=== PATIENT | female | born 1960 | race Caucasian/White ===

== ENCOUNTER → 2016-02-21 | Outpatient (CLI) | payer OTHER ==
[~2016-02-21] MED LIST: ASPI81TA28 PO; AUG0.05O4 EXT; CITA10TA4 PO; CTP/1 PO; ESCI10TA17 PO; INSU100I SC; INSU100I23 SC; INSU100I23 SQ; LEVO88TA3 PO; LISI40TA PO; LORA-741 PO; MAGN400T6 PO; METF1000 PO; METO25TA56 PO; SIMV40TA2 PO; SPR/100 PO
--- NOTE | 2016-02-21 13:29 | DIAGNOSTIC IMAGING REPORT ---
LEFT KNEE 1 OR 2 VIEWS ROUTINE, RIGHT KNEE 1 OR 2 VIEWS ROUTINE CLINICAL HISTORY: BILATERAL KNEE PAIN, LOW BACK PAIN COMPARISON STUDY: None. FINDINGS: No fracture or dislocation within the right or left knee. No knee effusion. Soft tissues are unremarkable. Mild vascular calcifications at the right popliteal artery. Minor cartilage space narrowing within the bilateral knees. IMPRESSION: No fracture or dislocation within the right or left knee. Mild arthritic change. Electronically signed by: Omid Pedroza M.D. 02/21/2016 1:28 PM
--- NOTE | 2016-02-21 13:43 | DIAGNOSTIC IMAGING REPORT ---
L-SPINE MIN 4 VIEWS ROUTINE CLINICAL HISTORY: Low back pain COMPARISON STUDY: No previous studies for comparison. FINDINGS: There are surgical clips within the right upper quadrant. There are 5 lumbar type vertebral bodies present. There are minor degenerative changes. No fractures or subluxations are visualized. No destructive lesions are visualized on conventional radiographic imaging. IMPRESSION: Mild degenerative changes. No fractures, subluxations, or destructive lesions are visualized Electronically signed by: Ross Calix M.D. 02/21/2016 1:40 PM
== END | disposition home or self-care (01) ==
LOC: C.RAD1850 12:50
PROVIDERS: ATTEND Internal Medicine
DX: M25.561 Pain in right knee (principal); M25.562 Pain in left knee; M54.5 Low back pain

== ENCOUNTER → 2016-02-21 | Outpatient (CLI) | payer OTHER ==
[2016-02-21 17:42] LABS: LYME DISEASE AB IGG NEG (NEG); LYME DISEASE AB IGM NEG (NEG)
== END | disposition home or self-care (01) ==
LOC: C.LABBFT 11:46
PROVIDERS: ATTEND Internal Medicine
DX: M79.1 Myalgia (principal); M25.561 Pain in right knee

== ENCOUNTER → 2016-03-18 | Outpatient (CLI) | payer OTHER ==
[2016-03-18 13:55] LABS: ESTIMATED AVERAGE GLUCOSE 192 mg/dl; HA1C FLAG Normal (Normal)
[2016-03-18 16:37] LABS: ALB/GLOB RATIO 0.9 (0.9-2); ALKALINE PHOSPHATASE 94 U/L (45-117); ALT/SGPT 23 U/L (12-78); AST/SGOT 10 U/L (15-37); BLOOD UREA NITROGEN 20 mg/dl (7-18); BUN/CREATININE RATIO 19.5 (10-20); CALCIUM 9.6 mg/dl (8.5-10.1); CARBON DIOXIDE 23 mmol/L (21-32); CHLORIDE 105 mmol/L (98-107); CHOLESTEROL 271 mg/dl (0-200); CHOLESTEROL/HDL RATIO 5.4; GLUCOSE 164 mg/dl (70-99); HDL CHOLESTEROL 50 mg/dl; POTASSIUM 4.5 mmol/L (3.5-5.1); SODIUM 140 mmol/L (136-145); TRIGLYCERIDES 415 mg/dl (0-150)
== END | disposition home or self-care (01) ==
LOC: C.LAB 12:27
PROVIDERS: ATTEND Internal Medicine
DX: E11.65 Type 2 diabetes mellitus with hyperglycemia (principal)

== ENCOUNTER → 2016-05-30 | Outpatient (CLI) | payer OTHER ==
[~2016-05-30] MED LIST changes: -AUG0.05O4 EXT; -CITA10TA4 PO; -INSU100I23 SQ
[2016-06-03 22:57] LABS: ANTI-CENTROMERE AB <1.0 NEG AI (<1.0 NEG); ANTI-SS-A <1.0 NEG AI (<1.0 NEG); ANTI-SS-B <1.0 NEG AI (<1.0 NEG); CYCLIC CITRULLINATED PEPT IGG <16 UNITS (<20); DNA ds CRITHIDIA NEGATIVE (NEGATIVE); GAMMA GLOBULIN 1.2 G/DL (0.8-1.7); IGG SERUM 1127 mg/dL (694-1618); Sm Antibody <1.0 NEG AI (<1.0 NEG); TOTAL PROTEIN 7.6 G/DL (6.2-8.3)
== END | disposition home or self-care (01) ==
LOC: C.LAB1850 08:52
PROVIDERS: ATTEND Internal Medicine Rheumatology
DX: M54.5 Low back pain (principal); R70.0 Elevated erythrocyte sedimentation rate; D89.2 Hypergammaglobulinemia, unspecified

== ENCOUNTER → 2016-08-15 | Outpatient (CLI) | payer OTHER ==
[2016-08-15 12:18] LABS: HEMATOCRIT 40.4 % (37-47); MEAN CELL VOLUME 86.9 fL (80-100); MEAN CORPUSCULAR HEMOGLOBIN 27.7 pg (25-34); MEAN CORPUSCULAR HGB CONC 31.9 g/dl (32-36); MEAN PLATELET VOLUME 11.2 fL (7.4-10.4); PLATELET COUNT 280 K/uL (130-400); RED BLOOD COUNT 4.65 M/uL (4.2-5.4)
[2016-08-15 12:45] LABS: ALT/SGPT 25 U/L (12-78); BLOOD UREA NITROGEN 14 mg/dl (7-18); CARBON DIOXIDE 27 mmol/L (21-32); CHLORIDE 106 mmol/L (98-107); CHOLESTEROL 143 mg/dl (0-200); ESTIMATED AVERAGE GLUCOSE 163 mg/dl; GLUCOSE 113 mg/dl (70-99); HA1C FLAG Normal (Normal); POTASSIUM 3.6 mmol/L (3.5-5.1); SODIUM 140 mmol/L (136-145)
[2016-08-15 12:55] LABS: ALB/GLOB RATIO 0.9 (0.9-2); ALKALINE PHOSPHATASE 101 U/L (45-117); AST/SGOT 15 U/L (15-37); CHOLESTEROL/HDL RATIO 3.2; HDL CHOLESTEROL 45 mg/dl; LDL CHOLESTEROL CALCULATED 61 mg/dl; TRIGLYCERIDES 184 mg/dl (0-150); VERY LOW DENSITY LIPOPROT CALC 37 mg/dl
[2016-08-15 13:14] LABS: RATIO 21.6 mcg/mg (0-30.0)
== END | disposition home or self-care (01) ==
LOC: C.LAB 11:37
PROVIDERS: ATTEND Internal Medicine
DX: E11.65 Type 2 diabetes mellitus with hyperglycemia (principal)

== ENCOUNTER 2016-11-21 09:20 | Observation (INO) | payer OTHER ==
[2016-11-21] VITALS (7 sets, daily range): BP systolic 119–219; BP diastolic 80–110; PULSE 53–112; TEMP 36.6–36.8; O2SAT 95–98; BMI 39.7
[~2016-11-21] VITALS: Ht 154.9 cm; Wt 94.8 kg
[2016-11-21] MEDS ORDERED: LEVO88TA3 PO (10:12)
[2016-11-21] MEDS ORDERED: METO25TA56 PO (10:12)
[2016-11-21] MEDS ORDERED: SPR/100 PO (10:12)
[2016-11-21] MEDS ORDERED: INSU100I23 SC (10:12)
[2016-11-21] MEDS ORDERED: CTP/1 PO (10:12)
[2016-11-21] MEDS ORDERED: ESCI10TA17 PO (10:12)
[2016-11-21] MEDS ORDERED: INSU100I SC (10:12)
[2016-11-21] MEDS ORDERED: SIMV40TA2 PO (10:12)
[2016-11-21] MEDS ORDERED: MAGN400T6 PO (10:12)
[2016-11-21] MEDS ORDERED: LORA-741 PO (10:12)
[2016-11-21] MEDS ORDERED: LISI40TA PO (10:12)
[2016-11-21] MEDS ORDERED: ASPI81TA28 PO (10:12)
[2016-11-21] MEDS ORDERED: METF1000 PO (10:12)
[2016-11-21 10:34] LABS: BASO % 0.2 %; BASO ABS # 0.02 K/uL (0-0.2); COMPLETE YES; EOS % 0.8 %; HEMATOCRIT 42.6 % (37-47); IG% 0.3 %; LYMPH % 18.9 %; LYMPH ABS # 2.12 K/uL (1.2-3.4); MEAN CELL VOLUME 84.9 fL (80-100); MEAN CORPUSCULAR HEMOGLOBIN 28.5 pg (25-34); MEAN CORPUSCULAR HGB CONC 33.6 g/dl (32-36); MONO % 5.2 %; NEUT % 74.6 %; PLATELET COUNT 357 K/uL (130-400); RED BLOOD COUNT 5.02 M/uL (4.2-5.4); WHITE BLOOD COUNT 11.24 K/uL (4.8-10.8)
[2016-11-21 10:40] LABS: INR 0.9 (0.9-1.1); PARTIAL THROMBOPLASTIN RATIO 0.9; PROTHROMBIN TIME (PATIENT) 10.1 SECONDS (9.0-12.0)
[2016-11-21 10:43] LABS: ALT/SGPT 24 U/L (12-78); AST/SGOT 8 U/L (15-37); BLOOD UREA NITROGEN 13 mg/dl (7-18); BUN/CREATININE RATIO 10.6 (10-20); CALCIUM 9.7 mg/dl (8.5-10.1); CARBON DIOXIDE 24 mmol/L (21-32); CHLORIDE 103 mmol/L (98-107); GLUCOSE 209 mg/dl (70-99); SODIUM 136 mmol/L (136-145)
[2016-11-21 10:54] LABS: ALKALINE PHOSPHATASE 97 U/L (45-117)
--- NOTE | 2016-11-21 10:54 | DIAGNOSTIC IMAGING REPORT ---
CHEST ONE VIEW PORTABLE CLINICAL HISTORY: 56 years-old Female presenting with CHEST PAIN. TECHNIQUE: Portable upright AP view of the chest was obtained. COMPARISON: 11/15/2010. FINDINGS: Chronic silhouette enlarged. Lungs and pleural spaces clear. Osseous structures normal. Upper abdomen normal. IMPRESSION: 1. Mild cardiomegaly. Otherwise no acute cardiopulmonary disease. Electronically signed by: Eh Barahona M.D. 11/21/2016 10:53 AM Dictated Date/Time: 11/21/2016 10:44 AM
[2016-11-21] MEDS ORDERED: OPTIRAY 320 IV PRN (12:00)
--- NOTE | 2016-11-21 12:13 | DIAGNOSTIC IMAGING REPORT ---
CT ANGIOGRAM OF THE CHEST CLINICAL HISTORY: Atypical chest pain. COMPARISON STUDY: Chest CT dated 11/15/2010. Chest x-ray dated 11/21/2016. TECHNIQUE: Following the IV administration of 83 cc of Optiray 320, CT angiogram of the chest was performed from the upper abdomen to the thoracic inlet utilizing the pulmonary embolus protocol. Images are reviewed in the axial, sagittal, and coronal planes. 3-D MIPS images are created and assessed. IV contrast was administered without complication. The examination is degraded by large body habitus and by streak artifact from the body wall abutting the CT gantry. The examination is also degraded by motion artifact. A dose lowering technique was utilized adhering to the principles of ALARA. CT DOSE: 710.02 mGy.cm FINDINGS: Thyroid: Imaged portions of the thyroid gland are normal in size and attenuation. Thoracic aorta: There is mild atherosclerotic calcification of the thoracic aorta, which is normal in caliber and demonstrates standard 3-vessel arch anatomy. No dissection is seen. Pulmonary vasculature: The pulmonary trunk is dilated, measuring 3.3 cm in transverse diameter. This suggests pulmonary artery hypertension. There are no filling defects identified in main, lobar, or proximal segmental pulmonary branches to suggest pulmonary embolus. Evaluation of the peripheral vessels is degraded by streak and motion artifact. Heart: The heart is mildly enlarged and there is trace pericardial effusion. Lungs and pleural spaces: Evaluation of the lung parenchyma is degraded by motion artifact. The trachea and central airways are clear. No airspace consolidation or pleural effusion is identified. Mediastinum: There is no mediastinal lymphadenopathy. Sarah: Clear. Axillae: There is no axillary lymphadenopathy. Upper abdomen: Partially visualized upper abdominal viscera is within normal limits. Skeletal structures: The skeletal structures are osteopenic. Mild degenerative change is noted throughout the thoracic spine. No lytic or blastic bony lesions are seen. IMPRESSION: 1. Streak and motion artifact degraded examination. 2. There is no evidence of central pulmonary embolus in the main, lobar, or proximal segmental pulmonary arteries. 3. Cardiac enlargement with evidence of pulmonary artery hypertension. 4. There is no airspace consolidation or pleural effusion Electronically signed by: Lalito Cisse M.D. 11/21/2016 12:12 PM Dictated Date/Time: 11/21/2016 12:06 PM
--- NOTE | 2016-11-21 12:31 | EMERGENCY ROOM VISIT NOTE ---
History Report prepared by Ashleighibgustavo: Alexander Swain Under the Supervision of: Dr. Declan Medina M.D. First contact with patient: 10:09 Chief Complaint: CHEST PAIN Stated Complaint: PAIN AND TIGHTNESS IN CHEST Nursing Triage Summary: CP for a few days. Started on right side, now has moved to left side. Was at [facility] for observation and d/c yesterday. CP developed again this AM. History of Present Illness The patient is a 56 year old female who presents to the Emergency Room with complaints of intermittent chest pain beginning last night. She describes her pain as a feeling of "pressure". She states that most of her pain is on the right side and radiates to the center of her chest. The patient states that her pain is generally present for a few minutes at a time. She also complains of back pain and occasional diaphoresis. She denies any nausea, vomiting, lightheadedness, fever, or cough. She denies any recent falls or injury. The patient was recently admitted to the hospital for similar symptoms and was discharged yesterday. She has no cardiac history of history of blood clots. She is not on any blood thinners. Source of History: patient, other Onset: last night Position: chest (right) Quality: pressure Timing: intermittent Associated Symptoms: + diaphoresis (occasional), + back pain, No fevers, No cough, No nausea, No vomiting Note: The patient denies any lightheadedness. Review of Systems See HPI for pertinent positives & negatives. A total of 10 systems reviewed and were otherwise negative. Past Medical & Surgical Medical Problems: (1) Diabetes (2) HTN (hypertension) Old medical records were reviewed. Nurse's notes were reviewed and I agree with. Family History No pertinent family history stated. Social History Smoking Status: Current Every Day Smoker Drug Use: none Housing Status: lives alone Current/Historical Medications Scheduled Aspirin (Aspirin Ec), 81 MG PO DAILY Clonidine Hcl (Catapres), 0.1 MG PO BID Escitalopram (Lexapro), 10 MG PO DAILY Insulin Glargine (Basaglar Kwikpen), 65 UNITS SC HS Insulin Lispro (Human) (Humalog), 15 UNITS SC TID Levothyroxine Sodium (Levothyroxine Sodium), 88 MCG PO QAM Lisinopril (Zestril), 40 MG PO DAILY Magnesium Oxide (Mag-Ox), 400 MG PO BID Metformin Hcl (Glucophage), 1,000 MG PO BID Metoprolol Tartrate (Lopressor) (Lopressor), 25 MG PO BID Simvastatin (Zocor), 40 MG PO QPM Spironolactone (Aldactone), 50 MG PO BID Scheduled PRN Lorazepam (Ativan), 0.5 MG PO TID PRN for Anxiety Allergies Coded Allergies: No Known Allergies (Unverified , 11/21/16) Physical Exam Vital Signs Date Time Temp Pulse Resp B/P (MAP) Pulse Ox O2 Delivery O2 Flow Rate FiO2 11/21/16 13:22 73 11/21/16 13:15 95 Room Air 11/21/16 13:03 75 156/90 95 Room Air 11/21/16 12:22 79 17 177/100 97 Room Air 11/21/16 11:05 95 16 175/87 96 Room Air 11/21/16 09:54 Room Air 11/21/16 09:51 104 11/21/16 09:24 36.6 97 20 192/91 95 Room Air Physical Exam General: Well developed well nourished in no acute distress, breathing comfortably on room air. Normal speech HEENT: Normal cephalic atraumatic. Pupils are equal round and reactive to light. Sclerae anicteric. Extraocular movements are intact. Oropharynx is pink with moist mucous membranes. No swelling of the mouth lips or tongue. Neck: Supple with a midline trachea. No meningeal signs or stiffness, no JVD or bruits. No Stridor. Chest: Clear to auscultation bilaterally. No wheezes or rhonchi. No increased work of breathing. Heart: regular rate and rhythm. Abdomen: Soft nontender, nondistended without rebound guarding or rigidity. Extremities: No cyanosis clubbing or edema. No calf tenderness or assymetry Spine/Back. Non tender to palpation. No CVA tenderness Skin: Good turgor without rashes. Neurologic exam: Cranial nerves two through 12 are intact. Motor and sensation are intact and symmetrical throughout. Medical Decision & Procedures ER Provider Diagnostic Interpretation: Radiology results as stated below per my review and radiologist interpretation: CHEST ONE VIEW PORTABLE FINDINGS: Chronic silhouette enlarged. Lungs and pleural spaces clear. Osseous structures normal. Upper abdomen normal. IMPRESSION: 1. Mild cardiomegaly. Otherwise no acute cardiopulmonary disease. Electronically signed by: Eh Barahona M.D. 11/21/2016 10:[address] ANGIOGRAM OF THE CHEST FINDINGS: Thyroid: Imaged portions of the thyroid gland are normal in size and attenuation. Thoracic aorta: There is mild atherosclerotic calcification of the thoracic aorta, which is normal in caliber and demonstrates standard 3-vessel arch anatomy. No dissection is seen. Pulmonary vasculature: The pulmonary trunk is dilated, measuring 3.3 cm in transverse diameter. This suggests pulmonary artery hypertension. There are no filling defects identified in main, lobar, or proximal segmental pulmonary branches to suggest pulmonary embolus. Evaluation of the peripheral vessels is degraded by streak and motion artifact. Heart: The heart is mildly enlarged and there is trace pericardial effusion. Lungs and pleural spaces: Evaluation of the lung parenchyma is degraded by motion artifact. The trachea and central airways are clear. No airspace consolidation or pleural effusion is identified. Mediastinum: There is no mediastinal lymphadenopathy. Sarah: Clear. Axillae: There is no axillary lymphadenopathy. Upper abdomen: Partially visualized upper abdominal viscera is within normal limits. Skeletal structures: The skeletal structures are osteopenic. Mild degenerative change is noted throughout the thoracic spine. No lytic or blastic bony lesions are seen. IMPRESSION: 1. Streak and motion artifact degraded examination. 2. There is no evidence of central pulmonary embolus in the main, lobar, or proximal segmental pulmonary arteries. 3. Cardiac enlargement with evidence of pulmonary artery hypertension. 4. There is no airspace consolidation or pleural effusion Electronically signed by: Lalito Cisse M.D. 11/21/2016 12:12 PM Laboratory Results 11/21/16 10:00 Red Blood Count 5.02, Mean Corpuscular Volume 84.9, Mean Corpuscular Hemoglobin 28.5, Mean Corpuscular Hemoglobin Concent 33.6, Mean Platelet Volume 12.0, Neutrophils (%) (Auto) 74.6, Lymphocytes (%) (Auto) 18.9, Monocytes (%) (Auto) 5.2, Eosinophils (%) (Auto) 0.8, Basophils (%) (Auto) 0.2, Neutrophils # (Auto) 8.39, Lymphocytes # (Auto) 2.12, Monocytes # (Auto) 0.59, Eosinophils # (Auto) 0.09, Basophils # (Auto) 0.02 11/21/16 10:00 Test 10/5/17 10:00 11/21/16 10:32 White Blood Count 11.24 K/uL (4.8-10.8) Red Blood Count 5.02 M/uL (4.2-5.4) Hemoglobin 14.3 g/dL (12.0-16.0) Hematocrit 42.6 % (37-47) Mean Corpuscular Volume 84.9 fL (80-100) Mean Corpuscular Hemoglobin 28.5 pg (25-34) Mean Corpuscular Hemoglobin Concent 33.6 g/dl (32-36) Platelet Count 357 K/uL (130-400) Mean Platelet Volume 12.0 fL (7.4-10.4) Neutrophils (%) (Auto) 74.6 % Lymphocytes (%) (Auto) 18.9 % Monocytes (%) (Auto) 5.2 % Eosinophils (%) (Auto) 0.8 % Basophils (%) (Auto) 0.2 % Neutrophils # (Auto) 8.39 K/uL (1.4-6.5) Lymphocytes # (Auto) 2.12 K/uL (1.2-3.4) Monocytes # (Auto) 0.59 K/uL (0.11-0.59) Eosinophils # (Auto) 0.09 K/uL (0-0.5) Basophils # (Auto) 0.02 K/uL (0-0.2) RDW Standard Deviation 41.2 fL (36.4-46.3) RDW Coefficient of Variation 13.4 % (11.5-14.5) Immature Granulocyte % (Auto) 0.3 % Immature Granulocyte # (Auto) 0.03 K/uL (0.00-0.02) Prothrombin Time 10.1 SECONDS (9.0-12.0) Prothromb Time International Ratio 0.9 (0.9-1.1) Activated Partial Thromboplast Time 22.2 SECONDS (21.0-31.0) Partial Thromboplastin Ratio 0.9 Anion Gap 9.0 mmol/L (3-11) Est Creatinine Clear Calc Drug Dose 54.5 ml/min Estimated GFR () 58.1 Estimated GFR (Non- 50.1 BUN/Creatinine Ratio 10.6 (10-20) Calcium Level 9.7 mg/dl (8.5-10.1) Total Bilirubin 0.4 mg/dl (0.2-1) Direct Bilirubin < 0.1 mg/dl (0-0.2) Aspartate Amino Transf (AST/SGOT) 8 U/L (15-37) Alanine Aminotransferase (ALT/SGPT) 24 U/L (12-78) Alkaline Phosphatase 97 U/L (45-117) Total Creatine Kinase 38 U/L (26-192) Creatine Kinase MB < 0.5 ng/ml (0.5-3.6) Creatine Kinase MB Ratio (0-3.0) Total Protein 8.2 gm/dl (6.4-8.2) Albumin 3.9 gm/dl (3.4-5.0) Lipase 118 U/L (73-393) Thyroid Stimulating Hormone (TSH) 1.250 uIu/ml (0.300-4.500) Bedside Troponin I < 0.030 ng/ml (0-0.045) Laboratory studies as stated above per my review. ECG Indication: chest pain Rate (beats per minute): 93 Rhythm: normal sinus Findings: no ectopy, other (Non-specific ST abnormality. No ST segment elevations. ) Comparison ECG Date: no prior available ED Course 1010: Past medical records reviewed. The patient was evaluated in room B3B, and a complete history and physical examination were performed. 1132: I reassessed the patient. She is still having pain. She agreed to a CT scan. 1210: Upon reevaluation, the patient is resting comfortably. I discussed the results and treatment plan with the patient. She verbalized agreement of the treatment plan. The patient will be evaluated for further management. Medical Decision Differentials include, but are not limited to; acute coronary syndrome, arrhythmia, hypertensive emergency, GERD, PE, CHF, and electrolyte or metabolic abnormality. This patient comes in as described above. She's had chest pain starting today. Talked to the patient and she's had this off and on for the last week or so. She was actually hospitalized in [place] for the last 2 days and was discharged yesterday apparently they did not do any provocative testing. She does not think do a a CAT scan of her chest either. She appears okay of present and has no pain. IV access established. EKG and chest x-ray obtained. She has nothing to suggest acute coronary syndrome or arrhythmia. Chest x- ray was unremarkable. I did a chest CT. there is no evidence of PE or other pathology. She does have several cardiac risk factors. I do think she needs to be further ruled out for an acute coronary syndrome have likely stress testing. I have consulted the [facility] hospitalist and she was seen in the ER by Dr. Ring.. Medication Reconcilliation Current Medication List: was personally reviewed by me Blood Pressure Screening Patient's blood pressure: Elevated blood pressure Blood pressure disposition: Referred to PCP Consults Time Called: 1154 Consulting Physician: Dr. Ring -[facility] Returned Call: [phone] Discussed the patient's case. The patient will be evaluated for further management. Impression Primary Impression: Left sided chest pain Scribe Attestation The scribe's documentation has been prepared under my direction and personally reviewed by me in its entirety. I confirm that the note above accurately reflects all work, treatment, procedures, and medical decision making performed by me. Departure Information Dispostion Being Evaluated By Hospitalist Referrals Prashant Pina M.D. (PCP) Patient Instructions My [facility]
[2016-11-21] MEDS ORDERED: GLUCOSE 40% GEL 15 GM TUBE PO PRN (13:30)
[2016-11-21] MEDS ORDERED: LORAZEPAM 0.5 MG TAB PO PRN (13:30)
[2016-11-21] MEDS ORDERED: MAGNESIUM HYDROXIDE SUSP 30 ML UDC PO PRN (13:30)
[2016-11-21] MEDS ORDERED: ONDANSETRON INJ 2 MG/ML 2 ML VIAL IV PRN (13:30)
[2016-11-21] MEDS ORDERED: DEXTROSE 50% 50 ML SYR IV PRN (13:30)
[2016-11-21] MEDS ORDERED: NITROGLYCERIN 0.4 MG SL PER TAB CHARGE SL PRN (13:30)
[2016-11-21] MEDS ORDERED: GLUCAGON FOR INJ 1 MG VIAL SQ PRN (13:30)
[2016-11-21] MEDS ORDERED: GLUCOSE 10 TABS/TUBE PO PRN (13:30)
--- NOTE | 2016-11-21 13:50 | History and Physical ---
History & Physical Date & Time of Service: Nov 21, 2016 at 13:30 Chief Complaint: Pain And Tightness In Chest Primary Care Physician: Prashant Pina M.D. History of Present Illness Source: patient 56 y/o F c/o chest pain. Pt states she has been having chest pain on and off since . She was hospitalized 11/04-11/11 for hypoK and elevated BP at [facility]. She was then readmitted for observation there from for chest pain. At that time, it was more to the R of her sternum. At time of d/c yesterday she had not had further chest pain. She states she tried to sleep last night, but was restless. She woke up around 2-3am with chest pain that started to the R of her sternum but then moved more towards the L and her back. Prior to , pt has not had chest pain. She feels her breathing is "tight" but no SOB and states that she has no issues walking up stairs. Pt denies fever, abd pain, n/v/c/d, LE pain or swelling. Pt states that they checked her labs at [place] and she was told it was fine. She does not believe she had any sort of ECHO or stress testing during her admissions or in her hx. She does not have chest pain at time of exam. She states that she could walk on a treadmill for a stress test. Pt states she is very concerned about her BS. She states that many changes have been made to her regimen between the hospitalization and her f/u PCP visit. She states she checks her sugars daily and "they are up and down". She is most concerned because her BS was 39 over the weekend (this was at home). She states it is hard to control when she drinks soda. Pt states that she had been trying to quit smoking recently. She has not had a cigarette since her admission starting 11/04. She states she did not have a nicotine patch during her admission and is fine without this. Past Medical/Surgical History Medical Problems: (1) Diabetes Status: Chronic (2) HTN (hypertension) Status: Chronic Depression/anxiety Hypothyroid Hyperlipidemia Recent admission for hypoK and HTN Recent observation 10/20-10/21 for chest pain Family History Denies hx of AK Social History Smoking Status: Former Smoker (quit mid-October) Alcohol Use: occasionally (maybe 1 drink/month) Drug Use: none Multi-Drug Resistant Organisms History of MDRO: No Allergies Coded Allergies: No Known Allergies (Unverified , 11/21/16) Home Medications Scheduled Aspirin (Aspirin Ec), 81 MG PO DAILY Clonidine Hcl (Catapres), 0.1 MG PO BID Escitalopram (Lexapro), 10 MG PO DAILY Insulin Glargine (Basaglar Kwikpen), 65 UNITS SC HS Insulin Lispro (Human) (Humalog), 15 UNITS SC TID Levothyroxine Sodium (Levothyroxine Sodium), 88 MCG PO QAM Lisinopril (Zestril), 40 MG PO DAILY Magnesium Oxide (Mag-Ox), 400 MG PO BID Metformin Hcl (Glucophage), 1,000 MG PO BID Metoprolol Tartrate (Lopressor) (Lopressor), 25 MG PO BID Simvastatin (Zocor), 40 MG PO QPM Spironolactone (Aldactone), 50 MG PO BID Scheduled PRN Lorazepam (Ativan), 0.5 MG PO TID PRN for Anxiety Review of Systems Pertinent positives and negatives reviewed in HPI--all others negative Physical Exam Vital Signs Date Time Temp Pulse Resp B/P (MAP) Pulse Ox O2 Delivery O2 Flow Rate FiO2 11/21/16 13:22 73 11/21/16 13:03 75 156/90 95 Room Air 11/21/16 12:22 79 17 177/100 97 Room Air 11/21/16 11:05 95 16 175/87 96 Room Air 11/21/16 09:54 Room Air 11/21/16 09:51 104 11/21/16 09:24 36.6 97 20 192/91 95 Room Air General Appearance: no apparent distress, + obese Head: normocephalic, atraumatic Eyes: normal inspection, EOMI ENT: hearing grossly normal Neck: supple Respiratory/Chest: normal breath sounds, no respiratory distress Cardiovascular: regular rate, rhythm, no edema Abdomen/GI: non tender, soft Extremities/Musculoskelatal: no calf tenderness, no pedal edema Neurologic/Psych: alert, normal mood/affect, oriented x 3 Skin: normal color, warm/dry Diagnostics Laboratory Results Results Past 24 Hours Test 11/21/16 10:00 11/21/16 10:32 Range/Units White Blood Count 11.24 4.8-10.8 K/uL Red Blood Count 5.02 4.2-5.4 M/uL Hemoglobin 14.3 12.0-16.0 g/dL Hematocrit 42.6 37-47 % Mean Corpuscular Volume 84.9 80-100 fL Mean Corpuscular Hemoglobin 28.5 25-34 pg Mean Corpuscular Hemoglobin Concent 33.6 32-36 g/dl Platelet Count 357 130-400 K/uL Mean Platelet Volume 12.0 7.4-10.4 fL Neutrophils (%) (Auto) 74.6 % Lymphocytes (%) (Auto) 18.9 % Monocytes (%) (Auto) 5.2 % Eosinophils (%) (Auto) 0.8 % Basophils (%) (Auto) 0.2 % Neutrophils # (Auto) 8.39 1.4-6.5 K/uL Lymphocytes # (Auto) 2.12 1.2-3.4 K/uL Monocytes # (Auto) 0.59 0.11-0.59 K/uL Eosinophils # (Auto) 0.09 0-0.5 K/uL Basophils # (Auto) 0.02 0-0.2 K/uL RDW Standard Deviation 41.2 36.4-46.3 fL RDW Coefficient of Variation 13.4 11.5-14.5 % Immature Granulocyte % (Auto) 0.3 % Immature Granulocyte # (Auto) 0.03 0.00-0.02 K/uL Prothrombin Time 10.1 9.0-12.0 SECONDS Prothromb Time International Ratio 0.9 0.9-1.1 Activated Partial Thromboplast Time 22.2 21.0-31.0 SECONDS Partial Thromboplastin Ratio 0.9 Sodium Level 136 136-145 mmol/L Potassium Level 4.0 3.5-5.1 mmol/L Chloride Level 103 98-107 mmol/L Carbon Dioxide Level 24 21-32 mmol/L Anion Gap 9.0 3-11 mmol/L Blood Urea Nitrogen 13 7-18 mg/dl Creatinine 1.20 0.60-1.20 mg/dl Est Creatinine Clear Calc Drug Dose 54.5 ml/min Estimated GFR () 58.1 Estimated GFR (Non- 50.1 BUN/Creatinine Ratio 10.6 10-20 Random Glucose 209 70-99 mg/dl Calcium Level 9.7 8.5-10.1 mg/dl Total Bilirubin 0.4 0.2-1 mg/dl Direct Bilirubin < 0.1 0-0.2 mg/dl Aspartate Amino Transf (AST/SGOT) 8 15-37 U/L Alanine Aminotransferase (ALT/SGPT) 24 12-78 U/L Alkaline Phosphatase 97 45-117 U/L Total Creatine Kinase 38 26-192 U/L Creatine Kinase MB < 0.5 0.5-3.6 ng/ml Creatine Kinase MB Ratio 0-3.0 Total Protein 8.2 6.4-8.2 gm/dl Albumin 3.9 3.4-5.0 gm/dl Lipase 118 73-393 U/L Thyroid Stimulating Hormone (TSH) 1.250 0.300-4.500 uIu/ml Bedside Troponin I < 0.030 0-0.045 ng/ml Microbiology Results 11/21/16 Blood Culture, Received Pending 11/21/16 Blood Culture, Received Pending Diagnostic Radiology CXR neg for acute Impression Assessment and Plan 56 y/o F who was admitted for observation on 11/21 for chest pain. Chest pain: recent obs for same at [place], d/c 11/20 Pain is different at this time Trop neg, serials pending If neg, would proceed with stress ECHO as this was not done with prior hospitalizations per pt EKG WNL CTA neg for PE, concern for pulm HTN which can be further delineated with ECHO DM: SSI with HS glargine as at home A1c pending DM educator c/s pending given pt's current confusion about home regimen Notes that BS is hardest to control with soda and I did advise her regarding soda use and DM HTN: recent admission for uncontrolled HTN Monitor on home meds HypoK: recent admission for this, WNL now Monitor Hypothyroid: TSH WNL continue home meds Hyperlipidemia: continue home meds Lipids pending Depression/anxiety: continue home meds Other: Full code DM/AHA diet SCDs and ambulation for DVT proph given likely short duration of admission Level of Care Telemetry Resuscitation Status FULL RESUSCITATION VTE Prophylaxis VTE Risk Assessment Done? Y/N: Yes Risk Level: Low
[2016-11-21] MEDS ORDERED: ACETAMINOPHEN 325 MG TAB ONE (14:18)
[2016-11-21] MEDS: METFORMIN HCL 500 MG TAB PO SCH (17:18)
[2016-11-21] MEDS: SPIRONOLACTONE 100 MG TAB PO SCH (17:20)
[2016-11-21] MEDS: INSULIN ASPART 100 UNITS/ML 3 ML PEN SC SCH ×2 (17:55→20:39)
[2016-11-21] MEDS ORDERED: INFLUENZA ADMINISTRATION CHARGE ONE (18:00)
[2016-11-21] MEDS ORDERED: INFLUENZA VIRUS QUAD VACCINE 0.5 ML SYR IM. ONE (18:00)
[2016-11-21] MEDS: METOPROLOL TARTRATE 25 MG TAB PO SCH (19:38)
[2016-11-21] MEDS: CLONIDINE HCL 0.1 MG TAB PO SCH (19:39)
[2016-11-21] MEDS: MAGNESIUM OXIDE 400 MG TAB PO SCH (19:40)
[2016-11-21] MEDS ORDERED: SIMVASTATIN 40 MG TAB PO SCH (21:00)
[2016-11-21] MEDS ORDERED: INSULIN GLARGINE SOLOSTAR 100 UNITS/ML 3 ML PEN SC SCH (21:00)
[2016-11-21] MEDS: ACETAMINOPHEN 325 MG TAB PO PRN (21:01)
[2016-11-22] VITALS (7 sets, daily range): BP systolic 116–193; BP diastolic 77–92; PULSE 67–89; TEMP 36.7–37; O2SAT 96–98; Ht 154.9 cm; Wt 94.8 kg
[2016-11-22] MEDS ORDERED: HydrALAZINE HCL 20 MG/ML VIAL IV. PRN (00:15)
[2016-11-22] MEDS: LORAZEPAM 0.5 MG TAB PO PRN ×2 (00:15→14:38)
[2016-11-22] MEDS ORDERED: METOPROLOL TARTRATE 1 MG/ML VIAL IV. PRN (00:15)
[2016-11-22] MEDS ORDERED: METOPROLOL TARTRATE 1 MG/ML VIAL IV PRN (01:00)
[2016-11-22] MEDS ORDERED: LEVOTHYROXINE 88 MCG TAB PO SCH (06:30)
[2016-11-22 07:22] LABS: BUN/CREATININE RATIO 13.6 (10-20); CALCIUM 9.9 mg/dl (8.5-10.1); CREATININE 1.2 mg/dl (0.60-1.20); POTASSIUM 4.1 mmol/L (3.5-5.1)
[2016-11-22 07:24] LABS: CHOLESTEROL/HDL RATIO 2.5
[2016-11-22] MEDS: SPIRONOLACTONE 100 MG TAB PO SCH ×2 (08:06→17:45)
[2016-11-22] MEDS: MAGNESIUM OXIDE 400 MG TAB PO SCH (08:06)
[2016-11-22] MEDS: METFORMIN HCL 500 MG TAB PO SCH ×2 (08:07→17:46)
[2016-11-22] MEDS: METOPROLOL TARTRATE 25 MG TAB PO SCH (08:07)
[2016-11-22] MEDS: CLONIDINE HCL 0.1 MG TAB PO SCH (08:07)
[2016-11-22] MEDS: ACETAMINOPHEN 325 MG TAB PO PRN (08:08)
[2016-11-22] MEDS: INSULIN ASPART 100 UNITS/ML 3 ML PEN SC SCH ×3 (08:13→17:49)
[2016-11-22] MEDS ORDERED: ESCITALOPRAM OXALATE 10 MG TAB PO SCH (09:00)
[2016-11-22] MEDS ORDERED: ASPIRIN 81 MG ECTAB PO SCH (09:00)
[2016-11-22] MEDS ORDERED: LISINOPRIL 40 MG TAB PO SCH (09:00)
[2016-11-22] MEDS ORDERED: PERFLUTREN LIPID MICROSPHERE (DEFINITY) IV ONE (11:12)
--- NOTE | 2016-11-22 12:01 | EXERCISE STRESS ECHO ---
*NOTICE TO RECEIVING CONSTITUTION PARTY AGENCY This information is strictly Confidential and protected under [place] law. [place] law prohibits you from making any further disclosure of this information unless further disclosure is expressly permitted by the written consent of the person to whom it pertains or is authorized by law. A general authorization for the release of medical or other information is not sufficient for this purpose. Hospital accepts no responsibility if the information is made available to any other person, INCLUDING THE PATIENT. Interpretation Summary * Name: ELIAN SORENSEN Study Date: 11/22/2016 09:41 AM BP: 146/86 mmHg * Patient Location: [facility]\S\N284\S\2 HR: 64 * : 1960 (M/d/yyy) Gender: Female Height: 61 in * Age: 56 yrs Ethnicity: [place] Weight: 209 lb * Ordering Physician: Leslie Ring * Referring Physician: Self, Referred * Performed By: Angela Phillips RDCS * * Reason For Study: CHEST PAIN * BSA: 1.9 m2 * -- Conclusions -- * Stress Echo: * 1. Nondiagnostic stress echo images as target heart rate was not attained. There were no ischemic changes noted at 71% MPHR. Cannot rule out ischemic changes at faster heart rates. * 2. Nondiagnostic exercise ECG as target heart rate was not attained. * 3. Hypertensive blood pressure response to exercise. Diastolic blood pressure increased to 109 mmHg. * 4. No arrhythmia. * 5. Study terminated due to dyspnea. No chest pain reported. * 6. Poor exercise tolerance. * 7. Technically difficult study, enhanced with IV Definity. * Echo: * 1. Normal left ventricular size and systolic function. EF 60-65%. No regional wall motion abnormalities. Mild concentric left ventricular hypertrophy. Type 1 diastolic dysfunction. * 2. No significant valvular abnormalities. Procedure Details * A contrast injection of Definity was performed to improve assessment of LV function. * Contrast was injected into an intravenous site in the right arm. * One vial of Definity ultrasound contrast was diluted in normal saline to a total volume of 10 ml. A total of '4' ml of solution was administered during imaging. * Lot # [id number] of Definity utilized for procedure. * Expiration date DEC 04. * The attending nurse who injected the contrast agent was JAZ HAQ RN. Left Ventricle * The left ventricle is normal in size. * There is mild concentric left ventricular hypertrophy. * Ejection Fraction = 60-65%. * Left ventricular systolic function is normal. * Resting wall motion: Normal. Stress wall motion: Appropriate increase in Left ventricular systolic function and decrease in cavity size. No stress induced segmental wall motion abnormalities. * The left ventricular ejection fraction increases normally with stress. The left ventricular end-systolic cavity size reduces post-stress (normal response). The left ventricular wall motion with stress is normal. Right Ventricle * The right ventricle is normal in size and function. * The right ventricular systolic function is normal as assessed by tricuspid annular plane systolic excursion (TAPSE) (normal >1.5 cm). Atria * The left atrial size is normal. * Right atrial size is normal. * There is no evidence of atrial septal defect, but resolution does not allow assessment for a patent foramen ovale. Mitral Valve * The mitral valve is grossly normal. * There is no mitral valve stenosis. * Significant mitral regurgitation is absent. Tricuspid Valve * The tricuspid valve is not well visualized, but is grossly normal. * There is no tricuspid stenosis. * Significant tricuspid regurgitation is absent. Aortic Valve * The aortic valve is trileaflet. * No hemodynamically significant valvular aortic stenosis. * No aortic regurgitation is present. Pulmonic Valve * The pulmonary valve is inadequately visualized, but the Doppler data is adequate for interpretation. * Trace pulmonic valvular regurgitation. Great Vessels * The aortic root is normal size. * Ascending aorta of normal dimension * Normal IVC size and inspiratory collapse. Pericardium * There is no pericardial effusion. Stress Parameters * NSR at 68 bpm. * Stress ECG: No ST changes. No arrhythmias. * T-wave inversion noted with exercise in leads II, III, aVF, V3 - V6. * The stress portion of this study was personally supervised by the undersigned interpreting physician. * Rest heart rate was '64' BPM. * Rest blood pressure was '146/86 mmHg' * Maximum heart rate achieved was 117 bpm. * Maximum heart rate was 71 % of maximum age-predicted heart rate. * Total exercise time was '3:15' * Maximum blood pressure was '182/109 mmHg' * Maximum exercise MET level achieved was '4.8' METS * Exercise was terminated due to 'dyspnea' Left Ventricular Diastolic Function * Grade I diastolic dysfunction, (abnormal relaxation pattern). MMode 2D Measurements and Calculations IVSd 1.3 cm IVSs 2.1 cm LVIDd 3.7 cm LVIDs 2.3 cm LVPWd 1.3 cm LVPWs 1.8 cm IVS/LVPW 0.98 FS 37.0 % EDV(Teich) 56.4 ml ESV(Teich) 18.1 ml EF(Teich) 67.8 % EDV(cubed) 48.7 ml ESV(cubed) 12.2 ml EF(cubed) 75.0 % % IVS thick 63.7 % % LVPW thick 42.0 % LV mass(C)d 158.2 grams LV mass(C)dI 82.2 grams/m\S\2 LV mass(C)s 187.7 grams LV mass(C)sI 97.5 grams/m\S\2 SV(Teich) 38.2 ml SI(Teich) 19.9 ml/m\S\2 SV(cubed) 36.5 ml SI(cubed) 19.0 ml/m\S\2 Ao root diam 3.0 cm Ao root area 7.3 cm\S\2 LA dimension 2.9 cm asc Aorta Diam 2.3 cm LA/Ao 0.96 LVAd ap4 28.2 cm\S\2 LVLd ap4 7.1 cm EDV(MOD-sp4) 91.0 ml EDV(sp4-el) 95.1 ml LVAs ap4 13.9 cm\S\2 LVLs ap4 5.2 cm ESV(MOD-sp4) 30.4 ml ESV(sp4-el) 31.1 ml EF(MOD-sp4) 66.6 % EF(sp4-el) 67.3 % LVAd ap2 29.1 cm\S\2 LVLd ap2 7.5 cm EDV(MOD-sp2) 93.9 ml EDV(sp2-el) 96.3 ml LVAs ap2 17.4 cm\S\2 LVLs ap2 6.3 cm ESV(MOD-sp2) 40.0 ml ESV(sp2-el) 41.0 ml EF(MOD-sp2) 57.4 % EF(sp2-el) 57.5 % LVLd %diff 2.1 % EDV(MOD-bp) 96.8 ml LVLs %diff 16.5 % ESV(MOD-bp) 38.0 ml EF(MOD-bp) 60.7 % SV(MOD-sp4) 60.6 ml SI(MOD-sp4) 31.5 ml/m\S\2 SV(MOD-sp2) 53.9 ml SI(MOD-sp2) 28.0 ml/m\S\2 SV(MOD-bp) 58.8 ml SI(MOD-bp) 30.6 ml/m\S\2 SV(sp4-el) 64.0 ml SI(sp4-el) 33.2 ml/m\S\2 SV(sp2-el) 55.4 ml SI(sp2-el) 28.8 ml/m\S\2 Doppler Measurements and Calculations MV E max darrell 50.4 cm/sec MV A max darrell 60.1 cm/sec MV E/A 0.84 MV dec time 0.31 sec Ao V2 max 149.9 cm/sec Ao max PG 9.0 mmHg Ao max PG (full) 4.6 mmHg LV V1 max PG 4.4 mmHg LV V1 max 104.5 cm/sec TV E max darrell 43.2 cm/sec
--- NOTE | 2016-11-22 15:25 | Discharge Instructions ---
Discharge Instructions Date of Service Nov 22, 2016. Admission Reason for Admission: Left Sided Chest Pain Discharge Discharge Diagnosis / Problem: chest pain, negative stress test for heart attack or strain Discharge Goals Goal(s): Diagnostic testing, Therapeutic intervention Activity Recommendations Activity Limitations: resume your previous activity . Current Hospital Diet Patient's current hospital diet: AHA Diet (Heart Healthy), Diabetes Type 2 Diet Discharge Diet Recommended Diet: Low Sodium Diet (2gm Na), Diabetes Type 2 Diet Pending Studies Studies pending at discharge: no Laboratory Results Hemoglobin A1c Test 11/22/16 06:27 Range/Units Estimated Average Glucose 171 mg/dl Hemoglobin A1c 7.6 H 4.5-5.6 % Lipid Panel Test 11/22/16 06:27 Range/Units Triglycerides Level 209 H 0-150 mg/dl Cholesterol Level 129 0-200 mg/dl HDL Cholesterol 52 mg/dl Cholesterol/HDL Ratio 2.5 LDL Cholesterol, Calculated 35 mg/dl Medical Emergencies . Who to Call and When: Medical Emergencies: If at any time you feel your situation is an emergency, please call 911 immediately. . Non-Emergent Contact Non-Emergency issues call your: Primary Care Provider Call Non-Emergent contact if: temperature is above 101, your pain is unusual for you . . "Provider Documentation" section prepared by Remy Samson. . Patrol Officer Recommendations Patrol Officer Recommendations: Please follow up with Dr Pina to continue to work on reducing your cardiovascular risk factors, these should first include stopping smoking and having better control of your diabetes, eat a healthy low salt diet and avoid caffiene. These maneuvers may have a good impact on reducing your blood pressure VTE Core Measure Inpt VTE Proph given/why not?: Unfractionated heparin SQ
--- NOTE | 2016-11-22 15:28 | Discharge Instructions ---
Discharge Instructions Date of Service Nov 22, 2016. Admission Reason for Admission: Left Sided Chest Pain Discharge Discharge Diagnosis / Problem: chest pain, negative stress test Discharge Goals Goal(s): Diagnostic testing, Therapeutic intervention Activity Recommendations Activity Limitations: resume your previous activity . Instructions / Follow-Up Instructions / Follow-Up follow up with Dr Pina 11/25/16 Current Hospital Diet Patient's current hospital diet: AHA Diet (Heart Healthy), Diabetes Type 2 Diet Discharge Diet Recommended Diet: AHA Diet (Heart Healthy), Diabetes Type 2 Diet Pending Studies Studies pending at discharge: no Laboratory Results Hemoglobin A1c Test 11/22/16 06:27 Range/Units Estimated Average Glucose 171 mg/dl Hemoglobin A1c 7.6 H 4.5-5.6 % Lipid Panel Test 11/22/16 06:27 Range/Units Triglycerides Level 209 H 0-150 mg/dl Cholesterol Level 129 0-200 mg/dl HDL Cholesterol 52 mg/dl Cholesterol/HDL Ratio 2.5 LDL Cholesterol, Calculated 35 mg/dl Medical Emergencies . Who to Call and When: Medical Emergencies: If at any time you feel your situation is an emergency, please call 911 immediately. . Non-Emergent Contact Non-Emergency issues call your: Primary Care Provider Call Non-Emergent contact if: temperature is above 101, your pain is unusual for you . . "Provider Documentation" section prepared by Remy Samson. . VTE Core Measure Inpt VTE Proph given/why not?: Unfractionated heparin SQ
--- NOTE | 2016-11-22 18:37 | Discharge Summary ---
Discharge Summary Date of Service Nov 22, 2016. Discharge Summary Admission Date: Nov 21, 2016 at 13:28 Discharge Date: Nov 22, 2016 Discharge Disposition: Home with services Principal Diagnosis: non ischemic chest pain Procedures: stress echo, did not reach 85% mphr, but did not have any RWMA and did have good augmentation of contractility, stopped due to deconditioning Medication Reconciliation Continued Medications: Aspirin (Aspirin Ec) 81 Mg Tab 81 MG PO DAILY Clonidine Hcl (Catapres) 0.1 Mg Tab 0.1 MG PO BID, TAB Escitalopram (Lexapro) 10 Mg Tab 10 MG PO DAILY, TAB Insulin Glargine (Basaglar Kwikpen) 100 Unit/Ml Inj 65 UNITS SC HS Insulin Lispro (Human) (Humalog) 100 Unit/Ml Inj 15 UNITS SC TID Levothyroxine Sodium (Levothyroxine Sodium) 88 Mcg Tab 88 MCG PO QAM for 90 Days, #90 TAB 3 Refills Lisinopril (Zestril) 40 Mg Tab 40 MG PO DAILY, TAB Lorazepam (Ativan) 0.5 Mg Tab 0.5 MG PO TID PRN for Anxiety, TAB Magnesium Oxide (Mag-Ox) 400 Mg Tab 400 MG PO BID, TAB Metformin Hcl (Glucophage) 1,000 Mg Tab 1000 MG PO BID, TAB Metoprolol Tartrate (Lopressor) (Lopressor) 25 Mg Tab 25 MG PO BID, TAB Simvastatin (Zocor) 40 Mg Tab 40 MG PO QPM, TAB Spironolactone (Aldactone) 100 Mg Tab 50 MG PO BID, TAB Discharge Exam Review of Systems: Constitutional: No fever, No chills Respiratory: No cough, No sputum, No shortness of breath, No dyspnea on exertion Cardiovascular: No chest pain, No orthopnea, No edema Abdomen: No pain, No nausea, No diarrhea Physical Exam: General Appearance: WD/WN, + mild distress Neck: supple, no JVD Respiratory/Chest: chest non-tender, lungs clear, normal breath sounds Cardiovascular: regular rate, rhythm, no murmur Extremities: no pedal edema, normal range of motion Neurologic/Psychiatric: alert, oriented x 3 Hospital Course 56 y/o F presents with chest pain, has negative troponins, history of moderately controlled DM and smoking Chest pain: negative troponins, stress ECHO no RWMA, good contractility augmentation CTA neg for PE, concern for pulm HTN . I did speak to Dr Pina and have appointment made for next week DM: SSI with HS glargine as at home and metformin, given education for better diet A1c 7.6 DM educator c/s pending given pt's current confusion about home regimen HypoKalemia, replete Hypothyroid: TSH WNL Hyperlipidemia:will need to control for cardiovascular risk reduction tobacco cessation counselling Depression/anxiety: may play a role in chest pain Total Time Spent: Greater than 30 minutes This includes examination of the patient, discharge planning, medication reconciliation, and communication with other providers. Discharge Instructions Please refer to the electronic Patient Visit Report (Discharge Instructions) for additional information.
== END 2016-11-22 18:02 | disposition home or self-care (01) ==
LOC: C.EDB 09:21 → C.MED 13:28 → ENRESERV 13:48
PROVIDERS: ADMIT Family Medicine; ATTEND Internal Medicine
DX: R07.89 Other chest pain (principal); I10 Essential (primary) hypertension; E11.9 Type 2 diabetes mellitus without complications; E03.9 Hypothyroidism, unspecified; E78.5 Hyperlipidemia, unspecified; E87.6 Hypokalemia; F32.9 Major depressive disorder, single episode, unspecified; Z87.891 Personal history of nicotine dependence; Z79.82 Long term (current) use of aspirin; Z79.4 Long term (current) use of insulin

== ENCOUNTER → 2017-01-08 | Outpatient (CLI) | payer OTHER ==
[~2017-01-08] MED LIST changes: +OPTIRAY 320 IV PRN
--- NOTE | 2017-01-08 14:32 | DIAGNOSTIC IMAGING REPORT ---
CT HEAD COMBO CT DOSE: 1459.56 mGycm TECHNIQUE: Noncontrast images were obtained through the brain in the axial plane. The sequence was repeated following administration of 95 Optiray 320. A dose lowering technique was utilized adhering to the principles of ALARA. HISTORY: R41.82 Change in mental status COMPARISON: None. FINDINGS: No intra or extra-axial mass lesions are visualized. There is no CT evidence of acute cortical infarction. There is no evidence of midline shift. There is no acute hemorrhage. No calvarial fractures are visualized. There is no evidence of pathologic ventricular dilatation. There is no evidence of acute sinusitis Postcontrast images reveal no pathologically enhancing masses. IMPRESSION: Normal head CT for age. Electronically signed by: Ross Calix M.D. 01/08/2017 2:31 PM Dictated Date/Time: 01/08/2017 2:29 PM
== END | disposition home or self-care (01) ==
LOC: C.CTS 13:55
PROVIDERS: ATTEND Internal Medicine
DX: R41.82 Altered mental status, unspecified (principal)

== ENCOUNTER 2017-02-20 11:14 | Inpatient (IN) | payer OTHER ==
[~2017-02-20] VITALS: Ht 154.9 cm; Wt 92.0 kg
[~2017-02-20 11:14] MED LIST changes: -OPTIRAY 320 IV PRN
--- NOTE | 2017-02-20 11:37 | EMERGENCY ROOM VISIT NOTE ---
History Report prepared by Nasrin: Franky Irving Under the Supervision of: Dr. John Preciado M.D. First contact with patient: 11:21 Chief Complaint: MENTAL HEALTH EVALUATION Stated Complaint: MENTAL HEALTH,DOC REFERRED,PT IS DIABETIC History of Present Illness The patient is a 56 year old female who presents to the Emergency Room with complaints of depression that began 4 months ago. The patient has recently become preoccupied with her diabetes and states she has increased worry over her managing her blood sugar. The patient denies homicidal ideation and auditory hallucinations. Of note, her current episode is similar to baseline. The patient denies fevers, chills, cough, congestion, nausea, and vomiting. Pt denies LOC, headache, fevers, chills, diaphoresis, visual changes, neck pain , chest pain, breathing difficulties, nausea, vomiting, abdominal pain, back pain, melena, hematochezia, urinary symptoms, numbness, weakness, lymphadenopathy, rash, or other complaints. Source of History: patient Onset: 4 months ago Position: other (global ) Timing: constant Associated Symptoms: No fevers, No chills, No cough, No nausea, No vomiting Note: Pt denies homicidal ideation and suicidal ideation. Review of Systems See HPI for pertinent positives and negatives. A total of ten systems were reviewed and were otherwise negative. Past Medical & Surgical Medical Problems: (1) Diabetes (2) HTN (hypertension) Social History Smoking Status: Never Smoker Drug Use: none Housing Status: lives alone Current/Historical Medications Scheduled Aspirin (Aspirin Ec), 81 MG PO DAILY Betamethasone Dip Aug 0.05% (Diprolene 0.05%), 0 EXT BID Citalopram Hydrobromide (Citalopram Hydrobromide), 1 TAB PO DAILY Insulin Glargine (Basaglar Kwikpen), 25 UNIT SQ HS Insulin Lispro (Human) (Humalog), 10 UNITS SC TIDM Levothyroxine Sodium (Levothyroxine Sodium), 88 MCG PO QAM Lisinopril (Zestril), 40 MG PO DAILY Metformin Hcl (Glucophage), 1,000 MG PO BID Metoprolol Tartrate (Lopressor) (Lopressor), 25 MG PO BID Simvastatin (Zocor), 40 MG PO QPM Spironolactone (Aldactone), 50 MG PO DAILY Scheduled PRN Lorazepam (Ativan), 0.5 MG PO TID PRN for Anxiety Allergies Coded Allergies: No Known Allergies (Unverified , 02/20/17) Physical Exam Vital Signs Date Time Temp Pulse Resp B/P (MAP) Pulse Ox O2 Delivery O2 Flow Rate FiO2 02/20/17 12:37 61 17 146/82 95 Room Air 02/20/17 11:16 36.6 73 20 145/89 96 Room Air Physical Exam GENERAL: Awake, alert, tearful, in no distress HENT: Normocephalic, atraumatic. dry mucous membranes. EYES: Normal conjunctiva. Sclera non-icteric. NECK: Supple. No nuchal rigidity. FROM. No JVD. RESPIRATORY: Clear to auscultation. CARDIAC: Regular rate, normal rhythm. Extremities warm and well perfused. Pulses equal. ABDOMEN: Soft, non-distended. No tenderness to palpation. No rebound or guarding. No masses. RECTAL: Deferred. MUSCULOSKELETAL: Chest examination reveals no tenderness. The back is symmetrical on inspection without obvious abnormality. There is no CVA tenderness to palpation. No joint edema. LOWER EXTREMITIES: Calves are equal size bilaterally and non-tender. No edema. No discoloration. NEURO: Normal sensorium. No sensory or motor deficits noted. SKIN: No rash or jaundice noted. Medical Decision & Procedures Laboratory Results 02/20/17 11:59 Red Blood Count 4.00, Mean Corpuscular Volume 88.3, Mean Corpuscular Hemoglobin 29.5, Mean Corpuscular Hemoglobin Concent 33.4, Mean Platelet Volume 10.9, Neutrophils (%) (Auto) 78.1, Lymphocytes (%) (Auto) 15.2, Monocytes (%) (Auto) 5.5, Eosinophils (%) (Auto) 0.8, Basophils (%) (Auto) 0.1, Neutrophils # (Auto) 9.26, Lymphocytes # (Auto) 1.80, Monocytes # (Auto) 0.65, Eosinophils # (Auto) 0.10, Basophils # (Auto) 0.01 02/20/17 11:59 Test 02/20/17 11:35 02/20/17 11:59 Urine Color YELLOW Urine Appearance CLEAR (CLEAR) Urine pH 5.0 (4.5-7.5) Urine Specific [place] 1.016 (1.000-1.030) Urine Protein NEG (NEG) Urine Glucose (UA) 2+ (NEG) Urine Ketones NEG (NEG) Urine Occult Blood NEG (NEG) Urine Nitrite NEG (NEG) Urine Bilirubin NEG (NEG) Urine Urobilinogen NEG (NEG) Urine Leukocyte Esterase NEG (NEG) Urine Opiates Screen NEG (NEG) Urine Methadone, Qualitative NEG (NEG) Urine Barbiturates NEG (NEG) Urine Phencyclidine (PCP) Level NEG (NEG) Ur Amphetamine/Methamphetamine NEG (NEG) MDMA (Ecstasy) Screen NEG (NEG) Urine Benzodiazepines Screen NEG (NEG) Urine Cocaine Metabolite NEG (NEG) Urine Marijuana (THC) NEG (NEG) White Blood Count 11.85 K/uL (4.8-10.8) Red Blood Count 4.00 M/uL (4.2-5.4) Hemoglobin 11.8 g/dL (12.0-16.0) Hematocrit 35.3 % (37-47) Mean Corpuscular Volume 88.3 fL (80-100) Mean Corpuscular Hemoglobin 29.5 pg (25-34) Mean Corpuscular Hemoglobin Concent 33.4 g/dl (32-36) Platelet Count 288 K/uL (130-400) Mean Platelet Volume 10.9 fL (7.4-10.4) Neutrophils (%) (Auto) 78.1 % Lymphocytes (%) (Auto) 15.2 % Monocytes (%) (Auto) 5.5 % Eosinophils (%) (Auto) 0.8 % Basophils (%) (Auto) 0.1 % Neutrophils # (Auto) 9.26 K/uL (1.4-6.5) Lymphocytes # (Auto) 1.80 K/uL (1.2-3.4) Monocytes # (Auto) 0.65 K/uL (0.11-0.59) Eosinophils # (Auto) 0.10 K/uL (0-0.5) Basophils # (Auto) 0.01 K/uL (0-0.2) RDW Standard Deviation 43.3 fL (36.4-46.3) RDW Coefficient of Variation 13.4 % (11.5-14.5) Immature Granulocyte % (Auto) 0.3 % Immature Granulocyte # (Auto) 0.03 K/uL (0.00-0.02) Anion Gap 7.0 mmol/L (3-11) Est Creatinine Clear Calc Drug Dose 56.3 ml/min Estimated GFR () 61.8 Estimated GFR (Non- 53.3 BUN/Creatinine Ratio 21.3 (10-20) Calcium Level 9.3 mg/dl (8.5-10.1) Total Bilirubin 0.4 mg/dl (0.2-1) Direct Bilirubin < 0.1 mg/dl (0-0.2) Aspartate Amino Transf (AST/SGOT) 6 U/L (15-37) Alanine Aminotransferase (ALT/SGPT) 18 U/L (12-78) Alkaline Phosphatase 85 U/L (45-117) Total Protein 7.7 gm/dl (6.4-8.2) Albumin 3.4 gm/dl (3.4-5.0) Globulin 4.3 gm/dl (2.5-4.0) Albumin/Globulin Ratio 0.8 (0.9-2) Thyroid Stimulating Hormone (TSH) 0.589 uIu/ml (0.300-4.500) Ethyl Alcohol mg/dL < 3.0 mg/dl (0-3) Laboratory results reviewed by me ED Course 1121: The patient was evaluated in room A7. A complete history and physical exam was performed. 1315: Upon reexamination, the patient was doing well. I discussed the test results and treatment plan with the patient and her family. The patient will be evaluated for further management. Medical Decision I reviewed the patient's past medical history, medications, and the nursing notes as described above. Differential Diagnoses: anxiety, panic attacks, and major depression. The patient is a 56 y/o woman with a pmhx IDDM2 who presents to the emergency department with persistent anxiety and depression to the point is tearful nearly constantly through the day for the past month and has been unable to function per HPI. On arrival the patient is anxious and tearful but in NAD. Denies active SI/HI however expressive passive SI to psych CM saying she knows "all she has to do is take an overdose of her insulin". Labs with mildy elevarted wbc, which is nonspecific and are otherwise unremarkable. Patient medically cleared. Patient referred for inpatient psych admission voluntarily. 201 signed. Patient accepted to . Medication Reconcilliation Current Medication List: was personally reviewed by me Blood Pressure Screening Patient's blood pressure: Elevated blood pressure Blood pressure disposition: Elevated BP felt to be situational Impression Primary Impression: Anxiety about health Additional Impressions: Depression Suicidal ideation Scribe Attestation The scribe's documentation has been prepared under my direction and personally reviewed by me in its entirety. I confirm that the note above accurately reflects all work, treatment, procedures, and medical decision making performed by me. Departure Information Dispostion Being Evaluated By Hospitalist Referrals Prashant Pina M.D. (PCP) Patient Instructions [facility] Health Problem Qualifiers
[2017-02-20 12:14] LABS: BASO % 0.1 %; BASO ABS # 0.01 K/uL (0-0.2); EOS % 0.8 %; HEMATOCRIT 35.3 % (37-47); HEMOGLOBIN 11.8 g/dL (12.0-16.0); IG# 0.03 K/uL (0.00-0.02); LYMPH % 15.2 %; MEAN CELL VOLUME 88.3 fL (80-100); MEAN CORPUSCULAR HEMOGLOBIN 29.5 pg (25-34); MEAN CORPUSCULAR HGB CONC 33.4 g/dl (32-36); MEAN PLATELET VOLUME 10.9 fL (7.4-10.4); MONO % 5.5 %; MONO ABS # 0.65 K/uL (0.11-0.59); NEUT % 78.1 %; NEUT ABS # 9.26 K/uL (1.4-6.5); PLATELET COUNT 288 K/uL (130-400); RED CELL DISTRIBUTION WIDTH CV 13.4 % (11.5-14.5); RED CELL DISTRIBUTION WIDTH SD 43.3 fL (36.4-46.3); WHITE BLOOD COUNT 11.85 K/uL (4.8-10.8)
[2017-02-20] MEDS ORDERED: INSU100I23 SQ (12:25)
[2017-02-20] MEDS ORDERED: AUG0.05O4 EXT (12:25)
[2017-02-20] MEDS ORDERED: CITA10TA4 PO (12:25)
[2017-02-20 12:37] VITALS: O2SAT 95
[2017-02-20 12:56] LABS: ALBUMIN 3.4 gm/dl (3.4-5.0); ALKALINE PHOSPHATASE 85 U/L (45-117); ALT/SGPT 18 U/L (12-78); AST/SGOT 6 U/L (15-37); BLOOD UREA NITROGEN 24 mg/dl (7-18); CALCIUM 9.3 mg/dl (8.5-10.1); CARBON DIOXIDE 24 mmol/L (21-32); CREATININE 1.14 mg/dl (0.60-1.20); GLUCOSE 209 mg/dl (70-99); POTASSIUM 4.8 mmol/L (3.5-5.1); SODIUM 133 mmol/L (136-145); TOTAL PROTEIN 7.7 gm/dl (6.4-8.2)
[2017-02-20] MEDS ORDERED: INSULIN ASPART 100 UNITS/ML 3 ML PEN SC STA (13:13)
[2017-02-20] MEDS ORDERED: ALUMINUM/MAGNESIUM SUSP 30 ML UDC PO PRN (15:00)
[2017-02-20] MEDS ORDERED: SODIUM CHLORIDE 0.65% NA SOLN 45 ML (OCEAN) PRN (15:00)
[2017-02-20] MEDS ORDERED: BISMUTH SUBSALICYLATE PER ML OMNICELL CHARGE PO PRN (15:00)
[2017-02-20] MEDS ORDERED: MAGNESIUM HYDROXIDE SUSP 30 ML UDC PO PRN (15:00)
[2017-02-20] MEDS ORDERED: hydrOXYzine HCL 25 MG TAB PO PRN ×2 (15:00)
[2017-02-20] MEDS ORDERED: GLUCOSE 40% GEL 15 GM TUBE PO PRN (16:00)
[2017-02-20] MEDS ORDERED: DEXTROSE 50% 50 ML SYR IV PRN (16:00)
[2017-02-20] MEDS ORDERED: GLUCOSE 10 TABS/TUBE PO PRN (16:00)
[2017-02-20] MEDS ORDERED: GLUCAGON FOR INJ 1 MG VIAL SQ PRN (16:00)
[2017-02-20] MEDS: ACETAMINOPHEN 325 MG TAB PO PRN ×2 (16:52→23:51)
[2017-02-20 17:04] VITALS: BP 146/82; PULSE 61; TEMP 36.6; BMI 38.3
[2017-02-20] MEDS: METFORMIN HCL 500 MG TAB PO SCH (17:32)
[2017-02-20] MEDS ORDERED: INSULIN ASPART 100 UNITS/ML 3 ML PEN SC SCH (17:45)
--- NOTE | 2017-02-20 19:21 | Psychiatric Progress Notes ---
Psychiatric Progress Note Date of Service Feb 20, 2017. Notes called as patient seems perseverative on her blood sugars, perhaps delusions. Nursing considering prn. gluc check 153, encouraged use of prn Ativan and/or Vistaril prior to gluc checks which are triggering to patient. Consulted diabetic pharmacist. Would like to avoid atypical until assessed by clinician since could impact glucose and patient has sodium 133.
[2017-02-20] MEDS: LORAZEPAM 0.5 MG TAB PO PRN (19:56)
[2017-02-20] MEDS ORDERED: INSULIN GLARGINE SOLOSTAR 100 UNITS/ML 3 ML PEN SQ SCH (21:00)
[2017-02-20] MEDS ORDERED: PHARMACY GLYCEMIC MGMT CONSULT PRN (21:13)
[2017-02-20 21:46] VITALS: BP 111/71; PULSE 64
[2017-02-20] MEDS: BETAMETHASONE DIP AUG (DIPROLENE) 0.05% OINT 15 GM TUBE EXT SCH (21:50)
[2017-02-20] MEDS: SIMVASTATIN 40 MG TAB PO SCH (21:50)
[2017-02-20] MEDS: METOPROLOL TARTRATE 25 MG TAB PO SCH (21:51)
[2017-02-20] MEDS: INSULIN ASPART 100 UNITS/ML 3 ML PEN SC SCH (21:57)
[2017-02-20] MEDS: INSULIN GLARGINE SOLOSTAR 100 UNITS/ML 3 ML PEN SQ SCH (21:58)
[2017-02-21 06:36] VITALS: BP_SYST 114; BP_SYST 128; BP_DIAS 72; BP_DIAS 85; PULSE 71; PULSE 76; TEMP 36.6
[2017-02-21] MEDS: LEVOTHYROXINE 88 MCG TAB PO SCH (07:53)
[2017-02-21] MEDS: LORAZEPAM 0.5 MG TAB PO PRN ×2 (08:46→23:01)
[2017-02-21] MEDS: SPIRONOLACTONE 100 MG TAB PO SCH (08:55)
[2017-02-21] MEDS: ASPIRIN 81 MG ECTAB PO SCH (08:56)
[2017-02-21] MEDS: METOPROLOL TARTRATE 25 MG TAB PO SCH ×2 (08:56→21:44)
[2017-02-21] MEDS: METFORMIN HCL 500 MG TAB PO SCH ×2 (08:56→17:41)
[2017-02-21] MEDS: LISINOPRIL 40 MG TAB PO SCH (08:57)
[2017-02-21] MEDS ORDERED: CITALOPRAM 20 MG TAB PO SCH (09:00)
[2017-02-21] MEDS: BETAMETHASONE DIP AUG (DIPROLENE) 0.05% OINT 15 GM TUBE EXT SCH ×2 (09:03→21:45)
[2017-02-21] MEDS: INSULIN ASPART 100 UNITS/ML 3 ML PEN SC SCH ×4 (09:28→22:22)
--- NOTE | 2017-02-21 10:51 | Psychiatric History & Physical ---
History Date of Service Feb 21, 2017. Identifying Data Yolanda Lua is a 56-year-old female admitted on Feb 20, 2017 at 14:31 who has been living with her 80-year-old mother in [place] since 2016. Yolanda Lua was admitted on a 201 voluntary commitment. Patient is admitted from home. The patient was brought to the ED by the self transport. Information provided by the patient is considered to be reliable. Chief Complaint "the diabetes never affected my mind like it has been lately". History of Present Illness Yolanda Lua is a 56-year-old female admitted to [address] [place] [address] due to anxiety and depressive symptoms affecting functioning since October 2016. Pt reports she has had a diagnosis of diabetes for over 10 years, but was always told she could "eat whatever I wanted". She reports that monitoring her blood sugars and giving herself insulin injections has never been an issue before, but she has experienced a great deal of anxiety surrounding this in the last few months. Pt states she gets very "nervous" before taking her blood sugars causing her heart rate to increase and her hands to shake. This often causes the blood on her fingers to smear, so she will poke herself again. Pt states she often has been taking Ativan prior to testing to prevent anxiety. Pt is unsure as to the cause of her recent concerns with blood sugar, but states she has had two episodes of hypoglycemia recently that have been alarming for her. Pt states she is more concerned about "bottoming out" than being elevated as she is "used to being higher". Pt states this has affected her functioning at home as she is "too nervous to shower or do anything in the house unless my blood sugar is over 180". She moved in with her mother in October due to concerns that she would become hypoglycemic when no one was around. She now relies on her mother to watch her take her blood sugar and give herself insulin. Pt's mother encourages her to write down when she gives herself insulin injections as pt finds she often forgets and needs to be reminded by her mother that she had already done it. Pt reports a ~40-50 lb weight loss in the last 6 months due to better diet and cutting out junk food and soda. Pt states she continues to have an appetite and eat regularly, but has been making dietary changes to better control her diabetes. She also reports an incident occurring recently in which she met a stranger online and sent the individual $3000 which they had promised to pay back. Pt states she wakes every morning and thinks about the situation and " how stupid that was". Although she is unable to elaborate on a correlation at this time, she feels this incident may be contributing to her recent obsessions with glucose control. Pt states she has noticed low mood, difficulty concentrating, lack of motivation, and hopelessness, all related to her diabetes diagnosis. She states "no one should have to live like this". Pt denies SI, intent, or plan, but does state she often wonders "why did this have to happen to me, this is no way to life". She reports she also experiences low mood around the holidays as this is the time of the year her father, whom she was close with, had . Pt states she was started on Celexa 10mg about 1-2 months ago by her PCP, but has not noticed a change in her mood or anxiety symptoms. She has also been prescribed Ativan which she takes occasionally prior to testing her blood sugar to decrease nervousness. Pt denies history of panic attacks, but does experience racing thoughts about her diabetes that often keep her awake at night. Other anxiety seems to surround plans that are affected by her blood sugar such as not visiting with friends or being unable to complete tasks in her home. Pt denies HI, A/V hallucinations, paranoia, hailey, OCD, PTSD, eating disorder, and other psychosis. Pt states she feels she was anxious as a child, but more general worries. She denies obsessions or compulsions as a child. Past Psychiatric History Current OP Treatment: no current treatment Prior OP Treatment: therapist (counselor in [place] 1 month ago) Access to a Gun: No Suicide Attempts: No Past Medical/Surgical History History of Concussion/Seizure: No Allergies Allergies: Coded Allergies: No Known Allergies (Unverified , 02/20/17) Home Medications Scheduled Aspirin (Aspirin Ec), 81 MG PO DAILY Betamethasone Dip Aug 0.05% (Diprolene 0.05%), 0 EXT BID Citalopram Hydrobromide (Citalopram Hydrobromide), 1 TAB PO DAILY Insulin Glargine (Basaglar Kwikpen), 25 UNIT SQ HS Insulin Lispro (Human) (Humalog), 10 UNITS SC TIDM Levothyroxine Sodium (Levothyroxine Sodium), 88 MCG PO QAM Lisinopril (Zestril), 40 MG PO DAILY Metformin Hcl (Glucophage), 1,000 MG PO BID Metoprolol Tartrate (Lopressor) (Lopressor), 25 MG PO BID Simvastatin (Zocor), 40 MG PO QPM Spironolactone (Aldactone), 50 MG PO DAILY Scheduled PRN Lorazepam (Ativan), 0.5 MG PO TID PRN for Anxiety Family History History of Suicide: No History of Substance Abuse: No Psychiatric History: Yes (mom - anxiety and depression) Alcohol Use Alcohol Use In Past 12 Months: No AUDIT Total Score: 0 Smoking Use Smoking Status: Former Smoker (quit ~1 year ago; minimal 1 pack per 2 week use prior to quitting) Substance History denies Personal History Lives in: [place] with her elderly mother Childhood: Has younger brother Education: graduated from high school 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 Planning to apply for disability. Relationship History: ( for 5 years in 1990) Children: none Spiritual Affiliation: none Legal History: none Psychological Trauma History: Denies Hx Traumatic Event Review of Systems Psych: denies symptoms other than stated above Constitutional: denied Cardiovascular: rapid heart rate with anxiety GI: denied Integumentary: reports fungal infection in groin and abdominal folds Neurologic: denied Remainder of 10 body systems also reviewed and denied other than noted above. Examination Physical Examination A physical exam was performed in the ER prior to admission to the unit by John Preciado M.D.. I accept that physical as correct/medical clearance for the inpatient physical exam. Vital Signs Vital Signs Past 12 Hours Date Time Temp Pulse Resp B/P (MAP) Pulse Ox O2 Delivery O2 Flow Rate FiO2 02/21/17 06:36 36.6 71 16 114/72 76 128/85 02/20/17 21:46 64 111/71 Laboratory Results Last 24 Hours Test 02/20/17 11:35 02/20/17 11:44 02/20/17 11:59 02/20/17 14:01 Urine Color YELLOW Urine Appearance CLEAR Urine pH 5.0 Urine Specific [place] 1.016 Urine Protein NEG Urine Glucose (UA) 2+ Urine Ketones NEG Urine Occult Blood NEG Urine Nitrite NEG Urine Bilirubin NEG Urine Urobilinogen NEG Urine Leukocyte Esterase NEG Urine Opiates Screen NEG Urine Methadone, Qualitative NEG Urine Barbiturates NEG Urine Phencyclidine (PCP) Level NEG Ur Amphetamine/Methamphetamine NEG MDMA (Ecstasy) Screen NEG Urine Benzodiazepines Screen NEG Urine Cocaine Metabolite NEG Urine Marijuana (THC) NEG Bedside Glucose 233 mg/dl 134 mg/dl White Blood Count 11.85 K/uL Red Blood Count 4.00 M/uL Hemoglobin 11.8 g/dL Hematocrit 35.3 % Mean Corpuscular Volume 88.3 fL Mean Corpuscular Hemoglobin 29.5 pg Mean Corpuscular Hemoglobin Concent 33.4 g/dl Platelet Count 288 K/uL Mean Platelet Volume 10.9 fL Neutrophils (%) (Auto) 78.1 % Lymphocytes (%) (Auto) 15.2 % Monocytes (%) (Auto) 5.5 % Eosinophils (%) (Auto) 0.8 % Basophils (%) (Auto) 0.1 % Neutrophils # (Auto) 9.26 K/uL Lymphocytes # (Auto) 1.80 K/uL Monocytes # (Auto) 0.65 K/uL Eosinophils # (Auto) 0.10 K/uL Basophils # (Auto) 0.01 K/uL RDW Standard Deviation 43.3 fL RDW Coefficient of Variation 13.4 % Immature Granulocyte % (Auto) 0.3 % Immature Granulocyte # (Auto) 0.03 K/uL Sodium Level 133 mmol/L Potassium Level 4.8 mmol/L Chloride Level 102 mmol/L Carbon Dioxide Level 24 mmol/L Anion Gap 7.0 mmol/L Blood Urea Nitrogen 24 mg/dl Creatinine 1.14 mg/dl Est Creatinine Clear Calc Drug Dose 56.3 ml/min Estimated GFR () 61.8 Estimated GFR (Non- 53.3 BUN/Creatinine Ratio 21.3 Random Glucose 209 mg/dl Calcium Level 9.3 mg/dl Total Bilirubin 0.4 mg/dl Direct Bilirubin < 0.1 mg/dl Aspartate Amino Transf (AST/SGOT) 6 U/L Alanine Aminotransferase (ALT/SGPT) 18 U/L Alkaline Phosphatase 85 U/L Total Protein 7.7 gm/dl Albumin 3.4 gm/dl Globulin 4.3 gm/dl Albumin/Globulin Ratio 0.8 Thyroid Stimulating Hormone (TSH) 0.589 uIu/ml Ethyl Alcohol mg/dL < 3.0 mg/dl Test 02/20/17 17:17 02/20/17 21:27 02/20/17 23:54 02/21/17 07:36 Bedside Glucose 156 mg/dl 108 mg/dl 97 mg/dl 155 mg/dl Mental Examination During interview pt is: alert and oriented, cooperative Appearance: appropriately dressed, appropriately groomed Eye contact is: good Motor behavior is: no abnormal motor movements Speech: normal in rate, rhythm & volume Affect: depressed, tearful, anxious Mood is: depressed, anxious Thought process: goal directed, clear, coherent Thought content: preoccupation (with diabetes and glucose control) Suicidal thought are: denied, Plan: denied, Intent: denied Homicidal thoughts are: denied Hallucinations: denies auditory, denies visual Cognition: attention grossly intact, language grossly intact Intelligence estimated to be: average Insight: impaired Judgement: impaired Impression / Recommendations Impression Yolanda Lua is a 56-year-old female admitted for inpatient treatment due to decreased functioning as a result of ruminations about glucose control for her longstanding diagnosis of diabetes. Recent onset of anxiety and depression surround blood sugar testing and administration of insulin doses. Pt recently started on Celexa 10mg by her PCP, but has not yet noticed an improvement in mood. She continues to take Ativan PRN prior to glucose testing in order to decrease anxiety. Pt's activities and schedule have greatly been affected by her anxiety surrounding her disease process and she often will avoid showering or participating in other activities if her blood sugar is less than 180. Pt requires inpatient treatment as it is still uncertain if presentation is a result of recent psychosis or a ruminative depression, which seems more likely. Pt requires better anxiety control in order to participate in regular ADLs and better care for herself within her home. Pt would greatly benefit from counseling and management with a paraeducator while hospitalized on the unit. Inventory Assets Strengths: good support system, no previous psychiatric history, desire for treatment Needs: requires better control of anxiety, improve mood, education about diabetes disease process and management. 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 Although diagnosed over 10 years ago, pt reports low mood and motivation since October which have affected functioning at home. - Will increase Celexa to 20mg daily tomorrow to better target mood and anxiety symptoms. Risks, benefits, side effects, and alternatives discussed. Pt verbalized understanding and is agreeable to the plan. - Consult for diabetic education and counseling to attempt to ease anxiety - Encourage participation in group therapy and activities while on the unit - Enforce scheduled glucose monitoring only as patient tends to check more frequently than needed at home - Schedule family meeting with identified supports if appropriate, likely mother or brother - Coordination of care with outpatient providers (2) Anxiety about health 02/21/17 - Encourage use of buspirone 5mg TID prior to meal-time blood glucose testing to decrease anxiety. Risks, benefits, side effects, and alternatives discussed. Pt verbalized understanding and is agreeable to the plan. - Enforce scheduled blood glucose checks only - Encourage buspirone rather than PRN Ativan as she states she becomes "foggy " with Ativan use. Eventual hope to discontinue Ativan in favor of buspirone for anxiety control. CPT Code Initial Hospital Care: 65449
--- NOTE | 2017-02-21 12:10 | Psychiatric History & Physical ---
Psychiatric History & Physical Date of Service: Feb 21, 2017. History Date of Service Feb 21, 2017. Identifying Data Yolanda Lua is a 56-year-old female admitted on Feb 20, 2017 at 14:31 who has been living with her 80-year-old mother in [place] since 2016. Yolanda Lua was admitted on a 201 voluntary commitment. Patient is admitted from home. The patient was brought to the ED by the self transport. Information provided by the patient is considered to be reliable. Chief Complaint "the diabetes never affected my mind like it has been lately". History of Present Illness Yolanda Lua is a 56-year-old female admitted to [address] [place] [address] due to anxiety and depressive symptoms affecting functioning since October 2016. Oralia Hnanah PA-C participated in assessment and history taking. Summary of conversation: Pt reports she has had a diagnosis of diabetes for over 10 years, but was always told she could "eat whatever I wanted". She reports that monitoring her blood sugars and giving herself insulin injections has never been an issue before, but she has experienced a great deal of anxiety surrounding this in the last few months. Pt states she gets very "nervous" before taking her blood sugars causing her heart rate to increase and her hands to shake. This often causes the blood on her fingers to smear, so she will poke herself again. Pt states she often has been taking Ativan prior to testing to prevent anxiety. Pt is unsure as to the cause of her recent concerns with blood sugar, but states she has had two episodes of hypoglycemia recently that have been alarming for her. Pt states she is more concerned about "bottoming out" than being elevated as she is "used to being higher". Pt states this has affected her functioning at home as she is "too nervous to shower or do anything in the house unless my blood sugar is over 180". She moved in with her mother in October due to concerns that she would become hypoglycemic when no one was around. She now relies on her mother to watch her take her blood sugar and give herself insulin. Pt's mother encourages her to write down when she gives herself insulin injections as pt finds she often forgets and needs to be reminded by her mother that she had already done it. Pt reports a ~40-50 lb weight loss in the last 6 months due to better diet and cutting out junk food and soda. Pt states she continues to have an appetite and eat regularly, but has been making dietary changes to better control her diabetes. She also reports an incident occurring recently in which she met a stranger online and sent the individual $3000 which they had promised to pay back. Pt states she wakes every morning and thinks about the situation and " how stupid that was". Although she is unable to elaborate on a correlation at this time, she feels this incident may be contributing to her recent obsessions with glucose control. Pt states she has noticed low mood, difficulty concentrating, lack of motivation, and hopelessness, all related to her diabetes diagnosis. She states "no one should have to live like this". Pt denies SI, intent, or plan, but does state she often wonders "why did this have to happen to me, this is no way to life". She reports she also experiences low mood around the holidays as this is the time of the year her father, whom she was close with, had . Pt states she was started on Celexa 10mg about 1-2 months ago by her PCP, but has not noticed a change in her mood or anxiety symptoms. She has also been prescribed Ativan which she takes occasionally prior to testing her blood sugar to decrease nervousness. Pt denies history of panic attacks, but does experience racing thoughts about her diabetes that often keep her awake at night. Other anxiety seems to surround plans that are affected by her blood sugar such as not visiting with friends or being unable to complete tasks in her home. Pt denies HI, A/V hallucinations, paranoia, hailey, OCD, PTSD, eating disorder, and other psychosis. Pt states she feels she was anxious as a child, but more general worries. She denies obsessions or compulsions as a child. Past Psychiatric History Current OP Treatment: no current treatment Prior OP Treatment: therapist (counselor in [place] 1 month ago) Access to a Gun: No Suicide Attempts: No Past Medical/Surgical History History of Concussion/Seizure: No Diabetes, hypertension Allergies Allergies: Coded Allergies: No Known Allergies (Unverified , 02/20/17) Home Medications Scheduled Aspirin (Aspirin Ec), 81 MG PO DAILY Betamethasone Dip Aug 0.05% (Diprolene 0.05%), 0 EXT BID Citalopram Hydrobromide (Citalopram Hydrobromide), 1 TAB PO DAILY Insulin Glargine (Basaglar Kwikpen), 25 UNIT SQ HS Insulin Lispro (Human) (Humalog), 10 UNITS SC TIDM Levothyroxine Sodium (Levothyroxine Sodium), 88 MCG PO QAM Lisinopril (Zestril), 40 MG PO DAILY Metformin Hcl (Glucophage), 1,000 MG PO BID Metoprolol Tartrate (Lopressor) (Lopressor), 25 MG PO BID Simvastatin (Zocor), 40 MG PO QPM Spironolactone (Aldactone), 50 MG PO DAILY Scheduled PRN Lorazepam (Ativan), 0.5 MG PO TID PRN for Anxiety Family History History of Suicide: No History of Substance Abuse: No Psychiatric History: Yes (mom - anxiety and depression) Alcohol Use Alcohol Use In Past 12 Months: No AUDIT Total Score: 0 Smoking Use Smoking Status: Former Smoker (quit ~1 year ago; minimal 1 pack per 2 week use prior to quitting) Substance History denies Personal History Lives in: [place] with her elderly mother Childhood: Has younger brother Education: graduated from high school 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 Planning to apply for disability. Relationship History: ( for 5 years in 1990) Children: none Spiritual Affiliation: none Legal History: none Psychological Trauma History: Denies Hx Traumatic Event Psychiatric H&P: ROS v4 Review of Systems Psych: denies symptoms other than stated above Constitutional: denied Cardiovascular: rapid heart rate with anxiety GI: denied Integumentary: reports fungal infection in groin and abdominal folds Neurologic: denied Remainder of 10 body systems also reviewed and denied other than noted above. Psychiatric H&P: Exam v4 Examination Physical Examination A physical exam was performed in the ER prior to admission to the unit by John Preciado M.D.. I accept that physical as correct/medical clearance for the inpatient physical exam. Vital Signs Vital Signs Past 12 Hours Date Time Temp Pulse Resp B/P (MAP) Pulse Ox O2 Delivery O2 Flow Rate FiO2 02/21/17 06:36 36.6 71 16 114/72 76 128/85 02/20/17 21:46 64 111/71 Laboratory Results Last 24 Hours Test 02/20/17 11:35 02/20/17 11:44 02/20/17 11:59 02/20/17 14:01 Urine Color YELLOW Urine Appearance CLEAR Urine pH 5.0 Urine Specific [place] 1.016 Urine Protein NEG Urine Glucose (UA) 2+ Urine Ketones NEG Urine Occult Blood NEG Urine Nitrite NEG Urine Bilirubin NEG Urine Urobilinogen NEG Urine Leukocyte Esterase NEG Urine Opiates Screen NEG Urine Methadone, Qualitative NEG Urine Barbiturates NEG Urine Phencyclidine (PCP) Level NEG Ur Amphetamine/Methamphetamine NEG MDMA (Ecstasy) Screen NEG Urine Benzodiazepines Screen NEG Urine Cocaine Metabolite NEG Urine Marijuana (THC) NEG Bedside Glucose 233 mg/dl 134 mg/dl White Blood Count 11.85 K/uL Red Blood Count 4.00 M/uL Hemoglobin 11.8 g/dL Hematocrit 35.3 % Mean Corpuscular Volume 88.3 fL Mean Corpuscular Hemoglobin 29.5 pg Mean Corpuscular Hemoglobin Concent 33.4 g/dl Platelet Count 288 K/uL Mean Platelet Volume 10.9 fL Neutrophils (%) (Auto) 78.1 % Lymphocytes (%) (Auto) 15.2 % Monocytes (%) (Auto) 5.5 % Eosinophils (%) (Auto) 0.8 % Basophils (%) (Auto) 0.1 % Neutrophils # (Auto) 9.26 K/uL Lymphocytes # (Auto) 1.80 K/uL Monocytes # (Auto) 0.65 K/uL Eosinophils # (Auto) 0.10 K/uL Basophils # (Auto) 0.01 K/uL RDW Standard Deviation 43.3 fL RDW Coefficient of Variation 13.4 % Immature Granulocyte % (Auto) 0.3 % Immature Granulocyte # (Auto) 0.03 K/uL Sodium Level 133 mmol/L Potassium Level 4.8 mmol/L Chloride Level 102 mmol/L Carbon Dioxide Level 24 mmol/L Anion Gap 7.0 mmol/L Blood Urea Nitrogen 24 mg/dl Creatinine 1.14 mg/dl Est Creatinine Clear Calc Drug Dose 56.3 ml/min Estimated GFR () 61.8 Estimated GFR (Non- 53.3 BUN/Creatinine Ratio 21.3 Random Glucose 209 mg/dl Calcium Level 9.3 mg/dl Total Bilirubin 0.4 mg/dl Direct Bilirubin < 0.1 mg/dl Aspartate Amino Transf (AST/SGOT) 6 U/L Alanine Aminotransferase (ALT/SGPT) 18 U/L Alkaline Phosphatase 85 U/L Total Protein 7.7 gm/dl Albumin 3.4 gm/dl Globulin 4.3 gm/dl Albumin/Globulin Ratio 0.8 Thyroid Stimulating Hormone (TSH) 0.589 uIu/ml Ethyl Alcohol mg/dL < 3.0 mg/dl Test 02/20/17 17:17 02/20/17 21:27 02/20/17 23:54 02/21/17 07:36 Bedside Glucose 156 mg/dl 108 mg/dl 97 mg/dl 155 mg/dl Mental Examination During interview pt is: alert and oriented, cooperative Appearance: appropriately dressed, appropriately groomed Eye contact is: good Motor behavior is: no abnormal motor movements Speech: normal in rate, rhythm & volume Affect: depressed, tearful, anxious Mood is: depressed, anxious Thought process: goal directed, clear, coherent Thought content: preoccupation (with diabetes and glucose control) Suicidal thought are: denied, Plan: denied, Intent: denied Homicidal thoughts are: denied Hallucinations: denies auditory, denies visual Cognition: attention grossly intact, language grossly intact Intelligence estimated to be: average Insight: impaired Judgement: impaired Psychiatric H&P: Impression v4 Impression / Recommendations Impression Yolanda Lua is a 56-year-old female admitted for inpatient treatment due to decreased functioning as a result of ruminations about glucose control for her longstanding diagnosis of diabetes. Recent onset of anxiety and depression surround blood sugar testing and administration of insulin doses. Pt recently started on Celexa 10mg by her PCP, but has not yet noticed an improvement in mood. She continues to take Ativan PRN prior to glucose testing in order to decrease anxiety. Pt's activities and schedule have greatly been affected by her anxiety surrounding her disease process and she often will avoid showering or participating in other activities if her blood sugar is less than 180. Pt requires inpatient treatment as it is still uncertain if presentation is a result of recent psychosis or a ruminative depression, which seems more likely. Pt requires better anxiety control in order to participate in regular ADLs and better care for herself within her home. Pt would greatly benefit from counseling and management with a informatics educator while hospitalized on the unit. Differential includes OCD, early onset dementia, pseudodementia due to depression or even delusional disorder. Inventory Assets Strengths: good support system, no previous psychiatric history, desire for treatment Needs: requires better control of anxiety, improve mood, education about diabetes disease process and management. 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 Although diagnosed over 10 years ago, pt reports low mood and motivation since October which have affected functioning at home. - Will increase Celexa to 20mg daily tomorrow to better target mood and anxiety symptoms. Risks, benefits, side effects, and alternatives discussed. Pt verbalized understanding and is agreeable to the plan. - Consult for diabetic education and counseling to attempt to ease anxiety - Encourage participation in group therapy and activities while on the unit - Enforce scheduled glucose monitoring only as patient tends to check more frequently than needed at home - Schedule family meeting with identified supports if appropriate, likely mother or brother - Coordination of care with outpatient providers (2) Anxiety about health 02/21/17 - Encourage use of buspirone 5mg TID as recommended to patient by Oralia Espinoza prior to meal-time blood glucose testing to decrease anxiety. Pt verbalized understanding and is agreeable to the plan. - Enforce scheduled blood glucose checks only - Encourage buspirone rather than PRN Ativan as she states she becomes "foggy " with Ativan use. Eventual hope to discontinue Ativan in favor of buspirone for anxiety control. Will need PDMP database query if continues rx. CPT Code Initial Hospital Care: [id number]
--- NOTE | 2017-02-21 12:19 | Pharmacy Progress Note ---
Glycemic Control Intl Consult Date of Service Feb 21, 2017. Scope Glycemic Pharmacist consulted by Dr Galvin on 02/20/17 for glycemic control and to write orders per [facility] inpatient glycemic control protocol Objective Weight (Kilograms): 92.000 Accuchecks BSG (last 24hrs): Test 02/20/17 11:44 02/20/17 11:59 02/20/17 14:01 02/20/17 17:17 Bedside Glucose 233 mg/dl (70-90) 134 mg/dl (70-90) 156 mg/dl (70-90) Random Glucose 209 mg/dl (70-99) Test 02/20/17 21:27 02/20/17 23:54 02/21/17 07:36 Bedside Glucose 108 mg/dl (70-90) 97 mg/dl (70-90) 155 mg/dl (70-90) Laboratory Data (last 24hrs) Test 02/20/17 11:59 Anion Gap 7.0 mmol/L BUN/Creatinine Ratio 21.3 Blood Urea Nitrogen 24 mg/dl Creatinine 1.14 mg/dl Potassium Level 4.8 mmol/L Sodium Level 133 mmol/L White Blood Count 11.85 K/uL Red Blood Count 4.00 M/uL Hemoglobin 11.8 g/dL Hematocrit 35.3 % Mean Corpuscular Volume 88.3 fL Mean Corpuscular Hemoglobin 29.5 pg Mean Corpuscular Hemoglobin Concent 33.4 g/dl Platelet Count 288 K/uL Mean Platelet Volume 10.9 fL Neutrophils (%) (Auto) 78.1 % Lymphocytes (%) (Auto) 15.2 % Monocytes (%) (Auto) 5.5 % Eosinophils (%) (Auto) 0.8 % Basophils (%) (Auto) 0.1 % Neutrophils # (Auto) 9.26 K/uL Lymphocytes # (Auto) 1.80 K/uL Monocytes # (Auto) 0.65 K/uL Eosinophils # (Auto) 0.10 K/uL Basophils # (Auto) 0.01 K/uL Recent Pertinent Medications Outpatient Anti-diabetic Regimen: * Basaglar 25 units at bedtime, Humalog 10 units with meals, and metformin 1 gm PO BID * A1c = 7.2 % 12/19/16 The patient is currently receiving: * Basal insulin: Lantus 20-25 units every 24 hours at bedtime * Correctional Insulin: Novolog Correction per scale ACHS Goal Range: Low 110 mg/dL - High 140 mg/dL Correction Factor: 25 mg/dL/unit * Prandial insulin: Per carb ratio of 1 unit per 8 grams CHO consumed * Oral Agents: metformin 1000 mg PO BID Risk Factors for Insulin Resistance: * Diet: T2DM Assessment & Plan ASSESSMENT: * Ms Lua is a 56 y/o F admitted to the mental health unit with a PMH of diabetes and HTN. She is very concerned about her blood sugar and not having hypoglycemic episodes. Will titrate insulin in respect to this. She reports taking around 55 units/day of insulin. * Yesterday, a scale was created for 20-25 units of insulin based upon blood sugar ... she received 20 units of Lantus. Her fasting blood sugar was 155 mg/ dL which is above her target dose. Lowered threshold for patient to receive higher dose of insulin slightly to 120 mg/dL. Will titrate slowly. * Post-prandial the patient appeared well controlled with the current Novolog parameters. Will monitor breakfast to lunch blood sugar trend to establish if parameters need tightened or loosened. * Continue metformin as an inpatient as this is an insulin sensitizing agent. PLAN FOR INPATIENT GLYCEMIC CONTROL: * Continue metformin 1 gm PO BID * Basal insulin with LANTUS 20-25 units SQ qHS * Correctional Insulin with NOVOLOG per scale ACHS or Q6hrs while NPO * Goal Range: Low 110 mg/dL - High 140 mg/dL * Correction Factor: 25 mg/dL/unit * Nutritional / Prandial insulin per carb ratio of 1 unit per 8 grams CHO consumed * Please note that the plan above was derived based on current level of insulin resistance and hospital stress. These recommendations are appropriate for inpatient admission only. Plan of care upon discharge will need to be reassessed to avoid potential outpatient hypo/hyperglycemia. Thank you.
[2017-02-21 15:59] VITALS: BMI 38.3
[2017-02-21] MEDS: SIMVASTATIN 40 MG TAB PO SCH (21:44)
[2017-02-21 21:54] VITALS: BP 139/83; PULSE 67
[2017-02-21] MEDS: INSULIN GLARGINE SOLOSTAR 100 UNITS/ML 3 ML PEN SQ SCH (22:20)
[2017-02-22 06:34] VITALS: BP_SYST 115; BP_SYST 116; BP_DIAS 76; BP_DIAS 80; PULSE 68; PULSE 69; TEMP 36.6
[2017-02-22] MEDS: LEVOTHYROXINE 88 MCG TAB PO SCH (07:49)
[2017-02-22] MEDS: CITALOPRAM 20 MG TAB PO SCH (08:16)
[2017-02-22] MEDS: SPIRONOLACTONE 100 MG TAB PO SCH (08:16)
[2017-02-22] MEDS: BETAMETHASONE DIP AUG (DIPROLENE) 0.05% OINT 15 GM TUBE EXT SCH ×2 (08:16→21:44)
[2017-02-22] MEDS: METFORMIN HCL 500 MG TAB PO SCH ×2 (08:17→17:36)
[2017-02-22] MEDS: LISINOPRIL 40 MG TAB PO SCH (08:17)
[2017-02-22] MEDS: ASPIRIN 81 MG ECTAB PO SCH (08:17)
[2017-02-22] MEDS: METOPROLOL TARTRATE 25 MG TAB PO SCH ×2 (08:17→21:44)
[2017-02-22] MEDS: INSULIN ASPART 100 UNITS/ML 3 ML PEN SC SCH ×4 (09:28→21:47)
--- NOTE | 2017-02-22 10:05 | Pharmacy Progress Note ---
Glycemic Control Progress Note Date of Service Feb 22, 2017. Scope Glycemic Pharmacist consulted for glycemic control to write orders per [facility] inpatient glycemic control protocol. Objective Accuchecks BSG (last 24hrs): Test 02/21/17 11:49 02/21/17 17:12 02/21/17 20:52 02/22/17 08:06 Bedside Glucose 158 mg/dl (70-90) 101 mg/dl (70-90) 156 mg/dl (70-90) 153 mg/dl (70-90) Recent Pertinent Medications Outpatient Anti-diabetic Regimen: * Basaglar 25 units at bedtime, Humalog 10 units with meals, and metformin 1 gm PO BID * A1c = 7.2 % 12/19/16 The patient is currently receiving: * Basal insulin: Lantus 20-25 units every 24 hours at bedtime * Correctional Insulin: Novolog Correction per scale ACHS Goal Range: Low 110 mg/dL - High 140 mg/dL Correction Factor: 25 mg/dL/unit * Prandial insulin: Per carb ratio of 1 unit per 8 grams CHO consumed * Oral Agents: metformin 1000 mg PO BID Risk Factors for Insulin Resistance: * Diet: T2DM Outpatient Anti-Diabetic Meds see above Assessment & Plan ASSESSMENT: * Ms Lua is a 56 y/o F admitted to the mental health unit with a PMH of diabetes and HTN. She is very concerned about her blood sugar and not having hypoglycemic episodes. Will titrate insulin in respect to this. She reports taking around 55 units/day of insulin. * Yesterday, the patient received 50 units of insulin (25 units of Lantus) and blood sugars ranged from 101-158 mg/dL (all but one in the 150s). Fasting this morning was 153 mg/dL which is similar to yesterday's fasting. Continue current regimen with threshold for lower Lantus dose lowered significantly. Concern for titrating quickly due to patient's preoccupation with blood sguar. * Post-prandial the patient appeared well controlled with the current Novolog parameters. * Continue metformin as an inpatient as this is an insulin sensitizing agent. PLAN FOR INPATIENT GLYCEMIC CONTROL: * Continue metformin 1 gm PO BID * Basal insulin with LANTUS 20-25 units SQ qHS * Correctional Insulin with NOVOLOG per scale ACHS or Q6hrs while NPO * Goal Range: Low 110 mg/dL - High 140 mg/dL * Correction Factor: 25 mg/dL/unit * Nutritional / Prandial insulin per carb ratio of 1 unit per 8 grams CHO consumed * Please note that the plan above was derived based on current level of insulin resistance and hospital stress. These recommendations are appropriate for inpatient admission only. Plan of care upon discharge will need to be reassessed to avoid potential outpatient hypo/hyperglycemia. Thank you.
--- NOTE | 2017-02-22 12:52 | Psychiatric Progress Notes ---
Progress Note Date of Service Feb 22, 2017. Chief Complaint "Is there hope?" Subjective Patient was seen & assessed interval progress reviewed with Treatment Team. Celexa dose escalated and BuSpar stated. Remains anxious appearing and reporting PDW to staff. She describes mood as "nervous" on interview. Uncertain of benefit from buspar but tolerated well. Remains preoccupied by worries about glucose control. Catastrophic fear of "going too low" keeping her from showering. Able to identify that this worry is illogical but struggles to reassure herself. Has set goal to shower today. Was seen by agricultural extension educator who felt pt had adequate understanding but anxious rumination was barrier. Pt endorses continued episodic passive thoughts of being better off this AM. Review of Systems Constitutional: + fatigue Psychiatric: + depression symptoms, + anxiety Sleep Information Total Hours of Sleep: 7.00 Meal Information Percent of Breakfast Consumed: 95 Percent of Lunch Consumed: 100 Percent of Dinner Consumed: 100 Mental Status Exam During interview pt is: alert and oriented, cooperative Appearance: appropriately dressed, disheveled Eye contact is: good Motor behavior is: no abnormal motor movements Speech: normal in rate, rhythm & volume Affect: mood congruent, depressed, anxious Mood is: depressed, anxious Thought process: goal directed, clear, coherent, perseveration Thought content: preoccupation (with diabetes and glucose control) Suicidal thought are: denied, Plan: denied, Intent: denied Homicidal thoughts are: denied Hallucinations: denies auditory, denies visual Cognition: attention grossly intact, language grossly intact Intelligence estimated to be: average Insight: impaired Judgement: impaired Impression Yolanda Lua is a 56-year-old female admitted for inpatient treatment due to decreased functioning as a result of ruminations about glucose control for her longstanding diagnosis of diabetes. Recent onset of anxiety and depression surround blood sugar testing and administration of insulin doses. Pt was recently started on Celexa 10mg by her PCP and had been taking Ativan PRN prior to glucose testing in order to decrease anxiety. Pt's activities and schedule have greatly been affected by her anxiety surrounding her disease process and she often will avoid showering or participating in other activities if her blood sugar is less than 180. Pt requires inpatient treatment and better anxiety control in order to participate in regular ADLs and better care for herself within her home. 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 Although diagnosed over 10 years ago, pt reports low mood and motivation since October which have affected functioning at home. - Will increase Celexa to 20mg daily tomorrow to better target mood and anxiety symptoms. Risks, benefits, side effects, and alternatives discussed. Pt verbalized understanding and is agreeable to the plan. - Consult for diabetic education and counseling to attempt to ease anxiety - Encourage participation in group therapy and activities while on the unit - Enforce scheduled glucose monitoring only as patient tends to check more frequently than needed at home - Schedule family meeting with identified supports if appropriate, likely mother or brother - Coordination of care with outpatient providers 02/22/17 - tolerating increased celexa. reviewed EKG with QTc of 422 11/21/16. if no evidence of positive trend in next few days, may consider changing to sertraline if more aggressive titration will be needed. (2) Anxiety about health 02/21/17 - Encourage use of buspirone 5mg TID prior to meal-time blood glucose testing to decrease anxiety. Risks, benefits, side effects, and alternatives discussed. Pt verbalized understanding and is agreeable to the plan. - Enforce scheduled blood glucose checks only - Encourage buspirone rather than PRN Ativan as she states she becomes "foggy " with Ativan use. Eventual hope to discontinue Ativan in favor of buspirone for anxiety control. - her illness anxiety appears atypical for her and most likely a symptom of her depression. able to appreciate illogical basis but struggles to self sooth. responded fairly to efforts at insight facilitation and increasing positive self -talk but required a great deal of reassurance still this am. - tolerating buspar. will consider dose escalation tomorrow pending efficacy today Discharge / Aftercare Planning Primary Care Physician: Name: Dr Pina Psychiatrist: Name: MANE - will be assigned upon intake Date of Appointment: Mar 10, 2017 Time of Appointment: 9:00 am Appointment Notes: [address] [facility] [address] Therapist: Name: MANE - Kiana Lozano Date of Appointment: Mar 10, 2017 Time of Appointment: 9:00 am Appointment Notes: [address] [facility] [place] [address] Electrical Repairer: Name: None Visit Code E&M Code: 88064 Inventory Assets Strengths: good support system, no previous psychiatric history, desire for treatment Needs: requires better control of anxiety, improve mood, education about diabetes disease process and management. Risk Factors Assessment : Yes /single/: Yes Higher / Fall in social status: No Health problems: Yes Mental Health Diagnoses: No Substance use disorders: No Previous attempt: No Previous psychiatric stay: No Hopelessness: Yes Smoker: No Protective Factors Assessment Congregation beliefs: No : No Responsible for young children: No Employed: No Stable relationships: Yes Supportive family: Yes Data Vital Signs Last 24 Hrs: Date Time Temp Pulse Resp B/P (MAP) Pulse Ox O2 Delivery O2 Flow Rate FiO2 02/22/17 06:34 36.6 68 18 115/76 69 116/80 02/21/17 21:54 67 18 139/83 Meds Administered Last 24 Hrs: Meds Administered (Past 24Hrs) Medications (Trade) Dose Ordered Sig/Marva Route Start Time Stop Time Status Last Admin Dose Admin Acetaminophen (Tylenol Tab) 650 mg Q4H PRN PO 02/20/17 15:00 03/22/17 14:59 02/20/17 23:51 650 MG Aspirin (Ecotrin Tab) 81 mg DAILY PO 02/21/17 09:00 03/23/17 08:59 02/22/17 08:17 81 MG Betamethasone Dipropion Augmented (Diprolene .05% Oint) 1 appln BID EXT 02/20/17 21:00 03/22/17 20:59 02/22/17 08:16 1 APPLN Insulin Aspart (novoLOG ASPART) 10 units TIDM SC 02/20/17 17:45 02/20/17 21:19 DC 02/20/17 18:01 10 UNITS Levothyroxine Sodium (Synthroid Tab) 88 mcg DAILYBB PO 02/21/17 08:00 03/23/17 07:59 02/22/17 07:49 88 MCG Lisinopril (Zestril Tab) 40 mg DAILY PO 02/21/17 09:00 03/23/17 08:59 02/22/17 08:17 40 MG Lorazepam (Ativan Tab) 0.5 mg TID PRN PO 02/20/17 15:00 03/22/17 14:59 02/21/17 23:01 0.5 MG Metformin HCl (Glucophage Tab) 1,000 mg BIDM PO 02/20/17 17:45 03/22/17 17:44 02/22/17 08:17 1,000 MG Metoprolol Tartrate (Lopressor Tab) 25 mg BID PO 02/20/17 21:00 03/22/17 20:59 02/22/17 08:17 25 MG Simvastatin (Zocor Tab) 40 mg QPM PO 02/20/17 21:00 03/22/17 20:59 02/21/17 21:44 40 MG Spironolactone (Aldactone Tab) 50 mg DAILY PO 02/21/17 09:00 03/23/17 08:59 02/22/17 08:16 50 MG Citalopram Hydrobromide (celeXA TAB) 10 mg DAILY PO 02/21/17 09:00 02/21/17 11:47 DC 02/21/17 08:55 10 MG Insulin Aspart (novoLOG ASPART) SLIDING SCALE ACHS SC 02/20/17 22:00 03/22/17 21:59 02/22/17 09:28 7 UNITS Insulin Glargine (Lantus Solostar Pen) SEE PROTOCOL TEXT HS SQ 02/20/17 22:00 02/22/17 10:00 DC 02/21/17 22:20 25 UNITS Citalopram Hydrobromide (celeXA TAB) 20 mg DAILY PO 02/22/17 09:00 03/23/17 08:59 02/22/17 08:16 20 MG Buspirone HCl (Buspar Tab) 5 mg AC PO 02/21/17 17:15 03/23/17 17:14 02/22/17 07:49 5 MG Lab Results Last 24 Hrs: Last 24 Hours Test 02/21/17 17:12 02/21/17 20:52 02/22/17 08:06 02/22/17 12:13 Bedside Glucose 101 mg/dl 156 mg/dl 153 mg/dl 157 mg/dl
[2017-02-22] MEDS: SIMVASTATIN 40 MG TAB PO SCH (21:44)
[2017-02-22] MEDS: INSULIN GLARGINE SOLOSTAR 100 UNITS/ML 3 ML PEN SQ SCH (21:49)
[2017-02-22] MEDS: LORAZEPAM 0.5 MG TAB PO PRN (21:58)
[2017-02-22] MEDS: NYSTATIN POWDER 15GM BTL EXT PRN (22:08)
[2017-02-22 22:25] VITALS: BP 127/81; PULSE 73
[2017-02-23 07:03] VITALS: BP 125/82; PULSE 70; PULSE 71; TEMP 36.8
[2017-02-23] MEDS: LORAZEPAM 0.5 MG TAB PO PRN ×2 (07:04→20:31)
[2017-02-23] MEDS: LEVOTHYROXINE 88 MCG TAB PO SCH (07:46)
[2017-02-23] MEDS: SPIRONOLACTONE 100 MG TAB PO SCH (08:17)
[2017-02-23] MEDS: CITALOPRAM 20 MG TAB PO SCH (08:18)
[2017-02-23] MEDS: METOPROLOL TARTRATE 25 MG TAB PO SCH ×2 (08:19→22:05)
[2017-02-23] MEDS: METFORMIN HCL 500 MG TAB PO SCH ×2 (08:19→17:23)
[2017-02-23] MEDS: ASPIRIN 81 MG ECTAB PO SCH (08:19)
[2017-02-23] MEDS: LISINOPRIL 40 MG TAB PO SCH (08:20)
[2017-02-23] MEDS: BETAMETHASONE DIP AUG (DIPROLENE) 0.05% OINT 15 GM TUBE EXT SCH ×2 (09:00→22:00)
[2017-02-23] MEDS: INSULIN ASPART 100 UNITS/ML 3 ML PEN SC SCH ×4 (09:21→22:09)
[2017-02-23] MEDS: NYSTATIN POWDER 15GM BTL EXT PRN ×2 (13:15→22:26)
--- NOTE | 2017-02-23 16:24 | Psychiatric Progress Notes ---
Progress Note Date of Service Feb 23, 2017. Chief Complaint "I'm actually feeling a lot better today". Subjective Patient was seen & assessed interval progress reviewed with Treatment Team. Staff reporting little change evident yesterday. Utilize Ativan when necessary 1 this morning. Did shower yesterday with support from staff who waited outside the door for reassurance. On interview she describes feeling much better today. Describes feeling less anxious however repeatedly seeks to remind me that her anxiety is not wholly abated. She does feel more hopeful. Denies tearfulness in last 24 hours. Denies concerns for side effects associated with BuSpar. Review of Systems Constitutional: No fever, No chills, No sweats, No weight loss, No weakness, No fatigue, No problem reported Psychiatric: + anxiety Sleep Information Total Hours of Sleep: 6.50 Meal Information Percent of Breakfast Consumed: 100 Percent of Lunch Consumed: 90 Percent of Dinner Consumed: 100 Mental Status Exam During interview pt is: alert and oriented, cooperative Appearance: appropriately dressed Eye contact is: good Motor behavior is: no abnormal motor movements Speech: normal in rate, rhythm & volume Affect: mood congruent, anxious, other (brighter today) Mood is: anxious (but getting better) Thought process: goal directed, clear, coherent, perseveration (she is less preoccupied with her health concerns today outwardly) Thought content: preoccupation, other Suicidal thought are: denied, Plan: denied, Intent: denied Homicidal thoughts are: denied Hallucinations: denies auditory, denies visual Cognition: attention grossly intact, language grossly intact Intelligence estimated to be: average Insight: impaired Judgement: impaired Impression Yolanda Lua is a 56-year-old female admitted for inpatient treatment due to decreased functioning as a result of ruminations about glucose control for her longstanding diagnosis of diabetes. Recent onset of anxiety and depression surround blood sugar testing and administration of insulin doses. Pt was recently started on Celexa 10mg by her PCP and had been taking Ativan PRN prior to glucose testing in order to decrease anxiety. Pt's activities and schedule have greatly been affected by her anxiety surrounding her disease process and she often will avoid showering or participating in other activities if her blood sugar is less than 180. Pt requires inpatient treatment and better anxiety control in order to participate in regular ADLs and better care for herself within her home. Here, Celexa has been increased and she has been started on BuSpar with initial benefit. 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 Although diagnosed over 10 years ago, pt reports low mood and motivation since October which have affected functioning at home. - Will increase Celexa to 20mg daily tomorrow to better target mood and anxiety symptoms. Risks, benefits, side effects, and alternatives discussed. Pt verbalized understanding and is agreeable to the plan. - Consult for diabetic education and counseling to attempt to ease anxiety - Encourage participation in group therapy and activities while on the unit - Enforce scheduled glucose monitoring only as patient tends to check more frequently than needed at home - Schedule family meeting with identified supports if appropriate, likely mother or brother - Coordination of care with outpatient providers 02/22/17 - tolerating increased celexa. reviewed EKG with QTc of 422 11/21/16. if no evidence of positive trend in next few days, may consider changing to sertraline if more aggressive titration will be needed. 02/23 - Was considering alternative to Celexa but, as she is perceiving improvement today, we'll defer that change for now and continue current dose unchanged (2) Anxiety about health 02/21/17 - Encourage use of buspirone 5mg TID prior to meal-time blood glucose testing to decrease anxiety. Risks, benefits, side effects, and alternatives discussed. Pt verbalized understanding and is agreeable to the plan. - Enforce scheduled blood glucose checks only - Encourage buspirone rather than PRN Ativan as she states she becomes "foggy " with Ativan use. Eventual hope to discontinue Ativan in favor of buspirone for anxiety control. - her illness anxiety appears atypical for her and most likely a symptom of her depression. able to appreciate illogical basis but struggles to self sooth. responded fairly to efforts at insight facilitation and increasing positive self -talk but required a great deal of reassurance still this am. - tolerating buspar. will consider dose escalation tomorrow pending efficacy today 02/23 - BuSpar seems to be demonstrating an acute therapeutic benefit in reducing her severe anxiety. Will increase to 7.5 mg by mouth 3 times a day to maximize effect watching for dizziness. Discharge / Aftercare Planning Primary Care Physician: Name: Dr Pina Psychiatrist: Name: MANE - will be assigned upon intake Date of Appointment: Mar 10, 2017 Time of Appointment: 9:00 am Appointment Notes: [address] [facility] [address] Therapist: Name: JACQUES Janie Lozano Date of Appointment: Mar 10, 2017 Time of Appointment: 9:00 am Appointment Notes: [address] [facility] [address] Manager Business Information: Name: None Visit Code E&M Code: 76695 Inventory Assets Strengths: good support system, no previous psychiatric history, desire for treatment Needs: requires better control of anxiety, improve mood, education about diabetes disease process and management. Risk Factors Assessment : Yes /single/: Yes Higher / Fall in social status: No Health problems: Yes Mental Health Diagnoses: No Substance use disorders: No Previous attempt: No Previous psychiatric stay: No Hopelessness: Yes Smoker: No Protective Factors Assessment Scientology beliefs: No : No Responsible for young children: No Employed: No Stable relationships: Yes Supportive family: Yes Data Vital Signs Last 24 Hrs: Date Time Temp Pulse Resp B/P (MAP) Pulse Ox O2 Delivery O2 Flow Rate FiO2 02/23/17 07:03 36.8 70 16 125/82 71 02/22/17 22:25 73 127/81 Meds Administered Last 24 Hrs: Meds Administered (Past 24Hrs) Medications (Trade) Dose Ordered Sig/Marva Route Start Time Stop Time Status Last Admin Dose Admin Citalopram Hydrobromide (celeXA TAB) 20 mg DAILY PO 02/22/17 09:00 03/23/17 08:59 02/23/17 08:18 20 MG Buspirone HCl (Buspar Tab) 5 mg AC PO 02/21/17 17:15 03/23/17 17:14 02/23/17 12:20 5 MG Insulin Glargine (Lantus Solostar Pen) SEE PROTOCOL TEXT HS SQ 02/22/17 22:00 03/24/17 21:59 02/22/17 21:49 27 UNITS Lab Results Last 24 Hrs: Last 24 Hours Test 02/22/17 17:14 02/22/17 21:01 02/23/17 07:42 02/23/17 12:05 Bedside Glucose 132 mg/dl 135 mg/dl 151 mg/dl 143 mg/dl
[2017-02-23] MEDS: SIMVASTATIN 40 MG TAB PO SCH (22:04)
[2017-02-23] MEDS: INSULIN GLARGINE SOLOSTAR 100 UNITS/ML 3 ML PEN SQ SCH (22:10)
[2017-02-23 22:16] VITALS: BP 124/75; PULSE 71
[2017-02-23] MEDS: ACETAMINOPHEN 325 MG TAB PO PRN (23:05)
[2017-02-24] MEDS: LORAZEPAM 0.5 MG TAB PO PRN ×2 (07:03→17:50)
[2017-02-24 07:10] VITALS: BP_SYST 126; BP_DIAS 81; BP_DIAS 84; PULSE 67; TEMP 36.9
[2017-02-24] MEDS: INSULIN ASPART 100 UNITS/ML 3 ML PEN SC SCH ×4 (08:57→21:46)
[2017-02-24] MEDS: CITALOPRAM 20 MG TAB PO SCH (08:58)
[2017-02-24] MEDS: METOPROLOL TARTRATE 25 MG TAB PO SCH ×2 (08:58→21:39)
[2017-02-24] MEDS: METFORMIN HCL 500 MG TAB PO SCH ×2 (08:58→17:50)
[2017-02-24] MEDS: LEVOTHYROXINE 88 MCG TAB PO SCH (08:58)
[2017-02-24] MEDS: LISINOPRIL 40 MG TAB PO SCH (08:58)
[2017-02-24] MEDS: ASPIRIN 81 MG ECTAB PO SCH (08:58)
[2017-02-24] MEDS: SPIRONOLACTONE 100 MG TAB PO SCH (08:59)
[2017-02-24] MEDS: BETAMETHASONE DIP AUG (DIPROLENE) 0.05% OINT 15 GM TUBE EXT SCH ×2 (09:00→21:39)
--- NOTE | 2017-02-24 10:43 | Pharmacy Progress Note ---
Glycemic: Assessment & Plan Date of Service Feb 24, 2017. Assessment & Plan The patient is currently receiving 50 units of insulin per day. BSGs ranging 125 - 165 mg/dl over the past 24hrs. * Basal insulin: Lantus 25 units every 24 hours given at bedtime * Correctional Insulin: Novolog Correction per scale ACHS Goal Range: Low 110 mg/dL - High 140 mg/dL Correction Factor: 25 mg/dL/unit * Prandial insulin: Per carb ratio of 1 unit per 7 grams CHO consumed BSGs continue to improve, no changes needed to inpatient regimen at this time. Pharmacy will continue to monitor patient daily and write orders per [facility] inpatient glycemic control protocol. Thanks. * Please note that the plan above was derived based on current level of insulin resistance and hospital stress. These recommendations are appropriate for inpatient admission only. Plan of care upon discharge will need to be reassessed to avoid potential outpatient hypo/hyperglycemia.
--- NOTE | 2017-02-24 13:41 | Psychiatric Progress Notes ---
Progress Note Date of Service Feb 24, 2017. Interval History Yolanda Lua is a 56-year-old female admitted for inpatient treatment due to decreased functioning as a result of ruminations about glucose control for her longstanding diagnosis of diabetes. Chief Complaint "I'm still a little anxious.". Subjective Patient was seen & assessed interval progress reviewed with Treatment Team. The patient has just had lunch, and is eating an apple. She says that being on our unit has been immensely helpful to her, feeling supported by both patients and staff. She still gets anxious thinking about her sugars, whether or not the next one will be off. Says that she has friends at home, but has been relying on her family mostly for support lately and knows that her mother, who is elderly and has her own health problems, is not equipped to help her right now. During the interview she is worrying about getting her insulin and again about what her next sugar will be. She laments that with her diabetes, she is not able to eat what other people eat, and at times feels left out. she continues to report times when she thinks about "not being here" meaning , because her challenges are so overwhelming. She reports good sleep and appetite. She is not doing her own sugars or injections here and it makes her nervous to think about it. Review of Systems Constitutional: No fever, No chills, No sweats, No weight loss, No weakness, No fatigue, No problem reported ENT: No hearing loss, No unusual epistaxis, No nasal symptoms, No sore throat, No tinnitus, No dental problems, No trouble swallowing, No problem reported Respiratory: No cough, No sputum, No wheezing, No shortness of breath, No dyspnea on exertion, No dyspnea at rest, No hemoptysis, No problem reported Cardiovascular: No chest pain, No orthopnea, No PND, No edema, No claudication , No palpitations, No problem reported Abdomen: No pain, No nausea, No vomiting, No diarrhea, No constipation, No GI bleeding, No problem reported Musculoskeletal: No joint pain, No muscle pain, No swelling, No calf pain, No problem reported Neurologic: No memory loss, No paralysis, No weakness, No numbness/tingling, No vertigo, No balance problems, No problem reported Psychiatric: + anxiety Integumentary: No rash, No itch, No new/changing skin lesions, No color change , No bleeding, No problem reported Sleep Information Total Hours of Sleep: 6.25 Meal Information Percent of Breakfast Consumed: 100 Percent of Lunch Consumed: 100 Percent of Dinner Consumed: 95 Mental Status Exam During interview pt is: alert and oriented, cooperative Appearance: appropriately dressed Eye contact is: good Motor behavior is: no abnormal motor movements Speech: normal in rate, rhythm & volume Affect: mood congruent, anxious, other (brighter today) Mood is: anxious (but getting better) Thought process: goal directed, clear, coherent, perseveration Thought content: preoccupation, other Suicidal thought are: denied, Plan: denied, Intent: denied Homicidal thoughts are: denied Hallucinations: denies auditory, denies visual Cognition: attention grossly intact, language grossly intact Intelligence estimated to be: average Insight: impaired Judgement: impaired Impression Patient remains anxious with some improvement. Will ask the staff to have her do her own sugars and insulin injections here rather than waiting for discharge. She has agreed to switch to Lexapro from Celexa due to Celexa's dosage limitations, and so will convert to Lexapro 10 mg. daily and will titrate from there. She will also benefit from more structure at home and so will explore Diabetes Support Group and Psych Rehab. Reviewed some Mindfulness exercises with her and will have staff provide her some reading material. 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 Although diagnosed over 10 years ago, pt reports low mood and motivation since October which have affected functioning at home. - Will increase Celexa to 20mg daily tomorrow to better target mood and anxiety symptoms. Risks, benefits, side effects, and alternatives discussed. Pt verbalized understanding and is agreeable to the plan. - Consult for diabetic education and counseling to attempt to ease anxiety - Encourage participation in group therapy and activities while on the unit - Enforce scheduled glucose monitoring only as patient tends to check more frequently than needed at home - Schedule family meeting with identified supports if appropriate, likely mother or brother - Coordination of care with outpatient providers 02/22/17 - tolerating increased celexa. reviewed EKG with QTc of 422 11/21/16. if no evidence of positive trend in next few days, may consider changing to sertraline if more aggressive titration will be needed. 02/23 - Was considering alternative to Celexa but, as she is perceiving improvement today, we'll defer that change for now and continue current dose unchanged 02/24 - Convert Celexa to Lexapro 10 mg. daily (2) Anxiety about health 02/21/17 - Encourage use of buspirone 5mg TID prior to meal-time blood glucose testing to decrease anxiety. Risks, benefits, side effects, and alternatives discussed. Pt verbalized understanding and is agreeable to the plan. - Enforce scheduled blood glucose checks only - Encourage buspirone rather than PRN Ativan as she states she becomes "foggy " with Ativan use. Eventual hope to discontinue Ativan in favor of buspirone for anxiety control. - her illness anxiety appears atypical for her and most likely a symptom of her depression. able to appreciate illogical basis but struggles to self sooth. responded fairly to efforts at insight facilitation and increasing positive self -talk but required a great deal of reassurance still this am. - tolerating buspar. will consider dose escalation tomorrow pending efficacy today 02/23 - BuSpar seems to be demonstrating an acute therapeutic benefit in reducing her severe anxiety. Will increase to 7.5 mg by mouth 3 times a day to maximize effect watching for dizziness. 02/24 - Have the patient perform her own BSG's and insulin injections Discharge / Aftercare Planning Primary Care Physician: Name: Dr Pina Psychiatrist: Name: [facility] - will be assigned upon intake Date of Appointment: Mar 10, 2017 Time of Appointment: 9:00 am Appointment Notes: [address] [facility] [employer] [place] [address] Therapist: Name: [facility] - Kiana Lozano Date of Appointment: Mar 10, 2017 Time of Appointment: 9:00 am Appointment Notes: [address] [facility] [employer] [address] [employer] Supervisor: Name: None Visit Code E&M Code: 89211 Inventory Assets Strengths: good support system, no previous psychiatric history, desire for treatment Needs: requires better control of anxiety, improve mood, education about diabetes disease process and management. Risk Factors Assessment : Yes /single/: Yes Higher / Fall in social status: No Health problems: Yes Mental Health Diagnoses: No Substance use disorders: No Previous attempt: No Previous psychiatric stay: No Hopelessness: Yes Smoker: No Protective Factors Assessment Scientology beliefs: No : No Responsible for young children: No Employed: No Stable relationships: Yes Supportive family: Yes Data Vital Signs Last 24 Hrs: Date Time Temp Pulse Resp B/P (MAP) Pulse Ox O2 Delivery O2 Flow Rate FiO2 02/24/17 07:10 36.9 67 16 126/81 67 126/84 02/23/17 22:16 71 124/75 Meds Administered Last 24 Hrs: Meds Administered (Past 24Hrs) Medications (Trade) Dose Ordered Sig/Marva Route Start Time Stop Time Status Last Admin Dose Admin Insulin Glargine (Lantus Solostar Pen) SEE PROTOCOL TEXT HS SQ 02/22/17 22:00 02/24/17 08:08 DC 02/23/17 22:10 25 UNITS Buspirone HCl (Buspar Tab) 7.5 mg AC PO 02/23/17 17:15 03/23/17 17:14 02/24/17 12:25 7.5 MG Lab Results Last 24 Hrs: Last 24 Hours Test 02/23/17 17:09 02/23/17 21:00 02/24/17 08:17 02/24/17 12:14 Bedside Glucose 153 mg/dl 125 mg/dl 165 mg/dl 149 mg/dl
[2017-02-24 21:08] VITALS: BP 121/81; PULSE 66
[2017-02-24] MEDS: SIMVASTATIN 40 MG TAB PO SCH (21:38)
[2017-02-24] MEDS: INSULIN GLARGINE SOLOSTAR 100 UNITS/ML 3 ML PEN SQ SCH (21:43)
[2017-02-24] MEDS: ACETAMINOPHEN 325 MG TAB PO PRN (23:29)
[2017-02-25] MEDS: LORAZEPAM 0.5 MG TAB PO PRN ×2 (06:50→22:41)
[2017-02-25 07:01] VITALS: BP_SYST 115; BP_SYST 124; BP_DIAS 74; BP_DIAS 79; PULSE 62; PULSE 66; TEMP 36.4
[2017-02-25] MEDS: LEVOTHYROXINE 88 MCG TAB PO SCH (08:20)
[2017-02-25] MEDS: SPIRONOLACTONE 100 MG TAB PO SCH (08:21)
[2017-02-25] MEDS: ASPIRIN 81 MG ECTAB PO SCH (08:21)
[2017-02-25] MEDS: METFORMIN HCL 500 MG TAB PO SCH ×2 (08:21→18:17)
[2017-02-25] MEDS: LISINOPRIL 40 MG TAB PO SCH (08:22)
[2017-02-25] MEDS: METOPROLOL TARTRATE 25 MG TAB PO SCH ×2 (08:22→22:30)
[2017-02-25] MEDS ORDERED: ESCITALOPRAM OXALATE 10 MG TAB PO SCH (09:00)
[2017-02-25] MEDS: BETAMETHASONE DIP AUG (DIPROLENE) 0.05% OINT 15 GM TUBE EXT SCH ×2 (09:00→22:00)
[2017-02-25] MEDS: NYSTATIN POWDER 15GM BTL EXT PRN ×2 (09:20→22:30)
[2017-02-25] MEDS: INSULIN ASPART 100 UNITS/ML 3 ML PEN SC SCH ×4 (09:20→22:00)
--- NOTE | 2017-02-25 11:40 | Psychiatric Progress Notes ---
Progress Note Date of Service Feb 25, 2017. Interval History Yolanda Lua is a 56-year-old female admitted for inpatient treatment due to decreased functioning as a result of ruminations about glucose control for her longstanding diagnosis of diabetes. Chief Complaint "A little bit better, but I don't feel ready to go yet". Subjective Patient was seen & assessed interval progress reviewed with Nursing. Staff report she continues to have episodic anxiety, for which she is getting multiple doses of Ativan daily. She continues to have episodes of tearfulness, although less frequently than earlier in her stay. Her anxiety is often triggered by checking her blood sugar, perseverating on concerns that it will be too low or too high. She becomes fixated on this, and requires significant support from staff. She also becomes very anxious and fearful of taking a shower, stating that she is worried her blood sugar will drop while she is in the shower. Today she was seen with MICKI Cannon. She reports slight improvement, stating that she still gets very "anxious and emotional," especially about her blood sugar, but she has been able to do some of her blood sugar checks and insulin administration on her own. She finds it helpful to talk through her anxiety with staff, and is very concerned about how she will handle this home, stating she does not feel ready to leave the hospital and worries that she will immediately decompensate. She is easily overwhelmed, and continues to worry excessively about her and sugar, stating that at home she runs in the 130 to 150 range, and knows that her blood sugars are too high. She reports she is eating a lot here, and likes the food. She denies suicidal thoughts, but does not feels stable enough to leave the hospital. She reports good sleep, and rates her mood a 5 or 6 out of 10. She tolerated her first dose of escitalopram well today. Sleep Information Total Hours of Sleep: 6.00 Meal Information Percent of Breakfast Consumed: 100 Percent of Lunch Consumed: 100 Percent of Dinner Consumed: 100 Mental Status Exam During interview pt is: alert and oriented, cooperative Appearance: appropriately dressed, other (overweight, adequate hygiene but limited grooming) Eye contact is: good Motor behavior is: steady gait & station, no abnormal motor movements Speech: normal in rate, rhythm & volume Affect: mood congruent, anxious, other (reactive and appropriate) Mood is: anxious (but improved) Thought process: goal directed, perseveration Thought content: preoccupation (own blood sugars), other Suicidal thought are: denied Homicidal thoughts are: denied Hallucinations: denies auditory, denies visual Cognition: memory grossly intact, attention grossly intact, language grossly intact Intelligence estimated to be: average Insight: impaired Judgement: impaired Impression Mood and anxiety have improved, but the patient remains frequently and easily overwhelmed, is utilizing Ativan as needed multiple times a day, and is working on taking ownership of her ADLs, but only with significant staff encouragement and support. She does not feel stable enough to leave the hospital, fearing that her anxiety will worsen and she will be able to care for herself. She has been switched from citalopram to escitalopram, and we will titrate her dose upwards to target mood and anxiety. She will also benefit from more structure at home and so will explore Diabetes Support Group and Psych Rehab, while encouraging Mindfulness exercises and discharge safety planning. 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 Although diagnosed over 10 years ago, pt reports low mood and motivation since October which have affected functioning at home. - Will increase Celexa to 20mg daily tomorrow to better target mood and anxiety symptoms. Risks, benefits, side effects, and alternatives discussed. Pt verbalized understanding and is agreeable to the plan. - Consult for diabetic education and counseling to attempt to ease anxiety - Encourage participation in group therapy and activities while on the unit - Enforce scheduled glucose monitoring only as patient tends to check more frequently than needed at home - Schedule family meeting with identified supports if appropriate, likely mother or brother - Coordination of care with outpatient providers 02/22/17 - tolerating increased celexa. reviewed EKG with QTc of 422 11/21/16. if no evidence of positive trend in next few days, may consider changing to sertraline if more aggressive titration will be needed. 02/23 - Was considering alternative to Celexa but, as she is perceiving improvement today, we'll defer that change for now and continue current dose unchanged 02/24 - Convert Celexa to Lexapro 10 mg. daily 02/25 - Increase escitalopram to 15mg daily for tomorrow. (2) Anxiety about health 02/21/17 - Encourage use of buspirone 5mg TID prior to meal-time blood glucose testing to decrease anxiety. Risks, benefits, side effects, and alternatives discussed. Pt verbalized understanding and is agreeable to the plan. - Enforce scheduled blood glucose checks only - Encourage buspirone rather than PRN Ativan as she states she becomes "foggy " with Ativan use. Eventual hope to discontinue Ativan in favor of buspirone for anxiety control. - her illness anxiety appears atypical for her and most likely a symptom of her depression. able to appreciate illogical basis but struggles to self sooth. responded fairly to efforts at insight facilitation and increasing positive self -talk but required a great deal of reassurance still this am. - tolerating buspar. will consider dose escalation tomorrow pending efficacy today 02/23 - BuSpar seems to be demonstrating an acute therapeutic benefit in reducing her severe anxiety. Will increase to 7.5 mg by mouth 3 times a day to maximize effect watching for dizziness. 02/24 - Have the patient perform her own BSG's and insulin injections 02/25 - Increase escitalopram as above, consider increase in buspirone, and decrease lorazepam to 0.5 mg bid prn for now, but advised patient that this will be a short-term medication. She says she ran out of it at home, but per PDMP she filled a prescription 02/20/17 for #[address] Pina. Discharge / Aftercare Planning Primary Care Physician: Name: Dr Pina Psychiatrist: Name: [facility] - will be assigned upon intake Date of Appointment: Mar 10, 2017 Time of Appointment: 9:00 am Appointment Notes: [address] [facility] [employer] [facility] [address] Therapist: Name: [facility] Janie Lozano Date of Appointment: Mar 10, 2017 Time of Appointment: 9:00 am Appointment Notes: [address] [facility] [employer] [facility] [address] [employer] Operator: Name: None Visit Code E&M Code: 94574 Inventory Assets Strengths: good support system, no previous psychiatric history, desire for treatment Needs: requires better control of anxiety, improve mood, education about diabetes disease process and management. Risk Factors Assessment : Yes /single/: Yes Higher / Fall in social status: No Health problems: Yes Mental Health Diagnoses: No Substance use disorders: No Previous attempt: No Previous psychiatric stay: No Hopelessness: Yes Smoker: No Protective Factors Assessment Episcopal beliefs: No : No Responsible for young children: No Employed: No Stable relationships: Yes Supportive family: Yes Data Vital Signs Last 24 Hrs: Date Time Temp Pulse Resp B/P (MAP) Pulse Ox O2 Delivery O2 Flow Rate FiO2 02/25/17 07:01 36.4 66 16 115/74 62 124/79 02/24/17 21:08 66 121/81 Meds Administered Last 24 Hrs: Meds Administered (Past 24Hrs) Medications (Trade) Dose Ordered Sig/Marva Route Start Time Stop Time Status Last Admin Dose Admin Buspirone HCl (Buspar Tab) 7.5 mg AC PO 02/23/17 17:15 03/23/17 17:14 02/25/17 08:20 7.5 MG Insulin Glargine (Lantus Solostar Pen) 25 units HS SQ 02/24/17 22:00 03/26/17 21:59 02/24/17 21:43 25 UNITS Escitalopram Oxalate (Lexapro Tab) 10 mg QAM PO 02/25/17 09:00 03/27/17 08:59 02/25/17 08:21 10 MG Lab Results Last 24 Hrs: Last 24 Hours Test 02/24/17 12:14 02/24/17 17:13 02/24/17 21:10 02/25/17 08:45 Bedside Glucose 149 mg/dl 107 mg/dl 131 mg/dl 139 mg/dl
[2017-02-25] MEDS: INSULIN GLARGINE SOLOSTAR 100 UNITS/ML 3 ML PEN SQ SCH (22:00)
[2017-02-25] MEDS: SIMVASTATIN 40 MG TAB PO SCH (22:29)
[2017-02-25 22:59] VITALS: BP 133/80; PULSE 69
[2017-02-26 06:57] VITALS: BP_SYST 109; BP_SYST 113; BP_DIAS 71; BP_DIAS 79; PULSE 59; TEMP 36.4
[2017-02-26 06:59] VITALS: Ht 154.9 cm; Wt 92.0 kg
[2017-02-26] MEDS: LEVOTHYROXINE 88 MCG TAB PO SCH (06:59)
[2017-02-26] MEDS: ASPIRIN 81 MG ECTAB PO SCH (08:31)
[2017-02-26] MEDS: SPIRONOLACTONE 100 MG TAB PO SCH (08:31)
[2017-02-26] MEDS: METFORMIN HCL 500 MG TAB PO SCH ×2 (08:32→17:25)
[2017-02-26] MEDS: METOPROLOL TARTRATE 25 MG TAB PO SCH ×2 (08:32→21:08)
[2017-02-26] MEDS: LISINOPRIL 40 MG TAB PO SCH (08:33)
[2017-02-26 08:41] VITALS: BP 108/70; PULSE 60
[2017-02-26] MEDS: BETAMETHASONE DIP AUG (DIPROLENE) 0.05% OINT 15 GM TUBE EXT SCH ×2 (09:00→21:08)
[2017-02-26] MEDS ORDERED: ESCITALOPRAM OXALATE 10 MG TAB PO SCH (09:00)
[2017-02-26] MEDS: INSULIN ASPART 100 UNITS/ML 3 ML PEN SC SCH ×4 (09:01→21:40)
--- NOTE | 2017-02-26 10:57 | Pharmacy Progress Note ---
Glycemic: Assessment & Plan Date of Service Feb 26, 2017. Assessment & Plan The patient is currently receiving 50 units of insulin per day. BSGs ranging 112-162 mg/dl over the past 24hrs. * Basal insulin: Lantus 25 units every 24 hours given at bedtime * Correctional Insulin: Novolog Correction per scale ACHS Goal Range: Low 110 mg/dL - High 140 mg/dL Correction Factor: 25 mg/dL/unit * Prandial insulin: Per carb ratio of 1 unit per 7 grams CHO consumed BSGs continue to improve, no changes needed to inpatient regimen at this time. Pharmacy will continue to monitor patient daily and write orders per [facility] inpatient glycemic control protocol. Thanks. * Please note that the plan above was derived based on current level of insulin resistance and hospital stress. These recommendations are appropriate for inpatient admission only. Plan of care upon discharge will need to be reassessed to avoid potential outpatient hypo/hyperglycemia.
--- NOTE | 2017-02-26 11:51 | Psychiatric Progress Notes ---
Progress Note Date of Service Feb 26, 2017. Interval History Yolanda Lua is a 56-year-old female admitted for inpatient treatment due to decreased functioning as a result of ruminations about glucose control for her longstanding diagnosis of diabetes. Chief Complaint "A little bit better.". Subjective Patient was seen & assessed interval progress reviewed with Treatment Team. See, with patient's permission, with Joelle Wang PA-C. Nursing reports that patient had a very difficult evening yesterday, focusing on her blood sugars and ruminating about food intake, future sugars and possible catastrophies. She was so distressed that she repeatedly could not remember whether she ate all of her dinner. Today she acknowledges her difficult evening saying that she gets "scared" which leads to panic with symptoms of racing heart, shaking and crying. She continues to fear that she will have an extreme, life threatening low. Says again that she has only ever had 2 low readings in the 50 's, but managed them with food. She knows about glucose tabs, but does not carry them, preferring to eat candy bars. She rates her mood today 5-6/10 and admits that she still has some thoughts of suicide when she thinks about why she has diabetes and why she can't seem to get through the anxiety. She does not feel ready to leave the hospital. She also talked about a past event in which she was communicating with someone on line who asked her for money so that he could get off of a ship in a [place], and she gave him thousands of dollars. Instinctually, she knew it was wrong but was taught growing up to help others when asked. He had also wanted her to sell her trailer and give him some of the proceeds, which she didn't do. She did end up selling her trailer because she could not afford the lot payment, and moved in with her mother. She is able to question whether or not this event is contributing to her current anxiety. Review of Systems Constitutional: No fever, No chills, No sweats, No weight loss, No weakness, No fatigue, No problem reported ENT: No hearing loss, No unusual epistaxis, No nasal symptoms, No sore throat, No tinnitus, No dental problems, No trouble swallowing, No problem reported Respiratory: No cough, No sputum, No wheezing, No shortness of breath, No dyspnea on exertion, No dyspnea at rest, No hemoptysis, No problem reported Cardiovascular: No chest pain, No orthopnea, No PND, No edema, No claudication , No palpitations, No problem reported Abdomen: No pain, No nausea, No vomiting, No diarrhea, No constipation, No GI bleeding, No problem reported Musculoskeletal: No joint pain, No muscle pain, No swelling, No calf pain, No problem reported Neurologic: No memory loss, No paralysis, No weakness, No numbness/tingling, No vertigo, No balance problems, No problem reported Psychiatric: + depression symptoms, + anxiety Integumentary: No rash, No itch, No new/changing skin lesions, No color change , No bleeding, No problem reported Sleep Information Total Hours of Sleep: 6.00 Meal Information Percent of Breakfast Consumed: 100 Percent of Lunch Consumed: 100 Percent of Dinner Consumed: 95 Mental Status Exam During interview pt is: alert and oriented, cooperative Appearance: appropriately dressed, other (overweight, adequate hygiene but limited grooming) Eye contact is: good Motor behavior is: steady gait & station, no abnormal motor movements Speech: normal in rate, rhythm & volume Affect: mood congruent, tearful, anxious Mood is: depressed, anxious Thought process: goal directed, perseveration (about her blood sugars) Thought content: preoccupation (own blood sugars), other Suicidal thought are: denied Homicidal thoughts are: denied Hallucinations: denies auditory, denies visual Cognition: memory grossly intact, attention grossly intact, language grossly intact Intelligence estimated to be: average Insight: impaired Judgement: impaired Impression Remains anxious with brief periods of improvement. Although she is able to pay lip service to using coping strategies, it does not appear that she is capable of using them to deal with her anxiety ahead of the curve. She is still requiring a great deal of staff assist to do her own sugars and injections. We will further titrate lexapro to 20 mg. starting tomorrow to address mood and anxiety. Consideration is given to starting to augment with abilify, but would like to see her SSRI maximized first. The patient should be encouraged to focus away from sugars using mindfulness techniques and distraction. Plan (1) Anxiety about health 02/21/17 - Encourage use of buspirone 5mg TID prior to meal-time blood glucose testing to decrease anxiety. Risks, benefits, side effects, and alternatives discussed. Pt verbalized understanding and is agreeable to the plan. - Enforce scheduled blood glucose checks only - Encourage buspirone rather than PRN Ativan as she states she becomes "foggy " with Ativan use. Eventual hope to discontinue Ativan in favor of buspirone for anxiety control. - her illness anxiety appears atypical for her and most likely a symptom of her depression. able to appreciate illogical basis but struggles to self sooth. responded fairly to efforts at insight facilitation and increasing positive self -talk but required a great deal of reassurance still this am. - tolerating buspar. will consider dose escalation tomorrow pending efficacy today 02/23 - BuSpar seems to be demonstrating an acute therapeutic benefit in reducing her severe anxiety. Will increase to 7.5 mg by mouth 3 times a day to maximize effect watching for dizziness. 02/24 - Have the patient perform her own BSG's and insulin injections 02/25 - Increase escitalopram as above, consider increase in buspirone, and decrease lorazepam to 0.5 mg bid prn for now, but advised patient that this will be a short-term medication. She says she ran out of it at home, but per PDMP she filled a prescription 02/20/17 for [address] Pina. 02/26 - Increase Lexapro to 20 mg. daily - Encourage mindfulness and distraction. (2) Diabetes 02/26 - patient educator visits when needed - Reinforce diabetic teaching - Continue current meds and BSG's QID - Diabetic diet - Will need follow up PCP Discharge / Aftercare Planning Primary Care Physician: Name: Dr Pina Psychiatrist: Name: JACQUES - will be assigned upon intake Date of Appointment: Mar 10, 2017 Time of Appointment: 9:00 am Appointment Notes: [address] [facility] [place] [address] Therapist: Name: [facility] Janie Lozano Date of Appointment: Mar 10, 2017 Time of Appointment: 9:00 am Appointment Notes: [address] [facility] [place] [address] Financial Service Rep: Name: None Visit Code E&M Code: 39230 Therapy Code: 12447 therapy Inventory Assets Strengths: good support system, no previous psychiatric history, desire for treatment Needs: requires better control of anxiety, improve mood, education about diabetes disease process and management. Risk Factors Assessment : Yes /single/: Yes Higher / Fall in social status: No Health problems: Yes Mental Health Diagnoses: No Substance use disorders: No Previous attempt: No Previous psychiatric stay: No Hopelessness: Yes Smoker: No Protective Factors Assessment Anabaptist beliefs: No : No Responsible for young children: No Employed: No Stable relationships: Yes Supportive family: Yes Data Vital Signs Last 24 Hrs: Date Time Temp Pulse Resp B/P (MAP) Pulse Ox O2 Delivery O2 Flow Rate FiO2 02/26/17 08:41 60 16 108/70 02/26/17 06:57 36.4 59 16 109/71 59 113/79 02/25/17 22:59 69 133/80 Meds Administered Last 24 Hrs: Meds Administered (Past 24Hrs) Medications (Trade) Dose Ordered Sig/Marva Route Start Time Stop Time Status Last Admin Dose Admin Insulin Glargine (Lantus Solostar Pen) 25 units HS SQ 02/24/17 22:00 03/26/17 21:59 02/25/17 22:00 25 UNITS Escitalopram Oxalate (Lexapro Tab) 10 mg QAM PO 02/25/17 09:00 02/25/17 11:45 DC 02/25/17 08:21 10 MG Lorazepam (Ativan Tab) 0.5 mg BID PRN PO 02/25/17 11:45 03/22/17 14:59 02/25/17 22:41 0.5 MG Escitalopram Oxalate (Lexapro Tab) 15 mg QAM PO 02/26/17 09:00 03/27/17 08:59 02/26/17 08:32 15 MG Lab Results Last 24 Hrs: Last 24 Hours Test 02/25/17 12:27 02/25/17 17:18 02/25/17 21:33 02/26/17 08:00 Bedside Glucose 162 mg/dl 156 mg/dl 112 mg/dl 157 mg/dl Problem Qualifiers (1) Diabetes: Diabetes mellitus type: type 2
[2017-02-26 20:45] VITALS: BP 111/76; PULSE 67
[2017-02-26] MEDS: SIMVASTATIN 40 MG TAB PO SCH (21:07)
[2017-02-26] MEDS: INSULIN GLARGINE SOLOSTAR 100 UNITS/ML 3 ML PEN SQ SCH (21:43)
[2017-02-26] MEDS: LORAZEPAM 0.5 MG TAB PO PRN (22:10)
[2017-02-26] MEDS: NYSTATIN POWDER 15GM BTL EXT PRN (22:45)
[2017-02-27 06:47] VITALS: BP_SYST 109; BP_SYST 112; BP_DIAS 72; BP_DIAS 76; PULSE 60; PULSE 64; TEMP 36.8
[2017-02-27] MEDS: LEVOTHYROXINE 88 MCG TAB PO SCH (08:02)
[2017-02-27] MEDS: BETAMETHASONE DIP AUG (DIPROLENE) 0.05% OINT 15 GM TUBE EXT SCH ×2 (09:00→21:33)
[2017-02-27] MEDS: SPIRONOLACTONE 100 MG TAB PO SCH (09:12)
[2017-02-27] MEDS: METFORMIN HCL 500 MG TAB PO SCH ×2 (09:12→18:12)
[2017-02-27] MEDS: ASPIRIN 81 MG ECTAB PO SCH (09:12)
[2017-02-27] MEDS: METOPROLOL TARTRATE 25 MG TAB PO SCH ×2 (09:13→21:35)
[2017-02-27] MEDS: ESCITALOPRAM OXALATE 20 MG TAB PO SCH (09:13)
[2017-02-27] MEDS: LISINOPRIL 40 MG TAB PO SCH (09:13)
[2017-02-27] MEDS: INSULIN ASPART 100 UNITS/ML 3 ML PEN SC SCH ×4 (09:19→21:37)
--- NOTE | 2017-02-27 10:16 | Psychiatric Progress Notes ---
Progress Note Date of Service Feb 27, 2017. Interval History Yolanda Lua is a 56-year-old female admitted for inpatient treatment due to decreased functioning as a result of ruminations about glucose control for her longstanding diagnosis of diabetes. Chief Complaint "I'm just still getting nervous in the morning before my readings". Subjective Patient was seen & assessed interval progress reviewed with Nursing. Reported pt was able to shower yesterday with some encouragement as she typically gets anxious about becoming hypoglycemic in the shower. She requested prn Ativan last evening due to anxiety about evening blood sugar. Blood sugars last evening were 138 and 136. Pt reports blood sugar this morning was 168 which she felt was too high, therefore making her concerned about eating too much for breakfast. Staff has been encouraging patient during blood sugar testing to interrupt her anxiety and racing thoughts. Meal cart has been removed from the unit after pt is finished eating due to the patient frequently checking to see how much of her meal she has eaten. Pt was seen today to assess progress since admission. She reports she feels like she has improved "a tiny bit", but is still not comfortable with managing her symptoms outside of the unit. She states she frequently has thoughts of "being a hopeless cause". Pt states she has had less anxiety about showering. She continues to report most of her anxiety is in the morning before testing and in the evening before bed as she is unsure "what the number will do while I' m sleeping". She states the mealtime doses of buspirone have been helpful to tame her anxiety, but has not eliminated it completely. Pt received first dose of Lexapro 20mg this morning and is hopeful that it will help with her anxiety as well. Discussed distraction techniques with the patient during our conversation today. She was encouraged to keep a book or crossword on hand throughout the day. It was suggested that she recognize racing thoughts and anxiety, stop the cycle, and complete a distraction activity. Pt verbalized understanding and stated she would try some of these techniques. Pt continues to endorse hopelessness during our conversation today. Review of Systems Psych: denies symptoms other than stated above Constitutional: denied Cardiovascular: denied GI: denied Neurologic: denied Remainder of 10 body systems also reviewed and denied other than noted above. Sleep Information Total Hours of Sleep: 6.50 Meal Information Percent of Breakfast Consumed: 100 Percent of Lunch Consumed: 100 Percent of Dinner Consumed: 100 Mental Status Exam During interview pt is: alert and oriented, cooperative Appearance: appropriately dressed, other (overweight) Eye contact is: good Motor behavior is: steady gait & station, no abnormal motor movements Speech: normal in rate, rhythm & volume Affect: tearful, anxious Mood is: depressed, anxious Thought process: goal directed, clear, coherent, perseveration (diabetes and blood sugar) Thought content: preoccupation (with blood sugar readings), reality based without delusions Suicidal thought are: denied (persisting hopelessness) Homicidal thoughts are: denied Hallucinations: denies auditory, denies visual Cognition: memory grossly intact, attention grossly intact, language grossly intact Intelligence estimated to be: average Insight: impaired Judgement: impaired Impression Ongoing anxiety in regard to blood sugar readings and control of her diabetes. Hopelessness continuing, with minimal improvement. Lexapro was increased to 20mg with first dose given this AM. Will continue to observe for improvement with this adjustment. Pt reports it is beneficial to talk with someone to distract herself from anxious thoughts, but concern that talking about the blood sugar will only encourage the anxiety. Would suggest continuing to enforce distraction techniques when anxious or questioning staff about insulin or meals. Pt was encouraged to keep activities on hand that she could pull out quickly when she notices anxious thoughts. May require augmentation agent if anxiety not controlled once her Lexapro has been maximized - previous progress notes suggesting Abilify as a possibility. Plan (1) Anxiety about health 02/21/17 - Encourage use of buspirone 5mg TID prior to meal-time blood glucose testing to decrease anxiety. Risks, benefits, side effects, and alternatives discussed. Pt verbalized understanding and is agreeable to the plan. - Enforce scheduled blood glucose checks only - Encourage buspirone rather than PRN Ativan as she states she becomes "foggy " with Ativan use. Eventual hope to discontinue Ativan in favor of buspirone for anxiety control. - her illness anxiety appears atypical for her and most likely a symptom of her depression. able to appreciate illogical basis but struggles to self sooth. responded fairly to efforts at insight facilitation and increasing positive self -talk but required a great deal of reassurance still this am. - tolerating buspar. will consider dose escalation tomorrow pending efficacy today 02/23 - BuSpar seems to be demonstrating an acute therapeutic benefit in reducing her severe anxiety. Will increase to 7.5 mg by mouth 3 times a day to maximize effect watching for dizziness. 02/24 - Have the patient perform her own BSG's and insulin injections 02/25 - Increase escitalopram as above, consider increase in buspirone, and decrease lorazepam to 0.5 mg bid prn for now, but advised patient that this will be a short-term medication. She says she ran out of it at home, but per PDMP she filled a prescription 02/20/17 for #[address] Pina. 02/26 - Increase Lexapro to 20 mg. daily - Encourage mindfulness and distraction. 02/27 - Continue medications as above. First dose of Lexapro 20mg given this AM. - Discussed patient finding specific activities she could use as distraction such as reading, crossword puzzles, or taking a lap around the unit. Continue to encourage. (2) Diabetes 02/26 - art educator visits when needed - Reinforce diabetic teaching - Continue current meds and BSG's QID - Diabetic diet - Will need follow up PCP Discharge / Aftercare Planning Primary Care Physician: Name: Dr Pina Psychiatrist: Name: MANE - will be assigned upon intake Date of Appointment: Mar 10, 2017 Time of Appointment: 9:00 am Appointment Notes: [address] [facility] [id number] Therapist: Name: MANE Lozano Date of Appointment: Mar 10, 2017 Time of Appointment: 9:00 am Appointment Notes: [address] [facility] [address] [employer] Manager: Name: None Visit Code E&M Code: 35529 Inventory Assets Strengths: good support system, no previous psychiatric history, desire for treatment Needs: requires better control of anxiety, improve mood, education about diabetes disease process and management. Risk Factors Assessment : Yes /single/: Yes Higher / Fall in social status: No Health problems: Yes Mental Health Diagnoses: No Substance use disorders: No Previous attempt: No Previous psychiatric stay: No Hopelessness: Yes Smoker: No Protective Factors Assessment Catholic beliefs: No : No Responsible for young children: No Employed: No Stable relationships: Yes Supportive family: Yes Data Vital Signs Last 24 Hrs: Date Time Temp Pulse Resp B/P (MAP) Pulse Ox O2 Delivery O2 Flow Rate FiO2 02/27/17 06:47 36.8 64 16 109/72 60 112/76 02/26/17 20:45 67 16 111/76 Meds Administered Last 24 Hrs: Meds Administered (Past 24Hrs) Medications (Trade) Dose Ordered Sig/Marva Route Start Time Stop Time Status Last Admin Dose Admin Lorazepam (Ativan Tab) 0.5 mg BID PRN PO 02/25/17 11:45 03/22/17 14:59 02/26/17 22:10 0.5 MG Escitalopram Oxalate (Lexapro Tab) 15 mg QAM PO 02/26/17 09:00 02/26/17 11:53 DC 02/26/17 08:32 15 MG Escitalopram Oxalate (Lexapro Tab) 20 mg QAM PO 02/27/17 09:00 03/29/17 08:59 02/27/17 09:13 20 MG Lab Results Last 24 Hrs: Last 24 Hours Test 02/26/17 12:17 02/26/17 17:14 02/26/17 21:05 02/27/17 08:20 Bedside Glucose 130 mg/dl 138 mg/dl 136 mg/dl 168 mg/dl Problem Qualifiers (1) Diabetes: Diabetes mellitus type: type 2
[2017-02-27] MEDS: LORAZEPAM 0.5 MG TAB PO PRN ×2 (12:52→21:46)
[2017-02-27 21:27] VITALS: BP 105/70; PULSE 72
[2017-02-27] MEDS: SIMVASTATIN 40 MG TAB PO SCH (21:35)
[2017-02-27] MEDS: INSULIN GLARGINE SOLOSTAR 100 UNITS/ML 3 ML PEN SQ SCH (21:39)
[2017-02-27] MEDS: NYSTATIN POWDER 15GM BTL EXT PRN (22:10)
[2017-02-28 06:57] VITALS: BP_SYST 107; BP_SYST 108; BP_DIAS 73; BP_DIAS 74; PULSE 55; PULSE 58; TEMP 36.7
[2017-02-28] MEDS: ACETAMINOPHEN 325 MG TAB PO PRN (08:29)
[2017-02-28] MEDS: LEVOTHYROXINE 88 MCG TAB PO SCH (08:30)
[2017-02-28] MEDS: METOPROLOL TARTRATE 25 MG TAB PO SCH ×2 (08:30→21:36)
[2017-02-28] MEDS: BETAMETHASONE DIP AUG (DIPROLENE) 0.05% OINT 15 GM TUBE EXT SCH ×2 (08:30→21:32)
[2017-02-28] MEDS: ASPIRIN 81 MG ECTAB PO SCH (08:30)
[2017-02-28] MEDS: LISINOPRIL 40 MG TAB PO SCH (08:30)
[2017-02-28] MEDS: SPIRONOLACTONE 100 MG TAB PO SCH (08:30)
[2017-02-28] MEDS: METFORMIN HCL 500 MG TAB PO SCH ×2 (08:30→17:25)
[2017-02-28] MEDS: ESCITALOPRAM OXALATE 20 MG TAB PO SCH (08:30)
[2017-02-28] MEDS: LORAZEPAM 0.5 MG TAB PO PRN ×3 (08:31→22:28)
[2017-02-28] MEDS: INSULIN ASPART 100 UNITS/ML 3 ML PEN SC SCH ×4 (09:29→21:38)
--- NOTE | 2017-02-28 12:16 | Psychiatric Progress Notes ---
Progress Note Date of Service Feb 28, 2017. Interval History Yolanda Lua is a 56-year-old female admitted for inpatient treatment due to decreased functioning as a result of ruminations about glucose control for her longstanding diagnosis of diabetes. Chief Complaint "I'm feeling a little anxious". Subjective Patient was seen & assessed interval progress reviewed with Treatment Team. Staff reported ongoing obsessions with blood glucose readings and status of her meals. Report patient has blood sugar of 240 before lunch yesterday which upset her to tears. Anxiety about nutritional intake and blood sugar tested are reported to be ongoing. Pt was seen today to assess progress since admission. Pt states she continues to feel anxious. She admits that her blood sugar was "off" yesterday and that she cried when hearing it was 240 over lunch. She continues to voice concern about the kinds of food she is eating and whether or not she receives enough insulin to compensate for her intake. She states she had a conversation with a staff member yesterday evening in which it was suggested that her anxiety about her diabetes could actually be anxiety from being "scammed on the internet" that she has yet to deal with. Pt states she feels "stupid for sending money, but I was taught to help people". She states she plans to share these thoughts with the group today to receive additional feedback from staff and her peers. We discussed increasing her doses of buspirone which she agreed to as she still feels very anxious at mealtimes. She continues to endorse hopelessness, but denies active SI. She denies any side effects to medication thus far in her stay. Review of Systems Psych: denies symptoms other than stated above Constitutional: denied Cardiovascular: denied GI: denied Neurologic: denied Remainder of 10 body systems also reviewed and denied other than noted above. Sleep Information Total Hours of Sleep: 7.75 Meal Information Percent of Breakfast Consumed: 100 Percent of Lunch Consumed: 100 Percent of Dinner Consumed: 100 Mental Status Exam During interview pt is: alert and oriented, cooperative Appearance: appropriately dressed, disheveled (scrub pants and sweatshirt), other (overweight) Eye contact is: good Motor behavior is: steady gait & station, no abnormal motor movements Speech: normal in rate, rhythm & volume Affect: depressed, tearful (less so today), anxious Mood is: depressed, anxious Thought process: goal directed, clear, coherent, perseveration (recently elevated blood sugar) Thought content: preoccupation (with nutritional intake and blood sugar readings), reality based without delusions Suicidal thought are: denied (persistant hopelessness) Homicidal thoughts are: denied Hallucinations: denies auditory, denies visual Cognition: memory grossly intact, attention grossly intact, language grossly intact Intelligence estimated to be: average Insight: impaired Judgement: impaired Impression Consistent anxiety around mealtime and when questioning patient about her diabetes. She was receptive to conversations with staff yesterday to further explore her feelings related to the internet scam a few months ago. She plans to receive feedback on this in group today. Continuing to enforce distraction techniques at mealtimes and with blood sugar checks with limited compliance. Pt agreeable to increasing buspirone to better target anxiety. Aftercare in place, but requires ongoing inpatient hospitalization due to limited functioning and likely decline in health/function if she were to be released at this point in her stay. Plan (1) Anxiety about health 02/21/17 - Encourage use of buspirone 5mg TID prior to meal-time blood glucose testing to decrease anxiety. Risks, benefits, side effects, and alternatives discussed. Pt verbalized understanding and is agreeable to the plan. - Enforce scheduled blood glucose checks only - Encourage buspirone rather than PRN Ativan as she states she becomes "foggy " with Ativan use. Eventual hope to discontinue Ativan in favor of buspirone for anxiety control. - her illness anxiety appears atypical for her and most likely a symptom of her depression. able to appreciate illogical basis but struggles to self sooth. responded fairly to efforts at insight facilitation and increasing positive self -talk but required a great deal of reassurance still this am. - tolerating buspar. will consider dose escalation tomorrow pending efficacy today 02/23 - BuSpar seems to be demonstrating an acute therapeutic benefit in reducing her severe anxiety. Will increase to 7.5 mg by mouth 3 times a day to maximize effect watching for dizziness. 02/24 - Have the patient perform her own BSG's and insulin injections 02/25 - Increase escitalopram as above, consider increase in buspirone, and decrease lorazepam to 0.5 mg bid prn for now, but advised patient that this will be a short-term medication. She says she ran out of it at home, but per PDMP she filled a prescription 02/20/17 for [address] Pina. 02/26 - Increase Lexapro to 20 mg. daily - Encourage mindfulness and distraction. 02/27 - Continue medications as above. First dose of Lexapro 20mg given this AM. - Discussed patient finding specific activities she could use as distraction such as reading, crossword puzzles, or taking a lap around the unit. Continue to encourage. 02/28 - Increase buspirone to 10mg with meals to better target anxiety with blood sugar checks. Risks, benefits, alternatives, and side effects discussed. Pt is in agreement to the increased dose. Continue dose of Lexapro at 20mg qAM. Pt denies side effects. - Continue to encourage distraction techniques with glucose testing and meals. Redirect when approaching staff for reassurance in order to distract anxious thoughts. (2) Diabetes 02/26 - viticulture teacher visits when needed - Reinforce diabetic teaching - Continue current meds and BSG's QID - Diabetic diet - Will need follow up PCP Discharge / Aftercare Planning Primary Care Physician: Name: Dr Pina Psychiatrist: Name: MANE - will be assigned upon intake Date of Appointment: Mar 10, 2017 Time of Appointment: 9:00 am [facility] [address] [facility] [place] [address] Therapist: Name: MANE Lozano Date of Appointment: Mar 10, 2017 Time of Appointment: 9:00 am Appointment Notes: [address] [facility] [address] Medicaid Specialist: Name: None Visit Code E&M Code: 77036 Inventory Assets Strengths: good support system, no previous psychiatric history, desire for treatment Needs: requires better control of anxiety, improve mood, education about diabetes disease process and management. Risk Factors Assessment : Yes /single/: Yes Higher / Fall in social status: No Health problems: Yes Mental Health Diagnoses: No Substance use disorders: No Previous attempt: No Previous psychiatric stay: No Hopelessness: Yes Smoker: No Protective Factors Assessment Bahai beliefs: No : No Responsible for young children: No Employed: No Stable relationships: Yes Supportive family: Yes Data Vital Signs Last 24 Hrs: Date Time Temp Pulse Resp B/P (MAP) Pulse Ox O2 Delivery O2 Flow Rate FiO2 02/28/17 06:57 36.7 58 16 107/73 55 108/74 02/27/17 21:27 72 16 105/70 Meds Administered Last 24 Hrs: Meds Administered (Past 24Hrs) Medications (Trade) Dose Ordered Sig/Marva Route Start Time Stop Time Status Last Admin Dose Admin Escitalopram Oxalate (Lexapro Tab) 20 mg QAM PO 02/27/17 09:00 03/29/17 08:59 02/28/17 08:30 20 MG Lab Results Last 24 Hrs: Last 24 Hours Test 02/27/17 12:20 02/27/17 12:24 02/27/17 14:33 02/27/17 17:14 Bedside Glucose 249 mg/dl 240 mg/dl 163 mg/dl 101 mg/dl Test 02/27/17 20:40 02/28/17 07:59 Bedside Glucose 130 mg/dl 132 mg/dl Problem Qualifiers (1) Diabetes: Diabetes mellitus type: type 2
--- NOTE | 2017-02-28 12:41 | Pharmacy Progress Note ---
Pharmacy Glycemic Short Note 2 Date of Service Feb 28, 2017. OUTPATIENT ANTIDIABETIC REGIMEN: * Basalgar (insulin glargine) 25 units SQ HS * Humalog 10 units sQ TIDM * Metformin 1,000mg PO BIDM ASSESSMENT: * 56yo T2DM female with excellent control per recent A1c of 7.2% in 12/2016. * BSGs have been well controlled throughout admission on current regimen. * [facility] met with patient today and discussed goal BSGs, anxiety around meal trays/ CHO counting, and target BSGs. * Overall, I think that our discussion went very well. I reassured her that she is doing an excellent job with her diabetes management and that she is in good hands here at [facility]. Providers, nursing, and pharmacy are all looking out for her best interest. * Target BSG range is 100-180mg/dl. Patient does not like her BSG to drop below 100mg/dl. This causes anxiety that it may drop further to a low. Will set a max dose of NovoLog to 10 units to prevent overdosage. * No changes needed at this time. PLAN FOR INPATIENT GLYCEMIC CONTROL: * Outpatient oral diabetes medications * Continue Metformin 1,000mg PO BIDM * Basal insulin * Lantus 25 units SQ HS * Bolus insulin * NovoLog per scale ACHS or Q6hrs while NPO OR a MAX dose of 10 units * Goal Range: Low 110 mg/dL - High 140 mg/dL * Correction Factor: 20 mg/dL/unit * Nutritional / Prandial insulin per carb ratio of 1 unit per 6 grams CHO consumed
[2017-02-28 21:33] VITALS: BP 141/84; PULSE 74
[2017-02-28] MEDS: SIMVASTATIN 40 MG TAB PO SCH (21:36)
[2017-02-28] MEDS: INSULIN GLARGINE SOLOSTAR 100 UNITS/ML 3 ML PEN SQ SCH (21:37)
[2017-03-01] MEDS: ACETAMINOPHEN 325 MG TAB PO PRN (06:50)
[2017-03-01 07:07] VITALS: BP_SYST 115; BP_SYST 130; BP_DIAS 75; BP_DIAS 82; PULSE 58; PULSE 67; TEMP 36.6
[2017-03-01] MEDS: LEVOTHYROXINE 88 MCG TAB PO SCH (07:59)
[2017-03-01] MEDS: SPIRONOLACTONE 100 MG TAB PO SCH (08:00)
[2017-03-01] MEDS: ASPIRIN 81 MG ECTAB PO SCH (08:00)
[2017-03-01] MEDS: METFORMIN HCL 500 MG TAB PO SCH ×2 (08:01→18:25)
[2017-03-01] MEDS: METOPROLOL TARTRATE 25 MG TAB PO SCH ×2 (08:06→22:08)
[2017-03-01] MEDS: LISINOPRIL 40 MG TAB PO SCH (08:06)
[2017-03-01] MEDS: ESCITALOPRAM OXALATE 20 MG TAB PO SCH (08:06)
[2017-03-01] MEDS: BETAMETHASONE DIP AUG (DIPROLENE) 0.05% OINT 15 GM TUBE EXT SCH ×2 (08:11→22:04)
[2017-03-01] MEDS: INSULIN ASPART 100 UNITS/ML 3 ML PEN SC SCH ×4 (09:42→22:00)
[2017-03-01] MEDS: LORAZEPAM 0.5 MG TAB PO PRN ×2 (09:45→22:36)
--- NOTE | 2017-03-01 09:53 | Psychiatric Progress Notes ---
Progress Note Date of Service Mar 01, 2017. Interval History Yolanda Lua is a 56-year-old female admitted for inpatient treatment due to decreased functioning as a result of ruminations about glucose control for her longstanding diagnosis of diabetes. Chief Complaint "I'm a little anxious". Subjective Patient was seen & assessed interval progress reviewed with Nursing. Pt reportedly slept for 6.5 hours last evening with a prn dose of Ativan for anxiety. Pt's morning blood sugar was 155. Staff report pt is having ongoing ruminations and frequently requiring reassurance with eating and checking her blood sugar. Pt was seen today to assess progress since admission. Pt states she is a bit anxious as her blood sugar was 155 this morning and she is wondering what she will be able to eat for breakfast. She states she continues to get worked up about her levels and states she feels she is having to ask the nurses to make sure she can eat certain snacks. Pt feels that she has increased fatigue right after her dosing of BuSpar 10mg at mealtime for anxiety. Discussed starting Abilify to break the ruminative thoughts and patient expressed concern about her blood sugar increasing. Despite reassurance that we would be monitoring with lab work and that impact on cholesterol and blood glucose are not immediate , patient is apprehensive to begin an atypical to assist with her unresolved ruminations. She denies SI at this time, but continues to report hopelessness and feeling that we will not be able to help her with her anxiety. Review of Systems Psych: denies symptoms other than stated above Constitutional: denied Cardiovascular: denied GI: denied Neurologic: denied Remainder of 10 body systems also reviewed and denied other than noted above. Sleep Information Total Hours of Sleep: 6.50 Meal Information Percent of Breakfast Consumed: 100 Percent of Lunch Consumed: 100 Percent of Dinner Consumed: 100 Mental Status Exam During interview pt is: alert and oriented, cooperative Appearance: appropriately dressed, disheveled (wearing same outfit for several days), other (poor hygiene ) Eye contact is: good Motor behavior is: steady gait & station, no abnormal motor movements Speech: normal in rate, rhythm & volume Affect: depressed, tearful (when discussing anxiety), anxious Mood is: depressed, anxious Thought process: goal directed, clear, coherent, perseveration (about diabetes) Thought content: preoccupation (with food and blood sugar readings), reality based without delusions Suicidal thought are: denied (but ongoing hopelessness reported) Homicidal thoughts are: denied Hallucinations: denies auditory, denies visual Cognition: memory grossly intact, attention grossly intact, language grossly intact Intelligence estimated to be: average Insight: impaired Judgement: impaired Impression Ongoing anxiety in regard to blood sugar and food choices at mealtime. Pt relying heavily on staff for reassurance and approval of snacks and carbs at meals. Staff reported trying mindfulness and distraction techniques yesterday, but feel as though she is not able to fully participate at this time. Pt continues to question staff about blood sugar levels multiple times. Questions fatigue with buspirone 10mg at mealtime, will continue to monitor to see if this is an ongoing trend. Discussed starting low-dose Abilify to break cycle of ruminations. Risks, benefits, alternatives, and side effects were discussed. Pt was concerned at risk for increased blood glucose and cholesterol. She was reassured that we share her concern, but that we felt it was appropriate to help with her anxiety. Pt unwilling to start at this point in time, but agreed to patient information on Abilify which was provided to her from [facility]. Will plan to continue to encourage Abilify as it may be beneficial to improving anxiety and ruminations. Pt requires ongoing inpatient hospitalization due to limited functioning and likely decline in health/ function if she were to be released at this point in her stay. Plan (1) Anxiety about health 02/21/17 - Encourage use of buspirone 5mg TID prior to meal-time blood glucose testing to decrease anxiety. Risks, benefits, side effects, and alternatives discussed. Pt verbalized understanding and is agreeable to the plan. - Enforce scheduled blood glucose checks only - Encourage buspirone rather than PRN Ativan as she states she becomes "foggy " with Ativan use. Eventual hope to discontinue Ativan in favor of buspirone for anxiety control. - her illness anxiety appears atypical for her and most likely a symptom of her depression. able to appreciate illogical basis but struggles to self sooth. responded fairly to efforts at insight facilitation and increasing positive self -talk but required a great deal of reassurance still this am. - tolerating buspar. will consider dose escalation tomorrow pending efficacy today 02/23 - BuSpar seems to be demonstrating an acute therapeutic benefit in reducing her severe anxiety. Will increase to 7.5 mg by mouth 3 times a day to maximize effect watching for dizziness. 02/24 - Have the patient perform her own BSG's and insulin injections 02/25 - Increase escitalopram as above, consider increase in buspirone, and decrease lorazepam to 0.5 mg bid prn for now, but advised patient that this will be a short-term medication. She says she ran out of it at home, but per PDMP she filled a prescription 02/20/17 for #[address] Pina. 02/26 - Increase Lexapro to 20 mg. daily - Encourage mindfulness and distraction. 02/27 - Continue medications as above. First dose of Lexapro 20mg given this AM. - Discussed patient finding specific activities she could use as distraction such as reading, crossword puzzles, or taking a lap around the unit. Continue to encourage. 02/28 - Increase buspirone to 10mg with meals to better target anxiety with blood sugar checks. Risks, benefits, alternatives, and side effects discussed. Pt is in agreement to the increased dose. Continue dose of Lexapro at 20mg qAM. Pt denies side effects. - Continue to encourage distraction techniques with glucose testing and meals. Redirect when approaching staff for reassurance in order to distract anxious thoughts. \\ 03/01 - Continue medication regimen as above. - Pt not agreeable to starting low-dose Abilify at this time due to risk of elevated cholesterol and blood glucose. Encouragement was given as to anticipated benefits of the medication despite risk of influence on diabetes, but patient is not comfortable with starting today. Patient information from [facility] was provided and patient was encouraged to review it as she has shown minimal improvement with current regimen alone. - Continue to encourage distraction techniques and mindfulness practices. Redirect to these techniques when patient is ruminating about blood sugar levels and snack choices. (2) Diabetes 02/26 - life educator visits when needed - Reinforce diabetic teaching - Continue current meds and BSG's QID - Diabetic diet - Will need follow up PCP Discharge / Aftercare Planning Primary Care Physician: Name: Dr Pina Psychiatrist: Name: [facility] - will be assigned upon intake Date of Appointment: Mar 10, 2017 Time of Appointment: 9:00 am Appointment Notes: [address] [place] [address] Therapist: Name: [facility] Janie Kiana Lozano Date of Appointment: Mar 10, 2017 Time of Appointment: 9:00 am Appointment Notes: [address] [facility] [place] [address] Glass Smoother: Name: Maxim Visit Code E&M Code: 73851 Inventory Assets Strengths: good support system, no previous psychiatric history, desire for treatment Needs: requires better control of anxiety, improve mood, education about diabetes disease process and management. Risk Factors Assessment : Yes /single/: Yes Higher / Fall in social status: No Health problems: Yes Mental Health Diagnoses: No Substance use disorders: No Previous attempt: No Previous psychiatric stay: No Hopelessness: Yes Smoker: No Protective Factors Assessment Roman Catholic beliefs: No : No Responsible for young children: No Employed: No Stable relationships: Yes Supportive family: Yes Data Vital Signs Last 24 Hrs: Date Time Temp Pulse Resp B/P (MAP) Pulse Ox O2 Delivery O2 Flow Rate FiO2 03/01/17 07:07 36.6 58 20 115/75 67 130/82 02/28/17 21:33 74 16 141/84 Meds Administered Last 24 Hrs: Meds Administered (Past 24Hrs) Medications (Trade) Dose Ordered Sig/Marva Route Start Time Stop Time Status Last Admin Dose Admin Buspirone HCl (Buspar Tab) 10 mg AC PO 03/01/17 08:00 03/31/17 07:59 03/01/17 07:59 10 MG Lab Results Last 24 Hrs: Last 24 Hours Test 02/28/17 12:14 02/28/17 17:14 02/28/17 21:09 03/01/17 08:05 Bedside Glucose 146 mg/dl 124 mg/dl 117 mg/dl 155 mg/dl Problem Qualifiers (1) Diabetes: Diabetes mellitus type: type 2
[2017-03-01] MEDS: SIMVASTATIN 40 MG TAB PO SCH (22:04)
[2017-03-01] MEDS: INSULIN GLARGINE SOLOSTAR 100 UNITS/ML 3 ML PEN SQ SCH (22:13)
[2017-03-02] MEDS: ACETAMINOPHEN 325 MG TAB PO PRN (06:49)
[2017-03-02 07:05] VITALS: BP_SYST 116; BP_SYST 123; BP_DIAS 80; BP_DIAS 81; PULSE 62; PULSE 65; TEMP 36.5
[2017-03-02] MEDS: BETAMETHASONE DIP AUG (DIPROLENE) 0.05% OINT 15 GM TUBE EXT SCH ×2 (08:21→21:50)
[2017-03-02] MEDS: SPIRONOLACTONE 100 MG TAB PO SCH (08:22)
[2017-03-02] MEDS: ASPIRIN 81 MG ECTAB PO SCH (08:23)
[2017-03-02] MEDS: ESCITALOPRAM OXALATE 20 MG TAB PO SCH (08:23)
[2017-03-02] MEDS: METOPROLOL TARTRATE 25 MG TAB PO SCH ×2 (08:23→21:51)
[2017-03-02] MEDS: METFORMIN HCL 500 MG TAB PO SCH ×2 (08:23→18:39)
[2017-03-02] MEDS: LISINOPRIL 40 MG TAB PO SCH (08:24)
[2017-03-02] MEDS: LEVOTHYROXINE 88 MCG TAB PO SCH (08:26)
[2017-03-02] MEDS: INSULIN ASPART 100 UNITS/ML 3 ML PEN SC SCH ×4 (09:28→22:00)
--- NOTE | 2017-03-02 11:20 | Pharmacy Progress Note ---
Pharmacy Glycemic Short Note 2 Date of Service Mar 02, 2017. OUTPATIENT ANTIDIABETIC REGIMEN: * Basalgar (insulin glargine) 25 units SQ HS * Humalog 10 units sQ TIDM * Metformin 1,000mg PO BIDM ASSESSMENT: Item Value Date Time Bedside Glucose 155 mg/dl H 03/01/17 0805 Bedside Glucose 237 mg/dl H 03/01/17 1203 Bedside Glucose 246 mg/dl H 03/01/17 1206 Bedside Glucose 244 mg/dl H 03/01/17 1547 Bedside Glucose 80 mg/dl 03/01/17 2110 * 56yo T2DM female with excellent control per recent A1c of 7.2% in 12/2016. * BSGs have been well controlled throughout admission on current regimen. * [facility] met with patient 02/28/17 and discussed goal BSGs, anxiety around meal trays/CHO counting, and target BSGs. * Overall, I think that our discussion went very well. I reassured her that she is doing an excellent job with her diabetes management and that she is in good hands here at [facility]. Providers, nursing, and pharmacy are all looking out for her best interest. * Target BSG range is 100-180mg/dl. Patient does not like her BSG to drop below 100mg/dl. This causes anxiety that it may drop further to a low. * I set a max dose of NovoLog to 10 units to prevent overdosage and large drop in BSG which gives her anxiety. * Yesterday before lunch her BSG was 246 mg/dl. She should have received 12 units of NovoLog but after discussion with nursing I told her to only give 10 units to prevent her BSG from falling rapidly. * Unfortunately, her BSG was then elevated prior to dinner at 244 mg/dl. Full ordered dose of NovoLog 14 units given for dinner which caused her BSG to drop to 80mg/dl. Yolanda does not like her BSG to be below 100 mg/dl. Will change max dose of NovoLog from 10 units to 12 units. PLAN FOR INPATIENT GLYCEMIC CONTROL: * Outpatient oral diabetes medications * Continue Metformin 1,000mg PO BIDM * Basal insulin * Lantus 25 units SQ HS * Bolus insulin * NovoLog per scale ACHS or Q6hrs while NPO OR a MAX dose of 12 units * Goal Range: Low 110 mg/dL - High 140 mg/dL * Correction Factor: 20 mg/dL/unit * Nutritional / Prandial insulin per carb ratio of 1 unit per 6 grams CHO consumed
[2017-03-02] MEDS ORDERED: BENZTROPINE MESYLATE 0.5 MG TAB PO PRN (12:30)
[2017-03-02] MEDS: HALOPERIDOL 1 MG TAB PO SCH ×2 (13:13→21:48)
[2017-03-02] MEDS: LORAZEPAM 0.5 MG TAB PO PRN ×2 (14:21→22:31)
[2017-03-02] MEDS: HALOPERIDOL 1 MG TAB PO PRN (17:33)
--- NOTE | 2017-03-02 18:27 | Psychiatric Progress Notes ---
Progress Note Date of Service Mar 02, 2017. Interval History Yolanda Lua is a 56-year-old female admitted for inpatient treatment due to decreased functioning as a result of ruminations about glucose control for her longstanding diagnosis of diabetes. Chief Complaint "I just don't understand how it could go so high", referring to her blood sugars Subjective Patient was seen & assessed interval progress reviewed with Nursing. very "fretful" and obsessive per staff. Patient is unable to function currently, tearful as sugar went to 200 after a snack. Patient is unable to be redirected and is not reality based re: the acute significance. Gave option of not knowing her sugar and she feels that this would be "torture". Review of Systems Psych: denies symptoms other than stated above Constitutional: denied Cardiovascular: denied GI: denied Neurologic: denied Remainder of 10 body systems also reviewed and denied other than noted above. Sleep Information Total Hours of Sleep: 6.50 Meal Information Percent of Breakfast Consumed: 100 Percent of Lunch Consumed: 100 Percent of Dinner Consumed: 75 Mental Status Exam During interview pt is: alert and oriented, cooperative Appearance: appropriately dressed, disheveled (wearing same outfit for several days) Eye contact is: good Motor behavior is: steady gait & station, no abnormal motor movements Speech: normal in rate, rhythm & volume Affect: depressed, tearful (when discussing anxiety), anxious Mood is: depressed, anxious Thought process: perseveration (about diabetes) Thought content: preoccupation (with food and blood sugar readings), reality based without delusions Suicidal thought are: present, Plan: denied, Intent: denied Homicidal thoughts are: denied Hallucinations: denies auditory, denies visual Cognition: memory grossly intact, attention grossly intact, language grossly intact Intelligence estimated to be: average Insight: impaired Judgement: impaired Impression Ongoing anxiety in regard to blood sugar and food choices at mealtime. Pt relying heavily on staff for reassurance and approval of snacks and carbs at meals. Patient would be unable to function outside of the milieu. She is more depressed today and resistant to eating. She has repeatedly refused adjunctive antipsychotic up to this point for her ruminations but is now agreeable to low dose Haldol. Plan (1) Anxiety about health 02/21/17 - Encourage use of buspirone 5mg TID prior to meal-time blood glucose testing to decrease anxiety. Risks, benefits, side effects, and alternatives discussed. Pt verbalized understanding and is agreeable to the plan. - Enforce scheduled blood glucose checks only - Encourage buspirone rather than PRN Ativan as she states she becomes "foggy " with Ativan use. Eventual hope to discontinue Ativan in favor of buspirone for anxiety control. - her illness anxiety appears atypical for her and most likely a symptom of her depression. able to appreciate illogical basis but struggles to self sooth. responded fairly to efforts at insight facilitation and increasing positive self -talk but required a great deal of reassurance still this am. - tolerating buspar. will consider dose escalation tomorrow pending efficacy today 02/23 - BuSpar seems to be demonstrating an acute therapeutic benefit in reducing her severe anxiety. Will increase to 7.5 mg by mouth 3 times a day to maximize effect watching for dizziness. 02/24 - Have the patient perform her own BSG's and insulin injections 02/25 - Increase escitalopram as above, consider increase in buspirone, and decrease lorazepam to 0.5 mg bid prn for now, but advised patient that this will be a short-term medication. She says she ran out of it at home, but per PDMP she filled a prescription 02/20/17 for [address] Pina. 02/26 - Increase Lexapro to 20 mg. daily - Encourage mindfulness and distraction. 02/27 - Continue medications as above. First dose of Lexapro 20mg given this AM. - Discussed patient finding specific activities she could use as distraction such as reading, crossword puzzles, or taking a lap around the unit. Continue to encourage. 02/28 - Increase buspirone to 10mg with meals to better target anxiety with blood sugar checks. Risks, benefits, alternatives, and side effects discussed. Pt is in agreement to the increased dose. Continue dose of Lexapro at 20mg qAM. Pt denies side effects. - Continue to encourage distraction techniques with glucose testing and meals. Redirect when approaching staff for reassurance in order to distract anxious thoughts. \\ 03/01 - Continue medication regimen as above. - Pt not agreeable to starting low-dose Abilify at this time due to risk of elevated cholesterol and blood glucose. Encouragement was given as to anticipated benefits of the medication despite risk of influence on diabetes, but patient is not comfortable with starting today. Patient information from Up -To-Date was provided and patient was encouraged to review it as she has shown minimal improvement with current regimen alone. - Continue to encourage distraction techniques and mindfulness practices. Redirect to these techniques when patient is ruminating about blood sugar levels and snack choices. 03/02--has had no improvement on current SSRI and Buspar, symptoms are bordering on delusional proportions and patient unwilling to take atypical given potential risks re: hyperglycemia. Reviewed risks of Haldol, need for skilled nursing monitoring for TD, mainly for acute symptomatic relief so can taper SSRI and Buspar in favor of a trial of another agent. (2) Diabetes 02/26 - medical educator visits when needed - Reinforce diabetic teaching - Continue current meds and BSG's QID - Diabetic diet - Will need follow up PCP Discharge / Aftercare Planning Primary Care Physician: Name: Dr Pina Psychiatrist: Name: JACQUES - will be assigned upon intake Date of Appointment: Mar 10, 2017 Time of Appointment: 9:00 am Appointment Notes: [address] [facility] [id number] Therapist: Name: [facility] Janie Lozano Date of Appointment: Mar 10, 2017 Time of Appointment: 9:00 am Appointment Notes: [address] [facility] [id number] Combatant Diver Officer: Name: Maxim Visit Code E&M Code: 10277 Inventory Assets Strengths: good support system, no previous psychiatric history, desire for treatment Needs: requires better control of anxiety, improve mood, education about diabetes disease process and management. Risk Factors Assessment : Yes /single/: Yes Higher / Fall in social status: No Health problems: Yes Mental Health Diagnoses: No Substance use disorders: No Previous attempt: No Previous psychiatric stay: No Hopelessness: Yes Smoker: No Protective Factors Assessment Rastafari beliefs: No : No Responsible for young children: No Employed: No Stable relationships: Yes Supportive family: Yes Data Vital Signs Last 24 Hrs: Date Time Temp Pulse Resp B/P (MAP) Pulse Ox O2 Delivery O2 Flow Rate FiO2 03/02/17 07:05 36.5 65 20 123/81 62 116/80 Meds Administered Last 24 Hrs: Meds Administered (Past 24Hrs) Medications (Trade) Dose Ordered Sig/Marva Route Start Time Stop Time Status Last Admin Dose Admin Buspirone HCl (Buspar Tab) 10 mg AC PO 03/01/17 08:00 03/31/17 07:59 03/02/17 17:32 10 MG Haloperidol (Haldol Tab) 1 mg BID PO 03/02/17 12:30 04/01/17 12:29 03/02/17 13:13 1 MG Haloperidol (Haldol Tab) 1 mg Q4 PRN PO 03/02/17 12:30 04/01/17 12:29 03/02/17 17:33 1 MG Lab Results Last 24 Hrs: Last 24 Hours Test 03/01/17 21:10 03/02/17 08:29 03/02/17 12:13 03/02/17 17:25 Bedside Glucose 80 mg/dl 134 mg/dl 200 mg/dl 193 mg/dl Problem Qualifiers (1) Diabetes: Diabetes mellitus type: type 2
[2017-03-02] MEDS: CALCIUM CARBONATE 500 MG CHEWABLE PO PRN ×2 (19:04→22:34)
[2017-03-02] MEDS: SIMVASTATIN 40 MG TAB PO SCH (21:50)
[2017-03-02 21:52] VITALS: BP 95/67; PULSE 70
[2017-03-02] MEDS: INSULIN GLARGINE SOLOSTAR 100 UNITS/ML 3 ML PEN SQ SCH (22:05)
[2017-03-03] MEDS: ACETAMINOPHEN 325 MG TAB PO PRN (06:39)
[2017-03-03 06:59] VITALS: BP_SYST 121; BP_SYST 122; BP_DIAS 77; BP_DIAS 79; PULSE 75; PULSE 77; TEMP 36.8
[2017-03-03] MEDS: LEVOTHYROXINE 88 MCG TAB PO SCH (07:56)
[2017-03-03] MEDS: BETAMETHASONE DIP AUG (DIPROLENE) 0.05% OINT 15 GM TUBE EXT SCH ×2 (08:54→22:00)
[2017-03-03] MEDS: SPIRONOLACTONE 100 MG TAB PO SCH (08:55)
[2017-03-03] MEDS: METFORMIN HCL 500 MG TAB PO SCH ×2 (08:55→17:18)
[2017-03-03] MEDS: ASPIRIN 81 MG ECTAB PO SCH (08:55)
[2017-03-03] MEDS: LISINOPRIL 40 MG TAB PO SCH (08:56)
[2017-03-03] MEDS: METOPROLOL TARTRATE 25 MG TAB PO SCH ×2 (08:56→21:39)
[2017-03-03] MEDS: HALOPERIDOL 1 MG TAB PO SCH ×2 (08:57→21:37)
[2017-03-03] MEDS ORDERED: ESCITALOPRAM OXALATE 10 MG TAB PO SCH (09:00)
[2017-03-03] MEDS: INSULIN ASPART 100 UNITS/ML 3 ML PEN SC SCH ×4 (09:06→21:44)
--- NOTE | 2017-03-03 09:07 | Pharmacy Progress Note ---
Pharmacy Glycemic Short Note 2 Date of Service Mar 03, 2017. OUTPATIENT ANTIDIABETIC REGIMEN: * Basalgar (insulin glargine) 25 units SQ HS * Humalog 10 units sQ TIDM * Metformin 1,000mg PO BIDM Item Value Date Time Bedside Glucose 134 mg/dl H 03/02/17 0829 Bedside Glucose 200 mg/dl H 03/02/17 1213 Bedside Glucose 193 mg/dl H 03/02/17 1725 Bedside Glucose 137 mg/dl H 03/02/17 2053 Bedside Glucose 140 mg/dl H 03/03/17 0800 ASSESSMENT: * 56yo T2DM female with excellent control per recent A1c of 7.2% in 12/2016. * BSGs have been well controlled throughout admission on current regimen. * [facility] met with patient 02/28/17 and discussed goal BSGs, anxiety around meal trays/CHO counting, and target BSGs. * Overall, I think that our discussion went very well. I reassured her that she is doing an excellent job with her diabetes management and that she is in good hands here at [facility]. Providers, nursing, and pharmacy are all looking out for her best interest. * Target BSG range is 100-180mg/dl. Patient does not like her BSG to drop below 100mg/dl or above 200mg/dl. This causes anxiety that it may drop further to a low. Therefore, set a max dose of Novolog 12 units based on this admission glycemic data trends. * Patient with a few elevated BSGs yesterday secondary to snacking without additional CHO coverage. Overall glycemic control is excellent on current regimen. * BSGs ranging 134-200 mg/dl over the past 24hrs * Pt is receiving ~ 60 units insulin/day but received 76 units yesterday due to the elevated BSGs * Pre-lunch BSG tends to be the highest of the day --> will increase the NovoLog coverage given at breakfast to combat this rise in BSG which is a source of anxiety for her. * AM fasting is in range but could be lower based on age and co-morbidities -- > increased Lantus dose slightly for better 24hr BSG control. * Pharmacy has been making very minor changes to insulin regimen daily to maintain this level of control. PLAN FOR INPATIENT GLYCEMIC CONTROL: * Outpatient oral diabetes medications * Continue Metformin 1,000mg PO BIDM * Basal insulin * Lantus 28 units SQ HS * Bolus insulin * NovoLog per scale ACHS or Q6hrs while NPO * Goal Range: Low 110 mg/dL - High 140 mg/dL Breakfast Only * Correction Factor: 20 mg/dL/unit * Nutritional / Prandial insulin per carb ratio of 1 unit per 5 grams CHO consumed * MAX dose of 12 units Lunch, Dinner, & HS * Correction Factor: 20 mg/dL/unit * Nutritional / Prandial insulin per carb ratio of 1 unit per 6 grams CHO consumed * MAX dose of 12 units
[2017-03-03] MEDS: HALOPERIDOL 1 MG TAB PO PRN ×3 (10:44→19:42)
[2017-03-03] MEDS ORDERED: ESCITALOPRAM OXALATE 10 MG TAB PO ONE (11:43)
--- NOTE | 2017-03-03 11:43 | Psychiatric Progress Notes ---
Progress Note Date of Service Mar 03, 2017. Interval History Yolanda Lua is a 56-year-old female admitted for inpatient treatment due to decreased functioning as a result of ruminations about glucose control for her longstanding diagnosis of diabetes. Chief Complaint "It was rough. ". Subjective Patient was seen & assessed interval progress reviewed with Treatment Team. The patient remains focused on her blood sugars, catastrophizing about many possible negative outcomes. She is difficult to redirect, and when asked how she can combat the rumination, her standard response is "to think good thoughts ", but seems unable to utilize this simple intervention. Haldol was started over the weekend and she feels that is has helped her anxiety "a little bit" and has been asking for prns. She had another visit from her brother, but her mother with whom she lives has not visited. She is starting to worry about drawing up her own insulin when she gets home, preferring the insulin pens we use here and wondering if we can prescribe one upon discharge. She is tearful saying that she worries we are going to "kick me out of here too soon" and presently doesn't feel ready to return home. She is denying SI today. Reports good sleep and appetite. Review of Systems Constitutional: No fever, No chills, No sweats, No weight loss, No weakness, No fatigue, No problem reported ENT: No hearing loss, No unusual epistaxis, No nasal symptoms, No sore throat, No tinnitus, No dental problems, No trouble swallowing, No problem reported Respiratory: No cough, No sputum, No wheezing, No shortness of breath, No dyspnea on exertion, No dyspnea at rest, No hemoptysis, No problem reported Cardiovascular: No chest pain, No orthopnea, No PND, No edema, No claudication , No palpitations, No problem reported Musculoskeletal: No joint pain, No muscle pain, No swelling, No calf pain, No problem reported Neurologic: No memory loss, No paralysis, No weakness, No numbness/tingling, No vertigo, No balance problems, No problem reported Psychiatric: + anxiety Integumentary: No rash, No itch, No new/changing skin lesions, No color change , No bleeding, No problem reported Sleep Information Total Hours of Sleep: 6.50 Meal Information Percent of Breakfast Consumed: 80 Percent of Lunch Consumed: 100 Percent of Dinner Consumed: 75 Mental Status Exam During interview pt is: alert and oriented, cooperative Appearance: appropriately dressed, disheveled (wearing same outfit for several days) Eye contact is: good Motor behavior is: steady gait & station, no abnormal motor movements Speech: normal in rate, rhythm & volume Affect: depressed, tearful (when discussing anxiety), anxious Mood is: depressed, anxious Thought process: perseveration (about diabetes) Thought content: preoccupation (with food and blood sugar readings), reality based without delusions Suicidal thought are: present, Plan: denied, Intent: denied Homicidal thoughts are: denied Hallucinations: denies auditory, denies visual Cognition: memory grossly intact, attention grossly intact, language grossly intact Intelligence estimated to be: average Insight: impaired Judgement: impaired Impression Remains anxious, ruminative. Haldol 1 mg. BID started yesterday with small results. Will tally 24 hr use including prn's and adjust scheduled dose tomorrow. She remains poorly functional, but in the same breath, I'm not sure that she will feel ready to discharge unless she is completely anxiety free, which is not a reasonable expectation. We are trying to step her down at discharge to a higher level of service than she previously had as an outpatient. Reviewed SSRI versus SNRI with patient, who would like to continue on Lexapro 20 mg with the possibility of going to 30 mg. if needed, but will need to be on 20 mg. for several weeks to determine benefit. Plan (1) Anxiety about health 02/21/17 - Encourage use of buspirone 5mg TID prior to meal-time blood glucose testing to decrease anxiety. Risks, benefits, side effects, and alternatives discussed. Pt verbalized understanding and is agreeable to the plan. - Enforce scheduled blood glucose checks only - Encourage buspirone rather than PRN Ativan as she states she becomes "foggy " with Ativan use. Eventual hope to discontinue Ativan in favor of buspirone for anxiety control. - her illness anxiety appears atypical for her and most likely a symptom of her depression. able to appreciate illogical basis but struggles to self sooth. responded fairly to efforts at insight facilitation and increasing positive self -talk but required a great deal of reassurance still this am. - tolerating buspar. will consider dose escalation tomorrow pending efficacy today 02/23 - BuSpar seems to be demonstrating an acute therapeutic benefit in reducing her severe anxiety. Will increase to 7.5 mg by mouth 3 times a day to maximize effect watching for dizziness. 02/24 - Have the patient perform her own BSG's and insulin injections 02/25 - Increase escitalopram as above, consider increase in buspirone, and decrease lorazepam to 0.5 mg bid prn for now, but advised patient that this will be a short-term medication. She says she ran out of it at home, but per PDMP she filled a prescription 02/20/17 for #[address] Pina. 02/26 - Increase Lexapro to 20 mg. daily - Encourage mindfulness and distraction. 02/27 - Continue medications as above. First dose of Lexapro 20mg given this AM. - Discussed patient finding specific activities she could use as distraction such as reading, crossword puzzles, or taking a lap around the unit. Continue to encourage. 02/28 - Increase buspirone to 10mg with meals to better target anxiety with blood sugar checks. Risks, benefits, alternatives, and side effects discussed. Pt is in agreement to the increased dose. Continue dose of Lexapro at 20mg qAM. Pt denies side effects. - Continue to encourage distraction techniques with glucose testing and meals. Redirect when approaching staff for reassurance in order to distract anxious thoughts. \\ 03/01 - Continue medication regimen as above. - Pt not agreeable to starting low-dose Abilify at this time due to risk of elevated cholesterol and blood glucose. Encouragement was given as to anticipated benefits of the medication despite risk of influence on diabetes, but patient is not comfortable with starting today. Patient information from Up -To-Date was provided and patient was encouraged to review it as she has shown minimal improvement with current regimen alone. - Continue to encourage distraction techniques and mindfulness practices. Redirect to these techniques when patient is ruminating about blood sugar levels and snack choices. 03/02--has had no improvement on current SSRI and Buspar, symptoms are bordering on delusional proportions and patient unwilling to take atypical given potential risks re: hyperglycemia. Reviewed risks of Haldol, need for recruiting team lead monitoring for TD, mainly for acute symptomatic relief so can taper SSRI and Buspar in favor of a trial of another agent. (2) Diabetes 02/26 - global account manager visits when needed - Reinforce diabetic teaching - Continue current meds and BSG's QID - Diabetic diet - Will need follow up PCP Discharge / Aftercare Planning Primary Care Physician: Name: Dr Pina Psychiatrist: Name: MANE - will be assigned upon intake Date of Appointment: Mar 10, 2017 Time of Appointment: 9:00 am [facility] [address] The[facility]ist: Name: [facility] - Kiana WuLiu Date of Appointment: Mar 10, 2017 Time of Appointment: 9:00 am Appointment Notes: [address] [facility] [address] Lens Blocker: Name: None Visit Code E&M Code: 86032 Inventory Assets Strengths: good support system, no previous psychiatric history, desire for treatment Needs: requires better control of anxiety, improve mood, education about diabetes disease process and management. Risk Factors Assessment : Yes /single/: Yes Higher / Fall in social status: No Health problems: Yes Mental Health Diagnoses: No Substance use disorders: No Previous attempt: No Previous psychiatric stay: No Hopelessness: Yes Smoker: No Protective Factors Assessment Oriental Orthodox beliefs: No : No Responsible for young children: No Employed: No Stable relationships: Yes Supportive family: Yes Data Vital Signs Last 24 Hrs: Date Time Temp Pulse Resp B/P (MAP) Pulse Ox O2 Delivery O2 Flow Rate FiO2 03/03/17 06:59 36.8 77 16 122/77 75 121/79 03/02/17 21:52 70 18 95/67 Meds Administered Last 24 Hrs: Meds Administered (Past 24Hrs) Medications (Trade) Dose Ordered Sig/Marva Route Start Time Stop Time Status Last Admin Dose Admin Haloperidol (Haldol Tab) 1 mg BID PO 03/02/17 12:30 04/01/17 12:29 03/03/17 08:57 1 MG Haloperidol (Haldol Tab) 1 mg Q4 PRN PO 03/02/17 12:30 04/01/17 12:29 03/03/17 10:44 1 MG Insulin Glargine (Lantus Solostar Pen) 28 units HS SQ 03/02/17 22:00 04/01/17 21:59 03/02/17 22:05 28 UNITS Insulin Aspart (novoLOG ASPART) SLIDING SCALE QDB SC 03/03/17 09:00 04/02/17 08:59 03/03/17 09:06 8 UNITS Insulin Aspart (novoLOG ASPART) SLIDING SCALE TID@1200,1715,2200 SC 03/02/17 17:15 04/01/17 17:14 03/02/17 22:00 5 UNITS Calcium Carbonate (Tums Chew Tab) 500 mg QID PRN PO 03/02/17 16:15 04/01/17 16:14 03/02/17 22:34 500 MG Escitalopram Oxalate (Lexapro Tab) 10 mg QAM PO 03/03/17 09:00 03/29/17 08:59 03/03/17 08:56 10 MG Lab Results Last 24 Hrs: Last 24 Hours Test 03/02/17 12:13 03/02/17 17:25 03/02/17 20:53 03/03/17 08:00 Bedside Glucose 200 mg/dl 193 mg/dl 137 mg/dl 140 mg/dl Problem Qualifiers (1) Diabetes: Diabetes mellitus type: type 2
[2017-03-03] MEDS: NYSTATIN POWDER 15GM BTL EXT PRN (18:55)
[2017-03-03] MEDS: SIMVASTATIN 40 MG TAB PO SCH (21:36)
[2017-03-03] MEDS: INSULIN GLARGINE SOLOSTAR 100 UNITS/ML 3 ML PEN SQ SCH (22:02)
[2017-03-03] MEDS: LORAZEPAM 0.5 MG TAB PO PRN (22:03)
[2017-03-04] MEDS: ACETAMINOPHEN 325 MG TAB PO PRN (06:51)
[2017-03-04 07:00] VITALS: BP_SYST 118; BP_SYST 127; BP_DIAS 79; BP_DIAS 80; PULSE 60; PULSE 71; TEMP 36.7
[2017-03-04] MEDS: HALOPERIDOL 1 MG TAB PO SCH ×2 (07:56→21:06)
[2017-03-04] MEDS: LEVOTHYROXINE 88 MCG TAB PO SCH (07:56)
[2017-03-04] MEDS: ASPIRIN 81 MG ECTAB PO SCH (07:56)
[2017-03-04] MEDS: METFORMIN HCL 500 MG TAB PO SCH ×2 (07:56→18:17)
[2017-03-04] MEDS: SPIRONOLACTONE 100 MG TAB PO SCH (07:56)
[2017-03-04] MEDS: LISINOPRIL 40 MG TAB PO SCH (07:57)
[2017-03-04] MEDS: ESCITALOPRAM OXALATE 20 MG TAB PO SCH (07:57)
[2017-03-04] MEDS: METOPROLOL TARTRATE 25 MG TAB PO SCH ×2 (07:57→21:06)
[2017-03-04] MEDS: BETAMETHASONE DIP AUG (DIPROLENE) 0.05% OINT 15 GM TUBE EXT SCH ×2 (07:57→21:07)
[2017-03-04] MEDS: INSULIN ASPART 100 UNITS/ML 3 ML PEN SC SCH (09:14)
[2017-03-04] MEDS: LORAZEPAM 0.5 MG TAB PO PRN (10:57)
--- NOTE | 2017-03-04 11:47 | Psychiatric Progress Notes ---
Progress Note Date of Service Mar 04, 2017. Interval History Yolanda Lua is a 56-year-old female admitted for inpatient treatment due to decreased functioning as a result of ruminations about glucose control for her longstanding diagnosis of diabetes. Chief Complaint "A little bit better.". Subjective Patient was seen & assessed interval progress reviewed with Treatment Team. The patient says that she is a little better with her anxiety, but remains focused on blood sugars. Nursing reports that she was able to shower last evening without an attendant. She says that she tries to keep her mind off of her anxiety by distracting herself with puzzles, but still feels like "a dog chasing his tail". She rates her mood today 5/10 and denies SI. She feels that the haldol has been some helpful to her anxiety but reports feeling so tired that she is falling asleep in groups. Appetite and sleep are good. She says that she has never attended the diabetic support group, and continues to refuse to attend Psych Rehab, but willing for someone to come to her in her home. She will be returning to live with mother, but hopes someday to get her own place again. We discuss the fact that she has made progress and will need to continue to work on her issues as an OP, and we discuss that we may discharge on . She is immediately anxious about this, feeling like she isn't ready. We discuss making some plans for the immediate couple days she gets home so that she has things to do, and not allow herself to sit with her anxiety and ruminate. Review of Systems Constitutional: + fatigue ENT: No hearing loss, No unusual epistaxis, No nasal symptoms, No sore throat, No tinnitus, No dental problems, No trouble swallowing, No problem reported Respiratory: No cough, No sputum, No wheezing, No shortness of breath, No dyspnea on exertion, No dyspnea at rest, No hemoptysis, No problem reported Cardiovascular: No chest pain, No orthopnea, No PND, No edema, No claudication , No palpitations, No problem reported Abdomen: No pain, No nausea, No vomiting, No diarrhea, No constipation, No GI bleeding, No problem reported Musculoskeletal: No joint pain, No muscle pain, No swelling, No calf pain, No problem reported Neurologic: No memory loss, No paralysis, No weakness, No numbness/tingling, No vertigo, No balance problems, No problem reported Psychiatric: + anxiety Integumentary: No rash, No itch, No new/changing skin lesions, No color change , No bleeding, No problem reported Sleep Information Total Hours of Sleep: 6.50 Meal Information Percent of Breakfast Consumed: 98 Percent of Lunch Consumed: 100 Percent of Dinner Consumed: 100 Mental Status Exam During interview pt is: alert and oriented, cooperative Appearance: appropriately dressed, disheveled (wearing same outfit for several days) Eye contact is: good Motor behavior is: steady gait & station, no abnormal motor movements Speech: normal in rate, rhythm & volume Affect: depressed, tearful (when discussing discharge), anxious Mood is: depressed, anxious Thought process: perseveration (about diabetes) Thought content: preoccupation (with food and blood sugar readings), reality based without delusions Suicidal thought are: present, Plan: denied, Intent: denied Homicidal thoughts are: denied Hallucinations: denies auditory, denies visual Cognition: memory grossly intact, attention grossly intact, language grossly intact Intelligence estimated to be: average Insight: impaired Judgement: impaired Impression Remains anxious, ruminative. Haldol 1 mg. BID started yesterday with small results, and complaining of sedation. Overall, she is improved over admission, tends to thrive when in the presence of peers and the support of others. She expects that her anxiety will be completely gone by the time she goes home, which is not the case. Her medications will need time before adjustment ( lexapro), and cannot up titrate her haldol due to sedation. We will help walk her through the steps necessary to continue her work at home including observing her drawing up and injecting her own humalog, continuing to check her own sugars, obtaining the Diabetic Support Group information. She has not been suicidal for days now, and she may experience some decompensation, knowing that she will be going home on , but I believe that we should continue to push forward. Plan (1) Anxiety about health 02/21/17 - Encourage use of buspirone 5mg TID prior to meal-time blood glucose testing to decrease anxiety. Risks, benefits, side effects, and alternatives discussed. Pt verbalized understanding and is agreeable to the plan. - Enforce scheduled blood glucose checks only - Encourage buspirone rather than PRN Ativan as she states she becomes "foggy " with Ativan use. Eventual hope to discontinue Ativan in favor of buspirone for anxiety control. - her illness anxiety appears atypical for her and most likely a symptom of her depression. able to appreciate illogical basis but struggles to self sooth. responded fairly to efforts at insight facilitation and increasing positive self -talk but required a great deal of reassurance still this am. - tolerating buspar. will consider dose escalation tomorrow pending efficacy today 02/23 - BuSpar seems to be demonstrating an acute therapeutic benefit in reducing her severe anxiety. Will increase to 7.5 mg by mouth 3 times a day to maximize effect watching for dizziness. 02/24 - Have the patient perform her own BSG's and insulin injections 02/25 - Increase escitalopram as above, consider increase in buspirone, and decrease lorazepam to 0.5 mg bid prn for now, but advised patient that this will be a short-term medication. She says she ran out of it at home, but per PDMP she filled a prescription 02/20/17 for #[address] Pina. 02/26 - Increase Lexapro to 20 mg. daily - Encourage mindfulness and distraction. 02/27 - Continue medications as above. First dose of Lexapro 20mg given this AM. - Discussed patient finding specific activities she could use as distraction such as reading, crossword puzzles, or taking a lap around the unit. Continue to encourage. 02/28 - Increase buspirone to 10mg with meals to better target anxiety with blood sugar checks. Risks, benefits, alternatives, and side effects discussed. Pt is in agreement to the increased dose. Continue dose of Lexapro at 20mg qAM. Pt denies side effects. - Continue to encourage distraction techniques with glucose testing and meals. Redirect when approaching staff for reassurance in order to distract anxious thoughts. \\ 03/01 - Continue medication regimen as above. - Pt not agreeable to starting low-dose Abilify at this time due to risk of elevated cholesterol and blood glucose. Encouragement was given as to anticipated benefits of the medication despite risk of influence on diabetes, but patient is not comfortable with starting today. Patient information from Up -To-Date was provided and patient was encouraged to review it as she has shown minimal improvement with current regimen alone. - Continue to encourage distraction techniques and mindfulness practices. Redirect to these techniques when patient is ruminating about blood sugar levels and snack choices. 03/02--has had no improvement on current SSRI and Buspar, symptoms are bordering on delusional proportions and patient unwilling to take atypical given potential risks re: hyperglycemia. Reviewed risks of Haldol, need for usp monitoring for TD, mainly for acute symptomatic relief so can taper SSRI and Buspar in favor of a trial of another agent. 03/04 - Redirect from ruminations - Encourage distracting activities - Assist the patient to identify structure for the days immediately after discharge. (2) Diabetes 02/26 - cafeteria manager visits when needed - Reinforce diabetic teaching - Continue current meds and BSG's QID - Diabetic diet - Will need follow up PCP 03/04 - Have patient draw up her own humalog in preparation for discharge. Discharge / Aftercare Planning Primary Care Physician: Name: Dr Pina Date of Appointment: Mar 14, 2017 Time of Appointment: 1:50 pm Psychiatrist: Name: MANE - will be assigned upon intake Date of Appointment: Mar 10, 2017 Time of Appointment: 9:00 am Appointment Notes: [address] [facility] [place] [address] Therapist: Name: MANE Lozano Date of Appointment: Mar 10, 2017 Time of Appointment: 9:00 am Appointment Notes: [address] [facility] [place] [id number] Laundry Aid: Name: None Partial or Psych Rehab: Name: Mobile Psych. Rehab - [facility] Date of Appointment: Mar 24, 2017 Time of Appointment: TBD Appointment Notes: Waiting List - tentative date 03/24/2017 Visit Code E&M Code: 37407 Inventory Assets Strengths: good support system, no previous psychiatric history, desire for treatment Needs: requires better control of anxiety, improve mood, education about diabetes disease process and management. Risk Factors Assessment : Yes /single/: Yes Higher / Fall in social status: No Health problems: Yes Mental Health Diagnoses: No Substance use disorders: No Previous attempt: No Previous psychiatric stay: No Hopelessness: Yes Smoker: No Protective Factors Assessment Episcopalian beliefs: No : No Responsible for young children: No Employed: No Stable relationships: Yes Supportive family: Yes Data Vital Signs Last 24 Hrs: Date Time Temp Pulse Resp B/P (MAP) Pulse Ox O2 Delivery O2 Flow Rate FiO2 03/04/17 07:00 36.7 71 16 127/80 60 118/79 Meds Administered Last 24 Hrs: Meds Administered (Past 24Hrs) Medications (Trade) Dose Ordered Sig/Marva Route Start Time Stop Time Status Last Admin Dose Admin Haloperidol (Haldol Tab) 1 mg BID PO 03/02/17 12:30 04/01/17 12:29 03/04/17 07:56 1 MG Haloperidol (Haldol Tab) 1 mg Q4 PRN PO 03/02/17 12:30 04/01/17 12:29 03/03/17 19:42 1 MG Insulin Glargine (Lantus Solostar Pen) 28 units HS SQ 03/02/17 22:00 03/04/17 11:11 DC 03/03/17 22:02 28 UNITS Insulin Aspart (novoLOG ASPART) SLIDING SCALE QDB SC 03/03/17 09:00 03/04/17 11:12 DC 03/04/17 09:14 10 UNITS Insulin Aspart (novoLOG ASPART) SLIDING SCALE TID@1200,1715,2200 SC 03/02/17 17:15 03/04/17 11:13 DC 03/03/17 21:44 4 UNITS Calcium Carbonate (Tums Chew Tab) 500 mg QID PRN PO 03/02/17 16:15 04/01/17 16:14 03/02/17 22:34 500 MG Escitalopram Oxalate (Lexapro Tab) 10 mg QAM PO 03/03/17 09:00 03/03/17 11:44 DC 03/03/17 08:56 10 MG Escitalopram Oxalate (Lexapro Tab) 20 mg QAM PO 03/04/17 09:00 04/03/17 08:59 03/04/17 07:57 20 MG Escitalopram Oxalate (Lexapro Tab) 10 mg 1143 ONCE PO 03/03/17 11:43 03/03/17 11:51 DC 03/03/17 12:44 10 MG Lab Results Last 24 Hrs: Last 24 Hours Test 03/03/17 12:20 03/03/17 17:02 03/03/17 21:02 03/04/17 07:39 Bedside Glucose 194 mg/dl 143 mg/dl 120 mg/dl 152 mg/dl Problem Qualifiers (1) Diabetes: Diabetes mellitus type: type 2
[2017-03-04] MEDS: INSULIN ASPART 100 UNITS/ML VIAL SC SCH ×3 (13:41→21:13)
[2017-03-04 21:04] VITALS: BP 117/75; PULSE 69
[2017-03-04] MEDS: SIMVASTATIN 40 MG TAB PO SCH (21:06)
[2017-03-04] MEDS: INSULIN GLARGINE SQ SCH (21:44)
[2017-03-05 06:44] VITALS: BP_SYST 119; BP_DIAS 77; BP_DIAS 80; PULSE 60; PULSE 65; TEMP 36.5
[2017-03-05] MEDS: BETAMETHASONE DIP AUG (DIPROLENE) 0.05% OINT 15 GM TUBE EXT SCH ×2 (08:06→21:57)
[2017-03-05] MEDS: LEVOTHYROXINE 88 MCG TAB PO SCH (08:06)
[2017-03-05] MEDS: ASPIRIN 81 MG ECTAB PO SCH (08:07)
[2017-03-05] MEDS: SPIRONOLACTONE 100 MG TAB PO SCH (08:07)
[2017-03-05] MEDS: HALOPERIDOL 1 MG TAB PO SCH ×2 (08:08→21:48)
[2017-03-05] MEDS: METFORMIN HCL 500 MG TAB PO SCH ×2 (08:08→17:28)
[2017-03-05] MEDS: ESCITALOPRAM OXALATE 20 MG TAB PO SCH (08:09)
[2017-03-05] MEDS: LISINOPRIL 40 MG TAB PO SCH (08:09)
[2017-03-05] MEDS: METOPROLOL TARTRATE 25 MG TAB PO SCH ×2 (08:09→21:48)
--- NOTE | 2017-03-05 08:18 | Psychiatric Progress Notes ---
Progress Note Date of Service Mar 05, 2017. Interval History Yolanda Lua is a 56-year-old female admitted for inpatient treatment due to decreased functioning as a result of ruminations about glucose control for her longstanding diagnosis of diabetes. Chief Complaint "Still a little anxious, nervous about going home". Subjective Patient was seen & assessed interval progress reviewed with Treatment Team. Staff report she remains very anxious, perseverating on her blood glucose and her worries about discharge, and requires frequent reassurance. Her anxiety peaks whenever she eats or checks her blood sugar, and she will perseverate on asking the staff the same question over and over, and is very difficult to redirect. She struggled with giving herself insulin at bedtime, asking multiple nurses if she was giving herself the correct amount, and told staff she would prefer to use insulin pens at home if possible. She attended groups, stated she had been very anxious, and did not meet her goal for the day of finding ways to stop perseverating. She refused recommendations for psych rehab , but agreed to mobile psych rehab, although she was encouraged to engage in services that would get her out of her house and around other people. On my assessment today, she states her anxiety has improved, she thinks medication is helping, but remains anxious and worried about discharge. She continues to perseverate on her worries about her insulin, saying she is "scared" and has a hard time managing her thoughts/anxiety. She says she's tried to "make a game plan" to deal with this at home, and has tried distraction (reading, TV) which helps. She also finds talking to her family helpful, and typically talks to them daily, as she lives with her mother and her brother lives nearby. She is also willing to have Mobile Psych Therapy, and a diabetes support group. She reports SI "sometimes," where she will think "life ain't worth living." She denies plan or intent to harm herself. She asks multiple questions about anxiety and spent some time discussing pathologic anxiety and ways to manage it. Mood is better, rates it a 5 out of 10, and improved from admission when she was a 1. Sleep is "real good." Sleep Information Total Hours of Sleep: 7.25 Meal Information Percent of Breakfast Consumed: 98 Percent of Lunch Consumed: 75 Percent of Dinner Consumed: 100 Mental Status Exam During interview pt is: alert and oriented, cooperative Appearance: appropriately dressed, disheveled Eye contact is: good Motor behavior is: steady gait & station, no abnormal motor movements Speech: normal in rate, rhythm & volume Affect: anxious Mood is: anxious Thought process: perseveration (about diabetes) Thought content: preoccupation (with showering, food and blood sugar readings) , reality based without delusions Suicidal thought are: present (feels life not worth living at times), Plan: denied, Intent: denied Homicidal thoughts are: denied Hallucinations: denies auditory, denies visual Cognition: memory grossly intact, attention grossly intact, language grossly intact Intelligence estimated to be: average Insight: impaired Judgement: impaired Impression Although both mood and anxiety have improved since admission, she continues to struggle with perseveration about her diabetes, requiring frequent reassurance from staff. Buspirone was ineffective so discontinued, and low-dose haloperidol was started. We are working on discharge planning, and as she appears to do better when in the presence of peers and with the support of others, we had recommended psych rehabilitation, which she declined. She was willing for mobile psych rehabilitation, and we are looking into a diabetes support group. Today spent significant time discussing the concept of the safety plan, what to expect with respect to her anxiety symptoms over time, and the need to keep working on coping skills while allowing her medications time to work. We will help walk her through the steps necessary to continue her work at home including observing her drawing up and injecting her own humalog, continuing to check her own sugars, obtaining the Diabetic Support Group information. Plan (1) Anxiety about health 02/21/17 - Encourage use of buspirone 5mg TID prior to meal-time blood glucose testing to decrease anxiety. Risks, benefits, side effects, and alternatives discussed. Pt verbalized understanding and is agreeable to the plan. - Enforce scheduled blood glucose checks only - Encourage buspirone rather than PRN Ativan as she states she becomes "foggy " with Ativan use. Eventual hope to discontinue Ativan in favor of buspirone for anxiety control. - her illness anxiety appears atypical for her and most likely a symptom of her depression. able to appreciate illogical basis but struggles to self sooth. responded fairly to efforts at insight facilitation and increasing positive self -talk but required a great deal of reassurance still this am. - tolerating buspar. will consider dose escalation tomorrow pending efficacy today 02/23 - BuSpar seems to be demonstrating an acute therapeutic benefit in reducing her severe anxiety. Will increase to 7.5 mg by mouth 3 times a day to maximize effect watching for dizziness. 02/24 - Have the patient perform her own BSG's and insulin injections 02/25 - Increase escitalopram as above, consider increase in buspirone, and decrease lorazepam to 0.5 mg bid prn for now, but advised patient that this will be a short-term medication. She says she ran out of it at home, but per PDMP she filled a prescription 02/20/17 for #[address] Pina. 02/26 - Increase Lexapro to 20 mg. daily - Encourage mindfulness and distraction. 02/27 - Continue medications as above. First dose of Lexapro 20mg given this AM. - Discussed patient finding specific activities she could use as distraction such as reading, crossword puzzles, or taking a lap around the unit. Continue to encourage. 02/28 - Increase buspirone to 10mg with meals to better target anxiety with blood sugar checks. Risks, benefits, alternatives, and side effects discussed. Pt is in agreement to the increased dose. Continue dose of Lexapro at 20mg qAM. Pt denies side effects. - Continue to encourage distraction techniques with glucose testing and meals. Redirect when approaching staff for reassurance in order to distract anxious thoughts. \\ 03/01 - Continue medication regimen as above. - Pt not agreeable to starting low-dose Abilify at this time due to risk of elevated cholesterol and blood glucose. Encouragement was given as to anticipated benefits of the medication despite risk of influence on diabetes, but patient is not comfortable with starting today. Patient information from Up -To-Date was provided and patient was encouraged to review it as she has shown minimal improvement with current regimen alone. - Continue to encourage distraction techniques and mindfulness practices. Redirect to these techniques when patient is ruminating about blood sugar levels and snack choices. 03/02--has had no improvement on current SSRI and Buspar, symptoms are bordering on delusional proportions and patient unwilling to take atypical given potential risks re: hyperglycemia. Reviewed risks of Haldol, need for senior living monitoring for TD, mainly for acute symptomatic relief so can taper SSRI and Buspar in favor of a trial of another agent. 03/04 - Redirect from ruminations - Encourage distracting activities - Assist the patient to identify structure for the days immediately after discharge. 03/05 - Continue escitalopram 20mg daily, haloperidol 1mg bid, and lorazepam 0.5mg bid prn. - Referred to [facility] for aftercare, mobile psych rehab, and case management ( on a wait list). Also looking into diabetic support group. She is not sure when she follows up with the diabetes clinic, need to clarify. - Work on discharge safety plan, and answered questions about her aftercare and what will involve. (2) Diabetes 02/26 - breastfeeding educator visits when needed - Reinforce diabetic teaching - Continue current meds and BS's QID - Diabetic diet - Will need follow up PCP 03/04 - Have patient draw up her own humalog in preparation for discharge. Discharge / Aftercare Planning Primary Care Physician: Name: Dr Pina Date of Appointment: Mar 14, 2017 Time of Appointment: 1:50 pm Psychiatrist: Name: [facility] - will be assigned upon intake Date of Appointment: Mar 10, 2017 Time of Appointment: 9:00 am [facility]ment [facility]: [address] [facility] [place] [id number] Therapist: Name: [facility] Janie Lozano Date of Appointment: Mar 10, 2017 Time of Appointment: 9:00 am Appointment Notes: [address] [facility] [place] [id number] [place]: Name: None Partial or Psych Rehab: Name: Mobile Psych. Rehab - [facility] Date of Appointment: Mar 24, 2017 Time of Appointment: TBD Appointment Notes: Waiting List - tentative date 03/24/2017 Visit Code E&M Code: 87734 Inventory Assets Strengths: good support system, no previous psychiatric history, desire for treatment Needs: requires better control of anxiety, improve mood, education about diabetes disease process and management. Risk Factors Assessment : Yes /single/: Yes Higher / Fall in social status: No Health problems: Yes Mental Health Diagnoses: No Substance use disorders: No Previous attempt: No Previous psychiatric stay: No Hopelessness: Yes Smoker: No Protective Factors Assessment Buddhist beliefs: No : No Responsible for young children: No Employed: No Stable relationships: Yes Supportive family: Yes Data Vital Signs Last 24 Hrs: Date Time Temp Pulse Resp B/P (MAP) Pulse Ox O2 Delivery O2 Flow Rate FiO2 03/05/17 06:44 36.5 65 16 119/77 60 119/80 03/04/17 21:04 69 16 117/75 Meds Administered Last 24 Hrs: Meds Administered (Past 24Hrs) Medications (Trade) Dose Ordered Sig/Marva Route Start Time Stop Time Status Last Admin Dose Admin Insulin Aspart (novoLOG ASPART) SLIDING SCALE QDB SC 03/03/17 09:00 03/04/17 11:12 DC 03/04/17 09:14 10 UNITS Escitalopram Oxalate (Lexapro Tab) 10 mg QAM PO 03/03/17 09:00 03/03/17 11:44 DC 03/03/17 08:56 10 MG Escitalopram Oxalate (Lexapro Tab) 20 mg QAM PO 03/04/17 09:00 04/03/17 08:59 03/05/17 08:09 20 MG Escitalopram Oxalate (Lexapro Tab) 10 mg 1143 ONCE PO 03/03/17 11:43 03/03/17 11:51 DC 03/03/17 12:44 10 MG Insulin Glargine (Lantus Vial) 28 units HS SQ 03/04/17 22:00 04/01/17 21:59 03/04/17 21:44 28 UNITS Insulin Aspart (novoLOG ASPART) SLIDING SCALE TID@1200,1715,2200 SC 03/04/17 12:00 04/03/17 11:59 03/04/17 21:13 3 UNITS Lab Results Last 24 Hrs: Last 24 Hours Test 03/04/17 12:22 03/04/17 17:14 03/04/17 20:28 Bedside Glucose 142 mg/dl 159 mg/dl 142 mg/dl Problem Qualifiers (1) Diabetes: Diabetes mellitus type: type 2
[2017-03-05] MEDS: INSULIN ASPART 100 UNITS/ML VIAL SC SCH ×4 (09:23→21:29)
--- NOTE | 2017-03-05 11:13 | Pharmacy Progress Note ---
Pharmacy Glycemic Short Note 2 Date of Service Mar 05, 2017. OUTPATIENT ANTIDIABETIC REGIMEN: * Basalgar (insulin glargine) 25 units SQ HS * Humalog 10 units sQ TIDM * Metformin 1,000mg PO BIDM ASSESSMENT: * 56yo T2DM female with excellent control per recent A1c of 7.2% in 12/2016. * BSGs have been well controlled throughout admission on current regimen. * [facility] met with patient 02/28/17 and discussed goal BSGs, anxiety around meal trays/CHO counting, and target BSGs. * Conversation went very well - please see Elvis Sahu, PharmD's note from for further detail * Over the past 48 hours - no changes have been made to regimen * Discussed discharge recommendations with Dr. Lund * I do not feel strongly about increasing her basal dose 3 units as we have here - I feel further follow up with PCP in the outpatient setting would be more appropriate given her current anxieties over diabetes PLAN FOR INPATIENT GLYCEMIC CONTROL: * Outpatient oral diabetes medications * Continue Metformin 1,000mg PO BIDM * Basal insulin * Lantus 28 units SQ HS * Bolus insulin * NovoLog per scale ACHS or Q6hrs while NPO * Goal Range: Low 110 mg/dL - High 140 mg/dL Breakfast Only * Correction Factor: 20 mg/dL/unit * Nutritional / Prandial insulin per carb ratio of 1 unit per 5 grams CHO consumed * MAX dose of 12 units Lunch, Dinner, & HS * Correction Factor: 20 mg/dL/unit * Nutritional / Prandial insulin per carb ratio of 1 unit per 6 grams CHO consumed * MAX dose of 12 units RECOMMENDATIONS FOR DISCHARGE: * Continue home regimen with no changes. * Follow up with PCP.
[2017-03-05] MEDS: HALOPERIDOL 1 MG TAB PO PRN ×2 (12:23→19:46)
[2017-03-05] MEDS: NYSTATIN POWDER 15GM BTL EXT PRN (19:17)
[2017-03-05] MEDS: CALCIUM CARBONATE 500 MG CHEWABLE PO PRN (20:02)
[2017-03-05] MEDS: INSULIN GLARGINE SQ SCH (21:30)
[2017-03-05 21:44] VITALS: BP 125/77; PULSE 76
[2017-03-05] MEDS: SIMVASTATIN 40 MG TAB PO SCH (21:48)
[2017-03-05] MEDS: LORAZEPAM 0.5 MG TAB PO PRN (21:50)
[2017-03-06 06:28] VITALS: BP_SYST 107; BP_SYST 119; BP_DIAS 71; BP_DIAS 78; PULSE 59; PULSE 63; TEMP 36.7
[2017-03-06] MEDS: LEVOTHYROXINE 88 MCG TAB PO SCH (07:56)
[2017-03-06] MEDS: SPIRONOLACTONE 100 MG TAB PO SCH (07:57)
[2017-03-06] MEDS: ASPIRIN 81 MG ECTAB PO SCH (07:57)
[2017-03-06] MEDS: ESCITALOPRAM OXALATE 20 MG TAB PO SCH (07:58)
[2017-03-06] MEDS: HALOPERIDOL 1 MG TAB PO SCH (07:58)
[2017-03-06] MEDS: METFORMIN HCL 500 MG TAB PO SCH (07:58)
[2017-03-06] MEDS: LISINOPRIL 40 MG TAB PO SCH (08:00)
[2017-03-06] MEDS: BETAMETHASONE DIP AUG (DIPROLENE) 0.05% OINT 15 GM TUBE EXT SCH (08:12)
[2017-03-06] MEDS: INSULIN ASPART 100 UNITS/ML VIAL SC SCH ×2 (09:19→13:32)
[2017-03-06 09:20] VITALS: BP 131/78; PULSE 77
[2017-03-06] MEDS: METOPROLOL TARTRATE 25 MG TAB PO SCH (09:25)
[2017-03-06] MEDS ORDERED: HLD1 PO (09:55)
[2017-03-06] MEDS ORDERED: LXP20 PO (09:55)
[2017-03-06] MEDS ORDERED: LORA-741 PO (09:55)
[2017-03-06] MEDS ORDERED: HLD1X PO (09:55)
--- NOTE | 2017-03-06 10:22 | Discharge Instructions ---
Discharge Information Report Includes Report will include the: Discharge Instructions & Summary Admission Admission Date / Time: Feb 20, 2017 at 14:31 Reason for Admission: Depressive Disorder Nos Discharge Discharge Diagnosis / Problem: Anxiety about health, depressive Disorder NOS Condition at Discharge: Fair Discharge Goals Goal(s): Decrease discomfort, Improve function, Increase independence, Learn about illness, Therapeutic intervention Activity Recommendations Activity Limitations: resume your previous activity . Instructions / Follow-Up Instructions / Follow-Up . SPECIAL CARE INSTRUCTIONS: 1. Follow through with your scheduled aftercare appointments. If unable to keep an appointment, please call to reschedule. 2. Take your medication only as prescribed. Medication should not be changed or stopped without the approval of your doctor. In the event of worsening symptoms or concerns about side effects, contact your doctor immediately. 3. Utilize new healthy coping skills, anger management skills, and stress management skills learned during your hospitalization. Journal feelings and process them with a support person. Identify stressors or situations that may result in relapse, deterioration or inappropriate behaviors and develop a plan to deal with those issues. 4. If your coping skills are ineffective and you are in crisis, contact your outpatient providers for direction. If unable to reach your providers, please call the CAN HELP LINE AT or go to the closest Emergency Room. 5. Avoid alcohol and un-prescribed drugs. 6. You have been provided with the Mental Health Advance Directives Pamphlet for your review. AFTERCARE APPOINTMENTS: * Please call your insurance company prior to your scheduled appointment to confirm your aftercare providers are covered. Take your insurance information to your appointments. . Discharge / Aftercare Planning Primary Care Physician: Name: Dr Pina Date of Appointment: Mar 14, 2017 Time of Appointment: 1:50 pm Psychiatrist: Name: MANE - will be assigned upon intake Date of Appointment: Mar 10, 2017 Time of Appointment: 9:00 am Appointment Notes: [address] [facility] [place] [id number] Therapist: Name Of Therapist: MANE Lozano Date of Appointment: Mar 10, 2017 Time of Appointment: 9:00 am Appointment Comments: [address] [facility] [place] [id number] Slide Attendant: Name: None Partial or Psych Rehab: Name: Mobile Psych. Rehab - [facility] Date Of Appointment: Mar 24, 2017 Time of Appointment: TBD Appointment Comments: Waiting List - tentative date 03/24/2017 Specialist: Name: Ashlee Gray Date of Appointment: Mar 13, 2017 Time of Appointment: 8:30 a.m. Other: Name of Appointment #1: Diabetic Support Group -[address] Date of Appointment #1: Apr 02, 2017 Time of Appointment #1: 12:30 Appointment #1 Notes: call to register . Follow-Up Care Plan for Follow-Up Care: During inpatient stay, patient has been provided with additional outpatient support to include psychiatrist, therapist, mobile psych rehab, and diabetic support group. Pt also has appointments scheduled with her PCP and clinical athletic instructor within a week after discharge. Current Hospital Diet Patient's current hospital diet: Diabetes Type 2 Diet Discharge Diet Recommended Diet: Diabetes Type 2 Diet Procedures Procedures Performed: No Pending Studies Pending Studies at Discharge: No Medical Emergencies . Who to Call and When: Medical Emergencies: For questions or emergencies related to your hospital stay, please contact the Inpatient Behavioral Health Unit at [phone]. A software licensing analyst is on-call 09/09 for the Behavioral Health Unit for emergencies At any time you feel your situation is an emergency, you may also call 911 immediately. . Non-Emergent Contact Non-Emergency issues call your: Primary Care Provider, Psychiatrist, Therapist , Specialist Past History Medical & Surgical History: (1) Diabetes (2) HTN (hypertension) Advance Directives Do You Have an Existing Mental: No Existing Living Will: No Existing Power of Net Software Architect: No Advance Directives Info Given: To Pt/S.O. Advance Directives Reason: Declines as Mental Health Visit. Discharge Summary Admission HPI Per the Admitting provider: Yolanda Lua is a 56-year-old female admitted to [address] [place] [address] due to anxiety and depressive symptoms affecting functioning since October 2016. Pt reports she has had a diagnosis of diabetes for over 10 years, but was always told she could "eat whatever I wanted". She reports that monitoring her blood sugars and giving herself insulin injections has never been an issue before, but she has experienced a great deal of anxiety surrounding this in the last few months. Pt states she gets very "nervous" before taking her blood sugars causing her heart rate to increase and her hands to shake. This often causes the blood on her fingers to smear, so she will poke herself again. Pt states she often has been taking Ativan prior to testing to prevent anxiety. Pt is unsure as to the cause of her recent concerns with blood sugar, but states she has had two episodes of hypoglycemia recently that have been alarming for her. Pt states she is more concerned about "bottoming out" than being elevated as she is "used to being higher". Pt states this has affected her functioning at home as she is "too nervous to shower or do anything in the house unless my blood sugar is over 180". She moved in with her mother in October due to concerns that she would become hypoglycemic when no one was around. She now relies on her mother to watch her take her blood sugar and give herself insulin. Pt's mother encourages her to write down when she gives herself insulin injections as pt finds she often forgets and needs to be reminded by her mother that she had already done it. Pt reports a ~40-50 lb weight loss in the last 6 months due to better diet and cutting out junk food and soda. Pt states she continues to have an appetite and eat regularly, but has been making dietary changes to better control her diabetes. She also reports an incident occurring recently in which she met a stranger online and sent the individual $3000 which they had promised to pay back. Pt states she wakes every morning and thinks about the situation and " how stupid that was". Although she is unable to elaborate on a correlation at this time, she feels this incident may be contributing to her recent obsessions with glucose control. Pt states she has noticed low mood, difficulty concentrating, lack of motivation, and hopelessness, all related to her diabetes diagnosis. She states "no one should have to live like this". Pt denies SI, intent, or plan, but does state she often wonders "why did this have to happen to me, this is no way to life". She reports she also experiences low mood around the holidays as this is the time of the year her father, whom she was close with, had . Pt states she was started on Celexa 10mg about 1-2 months ago by her PCP, but has not noticed a change in her mood or anxiety symptoms. She has also been prescribed Ativan which she takes occasionally prior to testing her blood sugar to decrease nervousness. Pt denies history of panic attacks, but does experience racing thoughts about her diabetes that often keep her awake at night. Other anxiety seems to surround plans that are affected by her blood sugar such as not visiting with friends or being unable to complete tasks in her home. Pt denies HI, A/V hallucinations, paranoia, hailey, OCD, PTSD, eating disorder, and other psychosis. Pt states she feels she was anxious as a child, but more general worries. She denies obsessions or compulsions as a child. Hospital Course (1) Anxiety about health 02/21/17 - Encourage use of buspirone 5mg TID prior to meal-time blood glucose testing to decrease anxiety. Risks, benefits, side effects, and alternatives discussed. Pt verbalized understanding and is agreeable to the plan. - Enforce scheduled blood glucose checks only - Encourage buspirone rather than PRN Ativan as she states she becomes "foggy " with Ativan use. Eventual hope to discontinue Ativan in favor of buspirone for anxiety control. - her illness anxiety appears atypical for her and most likely a symptom of her depression. able to appreciate illogical basis but struggles to self sooth. responded fairly to efforts at insight facilitation and increasing positive self -talk but required a great deal of reassurance still this am. - tolerating buspar. will consider dose escalation tomorrow pending efficacy today 02/23 - BuSpar seems to be demonstrating an acute therapeutic benefit in reducing her severe anxiety. Will increase to 7.5 mg by mouth 3 times a day to maximize effect watching for dizziness. 02/24 - Have the patient perform her own BSG's and insulin injections 02/25 - Increase escitalopram as above, consider increase in buspirone, and decrease lorazepam to 0.5 mg bid prn for now, but advised patient that this will be a short-term medication. She says she ran out of it at home, but per PDMP she filled a prescription 02/20/17 for #[address] Pina. 02/26 - Increase Lexapro to 20 mg. daily - Encourage mindfulness and distraction. 02/27 - Continue medications as above. First dose of Lexapro 20mg given this AM. - Discussed patient finding specific activities she could use as distraction such as reading, crossword puzzles, or taking a lap around the unit. Continue to encourage. 02/28 - Increase buspirone to 10mg with meals to better target anxiety with blood sugar checks. Risks, benefits, alternatives, and side effects discussed. Pt is in agreement to the increased dose. Continue dose of Lexapro at 20mg qAM. Pt denies side effects. - Continue to encourage distraction techniques with glucose testing and meals. Redirect when approaching staff for reassurance in order to distract anxious thoughts. \\ 03/01 - Continue medication regimen as above. - Pt not agreeable to starting low-dose Abilify at this time due to risk of elevated cholesterol and blood glucose. Encouragement was given as to anticipated benefits of the medication despite risk of influence on diabetes, but patient is not comfortable with starting today. Patient information from Up -To-Date was provided and patient was encouraged to review it as she has shown minimal improvement with current regimen alone. - Continue to encourage distraction techniques and mindfulness practices. Redirect to these techniques when patient is ruminating about blood sugar levels and snack choices. 03/02--has had no improvement on current SSRI and Buspar, symptoms are bordering on delusional proportions and patient unwilling to take atypical given potential risks re: hyperglycemia. Reviewed risks of Haldol, need for prison monitoring for TD, mainly for acute symptomatic relief so can taper SSRI and Buspar in favor of a trial of another agent. 03/04 - Redirect from ruminations - Encourage distracting activities - Assist the patient to identify structure for the days immediately after discharge. 03/05 - Continue escitalopram 20mg daily, haloperidol 1mg bid, and lorazepam 0.5mg bid prn. - Referred to [facility] for aftercare, mobile psych rehab, and case management ( on a wait list). Also looking into diabetic support group. She is not sure when she follows up with the diabetes clinic, need to clarify. - Work on discharge safety plan, and answered questions about her aftercare and what will involve. (2) Diabetes 02/26 - advertising agent visits when needed - Reinforce diabetic teaching - Continue current meds and BSG's QID - Diabetic diet - Will need follow up PCP 03/04 - Have patient draw up her own humalog in preparation for discharge. Risk Factors Assessment : Yes /single/: Yes Higher / Fall in social status: No Health problems: Yes Mental Health Diagnoses: No Substance use disorders: No Previous attempt: No Previous psychiatric stay: No Hopelessness: Yes Smoker: No Protective Factors Assessment Caodaism beliefs: No : No Responsible for young children: No Employed: No Stable relationships: Yes Supportive family: Yes Day of Discharge Assessment Hospital Course - Pt admitted to [address] [place] [address] on a 201-voluntary commitment on due to decreased functioning due to anxiety and ruminations about her diabetic diagnosis which has been ongoing for over 10 years. Pt reported increased anxiety and lack of personal-care starting around October of this year. Pt was started on buspirone at mealtime as well as switching her outpatient antidepressant from citalopram to escitalopram. Pt has been maintained at escitalopram 20mg during her stay. Due to ineffectiveness, buspirone was switched to haloperidol 1mg BID. Pt's lorazepam was decreased to 0.5mg BID prn anxiety which she has primarily been taking in the morning and at bedtime when her anxiety is most bothersome. Pt was also given haloperidol 1mg q4h prn anxiety which she has requested on occasion for anxiety. Pt has shown mild improvement in symptoms, but true functionality is difficult to assess while in the hospital as most of her ruminations deal with the management of her diabetes while at home. Pt aware of discharge planning for 03/06/17 and has been provided with numerous outpatient supports during her stay to include outpatient psychiatrist and therapist, mobile psych rehab, referral for case management, and diabetic support groups. Day of Discharge Assessment - Pt was seen today to determine readiness for discharge. Pt expresses anxiety about going home, but is understanding of additional outpatient psychiatric supports in place. She feels that recent medication changes have been beneficial and she has noticed a small difference in her anxiety. Pt states she will be returning to her mother's home and is willing for mobile psych rehab. She is also to see providers at [facility] for psychiatric management and therapy on 03/10. Pt is aware of endocrinology appointment on 03/10. She expresses concern over being able to get to appointments as they are scheduled within a close time frame. This was discussed with social work who stated they would try to reschedule to a later time. Pt states anxiety is ongoing, but feels the Haldol BID and Ativan at bedtime has been helping to control her symptoms. She reports sleep has remained "good" and denies issues with appetite since admission. Upon examination today, the patient presented as alert and cooperative. The patient was casually dressed in same scrub pants, t-shirt, and sweatshirt. Eye contact was fair. No psychomotor restlessness or agitation was noted. Speech was normal in rate, rhythm, and volume. Affect was mood congruent and mildly blunted, no tearfulness today. The patients mood appeared anxious. Thought processes were clear, coherent and goal directed without evidence of loose associations or flight of ideas. Thought content/perception was reality based without delusions. The patient denied suicidal and homicidal ideation, but reports occasional feelings of hopelessness related to her diabetic diagnosis and blood sugar levels. Improved since admission. The patient denied hallucinations and did not appear to be responding to internal stimuli. Cognition was grossly intact with orientation to person, place and time. Fund of Knowledge/Intelligence were consistent with level of education. Insight and Judgement remain limited. Laboratory Refer to printed laboratory reports Test 02/20/17 11:35 02/20/17 11:59 03/05/17 20:57 03/06/17 08:06 Urine Color YELLOW Urine Appearance CLEAR Urine pH 5.0 Urine Specific [place] 1.016 Urine Protein NEG Urine Glucose (UA) 2+ Urine Ketones NEG Urine Occult Blood NEG Urine Nitrite NEG Urine Bilirubin NEG Urine Urobilinogen NEG Urine Leukocyte Esterase NEG Urine Opiates Screen NEG Urine Methadone, Qualitative NEG Urine Barbiturates NEG Urine Phencyclidine (PCP) Level NEG Ur Amphetamine/Methamphetamine NEG MDMA (Ecstasy) Screen NEG Urine Benzodiazepines Screen NEG Urine Cocaine Metabolite NEG Urine Marijuana (THC) NEG White Blood Count 11.85 Red Blood Count 4.00 Hemoglobin 11.8 Hematocrit 35.3 Mean Corpuscular Volume 88.3 Mean Corpuscular Hemoglobin 29.5 Mean Corpuscular Hemoglobin Concent 33.4 Platelet Count 288 Mean Platelet Volume 10.9 Neutrophils (%) (Auto) 78.1 Lymphocytes (%) (Auto) 15.2 Monocytes (%) (Auto) 5.5 Eosinophils (%) (Auto) 0.8 Basophils (%) (Auto) 0.1 Neutrophils # (Auto) 9.26 Lymphocytes # (Auto) 1.80 Monocytes # (Auto) 0.65 Eosinophils # (Auto) 0.10 Basophils # (Auto) 0.01 RDW Standard Deviation 43.3 RDW Coefficient of Variation 13.4 Immature Granulocyte % (Auto) 0.3 Immature Granulocyte # (Auto) 0.03 Sodium Level 133 Potassium Level 4.8 Chloride Level 102 Carbon Dioxide Level 24 Anion Gap 7.0 Blood Urea Nitrogen 24 Creatinine 1.14 Est Creatinine Clear Calc Drug Dose 56.3 Estimated GFR () 61.8 Estimated GFR (Non- 53.3 BUN/Creatinine Ratio 21.3 Random Glucose 209 Calcium Level 9.3 Total Bilirubin 0.4 Direct Bilirubin < 0.1 Aspartate Amino Transferase (AST) 6 Alanine Aminotransferase (ALT) 18 Alkaline Phosphatase 85 Total Protein 7.7 Albumin 3.4 Globulin 4.3 Albumin/Globulin Ratio 0.8 Thyroid Stimulating Hormone (TSH) 0.589 Ethyl Alcohol mg/dL < 3.0 POC Glucose 103 150 Total Time Total Time Spent (min): Greater than 30 minutes Tobacco Cessation at Discharge Smoking Status: Former Smoker (quit ~1 year ago; minimal 1 pack per 2 week use prior to quitting) FDA approved Prescription: non-smoker Problem Qualifiers (1) Diabetes: Diabetes mellitus type: type 2
[2017-03-06] MEDS ORDERED: BSP5 PO (12:47)
[2017-03-06] MEDS ORDERED: BSP/10 PO (12:51)
== END 2017-03-06 14:22 | disposition home or self-care (01) | DRG 880 ==
LOC: C.EDB 11:16 → C.MHU 14:31 → ENRESERV 15:25 → C.MHU 03-04 17:29
PROVIDERS: ADMIT Psychiatry & Neurology Child & Adolescent Psychiatry; ATTEND Psychiatry & Neurology Psychiatry
DX: F41.1 Generalized anxiety disorder (principal); R45.851 Suicidal ideations; F32.9 Major depressive disorder, single episode, unspecified; E11.9 Type 2 diabetes mellitus without complications; Z81.8 Family history of other mental and behavioral disorders; Z79.4 Long term (current) use of insulin; Z79.82 Long term (current) use of aspirin; Z79.899 Other long term (current) drug therapy

== ENCOUNTER → 2017-05-08 | Outpatient (CLI) | payer OTHER ==
[~2017-05-08] MED LIST changes: +AUG0.05O4 EXT; +BSP/10 PO; -CTP/1 PO; -ESCI10TA17 PO; +HLD1 PO; +HLD1X PO; -INSU100I23 SC; +INSU100I23 SQ; +LXP20 PO; -MAGN400T6 PO
[2017-05-08 17:05] LABS: BASO % 0.2 %; BASO ABS # 0.02 K/uL (0-0.2); EOS % 1.6 %; EOS ABS # 0.17 K/uL (0-0.5); HEMATOCRIT 39.8 % (37-47); HEMOGLOBIN 13.2 g/dL (12.0-16.0); IG# 0.03 K/uL (0.00-0.02); LYMPH % 19.3 %; MEAN CELL VOLUME 87.3 fL (80-100); MEAN CORPUSCULAR HEMOGLOBIN 28.9 pg (25-34); MEAN CORPUSCULAR HGB CONC 33.2 g/dl (32-36); MEAN PLATELET VOLUME 11.1 fL (7.4-10.4); MONO % 6.2 %; MONO ABS # 0.64 K/uL (0.11-0.59); NEUT % 72.4 %; NEUT ABS # 7.48 K/uL (1.4-6.5); PLATELET COUNT 301 K/uL (130-400); RED CELL DISTRIBUTION WIDTH CV 12.7 % (11.5-14.5); RED CELL DISTRIBUTION WIDTH SD 40.3 fL (36.4-46.3); WHITE BLOOD COUNT 10.34 K/uL (4.8-10.8)
[2017-05-08 17:19] LABS: ALBUMIN 3.6 gm/dl (3.4-5.0); ALT/SGPT 20 U/L (12-78); AST/SGOT 9 U/L (15-37); BLOOD UREA NITROGEN 18 mg/dl (7-18); CALCIUM 9.5 mg/dl (8.5-10.1); CARBON DIOXIDE 28 mmol/L (21-32); CHOLESTEROL 121 mg/dl (0-200); CREATININE 0.99 mg/dl (0.60-1.20); GLUCOSE 116 mg/dl (70-99); POTASSIUM 4.6 mmol/L (3.5-5.1); SODIUM 137 mmol/L (136-145)
[2017-05-08 17:30] LABS: ALKALINE PHOSPHATASE 98 U/L (45-117); LDL CHOLESTEROL CALCULATED 35 mg/dl
[2017-05-09 08:34] LABS: HEMOGLOBIN A1C 6.5 % (4.5-5.6)
== END | disposition home or self-care (01) ==
LOC: C.LABBFT 14:37
PROVIDERS: ATTEND Internal Medicine
DX: E11.9 Type 2 diabetes mellitus without complications (principal); E78.5 Hyperlipidemia, unspecified; E03.9 Hypothyroidism, unspecified

== ENCOUNTER 2019-04-22 21:32 | Observation (INO) ==
--- NOTE | 2019-04-22 22:13 | XRay Report ---
XR chest 1V portable HISTORY: 58 years-old Female emesis acute nausea with vomiting COMPARISON: Chest radiograph and CTA chest 11/21/2016 TECHNIQUE: Portable AP view of the chest FINDINGS: Increased hazy density of the lung bradley are likely secondary to summation density secondary to osmar ent obesity. The cardiac silhouette is enlarged. No pneumothorax, pleural effusion or airspace consol idation typical for pneumonia. Bones appear grossly intact. IMPRESSION: Cardiomegaly without acute process. ACT 112: Negative or not required by law. The above report was generated using voice recognition software. It may contain grammatical, syntax o r spelling errors. Results electronically sent 04/22/2019 10:12 PM to: Sachin Rm PA-C Electronically signed by: Tl Cooper M.D. 04/22/2019 10:12 PM
--- NOTE | 2019-04-22 22:17 | Emergency Department Note ---
History of Present Illness General Chief complaint: Hyperglycemia Stated complaint: DIARRHEA 3 WEEKS, CAN'T KEEP FOOD DOWN Time Seen by Provider: 04/22/19 21:45 History of Present Illness This is a 58-year-old female with a past medical history significant for that of anxiety, depression, type 2 diabetes among others. She presents with complaints of "diarrhea x3 weeks, cannot keep food down". The patient is here with her brother and brother's wilberto. The patient states that she has had poor dietary habits over the past few weeks, and has been without her psychiatric medication for about 2 months now. She states that this all began when [facility], her primary psychiatric service left the area. She states that she has been without psychiatric care and medication since that time. She as well as her brother at bedside expressed concern and decline over the past 3 weeks. She normally is able to keep the dwelling in good shape as she lives alone, but they note that over the past 3 weeks this has not been the case. They also note that she seems to have very little interest in daily activities and or concern for her wellbeing. The patient denies any suicidal or homicidal ideations. The patient denies any true abdominal pain but notes every time she eats she experiences diarrhea. It is to a point where she notes that sometimes she is unable to make it to the bathroom. Her blood sugars have also been between 3 and 500 which is abnormally high for her. Home Medications Home Medications Medication Instructions Recorded Confirmed Type aspirin 81 mg tablet,delayed 81 mg PO DAILY #90 tab 09/03/18 04/22/19 Rx release clonazepam 0.5 mg tablet 0.25 mg PO BID tab 10/07/18 04/22/19 History spironolactone 25 mg tablet 25 mg PO DAILY 10/07/18 04/22/19 History pen needle, diabetic 32 gauge x #200 ea 10/08/18 04/22/19 Rx 5/32" levothyroxine 88 mcg tablet 88 mcg PO DAILY #90 tab 12/02/18 04/22/19 Rx metformin 1,000 mg tablet 1,000 mg PO BID #180 tab 12/02/18 04/22/19 Rx metoprolol tartrate 25 mg tablet 25 mg PO BID #180 tab 12/02/18 04/22/19 Rx nystatin 100,000 unit/gram topical 1 appln TOP BID 14 Days #30 gm 12/30/18 04/22/19 Rx cream simvastatin 40 mg tablet 40 mg PO HS #30 tab 02/23/19 04/22/19 Rx Novolog Flexpen U-100 Insulin 100 30 units SQ .COMPLEX 30 Days #2 03/02/19 04/22/19 Rx unit/mL (3 mL) subcutaneous box NS escitalopram oxalate [Lexapro] 20 mg PO DAILY 04/22/19 04/22/19 History insulin glargine [Lantus Solostar 40 - 50 units SQ DAILY 04/22/19 04/22/19 History U-100 Insulin] lisinopril 40 mg PO DAILY 04/22/19 04/22/19 History Allergies Allergy/AdvReac Type Severity Reaction Status Date / Time albiglutide [From Tanzeum] AdvReac Unknown Verified 04/22/19 23:02 dulaglutide [From Trulicity] AdvReac Unknown Verified 04/22/19 23:02 Past Med/Surg History Medical History Anxiety (Inactive) Depression (Inactive) Uncontrolled type 2 diabetes mellitus Surgical History History of cholecystectomy History of dental surgery History of tonsillectomy Family History Unknown Thyroid disorder Diabetes Father Diabetes Social History Preferred Language: Lao Communication Ability: Effective Range Mechanic Required: No Beliefs That Will Affect Care: None Current Living Situation: Alone Feels Safe at Home: Yes Smoking Status: Current every day smoker Tobacco Type: cigarettes ; Cigarettes Per Day: 1/2 pack ; Second Hand Exposure: Yes ; Hx Alcohol Use: No Hx Substance Use: No Review of Systems A total of 10 systems reviewed and were otherwise negative Physical Exam Vital Signs Vital Signs - 24 hr 04/22/19 21:33 04/22/19 22:13 04/22/19 22:37 Temperature 36.8 C Temperature Source Oral Pulse Rate 109 H Pulse Rate [Apical] 84 Respiratory Rate 18 18 Respiratory Effort / Characteristics Non-Labored Respiratory Depth Normal Blood Pressure 168/87 H Blood Pressure [Right Arm] 133/71 Blood Pressure Mean 114 Blood Pressure Mean [Right Arm] 91 Pulse Oximetry 97 97 96 Oxygen Delivery Method Room Air Room Air Room Air Sepsis Recent Fever Within 48 Hours No Sepsis New/Unexplained Change in Mental Status No Sepsis Action Taken by Nursing No Action Required 04/23/19 00:43 04/23/19 02:09 Temperature Temperature Source Pulse Rate Pulse Rate [Apical] 82 87 Respiratory Rate 18 18 Respiratory Effort / Characteristics Respiratory Depth Blood Pressure Blood Pressure [Right Arm] 133/67 126/58 L Blood Pressure Mean Blood Pressure Mean [Right Arm] 89 80 Pulse Oximetry 95 94 Oxygen Delivery Method Room Air Room Air Sepsis Recent Fever Within 48 Hours Sepsis New/Unexplained Change in Mental Status Sepsis Action Taken by Nursing VITAL SIGNS - Vital signs and nursing notes were reviewed. Stable and afebrile. GENERAL -58-year-old female appearing her stated age who is in no acute distress. Communicates well with provider and answers questions appropriately. SKIN - Without rashes. No meningeal or petechial rash. HEAD - NC/AT. EYES - PERRL with EOMI bilaterally. Sclera anicteric. EARS - No deformities of external structures noted on gross examination bilaterally. No pain elicited with palpation of the tragus bilaterally. External auditory canals without discharge or otorrhea. Tympanic membranes pearly franklin without retraction or bulging. No fluid or purulent material visualized behind the TM. Handle of malleus, umbo, cone of light, pars tensa/flaccid all easily visualized. NOSE - Midline and without cyanosis. No epistaxis or purulent drainage noted. Septum midline without deviation or septal hematoma noted. MOUTH/OROPHARYNX - Without perioral cyanosis. Buccal mucosa pink and moist and without leukoplakia. Tongue midline with equal elevation of palate bilaterally. No tonsillar hypertrophy, erythema, or exudates noted. [] dentition noted. NECK - Neck with FROM. Supple to palpation. No nuchal rigidity. LUNGS - Chest wall symmetric without accessory muscle use, intercostals retractions, or central cyanosis. Normal vesicular breath sounds CTA B/L. No wheezes, rales, or rhonchi appreciated. CARDIAC - RRR with S1/S2. No murmur, rubs, or gallops appreciated. ABDOMEN - Abdominal contour normal without pulsations or visible masses. BS normoactive all four quadrants. No tenderness, palpable masses, hepatosplenomegaly, or ascites noted. EXTREMITIES - No clubbing or peripheral cyanosis. No pretibial edema present. +5/5 strength noted in UE/LE bilaterally. NEUROLOGIC - Cranial nerves II through XII grossly intact. Sensory intact to light touch throughout. PSYCH - A&O, and cooperates fully with examiner. Pt is very pleasant and interacts well with examiner. Course Administered Medications Magnesium Sulfate/Dextrose (Magnesium Sulfate / D5w) 1 gm in 100 mls @ 100 mls/hr IV Q1H TONI Stop: 04/23/19 07:25 Last Admin: 04/23/19 06:18 Dose: 100 mls/hr Documented by: [id number] Infusion: 04/23/19 06:18 Dose: 100 mls/hr Documented by: [id number] Admin: 04/23/19 05:25 Dose: 100 mls/hr Documented by: [id number] Infusion: 04/23/19 05:25 Dose: 100 mls/hr Documented by: [id number] Admin: 04/23/19 04:39 Dose: 100 mls/hr Documented by: [id number] Levothyroxine Sodium (Synthroid) 88 mcg PO DAILYBB TONI Stop: 05/23/19 06:29 Last Admin: 04/23/19 05:36 Dose: 88 mcg Documented by: [id number] Discontinued Medications Acetaminophen (Tylenol) 500 mg PO NOW STA Stop: 04/22/19 23:00 Last Admin: 04/22/19 23:03 Dose: 500 mg Documented by: [id number] Medical Decision Making Laboratory Data Result diagrams: 04/22/19 22:17 04/22/19 22:17 Lab Results 04/22/19 04/22/19 04/22/19 Range/Units 21:37 22:17 22:17 WBC 10.59 (4.8-10.8) K/uL RBC 4.22 (4.2-5.4) M/uL Hgb 12.4 (12.0-16.0) g/dL Hct 37.6 (37-47) % MCV 89.1 (80-100) fL MCH 29.4 (25-34) pg MCHC 33.0 (32-36) g/dL RDW Std Deviation 44.3 (36.4-46.3) fL RDW Coeff of Umair 13.9 (11.5-14.5) % Plt Count 238 (130-400) K/uL MPV 10.5 H (7.4-10.4) fL Immature Gran % (Auto) 0.4 % Neut % (Auto) 65.4 % Lymph % (Auto) 25.0 % Gordon % (Auto) 6.5 % Eos % (Auto) 2.4 % Baso % (Auto) 0.3 % Immature Gran # (Auto) 0.04 H (0.00-0.02) K/uL Neut # (Auto) 6.93 H (1.4-6.5) K/uL Lymph # (Auto) 2.65 (1.2-3.4) K/uL Gordon # (Auto) 0.69 H (0.11-0.59) K/uL Eos # (Auto) 0.25 (0-0.5) K/uL Baso # (Auto) 0.03 (0-0.2) K/uL VBG pH (7.36-7.41) VBG pCO2 (38-50) mmHg VBG pO2 mmHg VBG HCO3 mmol/L VBG O2 Saturation % VBG Base Excess mEq/L Barometric Pressure mm/Hg Sodium (136-145) mmol/L Potassium (3.5-5.1) mmol/L Chloride (98-107) mmol/L Carbon Dioxide (21-32) mmol/L Anion Gap (3-11) BUN (7-18) mg/dl Creatinine (0.6-1.2) mg/dl Est Cr Clr Drug Dosing Est GFR ( Amer) Est GFR (Non-Af Amer) BUN/Creatinine Ratio (10-20) Glucose (70-99) mg/dl POC Glucose 363 H* (70-99) mg/dl Calcium (8.5-10.1) mg/dl Magnesium (1.8-2.4) mg/dl Total Bilirubin (0.2-1) mg/dl AST (15-37) U/L ALT (12-78) U/L Alkaline Phosphatase (45-117) U/L Troponin I (0-0.045) ng/ml NT-Pro-B Natriuret Pep (0-900) pg/ml Total Protein (6.4-8.2) gm/dl Albumin (3.4-5.0) gm/dl Globulin (2.5-4.0) gm/dl Albumin/Globulin Ratio (0.9-2) Lipase (73-393) U/L Beta-Hydroxybutyric Acd (0.2-2.81) mg/dl TSH (0.300-4.500) uIu/ml Urine Color Urine Appearance (Clear) Urine pH (4.5-7.5) Ur Specific [place] (1.000-1.030) Urine Protein (Negative) Urine Glucose (UA) (Negative) Urine Ketones (Negative) Urine Blood (Negative) Urine Nitrite (Negative) Urine Bilirubin (Negative) Urine Urobilinogen (Negative) Ur Leukocyte Esterase (Negative) Urine WBC (Auto) (0-5) /hpf Urine RBC (Auto) (0-4) /hpf U Hyaline Cast (Auto) (0-5) /lpf U Epithel Cells (Auto) (0-5) /lpf Urine Bacteria (Auto) (Negative) Salicylates 2.9 (2.8-20) mg/dl Urine Opiates Screen (Neg) Ur Methadone, Qual (Neg) Acetaminophen < 2 L (10-30) ug/ml Urine Barbiturates (Neg) Ur Phencyclidine (PCP) (Neg) U Amphetamin/Meth Scrn (Neg) MDMA (Ecstasy) Screen (Neg) U Benzodiazepines Scrn (Neg) Ur Cocaine Metabolite (Neg) U Marijuana (THC) Screen (Neg) 04/22/19 04/22/19 04/22/19 Range/Units 22:17 22:17 22:19 WBC (4.8-10.8) K/uL RBC (4.2-5.4) M/uL Hgb (12.0-16.0) g/dL Hct (37-47) % MCV (80-100) fL MCH (25-34) pg MCHC (32-36) g/dL RDW Std Deviation (36.4-46.3) fL RDW Coeff of Umair (11.5-14.5) % Plt Count (130-400) K/uL MPV (7.4-10.4) fL Immature Gran % (Auto) % Neut % (Auto) % Lymph % (Auto) % Gordon % (Auto) % Eos % (Auto) % Baso % (Auto) % Immature Gran # (Auto) (0.00-0.02) K/uL Neut # (Auto) (1.4-6.5) K/uL Lymph # (Auto) (1.2-3.4) K/uL Gordon # (Auto) (0.11-0.59) K/uL Eos # (Auto) (0-0.5) K/uL Baso # (Auto) (0-0.2) K/uL VBG pH 7.39 (7.36-7.41) VBG pCO2 42 (38-50) mmHg VBG pO2 33 mmHg VBG HCO3 25 mmol/L VBG O2 Saturation < 60.0 % VBG Base Excess -0.3 mEq/L Barometric Pressure 730.8 mm/Hg Sodium 136 (136-145) mmol/L Potassium 3.6 (3.5-5.1) mmol/L Chloride 102 (98-107) mmol/L Carbon Dioxide 25 (21-32) mmol/L Anion Gap 9.0 (3-11) BUN 9 (7-18) mg/dl Creatinine 1.11 (0.6-1.2) mg/dl Est Cr Clr Drug Dosing Not Reportable Est GFR ( Amer) 62.9 Est GFR (Non-Af Amer) 54.3 BUN/Creatinine Ratio 8.4 L (10-20) Glucose 318 H* (70-99) mg/dl POC Glucose 318 H* (70-99) mg/dl Calcium 9.0 (8.5-10.1) mg/dl Magnesium 1.4 L (1.8-2.4) mg/dl Total Bilirubin 0.1 L (0.2-1) mg/dl AST 12 L (15-37) U/L ALT 21 (12-78) U/L Alkaline Phosphatase 124 H (45-117) U/L Troponin I < 0.015 (0-0.045) ng/ml NT-Pro-B Natriuret Pep 249 (0-900) pg/ml Total Protein 7.2 (6.4-8.2) gm/dl Albumin 3.0 L (3.4-5.0) gm/dl Globulin 4.2 H (2.5-4.0) gm/dl Albumin/Globulin Ratio 0.7 L (0.9-2) Lipase 132 (73-393) U/L Beta-Hydroxybutyric Acd 1.89 (0.2-2.81) mg/dl TSH 1.590 (0.300-4.500) uIu/ml Urine Color Urine Appearance (Clear) Urine pH (4.5-7.5) Ur Specific [place] (1.000-1.030) Urine Protein (Negative) Urine Glucose (UA) (Negative) Urine Ketones (Negative) Urine Blood (Negative) Urine Nitrite (Negative) Urine Bilirubin (Negative) Urine Urobilinogen (Negative) Ur Leukocyte Esterase (Negative) Urine WBC (Auto) (0-5) /hpf Urine RBC (Auto) (0-4) /hpf U Hyaline Cast (Auto) (0-5) /lpf U Epithel Cells (Auto) (0-5) /lpf Urine Bacteria (Auto) (Negative) Salicylates (2.8-20) mg/dl Urine Opiates Screen (Neg) Ur Methadone, Qual (Neg) Acetaminophen (10-30) ug/ml Urine Barbiturates (Neg) Ur Phencyclidine (PCP) (Neg) U Amphetamin/Meth Scrn (Neg) MDMA (Ecstasy) Screen (Neg) U Benzodiazepines Scrn (Neg) Ur Cocaine Metabolite (Neg) U Marijuana (THC) Screen (Neg) 04/22/19 04/22/19 04/23/19 Range/Units 22:28 22:29 02:06 WBC (4.8-10.8) K/uL RBC (4.2-5.4) M/uL Hgb (12.0-16.0) g/dL Hct (37-47) % MCV (80-100) fL MCH (25-34) pg MCHC (32-36) g/dL RDW Std Deviation (36.4-46.3) fL RDW Coeff of Umair (11.5-14.5) % Plt Count (130-400) K/uL MPV (7.4-10.4) fL Immature Gran % (Auto) % Neut % (Auto) % Lymph % (Auto) % Gordon % (Auto) % Eos % (Auto) % Baso % (Auto) % Immature Gran # (Auto) (0.00-0.02) K/uL Neut # (Auto) (1.4-6.5) K/uL Lymph # (Auto) (1.2-3.4) K/uL Gordon # (Auto) (0.11-0.59) K/uL Eos # (Auto) (0-0.5) K/uL Baso # (Auto) (0-0.2) K/uL VBG pH (7.36-7.41) VBG pCO2 (38-50) mmHg VBG pO2 mmHg VBG HCO3 mmol/L VBG O2 Saturation % VBG Base Excess mEq/L Barometric Pressure mm/Hg Sodium (136-145) mmol/L Potassium (3.5-5.1) mmol/L Chloride (98-107) mmol/L Carbon Dioxide (21-32) mmol/L Anion Gap (3-11) BUN (7-18) mg/dl Creatinine (0.6-1.2) mg/dl Est Cr Clr Drug Dosing Est GFR ( Amer) Est GFR (Non-Af Amer) BUN/Creatinine Ratio (10-20) Glucose (70-99) mg/dl POC Glucose 255 H (70-99) mg/dl Calcium (8.5-10.1) mg/dl Magnesium (1.8-2.4) mg/dl Total Bilirubin (0.2-1) mg/dl AST (15-37) U/L ALT (12-78) U/L Alkaline Phosphatase (45-117) U/L Troponin I (0-0.045) ng/ml NT-Pro-B Natriuret Pep (0-900) pg/ml Total Protein (6.4-8.2) gm/dl Albumin (3.4-5.0) gm/dl Globulin (2.5-4.0) gm/dl Albumin/Globulin Ratio (0.9-2) Lipase (73-393) U/L Beta-Hydroxybutyric Acd (0.2-2.81) mg/dl TSH (0.300-4.500) uIu/ml Urine Color Yellow Urine Appearance Clear (Clear) Urine pH 5.0 (4.5-7.5) Ur Specific [place] 1.040 H (1.000-1.030) Urine Protein Negative (Negative) Urine Glucose (UA) 3+ H (Negative) Urine Ketones Negative (Negative) Urine Blood Trace H (Negative) Urine Nitrite Negative (Negative) Urine Bilirubin Negative (Negative) Urine Urobilinogen Negative (Negative) Ur Leukocyte Esterase Negative (Negative) Urine WBC (Auto) 1-5 (0-5) /hpf Urine RBC (Auto) 0-4 (0-4) /hpf U Hyaline Cast (Auto) 1-5 (0-5) /lpf U Epithel Cells (Auto) >30 H (0-5) /lpf Urine Bacteria (Auto) Negative (Negative) Salicylates (2.8-20) mg/dl Urine Opiates Screen Neg (Neg) Ur Methadone, Qual Neg (Neg) Acetaminophen (10-30) ug/ml Urine Barbiturates Neg (Neg) Ur Phencyclidine (PCP) Neg (Neg) U Amphetamin/Meth Scrn Neg (Neg) MDMA (Ecstasy) Screen Neg (Neg) U Benzodiazepines Scrn Neg (Neg) Ur Cocaine Metabolite Neg (Neg) U Marijuana (THC) Screen Neg (Neg) Imaging Data Radiologist's Impression: XR chest 1V portable HISTORY: 58 years-old Female emesis acute nausea with vomiting COMPARISON: Chest radiograph and CTA chest 11/21/2016 TECHNIQUE: Portable AP view of the chest FINDINGS: Increased hazy density of the lung bradley are likely secondary to summation density secondary to patient obesity. The cardiac silhouette is enlarged. No pneumothorax, pleural effusion or airspace consolidation typical for pneumonia. Bones appear grossly intact. IMPRESSION: Cardiomegaly without acute process. ACT 112: Negative or not required by law. The above report was generated using voice recognition software. It may contain grammatical, syntax or spelling errors. Results electronically sent 04/22/2019 10:12 PM to: Sachin Rm PA-C Electronically signed by: Tl Cooper M.D. 04/22/2019 10:12 PM [facility] Narrative Patient was seen and evaluated as above in room C6. Review was performed of nursing notes and vital signs. After obtaining a thorough history and physical examination the above work up was performed. She presents to us today with diarrhea, and difficulty keeping food down for the past 3 weeks. She has also lost interest in basic daily activities and family is here concerned about her wellbeing. There is no SI or HI. Quick review of pertinent previous visits reveals that she was admitted previously in 2018 for similar presentation but at that point she did have a possible plan with possible SI. There is none of that today. Labs were drawn. There is no leukocytosis or anemia. No emergent metabolic disturbance. VBG normal. Glucose 318. Troponin is negative. BNP is normal. Urinalysis reveals 3+ glucose but otherwise no infection. Urine drug screen as well as a significant salicylate level are not concerning. An EKG was also obtained and reveals sinus rhythm with marked sinus arrhythmia at a rate of 78 bpm. There is no ectopy or ischemic change. QTc 426. No ST elevation. Patient was evaluated by our mental health delegate. At this point she does not meet any definite inpatient criteria strictly for mental health. However, there is hypomagnesemia noted of which this in addition to her presentation and concern for her decline ideally that she would be better suited in the inpatient setting of which the family numbers at bedside are highly wanting and the patient is in agreement. Case was discussed with the attending physician as well as the hospitalist. Please refer to further documentation regarding her stay. Case was discussed with the attending physician. I attest that I have personally reviewed the patient medication list. I attest that I have reviewed the patient's blood pressure and it was found to be elevated on presentation. GCS: 15 In the evaluation and treatment of this patient the following differential diagnoses were entertained: C. difficile colitis, viral gastroenteritis, electrolyte disturbance, uncontrolled diabetes, among others. Impression & Plan Hypomagnesemia, Vomiting, Hyperglycemia Discharge Plan Visit Data *Final* Discharge Date/Time: 04/23/19 03:45 Chief Complaint: Hyperglycemia Stated Complaint: DIARRHEA 3 WEEKS, CAN'T KEEP FOOD DOWN ED Provider: Joaquin Lo ED Midlevel Provider: Sachin Rm Discharge Problem: Hypomagnesemia, Vomiting, Hyperglycemia Patient Disposition: Admitted As Inpatient Condition: Good Discharge Instructions Interventions: ED Discharge Assessment Last Done: 04/23/19 03:45
[2019-04-22 22:27] LABS: Basophils # (auto) 0.03 K/uL (0-0.2); Basophils % (auto) 0.3 %; Eosinophils # (auto) 0.25 K/uL (0-0.5); Eosinophils % (auto) 2.4 %; Hematocrit (blood only) 37.6 % (37-47); Hemoglobin 12.4 g/dL (12.0-16.0); Immature Granulocytes # (auto) 0.04 K/uL (0.00-0.02); Immature Granulocytes % (auto) 0.4 %; Lymphocytes # (auto) 2.65 K/uL (1.2-3.4); Mean Corpuscular Hemoglobin 29.4 pg (25-34); Mean Corpuscular Volume 89.1 fL (80-100); Mean Platelet Volume 10.5 fL (7.4-10.4); Monocytes # (auto) 0.69 K/uL (0.11-0.59); Monocytes % (auto) 6.5 %; Neutrophils # (auto) 6.93 K/uL (1.4-6.5); Neutrophils % (auto) 65.4 %; Platelet Count 238 K/uL (130-400); RDW Coefficient of Variation 13.9 % (11.5-14.5); RDW Standard Deviation 44.3 fL (36.4-46.3); Red Blood Count 4.22 M/uL (4.2-5.4); White Blood Count 10.59 K/uL (4.8-10.8)
[2019-04-22 22:34] LABS: Base Excess VBG -0.3 mEq/L; HCO3 VBG 25 mmol/L; PCO2 VBG 42 mmHg (38-50); PO2 VBG 33 mmHg; pH VBG 7.39 (7.36-7.41)
[2019-04-22 22:35] LABS: Oxygen Saturation VBG < 60.0 %
[2019-04-22 22:47] LABS: Appearance Urine Clear (Clear); Bacteria Urine Automated Negative (Negative); Bilirubin Urine Negative (Negative); Blood Urine Trace (Negative); Color Urine Yellow; Epithelial Cell Urine Auto >30 /lpf (0-5); Glucose Urine UA 3+ (Negative); Ketones Urine Negative (Negative); Leukocyte Esterase Urine Negative (Negative); Nitrite Urine Negative (Negative); Protein Urine Negative (Negative); RBC Urine Automated 0-4 /hpf (0-4); Urobilinogen Urine Negative (Negative)
[2019-04-22 22:48] LABS: Acetaminophen < 2 ug/ml (10-30); Salicylate 2.9 mg/dl (2.8-20)
[2019-04-22 22:56] LABS: Alanine Aminotransferase 21 U/L (12-78); Aspartate Aminotransferase 12 U/L (15-37); BUN Creatinine Ratio 8.4 (10-20); Blood Urea Nitrogen 9 mg/dl (7-18); Carbon Dioxide 25 mmol/L (21-32); Chloride 102 mmol/L (98-107); Est GFR (African American) 62.9; Est GFR (Non-African American) 54.3; Glucose 318 mg/dl (70-99); Lipase 132 U/L (73-393); Magnesium 1.4 mg/dl (1.8-2.4); Potassium 3.6 mmol/L (3.5-5.1); Sodium 136 mmol/L (136-145)
[2019-04-22 22:58] LABS: Albumin Globulin Ratio 0.7 (0.9-2); Alkaline Phosphatase 124 U/L (45-117); Bilirubin,Total 0.1 mg/dl (0.2-1); Globulin 4.2 gm/dl (2.5-4.0); NT Pro B Type Natriuretic Pept 249 pg/ml (0-900); Total Protein 7.2 gm/dl (6.4-8.2); Troponin I < 0.015 ng/ml (0-0.045)
[2019-04-22] MEDS ORDERED: ACETAMINOPHEN 500 MG TAB PO STA (22:59)
[2019-04-22 23:06] LABS: Amphetamines+Metham, Urine Neg (Neg); Barbiturates, Urine Neg (Neg); Benzodiazepine, Urine Neg (Neg); Cocaine, Urine Neg (Neg); MDMA (Ecstacy), Urine Neg (Neg); Methadone, Urine Neg (Neg); Opiate, Urine Neg (Neg); Phencyclidine, Urine Neg (Neg)
[2019-04-22 23:06] LABS: Beta-Hydroxybutyrate 1.89 mg/dl (0.2-2.81)
--- NOTE | 2019-04-23 02:50 | History & Physical Report ---
Date of Service April 23, 2019 Assessment & Plan (1) Uncontrolled type 2 diabetes mellitus: Patient is a morbidly be obese 58-year-old female with a past medical history of uncontrolled type 2 diabetes on insulin, arthralgias of multiple sites, chronic kidney disease, hyperlipidemia, hypertension long-term NSAID use, microalbuminuria, psoriasis, anxiety, current smoker who presented at her family's insistence for evaluation of diarrhea that is been ongoing for 3 weeks and self-neglect subsequently diagnosed with hyperglycemia and noted to have been off her psychiatric medications for a number of weeks. #Uncontrolled type 2 diabetes mellitus on insulin with kidney disease Patient with a longstanding history of poorly controlled diabetes, per review of records it appears the last time she had adequate control of her diabetes was in November 2017. Most recent A1c from April 182019 was 13.3. Per report the patient has not been taking her medications as prescribed at home. Presented to the hospital with significant hyperglycemia, will address with appropriate insulin. Holding home diabetes medications Consult glycemic management perioperative educator consulted Monitor for signs and symptoms development of HHS #Hyperglycemia See above #Anxiety Patiently previously admitted and evaluated for presumed psych diagnosis at that time was thought to be anxiety about a general medical illness later diagnosed with depression however at times there were some features of psychosis. Based upon her current presentation and my limited evaluation of the patient appears if she displaying many of the negative symptoms of schizophrenia, including lack of self-care, lack of care for home, not showering, among others. I asked her if she had previously been diagnosed with schizophrenia she stated no, she stated she did not know the psych meds she was previously on. Obviously given her current presentation she will need a psych consultation and evaluation as well as restarting of her medication. I understand there is significant risks particularly metabolic in nature associated with atypical antipsychotics however in this patient I believe that the benefits are starting to outweigh the potential risks Restart prior psych meds Lexapro 20 mg p.o. daily -Clonazepam 0.25 mg twice daily -I had previously seen she was on BuSpar, it is not on her home med list, will withhold for now Consult psychiatry appreciate their help Discharge planning #Shortness of breath Patient resting a recent history of shortness of breath, physical exam is unimpressive. Differential to include deconditioning versus PE as the patient is pretty sedentary at baseline. Likelihood of PE is fairly low as patient vital signs are stable, Wells criteria equals 4.5. In the ED population this equates to 16.2 chance, however in the inpatient setting another study rated scores less than or equal to 4 his PE unlikely with a 3% incidence of PE. Given the above we will perform a duplex ultrasound to rule out DVT. -Duplex ultrasound -Continuous pulse ox -PRN O2 goal greater than 90 #Hyperlipidemia Continue simvastatin 40 mg p.o. at bedtime Continue baby aspirin #Chronic kidney disease Baseline creatinine appears to be around 1, on admission 1.1. Continue home meds Continue spironolactone 25 mg p.o. daily #Hypertension Continue lisinopril 40 mg p.o. daily Continue metoprolol tartrate 25 mg p.o. twice daily #Hypothyroidism Continue levothyroxine 88 mcg #Skylar Continue nystatin topical cream as needed #Calf pain Follow-up venous duplex #Tobacco abuse Provided education on smoking cessation FENa: Heart healthy, type II diabetic diet Code Status: Full code DVT PPX: Ordered PT/OT: Ordered Dispo: Jeremias Kraus MD PGY 2, FCM This chart was completed utilizing [employer] voice recognition software. Grammatical errors, random word insertions, pronoun errors, and in complete sentences are an occasional consequence of the system. Any questions or concerns about the content, text, or information contained within the body of this dictation should be addressed directly to the physician for clarification. (2) Diabetes mellitus with kidney disease: (3) Hyperlipidemia: (4) Hypertension: (5) Hypothyroidism: (6) Microalbuminuria: (7) NSAID long-term use: (8) Obesity: (9) Anxiety: (10) Smoking: (11) Hypomagnesemia: (12) Calf pain: (13) SOB (shortness of breath): (14) Candidiasis: History of Present Illness Patient is a morbidly be obese 58-year-old female with a past medical history of uncontrolled type 2 diabetes on insulin, arthralgias of multiple sites, chronic kidney disease, hyperlipidemia, hypertension long-term NSAID use, microalbuminuria, psoriasis, anxiety, current smoker who presented at her family's insistence for evaluation of diarrhea that is been ongoing for 3 weeks and self-neglect subsequently diagnosed with hyperglycemia and noted to have been off her psychiatric medications for a number of weeks. In the emergency department routine labs were obtained and notable for a white blood cell count of 10.59 a hemoglobin of 12.4 platelet count of 238 sodium of 136 potassium 3.6 glucose 318 creatinine 1.11, magnesium 1.4, UA was clean, UDS was clean, Chest x-ray demonstrated cardiomegaly without acute process.Given her hyperglycemia, hypomagnesemia, and need for psychiatric care the hospital service was consulted for admission Upon my arrival the patient was lying in bed in no acute distress. She reports patient stopped her psychiatric medications due toUC closure. Approximately 3 weeks ago she began to experience diarrhea that occurred approximately 4 times a day, usually associated with eating. She has tried antidiarrheal medication with no success. There is no associated nausea and vomiting no associated fevers and chills, chest pressure, chest pain, shortness of breath, sensory changes, motor changes or any other significant associated symptoms with the exception of patient reporting being increasingly sweaty. She reports that she has not had these symptoms before, they are distressing to her on a level of 5 out of 10. Per report from the family the patient has been exhibiting signifi cant symptoms of self-neglect her house is been in shambles, she is not caring for self, not eating, not taking her medications. I did have the opportunity discussed with the family directly but this is the sign and I received from the PA on duty. The patient will be [facility] for treatment of her hypomagnesemia, and hyperglycemia as well as consultation by psychiatry. Primary Care Provider: Prashant Pina MD Allergies Allergy/AdvReac Type Severity Reaction Status Date / Time albiglutide [From Tanzeum] AdvReac Unknown Verified 04/22/19 23:02 dulaglutide [From Trulicity] AdvReac Unknown Verified 04/22/19 23:02 Home Medications Home Medications Medication Instructions Recorded Confirmed Type aspirin 81 mg tablet,delayed 81 mg PO DAILY #90 tab 09/03/18 04/22/19 Rx release clonazepam 0.5 mg tablet 0.25 mg PO BID tab 10/07/18 04/22/19 History spironolactone 25 mg tablet 25 mg PO DAILY 10/07/18 04/22/19 History pen needle, diabetic 32 gauge x #200 ea 10/08/18 04/22/19 Rx " levothyroxine 88 mcg tablet 88 mcg PO DAILY #90 tab 12/02/18 04/22/19 Rx metformin 1,000 mg tablet 1,000 mg PO BID #180 tab 12/02/18 04/22/19 Rx metoprolol tartrate 25 mg tablet 25 mg PO BID #180 tab 12/02/18 04/22/19 Rx nystatin 100,000 unit/gram topical 1 appln TOP BID 14 Days #30 gm 12/30/18 04/22/19 Rx cream simvastatin 40 mg tablet 40 mg PO HS #30 tab 02/23/19 04/22/19 Rx Novolog Flexpen U-100 Insulin 100 30 units SQ .COMPLEX 30 Days #2 03/02/19 04/22/19 Rx unit/mL (3 mL) subcutaneous box NS escitalopram oxalate [Lexapro] 20 mg PO DAILY 04/22/19 04/22/19 History insulin glargine [Lantus Solostar 40 - 50 units SQ DAILY 04/22/19 04/22/19 History U-100 Insulin] lisinopril 40 mg PO DAILY 04/22/19 04/22/19 History Past Med/Surg History Surgical History History of cholecystectomy History of dental surgery History of tonsillectomy Family History Unknown Thyroid disorder Diabetes Father Diabetes Social History Preferred Language: Lao Feels Safe at Home: Yes Smoking Status: Current every day smoker Review of Systems Review of Systems: All systems reviewed & are unremarkable except as noted in HPI & below Physical Exam Physical Exam: General: Morbidly obese female lying in bed in no acute distress HEENT: Normocephalic atraumatic Neck: Trachea midline, normal to visual inspection, no JVD Cardiac: Exam limited by body habitus however regular rate and rhythm, no murmurs rubs or gallops, normal S1, normal S2, did not appreciate significant pedal edema, calf tenderness bilaterally Respiratory: Exam limited by body habitus otherwise diminished breath sounds with clear to auscultation bilaterally symmetrical chest expansion no increased work of breathing GI: Bowel sounds present, distended, nontender MSK: Moves all extremities Skin: Numerous scabs throughout her lower extremities Neuro: Alert and oriented x4 Psych: A: Disheveled appearance, had a body odor, not well-groomed B: Appropriate, cooperative with the exam S: A bit slow to answer at times, spacey M: "I feel fine " A: Congruent T: Tangential Results & Data Vital Signs (Past 12 Hours) Vital Signs Temp Pulse Pulse Resp BP BP Pulse Ox 04/23/19 02:09 87 18 126/58 L 94 04/23/19 00:43 82 18 133/67 95 04/22/19 22:37 84 18 133/71 96 04/22/19 22:13 97 04/22/19 21:33 36.8 C 109 H 18 168/87 H 97 Laboratory Results 04/23/19 04/22/19 04/22/19 Range/Units 02:06 22:29 22:28 WBC (4.8-10.8) K/uL RBC (4.2-5.4) M/uL Hgb (12.0-16.0) g/dL Hct (37-47) % MCV (80-100) fL MCH (25-34) pg MCHC (32-36) g/dL RDW Std Deviation (36.4-46.3) fL RDW Coeff of Umair (11.5-14.5) % Plt Count (130-400) K/uL MPV (7.4-10.4) fL Immature Gran % (Auto) % Neut % (Auto) % Lymph % (Auto) % [place] % (Auto) % Eos % (Auto) % Baso % (Auto) % Immature Gran # (Auto) (0.00-0.02) K/uL Neut # (Auto) (1.4-6.5) K/uL Lymph # (Auto) (1.2-3.4) K/uL [place] # (Auto) (0.11-0.59) K/uL Eos # (Auto) (0-0.5) K/uL Baso # (Auto) (0-0.2) K/uL VBG pH (7.36-7.41) VBG pCO2 (38-50) mmHg VBG pO2 mmHg VBG HCO3 mmol/L VBG O2 Saturation % VBG Base Excess mEq/L Barometric Pressure mm/Hg Sodium (136-145) mmol/L Potassium (3.5-5.1) mmol/L Chloride (98-107) mmol/L Carbon Dioxide (21-32) mmol/L Anion Gap (3-11) BUN (7-18) mg/dl Creatinine (0.6-1.2) mg/dl Est Cr Clr Drug Dosing Est GFR ( Amer) Est GFR (Non-Af Amer) BUN/Creatinine Ratio (10-20) Glucose (70-99) mg/dl POC Glucose 255 H (70-99) mg/dl Calcium (8.5-10.1) mg/dl Magnesium (1.8-2.4) mg/dl Total Bilirubin (0.2-1) mg/dl AST (15-37) U/L ALT (12-78) U/L Alkaline Phosphatase (45-117) U/L Troponin I (0-0.045) ng/ml NT-Pro-B Natriuret Pep (0-900) pg/ml Total Protein (6.4-8.2) gm/dl Albumin (3.4-5.0) gm/dl Globulin (2.5-4.0) gm/dl Albumin/Globulin Ratio (0.9-2) Lipase (73-393) U/L Beta-Hydroxybutyric Acd (0.2-2.81) mg/dl TSH (0.300-4.500) uIu/ml Urine Color Yellow Urine Appearance Clear (Clear) Urine pH 5.0 (4.5-7.5) Ur Specific [place] 1.040 H (1.000-1.030) Urine Protein Negative (Negative) Urine Glucose (UA) 3+ H (Negative) Urine Ketones Negative (Negative) Urine Blood Trace H (Negative) Urine Nitrite Negative (Negative) Urine Bilirubin Negative (Negative) Urine Urobilinogen Negative (Negative) Ur Leukocyte Esterase Negative (Negative) Urine WBC (Auto) 1-5 (0-5) /hpf Urine RBC (Auto) 0-4 (0-4) /hpf U Hyaline Cast (Auto) 1-5 (0-5) /lpf U Epithel Cells (Auto) >30 H (0-5) /lpf Urine Bacteria (Auto) Negative (Negative) Salicylates (2.8-20) mg/dl Urine Opiates Screen Neg (Neg) Ur Methadone, Qual Neg (Neg) Acetaminophen (10-30) ug/ml Urine Barbiturates Neg (Neg) Ur Phencyclidine (PCP) Neg (Neg) U Amphetamin/Meth Scrn Neg (Neg) MDMA (Ecstasy) Screen Neg (Neg) U Benzodiazepines Scrn Neg (Neg) Ur Cocaine Metabolite Neg (Neg) U Marijuana (THC) Screen Neg (Neg) 04/22/19 04/22/19 04/22/19 Range/Units 22:19 22:17 22:17 WBC (4.8-10.8) K/uL RBC (4.2-5.4) M/uL Hgb (12.0-16.0) g/dL Hct (37-47) % MCV (80-100) fL MCH (25-34) pg MCHC (32-36) g/dL RDW Std Deviation (36.4-46.3) fL RDW Coeff of Umair (11.5-14.5) % Plt Count (130-400) K/uL MPV (7.4-10.4) fL Immature Gran % (Auto) % Neut % (Auto) % Lymph % (Auto) % [place] % (Auto) % Eos % (Auto) % Baso % (Auto) % Immature Gran # (Auto) (0.00-0.02) K/uL Neut # (Auto) (1.4-6.5) K/uL Lymph # (Auto) (1.2-3.4) K/uL [place] # (Auto) (0.11-0.59) K/uL Eos # (Auto) (0-0.5) K/uL Baso # (Auto) (0-0.2) K/uL VBG pH 7.39 (7.36-7.41) VBG pCO2 42 (38-50) mmHg VBG pO2 33 mmHg VBG HCO3 25 mmol/L VBG O2 Saturation < 60.0 % VBG Base Excess -0.3 mEq/L Barometric Pressure 730.8 mm/Hg Sodium 136 (136-145) mmol/L Potassium 3.6 (3.5-5.1) mmol/L Chloride 102 (98-107) mmol/L Carbon Dioxide 25 (21-32) mmol/L Anion Gap 9.0 (3-11) BUN 9 (7-18) mg/dl Creatinine 1.11 (0.6-1.2) mg/dl Est Cr Clr Drug Dosing Not Reportable Est GFR ( Amer) 62.9 Est GFR (Non-Af Amer) 54.3 BUN/Creatinine Ratio 8.4 L (10-20) Glucose 318 H* (70-99) mg/dl POC Glucose 318 H* (70-99) mg/dl Calcium 9.0 (8.5-10.1) mg/dl Magnesium 1.4 L (1.8-2.4) mg/dl Total Bilirubin 0.1 L (0.2-1) mg/dl AST 12 L (15-37) U/L ALT 21 (12-78) U/L Alkaline Phosphatase 124 H (45-117) U/L Troponin I < 0.015 (0-0.045) ng/ml NT-Pro-B Natriuret Pep 249 (0-900) pg/ml Total Protein 7.2 (6.4-8.2) gm/dl Albumin 3.0 L (3.4-5.0) gm/dl Globulin 4.2 H (2.5-4.0) gm/dl Albumin/Globulin Ratio 0.7 L (0.9-2) Lipase 132 (73-393) U/L Beta-Hydroxybutyric Acd 1.89 (0.2-2.81) mg/dl TSH 1.590 (0.300-4.500) uIu/ml Urine Color Urine Appearance (Clear) Urine pH (4.5-7.5) Ur Specific [place] (1.000-1.030) Urine Protein (Negative) Urine Glucose (UA) (Negative) Urine Ketones (Negative) Urine Blood (Negative) Urine Nitrite (Negative) Urine Bilirubin (Negative) Urine Urobilinogen (Negative) Ur Leukocyte Esterase (Negative) Urine WBC (Auto) (0-5) /hpf Urine RBC (Auto) (0-4) /hpf U Hyaline Cast (Auto) (0-5) /lpf U Epithel Cells (Auto) (0-5) /lpf Urine Bacteria (Auto) (Negative) Salicylates (2.8-20) mg/dl Urine Opiates Screen (Neg) Ur Methadone, Qual (Neg) Acetaminophen (10-30) ug/ml Urine Barbiturates (Neg) Ur Phencyclidine (PCP) (Neg) U Amphetamin/Meth Scrn (Neg) MDMA (Ecstasy) Screen (Neg) U Benzodiazepines Scrn (Neg) Ur Cocaine Metabolite (Neg) U Marijuana (THC) Screen (Neg) 04/22/19 04/22/19 04/22/19 Range/Units 22:17 22:17 21:37 WBC 10.59 (4.8-10.8) K/uL RBC 4.22 (4.2-5.4) M/uL Hgb 12.4 (12.0-16.0) g/dL Hct 37.6 (37-47) % MCV 89.1 (80-100) fL MCH 29.4 (25-34) pg MCHC 33.0 (32-36) g/dL RDW Std Deviation 44.3 (36.4-46.3) fL RDW Coeff of Umair 13.9 (11.5-14.5) % Plt Count 238 (130-400) K/uL MPV 10.5 H (7.4-10.4) fL Immature Gran % (Auto) 0.4 % Neut % (Auto) 65.4 % Lymph % (Auto) 25.0 % [place] % (Auto) 6.5 % Eos % (Auto) 2.4 % Baso % (Auto) 0.3 % Immature Gran # (Auto) 0.04 H (0.00-0.02) K/uL Neut # (Auto) 6.93 H (1.4-6.5) K/uL Lymph # (Auto) 2.65 (1.2-3.4) K/uL [place] # (Auto) 0.69 H (0.11-0.59) K/uL Eos # (Auto) 0.25 (0-0.5) K/uL Baso # (Auto) 0.03 (0-0.2) K/uL VBG pH (7.36-7.41) VBG pCO2 (38-50) mmHg VBG pO2 mmHg VBG HCO3 mmol/L VBG O2 Saturation % VBG Base Excess mEq/L Barometric Pressure mm/Hg Sodium (136-145) mmol/L Potassium (3.5-5.1) mmol/L Chloride (98-107) mmol/L Carbon Dioxide (21-32) mmol/L Anion Gap (3-11) BUN (7-18) mg/dl Creatinine (0.6-1.2) mg/dl Est Cr Clr Drug Dosing Est GFR ( Amer) Est GFR (Non-Af Amer) BUN/Creatinine Ratio (10-20) Glucose (70-99) mg/dl POC Glucose 363 H* (70-99) mg/dl Calcium (8.5-10.1) mg/dl Magnesium (1.8-2.4) mg/dl Total Bilirubin (0.2-1) mg/dl AST (15-37) U/L ALT (12-78) U/L Alkaline Phosphatase (45-117) U/L Troponin I (0-0.045) ng/ml NT-Pro-B Natriuret Pep (0-900) pg/ml Total Protein (6.4-8.2) gm/dl Albumin (3.4-5.0) gm/dl Globulin (2.5-4.0) gm/dl Albumin/Globulin Ratio (0.9-2) Lipase (73-393) U/L Beta-Hydroxybutyric Acd (0.2-2.81) mg/dl TSH (0.300-4.500) uIu/ml Urine Color Urine Appearance (Clear) Urine pH (4.5-7.5) Ur Specific [place] (1.000-1.030) Urine Protein (Negative) Urine Glucose (UA) (Negative) Urine Ketones (Negative) Urine Blood (Negative) Urine Nitrite (Negative) Urine Bilirubin (Negative) Urine Urobilinogen (Negative) Ur Leukocyte Esterase (Negative) Urine WBC (Auto) (0-5) /hpf Urine RBC (Auto) (0-4) /hpf U Hyaline Cast (Auto) (0-5) /lpf U Epithel Cells (Auto) (0-5) /lpf Urine Bacteria (Auto) (Negative) Salicylates 2.9 (2.8-20) mg/dl Urine Opiates Screen (Neg) Ur Methadone, Qual (Neg) Acetaminophen < 2 L (10-30) ug/ml Urine Barbiturates (Neg) Ur Phencyclidine (PCP) (Neg) U Amphetamin/Meth Scrn (Neg) MDMA (Ecstasy) Screen (Neg) U Benzodiazepines Scrn (Neg) Ur Cocaine Metabolite (Neg) U Marijuana (THC) Screen (Neg) Code Status & VTE Plan Code Status Full VTE Prophylaxis Plan VTE Prophylaxis will be ordered: Yes Supervising Physician Co-Signing Physician Notes Attending addendum: I have physically seen this patient, have supervised the medical residents activities, and agree with the H&P unless as otherwise noted. Assessment and Plan: Diabetes mellitus type 2 with poor control- Unclear if patient is taking her medications as directed. Cancel glycemic consult. Patient dosing at home 40 to 50 units of Lantus subcu daily. Start Lantus 30 units subcu daily every morning. Place on Accu-Cheks before meals and at bedtime with NovoLog coverage for scale. Hold metformin. Remainder of orders and notations as noted. Resident Activity Tracking Resident Involvement: Resident Care Provided Care Provided: Adult Hospital Medicine
--- NOTE | 2019-04-23 04:00 | Billing Data ---
Date of Service April 23, 2019 Coding Level of Care Code 60119 Initial Inpt Care Lvl 3
[2019-04-23] MEDS ORDERED: CARBOHYDRATES FOR HYPOGLYCEMIA PO PRN (04:20)
[2019-04-23] MEDS ORDERED: GLUCOSE 10 TABS/TUBE PO PRN (04:20)
[2019-04-23] MEDS ORDERED: GLUCOSE 40% GEL 15 GM TUBE PO PRN (04:20)
[2019-04-23] MEDS ORDERED: ONDANSETRON INJ 2 MG/ML 2 ML VIAL IV PRN (04:20)
[2019-04-23] MEDS ORDERED: DEXTROSE 50% 50 ML SYRINGE IV PRN (04:20)
[2019-04-23] MEDS ORDERED: POLYETHYLENE (MIRALAX) 17 GM PACK PO PRN (04:20)
[2019-04-23] MEDS ORDERED: GLUCAGON FOR INJ 1 MG VIAL SQ PRN (04:20)
[2019-04-23] MEDS: MAGNESIUM SULFATE / D5W 1 GM/100 ML BAG IV SCH ×4 (04:39→07:35)
[2019-04-23] MEDS: LEVOTHYROXINE SODIUM 88 MCG TABLET PO SCH (05:36)
--- NOTE | 2019-04-23 07:18 | Ultrasound Report ---
US venous doppler LE CLINICAL HISTORY: 58 years-old Female presenting with calf pain. TECHNIQUE: Real-time grayscale and color and spectral Doppler ultrasound imaging of the veins of the bilateral lower extremities was performed. Compression and augmentation were also utilized. COMPARISON: None. FINDINGS: RIGHT: Common femoral vein: Patent. Greater saphenous vein (superficial): Patent. Deep femoral vein: Patent. Femoral vein: Patent. Popliteal vein: Patent. Calf veins: Limited visualization though grossly patent. LEFT: Common femoral vein: Patent. Greater saphenous vein (superficial): Patent. Deep femoral vein: Patent. Femoral vein: Patent. Popliteal vein: Patent. Calf veins: Limited visualization though grossly patent. Other: Subcutaneous edema noted bilaterally. IMPRESSION: No evidence of deep venous thrombosis. ACT 112: Negative or not required by law. Results electronically sent 04/23/2019 7:17 AM to: Kevin Kraus MD Electronically signed by: Eh Barahona M.D. 04/23/2019 7:17 AM
[2019-04-23] MEDS ORDERED: METFORMIN HCL 500 MG TAB PO SCH (08:00)
[2019-04-23] MEDS: ASPIRIN 81 MG ECTAB PO SCH (08:41)
[2019-04-23] MEDS: SPIRONOLACTONE 25 MG TAB PO SCH (08:41)
[2019-04-23] MEDS: clonazePAM 0.25 MG TAB PO SCH ×2 (08:42→22:33)
[2019-04-23] MEDS: lisinopriL 40 MG TAB PO SCH (08:43)
[2019-04-23] MEDS: ESCITALOPRAM OXALATE 20 MG TAB PO SCH (08:43)
[2019-04-23] MEDS: METOPROLOL TARTRATE 25 MG TAB PO SCH ×2 (08:43→21:05)
[2019-04-23] MEDS: NYSTATIN CR 15 GM TUBE EXT SCH ×2 (08:44→21:05)
[2019-04-23] MEDS: ACETAMINOPHEN 325 MG TAB PO PRN (08:49)
[2019-04-23] MEDS ORDERED: PHARMACY GLYCEMIC MGMT CONSULT PRN (08:58)
[2019-04-23] MEDS ORDERED: INSULIN GLARGINE SOLOSTAR 100 UNITS/ML 3 ML PEN SQ SCH (09:00)
[2019-04-23] MEDS: INSULIN ASPART 100 UNITS/ML 3 ML PEN SC SCH ×4 (09:12→21:01)
[2019-04-23] MEDS: ENOXAPARIN INJ 40 MG/0.4 ML SYR SQ SCH (09:14)
[2019-04-23] MEDS: INSULIN GLARGINE SOLOSTAR 100 UNITS/ML 3 ML PEN SQ SCH (09:15)
[2019-04-23] MEDS: NICOTINE 14 MG/24 HR PATCH TD SCH (09:19)
--- NOTE | 2019-04-23 11:20 | Pharmacy Report ---
Glycemic Control Consultation - Date of Service April 23, 2019 - Scope Scope: Glycemic Pharmacist consulted for glycemic control and to write orders per [facility] inpatient glycemic control protocol. - Objective Weight: 119.9 kg Accuchecks BSG (last 24hrs): 04/22/19 04/22/19 04/22/19 21:37 22:17 22:19 Glucose 318 H* POC Glucose 363 H* 318 H* 04/23/19 04/23/19 04/23/19 02:06 08:02 08:02 Glucose POC Glucose 255 H 370 H* 387 H* Laboratory Data (last 24hrs): 04/22/19 22:17 Potassium 3.6 Carbon Dioxide 25 Anion Gap 9.0 Creatinine 1.11 Est Cr Clr Drug Dosing Not Reportable Beta-Hydroxybutyric Acd 1.89 - Recent Pertinent Medications Outpatient Anti-diabetic Regimen: * Lantus 40-50 units daily * Novolog 20-30 units with meals * Metformin 1 gm BID * non-compliance with regimen * A1c = 13.3 % 04/19/19 Risk Factors for Insulin Resistance: * Diet: T2DM * Baseline insulin resistance due to poor outpatient control - Assessment & Plan Assessment & Plan: ASSESSMENT: * 58 y/o F admitted for ongoing diarrhea and hyperglycemia. She has a history of poorly controlled diabetes, that seems to be long-standing, based on outpatient records. * BSGs have been in the 300s since admission overnight. She had not received any insulin until I was consulted this AM. Will plan to be aggressive with Lantus and Novolog dosing. Would like to give an IV bolus but K is only 3.6 so will hold off for now and see if there's an improvement with SQ dosing. * Update on afternoon BSGs: 272 mg/dL at 1200, 293 mg/dL at 1400. AM Novolog was given after 9 am and parameters were tightened at lunch so should expect to see some improvement soon with stacking of insulin. Will plan to move HS dose of Lantus to dinner administration to have more basal on board. PLAN FOR INPATIENT GLYCEMIC CONTROL: * Holding outpatient oral diabetes medications * Basal insulin * Lantus 40 units qAM * Lantus qHS per the following scale: (start today w/ dinner) * Hold for BSG < 140 * 20 units for BSG 140-180 * 40 units for BSG > 180 * Bolus insulin * NovoLog per scale ACHS + 00,04 for additional correction if needed * Goal Range: Low 110 mg/dL - High 140 mg/dL * Correction Factor: 15 mg/dL/unit * Nutritional / Prandial insulin per carb ratio of 1 unit per 5 grams CHO consumed * Please note that the plan above was derived based on current level of insulin resistance and hospital stress. These recommendations are appropriate for inpatient admission only. Plan of care upon discharge will need to be reassessed to avoid potential outpatient hypo/hyperglycemia. Thank you.
--- NOTE | 2019-04-23 12:09 | Psychiatric Consultation ---
Date of Consultation April 23, 2019 Impression / Recommendations Impression Dr. Corey Andrade was directly involved in review and discussion of the patient's case and participated in medical decision making regarding treatment recommendations. RECOMMENDATIONS: 04/22 - While patient does present with an interesting clinical picture, as her anxiety is reportedly only surrounding her diabetes management, she does not meet clinical criteria for schizophrenia or any primary thought disorder. Continue working diagnosis from 02/2017 which was unspecified anxiety disorder. Differential does include generalized anxiety disorder, obsessive compulsive traits, or anxiety related to a medical condition. Unspecified depressive disorder may also be present - previously treated for "depressive disorder due to another medical condition" - Pt is a rather limited historian, and it remains unclear if she truly has not been taking her psychiatric medications - she has several recent prescriptions sent from her PCP's office, though does admit she has not been seen at [facility] for a psychiatric visit since before Angela. - [id number], patient is agreeable with continuing escitalopram as ordered by primary team. - Pt was agreeable with referral for outpatient psychiatrist and therapist - Suggest continued involvement of diabetic educators to reinforce appropriate management of the patient's diabetes. She may benefit from diabetes support groups as well. - There is no criteria for inpatient psychiatric treatment, though it appears she may require additional support at home or possibly relocation to a more supportive living environment Risk Factors Assessment Do You Have Access To A Gun?: No Psych History Identifying Data 58-year-old female admitted medically on 04/22/2019 after presenting to the ED with complaints of diarrhea for the past 3 weeks. Pt is known to our service from a psychiatric admission in 02/2017. Psychiatric consultation was requested by primary team. Chief Complaint "Well, I had the diarrhea for 3 weeks now. It was getting really bad." History of Present Illness Yolanda Lua is a 58-year-old female admitted medically on 04/22/2019 after presenting to the ED with diarrhea for the past 3 weeks. Pt has a PMH of insulin-dependent type II diabetes, CKD, hyperlipidemia, HTN, anxiety, and tobacco dependence. Pt is known to our service from a psychiatric hospitalization from 02/20/2017 - 03/06/2017. At that time, patient was diagnosed with anxiety related to her diabetes and depression related to a medical condition. She was referred to psychiatric providers at [facility] after this admission, but not been seen on an outpatient basis since before Thanksgiving per patient's reports. Pt is cooperative with psychiatric evaluation. She provides verbal consent to allow Iman Grove PA-C to observe today's encounter. Pt states that she is feeling tired today. She indicates that she presented to the hospital after experiencing diarrhea for the past 3 weeks, admitting to several episodes of incontinence at home. Pt also states that she is noticing increased SOB on exertion. Pt does report a history of anxiety and depression, and states these symptoms have been getting worse for several weeks now. Pt initially reports she has not been taking medications for her mood and anxiety since the closing of her psychiatric outpatient office - however, patient does have several recent prescriptions provided by her PCP. When questioned about this, patient continues to be unable to convincingly admit if she has been taking her psychiatric medications. Pt reports depressive symptoms of low mood, decreased energy, anhedonia, and hopelessness. She reports sleep and appetite have been unchanged. Pt does admit to seasonal variation to her mood, stating it is generally worse in the winter - also admittedly worse since she stopped taking her antidepressant medications per her report. Pt states, "I wasn't crying all the time when I was taking them." Pt does admit to significant anxiety related to management of her diabetes, but denies any additional situational stressors. She believes that most of her anxiety surrounds her blood sugar being too low, as she is concerned about a hypoglycemic event in which no one would be able to know she needed medical attention. Surprisingly, the patient states she has never had an event like this and cannot clearly understand why this is her largest concern. Education was provided to the patient regarding equal if not greater concern for blood sugars being excessively elevated. Pt states that she has had conversations with diabetic educators in the past. She does state she would be interest in a support group on diabetes if available in her area. Pt does admit to hopelessness related to her condition, often asking "Why me? Why was I born into this?" She denies SI or history of suicide attempts. Pt admits that she has found it difficult to find the motivation to care for things around her home, but states she is able to attend to her ADLs and is eating and showering. Pt is willing for referrals to outpatient psychiatric providers. She denies other needs or concerns from our service at this time. Past Psychiatric History Current Psychiatric Diagnosis: Unspecified anxiety, unspecified depression Outpatient Services: None presently. Pt had been referred to [facility] after her 02/2017 hospitalization - states her last visit there was prior to 2018. Previous Psych Admissions: [facility] - 02/2017 Do You Have Access To A Gun?: No History of Previous Suicide Attempt: No Past Medication Trials: Per combination of patient's reports and previous documentation: 1. Celexa 2. Ativan 3. Haloperidol 4. BuSpar 5. Abilify 6. Luvox 7. Klonopin Allergies Allergy/AdvReac Type Severity Reaction Status Date / Time albiglutide [From Tanzeum] AdvReac Unknown Verified 04/22/19 23:02 dulaglutide [From Trulicity] AdvReac Unknown Verified 04/22/19 23:02 Home Medications Home Medications Medication Instructions Recorded Confirmed Type aspirin 81 mg tablet,delayed 81 mg PO DAILY #90 tab 09/03/18 04/22/19 Rx release clonazepam 0.5 mg tablet 0.25 mg PO BID tab 10/07/18 04/22/19 History spironolactone 25 mg tablet 25 mg PO DAILY 10/07/18 04/22/19 History pen needle, diabetic 32 gauge x #200 ea 10/08/18 04/22/19 Rx 5/32" levothyroxine 88 mcg tablet 88 mcg PO DAILY #90 tab 12/02/18 04/22/19 Rx metformin 1,000 mg tablet 1,000 mg PO BID #180 tab 12/02/18 04/22/19 Rx metoprolol tartrate 25 mg tablet 25 mg PO BID #180 tab 12/02/18 04/22/19 Rx nystatin 100,000 unit/gram topical 1 appln TOP BID 14 Days #30 gm 12/30/18 04/22/19 Rx cream simvastatin 40 mg tablet 40 mg PO HS #30 tab 02/23/19 04/22/19 Rx Novolog Flexpen U-100 Insulin 100 30 units SQ .COMPLEX 30 Days #2 03/02/19 04/22/19 Rx unit/mL (3 mL) subcutaneous box NS escitalopram oxalate [Lexapro] 20 mg PO DAILY 04/22/19 04/22/19 History insulin glargine [Lantus Solostar 40 - 50 units SQ DAILY 04/22/19 04/22/19 History U-100 Insulin] lisinopril 40 mg PO DAILY 04/22/19 04/22/19 History Family History Per 02/2017 admission, patient reported mother had been treated for anxiety and depression Substance Abuse History Pt admits to smoking 1/2 pack of cigarettes daily. She denies alcohol use. Denies use of illicit substances. 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) Marital Status: ( in 1990, lasted 5 years) Number Of Children: None Beliefs That Will Affect Care: None History of Legal Problems: Denies Psychological Trauma History Comment: Denies Patient History Medical History Anxiety (Inactive) Depression (Inactive) Uncontrolled type 2 diabetes mellitus Surgical History History of cholecystectomy History of dental surgery History of tonsillectomy Family History Unknown Thyroid disorder Diabetes Father Diabetes Social History Preferred Language: Swedish Communication Ability: Effective Harp Regulator Required: No Beliefs That Will Affect Care: None Current Living Situation: Alone Feels Safe at Home: Yes Smoking Status: Current every day smoker Tobacco Type: cigarettes ; Cigarettes Per Day: 1/2 pack ; Second Hand Exposure: Yes ; Hx Alcohol Use: No Hx Substance Use: No Physical Exam Psychiatric: Orientation: alert, oriented x 3 and cooperative (and pleasant) Apperance: appropriately dressed and + disheveled Obese-appearing female, laying in bed in no acute distress. Pt is appropriately dressed, wearing a hospital gown. She is poorly groomed, hair appearing unkempt and greasy. Pt is mildly malodorous and does appear older than stated age. Eye Contact: good eye contact Motor Behavior: no abnormal motor movements (observed while laying in bed) Speech: normal rate/rhythm/volume of speech Affect: + blunted affect (appearing subdued, fatigued) and mood congruent with affect Mood: + depressed mood and + anxious mood "pretty down" Thought Process: goal directed thought process, clear/coherent thought process and thought association intact Thought Content: reality based without delusions and + hopelessness (related to management of her diabetes, difficulty coping with the diagnosis) Suicidal Thoughts: denies suicidal thoughts, denies suicidal plan and denies suicidal intent Homicidal Thoughts: denies homicidal thoughts Hallucinations: no auditory hallucinations and no visual hallucinations Cognition: attention grossly intact and language grossly intact Insight: + limited insight Judgement: + limited judgement Vital Signs (Past 24 Hours): Last Vital Signs Temp 36.8 C 04/23/19 07:35 Pulse 92 H 04/23/19 07:35 Resp 16 04/23/19 07:35 BP 132/81 04/23/19 07:35 Pulse Ox 93 04/23/19 07:35 Review of Systems Constitutional: reports fatigue Cardiovascular: denied Respiratory: denied Gastrointestinal: reports occasional difficulty with eating, feeling full quickly Neurological: denied Psychiatric: denies symptoms other than stated above Total of at least 10 systems reviewed, pertinent positives as above and in HPI. Results & Data (PSY) Medications Administered Acetaminophen (Tylenol) 650 mg PO Q4H PRN PRN Reason: Pain Stop: 05/23/19 08:40 Last Admin: 04/23/19 08:49 Dose: 650 mg Documented by: [id number] Aspirin (Ecotrin Ectab) 81 mg PO DAILY TONI Stop: 05/23/19 08:59 Last Admin: 04/23/19 08:41 Dose: 81 mg Documented by: [id number] Clonazepam (Klonopin) 0.25 mg PO BID TONI Stop: 05/23/19 08:59 Last Admin: 04/23/19 08:42 Dose: 0.25 mg Documented by: [id number] Enoxaparin Sodium (Lovenox) 40 mg SQ Q24H TONI Stop: 05/23/19 07:59 Last Admin: 04/23/19 09:14 Dose: 40 mg Documented by: [id number] Escitalopram Oxalate (Lexapro Tab) 20 mg PO DAILY TONI Stop: 05/23/19 08:59 Last Admin: 04/23/19 08:43 Dose: 20 mg Documented by: [id number] Insulin Aspart (Novolog Flexpen) 0 units SC ACHS TONI Stop: 05/23/19 07:29 Last Admin: 04/23/19 09:12 Dose: 16 units Documented by: [id number] Cosigned by: [id number] Insulin Glargine (Lantus Solostar Pen) 40 units SQ QAM [facility]; Protocol Stop: 05/23/19 08:59 Last Admin: 04/23/19 09:15 Dose: 40 units Documented by: [id number] Cosigned by: [id number] Levothyroxine Sodium (Synthroid) 88 mcg PO DAILYBB [facility] Stop: 05/23/19 06:29 Last Admin: 04/23/19 05:36 Dose: 88 mcg Documented by: [id number] Lisinopril (Zestril) 40 mg PO DAILY [facility] Stop: 05/23/19 08:59 Last Admin: 04/23/19 08:43 Dose: 40 mg Documented by: [id number] Metformin HCl (Glucophage) 1,000 mg PO BIDM [facility] Stop: 05/23/19 07:59 Last Admin: 04/23/19 08:40 Dose: 1,000 mg Documented by: [id number] Metoprolol Tartrate (Lopressor) 25 mg PO BID [facility] Stop: 05/23/19 08:59 Last Admin: 04/23/19 08:43 Dose: 25 mg Documented by: [id number] Nicotine (Nicoderm Cq) 14 mg TD QAM [facility] Stop: 05/23/19 08:59 Last Admin: 04/23/19 09:19 Dose: 14 mg Documented by: [id number] Nystatin (Nystatin) 1 appln EXT BID [facility] Stop: 05/23/19 08:59 Last Admin: 04/23/19 08:44 Dose: Not Given Documented by: [id number] Spironolactone (Aldactone) 25 mg PO DAILY [facility] Stop: 05/23/19 08:59 Last Admin: 04/23/19 08:41 Dose: 25 mg Documented by: [id number] Coding Level of Care Code 88902 [facility] Intl Hosp Care Lvl 3
--- NOTE | 2019-04-23 15:49 | Electrocardiogram Report ---
Test Reason : Blood Pressure : / mmHG Vent. Rate : 078 BPM Atrial Rate : 078 BPM P-R Int : 136 ms QRS Dur : 076 ms QT Int : 374 ms P-R-T Axes : 025 047 023 degrees QTc Int : 426 ms Poor data quality, interpretation may be adversely affected Sinus rhythm Premature atrial complexes Nonspecific ST and T wave abnormality Abnormal ECG When compared with ECG of 21-NOV-2016 09:26, No significant change was found Confirmed by King Paul ([id number]) on 04/23/2019 3:49:36 PM Referred By: REFERRED SELF Confirmed By:King Paul
[2019-04-23] MEDS: INSULIN GLARGINE SOLOSTAR 100 UNITS/ML 3 ML PEN SC SCH (18:11)
--- NOTE | 2019-04-23 18:28 | Hospitalist Progress Note ---
Date of Service April 23, 2019 Assessment & Plan (1) Diabetes mellitus, insulin dependent (IDDM), uncontrolled: Patient with a hemoglobin A1c of 13.3 Patient states that she takes Novolin as a basal rate in the morning and then NovoLog sliding scale with each meal She checks her sugars 5-6 times daily and notes that lately they have been between 300 and 400 Patient admits to weight gain and poor diet Anion gap is 9 Currently continue with Lantus and NovoLog sliding scale insulin Glycemic consult placed -appreciate pharmacy's help in management Continue to monitor serial labs (2) Hypomagnesemia: Repleted with magnesium sulfate and D5W K+ 3.6 Follow serial labs (3) SOB (shortness of breath): No hypoxia Multifactorial to morbid obesity, smoking, probable KEMI/OHS Advised the patient to follow-up with pulmonary office as an outpatient. Will need PFTs and polysomnography as an outpatient Advised patient to abstain from tobacco use completely (4) Anxiety: Patient has not been compliant with her outpatient medications Psychiatric consult is been placed for medical management We will defer management to the psychiatry team (5) Hyperlipidemia: Continue simvastatin (6) Hypertension: Morbidly obese Discussed weight loss, exercise and other modifiable risk factors Continue lisinopril and metoprolol tartrate (7) Obesity: Patient admits to increased weight gain this year Patient is unemployed and has no family Encouraged increase in activity and development of hobbies Follow with outpatient clinic (8) Tobacco abuse: Discussed need for complete tobacco abstinence Please refer to Dr. Bradley's addendum for further recommendations. Admission and Anticipated Discharge Date Admission Date: April 23, 2019 Subjective Attending: Dr. Lauro Bradley Is a 58-year-old female that was admitted yesterday and found to have poorly controlled diabetes with uncontrolled BSG's. Patient chief complaint for admission was multiple episodes of watery diarrhea daily for the last several weeks. Since admission, the patient has had one episode of bowel movement which was loose stool. She has had no watery diarrhea. Patient is seen sitting on the edge of the bed in no acute distress. Patient has poor body hygiene. Positive for halitosis. Patient denies any fever chills. No rigors. She denies sweats. She has no abdominal pain. She does have chronic pain in her back but says that this is controlled today. Aside from her uncontrolled sugar she has no acute complaints. Review of Systems Review of Systems: All systems reviewed & are unremarkable except as noted in HPI & below Physical Exam Physical Exam: GENERAL : No acute distress. General hygiene is unkempt EYES: No icterus, gaze conjugate. Pupils equal round reactive to light NOSE: No evidence of epistaxis. MOUTH: No lesions or candidiasis. Mucosa moist. Poor dental hygiene. Multiple dental caries. NECK: Supple. No appreciation of stridor LUNGS: CTA B/L, no wheezes, rales or rhonchi. No adventitious breath sounds HEART: Regular, rate controlled. ABDOMEN: Soft, NT, ND, BS Present. Abdomen is protuberant EXTREMITIES: No LE edema, pedal pulses intact and equal Laterally NEURO: A&OX3 Results & Data ([facility] [place]) Vital Signs (Past 12 Hours) Vital Signs Temp Pulse Resp BP Pulse Ox 04/23/19 16:04 36.8 C 72 20 106/70 94 04/23/19 07:35 36.8 C 92 H 16 132/81 93 Laboratory Results 04/22/19 22:17 04/22/19 22:17 Hemoglobin A1c is 13.3 Diagnostic Findings XR chest 1V portable HISTORY: 58 years-old Female emesis acute nausea with vomiting COMPARISON: Chest radiograph and CTA chest 11/21/2016 TECHNIQUE: Portable AP view of the chest FINDINGS: Increased hazy density of the lung bradley are likely secondary to summation density secondary to patient obesity. The cardiac silhouette is enlarged. No pneumothorax, pleural effusion or airspace consolidation typical for pneumonia. Bones appear grossly intact. IMPRESSION: Cardiomegaly without acute process. ACT 112: Negative or not required by law. The above report was generated using voice recognition software. It may contain grammatical, syntax or spelling errors. Results electronically sent 04/22/2019 10:12 PM to: Sachin Rm PA-C Electronically signed by: Tl Cooper M.D. 04/22/2019 10:12 PM US venous doppler LE BI CLINICAL HISTORY: 58 years-old Female presenting with calf pain. TECHNIQUE: Real-time grayscale and color and spectral Doppler ultrasound imaging of the veins of the bilateral lower extremities was performed. Compression and augmentation were also utilized. COMPARISON: None. FINDINGS: RIGHT: Common femoral vein: Patent. Greater saphenous vein (superficial): Patent. Deep femoral vein: Patent. Femoral vein: Patent. Popliteal vein: Patent. Calf veins: Limited visualization though grossly patent. LEFT: Common femoral vein: Patent. Greater saphenous vein (superficial): Patent. Deep femoral vein: Patent. Femoral vein: Patent. Popliteal vein: Patent. Calf veins: Limited visualization though grossly patent. Other: Subcutaneous edema noted bilaterally. IMPRESSION: No evidence of deep venous thrombosis. ACT 112: Negative or not required by law. Results electronically sent 04/23/2019 7:17 AM to: Kevin Kraus MD Electronically signed by: Eh Barahona M.D. 04/23/2019 7:17 AM PG Care Time/CCT Total # of Minutes Spent Total Time Spent with Patient: Total time spent is greater than 50% in coordination of care (as documented) at patient's floor/unit and/or counseling patient: 30 minutes Coding Level of Care Code 71164 Subseq Hosp Care Lvl 2 Diagnoses Diabetes mellitus, insulin dependent (IDDM), uncontrolled E11.65; Z79.4 Hypomagnesemia E83.42 SOB (shortness of breath) R06.02 Anxiety F41.9 Hyperlipidemia E78.5 Hypertension I10 Obesity E66.9 Tobacco abuse Z72.0
[2019-04-23] MEDS ORDERED: INSULIN GLARGINE SOLOSTAR 100 UNITS/ML 3 ML PEN SC SCH (21:00)
[2019-04-23] MEDS: SIMVASTATIN 40 MG TAB PO SCH (21:05)
[2019-04-23] MEDS: clonazePAM 0.5 MG TAB PO SCH (22:32)
[2019-04-24] MEDS: INSULIN ASPART 100 UNITS/ML 3 ML PEN SC SCH ×6 (01:28→21:03)
[2019-04-24] MEDS: LEVOTHYROXINE SODIUM 88 MCG TABLET PO SCH (06:25)
[2019-04-24] MEDS: lisinopriL 40 MG TAB PO SCH (08:38)
[2019-04-24] MEDS: SPIRONOLACTONE 25 MG TAB PO SCH (08:38)
[2019-04-24] MEDS: METOPROLOL TARTRATE 25 MG TAB PO SCH ×2 (08:39→21:11)
[2019-04-24] MEDS: ASPIRIN 81 MG ECTAB PO SCH (08:39)
[2019-04-24] MEDS: ESCITALOPRAM OXALATE 20 MG TAB PO SCH (08:39)
[2019-04-24] MEDS: NICOTINE 14 MG/24 HR PATCH TD SCH (08:40)
[2019-04-24] MEDS: NYSTATIN CR 15 GM TUBE EXT SCH ×2 (08:40→21:12)
[2019-04-24] MEDS: INSULIN GLARGINE SOLOSTAR 100 UNITS/ML 3 ML PEN SQ SCH (08:42)
[2019-04-24] MEDS: ENOXAPARIN INJ 40 MG/0.4 ML SYR SQ SCH (08:46)
[2019-04-24] MEDS: clonazePAM 0.5 MG TAB PO SCH ×2 (08:46→21:11)
--- NOTE | 2019-04-24 12:39 | Pharmacy Report ---
Pharmacy Glycemic Short Note 2 - Date of Service April 24, 2019 - Glycemic Short BSG Results (Last 24 hours): 04/23/19 04/23/19 04/23/19 14:09 16:50 19:32 POC Glucose 293 H 233 H 291 H 04/23/19 04/24/19 04/24/19 20:52 00:41 03:02 POC Glucose 233 H 169 H 168 H 04/24/19 04/24/19 04/24/19 06:29 07:54 11:50 POC Glucose 272 H 265 H 302 H* 04/24/19 11:51 POC Glucose 302 H* ASSESSMENT: * BSGs in the past 24 hrs have for the most part been poorly controlled. Likely due to endogenous insulin resistance and snacking bt meals. I did speak with nursing this afternoon, pt prefers to have her BSGs >200. If BSGs fall below this threshold, she requests extra accuchecks and snacks. * Lunch BSGs of 302mg/dL, see plan detailed below PLAN FOR INPATIENT GLYCEMIC CONTROL: * Hold outpatient oral diabetes medications * Basal insulin * Lantus 40u QAM plus lantus scale @HS, see MAR for further details * Bolus insulin - tighten * NovoLog per scale ACHS or Q6hrs while NPO * Goal Range: Low 110 mg/dL - High 140 mg/dL * Correction Factor: 12 mg/dL/unit * Nutritional / Prandial insulin per carb ratio of 1 unit per 4 grams CHO consumed
--- NOTE | 2019-04-24 14:29 | Hospitalist Progress Note ---
Date of Service April 24, 2019 Assessment & Plan (1) Diabetes mellitus, insulin dependent (IDDM), uncontrolled: Patient with a hemoglobin A1c of 13.3 Patient states that she takes Novolin as a basal rate in the morning and then NovoLog sliding scale with each meal Currently continue with Lantus and NovoLog sliding scale insulin Glycemic consult placed -appreciate pharmacy's help in management Continue to monitor serial labs Possible discharge tomorrow (2) Hypomagnesemia: Repleted with magnesium sulfate and D5W Follow serial labs (3) SOB (shortness of breath): No hypoxia Multifactorial to morbid obesity, smoking, probable KEMI/OHS Advised the patient to follow-up with pulmonary office as an outpatient. Will need PFTs and polysomnography as an outpatient Advised patient to abstain from tobacco use completely (4) Anxiety: Patient has not been compliant with her outpatient medications Psychiatric consult is been placed for medical management * Continue clonazepam and escitalopram We will defer management to the psychiatry team (5) Hyperlipidemia: Continue simvastatin (6) Hypertension: Morbidly obese Discussed weight loss, exercise and other modifiable risk factors Continue lisinopril and metoprolol tartrate Discussed increasing activity (7) Obesity: Patient admits to increased weight gain this year Patient is unemployed and has no family Encouraged increase in activity and development of hobbies Follow with outpatient clinic (8) Tobacco abuse: Discussed need for complete tobacco abstinence Please refer to Dr. Bradley's addendum for further recommendations. Admission and Anticipated Discharge Date Admission Date: April 23, 2019 Subjective Attending: Dr. Lauro Bradley This is a 58-year-old female admitted for multiple bouts of diarrhea and found to have poorly controlled diabetes mellitus type 2 with an elevated hemoglobin A1c of 13.3. She has been started on a regimen of insulin which is having moderate improvement of her schedule BSG's. She is now down in the 200s using a combination of Lantus and sliding scale insulin. Her metformin has been held. Patient denies any fever or chills. Patient has had 1 bowel movement which she describes as soft since admission. She has no other acute complaints. Review of Systems Review of Systems: All systems reviewed & are unremarkable except as noted in HPI & below Physical Exam Physical Exam: GENERAL : No acute distress EYES: No icterus, gaze conjugate NOSE: No evidence of epistaxis MOUTH: No lesions or candidiasis NECK: Supple LUNGS: CTA B/L, no wheezes, rales or rhonchi HEART: Regular, rate controlled ABDOMEN: Soft, NT, ND, BS Present EXTREMITIES: No LE edema, pedal pulses intact NEURO: A&OX3 Results & Data ([facility]) Vital Signs (Past 12 Hours) Vital Signs Temp Pulse Resp BP Pulse Ox 04/24/19 07:19 36.7 C 77 16 134/80 94 Laboratory Results 04/22/19 22:17 04/22/19 22:17 Diagnostic Findings US venous doppler LE BI CLINICAL HISTORY: 58 years-old Female presenting with calf pain. TECHNIQUE: Real-time grayscale and color and spectral Doppler ultrasound imaging of the veins of the bilateral lower extremities was performed. Compression and augmentation were also utilized. COMPARISON: None. FINDINGS: RIGHT: Common femoral vein: Patent. Greater saphenous vein (superficial): Patent. Deep femoral vein: Patent. Femoral vein: Patent. Popliteal vein: Patent. Calf veins: Limited visualization though grossly patent. LEFT: Common femoral vein: Patent. Greater saphenous vein (superficial): Patent. Deep femoral vein: Patent. Femoral vein: Patent. Popliteal vein: Patent. Calf veins: Limited visualization though grossly patent. Other: Subcutaneous edema noted bilaterally. IMPRESSION: No evidence of deep venous thrombosis. ACT 112: Negative or not required by law. Results electronically sent 04/23/2019 7:17 AM to: Kevin Kraus MD Electronically signed by: Eh Barahona M.D. 04/23/2019 7:17 AM PG Care Time/CCT Total # of Minutes Spent Total Time Spent with Patient: Total time spent is greater than 50% in coordination of care (as documented) at patient's floor/unit and/or counseling patient: 20 minutes Coding Level of Care Code 51621 Subseq Hosp Care Lvl 2 Diagnoses Diabetes mellitus, insulin dependent (IDDM), uncontrolled E11.65; Z79.4 Hypomagnesemia E83.42 SOB (shortness of breath) R06.02 Anxiety F41.9 Hyperlipidemia E78.5 Hypertension I10 Obesity E66.9 Tobacco abuse Z72.0
[2019-04-24 15:23] LABS: BUN Creatinine Ratio 12.8 (10-20); Calcium 9.3 mg/dl (8.5-10.1); Creatinine Clr Calc Pharmacy 69.1 ml/min; Est GFR (African American) 66.6; Est GFR (Non-African American) 57.4; Magnesium 1.8 mg/dl (1.8-2.4)
[2019-04-24] MEDS: INSULIN GLARGINE SOLOSTAR 100 UNITS/ML 3 ML PEN SC SCH (21:05)
[2019-04-24] MEDS: ACETAMINOPHEN 325 MG TAB PO PRN (21:10)
[2019-04-24] MEDS: SIMVASTATIN 40 MG TAB PO SCH (21:11)
[2019-04-25] MEDS: LEVOTHYROXINE SODIUM 88 MCG TABLET PO SCH (06:28)
[2019-04-25] MEDS: ACETAMINOPHEN 325 MG TAB PO PRN ×3 (06:37→20:32)
[2019-04-25 06:58] LABS: BUN Creatinine Ratio 18.2 (10-20); Calcium 8.8 mg/dl (8.5-10.1); Creatinine Clr Calc Pharmacy 76.3 ml/min; Est GFR (Non-African American) 64.7; Magnesium 1.9 mg/dl (1.8-2.4); Potassium 4.2 mmol/L (3.5-5.1)
[2019-04-25] MEDS: clonazePAM 0.5 MG TAB PO SCH ×2 (08:11→20:32)
[2019-04-25] MEDS: ENOXAPARIN INJ 40 MG/0.4 ML SYR SQ SCH (08:11)
[2019-04-25] MEDS: NICOTINE 14 MG/24 HR PATCH TD SCH (08:12)
[2019-04-25] MEDS: METOPROLOL TARTRATE 25 MG TAB PO SCH ×2 (08:12→20:33)
[2019-04-25] MEDS: SPIRONOLACTONE 25 MG TAB PO SCH (08:12)
[2019-04-25] MEDS: ESCITALOPRAM OXALATE 20 MG TAB PO SCH (08:13)
[2019-04-25] MEDS: lisinopriL 40 MG TAB PO SCH (08:13)
[2019-04-25] MEDS: ASPIRIN 81 MG ECTAB PO SCH (08:13)
[2019-04-25] MEDS: NYSTATIN CR 15 GM TUBE EXT SCH ×2 (08:13→20:33)
[2019-04-25] MEDS: INSULIN GLARGINE SOLOSTAR 100 UNITS/ML 3 ML PEN SQ SCH (08:59)
[2019-04-25] MEDS: INSULIN ASPART 100 UNITS/ML 3 ML PEN SC SCH ×4 (09:00→20:35)
[2019-04-25] MEDS ORDERED: INSULIN HUMAN REGULAR IV BOLUS 6 UNITS in SYRINGE 0 ML IV STA (13:34)
--- NOTE | 2019-04-25 16:11 | Hospitalist Progress Note ---
Date of Service April 25, 2019 Assessment & Plan (1) Diabetes mellitus, insulin dependent (IDDM), uncontrolled: Patient with a hemoglobin A1c of 13.3 Patient states that she takes Novolin as a basal rate in the morning and then NovoLog sliding scale with each meal Currently continue with Lantus and NovoLog sliding scale insulin Glycemic consult placed -appreciate pharmacy's help in management Continue to monitor serial labs Patient admits that she is afraid to have sugars go below 300 Will discuss with diabetes education tomorrow. Patient would benefit from ou tpatient following. (2) Hypomagnesemia: Repleted with magnesium sulfate and D5W Follow serial labs (3) SOB (shortness of breath): No hypoxia Multifactorial to morbid obesity, smoking, probable KEMI/OHS Advised the patient to follow-up with pulmonary office as an outpatient. Will need PFTs and polysomnography as an outpatient Advised patient to abstain from tobacco use completely (4) Anxiety: Patient has not been compliant with her outpatient medications Psychiatric consult is been placed for medical management * Continue clonazepam and escitalopram We will defer management to the psychiatry team and outpatient therapy (5) Hyperlipidemia: Continue simvastatin (6) Hypertension: Morbidly obese Discussed weight loss, exercise and other modifiable risk factors Continue lisinopril and metoprolol tartrate Discussed increasing activity (7) Obesity: Patient admits to increased weight gain this year Patient is unemployed and has no family Encouraged increase in activity and development of hobbies Follow with outpatient clinic Increase activity as tolerated (8) Tobacco abuse: Discussed need for complete tobacco abstinence Anticipate probable discharge home tomorrow. Admission and Anticipated Discharge Date Admission Date: April 23, 2019 Subjective Attending: Dr. Lauro Bradley Patient continues to experience fatigue and hyperglycemia. She has no cough or sputum production. She has no chest pain. She denies any fever or chills. She has no nausea or vomiting. She is reluctant to ambulate secondary to the report from nursing. She has no other acute complaints. Review of Systems Review of Systems: All systems reviewed & are unremarkable except as noted in HPI & below Physical Exam Physical Exam: GENERAL : No acute distress EYES: No icterus, gaze conjugate NOSE: No evidence of epistaxis MOUTH: No lesions or candidiasis NECK: Supple LUNGS: Faint bibasilar crackles. No rhonchi. No bronchospasm. Good inspiratory effort. HEART: Regular, rate controlled ABDOMEN: Soft, NT, ND, BS Present EXTREMITIES: No LE edema, pedal pulses intact NEURO: A&OX3 Results & Data ([facility]) Vital Signs (Past 12 Hours) Vital Signs Temp Pulse Resp BP Pulse Ox 04/25/19 15:33 36.6 C 74 18 115/80 98 04/25/19 07:24 36.6 C 73 18 104/62 96 Laboratory Results 04/22/19 22:17 04/25/19 05:46 Diagnostic Findings US venous doppler LE BI CLINICAL HISTORY: 58 years-old Female presenting with calf pain. TECHNIQUE: Real-time grayscale and color and spectral Doppler ultrasound imaging of the veins of the bilateral lower extremities was performed. Compression and augmentation were also utilized. COMPARISON: None. FINDINGS: RIGHT: Common femoral vein: Patent. Greater saphenous vein (superficial): Patent. Deep femoral vein: Patent. Femoral vein: Patent. Popliteal vein: Patent. Calf veins: Limited visualization though grossly patent. LEFT: Common femoral vein: Patent. Greater saphenous vein (superficial): Patent. Deep femoral vein: Patent. Femoral vein: Patent. Popliteal vein: Patent. Calf veins: Limited visualization though grossly patent. Other: Subcutaneous edema noted bilaterally. IMPRESSION: No evidence of deep venous thrombosis. ACT 112: Negative or not required by law. Results electronically sent 04/23/2019 7:17 AM to: Kevin Kraus MD Electronically signed by: Eh Barahona M.D. 04/23/2019 7:17 AM XR chest 1V portable HISTORY: 58 years-old Female emesis acute nausea with vomiting COMPARISON: Chest radiograph and CTA chest 11/21/2016 TECHNIQUE: Portable AP view of the chest FINDINGS: Increased hazy density of the lung bradley are likely secondary to summation dens ity secondary to patient obesity. The cardiac silhouette is enlarged. No pneumothorax, pleural effusion or airspace consolidation typical for pneumonia. Bones appear grossly intact. IMPRESSION: Cardiomegaly without acute process. ACT 112: Negative or not required by law. The above report was generated using voice recognition software. It may contain grammatical, syntax or spelling errors. Results electronically sent 04/22/2019 10:12 PM to: Sachin Rm PA-C Electronically signed by: Tl Cooper M.D. 04/22/2019 10:12 PM PG Care Time/CCT Total # of Minutes Spent Total Time Spent with Patient: Total time spent is greater than 50% in coordination of care (as documented) at patient's floor/unit and/or counseling patient:20 minutes Coding Level of Care Code 46305 Subseq Hosp Care Lvl 2 Diagnoses Diabetes mellitus, insulin dependent (IDDM), uncontrolled E11.65; Z79.4 Hypomagnesemia E83.42 SOB (shortness of breath) R06.02 Anxiety F41.9 Hyperlipidemia E78.5 Hypertension I10 Obesity E66.9 Tobacco abuse Z72.0
[2019-04-25] MEDS: SIMVASTATIN 40 MG TAB PO SCH (20:32)
[2019-04-25] MEDS: INSULIN GLARGINE SOLOSTAR 100 UNITS/ML 3 ML PEN SC SCH (20:34)
[2019-04-26] MEDS: LEVOTHYROXINE SODIUM 88 MCG TABLET PO SCH (06:16)
[2019-04-26] MEDS: lisinopriL 40 MG TAB PO SCH (09:06)
[2019-04-26] MEDS: METOPROLOL TARTRATE 25 MG TAB PO SCH ×2 (09:06→21:04)
[2019-04-26] MEDS: ESCITALOPRAM OXALATE 20 MG TAB PO SCH (09:06)
[2019-04-26] MEDS: SPIRONOLACTONE 25 MG TAB PO SCH (09:06)
[2019-04-26] MEDS: ASPIRIN 81 MG ECTAB PO SCH (09:07)
[2019-04-26] MEDS: ENOXAPARIN INJ 40 MG/0.4 ML SYR SQ SCH (09:07)
[2019-04-26] MEDS: INSULIN ASPART 100 UNITS/ML 3 ML PEN SC SCH ×4 (09:09→21:05)
[2019-04-26] MEDS: NICOTINE 14 MG/24 HR PATCH TD SCH (09:10)
[2019-04-26] MEDS: INSULIN GLARGINE SOLOSTAR 100 UNITS/ML 3 ML PEN SQ SCH (09:11)
[2019-04-26] MEDS: clonazePAM 0.5 MG TAB PO SCH ×2 (09:36→21:03)
--- NOTE | 2019-04-26 10:25 | Pharmacy Report ---
Glycemic Control Progress Note - Date of Service April 26, 2019 - Scope Glycemic Pharmacist consulted for glycemic control to write orders per [facility] inpatient glycemic control protocol. - Objective Accuchecks BSG(last 24 hours):: 04/25/19 04/25/19 04/25/19 11:40 11:41 17:14 POC Glucose 305 H* 322 H* 155 H 04/25/19 04/25/19 04/26/19 20:09 23:54 08:05 POC Glucose 194 H 131 H 225 H - Recent Pertinent Medications The patient is currently receiving: * Basal insulin: Lantus 40 units every 12 hours * Correctional Insulin: Novolog Correction per scale ACHS Goal Range: Low 110 mg/dL - High 140 mg/dL Correction Factor: 12 mg/dL/unit * Prandial insulin: Per carb ratio of 1 unit per 4 grams CHO consumed - Outpatient Anti-Diabetic Meds Lantus 40-50 units daily Novolog 20-30 units with meals metformin 1 gm PO BID - Assessment & Plan ASSESSMENT: * See progress note from 04/23/2019 for more background info, in short: * Pt receiving SQ basal bolus insulin regimen for hyperglycemia secondary to baseline DM (outpatient regimen on hold). * Patient is currently receiving an average of 171 units of insulin per day * 80 units of basal insulin * 91 units of prandial/correctional insulin * BSGs ranging 155 - 322 mg/dl over the past 24hrs * Changes needed to insulin regimen: * AM Fasting BSG = 225 mg/dl. This is around goal for patient based on inpatient targets and co-morbidities. Patient's fastings are trending down by about 20 mg/dL each day so continued Lantus 40 units BID. * Post-prandial BSGs are elevated yesterday. Per report, patient does not like BSGs below 200 mg/dL. Will try to stabilize by tightening CR slightly. By stopping sharp increases in BSGs, should decrease force of CF. Up goal range as well. * Total daily dose = ~170-180 units. PLAN FOR INPATIENT GLYCEMIC CONTROL: * Continuing Lantus 40 units SQ BID * Continuing correction factor of 12 mg/dl/unit * Changing carb ratio to 1 unit per 3 grams CHO consumed * Changing goal range to Low 120 mg/dL - High 160 mg/dL RECOMMENDATIONS FOR DISCHARGE: * Lantus 40 units SQ BID * Novolog 20 units with meals plus 1 unit for every 20 mg/dL over 150 mg/dL. * Please note that the plan above was derived based on current level of insulin resistance and hospital stress. These recommendations are appropriate for inpatient admission only. Plan of care upon discharge will need to be reassessed to avoid potential outpatient hypo/hyperglycemia. Thank you.
[2019-04-26] MEDS: NYSTATIN CR 15 GM TUBE EXT SCH ×2 (12:04→21:04)
[2019-04-26] MEDS: ACETAMINOPHEN 325 MG TAB PO PRN ×2 (15:58→21:07)
--- NOTE | 2019-04-26 17:27 | Hospitalist Progress Note ---
Date of Service April 26, 2019 Assessment & Plan (1) Diabetes mellitus, insulin dependent (IDDM), uncontrolled: Patient with a hemoglobin A1c of 13.3 Patient states that she takes Novolin as a basal rate in the morning and then NovoLog sliding scale with each meal Current regimen includes: * Lantus 40 units every morning * NovoLog sliding scale insulin * Home metformin has been held Glycemic consult placed -appreciate pharmacy's help in management Continue to monitor serial labs Patient admits that she is afraid to have sugars go below 300 Discussed with diabetes education tomorrow. Patient would benefit from outpatient diabetic education and does have insurance to cover it. Patient states she would be willing to go (2) Hypomagnesemia: Repleted with magnesium sulfate and D5W Follow serial labs (3) SOB (shortness of breath): No hypoxia Multifactorial to morbid obesity, smoking, probable KEMI/OHS Advised the patient to follow-up with pulmonary office as an outpatient. Will need PFTs and polysomnography as an outpatient Advised patient to abstain from tobacco use completely (4) Anxiety: Patient has not been compliant with her outpatient medications Psychiatric consult is been placed for medical management * Continue clonazepam and escitalopram We will defer management to the psychiatry team and outpatient therapy (5) Hyperlipidemia: Continue simvastatin (6) Hypertension: Morbidly obese Discussed weight loss, exercise and other modifiable risk factors Continue lisinopril and metoprolol tartrate Discussed increasing activity (7) Obesity: Patient admits to increased weight gain this year Patient is unemployed and has no family Encouraged increase in activity and development of hobbies Follow with outpatient clinic Increase activity as tolerated (8) Tobacco abuse: Discussed need for complete tobacco abstinence Discharge home with NicoDerm prescription Patient feels confident that she can quit smoking as she is gone several days here at the hospital without urge Admission and Anticipated Discharge Date Admission Date: April 23, 2019 Anticipated date of discharge: 04/27/19 Subjective Attending: Dr. Lauro Bradley Patient states that she is fatigued more than usual today. Over the past 24 hours, we have been able to maintain the patient's sugars below 200 mg/[place]. It is possible the patient is feeling some hypoglycemic type feelings that she is usually well above 300 at home. She denies any fever chills. She has no chest pain or tightness. She has no nausea or vomiting. She has no urged to smoke. She has no acute complaints other than fatigue. Review of Systems Review of Systems: All systems reviewed & are unremarkable except as noted in HPI & below Physical Exam Physical Exam: GENERAL : No acute distress EYES: No icterus, gaze conjugate NOSE: No evidence of epistaxis MOUTH: No lesions or candidiasis NECK: Supple LUNGS: CTA B/L, no wheezes, rales or rhonchi HEART: Regular, rate controlled ABDOMEN: Soft, NT, ND, BS Present EXTREMITIES: No LE edema, pedal pulses intact NEURO: A&OX3 Results & Data ([facility]) Vital Signs (Past 12 Hours) Vital Signs Temp Pulse Resp BP Pulse Ox 04/26/19 15:01 36.8 C 69 16 103/68 97 04/26/19 07:30 36.8 C 71 16 111/69 97 Laboratory Results 04/22/19 22:17 04/25/19 05:46 Diagnostic Findings No further diagnostic imaging PG Care Time/CCT Total # of Minutes Spent Total Time Spent with Patient: Total time spent is greater than 50% in coordination of care (as documented) at patient's floor/unit and/or counseling patient: 30 minutes including discussion on smoking cessation and better diabetic control Coding Level of Care Code 99559 Subseq Hosp Care Lvl 2 Diagnoses Diabetes mellitus, insulin dependent (IDDM), uncontrolled E11.65; Z79.4 Hypomagnesemia E83.42 SOB (shortness of breath) R06.02 Anxiety F41.9 Hyperlipidemia E78.5 Hypertension I10 Obesity E66.9 Tobacco abuse Z72.0
[2019-04-26] MEDS ORDERED: INSULIN GLARGINE SOLOSTAR 100 UNITS/ML 3 ML PEN SC SCH (21:00)
[2019-04-26] MEDS: SIMVASTATIN 40 MG TAB PO SCH (21:03)
[2019-04-27] MEDS: LEVOTHYROXINE SODIUM 88 MCG TABLET PO SCH (06:17)
[2019-04-27] MEDS: NICOTINE 14 MG/24 HR PATCH TD SCH (08:31)
[2019-04-27] MEDS: ENOXAPARIN INJ 40 MG/0.4 ML SYR SQ SCH (08:31)
[2019-04-27] MEDS: SPIRONOLACTONE 25 MG TAB PO SCH (08:32)
[2019-04-27] MEDS: lisinopriL 40 MG TAB PO SCH (08:32)
[2019-04-27] MEDS: ESCITALOPRAM OXALATE 20 MG TAB PO SCH (08:32)
[2019-04-27] MEDS: METOPROLOL TARTRATE 25 MG TAB PO SCH (08:33)
[2019-04-27] MEDS: ASPIRIN 81 MG ECTAB PO SCH (08:33)
[2019-04-27] MEDS: NYSTATIN CR 15 GM TUBE EXT SCH (08:35)
[2019-04-27] MEDS: INSULIN ASPART 100 UNITS/ML 3 ML PEN SC SCH ×3 (08:45→17:38)
[2019-04-27] MEDS: clonazePAM 0.5 MG TAB PO SCH (08:51)
[2019-04-27] MEDS ORDERED: INSULIN GLARGINE SOLOSTAR 100 UNITS/ML 3 ML PEN SQ SCH (09:00)
--- NOTE | 2019-04-27 11:18 | Pharmacy Report ---
Pharmacy Glycemic Short Note 2 - Date of Service April 27, 2019 - Glycemic Short BSG Results (Last 24 hours): 04/26/19 04/26/19 04/26/19 12:08 16:40 19:54 POC Glucose 233 H 189 H 213 H 04/27/19 08:11 POC Glucose 224 H ASSESSMENT: 04/26: * Patient received total of 164 units of insulin yesterday, of which 80 were basal insulin * Fasting BSG above range 224 mg/dl - will titrate slightly ; per previous reports patient feels hypoglycemic s/s when BSG less than 200 mg/dL * Continue same CF/CR PLAN FOR INPATIENT GLYCEMIC CONTROL: * Hold outpatient oral diabetes medications * Basal insulin * Lantus 40-45 units BID dependent on BSG scale * Bolus insulin - continue same * NovoLog per scale ACHS or Q6hrs while NPO * Goal Range: Low 110 mg/dL - High 140 mg/dL * Correction Factor: 12 mg/dL/unit * Nutritional / Prandial insulin per carb ratio of 1 unit per 3 grams CHO consumed
[2019-04-27] MEDS ORDERED: INSULIN HUMAN REGULAR PER UNIT 6 UNITS in SYRINGE 5.94 ML IV ONE (14:30)
[2019-04-27] MEDS: ACETAMINOPHEN 325 MG TAB PO PRN (15:20)
--- NOTE | 2019-04-27 17:40 | Discharge Summary ---
Date of Service April 27, 2019 Admission HPI Per Admitting Provider Patient is a morbidly be obese 58-year-old female with a past medical history of uncontrolled type 2 diabetes on insulin, arthralgias of multiple sites, chronic kidney disease, hyperlipidemia, hypertension long-term NSAID use, microalbuminuria, psoriasis, anxiety, current smoker who presented at her family's insistence for evaluation of diarrhea that is been ongoing for 3 weeks and self-neglect subsequently diagnosed with hyperglycemia and noted to have been off her psychiatric medications for a number of weeks. In the emergency department routine labs were obtained and notable for a white blood cell count of 10.59 a hemoglobin of 12.4 platelet count of 238 sodium of 136 potassium 3.6 glucose 318 creatinine 1.11, magnesium 1.4, UA was clean, UDS was clean, Chest x-ray demonstrated cardiomegaly without acute process.Given her hyperglycemia, hypomagnesemia, and need for psychiatric care the hospital service was consulted for admission Upon my arrival the patient was lying in bed in no acute distress. She reports [facility] Approximately 3 weeks ago she began to experience diarrhea that occurred approximately 4 times a day, usually associated with eating. She has tried antidiarrheal medication with no success. There is no associated nausea and vomiting no associated fevers and chills, chest pressure, chest pain, shortness of breath, sensory changes, motor changes or any other significant associated symptoms with the exception of patient reporting being increasingly sweaty. She reports that she has not had these symptoms before, they are distressing to her on a level of 5 out of 10. Per report from the family the patient has been exhibiting significant symptoms of self-neglect her house is been in shambles, she is not caring for self, not eating, not taking her medications. I did have the opportunity discussed with the family directly but this is the sign and I received from the PA on duty. The patient will be admitted to [facility] for treatment of her hypomagnesemia, and hyperglycemia as well as consultation by psychiatry. Primary Care Provider: Prashant Pina MD Admission Exam Per Admitting Provider Physical Exam: General: Morbidly obese female lying in bed in no acute distress HEENT: Normocephalic atraumatic Neck: Trachea midline, normal to visual inspection, no JVD Cardiac: Exam limited by body habitus however regular rate and rhythm, no murmurs rubs or gallops, normal S1, normal S2, did not appreciate significant pedal edema, calf tenderness bilaterally Respiratory: Exam limited by body habitus otherwise diminished breath sounds with clear to auscultation bilaterally symmetrical chest expansion no increased work of breathing GI: Bowel sounds present, distended, nontender MSK: Moves all extremities Skin: Numerous scabs throughout her lower extremities Neuro: Alert and oriented x4 Psych: A: Disheveled appearance, had a body odor, not well-groomed B: Appropriate, cooperative with the exam S: A bit slow to answer at times, spacey M: "I feel fine " A: Congruent T: Tangential Principal Diagnosis Diarrahea Poorly controlled Type II Diabetes Discharge Exam GENERAL : No acute distress. Pleasant EYES: No icterus, gaze conjugate. PERRL NOSE: No evidence of epistaxis MOUTH: No lesions or candidiasis. Mucosa NECK: Supple LUNGS: CTA B/L, no wheezes, rales or rhonchi HEART: Regular, rate controlled ABDOMEN: Soft, NT, ND, BS Present. Protuberant EXTREMITIES: No LE edema, pedal pulses intact NEURO: A&OX3 Discharge Data Allergies Allergy/AdvReac Type Severity Reaction Status Date / Time albiglutide [From Tanzeum] AdvReac Unknown Verified 04/22/19 23:02 dulaglutide [From Trulicity] AdvReac Unknown Verified 04/22/19 23:02 Consultations 04/23/19 01:32 ED Decision to Admit Stat 04/23/19 04:20 Consult Psychiatry Stat Ordered Studies 04/23/19 03:07 US venous doppler LE BI Urgent CXR Hospital Course (1) Diabetes mellitus, insulin dependent (IDDM), uncontrolled: Patient with a hemoglobin A1c of 13.3 Change regimen to: * Lantus 45 units twice daily * NovoLog Flexpen 30 units three times daily with meals * Metformin 1000mg once daily Glycemic consult placed -appreciate pharmacy's help in management Patient to follow with endocrinology * Appt with Cj Logan PA-C 05/21/2019 at 11:00 am Patient admits that she is afraid to have sugars go below 300 Patient set up with walk in psychiatry clinic to cope with anxiety of sugars dropping below 300 (2) Hypomagnesemia: Repleted with magnesium sulfate and D5W (3) SOB (shortness of breath): Resolved No hypoxia Multifactorial to morbid obesity, smoking, probable KEMI/OHS Advised the patient to follow-up with pulmonary office as an outpatient. Will need PFTs and polysomnography as an outpatient Advised patient to abstain from tobacco use completely (4) Anxiety: Patient has not been compliant with her outpatient medications Psychiatric consult is been placed for medical management * Continue clonazepam and escitalopram We will defer management to the psychiatry team and outpatient therapy Chart copied and sent to [facility] Services in [facility] Patient aware that this is a walk in clinic and that a scheduled appt is not needed Patient aware that she will need to go to clinic to get benzodiazepines refilled (5) Hyperlipidemia: Continue simvastatin (6) Hypertension: Morbidly obese Discussed weight loss, exercise and other modifiable risk factors Continue lisinopril and metoprolol tartrate Discussed increasing activity (7) Obesity: Patient admits to increased weight gain this year Patient is unemployed and has no family Encouraged increase in activity and development of hobbies Follow with outpatient clinic Increase activity as tolerated at home Try to spend less time watching TV (8) Tobacco abuse: Discussed need for complete tobacco abstinence Discharged home with 7mg NicoDerm prescription X 14 patches. Advised to remove at night Patient feels confident that she can quit smoking as she is gone several days here at the hospital without urge Total Time Total Time Spent Total Time Spent (In Minutes): 80 minutes Total Time Includes: Examination of the Patient, Discharge Planning, Medication Reconciliation, Communication With Other Providers and Other (Discussion with psychiatry. Discussion with diabetic education. Discussion with other providers.) Discharge Plan Discharge Items Patient Disposition: Home - Self-Care Reason For Visit: HYPERGLYCEMIA Discharge Diagnosis: Poorly controlled diabetes mellitus type 2 insulin-dependent Condition on Discharge: Good Health Concerns: Better control of diabetes Smoking cessation Obesity Goals: Quit smoking completely Work on weight loss Follow-up with diabetic and psychiatric appointments Activity: Resume your previous activity Lifting: Gradually increase as tolerated Bathing: No limitations Sexual Activity: When tolerated Exercise/Sports: Gradually increase as tolerated Driving/Machine Use: Resume 1 day after discharge Weightbearing: Full weightbearing Non-emergency contact: Primary Care Provider Call non-emergency contact if: you have any medication questions and your symptoms worsen Follow-up/Referrals: Prashant Pina III, MD [Primary Care Provider] - (Follow-up within 7 days of discharge) Diet: Carb Consistent or DM2 and Heart Healthy Diet Comment: Avoid soda, sweets, chocolate. Moderate carbohydrates Addtl Attending Provider Instructions: None Pending Studies at Discharge: No Stand-Alone Forms: My [facility] [employer], Smoking Cessation Medications and DC Order Prescriptions: New nicotine 7 mg/24 hr patch 24 hour 1 patch TD DAILY Qty: 14 RF: 0 insulin aspart U-100 [Novolog Flexpen U-100 Insulin] 100 unit/mL (3 mL) insulin pen 30 units SQ .COMPLEX 30 Days Qty: 2 RF: 0 (DME) pen needle, diabetic [BD Ultra-Fine Cary Pen Needle] 32 gauge x 5/32" needle See Dose Instructions .ROUTE .MEDSUPPLY Qty: 200 RF: 11 Lantus Solostar U-100 Insulin 100 unit/mL (3 mL) insulin pen 45 units SQ BID Qty: 15 RF: 2 Continued levothyroxine 88 mcg tablet 88 mcg PO DAILY Qty: 90 RF: 3 metoprolol tartrate 25 mg tablet 25 mg PO BID Qty: 180 RF: 1 nystatin 100,000 unit/gram cream 1 appln TOP BID 14 Days Qty: 30 RF: 5 simvastatin 40 mg tablet 40 mg PO HS Qty: 30 RF: 5 aspirin 81 mg tablet,delayed release (DR/EC) 81 mg PO DAILY Qty: 90 RF: 3 spironolactone [Aldactone] 25 mg tablet 25 mg PO DAILY RF: 0 clonazepam [Klonopin] 0.5 mg tablet 0.25 mg PO BID RF: 0 lisinopril 40 mg tablet 40 mg PO DAILY RF: 0 escitalopram oxalate [Lexapro] 20 mg tablet 20 mg PO DAILY RF: 0 Changed metformin 1,000 mg tablet 1,000 mg PO DAILY Qty: 90 RF: 1 Discontinued Lantus Solostar U-100 Insulin 100 unit/mL (3 mL) insulin pen 40 - 50 units SQ DAILY RF: 0 Discharge Orders: Discharge Order (Routine); Ordered 04/27/19 Ordered By: Oralia Richardson/Other Patient Handouts: Diabetes Long-Term Complications, Hyperglycemia, Diabetes Healthy Meals, Understanding Carbohydrates, Diabetes Exercise Benefits, Diabetes Manage A1C Test Admission Data Admit Date/Time: 04/23/19 03:18 Attending Provider: Oralia Nieves Admit Provider: Laurent Gaytan Primary Care Provider: Prashant Pina III Other Providers: Zeny Galvin ; Lauro Bradley Other Interventions: Discharge Summary Assessment (RN) Last Done: 04/27/19 17:24 PSY Interdisciplinary Discharge Planning Last Done: 04/23/19 17:26 DC Date/Time DO NOT enter until pt leaves facility: 04/27/19 19:43 Supervising Physician Co-Signing Physician Notes PA Supervision Note: I personally saw and examined the patient. I verified all real points and agree with MICKI Mack with the following exceptions and/or additions: Feeling better. Glucose better controlled but she continues to have a fear of glucose going too low. I reassured her that her glucose isn't even close to going too low even after doubling her usual basal dose of Lantus here. She also reports at home she typically drinks 5 cans of regular Pepsi daily and eats a lot of chocolate-neither of which she is doing while inpatient. She also admits that her diarrhea has completely resolved since admission--> this may be due to either/or not taking metformin and/or better diet or both. VSS Morbidly obese RRR, no mgr CTAB no wcr Abd +BS soft NT ND Ext no edema Stable for dc to home on improved insulin regimen, can resume half dose of metformin and stop altogether or change to XR version if diarrhea starts back up again Coding Level of Care Code D/C Day Management >30 mins Diagnoses Diabetes mellitus, insulin dependent (IDDM), uncontrolled E11.65; Z79.4 Hypomagnesemia E83.42 SOB (shortness of breath) R06.02 Anxiety F41.9 Hyperlipidemia E78.5 Hypertension I10 Obesity E66.9 Tobacco abuse Z72.0 Time Spent (min) 80
[2019-04-27] MEDS ORDERED: INSULIN GLARGINE SOLOSTAR 100 UNITS/ML 3 ML PEN SC SCH (21:00)
[2019-04-28] MEDS ORDERED: INSULIN ASPART 100 UNITS/ML 3 ML PEN SC SCH
== END 2019-04-27 19:43 | disposition home or self-care (01) ==
LOC: ED 21:32 → INTOOBSV 04-23 03:18 → 4W 04-23 03:18 → SUATTDRO 04-23 03:18 → 4W 04-23 03:45

== ENCOUNTER 2020-10-22 07:46 | Inpatient (IN) ==
[2020-10-22] MEDS ORDERED: ASPIRIN CHEW 324 MG PO STA (08:09)
[2020-10-22] MEDS: NITROGLYCERIN SL 0.4 MG/TAB TAB SL PRN ×2 (08:19→08:27)
--- NOTE | 2020-10-22 08:20 | Emergency Department Note ---
Impression & Plan Acute non-ST elevation myocardial infarction (NSTEMI) ED Provider Note CHIEF COMPLAINT: Chest pain HISTORY OF PRESENTING ILLNESS: This is a 60-year-old female who presents to the emergency department by private vehicle with complaint of chest pain that started yesterday and has been persistent, constant, she describes it like a pressure and tightness, it is in the middle and right side of her chest and radiates across and into her left arm, and she currently rates the pain 7/10. The pain came on gradually and is worse with certain positions and exertion, but does not feel improved at rest. Patient states that she took ibuprofen last night, but this did not really help her pain and she did not sleep well because of the pain. She has had some associated nausea but no vomiting. She denies any associated shortness of breath, dizziness, syncope, palpitations, diaphoresis. She denies any numbness, tingling, weakness of extremities. She does note that she has been having some cramps in her legs, but denies any persistent leg pain or swelling. She denies any history of blood clots. She has a history of poorly controlled type 2 diabetes, hypertension, hyperlipidemia, and she is a smoker. She denies family history of heart problems. She denies any history of similar chest pain in the past. REVIEW OF SYSTEMS: A complete 10 point review of systems was reviewed with the p atient with pertinent positives and negatives as per history of present illness. All else were negative. PAST MEDICAL HISTORY: Hypertension, hyperlipidemia, type 2 diabetes, hypothyroidism, obesity, psoriasis, depression, OCD, anxiety, tobacco abuse SOCIAL HISTORY: Lives at home, she is a current everyday smoker ALLERGIES: Reviewed in chart and with the patient PHYSICAL EXAM: CONSTITUTIONAL: Pleasant and cooperative. Nontoxic-appearing and in no acute distress. Well appearing and well nourished. HEENT: Normocephalic, atraumatic. PERRL, EOMI. NECK: Supple, full active range of motion without discomfort. No JVD. RESPIRATORY: Clear to auscultation bilaterally with no wheezing, crackles, rhonchi or stridor. Equal expansion bilaterally. CARDIOVASCULAR: Regular rate and rhythm with no murmurs, rubs or gallops. Normal peripheral perfusion, 2+ distal pulses in all 4 extremities. No pitting edema. GASTROINTESTINAL: Soft, nontender, nondistended. Obese abdomen. No palpable masses or HSM. Bowel sounds present in all quadrants. No CVA tenderness bilaterally. MUSCULOSKELETAL: Full range of motion of all joints without discomfort. Tenderness to palpation in the left posterior calf. Negative Homans' sign. Tenderness to palpation of the left posterior distal wrist with mild bruising and swelling noted at the site of a previous IV insertion. No erythema or warmth. INTEGUMENTARY: No rash or other significant dermatologic conditions noted. NEUROLOGIC: Alert and oriented X 4 with normal affect. Normal strength and sensation in all 4 extremities. Normal speech. Normal gait observed. ED COURSE AND MEDICAL DECISION MAKING: CC: Patient presenting with complaint of chest pain DIFFERENTIAL DIAGNOSIS: Includes, but not limited to acute coronary syndrome, pulmonary embolism, aortic dissection, pneumothorax, pericarditis, myocarditis, anxiety, musculoskeletal pain, GERD, costochondritis, pneumonia, among others. INTERPRETATION OF LABS: Leukocytosis (appears consistent with previous labs), no anemia, normal platelets, hyperglycemia with pseudohyponatremia, no other sig nificant electrolyte abnormalities, mildly elevated BUN and creatinine (consistent with baseline), mildly elevated alk phos, otherwise normal liver enzymes and lipase. Troponin is elevated. D-dimer is mildly elevated. Coagulation factors otherwise within normal limits. EKG INTERPRETATION: 0755: Indication was chest pain. EKG shows normal sinus rhythm with a rate of 88 bpm, no ST elevation or depression, no ectopy, no significant change when compared to previous EKG from 10/16/2020 by my interpretation. Repeat at 0917: Indication was persistent chest pain. EKG shows normal sinus rhythm with a rate of 79 bpm and no significant change when compared to previous EKG from earlier today. MEDICATION RECONCILIATION: I attest that I have personally reviewed the patient's current medication list. INITIAL VITAL SIGNS REVIEW: I reviewed the patient's initial vital signs and interpret them as follows: T: Afebrile; BP: Hypertensive; HR: Within normal limits; RR: Within normal limits; Pulse Ox: Within normal limits on room air. MDM SUMMARY: Patient was evaluated at bedside, history and physical exam performed. Patient is alert and oriented, in no acute distress, resting calmly in stretcher. She is afebrile and nontoxic-appearing, but is noted to be hypertensive. Patient complains of constant chest pain since yesterday, in the right side of her chest and radiating into her left arm and back. Cardiac monitoring: An order was placed for continuous cardiac monitoring. The monitor shows a rate of 90 bpm with normal sinus rhythm. An EKG was reviewed at bedside also noting normal sinus rhythm with no acute ischemic changes. Heart score 4, moderate risk. Orders were placed for labs including troponin and D-dimer, 324 mg p.o. aspirin and sublingual nitroglycerin to treat chest pain, chest x-ray. Patient discussed with Dr. Sanderson, who also evaluated the patient and agrees with my assessment, plan, and disposition. Patient reports minimal improvement in her chest pain after receiving 2 sublingual nitroglycerin. She was then ordered for 50 mcg of IV fentanyl to brock at her chest pain. Labs and imaging reviewed as above, leukocytosis appears unchanged from previous labs. Hyperglycemia noted, the patient was given 10 units SC regular insulin. Labs are otherwise fairly unremarkable. Chest x-ray was clear and unchanged from baseline. Troponin was elevated at 1.36, concerning for a NSTEMI. Low dose heparin and bolus was ordered. D-dimer was also mildly elevated, however I do feel the patient's symptoms and presentation are more consistent with ACS. Patient reassessed multiple times throughout ED stay, she has remained hemodynamically stable, hypertension is improved after management of her pain and she does note some improvement in her chest pain, though she is not fully chest pain-free. I spoke on the phone with Dr. Alberto, [facility] Hospitalist, who agrees to evaluate the patient for admission. The patient was updated on all results and plan for admission, all questions were answered to the best of my ability and the patient was agreeable to this plan. The patient was additionally treated with 1 mg IV Ativan and 20 mg IV Pepcid. A repeat troponin is 1.870 and the patient continues to complain of some chest pain. The patient was also evaluated by cardiology, given her persistent chest pain, she was taken to the Delivery Room Supervisor for further evaluation. The patient was stable at time of departure from the ED to the Delivery Room Supervisor. CRITICAL CARE NOTE: I have personally spent greater than 35 minutes of critical care time in the direct management of this patient. This includes bedside care, interpretation of diagnostic studies, and testing, discussion with consultants, patient, and family members, and other required patient management activities. This 35 minutes is in excess of all separately billable procedures. The chart was completed utilizing Dragon Speech voice recognition software. Grammatical errors, random word insertions, pronoun errors, and incomplete sentences are an occasional consequence of this system due to software li mitations, ambient noise, and hardware issues. Any formal questions or concerns about the content, text, or information contained within the body of this dictation should be directly addressed to the nurse practitioner for clarification. Past Med/Surg History Medical History (Updated 10/22/20 @ 12:14 by Efra Shin MD) Anxiety Arthralgia of multiple sites Depression Diabetes type 2, uncontrolled Dyslipidemia Hypertension Hypokalemia Hyponatremia Hypothyroidism Obesity OCD (obsessive compulsive disorder) Psoriasis Renal insufficiency Serum gamma globulin increased Tobacco abuse Vulvitis Surgical History History of cholecystectomy History of dental surgery History of tonsillectomy Family History (Updated 07/27/20 @ 14:01 by Vale Johns MA) Unknown Thyroid disorder Diabetes Father Diabetes Denies family history of Ovarian cancer Prostate cancer Breast cancer Colorectal cancer Uterine cancer Social History (Updated 07/27/20 @ 14:01 by Vale Johns MA) Smoking Status: Current every day smoker Tobacco Type: Cigarettes Cigarettes Per Day: 15; Second Hand Exposure: Yes; Hx Alcohol Use: No Hx Substance Use: No Preferred Language: Greenlandic Communication Ability: Effective Master Electrician Required: No Beliefs That Will Affect Care: None Current Living Situation: Alone Other Information That Helps Us Care for You: No Feels Safe at Home: Yes Safety Concerns: Feels Safe At This Time Physical Activity Frequency: Does not Exercise Seatbelt Use: always Assistive Devices: None Allergies Allergies Allergy/AdvReac Type Severity Reaction Status Date / Time albiglutide [From Tanzeum] AdvReac Unknown Verified 10/22/20 09:30 dulaglutide [From Trulicity] AdvReac Unknown Verified 10/22/20 09:30 Home Meds Home Medications Medication Instructions Recorded Confirmed blood sugar diagnostic (OneTouch ea 05/05/20 10/02/20 Verio test strips) fluvoxamine 50 mg tablet 50 mg PO HS tab 05/05/20 10/22/20 insulin aspart U-100 100 unit/mL 20 unit SQ TIDM box 05/05/20 10/22/20 (3 mL) subcutaneous pen (Novolog Flexpen U-100 Insulin aspart) blood-glucose meter ([employer] #1 ea 07/26/20 10/02/20 Autocode Meter) insulin glargine 100 unit/mL (3 40 unit SQ HS ml 08/29/20 10/22/20 mL) subcutaneous pen (Lantus Solostar U-100 Insulin) aspirin 81 mg tablet,delayed 81 mg PO QAM 10/16/20 10/22/20 release levothyroxine 88 mcg tablet 88 mcg PO DAILYBB 10/16/20 10/22/20 lisinopril 40 mg tablet 40 mg PO QAM 10/16/20 10/22/20 spironolactone 25 mg tablet 25 mg PO QAM 10/16/20 10/22/20 (Aldactone) dapagliflozin 10 mg tablet 10 mg PO QAM 10/22/20 10/22/20 (Farxiga) Previous Rx's Medication Instructions Recorded buspirone 10 mg tablet 10 mg PO TID #90 tab 11/03/19 gemfibrozil 600 mg tablet 600 mg PO BID #60 tab 11/05/19 pen needle, diabetic 32 gauge x #200 ea 05/15/20" (BD Ultra-Fine Cary Pen Needle) simvastatin 40 mg tablet 40 mg PO HS #30 tab 09/18/20 metoprolol tartrate 25 mg tablet 25 mg PO BID #180 tab 09/25/20 clobetasol 0.05 % topical ointment 1 applic TOPICAL .COMPLEX #30 g 10/02/20 cephalexin 500 mg capsule 500 mg PO TID 7 Days #21 cap 10/16/20 clonazepam 0.5 mg tablet (Klonopin) 0.5 mg PO QAM #30 tab 10/20/20 Results & Data (ED) Vital Signs Vital Signs - 24 hr 10/22/20 07:47 10/22/20 08:01 10/22/20 08:06 Temperature 36.5 C Temperature Source Oral Pulse Rate 91 H 88 Pulse Rate [Left Finger] 94 H Pulse Rate from SpO2 Sensor 87 Pulse Rhythm Pulse Rhythm [Left Finger] Regular Pulse Strength [Left Finger] Normal Respiratory Rate 20 15 21 Respiratory Effort / Characteristics Non-Labored Spontaneous Non-Labored Spontaneous Respiratory Depth Normal Normal Respiratory Pattern Regular Regular Blood Pressure 181/94 H 164/102 H Blood Pressure [Left Arm] 164/102 H Blood Pressure Mean 123 122 Blood Pressure Mean [Left Arm] 122 Blood Pressure Position [Left Arm] Lying Pulse Oximetry 97 98 99 Oxygen Delivery Method Room Air Room Air Oxygen Flow Rate Sepsis Recent Fever Within 48 Hours No Sepsis New/Unexplained Change in Mental Status No Sepsis Action Taken by Nursing No Action Required 10/22/20 08:09 10/22/20 08:26 10/22/20 08:30 Temperature Temperature Source Pulse Rate 94 H 92 H 93 H Pulse Rate [Left Finger] Pulse Rate from SpO2 Sensor 93 H 94 H Pulse Rhythm Regular Pulse Rhythm [Left Finger] Pulse Strength [Left Finger] Respiratory Rate 21 17 13 Respiratory Effort / Characteristics Respiratory Depth Respiratory Pattern Blood Pressure 128/104 H 123/73 Blood Pressure [Left Arm] Blood Pressure Mean 112 89 Blood Pressure Mean [Left Arm] Blood Pressure Position [Left Arm] Pulse Oximetry 99 96 96 Oxygen Delivery Method Room Air Oxygen Flow Rate Sepsis Recent Fever Within 48 Hours Sepsis New/Unexplained Change in Mental Status Sepsis Action Taken by Nursing 10/22/20 08:45 10/22/20 09:00 10/22/20 09:15 Temperature Temperature Source Pulse Rate 87 81 73 Pulse Rate [Left Finger] Pulse Rate from SpO2 Sensor 87 82 75 Pulse Rhythm Pulse Rhythm [Left Finger] Pulse Strength [Left Finger] Respiratory Rate 10 L 13 6 L Respiratory Effort / Characteristics Respiratory Depth Respiratory Pattern Blood Pressure 135/60 116/65 124/74 Blood Pressure [Left Arm] Blood Pressure Mean 85 82 90 Blood Pressure Mean [Left Arm] Blood Pressure Position [Left Arm] Pulse Oximetry 97 95 97 Oxygen Delivery Method Oxygen Flow Rate Sepsis Recent Fever Within 48 Hours Sepsis New/Unexplained Change in Mental Status Sepsis Action Taken by Nursing 10/22/20 09:30 10/22/20 09:45 10/22/20 10:00 Temperature Temperature Source Pulse Rate 80 72 79 Pulse Rate [Left Finger] Pulse Rate from SpO2 Sensor 80 72 80 Pulse Rhythm Pulse Rhythm [Left Finger] Pulse Strength [Left Finger] Respiratory Rate 16 11 L 19 Respiratory Effort / Characteristics Respiratory Depth Respiratory Pattern Blood Pressure 114/72 107/70 103/71 Blood Pressure [Left Arm] Blood Pressure Mean 86 82 81 Blood Pressure Mean [Left Arm] Blood Pressure Position [Left Arm] Pulse Oximetry 98 97 98 Oxygen Delivery Method Oxygen Flow Rate Sepsis Recent Fever Within 48 Hours Sepsis New/Unexplained Change in Mental Status Sepsis Action Taken by Nursing 10/22/20 10:15 10/22/20 10:17 10/22/20 10:30 Temperature 36.5 C Temperature Source Oral Pulse Rate 76 77 Pulse Rate [Left Finger] 72 Pulse Rate from SpO2 Sensor 75 77 Pulse Rhythm Pulse Rhythm [Left Finger] Pulse Strength [Left Finger] Respiratory Rate 18 17 Respiratory Effort / Characteristics Respiratory Depth Respiratory Pattern Blood Pressure 116/75 178/106 H Blood Pressure [Left Arm] 107/70 Blood Pressure Mean 88 130 Blood Pressure Mean [Left Arm] 82 Blood Pressure Position [Left Arm] Sitting Pulse Oximetry 96 97 98 Oxygen Delivery Method Room Air Oxygen Flow Rate Sepsis Recent Fever Within 48 Hours Sepsis New/Unexplained Change in Mental Status Sepsis Action Taken by Nursing 10/22/20 11:10 10/22/20 11:20 10/22/20 11:36 Temperature Temperature Source Pulse Rate 87 87 Pulse Rate [Left Finger] Pulse Rate from SpO2 Sensor 87 94 H 89 Pulse Rhythm Pulse Rhythm [Left Finger] Pulse Strength [Left Finger] Respiratory Rate 23 14 Respiratory Effort / Characteristics Respiratory Depth Respiratory Pattern Blood Pressure 135/91 Blood Pressure [Left Arm] Blood Pressure Mean 105 Blood Pressure Mean [Left Arm] Blood Pressure Position [Left Arm] Pulse Oximetry 99 98 98 Oxygen Delivery Method Oxygen Flow Rate Sepsis Recent Fever Within 48 Hours Sepsis New/Unexplained Change in Mental Status Sepsis Action Taken by Nursing 10/22/20 11:45 10/22/20 12:03 10/22/20 12:14 Temperature Temperature Source Pulse Rate 88 88 84 Pulse Rate [Left Finger] Pulse Rate from SpO2 Sensor 88 84 Pulse Rhythm Pulse Rhythm [Left Finger] Pulse Strength [Left Finger] Respiratory Rate 16 20 18 Respiratory Effort / Characteristics Respiratory Depth Respiratory Pattern Blood Pressure 146/80 H 114/82 Blood Pressure [Left Arm] Blood Pressure Mean 102 92 Blood Pressure Mean [Left Arm] Blood Pressure Position [Left Arm] Pulse Oximetry 99 99 Oxygen Delivery Method Nasal Cannula Oxygen Flow Rate 2 Sepsis Recent Fever Within 48 Hours Sepsis New/Unexplained Change in Mental Status Sepsis Action Taken by Nursing 10/22/20 12:30 Temperature Temperature Source Pulse Rate 94 H Pulse Rate [Left Finger] Pulse Rate from SpO2 Sensor 95 H Pulse Rhythm Pulse Rhythm [Left Finger] Pulse Strength [Left Finger] Respiratory Rate 18 Respiratory Effort / Characteristics Respiratory Depth Respiratory Pattern Blood Pressure 115/79 Blood Pressure [Left Arm] Blood Pressure Mean 91 Blood Pressure Mean [Left Arm] Blood Pressure Position [Left Arm] Pulse Oximetry 99 Oxygen Delivery Method Oxygen Flow Rate Sepsis Recent Fever Within 48 Hours Sepsis New/Unexplained Change in Mental Status Sepsis Action Taken by Nursing Laboratory Data Result diagrams: 10/22/20 08:10 10/22/20 08:10 Lab Results 10/22/20 10/22/20 10/22/20 Range/Units 08:10 08:10 08:10 WBC 13.64 H (4.8-10.8) K/uL RBC 4.53 (4.2-5.4) M/uL Hgb 13.0 (12.0-16.0) g/dL Hct 38.0 (37-47) % MCV 83.9 (80-100) fL MCH 28.7 (25-34) pg MCHC 34.2 (32-36) g/dL RDW Std Deviation 39.5 (36.4-46.3) fL RDW Coeff of Umair 13.2 (11.5-14.5) % Plt Count 294 (130-400) K/uL MPV 10.6 H (7.4-10.4) fL Immature Gran % (Auto) 0.3 % Neut % (Auto) 69.0 % Lymph % (Auto) 22.0 % Phelps % (Auto) 5.1 % Eos % (Auto) 3.4 % Baso % (Auto) 0.2 % Neut # (Auto) 9.41 H (1.4-6.5) K/uL Lymph # (Auto) 3.00 (1.2-3.4) K/uL Phelps # (Auto) 0.70 H (0.11-0.59) K/uL Eos # (Auto) 0.46 (0-0.5) K/uL Baso # (Auto) 0.03 (0-0.2) K/uL Immature Gran # (Auto) 0.04 H (0.00-0.02) K/uL APTT 21.1 (21.0-31.0) Seconds PTT Ratio 0.8 Activ Coag Time Kaolin (94-140) SECONDS D-Dimer 760 H* (0-500) ug/L FEU Sodium 130 L (136-145) mmol/L Potassium 4.4 (3.5-5.1) mmol/L Chloride 99 (98-107) mmol/L Carbon Dioxide 20 L (21-32) mmol/L Anion Gap 11.0 (3-11) BUN 23 H (7-18) mg/dl Creatinine 1.37 H (0.6-1.2) mg/dl Est Cr Clr Drug Dosing 46.6 ml/min Est GFR ( Amer) 48.1 ml/min Est GFR (Non-Af Amer) 41.5 ml/min BUN/Creatinine Ratio 16.8 (10-20) Glucose 385 H* (70-99) mg/dl POC Glucose (70-99) mg/dl Calcium 8.8 (8.5-10.1) mg/dl Total Bilirubin 0.2 (0.2-1) mg/dl AST 17 (15-37) U/L ALT 18 (12-78) U/L Alkaline Phosphatase 153 H (45-117) U/L Troponin I 1.360 H* (0-0.045) ng/ml Total Protein 7.6 (6.4-8.2) gm/dl Albumin 3.1 L (3.4-5.0) gm/dl Globulin 4.5 H (2.5-4.0) gm/dl Albumin/Globulin Ratio 0.7 L (0.9-2) Lipase 132 (73-393) U/L Beta-Hydroxybutyric Acd 4.31 H (0.2-2.81) mg/dl COVID-19 Eval Order SARS-CoV-2 (PCR) (Negative) 10/22/20 10/22/20 10/22/20 Range/Units 09:30 09:30 10:39 WBC (4.8-10.8) K/uL RBC (4.2-5.4) M/uL Hgb (12.0-16.0) g/dL Hct (37-47) % MCV (80-100) fL MCH (25-34) pg MCHC (32-36) g/dL RDW Std Deviation (36.4-46.3) fL RDW Coeff of Umair (11.5-14.5) % Plt Count (130-400) K/uL MPV (7.4-10.4) fL Immature Gran % (Auto) % Neut % (Auto) % Lymph % (Auto) % Phelps % (Auto) % Eos % (Auto) % Baso % (Auto) % Neut # (Auto) (1.4-6.5) K/uL Lymph # (Auto) (1.2-3.4) K/uL Phelps # (Auto) (0.11-0.59) K/uL Eos # (Auto) (0-0.5) K/uL Baso # (Auto) (0-0.2) K/uL Immature Gran # (Auto) (0.00-0.02) K/uL APTT (21.0-31.0) Seconds PTT Ratio Activ Coag Time Kaolin (94-140) SECONDS D-Dimer (0-500) ug/L FEU Sodium (136-145) mmol/L Potassium (3.5-5.1) mmol/L Chloride (98-107) mmol/L Carbon Dioxide (21-32) mmol/L Anion Gap (3-11) BUN (7-18) mg/dl Creatinine (0.6-1.2) mg/dl Est Cr Clr Drug Dosing ml/min Est GFR ( Amer) ml/min Est GFR (Non-Af Amer) ml/min BUN/Creatinine Ratio (10-20) Glucose (70-99) mg/dl POC Glucose 415 H* (70-99) mg/dl Calcium (8.5-10.1) mg/dl Total Bilirubin (0.2-1) mg/dl AST (15-37) U/L ALT (12-78) U/L Alkaline Phosphatase (45-117) U/L Troponin I (0-0.045) ng/ml Total Protein (6.4-8.2) gm/dl Albumin (3.4-5.0) gm/dl Globulin (2.5-4.0) gm/dl Albumin/Globulin Ratio (0.9-2) Lipase (73-393) U/L Beta-Hydroxybutyric Acd (0.2-2.81) mg/dl COVID-19 Eval Order Covid19 at [facility] SARS-CoV-2 (PCR) NEGATIVE (Negative) 10/22/20 10/22/20 10/22/20 Range/Units 10:44 11:50 13:03 WBC (4.8-10.8) K/uL RBC (4.2-5.4) M/uL Hgb (12.0-16.0) g/dL Hct (37-47) % MCV (80-100) fL MCH (25-34) pg MCHC (32-36) g/dL RDW Std Deviation (36.4-46.3) fL RDW Coeff of Umair (11.5-14.5) % Plt Count (130-400) K/uL MPV (7.4-10.4) fL Immature Gran % (Auto) % Neut % (Auto) % Lymph % (Auto) % Phelps % (Auto) % Eos % (Auto) % Baso % (Auto) % Neut # (Auto) (1.4-6.5) K/uL Lymph # (Auto) (1.2-3.4) K/uL Phelps # (Auto) (0.11-0.59) K/uL Eos # (Auto) (0-0.5) K/uL Baso # (Auto) (0-0.2) K/uL Immature Gran # (Auto) (0.00-0.02) K/uL APTT (21.0-31.0) Seconds PTT Ratio Activ Coag Time Kaolin 186 H (94-140) SECONDS D-Dimer (0-500) ug/L FEU Sodium (136-145) mmol/L Potassium (3.5-5.1) mmol/L Chloride (98-107) mmol/L Carbon Dioxide (21-32) mmol/L Anion Gap (3-11) BUN (7-18) mg/dl Creatinine (0.6-1.2) mg/dl Est Cr Clr Drug Dosing ml/min Est GFR ( Amer) ml/min Est GFR (Non-Af Amer) ml/min BUN/Creatinine Ratio (10-20) Glucose (70-99) mg/dl POC Glucose 392 H* (70-99) mg/dl Calcium (8.5-10.1) mg/dl Total Bilirubin (0.2-1) mg/dl AST (15-37) U/L ALT (12-78) U/L Alkaline Phosphatase (45-117) U/L Troponin I 1.870 H* (0-0.045) ng/ml Total Protein (6.4-8.2) gm/dl Albumin (3.4-5.0) gm/dl Globulin (2.5-4.0) gm/dl Albumin/Globulin Ratio (0.9-2) Lipase (73-393) U/L Beta-Hydroxybutyric Acd (0.2-2.81) mg/dl COVID-19 Eval Order SARS-CoV-2 (PCR) (Negative) 10/22/20 10/22/20 10/22/20 Range/Units 13:17 13:36 13:38 WBC (4.8-10.8) K/uL RBC (4.2-5.4) M/uL Hgb (12.0-16.0) g/dL Hct (37-47) % MCV (80-100) fL MCH (25-34) pg MCHC (32-36) g/dL RDW Std Deviation (36.4-46.3) fL RDW Coeff of Umair (11.5-14.5) % Plt Count (130-400) K/uL MPV (7.4-10.4) fL Immature Gran % (Auto) % Neut % (Auto) % Lymph % (Auto) % Phelps % (Auto) % Eos % (Auto) % Baso % (Auto) % Neut # (Auto) (1.4-6.5) K/uL Lymph # (Auto) (1.2-3.4) K/uL Phelps # (Auto) (0.11-0.59) K/uL Eos # (Auto) (0-0.5) K/uL Baso # (Auto) (0-0.2) K/uL Immature Gran # (Auto) (0.00-0.02) K/uL APTT (21.0-31.0) Seconds PTT Ratio Activ Coag Time Kaolin 263 H (94-140) SECONDS D-Dimer (0-500) ug/L FEU Sodium (136-145) mmol/L Potassium (3.5-5.1) mmol/L Chloride (98-107) mmol/L Carbon Dioxide (21-32) mmol/L Anion Gap (3-11) BUN (7-18) mg/dl Creatinine (0.6-1.2) mg/dl Est Cr Clr Drug Dosing ml/min Est GFR ( Amer) ml/min Est GFR (Non-Af Amer) ml/min BUN/Creatinine Ratio (10-20) Glucose (70-99) mg/dl POC Glucose 324 H* 336 H* (70-99) mg/dl Calcium (8.5-10.1) mg/dl Total Bilirubin (0.2-1) mg/dl AST (15-37) U/L ALT (12-78) U/L Alkaline Phosphatase (45-117) U/L Troponin I (0-0.045) ng/ml Total Protein (6.4-8.2) gm/dl Albumin (3.4-5.0) gm/dl Globulin (2.5-4.0) gm/dl Albumin/Globulin Ratio (0.9-2) Lipase (73-393) U/L Beta-Hydroxybutyric Acd (0.2-2.81) mg/dl COVID-19 Eval Order SARS-CoV-2 (PCR) (Negative) Administered Medications Heparin Sodium/Dextrose (Heparin Sodium/Dextrose) 25,000 units in 500 mls @ 16 mls/hr IV .Q24H TONI; Protocol Stop: 11/21/20 09:44 Last Admin: 10/22/20 10:19 Dose: 800 units/hr, 16 mls/hr Documented by: [id number] Cosigned by: [id number] Nitroglycerin (Nitroglycerin Sl 0.4 Mg/Tab Tab) 0.4 mg SL UD PRN PRN Reason: Chest Pain Stop: 11/21/20 08:08 Last Admin: 10/22/20 08:27 Dose: 0.4 mg Documented by: [id number] Admin: 10/22/20 08:19 Dose: 0.4 mg Documented by: [id number] Discontinued Medications Aspirin (Aspirin Chew 324 Mg) 324 mg PO NOW STA Stop: 10/22/20 08:10 Last Admin: 10/22/20 08:19 Dose: 324 mg Documented by: [id number] Fentanyl Citrate (Fentanyl Citrate 100 Mcg/2 Ml Vial) 50 mcg IV NOW STA Stop: 10/22/20 08:39 Last Admin: 10/22/20 08:45 Dose: 50 mcg Documented by: [id number] Fentanyl Citrate (Fentanyl Citrate 100 Mcg/2 Ml Vial) Confirm Administered Dose 100 mcg .ROUTE .STK-MED ONE Stop: 10/22/20 12:26 Last Increment: 10/22/20 13:16 Dose: 25 mcg Documented by: [id number] Heparin Sodium (Porcine) (Heparin Sod (Porcine) 1000 Unit/Ml) 4,000 units IV NOW ONE Stop: 10/22/20 10:01 Last Admin: 10/22/20 10:19 Dose: 4,000 units Documented by: [id number] Cosigned by: [id number] Heparin Sodium (Porcine) (Heparin (Porcine) 1000 Unit/Ml 10 Ml (Delivery Room Supervisor Use Only)) Confirm Administered Dose 10,000 units .ROUTE .STK-MED ONE Stop: 10/22/20 12:26 Last Admin: 10/22/20 13:17 Dose: 10,000 units Documented by: [id number] Heparin Sodium (Porcine) (Heparin (Porcine) 1000 Unit/Ml 10 Ml (Delivery Room Supervisor Use Only)) Confirm Administered Dose 10,000 units .ROUTE .STZaarly-MED ONE Stop: 10/22/20 13:07 Last Admin: 10/22/20 13:18 Dose: 2,000 units Documented by: [id number] Heparin Sodium/Dextrose (Heparin Iv Adult Wt-Based Low-Dose With Bolus Protocol) 1 ea N/A NOW STA; Protocol Stop: 10/22/20 09:17 Last Admin: 10/22/20 10:20 Dose: Not Given Documented by: [id number] Heparin Sodium/Sodium Chloride (Heparin In Nss Infusion 1000 Unit/500 Ml (2 U/Ml) Bag) Confirm Administered Dose 3,000 units IV .STK-MED ONE Stop: 10/22/20 12:26 Last Admin: 10/22/20 13:17 Dose: 3,000 units Documented by: [id number] Lorazepam (Ativan) 1 mg in 2 mls @ 2 mls/min IV NOW STA Stop: 10/22/20 11:28 Last Admin: 10/22/20 12:00 Dose: 2 mls/min Documented by: [id number] Famotidine (Pepcid 20mg Iv Push) 20 mg in 5 mls @ 2.5 mls/min IV NOW STA Stop: 10/22/20 11:32 Last Admin: 10/22/20 11:51 Dose: 2.5 mls/min Documented by: [id number] Insulin Human Regular (Novolin-R Insulin Per Unit Charge) 10 units SC NOW STA Stop: 10/22/20 09:17 Last Admin: 10/22/20 10:01 Dose: 10 units Documented by: [id number] Cosigned by: [id number] Midazolam HCl (Midazolam Hcl 1 Mg/Ml 2ml Vial) Confirm Administered Dose 2 mg .ROUTE .STK-MED ONE Stop: 10/22/20 12:26 Last Increment: 10/22/20 13:16 Dose: 1 mg Documented by: [id number] Nicardipine HCl (Nicardipine Hcl Inj 2.5 Mg/Ml 10 Ml Amp) Confirm Administered Dose 25 mg .ROUTE .STK-MED ONE Stop: 10/22/20 12:26 Last Admin: 10/22/20 13:16 Dose: 25 mg Documented by: [id number] Nitroglycerin/Dextrose (Nitroglycerin/D5w 100mcg/Ml 20ml Syr) Confirm Administered Dose 2,000 mcg .ROUTE .STK-MED ONE Stop: 10/22/20 12:26 Last Admin: 10/22/20 13:17 Dose: 2,000 mcg Documented by: [id number] Ticagrelor (Ticagrelor 90 Mg Tab) Confirm Administered Dose 180 mg PO .STZaarly-MED ONE Stop: 10/22/20 12:47 Last Admin: 10/22/20 13:17 Dose: 180 mg Documented by: [id number] Imaging Data Radiologist's Impression: Chest X-Ray 10/22/20 08:09 XR chest 1V portable CLINICAL HISTORY: Chest Pain COMPARISON STUDY: Chest radiograph April 22, 2019 FINDINGS: Lung volumes are normal. Lungs are clear. There is no pneumothorax or pleural effusion. Cardiac size is stable. Mediastinal contours are normal. There is no evidence for pulmonary edema. IMPRESSION: No acute cardiopulmonary findings. No change in appearance of the chest. ACT 112: Negative or not required by law. Electronically signed by: Nahun Odell M.D. 10/22/2020 8:44 AM Discharge Plan Visit Data Chief Complaint: Chest Pain Stated Complaint: CHEST PAIN INTO BACK AND LEFT ARM ED Provider: Aleksandra Sanderson ED Midlevel Provider: Emma Samuels Discharge Problem: Acute non-ST elevation myocardial infarction (NSTEMI) Patient Disposition: Admitted As Inpatient Discharge Instructions Interventions: ED Discharge Assessment Last Done: 10/22/20 12:40
[2020-10-22 08:25] LABS: Basophils # (auto) 0.03 K/uL (0-0.2); Basophils % (auto) 0.2 %; Eosinophils # (auto) 0.46 K/uL (0-0.5); Eosinophils % (auto) 3.4 %; Immature Granulocytes # (auto) 0.04 K/uL (0.00-0.02); Immature Granulocytes % (auto) 0.3 %; Mean Corpuscular Hemoglobin 28.7 pg (25-34); Mean Corpuscular Hgb Conc 34.2 g/dL (32-36); Mean Corpuscular Volume 83.9 fL (80-100); Mean Platelet Volume 10.6 fL (7.4-10.4); Monocytes % (auto) 5.1 %; Neutrophils # (auto) 9.41 K/uL (1.4-6.5); Platelet Count 294 K/uL (130-400); RDW Coefficient of Variation 13.2 % (11.5-14.5); RDW Standard Deviation 39.5 fL (36.4-46.3); Red Blood Count 4.53 M/uL (4.2-5.4); White Blood Count 13.64 K/uL (4.8-10.8)
[2020-10-22] MEDS ORDERED: fentaNYL citrate 100 MCG/2 ML VIAL IV STA (08:38)
--- NOTE | 2020-10-22 08:46 | XRay Report ---
XR chest 1V portable CLINICAL HISTORY: Chest Pain COMPARISON STUDY: Chest radiograph April 22, 2019 FINDINGS: Lung volumes are normal. Lungs are clear. There is no pneumothorax or pleural effusion. Car diac size is stable. Mediastinal contours are normal. There is no evidence for pulmonary edema. IMPRESSION: No acute cardiopulmonary findings. No change in appearance of the chest. ACT 112: Negative or not required by law. Electronically signed by: Nahun Odell M.D. 10/22/2020 8:44 AM
[2020-10-22 08:47] LABS: Albumin Globulin Ratio 0.7 (0.9-2); Albumin Level 3.1 gm/dl (3.4-5.0); BUN Creatinine Ratio 16.8 (10-20); Bilirubin,Total 0.2 mg/dl (0.2-1); Calcium 8.8 mg/dl (8.5-10.1); Creatinine Clr Calc Pharmacy 46.6 ml/min; Est GFR (African American) 48.1 ml/min; Est GFR (Non-African American) 41.5 ml/min; Potassium 4.4 mmol/L (3.5-5.1); Total Protein 7.6 gm/dl (6.4-8.2)
[2020-10-22 08:58] LABS: Globulin 4.5 gm/dl (2.5-4.0)
[2020-10-22 09:00] LABS: Beta-Hydroxybutyrate 4.31 mg/dl (0.2-2.81)
[2020-10-22] MEDS ORDERED: Heparin IV Adult Wt-Based Low-Dose WITH Bolus Protocol STA (09:16)
[2020-10-22] MEDS ORDERED: NovoLIN-R INSULIN PER UNIT CHARGE SC STA (09:16)
[2020-10-22 09:17] LABS: Partial Thromboplastin Ratio 0.8; Partial Thromboplastin Time 21.1 Seconds (21.0-31.0)
[2020-10-22 09:29] LABS: D Dimer 760 ug/L FEU (0-500)
[2020-10-22] MEDS ORDERED: HEPARIN SOD (PORCINE) 1000 UNIT/ML IV ONE ×2 (09:33→10:00)
[2020-10-22] MEDS ORDERED: HEPARIN SODIUM/DEXTROSE 25,000 UNITS/500 ML BAG IV SCH (09:45)
[2020-10-22 10:13] LABS: Troponin I 1.36 ng/ml (0-0.045)
[2020-10-22] MEDS ORDERED: LORazepam 1 MG/2 ML VIAL IV STA (11:27)
[2020-10-22] MEDS ORDERED: FAMOTIDINE 20MG IV PUSH 20 MG/5 ML SYR IV STA (11:31)
--- NOTE | 2020-10-22 12:06 | Cardiology Consultation ---
Date of Consultation October 22, 2020 Assessment & Plan (1) NSTEMI (non-ST elevated myocardial infarction): To high density press laborer now for coronary angiography and possible PCI. Risks reviewed w pt who is agreeable to proceed History of Present Illness Reason for Consultation: Chest Pain Requesting Physician: ER Attending Physician: Manjula History of Present Illness 60 WF no prior cardiac history presentint w 24 hours stuttering SSCP. EKG without acute change (subtle ST elevation in lead 3 that does not meet STEMI criteria) but continued CP prompts referral for urgent cath Allergies Allergy/AdvReac Type Severity Reaction Status Date / Time albiglutide [From Tanzeum] AdvReac Unknown Verified 10/22/20 09:30 dulaglutide [From Trulicity] AdvReac Unknown Verified 10/22/20 09:30 Home Medications Medication Instructions Recorded Confirmed Type buspirone 10 mg tablet 10 mg PO TID #90 tab 11/03/19 10/22/20 Rx gemfibrozil 600 mg tablet 600 mg PO BID #60 tab 11/05/19 10/22/20 Rx blood sugar diagnostic (OneTouch ea 05/05/20 10/02/20 History Verio test strips) fluvoxamine 50 mg tablet 50 mg PO HS tab 05/05/20 10/22/20 History insulin aspart U-100 100 unit/mL 20 unit SQ TIDM box 05/05/20 10/22/20 History (3 mL) subcutaneous pen (Novolog Flexpen U-100 Insulin aspart) pen needle, diabetic 32 gauge x #200 ea 05/15/20 10/02/20 Rx 5/32" (BD Ultra-Fine Cary Pen Needle) blood-glucose meter (Prodigy #1 ea 07/26/20 10/02/20 History Autocode Meter) insulin glargine 100 unit/mL (3 40 unit SQ HS ml 08/29/20 10/22/20 History mL) subcutaneous pen (Lantus Solostar U-100 Insulin) simvastatin 40 mg tablet 40 mg PO HS #30 tab 09/18/20 10/22/20 Rx metoprolol tartrate 25 mg tablet 25 mg PO BID #180 tab 09/25/20 10/22/20 Rx clobetasol 0.05 % topical ointment 1 applic TOPICAL .COMPLEX #30 g 10/02/20 10/22/20 Rx aspirin 81 mg tablet,delayed 81 mg PO QAM 10/16/20 10/22/20 History release cephalexin 500 mg capsule 500 mg PO TID 7 Days #21 cap 10/16/20 10/22/20 Rx levothyroxine 88 mcg tablet 88 mcg PO DAILYBB 10/16/20 10/22/20 History lisinopril 40 mg tablet 40 mg PO QAM 10/16/20 10/22/20 History spironolactone 25 mg tablet 25 mg PO QAM 10/16/20 10/22/20 History (Aldactone) clonazepam 0.5 mg tablet (Klonopin) 0.5 mg PO QAM #30 tab 10/20/20 10/22/20 Rx dapagliflozin 10 mg tablet 10 mg PO QAM 10/22/20 10/22/20 History (Farxiga) Patient History Medical History (Updated 10/22/20 @ 12:14 by Efra Shin MD) Anxiety Arthralgia of multiple sites Depression Diabetes type 2, uncontrolled Dyslipidemia Hypertension Hypokalemia Hyponatremia Hypothyroidism Obesity OCD (obsessive compulsive disorder) Psoriasis Renal insufficiency Serum gamma globulin increased Tobacco abuse Vulvitis Surgical History History of cholecystectomy History of dental surgery History of tonsillectomy Family History (Updated 07/27/20 @ 14:01 by Vale Johns MA) Unknown Thyroid disorder Diabetes Father Diabetes Denies family history of Ovarian cancer Prostate cancer Breast cancer Colorectal cancer Uterine cancer Social History (Updated 07/27/20 @ 14:01 by Vale Johns MA) Smoking Status: Current every day smoker Tobacco Type: Cigarettes Cigarettes Per Day: 15; Second Hand Exposure: Yes; Hx Alcohol Use: No Hx Substance Use: No Preferred Language: Czech Communication Ability: Effective Unit Nurse Required: No Beliefs That Will Affect Care: None Current Living Situation: Alone Other Information That Helps Us Care for You: No Feels Safe at Home: Yes Safety Concerns: Feels Safe At This Time Physical Activity Frequency: Does not Exercise Seatbelt Use: always Assistive Devices: None Review of Systems Review of Systems: All systems reviewed & are unremarkable except as noted in HPI & below Physical Exam Physical Exam: Vital signs reviewed. General: Well-appearing [], in no significant distress. HEENT: No scleral icterus, PERRLA, neck supple. Atraumatic. Cardiovascular: Regular rate and rhythm, no extra sounds. Pulmonary: Clear to auscultation bilaterally, normal work of breathing. Abdomen: Soft, nontender, nondistended, positive bowel sounds. Musculoskeletal: Atraumatic, no peripheral edema. Neurologic: Patient awake alert and oriented x 3, full strength in all 4 extremities. Cranial nerves 2 through 12 grossly intact. Skin: Warm, dry, no rash Results & Data ([facility]) Vital Signs (Past 12 Hours) Vital Signs Temp Pulse Pulse Resp BP BP Pulse Ox 10/22/20 10:17 97.7 F 72 107/70 97 10/22/20 09:45 72 11 L 107/70 97 10/22/20 09:30 80 16 114/72 98 10/22/20 09:15 73 6 L 124/74 97 10/22/20 09:00 81 13 116/65 95 10/22/20 08:45 87 10 L 135/60 97 10/22/20 08:30 93 H 13 123/73 96 10/22/20 08:26 92 H 17 128/104 H 96 10/22/20 08:09 94 H 21 99 10/22/20 08:06 94 H 21 164/102 H 99 10/22/20 08:01 88 15 164/102 H 98 10/22/20 07:47 97.7 F 91 H 20 181/94 H 97 Laboratory Results Trop 1.4 PG Care Time/CCT Total # of Minutes Spent Total Time Spent with Patient: Total time spent is greater than 50% in coordination of care (as documented) at patient's floor/unit and/or counseling patient: [place] [address] Inpt Consult Level 3 Patient Type New History Problem Focused Exam Problem Focused Medical Decision Making Straight Forward Diagnoses NSTEMI (non-ST elevated myocardial infarction) I21.4 Time Spent (min) 30
--- NOTE | 2020-10-22 12:14 | XCELERA ---
[id number]
[2020-10-22] MEDS ORDERED: NITROGLYCERIN/D5W 100MCG/ML 20ML SYR ONE (12:25)
[2020-10-22] MEDS ORDERED: fentaNYL citrate 100 MCG/2 ML VIAL ONE (12:25)
[2020-10-22] MEDS ORDERED: HEPARIN (PORCINE) 1000 UNIT/ML 10 ML (CATH LAB USE ONLY) ONE ×3 (12:25→13:22)
[2020-10-22] MEDS ORDERED: MIDAZOLAM HCL 1 MG/ML 2ML VIAL ONE (12:25)
[2020-10-22] MEDS ORDERED: niCARdipine HCL INJ 2.5 MG/ML 10 ML AMP ONE (12:25)
--- NOTE | 2020-10-22 12:36 | History & Physical Report ---
Date of Service October 22, 2020 Assessment & Plan (1) Acute non-ST elevation myocardial infarction (NSTEMI): History of Present Illness Chief Complaint: chest pain Primary Care Provider: Prashant Pina MD 60yo female with HTN, HLD, poorly-controlled IDDM2, obesity, tobacco use, postmenopausal bleeding, MDD, AKASH, and hypothyroidism presents with chest pain. Patient's chest pain started last night and worsened to 7/10 pain over the course of about an hour, and has stayed at that level since. Patient was unable to sleep due to pain. Patient's chest pain is worst on the right side of her chest, and occasionally radiates straight through to her back. Pain worsens with exertion. No worsening of pain with deep breaths. Patient has intermittent nausea and SOB as well. In the ED, pain was unrelieved by nitro. Denies fever, chills, vomiting, diarrhea, lightheadedness, dizziness, syncope, or other symptoms. Beyond HTN and HLD, patient has no cardiac history. Patient has a recent history of postmenopausal bleeding that is in the process of being worked up by her split leather mosser, with a D&C planned for the near future. Patient's IDDM2 is very poorly controlled and has been worsening for years - patient has been resistant to any increases in her insulin regimen. Most recent A1c (04/2020) was too high to be accurately measured (>16.9%). Allergies Allergy/AdvReac Type Severity Reaction Status Date / Time albiglutide [From Tanzeu] AdvReac Unknown Verified 10/22/20 09:30 dulaglutide [From [facility]] AdvReac Unknown Verified 10/22/20 09:30 Home Medications Medication Instructions Recorded Confirmed Type buspirone 10 mg tablet 10 mg PO TID #90 tab 11/03/19 10/22/20 Rx gemfibrozil 600 mg tablet 600 mg PO BID #60 tab 11/05/19 10/22/20 Rx blood sugar diagnostic (OneTouch ea 05/05/20 10/02/20 History Verio test strips) fluvoxamine 50 mg tablet 50 mg PO HS tab 05/05/20 10/22/20 History insulin aspart U-100 100 unit/mL 20 unit SQ TIDM box 05/05/20 10/22/20 History (3 mL) subcutaneous pen (Novolog Flexpen U-100 Insulin aspart) pen needle, diabetic 32 gauge x #200 ea 05/15/20 10/02/20 Rx 5/32" (BD Ultra-Fine Cary Pen Needle) blood-glucose meter (Prodigy #1 ea 07/26/20 10/02/20 History Autocode Meter) insulin glargine 100 unit/mL (3 40 unit SQ HS ml 08/29/20 10/22/20 History mL) subcutaneous pen (Lantus Solostar U-100 Insulin) simvastatin 40 mg tablet 40 mg PO HS #30 tab 09/18/20 10/22/20 Rx metoprolol tartrate 25 mg tablet 25 mg PO BID #180 tab 09/25/20 10/22/20 Rx clobetasol 0.05 % topical ointment 1 applic TOPICAL .COMPLEX #30 g 10/02/20 10/22/20 Rx aspirin 81 mg tablet,delayed 81 mg PO QAM 10/16/20 10/22/20 History release cephalexin 500 mg capsule 500 mg PO TID 7 Days #21 cap 10/16/20 10/22/20 Rx levothyroxine 88 mcg tablet 88 mcg PO DAILYBB 10/16/20 10/22/20 History lisinopril 40 mg tablet 40 mg PO QAM 10/16/20 10/22/20 History spironolactone 25 mg tablet 25 mg PO QAM 10/16/20 10/22/20 History (Aldactone) clonazepam 0.5 mg tablet (Klonopin) 0.5 mg PO QAM #30 tab 10/20/20 10/22/20 Rx dapagliflozin 10 mg tablet 10 mg PO QAM 10/22/20 10/22/20 History (Farxiga) Past Med/Surg History Medical History (Updated 10/22/20 @ 12:14 by Efra Shin MD) Anxiety Arthralgia of multiple sites Depression Diabetes type 2, uncontrolled Dyslipidemia Hypertension Hypokalemia Hyponatremia Hypothyroidism Obesity OCD (obsessive compulsive disorder) Psoriasis Renal insufficiency Serum gamma globulin increased Tobacco abuse Vulvitis Surgical History History of cholecystectomy History of dental surgery History of tonsillectomy Family History (Updated 07/27/20 @ 14:01 by Vale Johns MA) Unknown Thyroid disorder Diabetes Father Diabetes Denies family history of Ovarian cancer Prostate cancer Breast cancer Colorectal cancer Uterine cancer Social History (Updated 07/27/20 @ 14:01 by Vale Johns MA) Smoking Status: Current every day smoker Tobacco Type: Cigarettes Cigarettes Per Day: 15; Second Hand Exposure: Yes; Hx Alcohol Use: No Hx Substance Use: No Preferred Language: Gambian Communication Ability: Effective Financial Investigator Required: No Beliefs That Will Affect Care: None Current Living Situation: Alone Other Information That Helps Us Care for You: No Feels Safe at Home: Yes Safety Concerns: Feels Safe At This Time Physical Activity Frequency: Does not Exercise Seatbelt Use: always Assistive Devices: None Review of Systems Review of Systems: See HPI Physical Exam Physical Exam: Constitutional: anxious-appearing, no acute distress HEENT: NCAT, no conjunctival injection CV: regular rhythm, no murmur appreciated Resp: mild end-expiratory wheezes bilaterally GI: soft, nontender, nondistended MSK: no chest wall tenderness Neuro: AOx4, no focal neurological deficits appreciated Psych: emotionally labile ranging from calm to tearful to angry, thought process rigid but redirectable Results & Data Results & Data ([facility]) Vital Signs (Past 12 Hours) Vital Signs Temp Pulse Pulse Resp BP BP Pulse Ox 10/22/20 12:03 88 20 10/22/20 11:45 88 16 146/80 H 99 10/22/20 11:36 87 14 135/91 98 10/22/20 11:20 98 10/22/20 11:10 87 23 99 10/22/20 10:30 77 17 178/106 H 98 10/22/20 10:17 36.5 C 72 107/70 97 10/22/20 10:15 76 18 116/75 96 10/22/20 10:00 79 19 103/71 98 10/22/20 09:45 72 11 L 107/70 97 10/22/20 09:30 80 16 114/72 98 10/22/20 09:15 73 6 L 124/74 97 10/22/20 09:00 81 13 116/65 95 10/22/20 08:45 87 10 L 135/60 97 10/22/20 08:30 93 H 13 123/73 96 10/22/20 08:26 92 H 17 128/104 H 96 10/22/20 08:09 94 H 21 99 10/22/20 08:06 94 H 21 164/102 H 99 10/22/20 08:01 88 15 164/102 H 98 10/22/20 07:47 36.5 C 91 H 20 181/94 H 97 Supervising Physician Co-Signing Physician Notes I personally examined the patient and verified all real points of history and exam, discussed case, and agree with decision making with Dr Chavez seen after cath. no further cp. discussed med management and salvage determiner need for lifestyle overhaul. vitals noted nad heent nc at mmm breathing unlabored no accessory muscles good effort skin no rashes no pallor or icterus NSTEMI - now post stenting. due to DM/smoking/lipids/HTN -- med management, secondary risk reduction, massive lifestyle change otherwise as above Resident Activity Tracking Resident Involvement: Resident Care Provided Care Provided: Adult Hospital Medicine
[2020-10-22] MEDS ORDERED: TICAGRELOR 90 MG TAB PO ONE (12:46)
--- NOTE | 2020-10-22 13:22 | Pre Anesthesia Assessment ---
Date of Service October 22, 2020 Pre Sedation Assessment Vital Signs Temp Pulse Pulse Resp BP BP Pulse Ox 10/22/20 12:03 88 20 10/22/20 11:45 88 16 146/80 H 99 10/22/20 11:36 87 14 135/91 98 10/22/20 11:20 98 10/22/20 11:10 87 23 99 10/22/20 10:30 77 17 178/106 H 98 10/22/20 10:17 97.7 F 72 107/70 97 10/22/20 10:15 76 18 116/75 96 10/22/20 10:00 79 19 103/71 98 10/22/20 09:45 72 11 L 107/70 97 10/22/20 09:30 80 16 114/72 98 10/22/20 09:15 73 6 L 124/74 97 10/22/20 09:00 81 13 116/65 95 10/22/20 08:45 87 10 L 135/60 97 10/22/20 08:30 93 H 13 123/73 96 10/22/20 08:26 92 H 17 128/104 H 96 10/22/20 08:09 94 H 21 99 10/22/20 08:06 94 H 21 164/102 H 99 10/22/20 08:01 88 15 164/102 H 98 10/22/20 07:47 97.7 F 91 H 20 181/94 H 97 Pre-Sedation Airway Assessment Smoking Status: Current every day smoker Class 2 Class 2 Notes The planned sedation has been discussed with the patient. Informed Consent was obtained. I have identified the patient, determined the appropriateness of sedation and have assessed the patient immediately prior to the procedure. All medicine(s) and interventions are by my order.
--- NOTE | 2020-10-22 13:22 | Post Anesthesia Assessment ---
Date of Service October 22, 2020 Post Sedation Assessment Vital Signs Temp Pulse Pulse Resp BP BP Pulse Ox 10/22/20 12:30 94 H 18 115/79 99 10/22/20 12:14 84 18 114/82 99 10/22/20 12:03 88 20 10/22/20 11:45 88 16 146/80 H 99 10/22/20 11:36 87 14 135/91 98 10/22/20 11:20 98 10/22/20 11:10 87 23 99 10/22/20 10:30 77 17 178/106 H 98 10/22/20 10:17 97.7 F 72 107/70 97 10/22/20 10:15 76 18 116/75 96 10/22/20 10:00 79 19 103/71 98 10/22/20 09:45 72 11 L 107/70 97 10/22/20 09:30 80 16 114/72 98 10/22/20 09:15 73 6 L 124/74 97 10/22/20 09:00 81 13 116/65 95 10/22/20 08:45 87 10 L 135/60 97 10/22/20 08:30 93 H 13 123/73 96 10/22/20 08:26 92 H 17 128/104 H 96 10/22/20 08:09 94 H 21 99 10/22/20 08:06 94 H 21 164/102 H 99 10/22/20 08:01 88 15 164/102 H 98 10/22/20 07:47 97.7 F 91 H 20 181/94 H 97 Discharge Sedation Level of Care: Higher Level of Care Post Sedation Plan On clinical assessment, the patient appears to have tolerated the sedation wi thout complications. Patient is recovering as anticipated. Patient will continue to be monitored by nursing and may be discharged when sedation discharge criteria are met per below protocol. Upon Completions of procedure up to 15 minutes continue every 5 minute vital signs and the P.A.R. score; then discharge to a Phase I or Fast Track to Phase II per the following guidelines: * Discharge Patient to appropriate Phase II area if PAR is 8 or greater or return to pre- procedure baseline. The post - procedure orders will be as directed. * If PAR score is less than 8 or not return to pre-procedure baseline then patient will follow Phase I monitoring till PAR is reached for Phase II. The Phase I may be done in procedure room or may call to secure a Phase I area. * If naloxone or flumazenil are used for reversal, hold in Phase I for continued monitoring from when last reversal dose was given for a minimum of 60 minutes or longer pending the nurse and/or physician discretion of patient condition before discharge to Phase II. Please call the Sedation Physician to re-evaluate and complete post-note for discharge to Phase II area. Do NOT discharge from procedure sedation or Phase 1 until post- sedation evaluation note is complete by procedure /sedation MD Sedation Discharge Instructions to be given to the patient at discharge to home.
[2020-10-22] MEDS ORDERED: TICAGRELOR 90 MG Homepack PO STA (13:33)
[2020-10-22] MEDS ORDERED: ondansetron HCL 8 MG in DEXTROSE 5% 50 ML IV PRN (13:33)
[2020-10-22] MEDS ORDERED: PHARMACY GLYCEMIC MGMT CONSULT PRN (13:33)
[2020-10-22] MEDS ORDERED: ATROPINE SULFATE 0.1 MG/ML 10ML SYR IV PRN (13:33)
[2020-10-22] MEDS ORDERED: LORazepam 0.5 MG TAB PO PRN (13:33)
--- NOTE | 2020-10-22 13:33 | Cardiac Catheterization ---
ACC Data: Cook Larder Cardiac Status Clinical evaluation leading to the procedure NSTEMI CAD Presenation: Non STEMI STEMI OR Non-STEMI Symptom Onset Date: 10/21/20 Coronary Anatomy Dominant: Right Left Main (% Stenosis): Normal LAD (% Stenosis): Proximal (99) and Mid (75) Circumflex (% Stenosis): Normal (luminal irregularities) RCA (% Stenosis): Normal (Luminal irregularities) Left Ventricular Angiography EF (%): Not Assessed Diagnostic Physicians Name: Efra Shin MD Closure Device Recommendations: PCI without planned CABG Lesion Segment Name: Prox LAD Culprit Artery: Yes Stenosis Prior to Rx (%): 90 Pre-Procedure MARYBETH Flow: 3 Previously Treated Lesion: No Lesion Complexity: Non-High/Non-C Lesion Length (mm): 8 Thrombus Present: No Bifurcation Lesion: No Guidewire Across Lesion: Yes Lesion #2 Segment Name: Mid LAD Culprit Artery: Yes Stenosis Prior to Rx (%): 75 Pre-Procedure MARYBETH Flow: 3 Previously Treated Lesion: No Lesion Complexity: Non-High/Non-C Lesion Length (mm): 15 Thrombus Present: No Guidewire Across Lesion: Yes Cardiac Cath Procedure Full Procedure Date October 22, 2020 Pre-Procedure Diagnosis Pre-Procedure Diagnosis: Non STEMI AUC Score AUC Score: Appropriate Post-Procedure Diagnosis Post-Procedure Diagnosis: Successful PCI Procedure(s) Performed Procedure(s) Performed: Coronary Angiography and Drug Eluting Stent Head Tennis Coach Efra Shin MD Estimated Blood Loss Estimated Blood Loss: None Medication(s) Medication(s): See procedure log Summary of Findings 60 WF no prior cardiac history presenting w typical SSCP @ rest last 24 hours. EKG nondiagnostic but trop elevated and CP persistent prompting referral for urgent cath Hemodynamics Rest Ao:: 120/80 Final Ao: 90/60 (post Nitro) LV: Not measured Recommendations Recommendations: PCI without planned CABG Radiation Exposure (mGy) DAP 183, mGy 1964, Fluoro 7.4 min Contrast (mls) 140 Anesthesia Concious Sedation Procedural Complication(s) None Disposition PCU I attest to the content of the Intraoperative Record and any orders documented therein. Any exceptions are noted below. PG Care Time/CCT Total # of Minutes Spent Total Time Spent with Patient: Total time spent is greater than 50% in coordination of care (as documented) at patient's floor/unit and/or counseling patient:
[2020-10-22] MEDS ORDERED: ATORVASTATIN 40 MG TAB PO SCH (13:45)
[2020-10-22] MEDS ORDERED: BLOOD GLUCOSE METER SCH (13:45)
[2020-10-22] MEDS ORDERED: NON-FORMULARY MEDICATION (Blood Sugar Diagnostic [Onetouch Verio Test Strips] strip) SCH (13:45)
[2020-10-22] MEDS ORDERED: busPIRone 5 MG TAB PO SCH (14:00)
[2020-10-22] MEDS ORDERED: DEXTROSE 50% 50 ML SYRINGE IV PRN (14:45)
[2020-10-22] MEDS ORDERED: GLUCOSE 40% GEL 15 GM TUBE PO PRN (14:45)
[2020-10-22] MEDS ORDERED: GLUCOSE 10 TABS/TUBE PO PRN (14:45)
[2020-10-22] MEDS ORDERED: CARBOHYDRATES FOR HYPOGLYCEMIA PO PRN (14:45)
[2020-10-22] MEDS ORDERED: GLUCAGON FOR INJ 1 MG VIAL IM PRN (14:45)
[2020-10-22] MEDS: SODIUM CHLORIDE 0.9% 1000ML 1,000 ML IV SCH ×2 (14:53→22:33)
[2020-10-22] MEDS ORDERED: INSULIN REGULAR 250 UNITS in SODIUM CHLORIDE 0.9% 247.5 ML IV SCH (15:00)
[2020-10-22] MEDS ORDERED: INSULIN HUMAN REGULAR IV BOLUS 10 UNITS in SYRINGE 0 ML IV ONE (15:00)
--- NOTE | 2020-10-22 15:12 | Pharmacy Report ---
Pharmacy Glycemic Short Note 2 - Date of Service October 22, 2020 - Glycemic Short BSG Results (Last 24 hours): 10/22/20 10/22/20 10/22/20 08:10 10:39 10:44 Glucose 385 H* POC Glucose 415 H* 392 H* 10/22/20 10/22/20 13:36 13:38 Glucose POC Glucose 324 H* 336 H* OUTPATIENT ANTIDIABETIC REGIMEN: * Lantus 40 units HS * Novolog ~14 units with meals * Faxiga 10 mg qAM ASSESSMENT: * Ms Lua is a 60 y/o F with a PMH of poorly controlled T2DM who presents with NSTEMI. Patient underwent cardiac catheterization. * Discussed situation with Dr Chavez and Dr Hinojosa. * Start insulin infusion with higher goal range of 150-250 mg/dL. PLAN FOR INPATIENT GLYCEMIC CONTROL: ASSESSMENT: * insulin infusion starting at 10 units /hr and titrate per calculator goal range 150-250 mg/dL * fixed carbohydrate ratio of 1 unit per 4 grams of carbohydrates. Thank you. PLAN FOR DISCHARGE: * TBD
[2020-10-22] MEDS: busPIRone 5 MG TAB PO SCH ×2 (15:28→20:57)
[2020-10-22] MEDS: clonazePAM 0.5 MG TAB PO SCH (15:28)
[2020-10-22] MEDS ORDERED: INSULIN GLARGINE SOLOSTAR 100 UNITS/ML 3 ML PEN SC ONE (16:00)
[2020-10-22] MEDS: INSULIN ASPART 100 UNITS/ML 3 ML PEN SC SCH ×3 (16:02→21:11)
[2020-10-22] MEDS ORDERED: INSULIN ASPART 100 UNITS/ML 3 ML PEN SQ SCH (17:00)
[2020-10-22] MEDS ORDERED: POLYETHYLENE (MIRALAX) 17 GM PACK PO PRN (17:05)
[2020-10-22] MEDS ORDERED: ONDANSETRON INJ 2 MG/ML 2 ML VIAL IV PRN (17:05)
[2020-10-22] MEDS ORDERED: ALUMINUM/MAGNESIUM SUSP 30 ML UDC PO PRN (17:05)
[2020-10-22] MEDS ORDERED: MAGNESIUM HYDROXIDE SUSP 30 ML UDC PO PRN (17:05)
[2020-10-22] MEDS ORDERED: ACETAMINOPHEN 325 MG TAB PO PRN (17:05)
--- NOTE | 2020-10-22 17:55 | Billing Data ---
Date of Service October 22, 2020 Coding Level of Care Code 79750 Initial Inpt Care Lvl 3
[2020-10-22] MEDS: ATORVASTATIN 40 MG TAB PO SCH (18:31)
[2020-10-22] MEDS: METOPROLOL TARTRATE 25 MG TAB PO SCH (20:56)
[2020-10-22] MEDS: fluvoxaMINE MALEATE 50 MG TAB PO SCH (20:57)
[2020-10-22] MEDS: gemfibroziL 600 MG TAB PO SCH (20:57)
[2020-10-22] MEDS ORDERED: SIMVASTATIN 40 MG TAB PO SCH ×2 (21:00)
[2020-10-22] MEDS ORDERED: gemfibroziL 600 MG TAB PO SCH (21:00)
[2020-10-22] MEDS ORDERED: INSULIN GLARGINE SOLOSTAR 100 UNITS/ML 3 ML PEN SQ SCH (21:00)
[2020-10-22] MEDS ORDERED: METOPROLOL TARTRATE 25 MG TAB PO SCH (21:00)
[2020-10-22] MEDS ORDERED: fluvoxaMINE MALEATE 50 MG TAB PO SCH (21:00)
[2020-10-23] MEDS ORDERED: INSULIN ASPART 100 UNITS/ML 3 ML PEN SC SCH
[2020-10-23] MEDS ORDERED: INSULIN ASPART 100 UNITS/ML 3 ML PEN SC ONE (02:00)
[2020-10-23] MEDS: LEVOTHYROXINE SODIUM 88 MCG TABLET PO SCH (06:10)
[2020-10-23] MEDS: ACETAMINOPHEN 325 MG TAB PO PRN ×2 (06:22→16:18)
[2020-10-23] MEDS ORDERED: LEVOTHYROXINE SODIUM 88 MCG TABLET PO SCH (06:30)
--- NOTE | 2020-10-23 06:33 | Hospitalist Progress Note ---
Date of Service October 23, 2020 Assessment & Plan (1) Acute non-ST elevation myocardial infarction (NSTEMI): Plan: 60yo female with a complex PMH most notable for poorly-controlled IDDM2, HTN, and HLD presents with a one-day history of chest pain. NSTEMI Troponin on arrival 1.3, peaked at 3.8. ECG without acute conduction/repolarization abnormalities. Substernal CP unrelieved by nitro. S/P PCI on 10/22 with placement of CHANTAL in LAD (99% proximal LAD, 75% mid-LAD occlusion) Continue DAPT: ASA, Ticagrelor Continue metoprolol, ACEI Continue high-dose simvastatin Nitro p.r.n. Increase activity throughout today DM2 HbA1c >16.9% (04/2020), repeat A1c pending Patient's home regimen held on admission Glycemic consult placed --> continue insulin gtt, determine needs for new outpatient regimen HTN BP well-controlled at this time Continue metoprolol, lisinopril, spironolactone Would consider d/c of spironolactone first if BP becomes fragile HLD Continue fibrates Continue high-dose simvastatin Hypothyroidism Continue levothyroxine MDD, AKASH Continue fluvoxamine, buspar, klonopin Nicotine dependence Patient is current ~1ppd smoker Consider nicotine replacement therapy if patient requests Counselling provided FEN: carb-consistent, heart-healthy diet Code status: DNI (compressions/defibrillation are okay) DVT ppx: Lovenox Held home meds: dapagliflozin Consults: cardiology PT/OT: ordered Dispo: PCU telemetry, anticipate d/c tomorrow Admission and Anticipated Discharge Date Admission Date: October 22, 2020 Supervising Physician Co-Signing Physician Notes I also saw the patient with the resident physician and confirmed real portions of the history and physical examination. Exam Upon our exam, the patient was lying supine in bed. She had no complaints at present. 94/64, 78, 18, 36.6, 97% on room air Heart is regular rate and rhythm. Lungs are clear with nonlabored respirations. Data HgB 11.4, platelet count 266 Sodium 135, potassium 4.5, BUN 17, creatinine 1.17 Hemoglobin A1c 15.8% Assessment and Plan I agree with the assessment and plan in the resident documentation Acute non-ST elevation myocardial infarction, status post drug-eluting stent into proximal LAD Continue dual antiplatelet therapy, beta-elizabeth, ELHAM inhibitor Agree with changing simvastatin 40 to atorvastatin 80 mg Uncontrolled diabetes Glycemic consult Diabetes education Tobacco abuse Extensive counseling Additional diagnoses per resident documentation Subjective NAEO. Minimal chest comfort and SOB this AM. Reports feeling well overall. No belly pain. Appetite good. Urinating OK, no issues. We did spend extensive time discussing pathogenesis of her NSTEMI and she seems motivated to make a lifestyle change to prevent this from happening again in the future. Review of Systems Review of Systems: as per HPI Physical Exam Physical Exam: General: 60-year-old female who is relaxed in her hospital bed, NAD. HEENT: NCAT. Eyes - Sclera are white, anicteric, and without injection. Mouth - MMM with no tonsillar edema or exudates. Cardiac: Normal rate and regular rhythm; S1 and S2 present with no murmurs, rubs, or gallops. Pulmonary: Good respiratory effort with symmetric expansion of the chest. No use of accessory muscles. Lungs were clear to auscultation bilaterally with no crackles or wheezes. Abdominal: Normoactive bowel sounds. Abdomen was soft, nondistended, and non- tender to palpation. Extremities: Upper and lower extremities are warm and well perfused. Capillary refill assessed in UE was < 3 sec. Psych: Well-developed, well-nourished, appropriately dressed for occasion. Behavior is cooperative and appropriate. Affect is WNL. Insight is appropriate. Results & Data Results & Data ([facility]) Vital Signs (Past 12 Hours) Vital Signs Temp Pulse Pulse Resp BP Pulse Ox 10/23/20 03:53 36.7 C 71 18 103/70 99 10/23/20 01:25 82 10/23/20 00:10 36.9 C 82 18 110/74 97 10/22/20 19:36 36.9 C 82 18 109/70 97 Resident Activity Tracking Resident Involvement: Resident Care Provided Care Provided: Adult Hospital Medicine
[2020-10-23] MEDS: SODIUM CHLORIDE 0.9% 1000ML 1,000 ML IV SCH ×2 (07:31→14:09)
[2020-10-23 07:38] LABS: Basophils # (auto) 0.02 K/uL (0-0.2); Basophils % (auto) 0.2 %; Eosinophils # (auto) 0.39 K/uL (0-0.5); Eosinophils % (auto) 4.4 %; Hematocrit (blood only) 34.6 % (37-47); Hemoglobin 11.4 g/dL (12.0-16.0); Immature Granulocytes # (auto) 0.03 K/uL (0.00-0.02); Immature Granulocytes % (auto) 0.3 %; Lymphocytes % (auto) 28.5 %; Mean Corpuscular Hemoglobin 28.7 pg (25-34); Mean Corpuscular Hgb Conc 32.9 g/dL (32-36); Mean Corpuscular Volume 87.2 fL (80-100); Mean Platelet Volume 10.5 fL (7.4-10.4); Monocytes # (auto) 0.48 K/uL (0.11-0.59); Monocytes % (auto) 5.5 %; Neutrophils # (auto) 5.35 K/uL (1.4-6.5); Neutrophils % (auto) 61.1 %; Platelet Count 266 K/uL (130-400); RDW Coefficient of Variation 13.4 % (11.5-14.5); RDW Standard Deviation 43.1 fL (36.4-46.3); Red Blood Count 3.97 M/uL (4.2-5.4); White Blood Count 8.77 K/uL (4.8-10.8)
[2020-10-23 07:58] LABS: BUN Creatinine Ratio 14.2 (10-20); Calcium 8.5 mg/dl (8.5-10.1); Creatinine Clr Calc Pharmacy 54.6 ml/min; Est GFR (African American) 58.2 ml/min; Est GFR (Non-African American) 50.3 ml/min; Potassium 4.5 mmol/L (3.5-5.1)
[2020-10-23] MEDS: ATORVASTATIN 40 MG TAB PO SCH (08:06)
[2020-10-23] MEDS: busPIRone 5 MG TAB PO SCH ×3 (08:06→20:00)
[2020-10-23] MEDS: INSULIN ASPART 100 UNITS/ML 3 ML PEN SC SCH ×5 (08:07→23:46)
[2020-10-23] MEDS: ASPIRIN 81 MG ECTAB PO SCH (08:07)
[2020-10-23] MEDS: TICAGRELOR 90 MG TAB PO SCH ×2 (08:07→20:00)
[2020-10-23] MEDS: gemfibroziL 600 MG TAB PO SCH ×2 (08:07→19:59)
[2020-10-23] MEDS: clonazePAM 0.5 MG TAB PO SCH (08:13)
[2020-10-23] MEDS: METOPROLOL TARTRATE 25 MG TAB PO SCH ×2 (08:16→19:59)
--- NOTE | 2020-10-23 08:34 | Electrocardiogram Report ---
Test Reason : Blood Pressure : / mmHG Vent. Rate : 088 BPM Atrial Rate : 088 BPM P-R Int : 156 ms QRS Dur : 082 ms QT Int : 388 ms P-R-T Axes : 050 053 060 degrees QTc Int : 469 ms Normal sinus rhythm Left atrial enlargement Low voltage QRS Abnormal ECG When compared with ECG of 16-OCT-2020 20:56, QT has lengthened Confirmed by Garcia Harris ([id number]) on 10/23/2020 8:33:39 AM Referred By: REFERRED SELF Confirmed By:Garcia Harris
--- NOTE | 2020-10-23 08:36 | Electrocardiogram Report ---
Test Reason : Blood Pressure : / mmHG Vent. Rate : 079 BPM Atrial Rate : 079 BPM P-R Int : 164 ms QRS Dur : 074 ms QT Int : 406 ms P-R-T Axes : 033 037 051 degrees QTc Int : 465 ms Normal sinus rhythm Low voltage QRS Borderline ECG When compared with ECG of 22-OCT-2020 07:55, No significant change was found Confirmed by Garcia Harris ([id number]) on 10/23/2020 8:36:12 AM Referred By: REFERRED SELF Confirmed By:Garcia Harris
--- NOTE | 2020-10-23 08:42 | Electrocardiogram Report ---
Test Reason : Blood Pressure : / mmHG Vent. Rate : 091 BPM Atrial Rate : 091 BPM P-R Int : 152 ms QRS Dur : 076 ms QT Int : 372 ms P-R-T Axes : 046 061 059 degrees QTc Int : 457 ms Normal sinus rhythm Low voltage QRS Borderline ECG When compared with ECG of 22-OCT-2020 09:17, No significant change was found Confirmed by Garcia Harris ([id number]) on 10/23/2020 8:41:37 AM Referred By: REFERRED SELF Confirmed By:Garcia Harris
--- NOTE | 2020-10-23 08:46 | Electrocardiogram Report ---
Test Reason : Blood Pressure : / mmHG Vent. Rate : 079 BPM Atrial Rate : 079 BPM P-R Int : 154 ms QRS Dur : 080 ms QT Int : 388 ms P-R-T Axes : 041 055 048 degrees QTc Int : 444 ms Normal sinus rhythm Normal ECG When compared with ECG of 22-OCT-2020 11:33, No significant change was found Confirmed by Garcia Harris ([id number]) on 10/23/2020 8:45:44 AM Referred By: REFERRED SELF Confirmed By:Garcia Harris
[2020-10-23] MEDS ORDERED: ASPIRIN 81 MG ECTAB PO SCH (09:00)
[2020-10-23] MEDS ORDERED: INSULIN GLARGINE SOLOSTAR 100 UNITS/ML 3 ML PEN SC ONE (09:00)
[2020-10-23] MEDS ORDERED: SPIRONOLACTONE 25 MG TAB PO SCH (09:00)
--- NOTE | 2020-10-23 11:39 | Cardiology Progress Note ---
Date of Service October 23, 2020 Assessment & Plan (1) Acute non-ST elevation myocardial infarction (NSTEMI): (2) Status post insertion of drug-eluting stent into left anterior descending (LAD) artery: (3) CAD (coronary artery disease): Plan: Patient doing well after drug-eluting stent x2 LAD yesterday. Remaining vessels with no significant disease (luminal irregularities only) Hemodynamics favorable. Continue dual platelet therapy (aspirin/ticagrelor). Increase activity. Counseling on risk factor management (as below). It has been less than 24 hours since her intervention, would continue counseling and increase activity, likely discharge home tomorrow. (4) Diabetes type 2, uncontrolled: Plan: Hemoglobin A1c on measurably high. Counseled on importance of medical management (5) Tobacco abuse: Plan: Counseled on importance of smoking cessation. Admission and Anticipated Discharge Date Admission Date: October 22, 2020 Subjective Uneventful night, patient slept well. No chest pain, dyspnea, or other complaints. She was up and able to walk the hallways with assistance earlier today. Rhythm was sinus in the 70-90 bpm range, 110 beat run of ventricular tachycardia last evening (asymptomatic). Physical Exam Physical Exam: Patient appears comfortable. BP normotensive. Pulse 64 bpm and regular. Skin: no ecchymoses or generalized lesions. HEENT: unremarkable. Neck: no JVD or carotid bruits. Lungs: clear. Cardiac: regular rhythm, no murmur or gallop. Abdomen: benign. Extremities: Right radial access site benign. Lower extremities with no edema, pulses intact. Neurologic: normal affect, nonfocal. Results & Data ([facility]) Laboratory Results Hemoglobin 11.4 with normal white count and platelet count. Sodium 135 with otherwise normal electrolytes, BUN 17, creatinine 1.17. Troponin 3.79 last evening (up from 1.87). PG Care Time/CCT Total # of Minutes Spent Total Time Spent with Patient: Total time spent is greater than 50% in coordination of care (as documented) at patient's floor/unit and/or counseling patient: Coding Level of Care Code 09189 Subseq Hosp Care Lvl 3 Diagnoses Acute non-ST elevation myocardial infarction (NSTEMI) I21.4 CAD (coronary artery disease) I25.10 Status post insertion of drug-eluting stent into left anterior descending (LAD) artery Z95.5 Diabetes type 2, uncontrolled E11.65 Tobacco abuse Z72.0
[2020-10-23] MEDS: lisinopril 40 MG TAB PO SCH (11:58)
[2020-10-23] MEDS: ENOXAPARIN INJ 60 MG/0.6 ML SYR SQ SCH (11:58)
[2020-10-23] MEDS ORDERED: INSULIN HUMAN REGULAR PER UNIT 6 UNITS in SYRINGE 5.94 ML IV ONE (12:00)
[2020-10-23] MEDS ORDERED: MELATONIN 3 MG TAB PO PRN (13:23)
[2020-10-23 14:03] LABS: Estimated Average Glucose 407 mg/dl; Hemoglobin A1C 15.8 % (4.5-5.6)
--- NOTE | 2020-10-23 15:59 | Pharmacy Report ---
Pharmacy Glycemic Short Note 2 - Date of Service October 23, 2020 - Glycemic Short BSG Results (Last 24 hours): 10/22/20 10/22/20 10/22/20 16:03 18:18 19:32 Glucose POC Glucose 197 H 270 H 236 H 10/22/20 10/23/20 10/23/20 21:09 01:52 06:58 Glucose 231 H POC Glucose 181 H 212 H 10/23/20 10/23/20 10/23/20 07:07 11:22 11:23 Glucose POC Glucose 237 H 330 H* 318 H* OUTPATIENT ANTIDIABETIC REGIMEN: * Lantus 40 units HS * Novolog ~14 units with meals * Faxiga 10 mg qAM ASSESSMENT: 10/23 * BSG corrected quickly on IV insulin infusion. Patient transitioned off IV insulin infusion last evening. * Fasting BSG = 237 mg/dL. Will give additional 10 units of Lantus this am for total dose of 60 units today. * Post prandial hyperglycemia noted. Will tighten CF and CR and lower goal range. * One time dose of regular IV insulin 6 units given with lunch (for BSG 318 mg/dL) 10/22 * Ms Lua is a 60 y/o F with a PMH of poorly controlled T2DM who presents with NSTEMI. Patient underwent cardiac catheterization. * Discussed situation with Dr Chavez and Dr Hinojosa. * Start insulin infusion with higher goal range of 150-250 mg/dL. PLAN FOR INPATIENT GLYCEMIC CONTROL: Basal * Lantus 10 units SQ this AM * Lantus 50 units SQ daily with dinner Bolus * Novolog ACHS * Correction factor: 12 mg/dl/unit * Carb ratio: 1 units for every 4 grams CHO * Add overnight checks PLAN FOR DISCHARGE: * TBD
[2020-10-23] MEDS ORDERED: INSULIN GLARGINE SOLOSTAR 100 UNITS/ML 3 ML PEN SC SCH (16:30)
[2020-10-23] MEDS: fluvoxaMINE MALEATE 50 MG TAB PO SCH (19:59)
[2020-10-24] MEDS: INSULIN ASPART 100 UNITS/ML 3 ML PEN SC SCH ×5 (04:14→20:43)
[2020-10-24] MEDS: ACETAMINOPHEN 325 MG TAB PO PRN ×2 (04:21→22:44)
[2020-10-24] MEDS: LEVOTHYROXINE SODIUM 88 MCG TABLET PO SCH (06:03)
[2020-10-24 06:33] LABS: Basophils # (auto) 0.02 K/uL (0-0.2); Basophils % (auto) 0.2 %; Eosinophils % (auto) 4.7 %; Hemoglobin 11.2 g/dL (12.0-16.0); Immature Granulocytes # (auto) 0.05 K/uL (0.00-0.02); Immature Granulocytes % (auto) 0.6 %; Lymphocytes # (auto) 2.19 K/uL (1.2-3.4); Lymphocytes % (auto) 25.5 %; Mean Corpuscular Hemoglobin 28.1 pg (25-34); Mean Corpuscular Hgb Conc 32.9 g/dL (32-36); Mean Corpuscular Volume 85.4 fL (80-100); Mean Platelet Volume 10.6 fL (7.4-10.4); Monocytes % (auto) 8.1 %; Neutrophils # (auto) 5.24 K/uL (1.4-6.5); Neutrophils % (auto) 60.9 %; Platelet Count 240 K/uL (130-400); RDW Coefficient of Variation 13.6 % (11.5-14.5); RDW Standard Deviation 41.9 fL (36.4-46.3); Red Blood Count 3.98 M/uL (4.2-5.4)
--- NOTE | 2020-10-24 06:59 | Discharge Summary ---
Date of Service October 24, 2020 Admission HPI Per Admitting Provider 60yo female with HTN, HLD, poorly-controlled IDDM2, obesity, tobacco use, postmenopausal bleeding, MDD, AKASH, and hypothyroidism presents with chest pain. Patient's chest pain started last night and worsened to 7/10 pain over the course of about an hour, and has stayed at that level since. Patient was unable to sleep due to pain. Patient's chest pain is worst on the right side of her chest, and occasionally radiates straight through to her back. Pain worsens with exertion. No worsening of pain with deep breaths. Patient has intermittent nausea and SOB as well. In the ED, pain was unrelieved by nitro. Denies fever, chills, vomiting, diarrhea, lightheadedness, dizziness, syncope, or other symptoms. Beyond HTN and HLD, patient has no cardiac history. Patient has a recent history of postmenopausal bleeding that is in the process of being worked up by her driller hand, with a D&C planned for the near future. Patient's IDDM2 is very poorly controlled and has been worsening for years - patient has been resistant to any increases in her insulin regimen. Most recent A1c (04/2020) was too high to be accurately measured (>16.9%). Admission Exam Per Admitting Provider Constitutional: anxious-appearing, no acute distress HEENT: NCAT, no conjunctival injection CV: regular rhythm, no murmur appreciated Resp: mild end-expiratory wheezes bilaterally GI: soft, nontender, nondistended MSK: no chest wall tenderness Neuro: AOx4, no focal neurological deficits appreciated Psych: emotionally labile ranging from calm to tearful to angry, thought process rigid but redirectable Principal Diagnosis NSTEMI Uncontrolled ID-DM2 Discharge Exam General: 60-year-old female who is relaxed in her hospital bed, NAD. HEENT: NCAT. Eyes - Sclera are white, anicteric, and without injection. Mouth - MMM with no tonsillar edema or exudates. Cardiac: Normal rate and regular rhythm; S1 and S2 present with no murmurs, rubs, or gallops. Pulmonary: Good respiratory effort with symmetric expansion of the chest. No use of accessory muscles. Lungs were clear to auscultation bilaterally with no crackles or wheezes. Abdominal: Normoactive bowel sounds. Abdomen was soft, nondistended, and non- tender to palpation. Extremities: Upper and lower extremities are warm and well perfused. Capillary refill assessed in UE was < 3 sec. Psych: Well-developed, well-nourished, appropriately dressed for occasion. Behavior is cooperative and appropriate. Affect is WNL. Insight is appropriate. Discharge Data Allergies Allergy/AdvReac Type Severity Reaction Status Date / Time albiglutide [From Tanzeum] AdvReac Unknown Verified 10/22/20 09:30 dulaglutide [From Trulicity] AdvReac Unknown Verified 10/22/20 09:30 Consultations 10/22/20 09:25 ED Decision to Admit Stat 10/22/20 09:56 Consult Cardiology Stat: Dr. Garcia Harris (10/23) "Assessment & Plan (1) Acute non-ST elevation myocardial infarction (NSTEMI): (2) Status post insertion of drug-eluting stent into left anterior descending (LAD) artery: (3) CAD (coronary artery disease): Plan: Patient doing well after drug-eluting stent x2 LAD yesterday. Remaining vessels with no significant disease (luminal irregularities only) Hemodynamics favorable. Continue dual platelet therapy (aspirin/ticagrelor). Increase activity. Counseling on risk factor management (as below). It has been less than 24 hours since her intervention, would continue counseling and increase activity, likely discharge home tomorrow. (4) Diabetes type 2, uncontrolled: Plan: Hemoglobin A1c on measurably high. Counseled on importance of medical management (5) Tobacco abuse: Plan: Counseled on importance of smoking cessation." 10/22/20 13:33 Consult Internal Medicine Routine Procedures Performed Operation Date: 10/22/20 12:30 Actual Procedures p Cath, Left with Cors and Vent - Efra Shin MD p Drug Eluting Stent SGl Vessel - Efra Shin MD Ordered Studies 10/22/20 12:32 CL Cath Imgs for PACS use only Stat Hospital Course (1) Acute non-ST elevation myocardial infarction (NSTEMI): 60yo female with a complex PMH most notable for poorly-controlled IDDM2, HTN, and HLD presents with a one-day history of chest pain, subsequently found to have NSTEMI - s/p PCI and CHANTAL placement within LAD. NSTEMI Troponin on arrival 1.3, peaked at 3.8. ECG without acute conduction/repolarization abnormalities. Substernal CP unrelieved by nitro. S/P PCI on 10/22 with placement of CHANTAL in LAD (99% proximal LAD, 75% mid-LAD occlusion) Continue DAPT: ASA, Ticagrelor upon discharge Continue metoprolol, lisinopril Continue atorvastatin 80mg daily Nitro p.r.n. Recommend cardiac rehabilitation following discharge Will require outpatient cardiology f/u DM2 HbA1c >16.9% (04/2020), repeat A1c (10/23): 15.8% Glycemic consult placed during admission: ---- Basal: Lantus 60U daily (qAM) Bolus: NovoLog 20U qAC (t.i.d.) ---- Follows with Dr. Massey at [facility] [place] Endocrinology -- will require close f/u on d/c Consult Diabetes Education (prior to d/c) Continue home medications on discharge HTN BP well-controlled at this time Continue metoprolol, lisinopril Held spironolactone prior to discharge given c/f softer pressures -- would recommend intensive outpatient monitoring of BP, and - if appropriate - resuming spironolactone (12.5 or 25mg daily) HLD Continue fibrates Continue high-dose atorvastatin Hypothyroidism Continue levothyroxine MDD, KAASH Continue fluvoxamine, buspar, klonopin Nicotine dependence Patient is current ~1ppd smoker Consider nicotine replacement therapy if patient requests Counselling provided FEN: carb-consistent, heart-healthy diet Code status: DNI (compressions/defibrillation are okay) DVT ppx: Lovenox Held home meds: dapagliflozin Consults: cardiology PT/OT: ordered Dispo: PCU telemetry, anticipate d/c tomorrow Discharge Plan Discharge Items Patient Disposition: Home - Self-Care Reason For Visit: NSTEMI Discharge Diagnosis: NSTEMI uncontrolled ID-DM2 Activity: Per Instructions section Non-emergency contact: Primary Care Provider Call non-emergency contact if: you have any medication questions, your symptoms worsen, your pain is unusual for you and your temperature is above 101 Follow-up/Referrals: Prashant Pina III, MD [Primary Care Provider] - Diet: Carb Consistent or DM2 and Heart Healthy Addtl Attending Provider Instructions: You were seen in [facility] for evaluation of chest pain. Upon your arrival here, you underwent several tests to determine the cause of this pain. These tests revealed evidence of a heart attack. You underwent immediate catheterization (a procedure in which the heart arteries reviewed under x-ray, and opened using a stent at points of blockage) by cardiology. Ian nkfully, you demonstrated great response to this. You were started on medications to help preserve heart function. Also during her time here, we spent significant time discussing risk factors that led to this pointnotably, smoking, dietary contributions, and diabetes. Labs obtained while you are here demonstrate that your diabetes is going to require intensive control as an outpatient. We consulted our pharmacy experts to help get you started on a new insulin regimen prior to discharge. It is going to be critically important that you follow-up with your primary care physician within 1 week to review this new regimen and ensure that your questions are answered. Your new insulin regimen is: LANTUS 60U daily (at night) NOVOLOG 20U, three times daily, before meals * Continue also taking your home ORAL medications Upon discharge, please begin taking metoprolol, lisinopril as outlined below. Please continue taking your other medications as prescribed, including the simvastatin. Upon discharge from the hospital, please follow-up with your primary care physician within 1 week to review this visit. We also request that you set up an appointment with cardiology and manipulator operator. In the interim, if you experience any worsening chest pain, shortness of breath, pain that radiates from your chest your arms or up to your face, lightheadedness, dizziness, or other worrisome symptoms, please report to the ER immediately for evaluation. It was a pleasure for caring for you while you were here, we wish you all the best in your recovery. Pending Studies at Discharge: No Stand-Alone Forms: [facility] [employer], Smoking Cessation Medications and DC Order Prescriptions: No Action gemfibrozil 600 mg tablet 600 mg PO BID Qty: 60 RF: 11 (DME) pen needle, diabetic [BD Ultra-Fine Cary Pen Needle] 32 gauge x 5/32" needle See Dose Instructions .ROUTE .MEDSUPPLY Qty: 200 RF: 11 simvastatin 40 mg tablet 40 mg PO HS Qty: 30 RF: 5 metoprolol tartrate 25 mg tablet 25 mg PO BID Qty: 180 RF: 1 clonazepam [Klonopin] 0.5 mg tablet 0.5 mg PO QAM Qty: 30 RF: 0 (DME) blood-glucose meter [Prodigy Autocode Meter] Kit See Rx Instructions .ROUTE .MEDSUPPLY Qty: 1 RF: 0 Lantus Solostar U-100 Insulin 100 unit/mL (3 mL) insulin pen 40 unit SQ HS RF: 0 clobetasol 0.05 % ointment 1 applic topical .COMPLEX Qty: 30 RF: 0 buspirone 10 mg tablet 10 mg PO TID Qty: 90 RF: 11 fluvoxamine 50 mg tablet 50 mg PO HS RF: 0 insulin aspart U-100 [Novolog Flexpen U-100 Insulin] 100 unit/mL (3 mL) insulin pen 20 unit SQ TIDM RF: 0 (DME) OneTouch Verio test strips Strip See Rx Instructions .ROUTE .MEDSUPPLY RF: 0 aspirin 81 mg tablet,delayed release (DR/EC) 81 mg PO QAM RF: 0 spironolactone [Aldactone] 25 mg tablet 25 mg PO QAM RF: 0 levothyroxine 88 mcg tablet 88 mcg PO DAILYBB RF: 0 lisinopril 40 mg tablet 40 mg PO QAM RF: 0 cephalexin 500 mg capsule 500 mg PO TID 7 Days Qty: 21 RF: 0 Farxiga 10 mg tablet 10 mg PO QAM RF: 0 Krames/Other Patient Handouts: Heart Attack Dc, Heart Attack: Leaving the Hospital, Heart Attack: Back at Home Admission Data Admit Date/Time: 10/22/20 14:36 Attending Provider: Ivan Patel Admit Provider: Harvey Andrade Primary Care Provider: Prashant Pina III Other Providers: Harvey Andrade ; Rob Alberto ; Demetrius Fair Resident Activity Tracking Resident Involvement: Resident Care Provided Care Provided: Adult Hospital Medicine
[2020-10-24 07:09] LABS: BUN Creatinine Ratio 18.4 (10-20); Calcium 8.6 mg/dl (8.5-10.1); Est GFR (African American) 57.6 ml/min; Est GFR (Non-African American) 49.7 ml/min; Potassium 4.4 mmol/L (3.5-5.1)
[2020-10-24] MEDS: lisinopril 40 MG TAB PO SCH (08:20)
[2020-10-24] MEDS: gemfibroziL 600 MG TAB PO SCH ×2 (08:20→20:42)
[2020-10-24] MEDS: TICAGRELOR 90 MG TAB PO SCH ×2 (08:21→20:42)
[2020-10-24] MEDS: METOPROLOL TARTRATE 25 MG TAB PO SCH ×2 (08:21→20:42)
[2020-10-24] MEDS: ASPIRIN 81 MG ECTAB PO SCH (08:22)
[2020-10-24] MEDS: ATORVASTATIN 40 MG TAB PO SCH (08:22)
[2020-10-24] MEDS: busPIRone 5 MG TAB PO SCH ×3 (08:22→20:41)
[2020-10-24] MEDS: ENOXAPARIN INJ 60 MG/0.6 ML SYR SQ SCH (08:22)
[2020-10-24] MEDS: clonazePAM 0.5 MG TAB PO SCH (08:23)
[2020-10-24] MEDS ORDERED: INSULIN GLARGINE SOLOSTAR 100 UNITS/ML 3 ML PEN SC SCH (09:00)
[2020-10-24] MEDS ORDERED: SPIRONOLACTONE 12.5 MG TAB PO SCH (09:00)
--- NOTE | 2020-10-24 09:33 | Pharmacy Report ---
Pharmacy Glycemic Short Note 2 - Date of Service October 24, 2020 - Glycemic Short BSG Results (Last 24 hours): 10/23/20 10/23/20 10/23/20 11:22 11:23 16:06 Glucose POC Glucose 330 H* 318 H* 157 H 10/23/20 10/23/20 10/24/20 20:07 23:41 03:57 Glucose POC Glucose 171 H 195 H 187 H 10/24/20 10/24/20 05:54 07:04 Glucose 176 H POC Glucose 193 H OUTPATIENT ANTIDIABETIC REGIMEN: * Lantus 40 units HS * Novolog ~14 units with meals * Faxiga 10 mg qAM ASSESSMENT: 10/24 * Pt has received 117 units of insulin over the past 24hrs * 60 units of basal with Lantus * 57 units of bolus with NovoLog * BSGs still elevated despite increasing TDD of insulin 10/23. Additional TDD increase warranted today but patient is to DC home. * Pt follows with Dr Massey at [facility]. She was just seen 07/26/20 and he added Farxiga. He agrees that she needs insulin (probably 100+ units/day) but she has major anxiety about highs/lows and giving insulin. She needs [facility] which he tried to set her up with through [facility]. * Recommending continuing ~ 120 units/day for discharge since this dosing yielded decent BSGs (none >300 or less than 70). Causing a low or severe high will only increase anxiety and decrease compliance. 10/23 * BSG corrected quickly on IV insulin infusion. Patient transitioned off IV insulin infusion last evening. * Fasting BSG = 237 mg/dL. Will give additional 10 units of Lantus this am for total dose of 60 units today. * Post prandial hyperglycemia noted. Will tighten CF and CR and lower goal range. * One time dose of regular IV insulin 6 units given with lunch (for BSG 318 mg/dL) 10/22 * Ms Lua is a 60 y/o F with a PMH of poorly controlled T2DM who presents with NSTEMI. Patient underwent cardiac catheterization. * Discussed situation with Dr Chavez and Dr Hinojosa. * Start insulin infusion with higher goal range of 150-250 mg/dL. PLAN FOR INPATIENT GLYCEMIC CONTROL: Basal * Lantus 10 units SQ this AM * Lantus 50 units SQ daily with dinner Bolus * Novolog ACHS * Correction factor: 12 mg/dl/unit * Carb ratio: 1 units for every 4 grams CHO * Add overnight checks PLAN FOR DISCHARGE: * A1c is greater than or equal to 10% --> consider triple therapy with metformin + basal insulin + (GLP1-RA OR prandial insulin). May need to continue additional antidiabetic agent based on patient specific factors (efficacy, hypo risk, weight gain/loss, side effects, cost) * Continue Farixga 01mg PO QAM * Lantus 60 units SQ daily ( Pt will receive this dosing in house prior to DC) * NovoLog 20 units with meals 3 times per day. HOLD if meal is skipped. Support Patient Self-Management o Healthy Lifestyle (diet, exercise, and smoking cessation) o Disease self-management (SMBG) o Prevention of complications (BP, Lipid goals, Immunizations) o Consider outpatient Diabetes Self-Management Education & Support Most patients on multiple-dose insulin (MDI) should SMBG Prior to meals and snacks At bedtime Prior to exercise When they suspect low blood glucose After treating low blood glucose until they are normoglycemic Prior to critical tasks such as driving Occasionally postprandially
--- NOTE | 2020-10-24 10:47 | Hospitalist Progress Note ---
Date of Service October 24, 2020 Assessment & Plan (1) Acute non-ST elevation myocardial infarction (NSTEMI): Plan: 60yo female with a complex PMH most notable for poorly-controlled IDDM2, HTN, and HLD presents with a one-day history of chest pain, subsequently found to have NSTEMI - s/p PCI and CHANTAL placement within LAD. NSTEMI Troponin on arrival 1.3, peaked at 3.8. ECG without acute conduction/repolarization abnormalities. Substernal CP unrelieved by nitro. S/P PCI on 10/22 with placement of CHANTAL in LAD (99% proximal LAD, 75% mid-LAD occlusion) Continue DAPT: ASA, Ticagrelor upon discharge Continue metoprolol, lisinopril Continue atorvastatin 80mg daily Nitro p.r.n. Recommend cardiac rehabilitation following discharge Will require outpatient cardiology f/u DM2 HbA1c >16.9% (04/2020), repeat A1c (10/23): 15.8% Glycemic consult placed during admission: ---- Basal: Lantus 60U daily (qAM) Bolus: Anticipate at discharge: NovoLog 20U with meals, t.i.d. While here: NovoLog ACHS Correction factor: 12 mg/dl/unit Carb ratio: 1 units for every 4 grams CHO Add overnight checks ---- [place] [facility] [place] will require close f/u on d/c Consult Diabetes Education (prior to d/c) Continue home medications on discharge HTN BP well-controlled at this time Continue metoprolol, lisinopril Held spironolactone prior to discharge given c/f softer pressures -- would recommend intensive outpatient monitoring of BP, and - if appropriate - resuming spironolactone (12.5 or 25mg daily) HLD Continue fibrates Continue high-dose simvastatin Hypothyroidism Continue levothyroxine MDD, AKASH Continue fluvoxamine, buspar, klonopin Nicotine dependence Patient is current ~1ppd smoker Consider nicotine replacement therapy if patient requests Counselling provided FEN: carb-consistent, heart-healthy diet Code status: DNI (compressions/defibrillation are okay) DVT ppx: Lovenox Held home meds: dapagliflozin Consults: cardiology PT/OT: ordered Dispo: PCU telemetry, anticipate d/c tomorrow Admission and Anticipated Discharge Date Admission Date: October 22, 2020 Supervising Physician Co-Signing Physician Notes I also saw the patient with the resident physician and confirmed real portions of the history and physical examination. Exam Upon my exam, the patient was lying supine in bed. She had no complaints at present. 96/63, 71, 17, 36.6, 97% on room air Heart is regular rate and rhythm. Lungs are clear with nonlabored respirations. Data HgB 11.2, platelet count 240 Sodium 137, potassium 4.4, BUN 22, creatinine 1.18 Hemoglobin A1c 15.8% Assessment and Plan I agree with the assessment and plan in the resident documentation Acute non-ST elevation myocardial infarction, status post drug-eluting stent into proximal LAD Continue dual antiplatelet therapy, beta-elizabeth, ELHAM inhibitor, High intensity statin Increase activity today monitor for symptoms Dissipate discharge in a.m. Uncontrolled diabetes Glycemic consult Diabetes education today Tobacco abuse Extensive counseling Additional diagnoses per resident documentation Subjective No acute events overnight. At the bedside this morning, patient denies any further chest pain, palpitations, shortness of breath. Says she is feeling well overall. Nervous to leave the hospital because of concerns for having to manage medications on her own. Very eager to talk to the clinical systems educator. Good appetite. No nausea. Urinating okay. Review of Systems Review of Systems: as per HPI Physical Exam Physical Exam: General: 60-year-old female who is relaxed in her hospital bed, NAD. HEENT: NCAT. Eyes - Sclera are white, anicteric, and without injection. Mouth - MMM with no tonsillar edema or exudates. Cardiac: Normal rate and regular rhythm; S1 and S2 present with no murmurs, rubs, or gallops. Pulmonary: Good respiratory effort with symmetric expansion of the chest. No use of accessory muscles. Lungs were clear to auscultation bilaterally with no crackles or wheezes. Abdominal: Normoactive bowel sounds. Abdomen was soft, nondistended, and non- tender to palpation. Extremities: Upper and lower extremities are warm and well perfused. Capillary refill assessed in UE was < 3 sec. Psych: Well-developed, well-nourished, appropriately dressed for occasion. Behavior is cooperative and appropriate. Affect is WNL. Insight is appropriate. Results & Data Results & Data ([facility]) Vital Signs (Past 12 Hours) Vital Signs Temp Pulse Resp BP Pulse Ox 10/24/20 07:02 36.6 C 72 19 92/61 L 96 10/24/20 04:08 36.5 C 67 18 101/66 97 10/23/20 23:02 36.5 C 69 16 91/56 L 95 Resident Activity Tracking Resident Involvement: Resident Care Provided Care Provided: Adult Hospital Medicine
[2020-10-24] MEDS ORDERED: INSULIN GLARGINE SOLOSTAR 100 UNITS/ML 3 ML PEN SC ONE (14:15)
--- NOTE | 2020-10-24 15:45 | Cardiology Progress Note ---
Date of Service October 24, 2020 Assessment & Plan (1) Acute non-ST elevation myocardial infarction (NSTEMI): (2) Status post insertion of drug-eluting stent into left anterior descending (LAD) artery: (3) CAD (coronary artery disease): Plan: With no recurrence of her index symptoms. Ambulatory without exertional symptoms. Blood pressure is relatively low, but no significant dizziness or lightheadedness. At this point will continue her on beta-blockade, Lemuel inhibition, spironolactone, gemfibrozil, dual anti-platelet therapy with aspirin and Brilinta and high-dose atorvastatin. No evident complication from her procedure. Right radial site looks good. I think she could be safely discharged tomorrow in the absence of new symptoms. Will place a consult for cardiac rehab. She does live quite far away but may want to attend at least 1 session. (4) Diabetes type 2, uncontrolled: (5) Tobacco abuse: Plan: Counseled on importance of smoking cessation. Admission and Anticipated Discharge Date Admission Date: October 22, 2020 Subjective This 69 the patient reported some rumbling in her abdomen. This is not reminiscent of her presenting symptoms. She has not had recurrence of her presenting discomfort. No breathing difficulty. She has been ambulatory with physical therapy. Minimal dizziness or lightheadedness. No sense of palpitation. Review of Systems Review of Systems: Per HPI Physical Exam Physical Exam: She is alert and oriented x3. Mood affect appear normal. She answered all questions appropriately. HEENT: Sclerae are anicteric. Pupils are equal and reactive to light and accommodation. Extraocular movements were intact. Neuro: Cranial nerves intact Neck: Examination of the submandibular region did not reveal any significant lymphadenopathy. Carotids are palpable bilaterally and free of bruits on auscultation. There was no evidence of jugular venous distention. The thyroid was not enlarged. Lungs: Lungs are clear to auscultation bilaterally. There are no rales wheezes or rhonchi. She has normal respiratory effort without use of accessory muscles. There is normal pulmonary excursion. Cardiac: The rhythm was regular. S1 and S2 were normal. There are no murmurs on examination. The PMI was not markedly displaced on palpation. Abdomen: The abdomen was soft and nontender. Extremities: Good perfusion of the right hand. There is no evidence cyanosis or clubbing. There was no evidence of significant peripheral edema bilaterally. Skin: There are no rashes noted on examination today. Results & Data ([facility]) Vital Signs (Past 12 Hours) Vital Signs Temp Pulse Resp BP Pulse Ox 10/24/20 15:22 36.6 C 71 17 96/63 L 97 10/24/20 10:44 36.6 C 69 17 93/57 L 95 10/24/20 07:02 36.6 C 72 19 92/61 L 96 10/24/20 04:08 36.5 C 67 18 101/66 97 Laboratory Results Abnormal Lab Results 10/23/20 10/23/20 10/23/20 16:06 20:07 23:41 WBC RBC Hgb Hct MCV MCH MCHC RDW Std Deviation RDW Coeff of Umair Plt Count MPV Immature Gran % (Auto) Neut % (Auto) Lymph % (Auto) [place] % (Auto) Eos % (Auto) Baso % (Auto) Neut # (Auto) Lymph # (Auto) [place] # (Auto) Eos # (Auto) Baso # (Auto) Immature Gran # (Auto) Sodium Potassium Chloride Carbon Dioxide Anion Gap BUN Creatinine Est Cr Clr Drug Dosing Est GFR ( Amer) Est GFR (Non-Af Amer) BUN/Creatinine Ratio Glucose POC Glucose 157 H 171 H 195 H Calcium Triglycerides Cholesterol LDL Cholesterol, Calc VLDL Cholesterol, Calc HDL Cholesterol Cholesterol/HDL Ratio 10/24/20 10/24/20 10/24/20 03:57 05:54 05:54 WBC 8.60 RBC 3.98 L Hgb 11.2 L Hct 34.0 L MCV 85.4 MCH 28.1 MCHC 32.9 RDW Std Deviation 41.9 RDW Coeff of Umair 13.6 Plt Count 240 MPV 10.6 H Immature Gran % (Auto) 0.6 Neut % (Auto) 60.9 Lymph % (Auto) 25.5 [place] % (Auto) 8.1 Eos % (Auto) 4.7 Baso % (Auto) 0.2 Neut # (Auto) 5.24 Lymph # (Auto) 2.19 [place] # (Auto) 0.70 H Eos # (Auto) 0.40 Baso # (Auto) 0.02 Immature Gran # (Auto) 0.05 H Sodium 137 Potassium 4.4 Chloride 107 Carbon Dioxide 22 Anion Gap 8.0 BUN 22 H Creatinine 1.18 Est Cr Clr Drug Dosing 54.0 Est GFR ( Amer) 57.6 Est GFR (Non-Af Amer) 49.7 BUN/Creatinine Ratio 18.4 Glucose 176 H POC Glucose 187 H Calcium 8.6 Triglycerides 233 H Cholesterol 147 LDL Cholesterol, Calc 58 VLDL Cholesterol, Calc 47 HDL Cholesterol 42 Cholesterol/HDL Ratio 4 10/24/20 10/24/20 07:04 11:19 WBC RBC Hgb Hct MCV MCH MCHC RDW Std Deviation RDW Coeff of Umair Plt Count MPV Immature Gran % (Auto) Neut % (Auto) Lymph % (Auto) [place] % (Auto) Eos % (Auto) Baso % (Auto) Neut # (Auto) Lymph # (Auto) [place] # (Auto) Eos # (Auto) Baso # (Auto) Immature Gran # (Auto) Sodium Potassium Chloride Carbon Dioxide Anion Gap BUN Creatinine Est Cr Clr Drug Dosing Est GFR ( Amer) Est GFR (Non-Af Amer) BUN/Creatinine Ratio Glucose POC Glucose 193 H 351 H* Calcium Triglycerides Cholesterol LDL Cholesterol, Calc VLDL Cholesterol, Calc HDL Cholesterol Cholesterol/HDL Ratio Diagnostic Findings Echocardiogram obtained on 10/22/2020: Normal LV systolic function with ejection fraction of 60 65%. Mild LVH. Aortic valve sclerosis. No stenosis. PG Care Time/CCT Total # of Minutes Spent Total Time Spent with Patient: Total time spent is greater than 50% in coordination of care (as documented) at patient's floor/unit and/or counseling patient: Coding Level of Care Code 06481 Subseq Hosp Care Lvl 2 Diagnoses Acute non-ST elevation myocardial infarction (NSTEMI) I21.4 Status post insertion of drug-eluting stent into left anterior descending (LAD) artery Z95.5 CAD (coronary artery disease) I25.10 Diabetes type 2, uncontrolled E11.65 Tobacco abuse Z72.0
[2020-10-24] MEDS: fluvoxaMINE MALEATE 50 MG TAB PO SCH (20:42)
[2020-10-25] MEDS: LEVOTHYROXINE SODIUM 88 MCG TABLET PO SCH (05:40)
[2020-10-25] MEDS: INSULIN ASPART 100 UNITS/ML 3 ML PEN SC SCH ×2 (08:35→12:14)
[2020-10-25] MEDS: busPIRone 5 MG TAB PO SCH (08:37)
[2020-10-25] MEDS: METOPROLOL TARTRATE 25 MG TAB PO SCH (08:38)
[2020-10-25] MEDS: ATORVASTATIN 40 MG TAB PO SCH (08:38)
[2020-10-25] MEDS: gemfibroziL 600 MG TAB PO SCH (08:38)
[2020-10-25] MEDS: ASPIRIN 81 MG ECTAB PO SCH (08:38)
[2020-10-25] MEDS: TICAGRELOR 90 MG TAB PO SCH (08:38)
[2020-10-25] MEDS: lisinopril 40 MG TAB PO SCH (08:38)
[2020-10-25] MEDS: ENOXAPARIN INJ 60 MG/0.6 ML SYR SQ SCH (08:39)
[2020-10-25] MEDS: clonazePAM 0.5 MG TAB PO SCH (08:45)
[2020-10-25] MEDS ORDERED: INSULIN GLARGINE SOLOSTAR 100 UNITS/ML 3 ML PEN SC SCH (09:00)
--- NOTE | 2020-10-25 12:16 | Discharge Summary ---
Date of Service October 25, 2020 Admission HPI Per Admitting Provider 60yo female with HTN, HLD, poorly-controlled IDDM2, obesity, tobacco use, postmenopausal bleeding, MDD, AKASH, and hypothyroidism presents with chest pain. Patient's chest pain started last night and worsened to 7/10 pain over the course of about an hour, and has stayed at that level since. Patient was unable to sleep due to pain. Patient's chest pain is worst on the right side of her chest, and occasionally radiates straight through to her back. Pain worsens with exertion. No worsening of pain with deep breaths. Patient has intermittent nausea and SOB as well. In the ED, pain was unrelieved by nitro. Denies fever, chills, vomiting, diarrhea, lightheadedness, dizziness, syncope, or other symptoms. Beyond HTN and HLD, patient has no cardiac history. Patient has a recent history of postmenopausal bleeding that is in the process of being worked up by her jointer machine operator, with a D&C planned for the near future. Patient's IDDM2 is very poorly controlled and has been worsening for years - patient has been resistant to any increases in her insulin regimen. Most recent A1c (04/2020) was too high to be accurately measured (>16.9%). Admission Exam Per Admitting Provider Constitutional: anxious-appearing, no acute distress HEENT: NCAT, no conjunctival injection CV: regular rhythm, no murmur appreciated Resp: mild end-expiratory wheezes bilaterally GI: soft, nontender, nondistended MSK: no chest wall tenderness Neuro: AOx4, no focal neurological deficits appreciated Psych: emotionally labile ranging from calm to tearful to angry, thought process rigid but redirectable Principal Diagnosis NSTEMI Discharge Exam Constitutional WD/WN, vitals as above + obese and cooperative Eyes + anicteric sclerae ENMT external ear and nose normal, oropharynx normal Neck normal visual inspection and trachea midline Respiratory normal respiratory effort, lungs clear to auscultation Cardiovascular RRR, no murmur, no edema Heart Sounds: normal S1 and normal S2 Gastrointestinal (Abdomen) normal bowel sounds, soft, nontender, no hepatosplenomegaly Musculoskeletal Head/Neck/Chest: normocephalic and head atraumatic Skin no rashes, warm and dry Neurologic moves all extremities Psychiatric A+Ox3, euthymic affect Discharge Data Allergies Allergy/AdvReac Type Severity Reaction Status Date / Time albiglutide [From Tanzeum] AdvReac Unknown Unknown Verified 10/24/20 18:27 dulaglutide [From Trulicity] AdvReac Unknown Unknown Verified 10/24/20 18:27 Consultations 10/22/20 09:25 ED Decision to Admit Stat 10/22/20 09:56 Consult Cardiology Stat 10/22/20 13:33 Consult Internal Medicine Routine 10/24/20 15:45 Consult Cardiac Rehabilitation Routine Procedures Performed Operation Date: 10/22/20 12:30 Actual Procedures p Cath, Left with Cors and Vent - Efra Shin MD p Drug Eluting Stent SGl Vessel - Efra Shin MD s Cineradiography w/Routine Exam - Efra Shin MD Ordered Studies 10/22/20 12:32 CL Cath Imgs for PACS use only Stat Diabetes Follow up Diabetes Follow-up Needed for HgbA1c >9% Hospital Course (1) Acute non-ST elevation myocardial infarction (NSTEMI): 60yo female with a complex PMH most notable for poorly-controlled IDDM2, HTN, and HLD presents with a one-day history of chest pain, subsequently found to have NSTEMI - s/p PCI and CHANTAL placement within LAD. NSTEMI Troponin on arrival 1.3, peaked at 3.8. ECG without acute conduction/repolarization abnormalities. Substernal CP unrelieved by nitro. S/P PCI on 10/22 with placement of CHANTAL in LAD (99% proximal LAD, 75% mid-LAD occlusion) Continue DAPT: ASA, Ticagrelor upon discharge Continue metoprolol, lisinopril Continue atorvastatin 80mg daily Nitro p.r.n. Recommend cardiac rehabilitation following discharge Will require outpatient cardiology f/u DM2 HbA1c >16.9% (04/2020), repeat A1c (10/23): 15.8% Glycemic consult placed during admission, the following changes were recommended for home insulin regimen ---- Basal: Increase Lantus to 45U daily (qAM) and increase by 5 units every 4-5 days until 60U are reached Bolus: NovoLog 20U qAC (t.i.d.) ---- Follows with Dr. Massey at [facility] [place] Endocrinology -- will require close f/u on d/c Diabetes Education was consulted during admission Continue home medications on discharge HTN BP well-controlled at this time Continue metoprolol, lisinopril Held spironolactone prior to discharge given c/f softer pressures -- would recommend intensive outpatient monitoring of BP, and - if appropriate - resuming spironolactone (12.5 or 25mg daily) HLD Continue fibrates Continue high-dose atorvastatin Hypothyroidism Continue levothyroxine MDD, AKASH Continue fluvoxamine, buspar, klonopin Nicotine dependence Patient is current ~1ppd smoker Recommend Cessation; consider nicotine replacement therapy if patient requests Counselling provided Total Time Total Time Spent Total Time Spent (In Minutes): 20 mins Discharge Plan Discharge Items Patient Disposition: Home - Self-Care Reason For Visit: NSTEMI Discharge Diagnosis: NSTEMI uncontrolled ID-DM2 Activity: Per Instructions section Non-emergency contact: Primary Care Provider Call non-emergency contact if: you have any medication questions, your symptoms worsen, your pain is unusual for you and your temperature is above 101 Follow-up/Referrals: Garcia Harris MD [Physician] - 10/31/20 9:00 am Prashant Pina III, MD [Primary Care Provider] - 10/27/20 3:30 pm (Please follow up with Dr. Pina on Friday10/27/20 at 3:30 pm. Please arrive to the office at 3:15 pm for your appointment. If you are unable to keep this appointment, please call the office to reschedule at [phone].) Diet: Carb Consistent or DM2 and Heart Healthy Addtl Attending Provider Instructions: You were seen in [facility] for evaluation of chest pain. Upon your arrival here, you underwent several tests to determine the cause of this pain. These tests revealed evidence of a heart attack. You underwent immediate catheterization (a procedure in which the heart arteries reviewed under x-ray, and opened using a stent at points of blockage) by cardiology. Thankfully, you demonstrated great response to this. You were started on medications to help preserve heart function. Also during her time here, we spent significant time discussing risk factors that led to this pointnotably, smoking, dietary contributions, and diabetes. Labs obtained while you are here demonstrate that your diabetes is going to require intensive control as an outpatient. We consulted our pharmacy experts to help get you started on a new insulin regimen prior to discharge. It is going to be critically important that you follow-up with your primary care physician within 1 week to review this new regimen and ensure that your questions are answered. Your new insulin regimen is: LANTUS 45U daily (at night); plan to increase your lantus dose by 5 units every 4-5 days. Stop when your reach 60 units. NOVOLOG 20U, three times daily, before meals * Continue also taking your home ORAL medications Upon discharge, please continue to take your Lisinopril 40mg daily and Aspirin 81mg daily. Please begin taking Brillinta 90mg twice daily, atorvastatin 80mg daily, and metoprolol 25mg twice daily. You may discontinue your simvastatin and spironolactone. Although this may seem like a lot of new medications, they work together to help reduce your risk of a recurrent heart attack. The atorvastatin is a high-intensity cholesterol lowering medication. The Aspirin and Plavix are both antiplatelet agents - they are essential to prevent blood clot formation around your newly placed stents. Metoprolol and lisinopril are blood pressure medications. This combination of medications has been found to effectively prevent elevated blood pressures after a heart attack. The higher your blood pressure, the harder your heart must work. We recommend you follow a heart healthy diet upon discharge and participate in cardiac rehab. Upon discharge from the hospital, please follow-up with your primary care physician within 1 week to review this visit. We also request that you set up an appointment with cardiology and signal integrity engineer. In the interim, if you experience any worsening chest pain, shortness of breath, pain that radiates from your chest your arms or up to your face, lightheadedness, dizziness, or other worrisome symptoms, please report to the ER immediately for evaluation. It was a pleasure for caring for you while you were here, we wish you all the best in your recovery. Pending Studies at Discharge: No Stand-Alone Forms: My Jumbas, Smoking Cessation Medications and DC Order Prescriptions: New atorvastatin 40 mg Tablet 80 mg PO QAM 30 Days Qty: 30 RF: 0 buspirone 5 mg Tablet 10 mg PO TID 30 Days Qty: 180 RF: 0 Brilinta 90 mg Tablet 90 mg PO BID 30 Days Qty: 60 RF: 0 Continued (DME) pen needle, diabetic [BD Ultra-Fine Cary Pen Needle] 32 gauge x 5/32" needle See Dose Instructions .ROUTE .MEDSUPPLY Qty: 200 RF: 11 clonazepam [Klonopin] 0.5 mg tablet 0.5 mg PO QAM Qty: 30 RF: 0 gemfibrozil 600 mg tablet 600 mg PO BID Qty: 60 RF: 11 buspirone 10 mg tablet 10 mg PO TID Qty: 90 RF: 11 (DME) blood-glucose meter [Prodigy Autocode Meter] Kit See Rx Instructions .ROUTE .MEDSUPPLY Qty: 1 RF: 0 clobetasol 0.05 % ointment 1 applic topical .COMPLEX Qty: 30 RF: 0 fluvoxamine 50 mg tablet 50 mg PO HS RF: 0 insulin aspart U-100 [Novolog Flexpen U-100 Insulin] 100 unit/mL (3 mL) insulin pen 20 unit SQ TIDM RF: 0 (DME) OneTouch Verio test strips Strip See Rx Instructions .ROUTE .MEDSUPPLY RF: 0 aspirin 81 mg tablet,delayed release (DR/EC) 81 mg PO QAM RF: 0 Farxiga 10 mg tablet 10 mg PO QAM RF: 0 metoprolol tartrate 25 mg tablet 25 mg PO BID 30 Days Qty: 180 RF: 1 levothyroxine 88 mcg tablet 88 mcg PO DAILYBB 30 Days Qty: 30 RF: 0 lisinopril 40 mg tablet 40 mg PO QAM 30 Days Qty: 30 RF: 0 Changed Lantus Solostar U-100 Insulin 100 unit/mL (3 mL) insulin pen 45 unit SQ HS 30 Days Qty: 0 RF: 0 Discontinued simvastatin 40 mg tablet 40 mg PO HS Qty: 30 RF: 5 spironolactone [Aldactone] 25 mg tablet 25 mg PO QAM RF: 0 cephalexin 500 mg capsule 500 mg PO TID 7 Days Qty: 21 RF: 0 Discharge Orders: Discharge Order (Routine); Ordered 10/25/20 Ordered By: Jaki Richardson/Other Patient Handouts: Heart Attack Dc, Heart Attack: Leaving the Hospital, Heart Attack: Back at Home Admission Data Admit Date/Time: 10/22/20 14:36 Attending Provider: Ivan Patel Admit Provider: Harvey Andrade Primary Care Provider: Prashant Pina III Other Providers: Rob Alberto ; Harvey Andrade ; Demetrius Fair Supervising Physician Co-Signing Physician Notes I also saw the patient with the resident physician and confirmed real portions of the history and physical examination. Exam Upon my exam, the patient is seated in bed. She had no complaints at present. 112/71, 67, 16, 36.6, 97% on room air Heart is regular rate and rhythm. Lungs are clear with nonlabored respirations. Assessment and Plan I agree with the assessment and plan in the resident documentation Acute non-ST elevation myocardial infarction, status post drug-eluting stent into proximal LAD Continue dual antiplatelet therapy, beta-elizabeth, ELHAM inhibitor, High intensity statin She has had no cardiac symptoms with increased activity of the last 24 hours. Follow-up appointments discussed with the patient; she is anxious for discharge today Uncontrolled diabetes She extensive diabetes education both by the machine welt butter and our medical team. Tobacco abuse Extensive counseling Additional diagnoses per resident documentation Resident Activity Tracking Resident Involvement: Resident Care Provided Care Provided: Adult Hospital Medicine
== END 2020-10-25 14:52 | disposition home or self-care (01) | DRG 247 ==
LOC: ED 07:46 → CC 12:39 → 2S 12:40 → SUATTDRO 14:36 → 2N 10-24 18:27

== ENCOUNTER 2020-11-18 19:24 | Observation (INO) ==
[2020-11-18] MEDS ORDERED: NITROGLYCERIN 2% OINTMENT 30GM TUBE EXT STA (19:47)
--- NOTE | 2020-11-18 20:04 | XRay Report ---
XR chest 1V portable INDICATION: Atypical chest pain.. TECHNIQUE: Single frontal radiograph of the chest was obtained. Comparison: None available at the time of this dictation. FINDINGS: Exam is limited by underpenetration. No lines and tubes are seen. Stable cardiomegaly is seen. The emily ngs are clear. No evidence of pleural effusion or pneumothorax. IMPRESSION: Limited exam due to underpenetration. No evidence of acute abnormality. ACT 112: Negative or not required by law. Electronically signed by: Rob Lebron M.D. 11/18/2020 8:03 PM
[2020-11-18 20:09] LABS: Basophils # (auto) 0.02 K/uL (0-0.2); Basophils % (auto) 0.2 %; Eosinophils % (auto) 4.7 %; Hematocrit (blood only) 39.8 % (37-47); Hemoglobin 13.2 g/dL (12.0-16.0); Immature Granulocytes # (auto) 0.03 K/uL (0.00-0.02); Immature Granulocytes % (auto) 0.3 %; Lymphocytes # (auto) 2.82 K/uL (1.2-3.4); Lymphocytes % (auto) 26.3 %; Mean Corpuscular Hemoglobin 28.6 pg (25-34); Mean Corpuscular Hgb Conc 33.2 g/dL (32-36); Mean Corpuscular Volume 86.3 fL (80-100); Mean Platelet Volume 10.8 fL (7.4-10.4); Monocytes # (auto) 0.62 K/uL (0.11-0.59); Monocytes % (auto) 5.8 %; Neutrophils # (auto) 6.75 K/uL (1.4-6.5); Neutrophils % (auto) 62.7 %; Platelet Count 353 K/uL (130-400); RDW Coefficient of Variation 13.9 % (11.5-14.5); RDW Standard Deviation 43.8 fL (36.4-46.3); Red Blood Count 4.61 M/uL (4.2-5.4); White Blood Count 10.74 K/uL (4.8-10.8)
[2020-11-18] MEDS ORDERED: FAMOTIDINE 20MG/5ML IV PUSH IV STA (20:15)
--- NOTE | 2020-11-18 20:25 | Emergency Department Note ---
History of Present Illness General Chief complaint: Chest Pain Stated complaint: CHEST TIGHTNESS, BACK PAIN, HEADACHE Time Seen by Provider: 11/18/20 19:34 Source: patient Mode of arrival: ambulatory Limitations: no limitations History of Present Illness Provider complaint: Chest pain, recent heart attack Onset (ago): day(s) 1 Location: chest Radiation: back and extremity Maximum Pain Intensity: 5 Relieved By: + none Exacerbated By: + movement Associated symptoms: + chest pain, + nausea/vomiting and + shortness of breath; no diaphoresis, no fever/chills or no syncope Treatments prior to arrival: none This is a 60-year-old female presents emergency department complaining of chest pain. Patient states yesterday evening she began noticing chest discomfort and shortness of breath. She states the symptoms are worse with exertion. She states symptoms persisted into today with pain predominantly left-sided radiating into her left upper extremity and slightly into her back. Patient states she was just admitted here last month and was told she had a heart attack. She states she underwent cardiac catheterization and placement of a stent. Patient has a history of high cholesterol, diabetes and smoking. Patient states she did take 2 extra low-dose aspirin today, did not try anything else for her pain at home. She does not have nitro at home. Patient denies nausea, vomiting, diaphoresis, dizziness. She states earlier she was slightly nauseated but did not vomit. Denies any company abdominal pain, leg swelling, calf tenderness. Review of EMR shows patient was discharged on October 25 following cardiac catheterization for an NSTEMI with placement of a stent in the LAD. Pt seen during a time of high acuity and national emergency pandemic while wearing PPE. Home Medications Medication Instructions Recorded Confirmed Type insulin aspart U-100 100 unit/mL 20 unit SQ TIDM box 05/05/20 11/18/20 History (3 mL) subcutaneous pen (Novolog Flexpen U-100 Insulin aspart) aspirin 81 mg tablet,delayed 81 mg PO QAM 10/16/20 11/18/20 History release clonazepam 0.5 mg tablet (Klonopin) 0.5 mg PO QAM #30 tab 10/20/20 11/18/20 Rx dapagliflozin 10 mg tablet 10 mg PO QAM 10/22/20 11/18/20 History (Farxiga) buspirone 10 mg tablet 10 mg PO TID #90 tab 10/24/20 11/18/20 Rx gemfibrozil 600 mg tablet 600 mg PO BID #60 tab 10/24/20 11/18/20 Rx atorvastatin 40 mg tablet 80 mg PO QAM 30 Days #30 tab 10/25/20 11/18/20 Rx insulin glargine 100 unit/mL (3 45 unit SQ HS 30 Days #0 ml 10/25/20 11/18/20 Rx mL) subcutaneous pen (Lantus Solostar U-100 Insulin) levothyroxine 88 mcg tablet 88 mcg PO DAILYBB 30 Days #30 tab 10/25/20 11/18/20 Rx lisinopril 40 mg tablet 40 mg PO QAM 30 Days #30 tab 10/25/20 11/18/20 Rx metoprolol tartrate 25 mg tablet 25 mg PO BID 30 Days #180 tab 10/25/20 11/18/20 Rx ticagrelor 90 mg tablet (Brilinta) 90 mg PO BID 30 Days #60 tab 10/25/20 11/18/20 Rx nicotine 21 mg/24 hr daily 1 patch TRANSDERMAL DAILY #28 ea 10/27/20 11/18/20 Rx transdermal patch (Nicoderm CQ) fluvoxamine 50 mg tablet 50 mg PO HS #90 tab 11/06/20 11/18/20 Rx nystatin-triamcinolone 100,000 1 applic TOPICAL ONCE #15 g 11/10/20 11/18/20 Rx unit/gram-0.1 % topical ointment clobetasol 0.05 % topical ointment 1 applic TOPICAL UD 11/18/20 11/18/20 History Allergies Allergy/AdvReac Type Severity Reaction Status Date / Time albiglutide [From [facility]] AdvReac Unknown Unknown Verified 11/18/20 20:08 dulaglutide [From [facility]ul[facility]] AdvReac Unknown Unknown Verified 11/18/20 20:08 Past Med/Surg History Medical History Anxiety Arthralgia of multiple sites Depression Diabetes type 2, uncontrolled Dyslipidemia Hypertension Hypokalemia Hyponatremia Hypothyroidism Obesity OCD (obsessive compulsive disorder) Psoriasis Renal insufficiency Serum gamma globulin increased Tobacco abuse Vulvitis Surgical History History of cholecystectomy History of dental surgery History of tonsillectomy Family History Unknown Thyroid disorder Diabetes Father Diabetes Denies family history of Ovarian cancer Prostate cancer Breast cancer Colorectal cancer Uterine cancer Social History Smoking Status: Former smoker Tobacco Type: Cigarettes Cigarettes Per Day: 15; Second Hand Exposure: Yes; Hx Alcohol Use: No Hx Substance Use: No Preferred Language: Indonesian Communication Ability: Effective Optician Manager Required: No Beliefs That Will Affect Care: None Current Living Situation: Alone Feels Safe at Home: Yes Safety Concerns Comment: Gets nervous sometimes because she lives alone, gets shaky from anxiety caffeine: Yes Dental Care, Regularly: No Physical Activity Frequency: Does not Exercise Seatbelt Use: always Sunscreen Use: No Assistive Devices: Walker Review of Systems A total of 10 systems reviewed and were otherwise negative All systems reviewed & are unremarkable except as noted in HPI & below Physical Exam Vital Signs Vital Signs - 24 hr 11/18/20 19:29 11/18/20 19:39 Temperature 36.3 C L Temperature Source Temporal Artery Scan Pulse Rate 93 H 89 Respiratory Rate 20 15 Respiratory Depth Normal Blood Pressure 130/81 148/90 H Blood Pressure Mean 97 109 Pulse Oximetry 97 Oxygen Delivery Method Room Air Sepsis Recent Fever Within 48 Hours No Sepsis New/Unexplained Change in Mental Status No Sepsis Action Taken by Nursing No Action Required GENERAL: alert, uncomfortable appearing, well nourished, mild distress, non- toxic, BMI>40 EYE EXAM: normal conjunctiva, PERRL and EOM's grossly intact OROPHARYNX: no exudate, no erythema, lips, buccal mucosa, and tongue normal and mucous membranes are moist NECK: supple, no nuchal rigidity, no adenopathy, non-tender LUNGS: Clear but decreased to auscultation. Normal chest wall mechanics, no w/r/r HEART: no murmurs, S1 normal and S2 normal ABDOMEN: abdomen soft, non-tender, normo-active bowel sounds, no masses, no rebound or guarding. BACK: Back is symmetrical on inspection and there is no deformity, no midline tenderness, no CVA tenderness. SKIN: no rashes and no bruising UPPER EXTREMITIES: upper extremities are grossly normal. FROM, nml pulses b/l. LOWER EXTREMITIES: No pitting edema. FROM, nml pulses b/l. NEURO EXAM: Normal sensorium, cranial nerves II-XII grossly intact, normal speech, no gross weakness of arms, no gross weakness of legs. Gross sensation intact. Course Administered Medications Acetaminophen (Acetaminophen 325 Mg Tab) 650 mg PO Q4H PRN PRN Reason: Pain or Fever Stop: 12/19/20 01:35 Last Admin: 11/19/20 21:40 Dose: 650 mg Documented by: [id number] Admin: 11/19/20 15:50 Dose: 650 mg Documented by: [id number] Admin: 11/19/20 08:36 Dose: 650 mg Documented by: [id number] Admin: 11/19/20 02:26 Dose: 650 mg Documented by: [id number] Aspirin (Aspirin 81 Mg Ectab) 81 mg PO [facility] Stop: 12/19/20 08:59 Last Admin: 11/19/20 08:32 Dose: 81 mg Documented by: [id number] Atorvastatin Calcium (Atorvastatin 40 Mg Tab) 80 mg PO [facility] Stop: 12/19/20 08:59 Last Admin: 11/19/20 08:32 Dose: 80 mg Documented by: [id number] Buspirone HCl (Buspirone 5 Mg Tab) 10 mg PO TID [facility] Stop: 12/19/20 08:59 Last Admin: 11/19/20 21:21 Dose: 10 mg Documented by: [id number] Admin: 11/19/20 13:29 Dose: 10 mg Documented by: [id number] Admin: 11/19/20 08:33 Dose: 10 mg Documented by: [id number] Clonazepam (Clonazepam 0.5 Mg Tab) 0.5 mg PO [facility] Stop: 12/19/20 08:59 Last Admin: 11/19/20 08:36 Dose: 0.5 mg Documented by: [id number] Fluvoxamine Maleate (Fluvoxamine Maleate 50 Mg Tab) 50 mg PO HS [facility] Stop: 12/19/20 20:59 Last Admin: 11/19/20 21:19 Dose: 50 mg Documented by: [id number] Insulin Aspart (Insulin Aspart 100 Units/Ml 3 Ml Pen) 0 units SC ACHS [facility] Stop: 12/19/20 07:29 Last Admin: 11/19/20 21:23 Dose: 1 units Documented by: [id number] Cosigned by: [id number] Admin: 11/19/20 17:34 Dose: 6 units Documented by: [id number] Cosigned by: [id number] Admin: 11/19/20 12:05 Dose: 3 units Documented by: [id number] Cosigned by: [id number] Admin: 11/19/20 08:34 Dose: 6 units Documented by: [id number] Cosigned by: [id number] Insulin Glargine (Insulin Glargine Solostar 100 Units/Ml 3 Ml Pen) 30 units SC BID [facility]ONI Stop: 12/18/20 21:59 Last Admin: 11/19/20 21:22 Dose: 30 units Documented by: [id number] Cosigned by: [id number] Admin: 11/19/20 08:33 Dose: 30 units Documented by: [id number] Cosigned by: [id number] Admin: 11/19/20 01:41 Dose: 30 units Documented by: [id number] Cosigned by: [id number] Levothyroxine Sodium (Levothyroxine Sodium 88 Mcg Tablet) 88 mcg PO DAILYBB [facility] Stop: 12/19/20 06:29 Last Admin: 11/19/20 05:34 Dose: 88 mcg Documented by: [id number] Lidocaine (Lidocaine 5% 1 Patch) 1 patch TD QAM [facility] Stop: 12/19/20 08:59 Last Admin: 11/19/20 08:37 Dose: 1 patch Documented by: [id number] Miscellaneous (Remove Nicoderm Patch) 1 ea N/A DAILY@0859 [facility] Stop: 12/19/20 08:58 Last Admin: 11/19/20 08:35 Dose: Not Given Documented by: [id number] Miscellaneous (Remove Lidoderm Patch) 1 ea N/A DAILY@2100 [facility] Stop: 12/19/20 20:59 Last Admin: 11/19/20 21:19 Dose: 1 ea Documented by: [id number] Nicotine (Nicotine 21 Mg/24 Hr Tdsy) 21 mg TD DAILY [facility] Stop: 12/19/20 08:59 Last Admin: 11/19/20 08:37 Dose: 21 mg Documented by: [id number] Nystatin (Nystatin Cr 15 Gm Tube) 1 appln EXT TID [facility] Stop: 12/19/20 13:59 Last Admin: 11/19/20 22:19 Dose: 1 appln Documented by: [id number] Admin: 11/19/20 14:32 Dose: 1 appln Documented by: [id number] Ticagrelor (Ticagrelor 90 Mg Tab) 90 mg PO BID [facility] Stop: 12/19/20 08:59 Last Admin: 11/19/20 21:20 Dose: 90 mg Documented by: [id number] Admin: 11/19/20 08:33 Dose: 90 mg Documented by: [id number] Discontinued Medications Famotidine (Famotidine 20mg/5ml Iv Push) 20 mg IV ONE STA Stop: 11/18/20 20:16 Last Admin: 11/18/20 20:27 Dose: 20 mg Documented by: [id number] Heparin Sodium (Porcine) (Heparin Sod (Porcine) 1000 Unit/Ml) 3,000 units IV TODAY@0800 ONE Stop: 11/19/20 08:01 Last Admin: 11/19/20 08:10 Dose: 3,000 units Documented by: [id number] Cosigned by: [id number] Heparin Sodium/Dextrose (Heparin Iv Adult Wt-Based Standard *No* Bolus Protocol) 1 ea N/A ONE ONE; Protocol Stop: 11/18/20 21:49 Last Admin: 11/18/20 23:40 Dose: 1 ea Documented by: [id number] Heparin Sodium/Dextrose (Heparin Sodium/Dextrose) 25,000 units in 500 mls @ 27 mls/hr IV .[id number] [facility]; Protocol Stop: 12/18/20 21:59 Last Titration: 11/19/20 19:42 Dose: 0 units/hr, 0 mls/hr Documented by: [id number] Cosigned by: [id number] Titration: 11/19/20 15:56 Dose: 1,350 units/hr, 27 mls/hr Documented by: [id number] Cosigned by: [id number] Titration: 11/19/20 07:33 Dose: 1,350 units/hr, 27 mls/hr Documented by: [id number] Cosigned by: [id number] Admin: 11/18/20 23:35 Dose: 1,200 units/hr, 24 mls/hr Documented by: [id number] Cosigned by: [id number] Sodium Chloride (Nss 1000ml) 500 mls @ 999 mls/hr IV .Q31M ONE Stop: 11/19/20 02:06 Last Infusion: 11/19/20 03:00 Dose: 0 mls/hr Documented by: [id number] Admin: 11/19/20 02:25 Dose: 999 mls/hr Documented by: [id number] Sodium Chloride (Nss 1000ml) 500 mls @ 999 mls/hr IV .Q31M ONE Stop: 11/19/20 04:11 Last Infusion: 11/19/20 04:25 Dose: 0 mls/hr Documented by: [id number] Admin: 11/19/20 03:50 Dose: 999 mls/hr Documented by: [id number] Insulin Human Regular (Novolin-R Insulin Per Unit Charge) 8 units SC NOW STA Stop: 11/18/20 20:48 Last Admin: 11/18/20 21:17 Dose: 8 units Documented by: [id number] Cosigned by: [id number] Morphine Sulfate (Morphine Sulfate 2 Mg/Ml Carp) 2 mg IV NOW STA Stop: 11/18/20 20:59 Last Admin: 11/18/20 21:17 Dose: 2 mg Documented by: [id number] Nitroglycerin (Nitroglycerin 2% Ointment 30gm Tube) 1 inch EXT NOW STA Stop: 11/18/20 19:48 Last Admin: 11/18/20 20:00 Dose: 1 inch Documented by: [id number] Potassium Chloride (Potassium Chloride Crtab 20 Meq Tabcr) 40 meq PO NOW STA Stop: 11/18/20 22:43 Last Admin: 11/18/20 23:41 Dose: 40 meq Documented by: [id number] Medical Decision Making Differential Diagnosis Differential diagnoses includes but is not limited to acute coronary syndrome, myocardial infarction, pericarditis, pulmonary embolus, aortic dissection, pneumonia, pneumothorax, musculoskeletal, shingles, esophageal. Medical Records Attestation: I reviewed the patient's medical records. Home Medications Current Medication List: was personally reviewed by me Laboratory Data Attestation: I reviewed the patient's lab results. Result diagrams: 11/19/20 02:06 11/19/20 02:06 Lab Results 11/18/20 11/18/20 11/18/20 Range/Units 19:55 19:55 19:55 WBC 10.74 (4.8-10.8) K/uL RBC 4.61 (4.2-5.4) M/uL Hgb 13.2 (12.0-16.0) g/dL Hct 39.8 (37-47) % MCV 86.3 (80-100) fL MCH 28.6 (25-34) pg MCHC 33.2 (32-36) g/dL RDW Std Deviation 43.8 (36.4-46.3) fL RDW Coeff of Umair 13.9 (11.5-14.5) % Plt Count 353 (130-400) K/uL MPV 10.8 H (7.4-10.4) fL Immature Gran % (Auto) 0.3 % Neut % (Auto) 62.7 % Lymph % (Auto) 26.3 % [place] % (Auto) 5.8 % Eos % (Auto) 4.7 % Baso % (Auto) 0.2 % Neut # (Auto) 6.75 H (1.4-6.5) K/uL Lymph # (Auto) 2.82 (1.2-3.4) K/uL [place] # (Auto) 0.62 H (0.11-0.59) K/uL Eos # (Auto) 0.50 (0-0.5) K/uL Baso # (Auto) 0.02 (0-0.2) K/uL Immature Gran # (Auto) 0.03 H (0.00-0.02) K/uL PT 9.3 (9.0-12.0) Seconds INR 0.9 (0.9-1.1) Sodium 136 (136-145) mmol/L Potassium 3.5 (3.5-5.1) mmol/L Chloride 104 (98-107) mmol/L Carbon Dioxide 21 (21-32) mmol/L Anion Gap 10.0 (3-11) BUN 19 H (7-18) mg/dl Creatinine 1.33 H (0.6-1.2) mg/dl Est Cr Clr Drug Dosing 47.4 ml/min Est GFR ( Amer) 49.9 ml/min Est GFR (Non-Af Amer) 43.0 ml/min BUN/Creatinine Ratio 14.1 (10-20) Glucose 361 H* (70-99) mg/dl Calcium 9.3 (8.5-10.1) mg/dl Magnesium 2.0 (1.8-2.4) mg/dl Total Bilirubin 0.2 (0.2-1) mg/dl AST 7 L (15-37) U/L ALT 13 (12-78) U/L Alkaline Phosphatase 203 H (45-117) U/L Troponin I 0.016 (0-0.045) ng/ml NT-Pro-B Natriuret Pep 375 (0-900) pg/ml Total Protein 8.2 (6.4-8.2) gm/dl Albumin 3.2 L (3.4-5.0) gm/dl Globulin 5.0 H (2.5-4.0) gm/dl Albumin/Globulin Ratio 0.6 L (0.9-2) Lipase 126 (73-393) U/L Beta-Hydroxybutyric Acd 0.82 (0.2-2.81) mg/dl COVID-19 Eval Order SARS-CoV-2 (PCR) (Negative) 11/18/20 11/18/20 Range/Units 20:00 20:00 WBC (4.8-10.8) K/uL RBC (4.2-5.4) M/uL Hgb (12.0-16.0) g/dL Hct (37-47) % MCV (80-100) fL MCH (25-34) pg MCHC (32-36) g/dL RDW Std Deviation (36.4-46.3) fL RDW Coeff of Umair (11.5-14.5) % Plt Count (130-400) K/uL MPV (7.4-10.4) fL Immature Gran % (Auto) % Neut % (Auto) % Lymph % (Auto) % [place] % (Auto) % Eos % (Auto) % Baso % (Auto) % Neut # (Auto) (1.4-6.5) K/uL Lymph # (Auto) (1.2-3.4) K/uL [place] # (Auto) (0.11-0.59) K/uL Eos # (Auto) (0-0.5) K/uL Baso # (Auto) (0-0.2) K/uL Immature Gran # (Auto) (0.00-0.02) K/uL PT (9.0-12.0) Seconds INR (0.9-1.1) Sodium (136-145) mmol/L Potassium (3.5-5.1) mmol/L Chloride (98-107) mmol/L Carbon Dioxide (21-32) mmol/L Anion Gap (3-11) BUN (7-18) mg/dl Creatinine (0.6-1.2) mg/dl Est Cr Clr Drug Dosing ml/min Est GFR ( Amer) ml/min Est GFR (Non-Af Amer) ml/min BUN/Creatinine Ratio (10-20) Glucose (70-99) mg/dl Calcium (8.5-10.1) mg/dl Magnesium (1.8-2.4) mg/dl Total Bilirubin (0.2-1) mg/dl AST (15-37) U/L ALT (12-78) U/L Alkaline Phosphatase (45-117) U/L Troponin I (0-0.045) ng/ml NT-Pro-B Natriuret Pep (0-900) pg/ml Total Protein (6.4-8.2) gm/dl Albumin (3.4-5.0) gm/dl Globulin (2.5-4.0) gm/dl Albumin/Globulin Ratio (0.9-2) Lipase (73-393) U/L Beta-Hydroxybutyric Acd (0.2-2.81) mg/dl COVID-19 Eval Order Covid19 at [facility] SARS-CoV-2 (PCR) NEGATIVE (Negative) Imaging Data Radiologist's Impression: Chest X-Ray 11/18/20 19:47 XR chest 1V portable INDICATION: Atypical chest pain.. TECHNIQUE: Single frontal radiograph of the chest was obtained. Comparison: None available at the time of this dictation. FINDINGS: Exam is limited by underpenetration. No lines and tubes are seen. Stable cardiomegaly is seen. The lungs are clear. No evidence of pleural effusion or pneumothorax. IMPRESSION: Limited exam due to underpenetration. No evidence of acute abnormality. ACT 112: Negative or not required by law. Electronically signed by: Rob Lebron M.D. 11/18/2020 8:03 PM ECG Data Attestation: I personally reviewed and interpreted this ECG as follows: Indication: + chest pain Rate (beats per minute): 86 Rhythm: + normal sinus ECG Intervals/blocks: + Normal QRS and + Normal QT ECG [place]: + Normal ECG ST segments: + T-wave inversions (V5-6, III, aVF) MDM Narrative This is a 60-year-old female who presents due to concern for chest pain. Patient with recent NSTEMI and stent placement in her LAD 3 weeks ago during hospitalization. Patient with multiple risk factors for CAD. Chest x-ray reassuring, pain improved with Nitropaste and then with additional pain medication. Patient was afebrile and hemodynamically stable. Patient's other labs reassuring with the exception of significant hyperglycemia. Patient admits to difficulty knowing what is allowed in a diabetic diet and controlling her blood sugar. No acute EKG changes and first troponin negative. Due to history and risk factors, case discussed with hospitalist for additional evaluation and management. Patient's leukosis was improved with subcu insulin here. Discussed all results with patient and family at bedside, they verbalized understanding were in agreement with plan for additional inpatient evaluation. No evidence of DKA. I do not suspect occult vascular etiology including dissection. I do not suspect PE, pericarditis/myocarditis, pericardial effusion, pleural effusion, or pneumonia. An order was placed for continuous cardiac monitoring. The monitor shows a rate of _72_ with _normal sinus_ rhythm. Impression & Plan Chest pain, S/P coronary artery stent placement, Hyperglycemia Discharge Plan Visit Data Chief Complaint: Chest Pain Stated Complaint: CHEST TIGHTNESS, BACK PAIN, HEADACHE ED Provider: Radha Starkey Discharge Problem: Chest pain, S/P coronary artery stent placement, Hyperglycemia Patient Disposition: Admitted As Inpatient Condition: Fair Discharge Instructions Interventions: ED Discharge Assessment Last Done: 11/19/20 00:19
[2020-11-18 20:42] LABS: Albumin Globulin Ratio 0.6 (0.9-2); Albumin Level 3.2 gm/dl (3.4-5.0); BUN Creatinine Ratio 14.1 (10-20); Bilirubin,Total 0.2 mg/dl (0.2-1); Calcium 9.3 mg/dl (8.5-10.1); Creatinine Clr Calc Pharmacy 47.4 ml/min; Est GFR (African American) 49.9 ml/min; Potassium 3.5 mmol/L (3.5-5.1); Total Protein 8.2 gm/dl (6.4-8.2); Troponin I 0.016 ng/ml (0-0.045)
[2020-11-18] MEDS ORDERED: NovoLIN-R INSULIN PER UNIT CHARGE SC STA (20:47)
[2020-11-18] MEDS ORDERED: MoRPHine SULFATE 2 MG/ML CARP IV STA (20:58)
[2020-11-18 21:05] LABS: Beta-Hydroxybutyrate 0.82 mg/dl (0.2-2.81)
[2020-11-18] MEDS ORDERED: Heparin IV Adult Wt-Based Standard *NO* Bolus Protocol ONE (21:48)
[2020-11-18] MEDS ORDERED: NITROGLYCERIN SL 0.4 MG/TAB TAB SL PRN (21:48)
[2020-11-18] MEDS ORDERED: MoRPHine SULFATE 2 MG/ML CARP IV PRN (21:48)
--- NOTE | 2020-11-18 21:57 | History & Physical Report ---
Date of Service November 18, 2020 History of Present Illness Chief Complaint: Chest pain Primary Care Provider: Prashant Pina MD 60-year-old female past medical history significant for type 2 diabetes not well controlled on insulin therapy, hypertension, hypothyroidism, CAD s/p CHANTAL x2 to proximal and mid LAD on 10/22/20, tobacco use disorder, postmenopausal vaginal bleeding undergoing work-up by [employer] presents for midsternal chest pain that started at 8 PM yesterday but has since worsened with radiation down the left arm this afternoon. Was not doing anything in particular at the time of symptoms. Did endorse associated occasional shortness of breath at time of arrival but does not complain of such at this point. Mildly nauseous earlier today but feeling well now. No episodes of emesis or diaphoresis. Of note, patient's most recent A1c was 15.8% and her Lantus was recently increased to 60 units nightly with 20 units NovoLog with meals. Last admission she was also started on DAPT with aspirin/Brilinta, and high intensity statin therapy. She reports good adherence to these medicines. Echocardiogram performed last admission unable to evaluate for motion abnormalities due to body habitus. In the ER patient was noted to be normotensive, non-tachycardic, non-tachypneic, saturating well on room air. Lab work notable for elevated creatinine 1.33 which is near normal for patient, BSG 361, alk phos 203 which is mildly elevated compared to typical. Noted to have a detectable troponin at 0.016. COVID-19 test negative. Allergies Allergy/AdvReac Type Severity Reaction Status Date / Time albiglutide [From [facility]] AdvReac Unknown Unknown Verified 11/18/20 20:08 dulaglutide [From [facility]] AdvReac Unknown Unknown Verified 11/18/20 20:08 Home Medications Medication Instructions Recorded Confirmed Type insulin aspart U-100 100 unit/mL 20 unit SQ TIDM box 05/05/20 11/18/20 History (3 mL) subcutaneous pen (Novolog Flexpen U-100 Insulin aspart) aspirin 81 mg tablet,delayed 81 mg PO QAM 10/16/20 11/18/20 History release clonazepam 0.5 mg tablet (Klonopin) 0.5 mg PO QAM #30 tab 10/20/20 11/18/20 Rx dapagliflozin 10 mg tablet 10 mg PO QAM 10/22/20 11/18/20 History (Farxiga) buspirone 10 mg tablet 10 mg PO TID #90 tab 10/24/20 11/18/20 Rx gemfibrozil 600 mg tablet 600 mg PO BID #60 tab 10/24/20 11/18/20 Rx atorvastatin 40 mg tablet 80 mg PO QAM 30 Days #30 tab 10/25/20 11/18/20 Rx insulin glargine 100 unit/mL (3 45 unit SQ HS 30 Days #0 ml 10/25/20 11/18/20 Rx mL) subcutaneous pen (Lantus Solostar U-100 Insulin) levothyroxine 88 mcg tablet 88 mcg PO DAILYBB 30 Days #30 tab 10/25/20 11/18/20 Rx lisinopril 40 mg tablet 40 mg PO QAM 30 Days #30 tab 10/25/20 11/18/20 Rx metoprolol tartrate 25 mg tablet 25 mg PO BID 30 Days #180 tab 10/25/20 11/18/20 Rx ticagrelor 90 mg tablet (Brilinta) 90 mg PO BID 30 Days #60 tab 10/25/20 11/18/20 Rx nicotine 21 mg/24 hr daily 1 patch TRANSDERMAL DAILY #28 ea 10/27/20 11/18/20 Rx transdermal patch (Nicoderm CQ) fluvoxamine 50 mg tablet 50 mg PO HS #90 tab 11/06/20 11/18/20 Rx nystatin-triamcinolone 100,000 1 applic TOPICAL ONCE #15 g 11/10/20 11/18/20 Rx unit/gram-0.1 % topical ointment clobetasol 0.05 % topical ointment 1 applic TOPICAL UD 11/18/20 11/18/20 History Past Med/Surg History Medical History Anxiety Arthralgia of multiple sites Depression Diabetes type 2, uncontrolled Dyslipidemia Hypertension Hypokalemia Hyponatremia Hypothyroidism Obesity OCD (obsessive compulsive disorder) Psoriasis Renal insufficiency Serum gamma globulin increased Tobacco abuse Vulvitis Surgical History History of cholecystectomy History of dental surgery History of tonsillectomy Family History Unknown Thyroid disorder Diabetes Father Diabetes Denies family history of Ovarian cancer Prostate cancer Breast cancer Colorectal cancer Uterine cancer Social History Smoking Status: Former smoker Tobacco Type: Cigarettes Cigarettes Per Day: 15; Second Hand Exposure: Yes; Hx Alcohol Use: No Hx Substance Use: No Preferred Language: Turkmen Communication Ability: Effective 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 Beliefs That Will Affect Care: None Current Living Situation: Alone Feels Safe at Home: Yes Safety Concerns Comment: Gets nervous sometimes because she lives alone, gets shaky from anxiety caffeine: Yes Dental Care, Regularly: No Physical Activity Frequency: Does not Exercise Seatbelt Use: always Sunscreen Use: No Assistive Devices: None and Glasses Review of Systems Review of Systems: All systems reviewed & are unremarkable except as noted in HPI & below (Please note that ROS is at time of interview, see HPI for history o f symptoms) Constitutional: no fever, no chills and no malaise Respiratory: no cough and no dyspnea Cardiovascular: no chest pain, no palpitations and no edema Gastrointestinal: no abdominal pain, no constipation and no diarrhea/loose stools Genitourinary: no dysuria and no hematuria Physical Exam Constitutional: WD/WN, vitals as above Eyes: PERRL, conjunctivae normal, anicteric sclerae ENMT: external ear and nose normal, oropharynx normal Neck: normal visual inspection Respiratory: normal respiratory effort, lungs clear to auscultation Cardiovascular: RRR, no murmur, no edema Gastrointestinal (Abdomen): normal bowel sounds, soft, nontender, no hepatosplenomegaly Musculoskeletal: no cyanosis or clubbing, extremities motor strength 5/5 Some worsening of tenderness noted over left middle sternal border to palpation Skin: no rashes, warm and dry Neurologic: AAOx3, normal speech Bilateral UE, LE, and face without sensory or motor deficits Psychiatric: A+Ox3, euthymic affect Results & Data Results & Data ([facility]) Vital Signs (Past 12 Hours) Vital Signs Temp Pulse Resp BP Pulse Ox 11/18/20 19:39 89 15 148/90 H 11/18/20 19:29 36.3 C L 93 H 20 130/81 97 Code Status & VTE Plan VTE Prophylaxis Plan VTE Prophylaxis will be ordered: Yes
[2020-11-18] MEDS ORDERED: POTASSIUM CHLORIDE CRTAB 20 MEQ TABCR PO STA (22:42)
[2020-11-18] MEDS: HEPARIN SODIUM/DEXTROSE 25,000 UNITS/500 ML BAG IV SCH (23:35)
[2020-11-19] MEDS ORDERED: DEXTROSE 50% 50 ML SYRINGE IV PRN (01:36)
[2020-11-19] MEDS ORDERED: GLUCOSE 40% GEL 15 GM TUBE PO PRN (01:36)
[2020-11-19] MEDS ORDERED: GLUCOSE 10 TABS/TUBE PO PRN (01:36)
[2020-11-19] MEDS ORDERED: ONDANSETRON INJ 2 MG/ML 2 ML VIAL IV PRN (01:36)
[2020-11-19] MEDS ORDERED: GLUCAGON FOR INJ 1 MG VIAL SQ PRN (01:36)
[2020-11-19] MEDS ORDERED: SODIUM CHLORIDE 0.9% 1000ML 500 ML IV ONE ×2 (01:36→03:41)
[2020-11-19] MEDS ORDERED: CARBOHYDRATES FOR HYPOGLYCEMIA PO PRN (01:36)
[2020-11-19] MEDS: INSULIN GLARGINE SOLOSTAR 100 UNITS/ML 3 ML PEN SC SCH ×3 (01:41→21:22)
[2020-11-19] MEDS ORDERED: PATIENT'S ALLERGY INFO NEEDS ENTERED SCH (01:45)
[2020-11-19 01:50] LABS: INR 0.9 (0.9-1.1); Prothrombin Time 9.3 Seconds (9.0-12.0)
[2020-11-19 02:25] LABS: Hematocrit (blood only) 36.2 % (37-47); Hemoglobin 12.2 g/dL (12.0-16.0); Mean Corpuscular Hemoglobin 29.2 pg (25-34); Mean Corpuscular Hgb Conc 33.7 g/dL (32-36); Mean Corpuscular Volume 86.6 fL (80-100); Mean Platelet Volume 10.9 fL (7.4-10.4); Platelet Count 362 K/uL (130-400); RDW Coefficient of Variation 14.2 % (11.5-14.5); RDW Standard Deviation 44.6 fL (36.4-46.3); Red Blood Count 4.18 M/uL (4.2-5.4); White Blood Count 9.86 K/uL (4.8-10.8)
[2020-11-19] MEDS: ACETAMINOPHEN 325 MG TAB PO PRN ×4 (02:26→21:40)
[2020-11-19 03:13] LABS: BUN Creatinine Ratio 14.1 (10-20); Blood Urea Nitrogen 19 mg/dl (7-18); Calcium 8.7 mg/dl (8.5-10.1); Carbon Dioxide 23 mmol/L (21-32); Chloride 105 mmol/L (98-107); Creatinine Clr Calc Pharmacy 45.7 ml/min; Est GFR (African American) 47.7 ml/min; Est GFR (Non-African American) 41.2 ml/min; Glucose 319 mg/dl (70-99); Potassium 3.6 mmol/L (3.5-5.1); Sodium 135 mmol/L (136-145); Troponin I < 0.015 ng/ml (0-0.045)
[2020-11-19 03:24] LABS: Beta-Hydroxybutyrate 0.77 mg/dl (0.2-2.81)
[2020-11-19] MEDS: LEVOTHYROXINE SODIUM 88 MCG TABLET PO SCH (05:34)
[2020-11-19 07:14] LABS: Partial Thromboplastin Ratio 1.3; Partial Thromboplastin Time 33.7 Seconds (21.0-31.0)
[2020-11-19] MEDS ORDERED: HEPARIN SOD (PORCINE) 1000 UNIT/ML IV ONE (08:00)
[2020-11-19] MEDS: ATORVASTATIN 40 MG TAB PO SCH (08:32)
[2020-11-19] MEDS: ASPIRIN 81 MG ECTAB PO SCH (08:32)
[2020-11-19] MEDS: busPIRone 5 MG TAB PO SCH ×3 (08:33→21:21)
[2020-11-19] MEDS: TICAGRELOR 90 MG TAB PO SCH ×2 (08:33→21:20)
[2020-11-19] MEDS: INSULIN ASPART 100 UNITS/ML 3 ML PEN SC SCH ×4 (08:34→21:23)
[2020-11-19] MEDS: clonazePAM 0.5 MG TAB PO SCH (08:36)
[2020-11-19] MEDS: LIDOCAINE 5% 1 PATCH TD SCH (08:37)
[2020-11-19] MEDS: NICOTINE 21 MG/24 HR TDSY TD SCH (08:37)
[2020-11-19] MEDS ORDERED: gemfibroziL 600 MG TAB PO SCH (09:00)
[2020-11-19] MEDS: NYSTATIN CR 15 GM TUBE EXT SCH ×2 (14:32→22:19)
[2020-11-19 15:53] LABS: Partial Thromboplastin Time 51.3 Seconds (21.0-31.0)
--- NOTE | 2020-11-19 17:21 | Cardiology Consultation ---
Date of Consultation November 19, 2020 Assessment & Plan (1) Chest pain: (2) Status post insertion of drug-eluting stent into left anterior descending (LAD) artery: (3) CAD (coronary artery disease): (4) Tobacco abuse: 1. Chest discomfort: She is describing chest tightness which has remained and although initially she felt it was similar to her last presentation with an NSTEMI her description is a little bit different and she says her chest is "touchy". I do not believe this is cardiac in etiology. The electrocardiographic changes probably occurred at her initial presentation but no follow-up electrocardiogram was done until this visit. Her enzymes have been totally negative. I would not pursue further evaluation here. 2. Stent placement: There is no indication that she has had problems with her stent at this point. 3. Coronary disease: She has cath proven coronary disease however her symptoms are atypical of progression and I would not pursue further evaluation at this time. 4. Tobacco abuse: She continues to smoke although she is taking her NicoDerm patch. She knows that she needs to stop and I encouraged her to do so. History of Present Illness Reason for Consultation: Chest pain Attending Physician: Rob Alberto DO History of Present Illness This is a 60-year-old woman with a history of hypertension, hyperlipidemia, diabetes mellitus, obesity and tobacco abuse who also has chest discomfort. She had presented October 22, 2020 with chest discomfort and went urgently to [facility] where a subtotal LAD stenosis was identified and treated with PCI. She subsequently did well from the cardiovascular standpoint and was discharged on October 25, 2020. She was discharged on metoprolol tartrate, lisinopril, NicoDerm CQ patch, atorvastatin, aspirin and Brilinta. She presents now on November 18, 2020 with chest discomfort and back pain as well as some shortness of breath. The symptoms were worsened with exercise. She did feel the symptoms were similar to her prior presentation. Her presenting electrocardiogram showed sinus rhythm with some inferolateral T wave abnorm alities which are new compared to October 22, 2020 although I do not see another electrocardiogram during that admission and the prior was the day of presentation when she went to the [facility]. Another electrocardiogram done 11/19/2020 at 5:20 AM shows sinus rhythm with inferolateral T wave abnormalities similar to yesterday. Cardiac enzymes are less than 0.015 for the last 3, on presentation it was 0.016 which is essentially undetectable. At the time of my evaluation she is still complaining of some chest tightness although it seems that it has improved from admission. She has no other ca rdiovascular complaints. Unfortunately she has not stop smoking, but she tells me she is taking her medications (including her NicoDerm patch). Allergies Allergy/AdvReac Type Severity Reaction Status Date / Time albiglutide [From [facility]] AdvReac Unknown Unknown Verified 11/18/20 20:08 dulaglutide [From [facility]] AdvReac Unknown Unknown Verified 11/18/20 20:08 Home Medications Medication Instructions Recorded Confirmed Type insulin aspart U-100 100 unit/mL 20 unit SQ TIDM box 05/05/20 11/18/20 History (3 mL) subcutaneous pen (Novolog Flexpen U-100 Insulin aspart) aspirin 81 mg tablet,delayed 81 mg PO QAM 10/16/20 11/18/20 History release clonazepam 0.5 mg tablet (Klonopin) 0.5 mg PO QAM #30 tab 10/20/20 11/18/20 Rx dapagliflozin 10 mg tablet 10 mg PO QAM 10/22/20 11/18/20 History (Farxiga) buspirone 10 mg tablet 10 mg PO TID #90 tab 10/24/20 11/18/20 Rx gemfibrozil 600 mg tablet 600 mg PO BID #60 tab 10/24/20 11/18/20 Rx atorvastatin 40 mg tablet 80 mg PO QAM 30 Days #30 tab 10/25/20 11/18/20 Rx insulin glargine 100 unit/mL (3 45 unit SQ HS 30 Days #0 ml 10/25/20 11/18/20 Rx mL) subcutaneous pen (Lantus Solostar U-100 Insulin) levothyroxine 88 mcg tablet 88 mcg PO DAILYBB 30 Days #30 tab 10/25/20 11/18/20 Rx lisinopril 40 mg tablet 40 mg PO QAM 30 Days #30 tab 10/25/20 11/18/20 Rx metoprolol tartrate 25 mg tablet 25 mg PO BID 30 Days #180 tab 10/25/20 11/18/20 Rx ticagrelor 90 mg tablet (Brilinta) 90 mg PO BID 30 Days #60 tab 10/25/20 11/18/20 Rx nicotine 21 mg/24 hr daily 1 patch TRANSDERMAL DAILY #28 ea 10/27/20 11/18/20 Rx transdermal patch (Nicoderm CQ) fluvoxamine 50 mg tablet 50 mg PO HS #90 tab 11/06/20 11/18/20 Rx nystatin-triamcinolone 100,000 1 applic TOPICAL ONCE #15 g 11/10/20 11/18/20 Rx unit/gram-0.1 % topical ointment clobetasol 0.05 % topical ointment 1 applic TOPICAL UD 11/18/20 11/18/20 History Patient History Medical History Anxiety Arthralgia of multiple sites Depression Diabetes type 2, uncontrolled Dyslipidemia Hypertension Hypokalemia Hyponatremia Hypothyroidism Obesity OCD (obsessive compulsive disorder) Psoriasis Renal insufficiency Serum gamma globulin increased Tobacco abuse Vulvitis Surgical History History of cholecystectomy History of dental surgery History of tonsillectomy Family History Unknown Thyroid disorder Diabetes Father Diabetes Denies family history of Ovarian cancer Prostate cancer Breast cancer Colorectal cancer Uterine cancer Social History Smoking Status: Former smoker Tobacco Type: Cigarettes Cigarettes Per Day: 15; Second Hand Exposure: Yes; Hx Alcohol Use: No Hx Substance Use: No Preferred Language: Bahamian Communication Ability: Effective Continuing Education Director Required: No Beliefs That Will Affect Care: None Current Living Situation: Alone Feels Safe at Home: Yes Safety Concerns Comment: Gets nervous sometimes because she lives alone, gets shaky from anxiety caffeine: Yes Dental Care, Regularly: No Physical Activity Frequency: Does not Exercise Seatbelt Use: always Sunscreen Use: No Assistive Devices: Walker Review of Systems Review of Systems: All systems reviewed & are unremarkable except as noted in HPI & below Physical Exam Physical Exam: Constitutional: Alert, cooperative and in no distress. HEENT: Unremarkable Neck: No jugular venous distention, carotid pulses are normal and equal bilaterally without bruits. Pulmonary: Clear to auscultation bilaterally. Cardiac: Regular rhythm with no murmur, gallop or rub. Abdomen: Soft, nontender with normal bowel sounds. Extremities: No edema. Distal pulses intact. Neurologic: No focal findings. Gait was not tested. Skin: No rash, ecchymoses or petechiae. Results & Data ([facility]) Vital Signs (Past 12 Hours) Vital Signs Temp Pulse Pulse Resp BP Pulse Ox 11/19/20 16:24 36.7 C 71 16 111/75 95 11/19/20 15:38 66 11/19/20 11:44 36.7 C 77 18 110/63 96 11/19/20 07:45 62 11/19/20 07:00 36.7 C 70 18 107/73 94 11/19/20 05:39 62 90/55 L Laboratory Results Cardiac Enzymes 11/18/20 11/19/20 11/19/20 Range/Units 19:55 02:06 06:44 AST 7 L (15-37) U/L Troponin I 0.016 < 0.015 < 0.015 (0-0.045) ng/ml 11/19/20 Range/Units 15:02 AST (15-37) U/L Troponin I < 0.015 (0-0.045) ng/ml Coagulation 11/18/20 11/19/20 11/19/20 Range/Units 19:55 06:44 15:02 PT 9.3 (9.0-12.0) Seconds APTT 33.7 H 51.3 H* (21.0-31.0) Seconds CBC 11/18/20 11/19/20 Range/Units 19:55 02:06 WBC 10.74 9.86 (4.8-10.8) K/uL RBC 4.61 4.18 L (4.2-5.4) M/uL Hgb 13.2 12.2 (12.0-16.0) g/dL Hct 39.8 36.2 L (37-47) % Plt Count 353 362 (130-400) K/uL Neut # (Auto) 6.75 H (1.4-6.5) K/uL Lymph # (Auto) 2.82 (1.2-3.4) K/uL [place] # (Auto) 0.62 H (0.11-0.59) K/uL Eos # (Auto) 0.50 (0-0.5) K/uL Baso # (Auto) 0.02 (0-0.2) K/uL Comprehensive Metabolic Panel 11/18/20 11/19/20 Range/Units 19:55 02:06 Sodium 136 135 L (136-145) mmol/L Potassium 3.5 3.6 (3.5-5.1) mmol/L Chloride 104 105 (98-107) mmol/L Carbon Dioxide 21 23 (21-32) mmol/L BUN 19 H 19 H (7-18) mg/dl Creatinine 1.33 H 1.38 H (0.6-1.2) mg/dl Glucose 361 H* 319 H* (70-99) mg/dl Calcium 9.3 8.7 (8.5-10.1) mg/dl AST 7 L (15-37) U/L ALT 13 (12-78) U/L Alkaline Phosphatase 203 H (45-117) U/L Total Protein 8.2 (6.4-8.2) gm/dl Albumin 3.2 L (3.4-5.0) gm/dl Intake and Output 11/19/20 11/19/20 11/19/20 06:59 14:59 22:59 Intake Total 1000 / 1000 191.2 / 417.55 226.35 / 417.55 Balance 1000 / 1000 191.2 / 417.55 226.35 / 417.55 Intake: IV 1000 / 1000 191.2 / 417.55 226.35 / 417.55 Heparin Sodium/Dextrose 25,000 191.2 / 417.55 226.35 / 417.55 units In 500 ml @ 1,350 UNITS/ HR 27 mls/hr IV .[id number] [facility] Rx #:[id number] Sodium Chloride 0.9% 1000ML 500 1000 / 1000 ml @ 999 mls/hr IV .Q31M ONE Rx#:[id number] Other: Other Intake Source NPO NPO # Unmeasured Voids 3 Weight 97.4 kg Weight Measurement Method Chair Scale Diagnostic Findings Telemetry: Sinus rhythm in the 70s, no significant arrhythmia PG Care Time/CCT Total # of Minutes Spent Total Time Spent with Patient: Total time spent is greater than 50% in coordination of care (as documented) at patient's floor/unit and/or counseling patient: Coding Level of Care Code 30601 Initial Inpt Care Lvl 3 Diagnoses Chest pain R07.9 Chest pain type: unspecified Status post insertion of drug-eluting stent into left anterior descending (LAD) artery Z95.5 CAD (coronary artery disease) I25.10 Coronary Disease-Associated Artery/Lesion type: [place] artery [place] vs. transplanted heart: [place] heart Associated angina: unspecified whether angina present Tobacco abuse Z72.0 (1) Chest pain Chest pain type: unspecified Qualified Code(s): R07.9 - Chest pain, unspecified (2) CAD (coronary artery disease) Coronary Disease-Associated Artery/Lesion type: [place] artery [place] vs. transplanted heart: [place] heart Associated angina: unspecified whether angina present Qualified Code(s): I25.10 - Atherosclerotic heart disease of [place] coronary artery without angina pectoris
--- NOTE | 2020-11-19 19:11 | Hospitalist Progress Note ---
Date of Service November 19, 2020 Assessment & Plan (1) Chest pain: Plan: 60-year-old female past medical history significant for type 2 diabetes not well controlled on insulin therapy, hypertension, hypothyroidism, CAD s/p CHANTAL x2 to proximal and mid LAD on 10/22/20, tobacco use disorder, postmenopausal vaginal bleeding admitted for chest pain rule out. - Reports chest pain was similar to when she presented with NSTEMI; However also has a reproducible component on exam and may be some costochondritis - Initial troponin 0.016 but repeats all < 0.015 - EKG with new T wave inversions in lateral leads which was changed from EKG earlier this month -- Initial consideration for in-stent stenosis - seen by cardiology and does not recommend intervention at this time - Will stop heparin gtt at this time - Continue ASA 81 mg and Brilinta 90 mg BID; Atorvastatin 80 mg daily - Holding Metoprolol and Lisinopril given the lower BPs after nitropaste - if remains stable can resume these tomorrow - Has fungal rash under breasts but unlikely source of pain - Nystatin cream [facility] - Cardiology following - recommend no intervention at this time (2) Diabetes type 2, uncontrolled: Plan: - A1c is 15.8 which is improved from April when it was > 16.9 - Reports BSGs in 400-500s at home; was 300s on admission but improving - Continue Lantus BID with SSI - Can have clinical educator discuss (3) Hypothyroidism: Plan: - TSH WNL in October - Continue Levothyroxine 88 mcg daily (4) Renal insufficiency: Plan: - Cr mildly elevated at 1.38 - seems she is around baseline (5) Anxiety: Plan: - Continue Fluvoxamine 50 mg HS and Buspirone 10 mg TID Plan: - Chest pain is improving. No indication for further cardiac intervention at this time - Can speak with clinical educator and patient would like home services to assist as she is having struggles with maintaining her sugars at home - Recommendations given into the evening and therefore was not discharged. If symptoms improved can D/C tomorrow Admission and Anticipated Discharge Date Admission Date: November 18, 2020 Subjective Reports some improvement with her CP today but seems to be reproducible with palpation suspect more MSK over cardiac. Will stop heparin gtt at this time. Had a lower BP this morning after nitropaste but has improved. Did complain of a headache which is likely from the nitro as well. Notes fungal rash under breasts and will treat. Also reports having difficulty controlling blood sugar (BSGs 400-500) and would like to talk with the clinical educator. Review of Systems Review of Systems: REVIEW OF SYSTEMS General/Constitutional: Denies fever/chills ENT: + headache after nitropaste; Denies visual changes, nasal drainage, hearing loss, sore throat, trouble swallowing Cardiovascular: + chest pain; Denies palpitations, edema Respiratory: Denies cough, sputum, SOB, wheezing, orthopnea GI: Denies nausea, vomiting, abdominal pain, constipation, diarrhea : Denies dysuria Musculoskeletal: Denies joint/muscle aches Neurologic: Denies dizziness/lightheadedness Skin: + soreness and redness under breasts Physical Exam Physical Exam: PHYSICAL EXAM General Appearance: WDWN in NAD who is A&O x 3 HEENT: Head is normocephalic/atraumatic; Hearing grossly intact; Mucous membranes moist Neck: Supple; Trachea midline; Neg JVD Heart: RRR with no M/G/R; reproducible chest pain around 4-5th rib just to the left of the sternum Lungs: CTA in all lung bradley bilaterally; Respirations unlabored; Neg accessory muscle use Abdomen: Soft, non-tender, non-distended; Positive BS x 4 quadrants Extremities: Neg cyanosis or edema Neurological: Speech clear; Gross motor/sensory function intact; Neg focal neurologic deficits Psychiatric: Appropriate mood/affect Skin: Normal Color; Warm/Dry; Erythema under breasts Results & Data Results & Data ([facility]) Vital Signs (Past 12 Hours) Vital Signs Temp Pulse Pulse Resp BP Pulse Ox 11/19/20 16:24 36.7 C 71 16 111/75 95 11/19/20 15:38 66 11/19/20 11:44 36.7 C 77 18 110/63 96 11/19/20 07:45 62 PG Care Time/CCT Total # of Minutes Spent Total Time Spent with Patient: Total time spent is greater than 50% in coordination of care (as documented) at patient's floor/unit and/or counseling patient: Coding Level of Care Code 25990 Subseq Obs Care Lvl 2 Diagnoses Chest pain R07.9 Chest pain type: unspecified Diabetes type 2, uncontrolled E11.65 Hypothyroidism E03.9 Renal insufficiency N28.9 Anxiety F41.9 (1) Chest pain Chest pain type: unspecified Qualified Code(s): R07.9 - Chest pain, unspecified
--- NOTE | 2020-11-19 19:36 | Billing Data ---
Date of Service November 19, 2020 Coding Level of Care Code INT [facility] 70M LVL 3
--- NOTE | 2020-11-19 19:48 | Electrocardiogram Report ---
Test Reason : Blood Pressure : / mmHG Vent. Rate : 086 BPM Atrial Rate : 086 BPM P-R Int : 160 ms QRS Dur : 078 ms QT Int : 348 ms P-R-T Axes : 041 051 -15 degrees QTc Int : 416 ms Normal sinus rhythm Low voltage QRS T wave abnormality, consider inferior ischemia Abnormal ECG When compared with ECG of 22-OCT-2020 14:37, T wave inversion now evident in Inferior leads T wave inversion now evident in Lateral leads Confirmed by Macho Gates ([id number]) on 11/19/2020 7:48:09 PM Referred By: Radha Starkey Confirmed By:Macho Gates
--- NOTE | 2020-11-19 19:58 | Electrocardiogram Report ---
Test Reason : Blood Pressure : / mmHG Vent. Rate : 068 BPM Atrial Rate : 068 BPM P-R Int : 168 ms QRS Dur : 076 ms QT Int : 410 ms P-R-T Axes : 045 051 -23 degrees QTc Int : 435 ms Normal sinus rhythm T wave abnormality, consider inferior ischemia Abnormal ECG When compared with ECG of 18-NOV-2020 19:38, (unconfirmed) No significant change was found Confirmed by Macho Gates ([id number]) on 11/19/2020 7:57:57 PM Referred By: Radha Starkey Confirmed By:Macho Gates
[2020-11-19] MEDS ORDERED: fluvoxaMINE MALEATE 50 MG TAB PO SCH (21:00)
[2020-11-20] MEDS: ACETAMINOPHEN 325 MG TAB PO PRN ×2 (03:12→18:29)
[2020-11-20] MEDS: LEVOTHYROXINE SODIUM 88 MCG TABLET PO SCH (05:38)
[2020-11-20 07:36] LABS: Partial Thromboplastin Ratio 0.8; Partial Thromboplastin Time 22.2 Seconds (21.0-31.0)
[2020-11-20 07:48] LABS: BUN Creatinine Ratio 16.2 (10-20); Calcium 9.1 mg/dl (8.5-10.1); Creatinine Clr Calc Pharmacy 54.8 ml/min; Est GFR (African American) 58.9 ml/min; Est GFR (Non-African American) 50.8 ml/min; Potassium 4.2 mmol/L (3.5-5.1)
[2020-11-20] MEDS: NICOTINE 21 MG/24 HR TDSY TD SCH (09:27)
[2020-11-20] MEDS: LIDOCAINE 5% 1 PATCH TD SCH (09:27)
[2020-11-20] MEDS: INSULIN ASPART 100 UNITS/ML 3 ML PEN SC SCH ×3 (09:28→18:16)
[2020-11-20] MEDS: INSULIN GLARGINE SOLOSTAR 100 UNITS/ML 3 ML PEN SC SCH (09:29)
[2020-11-20] MEDS: TICAGRELOR 90 MG TAB PO SCH (09:33)
[2020-11-20] MEDS: ASPIRIN 81 MG ECTAB PO SCH (09:33)
[2020-11-20] MEDS: busPIRone 5 MG TAB PO SCH ×2 (09:33→13:52)
[2020-11-20] MEDS: NYSTATIN CR 15 GM TUBE EXT SCH ×2 (09:34→13:54)
[2020-11-20] MEDS: ATORVASTATIN 40 MG TAB PO SCH (09:34)
[2020-11-20] MEDS: clonazePAM 0.5 MG TAB PO SCH (09:41)
[2020-11-20] MEDS: HEPARIN SODIUM/DEXTROSE 25,000 UNITS/500 ML BAG IV SCH (09:46)
[2020-11-20] MEDS ORDERED: PHARMACY GLYCEMIC MGMT CONSULT PRN (12:17)
--- NOTE | 2020-11-20 13:46 | Pharmacy Report ---
Pharmacy Glycemic Short Note 2 - Date of Service November 20, 2020 - Glycemic Short BSG Results (Last 24 hours): 11/19/20 11/19/20 11/20/20 16:43 20:01 05:43 Glucose 219 H POC Glucose 131 H 177 H 11/20/20 11/20/20 11/20/20 08:18 12:01 12:03 Glucose POC Glucose 220 H 343 H* 367 H* OUTPATIENT ANTIDIABETIC REGIMEN: * Lantus 45 units HS, Novolog 20 units TIDM, Damari * A1c 15.8 on 10/23 ASSESSMENT: * 60 year old admitted with CAD/chest pain, recently admitted last month s/p stent placement. Pharmacy consulted for glycemic management * On last admission, patient requiring 60 units of basal, CF 12 / CR 4. Blood sugars since admission elevated. BSG 367 mg/dL at time of consult * Plan to tighten novolog based off parameters from last admission. Will trend PLAN FOR INPATIENT GLYCEMIC CONTROL: * Hold outpatient oral diabetes medications * Basal insulin * Lantus 30 units bid * Bolus insulin * NovoLog per scale ACHS or Q6hrs while NPO * Goal Range: Low 110 mg/dL - High 140 mg/dL * Correction Factor: 12 mg/dL/unit * Nutritional / Prandial insulin per carb ratio of 1 unit per 4 grams CHO consumed PLAN FOR DISCHARGE: * A1c 15.8 - goal <7% * On last admission, pharmacy was consulted and had recommended Lantus 60 units once daily and Novolog 20 units TIDM (Patient previously on Lantus 40 units, Novolog 14 units TIDM) * Will trend blood sugars this admission to determine if plan for discharge needs adjustments
--- NOTE | 2020-11-20 14:33 | Electrocardiogram Report ---
Test Reason : Blood Pressure : / mmHG Vent. Rate : 075 BPM Atrial Rate : 075 BPM P-R Int : 164 ms QRS Dur : 072 ms QT Int : 394 ms P-R-T Axes : 041 059 -08 degrees QTc Int : 439 ms Poor data quality, interpretation may be adversely affected Normal sinus rhythm Low voltage QRS Nonspecific T wave abnormality Abnormal ECG When compared with ECG of 19-NOV-2020 05:21, No significant change was found Confirmed by Omer Andrade ([id number]) on 11/20/2020 2:32:49 PM Referred By: Radha Starkey Confirmed By:Norberto Andrade
--- NOTE | 2020-11-20 14:45 | Discharge Summary ---
Date of Service November 20, 2020 Admission HPI Per Admitting Provider 60-year-old female past medical history significant for type 2 diabetes not well controlled on insulin therapy, hypertension, hypothyroidism, CAD s/p CHANTAL x2 to proximal and mid LAD on 10/22/20, tobacco use disorder, postmenopausal vaginal bleeding undergoing work-up by [facility] presents for midsternal chest pain that started at 8 PM yesterday but has since worsened with radiation down the left arm this afternoon. Was not doing anything in particular at the time of symptoms. Did endorse associated occasional shortness of breath at time of arrival but does not complain of such at this point. Mildly nauseous earlier t roz but feeling well now. No episodes of emesis or diaphoresis. Of note, patient's most recent A1c was 15.8% and her Lantus was recently increased to 60 units nightly with 20 units NovoLog with meals. Last admission she was also started on DAPT with aspirin/Brilinta, and high intensity statin therapy. She reports good adherence to these medicines. Echocardiogram performed last admission unable to evaluate for motion abnormalities due to body habitus. In the ER patient was noted to be normotensive, non-tachycardic, non-tachypneic, saturating well on room air. Lab work notable for elevated creatinine 1.33 which is near normal for patient, BSG 361, alk phos 203 which is mildly elevated compared to typical. Noted to have a detectable troponin at 0.016. COVID-19 test negative. Principal Diagnosis chest pain Discharge Exam General Appearance: WDWN in NAD who is A&O x 3 HEENT: Head is normocephalic/atraumatic; Hearing grossly intact; Mucous membranes moist Neck: Supple; Trachea midline; Neg JVD Heart: RRR with no M/G/R; reproducible chest pain around 4-5th rib just to the left of the sternum Lungs: CTA in all lung bradley bilaterally; Respirations unlabored; Neg accessory muscle use Abdomen: Soft, non-tender, non-distended; Positive BS x 4 quadrants Extremities: Neg cyanosis or edema Neurological: Speech clear; Gross motor/sensory function intact; Neg focal neurologic deficits Psychiatric: Appropriate mood/affect Skin: Normal Color; Warm/Dry; Discharge Data Allergies Allergy/AdvReac Type Severity Reaction Status Date / Time albiglutide [From [facility]] AdvReac Unknown Unknown Verified 11/18/20 20:08 dulaglutide [From [facility]] AdvReac Unknown Unknown Verified 11/18/20 20:08 Consultations 11/18/20 21:23 ED Decision to Admit Stat 11/18/20 22:38 Consult Cardiology Routine Hospital Course (1) Chest pain: 60-year-old female past medical history significant for type 2 diabetes not well controlled on insulin therapy, hypertension, hypothyroidism, CAD s/p CHANTAL x2 to proximal and mid LAD on 10/22/20, tobacco use disorder, postmenopausal vaginal bleeding admitted for chest pain rule out. - Reports chest pain was similar to when she presented with NSTEMI; However also has a reproducible component on exam and may be some costochondritis - Initial troponin 0.016 but repeats all < 0.015 - EKG with new T wave inversions in lateral leads which was changed from EKG earlier this month -- Initial consideration for in-stent stenosis - seen by cardiology and does not recommend intervention at this time - Will stop heparin gtt at this time - Continue ASA 81 mg and Brilinta 90 mg BID; Atorvastatin 80 mg daily - Holding Metoprolol and Lisinopril given the lower BPs after nitropaste - if remains stable can resume these tomorrow - Has fungal rash under breasts but unlikely source of pain - Nystatin cream TONI - Cardiology following - recommend no intervention at this time On day of discharge, Patient was asking to stay another day. When asking why, she stated she did not have a ride. Patient was updated and was reassured by myself and Dr. Andrade that this pain is likley non cardiac. Cardiac markers were negative and repeat echo was negative. Later in the day patient was able to obtain a ride home. (2) Diabetes type 2, uncontrolled: - A1c is 15.8 which is improved from April when it was > 16.9 - Reports BSGs in 400-500s at home; was 300s on admission but improving - Continue Lantus BID with SSI - Can have paraeducator discuss (3) Hypothyroidism: - TSH WNL in October - Continue Levothyroxine 88 mcg daily (4) Renal insufficiency: - Cr mildly elevated at 1.38 - seems she is around baseline (5) Anxiety: - Continue Fluvoxamine 50 mg HS and Buspirone 10 mg TID - Chest pain is improving. No indication for further cardiac intervention at this time - Can speak with paraeducator and patient would like home services to assist as she is having struggles with maintaining her sugars at home - Recommendations given into the evening and therefore was not discharged. If symptoms improved can D/C tomorrow Total Time Total Time Spent Total Time Spent (In Minutes): 32 Discharge Plan Discharge Items Patient Disposition: Home - Self-Care Reason For Visit: CHEST PAIN R/O Discharge Diagnosis: chest pain Condition on Discharge: Fair Activity: Resume your previous activity Non-emergency contact: Primary Care Provider Call non-emergency contact if: you have any medication questions Follow-up/Referrals: Prashant Pina III, MD [Primary Care Provider] - 11/29/20 11:00 am Diet: Regular Addtl Attending Provider Instructions: You were seen for a chest pain rule out. You were evaluated by Cardiology. It was determined that your chest pain did not appear to be related with your heart. Recommend followup with your PCP in 1-2 weeks. Restart Lisinopril tomorrow Restart Metoprolol on Friday. Pending Studies at Discharge: No Stand-Alone Forms: My [facility] Bi[facility], Smoking Cessation Medications and DC Order Prescriptions: Continued gemfibrozil 600 mg tablet 600 mg PO BID Qty: 60 RF: 11 buspirone 10 mg tablet 10 mg PO TID Qty: 90 RF: 11 fluvoxamine 50 mg tablet 50 mg PO HS Qty: 90 RF: 3 nystatin-triamcinolone 100,000-0.1 unit/gram-% ointment 1 applic topical ONCE Qty: 15 RF: 1 insulin aspart U-100 [Novolog Flexpen U-100 Insulin] 100 unit/mL (3 mL) insulin pen 20 unit SQ TIDM RF: 0 nicotine [Nicoderm CQ] 21 mg/24 hr patch 24 hour 1 patch transdermal DAILY Qty: 28 RF: 0 aspirin 81 mg tablet,delayed release (DR/EC) 81 mg PO QAM RF: 0 Farxiga 10 mg tablet 10 mg PO QAM RF: 0 levothyroxine 88 mcg tablet 88 mcg PO DAILYBB 30 Days Qty: 30 RF: 0 lisinopril 40 mg tablet 40 mg PO QAM 30 Days Qty: 30 RF: 0 metoprolol tartrate 25 mg tablet 25 mg PO BID 30 Days Qty: 180 RF: 1 clobetasol 0.05 % ointment 1 applic topical UD RF: 0 No Action clonazepam [Klonopin] 0.5 mg tablet 0.5 mg PO QAM Qty: 30 RF: 0 Lantus Solostar U-100 Insulin 100 unit/mL (3 mL) insulin pen See Rx Instructions .ROUTE .COMPLEX Qty: 30 RF: 5 atorvastatin 40 mg tablet 80 mg PO QAM 90 Days Qty: 180 RF: 3 Brilinta 90 mg tablet 90 mg PO BID 90 Days Qty: 180 RF: 3 Discharge Orders: Discharge Order (Routine); Ordered 11/20/20 Ordered By: Monty Yeh Admission Data Admit Date/Time: 11/18/20 21:48 Attending Provider: Monty Yeh Admit Provider: Chasity Roberts Primary Care Provider: Prashant Pina III Other Providers: Macho Gates ; Laurent Gaytan Other Interventions: Discharge Summary Assessment (RN) Last Done: 11/20/20 17:50 Coding Level of Care Code D/C DAY MANAGEMENT >30 MINS Diagnoses Chest pain R07.9 Chest pain type: unspecified Diabetes type 2, uncontrolled E11.65 Hypothyroidism E03.9 Renal insufficiency N28.9 Anxiety F41.9 Time Spent (min) 32
[2020-11-20] MEDS ORDERED: NYSTATIN POWDER 15GM BTL EXT PRN (14:50)
--- NOTE | 2020-11-20 16:57 | XCELERA ---
[id number]
[2020-11-21] MEDS ORDERED: INSULIN ASPART 100 UNITS/ML 3 ML PEN SC SCH
== END 2020-11-20 19:21 | disposition home or self-care (01) ==
LOC: 2W 19:24 → ED 19:24 → SUATTDRO 21:48 → 2W 11-19 00:19

== ENCOUNTER 2021-04-03 18:39 | Inpatient (IN) ==
--- NOTE | 2021-04-03 20:00 | XRay Report ---
XR chest 2V PA/lateral CLINICAL HISTORY: Upper abdominal pain. Evaluate lung bases. COMPARISON STUDY: 11/18/2020 TECHNIQUE: 2 views of the chest FINDINGS: Frontal and lateral radiographs of the chest demonstrate the cardiomediastinal silhouette to be withi n normal limits. There is a decreased inspiratory effort with elevation of the hemidiaphragms and acrobatic dancer wding of the bronchovascular markings at the lung bases and centrally. The lungs are clear of alveola r opacities. There is no evidence for effusion bilaterally. There is no evidence for vascular congest ion. There is no acute osseous pathology. IMPRESSION: 1. Compared to the previous examination, there is a decreased inspiratory effort with otherwise no ac osage chest disease. ACT 112: Negative or not required by law. Electronically signed by: Renaldo Bone M.D. 04/03/2021 7:58 PM
[2021-04-03 20:22] LABS: Basophils # (auto) 0.02 K/uL (0-0.2); Basophils % (auto) 0.1 %; Eosinophils # (auto) 0.19 K/uL (0-0.5); Eosinophils % (auto) 1.2 %; Hematocrit (blood only) 42.7 % (37-47); Hemoglobin 14.4 g/dL (12.0-16.0); Immature Granulocytes # (auto) 0.06 K/uL (0.00-0.02); Immature Granulocytes % (auto) 0.4 %; Lymphocytes # (auto) 2.92 K/uL (1.2-3.4); Lymphocytes % (auto) 18.6 %; Mean Corpuscular Hemoglobin 27.8 pg (25-34); Mean Corpuscular Hgb Conc 33.7 g/dL (32-36); Mean Corpuscular Volume 82.4 fL (80-100); Mean Platelet Volume 10.5 fL (7.4-10.4); Monocytes # (auto) 0.75 K/uL (0.11-0.59); Monocytes % (auto) 4.8 %; Neutrophils # (auto) 11.73 K/uL (1.4-6.5); Neutrophils % (auto) 74.9 %; Platelet Count 309 K/uL (130-400); RDW Standard Deviation 41.7 fL (36.4-46.3); Red Blood Count 5.18 M/uL (4.2-5.4); White Blood Count 15.67 K/uL (4.8-10.8)
[2021-04-03] MEDS ORDERED: KETOROLAC TROMETHAMINE 15 MG/ML VIAL IV STA ×2 (20:29→22:12)
[2021-04-03] MEDS ORDERED: ONDANSETRON INJ 2 MG/ML 2 ML VIAL IV STA (20:29)
[2021-04-03 20:45] LABS: Albumin Globulin Ratio 0.9 (0.9-2); Albumin Level 3.6 gm/dl (3.4-5.0); BUN Creatinine Ratio 7.1 (10-20); Bilirubin,Total 0.4 mg/dl (0.2-1.0); Calcium 8.3 mg/dl (8.5-10.1); Creatinine Clr Calc Pharmacy 72.3 ml/min; Est GFR (African American) 86.9 ml/min; Potassium 2.7 mmol/L (3.5-5.1); Total Protein 7.6 gm/dl (6.0-8.3)
[2021-04-03] MEDS ORDERED: OPTIRAY 320 100ml IV ONE (21:12)
--- NOTE | 2021-04-03 21:30 | CT Scan Report ---
CT abd pelvis IV con only CLINICAL HISTORY: Abdominal pain with nausea and vomiting. Evaluate for obstruction. COMPARISON STUDY: 10/16/2020 CT DOSE: 1587.84 mGy.cm TECHNIQUE: Standard CT of the Abdomen and Pelvis was performed with IV contrast. A dose lowering marianne hnique was utilized adhering to the principles of ALARA. Contrast Volume: Optiray 320, 94 ml. The patient did not receive oral contrast. FINDINGS: Lung base: The lung bases are clear. Abdominal cavity: There is no evidence for abdominal mass, adenopathy or ascites. Liver: There is homogeneous attenuation of the liver parenchyma. There is no evidence for enhancing m ass lesion. Spleen: There is homogeneous attenuation of the splenic parenchyma. There is no enhancing mass lesion . Pancreas: There is homogeneous attenuation of the pancreatic parenchyma. There is no evidence for mas s lesion or peripancreatic fluid collection. Gall Bladder: Surgical clips are present. Adrenal glands: The adrenal glands are normal in size and attenuation. There is no evidence for enhan cing mass lesion. Kidneys: There is homogeneous attenuation of the renal parenchyma bilaterally. There is no evidence f or renal calculus or hydronephrosis. There is no evidence for enhancing mass. Bowel: There are fluid-filled loops of small bowel present throughout the abdomen and pelvis without evidence for dilatation or obstruction.. The findings are characteristic of an ileus versus gastroent eritis. There is sigmoid diverticulosis without evidence for diverticulitis. There are no inflammator y changes present. There is no evidence for free air. There is a normal appendix in the right lower q uadrant. Bladder: The bladder is within normal limits with no evidence for focal mass, calculus or diverticulu m. : There is no evidence for pelvic mass or adenopathy. There is no evidence for pelvic ascites. Calc ified uterine fibroids are present. Vasculature: There is no evidence for aneurysmal dilatation of the abdominal aorta. Atherosclerotic c alcification is present. Osseous structures: There is no acute osseous pathology. Degenerative changes are present. IMPRESSION: 1. Fluid-filled loops of small bowel throughout the abdomen and pelvis without evidence for dispropor tionate dilatation or obstruction. The findings are characteristic of an ileus versus gastroenteritis . 2. Sigmoid diverticulosis without evidence for diverticulitis. 3. Additional nonacute findings as delineated above. ACT 112: Negative or not required by law. Electronically signed by: Renaldo Bone M.D. 04/03/2021 9:29 PM
[2021-04-03 21:51] LABS: Magnesium 1.4 mg/dl (1.7-2.4)
[2021-04-03] MEDS ORDERED: POTASSIUM CHLORIDE 10 MEQ TABCR PO STA (21:59)
[2021-04-03] MEDS ORDERED: POTASSIUM CHLORIDE / WTR 10 MEQ/100 ML PLCT IV SCH (22:00)
[2021-04-03] MEDS: MAGNESIUM SULFATE / D5W 1 GM/100 ML BAG IV SCH ×2 (22:16→23:33)
[2021-04-03] MEDS: NSS + 20MEQ KCL 20 MEQ/1,000 ML BAG IV SCH (22:16)
--- NOTE | 2021-04-03 23:02 | History & Physical Report ---
Date of Service April 03, 2021 Assessment & Plan (1) Gastroenteritis: Plan: Unknown etiology at this time- Treat with bowel rest NPO except essential medications Placed on IV fluids Zofran 4 mg IV every 6 hours as needed Famotidine 20 mg IV every 12 hours (2) Acute hypokalemia: Plan: Replacing with both oral and IV. Repeat laboratories in a.m. (3) Hypomagnesemia: Plan: Status post 2 g of magnesium sulfate IV in the ED Recheck laboratories in a.m. (4) CAD (coronary artery disease): Plan: CAD/hypertension/NSTEMI/LAD stent- Continue aspirin, metoprolol tartrate and Brilinta Hold lisinopril (5) NSTEMI (non-ST elevated myocardial infarction): Plan: See above (6) S/P coronary artery stent placement: Plan: See above (7) OCD (obsessive compulsive disorder): Plan: OCD/anxiety- Continue clonazepam, fluvoxamine (8) Hypothyroidism: Plan: Continue levothyroxine (9) Hypertension: Plan: See above (10) Dyslipidemia: Plan: Hold atorvastatin (11) Diabetes type 2, uncontrolled: Plan: Reduce Lantus insulin from 50 to 20 units subcu at bedtime Place on Accu-Cheks before meals and at bedtime with NovoLog coverage per scale (12) Tobacco abuse: Plan: Current tobacco user Cessation counseling NicoDerm patch if needed History of Present Illness Chief Complaint: The patient presents emergency department complaint of abdominal his pain, nausea and vomiting, with need to vomit up food immediately after eating, recurring over the past few weeks, but now worsening. Primary Care Provider: Omer Marroquin MD The patient is a 60-year-old female with a past medical history including depression, OCD, psoriasis, drug-induced tremor, cervical mass, vulvitis, non- STEMI, LAD CHANTAL, CAD, obesity, hypothyroidism, hypertension, tobacco abuse, dyslipidemia and diabetes mellitus. She presents with symptoms as noted above, and does not include diarrhea, or associated with any particular food intake either at home or eating out. Significant laboratories: Potassium 2.7, magnesium 1.4, glucose 294. CT of abdomen and pelvis consistent with ileus versus gastroenteritis From the ED the patient received the following: Magnesium sulfate 2 g IV, potassium chloride 20 mEq IV, Toradol 15 mg IV x2 and potassium chloride 40 mEq p.o. x1 Allergies Allergy/AdvReac Type Severity Reaction Status Date / Time albiglutide [From [facility]] AdvReac Unknown Unknown Verified 04/03/21 22:11 dulaglutide [From [facility]] AdvReac Unknown Unknown Verified 04/03/21 22:11 Home Medications Medication Instructions Recorded Confirmed Type aspirin 81 mg tablet,delayed 81 mg PO QAM 10/16/20 04/03/21 History release dapagliflozin 10 mg tablet 10 mg PO QAM 10/22/20 04/03/21 History ([facility]) buspirone 10 mg tablet 10 mg PO TID #90 tab 10/24/20 04/03/21 Rx lisinopril 40 mg tablet 40 mg PO QAM 30 Days #30 tab 10/25/20 04/03/21 Rx metoprolol tartrate 25 mg tablet 25 mg PO BID 30 Days #180 tab 10/25/20 04/03/21 Rx nystatin-triamcinolone 100,000 1 applic TOPICAL ONCE #15 g 11/10/20 04/03/21 Rx unit/gram-0.1 % topical ointment ticagrelor 90 mg tablet (Brilinta) 90 mg PO BID 90 Days #180 tab 11/21/20 04/03/21 Rx insulin glargine 100 unit/mL (3 50 unit SUBCUT HS milliliter 12/14/20 04/03/21 History mL) subcutaneous pen (Lantus Solostar U-100 Insulin) insulin lispro 100 unit/mL 20 unit SUBCUT TID #15 ml 03/14/21 04/03/21 Rx subcutaneous pen (Humalog KwikPen (U-100) Insulin) nystatin 100,000 unit/gram topical 1 applic TOPICAL BID #60 g 03/14/21 04/03/21 Rx powder atorvastatin 80 mg tablet 80 mg PO QAM 03/15/21 04/03/21 History fluvoxamine 50 mg tablet 50 mg PO HS 03/15/21 04/03/21 History levothyroxine 88 mcg tablet 88 mcg PO QAM 03/15/21 04/03/21 History clonazepam 0.5 mg tablet (Klonopin) 0.5 mg PO QAM #30 tab 03/27/21 04/03/21 Rx Past Med/Surg History Medical History Anxiety CAD (coronary artery disease) No remaining occlusive disease after 2 LAD drug eluting stents 10/22/20. Follows with Dr. Harris Chronic headaches Depression Diabetes type 2, uncontrolled IDDM Dyslipidemia Hypertension Hypothyroidism NSTEMI (non-ST elevated myocardial infarction) 10/22/2020 s/p 2 CHANTAL Obesity Osteoarthritis Renal insufficiency Tobacco abuse Surgical History History of cardiac catheterization 10/22/2020 Dominant: Right Left Main (% Stenosis): Normal LAD (% Stenosis): Proximal (99) and Mid (75) Circumflex (% Stenosis): Normal (luminal irregularities) RCA (% Stenosis): Normal (Luminal irregularities) 2 CHANTAL to LAD History of cholecystectomy History of dental surgery History of tonsillectomy S/P coronary artery stent placement 2 CHANTAL to LAD 10/22/2020 Family History Unknown Diabetes Thyroid disorder Father Diabetes Other No family history of adverse response to anesthesia Denies family history of Ovarian cancer Prostate cancer Breast cancer Colorectal cancer Uterine cancer Social History Smoking Status: Current every day smoker Tobacco Type: Cigarettes packs per day: 0.5; Cigarettes Per Day: 10; Second Hand Exposure: No; Do You Dip or Chew Tobacco: No; Tobacco Cessation Education Requested by Patient: Yes Hx Alcohol Use: No Hx Substance Use: No Preferred Language: Mongolian Communication Ability: Effective Alteration Worker Required: No Beliefs That Will Affect Care: None marital status: Single Current Living Situation: Alone Other Information That Helps Us Care for You: No Feels Safe at Home: Yes Safety Concerns: Feels Safe At This Time Safety Concerns Comment: Gets nervous sometimes because she lives alone, gets shaky from anxiety caffeine: Yes Dental Care, Regularly: No Physical Activity Frequency: Does not Exercise Seatbelt Use: always Sunscreen Use: No Assistive Devices: Glasses Review of Systems Review of Systems: The patient denies chest pain, palpitations, shortness of breath, dyspnea on exertion, cough, lower extremity swelling, sore throat, fevers, chills, sweats, diarrhea blood in urine or stool, dysuria, urinary frequency or urgency, lightheadedness, dizziness, headache, memory loss, loss of consciousness, rash, abnormal bruising or bleeding, imbalance, focal or generalized weakness, numbness or tingling in arms or legs, generalized arthralgias or myalgias, back or neck pain, or night sweats. The review of systems is otherwise negative other than for that already noted above, and at least 10 systems have been reviewed. Physical Exam Physical Exam: The patient is awake, alert and oriented 3, well developed and well nourished, normocephalic and atraumatic, lying in bed and in no acute distress. HEENT--PERRL, EOMI, mucous membranes and oropharynx dry. Neck--supple. No JVD. No bruits. Thyroid normal, trachea midline, no adenopathy. Heart--normal S1 and S2. No murmurs, rubs or gallops. Lungs--clear bilaterally, no respiratory distress, no accessory muscle use. Abdomen--normal bowel sounds and soft. Nontender. Nondistended. Obese Extremities--no cyanosis or clubbing. No edema. Dermatologic--normal skin turgor, normal color, no abnormal lymph nodes, no rash. Neurologic--cranial nerves II through XII grossly intact. Rheumatologic--normal range of motion. Psychiatric--normal affect. Results & Data Results & Data ([facility]) Vital Signs (Past 12 Hours) Vital Signs Temp Pulse Pulse Resp BP BP Pulse Ox 04/03/21 20:39 78 14 147/88 H 95 04/03/21 18:44 36.6 C 82 20 166/96 H 97 Laboratory Results Laboratory Results WBC 15.67 K/uL (4.8-10.8) H 04/03/21 20:10 RBC 5.18 M/uL (4.2-5.4) 04/03/21 20:10 Hgb 14.4 g/dL (12.0-16.0) 04/03/21 20:10 Hct 42.7 % (37-47) 04/03/21 20:10 MCV 82.4 fL (80-100) 04/03/21 20:10 MCH 27.8 pg (25-34) 04/03/21 20:10 MCHC 33.7 g/dL (32-36) 04/03/21 20:10 RDW Std Deviation 41.7 fL (36.4-46.3) 04/03/21 20:10 RDW Coeff of Umair 14.0 % (11.5-14.5) 04/03/21 20:10 Plt Count 309 K/uL (130-400) 04/03/21 20:10 MPV 10.5 fL (7.4-10.4) H 04/03/21 20:10 Immature Gran % (Auto) 0.4 % 04/03/21 20:10 Neut % (Auto) 74.9 % 04/03/21 20:10 Lymph % (Auto) 18.6 % 04/03/21 20:10 [place] % (Auto) 4.8 % 04/03/21 20:10 Eos % (Auto) 1.2 % 04/03/21 20:10 Baso % (Auto) 0.1 % 04/03/21 20:10 Neut # (Auto) 11.73 K/uL (1.4-6.5) H 04/03/21 20:10 Lymph # (Auto) 2.92 K/uL (1.2-3.4) 04/03/21 20:10 [place] # (Auto) 0.75 K/uL (0.11-0.59) H 04/03/21 20:10 Eos # (Auto) 0.19 K/uL (0-0.5) 04/03/21 20:10 Baso # (Auto) 0.02 K/uL (0-0.2) 04/03/21 20:10 Immature Gran # (Auto) 0.06 K/uL (0.00-0.02) H 04/03/21 20:10 Sodium 137 mmol/L (136-145) 04/03/21 20:10 Potassium 2.7 mmol/L (3.5-5.1) L 04/03/21 20:10 Chloride 93 mmol/L (98-107) L 04/03/21 20:10 Carbon Dioxide 30 mmol/L (21-32) 04/03/21 20:10 Anion Gap 14 (3-11) H 04/03/21 20:10 BUN 6 mg/dl (6-23) 04/03/21 20:10 Creatinine 0.84 mg/dl (0.6-1.2) 04/03/21 20:10 Est Cr Clr Drug Dosing 72.3 ml/min 04/03/21 20:10 Est GFR ( Amer) 86.9 ml/min 04/03/21 20:10 Est GFR (Non-Af Amer) 75.0 ml/min 04/03/21 20:10 BUN/Creatinine Ratio 7.1 (10-20) L 04/03/21 20:10 Glucose 294 mg/dl (70-99(Fasting)) H 04/03/21 20:10 POC Glucose 267 mg/dl (70-99) H 04/04/21 00:17 Calcium 8.3 mg/dl (8.5-10.1) L 04/03/21 20:10 Magnesium 1.4 mg/dl (1.7-2.4) L 04/03/21 20:10 Total Bilirubin 0.4 mg/dl (0.2-1.0) 04/03/21 20:10 AST 17 U/L (13-39) 04/03/21 20:10 ALT 18 U/L (7-52) 04/03/21 20:10 Alkaline Phosphatase 170 U/L (34-104) H 04/03/21 20:10 Total Protein 7.6 gm/dl (6.0-8.3) 04/03/21 20:10 Albumin 3.6 gm/dl (3.4-5.0) 04/03/21 20:10 Globulin 4.0 gm/dl (2.5-4.0) 04/03/21 20:10 Albumin/Globulin Ratio 0.9 (0.9-2) 04/03/21 20:10 Lipase 9 U/L (11-82) L 04/03/21 20:10 Urine Color Yellow 04/04/21 Unknown Urine Appearance Clear (Clear) 04/04/21 Unknown Urine pH 5.5 (4.5-7.5) 04/04/21 Unknown Ur Specific [place] > 1.045 (1.000-1.030) H 04/04/21 Unknown Urine Protein Negative (Negative) 04/04/21 Unknown Urine Glucose (UA) 3+ (Negative) H 04/04/21 Unknown Urine Ketones Negative (Negative) 04/04/21 Unknown Urine Blood Negative (Negative) 04/04/21 Unknown Urine Nitrite Negative (Negative) 04/04/21 Unknown Urine Bilirubin Negative (Negative) 04/04/21 Unknown Urine Urobilinogen Negative (Negative) 04/04/21 Unknown Ur Leukocyte Esterase Negative (Negative) 04/04/21 Unknown SARS-CoV-2, RNA, NAAT NEGATIVE (NEGATIVE) 04/03/21 22:20 Impressions Chest X-Ray 04/03/21 18:48 XR chest 2V PA/lateral CLINICAL HISTORY: Upper abdominal pain. Evaluate lung bases. COMPARISON STUDY: 11/18/2020 TECHNIQUE: 2 views of the chest FINDINGS: Frontal and lateral radiographs of the chest demonstrate the cardiomediastinal silhouette to be within normal limits. There is a decreased inspiratory effort with elevation of the hemidiaphragms and crowding of the bronchovascular markings at the lung bases and centrally. The lungs are clear of alveolar opacities. There is no evidence for effusion bilaterally. There is no evidence for vascular congestion. There is no acute osseous pathology. IMPRESSION: 1. Compared to the previous examination, there is a decreased inspiratory effort with otherwise no acute chest disease. ACT 112: Negative or not required by law. Electronically signed by: Renaldo Bone M.D. 04/03/2021 7:58 PM Abdomen/Pelvis CT 04/03/21 20:29 CT abd pelvis IV con only CLINICAL HISTORY: Abdominal pain with nausea and vomiting. Evaluate for ob struction. COMPARISON STUDY: 10/16/2020 CT DOSE: 1587.84 mGy.cm TECHNIQUE: Standard CT of the Abdomen and Pelvis was performed with IV contrast. A dose lowering technique was utilized adhering to the principles of ALARA. Contrast Volume: Optiray 320, 94 ml. The patient did not receive oral contrast. FINDINGS: Lung base: The lung bases are clear. Abdominal cavity: There is no evidence for abdominal mass, adenopathy or ascites. Liver: There is homogeneous attenuation of the liver parenchyma. There is no evidence for enhancing mass lesion. Spleen: There is homogeneous attenuation of the splenic parenchyma. There is no enhancing mass lesion. Pancreas: There is homogeneous attenuation of the pancreatic parenchyma. There is no evidence for mass lesion or peripancreatic fluid collection. Gall Bladder: Surgical clips are present. Adrenal glands: The adrenal glands are normal in size and attenuation. There is no evidence for enhancing mass lesion. Kidneys: There is homogeneous attenuation of the renal parenchyma bilaterally. There is no evidence for renal calculus or hydronephrosis. There is no evidence for enhancing mass. Bowel: There are fluid-filled loops of small bowel present throughout the abdomen and pelvis without evidence for dilatation or obstruction.. The findings are characteristic of an ileus versus gastroenteritis. There is sigmoid divertic ulosis without evidence for diverticulitis. There are no inflammatory changes present. There is no evidence for free air. There is a normal appendix in the right lower quadrant. Bladder: The bladder is within normal limits with no evidence for focal mass, calculus or diverticulum. : There is no evidence for pelvic mass or adenopathy. There is no evidence for pelvic ascites. Calcified uterine fibroids are present. Vasculature: There is no evidence for aneurysmal dilatation of the abdominal aorta. Atherosclerotic calcification is present. Osseous structures: There is no acute osseous pathology. Degenerative changes are present. IMPRESSION: 1. Fluid-filled loops of small bowel throughout the abdomen and pelvis without evidence for disproportionate dilatation or obstruction. The findings are characteristic of an ileus versus gastroenteritis. 2. Sigmoid diverticulosis without evidence for diverticulitis. 3. Additional nonacute findings as delineated above. ACT 112: Negative or not required by law. Electronically signed by: Renaldo Bone M.D. 04/03/2021 9:29 PM Code Status & VTE Plan Code Status Full code VTE Prophylaxis Plan VTE Prophylaxis will be ordered: Yes PG Care Time/CCT Total # of Minutes Spent Total Time Spent with Patient: Total time spent is greater than 50% in coordination of care (as documented) at patient's floor/unit and/or counseling patient: Coding Level of Care Code 02959 Initial Inpt Care Lvl 3 Diagnoses Acute hypokalemia E87.6 Hypomagnesemia E83.42 OCD (obsessive compulsive disorder) F42.9 NSTEMI (non-ST elevated myocardial infarction) I21.4 S/P coronary artery stent placement Z95.5 CAD (coronary artery disease) I25.10 Coronary Disease-Associated Artery/Lesion type: [place] artery [place] vs. transplanted heart: [place] heart Associated angina: unspecified whether angina present Hypothyroidism E03.9 Hypertension I10 Dyslipidemia E78.5 Diabetes type 2, uncontrolled E11.65 Tobacco abuse Z72.0 Gastroenteritis K52.9 (1) CAD (coronary artery disease) Coronary Disease-Associated Artery/Lesion type: [place] artery [place] vs. transplanted heart: [place] heart Associated angina: unspecified whether angina present Qualified Code(s): I25.10 - Atherosclerotic heart disease of [place] coronary artery without angina pectoris
[2021-04-04] MEDS ORDERED: GLUCOSE 10 TABS/TUBE PO PRN (00:15)
[2021-04-04] MEDS ORDERED: DEXTROSE 50% 50 ML SYRINGE IV PRN (00:15)
[2021-04-04] MEDS ORDERED: CARBOHYDRATES FOR HYPOGLYCEMIA PO PRN (00:15)
[2021-04-04] MEDS ORDERED: GLUCOSE 40% GEL 15 GM TUBE PO PRN (00:15)
[2021-04-04] MEDS ORDERED: GLUCAGON FOR INJ 1 MG VIAL SQ PRN (00:15)
--- NOTE | 2021-04-04 00:22 | Emergency Department Note ---
History of Present Illness General Chief Complaint: Nausea Stated Complaint: ABDOM PAIN, NAUSEA, WORSE AFTER EATING Time Seen by Provider: 04/03/21 20:21 History of Present Illness Provider Complaint: abdominal pain Onset (ago): 2 week(s) Pain Consistency: constant Location: epigastric Radiation: none Severity: mild Maximum Pain Intensity: 3 Current Pain Intensity: 3 Quality: + stabbing, + aching, + sharp and + dull Relieved By: + nothing Exacerbated By: + eating Context: no foreign travel, no possible food poisoning, no sick contacts, no recent antibiotic use, no recent surgery/procedure or no recent injury Associated Symptoms: + nausea and + vomiting; no diarrhea, no fever, no chills, no constipation, no dysuria, no hematemesis, no hematochezia, no melena, no hematuria, no anorexia, no syncope, no headache, no neck pain, no back pain, no chest pain, no weakness, no breathing difficulty and no numbness Related Data Last Menstrual Period: n/a Home Medications Medication Instructions Recorded Confirmed Type aspirin 81 mg tablet,delayed 81 mg PO QAM 10/16/20 04/03/21 History release dapagliflozin 10 mg tablet 10 mg PO QAM 10/22/20 04/03/21 History ([facility]) buspirone 10 mg tablet 10 mg PO TID #90 tab 10/24/20 04/03/21 Rx lisinopril 40 mg tablet 40 mg PO QAM 30 Days #30 tab 10/25/20 04/03/21 Rx metoprolol tartrate 25 mg tablet 25 mg PO BID 30 Days #180 tab 10/25/20 04/03/21 Rx nystatin-triamcinolone 100,000 1 applic TOPICAL ONCE #15 g 11/10/20 04/03/21 Rx unit/gram-0.1 % topical ointment ticagrelor 90 mg tablet (Brilinta) 90 mg PO BID 90 Days #180 tab 11/21/20 04/03/21 Rx insulin glargine 100 unit/mL (3 50 unit SUBCUT HS milliliter 12/14/20 04/03/21 History mL) subcutaneous pen (Lantus Solostar U-100 Insulin) insulin lispro 100 unit/mL 20 unit SUBCUT TID #15 ml 03/14/21 04/03/21 Rx subcutaneous pen (Humalog KwikPen (U-100) Insulin) nystatin 100,000 unit/gram topical 1 applic TOPICAL BID #60 g 03/14/21 04/03/21 Rx powder atorvastatin 80 mg tablet 80 mg PO QAM 03/15/21 04/03/21 History fluvoxamine 50 mg tablet 50 mg PO HS 03/15/21 04/03/21 History levothyroxine 88 mcg tablet 88 mcg PO QAM 03/15/21 04/03/21 History clonazepam 0.5 mg tablet (Klonopin) 0.5 mg PO QAM #30 tab 03/27/21 04/03/21 Rx Allergies Allergy/AdvReac Type Severity Reaction Status Date / Time albiglutide [From Tanzeum] AdvReac Unknown Unknown Verified 04/03/21 22:11 dulaglutide [From Trulicity] AdvReac Unknown Unknown Verified 04/03/21 22:11 Past Med/Surg History Medical History Anxiety CAD (coronary artery disease) No remaining occlusive disease after 2 LAD drug eluting stents 10/22/20. Follows with Dr. Harris Chronic headaches Depression Diabetes type 2, uncontrolled IDDM Dyslipidemia Hypertension Hypothyroidism NSTEMI (non-ST elevated myocardial infarction) 10/22/2020 s/p 2 CHANTAL Obesity Osteoarthritis Renal insufficiency Tobacco abuse Surgical History History of cardiac catheterization 10/22/2020 Dominant: Right Left Main (% Stenosis): Normal LAD (% Stenosis): Proximal (99) and Mid (75) Circumflex (% Stenosis): Normal (luminal irregularities) RCA (% Stenosis): Normal (Luminal irregularities) 2 CHANTAL to LAD History of cholecystectomy History of dental surgery History of tonsillectomy S/P coronary artery stent placement 2 CHANTAL to LAD 10/22/2020 Family History Unknown Diabetes Thyroid disorder Father Diabetes Other No family history of adverse response to anesthesia Denies family history of Ovarian cancer Prostate cancer Breast cancer Colorectal cancer Uterine cancer Social History Smoking Status: Current every day smoker Tobacco Type: Cigarettes packs per day: 0.5; Cigarettes Per Day: 10; Second Hand Exposure: Yes (dad was a smoker); Hx Alcohol Use: No Hx Substance Use: No Preferred Language: Estonian Communication Ability: Effective Window/Distribution Clerk Required: No Beliefs That Will Affect Care: None marital status: Single Current Living Situation: Alone Feels Safe at Home: Yes Safety Concerns Comment: Gets nervous sometimes because she lives alone, gets shaky from anxiety caffeine: Yes Dental Care, Regularly: No Physical Activity Frequency: Does not Exercise Seatbelt Use: always Sunscreen Use: No Assistive Devices: Glasses Review of Systems A total of 10 systems reviewed and were otherwise negative Physical Exam Vital Signs: Vital Signs - 24 hr 04/03/21 18:44 04/03/21 20:39 04/03/21 23:00 Temperature 36.6 C Temperature Source Oral Pulse Rate 82 Pulse Rate [Left R adial] 78 64 Pulse Rhythm [Left Radial] Regular Regular Pulse Strength [Le ft Radial] Normal Normal Respiratory Rate 20 14 14 Respiratory Effort / Characteristics Non-Labored Sponta neous Non-Labored Non-Labored Respiratory Depth Normal Normal Normal Respiratory Patter n Regular Blood Pressure 166/96 H Blood Pressure [Le ft Arm] 147/88 H 94/54 L Blood Pressure Reshma n 119 Blood Pressure Reshma n [Left Arm] 107 67 Blood Pressure Pos ition [Left Arm] Lying Lying Pulse Oximetry 97 95 98 Oxygen Delivery Me thod Room Air Room Air Room Air Sepsis Recent Feve r Within 48 Hours No Sepsis New/Unexpla ined Change in Men felicita Status No Sepsis Action Take n by Nursing No Action Required Physical Exam: Physical Exam GENERAL: She is oriented to person, place, and time. She appears well-developed and well-nourished. She does not appear distressed. HENT: Exam performed. -Head: Normocephalic and atraumatic. -Right Ear: External ear normal. No mastoid tenderness. -Left Ear: External ear normal. No mastoid tenderness. -Mouth/Throat: The oropharynx is clear and moist. No trismus in the jaw. No dental abscesses or uvula swelling. No oropharyngeal exudate or tonsillar abscesses. EYES: Conjunctivae and EOM are normal. Pupils are equal, round, and reactive to light. Right eye exhibits no discharge. Left eye exhibits no discharge. No scleral icterus. NECK: Normal range of motion. Neck supple. No JVD present. No spinous process tenderness present. No carotid bruit present. No rigidity. No tracheal deviation and normal range of motion present. No Brudzinski's sign and no Kernig's sign noted. CV: Normal rate, regular rhythm, normal heart sounds and intact distal pulses. There is no peripheral edema. Palpable radial pulses bue. PULM/CHEST: Effort normal and breath sounds normal. No respiratory distress. No stridor. She has no wheezes. She has no rales. -Chest Wall: She exhibits no tenderness. ABD: The abdomen is soft. Bowel sounds are normal. She has no distension. No mass is present. There is tenderness to palpation of the epigastric area There is no rebound, no guarding, no Patton's sign and no tenderness at McBurney's point. Rovsig negative MUSC/SKEL: Normal range of motion. There is no peripheral edema, tenderness or deformity. LYMPH: No cervical adenopathy. NEURO: She is alert and oriented to person, place, and time. She has normal strength. No cranial nerve deficit or sensory deficit. Coordination and gait normal. GCS eye subscore is 4. GCS verbal subscore is 5. GCS motor subscore is 6. Cerebellar tests wnl. SKIN: Skin is warm and dry. She is not diaphoretic. PSYCH: She has a normal mood and affect. Behavior is normal. Judgment and thought content normal. Course Course 2020: The patient was evaluated in room B11. A complete history and physical exam was performed Cardiac monitoring: An order was placed for continuous cardiac monitoring. The monitor shows a rate of 80 with sinus rhythm 2200: Vital signs stable. Imaging shows no SBO. Labs show low magnesium and low potassium. White blood cell count 15.6. Electrolytes were replaced and patient [facility] be [facility] Dr. Hoang notified. Administered Medications Potassium Chloride/Sodium Chloride (Normal Saline W/20 Meq Kcl) 20 meq in 1,000 mls @ 100 mls/hr IV .Q10H [facility]; Protocol Stop: 05/03/21 22:14 Last Admin: 04/03/21 22:16 Dose: 100 mls/hr Documented by: [id number] Discontinued Medications Magnesium Sulfate/Dextrose (Magnesium Sulfate / D5w) 1 gm in 100 mls @ 200 mls/hr IV Q30M TONI Stop: 04/03/21 22:58 Last Admin: 04/03/21 23:33 Dose: 200 mls/hr Documented by: [id number] Infusion: 04/03/21 23:00 Dose: 0 mls/hr Documented by: [id number] Admin: 04/03/21 22:16 Dose: 200 mls/hr Documented by: [id number] Ioversol (Optiray 320 100ml) 94 ml IV ONCE ONE Stop: 04/03/21 21:13 Last Admin: 04/03/21 21:14 Dose: 94 ml Documented by: [id number] Ketorolac Tromethamine (Ketorolac Tromethamine 15 Mg/Ml Vial) 15 mg IV NOW STA Stop: 04/03/21 20:30 Last Admin: 04/03/21 20:35 Dose: 15 mg Documented by: [id number] Ketorolac Tromethamine (Ketorolac Tromethamine 15 Mg/Ml Vial) 15 mg IV NOW STA Stop: 04/03/21 22:13 Last Admin: 04/03/21 22:29 Dose: 15 mg Documented by: [id number] Ondansetron HCl (Ondansetron Inj 2 Mg/Ml 2 Ml Vial) 4 mg IV NOW STA Stop: 04/03/21 20:30 Last Admin: 04/03/21 20:35 Dose: 4 mg Documented by: [id number] Potassium Chloride (Potassium Chloride 10 Meq Tabcr) 40 meq PO NOW STA Stop: 04/03/21 22:00 Last Admin: 04/03/21 22:16 Dose: 40 meq Documented by: [id number] Medical Decision Making Laboratory Data Result diagrams: 04/03/21 20:10 04/03/21 20:10 Lab Results 04/03/21 04/03/21 04/03/21 Range/Units 20:10 20:10 22:20 WBC 15.67 H (4.8-10.8) K/uL RBC 5.18 (4.2-5.4) M/uL Hgb 14.4 (12.0-16.0) g/dL Hct 42.7 (37-47) % MCV 82.4 (80-100) fL MCH 27.8 (25-34) pg MCHC 33.7 (32-36) g/dL RDW Std Deviation 41.7 (36.4-46.3) fL RDW Coeff of Umair 14.0 (11.5-14.5) % Plt Count 309 (130-400) K/uL MPV 10.5 H (7.4-10.4) fL Immature Gran % (Auto) 0.4 % Neut % (Auto) 74.9 % Lymph % (Auto) 18.6 % Casey % (Auto) 4.8 % Eos % (Auto) 1.2 % Baso % (Auto) 0.1 % Neut # (Auto) 11.73 H (1.4-6.5) K/uL Lymph # (Auto) 2.92 (1.2-3.4) K/uL Casey # (Auto) 0.75 H (0.11-0.59) K/uL Eos # (Auto) 0.19 (0-0.5) K/uL Baso # (Auto) 0.02 (0-0.2) K/uL Immature Gran # (Auto) 0.06 H (0.00-0.02) K/uL Sodium 137 (136-145) mmol/L Potassium 2.7 L (3.5-5.1) mmol/L Chloride 93 L (98-107) mmol/L Carbon Dioxide 30 (21-32) mmol/L Anion Gap 14 H (3-11) BUN 6 (6-23) mg/dl Creatinine 0.84 (0.6-1.2) mg/dl Est Cr Clr Drug Dosing 72.3 ml/min Est GFR ( Amer) 86.9 ml/min Est GFR (Non-Af Amer) 75.0 ml/min BUN/Creatinine Ratio 7.1 L (10-20) Glucose 294 H (70-99(Fasting)) mg/dl Calcium 8.3 L (8.5-10.1) mg/dl Magnesium 1.4 L (1.7-2.4) mg/dl Total Bilirubin 0.4 (0.2-1.0) mg/dl AST 17 (13-39) U/L ALT 18 (7-52) U/L Alkaline Phosphatase 170 H (34-104) U/L Total Protein 7.6 (6.0-8.3) gm/dl Albumin 3.6 (3.4-5.0) gm/dl Globulin 4.0 (2.5-4.0) gm/dl Albumin/Globulin Ratio 0.9 (0.9-2) Lipase 9 L (11-82) U/L SARS-CoV-2, RNA, NAAT NEGATIVE (NEGATIVE) Imaging Data Radiologist's Impression: Chest X-Ray 04/03/21 18:48 XR chest 2V PA/lateral CLINICAL HISTORY: Upper abdominal pain. Evaluate lung bases. COMPARISON STUDY: 11/18/2020 TECHNIQUE: 2 views of the chest FINDINGS: Frontal and lateral radiographs of the chest demonstrate the cardiomediastinal silhouette to be within normal limits. There is a decreased inspiratory effort with elevation of the hemidiaphragms and crowding of the bronchovascular markings at the lung bases and centrally. The lungs are clear of alveolar opacit ies. There is no evidence for effusion bilaterally. There is no evidence for vascular congestion. There is no acute osseous pathology. IMPRESSION: 1. Compared to the previous examination, there is a decreased inspiratory effort with otherwise no acute chest disease. ACT 112: Negative or not required by law. Electronically signed by: Renaldo Bone M.D. 04/03/2021 7:58 PM Abdomen/Pelvis CT 04/03/21 20:29 CT abd pelvis IV con only CLINICAL HISTORY: Abdominal pain with nausea and vomiting. Evaluate for obstruction. COMPARISON STUDY: 10/16/2020 CT DOSE: 1587.84 mGy.cm TECHNIQUE: Standard CT of the Abdomen and Pelvis was performed with IV contrast. A dose lowering technique was utilized adhering to the principles of ALARA. Contrast Volume: Optiray 320, 94 ml. The patient did not receive oral contrast. FINDINGS: Lung base: The lung bases are clear. Abdominal cavity: There is no evidence for abdominal mass, adenopathy or ascites. Liver: There is homogeneous attenuation of the liver parenchyma. There is no evidence for enhancing mass lesion. Spleen: There is homogeneous attenuation of the splenic parenchyma. There is no enhancing mass lesion. Pancreas: There is homogeneous attenuation of the pancreatic parenchyma. There i s no evidence for mass lesion or peripancreatic fluid collection. Gall Bladder: Surgical clips are present. Adrenal glands: The adrenal glands are normal in size and attenuation. There is no evidence for enhancing mass lesion. Kidneys: There is homogeneous attenuation of the renal parenchyma bilaterally. There is no evidence for renal calculus or hydronephrosis. There is no evidence for enhancing mass. Bowel: There are fluid-filled loops of small bowel present throughout the abdomen and pelvis without evidence for dilatation or obstruction.. The findings are characteristic of an ileus versus gastroenteritis. There is sigmoid diverticulosis without evidence for diverticulitis. There are no inflammatory changes present. There is no evidence for free air. There is a normal appendix i n the right lower quadrant. Bladder: The bladder is within normal limits with no evidence for focal mass, calculus or diverticulum. : There is no evidence for pelvic mass or adenopathy. There is no evidence for pelvic ascites. Calcified uterine fibroids are present. Vasculature: There is no evidence for aneurysmal dilatation of the abdominal aorta. Atherosclerotic calcification is present. Osseous structures: There is no acute osseous pathology. Degenerative changes are present. IMPRESSION: 1. Fluid-filled loops of small bowel throughout the abdomen and pelvis without evidence for disproportionate dilatation or obstruction. The findings are characteristic of an ileus versus gastroenteritis. 2. Sigmoid diverticulosis without evidence for diverticulitis. 3. Additional nonacute findings as delineated above. ACT 112: Negative or not required by law. Electronically signed by: Renaldo Bone M.D. 04/03/2021 9:29 PM MDM Narrative Vital signs stable. Imaging shows no SBO. Labs show low magnesium and low potassium. White blood cell count 15.6. Electrolytes were replaced and patient will be [facility] Dr. Hoang notified. Impression & Plan Acute hypokalemia, Hypomagnesemia Discharge Plan Visit Data Chief Complaint: Nausea Stated Complaint: ABDOM PAIN, NAUSEA, WORSE AFTER EATING Discharge Problem: Acute hypokalemia, Hypomagnesemia Patient Disposition: Admitted As Inpatient Discharge Instructions Interventions: ED Discharge Assessment Last Done: 04/03/21 23:53
[2021-04-04] MEDS ORDERED: PNEUMOCOCCAL POLYSACCHARIDES 25 MCG/0.5 ML VIAL/SYR IM ONE (00:56)
[2021-04-04] MEDS: METOPROLOL TARTRATE 25 MG TAB PO SCH ×3 (01:11→20:40)
[2021-04-04] MEDS: TICAGRELOR 90 MG TAB PO SCH ×3 (01:11→20:40)
[2021-04-04] MEDS: INSULIN ASPART PER UNIT SC SCH ×3 (02:36→21:27)
[2021-04-04 02:55] LABS: Appearance Urine Clear (Clear); Bilirubin Urine Negative (Negative); Blood Urine Negative (Negative); Color Urine Yellow; Glucose Urine UA 3+ (Negative); Ketones Urine Negative (Negative); Leukocyte Esterase Urine Negative (Negative); Nitrite Urine Negative (Negative); Protein Urine Negative (Negative); Specific Gravity Urine > 1.045 (1.000-1.030); Urobilinogen Urine Negative (Negative); pH Urine 5.5 (4.5-7.5)
[2021-04-04] MEDS: LEVOTHYROXINE SODIUM 88 MCG TABLET PO SCH (05:42)
[2021-04-04] MEDS: ACETAMINOPHEN 325 MG TAB PO PRN ×3 (05:51→19:38)
[2021-04-04] MEDS ORDERED: HEPARIN SOD 5,000 UNIT/0.5 ML VIAL SQ SCH (06:00)
[2021-04-04 06:19] LABS: Basophils # (auto) 0.01 K/uL (0-0.2); Basophils % (auto) 0.1 %; Eosinophils # (auto) 0.32 K/uL (0-0.5); Eosinophils % (auto) 3.1 %; Hematocrit (blood only) 38.2 % (37-47); Hemoglobin 12.5 g/dL (12.0-16.0); Immature Granulocytes # (auto) 0.02 K/uL (0.00-0.02); Immature Granulocytes % (auto) 0.2 %; Lymphocytes % (auto) 25.2 %; Mean Corpuscular Hemoglobin 27.3 pg (25-34); Mean Corpuscular Hgb Conc 32.7 g/dL (32-36); Mean Corpuscular Volume 83.4 fL (80-100); Mean Platelet Volume 10.3 fL (7.4-10.4); Monocytes # (auto) 0.62 K/uL (0.11-0.59); Neutrophils # (auto) 6.76 K/uL (1.4-6.5); Neutrophils % (auto) 65.4 %; Platelet Count 261 K/uL (130-400); RDW Coefficient of Variation 14.2 % (11.5-14.5); Red Blood Count 4.58 M/uL (4.2-5.4); White Blood Count 10.33 K/uL (4.8-10.8)
[2021-04-04 06:46] LABS: BUN Creatinine Ratio 7.3 (10-20); Calcium 7.6 mg/dl (8.5-10.1); Est GFR (African American) 89.5 ml/min; Est GFR (Non-African American) 77.2 ml/min; Phosphorus 2.7 mg/dl (2.5-4.9); Potassium 2.4 mmol/L (3.5-5.1)
[2021-04-04 06:51] LABS: Estimated Average Glucose 263 mg/dl; Hemoglobin A1C 10.8 % (4.5-5.6)
[2021-04-04] MEDS ORDERED: PHARMACY GLYCEMIC MGMT CONSULT PRN (07:38)
[2021-04-04] MEDS: POTASSIUM CHLORIDE / WTR 10 MEQ/100 ML PLCT IV SCH ×4 (07:40→12:26)
[2021-04-04] MEDS: clonazePAM 0.5 MG TAB PO SCH (08:12)
[2021-04-04] MEDS: busPIRone 5 MG TAB PO SCH ×3 (08:13→20:40)
[2021-04-04] MEDS: ATORVASTATIN 40 MG TAB PO SCH (08:13)
[2021-04-04] MEDS: ASPIRIN 81 MG ECTAB PO SCH (08:13)
[2021-04-04 12:15] LABS: Calcium 7.5 mg/dl (8.5-10.1); Creatinine Clr Calc Pharmacy 77.8 ml/min; Est GFR (African American) 95.1 ml/min; Est GFR (Non-African American) 82.1 ml/min; Potassium 2.6 mmol/L (3.5-5.1)
[2021-04-04] MEDS ORDERED: POTASSIUM CHLORIDE CRTAB 20 MEQ TABCR PO STA ×2 (12:41→19:23)
--- NOTE | 2021-04-04 15:01 | Pharmacy Report ---
Pharmacy Glycemic Short Note 2 - Date of Service April 04, 2021 - Glycemic Short BSG Results (Last 24 hours): 04/03/21 04/04/21 04/04/21 20:10 00:17 06:01 Glucose 294 H 193 H POC Glucose 267 H 04/04/21 04/04/21 04/04/21 08:05 11:35 12:18 Glucose 273 H POC Glucose 263 H 253 H OUTPATIENT ANTIDIABETIC REGIMEN: * Dapagliflozin 10 mg PO daily * Lantus 50 units SQ HS * Humalog 20 units TID with meals ASSESSMENT: * 60 y/o F admitted with N/V, gastroenteritis, hypokalemia and hypomagnesemia. Patient with history of Type 2 diabetes managed on oral Dapagliflozin, basal and bolus insulin regimen at home. * Hold oral Dapagliflozin while admitted and continue on basal + bolus insulin for glycemic control. * However, serum potassium level has been low, 2.4 this AM then 2.[address] Fair, hold SQ insulin until K level is greater than 3.0. * When Novolog okay to resume, then plan to start using CF and CR based off of total daily home insulin dose of 110 units. PLAN FOR INPATIENT GLYCEMIC CONTROL: * Hold outpatient oral diabetes medications * Basal insulin * Lantus 50 units SQ HS * Bolus insulin * NovoLog per scale ACHS or Q6hrs while NPO * Goal Range: Low 110 mg/dL - High 140 mg/dL * Correction Factor: 15 mg/dL/unit * Nutritional / Prandial insulin per carb ratio of 1 unit per 5 grams CHO consumed PLAN FOR DISCHARGE: * TBD
[2021-04-04] MEDS: NSS + 20MEQ KCL 20 MEQ/1,000 ML BAG IV SCH ×2 (17:33→21:31)
--- NOTE | 2021-04-04 19:13 | Hospitalist Progress Note ---
Date of Service April 04, 2021 Assessment & Plan (1) Gastroenteritis: Plan: Continue on full liquid diet Placed on IV fluids Zofran 4 mg IV every 6 hours as needed Famotidine 20 mg IV every 12 hours (2) Acute hypokalemia: Plan: Replacing with both oral and IV. Repeat laboratories in a.m. BMP Q6H, will avoid insulin until K > 3.0 (3) Hypomagnesemia: Plan: Resolved with 2 g mag sulfate IV given in ER. Repeat with a.m. labs (4) CAD (coronary artery disease): Plan: CAD/hypertension/NSTEMI/LAD stent- Continue aspirin, metoprolol tartrate and Brilinta Hold lisinopril (5) NSTEMI (non-ST elevated myocardial infarction): Plan: History of such. Not acute. See above (6) S/P coronary artery stent placement: Plan: See above (7) OCD (obsessive compulsive disorder): Plan: OCD/anxiety- Continue clonazepam, fluvoxamine (8) Hypothyroidism: Plan: TSH within normal limits in October Continue levothyroxine (9) Hypertension: Plan: See above (10) Dyslipidemia: Plan: Hold atorvastatin (11) Diabetes type 2, uncontrolled: Plan: Holding mealtime insulin pending potassium greater than 3 Consult pharmacy for glycemic control -discussed above plan with pharmacy, can likely take her usual Lantus 50 units at night tonight. (12) Tobacco abuse: Plan: Current tobacco user Cessation counseling NicoDerm patch if needed Plan: VT prophylaxis -given aspirin, Brilinta and low risk medical condition no additional chemical prophylaxis required at this time Diet -full liquids, type 2 diabetes Disposition -continued admission due to hypokalemia Admission and Anticipated Discharge Date Admission Date: April 03, 2021 Subjective No significant symptoms from her hyperkalemia. She reports ongoing nausea with mild epigastric pain. No diarrhea in fact he has not had a bowel movement since Friday when this started. Review of Systems Review of Systems: All systems reviewed & are unremarkable except as noted in Subjective Physical Exam Constitutional: WD/WN, vitals as above Eyes: + anicteric sclerae; normal pupil size ENMT: external ear and nose normal, oropharynx normal Respiratory: normal respiratory effort, lungs clear to auscultation Cardiovascular: RRR, no murmur, no edema Gastrointestinal (Abdomen): Inspection/Auscultation: normal bowel sounds Percussion/Palpation: + abdomen tender (mild epigastric) and abdomen soft; no guarding and abdomen not rigid Musculoskeletal: no cyanosis or clubbing, extremities motor strength 5/5 Skin: no rashes, warm and dry Neurologic: moves all extremities and awake; not confused Psychiatric: A+Ox3, euthymic affect Results & Data Results & Data ([facility]) Vital Signs (Past 12 Hours) Vital Signs Temp Pulse Resp BP Pulse Ox 04/04/21 15:00 36.5 C 56 L 18 113/66 95 04/04/21 07:55 36.7 C 63 18 143/82 H 93 PG Care Time/CCT Total # of Minutes Spent Total Time Spent with Patient: Total time spent is greater than 50% in coordination of care (as documented) at patient's floor/unit and/or counseling patient: Coding Level of Care Code 26636 Subseq Hosp Care Lvl 2 Diagnoses Gastroenteritis K52.9 Acute hypokalemia E87.6 Hypomagnesemia E83.42 CAD (coronary artery disease) I25.10 Coronary Disease-Associated Artery/Lesion type: [place] artery [place] vs. transplanted heart: yuhaaviatam heart Associated angina: unspecified whether angina present NSTEMI (non-ST elevated myocardial infarction) I21.4 S/P coronary artery stent placement Z95.5 OCD (obsessive compulsive disorder) F42.9 Hypothyroidism E03.9 Hypertension I10 Dyslipidemia E78.5 Diabetes type 2, uncontrolled E11.65 Tobacco abuse Z72.0 (1) CAD (coronary artery disease) Coronary Disease-Associated Artery/Lesion type: [place] artery [place] vs. transplanted heart: y[place]am heart Associated angina: unspecified whether angina present Qualified Code(s): I25.10 - Atherosclerotic heart disease of [place] coronary artery without angina pectoris
[2021-04-04 19:14] LABS: BUN Creatinine Ratio 8.5 (10-20); Calcium 7.6 mg/dl (8.5-10.1); Est GFR (African American) 89.5 ml/min; Est GFR (Non-African American) 77.2 ml/min
[2021-04-04] MEDS: fluvoxaMINE MALEATE 50 MG TAB PO SCH (20:40)
[2021-04-04] MEDS ORDERED: INSULIN GLARGINE SOLOSTAR 100 UNITS/ML 3 ML PEN SQ SCH (21:00)
[2021-04-04] MEDS: INSULIN GLARGINE SOLOSTAR 100 UNITS/ML 3 ML PEN SQ SCH (21:27)
[2021-04-04] MEDS: NYSTATIN/TRIAMCIN CR 15 GM TUBE EXT SCH (22:11)
[2021-04-05 00:44] LABS: BUN Creatinine Ratio 10.1 (10-20); Calcium 7.7 mg/dl (8.5-10.1); Creatinine Clr Calc Pharmacy 76.8 ml/min; Est GFR (African American) 93.6 ml/min; Est GFR (Non-African American) 80.8 ml/min; Potassium 3.3 mmol/L (3.5-5.1)
[2021-04-05] MEDS ORDERED: POTASSIUM CHLORIDE CRTAB 20 MEQ TABCR PO STA ×2 (00:48→07:18)
[2021-04-05] MEDS ORDERED: INSULIN ASPART PER UNIT SC SCH (02:00)
[2021-04-05] MEDS: NSS + 20MEQ KCL 20 MEQ/1,000 ML BAG IV SCH (02:14)
[2021-04-05] MEDS: ACETAMINOPHEN 325 MG TAB PO PRN ×2 (05:01→16:29)
[2021-04-05] MEDS: ONDANSETRON INJ 2 MG/ML 2 ML VIAL IV PRN ×2 (05:01→19:48)
[2021-04-05] MEDS: LEVOTHYROXINE SODIUM 88 MCG TABLET PO SCH (05:45)
[2021-04-05 06:40] LABS: Basophils # (auto) 0.01 K/uL (0-0.2); Basophils % (auto) 0.1 %; Eosinophils # (auto) 0.25 K/uL (0-0.5); Eosinophils % (auto) 3.5 %; Hematocrit (blood only) 37.5 % (37-47); Hemoglobin 12.3 g/dL (12.0-16.0); Immature Granulocytes # (auto) 0.01 K/uL (0.00-0.02); Immature Granulocytes % (auto) 0.1 %; Lymphocytes # (auto) 1.86 K/uL (1.2-3.4); Lymphocytes % (auto) 25.7 %; Mean Corpuscular Hemoglobin 27.8 pg (25-34); Mean Corpuscular Hgb Conc 32.8 g/dL (32-36); Mean Corpuscular Volume 84.7 fL (80-100); Mean Platelet Volume 10.8 fL (7.4-10.4); Monocytes # (auto) 0.35 K/uL (0.11-0.59); Monocytes % (auto) 4.8 %; Neutrophils # (auto) 4.76 K/uL (1.4-6.5); Neutrophils % (auto) 65.8 %; Platelet Count 255 K/uL (130-400); RDW Coefficient of Variation 14.1 % (11.5-14.5); Red Blood Count 4.43 M/uL (4.2-5.4); White Blood Count 7.24 K/uL (4.8-10.8)
[2021-04-05 06:58] LABS: Calcium 7.6 mg/dl (8.5-10.1); Creatinine Clr Calc Pharmacy 83.1 ml/min; Est GFR (Non-African American) 88.9 ml/min; Magnesium 1.6 mg/dl (1.7-2.4); Potassium 3.7 mmol/L (3.5-5.1)
[2021-04-05 07:02] LABS: BUN Creatinine Ratio 11.3 (10-20); Calcium 7.6 mg/dl (8.5-10.1); Creatinine Clr Calc Pharmacy 85.5 ml/min; Est GFR (African American) 106.5 ml/min; Est GFR (Non-African American) 91.9 ml/min; Potassium 3.6 mmol/L (3.5-5.1)
[2021-04-05] MEDS: METOPROLOL TARTRATE 25 MG TAB PO SCH ×2 (08:15→21:44)
[2021-04-05] MEDS: ASPIRIN 81 MG ECTAB PO SCH (08:15)
[2021-04-05] MEDS: busPIRone 5 MG TAB PO SCH ×3 (08:17→21:38)
[2021-04-05] MEDS: ATORVASTATIN 40 MG TAB PO SCH (08:17)
[2021-04-05] MEDS: TICAGRELOR 90 MG TAB PO SCH ×2 (08:17→21:41)
[2021-04-05] MEDS: clonazePAM 0.5 MG TAB PO SCH (08:20)
[2021-04-05] MEDS: INSULIN ASPART PER UNIT SC SCH ×4 (08:22→21:36)
[2021-04-05] MEDS: NYSTATIN/TRIAMCIN CR 15 GM TUBE EXT SCH ×2 (09:29→21:42)
--- NOTE | 2021-04-05 10:20 | Hospitalist Progress Note ---
Date of Service April 05, 2021 Assessment & Plan (1) Gastroenteritis: Plan: Advance diet as tolerated. Discontinue IV fluids. Zofran 4 mg IV every 6 hours as needed Famotidine 20 mg IV every 12 hours Fecal occult blood negative. Stool PCR negative. (2) Acute hypokalemia: Plan: K improved with IV supplementation yesterday Currently 3.6 (3) Hypomagnesemia: Plan: Level back to 1.6 Start Mg Ox 400mg PO BID (4) CAD (coronary artery disease): Plan: CAD/hypertension/NSTEMI/LAD stent- Continue aspirin, metoprolol tartrate and Brilinta Can restart lisinopril today (5) NSTEMI (non-ST elevated myocardial infarction): Plan: History of such. Not acute. See above (6) S/P coronary artery stent placement: Plan: See above (7) OCD (obsessive compulsive disorder): Plan: OCD/anxiety- Continue clonazepam, fluvoxamine (8) Hypothyroidism: Plan: TSH within normal limits in October Continue levothyroxine (9) Hypertension: Plan: See above (10) Dyslipidemia: Plan: Hold atorvastatin (11) Diabetes type 2, uncontrolled: Plan: Appreciate pharmacy consult for glycemic control HbA1c 10.8 (improved from 15.8 in October) Appreciate public health educator. Endocrinology office notified in effort to restart freestyle ruddy, likely to continue to struggle due to fear of hypoglycemia, need to limit regular soda. (12) Tobacco abuse: Plan: Current tobacco user Cessation counseling NicoDerm patch if needed Plan: VT prophylaxis -given aspirin, Brilinta and low risk medical condition no additional chemical prophylaxis required at this time Diet -full liquids, type 2 diabetes, advance diet as tolerated Disposition -continued admission due to ongoing abdominal pain and nausea, likely discharge tomorrow Admission and Anticipated Discharge Date Admission Date: April 03, 2021 Subjective Reports ongoing nausea and abdominal pain. Abdominal pain is generalized and moves around. No radiation. Diarrhea this morning. FOB -ve. No melena or bright red blood in stool. Complaining of vaginal itching and is yet to receive her nystatin/triamcinolone cream prescribed yesterday. Review of Systems Review of Systems: All systems reviewed & are unremarkable except as noted in Subjective Physical Exam Constitutional: WD/WN, vitals as above Eyes: + anicteric sclerae; normal pupil size ENMT: external ear and nose normal, oropharynx normal Respiratory: normal respiratory effort, lungs clear to auscultation Cardiovascular: RRR, no murmur, no edema Gastrointestinal (Abdomen): Inspection/Auscultation: normal bowel sounds Percussion/Palpation: + abdomen tender (RUQ) and abdomen soft; no guarding and abdomen not rigid Musculoskeletal: no cyanosis or clubbing, extremities motor strength 5/5 Skin: no rashes, warm and dry Neurologic: moves all extremities and awake; not confused Psychiatric: A+Ox3, euthymic affect Results & Data Results & Data ([facility]) Vital Signs (Past 12 Hours) Vital Signs Temp Pulse Resp BP Pulse Ox 04/05/21 07:45 36.7 C 58 L 18 164/80 H 91 PG Care Time/CCT Total # of Minutes Spent Total Time Spent with Patient: Total time spent is greater than 50% in coordination of care (as documented) at patient's floor/unit and/or counseling patient: Coding Level of Care Code 69276 Subseq Hosp Care Lvl 2 Diagnoses Gastroenteritis K52.9 Acute hypokalemia E87.6 Hypomagnesemia E83.42 CAD (coronary artery disease) I25.10 Associated angina: unspecified whether angina present Coronary Disease-Associated Artery/Lesion type: [place] artery [place] vs. transplanted heart: [place] heart NSTEMI (non-ST elevated myocardial infarction) I21.4 S/P coronary artery stent placement Z95.5 OCD (obsessive compulsive disorder) F42.9 Hypothyroidism E03.9 Hypertension I10 Dyslipidemia E78.5 Diabetes type 2, uncontrolled E11.65 Tobacco abuse Z72.0 (1) CAD (coronary artery disease) Associated angina: unspecified whether angina present Coronary Disease- Associated Artery/Lesion type: [place] artery [place] vs. transplanted heart: [place] heart Qualified Code(s): I25.10 - Atherosclerotic heart disease of [place] coronary artery without angina pectoris
[2021-04-05] MEDS: MAGNESIUM OXIDE 400 MG TAB PO SCH ×2 (10:55→21:38)
[2021-04-05 11:06] LABS: Adenovirus F 40/41 PCR Not Detected (NotDetected); Astrovirus PCR Not Detected (NotDetected); Campylobacter PCR Not Detected (NotDetected); Clostridium diff Toxin A/B PCR Not Detected (NotDetected); Cryptosporidium PCR Not Detected (NotDetected); Cyclospora cayetanensis PCR Not Detected (NotDetected); Entamoeba histolytica PCR Not Detected (NotDetected); Enteroaggregative E.coli(EAEC) Not Detected (NotDetected); Enteropathogenic E.coli (EPEC) Not Detected (NotDetected); Enterotoxigenic E.coli (ETEC) Not Detected (NotDetected); Giardia lamblia PCR Not Detected (NotDetected); Norovirus GI/GII PCR Not Detected (NotDetected); Plesiomonas shigelloides PCR Not Detected (NotDetected); Rotavirus A PCR Not Detected (NotDetected); Salmonella PCR Not Detected (NotDetected); Sapovirus PCR Not Detected (NotDetected); Shiga-like Toxin E.coli (STEC) Not Detected (NotDetected); Shigella/Enteroinvasive E.coli Not Detected (NotDetected); Vibrio cholerae PCR Not Detected (NotDetected); Vibrio species PCR Not Detected (NotDetected); Yersinia enterocolitica PCR Not Detected (NotDetected)
[2021-04-05 11:14] LABS: Bilirubin,Total 0.4 mg/dl (0.2-1.0); Total Protein 6.1 gm/dl (6.0-8.3)
[2021-04-05 12:52] LABS: BUN Creatinine Ratio 10.3 (10-20); Calcium 7.9 mg/dl (8.5-10.1); Creatinine Clr Calc Pharmacy 89.3 ml/min; Est GFR (African American) 109.4 ml/min; Est GFR (Non-African American) 94.4 ml/min; Potassium 3.7 mmol/L (3.5-5.1)
[2021-04-05] MEDS: lisinopril 40 MG TAB PO SCH (13:25)
[2021-04-05] MEDS: INSULIN GLARGINE SOLOSTAR 100 UNITS/ML 3 ML PEN SQ SCH (21:35)
[2021-04-05] MEDS: fluvoxaMINE MALEATE 50 MG TAB PO SCH (21:40)
[2021-04-05] MEDS: NYSTATIN POWDER 15GM BTL EXT SCH (21:42)
[2021-04-06] MEDS: ACETAMINOPHEN 325 MG TAB PO PRN ×3 (03:08→21:28)
[2021-04-06 05:59] LABS: Basophils # (auto) 0.02 K/uL (0-0.2); Basophils % (auto) 0.2 %; Eosinophils # (auto) 0.32 K/uL (0-0.5); Eosinophils % (auto) 2.6 %; Hematocrit (blood only) 38.8 % (37-47); Hemoglobin 12.5 g/dL (12.0-16.0); Immature Granulocytes # (auto) 0.03 K/uL (0.00-0.02); Immature Granulocytes % (auto) 0.2 %; Lymphocytes # (auto) 1.82 K/uL (1.2-3.4); Mean Corpuscular Hemoglobin 27.2 pg (25-34); Mean Corpuscular Hgb Conc 32.2 g/dL (32-36); Mean Corpuscular Volume 84.5 fL (80-100); Mean Platelet Volume 10.5 fL (7.4-10.4); Monocytes # (auto) 0.46 K/uL (0.11-0.59); Monocytes % (auto) 3.8 %; Neutrophils # (auto) 9.51 K/uL (1.4-6.5); Neutrophils % (auto) 78.2 %; Platelet Count 261 K/uL (130-400); RDW Coefficient of Variation 14.3 % (11.5-14.5); RDW Standard Deviation 44.2 fL (36.4-46.3); Red Blood Count 4.59 M/uL (4.2-5.4); White Blood Count 12.16 K/uL (4.8-10.8)
[2021-04-06] MEDS: LEVOTHYROXINE SODIUM 88 MCG TABLET PO SCH (06:01)
[2021-04-06 06:22] LABS: Albumin Globulin Ratio 0.9 (0.9-2); Albumin Level 3.2 gm/dl (3.4-5.0); BUN Creatinine Ratio 13.4 (10-20); Bilirubin,Total 0.4 mg/dl (0.2-1.0); Calcium 8.1 mg/dl (8.5-10.1); Est GFR (African American) 89.5 ml/min; Est GFR (Non-African American) 77.2 ml/min; Globulin 3.5 gm/dl (2.5-4.0); Magnesium 1.4 mg/dl (1.7-2.4); Phosphorus 2.7 mg/dl (2.5-4.9); Potassium 3.4 mmol/L (3.5-5.1); Total Protein 6.7 gm/dl (6.0-8.3)
[2021-04-06] MEDS: INSULIN ASPART PER UNIT SC SCH ×4 (08:19→21:35)
[2021-04-06] MEDS: TICAGRELOR 90 MG TAB PO SCH ×2 (08:22→21:25)
[2021-04-06] MEDS: MAGNESIUM OXIDE 400 MG TAB PO SCH ×2 (08:23→21:25)
[2021-04-06] MEDS: lisinopril 40 MG TAB PO SCH (08:23)
[2021-04-06] MEDS: ATORVASTATIN 40 MG TAB PO SCH (08:23)
[2021-04-06] MEDS: ASPIRIN 81 MG ECTAB PO SCH (08:23)
[2021-04-06] MEDS: busPIRone 5 MG TAB PO SCH ×3 (08:24→21:24)
[2021-04-06] MEDS: METOPROLOL TARTRATE 25 MG TAB PO SCH ×2 (08:24→21:24)
[2021-04-06] MEDS: NYSTATIN/TRIAMCIN CR 15 GM TUBE EXT SCH ×2 (08:33→21:26)
[2021-04-06] MEDS: clonazePAM 0.5 MG TAB PO SCH (08:33)
[2021-04-06] MEDS: NYSTATIN POWDER 15GM BTL EXT SCH ×2 (08:33→21:26)
[2021-04-06] MEDS ORDERED: POTASSIUM CHLORIDE CRTAB 20 MEQ TABCR PO STA (09:29)
[2021-04-06] MEDS: MAGNESIUM SULFATE / D5W 1 GM/100 ML BAG IV SCH ×2 (11:10→14:15)
--- NOTE | 2021-04-06 12:28 | Pharmacy Report ---
Pharmacy Glycemic Short Note 2 - Date of Service April 06, 2021 - Glycemic Short BSG Results (Last 24 hours): 04/05/21 04/05/21 04/05/21 12:19 17:13 20:45 Glucose 163 H POC Glucose 183 H 153 H 04/06/21 04/06/21 04/06/21 02:40 05:36 05:50 Glucose 196 H POC Glucose 209 H 207 H 04/06/21 04/06/21 07:39 12:11 Glucose POC Glucose 196 H 189 H OUTPATIENT ANTIDIABETIC REGIMEN: * Dapagliflozin 10 mg PO daily * Lantus 50 units SQ HS * Humalog 20 units TID with meals ASSESSMENT: 04/06/21 * Patient's BSGs yesterday were [phone] mg/dL. Fasting today is 207 mg/dL. * Patient received 77 units of insulin yesterday (50 units of basal and 27 units of bolus). * Fasting trending upwards plus previous data suggests patient requires more Lantus while inhouse. Will increase to Lantus 60 units * Continue Novolog. Baseline * 60 y/o F admitted with N/V, gastroenteritis, hypokalemia and hypomagnesemia. Patient with history of Type 2 diabetes managed on oral Dapagliflozin, basal and bolus insulin regimen at home. * Hold oral Dapagliflozin while admitted and continue on basal + bolus insulin for glycemic control. * However, serum potassium level has been low, 2.4 this AM then 2.[address] Fair, hold SQ insulin until K level is greater than 3.0. * When Novolog okay to resume, then plan to start using CF and CR based off of total daily home insulin dose of 110 units. PLAN FOR INPATIENT GLYCEMIC CONTROL: * Hold outpatient oral diabetes medications * Basal insulin * Lantus 60 units SQ HS * Bolus insulin * NovoLog per scale ACHS or Q6hrs while NPO * Goal Range: Low 110 mg/dL - High 140 mg/dL * Correction Factor: 15 mg/dL/unit * Nutritional / Prandial insulin per carb ratio of 1 unit per 5 grams CHO consumed PLAN FOR DISCHARGE: * Please see [facility] End Finder Note. * Recommend patient follow up with endocrinology regarding diabetes care and nutrition counseling.
--- NOTE | 2021-04-06 13:47 | Ultrasound Report ---
US liver HISTORY: 60 years-old Female RUQ pain s/p albertina ?biliary dilatation acute right upper quadrant abdom inal pain COMPARISON: CT abdomen pelvis 04/03/2021 TECHNIQUE: Multiple real-time sonographic images of the abdominal right upper quadrant were obtained assessing grayscale appearance and color flow. FINDINGS: Cholecystectomy. The visualized pancreas is unremarkable. The liver is within normal limits. No hepat ic mass or marginal nodularity to suggest cirrhosis. No biliary ductal dilation. The common bile duct measures 3 mm. The imaged right kidney is within normal limits without hydronephrosis. IMPRESSION: Unremarkable exam status post cholecystectomy. ACT 112: Negative or not required by law. The above report was generated using voice recognition software. It may contain grammatical, syntax o r spelling errors. Electronically signed by: Willard Cooper M.D. 04/06/2021 1:46 PM
--- NOTE | 2021-04-06 14:36 | Hospitalist Progress Note ---
Date of Service April 06, 2021 Assessment & Plan (1) Gastroenteritis: Plan: Advance diet as tolerated. Discontinue IV fluids. Zofran 4 mg IV every 6 hours as needed Famotidine 20 mg IV every 12 hours Fecal occult blood negative. Stool PCR negative. Pain remains in RUQ (pt is s/p cholecystectomy) - will get US liver to assess for biliary sludge/dilatation (2) Acute hypokalemia: Plan: Lowest K 2.4 on morning following admission Continues to require supplementation Likely to need supplementation on discharge (3) Hypomagnesemia: Plan: Level back to 1.4 Increase Mg Ox 800mg PO BID + Mg sulphate 2g IV (4) CAD (coronary artery disease): Plan: CAD/hypertension/NSTEMI/LAD stent- Continue aspirin, metoprolol tartrate and Brilinta Restarted on lisinopril (5) NSTEMI (non-ST elevated myocardial infarction): Plan: History of such. Not acute. See above (6) S/P coronary artery stent placement: Plan: See above (7) OCD (obsessive compulsive disorder): Plan: OCD/anxiety- Continue clonazepam, fluvoxamine (8) Hypothyroidism: Plan: TSH within normal limits in October Continue levothyroxine (9) Hypertension: Plan: See above (10) Dyslipidemia: Plan: Hold atorvastatin (11) Diabetes type 2, uncontrolled: Plan: Appreciate pharmacy consult for glycemic control HbA1c 10.8 (improved from 15.8 in October) Appreciate natural resources extension educator. Endocrinology office notified in effort to restart freestyle ruddy, likely to continue to struggle due to fear of hypoglycemia, need to limit regular soda. (12) Tobacco abuse: Plan: Current tobacco user Cessation counseling NicoDerm patch if needed Plan: VT prophylaxis -given aspirin, Brilinta and low risk medical condition no additional chemical prophylaxis required at this time Diet - full diet, type 2 diabetes Disposition -continued admission due to ongoing abdominal pain and nausea, likely discharge tomorrow Admission and Anticipated Discharge Date Admission Date: April 03, 2021 Subjective Ongoing abdominal pain and nausea. Anxious about potentially going home. Review of Systems Review of Systems: All systems reviewed & are unremarkable except as noted in Subjective Physical Exam Constitutional: WD/WN, vitals as above Eyes: + anicteric sclerae; normal pupil size ENMT: external ear and nose normal, oropharynx normal Respiratory: normal respiratory effort, lungs clear to auscultation Cardiovascular: RRR, no murmur, no edema Gastrointestinal (Abdomen): Inspection/Auscultation: normal bowel sounds Percussion/Palpation: + abdomen tender (RUQ) and abdomen soft; no guarding and abdomen not rigid Musculoskeletal: no cyanosis or clubbing, extremities motor strength 5/5 Skin: no rashes, warm and dry Neurologic: moves all extremities and awake; not confused Psychiatric: A+Ox3, euthymic affect Results & Data Results & Data ([facility]) Vital Signs (Past 12 Hours) Vital Signs Temp Pulse Resp BP Pulse Ox 04/06/21 07:20 36.7 C 66 14 173/92 H 96 PG Care Time/CCT Total # of Minutes Spent Total Time Spent with Patient: Total time spent is greater than 50% in coordination of care (as documented) at patient's floor/unit and/or counseling patient: Coding Level of Care Code 06517 Subseq Hosp Care Lvl 2 Diagnoses Gastroenteritis K52.9 Acute hypokalemia E87.6 Hypomagnesemia E83.42 CAD (coronary artery disease) I25.10 Associated angina: unspecified whether angina present Coronary Disease-Associated Artery/Lesion type: [place] artery [place] vs. transplanted heart: [place] heart NSTEMI (non-ST elevated myocardial infarction) I21.4 S/P coronary artery stent placement Z95.5 OCD (obsessive compulsive disorder) F42.9 Hypothyroidism E03.9 Hypertension I10 Dyslipidemia E78.5 Diabetes type 2, uncontrolled E11.65 Tobacco abuse Z72.0 (1) CAD (coronary artery disease) Associated angina: unspecified whether angina present Coronary Disease- Associated Artery/Lesion type: [place] artery [place] vs. transplanted heart: [place] heart Qualified Code(s): I25.10 - Atherosclerotic heart disease of [place] coronary artery without angina pectoris
[2021-04-06] MEDS: fluvoxaMINE MALEATE 50 MG TAB PO SCH (21:23)
[2021-04-06] MEDS: INSULIN GLARGINE SOLOSTAR 100 UNITS/ML 3 ML PEN SQ SCH (21:29)
[2021-04-07] MEDS: LEVOTHYROXINE SODIUM 88 MCG TABLET PO SCH (06:06)
[2021-04-07] MEDS: ACETAMINOPHEN 325 MG TAB PO PRN ×2 (07:00→20:00)
[2021-04-07] MEDS: ONDANSETRON 4 MG OD TAB PO PRN ×2 (08:17→20:01)
[2021-04-07] MEDS: METOPROLOL TARTRATE 25 MG TAB PO SCH ×2 (08:18→20:06)
[2021-04-07] MEDS: clonazePAM 0.5 MG TAB PO SCH (08:18)
[2021-04-07] MEDS: busPIRone 5 MG TAB PO SCH ×3 (08:18→20:04)
[2021-04-07] MEDS: MAGNESIUM OXIDE 400 MG TAB PO SCH ×2 (08:18→20:04)
[2021-04-07] MEDS: TICAGRELOR 90 MG TAB PO SCH ×2 (08:18→20:03)
[2021-04-07] MEDS: ASPIRIN 81 MG ECTAB PO SCH (08:19)
[2021-04-07] MEDS: NYSTATIN/TRIAMCIN CR 15 GM TUBE EXT SCH ×2 (08:19→20:05)
[2021-04-07] MEDS: ATORVASTATIN 40 MG TAB PO SCH (08:19)
[2021-04-07] MEDS: NYSTATIN POWDER 15GM BTL EXT SCH ×2 (08:19→20:05)
[2021-04-07] MEDS: lisinopril 40 MG TAB PO SCH (08:19)
[2021-04-07] MEDS ORDERED: INSULIN GLARGINE SOLOSTAR 100 UNITS/ML 3 ML PEN SQ SCH (09:00)
[2021-04-07] MEDS: INSULIN ASPART PER UNIT SC SCH ×5 (09:21→21:29)
[2021-04-07 10:05] LABS: Basophils # (auto) 0.01 K/uL (0-0.2); Basophils % (auto) 0.1 %; Eosinophils # (auto) 0.27 K/uL (0-0.5); Eosinophils % (auto) 3.4 %; Hematocrit (blood only) 37.8 % (37-47); Hemoglobin 12.2 g/dL (12.0-16.0); Immature Granulocytes # (auto) 0.01 K/uL (0.00-0.02); Immature Granulocytes % (auto) 0.1 %; Lymphocytes % (auto) 21.7 %; Mean Corpuscular Hemoglobin 27.2 pg (25-34); Mean Corpuscular Hgb Conc 32.3 g/dL (32-36); Mean Corpuscular Volume 84.4 fL (80-100); Mean Platelet Volume 10.6 fL (7.4-10.4); Monocytes # (auto) 0.33 K/uL (0.11-0.59); Monocytes % (auto) 4.2 %; Neutrophils # (auto) 5.52 K/uL (1.4-6.5); Neutrophils % (auto) 70.5 %; Platelet Count 244 K/uL (130-400); RDW Coefficient of Variation 14.2 % (11.5-14.5); RDW Standard Deviation 43.3 fL (36.4-46.3); Red Blood Count 4.48 M/uL (4.2-5.4); White Blood Count 7.84 K/uL (4.8-10.8)
[2021-04-07 10:32] LABS: BUN Creatinine Ratio 12.3 (10-20); Bilirubin Direct 0.1 mg/dl (0-0.2); Bilirubin,Total 0.4 mg/dl (0.2-1.0); C Reactive Protein 1.42 mg/dl (0-0.5); Creatinine Clr Calc Pharmacy 74.9 ml/min; Est GFR (African American) 90.9 ml/min; Est GFR (Non-African American) 78.4 ml/min; Magnesium 1.5 mg/dl (1.7-2.4); Potassium 3.4 mmol/L (3.5-5.1); Total Protein 6.1 gm/dl (6.0-8.3)
--- NOTE | 2021-04-07 10:51 | Hospitalist Progress Note ---
Date of Service April 07, 2021 Assessment & Plan (1) Abdominal pain: Plan: epigastric region/right sided of abdomen. in the setting of #2 -- severe gastritis? other? RUQ u/s negative for biliary tract pathology. lipase/LFTs wnl today. add carafate 1gm QID. PPI. H2 elizabeth IV bid. if no improvement with symptoms consider MRCP to r/o CBD abnormalities but I doubt such even despite the right-sided abd pain. strongly consider GI consult - consideration of EGD?? downgrade diet to clears. add IV fluids back. (2) Gastroenteritis: Plan: Fecal occult blood negative. Stool PCR negative. RUQ u/s negative. CT abd/pelvis - ileus vs GE. [employer] resp panel including repeat COVID test negative. see #1 above. Uncertain why she is not improving. (3) Acute hypokalemia: Plan: Continues with low K due to vomiting, poor oral intake. add KCL to fluids - repeat BMP am. (4) Hypomagnesemia: Plan: 2 grams mag sulfate IV x 1 repeat mag level am (5) CAD (coronary artery disease): Plan: CAD/hypertension/NSTEMI/LAD stent- Continue aspirin, metoprolol tartrate and Brilinta Continue lisinopril (6) NSTEMI (non-ST elevated myocardial infarction): Plan: History of such. (7) S/P coronary artery stent placement: Plan: noted (8) OCD (obsessive compulsive disorder): Plan: OCD/anxiety- Continue clonazepam, fluvoxamine (9) Hypothyroidism: Plan: TSH within normal limits in October Continue levothyroxine (10) Hypertension: Plan: Cont home meds (11) Dyslipidemia: Plan: Cont atorvastatin LFTs wnl (12) Diabetes type 2, uncontrolled: Plan: Appreciate pharmacy consult for glycemic control and recs HbA1c 10.8 (improved from 15.8 in October) Appreciate diabetic education (13) Tobacco abuse: Plan: Current tobacco user Cessation counseling Plan: no discharge today Admission and Anticipated Discharge Date Admission Date: April 03, 2021 Subjective cont with abdominal pain - "all over" - but worse right side of abdomen ongoing nausea, dry heaves did eat yesterday and "felt better" but feels poorly today no further diarrhea denies fever, but feels hot/cold +fatigue +myalgias +mild cough +mild runny nose vaccinated against COVID -19 Review of Systems Review of Systems: cv - no chest pain pulm - no dyspnea GI - no blood in stool; recent diarrhea resolved - no dysuria Physical Exam Physical Exam: gen - looks ill but not toxic, obese mouth - MM dry heart - RRR, s1 s2 lungs - CTA b/l abd - mildly tender epigastric region and right side of abdomen but no Patton's sign ext - no edema, pulses 2+ b/l skin - no rash psych - a/o x 3 Results & Data Results & Data ([facility]) Vital Signs (Past 12 Hours) Vital Signs Temp Pulse Resp BP Pulse Ox 04/07/21 08:13 36.8 C 59 L 18 172/81 H 92 04/06/21 23:21 36.6 C 60 17 143/77 H 95 Laboratory Results Laboratory Results - last 24 hr 04/06/21 04/06/21 04/06/21 12:11 17:16 20:50 WBC RBC Hgb Hct MCV MCH MCHC RDW Std Deviation RDW Coeff of Umair Plt Count MPV Immature Gran % (Auto) Neut % (Auto) Lymph % (Auto) Hunt % (Auto) Eos % (Auto) Baso % (Auto) Neut # (Auto) Lymph # (Auto) Hunt # (Auto) Eos # (Auto) Baso # (Auto) Immature Gran # (Auto) Sodium Potassium Chloride Carbon Dioxide Anion Gap BUN Creatinine Est Cr Clr Drug Dosing Est GFR ( Amer) Est GFR (Non-Af Amer) BUN/Creatinine Ratio Glucose POC Glucose 189 H 192 H 205 H Calcium Magnesium Total Bilirubin Direct Bilirubin AST ALT Alkaline Phosphatase C-Reactive Protein Total Protein Albumin Lipase 04/07/21 04/07/21 04/07/21 02:09 08:12 09:54 WBC RBC Hgb Hct MCV MCH MCHC RDW Std Deviation RDW Coeff of Umair Plt Count MPV Immature Gran % (Auto) Neut % (Auto) Lymph % (Auto) Hunt % (Auto) Eos % (Auto) Baso % (Auto) Neut # (Auto) Lymph # (Auto) Hunt # (Auto) Eos # (Auto) Baso # (Auto) Immature Gran # (Auto) Sodium 134 L Potassium 3.4 L Chloride 98 Carbon Dioxide 29 Anion Gap 7 BUN 10 Creatinine 0.81 Est Cr Clr Drug Dosing 74.9 Est GFR ( Amer) 90.9 Est GFR (Non-Af Amer) 78.4 BUN/Creatinine Ratio 12.3 Glucose 263 H POC Glucose 187 H 196 H Calcium 8.0 L Magnesium 1.5 L Total Bilirubin 0.4 Direct Bilirubin 0.1 AST 16 ALT 21 Alkaline Phosphatase 128 H C-Reactive Protein 1.42 H Total Protein 6.1 Albumin 3.0 L Lipase 7 L 04/07/21 09:54 WBC 7.84 RBC 4.48 Hgb 12.2 Hct 37.8 MCV 84.4 MCH 27.2 MCHC 32.3 RDW Std Deviation 43.3 RDW Coeff of Umair 14.2 Plt Count 244 MPV 10.6 H Immature Gran % (Auto) 0.1 Neut % (Auto) 70.5 Lymph % (Auto) 21.7 Hunt % (Auto) 4.2 Eos % (Auto) 3.4 Baso % (Auto) 0.1 Neut # (Auto) 5.52 Lymph # (Auto) 1.70 Hunt # (Auto) 0.33 Eos # (Auto) 0.27 Baso # (Auto) 0.01 Immature Gran # (Auto) 0.01 Sodium Potassium Chloride Carbon Dioxide Anion Gap BUN Creatinine Est Cr Clr Drug Dosing Est GFR ( Amer) Est GFR (Non-Af Amer) BUN/Creatinine Ratio Glucose POC Glucose Calcium Magnesium Total Bilirubin Direct Bilirubin AST ALT Alkaline Phosphatase C-Reactive Protein Total Protein Albumin Lipase Diagnostic Findings Bio[employer] GI panel negative [employer] respiratory panel negative PG Care Time/CCT Total # of Minutes Spent Total Time Spent with Patient: Total time spent is greater than 50% in coordination of care (as documented) at patient's floor/unit and/or counseling patient: Coding Level of Care Code 83011 Subseq Hosp Care Lvl 3 Diagnoses Gastroenteritis K52.9 Acute hypokalemia E87.6 Hypomagnesemia E83.42 CAD (coronary artery disease) I25.10 Associated angina: unspecified whether angina present Coronary Disease-Associated Artery/Lesion type: [place] artery [place] vs. transplanted heart: [place] heart NSTEMI (non-ST elevated myocardial infarction) I21.4 S/P coronary artery stent placement Z95.5 OCD (obsessive compulsive disorder) F42.9 Hypothyroidism E03.9 Hypertension I10 Dyslipidemia E78.5 Diabetes type 2, uncontrolled E11.65 Tobacco abuse Z72.0 Abdominal pain R10.9 (1) CAD (coronary artery disease) Associated angina: unspecified whether angina present Coronary Disease- Associated Artery/Lesion type: [place] artery [place] vs. transplanted heart: [place] heart Qualified Code(s): I25.10 - Atherosclerotic heart disease of [place] coronary artery without angina pectoris
[2021-04-07] MEDS: NSS + 20MEQ KCL 20 MEQ/1,000 ML BAG IV SCH ×2 (11:20→18:17)
[2021-04-07] MEDS: FAMOTIDINE 20 MG in SYRINGE 3 ML IV SCH ×2 (11:20→20:02)
[2021-04-07] MEDS: MAGNESIUM SULFATE / D5W 1 GM/100 ML BAG IV SCH ×2 (11:28→12:49)
[2021-04-07 12:33] LABS: Adenovirus PCR Not Detected (NotDetected); Bordetella parapertussis PCR Not Detected (NotDetected); Bordetella pertussis PCR Not Detected (NotDetected); Chlamydia pneumoniae PCR Not Detected (NotDetected); Coronavirus 229E PCR Not Detected (NotDetected); Coronavirus CoV-2 (COVID19)PCR Not Detected (NotDetected); Coronavirus HKU1 PCR Not Detected (NotDetected); Coronavirus NL63 PCR Not Detected (NotDetected); Coronavirus OC43PCR Not Detected (NotDetected); Human Metapneumovirus PCR Not Detected (NotDetected); Influenza A PCR Not Detected (NotDetected); Influenza B PCR Not Detected (NotDetected); Mycoplasma pneumoniae PCR Not Detected (NotDetected); Parainfluenza Virus 1 PCR Not Detected (NotDetected); Parainfluenza Virus 2 PCR Not Detected (NotDetected); Parainfluenza Virus 3 PCR Not Detected (NotDetected); Parainfluenza Virus 4 PCR Not Detected (NotDetected); Respiratory Syncytial VirusPCR Not Detected (NotDetected); Rhinovirus/Enterovirus PCR Not Detected (NotDetected)
--- NOTE | 2021-04-07 12:55 | Pharmacy Report ---
Pharmacy Glycemic Short Note 2 - Date of Service April 07, 2021 - Glycemic Short BSG Results (Last 24 hours): 04/06/21 04/06/21 04/07/21 17:16 20:50 02:09 Glucose POC Glucose 192 H 205 H 187 H 04/07/21 04/07/21 04/07/21 08:12 09:54 11:58 Glucose 263 H POC Glucose 196 H 206 H OUTPATIENT ANTIDIABETIC REGIMEN: * Dapagliflozin 10 mg PO daily * Lantus 50 units SQ HS * Humalog 20 units TID with meals * HbA1c: 10.8% (04/04/21) ASSESSMENT: 04/07/21 * BSGs elevated yesterday, ranging 189-207 mg/dL, fasting BSG of 196 mg/dL this morning * Received 105 units of insulin (60 units of basal and 45 units of prandial/correctional Novolog) * Will increase basal insulin today and tighten carb ratio 04/06/21 * Patient's BSGs yesterday were [phone] mg/dL. Fasting today is 207 mg/dL. * Patient received 77 units of insulin yesterday (50 units of basal and 27 units of bolus). * Fasting trending upwards plus previous data suggests patient requires more Lantus while inhouse. Will increase to Lantus 60 units * Continue Novolog. Baseline * 60 y/o F admitted with N/V, gastroenteritis, hypokalemia and hypomagnesemia. Patient with history of Type 2 diabetes managed on oral Dapagliflozin, basal and bolus insulin regimen at home. * Hold oral Dapagliflozin while admitted and continue on basal + bolus insulin for glycemic control. * However, serum potassium level has been low, 2.4 this AM then 2.[address] Fair, hold SQ insulin until K level is greater than 3.0. * When Novolog okay to resume, then plan to start using CF and CR based off of total daily home insulin dose of 110 units. PLAN FOR INPATIENT GLYCEMIC CONTROL: * Hold outpatient oral diabetes medications * Basal insulin - increase * Lantus 5 units SC x 1 this morning * Lantus 60 units SQ HS * Bolus insulin - tighten * NovoLog per scale ACHS or Q6hrs while NPO * Goal Range: Low 110 mg/dL - High 140 mg/dL * Correction Factor: 15 mg/dL/unit * Nutritional / Prandial insulin per carb ratio of 1 unit per 3.5 grams CHO consumed PLAN FOR DISCHARGE: * Please see [facility] Note. * Recommend patient follow up with endocrinology regarding diabetes care and nutrition counseling.
[2021-04-07] MEDS: SUCRALFATE 1 GM/10 ML UDC PO SCH ×3 (13:56→20:02)
[2021-04-07] MEDS: fluvoxaMINE MALEATE 50 MG TAB PO SCH (20:03)
[2021-04-07] MEDS: INSULIN GLARGINE SOLOSTAR 100 UNITS/ML 3 ML PEN SQ SCH (21:30)
[2021-04-08] MEDS: ACETAMINOPHEN 325 MG TAB PO PRN ×2 (03:13→21:06)
[2021-04-08] MEDS: ONDANSETRON 4 MG OD TAB PO PRN (05:15)
[2021-04-08] MEDS: LEVOTHYROXINE SODIUM 88 MCG TABLET PO SCH (05:37)
[2021-04-08] MEDS: SUCRALFATE 1 GM/10 ML UDC PO SCH ×4 (08:15→21:08)
[2021-04-08] MEDS: FAMOTIDINE 20 MG in SYRINGE 3 ML IV SCH ×2 (08:32→22:20)
[2021-04-08] MEDS: TICAGRELOR 90 MG TAB PO SCH ×2 (08:33→21:08)
[2021-04-08] MEDS: ATORVASTATIN 40 MG TAB PO SCH (08:33)
[2021-04-08] MEDS: ASPIRIN 81 MG ECTAB PO SCH (08:34)
[2021-04-08] MEDS: MAGNESIUM OXIDE 400 MG TAB PO SCH ×2 (08:34→21:09)
[2021-04-08] MEDS: lisinopril 40 MG TAB PO SCH (08:34)
[2021-04-08] MEDS: METOPROLOL TARTRATE 25 MG TAB PO SCH ×2 (08:34→21:14)
[2021-04-08] MEDS: busPIRone 5 MG TAB PO SCH ×3 (08:35→21:07)
[2021-04-08] MEDS: NYSTATIN POWDER 15GM BTL EXT SCH ×2 (08:36→21:08)
[2021-04-08] MEDS: NYSTATIN/TRIAMCIN CR 15 GM TUBE EXT SCH ×2 (08:36→21:08)
[2021-04-08] MEDS: INSULIN ASPART PER UNIT SC SCH ×4 (08:39→22:09)
[2021-04-08] MEDS: clonazePAM 0.5 MG TAB PO SCH (08:39)
[2021-04-08 10:30] LABS: Albumin Level 3.1 gm/dl (3.4-5.0); BUN Creatinine Ratio 8.3 (10-20); Bilirubin,Total 0.5 mg/dl (0.2-1.0); Creatinine Clr Calc Pharmacy 84.3 ml/min; Est GFR (African American) 104.8 ml/min; Est GFR (Non-African American) 90.4 ml/min; Globulin 3.1 gm/dl (2.5-4.0); Magnesium 1.5 mg/dl (1.7-2.4); Potassium 3.6 mmol/L (3.5-5.1); Total Protein 6.2 gm/dl (6.0-8.3)
[2021-04-08] MEDS ORDERED: NSS + 20MEQ KCL 20 MEQ/1,000 ML BAG IV SCH (10:45)
[2021-04-08] MEDS: PANTOprazole 40 MG TAB PO SCH (10:50)
[2021-04-08] MEDS: MAGNESIUM SULFATE / D5W 1 GM/100 ML BAG IV SCH ×3 (10:51→14:39)
--- NOTE | 2021-04-08 13:09 | XRay Report ---
XR abdomen 2V w PA chest HISTORY: 60 years-old Female ongoing R abd pain, nausea/emesis acute right-sided abdominal pain with nausea and vomiting COMPARISON: CT abdomen pelvis and chest radiograph 04/03/2021 TECHNIQUE: PA view the chest with erect and supine views of the abdomen FINDINGS: Cardiac silhouette is enlarged. Coronary arterial stent graft. Mild chronic interstitial coarsening. No pneumothorax, pleural effusion, airspace consolidation or overt pulmonary edema. Degenerative hines ges of the shoulders and spine. Cholecystectomy. Hepatomegaly. Nonobstructive bowel gas pattern. No pneumatosis or pneumoperitoneum. No urolith or acute fracture. Mild to moderate fecal retention. IMPRESSION: 1. No acute processes of the chest. 2. Nonobstructive bowel gas pattern. 3. Mild to moderate fecal retention. ACT 112: Negative or not required by law. The above report was generated using voice recognition software. It may contain grammatical, syntax o r spelling errors. Electronically signed by: Willard Cooper M.D. 04/08/2021 1:08 PM
[2021-04-08] MEDS ORDERED: bisacodyL 10 MG SUPP PR STA (14:16)
--- NOTE | 2021-04-08 15:04 | Gastrointestinal Consultation ---
Date of Consultation April 08, 2021 Assessment & Plan (1) Abdominal pain: (2) NSAID long-term use: possible PUD vs. severe gastritis or other etiology for her pain. mild constipation on KUB. she is on aspirin and brilinta chronically. recs: NPO post midnight EGD tomorrow to further evaluate miralax 17 g daily for constipation supportive care Thank you for allowing me to participate in the care of this patient History of Present Illness Attending Physician: Demetrius Mancilla History of Present Illness 60-year-old female with a past medical history including depression, OCD, psoriasis, drug-induced tremor, cervical mass, vulvitis, non-STEMI, LAD CHANTAL, CAD, obesity, hypothyroidism, hypertension, tobacco abuse, dyslipidemia and diabetes mellitus here with abdominal pain. imaging showed possible gastroenteritis vs. ileus, she was placed on PPI, pepcid and carafate without any significant improvement. pain is diffuse across the abdomen. No constipation, nausea vomiting. KUB today showed mild stool burden but no ileus. She is s/p CCY, imaging shows normal CBD and LFTs are unremarkable. labs reviewed, hypertensive. Allergies Allergy/AdvReac Type Severity Reaction Status Date / Time albiglutide [From [facility]] AdvReac Unknown Unknown Verified 04/03/21 22:11 dulaglutide [facility] AdvReac Unknown Unknown Verified 04/03/21 22:11 Home Medications Medication Instructions Recorded Confirmed Type aspirin 81 mg tablet,delayed 81 mg PO QAM 10/16/20 04/03/21 History release dapagliflozin 10 mg tablet 10 mg PO QAM 10/22/20 04/03/21 History ([facility]) buspirone 10 mg tablet 10 mg PO TID #90 tab 10/24/20 04/03/21 Rx lisinopril 40 mg tablet 40 mg PO QAM 30 Days #30 tab 10/25/20 04/03/21 Rx metoprolol tartrate 25 mg tablet 25 mg PO BID 30 Days #180 tab 10/25/20 04/03/21 Rx nystatin-triamcinolone 100,000 1 applic TOPICAL ONCE #15 g 11/10/20 04/03/21 Rx unit/gram-0.1 % topical ointment ticagrelor 90 mg tablet (Brilinta) 90 mg PO BID 90 Days #180 tab 11/21/20 04/03/21 Rx insulin glargine 100 unit/mL (3 50 unit SUBCUT HS milliliter 12/14/20 04/03/21 History mL) subcutaneous pen (Lantus Solostar U-100 Insulin) insulin lispro 100 unit/mL 20 unit SUBCUT TID #15 ml 03/14/21 04/03/21 Rx subcutaneous pen (Humalog KwikPen (U-100) Insulin) nystatin 100,000 unit/gram topical 1 applic TOPICAL BID #60 g 03/14/21 04/03/21 Rx powder atorvastatin 80 mg tablet 80 mg PO QAM 03/15/21 04/03/21 History fluvoxamine 50 mg tablet 50 mg PO HS 03/15/21 04/03/21 History levothyroxine 88 mcg tablet 88 mcg PO QAM 03/15/21 04/03/21 History clonazepam 0.5 mg tablet (Klonopin) 0.5 mg PO QAM #30 tab 03/27/21 04/03/21 Rx Patient History Medical History Anxiety CAD (coronary artery disease) No remaining occlusive disease after 2 LAD drug eluting stents 10/22/20. Follows with Dr. Harris Chronic headaches Depression Diabetes type 2, uncontrolled IDDM Dyslipidemia Hypertension Hypothyroidism NSTEMI (non-ST elevated myocardial infarction) 10/22/2020 s/p 2 CHANTAL Obesity Osteoarthritis Renal insufficiency Tobacco abuse Surgical History History of cardiac catheterization 10/22/2020 Dominant: Right Left Main (% Stenosis): Normal LAD (% Stenosis): Proximal (99) and Mid (75) Circumflex (% Stenosis): Normal (luminal irregularities) RCA (% Stenosis): Normal (Luminal irregularities) 2 CHANTAL to LAD History of cholecystectomy History of dental surgery History of tonsillectomy S/P coronary artery stent placement 2 CHANTAL to LAD 10/22/2020 Family History Unknown Diabetes Thyroid disorder Father Diabetes Other No family history of adverse response to anesthesia Denies family history of Ovarian cancer Prostate cancer Breast cancer Colorectal cancer Uterine cancer Social History Smoking Status: Current every day smoker Tobacco Type: Cigarettes packs per day: 0.5; Cigarettes Per Day: 10; Second Hand Exposure: No; Do You Dip or Chew Tobacco: No; Tobacco Cessation Education Requested by Patient: Yes Hx Alcohol Use: No Hx Substance Use: No Preferred Language: Maltese Communication Ability: Effective [employer] Supervisor Required: No Beliefs That Will Affect Care: None marital status: Single Current Living Situation: Alone Other Information That Helps Us Care for You: No Feels Safe at Home: Yes Safety Concerns: Feels Safe At This Time Safety Concerns Comment: Gets nervous sometimes because she lives alone, gets shaky from anxiety caffeine: Yes Dental Care, Regularly: No Physical Activity Frequency: Does not Exercise Seatbelt Use: always Sunscreen Use: No Assistive Devices: None Review of Systems Constitutional: no fever, no chills and no weight loss Eyes: as per Subjective / HPI Ear, Nose, Mouth, Throat: as per Subjective / HPI Respiratory: no dyspnea and no dyspnea on exertion Cardiovascular: no chest pain and no palpitations Gastrointestinal: as per Subjective / HPI Musculoskeletal: no joint pain and no swelling Integumentary: no rash and no lesions Neurologic: no numbness and no paresthesia Psychiatric: no depression and no anxiety Endocrine: no fatigue Hematologic / Lymphatic: no easy bleeding and no easy bruising Physical Exam Constitutional: WD/WN, vitals as above Eyes: EOM intact bilaterally Neck: normal visual inspection Respiratory: normal respiratory effort, lungs clear to auscultation Cardiovascular: RRR, no murmur, no edema Gastrointestinal (Abdomen): Inspection/Auscultation: abdomen normal to inspection; abdomen not distended Percussion/Palpation: abdomen soft; abdomen nontender and no hepatosplenomegaly Musculoskeletal: Extremities: no cyanosis Gait: normal gait Skin: no rashes, warm and dry Neurologic: moves all extremities Psychiatric: A+Ox3, euthymic affect Results & Data ([facility]) Vital Signs (Past 12 Hours) Vital Signs Temp Pulse Resp BP Pulse Ox 04/08/21 07:31 36.7 C 77 21 174/89 H 95 PG Care Time/CCT Total # of Minutes Spent Total Time Spent with Patient: Total time spent is greater than 50% in coordination of care (as documented) at patient's floor/unit and/or counseling patient: Coding Level of Care Code 92677 Inpt Consult Level 4 Diagnoses Abdominal pain R10.9 NSAID long-term use Z79.1
--- NOTE | 2021-04-08 19:15 | Hospitalist Progress Note ---
Date of Service April 08, 2021 Assessment & Plan (1) Abdominal pain: Plan: despite supportive care for 5+ days, PPI/[id number]/carafate, etc she continues with epigastric & right sided abdominal pain. initially thought to have viral GE earlier this stay based on her admission CT findings. Biofire respiratory panel and biofire stool panel both fully negative. RUQ u/s negative for biliary tract pathology. lipase/LFTs wnl. remains on carafate 1gm QID. PPI. H2 elizabeth IV bid. Dr Glover was consulted from [facility] today. KUB x-ray obtained; no ileus or SBO. mild stool burden - dulcolax suppo x 1 and miralax. EGD in am planned - r/o PUD, r/o gastritis, etc. keep on clears until midnight, then NPO after that for EGD on 04/09. (2) Gastroenteritis: Plan: suspected at time of admission. Fecal occult blood negative. BioFire Stool PCR negative. RUQ u/s negative. CT abd/pelvis - ileus vs GE. BioFire resp panel also negative including COVID-19 testing. see #1 above. (3) Acute hypokalemia: Plan: supplemented in IV fluids. resolved BMP am (4) Hypomagnesemia: Plan: still low today will give additional IV mag sulfate repeat mag level am (5) CAD (coronary artery disease): Plan: CAD/hypertension/NSTEMI/LAD stent- Continue aspirin, metoprolol tartrate and Brilinta Continue lisinopril Of note - I asked her today if any of her current symptoms are similar to past cardiac symptoms and she confirmed NO (6) NSTEMI (non-ST elevated myocardial infarction): Plan: History of such. (7) S/P coronary artery stent placement: Plan: noted (8) OCD (obsessive compulsive disorder): Plan: OCD/anxiety- Continue clonazepam, fluvoxamine (9) Hypothyroidism: Plan: TSH within normal limits in October 2020 Continue levothyroxine (10) Hypertension: Plan: Cont home meds (11) Dyslipidemia: Plan: Cont atorvastatin LFTs wnl (12) Diabetes type 2, uncontrolled: Plan: Appreciate pharmacy consult for glycemic control and recs Excellent control today HbA1c 10.8 (improved from 15.8 in October 2020) Appreciate diabetic education (13) Tobacco abuse: Plan: Current tobacco user Cessation counseling Plan: left message for pt's brother on his voicemail today appreciate GI consultation Admission and Anticipated Discharge Date Admission Date: April 03, 2021 Subjective despite addition of carafate/[id number]/PPI she continues with nausea, dry heaves, abd upset, and right-sided/epigastric abd pain the symptoms are not worse, but certainly no better either she is frustrated by her lack of improvement we discussed what testing has been done, and that GI will be seeing her today she offered no new complaints today Review of Systems Review of Systems: gen - fatigue remains, lack of appetite remains, no fevers/chills cv - no chest pain pulm - mild cough, no dyspnea GI - no bilious emesis; passing gas, but no stool or diarrhea in 2+ days musculo - still feeling achy/myalgias Physical Exam Physical Exam: gen - NAD, lying flat in bed comfortably mouth - MMM heart - RRR, s1 s2, no murmur lungs - CTA b/l abd - mildly tender epigastric region and right side of abdomen once again - mild; still no Patton's sign; mildly distended; no HSM; BS+ ext - no edema, pulses 2+ b/l psych - a/o x 3 Results & Data Results & Data ([facility]) Vital Signs (Past 12 Hours) Vital Signs Temp Pulse Pulse Resp BP Pulse Ox 04/08/21 15:33 36.3 C L 57 L 18 164/78 H 99 04/08/21 07:31 36.7 C 77 21 174/89 H 95 Laboratory Results Laboratory Results - last 24 hr 04/07/21 04/08/21 04/08/21 20:49 02:02 07:50 Sodium Potassium Chloride Carbon Dioxide Anion Gap BUN Creatinine Est Cr Clr Drug Dosing Est GFR ( Amer) Est GFR (Non-Af Amer) BUN/Creatinine Ratio Glucose POC Glucose 161 H 109 H 147 H Calcium Magnesium Total Bilirubin AST ALT Alkaline Phosphatase Total Protein Albumin Globulin Albumin/Globulin Ratio 04/08/21 04/08/21 04/08/21 09:56 12:02 17:10 Sodium 134 L Potassium 3.6 Chloride 102 Carbon Dioxide 26 Anion Gap 6 BUN 6 Creatinine 0.72 Est Cr Clr Drug Dosing 84.3 Est GFR ( Amer) 104.8 Est GFR (Non-Af Amer) 90.4 BUN/Creatinine Ratio 8.3 L Glucose 165 H POC Glucose 166 H 236 H Calcium 8.0 L Magnesium 1.5 L Total Bilirubin 0.5 AST 14 ALT 19 Alkaline Phosphatase 126 H Total Protein 6.2 Albumin 3.1 L Globulin 3.1 Albumin/Globulin Ratio 1.0 Diagnostic Findings Chest/Abdomen X-ray 04/08/21 12:14 XR abdomen 2V w PA chest HISTORY: 60 years-old Female ongoing R abd pain, nausea/emesis acute right- sided abdominal pain with nausea and vomiting COMPARISON: CT abdomen pelvis and chest radiograph 04/03/2021 TECHNIQUE: PA view the chest with erect and supine views of the abdomen FINDINGS: Cardiac silhouette is enlarged. Coronary arterial stent graft. Mild chronic interstitial coarsening. No pneumothorax, pleural effusion, airspace consolidation or overt pulmonary edema. Degenerative changes of the shoulders and spine. Cholecystectomy. Hepatomegaly. Nonobstructive bowel gas pattern. No pneumatosis or pneumoperitoneum. No urolith or acute fracture. Mild to moderate fecal retention. IMPRESSION: 1. No acute processes of the chest. 2. Nonobstructive bowel gas pattern. 3. Mild to moderate fecal retention. ACT 112: Negative or not required by law. The above report was generated using voice recognition software. It may contain grammatical, syntax or spelling errors. Electronically signed by: Willard Cooper M.D. 04/08/2021 1:08 PM PG Care Time/CCT Total # of Minutes Spent Total Time Spent with Patient: Total time spent is greater than 50% in coordination of care (as documented) at patient's floor/unit and/or counseling patient: Coding Level of Care Code 12739 Subseq Hosp Care Lvl 2 Diagnoses Abdominal pain R10.9 Gastroenteritis K52.9 Acute hypokalemia E87.6 Hypomagnesemia E83.42 CAD (coronary artery disease) I25.10 Associated angina: unspecified whether angina present Coronary Disease-Associated Artery/Lesion type: [place] artery [place] vs. transplanted heart: [place] heart NSTEMI (non-ST elevated myocardial infarction) I21.4 S/P coronary artery stent placement Z95.5 OCD (obsessive compulsive disorder) F42.9 Hypothyroidism E03.9 Hypertension I10 Dyslipidemia E78.5 Diabetes type 2, uncontrolled E11.65 Tobacco abuse Z72.0 (1) CAD (coronary artery disease) Associated angina: unspecified whether angina present Coronary Disease- Associated Artery/Lesion type: [place] artery [place] vs. transplanted heart: [place] heart Qualified Code(s): I25.10 - Atherosclerotic heart disease of [place] coronary artery without angina pectoris
[2021-04-08] MEDS: fluvoxaMINE MALEATE 50 MG TAB PO SCH (21:10)
[2021-04-08] MEDS: INSULIN GLARGINE SOLOSTAR 100 UNITS/ML 3 ML PEN SQ SCH (22:10)
[2021-04-08] MEDS ORDERED: Nursing to Pharmacy Communication SCH (22:45)
[2021-04-09] MEDS: INSULIN ASPART PER UNIT SC SCH ×5 (00:11→21:42)
[2021-04-09] MEDS: LEVOTHYROXINE SODIUM 88 MCG TABLET PO SCH (06:04)
[2021-04-09 07:03] LABS: BUN Creatinine Ratio 8.5 (10-20); Calcium 8.5 mg/dl (8.5-10.1); Est GFR (African American) 89.5 ml/min; Est GFR (Non-African American) 77.2 ml/min; Magnesium 1.9 mg/dl (1.7-2.4); Potassium 3.8 mmol/L (3.5-5.1)
[2021-04-09] MEDS: ASPIRIN 81 MG ECTAB PO SCH (08:25)
[2021-04-09] MEDS: ATORVASTATIN 40 MG TAB PO SCH (08:25)
[2021-04-09] MEDS: busPIRone 5 MG TAB PO SCH ×3 (08:26→21:34)
[2021-04-09] MEDS: lisinopril 40 MG TAB PO SCH (08:26)
[2021-04-09] MEDS: MAGNESIUM OXIDE 400 MG TAB PO SCH ×2 (08:26→21:36)
[2021-04-09] MEDS: FAMOTIDINE 20 MG in SYRINGE 3 ML IV SCH (08:26)
[2021-04-09] MEDS: METOPROLOL TARTRATE 25 MG TAB PO SCH ×2 (08:27→21:36)
[2021-04-09] MEDS: NYSTATIN/TRIAMCIN CR 15 GM TUBE EXT SCH ×2 (08:27→21:37)
[2021-04-09] MEDS: NYSTATIN POWDER 15GM BTL EXT SCH ×2 (08:28→21:37)
[2021-04-09] MEDS: PANTOprazole 40 MG TAB PO SCH (08:29)
[2021-04-09] MEDS: TICAGRELOR 90 MG TAB PO SCH ×2 (08:29→21:36)
[2021-04-09] MEDS: SUCRALFATE 1 GM/10 ML UDC PO SCH ×2 (08:29→13:38)
[2021-04-09] MEDS: ACETAMINOPHEN 325 MG TAB PO PRN ×2 (08:33→22:38)
--- NOTE | 2021-04-09 10:09 | History & Physical Bridge Note ---
Date of Service April 09, 2021 History & Physical Bridge Note I have examined the patient, reviewed the History & Physical and in the interval since the performance of the History & Physical I have noted the following changes of clinical significance: no changes noted. Patient does note some improvement of her abdominal pain--she notes that it's less sharp. Proceed with EGD today with Dr. Glover for further evaluation of her abdominal pain.
[2021-04-09] MEDS: clonazePAM 0.5 MG TAB PO SCH (10:24)
--- NOTE | 2021-04-09 12:58 | Pharmacy Report ---
Pharmacy Glycemic Short Note 2 - Date of Service April 09, 2021 - Glycemic Short BSG Results (Last 24 hours): 04/08/21 04/08/21 04/09/21 17:10 21:01 00:06 Glucose POC Glucose 236 H 153 H 143 H 04/09/21 04/09/21 04/09/21 05:29 05:58 08:24 Glucose 94 POC Glucose 97 104 H 04/09/21 04/09/21 10:29 12:24 Glucose POC Glucose 115 H 99 OUTPATIENT ANTIDIABETIC REGIMEN: * Dapagliflozin 10 mg PO daily * Lantus 50 units SQ HS * Humalog 20 units TID with meals * HbA1c: 10.8% (04/04/21) ASSESSMENT: 04/09/21 * Patient very anxious regarding current BSGs (97, 99 mg/dL) and concerned for hypoglycemia * Will loosen basal and bolus insulin today, will likely need to increase again as diet is advanced * NPO for EGD today 04/07/21 * BSGs elevated yesterday, ranging 189-207 mg/dL, fasting BSG of 196 mg/dL this morning * Received 105 units of insulin (60 units of basal and 45 units of prandial/correctional Novolog) * Will increase basal insulin today and tighten carb ratio 04/06/21 * Patient's BSGs yesterday were [phone] mg/dL. Fasting today is 207 mg/dL. * Patient received 77 units of insulin yesterday (50 units of basal and 27 units of bolus). * Fasting trending upwards plus previous data suggests patient requires more Lantus while inhouse. Will increase to Lantus 60 units * Continue Novolog. Baseline * 60 y/o F admitted with N/V, gastroenteritis, hypokalemia and hypomagnesemia. Patient with history of Type 2 diabetes managed on oral Dapagliflozin, basal and bolus insulin regimen at home. * Hold oral Dapagliflozin while admitted and continue on basal + bolus insulin for glycemic control. * However, serum potassium level has been low, 2.4 this AM then 2.[address] Fair, hold SQ insulin until K level is greater than 3.0. * When Novolog okay to resume, then plan to start using CF and CR based off of total daily home insulin dose of 110 units. PLAN FOR INPATIENT GLYCEMIC CONTROL: * Hold outpatient oral diabetes medications * Basal insulin - decrease * Lantus 20-35 units SC HS (see EHR for details) * Bolus insulin - loosen * NovoLog per scale ACHS or Q6hrs while NPO * Goal Range: Low 110 mg/dL - High 140 mg/dL * Correction Factor: 15 mg/dL/unit * Nutritional / Prandial insulin per carb ratio of 1 unit per 5 grams CHO consumed PLAN FOR DISCHARGE: * Please see Supervisor [employer] Estate Office Note. * Recommend patient follow up with endocrinology regarding diabetes care and nutrition counseling.
--- NOTE | 2021-04-09 15:22 | Anesthesiology Consultation ---
Date of Service April 09, 2021 Assessment & Plan (1) Encounter for pre-operative examination: Chart Review Chart Review: Acceptable Risk for Surgery, Patient NOT seen in Pre Admission Testing and entry processor initiated Consults Requested none ASA ASA3 Proposed Anesthesia Anesthesia Type: MAC Risk / Benefits Reviewed With: PT / POA / Parent / Guardian, Accepts Plan and Informed Consent Obtained History Surgery Operation Date: 04/09/21 16:30 Proposed Procedures p Esophagogastroduodenoscopy Dr. Glover - Randall Glover MD Height/Weight Height: 5 ft 1 in Weight: 91 kg Allergies Allergy/AdvReac Type Severity Reaction Status Date / Time albiglutide [From Tanzeum] AdvReac Unknown Unknown Verified 04/09/21 14:59 dulaglutide [From Trulicity] AdvReac Unknown Unknown Verified 04/09/21 14:59 Medications Home Medications Medication Instructions Recorded Confirmed Last Taken aspirin 81 mg tablet,delayed 81 mg PO QAM 10/16/20 04/03/21 11/18/20 release dapagliflozin 10 mg tablet 10 mg PO QAM 10/22/20 04/03/21 11/18/20 ([facility]) buspirone 10 mg tablet 10 mg PO TID #90 tab 10/24/20 04/03/21 11/18/20 lisinopril 40 mg tablet 40 mg PO QAM 30 Days #30 tab 10/25/20 04/03/21 11/18/20 metoprolol tartrate 25 mg tablet 25 mg PO BID 30 Days #180 tab 10/25/20 04/03/21 11/18/20 nystatin-triamcinolone 100,000 1 applic TOPICAL ONCE #15 g 11/10/20 04/03/21 11/18/20 unit/gram-0.1 % topical ointment ticagrelor 90 mg tablet (Brilinta) 90 mg PO BID 90 Days #180 tab 11/21/20 04/03/21 Unknown insulin glargine 100 unit/mL (3 50 unit SUBCUT HS milliliter 12/14/20 04/03/21 Unknown mL) subcutaneous pen (Lantus Solostar U-100 Insulin) insulin lispro 100 unit/mL 20 unit SUBCUT TID #15 ml 03/14/21 04/03/21 Unknown subcutaneous pen (Humalog KwikPen (U-100) Insulin) nystatin 100,000 unit/gram topical 1 applic TOPICAL BID #60 g 03/14/21 04/03/21 Unknown powder atorvastatin 80 mg tablet 80 mg PO QAM 03/15/21 04/03/21 Unknown fluvoxamine 50 mg tablet 50 mg PO HS 03/15/21 04/03/21 Unknown levothyroxine 88 mcg tablet 88 mcg PO QAM 03/15/21 04/03/21 Unknown clonazepam 0.5 mg tablet (Klonopin) 0.5 mg PO QAM #30 tab 03/27/21 04/03/21 Unknown Active Medications Generic Name Dose Route Start Last Admin Trade Name Freq PRN Reason Stop Dose Admin Acetaminophen 650 mg 04/04/21 00:15 04/09/21 08:33 Acetaminophen 325 Mg Tab PO 05/04/21 00:14 650 mg Q4H PRN Administration pain/fever Aspirin 81 mg 04/04/21 09:00 04/09/21 08:25 Aspirin 81 Mg Ectab PO 05/04/21 08:59 81 mg QAM TONI Administration Atorvastatin Calcium 80 mg 04/04/21 09:00 04/09/21 08:25 Atorvastatin 40 Mg Tab PO 05/04/21 08:59 80 mg QAM TONI Administration Buspirone HCl 10 mg 04/04/21 09:00 04/09/21 13:38 Buspirone 5 Mg Tab PO 05/04/21 08:59 10 mg TID TONI Administration Clonazepam 0.5 mg 04/04/21 09:00 04/09/21 10:24 Clonazepam 0.5 Mg Tab PO 05/04/21 08:59 0.5 mg QAM TONI Administration Fluvoxamine Maleate 50 mg 04/04/21 21:00 04/08/21 21:10 Fluvoxamine Maleate 50 Mg Tab PO 05/04/21 20:59 50 mg HS TONI Administration Famotidine 20 mg/ Syringe 5 mls @ 2.5 mls/min 04/07/21 11:15 04/09/21 08:26 IV 05/07/21 11:14 2.5 mls/min BID TONI Administration Insulin Aspart 0 units 04/09/21 00:00 04/09/21 13:02 Insulin Aspart Per Unit SC 05/09/21 00:00 Not Given Q6 TONI Insulin Glargine 0 units 04/08/21 21:00 04/08/21 22:10 Insulin Glargine Solostar 100 Units/Ml 3 Ml Pen SQ 05/06/21 20:59 40 units HS TONI Administration Protocol Levothyroxine Sodium 88 mcg 04/04/21 06:30 04/09/21 06:04 Levothyroxine Sodium 88 Mcg Tablet PO 05/04/21 06:29 88 mcg DAILYBB TONI Administration Lisinopril 40 mg 04/05/21 12:45 04/09/21 08:26 Lisinopril 40 Mg Tab PO 05/05/21 12:44 40 mg QAM TONI Administration Magnesium Oxide 800 mg 04/06/21 21:00 04/09/21 08:26 Magnesium Oxide 400 Mg Tab PO 05/06/21 20:59 800 mg BID TONI Administration Metoprolol Tartrate 25 mg 04/04/21 00:45 04/09/21 08:27 Metoprolol Tartrate 25 Mg Tab PO 05/04/21 00:44 25 mg BID TONI Administration Miscellaneous 1 ea 04/04/21 08:00 04/09/21 08:25 Dapagliflozin [Farxiga]: Order Awaiting Action N/A 05/04/21 07:59 Not Gi rambo QS TONI Nystatin 1 appln 04/05/21 21:00 04/09/21 08:28 Nystatin Powder 15gm Btl EXT 05/05/21 20:59 1 appln BID TONI Administration Nystatin/Triamcinolone Acetonide 1 appln 04/04/21 21:00 04/09/21 08:27 Nystatin/Triamcin Cr 15 Gm Tube EXT 05/04/21 20:59 1 appln BID TONI Administration Ondansetron HCl 4 mg 04/04/21 00:15 04/05/21 19:48 Ondansetron Inj 2 Mg/Ml 2 Ml Vial IV 05/04/21 00:14 4 mg Q6H PRN Administration Nausea Ondansetron HCl 4 mg 04/07/21 06:44 04/08/21 05:15 Ondansetron 4 Mg Od Tab PO 05/07/21 06:43 4 mg Q6H PRN Administration Nausea Pantoprazole Sodium 40 mg 04/08/21 10:15 04/09/21 08:29 Pantoprazole 40 Mg Tab PO 05/08/21 10:14 40 mg QAM TONI Administration Sucralfate 1 gm 04/07/21 13:00 04/09/21 13:38 Sucralfate 1 Gm/10 Ml Udc PO 05/07/21 12:59 1 gm QID TONI Administration Ticagrelor 90 mg 04/04/21 00:45 04/09/21 08:29 Ticagrelor 90 Mg Tab PO 05/04/21 00:44 90 mg BID TONI Administration NPO Date Last Intake of Fluids: 04/09/21 Time Last Intake of Fluids: 13:38 Last Intake of Fluids Comment: sip with med Date Last Intake of Solids: 04/05/21 Time Last Intake of Solids: 18:00 Past Medical History Medical History (Updated 04/09/21 @ 15:27 by Harvey Luna MD) Anxiety CAD (coronary artery disease) No remaining occlusive disease after 2 LAD drug eluting stents 10/22/20. Follows with Dr. Harris Chronic headaches Depression Diabetes type 2, uncontrolled IDDM Dyslipidemia Encounter for pre-operative examination Hypertension Hypothyroidism NSTEMI (non-ST elevated myocardial infarction) 10/22/2020 s/p 2 CHANTAL Obesity Osteoarthritis Renal insufficiency Tobacco abuse Exercise / Class Metabolic Activity III < 4 Walking/Shop/Light housework Past Family History Family History Unknown Diabetes Thyroid disorder Father Diabetes Other No family history of adverse response to anesthesia Denies family history of Ovarian cancer Prostate cancer Breast cancer Colorectal cancer Uterine cancer Past Surgical History Surgical History History of cardiac catheterization 10/22/2020 Dominant: Right Left Main (% Stenosis): Normal LAD (% Stenosis): Proximal (99) and Mid (75) Circumflex (% Stenosis): Normal (luminal irregularities) RCA (% Stenosis): Normal (Luminal irregularities) 2 CHANTAL to LAD History of cholecystectomy History of dental surgery History of tonsillectomy S/P coronary artery stent placement 2 CHANTAL to LAD 10/22/2020 Past Anesthesia History No Hx of Anesthesia Complications and No Family Hx of Anesthesia Complications History of PONV No Hx of PONV and No Hx of Motion Sickness Social History Smoking Status: Current every day smoker tobacco type: cigarettes Smoking cigarettes per day: 10 Do You Dip or Chew Tobacco: No Hx Alcohol Use: No Hx Substance Use: No substance use type: does not use Physical Exam Vital Signs Last Vital Signs Temp 36.4 C L 04/09/21 14:59 Pulse 62 04/09/21 14:59 Resp 18 04/09/21 14:59 BP 181/87 H 04/09/21 14:59 Pulse Ox 96 04/09/21 14:59 Constitutional no acute distress ENMT Mouth: + dentition abnormality (Missing) and + chipped teeth (Chipped, broken, nubbins); no loose teeth Thyromental Distance: > or= 3.5 Finger Breadths Mallampati Class: II Neck normal visual inspection and trachea midline; neck extension not limited Respiratory normal respiratory effort; no respiratory distress Auscultation: lungs clear to auscultation bilaterally; no crackles, no rhonchi and no wheezes Cardiovascular Rate/Rhythm: regular rate and regular rhythm Heart Sounds: no gallop, no murmur and no cardiac rub Neurologic moves all extremities and awake Psychiatric Orientation: alert Testing Laboratory Results 04/07/21 09:54 04/09/21 05:29 Hemoglobin A1c 10.8 % (4.5-5.6) H 04/04/21 06:01 Urine Color Yellow 04/04/21 Unknown Urine Appearance Clear (Clear) 04/04/21 Unknown Urine pH 5.5 (4.5-7.5) 04/04/21 Unknown Ur Specific [place] > 1.045 (1.000-1.030) H 04/04/21 Unknown Urine Protein Negative (Negative) 04/04/21 Unknown Urine Glucose (UA) 3+ (Negative) H 04/04/21 Unknown Urine Ketones Negative (Negative) 04/04/21 Unknown Urine Nitrite Negative (Negative) 04/04/21 Unknown Ur Leukocyte Esterase Negative (Negative) 04/04/21 Unknown 04/09/21 04/09/21 04/09/21 12:24 10:29 08:24 POC Glucose 99 115 H 104 H 04/09/21 05:58 POC Glucose 97 Electrocardiogram Date: 11/20/20 Findings: + NSR @ and + NSST changes Chest X-Ray Date: 04/08/21 Findings: + NAD and + cardiomegaly Echocardiogram Date: 11/20/20 EF: 65-70% LV Function: normal RWMA: + none Cardiac Catheterization Date: 10/22/20 Findings: + pertinent finding (LAD 75-99% stenosis) Intervention: + CHANTAL placed
--- NOTE | 2021-04-09 16:07 | GI REPORT ---
Patient Name: Yolanda Lua Procedure Date: 04/09/2021 3:41 PM Date of : 1960 Admit Type: Inpatient Age: 60 Gender: Female Attending MD: Randall Glover MD Procedure: Upper GI endoscopy Providers: Randall Glover MD Referring MD: Referred Self Indications: Abdominal pain Medicines: Monitored Anesthesia Care Complications: No immediate complications. Estimated blood loss: None. Estimated Blood Loss: Estimated blood loss: none. Procedure: Pre-Anesthesia Assessment: - Prior Anticoagulants: The patient has taken no previous anticoagulant or antiplatelet agents. - ASA Grade Assessment: II - A patient with mild systemic disease. After obtaining informed consent, the endoscope was passed under direct vision. Throughout the procedure, the patient's blood pressure, pulse, and oxygen saturations were monitored continuously. The Endoscope was introduced through the mouth, and advanced to the second part of duodenum. The upper GI endoscopy was accomplished without difficulty. The patient tolerated the procedure well. Findings: The examined esophagus was normal. Diffuse mild inflammation characterized by erythema was found in the stomach. Biopsies were taken with a cold forceps for Helicobacter pylori testing. Estimated blood loss: none. The duodenal bulb and second portion of the duodenum were normal. Impression: - Normal esophagus. - Gastritis. Biopsied. - Normal duodenal bulb and second portion of the duodenum. Recommendation: - Resume previous diet today. - Await pathology results. - Return patient to hospital [facility] for ongoing care. Randall Glover MD 04/09/2021 4:07:24 PM This report has been signed electronically. Note Initiated On: 04/09/2021 3:41 PM Number of Addenda: 0 I attest to the content of the Intraoperative Record and orders documented therein, exceptions below {[id number]}
[2021-04-09] MEDS: POLYETHYLENE (MIRALAX) 17 GM PACK PO SCH (17:34)
[2021-04-09] MEDS: SENNA 8.6 MG TAB PO SCH (17:47)
[2021-04-09] MEDS ORDERED: SODIUM CHLORIDE 0.9% 1000ML 1,000 ML IV SCH (18:00)
--- NOTE | 2021-04-09 19:58 | Hospitalist Progress Note ---
Date of Service April 09, 2021 Assessment & Plan (1) Abdominal pain: Plan: ETIOLOGY?? despite supportive care for 5+ days, PPI/R6mgskqkx/carafate, etc she has continued with epigastric & right sided abdominal pain. initially thought to have viral GE earlier this stay based on her admission CT findings. Biofire respiratory panel and biofire stool panel both fully negative. RUQ u/s negative for biliary tract pathology. lipase/LFTs wnl. KUB x-ray yesterday - mild constipation. She refused a suppository yesterday following the KUB. s/p EGD today by Dr Glover - mild gastritis only; this does not explain her pain. Given the ongoing pain will obtain CT abd/pelvis - r/o developing appy, colitis, etc. re-eval in am. allow full liquids after her CT if CT is negative. (2) Gastroenteritis: Plan: suspected at time of admission - but unlikely to be the etiology of her symptoms. Fecal occult blood negative. BioFire Stool PCR negative. RUQ u/s negative. CT abd/pelvis - ileus vs GE. KUB x-ray - mild-moderate constipation. EGD - gastritis only. BioFire resp panel also negative including COVID-19 testing. see #1 above. (3) Acute hypokalemia: Plan: replaced/resolved (4) Hypomagnesemia: Plan: replaced/resolved (5) CAD (coronary artery disease): Plan: CAD/hypertension/NSTEMI/LAD stent- Continue aspirin, metoprolol tartrate and Brilinta Continue lisinopril Of note - patient reports her current symptoms are NOT similar to past cardiac symptoms (6) NSTEMI (non-ST elevated myocardial infarction): Plan: History of such. (7) S/P coronary artery stent placement: Plan: noted (8) OCD (obsessive compulsive disorder): Plan: OCD/anxiety- Continue clonazepam, fluvoxamine (9) Hypothyroidism: Plan: TSH within normal limits in October 2020 Continue levothyroxine (10) Hypertension: Plan: Cont home meds (11) Dyslipidemia: Plan: Cont atorvastatin LFTs wnl (12) Diabetes type 2, uncontrolled: Plan: Appreciate pharmacy consult for glycemic control and recs Control remains very good HbA1c 10.8 (improved from 15.8 in October 2020) Appreciate diabetic education (13) Tobacco abuse: Plan: Current tobacco user Cessation counseling Plan: left message for pt's brother on his voicemail yesterday appreciate GI consultation await repeat CT a/p Admission and Anticipated Discharge Date Admission Date: April 03, 2021 Subjective saw patient post-EGD she still was having right-sided abdominal pain with radiation into her right ba ck the two areas hurt at the same time no vomiting today but she was NPO since midnight no nausea no stool in several days denies dyspnea Review of Systems Review of Systems: gen - no fevers or chills cv - no chest pain pulm - no dyspnea GI - no emesis today musculo - did not complain of myalgias, just back pain (chronic) Physical Exam Physical Exam: gen - NAD, sitting at side of bed mouth - MMM heart - RRR, s1 s2, no murmur lungs - CTA b/l abd - mildly tender epigastric region and right side of abdomen once again - mild; BS+ musculo - lumbar spine region - tender paraspinal regions on right to palpation skin - no rash or shingles lesions ext - no edema, pulses 2+ b/l psych - a/o x 3 Results & Data Results & Data ([facility]) Vital Signs (Past 12 Hours) Vital Signs Temp Pulse Pulse Resp BP Pulse Ox 04/09/21 16:49 36.6 C 71 16 170/85 H 97 04/09/21 16:35 73 18 185/94 H 99 04/09/21 16:20 74 16 175/87 H 94 04/09/21 16:05 79 16 170/93 H 95 04/09/21 14:59 36.4 C L 62 18 181/87 H 96 04/09/21 14:23 36.4 C L 62 18 172/93 H 95 Laboratory Results CMP wnl PG Care Time/CCT Total # of Minutes Spent Total Time Spent with Patient: Total time spent is greater than 50% in coordination of care (as documented) at patient's floor/unit and/or counseling patient: Coding Level of Care Code 72703 Subseq Hosp Care Lvl 2 Diagnoses Abdominal pain R10.9 Gastroenteritis K52.9 Acute hypokalemia E87.6 Hypomagnesemia E83.42 CAD (coronary artery disease) I25.10 Associated angina: unspecified whether angina present Coronary Disease-Associated Artery/Lesion type: [place] artery [place] vs. transplanted heart: [place] heart NSTEMI (non-ST elevated myocardial infarction) I21.4 S/P coronary artery stent placement Z95.5 OCD (obsessive compulsive disorder) F42.9 Hypothyroidism E03.9 Hypertension I10 Dyslipidemia E78.5 Diabetes type 2, uncontrolled E11.65 Tobacco abuse Z72.0 (1) CAD (coronary artery disease) Associated angina: unspecified whether angina present Coronary Disease- Associated Artery/Lesion type: [place] artery [place] vs. transplanted heart: [place] heart Qualified Code(s): I25.10 - Atherosclerotic heart disease of [place] coronary artery without angina pectoris
[2021-04-09] MEDS ORDERED: OPTIRAY 320 125ml IV ONE (21:22)
[2021-04-09] MEDS: fluvoxaMINE MALEATE 50 MG TAB PO SCH (21:34)
[2021-04-09] MEDS: INSULIN GLARGINE SOLOSTAR 100 UNITS/ML 3 ML PEN SQ SCH (21:35)
[2021-04-09] MEDS ORDERED: Nursing to Pharmacy Communication SCH (22:00)
[2021-04-10] MEDS: LEVOTHYROXINE SODIUM 88 MCG TABLET PO SCH (04:56)
[2021-04-10 08:01] LABS: Basophils # (auto) 0.01 K/uL (0-0.2); Basophils % (auto) 0.1 %; Eosinophils # (auto) 0.35 K/uL (0-0.5); Eosinophils % (auto) 4.5 %; Hematocrit (blood only) 39.7 % (37-47); Immature Granulocytes # (auto) 0.01 K/uL (0.00-0.02); Immature Granulocytes % (auto) 0.1 %; Lymphocytes # (auto) 1.39 K/uL (1.2-3.4); Lymphocytes % (auto) 17.8 %; Mean Corpuscular Hemoglobin 27.7 pg (25-34); Mean Corpuscular Hgb Conc 32.7 g/dL (32-36); Mean Corpuscular Volume 84.6 fL (80-100); Mean Platelet Volume 10.1 fL (7.4-10.4); Monocytes # (auto) 0.38 K/uL (0.11-0.59); Monocytes % (auto) 4.9 %; Neutrophils # (auto) 5.66 K/uL (1.4-6.5); Neutrophils % (auto) 72.6 %; Platelet Count 252 K/uL (130-400); RDW Coefficient of Variation 14.7 % (11.5-14.5); RDW Standard Deviation 44.8 fL (36.4-46.3); Red Blood Count 4.69 M/uL (4.2-5.4)
[2021-04-10 08:19] LABS: BUN Creatinine Ratio 8.9 (10-20); Calcium 8.7 mg/dl (8.5-10.1); Creatinine Clr Calc Pharmacy 76.8 ml/min; Est GFR (African American) 93.6 ml/min; Est GFR (Non-African American) 80.8 ml/min; Potassium 4.1 mmol/L (3.5-5.1)
[2021-04-10] MEDS: ASPIRIN 81 MG ECTAB PO SCH (08:28)
[2021-04-10] MEDS: clonazePAM 0.5 MG TAB PO SCH (08:29)
[2021-04-10] MEDS: busPIRone 5 MG TAB PO SCH ×3 (08:29→20:47)
[2021-04-10] MEDS: ATORVASTATIN 40 MG TAB PO SCH (08:29)
[2021-04-10] MEDS: MAGNESIUM OXIDE 400 MG TAB PO SCH ×2 (08:30→20:48)
[2021-04-10] MEDS: lisinopril 40 MG TAB PO SCH (08:30)
--- NOTE | 2021-04-10 08:31 | CT Scan Report ---
CT angio chest dissec wo/w con, CT angio abdomen pelvis w con HISTORY: 60 years-old Female abd pain, back pain, ?dissection, acute chest and abdominal pain. COMPARISON: CT abdomen and pelvis 04/03/2021, CTA chest 11/21/2016. TECHNIQUE: CTA of the chest, abdomen and pelvis was obtained following the intravenous administration of 120 mL Optiray 320. Noncontrast chest CT was also obtained. Oral contrast was also used. 3-D manuel nal and sagittal MIPS were obtained from the axial data set and were submitted for review. All measur ements were obtained according to NASCET criteria. A dose lowering technique was used consistent with the principals of LEXIE. FINDINGS: CTA CHEST, ABDOMEN AND PELVIS: The noncontrast scan demonstrates no intramural or mediastinal hematoma. Mild atherosclerosis of the thoracic aorta without aneurysm or dissection. Moderate coronary artery calcifications with stents no mina within the left anterior descending artery. There is patency of the imaged great vessels. Unremar kable pulmonary artery. No pulmonary emboli are identified. Mild atherosclerosis of the abdominal aorta without aneurysm or dissection. The iliac and imaged femo ral arteries appear unremarkable and are patent. Widely patent celiac trunk, superior and inferior me senteric arteries. There is mild atherosclerotic plaque at the origin of the right renal artery resul ting in mild stenosis. Duplicated left renal arteries appear patent. No aneurysm, dissection, high-gr felicita stenosis or arterial occlusion. CT CHEST, ABDOMEN AND PELVIS: No thyroid nodule. Mild paratracheal and subcarinal adenopathy with lymph nodes measuring up to 1.2 c m within the subcarinal distribution, mildly increased in size from comparison. There are a few promi nent subcentimeter bilateral hilar chain lymph nodes. There is no pneumothorax or pleural effusion. B ilateral groundglass densities with mild intralobular and bronchial wall thickening. There are no christiano picious pulmonary nodules or masses identified. Mild bibasilar mucous plugging. Unremarkable soft tis sues. No acute fracture. Degenerative changes are noted within the shoulders and spine. No pneumatosis or pneumoperitoneum. Hepatic steatosis with mild hepatomegaly. Cholecystectomy. Unrema rkable spleen. Moderately atrophic pancreas. Unremarkable adrenal glands. There are a few subcentimet er hypodensities of the left kidney which are too small to characterize and suggest probable cysts. U nremarkable urinary bladder. 2.2 cm calcified lesion involving the right aspect of the uterus is sugg estive of a probable fibroid. No adnexal mass lesion. No adenopathy. No bowel obstruction or bowel wall thickening. There is mild fecal retention. Colonic diverticulosis without acute diverticulitis. Normal appendix. No ascites or mesenteric inflammation. 1.4 cm mid ante rior abdominal wall hernia contains fat with trace fluid. Mild stranding of the anterior wall subcuta neous tissues is suggestive of medicinal injection sites. Degenerative changes of the spine, pelvis and hips. No acute fracture identified. IMPRESSION: 1. Unremarkable CTA of the chest, abdomen and pelvis. There is mild atherosclerosis without aneurysm, dissection, high-grade stenosis or arterial occlusion. 2. Cardiomegaly with bilateral atelectasis and questioned mild pulmonary edema. 3. No bowel obstruction or bowel wall thickening. 4. Colonic diverticulosis. 5. Fibroid uterus. 6. Additional findings as above. ACT 112: Negative or not required by law. The above report was generated using voice recognition software. It may contain grammatical, syntax o r spelling errors. Dictated: 04/10/2021 8:03 AM Transcribed: 04/10/2021 8:28 AM Mariel [id number] [email or web address] Electronically signed by: Willard Cooper M.D. 04/10/2021 8:30 AM
[2021-04-10] MEDS: NYSTATIN/TRIAMCIN CR 15 GM TUBE EXT SCH ×2 (08:32→20:46)
[2021-04-10] MEDS: METOPROLOL TARTRATE 25 MG TAB PO SCH ×2 (08:32→20:47)
[2021-04-10] MEDS: POLYETHYLENE (MIRALAX) 17 GM PACK PO SCH (08:33)
[2021-04-10] MEDS: PANTOprazole 40 MG TAB PO SCH ×2 (08:33→20:48)
[2021-04-10] MEDS: SENNA 8.6 MG TAB PO SCH (08:34)
[2021-04-10] MEDS: TICAGRELOR 90 MG TAB PO SCH ×2 (08:34→20:48)
[2021-04-10] MEDS: ACETAMINOPHEN 325 MG TAB PO PRN ×2 (08:35→21:24)
[2021-04-10] MEDS: NYSTATIN POWDER 15GM BTL EXT SCH ×2 (08:36→20:49)
[2021-04-10] MEDS: INSULIN ASPART PER UNIT SC SCH ×4 (08:53→21:23)
--- NOTE | 2021-04-10 10:07 | Gastroenterology Progress Note ---
Date of Service April 10, 2021 Assessment & Plan (1) Abdominal pain: Plan: Possibly related to viral self-limiting GI illness vs gastroparesis vs other. Patient has had multiple ultrasounds, CT scans, abdominal xrays, labs, & EGD as an inpatient. -Given her reports of suboptimally controlled blood sugars at home, would advise that if her symptoms continue post-discharge, consider outpatient gastric emptying study to rule out gastroparesis. Could consider empirically placing her on a low fat, low fiber diet with 6 small meals daily. Could also undergo an outpatient colonoscopy as well. -Continue Protonix 40 mg BID. -Diet as tolerated. Admission and Anticipated Discharge Date Admission Date: April 03, 2021 Supervising Physician Co-Signing Physician Notes Agree with AUDRA Rankin as above Abd: Soft, NT, ND, +BS Continue current therapy and supportive care Biopsies from EGD pending. Subjective Patient is a 60 yo female with abdominal pain. She underwent an EGD yesterday which noted mild gastritis but no GI pathology to explain her symptoms. She had a repeat CT scan last night that was entirely unremarkable from GI perspective. She reports her RUQ pain is less sharp, but still persists. She notes her mother had similar symptoms for 1-2 weeks recently after having a viral GI illness. Review of Systems Respiratory: no cough and no dyspnea Gastrointestinal: + abdominal pain Physical Exam Constitutional: well developed Respiratory: normal respiratory effort Cardiovascular: Rate/Rhythm: regular rate Gastrointestinal (Abdomen): Inspection/Auscultation: abdomen normal to inspection Percussion/Palpation: + abdomen tender (RUQ) and abdomen soft Psychiatric: Orientation: alert and oriented x 3 Results & Data Results & Data ([facility]) Vital Signs (Past 12 Hours) Vital Signs Temp Pulse Pulse Resp BP BP Pulse Ox 04/10/21 06:17 36.5 C 56 L 20 138/76 98 04/10/21 04:57 59 L 160/65 H 04/10/21 01:05 157/75 H 04/09/21 22:37 55 L 158/89 H PG Care Time/CCT Total # of Minutes Spent Total Time Spent with Patient: Total time spent is greater than 50% in coordination of care (as documented) at patient's floor/unit and/or counseling patient: Coding Level of Care Code 91969 Subseq Hosp Care Lvl 3 Diagnoses Abdominal pain R10.9
[2021-04-10] MEDS ORDERED: LACTULOSE SYRUP 20 GM/30 ML UDC PO ONE (11:45)
[2021-04-10] MEDS: LIDOCAINE 5% 1 PATCH TD SCH (12:58)
--- NOTE | 2021-04-10 19:14 | Hospitalist Progress Note ---
Date of Service April 10, 2021 Assessment & Plan (1) Abdominal pain: Plan: ETIOLOGY?? despite supportive care for 5+ days, PPI/[id number]/carafate, etc she has continued with epigastric & right sided abdominal pain. initially thought to have viral GE earlier this stay based on her admission CT findings. Biofire respiratory panel and biofire stool panel both fully negative. RUQ u/s negative for biliary tract pathology. lipase/LFTs wnl. KUB x-ray - mild constipation. Despite Rx of the constipation/resolution of such - only minimal improvement in symptoms. s/p EGD by Dr Glover - mild gastritis only; this does not explain her pain. Given the ongoing pain obtained CT abd/pelvis including CTAs- no vascular or solid organ pathology. She is now on regular diet and tolerating such without GI symptoms. BUT...still having right flank/right lower back/right abdominal pain. etiology? consider MRCP. consider lumbar spine imaging. watch overnight. (2) Gastroenteritis: Plan: suspected at time of admission - but unlikely to be the etiology of her symptoms. Fecal occult blood negative. BioFire Stool PCR negative. RUQ u/s negative. CT abd/pelvis - ileus vs GE. KUB x-ray - mild-moderate constipation. EGD - gastritis only. BioFire resp panel also negative including COVID-19 testing. see #1 above. (3) Acute hypokalemia: Plan: replaced/resolved (4) Hypomagnesemia: Plan: replaced/resolved repeat level am (5) CAD (coronary artery disease): Plan: CAD/hypertension/NSTEMI/LAD stent- Continue aspirin, metoprolol tartrate and Brilinta Continue lisinopril Of note - patient reports her current symptoms are NOT similar to past cardiac symptoms (6) NSTEMI (non-ST elevated myocardial infarction): Plan: History of such. (7) S/P coronary artery stent placement: Plan: noted (8) OCD (obsessive compulsive disorder): Plan: OCD/anxiety- Continue clonazepam, fluvoxamine (9) Hypothyroidism: Plan: TSH within normal limits in October 2020 Continue levothyroxine (10) Hypertension: Plan: Cont home meds (11) Dyslipidemia: Plan: Cont atorvastatin LFTs wnl (12) Diabetes type 2, uncontrolled: Plan: Appreciate pharmacy consult for glycemic control and recs Control remains very good HbA1c 10.8 (improved from 15.8 in October 2020) Appreciate diabetic education (13) Tobacco abuse: Plan: Current tobacco user Cessation counseling Plan: left message for pt's brother on his voicemail earlier this week appreciate GI consultation see #1 above watch again overnight Admission and Anticipated Discharge Date Admission Date: April 03, 2021 Subjective saw patient twice today first visit - was this am - still c/o right sided abd pain with radiation to right flank/right back no BM in 5+ days able to eat this am, however, without any nausea/emesis gave lactulose x 1 --- had 4-5 large BMs with such saw patient late in the day following the bowel movements - abdominal pain only a "little better" still w/ right flank/back pain pain 6/10 ate dinner - again without GI symptoms or worsening of her abd pain no fevers Review of Systems Review of Systems: gen - still tired, appetite ok today cv - no chest pain pulm - no dyspnea GI - no blood per rectum Physical Exam Physical Exam: gen - NAD, she looks good today despite her complaints mouth - MMM heart - RRR, s1 s2, no murmur lungs - CTA b/l abd - mildly tender epigastric region and right side of abdomen once again - unchanged; BS+; ND; mildly distended musculo - lumbar spine region - tender paraspinal regions on right to palpation; very sensitive to touch in this region skin - no rash or shingles lesions of right flank region or abdomen ext - no edema, pulses 2+ b/l psych - a/o x 3 Results & Data Results & Data ([facility]) Vital Signs (Past 12 Hours) Vital Signs Temp Pulse Resp BP Pulse Ox 04/10/21 16:00 36.7 C 64 18 164/84 H 96 Laboratory Results Laboratory Results - last 24 hr 04/09/21 04/09/21 04/10/21 20:36 21:34 01:04 WBC RBC Hgb Hct MCV MCH MCHC RDW Std Deviation RDW Coeff of Umair Plt Count MPV Immature Gran % (Auto) Neut % (Auto) Lymph % (Auto) [place] % (Auto) Eos % (Auto) Baso % (Auto) Neut # (Auto) Lymph # (Auto) [place] # (Auto) Eos # (Auto) Baso # (Auto) Immature Gran # (Auto) Sodium Potassium Chloride Carbon Dioxide Anion Gap BUN Creatinine Est Cr Clr Drug Dosing Est GFR ( Amer) Est GFR (Non-Af Amer) BUN/Creatinine Ratio Glucose POC Glucose 158 H 172 H 113 H Calcium 04/10/21 04/10/21 04/10/21 05:00 07:39 07:39 WBC 7.80 RBC 4.69 Hgb 13.0 Hct 39.7 MCV 84.6 MCH 27.7 MCHC 32.7 RDW Std Deviation 44.8 RDW Coeff of Umair 14.7 H Plt Count 252 MPV 10.1 Immature Gran % (Auto) 0.1 Neut % (Auto) 72.6 Lymph % (Auto) 17.8 [place] % (Auto) 4.9 Eos % (Auto) 4.5 Baso % (Auto) 0.1 Neut # (Auto) 5.66 Lymph # (Auto) 1.39 [place] # (Auto) 0.38 Eos # (Auto) 0.35 Baso # (Auto) 0.01 Immature Gran # (Auto) 0.01 Sodium 137 Potassium 4.1 Chloride 103 Carbon Dioxide 29 Anion Gap 5 BUN 7 Creatinine 0.79 Est Cr Clr Drug Dosing 76.8 Est GFR ( Amer) 93.6 Est GFR (Non-Af Amer) 80.8 BUN/Creatinine Ratio 8.9 L Glucose 129 H POC Glucose 102 H Calcium 8.7 04/10/21 04/10/21 04/10/21 07:54 12:09 17:18 WBC RBC Hgb Hct MCV MCH MCHC RDW Std Deviation RDW Coeff of Umair Plt Count MPV Immature Gran % (Auto) Neut % (Auto) Lymph % (Auto) [place] % (Auto) Eos % (Auto) Baso % (Auto) Neut # (Auto) Lymph # (Auto) [place] # (Auto) Eos # (Auto) Baso # (Auto) Immature Gran # (Auto) Sodium Potassium Chloride Carbon Dioxide Anion Gap BUN Creatinine Est Cr Clr Drug Dosing Est GFR ( Amer) Est GFR (Non-Af Amer) BUN/Creatinine Ratio Glucose POC Glucose 136 H 141 H 185 H Calcium Diagnostic Findings Chest CTA 04/09/21 20:10 CT angio chest dissec wo/w con, CT angio abdomen pelvis w con HISTORY: 60 years-old Female abd pain, back pain, ?dissection, acute chest and abdominal pain. COMPARISON: CT abdomen and pelvis 04/03/2021, CTA chest 11/21/2016. TECHNIQUE: CTA of the chest, abdomen and pelvis was obtained following the intravenous administration of 120 mL Optiray 320. Noncontrast chest CT was also obtained. Oral contrast was also used. 3-D coronal and sagittal MIPS were obtained from the axial data set and were submitted for review. All measurements were obtained according to NASCET criteria. A dose lowering technique was used consistent with the principals of LEXIE. FINDINGS: CTA CHEST, ABDOMEN AND PELVIS: The noncontrast scan demonstrates no intramural or mediastinal hematoma. Mild atherosclerosis of the thoracic aorta without aneurysm or dissection. Moderate coronary artery calcifications with stents noted within the left anterior descending artery. There is patency of the imaged great vessels. Unremarkable pulmonary artery. No pulmonary emboli are identified. Mild atherosclerosis of the abdominal aorta without aneurysm or dissection. The iliac and imaged femoral arteries appear unremarkable and are patent. Widely patent celiac trunk, superior and inferior mesenteric arteries. There is mild atherosclerotic plaque at the origin of the right renal artery resulting in mild stenosis. Duplicated left renal arteries appear patent. No aneurysm, dissection, high-grade stenosis or arterial occlusion. CT CHEST, ABDOMEN AND PELVIS: No thyroid nodule. Mild paratracheal and subcarinal adenopathy with lymph nodes measuring up to 1.2 cm within the subcarinal distribution, mildly increased in size from comparison. There are a few prominent subcentimeter bilateral hilar chain lymph nodes. There is no pneumothorax or pleural effusion. Bilateral groundglass densities with mild intralobular and bronchial wall thickening. There are no suspicious pulmonary nodules or masses identified. Mild bibasilar mucous plugging. Unremarkable soft tissues. No acute fracture. Degenerative changes are noted within the shoulders and spine. No pneumatosis or pneumoperitoneum. Hepatic steatosis with mild hepatomegaly. Cholecystectomy. Unremarkable spleen. Moderately atrophic pancreas. Unremarkable adrenal glands. There are a few subcentimeter hypodensities of the left kidney which are too small to characterize and suggest probable cysts. Unremarkable urinary bladder. 2.2 cm calcified lesion involving the right aspect of the uterus is suggestive of a probable fibroid. No adnexal mass lesion. No ad enopathy. No bowel obstruction or bowel wall thickening. There is mild fecal retention. Colonic diverticulosis without acute diverticulitis. Normal appendix. No ascites or mesenteric inflammation. 1.4 cm mid anterior abdominal wall hernia contains fat with trace fluid. Mild stranding of the anterior wall subcutaneous tissues is suggestive of medicinal injection sites. Degenerative changes of the spine, pelvis and hips. No acute fracture identified. IMPRESSION: 1. Unremarkable CTA of the chest, abdomen and pelvis. There is mild atherosclerosis without aneurysm, dissection, high-grade stenosis or arterial occlusion. 2. Cardiomegaly with bilateral atelectasis and questioned mild pulmonary edema. 3. No bowel obstruction or bowel wall thickening. 4. Colonic diverticulosis. 5. Fibroid uterus. 6. Additional findings as above. ACT 112: Negative or not required by law. The above report was generated using voice recognition software. It may contain grammatical, syntax or spelling errors. Dictated: 04/10/2021 8:03 AM Transcribed: 04/10/2021 8:28 AM Mariel [id number] [email or web address]_Jane Electronically signed by: Willard Cooper M.D. 04/10/2021 8:30 AM Abdomen/Pelvis CTA 04/09/21 20:29 CT angio chest dissec wo/w con, CT angio abdomen pelvis w con HISTORY: 60 years-old Female abd pain, back pain, ?dissection, acute chest and abdominal pain. COMPARISON: CT abdomen and pelvis 04/03/2021, CTA chest 11/21/2016. TECHNIQUE: CTA of the chest, abdomen and pelvis was obtained following the intravenous administration of 120 mL Optiray 320. Noncontrast chest CT was also obtained. Oral contrast was also used. 3-D coronal and sagittal MIPS were obtained from the axial data set and were submitted for review. All measurements were obtained according to NASCET criteria. A dose lowering technique was used consistent with the principals of LEXIE. FINDINGS: CTA CHEST, ABDOMEN AND PELVIS: The noncontrast scan demonstrates no intramural or mediastinal hematoma. Mild atherosclerosis of the thoracic aorta without aneurysm or dissection. Moderate coronary artery calcifications with stents noted within the left anterior descending artery. There is patency of the imaged great vessels. Unremarkable pulmonary artery. No pulmonary emboli are identified. Mild atherosclerosis of the abdominal aorta without aneurysm or dissection. The iliac and imaged femoral arteries appear unremarkable and are patent. Widely patent celiac trunk, superior and inferior mesenteric arteries. There is mild atherosclerotic plaque at the origin of the right renal artery resulting in mild stenosis. Duplicated left renal arteries appear patent. No aneurysm, dissection, high-grade stenosis or arterial occlusion. CT CHEST, ABDOMEN AND PELVIS: No thyroid nodule. Mild paratracheal and subcarinal adenopathy with lymph nodes measuring up to 1.2 cm within the subcarinal distribution, mildly increased in size from comparison. There are a few prominent subcentimeter bilateral hilar chain lymph nodes. There is no pneumothorax or pleural effusion. Bilateral groundglass densities with mild intralobular and bronchial wall thickening. There are no suspicious pulmonary nodules or masses identified. Mild bibasilar mucous plugging. Unremarkable soft tissues. No acute fracture. Degenerative changes are noted within the shoulders and spine. No pneumatosis or pneumoperitoneum. Hepatic steatosis with mild hepatomegaly. Cholecystectomy. Unremarkable spleen. Moderately atrophic pancreas. Unremarkable adrenal glands. There are a few subcentimeter hypodensities of the left kidney which are too small to characterize and suggest probable cysts. Unremarkable urinary bladder. 2.2 cm calcified lesion involving the right aspect of the uterus is suggestive of a probable fibroid. No adnexal mass lesion. No adenopathy. No bowel obstruction or bowel wall thickening. There is mild fecal retention. Colonic diverticulosis without acute diverticulitis. Normal appendix. No ascites or mesenteric inflammation. 1.4 cm mid anterior abdominal wall hernia contains fat with trace fluid. Mild stranding of the anterior wall subcutaneous tissues is suggestive of medicinal injection sites. Degenerative changes of the spine, pelvis and hips. No acute fracture identified. IMPRESSION: 1. Unremarkable CTA of the chest, abdomen and pelvis. There is mild atherosclerosis without aneurysm, dissection, high-grade stenosis or arterial occlusion. 2. Cardiomegaly with bilateral atelectasis and questioned mild pulmonary edema. 3. No bowel obstruction or bowel wall thickening. 4. Colonic diverticulosis. 5. Fibroid uterus. 6. Additional findings as above. ACT 112: Negative or not required by law. The above report was generated using voice recognition software. It may contain grammatical, syntax or spelling errors. Dictated: 04/10/2021 8:03 AM Transcribed: 04/10/2021 8:28 AM Mariel [id number] [email or web address]_Jane Electronically signed by: Willard Cooper M.D. 04/10/2021 8:30 AM PG Care Time/CCT Total # of Minutes Spent Total Time Spent with Patient: Total time spent is greater than 50% in coordination of care (as documented) at patient's floor/unit and/or counseling patient: Coding Level of Care Code 67485 Subseq Hosp Care Lvl 2 Diagnoses Abdominal pain R10.9 Gastroenteritis K52.9 Acute hypokalemia E87.6 Hypomagnesemia E83.42 CAD (coronary artery disease) I25.10 Associated angina: unspecified whether angina present Coronary Disease-Associated Artery/Lesion type: [place] artery [place] vs. transplanted heart: [place] heart NSTEMI (non-ST elevated myocardial infarction) I21.4 S/P coronary artery stent placement Z95.5 OCD (obsessive compulsive disorder) F42.9 Hypothyroidism E03.9 Hypertension I10 Dyslipidemia E78.5 Diabetes type 2, uncontrolled E11.65 Tobacco abuse Z72.0 (1) CAD (coronary artery disease) Associated angina: unspecified whether angina present Coronary Disease- Associated Artery/Lesion type: [place] artery [place] vs. transplanted heart: [place] heart Qualified Code(s): I25.10 - Atherosclerotic heart disease of [place] coronary artery without angina pectoris
[2021-04-10] MEDS: fluvoxaMINE MALEATE 50 MG TAB PO SCH (20:47)
[2021-04-10] MEDS: INSULIN GLARGINE SOLOSTAR 100 UNITS/ML 3 ML PEN SQ SCH (21:22)
[2021-04-11] MEDS: ACETAMINOPHEN 325 MG TAB PO PRN ×2 (03:21→08:10)
[2021-04-11] MEDS: KETOROLAC 30 MG/ML VIAL IV PRN (05:35)
[2021-04-11] MEDS: LEVOTHYROXINE SODIUM 88 MCG TABLET PO SCH (05:36)
[2021-04-11] MEDS ORDERED: INSULIN GLARGINE SOLOSTAR 100 UNITS/ML 3 ML PEN SQ ONE (08:30)
[2021-04-11] MEDS: SENNA 8.6 MG TAB PO SCH (08:38)
[2021-04-11] MEDS: lisinopril 40 MG TAB PO SCH (08:38)
[2021-04-11] MEDS: amLODIPine BESYLATE 5 MG TAB PO SCH (08:38)
[2021-04-11] MEDS: TICAGRELOR 90 MG TAB PO SCH ×2 (08:39→21:14)
[2021-04-11] MEDS: PANTOprazole 40 MG TAB PO SCH ×2 (08:39→21:11)
[2021-04-11] MEDS: MAGNESIUM OXIDE 400 MG TAB PO SCH ×2 (08:40→21:11)
[2021-04-11] MEDS: busPIRone 5 MG TAB PO SCH ×3 (08:40→21:10)
[2021-04-11] MEDS: METOPROLOL TARTRATE 25 MG TAB PO SCH ×2 (08:40→21:12)
[2021-04-11] MEDS: ASPIRIN 81 MG ECTAB PO SCH (08:41)
[2021-04-11] MEDS: ATORVASTATIN 40 MG TAB PO SCH (08:41)
[2021-04-11] MEDS: clonazePAM 0.5 MG TAB PO SCH (08:42)
[2021-04-11] MEDS: NYSTATIN POWDER 15GM BTL EXT SCH ×2 (08:43→21:10)
[2021-04-11] MEDS: NYSTATIN/TRIAMCIN CR 15 GM TUBE EXT SCH ×2 (08:43→21:12)
[2021-04-11] MEDS: LIDOCAINE 5% 1 PATCH TD SCH (08:43)
[2021-04-11 08:53] LABS: Basophils # (auto) 0.01 K/uL (0-0.2); Basophils % (auto) 0.1 %; Eosinophils # (auto) 0.31 K/uL (0-0.5); Eosinophils % (auto) 3.6 %; Hematocrit (blood only) 40.9 % (37-47); Hemoglobin 13.6 g/dL (12.0-16.0); Immature Granulocytes # (auto) 0.01 K/uL (0.00-0.02); Immature Granulocytes % (auto) 0.1 %; Lymphocytes # (auto) 1.54 K/uL (1.2-3.4); Lymphocytes % (auto) 17.7 %; Mean Corpuscular Hemoglobin 27.9 pg (25-34); Mean Corpuscular Hgb Conc 33.3 g/dL (32-36); Mean Platelet Volume 10.6 fL (7.4-10.4); Monocytes # (auto) 0.35 K/uL (0.11-0.59); Neutrophils # (auto) 6.46 K/uL (1.4-6.5); Neutrophils % (auto) 74.5 %; Platelet Count 283 K/uL (130-400); RDW Coefficient of Variation 14.6 % (11.5-14.5); RDW Standard Deviation 44.5 fL (36.4-46.3); Red Blood Count 4.87 M/uL (4.2-5.4); White Blood Count 8.68 K/uL (4.8-10.8)
[2021-04-11] MEDS: INSULIN ASPART PER UNIT SC SCH ×4 (08:54→21:10)
[2021-04-11 09:16] LABS: BUN Creatinine Ratio 12.4 (10-20); Calcium 8.3 mg/dl (8.5-10.1); Creatinine Clr Calc Pharmacy 62.6 ml/min; Est GFR (African American) 73.1 ml/min; Magnesium 1.5 mg/dl (1.7-2.4); Potassium 3.9 mmol/L (3.5-5.1)
[2021-04-11] MEDS: ONDANSETRON INJ 2 MG/ML 2 ML VIAL IV PRN (10:21)
[2021-04-11] MEDS: POLYETHYLENE (MIRALAX) 17 GM PACK PO SCH (10:25)
[2021-04-11] MEDS: MAGNESIUM SULFATE / D5W 1 GM/100 ML BAG IV SCH ×2 (11:10→12:36)
--- NOTE | 2021-04-11 12:12 | Hospitalist Progress Note ---
Date of Service April 11, 2021 Assessment & Plan (1) Abdominal pain: Plan: ETIOLOGY still elusive. initially thought to have viral GE earlier this stay based on her admission CT findings. Biofire respiratory panel and biofire stool panel both fully negative. RUQ u/s negative for biliary tract pathology. lipase/LFTs wnl. KUB x-ray - mild constipation. Despite Rx of the constipation/resolution of such - only minimal improvement in symptoms. s/p EGD by Dr Glover - mild gastritis only; this does not explain her pain. Given the ongoing pain obtained CT abd/pelvis including CTAs- no vascular or solid organ pathology. Still with right flank/right lower back/right abdominal pain. etiology? will obtain MRCP - r/o CBD stone, etc. if negative - consider thoracic & lumbar spine imaging. in light of headache consider CT or MRI imaging. (2) Gastroenteritis: Plan: suspected at time of admission - but unlikely to be the etiology of her symptoms. Fecal occult blood negative. BioFire Stool PCR negative. RUQ u/s negative. CT abd/pelvis - ileus vs GE. KUB x-ray - mild-moderate constipation. EGD - gastritis only. BioFire resp panel also negative including COVID-19 testing. see #1 above. (3) Acute hypokalemia: Plan: replaced/resolved (4) Hypomagnesemia: Plan: replaced/resolved, now has returned likely due to copious stools yesterday mag sulfate IV again today then repeat level am (5) CAD (coronary artery disease): Plan: CAD/hypertension/NSTEMI/LAD stent- Continue aspirin, metoprolol tartrate and Brilinta Continue lisinopril Of note - patient reports her current symptoms are NOT similar to past cardiac symptoms will check troponin in am to be on safe side, however (6) NSTEMI (non-ST elevated myocardial infarction): Plan: History of such. (7) S/P coronary artery stent placement: Plan: noted (8) OCD (obsessive compulsive disorder): Plan: OCD/anxiety- Continue clonazepam, fluvoxamine (9) Hypothyroidism: Plan: TSH within normal limits in October 2020 Continue levothyroxine (10) Hypertension: Plan: Cont home meds (11) Dyslipidemia: Plan: Cont atorvastatin LFTs wnl (12) Diabetes type 2, uncontrolled: Plan: Appreciate pharmacy consult for glycemic control and recs Control remains very good HbA1c 10.8 (improved from 15.8 in October 2020) Appreciate diabetic education (13) Tobacco abuse: Plan: Current tobacco user Cessation counseling (14) Headache: Plan: chronic headaches, QOD at home - due to undiagnosed/untreated KEMI? other? sed rate is high at 61 - I believe the sed rate is related to #1 rather than the headaches, but need to keep TA in mind acute headache - toradol prn if any worsening then head imaging Plan: left message for pt's brother on his voicemail earlier this week also spoke with the pt's brother today by phone and gave update continue w/u for her issues above Admission and Anticipated Discharge Date Admission Date: April 03, 2021 Subjective despite numerous BMs yesterday her right-sided abdominal pain - w/ minimal radiation to epigastric region - continues lots of burping/belching/nausea still having occasional dry heaves symptoms worst in the am now having headache - she gets chronic headaches about QOD at home, but current headache is worse than normal she denies phonophobia/photophobia; typically doesn't get nausea w/ headaches at home pain still radiates into R flank and R paraspinal region of the thoracic region she is having hard time eating because of sx's above spending most time in the bed Review of Systems Review of Systems: gen - no fevers or chills cv - still no chest pain pulm - no cough/no dyspnea GI - numerous stools yesterday after lactulose - no dysuria Physical Exam Physical Exam: gen - looks uncomfortable; holding an ice pack on her head due to headache mouth - MMM heart - RRR, s1 s2, no murmur lungs - 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; pain worst RUQ; BS+; ND; mildly distended musculo - lumbar spine region - tender paraspinal regions on right to palpation especially lower thoracic spine segment/upper lumbar segment; very sensitive to touch in this region skin - still no rash or shingles lesions of right flank region or abdomen ext - no edema, pulses 2+ b/l psych - a/o x 3 Results & Data Results & Data ([facility]) Vital Signs (Past 12 Hours) Vital Signs Temp Pulse Pulse Resp BP Pulse Ox 04/11/21 07:57 36.9 C 72 17 171/89 H 96 04/11/21 04:03 77 164/89 H Laboratory Results Laboratory Results - last 24 hr 04/10/21 04/10/21 04/10/21 12:09 17:18 20:20 WBC RBC Hgb Hct MCV MCH MCHC RDW Std Deviation RDW Coeff of Umair Plt Count MPV Immature Gran % (Auto) Neut % (Auto) Lymph % (Auto) [place] % (Auto) Eos % (Auto) Baso % (Auto) Neut # (Auto) Lymph # (Auto) [place] # (Auto) Eos # (Auto) Baso # (Auto) Immature Gran # (Auto) ESR Sodium Potassium Chloride Carbon Dioxide Anion Gap BUN Creatinine Est Cr Clr Drug Dosing Est GFR ( Amer) Est GFR (Non-Af Amer) BUN/Creatinine Ratio Glucose POC Glucose 141 H 185 H 199 H Calcium Magnesium 04/11/21 04/11/21 04/11/21 03:11 08:03 08:22 WBC 8.68 RBC 4.87 Hgb 13.6 Hct 40.9 MCV 84.0 MCH 27.9 MCHC 33.3 RDW Std Deviation 44.5 RDW Coeff of Umair 14.6 H Plt Count 283 MPV 10.6 H Immature Gran % (Auto) 0.1 Neut % (Auto) 74.5 Lymph % (Auto) 17.7 [place] % (Auto) 4.0 Eos % (Auto) 3.6 Baso % (Auto) 0.1 Neut # (Auto) 6.46 Lymph # (Auto) 1.54 [place] # (Auto) 0.35 Eos # (Auto) 0.31 Baso # (Auto) 0.01 Immature Gran # (Auto) 0.01 ESR Sodium Potassium Chloride Carbon Dioxide Anion Gap BUN Creatinine Est Cr Clr Drug Dosing Est GFR ( Amer) Est GFR (Non-Af Amer) BUN/Creatinine Ratio Glucose POC Glucose 215 H 281 H Calcium Magnesium 04/11/21 04/11/21 08:22 08:22 WBC RBC Hgb Hct MCV MCH MCHC RDW Std Deviation RDW Coeff of Umair Plt Count MPV Immature Gran % (Auto) Neut % (Auto) Lymph % (Auto) [place] % (Auto) Eos % (Auto) Baso % (Auto) Neut # (Auto) Lymph # (Auto) [place] # (Auto) Eos # (Auto) Baso # (Auto) Immature Gran # (Auto) ESR 61 H Sodium 134 L Potassium 3.9 Chloride 100 Carbon Dioxide 26 Anion Gap 8 BUN 12 Creatinine 0.97 Est Cr Clr Drug Dosing 62.6 Est GFR ( Amer) 73.1 Est GFR (Non-Af Amer) 63.0 BUN/Creatinine Ratio 12.4 Glucose 239 H POC Glucose Calcium 8.3 L Magnesium 1.5 L PG Care Time/CCT Total # of Minutes Spent Total Time Spent with Patient: Total time spent is greater than 50% in coordination of care (as documented) at patient's floor/unit and/or counseling patient: Coding Level of Care Code 72450 Subseq Hosp Care Lvl 3 Diagnoses Abdominal pain R10.9 Gastroenteritis K52.9 Acute hypokalemia E87.6 Hypomagnesemia E83.42 CAD (coronary artery disease) I25.10 Associated angina: unspecified whether angina present Coronary Disease-Associated Artery/Lesion type: [place] artery [place] vs. transplanted heart: [place] heart NSTEMI (non-ST elevated myocardial infarction) I21.4 S/P coronary artery stent placement Z95.5 OCD (obsessive compulsive disorder) F42.9 Hypothyroidism E03.9 Hypertension I10 Dyslipidemia E78.5 Diabetes type 2, uncontrolled E11.65 Tobacco abuse Z72.0 Headache R51.9 (1) CAD (coronary artery disease) Associated angina: unspecified whether angina present Coronary Disease- Associated Artery/Lesion type: [place] artery [place] vs. transplanted heart: [place] heart Qualified Code(s): I25.10 - Atherosclerotic heart disease of [place] coronary artery without angina pectoris
--- NOTE | 2021-04-11 13:48 | Pharmacy Report ---
Pharmacy Glycemic Short Note 2 - Date of Service April 11, 2021 - Glycemic Short BSG Results (Last 24 hours): 04/10/21 04/10/21 04/11/21 17:18 20:20 03:11 Glucose POC Glucose 185 H 199 H 215 H 04/11/21 04/11/21 04/11/21 08:03 08:22 12:21 Glucose 239 H POC Glucose 281 H 257 H OUTPATIENT ANTIDIABETIC REGIMEN: * Dapagliflozin 10 mg PO daily * Lantus 50 units SQ HS * Humalog 20 units TID with meals * HbA1c: 10.8% (04/04/21) ASSESSMENT: 04/11/21 * As predicted, BSGs have begun to trend up given reduced insulin doses over past couple of days * Allowing some permissive hyperglycemia in light of patient's anxiety regarding hypoglycemia * Will plan to continue current Novolog parameters, but increase basal today 04/09/21 * Patient very anxious regarding current BSGs (97, 99 mg/dL) and concerned for hypoglycemia * Will loosen basal and bolus insulin today, will likely need to increase again as diet is advanced * NPO for EGD today 04/07/21 * BSGs elevated yesterday, ranging 189-207 mg/dL, fasting BSG of 196 mg/dL this morning * Received 105 units of insulin (60 units of basal and 45 units of prandial/correctional Novolog) * Will increase basal insulin today and tighten carb ratio 04/06/21 * Patient's BSGs yesterday were [phone] mg/dL. Fasting today is 207 mg/dL. * Patient received 77 units of insulin yesterday (50 units of basal and 27 units of bolus). * Fasting trending upwards plus previous data suggests patient requires more Lantus while inhouse. Will increase to Lantus 60 units * Continue Novolog. Baseline * 60 y/o F admitted with N/V, gastroenteritis, hypokalemia and hypomagnesemia. Patient with history of Type 2 diabetes managed on oral Dapagliflozin, basal and bolus insulin regimen at home. * Hold oral Dapagliflozin while admitted and continue on basal + bolus insulin for glycemic control. * However, serum potassium level has been low, 2.4 this AM then 2.[address] Fair, hold SQ insulin until K level is greater than 3.0. * When Novolog okay to resume, then plan to start using CF and CR based off of total daily home insulin dose of 110 units. PLAN FOR INPATIENT GLYCEMIC CONTROL: * Hold outpatient oral diabetes medications * Basal insulin - increase * Lantus 15 units SC x 1 this morning * Lantus 25-35 units SC HS (see EHR for details) * Bolus insulin - continue * NovoLog per scale ACHS or Q6hrs while NPO * Goal Range: Low 110 mg/dL - High 140 mg/dL * Correction Factor: 15 mg/dL/unit * Nutritional / Prandial insulin per carb ratio of 1 unit per 5 grams CHO consumed PLAN FOR DISCHARGE: * Please see Artificial Cherry Maker Note. * Recommend patient follow up with endocrinology regarding diabetes care and nutrition counseling.
[2021-04-11] MEDS ORDERED: LORazepam 0.5 MG TAB PO STA (15:40)
[2021-04-11] MEDS: INSULIN GLARGINE SOLOSTAR 100 UNITS/ML 3 ML PEN SQ SCH (21:09)
[2021-04-11] MEDS: fluvoxaMINE MALEATE 50 MG TAB PO SCH (21:11)
[2021-04-11] MEDS ORDERED: LORazepam 0.5 MG TAB ONE (22:50)
[2021-04-12] MEDS: ACETAMINOPHEN 325 MG TAB PO PRN ×3 (01:01→22:05)
[2021-04-12] MEDS: LEVOTHYROXINE SODIUM 88 MCG TABLET PO SCH (06:06)
[2021-04-12] MEDS: KETOROLAC 30 MG/ML VIAL IV PRN (06:10)
[2021-04-12] MEDS: clonazePAM 0.5 MG TAB PO SCH (08:33)
[2021-04-12] MEDS: NYSTATIN/TRIAMCIN CR 15 GM TUBE EXT SCH ×2 (08:34→20:15)
[2021-04-12] MEDS: LIDOCAINE 5% 1 PATCH TD SCH (08:34)
[2021-04-12] MEDS: POLYETHYLENE (MIRALAX) 17 GM PACK PO SCH (08:34)
[2021-04-12] MEDS: NYSTATIN POWDER 15GM BTL EXT SCH ×2 (08:34→20:15)
[2021-04-12] MEDS: MAGNESIUM OXIDE 400 MG TAB PO SCH ×2 (08:35→20:12)
[2021-04-12] MEDS: PANTOprazole 40 MG TAB PO SCH ×2 (08:35→20:11)
[2021-04-12] MEDS: METOPROLOL TARTRATE 25 MG TAB PO SCH ×2 (08:35→20:13)
[2021-04-12] MEDS: TICAGRELOR 90 MG TAB PO SCH ×2 (08:36→20:12)
[2021-04-12] MEDS: SENNA 8.6 MG TAB PO SCH (08:36)
[2021-04-12] MEDS: busPIRone 5 MG TAB PO SCH ×3 (08:36→20:14)
[2021-04-12] MEDS: amLODIPine BESYLATE 5 MG TAB PO SCH (08:36)
[2021-04-12] MEDS: ASPIRIN 81 MG ECTAB PO SCH (08:37)
[2021-04-12] MEDS: ATORVASTATIN 40 MG TAB PO SCH (08:37)
[2021-04-12] MEDS: lisinopril 40 MG TAB PO SCH (08:38)
[2021-04-12 08:52] LABS: Troponin I < 0.03 ng/ml (0-0.04)
--- NOTE | 2021-04-12 08:54 | Magnetic Resonance Report ---
MR MRCP HISTORY: refractory right upper quadrant pain; h/o lap albertina; CBD stone?? TECHNIQUE: MRCP the abdomen was performed without contrast according to standard departmental protoco l. COMPARISON STUDY: Abdomen and pelvis CT 04/09/2021 FINDINGS: The common bile duct is normal and course and caliber measuring 3 mm. No filling defects se en within the common bile duct. Prior cholecystectomy. No intrahepatic bile duct dilatation. The main pancreatic duct is not well visualized due to the motion artifact. However, the main pancreatic duct does not appear to be dilated. There are few small left renal cyst. Normal right kidney. The liver a nd spleen are unremarkable. Normal caliber abdominal aorta. No retroperitoneal lymphadenopathy. The p ancreas remains atrophic. Visualized loops of bowel show no wall thickening or obstruction. The main portal vein appears patent. IMPRESSION: 1. Normal caliber common bile duct measuring 3 mm. No evidence for choledocholithiasis. 2. Prior cholecystectomy. 3. Mild atrophic pancreas, unchanged. ACT 112: Negative or not required by law. Electronically signed by: Omid Pedroza M.D. 04/12/2021 8:53 AM
[2021-04-12 08:57] LABS: Alanine Aminotransferase 10 U/L (7-52); Albumin Globulin Ratio 1.1 (0.9-2); Albumin Level 3.2 gm/dl (3.4-5.0); Alkaline Phosphatase 120 U/L (34-104); Anion Gap 5 (3-11); Aspartate Aminotransferase 8 U/L (13-39); BUN Creatinine Ratio 17.2 (10-20); Bilirubin,Total 0.4 mg/dl (0.2-1.0); Blood Urea Nitrogen 17 mg/dl (6-23); Calcium 8.6 mg/dl (8.5-10.1); Carbon Dioxide 30 mmol/L (21-32); Chloride 101 mmol/L (98-107); Creatinine Clr Calc Pharmacy 61.3 ml/min; Est GFR (African American) 71.3 ml/min; Est GFR (Non-African American) 61.5 ml/min; Glucose 208 mg/dl (70-99(Fasting)); Magnesium 1.9 mg/dl (1.7-2.4); Potassium 3.8 mmol/L (3.5-5.1); Sodium 136 mmol/L (136-145); Total Protein 6.2 gm/dl (6.0-8.3)
[2021-04-12] MEDS: INSULIN ASPART PER UNIT SC SCH ×4 (09:05→21:25)
--- NOTE | 2021-04-12 12:44 | Hospitalist Progress Note ---
Date of Service April 12, 2021 Assessment & Plan (1) Abdominal pain: Plan: IMPROVING -- but exact ETIOLOGY still elusive. initially thought to have viral GE earlier this stay based on her admission CT findings. Biofire respiratory panel and Biofire stool panel both fully negative. RUQ u/s negative for biliary tract pathology. lipase/LFTs wnl. KUB x-ray - mild constipation. Despite Rx of the constipation/resolution of such - only minimal improvement in symptoms. s/p EGD by Dr Glover - mild gastritis only; this does not explain her pain. CT abd/pelvis including CTAs- no vascular or solid organ pathology. MRCP - no CBD stone or other acute findings. even if she has thoracic spine pathology (HNP, etc) -- this should not cause nausea, headache, abdominal bloating, etc. GI has mentioned gastroparesis as cause?? trial of reglan x 1 today. re-eval in am. of note - Troponin today negative; LFTs still remain WNL. (2) Gastroenteritis: Plan: suspected at time of admission - but unlikely to be the etiology of her symptoms given the timeline of #1 above. Fecal occult blood negative. BioFire Stool PCR negative. RUQ u/s negative. CT abd/pelvis - ileus vs GE. KUB x-ray - mild-moderate constipation. EGD - gastritis only. BioFire resp panel also negative including COVID-19 testing. MRCP negative. see #1 above. (3) Acute hypokalemia: Plan: replaced/resolved (4) Hypomagnesemia: Plan: replaced/resolved (5) CAD (coronary artery disease): Plan: CAD/hypertension/NSTEMI/LAD stent- Continue aspirin, metoprolol tartrate and Brilinta Continue lisinopril Of note - patient reports her current symptoms are NOT similar to past cardiac symptoms troponin checked today to be complete - negative (6) NSTEMI (non-ST elevated myocardial infarction): Plan: History of such. (7) S/P coronary artery stent placement: Plan: noted (8) OCD (obsessive compulsive disorder): Plan: OCD/anxiety- Continue clonazepam, fluvoxamine (9) Hypothyroidism: Plan: TSH within normal limits in October 2020 Continue levothyroxine (10) Hypertension: Plan: has been uncontrolled - 2nd pain?? added norvasc 5mg daily BPs still high -- increase to 10mg in the am tomorrow (11) Dyslipidemia: Plan: Cont atorvastatin LFTs wnl (12) Diabetes type 2, uncontrolled: Plan: Appreciate pharmacy consult for glycemic control and recs Control remains very good HbA1c 10.8 (improved from 15.8 in October 2020) Appreciate diabetic education (13) Tobacco abuse: Plan: Current tobacco user Cessation counseling (14) Headache: Plan: chronic headaches, QOD at home - due to undiagnosed/untreated KEMI? other? sed rate is high at 61 - I believe the sed rate is related to #1 rather than the headaches, but need to keep TA in mind acute headache - toradol prn if any worsening then head imaging (15) Thoracic spine pain: Plan: ordered MRI thoracic spine to rule out HNP with radiculopathy (as cause of back and right flank symptoms) patient declined this Plan: left message for pt's brother on his voicemail earlier this week also spoke with the pt's brother 04/11/21 watch overnight hopefully home tomorrow if pain is reasonably controlled, eating well, keeping all liquid/food down Admission and Anticipated Discharge Date Admission Date: April 03, 2021 Subjective patient ate a robust breakfast this am (100% per nursing flowsheets) eating lunch during my visit right-sided abd pain is a "little better" today but still having nausea still having right sided and mid thoracic back pain, worse with movement and activity no radicular symptoms down the right leg still having radiating pain from mid-thoracic region, spreading to the right flank/subcostal area, and onto the front of the abdomen under the ribs no left-sided abd pain now having diarrhea Review of Systems Review of Systems: gen - still having fatigue; mildly weak; is walking to bathroom and in room, however cv - no cp pulm - chronic dyspnea - unchanged from baseline GI - no vomiting of solids today - just nausea neuro - still having headache but not as severe Physical Exam Physical Exam: gen - best she has looked all week mouth - MMM heart - RRR, s1 s2, no murmur lungs - CTA b/l abd - soft, NT today (first time in several days), BS+, minimally distended musculo - t-spine - tender over mid-lower t-spine segments; mild t-spine paraspinal pain on right; no pain over l-spine or c-spine today to palpation ext - no edema, pulses 2+ b/l psych - a/o x 3 Results & Data Results & Data ([facility]) Vital Signs (Past 12 Hours) Vital Signs Temp Pulse Resp BP Pulse Ox 04/12/21 08:25 36.5 C 74 16 177/83 H 91 Laboratory Results Laboratory Results - last 24 hr 04/11/21 04/11/21 04/11/21 15:59 17:48 20:21 Sodium Potassium Chloride Carbon Dioxide Anion Gap BUN Creatinine Est Cr Clr Drug Dosing Est GFR ( Amer) Est GFR (Non-Af Amer) BUN/Creatinine Ratio Glucose POC Glucose 192 H 185 H 212 H Calcium Magnesium Total Bilirubin AST ALT Alkaline Phosphatase Troponin I Total Protein Albumin Globulin Albumin/Globulin Ratio 04/11/21 04/12/21 04/12/21 23:39 05:25 06:59 Sodium 136 Potassium 3.8 Chloride 101 Carbon Dioxide 30 Anion Gap 5 BUN 17 Creatinine 0.99 Est Cr Clr Drug Dosing 61.3 Est GFR ( Amer) 71.3 Est GFR (Non-Af Amer) 61.5 BUN/Creatinine Ratio 17.2 Glucose 208 H POC Glucose 170 H 195 H Calcium 8.6 Magnesium 1.9 Total Bilirubin 0.4 AST 8 L ALT 10 Alkaline Phosphatase 120 H Troponin I < 0.03 Total Protein 6.2 Albumin 3.2 L Globulin 3.0 Albumin/Globulin Ratio 1.1 04/12/21 04/12/21 07:59 12:09 Sodium Potassium Chloride Carbon Dioxide Anion Gap BUN Creatinine Est Cr Clr Drug Dosing Est GFR ( Amer) Est GFR (Non-Af Amer) BUN/Creatinine Ratio Glucose POC Glucose 206 H 245 H Calcium Magnesium Total Bilirubin AST ALT Alkaline Phosphatase Troponin I Total Protein Albumin Globulin Albumin/Globulin Ratio Diagnostic Findings MRCP - no CBD stones pancreatic atrophy PG Care Time/CCT Total # of Minutes Spent Total Time Spent with Patient: Total time spent is greater than 50% in coordination of care (as documented) at patient's floor/unit and/or counseling patient: Coding Level of Care Code 28024 Subseq Hosp Care Lvl 2 Diagnoses Abdominal pain R10.9 Gastroenteritis K52.9 Acute hypokalemia E87.6 Hypomagnesemia E83.42 CAD (coronary artery disease) I25.10 Associated angina: unspecified whether angina present Coronary Disease-Associated Artery/Lesion type: [place] artery [place] vs. transplanted heart: [place] heart NSTEMI (non-ST elevated myocardial infarction) I21.4 S/P coronary artery stent placement Z95.5 OCD (obsessive compulsive disorder) F42.9 Hypothyroidism E03.9 Hypertension I10 Dyslipidemia E78.5 Diabetes type 2, uncontrolled E11.65 Tobacco abuse Z72.0 Headache R51.9 Thoracic spine pain M54.6 (1) CAD (coronary artery disease) Associated angina: unspecified whether angina present Coronary Disease- Associated Artery/Lesion type: [place] artery [place] vs. transplanted heart: [place] heart Qualified Code(s): I25.10 - Atherosclerotic heart disease of [place] coronary artery without angina pectoris
[2021-04-12] MEDS ORDERED: METOCLOPRAMIDE HCL INJ 5 MG/ML 2 ML VIAL IV ONE (13:00)
[2021-04-12] MEDS ORDERED: LORazepam 0.5 MG TAB PO ONE (18:32)
[2021-04-12] MEDS: fluvoxaMINE MALEATE 50 MG TAB PO SCH (20:14)
[2021-04-12] MEDS: INSULIN GLARGINE SOLOSTAR 100 UNITS/ML 3 ML PEN SQ SCH (21:19)
[2021-04-13] MEDS: LEVOTHYROXINE SODIUM 88 MCG TABLET PO SCH (05:23)
[2021-04-13] MEDS: PANTOprazole 40 MG TAB PO SCH ×2 (08:18→21:28)
[2021-04-13] MEDS: ACETAMINOPHEN 325 MG TAB PO PRN ×2 (08:35→21:37)
[2021-04-13] MEDS: NYSTATIN/TRIAMCIN CR 15 GM TUBE EXT SCH ×2 (08:36→21:29)
[2021-04-13] MEDS: POLYETHYLENE (MIRALAX) 17 GM PACK PO SCH (08:36)
[2021-04-13] MEDS: TICAGRELOR 90 MG TAB PO SCH ×2 (08:36→21:28)
[2021-04-13] MEDS: NYSTATIN POWDER 15GM BTL EXT SCH ×2 (08:36→21:28)
[2021-04-13] MEDS: SENNA 8.6 MG TAB PO SCH (08:36)
[2021-04-13] MEDS: amLODIPine BESYLATE 5 MG TAB PO SCH (08:37)
[2021-04-13] MEDS: ASPIRIN 81 MG ECTAB PO SCH (08:37)
[2021-04-13] MEDS: METOPROLOL TARTRATE 25 MG TAB PO SCH ×2 (08:37→21:28)
[2021-04-13] MEDS: ATORVASTATIN 40 MG TAB PO SCH (08:37)
[2021-04-13] MEDS: MAGNESIUM OXIDE 400 MG TAB PO SCH ×2 (08:37→21:27)
[2021-04-13] MEDS: busPIRone 5 MG TAB PO SCH ×3 (08:37→21:27)
[2021-04-13] MEDS: LIDOCAINE 5% 1 PATCH TD SCH (08:37)
[2021-04-13] MEDS: lisinopril 40 MG TAB PO SCH (08:37)
[2021-04-13] MEDS: INSULIN ASPART PER UNIT SC SCH ×4 (08:49→23:28)
[2021-04-13] MEDS: clonazePAM 0.5 MG TAB PO SCH (08:49)
--- NOTE | 2021-04-13 08:59 | Pharmacy Report ---
Pharmacy Glycemic Short Note 2 - Date of Service April 13, 2021 - Glycemic Short BSG Results (Last 24 hours): 04/12/21 04/12/21 04/12/21 06:59 12:09 16:50 Glucose 208 H POC Glucose 245 H 191 H 04/12/21 04/13/21 04/13/21 20:41 01:31 03:30 Glucose POC Glucose 234 H 184 H 235 H 04/13/21 08:25 Glucose POC Glucose 218 H OUTPATIENT ANTIDIABETIC REGIMEN: * Dapagliflozin 10 mg PO daily * Lantus 50 units SQ HS * Humalog 20 units TID with meals * HbA1c: 10.8% (04/04/21) ASSESSMENT: 04/13: * BSGs significantly elevated yesterday: [phone] mg/dL * Received 113 units of insulin: 50 units basal + 63 units bolus * Fasting BSG continues to worsen - up to 218 mg/dL today * Allowing permissive hyperglycemia given patient's anxiety regarding hyperglycemia * Ideally, trying to keep BSGs below 180 mg/dL to improve overall health and well-being * Will increase Lantus this evening - more than home dose but given HbA1c, home dose is inadequate * Will tighten Novolog as well given poor postprandial control 04/11: * As predicted, BSGs have begun to trend up given reduced insulin doses over past couple of days * Allowing some permissive hyperglycemia in light of patient's anxiety regarding hypoglycemia * Will plan to continue current Novolog parameters, but increase basal today 04/09: * Patient very anxious regarding current BSGs (97, 99 mg/dL) and concerned for hypoglycemia * Will loosen basal and bolus insulin today, will likely need to increase again as diet is advanced * NPO for EGD today PLAN FOR INPATIENT GLYCEMIC CONTROL: * Hold outpatient oral diabetes medications * Basal insulin - increase * Lantus 50-60 units SQ HS (see EHR for details) * Bolus insulin - tighten * NovoLog per scale ACHS or Q6hrs while NPO * Goal Range: Low 110 mg/dL - High 140 mg/dL * Correction Factor: 12 mg/dL/unit * Nutritional / Prandial insulin per carb ratio of 1 unit per 3 grams CHO consumed PLAN FOR DISCHARGE: * Please see Medical Billing Instructor Note. * Recommend patient follow up with endocrinology regarding diabetes care and nutrition counseling.
[2021-04-13] MEDS ORDERED: METOCLOPRAMIDE HCL INJ 5 MG/ML 2 ML VIAL IV STA (11:27)
--- NOTE | 2021-04-13 11:30 | Hospitalist Progress Note ---
Date of Service April 13, 2021 Assessment & Plan (1) Abdominal pain: Plan: IMPROVING -- but exact ETIOLOGY still elusive. initially thought to have viral GE earlier this stay based on her admission CT findings. Biofire respiratory panel and Biofire stool panel both fully negative, however. RUQ u/s negative for biliary tract pathology. lipase/LFTs wnl. KUB x-ray - mild constipation. Despite Rx of the constipation/resolution of such - only minimal improvement in symptoms. s/p EGD by Dr Glover - mild gastritis only; this does not explain her pain. CT abd/pelvis including CTAs- no vascular or solid organ pathology. MRCP - no CBD stone or other acute findings. troponins negative; no evidence of ACS. even if she has thoracic spine pathology (HNP, etc) -- this should not cause nausea, headache, abdominal bloating, etc. GI has mentioned gastroparesis as cause. Pt's history/story changed a bit during the visit today - she initially said that her GI symptoms have not been present very long (weeks/months), but then she stated "ever since I had that sepsis I've had this". I reviewed her records - her sepsis was several years ago. trial of reglan yesterday and then again today seemed to help her GI symptoms. will schedule reglan 5mg TID with meals. will schedule an outpatient gastric emptying study (she will, of course, need to stop the reglan prior to the study). some interaction with fluvoxetine - will need to check with pharmacy on that interaction (at risk of serotonin syndrome?). re-eval in am. (2) Gastroenteritis: Plan: suspected at time of admission, but protracted symptoms over 10+ days, which would be highly unusual. Fecal occult blood negative. BioFire Stool PCR negative. RUQ u/s negative. CT abd/pelvis - ileus vs GE. KUB x-ray - mild-moderate constipation. EGD - gastritis only. BioFire resp panel also negative including COVID-19 testing. MRCP negative. see #1 above. will send giardia and rotavirus Ag tests as she reports ongoing diarrhea. (3) Acute hypokalemia: Plan: replaced/resolved (4) Hypomagnesemia: Plan: replaced/resolved (5) CAD (coronary artery disease): Plan: CAD/hypertension/NSTEMI/LAD stent- Continue aspirin, metoprolol tartrate and Brilinta Continue lisinopril Of note - patient reports her current symptoms are NOT similar to past cardiac symptoms troponin negative while here (6) NSTEMI (non-ST elevated myocardial infarction): Plan: History of such. 10/2020 cath at that time -- Coronary Anatomy Dominant: Right Left Main (% Stenosis): Normal LAD (% Stenosis): Proximal (99) and Mid (75) Circumflex (% Stenosis): Normal (luminal irregularities) RCA (% Stenosis): Normal (Luminal irregularities) s/p CHANTAL for the LAD lesion (7) S/P coronary artery stent placement: Plan: as above in #6 (8) OCD (obsessive compulsive disorder): Plan: OCD/anxiety- Continue clonazepam, fluvoxamine (9) Hypothyroidism: Plan: TSH within normal limits in October 2020 Continue levothyroxine (10) Hypertension: Plan: has been uncontrolled - 2nd pain?? added norvasc 5mg daily BPs still high -- consider increase to 10mg daily (11) Dyslipidemia: Plan: Cont atorvastatin LFTs wnl (12) Diabetes type 2, uncontrolled: Plan: Appreciate pharmacy consult for glycemic control and recs HbA1c 10.8% (improved from 15.8 in October 2020) Appreciate diabetic education I am suspicious she has diabetic gastroparesis - see #1 above (13) Tobacco abuse: Plan: Current tobacco user Cessation counseling (14) Headache: Plan: chronic headaches, QOD at home - due to undiagnosed/untreated KEMI? other? sed rate is high at 61 - I believe the sed rate is related to #1 rather than the headaches, but need to keep TA in mind acute headache - toradol prn since she still reported headaches today - obtained CT head - negative for pathology she has been reluctant to pursue MRI brain will set up with neurology post-discharge for this issue they can also arrange a sleep study (15) Thoracic spine pain: Plan: ordered MRI thoracic spine to rule out HNP with radiculopathy (as cause of back and right flank symptoms) patient declined this was worried about claustrophobia even with ativan elected to obtain CT t-spine today -- DJD seen; certainly could be having radicular pain from the t-spine contributing to her right flank pain Plan: left message for pt's brother on his voicemail earlier this week also spoke with the pt's brother 04/11/21 watch overnight hopefully home tomorrow if pain is reasonably controlled, eating well, keeping all liquid/food down need to have transportation issues worked out of note - gastric emptying study has been set up by [facility] neuro f/u also arranged Admission and Anticipated Discharge Date Admission Date: April 03, 2021 Subjective patient reports that she continues with mild right sided abdominal discomfort, loose stool, and dry heaves (latter was this am) back continues to hurt headaches - frontal - continue despite all of the above she is consuming 100% of her meals she does think that the reglan IV yesterday helped around lunch-time she continues with frequent burping/belching no deborah emesis despite the dry heaves yesterday she had asked for 1 additional day in the hospital today she asked again for an additional day she reports she lives in [facility] (45 min away) and plans to drive her mother's car home from the hospital I encouraged her to call her brother and have her brother & another person come so that she does not have to drive home alone (and someone can drive her vehicle home) Review of Systems Review of Systems: gen - no fevers, ongoing fatigue; but consuming all meals at this point cv - no chest pain pulm - no dyspnea at rest; no orthopnea; no cough GI - no left-sided pain; no blood per rectum; ongoing nausea usually starting about 20 min after eating - no urinary symptoms musculo - ongoing right-sided thoracic and paraspinal back pain Physical Exam Physical Exam: gen - NAD, looks good despite her complaints mouth - MMM heart - RRR, s1 s2, no murmur lungs - CTA b/l abd - soft, NT, minimal distension, BS+, no HSM musculo - t-spine - tender over mid-lower t-spine segments; mild t-spine paraspinal pain on right; no pain over l-spine ext - no edema, pulses 2+ b/l psych - a/o x 3 neuro - strength 5/5 x 4 exts Results & Data Results & Data ([facility]) Vital Signs (Past 12 Hours) Vital Signs Temp Pulse Resp BP Pulse Ox 04/13/21 07:41 36.6 C 68 18 165/71 H 94 Laboratory Results Laboratory Results - last 24 hr 04/12/21 04/12/21 04/12/21 12:09 16:50 20:41 POC Glucose 245 H 191 H 234 H 04/13/21 04/13/21 04/13/21 01:31 03:30 08:25 POC Glucose 184 H 235 H 218 H Diagnostic Findings Head CT 04/13/21 11:41 CT SCAN OF THE BRAIN WITHOUT IV CONTRAST CLINICAL HISTORY: Headaches and dizziness. COMPARISON STUDY: CT of the brain dated 01/08/2017. TECHNIQUE: Unenhanced axial CT scan of the brain is performed from the vertex to the skull base. A dose lowering technique was utilized adhering to the principles of ALARA. FINDINGS: Brain parenchyma: There is mild age-related involutional change. There is no hemorrhage, mass effect, or evidence of acute territorial ischemia by CT criteria. Rodríguez-white matter differentiation is preserved. No extra-axial fluid collection is seen. Ventricles, sulci, cisterns: Normal in configuration. Intracranial vasculature: There is atherosclerotic calcification of the cavernous carotid arteries. Calvarium: Unremarkable. Sinuses and mastoids: The visualized paranasal sinuses are clear. The mastoid air cells are well pneumatized. Orbits: The bony orbits are grossly intact. IMPRESSION: No acute intracranial abnormality. ACT 112: Negative or not required by law. Electronically signed by: Lalito Cisse M.D. 04/13/2021 12:[address] 04/13/21 11:41 CT OF THE THORACIC SPINE CLINICAL HISTORY: ?thoracic spine radiculopathy on right? COMPARISON STUDY: Chest CT April 09, 2021. TECHNIQUE: Helical axial images of the thoracic spine were obtained. Sagittal and coronal reconstructions were viewed. Automated exposure control was utilized for the study. A dose lowering technique was utilized adhering to the principles of ALARA. FINDINGS: Alignment of the thoracic spine is anatomic. Vertebral body heights are maintained. There is no acute fracture. There is no suspicious lesion within the thoracic spine by CT. There is mild multilevel disc space narrowing and osteophytosis. There is vacuum disc phenomenon at the T8-T9 level. There is mild multilevel disc space narrowing and osteophytosis. Multilevel facet arthrosis is present. Central canal and neural foramen are suboptimally assessed by CT but no definite central canal stenosis is present. IMPRESSION: 1. No acute thoracic spine fracture or subluxation. 2. Mild multilevel degenerative changes within the thoracic spine. ACT 112: Negative or not required by law. Electronically signed by: Nahun Odell M.D. 04/13/2021 1:05 PM PG Care Time/CCT Total # of Minutes Spent Total Time Spent with Patient: Total time spent is greater than 50% in coordination of care (as documented) at patient's floor/unit and/or counseling patient: Coding Level of Care Code 56334 Subseq Hosp Care Lvl 3 Diagnoses Abdominal pain R10.9 Gastroenteritis K52.9 Acute hypokalemia E87.6 Hypomagnesemia E83.42 CAD (coronary artery disease) I25.10 Associated angina: unspecified whether angina present Coronary Disease-Associated Artery/Lesion type: [place] artery [place] vs. transplanted heart: [place] heart NSTEMI (non-ST elevated myocardial infarction) I21.4 S/P coronary artery stent placement Z95.5 OCD (obsessive compulsive disorder) F42.9 Hypothyroidism E03.9 Hypertension I10 Dyslipidemia E78.5 Diabetes type 2, uncontrolled E11.65 Tobacco abuse Z72.0 Headache R51.9 Thoracic spine pain M54.6 (1) CAD (coronary artery disease) Associated angina: unspecified whether angina present Coronary Disease- Associated Artery/Lesion type: [place] artery [place] vs. transplanted heart: [place] heart Qualified Code(s): I25.10 - Atherosclerotic heart disease of [place] coronary artery without angina pectoris
--- NOTE | 2021-04-13 12:45 | CT Scan Report ---
CT SCAN OF THE BRAIN WITHOUT IV CONTRAST CLINICAL HISTORY: Headaches and dizziness. COMPARISON STUDY: CT of the brain dated 01/08/2017. TECHNIQUE: Unenhanced axial CT scan of the brain is performed from the vertex to the skull base. A d ose lowering technique was utilized adhering to the principles of ALARA. FINDINGS: Brain parenchyma: There is mild age-related involutional change. There is no hemorrhage, mass effect, or evidence of acute territorial ischemia by CT criteria. Rodríguez-white matter differentiation is prese rved. No extra-axial fluid collection is seen. Ventricles, sulci, cisterns: Normal in configuration. Intracranial vasculature: There is atherosclerotic calcification of the cavernous carotid arteries. Calvarium: Unremarkable. Sinuses and mastoids: The visualized paranasal sinuses are clear. The mastoid air cells are well pneu matized. Orbits: The bony orbits are grossly intact. IMPRESSION: No acute intracranial abnormality. ACT 112: Negative or not required by law. Electronically signed by: Lalito Cisse M.D. 04/13/2021 12:44 PM
--- NOTE | 2021-04-13 13:07 | CT Scan Report ---
CT OF THE THORACIC SPINE CLINICAL HISTORY: ?thoracic spine radiculopathy on right? COMPARISON STUDY: Chest CT April 09, 2021. TECHNIQUE: Helical axial images of the thoracic spine were obtained. Sagittal and coronal reconstru ctions were viewed. Automated exposure control was utilized for the study. A dose lowering techniqu e was utilized adhering to the principles of ALARA. FINDINGS: Alignment of the thoracic spine is anatomic. Vertebral body heights are maintained. There i s no acute fracture. There is no suspicious lesion within the thoracic spine by CT. There is mild mul tilevel disc space narrowing and osteophytosis. There is vacuum disc phenomenon at the T8-T9 level. T here is mild multilevel disc space narrowing and osteophytosis. Multilevel facet arthrosis is present . Central canal and neural foramen are suboptimally assessed by CT but no definite central canal sten osis is present. IMPRESSION: 1. No acute thoracic spine fracture or subluxation. 2. Mild multilevel degenerative changes within the thoracic spine. ACT 112: Negative or not required by law. Electronically signed by: Nahun Odell M.D. 04/13/2021 1:05 PM
[2021-04-13] MEDS: KETOROLAC 30 MG/ML VIAL IV PRN (18:35)
[2021-04-13] MEDS: fluvoxaMINE MALEATE 50 MG TAB PO SCH (21:27)
[2021-04-13] MEDS: INSULIN GLARGINE SOLOSTAR 100 UNITS/ML 3 ML PEN SQ SCH (23:21)
[2021-04-14] MEDS: KETOROLAC 30 MG/ML VIAL IV PRN ×2 (01:58→09:01)
[2021-04-14] MEDS: LEVOTHYROXINE SODIUM 88 MCG TABLET PO SCH (05:18)
[2021-04-14 07:36] LABS: Anion Gap 8 (3-11); BUN Creatinine Ratio 23.9 (10-20); Blood Urea Nitrogen 21 mg/dl (6-23); C Reactive Protein < 0.50 mg/dl (0-0.5); Calcium 8.4 mg/dl (8.5-10.1); Carbon Dioxide 25 mmol/L (21-32); Chloride 100 mmol/L (98-107); Est GFR (African American) 82.2 ml/min; Est GFR (Non-African American) 70.9 ml/min; Glucose 212 mg/dl (70-99(Fasting)); Potassium 4.4 mmol/L (3.5-5.1); Sodium 133 mmol/L (136-145)
[2021-04-14] MEDS: clonazePAM 0.5 MG TAB PO SCH (08:39)
[2021-04-14] MEDS: TICAGRELOR 90 MG TAB PO SCH (08:39)
[2021-04-14] MEDS: MAGNESIUM OXIDE 400 MG TAB PO SCH (08:40)
[2021-04-14] MEDS: amLODIPine BESYLATE 5 MG TAB PO SCH (08:40)
[2021-04-14] MEDS: SENNA 8.6 MG TAB PO SCH (08:40)
[2021-04-14] MEDS: PANTOprazole 40 MG TAB PO SCH (08:40)
[2021-04-14] MEDS: lisinopril 40 MG TAB PO SCH (08:40)
[2021-04-14] MEDS: ASPIRIN 81 MG ECTAB PO SCH (08:40)
[2021-04-14] MEDS: ATORVASTATIN 40 MG TAB PO SCH (08:40)
[2021-04-14] MEDS: METOPROLOL TARTRATE 25 MG TAB PO SCH (08:40)
[2021-04-14] MEDS: busPIRone 5 MG TAB PO SCH ×2 (08:41→13:21)
[2021-04-14] MEDS: POLYETHYLENE (MIRALAX) 17 GM PACK PO SCH (08:47)
[2021-04-14] MEDS: LIDOCAINE 5% 1 PATCH TD SCH (08:47)
[2021-04-14] MEDS: NYSTATIN POWDER 15GM BTL EXT SCH (08:47)
[2021-04-14] MEDS: NYSTATIN/TRIAMCIN CR 15 GM TUBE EXT SCH (08:47)
[2021-04-14] MEDS: INSULIN ASPART PER UNIT SC SCH ×2 (09:00→12:38)
[2021-04-14] MEDS: METOCLOPRAMIDE HCL 5 MG TABLET PO SCH ×2 (09:38→12:12)
[2021-04-14] MEDS: ACETAMINOPHEN 325 MG TAB PO PRN (12:15)
[2021-04-14] MEDS ORDERED: INSULIN HUMAN REGULAR PER UNIT 10 UNITS in SYRINGE 9.9 ML IV ONE (13:00)
--- NOTE | 2021-04-14 17:02 | Discharge Summary ---
Date of Service April 14, 2021 Admission HPI Per Admitting Provider The patient is a 60-year-old female with a past medical history including depression, OCD, psoriasis, drug-induced tremor, cervical mass, vulvitis, non- STEMI, LAD CHANTAL, CAD, obesity, hypothyroidism, hypertension, tobacco abuse, dyslipidemia and diabetes mellitus. She presents with symptoms as noted above, and does not include diarrhea, or associated with any particular food intake either at home or eating out. Significant laboratories: Potassium 2.7, magnesium 1.4, glucose 294. CT of abdomen and pelvis consistent with ileus versus gastroenteritis From the ED the patient received the following: Magnesium sulfate 2 g IV, potassium chloride 20 mEq IV, Toradol 15 mg IV x2 and potassium chloride 40 mEq p.o. x1 Principal Diagnosis Gastroenteritis Hypokalemia hypomagnesemia Possible gastroparesis from diabetes Acute on chronic low back pain Discharge Exam The patient appeared in mild distress from her back pain overall well Vital signs as documented. Neurologic exam is alert and oriented, no focal loss of strength or sensation Skin is without bruises or rashes Psychologically is without concerns for anxiety or depression. Discharge Data Allergies Allergy/AdvReac Type Severity Reaction Status Date / Time albiglutide [From Tanzeum] AdvReac Unknown Unknown Verified 04/09/21 14:59 dulaglutide [From Trulicity] AdvReac Unknown Unknown Verified 04/09/21 14:59 Consultations 04/03/21 22:01 ED Decision to Admit Stat 04/08/21 09:42 Consult Gastroenterology Routine Procedures Performed Operation Date: 04/09/21 16:30 Actual Procedures p EGD Biopsy Cytology - Randall Glover MD Ordered Studies 04/03/21 20:29 CT abd pelvis IV con only Stat 04/06/21 13:30 US liver Routine 04/09/21 20:10 CT angio chest dissec wo/w con Urgent 04/09/21 20:29 CT angio abdomen pelvis w con Urgent 04/11/21 12:11 MR MRCP Urgent 04/13/21 11:41 CT head/brain wo con Routine CT thoracic spine wo con Routine Hospital Course (1) Abdominal pain: IMPROVING -- but exact ETIOLOGY still elusive. initially thought to have viral GE earlier this stay based on her admission CT findings. [employer] respiratory panel and [employer] stool panel both fully negative, however. RUQ u/s negative for biliary tract pathology. lipase/LFTs wnl. KUB x-ray - mild constipation. Despite Rx of the constipation/resolution of such - only minimal improvement in symptoms. s/p EGD by Dr Glover - mild gastritis only; this does not explain her pain. CT abd/pelvis including CTAs- no vascular or solid organ pathology. MRCP - no CBD stone or other acute findings. troponins negative; no evidence of ACS. even if she has thoracic spine pathology (HNP, etc) -- this should not cause nausea, headache, abdominal bloating, etc. GI has mentioned gastroparesis as cause. Will be home on 1 week of Reglan before every meal and nightly cautiously with her psychiatric medications Consider close GI follow-up to l schedule an outpatient gastric emptying study (2) Gastroenteritis: suspected at time of admission, but protracted symptoms over 10+ days, which would be highly unusual. Fecal occult blood negative. [employer] Stool PCR negative. RUQ u/s negative. CT abd/pelvis - ileus vs GE. KUB x-ray - mild-moderate constipation. EGD - gastritis only. [employer] resp panel also negative including COVID-19 testing. MRCP negative. (3) Acute hypokalemia: replaced/resolved (4) Hypomagnesemia: replaced/resolved (5) CAD (coronary artery disease): CAD/hypertension/NSTEMI/LAD stent- Continue aspirin, metoprolol tartrate and Brilinta Continue lisinopril Of note - patient reports her current symptoms are NOT similar to past cardiac symptoms troponin negative while here (6) NSTEMI (non-ST elevated myocardial infarction): History of such. 10/2020 cath at that time -- Coronary Anatomy Dominant: Right Left Main (% Stenosis): Normal LAD (% Stenosis): Proximal (99) and Mid (75) Circumflex (% Stenosis): Normal (luminal irregularities) RCA (% Stenosis): Normal (Luminal irregularities) s/p CHANTAL for the LAD lesion (7) S/P coronary artery stent placement: as above in #6 (8) OCD (obsessive compulsive disorder): OCD/anxiety- Continue clonazepam, fluvoxamine (9) Hypothyroidism: TSH within normal limits in October 2020 Continue levothyroxine (10) Hypertension: Will continue home medications and have primary care decide if long-term additional antihypertensives are required (11) Dyslipidemia: Cont atorvastatin LFTs wnl (12) Diabetes type 2, uncontrolled: Appreciate pharmacy consult for glycemic control and recs HbA1c 10.8% (improved from 15.8 in October 2020) Appreciate diabetic education return home on her usual medications with hopes that the patient has dietary discretion to improve her A1c further I am suspicious she has diabetic gastroparesis - see #1 above (13) Tobacco abuse: Current tobacco user Cessation counseling (14) Headache: No improvement with steroids Brain imaging has been without pathology Discussed with primary care whether the patient should see neurology for further evaluation of headache or perhaps when Dr. Aguilar opens her headache clinic be referred to this physician (15) Thoracic spine pain: ordered MRI thoracic spine to rule out HNP with radiculopathy (as cause of back and right flank symptoms) patient declined this was worried about claustrophobia even with ativan Total Time Total Time Spent Total Time Spent (In Minutes): It required greater than 30 minutes to prepare this patient for discharge Discharge Plan Discharge Items Patient Disposition: Home - Home Health Services Reason For Visit: GSDTROENTERITIS, HYPOKALEMIA, HYPOMAGNESEMIA Discharge Diagnosis: Gastroenteritis low potassium and magnesium arthritic back pain Activity: Per Instructions section Activity Comment: see primary care about physical therapy referral for back Non-emergency contact: Primary Care Provider Call non-emergency contact if: your symptoms worsen and you have a fever Follow-up/Referrals: Omer Marroquin MD [Primary Care Provider] - Gleacio Noguera MD [Physician] - 04/20/21 11:00 am (With Karina Alarcon PA-C) Diet: Regular Addtl Attending Provider Instructions: Please see your primary care doctor to discuss you back and Gastrointestinal issues you will given an Rx for your stomach to take for one week then stop please eat healthy foods and get plenty of rest. Addtl [employer] Provider Instructions: You have been scheduled for a gastric emptying study with nuclear medicine on May 02 at 8:15am. Please arrive to the hospital main entrance at 7:45am. Prior to this study, the hospital will call you at home with specific instructions. If you need to make changes to this appointment, please call [phone] and ask for central scheduling. Pending Studies at Discharge: No Stand-Alone Forms: [employer], Smoking Cessation Medications and DC Order Prescriptions: New metoclopramide HCl 5 mg Tablet 5 mg PO AC Qty: 30 RF: 0 lidocaine 5 % Adhesive Patch,Medicated 3 patch transdermal QAM Qty: 10 RF: 0 ondansetron 4 mg Tablet,Disintegrating 4 mg PO Q6H PRN (Reason: nausea and vomiting) Qty: 20 RF: 0 celecoxib [Celebrex] 100 mg capsule 100 mg PO DAILY Qty: 10 RF: 0 Continued buspirone 10 mg tablet 10 mg PO TID Qty: 90 RF: 11 nystatin-triamcinolone 100,000-0.1 unit/gram-% ointment 1 applic topical ONCE Qty: 15 RF: 1 Brilinta 90 mg tablet 90 mg PO BID 90 Days Qty: 180 RF: 3 clonazepam [Klonopin] 0.5 mg tablet 0.5 mg PO QAM Qty: 30 RF: 0 Lantus Solostar U-100 Insulin 100 unit/mL (3 mL) insulin pen 50 unit subcut HS RF: 0 insulin lispro [Humalog KwikPen Insulin] 100 unit/mL insulin pen 20 unit subcut TID Qty: 15 RF: 3 nystatin 100,000 unit/gram powder 1 applic topical BID Qty: 60 RF: 3 atorvastatin 80 mg tablet 80 mg PO QAM RF: 0 levothyroxine 88 mcg tablet 88 mcg PO QAM RF: 0 fluvoxamine 50 mg tablet 50 mg PO HS RF: 0 aspirin 81 mg tablet,delayed release (DR/EC) 81 mg PO QAM RF: 0 Farxiga 10 mg tablet 10 mg PO QAM RF: 0 lisinopril 40 mg tablet 40 mg PO QAM 30 Days Qty: 30 RF: 0 metoprolol tartrate 25 mg tablet 25 mg PO BID 30 Days Qty: 180 RF: 1 Discharge Orders: Discharge Order (Routine); Ordered 04/14/21 Ordered By: Remy Richardson/Other Patient Handouts: Nutrition Facts Labels and Diabetes, Diabetes and Heart Disease, Long-Term Complications of Diabetes, High Blood Sugar (Hyperglycemia), Resources for People with Diabetes, Types of Insulin, Diabetes: The Benefits of Exercise, Diabetes: Exams and Tests, Diabetes: Meal Planning, Smoking and Diabetes Admission Data Admit Date/Time: 04/03/21 23:01 Attending Provider: Remy Samson Admit Provider: Laurent Gaytan Primary Care Provider: Omer Marroquin Other Providers: Laurent Gaytan ; Randall Glover Other Interventions: Discharge Summary Assessment (RN) Last Done: 04/14/21 13:38 Coding Level of Care Code D/C DAY MANAGEMENT >30 MINS Diagnoses Abdominal pain R10.9 Gastroenteritis K52.9 Acute hypokalemia E87.6 Hypomagnesemia E83.42 CAD (coronary artery disease) I25.10 Coronary Disease-Associated Artery/Lesion type: [place] artery [place] vs. transplanted heart: [place] heart Associated angina: unspecified whether angina present NSTEMI (non-ST elevated myocardial infarction) I21.4 S/P coronary artery stent placement Z95.5 OCD (obsessive compulsive disorder) F42.9 Hypothyroidism E03.9 Hypertension I10 Dyslipidemia E78.5 Diabetes type 2, uncontrolled E11.65 Tobacco abuse Z72.0 Headache R51.9 Thoracic spine pain M54.6
[2021-04-14] MEDS ORDERED: INSULIN GLARGINE SOLOSTAR 100 UNITS/ML 3 ML PEN SQ SCH (21:00)
== END 2021-04-14 17:49 | disposition home or self-care (01) | DRG 74 ==
LOC: ED 18:39 → SUATTDRO 23:01 → 3E 23:01

== ENCOUNTER 2021-05-21 20:01 | Inpatient (IN) ==
[2021-05-21] MEDS ORDERED: SODIUM CHLORIDE 0.9% 500 ML IV STA (20:35)
--- NOTE | 2021-05-21 20:59 | XRay Report ---
SINGLE VIEW CHEST CLINICAL HISTORY: Generalized abdominal pain FINDINGS: An AP, portable, upright chest radiograph is compared to study dated 04/08/2021 and correlat ed with chest CT dated 04/09/2021. The heart is mildly enlarged. The pulmonary vasculature is nonconge sted. Atelectasis is noted at the lung bases. The lungs and pleural spaces are otherwise clear. No pn eumothorax is seen. The skeletal structures are osteopenic. The bony thorax is grossly intact. IMPRESSION: Mild cardiomegaly with no active disease in the chest. ACT 112: Negative or not required by law. Electronically signed by: Lalito Cisse M.D. 05/21/2021 8:57 PM
--- NOTE | 2021-05-21 21:01 | Emergency Department Note ---
Impression & Plan Right upper quadrant abdominal pain, Abnormal EKG, Hypokalemia, Acute hyperglycemia ED Provider Note NAME: ELIAN SORENSEN AGE: 60 SEX: F : 1960 ARRIVES VIA: Walk-In INFORMANT: Patient, ED PROVIDER(S): King Amin DO CHIEF COMPLAINT: Abdominal pain HPI: The patient is a 60-year-old female who has a history of diabetes as well as hypertension who presented to the emergency department for evaluation of upper abdominal pain. The patient describes epigastric and right upper quadrant abdominal pain which has begun a few months ago. The patient states that she was seen in our facility at that time she was admitted. She had a complete work-up which included an evaluation by a insulation nozzleman. The patient s tates that no specific cause for her symptoms could be found. The patient has not seen her family doctor recently. She presented to the emergency department this evening because of ongoing symptoms. The patient states her symptoms are mildly improved at this time. She does note that the symptoms worsen with eating. She states when she tries to eat she feels though she may vomit. The patient states she notices no swelling in her legs. She notices no back pain at this time. She denies having any chest pain or difficulty breathing. She states her pain is moderate at this time. She also notices nausea. ROS: See above HPI for pertinent positives & negatives. A total of 10 systems reviewed and were otherwise negative. PAST MEDICAL HISTORY: See Below PAST SURGICAL HISTORY: See Below FAMILY HISTORY: See Below SOCIAL HISTORY: See Below HOME MEDICATIONS: See Below ALLERGIES: See Below VITALS: See Below PHYSICAL EXAMINATION: GENERAL: Patient is awake alert in no acute distress patient is resting comfortably and showing no signs of anxiety EYES: The conjunctivae are clear. The pupils are round and reactive. EARS, NOSE, MOUTH AND THROAT: The nose is without any evidence of any deformity. NECK: The neck is nontender and supple. RESPIRATORY: Normal respiratory effort is noted there is no evidence of wheezing rhonchi or rales CARDIOVASCULAR: Regular rate and rhythm noted there no murmurs rubs or gallops normal S1 normal S2. GASTROINTESTINAL: The abdomen is distended. There is no specific guarding or tenderness noted to palpation. MUSCULOSKELETAL/EXTREMITIES: There is no evidence of gross deformity full range of motion is noted in the hips and shoulders. SKIN: There is no obvious evidence of any rash. There are no petechiae, pallor or cyanosis noted. NEUROLOGIC: Patient is awake alert and oriented x3 MEDICAL DECISION MAKING: The patient is a 60-year-old female who presented to the emergency department for evaluation of right upper quadrant abdominal pain. The patient does have a history of diabetes. Further laboratory and radiographic studies were obtained. The patient does not have an acute surgical abdomen on physical exam. I did review the patient's previous records. She was seen in our facility recently for similar complaints and had a complete GI work-up. The patient was found to have abnormalities on her EKG which could be related to ischemia. Given her history of diabetes further studies were obtained. Her troponin was negative. The patient was found to have hypokalemia as well as hyperglycemia. She was treated with potassium replacement. She was also treated with IV fluids to try to manage the hyperglycemia. Insulin was avoided given the patient's hypokalemi a. I discussed the patient's condition with the on-call [facility] hospitalist. They have agreed to evaluate the patient in the emergency department for further management and disposition. Triage Nursing notes reviewed. Prior medical records reviewed Vital Signs: reviewed and remarkable for elevated blood pressure. Differential diagnosis: Etiologies such as appendicitis, diverticulitis, obstruction, inflammatory bowel disease, renal colic, PUD, biliary pathology, pancreatitis, mesenteric ischemia, aortic pathology, infections, genitourinary, UTI, perforated viscus, as well as others were entertained. ER treatment provided: See below Diagnostics interpreted by me: ECG: EKG was obtained in the emergency department. My interpretation is normal sinus rhythm at 77 bpm. There is no ectopy. Inferior and lateral ST depressions were noted. This was compared to a tracing from November 202020. The ST segment abnormalities appear worsened compared to the earlier tracing. Cardiac Monitoring: An order was placed for continuous cardiac monitoring. The monitor shows a rate of 68 beats per minute with sinus rhythm. Laboratory studies: As stated above and show below. Imaging studies: See below Consultation(s): I discussed this case with Dr. Kraus. Past Med/Surg History Medical History Anxiety CAD (coronary artery disease) No remaining occlusive disease after 2 LAD drug eluting stents 10/22/20. Follows with Dr. Steven Chronic headaches Depression Diabetes type 2, uncontrolled IDDM Dyslipidemia Hypertension Hypothyroidism NSTEMI (non-ST elevated myocardial infarction) 10/22/2020 s/p 2 CHANTAL Obesity Osteoarthritis Renal insufficiency Tobacco abuse Surgical History History of cardiac catheterization 10/22/2020 Dominant: Right Left Main (% Stenosis): Normal LAD (% Stenosis): Proximal (99) and Mid (75) Circumflex (% Stenosis): Normal (luminal irregularities) RCA (% Stenosis): Normal (Luminal irregularities) 2 CHANTAL to LAD History of cholecystectomy History of dental surgery History of tonsillectomy S/P coronary artery stent placement 2 CHANTAL to LAD 10/22/2020 Family History Unknown Diabetes Thyroid disorder Father Diabetes Other No family history of adverse response to anesthesia Denies family history of Ovarian cancer Prostate cancer Breast cancer Colorectal cancer Uterine cancer Social History Smoking Status: Current every day smoker Tobacco Type: Cigarettes packs per day: 0.5; Cigarettes Per Day: 10; Second Hand Exposure: No; Hx Alcohol Use: No Hx Substance Use: No Preferred Language: Nepali Communication Ability: Effective Therapeutic Recreation Assistant Required: No Beliefs That Will Affect Care: None marital status: Single Current Living Situation: Alone Feels Safe at Home: Yes Safety Concerns Comment: Gets nervous sometimes because she lives alone, gets shaky from anxiety caffeine: Yes Dental Care, Regularly: No Physical Activity Frequency: Does not Exercise Seatbelt Use: always Sunscreen Use: No Assistive Devices: Glasses Allergies Allergies Allergy/AdvReac Type Severity Reaction Status Date / Time albiglutide [From Tanzeum] AdvReac Unknown Unknown Verified 05/21/21 22:02 dulaglutide [From Trulicity] AdvReac Unknown Unknown Verified 05/21/21 22:02 Home Meds Home Medications Medication Instructions Recorded Confirmed aspirin 81 mg tablet,delayed 81 mg PO QAM 10/16/20 05/21/21 release dapagliflozin 10 mg tablet 10 mg PO QAM 10/22/20 05/21/21 (Farxiga) insulin glargine 100 unit/mL (3 30 unit SUBCUT HS milliliter 12/14/20 05/21/21 mL) subcutaneous pen (Lantus Solostar U-100 Insulin) atorvastatin 80 mg tablet 80 mg PO QAM 03/15/21 05/21/21 fluvoxamine 50 mg tablet 50 mg PO HS 03/15/21 05/21/21 levothyroxine 88 mcg tablet 88 mcg PO QAM 03/15/21 05/21/21 Previous Rx's Medication Instructions Recorded buspirone 10 mg tablet 10 mg PO TID #90 tab 10/24/20 lisinopril 40 mg tablet 40 mg PO QAM 30 Days #30 tab 10/25/20 nystatin-triamcinolone 100,000 1 applic TOPICAL ONCE #15 g 11/10/20 unit/gram-0.1 % topical ointment ticagrelor 90 mg tablet (Brilinta) 90 mg PO BID 90 Days #180 tab 11/21/20 insulin lispro 100 unit/mL 20 unit SUBCUT TID #15 ml 03/14/21 subcutaneous pen (Humalog KwikPen (U-100) Insulin) nystatin 100,000 unit/gram topical 1 applic TOPICAL BID #60 g 03/14/21 powder celecoxib 100 mg capsule (Celebrex) 100 mg PO DAILY #10 cap 04/14/21 lidocaine 5 % topical patch 3 patch TRANSDERMAL QAM #10 ea 04/14/21 metoclopramide HCl 5 mg tablet 5 mg PO AC #30 tab 04/14/21 ondansetron 4 mg disintegrating 4 mg PO Q6H PRN #20 tab 04/14/21 tablet clonazepam 0.5 mg tablet (Klonopin) 0.5 mg PO QAM #30 tab 05/03/21 metoprolol tartrate 25 mg tablet 25 mg PO BID 30 Days #180 tab 05/17/21 Results & Data (ED) Vital Signs Vital Signs - 24 hr 05/21/21 20:11 05/21/21 21:27 05/21/21 23:05 Temperature 36.5 C Temperature Source Oral Pulse Rate 84 Pulse Rate [Finger] 75 68 Respiratory Rate 20 20 18 Respiratory Effort / Characteristics Non-Labored Spontaneous Non-Labored Non-Labored Spontaneous Respiratory Depth Normal Normal Normal Respiratory Pattern Regular Blood Pressure 160/83 H Blood Pressure [Left Arm] 148/89 H 145/77 H Blood Pressure Mean 108 Blood Pressure Mean [Left Arm] 108 99 Blood Pressure Position Sitting Pulse Oximetry 97 95 99 Oxygen Delivery Method Room Air Room Air Room Air Sepsis Recent Fever Within 48 Hours No Sepsis New/Unexplained Change in Mental Status N/A Sepsis Action Taken by Nursing No Action Required Home Medications Current Medication List: was personally reviewed by me Laboratory Data Attestation: I reviewed the patient's lab results. Result diagrams: 05/21/21 20:56 05/21/21 20:56 Lab Results 05/21/21 05/21/21 05/21/21 Range/Units 20:56 20:56 20:56 WBC 11.86 H (4.8-10.8) K/uL RBC 4.97 (4.2-5.4) M/uL Hgb 14.2 (12.0-16.0) g/dL Hct 41.1 (37-47) % MCV 82.7 (80-100) fL MCH 28.6 (25-34) pg MCHC 34.5 (32-36) g/dL RDW Std Deviation 42.4 (36.4-46.3) fL RDW Coeff of Umair 14.2 (11.5-14.5) % Plt Count 295 (130-400) K/uL MPV 10.3 (7.4-10.4) fL Immature Gran % (Auto) 0.3 % Neut % (Auto) 76.1 % Lymph % (Auto) 17.7 % [place] % (Auto) 4.9 % Eos % (Auto) 0.9 % Baso % (Auto) 0.1 % Neut # (Auto) 9.02 H (1.4-6.5) K/uL Lymph # (Auto) 2.10 (1.2-3.4) K/uL [place] # (Auto) 0.58 (0.11-0.59) K/uL Eos # (Auto) 0.11 (0-0.5) K/uL Baso # (Auto) 0.01 (0-0.2) K/uL Immature Gran # (Auto) 0.04 H (0.00-0.02) K/uL PT 10.3 (9.0-12.0) Seconds INR 1.0 (0.9-1.1) APTT 21.7 (21.0-31.0) Seconds PTT Ratio 0.8 Sodium 136 (136-145) mmol/L Potassium 2.4 L* (3.5-5.1) mmol/L Chloride 95 L (98-107) mmol/L Carbon Dioxide 28 (21-32) mmol/L Anion Gap 13 H (3-11) BUN 7 (6-23) mg/dl Creatinine 0.90 (0.6-1.2) mg/dl Est Cr Clr Drug Dosing 69.6 ml/min Est GFR ( Amer) 80.0 ml/min Est GFR (Non-Af Amer) 69.0 ml/min BUN/Creatinine Ratio 7.8 L (10-20) Glucose 386 H* (70-99(Fasting)) mg/dl Calcium 8.4 L (8.5-10.1) mg/dl Total Bilirubin 0.4 (0.2-1.0) mg/dl AST 13 (13-39) U/L ALT 16 (7-52) U/L Alkaline Phosphatase 157 H (34-104) U/L Troponin I < 0.03 (0-0.04) ng/ml Total Protein 6.9 (6.0-8.3) gm/dl Albumin 3.5 (3.4-5.0) gm/dl Globulin 3.4 (2.5-4.0) gm/dl Albumin/Globulin Ratio 1.0 (0.9-2) Lipase 10 L (11-82) U/L Urine Color Urine Appearance (Clear) Urine pH (4.5-7.5) Ur Specific Brandt (1.000-1.030) Urine Protein (Negative) Urine Glucose (UA) (Negative) Urine Ketones (Negative) Urine Blood (Negative) Urine Nitrite (Negative) Urine Bilirubin (Negative) Urine Urobilinogen (Negative) Ur Leukocyte Esterase (Negative) 05/21/21 Range/Units 21:02 WBC (4.8-10.8) K/uL RBC (4.2-5.4) M/uL Hgb (12.0-16.0) g/dL Hct (37-47) % MCV (80-100) fL MCH (25-34) pg MCHC (32-36) g/dL RDW Std Deviation (36.4-46.3) fL RDW Coeff of Umair (11.5-14.5) % Plt Count (130-400) K/uL MPV (7.4-10.4) fL Immature Gran % (Auto) % Neut % (Auto) % Lymph % (Auto) % [place] % (Auto) % Eos % (Auto) % Baso % (Auto) % Neut # (Auto) (1.4-6.5) K/uL Lymph # (Auto) (1.2-3.4) K/uL [place] # (Auto) (0.11-0.59) K/uL Eos # (Auto) (0-0.5) K/uL Baso # (Auto) (0-0.2) K/uL Immature Gran # (Auto) (0.00-0.02) K/uL PT (9.0-12.0) Seconds INR (0.9-1.1) APTT (21.0-31.0) Seconds PTT Ratio Sodium (136-145) mmol/L Potassium (3.5-5.1) mmol/L Chloride (98-107) mmol/L Carbon Dioxide (21-32) mmol/L Anion Gap (3-11) BUN (6-23) mg/dl Creatinine (0.6-1.2) mg/dl Est Cr Clr Drug Dosing ml/min Est GFR ( Amer) ml/min Est GFR (Non-Af Amer) ml/min BUN/Creatinine Ratio (10-20) Glucose (70-99(Fasting)) mg/dl Calcium (8.5-10.1) mg/dl Total Bilirubin (0.2-1.0) mg/dl AST (13-39) U/L ALT (7-52) U/L Alkaline Phosphatase (34-104) U/L Troponin I (0-0.04) ng/ml Total Protein (6.0-8.3) gm/dl Albumin (3.4-5.0) gm/dl Globulin (2.5-4.0) gm/dl Albumin/Globulin Ratio (0.9-2) Lipase (11-82) U/L Urine Color Yellow Urine Appearance Clear (Clear) Urine pH 5.5 (4.5-7.5) Ur Specific Brandt 1.037 H (1.000-1.030) Urine Protein Negative (Negative) Urine Glucose (UA) 3+ H (Negative) Urine Ketones Negative (Negative) Urine Blood Negative (Negative) Urine Nitrite Negative (Negative) Urine Bilirubin Negative (Negative) Urine Urobilinogen Negative (Negative) Ur Leukocyte Esterase Negative (Negative) Administered Medications Potassium Chloride (K Esa / Wtr) 10 meq in 100 mls @ 100 mls/hr IV ONE ONE; Protocol Stop: 05/21/21 22:53 Last Admin: 05/21/21 22:34 Dose: 100 mls/hr Documented by: [id number] Sodium Chloride (Nss 1000ml) 1,000 mls @ 999 mls/hr IV .Q1H1M ONE Stop: 05/21/21 22:54 Last Admin: 05/21/21 22:35 Dose: 999 mls/hr Documented by: [id number] Discontinued Medications Sodium Chloride (Nss) 500 mls @ 999 mls/hr IV .Q31M STA Stop: 05/21/21 21:05 Last Infusion: 05/21/21 21:53 Dose: 0 mls/hr Documented by: [id number] Admin: 05/21/21 21:03 Dose: 999 mls/hr Documented by: [id number] Potassium Chloride (Potassium Chloride Crtab 20 Meq Tabcr) 20 meq PO NOW STA Stop: 05/21/21 21:55 Last Admin: 05/21/21 22:34 Dose: 20 meq Documented by: [id number] Imaging Data Radiologist's Impression: Chest X-Ray 05/21/21 20:36 SINGLE VIEW CHEST CLINICAL HISTORY: Generalized abdominal pain FINDINGS: An AP, portable, upright chest radiograph is compared to study dated 04/08/2021 and correlated with chest CT dated 04/09/2021. The heart is mildly enlarged. The pulmonary vasculature is noncongested. Atelectasis is noted at the lung bases. The lungs and pleural spaces are otherwise clear. No pneumothorax is seen. The skeletal structures are osteopenic. The bony thorax is grossly intact. IMPRESSION: Mild cardiomegaly with no active disease in the chest. ACT 112: Negative or not required by law. Electronically signed by: Lalito Cisse M.D. 05/21/2021 8:57 PM KUB X-Ray 05/21/21 20:36 KUB CLINICAL HISTORY: Right upper quadrant abdominal pain. FINDINGS: 3 AP supine abdominal radiographs are correlated with abdominal CT dated 04/09/2021. Cholecystectomy clips are noted in the right upper quadrant. There is a nonobstructed abdominal bowel gas pattern. No evidence of intraperitoneal free air is seen on these supine images. There are no abnormal abdominal calcifications. Calcified fibroids are noted in the pelvis. The skeletal structures are osteopenic and appear intact. IMPRESSION: No acute abnormality is identified. Electronically signed by: Lalito Cisse M.D. 05/21/2021 9:00 PM Discharge Plan Visit Data Chief Complaint: Abdominal Pain Stated Complaint: NAUSEA, RLQ ABDOMINAL PAIN ED Provider: King Amin Discharge Problem: Right upper quadrant abdominal pain, Abnormal EKG, Hypokalemia, Acute hyperglycemia Patient Disposition: Being Evaluated by Hospitalist Forms Stand Alone Forms: My [facility] Prescriptions Prescriptions: No Action buspirone 10 mg tablet 10 mg PO TID Qty: 90 RF: 11 nystatin-triamcinolone 100,000-0.1 unit/gram-% ointment 1 applic topical ONCE Qty: 15 RF: 1 Brilinta 90 mg tablet 90 mg PO BID 90 Days Qty: 180 RF: 3 clonazepam [Klonopin] 0.5 mg tablet 0.5 mg PO QAM Qty: 30 RF: 0 metoprolol tartrate 25 mg tablet 25 mg PO BID 30 Days Qty: 180 RF: 1 Lantus Solostar U-100 Insulin 100 unit/mL (3 mL) insulin pen 30 unit subcut HS RF: 0 insulin lispro [Humalog KwikPen Insulin] 100 unit/mL insulin pen 20 unit subcut TID Qty: 15 RF: 3 nystatin 100,000 unit/gram powder 1 applic topical BID Qty: 60 RF: 3 atorvastatin 80 mg tablet 80 mg PO QAM RF: 0 levothyroxine 88 mcg tablet 88 mcg PO QAM RF: 0 fluvoxamine 50 mg tablet 50 mg PO HS RF: 0 metoclopramide HCl 5 mg Tablet 5 mg PO AC Qty: 30 RF: 0 lidocaine 5 % Adhesive Patch,Medicated 3 patch transdermal QAM Qty: 10 RF: 0 ondansetron 4 mg Tablet,Disintegrating 4 mg PO Q6H PRN (Reason: nausea and vomiting) Qty: 20 RF: 0 celecoxib [Celebrex] 100 mg capsule 100 mg PO DAILY Qty: 10 RF: 0 aspirin 81 mg tablet,delayed release (DR/EC) 81 mg PO QAM RF: 0 Farxiga 10 mg tablet 10 mg PO QAM RF: 0 lisinopril 40 mg tablet 40 mg PO QAM 30 Days Qty: 30 RF: 0 Referrals Referrals: Omer Marroquin MD [Primary Care Provider] -
--- NOTE | 2021-05-21 21:03 | XRay Report ---
KUB CLINICAL HISTORY: Right upper quadrant abdominal pain. FINDINGS: 3 AP supine abdominal radiographs are correlated with abdominal CT dated 04/09/2021. Cholecy stectomy clips are noted in the right upper quadrant. There is a nonobstructed abdominal bowel gas pa ttern. No evidence of intraperitoneal free air is seen on these supine images. There are no abnormal abdominal calcifications. Calcified fibroids are noted in the pelvis. The skeletal structures are ost eopenic and appear intact. IMPRESSION: No acute abnormality is identified. Electronically signed by: Lalito Cisse M.D. 05/21/2021 9:00 PM
[2021-05-21 21:28] LABS: Partial Thromboplastin Ratio 0.8; Partial Thromboplastin Time 21.7 Seconds (21.0-31.0); Prothrombin Time 10.3 Seconds (9.0-12.0)
[2021-05-21 21:48] LABS: Troponin I < 0.03 ng/ml (0-0.04)
[2021-05-21 21:54] LABS: Alanine Aminotransferase 16 U/L (7-52); Albumin Level 3.5 gm/dl (3.4-5.0); Alkaline Phosphatase 157 U/L (34-104); Anion Gap 13 (3-11); Aspartate Aminotransferase 13 U/L (13-39); BUN Creatinine Ratio 7.8 (10-20); Bilirubin,Total 0.4 mg/dl (0.2-1.0); Blood Urea Nitrogen 7 mg/dl (6-23); Calcium 8.4 mg/dl (8.5-10.1); Carbon Dioxide 28 mmol/L (21-32); Chloride 95 mmol/L (98-107); Creatinine Clr Calc Pharmacy 69.6 ml/min; Globulin 3.4 gm/dl (2.5-4.0); Glucose 386 mg/dl (70-99(Fasting)); Lipase 10 U/L (11-82); Potassium 2.4 mmol/L (3.5-5.1); Sodium 136 mmol/L (136-145); Total Protein 6.9 gm/dl (6.0-8.3)
[2021-05-21] MEDS ORDERED: SODIUM CHLORIDE 0.9% 1000ML 1,000 ML IV ONE (21:54)
[2021-05-21] MEDS ORDERED: POTASSIUM CHLORIDE / WTR 10 MEQ/100 ML PLCT IV ONE (21:54)
[2021-05-21] MEDS ORDERED: POTASSIUM CHLORIDE CRTAB 20 MEQ TABCR PO STA (21:54)
[2021-05-21 22:05] LABS: Basophils # (auto) 0.01 K/uL (0-0.2); Basophils % (auto) 0.1 %; Eosinophils # (auto) 0.11 K/uL (0-0.5); Eosinophils % (auto) 0.9 %; Hematocrit (blood only) 41.1 % (37-47); Hemoglobin 14.2 g/dL (12.0-16.0); Immature Granulocytes # (auto) 0.04 K/uL (0.00-0.02); Immature Granulocytes % (auto) 0.3 %; Lymphocytes % (auto) 17.7 %; Mean Corpuscular Hemoglobin 28.6 pg (25-34); Mean Corpuscular Hgb Conc 34.5 g/dL (32-36); Mean Corpuscular Volume 82.7 fL (80-100); Mean Platelet Volume 10.3 fL (7.4-10.4); Monocytes # (auto) 0.58 K/uL (0.11-0.59); Monocytes % (auto) 4.9 %; Neutrophils # (auto) 9.02 K/uL (1.4-6.5); Neutrophils % (auto) 76.1 %; Platelet Count 295 K/uL (130-400); RDW Coefficient of Variation 14.2 % (11.5-14.5); RDW Standard Deviation 42.4 fL (36.4-46.3); Red Blood Count 4.97 M/uL (4.2-5.4); White Blood Count 11.86 K/uL (4.8-10.8)
[2021-05-21 22:46] LABS: Appearance Urine Clear (Clear); Bilirubin Urine Negative (Negative); Blood Urine Negative (Negative); Color Urine Yellow; Glucose Urine UA 3+ (Negative); Ketones Urine Negative (Negative); Leukocyte Esterase Urine Negative (Negative); Nitrite Urine Negative (Negative); Protein Urine Negative (Negative); Specific Gravity Urine 1.037 (1.000-1.030); Urobilinogen Urine Negative (Negative); pH Urine 5.5 (4.5-7.5)
[2021-05-21] MEDS ORDERED: POTASSIUM CHLORIDE 20 MEQ/15 ML UDC PO STA (23:55)
--- NOTE | 2021-05-22 00:05 | History & Physical Report ---
Date of Service May 21, 2021 Assessment & Plan (1) Right upper quadrant abdominal pain: Plan: 60yo female presenting with recurrent RUQ abdominal pain. Extensive workup inpatient [address] to include CT Abdomen, CTA Abdomen/Pelvis, MRCP, EGD, GI consultation. No obvious source of discomfort elucidated. Thought possibly secondary to gastroenteritis, gastroparesis, less likely gastritis. Patient now endorses occasional post-prandial regurgitation and nausea - could be secondary to gastroparesis. She has longstanding history of DM-II with variable control - AIC ranging from 6.5 to >16.9 over the last 5 years. She was trialed on Reglan on discharge as well as Zofran PRN. Gastric emptying study ordered - I am unable to find the results? She does have some bruising over her RUQ - states that she gives her diabetic injections there. No appreciable hematoma or collection on palpation. -Check RUQUS -Continue Reglan qAC -Pepcid 40mg daily - monitor symptoms -Carafate QID - monitor symptoms (2) Hypomagnesemia: Plan: Mg=1.3 -Repletion with 6gm IV - ordered -Repeat Mg level in AM (3) Hypokalemia: Plan: K=2.4. EKG findings are concerning for hypokalemia. Patient denies chest pain. Troponin is NEGATIVE x 1 -Mg repletion as above - best to start Mg repletion prior to K repletion to assist with K transport into cells -KCl - 30Meq given in ER -Will give additional 80mEq. Patient with difficulty swallowing - will attempt liquid form -Repeat BMP upon arrival to floor -BMP and Mg in AM then as needed to ensure proper repletion (4) Depression: Plan: Chronic -Continue Buspirone TID -Continue Clonazepam (5) CAD (coronary artery disease): Plan: s/p NSTEMI 10/2020 s/p CHANTAL placement to LAD. Patient on DAPT with ASA and Brillinta. -Continue ASA -Continue Brillinta -Continue Metoprolol, Lisinopril, Atorvastatin (6) Hypothyroidism: Plan: Chronic. Stable by normal TSH October 2020 -Continue Synthroid 88mcg daily (7) Hypertension: Plan: Blood pressure mildly elevated today at 145/77 -Continue metoprolol 25mg po BID -Continue Lisinopril 40mg po qAM -Continue to monitor (8) Dyslipidemia: Plan: Chronic -Continue Atorvastatin 80mg po daily (9) Diabetes type 2, uncontrolled: Plan: Improved control - last [id number]=56.8 on 04/04/21 (down from 15.8 in October 2020). Elevated blood sugar presently at 386 which is probably fairly near baseline value given her most recent AIC. Patient was seen by Diabetes Education team during last admission. -Hold Farxiga while inpatient -Lantus 15u BID -ISS -Goal blood sugar 100 - 140 -Ideally replete K prior to administering large doses of insulin Plan: F/E/N - Electrolyte repletion with Mg and K as above, repeat BMP on floor and with AM labs, CC/AHA diet as tolerated Ppx - SCDs Code - Full per discussion with patient Dispo -Admit to medical with telemetry Smoking cessation counseling ordered History of Present Illness Chief Complaint: RUQ pain Primary Care Provider: Omer Marroquin MD Yolanda Lua is a pleasant 60yo female with histoyr of CAD, DM, HTN, HLP presenting with RUQ pain. Patient was hospitalized with similar complaint 04/03/21 - 04/14/21. During that hospitalization she had an extensive workup to include GI consultation, she had an EGD performed on 04/09/21 which revealed gastritis which was biopsied and normal esophagus, duodenal bulb and second portion of the duodenum. Biopsies showed chronic gastritis with focal mild activity. H. Pylori staining was NEGATIVE. She had a CT of the Abdomen/Pelvis which was initially suggestive of ileus vs gastroenteritis. Liver US was unremarkable. CTA of the Chest/Abdomen/Pelvis was unremarkable. MRCP with normal caliber CBD at 3mm. No choledocholithiasis. CT of the thoracic spine NEGATIVE as well. Her abdominal pain was improving on discharge. No formal diagnosis reached, however, thought possibly secondary to gastroparesis. She was sent home with Reglan to be taken prior to meals and Zofran PRN. She had a Gastric Emptying Study set up for 05/02/21. Uncertain if this study has been completed. Patient states that she has been having difficulty eating. She is able to chew and swallow without difficulty or pain but then feels that the food wants to come right back up. This typically happens with bread. Not as much with liquid or vegetables. She has constant nausea and aching pain in her RUQ. Denies fever/chills/chest pain/cough/SOB/diarrhea. Denies globus sensation/sinusitis. She does have a chronic cough but is a current smoker. No additional complaints at this time. In the ER workup revealed hypokalemia with K=2.4, associated EKG changes. Glucose of 386 ER Course: NSS, KCl 30mEq Allergies Allergy/AdvReac Type Severity Reaction Status Date / Time albiglutide [From [facility]] AdvReac Unknown Unknown Verified 05/21/21 22:02 [facility] AdvReac Unknown Unknown Verified 05/21/21 22:02 Home Medications Medication Instructions Recorded Confirmed Type aspirin 81 mg tablet,delayed 81 mg PO QAM 10/16/20 05/21/21 History release dapagliflozin 10 mg tablet 10 mg PO QAM 10/22/20 05/21/21 History ([facility]) buspirone 10 mg tablet 10 mg PO TID #90 tab 10/24/20 05/21/21 Rx lisinopril 40 mg tablet 40 mg PO QAM 30 Days #30 tab 10/25/20 05/21/21 Rx nystatin-triamcinolone 100,000 1 applic TOPICAL ONCE #15 g 11/10/20 05/21/21 Rx unit/gram-0.1 % topical ointment ticagrelor 90 mg tablet (Brilinta) 90 mg PO BID 90 Days #180 tab 11/21/20 05/21/21 Rx insulin glargine 100 unit/mL (3 30 unit SUBCUT HS milliliter 12/14/20 05/21/21 History mL) subcutaneous pen (Lantus Solostar U-100 Insulin) insulin lispro 100 unit/mL 20 unit SUBCUT TID #15 ml 03/14/21 05/21/21 Rx subcutaneous pen (Humalog KwikPen (U-100) Insulin) nystatin 100,000 unit/gram topical 1 applic TOPICAL BID #60 g 03/14/21 05/21/21 Rx powder atorvastatin 80 mg tablet 80 mg PO QAM 03/15/21 05/21/21 History fluvoxamine 50 mg tablet 50 mg PO HS 03/15/21 05/21/21 History levothyroxine 88 mcg tablet 88 mcg PO QAM 03/15/21 05/21/21 History celecoxib 100 mg capsule (Celebrex) 100 mg PO DAILY #10 cap 04/14/21 05/21/21 Rx lidocaine 5 % topical patch 3 patch TRANSDERMAL QAM #10 ea 04/14/21 05/21/21 Rx metoclopramide HCl 5 mg tablet 5 mg PO AC #30 tab 04/14/21 05/21/21 Rx ondansetron 4 mg disintegrating 4 mg PO Q6H PRN #20 tab 04/14/21 05/21/21 Rx tablet clonazepam 0.5 mg tablet (Klonopin) 0.5 mg PO QAM #30 tab 05/03/21 05/21/21 Rx metoprolol tartrate 25 mg tablet 25 mg PO BID 30 Days #180 tab 05/17/21 05/21/21 Rx Past Med/Surg History Medical History Anxiety CAD (coronary artery disease) No remaining occlusive disease after 2 LAD drug eluting stents 10/22/20. Follows with Dr. Harris Chronic headaches Depression Diabetes type 2, uncontrolled IDDM Dyslipidemia Hypertension Hypothyroidism NSTEMI (non-ST elevated myocardial infarction) 10/22/2020 s/p 2 CHANTAL Obesity Osteoarthritis Renal insufficiency Tobacco abuse Surgical History History of cardiac catheterization 10/22/2020 Dominant: Right Left Main (% Stenosis): Normal LAD (% Stenosis): Proximal (99) and Mid (75) Circumflex (% Stenosis): Normal (luminal irregularities) RCA (% Stenosis): Normal (Luminal irregularities) 2 CHANTAL to LAD History of cholecystectomy History of dental surgery History of tonsillectomy S/P coronary artery stent placement 2 CHANTAL to LAD 10/22/2020 Family History Unknown Diabetes Thyroid disorder Father Diabetes Other No family history of adverse response to anesthesia Denies family history of Ovarian cancer Prostate cancer Breast cancer Colorectal cancer Uterine cancer Social History Smoking Status: Current every day smoker Tobacco Type: Cigarettes packs per day: 0.5; Cigarettes Per Day: 10; Second Hand Exposure: No; Hx Alcohol Use: No Hx Substance Use: No Preferred Language: Vietnamese Communication Ability: Effective Clinical Nurse Reviewer Required: No Beliefs That Will Affect Care: None marital status: Single Current Living Situation: Alone Feels Safe at Home: Yes Safety Concerns Comment: Gets nervous sometimes because she lives alone, gets shaky from anxiety caffeine: Yes Dental Care, Regularly: No Physical Activity Frequency: Does not Exercise Seatbelt Use: always Sunscreen Use: No Assistive Devices: Glasses Review of Systems Review of Systems: All systems reviewed & are unremarkable except as noted in HPI & below Physical Exam Physical Exam: General: patient resting comfortably, NAD, non-toxic in appearance, AA&O x 4 Skin: warm, dry, intact, no rashes or lesions HEENT: NC/AT, PERRL, EOMI, anicteric sclera, conjunctiva without injection, external ear normal to inspection and nontender, nares patent, dry mucus membranes, dentition intact, no oropharyngeal lesions, neck supple, trachea midline, no LAD, no thyromegaly, no JVD Heart: +S1/S2, regular, no m/r/g Lungs: equal air entry bilaterally, no rales/rhonchi/wheezes Abd: +BS, soft, tender in RUQ without rebound/guarding/peritoneal signs or Patton's sign, tender in lower abdomen as well, Lupe scar from prior cholecystectomy, some redness and bruising of the abdominal wall from prior diabetic injections Ext: warm, 2+ pulses in UE/LE bilaterally, no clubbing/cyanosis or edema Neuro: nonfocal, patient AA&O x 4, speech intact, no facial droop, moving all extremities on command with equal strength 5/5 Results & Data Results & Data ([facility]) Vital Signs (Past 12 Hours) Vital Signs Temp Pulse Pulse Resp BP BP Pulse Ox 05/21/21 23:05 68 18 145/77 H 99 05/21/21 21:27 75 20 148/89 H 95 05/21/21 20:11 36.5 C 84 20 160/83 H 97 Laboratory Results Laboratory Results WBC 11.86 K/uL (4.8-10.8) H 05/21/21 20:56 RBC 4.97 M/uL (4.2-5.4) 05/21/21 20:56 Hgb 14.2 g/dL (12.0-16.0) 05/21/21 20:56 Hct 41.1 % (37-47) 05/21/21 20:56 MCV 82.7 fL (80-100) 05/21/21 20:56 MCH 28.6 pg (25-34) 05/21/21 20:56 MCHC 34.5 g/dL (32-36) 05/21/21 20:56 RDW Std Deviation 42.4 fL (36.4-46.3) 05/21/21 20:56 RDW Coeff of Umair 14.2 % (11.5-14.5) 05/21/21 20:56 Plt Count 295 K/uL (130-400) 05/21/21 20:56 MPV 10.3 fL (7.4-10.4) 05/21/21 20:56 Immature Gran % (Auto) 0.3 % 05/21/21 20:56 Neut % (Auto) 76.1 % 05/21/21 20:56 Lymph % (Auto) 17.7 % 05/21/21 20:56 [place] % (Auto) 4.9 % 05/21/21 20:56 Eos % (Auto) 0.9 % 05/21/21 20:56 Baso % (Auto) 0.1 % 05/21/21 20:56 Neut # (Auto) 9.02 K/uL (1.4-6.5) H 05/21/21 20:56 Lymph # (Auto) 2.10 K/uL (1.2-3.4) 05/21/21 20:56 [place] # (Auto) 0.58 K/uL (0.11-0.59) 05/21/21 20:56 Eos # (Auto) 0.11 K/uL (0-0.5) 05/21/21 20:56 Baso # (Auto) 0.01 K/uL (0-0.2) 05/21/21 20:56 Immature Gran # (Auto) 0.04 K/uL (0.00-0.02) H 05/21/21 20:56 PT 10.3 Seconds (9.0-12.0) 05/21/21 20:56 INR 1.0 (0.9-1.1) 05/21/21 20:56 APTT 21.7 Seconds (21.0-31.0) 05/21/21 20:56 PTT Ratio 0.8 05/21/21 20:56 Sodium 136 mmol/L (136-145) 05/21/21 20:56 Potassium 2.4 mmol/L (3.5-5.1) L* 05/21/21 20:56 Chloride 95 mmol/L (98-107) L 05/21/21 20:56 Carbon Dioxide 28 mmol/L (21-32) 05/21/21 20:56 Anion Gap 13 (3-11) H 05/21/21 20:56 BUN 7 mg/dl (6-23) 05/21/21 20:56 Creatinine 0.90 mg/dl (0.6-1.2) 05/21/21 20:56 Est Cr Clr Drug Dosing 69.6 ml/min 05/21/21 20:56 Est GFR ( Amer) 80.0 ml/min 05/21/21 20:56 Est GFR (Non-Af Amer) 69.0 ml/min 05/21/21 20:56 BUN/Creatinine Ratio 7.8 (10-20) L 05/21/21 20:56 Glucose 386 mg/dl (70-99(Fasting)) H* 05/21/21 20:56 Calcium 8.4 mg/dl (8.5-10.1) L 05/21/21 20:56 Phosphorus 3.5 mg/dl (2.5-4.9) 05/21/21 20:56 Magnesium 1.3 mg/dl (1.7-2.4) L 05/21/21 20:56 Total Bilirubin 0.4 mg/dl (0.2-1.0) 05/21/21 20:56 AST 13 U/L (13-39) 05/21/21 20:56 ALT 16 U/L (7-52) 05/21/21 20:56 Alkaline Phosphatase 157 U/L (34-104) H 05/21/21 20:56 Troponin I < 0.03 ng/ml (0-0.04) 05/21/21 20:56 Total Protein 6.9 gm/dl (6.0-8.3) 05/21/21 20:56 Albumin 3.5 gm/dl (3.4-5.0) 05/21/21 20:56 Globulin 3.4 gm/dl (2.5-4.0) 05/21/21 20:56 Albumin/Globulin Ratio 1.0 (0.9-2) 05/21/21 20:56 Lipase 10 U/L (11-82) L 05/21/21 20:56 Urine Color Yellow 05/21/21 21:02 Urine Appearance Clear (Clear) 05/21/21 21:02 Urine pH 5.5 (4.5-7.5) 05/21/21 21:02 Ur Specific [place] 1.037 (1.000-1.030) H 05/21/21 21:02 Urine Protein Negative (Negative) 05/21/21 21:02 Urine Glucose (UA) 3+ (Negative) H 05/21/21 21:02 Urine Ketones Negative (Negative) 05/21/21 21:02 Urine Blood Negative (Negative) 05/21/21 21:02 Urine Nitrite Negative (Negative) 05/21/21 21:02 Urine Bilirubin Negative (Negative) 05/21/21 21:02 Urine Urobilinogen Negative (Negative) 05/21/21 21:02 Ur Leukocyte Esterase Negative (Negative) 05/21/21 21:02 SARS-CoV-2, RNA, NAAT NEGATIVE (NEGATIVE) 05/21/21 Unknown Impressions Chest X-Ray 05/21/21 20:36 SINGLE VIEW CHEST CLINICAL HISTORY: Generalized abdominal pain FINDINGS: An AP, portable, upright chest radiograph is compared to study dated 04/08/2021 and correlated with chest CT dated 04/09/2021. The heart is mildly enlarged. The pulmonary vasculature is noncongested. Atelectasis is noted at the lung bases. The lungs and pleural spaces are otherwise clear. No pneumothorax is seen. The skeletal structures are osteopenic. The bony thorax is grossly intact. IMPRESSION: Mild cardiomegaly with no active disease in the chest. ACT 112: Negative or not required by law. Electronically signed by: Lalito Cisse M.D. 05/21/2021 8:57 PM KUB X-Ray 05/21/21 20:36 KUB CLINICAL HISTORY: Right upper quadrant abdominal pain. FINDINGS: 3 AP supine abdominal radiographs are correlated with abdominal CT dated 04/09/2021. Cholecystectomy clips are noted in the right upper quadrant. There is a nonobstructed abdominal bowel gas pattern. No evidence of intraperitoneal free air is seen on these supine images. There are no abnormal abdominal calcifications. Calcified fibroids are noted in the pelvis. The ske letal structures are osteopenic and appear intact. IMPRESSION: No acute abnormality is identified. Electronically signed by: Lalito Cisse M.D. 05/21/2021 9:00 PM ECG Additional Comments: Diffuse ST changes, T wave depressions and possible U waves Code Status & VTE Plan VTE Prophylaxis Plan VTE Prophylaxis will be ordered: Yes PG Care Time/CCT Total # of Minutes Spent Total Time Spent with Patient: Total time spent is greater than 50% in coordination of care (as documented) at patient's floor/unit and/or counseling patient: Coding Level of Care Code 95169 Initial Inpt Care Lvl 3 Diagnoses Right upper quadrant abdominal pain R10.11 Hypokalemia E87.6 Depression F32.9 CAD (coronary artery disease) I25.10 Coronary Disease-Associated Artery/Lesion type: [place] artery [place] vs. transplanted heart: [place] heart Associated angina: unspecified whether angina present Hypothyroidism E03.9 Hypertension I10 Dyslipidemia E78.5 Diabetes type 2, uncontrolled E11.65 Hypomagnesemia E83.42 (1) CAD (coronary artery disease) Coronary Disease-Associated Artery/Lesion type: [place] artery [place] vs. transplanted heart: [place] heart Associated angina: unspecified whether angina present Qualified Code(s): I25.10 - Atherosclerotic heart disease of [place] coronary artery without angina pectoris
[2021-05-22 00:06] LABS: Magnesium 1.3 mg/dl (1.7-2.4); Phosphorus 3.5 mg/dl (2.5-4.9)
[2021-05-22] MEDS: MAGNESIUM SULFATE / D5W 1 GM/100 ML BAG IV STA ×2 (00:10→01:47)
[2021-05-22] MEDS ORDERED: MAGNESIUM SULFATE / D5W 1 GM/100 ML BAG IV STA (00:12)
[2021-05-22] MEDS ORDERED: GLUCAGON FOR INJ 1 MG VIAL SQ PRN (04:07)
[2021-05-22] MEDS ORDERED: GLUCOSE 10 TABS/TUBE PO PRN (04:07)
[2021-05-22] MEDS ORDERED: GLUCOSE 40% GEL 15 GM TUBE PO PRN (04:07)
[2021-05-22] MEDS ORDERED: ONDANSETRON INJ 2 MG/ML 2 ML VIAL IV PRN (04:07)
[2021-05-22] MEDS ORDERED: CARBOHYDRATES FOR HYPOGLYCEMIA PO PRN (04:07)
[2021-05-22] MEDS ORDERED: DEXTROSE 50% 50 ML SYRINGE IV PRN (04:07)
[2021-05-22] MEDS: MAGNESIUM SULFATE / D5W 1 GM/100 ML BAG IV SCH ×4 (04:50→11:36)
[2021-05-22] MEDS: ACETAMINOPHEN 325 MG TAB PO PRN ×2 (04:52→19:58)
[2021-05-22] MEDS: LEVOTHYROXINE SODIUM 88 MCG TABLET PO SCH (05:35)
[2021-05-22 06:04] LABS: Basophils # (auto) 0.02 K/uL (0-0.2); Basophils % (auto) 0.2 %; Eosinophils # (auto) 0.22 K/uL (0-0.5); Hematocrit (blood only) 39.1 % (37-47); Hemoglobin 13.3 g/dL (12.0-16.0); Immature Granulocytes # (auto) 0.03 K/uL (0.00-0.02); Immature Granulocytes % (auto) 0.3 %; Lymphocytes % (auto) 19.3 %; Mean Corpuscular Hemoglobin 28.4 pg (25-34); Mean Corpuscular Volume 83.4 fL (80-100); Mean Platelet Volume 9.8 fL (7.4-10.4); Monocytes # (auto) 0.69 K/uL (0.11-0.59); Monocytes % (auto) 6.3 %; Neutrophils # (auto) 7.83 K/uL (1.4-6.5); Neutrophils % (auto) 71.9 %; Platelet Count 251 K/uL (130-400); RDW Coefficient of Variation 14.6 % (11.5-14.5); RDW Standard Deviation 44.3 fL (36.4-46.3); Red Blood Count 4.69 M/uL (4.2-5.4); White Blood Count 10.89 K/uL (4.8-10.8)
[2021-05-22 06:36] LABS: Albumin Level 3.3 gm/dl (3.4-5.0); Bilirubin Direct 0.1 mg/dl (0-0.2); Bilirubin,Total 0.5 mg/dl (0.2-1.0); Creatinine Clr Calc Pharmacy 82.1 ml/min; Est GFR (African American) 99.7 ml/min; Potassium 3.2 mmol/L (3.5-5.1); Total Protein 6.5 gm/dl (6.0-8.3)
[2021-05-22] MEDS ORDERED: METOCLOPRAMIDE HCL 5 MG TABLET PO SCH (07:30)
--- NOTE | 2021-05-22 08:16 | Electrocardiogram Report ---
Test Reason : Blood Pressure : / mmHG Vent. Rate : 077 BPM Atrial Rate : 077 BPM P-R Int : 168 ms QRS Dur : 078 ms QT Int : 388 ms P-R-T Axes : 043 027 255 degrees QTc Int : 439 ms Normal sinus rhythm Abnormal ECG When compared with ECG of 20-NOV-2020 05:43, Non-specific change in ST segment in Inferior leads T wave inversion more evident in Inferior leads T wave inversion now evident in Lateral leads Confirmed by Garcia Harris ([id number]) on 05/22/2021 8:15:53 AM Referred By: REFERRED SELF Confirmed By:Garcia Harris
[2021-05-22] MEDS: SUCRALFATE 1 GM/10 ML UDC PO SCH ×4 (08:25→20:00)
[2021-05-22] MEDS: busPIRone 5 MG TAB PO SCH ×3 (08:27→20:01)
[2021-05-22] MEDS: METOPROLOL TARTRATE 25 MG TAB PO SCH ×2 (08:28→20:01)
[2021-05-22] MEDS: ASPIRIN 81 MG ECTAB PO SCH (08:28)
[2021-05-22] MEDS: lisinopril 40 MG TAB PO SCH (08:28)
[2021-05-22] MEDS: TICAGRELOR 90 MG TAB PO SCH ×2 (08:28→20:01)
[2021-05-22] MEDS: ATORVASTATIN 40 MG TAB PO SCH (08:28)
[2021-05-22] MEDS: FAMOTIDINE 40 MG TABLET PO SCH (08:28)
[2021-05-22] MEDS: CELECOXIB 100 MG CAP PO SCH (08:28)
[2021-05-22] MEDS: NYSTATIN POWDER 15GM BTL EXT SCH ×2 (08:29→20:00)
--- NOTE | 2021-05-22 08:29 | Ultrasound Report ---
US liver CLINICAL HISTORY: Right upper quadrant abdominal pain. COMPARISON STUDY: CTA of the abdomen and pelvis April 09, 2021. MRCP April 11, 2021. FINDINGS: Liver echogenicity is at the upper limits of normal. No hepatic lesions are identified. The re is no biliary ductal dilatation status post cholecystectomy. Common bile duct measures 4 mm in laura iber. The pancreas is largely obscured on this examination. There is no right hydronephrosis. IMPRESSION: No biliary ductal dilatation status post cholecystectomy. ACT 112: Negative or not required by law. Electronically signed by: Nahun Odell M.D. 05/22/2021 8:27 AM
[2021-05-22] MEDS: NICOTINE 7 MG/24 HR TDSY TD SCH (08:30)
[2021-05-22] MEDS: LIDOCAINE 5% 1 PATCH TD SCH (08:30)
[2021-05-22] MEDS: INSULIN GLARGINE SOLOSTAR 100 UNITS/ML 3 ML PEN SC SCH ×2 (08:31→20:56)
[2021-05-22] MEDS: INSULIN ASPART PER UNIT SC SCH ×4 (08:40→20:55)
[2021-05-22] MEDS: clonazePAM 0.5 MG TAB PO SCH (08:41)
[2021-05-22] MEDS ORDERED: POTASSIUM CHLORIDE CRTAB 20 MEQ TABCR PO STA (11:13)
--- NOTE | 2021-05-22 11:25 | Hospitalist Progress Note ---
Date of Service May 22, 2021 Assessment & Plan (1) Right upper quadrant abdominal pain: Plan: Extensive workup inpatient [address] abdomen, CTA abdomen/pelvis, MRCP, EGD, GI consultation. No obvious source of discomfort elucidated. Thought possibly secondary to gastroenteritis, gastroparesis, less likely gastritis. Patient now endorses occasional post-prandial regurgitation and nausea - could be secondary to gastroparesis. - RUQ U/S on 05/22 without any issues. - Continue Reglan qAC - Pepcid 40mg daily - monitor symptoms - Carafate QID - monitor symptoms - Plan for gastric emptying study for tomorrow. Made NPO @ midnight. Consideration also for atypical angina, though story doesn't seem consistent with that. Will have RN or aide walk patient briskly after she is done with IV meds to see if this results in any of the pain. (2) Hypomagnesemia: Plan: Mg=1.3 -Repletion with 6gm IV - ordered -Repeat Mg level in AM - Still running at this time. (3) CAD (coronary artery disease): Plan: S/p NSTEMI 10/2020 s/p CHANTAL placement to LAD. Patient on DAPT with ASA and Brillinta. - Continue ASA, Brilinta - Continue metoprolol, lisinopril, atorvastatin (4) Depression: Plan: Chronic. - Continue Buspirone TID - Continue Clonazepam (PDMP checked) (5) Hypothyroidism: Plan: Chronic. Stable by normal TSH October 2020. - Continue Synthroid 88mcg daily (6) Hypertension: Plan: Blood pressure mildly elevated today at 150/75. - Continue metoprolol 25mg po BID, lisinopril 40mg po qAM - Continue to monitor (7) Diabetes type 2, uncontrolled: Plan: Improved control - last HgbA1C was 10.8% on 04/04/21 (down from 15.8% in October 2020). Elevated blood sugar presently at 386 which is probably fairly near baseline value given her most recent A1C. Patient was seen by Diabetes Education team during last admission. - Hold Farxiga while inpatient - Lantus 15u BID - ISS - Goal blood sugar 100 - 140 -> Sugars 240 - 300 in last 24 hours. Will tighten sliding scale. Admission and Anticipated Discharge Date Admission Date: May 21, 2021 Subjective Doing ok this morning. With some RUQ pain. Did not change with her eating. However, she does not some nausea after eating. She has a complicated story with reporting some regurgitation with food, but then kind of backtracks that it is swallowing food, then throwing it back up. Physical Exam Constitutional: WD/WN, vitals as above Eyes: EOM intact bilaterally; no conjunctival abnormality ENMT: external ear and nose normal, oropharynx normal Neck: trachea midline, no thyromegaly normal visual inspection Respiratory: normal respiratory effort, lungs clear to auscultation no respiratory distress Cardiovascular: RRR, no murmur, no edema Gastrointestinal (Abdomen): Inspection/Auscultation: abdomen normal to inspection; abdomen not distended Percussion/Palpation: + abdomen tender (RUQ) and abdomen soft; no guarding and abdomen not rigid Musculoskeletal: no cyanosis or clubbing, extremities motor strength 5/5 Skin: no rashes, warm and dry Neurologic: moves all extremities and awake Psychiatric: Orientation: alert, oriented to person and cooperative Results & Data Results & Data ([facility]) Vital Signs (Past 12 Hours) Vital Signs Temp Pulse Pulse Resp BP Pulse Ox 05/22/21 07:44 37.0 C 74 18 149/75 H 94 05/22/21 07:19 66 05/22/21 04:07 36.5 C 65 16 174/87 H 95 05/22/21 04:04 65 05/22/21 03:36 36.6 C 61 20 155/80 H 94 05/22/21 02:24 65 20 133/86 94 05/22/21 01:26 69 18 147/87 H 94 05/22/21 00:00 71 18 146/93 H 98 PG Care Time/CCT Total # of Minutes Spent Total Time Spent with Patient: Total time spent is greater than 50% in coordination of care (as documented) at patient's floor/unit and/or counseling patient: Coding Level of Care Code 22271 Subseq Hosp Care Lvl 3 Diagnoses Right upper quadrant abdominal pain R10.11 Hypomagnesemia E83.42 Depression F32.9 CAD (coronary artery disease) I25.10 Coronary Disease-Associated Artery/Lesion type: [place] artery [place] vs. transplanted heart: [place] heart Associated angina: unspecified whether angina present Hypothyroidism E03.9 Hypertension I10 Diabetes type 2, uncontrolled E11.65 (1) CAD (coronary artery disease) Coronary Disease-Associated Artery/Lesion type: [place] artery [place] vs. transplanted heart: [place] heart Associated angina: unspecified whether angina present Qualified Code(s): I25.10 - Atherosclerotic heart disease of [place] coronary artery without angina pectoris
[2021-05-22] MEDS: fluvoxaMINE MALEATE 50 MG TAB PO SCH (20:01)
[2021-05-23] MEDS: LEVOTHYROXINE SODIUM 88 MCG TABLET PO SCH (06:06)
[2021-05-23] MEDS: ACETAMINOPHEN 325 MG TAB PO PRN ×2 (06:07→19:40)
[2021-05-23 07:15] LABS: Hematocrit (blood only) 40.3 % (37-47); Hemoglobin 13.8 g/dL (12.0-16.0); Mean Corpuscular Hemoglobin 28.4 pg (25-34); Mean Corpuscular Hgb Conc 34.2 g/dL (32-36); Mean Corpuscular Volume 82.9 fL (80-100); Platelet Count 240 K/uL (130-400); RDW Coefficient of Variation 14.4 % (11.5-14.5); RDW Standard Deviation 43.3 fL (36.4-46.3); Red Blood Count 4.86 M/uL (4.2-5.4); White Blood Count 9.94 K/uL (4.8-10.8)
[2021-05-23 07:59] LABS: BUN Creatinine Ratio 11.5 (10-20); Calcium 8.1 mg/dl (8.5-10.1); Creatinine Clr Calc Pharmacy 70.8 ml/min; Est GFR (African American) 83.3 ml/min; Est GFR (Non-African American) 71.9 ml/min; Magnesium 1.6 mg/dl (1.7-2.4); Potassium 3.1 mmol/L (3.5-5.1)
[2021-05-23] MEDS: INSULIN GLARGINE SOLOSTAR 100 UNITS/ML 3 ML PEN SC SCH ×2 (08:22→20:32)
[2021-05-23] MEDS: INSULIN ASPART PER UNIT SC SCH ×4 (08:22→20:31)
[2021-05-23] MEDS: NICOTINE 7 MG/24 HR TDSY TD SCH (08:27)
[2021-05-23] MEDS: METOPROLOL TARTRATE 25 MG TAB PO SCH ×2 (08:28→20:34)
[2021-05-23] MEDS: SUCRALFATE 1 GM/10 ML UDC PO SCH ×4 (08:28→20:35)
[2021-05-23] MEDS: FAMOTIDINE 40 MG TABLET PO SCH (08:28)
[2021-05-23] MEDS: ASPIRIN 81 MG ECTAB PO SCH (08:28)
[2021-05-23] MEDS: busPIRone 5 MG TAB PO SCH ×3 (08:28→20:33)
[2021-05-23] MEDS: CELECOXIB 100 MG CAP PO SCH (08:28)
[2021-05-23] MEDS: ATORVASTATIN 40 MG TAB PO SCH (08:28)
[2021-05-23] MEDS: lisinopril 40 MG TAB PO SCH (08:28)
[2021-05-23] MEDS: LIDOCAINE 5% 1 PATCH TD SCH (08:29)
[2021-05-23] MEDS: TICAGRELOR 90 MG TAB PO SCH ×2 (08:29→20:36)
[2021-05-23] MEDS: NYSTATIN POWDER 15GM BTL EXT SCH ×2 (08:29→20:34)
[2021-05-23] MEDS: clonazePAM 0.5 MG TAB PO SCH (08:31)
--- NOTE | 2021-05-23 10:51 | Hospitalist Progress Note ---
Date of Service May 23, 2021 Assessment & Plan (1) Right upper quadrant abdominal pain: Plan: Extensive workup inpatient [address] abdomen, CTA abdomen/pelvis, MRCP, EGD, GI consultation. No obvious source of discomfort elucidated. Thought possibly secondary to gastroenteritis, gastroparesis, less likely gastritis. Patient now endorses occasional post-prandial regurgitation and nausea - could be secondary to gastroparesis. - RUQ U/S on 05/22 without any issues. - Pepcid 40mg daily - monitor symptoms - Carafate QID - monitor symptoms - Hold Reglan for test tomorrow. -> While important not to miss, atypical angina seems unlikely. She briskly walked the halls with RN yesterday. She reports some shortness of breath, but none of her GI symptoms. At this point, cardiology consult or stress test seems unneccasary, but will keep it in mind. - Plan for gastric emptying study for tomorrow. Made NPO @ midnight. (2) Hypomagnesemia: Plan: Mg=1.3 -Repletion with 6gm IV - ordered -Repeat Mg level in AM - Still running at this time. (3) CAD (coronary artery disease): Plan: S/p NSTEMI 10/2020 s/p CHANTAL placement to LAD. Patient on DAPT with ASA and Brillinta. - Continue ASA, Brilinta - Continue metoprolol, lisinopril, atorvastatin (4) Depression: Plan: Chronic. - Continue buspirone TID & fluvoxamine HS - Continue clonazepam (PDMP checked) (5) Hypothyroidism: Plan: Chronic. Stable by normal TSH October 2020. - Continue Synthroid 88mcg daily (6) Hypertension: Plan: Blood pressure mildly elevated today at 150/75. - Continue metoprolol 25mg po BID, lisinopril 40mg po qAM - Continue to monitor (7) Diabetes type 2, uncontrolled: Plan: Improved control - last HgbA1C was 10.8% on 04/04/21 (down from 15.8% in October 2020). Elevated blood sugar presently at 386 which is probably fairly near baseline value given her most recent A1C. Patient was seen by Diabetes Education team during last admission. - Hold Farxiga while inpatient - Lantus 15u BID - Goal blood sugar 100 - 140 -> Sugars 220 - 230 in last 24 hours, but impr oving. Keep sliding scale steady today. Admission and Anticipated Discharge Date Admission Date: May 21, 2021 Subjective Doing well today. RUQ pain has improved to some extent. Feels like the back pain is more prominent today. Reports no fevers/chills, chest pain, shortness of breath, nausea, or vomiting. Physical Exam Constitutional: WD/WN, vitals as above Eyes: EOM intact bilaterally; no conjunctival abnormality ENMT: external ear and nose normal, oropharynx normal Neck: trachea midline, no thyromegaly normal visual inspection Respiratory: normal respiratory effort, lungs clear to auscultation no respiratory distress Cardiovascular: RRR, no murmur, no edema Gastrointestinal (Abdomen): Inspection/Auscultation: abdomen normal to inspection; abdomen not distended Percussion/Palpation: + abdomen tender (RUQ) and abdomen soft; no guarding and abdomen not rigid Musculoskeletal: no cyanosis or clubbing, extremities motor strength 5/5 Skin: no rashes, warm and dry Neurologic: moves all extremities and awake Psychiatric: Orientation: alert, oriented to person and cooperative Results & Data Results & Data ([facility]) Vital Signs (Past 12 Hours) Vital Signs Temp Pulse Pulse Resp BP Pulse Ox 05/23/21 07:23 36.9 C 73 18 180/78 H 95 05/23/21 07:05 71 05/23/21 02:46 37.0 C 80 18 175/76 H 95 05/22/21 23:43 67 05/22/21 23:02 36.6 C 63 18 143/86 H 97 PG Care Time/CCT Total # of Minutes Spent Total Time Spent with Patient: Total time spent is greater than 50% in coordination of care (as documented) at patient's floor/unit and/or counseling patient: Coding Level of Care Code 79838 Subseq Hosp Care Lvl 2 Diagnoses Right upper quadrant abdominal pain R10.11 Hypomagnesemia E83.42 CAD (coronary artery disease) I25.10 Coronary Disease-Associated Artery/Lesion type: [place] artery [place] vs. transplanted heart: [place] heart Associated angina: unspecified whether angina present Depression F32.9 Hypothyroidism E03.9 Hypertension I10 Diabetes type 2, uncontrolled E11.65 (1) CAD (coronary artery disease) Coronary Disease-Associated Artery/Lesion type: [place] artery [place] vs. transplanted heart: [place] heart Associated angina: unspecified whether angina present Qualified Code(s): I25.10 - Atherosclerotic heart disease of [place] coronary artery without angina pectoris
[2021-05-23] MEDS: POTASSIUM CHLORIDE CRTAB 20 MEQ TABCR PO SCH ×2 (11:15→20:40)
[2021-05-23] MEDS: MAGNESIUM SULFATE / D5W 1 GM/100 ML BAG IV SCH ×4 (11:16→17:14)
[2021-05-23] MEDS: fluvoxaMINE MALEATE 50 MG TAB PO SCH (20:33)
[2021-05-24] MEDS: LEVOTHYROXINE SODIUM 88 MCG TABLET PO SCH (06:18)
[2021-05-24] MEDS: ACETAMINOPHEN 325 MG TAB PO PRN ×2 (06:34→19:47)
[2021-05-24 08:03] LABS: Hematocrit (blood only) 40.7 % (37-47); Hemoglobin 13.8 g/dL (12.0-16.0); Mean Corpuscular Hemoglobin 28.2 pg (25-34); Mean Corpuscular Hgb Conc 33.9 g/dL (32-36); Mean Corpuscular Volume 83.2 fL (80-100); Mean Platelet Volume 10.2 fL (7.4-10.4); Platelet Count 264 K/uL (130-400); RDW Coefficient of Variation 14.4 % (11.5-14.5); RDW Standard Deviation 43.6 fL (36.4-46.3); Red Blood Count 4.89 M/uL (4.2-5.4); White Blood Count 8.43 K/uL (4.8-10.8)
[2021-05-24 08:04] LABS: BUN Creatinine Ratio 17.5 (10-20); Calcium 8.5 mg/dl (8.5-10.1); Est GFR (African American) 92.2 ml/min; Est GFR (Non-African American) 79.6 ml/min; Magnesium 1.8 mg/dl (1.7-2.4); Phosphorus 3.1 mg/dl (2.5-4.9); Potassium 3.6 mmol/L (3.5-5.1)
[2021-05-24] MEDS: INSULIN ASPART PER UNIT SC SCH ×4 (09:16→20:30)
[2021-05-24] MEDS: LIDOCAINE 5% 1 PATCH TD SCH (09:16)
[2021-05-24] MEDS: INSULIN GLARGINE SOLOSTAR 100 UNITS/ML 3 ML PEN SC SCH ×2 (09:16→20:31)
[2021-05-24] MEDS: NICOTINE 7 MG/24 HR TDSY TD SCH (11:16)
[2021-05-24] MEDS: NYSTATIN POWDER 15GM BTL EXT SCH ×2 (11:16→20:32)
[2021-05-24] MEDS: SUCRALFATE 1 GM/10 ML UDC PO SCH ×2 (12:39→13:09)
[2021-05-24] MEDS: clonazePAM 0.5 MG TAB PO SCH (13:08)
[2021-05-24] MEDS: METOPROLOL TARTRATE 25 MG TAB PO SCH ×2 (13:08→20:32)
[2021-05-24] MEDS: ATORVASTATIN 40 MG TAB PO SCH (13:08)
[2021-05-24] MEDS: busPIRone 5 MG TAB PO SCH ×3 (13:08→20:30)
[2021-05-24] MEDS: TICAGRELOR 90 MG TAB PO SCH ×2 (13:09→20:32)
[2021-05-24] MEDS: lisinopril 40 MG TAB PO SCH (13:09)
[2021-05-24] MEDS: FAMOTIDINE 40 MG TABLET PO SCH (13:09)
[2021-05-24] MEDS: CELECOXIB 100 MG CAP PO SCH (13:09)
[2021-05-24] MEDS: ASPIRIN 81 MG ECTAB PO SCH (13:09)
--- NOTE | 2021-05-24 13:09 | Nuclear Medicine Report ---
NUCLEAR GASTRIC EMPTYING STUDY HISTORY: Postprandial nausea and emesis. COMPARISON: Abdomen and pelvis CT 04/09/2021. TECHNIQUE: Following the oral administration of 1 mCi of technetium 99m sulfur colloid in egg sandwic h and 8 ounces of water, static abdominal images are obtained anteriorly and posteriorly at 0 minutes , 1 hour, 2 hour, and 4 hour time intervals. Gastric emptying was calculated utilizing the geometric mean method. FINDINGS: There is approximately 62% activity remaining at the 1 hour time interval (normal is less t jeffers 90%), 48% remaining at the 2 hour time interval (normal is less than 60%), and 1% activity remain ing at the 4 hour time interval (normal is less than 10%). IMPRESSION: No evidence for delayed gastric emptying. ACT 112: Negative or not required by law. Electronically signed by: Omid Pedroza M.D. 05/24/2021 1:08 PM
--- NOTE | 2021-05-24 14:47 | Hospitalist Progress Note ---
Date of Service May 24, 2021 Assessment & Plan (1) Right upper quadrant abdominal pain: Plan: Extensive workup inpatient [address] abdomen, CTA abdomen/pelvis, MRCP, EGD, GI consultation. No obvious source of discomfort elucidated. Thought possibly secondary to gastroenteritis, gastroparesis, less likely gastritis. Patient now endorses occasional post-prandial regurgitation and nausea - could be secondary to gastroparesis. - RUQ U/S on 05/22 without any issues. - Stop Pepcid 40mg daily - Do not think it is due to gastritis. - Stop Carafate QID - Do not think it is due to gastritis. -> While important not to miss, atypical angina seems unlikely. She briskly walked the halls with RN yesterday. She reports some shortness of breath, but none of her GI symptoms. At this point, cardiology consult or stress test seems unneccasary, but will keep it in mind. - Gastric emptying study on 05/24 was normal. - On 05/24, the patient reported the pain was "all over" belly. Abdomen was diffusely tender to even light palpation. Diagnostic considerations at this point are: 1) Constipation, 2) Lactose intolerance, or 3) Possibly celiac. - Will start Miralax HS - Order TTG - Lactose-free diet (2) Hypomagnesemia: Plan: Mg=1.3 -Repletion with 6gm IV - ordered -Repeat Mg level in AM - Still running at this time. (3) CAD (coronary artery disease): Plan: S/p NSTEMI 10/2020 s/p CHANTAL placement to LAD. Patient on DAPT with ASA and Brillinta. - Continue ASA, Brilinta - Continue metoprolol, lisinopril, atorvastatin (4) Depression: Plan: Chronic. - Continue buspirone TID & fluvoxamine HS - Continue clonazepam (PDMP checked) (5) Hypothyroidism: Plan: Chronic. Stable by normal TSH October 2020. - Continue Synthroid 88mcg daily (6) Hypertension: Plan: Blood pressure mildly elevated today at 150/75. - Continue metoprolol 25mg po BID, lisinopril 40mg po qAM - Continue to monitor (7) Diabetes type 2, uncontrolled: Plan: Improved control - last HgbA1C was 10.8% on 04/04/21 (down from 15.8% in October 2020). Elevated blood sugar presently at 386 which is probably fairly near baseline value given her most recent A1C. Patient was seen by Diabetes Education team during last admission. - Hold Farxiga while inpatient - Lantus 15u BID - Goal blood sugar 100 - 140 -> Sugars 220 - 230 in last 24 hours, but improving. Keep sliding scale steady today. Admission and Anticipated Discharge Date Admission Date: May 21, 2021 Subjective Feeling her pain is all over now. Very tired. Reports no fevers/chills, chest pain, shortness of breath, nausea, or vomiting. Physical Exam Constitutional: WD/WN, vitals as above Eyes: EOM intact bilaterally; no conjunctival abnormality ENMT: external ear and nose normal, oropharynx normal Neck: trachea midline, no thyromegaly normal visual inspection Respiratory: normal respiratory effort, lungs clear to auscultation no respiratory distress Cardiovascular: RRR, no murmur, no edema Gastrointestinal (Abdomen): Inspection/Auscultation: abdomen normal to inspection; abdomen not distended Percussion/Palpation: + abdomen tender (Diffuse) and abdomen soft; no guarding and abdomen not rigid Musculoskeletal: no cyanosis or clubbing, extremities motor strength 5/5 Skin: no rashes, warm and dry Neurologic: moves all extremities and awake Psychiatric: Orientation: alert, oriented to person and cooperative Results & Data Results & Data ([facility]) Vital Signs (Past 12 Hours) Vital Signs Temp Pulse Pulse Resp BP BP Pulse Ox 05/24/21 12:00 36.5 C 72 20 149/84 H 95 05/24/21 08:24 70 05/24/21 08:07 36.8 C 79 20 163/86 H 96 05/24/21 03:41 36.5 C 57 L 16 132/70 97 PG Care Time/CCT Total # of Minutes Spent Total Time Spent with Patient: Total time spent is greater than 50% in coordination of care (as documented) at patient's floor/unit and/or counseling patient: Coding Level of Care Code 37139 Subseq Hosp Care Lvl 2 Diagnoses Right upper quadrant abdominal pain R10.11 Hypomagnesemia E83.42 CAD (coronary artery disease) I25.10 Associated angina: unspecified whether angina present Coronary Disease-Associated Artery/Lesion type: [place] artery [place] vs. transplanted heart: [place] heart Depression F32.9 Hypothyroidism E03.9 Hypertension I10 Diabetes type 2, uncontrolled E11.65 (1) CAD (coronary artery disease) Associated angina: unspecified whether angina present Coronary Disease- Associated Artery/Lesion type: [place] artery [place] vs. transplanted heart: [place] heart Qualified Code(s): I25.10 - Atherosclerotic heart disease of [place] coronary artery without angina pectoris
[2021-05-24] MEDS: fluvoxaMINE MALEATE 50 MG TAB PO SCH (20:30)
[2021-05-24] MEDS ORDERED: POLYETHYLENE (MIRALAX) 17 GM PACK PO SCH (21:00)
[2021-05-25] MEDS: ACETAMINOPHEN 325 MG TAB PO PRN ×2 (03:04→08:31)
[2021-05-25] MEDS ORDERED: MELATONIN 3 MG TAB PO PRN (03:24)
[2021-05-25] MEDS ORDERED: MoRPHine SULFATE 2 MG/ML CARP IV STA (03:38)
--- NOTE | 2021-05-25 03:38 | Communication Note ---
Date of Service: May 25, 2021 S: Alerted at approximately 330 in the patient was reporting chest pain. Evaluated patient at the bedside, reported mediastinal pain which she reported sharp denying chest pressure, shortness of breath, nausea vomiting fever chills O: Heart had a regular rate and rhythm lungs were clear to auscultation bilaterally. On palpation of her mediastinum she endorsed reproducible pain and this was the pain she was describing. A/P: EKG unchanged, stat troponins pending, patient already on extensive NSAID burden and has already taken Tylenol. Will provide one-time dose of morphine 2 mg.
[2021-05-25] MEDS: LEVOTHYROXINE SODIUM 88 MCG TABLET PO SCH (06:29)
[2021-05-25] MEDS: INSULIN GLARGINE SOLOSTAR 100 UNITS/ML 3 ML PEN SC SCH (08:27)
[2021-05-25] MEDS: INSULIN ASPART PER UNIT SC SCH ×2 (08:27→12:03)
[2021-05-25] MEDS: METOPROLOL TARTRATE 25 MG TAB PO SCH (08:31)
[2021-05-25] MEDS: clonazePAM 0.5 MG TAB PO SCH (08:31)
[2021-05-25] MEDS: TICAGRELOR 90 MG TAB PO SCH (08:31)
[2021-05-25] MEDS: ASPIRIN 81 MG ECTAB PO SCH (08:32)
[2021-05-25] MEDS: CELECOXIB 100 MG CAP PO SCH (08:32)
[2021-05-25] MEDS: NICOTINE 7 MG/24 HR TDSY TD SCH (08:32)
[2021-05-25] MEDS: ATORVASTATIN 40 MG TAB PO SCH (08:32)
[2021-05-25] MEDS: LIDOCAINE 5% 1 PATCH TD SCH (08:32)
[2021-05-25] MEDS: lisinopril 40 MG TAB PO SCH (08:32)
[2021-05-25] MEDS: busPIRone 5 MG TAB PO SCH ×2 (08:32→13:52)
[2021-05-25] MEDS: NYSTATIN POWDER 15GM BTL EXT SCH (08:33)
--- NOTE | 2021-05-25 10:29 | Discharge Summary ---
Date of Service May 25, 2021 Admission HPI Per Admitting Provider Yolanda Lua is a pleasant 60yo female with histoyr of CAD, DM, HTN, HLP presenting with RUQ pain. Patient was hospitalized with similar complaint 04/03/21 - 04/14/21. During that hospitalization she had an extensive workup to include GI consultation, she had an EGD performed on 04/09/21 which revealed gastritis which was biopsied and normal esophagus, duodenal bulb and second portion of the duodenum. Biopsies showed chronic gastritis with focal mild activity. H. Pylori staining was NEGATIVE. She had a CT of the Abdomen/Pelvis which was initially suggestive of ileus vs gastroenteritis. Liver US was unremarkable. CTA of the Chest/Abdomen/Pelvis was unremarkable. MRCP with normal caliber CBD at 3mm. No choledocholithiasis. CT of the thoracic spine NEGATIVE as well. Her abdominal pain was improving on discharge. No formal diagnosis reached, however, thought possibly secondary to gastroparesis. She was sent home with Reglan to be taken prior to meals and Zofran PRN. She had a Gastric Emptying Study set up for 05/02/21. Uncertain if this study has been completed. Patient states that she has been having difficulty eating. She is able to chew and swallow without difficulty or pain but then feels that the food wants to come right back up. This typically happens with bread. Not as much with liquid or vegetables. She has constant nausea and aching pain in her RUQ. Denies fever/chills/chest pain/cough/SOB/diarrhea. Denies globus sensation/sinusitis. She does have a chronic cough but is a current smoker. No additional complaints at this time. In the ER workup revealed hypokalemia with K=2.4, associated EKG changes. Glucose of 386 ER Course: NSS, KCl 30mEq Principal Diagnosis Abdominal pain NOS MSK chest pain MSK back pain Discharge Exam Constitutional WD/WN, vitals as above Eyes EOM intact bilaterally; no conjunctival abnormality ENMT external ear and nose normal, oropharynx normal Neck trachea midline, no thyromegaly normal visual inspection Respiratory normal respiratory effort, lungs clear to auscultation no respiratory distress Cardiovascular RRR, no murmur, no edema Gastrointestinal (Abdomen) Inspection/Auscultation: abdomen normal to inspection; abdomen not distended Percussion/Palpation: + abdomen tender (Diffuse) and abdomen soft; no guarding and abdomen not rigid Musculoskeletal no cyanosis or clubbing, extremities motor strength 5/5 Skin no rashes, warm and dry Neurologic moves all extremities and awake Psychiatric Orientation: alert, oriented to person and cooperative Discharge Data Allergies Allergy/AdvReac Type Severity Reaction Status Date / Time albiglutide [From Tanzeum] AdvReac Unknown Unknown Verified 05/21/21 22:02 dulaglutide [From Trulicity] AdvReac Unknown Unknown Verified 05/21/21 22:02 Consultations 05/21/21 23:15 ED Decision to Admit Stat Ordered Studies 05/22/21 04:07 US liver Routine Hospital Course (1) Right upper quadrant abdominal pain: Extensive workup inpatient [address] to include [address] abdomen, CTA abdomen/pelvis, MRCP, EGD, GI consultation. No obvious source of discomfort elucidated. Thought possibly secondary to gastroenteritis, gastroparesis, less likely gastritis. Patient now endorses occasional post-prandial regurgitation and nausea - could be secondary to gastroparesis. - RUQ U/S on 05/22 without any issues. - Stop Pepcid 40mg daily - Do not think it is due to gastritis. - Stop Carafate QID - Do not think it is due to gastritis. -> While important not to miss, atypical angina seems unlikely. She briskly walked the halls with RN. She reports some shortness of breath, but none of her GI symptoms. - Gastric emptying study on 05/24 was normal. - On 05/24 & 05/25, the patient reported the pain was "all over" belly. Abdomen was diffusely tender to even light palpation. Diagnostic considerations at this point are: 1) Constipation, 2) Lactose intolerance, or 3) Possibly celiac. - Will start Miralax HS -> Patient declined because she said someone told her it would give her "diarrhea." I went through twice why it was important to have consistent, soft (not watery) BMs every day. KUB on 05/25 did show modest stool burden, so I re-emphasized this point. - Ordered TTG -> Pending; can f/u with PCP. - Lactose-free diet -> Encouraged her to avoid lactose and keep a food journal to see which foods cause the most stomach pain. I also asked about IPV and if she felt safe at home (looking for any reason that she would want to stay in the hospital). She denied this and reported no safety concerns at home. On 05/25, the patient reported chest pain overnight which was reproducible on palpation. EKG and troponin negative. She reported back pain and stomach pain in the morning. She requested to stay in the hospital another day. Given our extensive diagnostic work-up, I told her we could not keep her in the hospital further. We have not found an etiology for her stomach pain (apart from the 3 ongoing possible ones). There is no life or health-threatening etiology that we can determine. I encouraged her to follow the steps we spoke about and follow up with her PCP. (2) Hypomagnesemia: Mg=1.3 -Repletion with 6gm IV - ordered -Repleted Mg (3) CAD (coronary artery disease): S/p NSTEMI 10/2020 s/p CHANTAL placement to LAD. Patient on DAPT with ASA and Brillinta. - Continue ASA, Brilinta - Continue metoprolol, lisinopril, atorvastatin (4) Depression: Chronic. - Continue buspirone TID & fluvoxamine HS - Continue clonazepam (PDMP checked) (5) Hypothyroidism: Chronic. Stable by normal TSH October 2020. - Continue Synthroid 88mcg daily (6) Hypertension: Blood pressure mildly elevated today at 150/75. - Continue metoprolol 25mg po BID, lisinopril 40mg po qAM - Continue to monitor (7) Diabetes type 2, uncontrolled: Improved control - last HgbA1C was 10.8% on 04/04/21 (down from 15.8% in October 2020). Elevated blood sugar presently at 386 which is probably fairly near baseline value given her most recent A1C. Patient was seen by Diabetes Education team during last admission. - Hold Farxiga while inpatient - Lantus 15u BID - Goal blood sugar 100 - 140 -> Sugars 220 - 230 in last 24 hours, but improving. Keep sliding scale steady today. Total Time Total Time Spent Total Time Spent (In Minutes): 35 Discharge Plan Discharge Items Patient Disposition: Home - Self-Care Reason For Visit: RUQ PAIN Discharge Diagnosis: Abdominal pain Activity: Resume your previous activity Non-emergency contact: Primary Care Provider Call non-emergency contact if: your symptoms worsen Follow-up/Referrals: Omer Marroquin MD [Primary Care Provider] - 06/01/21 11:00 am (Appointment with Lisa Robertson PA-C) Diet: Carb Consistent or DM2 and Heart Healthy Addtl Attending Provider Instructions: Ms. Lua, You were admitted to the hospital with abdominal pain. This pain improved while you were here in the hospital, but then also got worse again. We were worried about the area of your liver where your gallbladder was. Luckily, this area seems totally normal. Because you were reporting vomiting and regurgitating food, we also were worried about if your stomach was not moving food down to the intestines very well. Luckily this test (called a gastric emptying study) was totally normal! We are now thinking of 3 possible issues: 1) Constipation - Please take Miralax (the medication in the pharmacy with the purple cap) every evening. If you have diarrhea, skip your dose that evening. If you don't have a soft bowel movement, take a larger dose that evening. Your stomach x-ray showed stool in your GI tract, so I really think having a one, soft BM per day will help your stomach pain. 2) Practice a lactose-free diet for at least 2 weeks. If you are lactose intolerant, this could help improve your pain. 3) This morning, we sent a blood test that can test for celiac disease. It will be back in about 1 week, and you can see your PCP for the result. I'm sorry we couldn't pin down your abdominal pain. I hope that with these three things, we can help you out. Luckily, there is no indication that your pain is a life-threatening or could cause long-term injury to you. Please follow-up with your PCP in the next 1-2 weeks to be sure you are doing well. Pending Studies at Discharge: No Stand-Alone Forms: [employer], Smoking Cessation Medications and DC Order Prescriptions: New polyethylene glycol 3350 [Miralax] 17 gram/dose powder 17 g PO HS Qty: 119 RF: 0 Continued buspirone 10 mg tablet 10 mg PO TID Qty: 90 RF: 11 nystatin-triamcinolone 100,000-0.1 unit/gram-% ointment 1 applic topical ONCE Qty: 15 RF: 1 Brilinta 90 mg tablet 90 mg PO BID 90 Days Qty: 180 RF: 3 clonazepam [Klonopin] 0.5 mg tablet 0.5 mg PO QAM Qty: 30 RF: 0 metoprolol tartrate 25 mg tablet 25 mg PO BID 30 Days Qty: 180 RF: 1 Lantus Solostar U-100 Insulin 100 unit/mL (3 mL) insulin pen 30 unit subcut HS RF: 0 insulin lispro [Humalog KwikPen Insulin] 100 unit/mL insulin pen 20 unit subcut TID Qty: 15 RF: 3 nystatin 100,000 unit/gram powder 1 applic topical BID Qty: 60 RF: 3 atorvastatin 80 mg tablet 80 mg PO QAM RF: 0 levothyroxine 88 mcg tablet 88 mcg PO QAM RF: 0 fluvoxamine 50 mg tablet 50 mg PO HS RF: 0 metoclopramide HCl 5 mg Tablet 5 mg PO AC Qty: 30 RF: 0 ondansetron 4 mg Tablet,Disintegrating 4 mg PO Q6H PRN (Reason: nausea and vomiting) Qty: 20 RF: 0 celecoxib [Celebrex] 100 mg capsule 100 mg PO DAILY Qty: 10 RF: 0 aspirin 81 mg tablet,delayed release (DR/EC) 81 mg PO QAM RF: 0 Farxiga 10 mg tablet 10 mg PO QAM RF: 0 lisinopril 40 mg tablet 40 mg PO QAM 30 Days Qty: 30 RF: 0 lidocaine 5 % Adhesive Patch,Medicated 3 patch transdermal QAM Qty: 15 RF: 0 Discharge Orders: Discharge Order (Routine); Ordered 05/25/21 Ordered By: Lauro Bradley Admission Data Admit Date/Time: 05/21/21 23:55 Attending Provider: Lauro Bradley Admit Provider: Angela Kraus Primary Care Provider: Omer Marroquin Other Providers: Lauro Bradley Other Interventions: Discharge Summary Assessment (RN) Last Done: 05/25/21 11:07 Coding Level of Care Code D/C DAY MANAGEMENT >30 MINS Diagnoses Right upper quadrant abdominal pain R10.11 Hypomagnesemia E83.42 CAD (coronary artery disease) I25.10 Associated angina: unspecified whether angina present Coronary Disease-Associated Artery/Lesion type: [place] artery [place] vs. transplanted heart: [place] heart Depression F32.9 Hypothyroidism E03.9 Hypertension I10 Diabetes type 2, uncontrolled E11.65
--- NOTE | 2021-05-25 11:04 | XRay Report ---
KUB HISTORY: Constipation COMPARISON: KUB 06/08. FINDINGS: The bowel gas pattern is unremarkable. There are no dilated loops of small bowel to suggest an obstruction. No renal calculi. No ureteral calculi. Calcifications in the deep pelvis likely rep resent phleboliths. These remain unchanged. Calcified uterine fibroid again noted. Moderate well-form ed stool seen throughout the colon and rectum. Prior cholecystectomy. No pneumoperitoneum or pneumato sis. IMPRESSION: 1. Moderate well-formed stool seen throughout the colon and rectum. 2. No evidence for bowel obstruction. ACT 112: Negative or not required by law. Electronically signed by: Omid Pedroza M.D. 05/25/2021 11:03 AM
--- NOTE | 2021-05-26 12:30 | Electrocardiogram Report ---
Test Reason : Blood Pressure : / mmHG Vent. Rate : 072 BPM Atrial Rate : 072 BPM P-R Int : 170 ms QRS Dur : 076 ms QT Int : 416 ms P-R-T Axes : 040 042 -36 degrees QTc Int : 455 ms Normal sinus rhythm T wave abnormality, consider inferior ischemia T wave abnormality, consider anterolateral ischemia Abnormal ECG When compared with ECG of 21-MAY-2021 20:45, No significant change Confirmed by Macho Gates ([id number]) on 05/26/2021 12:30:24 PM Referred By: REFERRED SELF Confirmed By:Macho Gates
== END 2021-05-25 14:39 | disposition home or self-care (01) | DRG 74 ==
LOC: ED 20:01 → 2N 23:55 → SUATTDRO 23:55 → 2N 05-22 03:37

== ENCOUNTER 2021-07-01 16:14 | Inpatient (IN) ==
--- NOTE | 2021-07-01 16:40 | Emergency Department Note ---
Impression & Plan Acute hypokalemia, Nausea vomiting and diarrhea, Hypomagnesemia, Acute hyperglycemia ED Provider Note NAME: ELIAN SORENSEN AGE: 60 SEX: F : 1960 ARRIVES VIA: Walk-In INFORMANT: Patient, ED PROVIDER(S): Sincere Gatica MD Chief Complaint: Nausea vomiting diarrhea HPI: Patient presents with the above complaints. The patient states that her diarrhea was present yesterday but seem to be worse today with several nonbloody bowel movements today. The patient has had associated nausea and vomiting. Pat ient states that she is able to tolerate liquids is unable to tolerate solids very well. Patient denies any alcohol or tobacco use. The patient states that she might have some associated abdominal discomfort and did have a recent D&C completed. Patient denies any headache or neck pain. The patient denies any current vaginal bleeding or discharge. Patient states that for the D&C they did obtain a biopsy and states that this was unremarkable. The patient relates that she has a prior history of an EGD that was completed within the last year but that is not any aware of any concerning findings. Patient states that her pain is more right-sided in nature and is nonradiating. No recent falls or trauma. The patient is not take anything for pain at home. Patient denies any stream or well water, known sick contacts, recent travel, or recent antibiotic use. ROS: See HPI for pertinent positives and negatives. A total of 10 systems were reviewed and otherwise negative. Past medical history: See below Surgical history: See below Social history: See below Physical Exam: GENERAL: NAD, wearing a mask, non-toxic. EYE EXAM: Normal conjunctiva. PERRL, no anisocoria and EOM's grossly intact w/o pain. [OROPHARYNX: Moist mucus membranes. Poor dentition. NECK: Supple, no nuchal rigidity, no adenopathy, non-tender. No signs of meningismus. LUNGS: Clear to auscultation. Normal chest wall mechanics. HEART: NSR, no MRG. ABDOMEN: Abdomen soft, non-tender, normo-active bowel sounds, no masses, no rebound or guarding. BACK: No CVA TTP. SKIN: No rashes and no bruising. UPPER EXTREMITIES: Upper extremities are grossly normal. LOWER EXTREMITIES: Grossly normal, no edema. NEURO EXAM: A&O x3, cranial nerves II-XII grossly intact, normal speech, moves all 4 extremities on command w/o issue. Differential diagnoses: Gastroenteritis, food borne illness, infections, appendicitis, diverticulitis, inflammatory bowel disease, obstruction, GI bleed, biliary pathology, volvulus, as well as other pathologies. Course: Patient was seen and evaluated the bedside. Full history physical exam was performed. EKG interpreted by me Normal sinus rhythm, rate of 61, normal intervals, normal axis, slight depression inferiorly and laterally. ST depression appears grossly unchanged from prior EKG completed May 25, 2021. Imaging Studies: See Below Cardiac monitoring: An order was placed for continuous cardiac monitoring. The monitor shows a rate of 67 with sinus rhythm. MDM: Patient presents due to concern for nausea vomiting and diarrhea. Patient did have blood work completed along with CT abdomen pelvis. Patient's blood work does shows significant hypokalemia 2.3 and associated hyperglycemia. Magnesium was added and the patient was ordered potassium IV n.p.o. for replacement. Patient does have a white count of 12 with mild elevated hemoglobin. IV fluids were ordered. Given the patient's significant hyperglycemia with associated hyperkalemia do not think it would be of benefit for the patient to go home as increased insulin will cause a further decrease in her potassium. Patient's magnesium was low at 1.3. This was also ordered for repleted and IV. CT did not show any evidence of obstruction or diverticulitis. The patient's appendix is normal. No hydronephrosis. I did speak the on-call hospitalist Dr. Fair and the patient was admitted to the medicine service. Past Med/Surg History Medical History Albuminuria Anxiety CAD (coronary artery disease) No remaining occlusive disease after 2 LAD drug eluting stents 10/22/20. Follows with Dr. Harris Chronic headaches Depression Diabetes type 2, uncontrolled IDDM Diabetic nephropathy associated with type 2 diabetes mellitus Dyslipidemia Hypertension Hypothyroidism NSTEMI (non-ST elevated myocardial infarction) 10/22/2020 s/p 2 CHANTAL Obesity Osteoarthritis Tobacco abuse Vulvitis Surgical History History of cardiac catheterization 10/22/2020 Dominant: Right Left Main (% Stenosis): Normal LAD (% Stenosis): Proximal (99) and Mid (75) Circumflex (% Stenosis): Normal (luminal irregularities) RCA (% Stenosis): Normal (Luminal irregularities) 2 CHANTAL to LAD History of cholecystectomy History of dental surgery History of tonsillectomy S/P coronary artery stent placement 2 CHANTAL to LAD 10/22/2020 Family History Unknown Diabetes Thyroid disorder Father Diabetes Other No family history of adverse response to anesthesia Denies family history of Ovarian cancer Prostate cancer Breast cancer Colorectal cancer Uterine cancer Social History Smoking Status: Current every day smoker Tobacco Type: Cigarettes packs per day: 0.5; Cigarettes Per Day: 10; Second Hand Exposure: No; Hx Alcohol Use: No Hx Substance Use: No Preferred Language: German Communication Ability: Effective Second Shift Supervisor Required: No Beliefs That Will Affect Care: None marital status: Single Current Living Situation: Alone Feels Safe at Home: Yes Safety Concerns Comment: Gets nervous sometimes because she lives alone, gets shaky from anxiety caffeine: Yes Dental Care, Regularly: No Physical Activity Frequency: Does not Exercise Seatbelt Use: always Sunscreen Use: No Assistive Devices: None Allergies Allergies Allergy/AdvReac Type Severity Reaction Status Date / Time dulaglutide [From Trulicity] AdvReac Intermediate stomach Verified 07/01/21 17:19 pain albiglutide [From Tanzeum] AdvReac Unknown Unknown Verified 07/01/21 17:19 Home Meds Home Medications Medication Instructions Recorded Confirmed aspirin 81 mg tablet,delayed 81 mg PO QAM 10/16/20 07/01/21 release insulin glargine 100 unit/mL (3 30 unit SUBCUT HS milliliter 12/14/20 07/01/21 mL) subcutaneous pen (Lantus Solostar U-100 Insulin) atorvastatin 80 mg tablet 80 mg PO QAM 03/15/21 07/01/21 fluvoxamine 50 mg tablet 50 mg PO HS 03/15/21 07/01/21 levothyroxine 88 mcg tablet 88 mcg PO QAM 03/15/21 07/01/21 metoclopramide HCl 5 mg tablet 5 mg PO AC 06/15/21 07/01/21 (Reglan) Previous Rx's Medication Instructions Recorded buspirone 10 mg tablet 10 mg PO TID #90 tab 10/24/20 lisinopril 40 mg tablet 40 mg PO QAM 30 Days #30 tab 10/25/20 nystatin-triamcinolone 100,000 1 applic TOPICAL ONCE #15 g 11/10/20 unit/gram-0.1 % topical ointment ticagrelor 90 mg tablet (Brilinta) 90 mg PO BID 90 Days #180 tab 11/21/20 nystatin 100,000 unit/gram topical 1 applic TOPICAL BID #60 g 03/14/21 powder celecoxib 100 mg capsule (Celebrex) 100 mg PO DAILY #10 cap 04/14/21 metoprolol tartrate 25 mg tablet 25 mg PO BID 30 Days #180 tab 05/17/21 insulin regular hum U-500 conc 30 unit SUBCUT BID 30 Days #6 ml 05/29/21 (Humulin R U-500 (Conc) Insulin Kwikpen) clonazepam 0.5 mg tablet (Klonopin) 0.5 mg PO QAM #30 tab 06/11/21 dapagliflozin 10 mg tablet 10 mg PO QAM #30 tab 06/15/21 (Farxiga) Results & Data (ED) Vital Signs Vital Signs - 24 hr 07/01/21 16:22 07/01/21 16:49 07/01/21 16:55 Pulse Rate 76 70 Pulse Rate [Apical] 79 Pulse Rhythm Regular Respiratory Rate 18 20 18 Blood Pressure 124/73 Blood Pressure [Right Arm] 147/86 H Blood Pressure Mean 90 Blood Pressure Mean [Right Arm] 106 Blood Pressure Position Lying Pulse Oximetry 97 97 Oxygen Delivery Method Room Air Room Air Sepsis Recent Fever Within 48 Hours No Sepsis New/Unexplained Change in Mental Status No Sepsis Action Taken by Nursing No Action Required 07/01/21 18:54 Pulse Rate Pulse Rate [Apical] 62 Pulse Rhythm Respiratory Rate 20 Blood Pressure Blood Pressure [Right Arm] 111/72 Blood Pressure Mean Blood Pressure Mean [Right Arm] 85 Blood Pressure Position Pulse Oximetry 96 Oxygen Delivery Method Room Air Sepsis Recent Fever Within 48 Hours Sepsis New/Unexplained Change in Mental Status Sepsis Action Taken by [facility] Medications Current Medication List: was personally reviewed by me Laboratory Data Attestation: I reviewed the patient's lab results. Result diagrams: 07/01/21 16:42 07/01/21 16:42 Lab Results 07/01/21 07/01/21 07/01/21 Range/Units 16:42 16:42 16:42 WBC 12.21 H (4.8-10.8) K/uL RBC 5.37 (4.2-5.4) M/uL Hgb 16.1 H (12.0-16.0) g/dL Hct 44.9 (37-47) % MCV 83.6 (80-100) fL MCH 30.0 (25-34) pg MCHC 35.9 (32-36) g/dL RDW Std Deviation 41.6 (36.4-46.3) fL RDW Coeff of Umair 13.8 (11.5-14.5) % Plt Count 342 (130-400) K/uL MPV 11.1 H (7.4-10.4) fL Immature Gran % (Auto) 0.3 % Neut % (Auto) 80.0 % Lymph % (Auto) 12.4 % Merrick % (Auto) 5.5 % Eos % (Auto) 1.6 % Baso % (Auto) 0.2 % Neut # (Auto) 9.77 H (1.4-6.5) K/uL Lymph # (Auto) 1.51 (1.2-3.4) K/uL Merrick # (Auto) 0.67 H (0.11-0.59) K/uL Eos # (Auto) 0.20 (0-0.5) K/uL Baso # (Auto) 0.02 (0-0.2) K/uL Immature Gran # (Auto) 0.04 H (0.00-0.02) K/uL Sodium 136 (136-145) mmol/L Potassium 2.3 L* (3.5-5.1) mmol/L Chloride 92 L (98-107) mmol/L Carbon Dioxide 30 (21-32) mmol/L Anion Gap 14 H (3-11) BUN 6 (6-23) mg/dl Creatinine 0.87 (0.6-1.2) mg/dl Est Cr Clr Drug Dosing 69.8 ml/min Est GFR ( Amer) 83.3 ml/min Est GFR (Non-Af Amer) 71.9 ml/min BUN/Creatinine Ratio 6.9 L (10-20) Glucose 446 H* (70-99(Fasting)) mg/dl Calcium 8.9 (8.5-10.1) mg/dl Magnesium (1.7-2.4) mg/dl Total Bilirubin 1.0 (0.2-1.0) mg/dl AST 18 (13-39) U/L ALT 18 (7-52) U/L Alkaline Phosphatase 169 H (34-104) U/L Total Protein 8.0 (6.0-8.3) gm/dl Albumin 4.0 (3.4-5.0) gm/dl Globulin 4.0 (2.5-4.0) gm/dl Albumin/Globulin Ratio 1.0 (0.9-2) Lipase 14 (11-82) U/L Urine Color Yellow Urine Appearance Clear (Clear) Urine pH 6.5 (4.5-7.5) Ur Specific [place] 1.036 H (1.000-1.030) Urine Protein Negative (Negative) Urine Glucose (UA) 3+ H (Negative) Urine Ketones Negative (Negative) Urine Blood Negative (Negative) Urine Nitrite Negative (Negative) Urine Bilirubin Negative (Negative) Urine Urobilinogen Negative (Negative) Ur Leukocyte Esterase Negative (Negative) 07/01/21 Range/Units 16:42 WBC (4.8-10.8) K/uL RBC (4.2-5.4) M/uL Hgb (12.0-16.0) g/dL Hct (37-47) % MCV (80-100) fL MCH (25-34) pg MCHC (32-36) g/dL RDW Std Deviation (36.4-46.3) fL RDW Coeff of Umair (11.5-14.5) % Plt Count (130-400) K/uL MPV (7.4-10.4) fL Immature Gran % (Auto) % Neut % (Auto) % Lymph % (Auto) % Merrick % (Auto) % Eos % (Auto) % Baso % (Auto) % Neut # (Auto) (1.4-6.5) K/uL Lymph # (Auto) (1.2-3.4) K/uL Merrick # (Auto) (0.11-0.59) K/uL Eos # (Auto) (0-0.5) K/uL Baso # (Auto) (0-0.2) K/uL Immature Gran # (Auto) (0.00-0.02) K/uL Sodium (136-145) mmol/L Potassium (3.5-5.1) mmol/L Chloride (98-107) mmol/L Carbon Dioxide (21-32) mmol/L Anion Gap (3-11) BUN (6-23) mg/dl Creatinine (0.6-1.2) mg/dl Est Cr Clr Drug Dosing ml/min Est GFR ( Amer) ml/min Est GFR (Non-Af Amer) ml/min BUN/Creatinine Ratio (10-20) Glucose (70-99(Fasting)) mg/dl Calcium (8.5-10.1) mg/dl Magnesium 1.3 L (1.7-2.4) mg/dl Total Bilirubin (0.2-1.0) mg/dl AST (13-39) U/L ALT (7-52) U/L Alkaline Phosphatase (34-104) U/L Total Protein (6.0-8.3) gm/dl Albumin (3.4-5.0) gm/dl Globulin (2.5-4.0) gm/dl Albumin/Globulin Ratio (0.9-2) Lipase (11-82) U/L Urine Color Urine Appearance (Clear) Urine pH (4.5-7.5) Ur Specific [place] (1.000-1.030) Urine Protein (Negative) Urine Glucose (UA) (Negative) Urine Ketones (Negative) Urine Blood (Negative) Urine Nitrite (Negative) Urine Bilirubin (Negative) Urine Urobilinogen (Negative) Ur Leukocyte Esterase (Negative) Administered Medications Potassium Chloride (K Esa / Wtr) 10 meq in 100 mls @ 100 mls/hr IV Q1H TONI; Protocol Stop: 07/01/21 19:59 Last Admin: 07/01/21 19:16 Dose: 100 mls/hr Documented by: [id number] Infusion: 07/01/21 19:16 Dose: 0 mls/hr Documented by: [id number] Admin: 07/01/21 18:09 Dose: 100 mls/hr Documented by: [id number] Magnesium Sulfate/Dextrose (Magnesium Sulfate / D5w) 1 gm in 100 mls @ 50 mls/hr IV Q2H TONI Stop: 07/02/21 00:59 Last Admin: 07/01/21 19:16 Dose: 200 mls/hr Documented by: [id number] Discontinued Medications Sodium Chloride (Nss) 500 mls @ 999 mls/hr IV .Q31M STA Stop: 07/01/21 17:22 Last Infusion: 07/01/21 17:27 Dose: 0 mls/hr Documented by: [id number] Admin: 07/01/21 16:59 Dose: 999 mls/hr Documented by: [id number] Ioversol (Optiray 320 100ml) 94 ml IV ONCE ONE Stop: 07/01/21 17:55 Last Admin: 07/01/21 18:39 Dose: Not Given Documented by: [id number] Ondansetron HCl (Ondansetron Inj 2 Mg/Ml 2 Ml Vial) 4 mg IV NOW STA Stop: 07/01/21 16:53 Last Admin: 07/01/21 16:59 Dose: 4 mg Documented by: [id number] Potassium Chloride (Potassium Chloride 20 Meq/15 Ml Udc) 40 meq PO NOW STA Stop: 07/01/21 18:01 Last Admin: 07/01/21 18:09 Dose: 40 meq Documented by: [id number] Imaging Data Radiologist's Impression: Abdomen/Pelvis CT 07/01/21 16:[address] WITH IV CONTRAST CT DOSE: 1082.98 mGy.cm HISTORY: Nausea. Vomiting. Diarrhea. TECHNIQUE: Multiaxial CT images of the abdomen and pelvis were performed following the use of intravenous contrast. A dose lowering technique was utilized adhering to the principles of ALARA. COMPARISON STUDY: Abdomen and pelvis CT 04/09/2021. FINDINGS: The lung bases are clear. No pneumoperitoneum. No pneumatosis. No suspicious lytic or blastic osseous lesions. Small fat-containing midline epigastric hernia remains unchanged. Cholecystectomy. The liver, pancreas, spleen, and adrenal glands are unremarkable. Mild bilateral cortical renal scarring/thinning. Stable small bilateral renal hypodense lesions. These favor cysts. No hydronephrosis. Calcified uterine fibroid again noted. Normal ovaries. No retroperitoneal lymphadenopathy. The abdominal aorta is normal in caliber. Mild bilateral perinephric edema which is likely chronic. Normal bladder. No bowel wall thickening or obstruction. Colonic diverticulosis. No evidence for acute diverticulitis. Normal appendix. IMPRESSION: 1. No bowel wall thickening or obstruction. 2. Colonic diverticulosis. No evidence for acute diverticulitis. 3. Normal appendix. 4. Prior cholecystectomy. 5. No hydronephrosis. 6. Additional findings as described above. ACT 112: Negative or not required by law. Electronically signed by: Omid Pedroza M.D. 07/01/2021 6:13 PM Discharge Plan Visit Data Chief Complaint: Abdominal Pain Stated Complaint: R SIDE ABDOMINAL PAIN, DISTENDED, VOMITING Discharge Problem: Acute hypokalemia, Nausea vomiting and diarrhea, Hypomagnesemia, Acute hyperglycemia Patient Disposition: Admitted As Inpatient Forms Stand Alone Forms: [facility] Prescriptions Prescriptions: No Action buspirone 10 mg tablet 10 mg PO TID Qty: 90 RF: 11 nystatin-triamcinolone 100,000-0.1 unit/gram-% ointment 1 applic topical ONCE Qty: 15 RF: 1 Brilinta 90 mg tablet 90 mg PO BID 90 Days Qty: 180 RF: 3 metoprolol tartrate 25 mg tablet 25 mg PO BID 30 Days Qty: 180 RF: 1 Humulin R U-500 (Conc) Kwikpen 500 unit/mL (3 mL) insulin pen 30 unit subcut BID 30 Days Qty: 6 RF: 5 clonazepam [Klonopin] 0.5 mg tablet 0.5 mg PO QAM Qty: 30 RF: 0 Farxiga 10 mg tablet 10 mg PO QAM Qty: 30 RF: 2 Lantus Solostar U-100 Insulin 100 unit/mL (3 mL) insulin pen 30 unit subcut HS RF: 0 nystatin 100,000 unit/gram powder 1 applic topical BID Qty: 60 RF: 3 atorvastatin 80 mg tablet 80 mg PO QAM RF: 0 levothyroxine 88 mcg tablet 88 mcg PO QAM RF: 0 fluvoxamine 50 mg tablet 50 mg PO HS RF: 0 metoclopramide HCl [Reglan] 5 mg tablet 5 mg PO AC RF: 0 celecoxib [Celebrex] 100 mg capsule 100 mg PO DAILY Qty: 10 RF: 0 aspirin 81 mg tablet,delayed release (DR/EC) 81 mg PO QAM RF: 0 lisinopril 40 mg tablet 40 mg PO QAM 30 Days Qty: 30 RF: 0 Referrals Referrals: Omer Marroquin MD [Primary Care Provider] -
[2021-07-01] MEDS ORDERED: SODIUM CHLORIDE 0.9% 500 ML IV STA (16:52)
[2021-07-01] MEDS ORDERED: ONDANSETRON INJ 2 MG/ML 2 ML VIAL IV STA (16:52)
[2021-07-01 17:00] LABS: Basophils # (auto) 0.02 K/uL (0-0.2); Basophils % (auto) 0.2 %; Eosinophils % (auto) 1.6 %; Hematocrit (blood only) 44.9 % (37-47); Hemoglobin 16.1 g/dL (12.0-16.0); Immature Granulocytes # (auto) 0.04 K/uL (0.00-0.02); Immature Granulocytes % (auto) 0.3 %; Lymphocytes # (auto) 1.51 K/uL (1.2-3.4); Lymphocytes % (auto) 12.4 %; Mean Corpuscular Hgb Conc 35.9 g/dL (32-36); Mean Corpuscular Volume 83.6 fL (80-100); Mean Platelet Volume 11.1 fL (7.4-10.4); Monocytes # (auto) 0.67 K/uL (0.11-0.59); Monocytes % (auto) 5.5 %; Neutrophils # (auto) 9.77 K/uL (1.4-6.5); Platelet Count 342 K/uL (130-400); RDW Coefficient of Variation 13.8 % (11.5-14.5); RDW Standard Deviation 41.6 fL (36.4-46.3); Red Blood Count 5.37 M/uL (4.2-5.4); White Blood Count 12.21 K/uL (4.8-10.8)
[2021-07-01 17:10] LABS: Appearance Urine Clear (Clear); Bilirubin Urine Negative (Negative); Blood Urine Negative (Negative); Color Urine Yellow; Glucose Urine UA 3+ (Negative); Ketones Urine Negative (Negative); Leukocyte Esterase Urine Negative (Negative); Nitrite Urine Negative (Negative); Protein Urine Negative (Negative); Specific Gravity Urine 1.036 (1.000-1.030); Urobilinogen Urine Negative (Negative); pH Urine 6.5 (4.5-7.5)
[2021-07-01 17:24] LABS: BUN Creatinine Ratio 6.9 (10-20); Calcium 8.9 mg/dl (8.5-10.1); Creatinine Clr Calc Pharmacy 69.8 ml/min; Est GFR (African American) 83.3 ml/min; Est GFR (Non-African American) 71.9 ml/min; Potassium 2.3 mmol/L (3.5-5.1)
[2021-07-01] MEDS ORDERED: OPTIRAY 320 100ml IV ONE (17:54)
[2021-07-01] MEDS ORDERED: POTASSIUM CHLORIDE 20 MEQ/15 ML UDC PO STA ×2 (18:00→19:11)
[2021-07-01] MEDS: POTASSIUM CHLORIDE / WTR 10 MEQ/100 ML PLCT IV SCH ×2 (18:09→19:16)
--- NOTE | 2021-07-01 18:15 | CT Scan Report ---
ABDOMEN AND PELVIS CT WITH IV CONTRAST CT DOSE: 1082.98 mGy.cm HISTORY: Nausea. Vomiting. Diarrhea. TECHNIQUE: Multiaxial CT images of the abdomen and pelvis were performed following the use of intrave nous contrast. A dose lowering technique was utilized adhering to the principles of ALARA. COMPARISON STUDY: Abdomen and pelvis CT 04/09/2021. FINDINGS: The lung bases are clear. No pneumoperitoneum. No pneumatosis. No suspicious lytic or blast ic osseous lesions. Small fat-containing midline epigastric hernia remains unchanged. Cholecystectomy . The liver, pancreas, spleen, and adrenal glands are unremarkable. Mild bilateral cortical renal sca rring/thinning. Stable small bilateral renal hypodense lesions. These favor cysts. No hydronephrosis. Calcified uterine fibroid again noted. Normal ovaries. No retroperitoneal lymphadenopathy. The abdom inal aorta is normal in caliber. Mild bilateral perinephric edema which is likely chronic. Normal anaid dder. No bowel wall thickening or obstruction. Colonic diverticulosis. No evidence for acute divertic ulitis. Normal appendix. IMPRESSION: 1. No bowel wall thickening or obstruction. 2. Colonic diverticulosis. No evidence for acute diverticulitis. 3. Normal appendix. 4. Prior cholecystectomy. 5. No hydronephrosis. 6. Additional findings as described above. ACT 112: Negative or not required by law. Electronically signed by: Omid Pedroza M.D. 07/01/2021 6:13 PM
--- NOTE | 2021-07-01 18:58 | History & Physical Report ---
Date of Service July 01, 2021 Assessment & Plan (1) Acute hypokalemia: Plan: Secondary to vomiting and diarrhea KCl 40 meq PO + 20 meq IV given in ER, additional 40 meq PO now Repeat labs in AM Monitor for arrhythmias on telemetry (2) Hypomagnesemia: Plan: Mg level 1.3. Previously 6g IV Mg sulphate increased to 2.0 last admission therefore will prescribe the same. Repeat level in AM (3) Nausea vomiting and diarrhea: Plan: Patient needs to keep a food diary Given association with bread and dairy will place on lactose intolerant and gluten free diet Prior TTG IgA negative Ondansetron for nausea Stool PCR pending (4) Acute hyperglycemia: Plan: Will hold off insulin currently while replace potassium Consult pharmacy for glycemic control once she has a bed on med/tele HbA1C 10.8 [04/04/21], repeat with AM labs (5) Diabetes type 2, uncontrolled: Plan: As above (6) Right upper quadrant abdominal pain: Plan: Chronic - thoroughly worked up previously. Suspect from food intolerence when she gets diarrhea. Prior NSTEMI in October 2020 however this was with chest pain and troponins negative with the same reproducible RUQ abdominal pain last admission (7) Vitamin B12 deficiency: Plan: Start cyanocobalamin 500 mcg PO daily (8) Vitamin D deficiency: Plan: Previously diagnosed but not on supplementation Start cholecalciferol 1000 units QAM (9) Hypothyroidism: Plan: TSH last noted in 2019, will repeat with AM labs Continue levothyroxine 88 mcg PO daily (10) Hypertension: Plan: Continue metoprolol tartrate 25 mg p.o. twice daily and lisinopril 40 mg p.o. daily Plan: VTE prophylaxis - Lovenox 40 mg SQ daily Diet - clear liquids, low fiber, gluten-free, lactose intolerant, type 2 diabetes Disposition - admit to med telemetry Admission and Anticipated Discharge Date Admission Date: July 01, 2021 History of Present Illness Chief Complaint: Nausea, vomiting, diarrhea Primary Care Provider: Omer Marroquin MD Yolanda Lua is a 60 year old female who presents to the ER with abdominal pain, nausea, vomiting and diarrhea. She has had multiple admissions for similar presentations with extensive workup including CT, MRCP, liver ultrasounds, EGD without significant findings other than chronic gastritis. She was most recently admitted May 21 - 2021 and diagnosed with non-specific abdominal pain, MSK back pain and MSK chest pain. She reports even after discharge not feeling well. Reports her "stomach acting up" for last 2 months. Diarrhea (not watery) "really bad" yesterday going 3-4 times. Continuous vomiting when she eats for the last day but vomiting generally worse for the last week. The last time she felt well was for one day last week. She does not keep a food diarrhea but reports bread/cereals usually sets off her symptoms. Occasional dairy also causes her to have the diarrhea. Cookies and crackers appear to be ok. When she drinks nothing bothers her. In the ER she was noted to have similar electrolyte abnormalities to last admission with potassium 2.3 and magnesium 1.3. She was given Potassium chloride 10 meq IV x2 and Potassium chloride 40 meq PO and referred to medicine for admission and ongoing management of nausea, vomiting, diarrhea, hypokalemia and hyperglycemia. Allergies Allergy/AdvReac Type Severity Reaction Status Date / Time dulaglutide [From [facility]] AdvReac Intermediate stomach Verified 07/01/21 17:19 pain albiglutide [From [facility]] AdvReac Unknown Unknown Verified 07/01/21 17:19 Home Medications Medication Instructions Recorded Confirmed Type aspirin 81 mg tablet,delayed 81 mg PO QAM 10/16/20 07/01/21 History release buspirone 10 mg tablet 10 mg PO TID #90 tab 10/24/20 07/01/21 Rx lisinopril 40 mg tablet 40 mg PO QAM 30 Days #30 tab 10/25/20 07/01/21 Rx nystatin-triamcinolone 100,000 1 applic TOPICAL ONCE #15 g 11/10/20 07/01/21 Rx unit/gram-0.1 % topical ointment ticagrelor 90 mg tablet (Brilinta) 90 mg PO BID 90 Days #180 tab 11/21/20 07/01/21 Rx insulin glargine 100 unit/mL (3 30 unit SUBCUT HS milliliter 12/14/20 07/01/21 History mL) subcutaneous pen (Lantus Solostar U-100 Insulin) nystatin 100,000 unit/gram topical 1 applic TOPICAL BID #60 g 03/14/21 07/01/21 Rx powder atorvastatin 80 mg tablet 80 mg PO QAM 03/15/21 07/01/21 History fluvoxamine 50 mg tablet 50 mg PO HS 03/15/21 07/01/21 History levothyroxine 88 mcg tablet 88 mcg PO QAM 03/15/21 07/01/21 History celecoxib 100 mg capsule (Celebrex) 100 mg PO DAILY #10 cap 04/14/21 07/01/21 Rx metoprolol tartrate 25 mg tablet 25 mg PO BID 30 Days #180 tab 05/17/21 07/01/21 Rx insulin regular hum U-500 conc 30 unit SUBCUT BID 30 Days #6 ml 05/29/21 07/01/21 Rx (Humulin R U-500 (Conc) Insulin Kwikpen) clonazepam 0.5 mg tablet (Klonopin) 0.5 mg PO QAM #30 tab 06/11/21 07/01/21 Rx dapagliflozin 10 mg tablet 10 mg PO QAM #30 tab 06/15/21 07/01/21 Rx (Farxiga) metoclopramide HCl 5 mg tablet 5 mg PO AC 06/15/21 07/01/21 History (Reglan) Past Med/Surg History Medical History Albuminuria Anxiety CAD (coronary artery disease) No remaining occlusive disease after 2 LAD drug eluting stents 10/22/20. Follows with Dr. Harris Chronic headaches Depression Diabetes type 2, uncontrolled IDDM Diabetic nephropathy associated with type 2 diabetes mellitus Dyslipidemia Hypertension Hypothyroidism NSTEMI (non-ST elevated myocardial infarction) 10/22/2020 s/p 2 CHANTAL Obesity Osteoarthritis Tobacco abuse Vulvitis Surgical History History of cardiac catheterization 10/22/2020 Dominant: Right Left Main (% Stenosis): Normal LAD (% Stenosis): Proximal (99) and Mid (75) Circumflex (% Stenosis): Normal (luminal irregularities) RCA (% Stenosis): Normal (Luminal irregularities) 2 CHANTAL to LAD History of cholecystectomy History of dental surgery History of tonsillectomy S/P coronary artery stent placement 2 CHANTAL to LAD 10/22/2020 Family History Unknown Diabetes Thyroid disorder Father Diabetes Other No family history of adverse response to anesthesia Denies family history of Ovarian cancer Prostate cancer Breast cancer Colorectal cancer Uterine cancer Social History Smoking Status: Current every day smoker Tobacco Type: Cigarettes packs per day: 0.5; Cigarettes Per Day: 10; Second Hand Exposure: No; Do You Dip or Chew Tobacco: No; Hx Alcohol Use: No Hx Substance Use: No Preferred Language: Uzbek Communication Ability: Effective [employer] 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 Helper Required: No Beliefs That Will Affect Care: None marital status: Single Current Living Situation: Alone Other Information That Helps Us Care for You: No Feels Safe at Home: Yes Safety Concerns: Feels Safe At This Time Safety Concerns Comment: Gets nervous sometimes because she lives alone, gets shaky from anxiety caffeine: Yes Dental Care, Regularly: No Physical Activity Frequency: Does not Exercise Seatbelt Use: always Sunscreen Use: No Assistive Devices: Glasses Review of Systems Review of Systems: All systems reviewed & are unremarkable except as noted in HPI & below Physical Exam Constitutional: WD/WN, vitals as above ENMT: external ear and nose normal, oropharynx normal Neck: trachea midline, no thyromegaly Respiratory: normal respiratory effort, lungs clear to auscultation Cardiovascular: Rate/Rhythm: regular rhythm and + bradycardic Heart Sounds: no murmur Extremities: normal capillary refill and + pedal edema (1+ b/l equal); no calf tenderness Gastrointestinal (Abdomen): Inspection/Auscultation: normal bowel sounds Percussion/Palpation: + abdomen tender (generalized but worse in RUQ) and abdomen soft; no guarding and abdomen not rigid Musculoskeletal: no cyanosis or clubbing, extremities motor strength 5/5 Skin: no rashes, warm and dry Neurologic: moves all extremities and awake; no focal motor deficits and not confused Psychiatric: A+Ox3, euthymic affect Genitourinary: no CVA tenderness Results & Data Results & Data ([facility]) Vital Signs (Past 12 Hours) Vital Signs Pulse Pulse Resp BP BP Pulse Ox 07/01/21 16:55 70 18 97 07/01/21 16:49 79 20 147/86 H 97 07/01/21 16:22 76 18 124/73 Laboratory Results Abnormal lab results 07/01/21 07/01/21 07/01/21 Range/Units 16:42 16:42 16:42 WBC 12.21 H (4.8-10.8) K/uL Hgb 16.1 H (12.0-16.0) g/dL MPV 11.1 H (7.4-10.4) fL Neut # (Auto) 9.77 H (1.4-6.5) K/uL Lares # (Auto) 0.67 H (0.11-0.59) K/uL Immature Gran # (Auto) 0.04 H (0.00-0.02) K/uL Potassium 2.3 L* (3.5-5.1) mmol/L Chloride 92 L (98-107) mmol/L Anion Gap 14 H (3-11) BUN/Creatinine Ratio 6.9 L (10-20) Glucose 446 H* (70-99(Fasting)) mg/dl Magnesium (1.7-2.4) mg/dl Alkaline Phosphatase 169 H (34-104) U/L Ur Specific [place] 1.036 H (1.000-1.030) Urine Glucose (UA) 3+ H (Negative) 07/01/21 Range/Units 16:42 WBC (4.8-10.8) K/uL Hgb (12.0-16.0) g/dL MPV (7.4-10.4) fL Neut # (Auto) (1.4-6.5) K/uL Lares # (Auto) (0.11-0.59) K/uL Immature Gran # (Auto) (0.00-0.02) K/uL Potassium (3.5-5.1) mmol/L Chloride (98-107) mmol/L Anion Gap (3-11) BUN/Creatinine Ratio (10-20) Glucose (70-99(Fasting)) mg/dl Magnesium 1.3 L (1.7-2.4) mg/dl Alkaline Phosphatase (34-104) U/L Ur Specific [place] (1.000-1.030) Urine Glucose (UA) (Negative) Diagnostic Findings ABDOMEN AND PELVIS CT WITH IV CONTRAST CT DOSE: 1082.98 mGy.cm HISTORY: Nausea. Vomiting. Diarrhea. TECHNIQUE: Multiaxial CT images of the abdomen and pelvis were performed following the use of intravenous contrast. A dose lowering technique was utilized adhering to the principles of ALARA. COMPARISON STUDY: Abdomen and pelvis CT 04/09/2021. FINDINGS: The lung bases are clear. No pneumoperitoneum. No pneumatosis. No suspicious lytic or blastic osseous lesions. Small fat-containing midline epigastric hernia remains unchanged. Cholecystectomy. The liver, pancreas, spleen, and adrenal glands are unremarkable. Mild bilateral cortical renal scarring/thinning. Stable small bilateral renal hypodense lesions. These favor cysts. No hydronephrosis. Calcified uterine fibroid again noted. Normal ovaries. No retroperitoneal lymphadenopathy. The abdominal aorta is normal in caliber. Mild bilateral perinephric edema which is likely chronic. Normal bladder. No bowel wall thickening or obstruction. Colonic diverticulosis. No evidence for acute diverticulitis. Normal appendix. IMPRESSION: 1. No bowel wall thickening or obstruction. 2. Colonic diverticulosis. No evidence for acute diverticulitis. 3. Normal appendix. 4. Prior cholecystectomy. 5. No hydronephrosis. 6. Additional findings as described above. Medications Administered ER medications given: NSS 500 mL bolus Ondansetron 4 mg IV Potassium chloride 10 meq IV x2 Potassium chloride 40 meq PO ECG Indication: abdominal pain Rate (beats per minute): 61 Rhythm: normal sinus Findings: + nonspecific-ST abn (Anterior lateral inferior) Comparison ECG Date: from (May 25, 2021) Change: no significant change Code Status & VTE Plan Code Status Full VTE Prophylaxis Plan VTE Prophylaxis will be ordered: Yes PG Care Time/CCT Total # of Minutes Spent Total Time Spent with Patient: Total time spent is greater than 50% in coordination of care (as documented) at patient's floor/unit and/or counseling patient: Coding Level of Care Code 23154 Initial Inpt Care Lvl 3 Diagnoses Acute hypokalemia E87.6 Hypomagnesemia E83.42 Nausea vomiting and diarrhea R11.2; R19.7 Acute hyperglycemia R73.9 Right upper quadrant abdominal pain R10.11 Vitamin B12 deficiency E53.8 Vitamin D deficiency E55.9 Hypothyroidism E03.9 Hypertension I10 Diabetes type 2, uncontrolled E11.65
[2021-07-01] MEDS: MAGNESIUM SULFATE / D5W 1 GM/100 ML BAG IV SCH ×4 (19:16→22:45)
[2021-07-01] MEDS ORDERED: PHARMACY GLYCEMIC MGMT CONSULT PRN (21:16)
[2021-07-01] MEDS ORDERED: INSULIN GLARGINE SOLOSTAR 100 UNITS/ML 3 ML PEN SC SCH (22:00)
[2021-07-01] MEDS ORDERED: GLUCOSE 40% GEL 15 GM TUBE PO PRN (22:00)
[2021-07-01] MEDS ORDERED: GLUCAGON FOR INJ 1 MG VIAL IM PRN (22:00)
[2021-07-01] MEDS ORDERED: DEXTROSE 50% 50 ML SYRINGE IV PRN (22:00)
[2021-07-01] MEDS ORDERED: GLUCOSE 10 TABS/TUBE PO PRN (22:00)
[2021-07-01] MEDS ORDERED: CARBOHYDRATES FOR HYPOGLYCEMIA PO PRN (22:00)
[2021-07-01 22:16] LABS: BUN Creatinine Ratio 7.7 (10-20); Calcium 7.9 mg/dl (8.5-10.1); Creatinine Clr Calc Pharmacy 77.9 ml/min; Est GFR (African American) 95.1 ml/min; Est GFR (Non-African American) 82.1 ml/min; Potassium 2.9 mmol/L (3.5-5.1)
[2021-07-01] MEDS: NYSTATIN POWDER 15GM BTL EXT SCH (22:37)
[2021-07-01] MEDS: busPIRone 5 MG TAB PO SCH (22:38)
[2021-07-01] MEDS: fluvoxaMINE MALEATE 50 MG TAB PO SCH (22:38)
[2021-07-01] MEDS: METOPROLOL TARTRATE 25 MG TAB PO SCH (22:39)
[2021-07-01] MEDS: TICAGRELOR 90 MG TAB PO SCH (22:39)
[2021-07-01] MEDS: INSULIN ASPART PER UNIT SC SCH (22:41)
[2021-07-01] MEDS: ENOXAPARIN INJ 40 MG/0.4 ML SYR SQ SCH (22:57)
[2021-07-02] MEDS: MAGNESIUM SULFATE / D5W 1 GM/100 ML BAG IV SCH ×2 (01:30→03:27)
[2021-07-02] MEDS ORDERED: INSULIN ASPART PER UNIT SC ONE (02:00)
[2021-07-02] MEDS: ACETAMINOPHEN 325 MG TAB PO PRN (03:58)
[2021-07-02] MEDS: LEVOTHYROXINE SODIUM 88 MCG TABLET PO SCH (06:03)
[2021-07-02 07:18] LABS: Basophils # (auto) 0.01 K/uL (0-0.2); Basophils % (auto) 0.1 %; Eosinophils # (auto) 0.31 K/uL (0-0.5); Eosinophils % (auto) 3.9 %; Hemoglobin 12.5 g/dL (12.0-16.0); Immature Granulocytes # (auto) 0.01 K/uL (0.00-0.02); Immature Granulocytes % (auto) 0.1 %; Lymphocytes # (auto) 2.16 K/uL (1.2-3.4); Lymphocytes % (auto) 27.2 %; Mean Corpuscular Hemoglobin 29.2 pg (25-34); Mean Corpuscular Hgb Conc 34.7 g/dL (32-36); Mean Corpuscular Volume 84.1 fL (80-100); Mean Platelet Volume 10.5 fL (7.4-10.4); Monocytes # (auto) 0.51 K/uL (0.11-0.59); Monocytes % (auto) 6.4 %; Neutrophils # (auto) 4.94 K/uL (1.4-6.5); Neutrophils % (auto) 62.3 %; Platelet Count 241 K/uL (130-400); RDW Coefficient of Variation 14.1 % (11.5-14.5); RDW Standard Deviation 43.2 fL (36.4-46.3); Red Blood Count 4.28 M/uL (4.2-5.4); White Blood Count 7.94 K/uL (4.8-10.8)
[2021-07-02 07:33] LABS: BUN Creatinine Ratio 8.2 (10-20); Calcium 7.6 mg/dl (8.5-10.1); Creatinine Clr Calc Pharmacy 83.3 ml/min; Est GFR (Non-African American) 88.9 ml/min; Magnesium 2.5 mg/dl (1.7-2.4); Potassium 2.4 mmol/L (3.5-5.1)
[2021-07-02 07:53] LABS: Estimated Average Glucose 260 mg/dl; Hemoglobin A1C 10.7 % (4.5-5.6)
[2021-07-02] MEDS: POTASSIUM CHLORIDE CRTAB 20 MEQ TABCR PO SCH ×3 (09:55→20:46)
[2021-07-02] MEDS: CHOLECALCIFEROL 1,000 UNITS 25 MCG TAB PO SCH (09:56)
[2021-07-02] MEDS: METOCLOPRAMIDE HCL 5 MG TABLET PO SCH ×3 (09:56→17:03)
[2021-07-02] MEDS: CYANOCOBALAMIN (B-12) 500 MCG TABLET PO SCH (09:56)
[2021-07-02] MEDS: ASPIRIN 81 MG ECTAB PO SCH (09:56)
[2021-07-02] MEDS: clonazePAM 0.5 MG TAB PO SCH (09:56)
[2021-07-02] MEDS: lisinopril 40 MG TAB PO SCH (09:57)
[2021-07-02] MEDS: CELECOXIB 100 MG CAP PO SCH (09:57)
[2021-07-02] MEDS: TICAGRELOR 90 MG TAB PO SCH ×2 (09:57→20:47)
[2021-07-02] MEDS: ATORVASTATIN 40 MG TAB PO SCH (09:57)
[2021-07-02] MEDS: METOPROLOL TARTRATE 25 MG TAB PO SCH ×2 (09:58→20:46)
[2021-07-02] MEDS: busPIRone 5 MG TAB PO SCH ×3 (09:58→20:43)
[2021-07-02] MEDS: NYSTATIN POWDER 15GM BTL EXT SCH ×2 (10:00→20:46)
[2021-07-02] MEDS: POTASSIUM CHLORIDE / WTR 10 MEQ/100 ML PLCT IV SCH ×9 (10:13→23:35)
[2021-07-02] MEDS: INSULIN ASPART PER UNIT SC SCH ×4 (10:26→20:42)
--- NOTE | 2021-07-02 12:59 | Electrocardiogram Report ---
Test Reason : Blood Pressure : / mmHG Vent. Rate : 061 BPM Atrial Rate : 061 BPM P-R Int : 152 ms QRS Dur : 072 ms QT Int : 462 ms P-R-T Axes : 050 054 253 degrees QTc Int : 465 ms Normal sinus rhythm Abnormal ECG When compared with ECG of 25-MAY-2021 03:18, No significant change was found Confirmed by Omer Andrade [id number]) on 07/02/2021 12:59:06 PM Referred By: REFERRED SELF Confirmed By:Norberto Andrade
--- NOTE | 2021-07-02 14:14 | Pharmacy Report ---
Pharmacy Glycemic Short Note 2 - Date of Service July 02, 2021 - Glycemic Short BSG Results (Last 24 hours): 07/01/21 07/01/21 07/01/21 16:42 20:11 21:29 Glucose 446 H* POC Glucose 298 H 332 H* 07/01/21 07/02/21 07/02/21 21:43 01:31 06:50 Glucose 284 H 175 H POC Glucose 196 H 07/02/21 07/02/21 07/02/21 07:17 10:21 11:18 Glucose POC Glucose 185 H 271 H 229 H OUTPATIENT ANTIDIABETIC REGIMEN: * Lantus 30 units HS * Novolog 12-15 units TIDM * HbA1C = 107% (07/02/21) ASSESSMENT: * Ms Lua is a 60 y/o F with a PMH of T2DM on insulin who presents with hyperglycemia and metabolic abnormalities. * Patient started on home dose of Lantus 30 units which is appropriate per recent hospitalizations. Higher dose available for tonight if BSGs trend upwards during previous hospitalization patient did require up to 60 units of basal. * Continue Novolog as patient has been dictating doses. For example, per parameters, patient was suppose to receive 16 units of Novolog with lunch but only took 11 units. PLAN FOR INPATIENT GLYCEMIC CONTROL: * Basal insulin * Lantus 40 units SQ HS (30 units if BSG if BSG < 180 mg/dL) * Bolus insulin * NovoLog per scale ACHS or Q6hrs while NPO * Goal Range: Low 120 mg/dL - High 150 mg/dL * Correction Factor: 15 mg/dL/unit * Nutritional / Prandial insulin per carb ratio of 1 unit per 5 grams CHO consumed
[2021-07-02 14:43] LABS: BUN Creatinine Ratio 6.8 (10-20); Calcium 7.8 mg/dl (8.5-10.1); Creatinine Clr Calc Pharmacy 83.3 ml/min; Est GFR (Non-African American) 88.9 ml/min; Potassium 2.6 mmol/L (3.5-5.1)
--- NOTE | 2021-07-02 15:08 | Hospitalist Progress Note ---
Date of Service July 02, 2021 Assessment & Plan (1) Acute hypokalemia: Plan: Suspected due to vomiting and diarrhea, recurrent per patient Repleted with 100 M EQ's total, repeat labs remain hypokalemic Additional repletion ordered Follow for arrhythmia on telemetry - MG 2.5 (2) Hypomagnesemia: Plan: - Mg level 1.3. Previously 6g IV Mg sulphate increased to 2.0 last admission and was given the same this admit Repeat level mag 2.5 Trend tomorrow, defer additional repletion at this time (3) Nausea vomiting and diarrhea: Plan: -CT-A/P: No bowel wall thickening or obstruction. Colonic diverticulosis. No evidence for acute diverticulitis. Normal appendix. Prior cholecystectomy. No hydronephrosis. Additional findings as described above. - Lactate pending -Patient needs to keep a food diary -Given association with bread and dairy will place on lactose intolerant and gluten free diet -Prior TTG IgA negative -Ondansetron for nausea -Stool PCR remains pending (4) Acute hyperglycemia: Plan: Pharmacy glycemic control consulted Agressive control deferred pending hypokalemia correction - Consult pharmacy for glycemic control once she has a bed on med/tele - A1C 10.7%. ?DM autonomic GI dysfunction (5) Diabetes type 2, uncontrolled: Plan: As above (6) Right upper quadrant abdominal pain: Plan: Chronic - thoroughly worked up previously. Suspect from food intolerence when she gets diarrhea. Prior NSTEMI in October 2020 however this was with chest pain and troponins negative with the same reproducible RUQ abdominal pain last admission (7) Vitamin B12 deficiency: Plan: - cyanocobalamin 500 mcg PO daily (8) Vitamin D deficiency: Plan: Previously diagnosed but not on supplementation Start cholecalciferol 1000 units QAM (9) Hypothyroidism: Plan: TSH last noted in 2019, will repeat with AM labs Continue levothyroxine 88 mcg PO daily (10) Hypertension: Plan: Continue metoprolol tartrate 25 mg p.o. twice daily and lisinopril 40 mg p.o. daily Plan: VTE prophylaxis - Lovenox 40 mg SQ daily Diet - clear liquids, low fiber, gluten-free, lactose intolerant, type 2 diabetes Disposition - admit to med telemetry Admission and Anticipated Discharge Date Admission Date: July 01, 2021 Subjective Seen at the bedside this morning. She reports that she has had a lot of diarrhea yesterday, but no diarrhea today. Notes that she thinks some foods like cereals might set off her symptoms but is not sure and is frustrated by her recurrent symptoms. Is undergoing potassium repletion at time of assessment. Denies chest pain, chest pressure, nausea, vomiting, abdominal pain, lightheadedness, dizziness at time of assessment. No BM yet today. Reviewed with patient recommendation on admitting as an prior providers that she should keep a food diary given her extensive work-up which is been negative, but food triggered symptoms. Repeat stool pathogen panel pending Review of Systems Review of Systems: All systems reviewed & are unremarkable except as noted in Subjective Physical Exam Physical Exam: General: A&Ox3. NAD. Cooperative. HEENT: Atraumatic, normocephalic. Vision and hearing grossly intact Pulm: CTAB A&P. -wheezes, -rales, -rhonchi. Symmetrical chest rise. No increase in work of breathing. No respiratory distress. Cardiac: RRR, -mrg. Radial pulses intact and symmetrical. Abdominal: Trace abdominal tenderness without guarding/rebound Extremities: Trace pedal edema Results & Data Results & Data ([facility]) Vital Signs (Past 12 Hours) Vital Signs Temp Pulse Pulse Pulse Resp BP Pulse Ox 07/02/21 15:01 36.6 C 57 L 14 117/75 96 07/02/21 11:19 36.6 C 56 L 14 122/70 94 07/02/21 07:49 60 07/02/21 07:25 36.8 C 64 18 116/76 96 07/02/21 03:15 36.6 C 49 L 18 104/57 L 97 PG Care Time/CCT Total # of Minutes Spent Total Time Spent with Patient: Total time spent is greater than 50% in coordination of care (as documented) at patient's floor/unit and/or counseling patient: Coding Level of Care Code 68649 Subseq Hosp Care Lvl 2 Diagnoses Acute hypokalemia E87.6 Hypomagnesemia E83.42 Nausea vomiting and diarrhea R11.2; R19.7 Acute hyperglycemia R73.9 Diabetes type 2, uncontrolled E11.65 Right upper quadrant abdominal pain R10.11 Vitamin B12 deficiency E53.8 Vitamin D deficiency E55.9 Hypothyroidism E03.9 Hypertension I10
[2021-07-02 20:26] LABS: BUN Creatinine Ratio 6.3 (10-20); Calcium 7.7 mg/dl (8.5-10.1); Est GFR (African American) 111.6 ml/min; Est GFR (Non-African American) 96.3 ml/min; Potassium 2.9 mmol/L (3.5-5.1)
[2021-07-02] MEDS: ENOXAPARIN INJ 40 MG/0.4 ML SYR SQ SCH (20:45)
[2021-07-02] MEDS: fluvoxaMINE MALEATE 50 MG TAB PO SCH (20:45)
[2021-07-02] MEDS ORDERED: INSULIN GLARGINE SOLOSTAR 100 UNITS/ML 3 ML PEN SC SCH (21:00)
[2021-07-03 01:06] LABS: BUN Creatinine Ratio 5.8 (10-20); Calcium 7.6 mg/dl (8.5-10.1); Creatinine Clr Calc Pharmacy 88.1 ml/min; Est GFR (African American) 108.9 ml/min
[2021-07-03] MEDS: POTASSIUM CHLORIDE / WTR 10 MEQ/100 ML PLCT IV SCH ×7 (01:12→18:18)
[2021-07-03] MEDS: ACETAMINOPHEN 325 MG TAB PO PRN ×3 (01:14→21:19)
[2021-07-03] MEDS: LEVOTHYROXINE SODIUM 88 MCG TABLET PO SCH (05:40)
[2021-07-03 06:33] LABS: BUN Creatinine Ratio 4.6 (10-20); Calcium 7.9 mg/dl (8.5-10.1); Est GFR (African American) 111.1 ml/min; Est GFR (Non-African American) 95.8 ml/min; Potassium 3.2 mmol/L (3.5-5.1)
[2021-07-03] MEDS: POTASSIUM CHLORIDE CRTAB 20 MEQ TABCR PO SCH ×2 (08:19→11:51)
[2021-07-03] MEDS: busPIRone 5 MG TAB PO SCH ×3 (08:19→20:34)
[2021-07-03] MEDS: CHOLECALCIFEROL 1,000 UNITS 25 MCG TAB PO SCH (08:20)
[2021-07-03] MEDS: TICAGRELOR 90 MG TAB PO SCH ×2 (08:20→20:35)
[2021-07-03] MEDS: METOCLOPRAMIDE HCL 5 MG TABLET PO SCH ×3 (08:20→16:58)
[2021-07-03] MEDS: ASPIRIN 81 MG ECTAB PO SCH (08:20)
[2021-07-03] MEDS: METOPROLOL TARTRATE 25 MG TAB PO SCH ×2 (08:21→20:35)
[2021-07-03] MEDS: ATORVASTATIN 40 MG TAB PO SCH (08:21)
[2021-07-03] MEDS: CELECOXIB 100 MG CAP PO SCH (08:21)
[2021-07-03] MEDS: lisinopril 40 MG TAB PO SCH (08:21)
[2021-07-03] MEDS: CYANOCOBALAMIN (B-12) 500 MCG TABLET PO SCH (08:21)
[2021-07-03] MEDS: ONDANSETRON INJ 2 MG/ML 2 ML VIAL IV PRN (08:24)
[2021-07-03] MEDS: INSULIN ASPART PER UNIT SC SCH ×4 (08:27→20:34)
[2021-07-03] MEDS: clonazePAM 0.5 MG TAB PO SCH (08:28)
[2021-07-03] MEDS: NYSTATIN POWDER 15GM BTL EXT SCH ×2 (08:30→20:34)
[2021-07-03] MEDS ORDERED: INSULIN GLARGINE SOLOSTAR 100 UNITS/ML 3 ML PEN SC ONE (08:30)
--- NOTE | 2021-07-03 08:37 | Pharmacy Report ---
Pharmacy Glycemic Short Note 2 - Date of Service July 03, 2021 - Glycemic Short BSG Results (Last 24 hours): 07/02/21 07/02/21 07/02/21 10:21 11:18 13:46 Glucose 258 H POC Glucose 271 H 229 H 07/02/21 07/02/21 07/02/21 15:53 19:51 20:09 Glucose 129 H POC Glucose 182 H 136 H 07/02/21 07/03/21 07/03/21 23:19 00:34 03:29 Glucose 210 H POC Glucose 219 H 184 H 07/03/21 07/03/21 05:49 07:54 Glucose 177 H POC Glucose 214 H OUTPATIENT ANTIDIABETIC REGIMEN: * Lantus 30 units HS * Novolog 12-15 units TIDM * HbA1C = 107% (07/02/21) ASSESSMENT: 07/03/21: * Yolanda received 25 units of SQ insulin yesterday (all bolus insulin) with BSGs 185, 271, 229, 182, 136 mg/dL * Fasting BSG of 214 mg/dL this morning. Patient refused Lantus last evening. If patient unwilling to take dose ordered for this morning, I will trial reducing the dose and administering BID rather than once daily. * Patient is very fearful of hypoglycemia. She commonly will refuse insulin or only accept partial doses if BSG is well controlled prior to administration. 07/02/21: * Ms Lua is a 60 y/o F with a PMH of T2DM on insulin who presents with hyperglycemia and metabolic abnormalities. * Patient started on home dose of Lantus 30 units which is appropriate per recent hospitalizations. Higher dose available for tonight if BSGs trend upwards during previous hospitalization patient did require up to 60 units of basal. * Continue Novolog as patient has been dictating doses. For example, per parameters, patient was suppose to receive 16 units of Novolog with lunch but only took 11 units. PLAN FOR INPATIENT GLYCEMIC CONTROL: * Basal insulin * Lantus 40 units SQ this morning * Additional 15 units of Lantus at bedtime, then resume evening dosing on 07/04 * Bolus insulin * NovoLog per scale ACHS or Q6hrs while NPO * Goal Range: Low 120 mg/dL - High 150 mg/dL * Correction Factor: 15 mg/dL/unit * Nutritional / Prandial insulin per carb ratio of 1 unit per 5 grams CHO consumed
[2021-07-03 13:08] LABS: Calcium 8.1 mg/dl (8.5-10.1); Creatinine Clr Calc Pharmacy 91.2 ml/min; Est GFR (Non-African American) 94.9 ml/min; Potassium 3.2 mmol/L (3.5-5.1)
--- NOTE | 2021-07-03 13:18 | Hospitalist Progress Note ---
Date of Service July 03, 2021 Assessment & Plan (1) Acute hypokalemia: Plan: Suspected due to vomiting and diarrhea, recurrent per patient Repleted with 100 M EQ's total following admission repeat labs remained hypokalemic Additional repletion ordered Follow for arrhythmia on telemetry - MG 2.5 Patient anthony to 3.2 potassium, repletion ordered, improving and stabilizing. Additional 4 riders IV given, p.o. deferred PO due to potential worsening stomach upset w/ high doses. follow BMP. Pt w/ HTN, when not w/ n/v potassium has been normal. Patient nausea still persistent but changed, patient feels it is more from being hungry and on clears. Would like to trial diet advancement. Will advance to low fiber, gluten-free, lactose-free, DM and follow closely for food/symptom triggers (2) Hypomagnesemia: Plan: - Mg level 1.3. Previously 6g IV Mg sulphate increased to 2.0 last admission and was given the same this admit Trended (3) Nausea vomiting and diarrhea: Plan: -CT-A/P: No bowel wall thickening or obstruction. Colonic diverticulosis. No evidence for acute diverticulitis. Normal appendix. Prior cholecystectomy. No hydronephrosis. Additional findings as described above. - Lactate pending -Patient needs to keep a food diary -Given association with bread and dairy will place on lactose intolerant and gluten free diet -Prior TTG IgA negative -Ondansetron for nausea -Stool PCR remains pending/uncollected (4) Acute hyperglycemia: Plan: Aggressive control intially deferred 2/2 hypokalemia - A1C 10.7%. ?DM autonomic GI dysfunction -Discussed DM management and goal blood sugar range extensively with patient. She reports that she feels under 140/150 is too low for her. Discussed normoglycemic ranges, and that even if she feels well due to having adjusted to higher blood sugars that persistent elevated blood sugars will still cause damage to small vessels, nerves, and put her at higher risk of autonomic dysfunction, heart disease, stroke, and DM complications. Upon discussion patient does express understanding of this and agrees to BSG goal of [id number] - Pharmacy following, appreciate recommendations (5) Diabetes type 2, uncontrolled: Plan: As above (6) Right upper quadrant abdominal pain: Plan: Chronic - thoroughly worked up previously. Suspect from food intolerence when she gets diarrhea. Prior NSTEMI in October 2020 however this was with chest pain and troponins negative with the same reproducible RUQ abdominal pain last admission (7) Vitamin B12 deficiency: Plan: - cyanocobalamin 500 mcg PO daily (8) Vitamin D deficiency: Plan: Previously diagnosed but not on supplementation Start cholecalciferol 1000 units QAM (9) Hypothyroidism: Plan: TSH last noted in 2019, will repeat with AM labs Continue levothyroxine 88 mcg PO daily (10) Hypertension: Plan: Continue metoprolol tartrate 25 mg p.o. twice daily and lisinopril 40 mg p.o. daily Plan: VTE prophylaxis - Lovenox 40 mg SQ daily Diet - low fiber, gluten-free, lactose intolerant, type 2 diabetes Disposition - admit to [facility] telemetry Admission and Anticipated Discharge Date Admission Date: July 01, 2021 Subjective Seen at the bedside. Patient will she was nauseous this morning while on just a clear diet, was okay overnight but feels like her stomach being empty is bothering her. No BM yet this morning. Patient aware potassium is being repleted, denies chest pain/chest pressure/shortness of breath/difficulty mirella thing. No fevers or chills. Does continue with epigastric discomfort which she feels would be better if she could eat something this morning. Review of Systems Review of Systems: All systems reviewed & are unremarkable except as noted in Subjective Physical Exam Physical Exam: General: A&Ox3. NAD. Cooperative. HEENT: Atraumatic, normocephalic. Vision and hearing grossly intact Pulm: CTAB A&P. -wheezes, -rales, -rhonchi. Symmetrical chest rise. No increase in work of breathing. No respiratory distress. Cardiac: RRR, -mrg. Radial pulses intact and symmetrical. Abdominal: Trace abdominal tenderness without guarding/rebound Extremities: Trace pedal edema Results & Data Results & Data ([facility]) Vital Signs (Past 12 Hours) Vital Signs Temp Pulse Pulse Resp BP Pulse Ox 07/03/21 11:31 36.5 C 63 18 159/81 H 97 07/03/21 07:38 65 07/03/21 06:36 36.7 C 70 18 170/92 H 96 07/03/21 03:30 36.8 C 68 20 156/80 H 95 PG Care Time/CCT Total # of Minutes Spent Total Time Spent with Patient: Total time spent is greater than 50% in coordination of care (as documented) at patient's floor/unit and/or counseling patient: Coding Level of Care Code 09973 Subseq Hosp Care Lvl 2 Diagnoses Acute hypokalemia E87.6 Hypomagnesemia E83.42 Nausea vomiting and diarrhea R11.2; R19.7 Acute hyperglycemia R73.9 Diabetes type 2, uncontrolled E11.65 Right upper quadrant abdominal pain R10.11 Vitamin B12 deficiency E53.8 Vitamin D deficiency E55.9 Hypothyroidism E03.9 Hypertension I10
[2021-07-03 17:28] LABS: BUN Creatinine Ratio 9.8 (10-20); Creatinine Clr Calc Pharmacy 74.5 ml/min; Est GFR (African American) 89.5 ml/min; Est GFR (Non-African American) 77.2 ml/min; Potassium 3.5 mmol/L (3.5-5.1)
[2021-07-03] MEDS ORDERED: IBUPROFEN 200 MG TAB PO PRN (18:38)
[2021-07-03] MEDS: MAGNESIUM SULFATE / D5W 1 GM/100 ML BAG IV SCH ×3 (18:48→22:56)
[2021-07-03] MEDS: ENOXAPARIN INJ 40 MG/0.4 ML SYR SQ SCH (20:34)
[2021-07-03] MEDS: fluvoxaMINE MALEATE 50 MG TAB PO SCH (20:36)
[2021-07-03] MEDS ORDERED: INSULIN GLARGINE SOLOSTAR 100 UNITS/ML 3 ML PEN SC SCH (21:00)
[2021-07-04] MEDS: ACETAMINOPHEN 325 MG TAB PO PRN ×2 (06:27→21:11)
[2021-07-04] MEDS: LEVOTHYROXINE SODIUM 88 MCG TABLET PO SCH (06:27)
[2021-07-04] MEDS: ONDANSETRON INJ 2 MG/ML 2 ML VIAL IV PRN (06:30)
--- NOTE | 2021-07-04 07:06 | Hospitalist Progress Note ---
Date of Service July 04, 2021 Assessment & Plan (1) Acute hypokalemia: Plan: Suspected due to vomiting and diarrhea, recurrent per patient has had issues of Hypokalemia in the past Magnesium is replete but low Patient nausea still persistent but lessened and without vomiting, low fiber, gluten-free, lactose-free, -DM and follow closely for food/symptom triggers, did have NORMAL gastric emptying study 05/24/21 (2) Hypomagnesemia: Plan: - replete (3) Nausea vomiting and diarrhea: Plan: -CT-A/P: No bowel wall thickening or obstruction. Colonic diverticulosis. No evidence for acute diverticulitis. Normal appendix. Prior cholecystectomy. No hydronephrosis. - - lactose intolerant and gluten free diet -Prior TTG IgA negative -Ondansetron for nausea -Stool PCR remains pending/uncollected (4) Acute hyperglycemia: Plan: uncontrolled diabetes - A1C 10.7%. -Previous doctor discussed DM management and goal blood sugar range extensively with patient. She reports that she feels under 140/150 is too low for her. Discussed normoglycemic ranges, and that even if she feels well due to having adjusted to higher blood sugars that persistent elevated blood sugars will still cause damage to small vessels, nerves, and put her at higher risk of autonomic dysfunction, heart disease, stroke, and DM complications. Upon discussion patient does express understanding of this and agrees to BSG goal of [id number] - Pharmacy following, appreciate recommendations (5) Diabetes type 2, uncontrolled: Plan: Typically on Basal Bolus insulin plus farxiga at home (6) Right upper quadrant abdominal pain: Plan: Chronic - thoroughly worked up previously. Suspect from food intolerance when she gets diarrhea. (7) Vitamin B12 deficiency: Plan: - cyanocobalamin 500 mcg PO daily (8) Vitamin D deficiency: Plan: Previously diagnosed but not on supplementation Start cholecalciferol 1000 units QAM (9) Hypothyroidism: Plan: TSH last noted in 2019, will repeat with AM labs Continue levothyroxine 88 mcg PO daily (10) Hypertension: Plan: Continue metoprolol tartrate 25 mg p.o. twice daily and lisinopril 40 mg p.o. daily (11) Fatigue: Plan: will do nocturnal oxygen study tonight Plan: VTE prophylaxis - Lovenox 40 mg SQ daily Diet - low fiber, gluten-free, lactose intolerant, type 2 diabetes Disposition - admit to [facility] telemetry Admission and Anticipated Discharge Date Admission Date: July 01, 2021 Subjective pt has no significant new issues, but overall feels extremely fatigued, still with some nausea but no vomiting or diarrhea, did have gluten free diet today Review of Systems Review of Systems: Mild distress and moderate fatigue no headache, no visual changes no speech or swallowing issues no chest pain, pressure or palpitations no shortness of breath, cough or wheezes right upper abdomen pain that is worsened post prandial, nausea without vomiting or diarrhea no dysuria, hematuria or frequency no focal joint pain or swelling no back pain, CVA tenderness or radicular pain no bruising, bleeding or rashes no focal signs of weakness or numbness or altered sensation no complaints of anxiety or depression.. Physical Exam Physical Exam: The patient appeared well nourished and normally developed. Vital signs as documented. Head exam is normocephalic atraumatic Neck is without JVD, thyromegaly, or carotid bruits. Lungs are clear to auscultation, no focal loss of breath sounds Cardiac exam, Rhythm is regular.. No murmurs, rubs or gallops. Abdominal exam reveals normal bowel sounds, soft ruq tenderness, large scar in right upper quadrant from previous cholecystectomy Extremities are nonedematous and both pedal pulses are present Neurologic exam is alert and oriented, no focal loss of strength or sensation Skin is without bruises or rashes Psychologically is without concerns for anxiety or depression.. Results & Data Results & Data ([facility]) Vital Signs (Past 12 Hours) Vital Signs Temp Pulse Pulse Resp BP Pulse Ox 07/04/21 03:00 97.7 F 65 20 173/99 H 94 07/03/21 23:41 62 07/03/21 22:28 97.9 F 65 18 124/73 97 PG Care Time/CCT Total # of Minutes Spent Total Time Spent with Patient: Total time spent is greater than 50% in coordination of care (as documented) at patient's floor/unit and/or counseling patient: Coding Level of Care Code 77867 Subseq Hosp Care Lvl 2 Diagnoses Acute hypokalemia E87.6 Hypomagnesemia E83.42 Nausea vomiting and diarrhea R11.2; R19.7 Acute hyperglycemia R73.9 Diabetes type 2, uncontrolled E11.65 Right upper quadrant abdominal pain R10.11 Vitamin B12 deficiency E53.8 Vitamin D deficiency E55.9 Hypothyroidism E03.9 Hypertension I10 Fatigue R53.83
[2021-07-04 08:07] LABS: Basophils # (auto) 0.01 K/uL (0-0.2); Basophils % (auto) 0.1 %; Eosinophils # (auto) 0.33 K/uL (0-0.5); Eosinophils % (auto) 4.1 %; Hematocrit (blood only) 40.4 % (37-47); Hemoglobin 13.8 g/dL (12.0-16.0); Immature Granulocytes # (auto) 0.01 K/uL (0.00-0.02); Immature Granulocytes % (auto) 0.1 %; Lymphocytes # (auto) 1.57 K/uL (1.2-3.4); Lymphocytes % (auto) 19.6 %; Mean Corpuscular Hemoglobin 29.2 pg (25-34); Mean Corpuscular Hgb Conc 34.2 g/dL (32-36); Mean Corpuscular Volume 85.4 fL (80-100); Mean Platelet Volume 10.7 fL (7.4-10.4); Monocytes # (auto) 0.46 K/uL (0.11-0.59); Monocytes % (auto) 5.7 %; Neutrophils # (auto) 5.65 K/uL (1.4-6.5); Neutrophils % (auto) 70.4 %; Platelet Count 245 K/uL (130-400); RDW Coefficient of Variation 13.8 % (11.5-14.5); RDW Standard Deviation 43.1 fL (36.4-46.3); Red Blood Count 4.73 M/uL (4.2-5.4); White Blood Count 8.03 K/uL (4.8-10.8)
[2021-07-04 08:31] LABS: BUN Creatinine Ratio 10.1 (10-20); Calcium 8.4 mg/dl (8.5-10.1); Creatinine Clr Calc Pharmacy 76.2 ml/min; Est GFR (African American) 93.6 ml/min; Est GFR (Non-African American) 80.8 ml/min; Magnesium 1.7 mg/dl (1.7-2.4); Potassium 3.5 mmol/L (3.5-5.1)
[2021-07-04] MEDS: INSULIN ASPART PER UNIT SC SCH ×4 (08:43→21:06)
[2021-07-04] MEDS: INSULIN GLARGINE SOLOSTAR 100 UNITS/ML 3 ML PEN SC SCH ×2 (08:47→21:10)
[2021-07-04] MEDS: METOCLOPRAMIDE HCL 5 MG TABLET PO SCH ×3 (09:00→17:39)
[2021-07-04] MEDS: CELECOXIB 100 MG CAP PO SCH (09:00)
[2021-07-04] MEDS: TICAGRELOR 90 MG TAB PO SCH ×2 (09:01→21:07)
[2021-07-04] MEDS: METOPROLOL TARTRATE 25 MG TAB PO SCH ×2 (09:01→21:09)
[2021-07-04] MEDS: busPIRone 5 MG TAB PO SCH ×3 (09:01→21:08)
[2021-07-04] MEDS: lisinopril 40 MG TAB PO SCH (09:02)
[2021-07-04] MEDS: NYSTATIN POWDER 15GM BTL EXT SCH ×2 (09:02→21:07)
[2021-07-04] MEDS: ASPIRIN 81 MG ECTAB PO SCH (09:02)
[2021-07-04] MEDS: CYANOCOBALAMIN (B-12) 500 MCG TABLET PO SCH (09:03)
[2021-07-04] MEDS: CHOLECALCIFEROL 1,000 UNITS 25 MCG TAB PO SCH (09:03)
[2021-07-04] MEDS: ATORVASTATIN 40 MG TAB PO SCH (09:03)
[2021-07-04] MEDS: clonazePAM 0.5 MG TAB PO SCH (09:06)
--- NOTE | 2021-07-04 10:41 | Pharmacy Report ---
Pharmacy Glycemic Short Note 2 - Date of Service July 04, 2021 - Glycemic Short BSG Results (Last 24 hours): 07/03/21 07/03/21 07/03/21 11:47 12:27 14:36 Glucose 170 H POC Glucose 177 H 188 H 07/03/21 07/03/21 07/03/21 16:33 16:45 20:11 Glucose 160 H POC Glucose 167 H 173 H 07/04/21 07/04/21 07/04/21 00:34 04:02 07:32 Glucose 234 H POC Glucose 255 H 224 H 07/04/21 07:55 Glucose POC Glucose 256 H OUTPATIENT ANTIDIABETIC REGIMEN: * Lantus 30 units HS * Novolog 12-15 units TIDM * Prescribed U-500 insulin by Endo - patient reports not using * HbA1C = 107% (07/02/21) ASSESSMENT: 07/04/21: * Yolanda received 80 units of SQ insulin yesterday (55 units basal + 25 units bolus) with BSGs 214, 177, 167, 173, 255 mg/dL * Fasting BSG remains elevated - still catching up from refused dose of Lantus 40 units on 07/02 PM. Will transition to BID dosing of Lantus to see if this aids in patient compliance (reports from nursing that patient feels doses are too high). Perhaps smaller doses, administered more frequently will give her more comfort. * Post prandial BSG control is adequate when patient agrees to calculated novolog dose. 07/03/21: * Yolanda received 25 units of SQ insulin yesterday (all bolus insulin) with BSGs 185, 271, 229, 182, 136 mg/dL * Fasting BSG of 214 mg/dL this morning. Patient refused Lantus last evening. If patient unwilling to take dose ordered for this morning, I will trial reducing the dose and administering BID rather than once daily. * Patient is very fearful of hypoglycemia. She commonly will refuse insulin or only accept partial doses if BSG is well controlled prior to administration. 07/02/21: * Ms Lua is a 60 y/o F with a PMH of T2DM on insulin who presents with hyperglycemia and metabolic abnormalities. * Patient started on home dose of Lantus 30 units which is appropriate per recent hospitalizations. Higher dose available for tonight if BSGs trend upwards during previous hospitalization patient did require up to 60 units of basal. * Continue Novolog as patient has been dictating doses. For example, per parameters, patient was suppose to receive 16 units of Novolog with lunch but only took 11 units. PLAN FOR INPATIENT GLYCEMIC CONTROL: * Basal insulin * Lantus 20-25 units SQ BID (25 units for BSG 160 mg/dL or more) * Bolus insulin * NovoLog per scale ACHS or Q6hrs while NPO * Goal Range: Low 120 mg/dL - High 150 mg/dL * Correction Factor: 15 mg/dL/unit * Nutritional / Prandial insulin per carb ratio of 1 unit per 5 grams CHO co nsumed
[2021-07-04] MEDS ORDERED: MAGNESIUM SULFATE / D5W 1 GM/100 ML BAG IV ONE (12:57)
[2021-07-04] MEDS: POTASSIUM CHLORIDE CRTAB 20 MEQ TABCR PO SCH ×2 (13:12→21:10)
[2021-07-04] MEDS: fluvoxaMINE MALEATE 50 MG TAB PO SCH (21:09)
[2021-07-04] MEDS: ENOXAPARIN INJ 40 MG/0.4 ML SYR SQ SCH (21:09)
[2021-07-05] MEDS: ACETAMINOPHEN 325 MG TAB PO PRN (05:20)
[2021-07-05] MEDS: LEVOTHYROXINE SODIUM 88 MCG TABLET PO SCH (05:21)
--- NOTE | 2021-07-05 08:10 | Hospitalist Progress Note ---
Date of Service July 05, 2021 Assessment & Plan (1) Acute hypokalemia: Plan: Suspected due to vomiting and diarrhea, recurrent per patient has had issues of Hypokalemia in the past Magnesium is low Patient nausea still persistent but lessened and without vomiting, low fiber, gluten-free, lactose-free, -DM and follow closely for food/symptom triggers, did have NORMAL gastric emptying study 05/24/21 (2) Hypomagnesemia: Plan: - intermittently low (3) Nausea vomiting and diarrhea: Plan: -CT-A/P: No bowel wall thickening or obstruction. Colonic diverticulosis. No evidence for acute diverticulitis. Normal appendix. Prior cholecystectomy. No hydronephrosis. - - lactose intolerant and gluten free diet -Prior TTG IgA negative -Ondansetron for nausea -Stool PCR remains pending/uncollected (4) Acute hyperglycemia: Plan: uncontrolled diabetes - A1C 10.7%. -Previous doctor discussed DM management and goal blood sugar range extensively with patient. She reports that she feels under 140/150 is too low for her. Discussed normoglycemic ranges, and that even if she feels well due to having adjusted to higher blood sugars that persistent elevated blood sugars will still cause damage to small vessels, nerves, and put her at higher risk of autonomic dysfunction, heart disease, stroke, and DM complications. Upon discussion patient does express understanding of this and agrees to BSG goal of [id number] - Pharmacy following, appreciate recommendations (5) Diabetes type 2, uncontrolled: Plan: Typically on Basal Bolus insulin plus farxiga at home (6) Right upper quadrant abdominal pain: Plan: Chronic - thoroughly worked up previously. Suspect from food intolerance when she gets diarrhea. (7) Vitamin B12 deficiency: Plan: - cyanocobalamin 500 mcg PO daily (8) Vitamin D deficiency: Plan: Previously diagnosed but not on supplementation Start cholecalciferol 1000 units QAM (9) Hypothyroidism: Plan: TSH last noted in 2019, will repeat with AM labs Continue levothyroxine 88 mcg PO daily (10) Hypertension: Plan: Continue metoprolol tartrate 25 mg p.o. twice daily and lisinopril 40 mg p.o. daily (11) Fatigue: Plan: will do nocturnal oxygen study tonight Plan: VTE prophylaxis - Lovenox 40 mg SQ daily Diet - low fiber, gluten-free, lactose intolerant, type 2 diabetes Disposition - admit to med telemetry Admission and Anticipated Discharge Date Admission Date: July 01, 2021 Subjective PT continues to complain of feeling extremely fatigued, still with some nausea but less, no vomiting or diarrhea, did have gluten free diet continuing. Given persistent complaints of fatigue will reduce or eliminate medications that can be associated with fatigue Review of Systems Review of Systems: Mild distress and moderate fatigue no headache, no visual changes no speech or swallowing issues no chest pain, pressure or palpitations no shortness of breath, cough or wheezes right upper abdomen pain that is worsened post prandial, nausea without vomiting or diarrhea no dysuria, hematuria or frequency no focal joint pain or swelling no back pain, CVA tenderness or radicular pain no bruising, bleeding or rashes no focal signs of weakness or numbness or altered sensation no complaints of anxiety or depression.. Physical Exam Physical Exam: The patient appeared well nourished and normally developed. Vital signs as documented. Head exam is normocephalic atraumatic Neck is without JVD, thyromegaly, or carotid bruits. Lungs are clear to auscultation, no focal loss of breath sounds Cardiac exam, Rhythm is regular.. No murmurs, rubs or gallops. Abdominal exam reveals normal bowel sounds, soft ruq tenderness, large scar in right upper quadrant from previous cholecystectomy Extremities are nonedematous and both pedal pulses are present Neurologic exam is alert and oriented, no focal loss of strength or sensation Skin is without bruises or rashes Psychologically is without concerns for anxiety or depression.. Results & Data Results & Data ([facility]) Vital Signs (Past 12 Hours) Vital Signs Temp Pulse Pulse Pulse Resp BP BP 07/05/21 07:19 73 07/05/21 07:00 97.5 F L 73 20 177/77 H 07/05/21 03:36 70 07/05/21 03:15 98.2 F 72 20 166/81 H 07/05/21 00:13 64 07/04/21 23:29 69 07/04/21 23:12 98.2 F 61 20 119/72 07/04/21 22:15 70 Pulse Ox Pulse Ox 07/05/21 07:19 07/05/21 07:00 96 07/05/21 03:36 97 07/05/21 03:15 95 07/05/21 00:13 94 07/04/21 23:29 07/04/21 23:12 98 07/04/21 22:15 95 PG Care Time/CCT Total # of Minutes Spent Total Time Spent with Patient: Total time spent is greater than 50% in coordination of care (as documented) at patient's floor/unit and/or counseling patient: Coding Level of Care Code 93996 Subseq Hosp Care Lvl 3 Diagnoses Acute hypokalemia E87.6 Hypomagnesemia E83.42 Nausea vomiting and diarrhea R11.2; R19.7 Acute hyperglycemia R73.9 Diabetes type 2, uncontrolled E11.65 Right upper quadrant abdominal pain R10.11 Vitamin B12 deficiency E53.8 Vitamin D deficiency E55.9 Hypothyroidism E03.9 Hypertension I10 Fatigue R53.83
[2021-07-05] MEDS: MAGNESIUM OXIDE 400 MG TAB PO SCH (08:16)
[2021-07-05] MEDS: CYANOCOBALAMIN (B-12) 500 MCG TABLET PO SCH (08:16)
[2021-07-05] MEDS: POTASSIUM CHLORIDE CRTAB 20 MEQ TABCR PO SCH (08:16)
[2021-07-05] MEDS: METOPROLOL TARTRATE 25 MG TAB PO SCH ×2 (08:16→21:16)
[2021-07-05] MEDS: METOCLOPRAMIDE HCL 5 MG TABLET PO SCH ×2 (08:16→12:41)
[2021-07-05] MEDS: CHOLECALCIFEROL 1,000 UNITS 25 MCG TAB PO SCH (08:16)
[2021-07-05] MEDS: ATORVASTATIN 40 MG TAB PO SCH (08:17)
[2021-07-05] MEDS: TICAGRELOR 90 MG TAB PO SCH ×2 (08:17→21:15)
[2021-07-05] MEDS: busPIRone 5 MG TAB PO SCH ×3 (08:17→21:16)
[2021-07-05] MEDS: CELECOXIB 100 MG CAP PO SCH (08:17)
[2021-07-05] MEDS: lisinopril 40 MG TAB PO SCH (08:18)
[2021-07-05] MEDS: ASPIRIN 81 MG ECTAB PO SCH (08:18)
[2021-07-05] MEDS: NYSTATIN POWDER 15GM BTL EXT SCH ×2 (08:18→21:15)
[2021-07-05] MEDS: INSULIN ASPART PER UNIT SC SCH ×4 (08:22→21:11)
[2021-07-05] MEDS: INSULIN GLARGINE SOLOSTAR 100 UNITS/ML 3 ML PEN SC SCH ×2 (08:24→21:11)
[2021-07-05] MEDS: clonazePAM 0.5 MG TAB PO SCH (08:28)
[2021-07-05 10:18] LABS: BUN Creatinine Ratio 22.7 (10-20); Calcium 8.4 mg/dl (8.5-10.1); Creatinine Clr Calc Pharmacy 80.3 ml/min; Est GFR (African American) 99.7 ml/min; Magnesium 1.4 mg/dl (1.7-2.4); Potassium 3.7 mmol/L (3.5-5.1)
[2021-07-05] MEDS: ACETAMINOPHEN 500 MG TAB PO PRN ×2 (10:35→17:40)
--- NOTE | 2021-07-05 13:13 | Pharmacy Report ---
Pharmacy Glycemic Short Note 2 - Date of Service July 05, 2021 - Glycemic Short BSG Results (Last 24 hours): 07/04/21 07/04/21 07/05/21 16:23 20:23 01:37 Glucose POC Glucose 242 H 246 H 225 H 07/05/21 07/05/21 07/05/21 07:32 08:19 11:47 Glucose 270 H POC Glucose 238 H 232 H OUTPATIENT ANTIDIABETIC REGIMEN: * Lantus 30 units HS * Novolog 12-15 units TIDM * Prescribed U-500 insulin by Endo - patient reports not using * HbA1C = 107% (07/02/21) ASSESSMENT: 07/05/21: * Blood sugars remain in the mid 200s over last 24 hours, tighten CF and CR, no change in basal at this time as patient is very fearful of hypoglycemia. 07/04/21: * Yolanda received 80 units of SQ insulin yesterday (55 units basal + 25 units bolus) with BSGs 214, 177, 167, 173, 255 mg/dL * Fasting BSG remains elevated - still catching up from refused dose of Lantus 40 units on 07/02 PM. Will transition to BID dosing of Lantus to see if this aids in patient compliance (reports from nursing that patient feels doses are too high). Perhaps smaller doses, administered more frequently will give her more comfort. * Post prandial BSG control is adequate when patient agrees to calculated novolog dose. 07/03/21: * Yolanda received 25 units of SQ insulin yesterday (all bolus insulin) with BSGs 185, 271, 229, 182, 136 mg/dL * Fasting BSG of 214 mg/dL this morning. Patient refused Lantus last evening. If patient unwilling to take dose ordered for this morning, I will trial reducing the dose and administering BID rather than once daily. * Patient is very fearful of hypoglycemia. She commonly will refuse insulin or only accept partial doses if BSG is well controlled prior to administration. 07/02/21: * Ms Lua is a 60 y/o F with a PMH of T2DM on insulin who presents with hyperglycemia and metabolic abnormalities. * Patient started on home dose of Lantus 30 units which is appropriate per recent hospitalizations. Higher dose available for tonight if BSGs trend upwards during previous hospitalization patient did require up to 60 units of basal. * Continue Novolog as patient has been dictating doses. For example, per parameters, patient was suppose to receive 16 units of Novolog with lunch but only took 11 units. PLAN FOR INPATIENT GLYCEMIC CONTROL: * Basal insulin * Lantus 20-25 units SQ BID (25 units for BSG 160 mg/dL or more) * Bolus insulin * NovoLog per scale ACHS or Q6hrs while NPO * Goal Range: Low 110 mg/dL - High 140 mg/dL * Correction Factor: 12 mg/dL/unit * Nutritional / Prandial insulin per carb ratio of 1 unit per 3.5 grams CHO consumed
[2021-07-05] MEDS: MAGNESIUM SULFATE / D5W 1 GM/100 ML BAG IV SCH ×2 (16:20→18:26)
[2021-07-05] MEDS: ENOXAPARIN INJ 40 MG/0.4 ML SYR SQ SCH (21:12)
[2021-07-05] MEDS: fluvoxaMINE MALEATE 50 MG TAB PO SCH (21:15)
[2021-07-05] MEDS: FAMOTIDINE 20 MG TAB PO SCH (21:16)
[2021-07-06] MEDS ORDERED: INSULIN ASPART PER UNIT SC ONE (03:30)
[2021-07-06] MEDS: LEVOTHYROXINE SODIUM 88 MCG TABLET PO SCH (04:45)
[2021-07-06] MEDS: ACETAMINOPHEN 325 MG TAB PO PRN ×2 (04:45→09:03)
--- NOTE | 2021-07-06 07:51 | Hospitalist Progress Note ---
Date of Service July 06, 2021 Assessment & Plan (1) Acute hypokalemia: Plan: Suspected due to vomiting and diarrhea, recurrent per patient. oral magnesium supplementation may be worsening this Patient nausea still persistent but lessened and without vomiting, low fiber, gluten-free, lactose-free, -DM and follow closely for food/symptom triggers, did have NORMAL gastric emptying study 05/24/21 (2) Hypomagnesemia: Plan: - intermittently low, carefully supplement orally (3) Nausea vomiting and diarrhea: Plan: -CT-A/P: No bowel wall thickening or obstruction. Colonic diverticulosis. No evidence for acute diverticulitis. Normal appendix. Prior cholecystectomy. No hydronephrosis. - - lactose intolerant and gluten free diet -Prior TTG IgA negative -Ondansetron for nausea -Stool PCR remains pending/uncollected (4) Acute hyperglycemia: Plan: uncontrolled diabetes - A1C 10.7%. -Previous doctor discussed DM management and goal blood sugar range extensively with patient. She reports that she feels under 140/150 is too low for her. Discussed normoglycemic ranges, and that even if she feels well due to having adjusted to higher blood sugars that persistent elevated blood sugars will still cause damage to small vessels, nerves, and put her at higher risk of autonomic dysfunction, heart disease, stroke, and DM complications. Upon discussion patient does express understanding of this and agrees to BSG goal of [id number] - Pharmacy following, appreciate recommendations (5) Diabetes type 2, uncontrolled: Plan: Typically on Basal Bolus insulin plus farxiga at home (6) Right upper quadrant abdominal pain: Plan: Chronic - thoroughly worked up previously. Suspect from food intolerance when she gets diarrhea. (7) Vitamin B12 deficiency: Plan: - cyanocobalamin 500 mcg PO daily (8) Vitamin D deficiency: Plan: Previously diagnosed but not on supplementation Start cholecalciferol 1000 units QAM (9) Hypothyroidism: Plan: TSH last noted in 2019, will repeat with AM labs Continue levothyroxine 88 mcg PO daily (10) Hypertension: Plan: blood pressure controlled with metoprolol tartrate 25 mg p.o. twice daily and lisinopril 40 mg p.o. daily consider adding amiloride for potassium sparing affects (11) Fatigue: Plan: did reduce many symptom oriented medications that may have sedation/fatigue as side affect on 07/05, another consideration is changing antidepressant will allow another day before making a move on this Plan: VTE prophylaxis - Lovenox 40 mg SQ daily Diet - low fiber, gluten-free, lactose intolerant, type 2 diabetes Disposition -medical Admission and Anticipated Discharge Date Admission Date: July 01, 2021 Subjective PT continues to complain of feeling extremely fatigued, still with some nausea, no vomiting or diarrhea, gluten free diet continues. did reduce or eliminate medications that can be associated with fatigue no complaints of missing them, now also c/o back pain that examines at paraspinous reproducible back pain Review of Systems Review of Systems: Mild distress and moderate fatigue no headache, no visual changes no speech or swallowing issues no chest pain, pressure or palpitations no shortness of breath, cough or wheezes right upper abdomen pain that is worsened post prandial, nausea without vomiting or diarrhea no dysuria, hematuria or frequency no focal joint pain or swelling paraspinous mid back pain, CVA tenderness or radicular pain no bruising, bleeding or rashes no focal signs of weakness or numbness or altered sensation no complaints of anxiety or depression.. Physical Exam Physical Exam: The patient appeared well nourished and normally developed. Vital signs as documented. Head exam is normocephalic atraumatic Neck is without JVD, thyromegaly, or carotid bruits. Lungs are clear to auscultation, no focal loss of breath sounds Cardiac exam, Rhythm is regular.. No murmurs, rubs or gallops. Abdominal exam reveals normal bowel sounds, soft ruq tenderness, large scar in right upper quadrant from previous cholecystectomy Extremities are nonedematous and both pedal pulses are present Neurologic exam is alert and oriented, no focal loss of strength or sensation Skin is without bruises or rashes Psychologically is without concerns for anxiety or depression.. Results & Data Results & Data ([facility]) Vital Signs (Past 12 Hours) Vital Signs Temp Pulse Pulse Resp BP BP Pulse Ox 07/06/21 07:43 98.2 F 62 20 155/79 H 98 07/06/21 03:03 97.9 F 60 18 129/73 97 07/05/21 23:23 59 L 07/05/21 22:19 98.1 F 60 18 120/73 95 07/05/21 21:17 67 153/84 H PG Care Time/CCT Total # of Minutes Spent Total Time Spent with Patient: Total time spent is greater than 50% in coordination of care (as documented) at patient's floor/unit and/or counseling patient: Coding Level of Care Code 34527 Subseq Hosp Care Lvl 2 Diagnoses Acute hypokalemia E87.6 Hypomagnesemia E83.42 Nausea vomiting and diarrhea R11.2; R19.7 Acute hyperglycemia R73.9 Diabetes type 2, uncontrolled E11.65 Right upper quadrant abdominal pain R10.11 Vitamin B12 deficiency E53.8 Vitamin D deficiency E55.9 Hypothyroidism E03.9 Hypertension I10 Fatigue R53.83
[2021-07-06 08:33] LABS: BUN Creatinine Ratio 22.4 (10-20); Calcium 8.8 mg/dl (8.5-10.1); Creatinine Clr Calc Pharmacy 79.2 ml/min; Est GFR (African American) 98.1 ml/min; Est GFR (Non-African American) 84.7 ml/min; Magnesium 1.6 mg/dl (1.7-2.4); Potassium 3.6 mmol/L (3.5-5.1)
[2021-07-06] MEDS: ASPIRIN 81 MG ECTAB PO SCH (08:56)
[2021-07-06] MEDS: busPIRone 5 MG TAB PO SCH ×3 (08:56→20:37)
[2021-07-06] MEDS: FAMOTIDINE 20 MG TAB PO SCH ×2 (08:56→20:36)
[2021-07-06] MEDS: CYANOCOBALAMIN (B-12) 500 MCG TABLET PO SCH (08:57)
[2021-07-06] MEDS: lisinopril 40 MG TAB PO SCH (08:57)
[2021-07-06] MEDS: CHOLECALCIFEROL 1,000 UNITS 25 MCG TAB PO SCH (08:57)
[2021-07-06] MEDS: TICAGRELOR 90 MG TAB PO SCH ×2 (08:57→20:37)
[2021-07-06] MEDS: METOPROLOL TARTRATE 25 MG TAB PO SCH ×2 (08:57→20:38)
[2021-07-06] MEDS: CELECOXIB 100 MG CAP PO SCH (08:58)
[2021-07-06] MEDS: MAGNESIUM OXIDE 400 MG TAB PO SCH (08:58)
[2021-07-06] MEDS: NYSTATIN POWDER 15GM BTL EXT SCH ×2 (08:59→20:41)
[2021-07-06] MEDS ORDERED: INSULIN GLARGINE SOLOSTAR 100 UNITS/ML 3 ML PEN SC ONE (09:00)
[2021-07-06] MEDS ORDERED: clonazePAM 0.25 MG TAB PO SCH (09:00)
[2021-07-06] MEDS: INSULIN ASPART PER UNIT SC SCH ×4 (09:03→20:49)
[2021-07-06] MEDS: traMADol HCL 50 MG TABLET PO PRN ×3 (11:18→22:30)
[2021-07-06] MEDS: POTASSIUM CHLORIDE CRTAB 20 MEQ TABCR PO SCH ×2 (11:18→20:37)
[2021-07-06] MEDS: MAGNESIUM SULFATE / D5W 1 GM/100 ML BAG IV SCH (11:19)
[2021-07-06] MEDS: ONDANSETRON INJ 2 MG/ML 2 ML VIAL IV PRN ×2 (11:22→18:06)
--- NOTE | 2021-07-06 12:25 | Pharmacy Report ---
Pharmacy Glycemic Short Note 2 - Date of Service July 06, 2021 - Glycemic Short BSG Results (Last 24 hours): 07/05/21 07/05/21 07/06/21 16:54 20:50 03:08 Glucose POC Glucose 137 H 197 H 305 H* 07/06/21 07/06/21 07/06/21 04:44 07:35 07:52 Glucose 155 H POC Glucose 258 H 152 H 07/06/21 11:35 Glucose POC Glucose 206 H OUTPATIENT ANTIDIABETIC REGIMEN: * Lantus 30 units HS * Novolog 12-15 units TIDM * Prescribed U-500 insulin by Endo - patient reports not using * HbA1C = 107% (07/02/21) ASSESSMENT: 07/06/21: * Fasting BSG improving. Will slightly increase Lantus dose. * Patient did have episode of severe hyperglycemia ~0300 (308 mg/dL). Uncertain what the cause was. Improved after 14 units of NovoLog. * Post prandial values improved after change to CF/CR yesterday afternoon. Lunch BSG better today but remains > 200 mg/dL. Will slightly tighten carb coverage. 07/05/21: * Blood sugars remain in the mid 200s over last 24 hours, tighten CF and CR, no change in basal at this time as patient is very fearful of hypoglycemia. 07/04/21: * Yolanda received 80 units of SQ insulin yesterday (55 units basal + 25 units bolus) with BSGs 214, 177, 167, 173, 255 mg/dL * Fasting BSG remains elevated - still catching up from refused dose of Lantus 40 units on 07/02 PM. Will transition to BID dosing of Lantus to see if this aids in patient compliance (reports from nursing that patient feels doses are too high). Perhaps smaller doses, administered more frequently will give her more comfort. * Post prandial BSG control is adequate when patient agrees to calculated novolog dose. 07/03/21: * Yolanda received 25 units of SQ insulin yesterday (all bolus insulin) with BSGs 185, 271, 229, 182, 136 mg/dL * Fasting BSG of 214 mg/dL this morning. Patient refused Lantus last evening. If patient unwilling to take dose ordered for this morning, I will trial reducing the dose and administering BID rather than once daily. * Patient is very fearful of hypoglycemia. She commonly will refuse insulin or only accept partial doses if BSG is well controlled prior to administration. 07/02/21: * Ms Lua is a 60 y/o F with a PMH of T2DM on insulin who presents with hyperglycemia and metabolic abnormalities. * Patient started on home dose of Lantus 30 units which is appropriate per recent hospitalizations. Higher dose available for tonight if BSGs trend upwards during previous hospitalization patient did require up to 60 units of basal. * Continue Novolog as patient has been dictating doses. For example, per parameters, patient was suppose to receive 16 units of Novolog with lunch but only took 11 units. PLAN FOR INPATIENT GLYCEMIC CONTROL: * Basal insulin * Lantus 25-30 units SQ BID (30 units for BSG 160 mg/dL or more) * Bolus insulin * NovoLog per scale ACHS or Q6hrs while NPO * Goal Range: Low 110 mg/dL - High 140 mg/dL * Correction Factor: 12 mg/dL/unit * Nutritional / Prandial insulin per carb ratio of 1 unit per 3 grams CHO consumed
[2021-07-06] MEDS: ACETAMINOPHEN 500 MG TAB PO PRN (14:06)
[2021-07-06] MEDS: ENOXAPARIN INJ 40 MG/0.4 ML SYR SQ SCH (20:36)
[2021-07-06] MEDS: fluvoxaMINE MALEATE 50 MG TAB PO SCH (20:38)
[2021-07-06] MEDS: INSULIN GLARGINE SOLOSTAR 100 UNITS/ML 3 ML PEN SC SCH (20:41)
[2021-07-07] MEDS: traMADol HCL 50 MG TABLET PO PRN ×3 (02:41→17:54)
[2021-07-07] MEDS: LEVOTHYROXINE SODIUM 88 MCG TABLET PO SCH (06:13)
[2021-07-07 06:28] LABS: Calcium 8.4 mg/dl (8.5-10.1); Creatinine Clr Calc Pharmacy 57.3 ml/min; Est GFR (African American) 66.4 ml/min; Est GFR (Non-African American) 57.3 ml/min; Magnesium 1.6 mg/dl (1.7-2.4); Potassium 3.8 mmol/L (3.5-5.1)
[2021-07-07] MEDS: INSULIN ASPART PER UNIT SC SCH ×4 (09:01→21:03)
[2021-07-07] MEDS: ASPIRIN 81 MG ECTAB PO SCH (09:07)
[2021-07-07] MEDS: INSULIN GLARGINE SOLOSTAR 100 UNITS/ML 3 ML PEN SC SCH ×2 (09:07→20:58)
[2021-07-07] MEDS: busPIRone 5 MG TAB PO SCH (09:07)
[2021-07-07] MEDS: CHOLECALCIFEROL 1,000 UNITS 25 MCG TAB PO SCH (09:09)
[2021-07-07] MEDS: CELECOXIB 100 MG CAP PO SCH (09:09)
[2021-07-07] MEDS: CYANOCOBALAMIN (B-12) 500 MCG TABLET PO SCH (09:09)
[2021-07-07] MEDS: FAMOTIDINE 20 MG TAB PO SCH ×2 (09:09→21:03)
[2021-07-07] MEDS: lisinopril 40 MG TAB PO SCH (09:10)
[2021-07-07] MEDS: METOPROLOL TARTRATE 25 MG TAB PO SCH ×2 (09:10→20:55)
[2021-07-07] MEDS: MAGNESIUM OXIDE 400 MG TAB PO SCH (09:10)
[2021-07-07] MEDS: NYSTATIN POWDER 15GM BTL EXT SCH ×2 (09:11→20:59)
[2021-07-07] MEDS: POTASSIUM CHLORIDE CRTAB 20 MEQ TABCR PO SCH ×2 (09:11→20:56)
[2021-07-07] MEDS: TICAGRELOR 90 MG TAB PO SCH ×2 (09:12→20:54)
[2021-07-07] MEDS: MAGNESIUM SULFATE / D5W 1 GM/100 ML BAG IV SCH ×2 (09:25→11:15)
--- NOTE | 2021-07-07 13:10 | Hospitalist Progress Note ---
Date of Service July 07, 2021 Assessment & Plan (1) Acute hypokalemia: Plan: Suspected due to vomiting and diarrhea, recurrent per patient. oral magnesium supplementation may be worsening diarrhea Patient nausea still persistent but lessened and without vomiting, pt is complaining of poor diet choices, will allow back lactose and fiber to see if worsens symptoms -DM and follow closely for food/symptom triggers, did have NORMAL gastric emptying study 05/24/21 (2) Hypomagnesemia: Plan: - intermittently low, additional parenteral supplemetation needed (3) Nausea vomiting and diarrhea: Plan: -CT-A/P: No bowel wall thickening or obstruction. Colonic diverticulosis. No evidence for acute diverticulitis. Normal appendix. Prior cholecystectomy. No hydronephrosis. - - lactose intolerant and gluten free diet -Prior TTG IgA negative -Ondansetron for nausea -Stool PCR remains pending/uncollected (4) Acute hyperglycemia: Plan: uncontrolled diabetes - A1C 10.7%. -Previous doctor discussed DM management and goal blood sugar range extensively with patient. She reports that she feels under 140/150 is too low for her. Discussed normoglycemic ranges, and that even if she feels well due to having adjusted to higher blood sugars that persistent elevated blood sugars will still cause damage to small vessels, nerves, and put her at higher risk of autonomic dysfunction, heart disease, stroke, and DM complications. Upon discussion patient does express understanding of this and agrees to BSG goal of [id number] - Pharmacy following, appreciate recommendations (5) Diabetes type 2, uncontrolled: Plan: Typically on Basal Bolus insulin plus farxiga at home (6) Right upper quadrant abdominal pain: Plan: Chronic - thoroughly worked up previously. Suspect from food intolerance when she gets diarrhea. (7) Vitamin B12 deficiency: Plan: - cyanocobalamin 500 mcg PO daily (8) Vitamin D deficiency: Plan: Previously diagnosed but not on supplementation cholecalciferol 1000 units QAM (9) Hypothyroidism: Plan: TSH last noted in 2019, will repeat with AM labs Continue levothyroxine 88 mcg PO daily (10) Hypertension: Plan: blood pressure controlled with metoprolol tartrate 25 mg p.o. twice daily and lisinopril 40 mg p.o. daily consider adding amiloride for potassium sparing affects (11) Fatigue: Plan: did reduce many symptom oriented medications that may have sedation/fatigue as side affect on 07/05, stop luvox and will change antidepressant after washout period Plan: VTE prophylaxis - Lovenox 40 mg SQ daily Diet - , gluten-free, type 2 diabetes Disposition -medical Admission and Anticipated Discharge Date Admission Date: July 01, 2021 Subjective PT continues to complain of feeling extremely fatigued, improving nausea, still no vomiting or diarrhea, gluten free diet continues. will allow lactose and see if it exacerbates her nausea did reduce or eliminate medications that can be associated with fatigue no complaints of missing them, now also c/o back pain that examines at paraspinous reproducible back pain has local heat, stopping antidepressant Review of Systems Review of Systems: Mild distress and moderate fatigue no headache, no visual changes no speech or swallowing issues no chest pain, pressure or palpitations no shortness of breath, cough or wheezes right upper abdomen pain not as much an issue today, very mild nausea without vomiting or diarrhea no dysuria, hematuria or frequency no focal joint pain or swelling paraspinous mid back pain, CVA tenderness or radicular pain no bruising, bleeding or rashes no focal signs of weakness or numbness or altered sensation no complaints of anxiety or depression.. Physical Exam Physical Exam: The patient appeared well nourished and normally developed. Vital signs as documented. Head exam is normocephalic atraumatic Neck is without JVD, thyromegaly, or carotid bruits. Lungs are clear to auscultation, no focal loss of breath sounds Cardiac exam, Rhythm is regular.. No murmurs, rubs or gallops. Abdominal exam reveals normal bowel sounds, soft ruq tenderness mildly present, large scar in right upper quadrant from previous cholecystectomy Extremities are nonedematous and both pedal pulses are present Neurologic exam is alert and oriented, no focal loss of strength or sensation Skin is without bruises or rashes Psychologically is without concerns for anxiety or depression.. Results & Data Results & Data ([facility]) Vital Signs (Past 12 Hours) Vital Signs Temp Pulse Resp BP Pulse Ox 07/07/21 07:07 97.5 F L 70 17 169/79 H 94 PG Care Time/CCT Total # of Minutes Spent Total Time Spent with Patient: Total time spent is greater than 50% in coordination of care (as documented) at patient's floor/unit and/or counseling patient: Coding Level of Care Code 19829 Subseq Hosp Care Lvl 2 Diagnoses Acute hypokalemia E87.6 Hypomagnesemia E83.42 Nausea vomiting and diarrhea R11.2; R19.7 Acute hyperglycemia R73.9 Diabetes type 2, uncontrolled E11.65 Right upper quadrant abdominal pain R10.11 Vitamin B12 deficiency E53.8 Vitamin D deficiency E55.9 Hypothyroidism E03.9 Hypertension I10 Fatigue R53.83
[2021-07-07] MEDS: ONDANSETRON INJ 2 MG/ML 2 ML VIAL IV PRN (17:55)
[2021-07-07] MEDS: ENOXAPARIN INJ 40 MG/0.4 ML SYR SQ SCH (20:54)
[2021-07-08] MEDS: traMADol HCL 50 MG TABLET PO PRN ×3 (05:17→19:31)
[2021-07-08] MEDS: LEVOTHYROXINE SODIUM 88 MCG TABLET PO SCH (05:18)
[2021-07-08] MEDS: ACETAMINOPHEN 500 MG TAB PO PRN (07:56)
[2021-07-08] MEDS: FAMOTIDINE 20 MG TAB PO SCH ×2 (09:17→21:20)
[2021-07-08] MEDS: INSULIN ASPART PER UNIT SC SCH ×4 (09:17→21:20)
[2021-07-08] MEDS: INSULIN GLARGINE SOLOSTAR 100 UNITS/ML 3 ML PEN SC SCH ×2 (09:18→21:15)
[2021-07-08] MEDS: NYSTATIN POWDER 15GM BTL EXT SCH ×2 (09:19→21:16)
[2021-07-08] MEDS: ASPIRIN 81 MG ECTAB PO SCH (09:20)
[2021-07-08] MEDS: lisinopril 40 MG TAB PO SCH (09:20)
[2021-07-08] MEDS: CELECOXIB 100 MG CAP PO SCH (09:20)
[2021-07-08] MEDS: CHOLECALCIFEROL 1,000 UNITS 25 MCG TAB PO SCH (09:20)
[2021-07-08] MEDS: CYANOCOBALAMIN (B-12) 500 MCG TABLET PO SCH (09:20)
[2021-07-08] MEDS: POTASSIUM CHLORIDE CRTAB 20 MEQ TABCR PO SCH ×2 (09:21→21:14)
[2021-07-08] MEDS: METOPROLOL TARTRATE 25 MG TAB PO SCH ×2 (09:21→21:14)
[2021-07-08] MEDS: MAGNESIUM OXIDE 400 MG TAB PO SCH (09:21)
[2021-07-08] MEDS: TICAGRELOR 90 MG TAB PO SCH ×2 (09:21→21:14)
[2021-07-08 10:13] LABS: BUN Creatinine Ratio 20.2 (10-20); Calcium 9.1 mg/dl (8.5-10.1); Creatinine Clr Calc Pharmacy 71.6 ml/min; Est GFR (African American) 86.9 ml/min; Magnesium 1.5 mg/dl (1.7-2.4); Potassium 4.5 mmol/L (3.5-5.1)
--- NOTE | 2021-07-08 12:14 | XRay Report ---
XR thoracic spine 2V CLINICAL HISTORY: Back pain. Evaluate for compression fracture.. COMPARISON STUDY: CT of the thoracic spine from 04/13/2021 TECHNIQUE: 3 views of the thoracic spine FINDINGS: The bones are osteopenic. Minimal old anterior wedge deformities present involving the T8 v ertebral body. There is no evidence for an acute fracture or malalignment. The heights of the remaini ng thoracic vertebral bodies are maintained. Mild to moderate disc space narrowing seen throughout th e thoracic spine. The pedicles and paraspinal soft tissues are normal. IMPRESSION: 1. Osteopenia with minimal anterior wedge deformity of T8. 2. No acute compression fracture. 3. Degenerative disc disease. ACT 112: Negative or not required by law. Electronically signed by: Renaldo Bone M.D. 07/08/2021 12:12 PM
--- NOTE | 2021-07-08 13:41 | Hospitalist Progress Note ---
Date of Service July 08, 2021 Assessment & Plan (1) Acute hypokalemia: Plan: Suspected due to vomiting and diarrhea, recurrent per patient. resolved oral magnesium supplementation may be worsening diarrhea on lower dose Patient nausea still persistent without vomiting, tolerating advancing diet -DM and follow closely for food/symptom triggers, did have NORMAL gastric emptying study 05/24/21 (2) Hypomagnesemia: Plan: - intermittently low, additional parenteral supplemetation needed (3) Nausea vomiting and diarrhea: Plan: -CT-A/P: No bowel wall thickening or obstruction. Colonic diverticulosis. No evidence for acute diverticulitis. Normal appendix. Prior cholecystectomy. No hydronephrosis. -Prior TTG IgA negative -Ondansetron for nausea -Stool PCR remains pending/uncollected (4) Acute hyperglycemia: Plan: uncontrolled diabetes - A1C 10.7%. -Previous doctor discussed DM management and goal blood sugar range extensively with patient. She reports that she feels under 140/150 is too low for her. Discussed normoglycemic ranges, and that even if she feels well due to having adjusted to higher blood sugars that persistent elevated blood sugars will still cause damage to small vessels, nerves, and put her at higher risk of autonomic dysfunction, heart disease, stroke, and DM complications. Upon discussion patient does express understanding of this and agrees to BSG goal of [id number] - Pharmacy following, appreciate recommendations (5) Diabetes type 2, uncontrolled: Plan: Typically on Basal Bolus insulin plus farxiga at home (6) Right upper quadrant abdominal pain: Plan: Chronic - thoroughly worked up previously. Suspect from food intolerance when she gets diarrhea. (7) Vitamin B12 deficiency: Plan: - cyanocobalamin 500 mcg PO daily (8) Vitamin D deficiency: Plan: Previously diagnosed but not on supplementation cholecalciferol 1000 units QAM (9) Hypothyroidism: Plan: TSH last noted in 2019, will repeat with AM labs Continue levothyroxine 88 mcg PO daily (10) Hypertension: Plan: blood pressure controlled with metoprolol tartrate 25 mg p.o. twice daily and lisinopril 40 mg p.o. daily consider adding amiloride for potassium sparing affects (11) Fatigue: Plan: did reduce many symptom oriented medications that may have sedation/fatigue as side affect on 07/05, stop luvox and will change antidepressant after washout period (12) Back pain: Plan: Pt has paraspinpous back pain, old compression fracture, adding scheduled tylenol and prn ultram Plan: VTE prophylaxis - Lovenox 40 mg SQ daily Diet - , gluten-free, type 2 diabetes Disposition -medical Admission and Anticipated Discharge Date Admission Date: July 01, 2021 Subjective PT biggest issue is fatigue and back pain, paraspinous, improving nausea, still no vomiting or diarrhea, no worsening with loosening of dietary restriction did reduce or eliminate medications that can be associated with fatigue no complaints of missing them, now also c/o back pain that examines at paraspinous reproducible back pain has local heat, stopping antidepressant, t spine x ray only with old compression fracture no acute changes Review of Systems Review of Systems: Mild distress and moderate fatigue no headache, no visual changes no speech or swallowing issues no chest pain, pressure or palpitations no shortness of breath, cough or wheezes right upper abdomen pain not as much an issue today, very mild nausea without vomiting or diarrhea no dysuria, hematuria or frequency no focal joint pain or swelling paraspinous mid back pain, CVA tenderness or radicular pain no bruising, bleeding or rashes no focal signs of weakness or numbness or altered sensation no complaints of anxiety or depression.. Physical Exam Physical Exam: The patient appeared well nourished and normally developed. Vital signs as documented. Head exam is normocephalic atraumatic Neck is without JVD, thyromegaly, or carotid bruits. Lungs are clear to auscultation, no focal loss of breath sounds Cardiac exam, Rhythm is regular.. No murmurs, rubs or gallops. Abdominal exam reveals normal bowel sounds, soft ruq tenderness mildly present, large scar in right upper quadrant from previous cholecystectomy Extremities are nonedematous and both pedal pulses are present Neurologic exam is alert and oriented, no focal loss of strength or sensation Skin is without bruises or rashes Psychologically is without concerns for anxiety or depression. Results & Data Results & Data ([facility]) Vital Signs (Past 12 Hours) Vital Signs Temp Pulse Resp BP Pulse Ox 07/08/21 07:50 97.9 F 66 16 150/86 H 96 PG Care Time/CCT Total # of Minutes Spent Total Time Spent with Patient: Total time spent is greater than 50% in coordination of care (as documented) at patient's floor/unit and/or counseling patient: Coding Level of Care Code 56455 Subseq Hosp Care Lvl 2 Diagnoses Acute hypokalemia E87.6 Hypomagnesemia E83.42 Nausea vomiting and diarrhea R11.2; R19.7 Acute hyperglycemia R73.9 Diabetes type 2, uncontrolled E11.65 Right upper quadrant abdominal pain R10.11 Vitamin B12 deficiency E53.8 Vitamin D deficiency E55.9 Hypothyroidism E03.9 Hypertension I10 Fatigue R53.83 Back pain M54.9
[2021-07-08] MEDS: ACETAMINOPHEN 500 MG TAB PO SCH ×2 (14:18→21:13)
[2021-07-08] MEDS: ENOXAPARIN INJ 40 MG/0.4 ML SYR SQ SCH (21:12)
[2021-07-09] MEDS: traMADol HCL 50 MG TABLET PO PRN ×2 (02:18→12:39)
[2021-07-09] MEDS: LEVOTHYROXINE SODIUM 88 MCG TABLET PO SCH (06:08)
[2021-07-09] MEDS: ONDANSETRON INJ 2 MG/ML 2 ML VIAL IV PRN ×2 (07:54→17:46)
[2021-07-09] MEDS: lisinopril 40 MG TAB PO SCH (07:56)
[2021-07-09] MEDS: METOPROLOL TARTRATE 25 MG TAB PO SCH ×2 (07:56→21:05)
--- NOTE | 2021-07-09 08:29 | Pharmacy Report ---
Pharmacy Glycemic Short Note 2 - Date of Service July 09, 2021 - Glycemic Short BSG Results (Last 24 hours): 07/08/21 07/08/21 07/08/21 09:02 12:12 16:58 Glucose 198 H POC Glucose 222 H 76 07/08/21 07/09/21 07/09/21 20:33 00:13 02:18 Glucose POC Glucose 120 H 92 121 H 07/09/21 07/09/21 05:55 08:20 Glucose POC Glucose 118 H 125 H OUTPATIENT ANTIDIABETIC REGIMEN: * Lantus 30 units HS * Novolog 12-15 units TIDM * Prescribed U-500 insulin by Endo - patient reports not using * HbA1C = 107% (07/02/21) ASSESSMENT: 07/09/21: * BSGs reasonably controlled, 162, 222, 76, and 120 mg/dL yesterday * Received 124 units of insulin (~50/50 basal bolus split) * Given significant decrease in BSG from lunch to dinner, will slightly loosen CF today * Fasting BSG improved today at 125 mg/dL, will plan to continue current basal dose 07/06/21: * Fasting BSG improving. Will slightly increase Lantus dose. * Patient did have episode of severe hyperglycemia ~0300 (308 mg/dL). Uncertain what the cause was. Improved after 14 units of NovoLog. * Post prandial values improved after change to CF/CR yesterday afternoon. Lunch BSG better today but remains > 200 mg/dL. Will slightly tighten carb coverage. 07/02/21 (initial): * Ms Lua is a 60 y/o F with a PMH of T2DM on insulin who presents with hyperglycemia and metabolic abnormalities. * Patient started on home dose of Lantus 30 units which is appropriate per recent hospitalizations. Higher dose available for tonight if BSGs trend upwards during previous hospitalization patient did require up to 60 units of basal. * Continue Novolog as patient has been dictating doses. For example, per parameters, patient was suppose to receive 16 units of Novolog with lunch but only took 11 units. PLAN FOR INPATIENT GLYCEMIC CONTROL: * Basal insulin * Lantus 35 units SC qAM * Lantus 20-25 units SC HS * Bolus insulin * NovoLog per scale ACHS or Q6hrs while NPO * Goal Range: Low 110 mg/dL - High 140 mg/dL * Correction Factor: 15 mg/dL/unit * Nutritional / Prandial insulin per carb ratio of 1 unit per 3 grams CHO consumed
[2021-07-09] MEDS: INSULIN ASPART PER UNIT SC SCH ×4 (08:42→21:11)
[2021-07-09] MEDS: INSULIN GLARGINE SOLOSTAR 100 UNITS/ML 3 ML PEN SC SCH ×2 (08:47→21:04)
[2021-07-09] MEDS: ASPIRIN 81 MG ECTAB PO SCH (08:53)
[2021-07-09] MEDS: TICAGRELOR 90 MG TAB PO SCH ×2 (08:53→20:56)
[2021-07-09] MEDS: CYANOCOBALAMIN (B-12) 500 MCG TABLET PO SCH (08:54)
[2021-07-09] MEDS: POTASSIUM CHLORIDE CRTAB 20 MEQ TABCR PO SCH ×2 (08:54→20:56)
[2021-07-09] MEDS: CHOLECALCIFEROL 1,000 UNITS 25 MCG TAB PO SCH (08:54)
[2021-07-09] MEDS: MAGNESIUM OXIDE 400 MG TAB PO SCH (08:54)
[2021-07-09] MEDS: CELECOXIB 100 MG CAP PO SCH (08:55)
[2021-07-09] MEDS: ACETAMINOPHEN 500 MG TAB PO SCH ×3 (08:55→20:57)
[2021-07-09] MEDS: NYSTATIN POWDER 15GM BTL EXT SCH ×2 (08:57→20:56)
[2021-07-09] MEDS: FAMOTIDINE 20 MG TAB PO SCH ×2 (10:23→21:12)
[2021-07-09] MEDS ORDERED: DICLOFENAC SOD 1% GEL 100 GM TUBE EXT PRN (13:34)
--- NOTE | 2021-07-09 14:40 | XRay Report ---
XR KUB/Abdomen 1 view CLINICAL HISTORY: constipation- assess stool burden. COMPARISON STUDY: 05/25/2021 TECHNIQUE: 2 supine radiographs FINDINGS: The bowel gas pattern is within normal limits without evidence for dilatation or obstruction. There i s mild fecal stasis without evidence for impaction or obstruction. There is no evidence for organomeg saira or gross intra-abdominal mass. No abnormal calcifications are seen along the course of the urinar y tracts bilaterally. No acute osseous pathology. IMPRESSION: 1. No acute intra-abdominal abnormality. 2. Mild fecal stasis without evidence for impaction or obstruction. ACT 112: Negative or not required by law. Electronically signed by: Renaldo Bone M.D. 07/09/2021 2:38 PM
[2021-07-09] MEDS: DICLOFENAC SOD 1% GEL 100 GM TUBE EXT PRN ×2 (14:41→20:58)
[2021-07-09] MEDS: PANTOprazole 40 MG TAB PO SCH (14:41)
[2021-07-09] MEDS ORDERED: SOD PHOSPHATE/SOD BIPHOSPHATE ENEMA 132 ML BTL PR PRN (15:35)
[2021-07-09] MEDS: POLYETHYLENE (MIRALAX) 17 GM PACK PO SCH (16:01)
[2021-07-09] MEDS ORDERED: hydrALAZINE HCL 20 MG/ML VIAL IV STA (16:31)
[2021-07-09] MEDS ORDERED: hydrALAZINE HCL 20 MG/ML VIAL IV PRN (16:31)
--- NOTE | 2021-07-09 16:54 | Hospitalist Progress Note ---
Date of Service July 09, 2021 Assessment & Plan (1) Nausea vomiting and diarrhea: Plan: Patient initially hospitalized with intractable nausea and vomiting and associated electrolyte abnormalities Despite these reports, patient reports she was not having diarrhea and claims that she has not had a bowel movement since prior to this hospital stay. She seems inconsistent with her complaints Nausea and vomiting seems to be a recurrent problem for patient Has had an extensive work-up including: --CT of the abdomen and pelvis: No bowel wall thickening or obstruction. Colonic diverticulosis. No evidence for acute diverticulitis. Normal appendix. P rior cholecystectomy. No hydronephrosis. --Celiac panel: Negative --MRCP: Nonacute. No ductal dilatation. Normal caliber bile duct with no evidence of choledocholithiasis. Prior cholecystectomy. --EGD done 04/10 showing pathology report consistent with chronic gastritis --Gastric emptying study done 06/08 and normal Has been empirically placed on a gluten-free diet which will take 2 to 4 weeks to become effective. Her pathology from EGD was negative for celiac sprue but she very well may have gluten intolerance. Would explain her electrolyte abnormalities At this point, I am uncertain the exact etiology of her symptoms and again, her story seems inconsistent She is on dual antiplatelet therapy and Celebrex and not on GI prophylaxis. Her EGD pathology report does show findings consistent with chronic gastritis. This very well may be the cause of her symptoms Given her reports of "no BM since admitted" despite reports of diarrhea, a KUB was obtained that does show moderate stool burden. In addition to gastritis, constipation may be contributing to her nausea and vomiting Patient already started on Pepcid for GI prophylaxis (upon admission). Will add Protonix. Low threshold to add Carafate if needed for symptomatic relief. Stop Celebrex and can transition to topical Voltaren to right knee/back Will give fleets enema and start MiraLAX to trim setter helper in her constipation and see if this alleviates her nausea and vomiting (2) Acute hypokalemia: Plan: Suspected due to vomiting and diarrhea, recurrent per patient. resolved Supplemented/resolved (3) Hypomagnesemia: Plan: - intermittently low, additional parenteral supplementation as needed (4) Accelerated hypertension: Plan: Blood pressure has been fluctuating throughout this hospital stay. Currently 191/91. No headache, altered mental status, blurred visionor epistaxis We will provide hydralazine IV X1 dose now Continue lisinopril and metoprolol as prior to arrival Additional blood pressure medications will be added if needed. Uncertain if accelerated BP presently due to back pain as there have been periods where patient has been normotensive (5) Acute hyperglycemia: Plan: uncontrolled diabetes - A1C 10.7%. -Previous doctor discussed DM management and goal blood sugar range extensively with patient. She reports that she feels under 140/150 is too low for her. Discussed normoglycemic ranges, and that even if she feels well due to having adjusted to higher blood sugars that persistent elevated blood sugars will still cause damage to small vessels, nerves, and put her at higher risk of autonomic dysfunction, heart disease, stroke, and DM complications. Upon discussion patient does express understanding of this and agrees to BSG goal of [id number] - Pharmacy following, appreciate recommendations (6) Diabetes type 2, uncontrolled: Plan: Typically on Basal Bolus insulin plus farxiga at home (7) Right upper quadrant abdominal pain: Plan: Chronic - thoroughly worked up previously again, may be secondary to gastritis and/or constipation (8) Vitamin B12 deficiency: Plan: - cyanocobalamin 500 mcg PO daily (9) Vitamin D deficiency: Plan: Previously diagnosed but not on supplementation cholecalciferol 1000 units QAM (10) Hypothyroidism: Plan: TSH last noted in 2019, will repeat with AM labs Continue levothyroxine 88 mcg PO daily (11) Fatigue: Plan: did reduce many symptom oriented medications that may have sedation/fatigue as side affect on 07/05, stopped luvox and changed/stopped antidepressant after washout period (12) Back pain: Plan: Pt has paraspinpous back pain, old compression fracture, added scheduled tylenol and prn ultram DC oral Celebrex (as contributing to gastritisespecially in the setting of dual antiplatelet therapy). Transition to topical Voltaren that she can utilize to the back and her right knee Plan: VTE prophylaxis - Lovenox 40 mg SQ daily Diet - gluten-free, type 2 diabetes Disposition -medical Plan of care to be discussed with Dr. Yeh. Further orders as warranted. Admission and Anticipated Discharge Date Admission Date: July 01, 2021 Subjective Patient seen on daily rounds today. Hospitalized with intractable nausea and vomiting. Seems to be recurrent for patient. Recurrent hospitalizations. Work-up includes CT of the A/P, MRCP, liver ultrasound, EGD, gastric emptying studyall inconclusive other than chronic gastritis seen on pathology report from EGD. Has been keeping a food diary and feels that it is consistent/associated with certain foods (containing gluten). Has been empirically placed on a gluten-free diet. No significant change in her nausea. Denies diarrhea. She is claiming that she has not had a BM since hospitalization (8 days ago) but it is documented that she presented with nausea/vomiting and diarrhea. Is passing flatus. No significant abdominal pain. Upon further questioning, does admit to a globus sensation and excessive eructation. Has been complaining of low back pain throughout this hospital stay. X-rays done showing degenerative disc disease. Does take chronic Celebrex for right knee pain. Otherwise, this is not controlling her back pain. No radicular symptoms. Review of Systems Review of Systems: All systems reviewed and are unremarkable except as noted in HPI and below Denies fevers, chills, headache, nasal congestion, sore throat, cough, chest pain, shortness of breath, palpitations, orthopnea, PND, diarrhea, dysuria, hematuria, frequency, back pain, joint pain or swelling, easy bruising or bleeding, skin lesions or rashes. Physical Exam Physical Exam: General: Resting comfortably in her hospital bed. She does not appear ill or toxic NAD. HEENT: Head is AT/NC. Buccal mucosa is moist and pink Neck: No JVD. Negative hepatojugular reflex Cardiac: RRR with 1/6 to 2/6 PIO Lungs: CTA without W/R/R Abdomen: Normoactive X4. Abdomen soft and tender in the right lower quadrant and epigastrium/left upper quadrant Extremities: No peripheral clubbing cyanosis or edema. Tender upon palpation to the lower lumbar spine Neuro: A&O X4. Cranial nerves II through XII are grossly intact. No focal neuro deficits Skin: No obvious skin lesions or rashes Psych: Appropriate affect. Pleasant and cooperative Results & Data Results & Data ([facility]) Vital Signs (Past 12 Hours) Vital Signs Temp Pulse Resp BP BP Pulse Ox 07/09/21 16:23 191/91 H 07/09/21 16:18 36.6 C 64 17 195/95 H 95 07/09/21 09:52 156/76 H 07/09/21 07:23 36.5 C 57 L 16 188/78 H 98 Laboratory Results No lab data today PG Care Time/CCT Total # of Minutes Spent Total Time Spent with Patient: Total time spent is greater than 50% in coordination of care (as documented) at patient's floor/unit and/or counseling patient: Coding Level of Care Code 38282 Subseq Hosp Care Lvl 2 Diagnoses Acute hypokalemia E87.6 Hypomagnesemia E83.42 Nausea vomiting and diarrhea R11.2; R19.7 Acute hyperglycemia R73.9 Diabetes type 2, uncontrolled E11.65 Right upper quadrant abdominal pain R10.11 Vitamin B12 deficiency E53.8 Vitamin D deficiency E55.9 Hypothyroidism E03.9 Fatigue R53.83 Back pain M54.9 Accelerated hypertension I10
[2021-07-09] MEDS: ENOXAPARIN INJ 40 MG/0.4 ML SYR SQ SCH (20:55)
[2021-07-10] MEDS: ONDANSETRON INJ 2 MG/ML 2 ML VIAL IV PRN ×2 (04:09→08:18)
[2021-07-10] MEDS: LEVOTHYROXINE SODIUM 88 MCG TABLET PO SCH (05:45)
[2021-07-10 06:14] LABS: Hematocrit (blood only) 41.5 % (37-47); Hemoglobin 14.2 g/dL (12.0-16.0); Mean Corpuscular Hemoglobin 29.6 pg (25-34); Mean Corpuscular Hgb Conc 34.2 g/dL (32-36); Mean Corpuscular Volume 86.5 fL (80-100); Mean Platelet Volume 10.7 fL (7.4-10.4); Platelet Count 282 K/uL (130-400); RDW Coefficient of Variation 14.3 % (11.5-14.5); RDW Standard Deviation 45.3 fL (36.4-46.3); White Blood Count 8.11 K/uL (4.8-10.8)
[2021-07-10 06:36] LABS: BUN Creatinine Ratio 16.3 (10-20); Calcium 9.9 mg/dl (8.5-10.1); Est GFR (African American) 84.5 ml/min; Est GFR (Non-African American) 72.9 ml/min; Magnesium 1.5 mg/dl (1.7-2.4); Potassium 5.3 mmol/L (3.5-5.1)
[2021-07-10] MEDS: METOPROLOL TARTRATE 25 MG TAB PO SCH ×2 (07:28→20:45)
[2021-07-10] MEDS: traMADol HCL 50 MG TABLET PO PRN (07:28)
[2021-07-10] MEDS: lisinopril 40 MG TAB PO SCH (07:29)
[2021-07-10] MEDS: POLYETHYLENE (MIRALAX) 17 GM PACK PO SCH (08:20)
[2021-07-10] MEDS: DICLOFENAC SOD 1% GEL 100 GM TUBE EXT PRN ×2 (08:21→14:46)
[2021-07-10] MEDS: ACETAMINOPHEN 500 MG TAB PO SCH ×3 (08:24→20:42)
[2021-07-10] MEDS: POTASSIUM CHLORIDE CRTAB 20 MEQ TABCR PO SCH (08:25)
[2021-07-10] MEDS: TICAGRELOR 90 MG TAB PO SCH ×2 (08:25→20:43)
[2021-07-10] MEDS: PANTOprazole 40 MG TAB PO SCH (08:26)
[2021-07-10] MEDS: ASPIRIN 81 MG ECTAB PO SCH (08:26)
[2021-07-10] MEDS: CHOLECALCIFEROL 1,000 UNITS 25 MCG TAB PO SCH (08:26)
[2021-07-10] MEDS: NYSTATIN POWDER 15GM BTL EXT SCH ×2 (08:27→20:45)
[2021-07-10] MEDS: MAGNESIUM OXIDE 400 MG TAB PO SCH ×2 (08:27→20:44)
[2021-07-10] MEDS: CYANOCOBALAMIN (B-12) 500 MCG TABLET PO SCH (08:27)
[2021-07-10] MEDS: INSULIN ASPART PER UNIT SC SCH ×4 (09:06→21:48)
[2021-07-10] MEDS: INSULIN GLARGINE SOLOSTAR 100 UNITS/ML 3 ML PEN SC SCH ×2 (09:09→20:48)
[2021-07-10] MEDS: MAGNESIUM SULFATE / D5W 1 GM/100 ML BAG IV SCH ×2 (09:35→11:59)
[2021-07-10] MEDS: NIFEdipine EXTENDED REL 30 MG TABCR PO SCH (09:35)
[2021-07-10] MEDS: FAMOTIDINE 20 MG TAB PO SCH ×2 (11:59→21:02)
--- NOTE | 2021-07-10 14:42 | Hospitalist Progress Note ---
Date of Service July 10, 2021 Assessment & Plan (1) Nausea vomiting and diarrhea: Plan: Patient initially hospitalized with intractable nausea and vomiting and associated electrolyte abnormalities Despite these reports, patient reports she was not having diarrhea and claims that she has not had a bowel movement since prior to this hospital stay. She seems inconsistent with her complaints Nausea and vomiting seems to be a recurrent problem for patient Has had an extensive work-up including: --CT of the abdomen and pelvis: No bowel wall thickening or obstruction. Colonic diverticulosis. No evidence for acute diverticulitis. Normal appendix. P rior cholecystectomy. No hydronephrosis. --Celiac panel: Negative --MRCP: Nonacute. No ductal dilatation. Normal caliber bile duct with no evidence of choledocholithiasis. Prior cholecystectomy. --EGD done 04/10 showing pathology report consistent with chronic gastritis --Gastric emptying study done 06/08 and normal Has been empirically placed on a gluten-free diet which will take 2 to 4 weeks to become effective. Her pathology from EGD was negative for celiac sprue but she very well may have gluten intolerance. Would explain her electrolyte abnormalities At this point, I am uncertain the exact etiology of her symptoms and again, her story seems inconsistent. I do believe gastritis and constipation are currently contributing to her nausea She is on dual antiplatelet therapy and Celebrex and not on GI prophylaxis. Her EGD pathology report does show findings consistent with chronic gastritis. This very well may be the cause of her symptoms Given her reports of "no BM since admitted" despite reports of diarrhea, a KUB was obtained that does show moderate stool burden. In addition to gastritis, constipation may be contributing to her nausea and vomiting Patient already started on Pepcid for GI prophylaxis (upon admission). Protonix has since been added Low threshold to add Carafate if needed for symptomatic relief. Celebrex stopped and transitioned to topical Voltaren to right knee/back MiraLAX ordered in addition to fleets enema but patient has been refusing (2) Acute hypokalemia: Plan: Suspected due to vomiting and diarrhea, recurrent per patient. resolved Supplemented/resolved (3) Hypomagnesemia: Plan: - intermittently low, additional parenteral supplementation as needed (4) Accelerated hypertension: Plan: Blood pressure has been fluctuating throughout this hospital stay. Currently 191/91. No headache, altered mental status, blurred visionor epistaxis Continue lisinopril and metoprolol as prior to arrival Her BP being accelerated may be contributing to the fact that she is not feeling well. Upon review of her most recent echocardiogram, she has a preserved EF. Will add Procardia for added BP control Continue IV hydralazine with parameters (5) Acute hyperglycemia: Plan: uncontrolled diabetes - A1C 10.7%. -Previous doctor discussed DM management and goal blood sugar range extensively with patient. She reports that she feels under 140/150 is too low for her. Discussed normoglycemic ranges, and that even if she feels well due to having adjusted to higher blood sugars that persistent elevated blood sugars will still cause damage to small vessels, nerves, and put her at higher risk of autonomic dysfunction, heart disease, stroke, and DM complications. Upon discussion patient does express understanding of this and agrees to BSG goal of [id number] - Pharmacy following, appreciate recommendations (6) Diabetes type 2, uncontrolled: Plan: Typically on Basal Bolus insulin plus farxiga at home (7) Right upper quadrant abdominal pain: Plan: Chronic - thoroughly worked up previously again, may be secondary to gastritis and/or constipation (8) Vitamin B12 deficiency: Plan: - cyanocobalamin 500 mcg PO daily (9) Vitamin D deficiency: Plan: Previously diagnosed but not on supplementation cholecalciferol 1000 units QAM (10) Hypothyroidism: Plan: TSH last noted in 2019, will repeat with AM labs Continue levothyroxine 88 mcg PO daily (11) Fatigue: Plan: did reduce many symptom oriented medications that may have sedation/fatigue as side affect on 07/05, stopped luvox and changed/stopped antidepressant after washout period (12) Back pain: Plan: Pt has paraspinpous back pain, old compression fracture, added scheduled tylenol and prn ultram DC oral Celebrex (as contributing to gastritisespecially in the setting of dual antiplatelet therapy). Transition to topical Voltaren that she can utilize to the back and her right knee Plan: At this point, patient has been in the hospital for nearly 10 days. I have had a lengthy discussion with her in regards to what we can do to facilitate discharge to home. Every treatment option attempted or discussed, patient refuses but yet reports that she does not feel well enough to be discharged. I explained that hospitals are not safe places to be and at this point, she meets no acuity to remain in the hospital. Her BP is slightly accelerated for which we will keep her today to add additional antihypertensive medications. She is complaining of persistent nausea which I believed to be in part from constipation but she is refusing medications to help her move her bowels. After a very lengthy discussion, she is agreeable to try bowel stimulating agents. I was very honest and abrupt with patient regarding things she needs to do to help alleviate her symptoms and facilitate discharge to home. I have encouraged her to ambulate. Will consult PT/OT. Goals today are for therapy, added BP control, treatment of her constipation in hopes that she can be discharged tomorrow. Admission and Anticipated Discharge Date Admission Date: July 01, 2021 Subjective Patient seen on daily rounds today. Continues to complain of constipation and nausea. She was ordered MiraLAX which she agreed to take but is refusing the fleets enema and/or a Dulcolax suppository. Patient continues to complain of "just not feeling well" and she "just wants to lay here" and "stay in the hospital because she feels better here". Despite no BM, she is passing flatus. She denies abdominal pain. Still with nausea without emesis. Denies fevers, chills, chest pain, shortness of breath, dysuria, hematuria or frequency. Patient's BP has been accelerated for which IV hydralazine has been required. She is on her usual antihypertensive medications. Reports this is an intermittent problem. She denies headaches, epistaxis, but admits that she just does not feel well. Review of Systems Review of Systems: All systems reviewed and are unremarkable except as noted in HPI and below Denies fevers, chills, headache, nasal congestion, sore throat, cough, chest pain, shortness of breath, palpitations, orthopnea, PND, abdominal pain, vomiting, diarrhea, constipation, dysuria, hematuria, frequency, back pain, joint pain or swelling, easy bruising or bleeding, skin lesions or rashes. Physical Exam Physical Exam: General: Resting comfortably in her hospital bed. She does not appear ill or toxic. NAD. HEENT: Head is AT/NC. Buccal mucosa is moist and pink Neck: No JVD. Negative hepatojugular reflex Cardiac: RRR without M/G/R Lungs: CTA without W/R/R Abdomen: Normoactive X4. Abdomen bloated but soft. Tender in the right lower quadrant Extremities: No peripheral clubbing cyanosis or edema Neuro: A&O X4. Cranial nerves II through XII are grossly intact. No focal neuro deficits Skin: No obvious skin lesions or rashes Psych: Appropriate affect. Pleasant and cooperative Results & Data Results & Data ([facility]) Vital Signs (Past 12 Hours) Vital Signs Temp Pulse Resp BP BP Pulse Ox 07/10/21 12:13 149/83 H 07/10/21 07:05 173/92 H 07/10/21 06:50 36.9 C 73 20 199/93 H 202/106 H 97 Laboratory Results 07/10/21 05:23 07/10/21 12:17 PG Care Time/CCT Total # of Minutes Spent Total Time Spent with Patient: Total time spent is greater than 50% in coordination of care (as documented) at patient's floor/unit and/or counseling patient: Coding Level of Care Code 19444 Subseq Hosp Care Lvl 2 Diagnoses Nausea vomiting and diarrhea R11.2; R19.7 Acute hypokalemia E87.6 Hypomagnesemia E83.42 Accelerated hypertension I10 Acute hyperglycemia R73.9 Diabetes type 2, uncontrolled E11.65 Right upper quadrant abdominal pain R10.11 Vitamin B12 deficiency E53.8 Vitamin D deficiency E55.9 Hypothyroidism E03.9 Fatigue R53.83 Back pain M54.9
[2021-07-10] MEDS: ENOXAPARIN INJ 40 MG/0.4 ML SYR SQ SCH (20:42)
[2021-07-11] MEDS: LEVOTHYROXINE SODIUM 88 MCG TABLET PO SCH (05:11)
[2021-07-11] MEDS: POLYETHYLENE (MIRALAX) 17 GM PACK PO SCH (08:01)
[2021-07-11] MEDS ORDERED: INSULIN GLARGINE SOLOSTAR 100 UNITS/ML 3 ML PEN SC SCH (09:00)
--- NOTE | 2021-07-11 09:11 | Pharmacy Report ---
Pharmacy Glycemic Short Note 2 - Date of Service July 11, 2021 - Glycemic Short BSG Results (Last 24 hours): 07/10/21 07/10/21 07/10/21 12:12 17:08 20:23 POC Glucose 247 H 166 H 138 H 07/11/21 07/11/21 07/11/21 00:32 05:12 08:13 POC Glucose 132 H 213 H 216 H OUTPATIENT ANTIDIABETIC REGIMEN: * Lantus 30 units HS * Novolog 12-15 units TIDM * Prescribed U-500 insulin by Endo - patient reports not using * HbA1C = 107% (07/02/21) ASSESSMENT: 07/11/21: * BSGs yesterday of 220, 247, 166, and 138 mg/dL, fasting BSG of 213 mg/dL this morning * Of note no carbs documented with breakfast yesterday morning, unclear if this is indeed accurate * Will continue on with current Novolog parameters as BSGs were better controlled after lunch * Increase basal insulin today in light of elevated fasting BSG 07/09/21: * BSGs reasonably controlled, 162, 222, 76, and 120 mg/dL yesterday * Received 124 units of insulin (~50/50 basal bolus split) * Given significant decrease in BSG from lunch to dinner, will slightly loosen CF today * Fasting BSG improved today at 125 mg/dL, will plan to continue current basal dose * Patient very fearful of hypoglycemia in the past, so will continue to be conservative with adjustments 07/06/21: * Fasting BSG improving. Will slightly increase Lantus dose. * Patient did have episode of severe hyperglycemia ~0300 (308 mg/dL). Uncertain what the cause was. Improved after 14 units of NovoLog. * Post prandial values improved after change to CF/CR yesterday afternoon. Lunch BSG better today but remains > 200 mg/dL. Will slightly tighten carb coverage. 07/02/21 (initial): * Ms Lua is a 60 y/o F with a PMH of T2DM on insulin who presents with hyperglycemia and metabolic abnormalities. * Patient started on home dose of Lantus 30 units which is appropriate per recent hospitalizations. Higher dose available for tonight if BSGs trend upwards during previous hospitalization patient did require up to 60 units of basal. * Continue Novolog as patient has been dictating doses. For example, per parameters, patient was suppose to receive 16 units of Novolog with lunch but only took 11 units. PLAN FOR INPATIENT GLYCEMIC CONTROL: * Basal insulin * Lantus 40 units SC qAM * Lantus 25-30 units SC HS * Bolus insulin * NovoLog per scale ACHS or Q6hrs while NPO * Goal Range: Low 110 mg/dL - High 140 mg/dL * Correction Factor: 12 mg/dL/unit * Nutritional / Prandial insulin per carb ratio of 1 unit per 3 grams CHO consumed
[2021-07-11] MEDS: MAGNESIUM OXIDE 400 MG TAB PO SCH (09:12)
[2021-07-11] MEDS: METOPROLOL TARTRATE 25 MG TAB PO SCH (09:12)
[2021-07-11] MEDS: PANTOprazole 40 MG TAB PO SCH (09:13)
[2021-07-11] MEDS: CYANOCOBALAMIN (B-12) 500 MCG TABLET PO SCH (09:13)
[2021-07-11] MEDS: ASPIRIN 81 MG ECTAB PO SCH (09:13)
[2021-07-11] MEDS: CHOLECALCIFEROL 1,000 UNITS 25 MCG TAB PO SCH (09:13)
[2021-07-11] MEDS: NYSTATIN POWDER 15GM BTL EXT SCH (09:14)
[2021-07-11] MEDS: NIFEdipine EXTENDED REL 30 MG TABCR PO SCH (09:14)
[2021-07-11] MEDS: lisinopril 40 MG TAB PO SCH (09:14)
[2021-07-11] MEDS: TICAGRELOR 90 MG TAB PO SCH (09:14)
[2021-07-11] MEDS: ACETAMINOPHEN 500 MG TAB PO SCH ×2 (09:15→14:07)
[2021-07-11] MEDS: INSULIN ASPART PER UNIT SC SCH ×3 (09:18→17:39)
[2021-07-11 09:26] LABS: BUN Creatinine Ratio 17.6 (10-20); Est GFR (African American) 68.8 ml/min; Est GFR (Non-African American) 59.3 ml/min; Magnesium 2.1 mg/dl (1.7-2.4); Potassium 4.9 mmol/L (3.5-5.1)
[2021-07-11] MEDS: DICLOFENAC SOD 1% GEL 100 GM TUBE EXT PRN (09:51)
[2021-07-11] MEDS: FAMOTIDINE 20 MG TAB PO SCH (10:18)
--- NOTE | 2021-07-11 15:07 | Discharge Summary ---
Date of Service July 11, 2021 Admission HPI Per Admitting Provider Yolanda Lua is a 60 year old female who presents to the ER with abdominal pain, nausea, vomiting and diarrhea. She has had multiple admissions for similar presentations with extensive workup including CT, MRCP, liver ultrasounds, EGD without significant findings other than chronic gastritis. She was most recently admitted May 21 - 2021 and diagnosed with non-specific abdominal pain, MSK back pain and MSK chest pain. She reports even after discharge not feeling well. Reports her "stomach acting up" for last 2 months. Diarrhea (not watery) "really bad" yesterday going 3-4 times. Continuous vomiting when she eats for the last day but vomiting generally worse for the last week. The last time she felt well was for one day last week. She does not keep a food diarrhea but reports bread/cereals usually sets off her symptoms. Occasional dairy also causes her to have the diarrhea. Cookies and crackers appear to be ok. When she drinks nothing bothers her. In the ER she was noted to have similar electrolyte abnormalities to last admission with potassium 2.3 and magnesium 1.3. She was given Potassium chloride 10 meq IV x2 and Potassium chloride 40 meq PO and referred to medicine for admission and ongoing management of nausea, vomiting, diarrhea, hypokalemia and hyperglycemia. Principal Diagnosis 1. Intractable nausea and vomiting 2. Chronic gastritis 3. Constipationtreated 4. Electrolyte abnormalitiesreplaced/resolved (hypokalemia, hypomagnesemia) 5. Vitamin B12 deficiency 6. Accelerated hypertensionresolved Discharge Exam General: Resting comfortably in her hospital bed. She does not appear ill or toxic. NAD. HEENT: Head is AT/NC. Buccal mucosa is moist and pink Neck: No JVD. Negative hepatojugular reflex Cardiac: RRR without M/G/R Lungs: CTA without W/R/R Abdomen: Normoactive X4. Abdomen soft and nontender in all quadrants Extremities: No peripheral clubbing cyanosis or edema Neuro: A&O X4. Cranial nerves II through XII are grossly intact. No focal neuro deficits Skin: No obvious skin lesions or rashes Psych: Appropriate affect. Pleasant and cooperative Discharge Data Allergies Allergy/AdvReac Type Severity Reaction Status Date / Time dulaglutide [From [facility]] AdvReac Intermediate stomach Verified 07/01/21 17:19 pain albiglutide [From [facility]] AdvReac Unknown Unknown Verified 07/01/21 17:19 Consultations 07/01/21 18:53 ED Decision to Admit Stat Ordered Studies 07/01/21 16:52 CT abd pelvis IV con only Stat IMPRESSION: 1. No bowel wall thickening or obstruction. 2. Colonic diverticulosis. No evidence for acute diverticulitis. 3. Normal appendix. 4. Prior cholecystectomy. 5. No hydronephrosis. 6. Additional findings as described above. KUB: IMPRESSION: 1. No acute intra-abdominal abnormality. 2. Mild fecal stasis without evidence for impaction or obstruction. Thoracic spine x-ray: IMPRESSION: 1. Osteopenia with minimal anterior wedge deformity of T8. 2. No acute compression fracture. 3. Degenerative disc disease. Diabetes Follow up Diabetes Follow-up Needed for HgbA1c >9% Hospital Course (1) Nausea vomiting and diarrhea: Patient initially hospitalized with intractable nausea and vomiting and associated electrolyte abnormalities Despite these reports, patient reports she was not having diarrhea and claims that she has not had a bowel movement since prior to this hospital stay. She seems inconsistent with her complaints Nausea and vomiting seems to be a recurrent problem for patient Has had an extensive work-up including: --CT of the abdomen and pelvis: No bowel wall thickening or obstruction. Colonic diverticulosis. No evidence for acute diverticulitis. Normal appendix. Prior cholecystectomy. No hydronephrosis. --Celiac panel: Negative --MRCP: Nonacute. No ductal dilatation. Normal caliber bile duct with no evidence of choledocholithiasis. Prior cholecystectomy. --EGD done 04/10 showing pathology report consistent with chronic gastritis --Gastric emptying study done 06/08 and normal Prior provider was uncertain if perhaps some of her medications was contributing to her nausea thus de-escalated her psych medications and subsequently stopped them. Has been empirically placed on a gluten-free diet which will take 2 to 4 weeks to become effective. Her pathology from EGD was negative for celiac sprue but she very well may have gluten intolerance. Could explain her electrolyte abnormalities --can continue GF diet if feeling better on this. In 3 months, can reintroduce gluten sparingly to see how this affects her At this point, I am uncertain the exact etiology of her symptoms and again, her story seems inconsistent. I do believe gastritis and constipation are currently contributing to her nausea She is on dual antiplatelet therapy and Celebrex and not on GI prophylaxis. Her EGD pathology report does show findings consistent with chronic gastritis. This very well may be the cause of her symptoms Given her reports of "no BM since admitted" despite reports of diarrhea, a KUB was obtained that does show moderate stool burden. In addition to gastritis, constipation may be contributing to her nausea and vomiting -- Patient already started on Pepcid for GI prophylaxis (upon admission). Protonix has since been added. Still with mild Nausea, thus also added carafate -- Celebrex stopped and transitioned to topical Voltaren to right knee/back -- Initially patient was refusing MiraLAX/fleets enema despite complaining of constipation. After lengthy discussion, she was agreeable and has since moved h er bowels. Reports that she now "feels better" She continues to ask to stay in the hospital. She reports that she "just feels better here". She has been hospitalized now for 10 days. There is no medical need for her to remain in acute hospital stay. I reiterated to her that her nausea (if from gastritis) can take 2 to 4 weeks to completely resolve (with medication). (2) Acute hypokalemia: Suspected due to vomiting and diarrhea, recurrent per patient. resolved Supplemented/resolved (3) Hypomagnesemia: - intermittently low, - Supplemented/resolved - Continue magnesium supplement this will help keep bowels moving as well (4) Accelerated hypertension: Blood pressure has been fluctuating throughout this hospital stay. Currently 191/91. No headache, altered mental status, blurred visionor epistaxis Continue lisinopril and metoprolol as prior to arrival Her BP being accelerated may be contributing to the fact that she is "not feeling well". Upon review of her most recent echocardiogram, she has a preserved EF. Procardia added BP much improved at 128/68 IV hydralazine on board during this hospitalization with parameters (5) Acute hyperglycemia: uncontrolled diabetes - A1C 10.7%. -Previous doctor discussed DM management and goal blood sugar range extensively with patient. She reports that she feels under 140/150 is too low for her. Discussed normoglycemic ranges, and that even if she feels well due to having adjusted to higher blood sugars that persistent elevated blood sugars will still cause damage to small vessels, nerves, and put her at higher risk of autonomic dysfunction, heart disease, stroke, and DM complications. Upon discussion patient does express understanding of this and agrees to BSG goal of [id number] - Pharmacy following while in house-- appreciate recommendations - resume prehospital regimen. FU with PCP (6) Diabetes type 2, uncontrolled: Typically on Basal Bolus insulin plus farxiga at home (7) Right upper quadrant abdominal pain: Chronic - thoroughly worked up previously again, may be secondary to gastritis and/or constipation (8) Vitamin B12 deficiency: - cyanocobalamin 500 mcg PO daily. Continue this (9) Hypothyroidism: TSH last noted in 2019, will repeat with AM labs Continue levothyroxine 88 mcg PO daily (10) Fatigue: did reduce many symptom oriented medications that may have sedation/fa tigue as side affect on 07/05, stopped luvox and changed/stopped antidepressant after washout period no change in mood since stopping these meds and uncertain is contributing to overall feeling poor (11) Back pain: Pt has paraspinpous back pain, old compression fracture, added scheduled tylenol and prn ultram DC oral Celebrex (as contributing to gastritisespecially in the setting of dual antiplatelet therapy). Transitioned to topical Voltaren that she can utilize to the back and her right knee At this point, patient has been in the hospital for nearly 10 days. Throughout this hospital stay, continued with many vague complaints and didn't want to go home (despite not needing to remain in a hospital). I have had a lengthy discussion with her in regards to what we can do to facilitate discharge to home. Every treatment option attempted or discussed, patient refused but yet reports that she does not feel well enough to be discharged. I explained that hospitals are not safe places to be and at this point, she meets no acuity to remain in the hospital. At this point, her blood pressure is well controlled with additional medications. She has since moved her bowels. Her nausea has improved since moving her bowels. She does feel residual nausea but lengthy discussion that this may continue to improve now that she is on max acid suppressing agents. d/c with home PT/OT Total Time Total Time Spent Total Time Spent (In Minutes): 50 minutes including time spent with patient, discussion regarding discharge to home and how she does not need to stay in the hospital (despite wanting to stay), preparation of documentation and coordination of care Discharge Plan Discharge Items Patient Disposition: Home - Home Health Services Reason For Visit: HYPOKALEMIA, HYPOMAGNESIAM, HYPERGLYCEMIA Discharge Diagnosis: 1. Intractable Nausea and Vomiting-improved 2. Gastritis 3. Constipation 4. Electrolyte abnormalities- replaced/resolved 5. Accelerated Hypertension- improved Activity: Resume your previous activity Non-emergency contact: Primary Care Provider Call non-emergency contact if: you have any medication questions and your symptoms worsen Follow-up/Referrals: Omer Marroquin MD [Primary Care Provider] - 07/19/21 2:00 pm (APPT WITH [facility]) Diet: Carb Consistent or DM2 Addtl Attending Provider Instructions: You presented to the hospital with intractable nausea and vomiting The exact etiology of your symptoms is not quite clear; however, you have been worked up quite thoroughly. You have had a CT scan of your abdomen and pelvis, and ultrasound of your right upper quadrant, and MRCP (MRI of the biliary system, GI system), a gastric emptying study, and an EGD. This work-up revealed gastritis (chronic inflammation of your stomach). I suspect the gastritis is likely related to the combination of Brilinta, aspirin, and Celebrex. Your Celebrex was stopped and instead changed to Voltaren. You can utilize Voltaren to your low back and your knee. This should provide the same anti- inflammatory/pain relief effects but is given topically to avoid further irritation to the stomach. To help heal the irritation in the stomach, you have been placed on Protonix, Pepcid, and Carafate. -- Take Protonix twice daily for 1 week and then once a day. -- Take Pepcid twice daily x30-90 days -- Take Carafate 4 times a day (with each meal and before bed) for 30 days. If you are unable to swallow this tablet, you can dissolve it in 15 mL of liquid If gastritis is the cause of your nausea, it will take at least 2 to 4 weeks of being on this medication to see the full effects. You should follow-up with GI. And an attempt at determining the cause of your nauseait was thought that perhaps some of your medications were contributing. Your antianxiety/antidepressant medications were scaled back and subsequently stopped. I am uncertain if this was potentially contributing to your feelings of nausea. Your mood has not changed since discontinuing these medications. Would remain off of them and follow-up with your PCP to determine need for resumption but really limiting your medication intake may be the most valuable. The medications that were added above are a hopeful temporary combination to get control of your gastritis. Would utilize the Pepcid for anywhere from 30 to 90 days. Would utilize Carafate for approximately 30 days. You may need to stay on Protonix as long as you are on Brilinta and aspirin. In addition, you were found to be constipated with moderate stool burden. This was likely contributing to your level of nausea. You were treated with MiraLAX and a fleets enema. You are moving your bowels. Can continue MiraLAX daily as needed for constipation. Your magnesium was low for which you have been started on magnesium supplementation. Daily magnesium will also help you move your bowels. If you are moving them too often, stop your MiraLAX. Your B12 level was slightly low during this hospital stay for which B12 supplementation was added. Your PCP should follow-up with a B12 level in 3 months Your blood pressure was quite elevated throughout this hospital stay. To aid in blood pressure control, you have been started on Procardia. Take this every day. Your blood pressure has improved greatly (128/68 on the day of discharge). Pending Studies at Discharge: No Stand-Alone Forms: My [facility] [email or web address], Smoking Cessation Medications and DC Order Prescriptions: New nifedipine [Procardia XL] 30 mg Tablet Extended Release 24 Hr 30 mg PO QAM Qty: 30 RF: 0 polyethylene glycol 3350 [Miralax] 17 gram Powder In Packet 17 g PO DAILY PRN (Reason: constipation) Qty: 14 RF: 0 tramadol 50 mg Tablet 100 mg PO Q6H PRN (Reason: pain) Qty: 30 RF: 0 famotidine 20 mg Tablet 20 mg PO BID Qty: 60 RF: 0 magnesium oxide 400 mg (241.3 mg magnesium) Tablet 400 mg PO BID Qty: 60 RF: 0 cyanocobalamin (vitamin B-12) 500 mcg Tablet 500 mcg PO QAM Qty: 30 RF: 0 pantoprazole 40 mg Tablet,Delayed Release (Dr/Ec) 40 mg PO BID Qty: 45 RF: 0 diclofenac sodium [Voltaren Arthritis Pain] 1 % Gel 2 g EXT Q6H PRN (Reason: pain) Qty: 100 RF: 0 sucralfate [Carafate] 1 gram tablet 1 g PO ACHS 28 Days Qty: 28 RF: 0 Continued nystatin-triamcinolone 100,000-0.1 unit/gram-% ointment 1 applic topical ONCE Qty: 15 RF: 1 Brilinta 90 mg tablet 90 mg PO BID 90 Days Qty: 180 RF: 3 metoprolol tartrate 25 mg tablet 25 mg PO BID 30 Days Qty: 180 RF: 1 Humulin R U-500 (Conc) Kwikpen 500 unit/mL (3 mL) insulin pen 30 unit subcut BID 30 Days Qty: 6 RF: 5 Farxiga 10 mg tablet 10 mg PO QAM Qty: 30 RF: 2 Lantus Solostar U-100 Insulin 100 unit/mL (3 mL) insulin pen 30 unit subcut HS RF: 0 nystatin 100,000 unit/gram powder 1 applic topical BID Qty: 60 RF: 3 atorvastatin 80 mg tablet 80 mg PO QAM RF: 0 levothyroxine 88 mcg tablet 88 mcg PO QAM RF: 0 celecoxib [Celebrex] 100 mg capsule 100 mg PO DAILY Qty: 10 RF: 0 lisinopril 40 mg tablet 40 mg PO QAM 30 Days Qty: 30 RF: 0 Discontinued buspirone 10 mg tablet 10 mg PO TID Qty: 90 RF: 11 clonazepam [Klonopin] 0.5 mg tablet 0.5 mg PO QAM Qty: 30 RF: 0 fluvoxamine 50 mg tablet 50 mg PO HS RF: 0 metoclopramide HCl [Reglan] 5 mg tablet 5 mg PO AC RF: 0 aspirin 81 mg tablet,delayed release (DR/EC) 81 mg PO QAM RF: 0 Discharge Orders: Discharge Order (Routine); Ordered 07/11/21 Ordered By: Millie Richardson/Other Patient Handouts: Long-Term Complications of Diabetes, Types of Insulin, Diabetes Exercise Starting, Diabetes: Meal Planning, ED Diabetes- Overview Admission Data Admit Date/Time: 07/01/21 18:56 Attending Provider: Monty Yeh Admit Provider: Demetrius Fair Primary Care Provider: Omer Marroquin Other Providers: Demetrius Fair ; [place],[facility] Other Interventions: Discharge Summary Assessment (RN) Last Done: 07/11/21 11:47 Coding Level of Care Code D/C DAY MANAGEMENT >30 MINS Diagnoses Nausea vomiting and diarrhea R11.2; R19.7 Acute hypokalemia E87.6 Hypomagnesemia E83.42 Accelerated hypertension I10 Acute hyperglycemia R73.9 Diabetes type 2, uncontrolled E11.65 Right upper quadrant abdominal pain R10.11 Vitamin B12 deficiency E53.8 Hypothyroidism E03.9 Fatigue R53.83 Back pain M54.9
== END 2021-07-11 19:26 | disposition home health service (06) | DRG 392 ==
LOC: ED 16:14 → 2N 18:56 → SUATTDRO 18:56 → 2N 20:50 → 3W 07-06 13:35
DX: E55.9 Vitamin D deficiency, unspecified; Z79.82 Long term (current) use of aspirin; E83.42 Hypomagnesemia; E87.6 Hypokalemia; R10.11 Right upper quadrant pain; K29.50 Unspecified chronic gastritis without bleeding; Z79.4 Long term (current) use of insulin; E53.8 Deficiency of other specified B group vitamins; K59.00 Constipation, unspecified; I25.10 Atherosclerotic heart disease of native coronary artery without angina pectoris; I10 Essential (primary) hypertension; F17.210 Nicotine dependence, cigarettes, uncomplicated; E11.65 Type 2 diabetes mellitus with hyperglycemia; Z95.5 Presence of coronary angioplasty implant and graft; R11.2 Nausea with vomiting, unspecified; Z83.3 Family history of diabetes mellitus; I25.2 Old myocardial infarction; R19.7 Diarrhea, unspecified; E03.9 Hypothyroidism, unspecified

== ENCOUNTER 2021-08-20 17:55 | Inpatient (IN) ==
[2021-08-20] MEDS ORDERED: SODIUM CHLORIDE 0.9% 1000ML 1,000 ML IV ONE (18:29)
--- NOTE | 2021-08-20 18:34 | Emergency Department Note ---
History of Present Illness General Chief complaint: Dizziness Stated complaint: DIZZY 2 + DAYS, UNKNOWN CAUSE, RIB PAIN Time Seen by Provider: 08/20/21 18:20 History of Present Illness Provider complaint: Near syncope Onset (ago): day(s) 2 Location: abdomen (LUQ) Radiation: back Maximum Pain Intensity: 6 Quality: + aching Relieved By: + none Exacerbated By: + none Associated symptoms: + nausea/vomiting; no chest pain, no cough, no fever/chills, no headaches, no shortness of breath or no syncope 60-year-old female presents emergency department for near syncope. Patient states her symptoms began 2 days ago. Patient reports that she feels like she is going to pass out. Patient denies any syncopal episodes. Patient denies any her head. No loss of consciousness. Patient also reporting left upper quadrant abdominal pain that radiates to her back. Patient reports nausea and vomiting. No hematemesis coffee-ground emesis bilious vomiting melena or hematochezia. No headache chest pain difficulty breathing or fever. Home Medications Medication Instructions Recorded Confirmed Type ticagrelor 90 mg tablet (Brilinta) 90 mg PO BID 90 Days #180 tab 11/21/20 08/20/21 Rx atorvastatin 80 mg tablet 80 mg PO QAM 03/15/21 08/20/21 History levothyroxine 88 mcg tablet 88 mcg PO QAM 03/15/21 08/20/21 History famotidine 20 mg tablet 20 mg PO BID #60 tab 07/11/21 08/20/21 Rx fluvoxamine 50 mg tablet 50 mg PO HS #90 tab 08/15/21 08/20/21 Rx metoprolol succinate 50 mg 50 mg PO DAILY #90 tab 08/15/21 08/20/21 Rx tablet,extended release 24 hr dapagliflozin 10 mg tablet 10 mg PO QAM 08/16/21 08/20/21 History (Farxiga) insulin regular hum U-500 conc See Rx Instructions .ROUTE 08/16/21 08/20/21 History (Humulin R U-500 (Conc) Insulin .COMPLEX ml Kwikpen) pantoprazole 40 mg tablet,delayed 40 mg PO DAILY tab 08/16/21 08/20/21 History release nystatin 100,000 unit/gram topical 1 applic TOPICAL BID PRN 08/20/21 08/20/21 History powder Allergies Allergy/AdvReac Type Severity Reaction Status Date / Time dulaglutide [From Trulicity] AdvReac Intermediate stomach Verified 08/20/21 19:09 pain albiglutide [From Tanzeum] AdvReac Unknown Unknown Verified 08/20/21 19:09 Past Med/Surg History Medical History Albuminuria Anxiety CAD (coronary artery disease) No remaining occlusive disease after 2 LAD drug eluting stents 10/22/20. Follows with Dr. Harris Chronic headaches Depression Diabetes type 2, uncontrolled IDDM Diabetic nephropathy associated with type 2 diabetes mellitus Dyslipidemia Hypertension Hypothyroidism NSTEMI (non-ST elevated myocardial infarction) 10/22/2020 s/p 2 CHANTAL Obesity Osteoarthritis Tobacco abuse Vulvitis Surgical History History of cardiac catheterization 10/22/2020 Dominant: Right Left Main (% Stenosis): Normal LAD (% Stenosis): Proximal (99) and Mid (75) Circumflex (% Stenosis): Normal (luminal irregularities) RCA (% Stenosis): Normal (Luminal irregularities) 2 CHANTAL to LAD History of cholecystectomy History of dental surgery History of tonsillectomy S/P coronary artery stent placement 2 CHANTAL to LAD 10/22/2020 Family History Unknown Diabetes Thyroid disorder Father Diabetes Other No family history of adverse response to anesthesia Denies family history of Ovarian cancer Prostate cancer Breast cancer Colorectal cancer Uterine cancer Social History Smoking Status: Current every day smoker Tobacco Type: Cigarettes packs per day: 0.5; Cigarettes Per Day: 10; Second Hand Exposure: Yes; Hx Alcohol Use: No Hx Substance Use: No Preferred Language: Vietnamese Communication Ability: Effective Artificial Plastic Eye Maker Required: No Beliefs That Will Affect Care: None marital status: Single Current Living Situation: Alone Feels Safe at Home: Yes Safety Concerns Comment: Gets nervous sometimes because she lives alone, gets shaky from anxiety caffeine: Yes Dental Care, Regularly: No Physical Activity Frequency: Does not Exercise Seatbelt Use: always Sunscreen Use: No Assistive Devices: None Review of Systems A total of 10 systems reviewed and were otherwise negative Physical Exam Vital Signs Vital Signs - 24 hr 08/20/21 18:06 07/04/22 18:30 08/20/21 19:00 Temperature 36.5 C Temperature Source Temporal Artery Scan Pulse Rate 78 Pulse Rate [Apical] 67 Respiratory Rate 18 19 Respiratory Effort / Characteristics Non-Labored Respiratory Depth Normal Blood Pressure 90/63 L Blood Pressure [Left Arm] 91/63 L Blood Pressure Mean 72 Blood Pressure Mean [Left Arm] 72 Pulse Oximetry 99 96 Oxygen Delivery Method Room Air Room Air Room Air Sepsis Recent Fever Within 48 Hours No Sepsis New/Unexplained Change in Mental Status No Sepsis Action Taken by Nursing No Action Required 08/20/21 19:26 08/20/21 20:03 08/20/21 20:30 Temperature Temperature Source Pulse Rate Pulse Rate [Apical] 58 L 59 L 58 L Respiratory Rate 16 20 18 Respiratory Effort / Characteristics Non-Labored Non-Labored Non-Labored Respiratory Depth Blood Pressure Blood Pressure [Left Arm] 91/64 L 95/63 L 111/66 Blood Pressure Mean Blood Pressure Mean [Left Arm] 73 73 81 Pulse Oximetry 94 96 97 Oxygen Delivery Method Room Air Room Air Room Air Sepsis Recent Fever Within 48 Hours Sepsis New/Unexplained Change in Mental Status Sepsis Action Taken by Nursing 08/20/21 22:00 Temperature Temperature Source Pulse Rate Pulse Rate [Apical] 56 L Respiratory Rate 19 Respiratory Effort / Characteristics Non-Labored Respiratory Depth Blood Pressure Blood Pressure [Left Arm] 91/55 L Blood Pressure Mean Blood Pressure Mean [Left Arm] 67 Pulse Oximetry 98 Oxygen Delivery Method Room Air Sepsis Recent Fever Within 48 Hours Sepsis New/Unexplained Change in Mental Status Sepsis Action Taken by Nursing Physical Exam GENERAL: She is oriented to person, place, and time. She appears well-developed and well-nourished. She does not appear distressed. HENT: Exam performed. -Head: Normocephalic and atraumatic. -Right Ear: External ear normal. No mastoid tenderness. -Left Ear: External ear normal. No mastoid tenderness. -Mouth/Throat: The oropharynx is clear and moist. No trismus in the jaw. No dental abscesses or uvula swelling. No oropharyngeal exudate or tonsillar abscesses. EYES: Conjunctivae and EOM are normal. Pupils are equal, round, and reactive to light. Right eye exhibits no discharge. Left eye exhibits no discharge. No scl eral icterus. NECK: Normal range of motion. Neck supple. No JVD present. No spinous process tenderness present. No carotid bruit present. No rigidity. No tracheal deviation and normal range of motion present. No Brudzinski's sign and no Kernig's sign noted. CV: Normal rate, regular rhythm, normal heart sounds and intact distal pulses. There is no peripheral edema. Palpable radial pulses bue. PULM/CHEST: Effort normal and breath sounds normal. No respiratory distress. No stridor. She has no wheezes. She has no rales. -Chest Wall: She exhibits no tenderness. ABD: The abdomen is soft. Bowel sounds are normal. She has no distension. No mass is present. There is no tenderness. There is no rebound, no guarding, no Patton's sign and no tenderness at McBurney's point. Rovsig negative MUSC/SKEL: Normal range of motion. There is no peripheral edema, tenderness or deformity. LYMPH: No cervical adenopathy. NEURO: She is alert and oriented to person, place, and time. She has normal strength. No cranial nerve deficit or sensory deficit. Coordination and gait normal. GCS eye subscore is 4. GCS verbal subscore is 5. GCS motor subscore is 6. Cerebellar tests wnl. SKIN: Skin is warm and dry. She is not diaphoretic. PSYCH: She has a normal mood and affect. Behavior is normal. Judgment and thou ght content normal. Course Course 1819: The patient was evaluated in room C12. A complete history and physical exam was performed Cardiac monitoring: An order was placed for continuous cardiac monitoring. The monitor shows a rate of 70 with sinus rhythm 2105: Vital signs improved with IV fluids. Labs are significant for leukocytosis of 12.7. Potassium 2 magnesium 1.4. Urinalysis negative. CT of the abdomen pelvis within normal limits. COVID-negative. Magnesium will be replaced and then after magnesium repletion the potassium repletion will be started. Patient will be admitted to the [facility] Hospitalist team notified. Administered Medications Discontinued Medications Acetaminophen (Acetaminophen 500 Mg Tab) 1,000 mg PO NOW STA Stop: 08/20/21 21:08 Last Admin: 08/20/21 21:18 Dose: 1,000 mg Documented by: [id number] Sodium Chloride (Nss 1000ml) 1,000 mls @ 999 mls/hr IV .Q1H1M ONE Stop: 08/20/21 19:29 Last Infusion: 08/20/21 20:19 Dose: 0 mls/hr Documented by: [id number] Admin: 08/20/21 19:04 Dose: 999 mls/hr Documented by: [id number] Magnesium Sulfate/Dextrose (Magnesium Sulfate / D5w) 1 gm in 100 mls @ 100 mls/hr IV Q1H TONI Stop: 08/20/21 21:45 Last Infusion: 08/20/21 22:19 Dose: 0 mls/hr Documented by: [id number] Admin: 08/20/21 21:19 Dose: 100 mls/hr Documented by: [id number] Infusion: 08/20/21 20:56 Dose: 100 mls/hr Documented by: [id number] Admin: 08/20/21 19:56 Dose: 100 mls/hr Documented by: [id number] Potassium Chloride (K Esa / Wtr) 10 meq in 100 mls @ 100 mls/hr IV Q1H TONI; Protocol Stop: 08/21/21 00:44 Last Admin: 08/20/21 23:55 Dose: 100 mls/hr Documented by: [id number] Infusion: 08/20/21 23:54 Dose: 0 mls/hr Documented by: [id number] Admin: 08/20/21 22:43 Dose: 100 mls/hr Documented by: [id number] Potassium Chloride (Potassium Chloride 10 Meq Tabcr) 40 meq PO NOW STA Stop: 08/20/21 19:46 Last Admin: 08/20/21 23:57 Dose: Not Given Documented by: [id number] Potassium Chloride (Potassium Chloride 20 Meq/15 Ml Udc) 40 meq PO NOW STA Stop: 08/20/21 22:33 Last Admin: 08/20/21 22:40 Dose: 40 meq Documented by: [id number] Ticagrelor (Ticagrelor 90 Mg Tab) 90 mg PO ONE STA Stop: 08/20/21 23:00 Last Admin: 08/20/21 23:55 Dose: 90 mg Documented by: [id number] Medical Decision Making Laboratory Data Result diagrams: 08/20/21 18:42 08/20/21 18:42 Lab Results 08/20/21 08/20/21 08/20/21 Range/Units 18:42 18:42 18:42 WBC 12.78 H (4.8-10.8) K/uL RBC 4.92 (4.2-5.4) M/uL Hgb 14.9 (12.0-16.0) g/dL Hct 41.4 (37-47) % MCV 84.1 (80-100) fL MCH 30.3 (25-34) pg MCHC 36.0 (32-36) g/dL RDW Std Deviation 40.5 (36.4-46.3) fL RDW Coeff of Umair 13.4 (11.5-14.5) % Plt Count 338 (130-400) K/uL MPV 11.4 H (7.4-10.4) fL Immature Gran % (Auto) 0.2 % Neut % (Auto) 83.2 % Lymph % (Auto) 12.4 % [place] % (Auto) 3.9 % Eos % (Auto) 0.2 % Baso % (Auto) 0.1 % Neut # (Auto) 10.64 H (1.4-6.5) K/uL Lymph # (Auto) 1.58 (1.2-3.4) K/uL [place] # (Auto) 0.50 (0.11-0.59) K/uL Eos # (Auto) 0.02 (0-0.5) K/uL Baso # (Auto) 0.01 (0-0.2) K/uL Immature Gran # (Auto) 0.03 H (0.00-0.02) K/uL PT 10.3 (9.0-12.0) Seconds INR 1.0 (0.9-1.1) APTT 22.8 (21.0-31.0) Seconds PTT Ratio 0.8 D-Dimer 340 (0-500) ug/L FEU Sodium 135 L (136-145) mmol/L Potassium 2.0 L* (3.5-5.1) mmol/L Chloride 96 L (98-107) mmol/L Carbon Dioxide 23 (21-32) mmol/L Anion Gap 16 H (3-11) BUN 7 (6-23) mg/dl Creatinine 1.05 (0.6-1.2) mg/dl Est Cr Clr Drug Dosing Not Reportable Est GFR ( Amer) 66.4 ml/min Est GFR (Non-Af Amer) 57.3 ml/min BUN/Creatinine Ratio 6.7 L (10-20) Glucose 350 H* (70-99(Fasting)) mg/dl POC Glucose (70-99) mg/dl Calcium 8.1 L (8.5-10.1) mg/dl Magnesium 1.4 L (1.7-2.4) mg/dl Total Bilirubin 0.8 (0.2-1.0) mg/dl Direct Bilirubin 0.1 (0-0.2) mg/dl AST 23 (13-39) U/L ALT 31 (7-52) U/L Alkaline Phosphatase 133 H (34-104) U/L Troponin I High Sens 20.3 H (0-14) pg/ml Total Protein 6.7 (6.0-8.3) gm/dl Albumin 3.3 L (3.4-5.0) gm/dl Lipase 7 L (11-82) U/L Urine Color Urine Appearance (Clear) Urine pH (4.5-7.5) Ur Specific [place] (1.000-1.030) Urine Protein (Negative) Urine Glucose (UA) (Negative) Urine Ketones (Negative) Urine Blood (Negative) Urine Nitrite (Negative) Urine Bilirubin (Negative) Urine Urobilinogen (Negative) Ur Leukocyte Esterase (Negative) 08/20/21 08/20/21 Range/Units 18:48 20:26 WBC (4.8-10.8) K/uL RBC (4.2-5.4) M/uL Hgb (12.0-16.0) g/dL Hct (37-47) % MCV (80-100) fL MCH (25-34) pg MCHC (32-36) g/dL RDW Std Deviation (36.4-46.3) fL RDW Coeff of Umair (11.5-14.5) % Plt Count (130-400) K/uL MPV (7.4-10.4) fL Immature Gran % (Auto) % Neut % (Auto) % Lymph % (Auto) % [place] % (Auto) % Eos % (Auto) % Baso % (Auto) % Neut # (Auto) (1.4-6.5) K/uL Lymph # (Auto) (1.2-3.4) K/uL [place] # (Auto) (0.11-0.59) K/uL Eos # (Auto) (0-0.5) K/uL Baso # (Auto) (0-0.2) K/uL Immature Gran # (Auto) (0.00-0.02) K/uL PT (9.0-12.0) Seconds INR (0.9-1.1) APTT (21.0-31.0) Seconds PTT Ratio D-Dimer (0-500) ug/L FEU Sodium (136-145) mmol/L Potassium (3.5-5.1) mmol/L Chloride (98-107) mmol/L Carbon Dioxide (21-32) mmol/L Anion Gap (3-11) BUN (6-23) mg/dl Creatinine (0.6-1.2) mg/dl Est Cr Clr Drug Dosing Est GFR ( Amer) ml/min Est GFR (Non-Af Amer) ml/min BUN/Creatinine Ratio (10-20) Glucose (70-99(Fasting)) mg/dl POC Glucose 328 H* (70-99) mg/dl Calcium (8.5-10.1) mg/dl Magnesium (1.7-2.4) mg/dl Total Bilirubin (0.2-1.0) mg/dl Direct Bilirubin (0-0.2) mg/dl AST (13-39) U/L ALT (7-52) U/L Alkaline Phosphatase (34-104) U/L Troponin I High Sens (0-14) pg/ml Total Protein (6.0-8.3) gm/dl Albumin (3.4-5.0) gm/dl Lipase (11-82) U/L Urine Color Yellow Urine Appearance Clear (Clear) Urine pH 7.0 (4.5-7.5) Ur Specific [place] 1.035 H (1.000-1.030) Urine Protein Negative (Negative) Urine Glucose (UA) 3+ H (Negative) Urine Ketones Negative (Negative) Urine Blood Negative (Negative) Urine Nitrite Negative (Negative) Urine Bilirubin Negative (Negative) Urine Urobilinogen Negative (Negative) Ur Leukocyte Esterase Negative (Negative) Imaging Data Radiologist's Impression: Chest X-Ray 08/20/21 18:31 XR chest 1V portable HISTORY: 60 years-old [place] [employer] [employer] COMPARISON: 05/21/2021 TECHNIQUE: AP view of the chest FINDINGS: The cardiac silhouette is enlarged with coronary arterial stent. No pneumothorax, pleural effusion, airspace consolidation or overt pulmonary edema. Degenerative changes of the shoulders and spine. IMPRESSION: No acute process. ACT 112: Negative or not required by law. The above report was generated using voice recognition software. It may contain grammatical, syntax or spelling errors. Electronically signed by: Willard Cooper M.D. 08/20/2021 6:48 PM ECG Data Indication: + weakness Rate (beats per minute): 71 Rhythm: + normal sinus ECG Intervals/blocks: + Normal QRS, + Normal TX and + Normal QT-c ECG ST segments: + Normal ST segments and + T-wave inversions (Leads II, III, aVF, V3 V4 V5 V6) Comparison ECG Date: from (07/01/2021) Change: no significant change MDM Narrative Vital signs improved with IV fluids. Labs are significant for leukocytosis of 12.7. Potassium 2 magnesium 1.4. Urinalysis negative. CT of the abdomen pelvis within normal limits. COVID-negative. Magnesium will be replaced and then after magnesium repletion the potassium repletion will be started. Patient will be admitted to the [facility] hospitalist team notified. Impression & Plan Acute hypokalemia, Hypomagnesemia Discharge Plan Visit Data Chief Complaint: Dizziness Stated Complaint: DIZZY 2 + DAYS, UNKNOWN CAUSE, RIB PAIN ED Provider: Sanchez Hernandez Discharge Problem: Acute hypokalemia, Hypomagnesemia Patient Disposition: Admitted As Inpatient Discharge Instructions Interventions: ED Discharge Assessment Last Done: 08/21/21 00:12
--- NOTE | 2021-08-20 18:49 | XRay Report ---
XR chest 1V portable HISTORY: 60 years-old Female near [employer] COMPARISON: 05/21/2021 TECHNIQUE: AP view of the chest FINDINGS: The cardiac silhouette is enlarged with coronary arterial stent. No pneumothorax, pleural effusion, a irspace consolidation or overt pulmonary edema. Degenerative changes of the shoulders and spine. IMPRESSION: No acute process. ACT 112: Negative or not required by law. The above report was generated using voice recognition software. It may contain grammatical, syntax o r spelling errors. Electronically signed by: Willard Cooper M.D. 08/20/2021 6:48 PM
[2021-08-20 19:14] LABS: Basophils # (auto) 0.01 K/uL (0-0.2); Basophils % (auto) 0.1 %; Eosinophils # (auto) 0.02 K/uL (0-0.5); Eosinophils % (auto) 0.2 %; Hematocrit (blood only) 41.4 % (37-47); Hemoglobin 14.9 g/dL (12.0-16.0); Immature Granulocytes # (auto) 0.03 K/uL (0.00-0.02); Immature Granulocytes % (auto) 0.2 %; Lymphocytes # (auto) 1.58 K/uL (1.2-3.4); Lymphocytes % (auto) 12.4 %; Mean Corpuscular Hemoglobin 30.3 pg (25-34); Mean Corpuscular Volume 84.1 fL (80-100); Mean Platelet Volume 11.4 fL (7.4-10.4); Monocytes % (auto) 3.9 %; Neutrophils # (auto) 10.64 K/uL (1.4-6.5); Neutrophils % (auto) 83.2 %; Platelet Count 338 K/uL (130-400); RDW Coefficient of Variation 13.4 % (11.5-14.5); RDW Standard Deviation 40.5 fL (36.4-46.3); Red Blood Count 4.92 M/uL (4.2-5.4); White Blood Count 12.78 K/uL (4.8-10.8)
[2021-08-20 19:33] LABS: D Dimer 340 ug/L FEU (0-500); Partial Thromboplastin Ratio 0.8; Partial Thromboplastin Time 22.8 Seconds (21.0-31.0); Prothrombin Time 10.3 Seconds (9.0-12.0)
[2021-08-20 19:40] LABS: Alanine Aminotransferase 31 U/L (7-52); Albumin Level 3.3 gm/dl (3.4-5.0); Alkaline Phosphatase 133 U/L (34-104); Anion Gap 16 (3-11); Aspartate Aminotransferase 23 U/L (13-39); BUN Creatinine Ratio 6.7 (10-20); Bilirubin Direct 0.1 mg/dl (0-0.2); Bilirubin,Total 0.8 mg/dl (0.2-1.0); Blood Urea Nitrogen 7 mg/dl (6-23); Calcium 8.1 mg/dl (8.5-10.1); Carbon Dioxide 23 mmol/L (21-32); Chloride 96 mmol/L (98-107); Est GFR (African American) 66.4 ml/min; Est GFR (Non-African American) 57.3 ml/min; Glucose 350 mg/dl (70-99(Fasting)); Lipase 7 U/L (11-82); Magnesium 1.4 mg/dl (1.7-2.4); Sodium 135 mmol/L (136-145); Total Protein 6.7 gm/dl (6.0-8.3); Troponin I High Sensitivity 20.3 pg/ml (0-14)
[2021-08-20] MEDS ORDERED: POTASSIUM CHLORIDE 10 MEQ TABCR PO STA (19:45)
[2021-08-20] MEDS: MAGNESIUM SULFATE / D5W 1 GM/100 ML BAG IV SCH ×2 (19:56→21:19)
[2021-08-20 19:57] LABS: Influenza A virus by PCR Negative (Neg); Influenza B virus by PCR Negative (Neg); RSV by PCR Negative (Neg); SARS CoV2 RNA(COVID-19) InHosp NEGATIVE (Negative)
[2021-08-20 20:45] LABS: Appearance Urine Clear (Clear); Bilirubin Urine Negative (Negative); Blood Urine Negative (Negative); Color Urine Yellow; Glucose Urine UA 3+ (Negative); Ketones Urine Negative (Negative); Leukocyte Esterase Urine Negative (Negative); Nitrite Urine Negative (Negative); Protein Urine Negative (Negative); Specific Gravity Urine 1.035 (1.000-1.030); Urobilinogen Urine Negative (Negative)
[2021-08-20] MEDS ORDERED: ACETAMINOPHEN 500 MG TAB PO STA (21:07)
--- NOTE | 2021-08-20 21:30 | History & Physical Report ---
Date of Service August 20, 2021 Assessment & Plan (1) Acute hypokalemia: Plan: 60 y/o female w/ PMHx of multiple prior admissions for similar symptoms, CAD s/p stents, uncontrolled IDDM2, HTN, hypothyroidism, tobacco use, and anxiety/OCD who presents w/ dizzines, nausea and LUQ abd pain most likely related to hyperglycemia and hypokalemia. - acute, severe. prior admissions (most recently 06/2021) w/ hypoK low 2s. - less likely from emesis given only 2 reported episodes. no diarrhea - may be from osmotic diuresis from prolonged hyperglycemia; has been in 300-500 BSG range at home. - she states she was prescribed oral K supp by an outside hospital, but has run out Labs notable for: wbc 12.78. K 2.0. Mg 1.4 AG 16. bsg 350. corrected Na wnl. Hstrop 20.3. Lipase normal. UA 3+ glu. No ketones in urine. CT abd/pelv: statrad prelim read: Impression: 1. No acute intra-abdominal or pelvic finding. ecg: Per my read, mild changes likely related to hypokalemia. Compared w/ 07/01/21 ecg. QTc prolongation 456->556. Mild anterior lead ST depressions. - Potassium will be repleted via PO, IV, and mixed w/ IV fluids - BMP and Mg check at 2AM - After K >3.3, will initiate SSI+Lantus - Serial labs - Trend trop - Consult venue attendant (2) Hyperglycemia: Plan: - see above. SSI + Lantus after hypokalemia improves. Can d/c NPO after this. (3) Hypomagnesemia: Plan: - replete, follow labs (4) CAD (coronary artery disease): Plan: - continue home ticagrelor (5) Hypothyroidism: Plan: - continue home regimen (6) Hypertension: Plan: - soft BPs, hold home meds - improved w/ IV fluids (7) Leukocytosis: Plan: - may be reactive. lower suspicion for infection->hyperglycemia as the hyperglycemia has been prolonged (8) Tobacco abuse: Plan: - offered nicotine patch, declines at this time (9) Dyslipidemia: Plan: - hx of. continue home statin (10) Diabetes type 2, uncontrolled: Plan: - a1c 10.7 06/2021 - see above (11) Left upper quadrant pain: Plan: - reassuring CT abd/pelv. prior admissions w/ similar abd pains. this admission, consider nausea and hypokalemia as well (12) Anxiety: Plan: - per PCP notes, anxiety, depression, OCD. On fluvoxamine (13) Failure to thrive in adult: Plan: - per PCP notes, concern about ability to manage meds at home; considering personal care ome Plan: FEN/GI: NPO. 1/2 NSS +KCl 150mL/hr x 2bags ppx: sq heparin code: full dispo: med tele History of Present Illness Chief Complaint: dizziness, nausea Primary Care Provider: Omer Marroquin MD 60 y/o female w/ PMHx of multiple prior admissions for similar symptoms, CAD s/p stents, uncontrolled IDDM2, HTN, hypothyroidism, tobacco use, and anxiety/OCD who presents w/ 2+ days of room-spinning dizziness, LUQ abd pain and nausea w/ 2 episodes of emesis (food). She denies diarrhea. Currently, she is feeling somewhat better. still has headache and LUQ pain. intermittently sharp. some nausea. room spinning dizziness worse w/ movement. denies hx of vertigo. No cp, f/c, urinary sxs constipation. She had been prescribed K supplementation by an outside hospital but has not been taking since the prescription ran out. Denies fever, chills, chest pain, SOB, URI, or urinary symptoms. Her diabetes is very poorly controlled (A1c 10.7 07/01/21.) and her mixer crane operator had referred patient to the pharmacist for additional management. Most recent pharmacy phone visit was on 09/07, noting home BSGs 243-513. Current regimen: Farxiga 10mg daily and Humulin R U-500 (covers both basal and bolus) 30u at 4PM and 20u at midnight. No additional insulin besides this. Patient states she took her home meds today. She is a current 1/2 PPD smoker, but states she is motivated to quit tobacco use. ED course: Slightly soft BP 90s/50s. IV Mg and K repletion. 40meq PO KCl. Nss 1L. IV tylenol. Allergies Allergy/AdvReac Type Severity Reaction Status Date / Time dulaglutide [From [facility]] AdvReac Intermediate stomach Verified 08/20/21 19:09 pain albiglutide [From [facility]] AdvReac Unknown Unknown Verified 08/20/21 19:09 Home Medications Medication Instructions Recorded Confirmed Type ticagrelor 90 mg tablet (Brilinta) 90 mg PO BID 90 Days #180 tab 11/21/20 08/20/21 Rx atorvastatin 80 mg tablet 80 mg PO QAM 03/15/21 08/20/21 History levothyroxine 88 mcg tablet 88 mcg PO QAM 03/15/21 08/20/21 History famotidine 20 mg tablet 20 mg PO BID #60 tab 07/11/21 08/20/21 Rx fluvoxamine 50 mg tablet 50 mg PO HS #90 tab 08/15/21 08/20/21 Rx metoprolol succinate 50 mg 50 mg PO DAILY #90 tab 08/15/21 08/20/21 Rx tablet,extended release 24 hr dapagliflozin 10 mg tablet 10 mg PO QAM 08/16/21 08/20/21 History (Farxiga) insulin regular hum U-500 conc See Rx Instructions .ROUTE 08/16/21 08/20/21 History (Humulin R U-500 (Conc) Insulin .COMPLEX ml Kwikpen) pantoprazole 40 mg tablet,delayed 40 mg PO DAILY tab 08/16/21 08/20/21 History release nystatin 100,000 unit/gram topical 1 applic TOPICAL BID PRN 08/20/21 08/20/21 History powder Past Med/Surg History Medical History Albuminuria Anxiety CAD (coronary artery disease) No remaining occlusive disease after 2 LAD drug eluting stents 10/22/20. Follows with Dr. Harris Chronic headaches Depression Diabetes type 2, uncontrolled IDDM Diabetic nephropathy associated with type 2 diabetes mellitus Dyslipidemia Hypertension Hypothyroidism NSTEMI (non-ST elevated myocardial infarction) 10/22/2020 s/p 2 CHANTAL Obesity Osteoarthritis Tobacco abuse Vulvitis Surgical History History of cardiac catheterization 10/22/2020 Dominant: Right Left Main (% Stenosis): Normal LAD (% Stenosis): Proximal (99) and Mid (75) Circumflex (% Stenosis): Normal (luminal irregularities) RCA (% Stenosis): Normal (Luminal irregularities) 2 CHANTAL to LAD History of cholecystectomy History of dental surgery History of tonsillectomy S/P coronary artery stent placement 2 CHANTAL to LAD 10/22/2020 Family History Unknown Diabetes Thyroid disorder Father Diabetes Other No family history of adverse response to anesthesia Denies family history of Ovarian cancer Prostate cancer Breast cancer Colorectal cancer Uterine cancer Social History Smoking Status: Current every day smoker Tobacco Type: Cigarettes packs per day: 0.5; Cigarettes Per Day: 10; Second Hand Exposure: No; Do You Dip or Chew Tobacco: No; Tobacco Cessation Education Requested by Patient: No Hx Alcohol Use: No Hx Substance Use: No Preferred Language: [place] Communication Ability: Effective Senior Research Project Manager Required: No Beliefs That Will Affect Care: None marital status: Single Current Living Situation: Alone Other Information That Helps Us Care for You: No Feels Safe at Home: Yes Safety Concerns: Feels Safe At This Time Safety Concerns Comment: Gets nervous sometimes because she lives alone, gets shaky from anxiety caffeine: Yes Dental Care, Regularly: No Physical Activity Frequency: Does not Exercise Seatbelt Use: always Sunscreen Use: No Assistive Devices: Glasses Review of Systems Review of Systems: All systems reviewed & are unremarkable except as noted in HPI & below Physical Exam Physical Exam: General: A&Ox4. NAD. Cooperative. HEENT: Atraumatic, normocephalic. EOMI. Poor dentition. Oropharynx wnl. No LAD. Pulm: CTAB. No wheezes or crackles. No respiratory distress. Cardiac: RRR, -mrg. Radial pulses intact and symmetrical. Slightly puffy ankles, no pitting edema appreciated. Abdominal: LUQ / L anterior ribcage ttp, moderate. Abd is soft, nondistended. Integ: Warm, dry, intact. Msk: Moving all extremities. Results & Data Results & Data ([facility]) Vital Signs (Past 12 Hours) Vital Signs Temp Pulse Pulse Resp BP BP Pulse Ox 08/20/21 20:30 58 L 18 111/66 97 08/20/21 20:03 59 L 20 95/63 L 96 08/20/21 19:26 58 L 16 91/64 L 94 08/20/21 19:00 67 19 91/63 L 96 08/20/21 18:06 36.5 C 78 18 90/63 L 99 Laboratory Results Cardiac Enzymes 08/20/21 Range/Units 18:42 AST 23 (13-39) U/L Troponin I High Sens 20.3 H (0-14) pg/ml Coagulation 08/20/21 Range/Units 18:42 PT 10.3 (9.0-12.0) Seconds APTT 22.8 (21.0-31.0) Seconds CBC 08/20/21 Range/Units 18:42 WBC 12.78 H (4.8-10.8) K/uL RBC 4.92 (4.2-5.4) M/uL Hgb 14.9 (12.0-16.0) g/dL Hct 41.4 (37-47) % Plt Count 338 (130-400) K/uL Neut # (Auto) 10.64 H (1.4-6.5) K/uL Lymph # (Auto) 1.58 (1.2-3.4) K/uL [place] # (Auto) 0.50 (0.11-0.59) K/uL Eos # (Auto) 0.02 (0-0.5) K/uL Baso # (Auto) 0.01 (0-0.2) K/uL Comprehensive Metabolic Panel 08/20/21 Range/Units 18:42 Sodium 135 L (136-145) mmol/L Potassium 2.0 L* (3.5-5.1) mmol/L Chloride 96 L (98-107) mmol/L Carbon Dioxide 23 (21-32) mmol/L BUN 7 (6-23) mg/dl Creatinine 1.05 (0.6-1.2) mg/dl Glucose 350 H* (70-99(Fasting)) mg/dl Calcium 8.1 L (8.5-10.1) mg/dl Direct Bilirubin 0.1 (0-0.2) mg/dl AST 23 (13-39) U/L ALT 31 (7-52) U/L Alkaline Phosphatase 133 H (34-104) U/L Total Protein 6.7 (6.0-8.3) gm/dl Albumin 3.3 L (3.4-5.0) gm/dl Intake and Output 08/20/21 08/20/21 08/20/21 06:59 14:59 22:59 Intake Total 1100 / 1100 Balance 1100 / 1100 Intake: IV 1100 / 1100 Magnesium Sulfate / D5w 1 gm In 100 / 100 100 ml @ 100 mls/hr IV Q1H TONI Rx#:[id number] Sodium Chloride 0.9% 1000ML 1, 1000 / 1000 000 ml @ 999 mls/hr IV .Q1H1M ONE Rx#:[id number] Other: Weight 87.6 kg Weight Measurement Method Built in [facility] Patient Weight 08/21/21 06:59 Weight 87.6 kg Diagnostic Findings Chest X-Ray 08/20/21 18:31 XR chest 1V portable HISTORY: 60 years-old Female near [place] COMPARISON: 05/21/2021 TECHNIQUE: AP view of the chest FINDINGS: The cardiac silhouette is enlarged with coronary arterial stent. No pneumothorax, pleural effusion, airspace consolidation or overt pulmonary edema. Degenerative changes of the shoulders and spine. IMPRESSION: No acute process. ACT 112: Negative or not required by law. The above report was generated using voice recognition software. It may contain grammatical, syntax or spelling errors. Electronically signed by: Willard Cooper M.D. 08/20/2021 6:[address] abd/pelv: statrad prelim read: Impression: 1. No acute intra-abdominal or pelvic finding. Findings: Small hiatal hernia. Status post cholecystectomy. Subxiphoid midline 2.2 cm fat containing hernia through a 7 mm defect. Scattered colonic diverticulosis. Negative for diverticulitis. Exophytic right lateral ovarial 2.2 cm fibroid. Mild lower lumbar spine degenerative change. Radiologist Tomy Patel MD. [facility]: [phone]. Study ready at 20.18 and initial results transmitted at 21:04 Code Status & VTE Plan Code Status full VTE Prophylaxis Plan VTE Prophylaxis will be ordered: Yes Supervising Physician Co-Signing Physician Notes Pt seen/examined in conjunction with resident MD Reynaldo Castillo. Orders and plan of admission formulated with resident. 60 y/o F Hx GERD, hypothyroidism, HTN, HLD, IDDM, CAD, smoker. Presents with dizziness, abdominal pain, nausea and vomiting. She has had multiple admissions with similar symptoms. Initial labs were notable for mild leukocytosis, glucose 350, hypomagnesemia, hypokalemia, borderline trop of 20. An EKG did not support acute ischemia. QT is prolonged. She is afebrile and a CXR and UA are negative. O/E General: AAO x 3, no distress ENT: No erythema or exudates, no thrush Eyes: CHERYL, EOMI Head and neck: Normocephalic, atraumatic, No JVD, neck is supple. Chest/heart: Nontender, S1,2, RRR, no murmurs, no gallops Lungs: CTAB, no wheezing or crackles Abdomen: Nontender, nondistended, BS+ Neuro: AAO x 3, speech is clear, no unilateral weakness or loss of sensation, coordination intact Musculoskeletal: No joint inflammation, muscle tenderness, FROM Skin: No acute rashes or ulcers Extremities: No clubbing, cyanosis, edema A/P 1) Electrolyte abnormalities - hypokalemia, hypomagnesemia - likely due to hyperglycemia, nausea/vomiting and dehydration. IVF, K, mag provided. 2) Dizziness, nausea/vomiting and abdominal pain - cause is not clear and she is relatively asymptomatic at time of admission. Would avoid antiemetics until electrolytes corrected if possible. IVF provided, monitor on telemetry. 3) IDDM - sliding scale 4) CAD - no evidence of ACS - trend trop, EKG AM. Cont Brilinta, statin, metoprolol. 5) Hypothyroidism - cont Synthroid Full code - Heparin prophylaxis Total time for this admit including review of labs, meds, imaging, records - dicussion with pt and ER attending - 39 min Total time for this admission including review of labs, meds, imaging, records, discussion with pt and ER attending - Resident Activity Tracking Resident Involvement: Resident Care Provided Care Provided: Adult [facility] (1) CAD (coronary artery disease) Associated angina: unspecified whether angina present Coronary Disease- Associated Artery/Lesion type: [place] artery [place] vs. transplanted heart: [place] heart Qualified Code(s): I25.10 - Atherosclerotic heart disease of [place] coronary artery without angina pectoris
[2021-08-20] MEDS ORDERED: POTASSIUM CHLORIDE 20 MEQ/15 ML UDC PO STA (22:32)
[2021-08-20] MEDS: POTASSIUM CHLORIDE / WTR 10 MEQ/100 ML PLCT IV SCH ×2 (22:43→23:55)
[2021-08-20] MEDS ORDERED: TICAGRELOR 90 MG TAB PO STA (22:59)
[2021-08-21] MEDS: SODIUM CHLOR 0.45% + 20MEQ KCL 20 MEQ/1,000 ML BAG IV SCH ×2 (02:08→11:21)
[2021-08-21 02:10] LABS: Basophils # (auto) 0.01 K/uL (0-0.2); Basophils % (auto) 0.1 %; Eosinophils # (auto) 0.13 K/uL (0-0.5); Eosinophils % (auto) 1.6 %; Hematocrit (blood only) 35.3 % (37-47); Hemoglobin 12.3 g/dL (12.0-16.0); Immature Granulocytes # (auto) 0.02 K/uL (0.00-0.02); Immature Granulocytes % (auto) 0.2 %; Lymphocytes # (auto) 2.41 K/uL (1.2-3.4); Lymphocytes % (auto) 29.4 %; Mean Corpuscular Hemoglobin 29.1 pg (25-34); Mean Corpuscular Hgb Conc 34.8 g/dL (32-36); Mean Corpuscular Volume 83.5 fL (80-100); Mean Platelet Volume 10.5 fL (7.4-10.4); Monocytes # (auto) 0.67 K/uL (0.11-0.59); Monocytes % (auto) 8.2 %; Neutrophils # (auto) 4.97 K/uL (1.4-6.5); Neutrophils % (auto) 60.5 %; Platelet Count 245 K/uL (130-400); RDW Coefficient of Variation 13.7 % (11.5-14.5); Red Blood Count 4.23 M/uL (4.2-5.4); White Blood Count 8.21 K/uL (4.8-10.8)
[2021-08-21 02:51] LABS: BUN Creatinine Ratio 6.5 (10-20); Calcium 7.1 mg/dl (8.5-10.1); Creatinine Clr Calc Pharmacy 62.1 ml/min; Est GFR (African American) 76.9 ml/min; Est GFR (Non-African American) 66.3 ml/min; Magnesium 1.9 mg/dl (1.7-2.4); Potassium 2.3 mmol/L (3.5-5.1)
[2021-08-21 03:15] LABS: Troponin I High Sensitivity 18.6 pg/ml (0-14)
[2021-08-21] MEDS ORDERED: POTASSIUM CHLORIDE CRTAB 20 MEQ TABCR PO STA (03:19)
[2021-08-21] MEDS ORDERED: MAGNESIUM SULFATE / D5W 1 GM/100 ML BAG IV ONE (03:19)
[2021-08-21] MEDS ORDERED: PHARMACY GLYCEMIC MGMT CONSULT PRN (03:24)
[2021-08-21] MEDS: POTASSIUM CHLORIDE / WTR 10 MEQ/100 ML PLCT IV SCH ×7 (03:44→13:57)
[2021-08-21] MEDS: LEVOTHYROXINE SODIUM 88 MCG TABLET PO SCH (05:43)
[2021-08-21] MEDS ORDERED: Nursing to Pharmacy Communication SCH (05:45)
[2021-08-21] MEDS ORDERED: FAMOTIDINE 10 MG TABLET PO ONE (06:27)
[2021-08-21] MEDS ORDERED: INSULIN ASPART PER UNIT SC SCH (06:30)
--- NOTE | 2021-08-21 07:16 | Hospitalist Progress Note ---
Date of Service August 21, 2021 Assessment & Plan (1) Acute hypokalemia: Plan: 60 y/o female w/ PMHx of multiple prior admissions for similar symptoms, CAD s/p stents, uncontrolled IDDM2, HTN, hypothyroidism, tobacco use, and anxiety/OCD who presents w/ dizzines, nausea and LUQ abd pain most likely related to hyperglycemia and hypokalemia. - acute, severe. hypokalemia, prior admissions (most recently 06/2021) w/ hypoK low 2s. - she states she was prescribed oral K supp by an outside hospital, but has run out She has had multiple admissions for similar presentations with extensive workup including CT, MRCP, liver ultrasounds, celiac panel, EGD gastric emptying study wiithout significant findings other than chronic gastritis. replete K and mag CT abd/pelv: statrad prelim read: Impression: 1. No acute intra-abdominal or pelvic finding. ecg: Per my read, mild changes likely related to hypokalemia. Compared w/ 07/01/21 ecg. QTc prolongation 456->556. Mild anterior lead ST depressions. - - elevated tropinin without escalation of Trend. troponin maybe demand from illness - hyperglycemia, ssi and basal Consult coding educator (2) Hyperglycemia: Plan: - see above. SSI + Lantus after hypokalemia improves. Can d/c NPO after this. (3) CAD (coronary artery disease): Plan: - continue home ticagrelor (4) Hypothyroidism: Plan: - continue home regimen (5) Hypertension: Plan: - soft BPs, hold home meds - improved w/ IV fluids (6) Leukocytosis: Plan: - may be reactive. lower suspicion for infection->hyperglycemia as the hyperglycemia has been prolonged (7) Tobacco abuse: Plan: - offered nicotine patch, declines at this time (8) Dyslipidemia: Plan: - hx of. continue home statin (9) Diabetes type 2, uncontrolled: Plan: - a1c 10.7 06/2021 - see above (10) Left upper quadrant pain: Plan: - reassuring CT abd/pelv. prior admissions w/ similar abd pains. this admission, consider nausea and hypokalemia as well (11) Anxiety: Plan: - per PCP notes, anxiety, depression, OCD. On fluvoxamine (12) Failure to thrive in adult: Plan: - per PCP notes, concern about ability to manage meds at home; considering pers onal care ome Plan FEN/GI: NPO. / NSS +KCl 150mL/hr x 2bags ppx: sq heparin code: full dispo: med tele Admission and Anticipated Discharge Date Admission Date: August 20, 2021 Subjective this pt states she is feeling better but still some queasyness after she eats, her biggest issue to present was dizziness and nausea and vomiting limiting eating. She has had multiple admissions for similar presentations with extensive workup including CT, MRCP, liver ultrasounds, EGD celiac blood work , without significant findings other than chronic gastritis. Review of Systems Review of Systems: moderate distress and fatigue no headache, no visual changes no speech or swallowing issues no chest pain, pressure or palpitations no shortness of breath, cough or wheezes no abdominal pain, mild nausea withoug vomiting no dysuria, hematuria or frequency no focal joint pain or swelling no back pain, CVA tenderness or radicular pain no bruising, bleeding or rashes no focal signs of weakness or numbness or altered sensation, c/o dizziness no complaints of anxiety or depression.. Physical Exam Physical Exam: The patient appeared well nourished and normally developed. Vital signs as documented. Head exam is normocephalic atraumatic Neck is without JVD, thyromegaly, or carotid bruits. Lungs are clear to auscultation, no focal loss of breath sounds Cardiac exam, Rhythm is regular.. No murmurs, rubs or gallops. Abdominal exam reveals hypoactive bowel sounds, soft non tender, no masses Extremities are nonedematous and both pedal pulses are present Neurologic exam is alert and oriented, no focal loss of strength or sensation, no nystagmus Skin is without bruises or rashes Psychologically is without concerns for anxiety or depression.. Results & Data Results & Data ([facility]) Vital Signs (Past 12 Hours) Vital Signs Temp Pulse Pulse Pulse Resp BP Pulse Ox 08/21/21 03:14 97.5 F L 54 L 18 115/76 98 08/21/21 00:29 61 08/21/21 00:25 97.5 F L 59 L 16 113/71 99 08/21/21 00:23 97.5 F L 59 L 18 113/71 99 08/20/21 23:31 64 20 127/68 99 08/20/21 22:00 56 L 19 91/55 L 98 08/20/21 20:30 58 L 18 111/66 97 08/20/21 20:03 59 L 20 95/63 L 96 08/20/21 19:26 58 L 16 91/64 L 94 PG Care Time/CCT Total # of Minutes Spent Total Time Spent with Patient: Total time spent is greater than 50% in coordination of care (as documented) at patient's floor/unit and/or counseling patient: Coding Level of Care Code 93543 Subseq Hosp Care Lvl 2 Diagnoses Acute hypokalemia E87.6 Hyperglycemia R73.9 CAD (coronary artery disease) I25.10 Associated angina: unspecified whether angina present Coronary Disease-Associated Artery/Lesion type: [place] artery [place] vs. transplanted heart: [place] heart Hypothyroidism E03.9 Hypertension I10 Leukocytosis D72.829 Tobacco abuse Z72.0 Dyslipidemia E78.5 Diabetes type 2, uncontrolled E11.65 Left upper quadrant pain R10.12 Anxiety F41.9 Failure to thrive in adult R62.7 (1) CAD (coronary artery disease) Associated angina: unspecified whether angina present Coronary Disease- Associated Artery/Lesion type: [place] artery [place] vs. transplanted heart: [place] heart Qualified Code(s): I25.10 - Atherosclerotic heart disease of [place] coronary artery without angina pectoris
[2021-08-21 07:21] LABS: BUN Creatinine Ratio 6.9 (10-20); Calcium 7.2 mg/dl (8.5-10.1); Creatinine Clr Calc Pharmacy 80.2 ml/min; Est GFR (African American) 104.8 ml/min; Est GFR (Non-African American) 90.4 ml/min; Potassium 2.8 mmol/L (3.5-5.1)
[2021-08-21] MEDS ORDERED: INSULIN HUMAN NPH SC SCH ×2 (08:00)
[2021-08-21] MEDS ORDERED: POTASSIUM CHLORIDE 10 MEQ / 100ML WTR IV STA (08:10)
[2021-08-21] MEDS: TICAGRELOR 90 MG TAB PO SCH ×2 (08:44→21:18)
[2021-08-21] MEDS: ENOXAPARIN INJ 40 MG/0.4 ML SYR SQ SCH (08:44)
[2021-08-21] MEDS: PANTOprazole 40 MG TAB PO SCH (08:44)
[2021-08-21] MEDS: ATORVASTATIN 40 MG TAB PO SCH (08:44)
[2021-08-21] MEDS: INSULIN ASPART PER UNIT SC SCH ×4 (08:51→21:12)
[2021-08-21] MEDS: INSULIN HUMAN NPH SC SCH ×2 (08:51→19:00)
[2021-08-21] MEDS ORDERED: FAMOTIDINE 20 MG TAB PO SCH (09:00)
--- NOTE | 2021-08-21 09:43 | CT Scan Report ---
CT abd pelvis wo con CLINICAL HISTORY: L flank LUQ pain TECHNIQUE: Helical axial images of the abdomen and pelvis were obtained. Automated dose lowering tech niques and/or adjustment according to patient size were utilized for this exam. This exam was perfor med without intravenous contrast. CT DOSE: 963.48 mGy.cm COMPARISON: Comparison is made to CT abdomen pelvis 07/01/2021 FINDINGS: Lower chest: No acute abnormality Liver: Unremarkable. No focal lesions are seen. Gallbladder and biliary tree: Patient is status post cholecystectomy. No intra- or extrahepatic bilia ry ductal dilation. Pancreas: Unremarkable, no focal lesions. Spleen: Unremarkable. Adrenals: Unremarkable. Kidneys and ureters: There is a 12 mm cyst in the left kidney. Bladder: Unremarkable. Reproductive organs: A calcified fibroid is incidentally noted. Bowel: Diverticulosis is seen without evidence of diverticulitis. The appendix is normal. Lymph nodes Retroperitoneal: Unremarkable. Mesenteric: Unremarkable. Pelvic: Unremarkable. Peritoneum: Normal. Vessels: Atherosclerotic calcifications are seen. Abdominal wall: Unremarkable. Bones: Unremarkable. IMPRESSION: 1. No acute abnormalities are seen, in particular no evidence of left hydronephrosis or obstructive nephrolithiasis. 2. Diverticulosis without evidence of diverticulitis. ACT 112: Negative or not required by law. Electronically signed by: Rob Lebron M.D. 08/21/2021 9:41 AM
--- NOTE | 2021-08-21 13:11 | Pharmacy Report ---
Pharmacy Glycemic Short Note 2 - Date of Service August 21, 2021 - Glycemic Short BSG Results (Last 24 hours): 08/20/21 08/20/21 08/20/21 18:42 18:48 22:49 Glucose 350 H* POC Glucose 328 H* 151 H 08/21/21 08/21/21 08/21/21 00:24 02:00 03:13 Glucose 181 H POC Glucose 180 H 189 H 08/21/21 08/21/21 08/21/21 06:42 06:49 07:37 Glucose 165 H POC Glucose 153 H 153 H 08/21/21 11:51 Glucose POC Glucose 156 H OUTPATIENT ANTIDIABETIC REGIMEN: * U-500 insulin initiated by sliver chopper in July of this year * U-500 insulin 30 units SC qAM, 20 units SC qPM (takes at 1600 and 0000) * Farxiga 10 mg PO daily ASSESSMENT: * PABLO is a 60 year old female who presented to ED last evening with chief complaint of dizziness * Potassium of 2 mmol/L at that time, has since improved to 2.8 mmol/L * Repleted with multiple doses of supplemental KCl and IV maintenance fluids with KCl * BSG > 300 mg/dL on presentation, corrected with IV fluids * Will use NPH insulin in lieu of U-500 insulin for now PLAN FOR INPATIENT GLYCEMIC CONTROL: * Hold outpatient oral diabetes medications * Basal insulin * NPH 20 units SQ BIDM * Bolus insulin * NovoLog per scale ACHS or Q6hrs while NPO * Goal Range: Low 110 mg/dL - High 140 mg/dL * Correction Factor: 15 mg/dL/unit * Nutritional / Prandial insulin per carb ratio of 1 unit per 3 grams CHO consumed
[2021-08-21 13:36] LABS: BUN Creatinine Ratio 8.1 (10-20); Calcium 7.6 mg/dl (8.5-10.1); Est GFR (African American) 101.3 ml/min; Est GFR (Non-African American) 87.4 ml/min; Potassium 2.6 mmol/L (3.5-5.1)
--- NOTE | 2021-08-21 18:29 | Nephrology Consultation ---
Date of Consultation August 21, 2021 Assessment & Plan (1) Hypomagnesemia: (2) Hypertension: (3) Nausea vomiting and diarrhea: (4) Acute hypokalemia: Clinical presentation consistent with poor PO intake and GI losses. Magnesium improved with replacement. PPI therapy potentially contributing. Appropriate IV and PO potassium replacement is being provided. Repeat metabolic profile with Mg+ and PO4 tomorrow AM. Encourage dietary intake. The importance of appropriate glycemic control was stressed. Ultimately, Yolanda would benefit from ELHAM/ARB therapy. No absolute contraindication noted per my review of the record. Document I/O's. Repeat metabolic profile tomorrow. Close outpatient follow up will be required post discharge. Euvolemic. BP acceptable. 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 She presented to [facility] on August 20 with weakness and fatigue. She describes notable weakness in her legs with difficulty standing. Yolanda had several weeks of poor appetite and progressive GI symptoms including nausea and vomiting prior to presentation. She denies constipation or diarrhea. She denies abdominal pain. She describes increasing difficulty tolerating anything by mouth. Yolanda reports throwing up immediately after swallowing. Similar symptoms were experienced prior to hospitalization at [facility] in June of 2021. Symptoms had initially improved. She tolerates medications and fluids without difficulty. During the prior admission, evaluation included CT abdomen and pelvis, celiac panel, MRCP, EGD, and gastric emptying study. EGD demonstrating findings of chronic gastritis. Evaluation was otherwise unremarkable. Yolanda was admitted with notable hypokalemia and mild hypomagnesemia. She has been receiving PO and IV replacement. Despite aggressive PO replacement, serum potassium remains low today at 2.5 mEq/L. Additional 50 mEq IV replacement and 20 mEq PO provided today. Yolanda reports continued difficulty tolerating anything by mouth. She was able to finish ecuad[place] toast for breakfast but only able to tolerate a few bites of lunch and dinner. Nausea persists following her meal. She also expressed concerns about low blood sugar. Records from her engineering aid describe fear of insulin and fear of hypoglycemia as barriers to blood glucose control. Yolanda had a blood glucose reading of 86 today which she feels is much too low. She is concerned about potential for dropping lower. She has had improvement in medication adherence in the past year and notes that her A1c improved from 17 to 10.6%. She is maintained on dapagliflozin without reported history ketoacidosis. Yolanda does not use any diuretics or laxatives. Prior to June, there was no history of hypokalemia. There is no family history of hypokalemia. Allergies Allergy/AdvReac Type Severity Reaction Status Date / Time dulaglutide [From Trulicity] AdvReac Intermediate stomach Verified 08/20/21 19:09 pain albiglutide [From Tanzeum] AdvReac Unknown Unknown Verified 08/20/21 19:09 Home Medications Medication Instructions Recorded Confirmed Type ticagrelor 90 mg tablet (Brilinta) 90 mg PO BID 90 Days #180 tab 11/21/20 08/20/21 Rx atorvastatin 80 mg tablet 80 mg PO QAM 03/15/21 08/20/21 History levothyroxine 88 mcg tablet 88 mcg PO QAM 03/15/21 08/20/21 History famotidine 20 mg tablet 20 mg PO BID #60 tab 07/11/21 08/20/21 Rx fluvoxamine 50 mg tablet 50 mg PO HS #90 tab 08/15/21 08/20/21 Rx metoprolol succinate 50 mg 50 mg PO DAILY #90 tab 08/15/21 08/20/21 Rx tablet,extended release 24 hr dapagliflozin 10 mg tablet 10 mg PO QAM 08/16/21 08/20/21 History (Farxiga) insulin regular hum U-500 conc See Rx Instructions .ROUTE 08/16/21 08/20/21 History (Humulin R U-500 (Conc) Insulin .COMPLEX ml Kwikpen) pantoprazole 40 mg tablet,delayed 40 mg PO DAILY tab 08/16/21 08/20/21 History release nystatin 100,000 unit/gram topical 1 applic TOPICAL BID PRN 08/20/21 08/20/21 History powder Patient History Medical History Albuminuria Anxiety CAD (coronary artery disease) No remaining occlusive disease after 2 LAD drug eluting stents 10/22/20. Follows with Dr. Harris Chronic headaches Depression Diabetes type 2, uncontrolled IDDM Diabetic nephropathy associated with type 2 diabetes mellitus Dyslipidemia Hypertension Hypothyroidism NSTEMI (non-ST elevated myocardial infarction) 10/22/2020 s/p 2 CHANTAL Obesity Osteoarthritis Tobacco abuse Vulvitis Surgical History History of cardiac catheterization 10/22/2020 Dominant: Right Left Main (% Stenosis): Normal LAD (% Stenosis): Proximal (99) and Mid (75) Circumflex (% Stenosis): Normal (luminal irregularities) RCA (% Stenosis): Normal (Luminal irregularities) 2 CHANTAL to LAD History of cholecystectomy History of dental surgery History of tonsillectomy S/P coronary artery stent placement 2 CHANTAL to LAD 10/22/2020 Family History Unknown Diabetes Thyroid disorder Father Diabetes Other No family history of adverse response to anesthesia Denies family history of Ovarian cancer Prostate cancer Breast cancer Colorectal cancer Uterine cancer Social History Smoking Status: Current every day smoker Tobacco Type: Cigarettes packs per day: 0.5; Cigarettes Per Day: 10; Second Hand Exposure: No; Do You Dip or Chew Tobacco: No; Tobacco Cessation Education Requested by Patient: No Hx Alcohol Use: No Hx Substance Use: No Preferred Language: Brazilian Communication Ability: Effective Numerical Control Router Operator Required: No Beliefs That Will Affect Care: None marital status: Single Current Living Situation: Alone Other Information That Helps Us Care for You: No Feels Safe at Home: Yes Safety Concerns: Feels Safe At This Time Safety Concerns Comment: Gets nervous sometimes because she lives alone, gets shaky from anxiety caffeine: Yes Dental Care, Regularly: No Physical Activity Frequency: Does not Exercise Seatbelt Use: always Sunscreen Use: No Assistive Devices: Glasses Review of Systems Review of Systems: All systems reviewed & are unremarkable except as noted in HPI & below Physical Exam Constitutional: well developed; no acute distress Eyes: no scleral abnormality and no corneal abnormality ENMT: Mouth: no oral mucosal abnormality and oral mucous membranes not dry Neck: normal visual inspection and trachea midline Respiratory: normal respiratory effort Auscultation: lungs clear to auscultation bilaterally Cardiovascular: Rate/Rhythm: regular rate Heart Sounds: normal S1 and normal S2 Extremities: no edema Musculoskeletal: Extremities: no cyanosis and no clubbing Skin: normal turgor; no lesions Neurologic: Motor/Sensory: no tremor and no asterixis Psychiatric: Orientation: alert and oriented x 3 Results & Data ([facility]) Vital Signs (Past 12 Hours) Vital Signs Temp Pulse Pulse Resp BP Pulse Ox 08/21/21 15:32 36.4 C L 66 19 142/90 H 98 08/21/21 11:41 36.5 C 71 19 130/78 98 08/21/21 08:01 63 08/21/21 07:46 36.8 C 65 18 111/73 96 Laboratory Results Laboratory Results - last 24 hr 08/20/21 08/20/21 08/20/21 18:42 18:42 18:42 WBC 12.78 H RBC 4.92 Hgb 14.9 Hct 41.4 MCV 84.1 MCH 30.3 MCHC 36.0 RDW Std Deviation 40.5 RDW Coeff of Umair 13.4 Plt Count 338 MPV 11.4 H Immature Gran % (Auto) 0.2 Neut % (Auto) 83.2 Lymph % (Auto) 12.4 Louisa % (Auto) 3.9 Eos % (Auto) 0.2 Baso % (Auto) 0.1 Neut # (Auto) 10.64 H Lymph # (Auto) 1.58 Louisa # (Auto) 0.50 Eos # (Auto) 0.02 Baso # (Auto) 0.01 Immature Gran # (Auto) 0.03 H PT 10.3 INR 1.0 APTT 22.8 PTT Ratio 0.8 D-Dimer 340 Sodium 135 L Potassium 2.0 L* Chloride 96 L Carbon Dioxide 23 Anion Gap 16 H BUN 7 Creatinine 1.05 Est Cr Clr Drug Dosing Not Reportable Est GFR ( Amer) 66.4 Est GFR (Non-Af Amer) 57.3 BUN/Creatinine Ratio 6.7 L Glucose 350 H* POC Glucose Calcium 8.1 L Magnesium 1.4 L Total Bilirubin 0.8 Direct Bilirubin 0.1 AST 23 ALT 31 Alkaline Phosphatase 133 H Troponin I High Sens 20.3 H Total Protein 6.7 Albumin 3.3 L Lipase 7 L Urine Color Urine Appearance Urine pH Ur Specific [place] Urine Protein Urine Glucose (UA) Urine Ketones Urine Blood Urine Nitrite Urine Bilirubin Urine Urobilinogen Ur Leukocyte Esterase SARS-CoV-2 (PCR) Influenza Type A (PCR) Influenza Type B (PCR) RSV (RT-PCR) 08/20/21 08/20/21 08/20/21 20:26 22:49 Unknown WBC RBC Hgb Hct MCV MCH MCHC RDW Std Deviation RDW Coeff of Umair Plt Count MPV Immature Gran % (Auto) Neut % (Auto) Lymph % (Auto) [place] % (Auto) Eos % (Auto) Baso % (Auto) Neut # (Auto) Lymph # (Auto) [place] # (Auto) Eos # (Auto) Baso # (Auto) Immature Gran # (Auto) PT INR APTT PTT Ratio D-Dimer Sodium Potassium Chloride Carbon Dioxide Anion Gap BUN Creatinine Est Cr Clr Drug Dosing Est GFR ( Amer) Est GFR (Non-Af Amer) BUN/Creatinine Ratio Glucose POC Glucose 151 H Calcium Magnesium Total Bilirubin Direct Bilirubin AST ALT Alkaline Phosphatase Troponin I High Sens Total Protein Albumin Lipase Urine Color Yellow Urine Appearance Clear Urine pH 7.0 Ur Specific [place] 1.035 H Urine Protein Negative Urine Glucose (UA) 3+ H Urine Ketones Negative Urine Blood Negative Urine Nitrite Negative Urine Bilirubin Negative Urine Urobilinogen Negative Ur Leukocyte Esterase Negative SARS-CoV-2 (PCR) NEGATIVE Influenza Type A (PCR) Negative Influenza Type B (PCR) Negative RSV (RT-PCR) Negative 08/21/21 08/21/21 08/21/21 00:24 02:00 02:00 WBC 8.21 RBC 4.23 Hgb 12.3 Hct 35.3 L MCV 83.5 MCH 29.1 MCHC 34.8 RDW Std Deviation 41.0 RDW Coeff of Umair 13.7 Plt Count 245 MPV 10.5 H Immature Gran % (Auto) 0.2 Neut % (Auto) 60.5 Lymph % (Auto) 29.4 [place] % (Auto) 8.2 Eos % (Auto) 1.6 Baso % (Auto) 0.1 Neut # (Auto) 4.97 Lymph # (Auto) 2.41 Louis[place] # (Auto) 0.67 H Eos # (Auto) 0.13 Baso # (Auto) 0.01 Immature Gran # (Auto) 0.02 PT INR APTT PTT Ratio D-Dimer Sodium 139 Potassium 2.3 L* Chloride 102 Carbon Dioxide 28 Anion Gap 9 BUN 6 Creatinine 0.93 Est Cr Clr Drug Dosing 62.1 Est GFR ( Amer) 76.9 Est GFR (Non-Af Amer) 66.3 BUN/Creatinine Ratio 6.5 L Glucose 181 H POC Glucose 180 H Calcium 7.1 L Magnesium 1.9 Total Bilirubin Direct Bilirubin AST ALT Alkaline Phosphatase Troponin I High Sens 18.6 H Total Protein Albumin Lipase Urine Color Urine Appearance Urine pH Ur Specific [place] Urine Protein Urine Glucose (UA) Urine Ketones Urine Blood Urine Nitrite Urine Bilirubin Urine Urobilinogen Ur Leukocyte Esterase SARS-CoV-2 (PCR) Influenza Type A (PCR) Influenza Type B (PCR) RSV (RT-PCR) 08/21/21 08/21/21 08/21/21 03:13 06:42 06:49 WBC RBC Hgb Hct MCV MCH MCHC RDW Std Deviation RDW Coeff of Umair Plt Count MPV Immature Gran % (Auto) Neut % (Auto) Lymph % (Auto) [place] % (Auto) Eos % (Auto) Baso % (Auto) Neut # (Auto) Lymph # (Auto) [place] # (Auto) Eos # (Auto) Baso # (Auto) Immature Gran # (Auto) PT INR APTT PTT Ratio D-Dimer Sodium 137 Potassium 2.8 L D Chloride 104 Carbon Dioxide 25 Anion Gap 8 BUN 5 L Creatinine 0.72 Est Cr Clr Drug Dosing 80.2 Est GFR ( Amer) 104.8 Est GFR (Non-Af Amer) 90.4 BUN/Creatinine Ratio 6.9 L Glucose 165 H POC Glucose 189 H 153 H Calcium 7.2 L Magnesium Total Bilirubin Direct Bilirubin AST ALT Alkaline Phosphatase Troponin I High Sens Total Protein Albumin Lipase Urine Color Urine Appearance Urine pH Ur Specific [place] Urine Protein Urine Glucose (UA) Urine Ketones Urine Blood Urine Nitrite Urine Bilirubin Urine Urobilinogen Ur Leukocyte Esterase SARS-CoV-2 (PCR) Influenza Type A (PCR) Influenza Type B (PCR) RSV (RT-PCR) 08/21/21 08/21/21 08/21/21 07:37 11:51 12:47 WBC RBC Hgb Hct MCV MCH MCHC RDW Std Deviation RDW Coeff of Umair Plt Count MPV Immature Gran % (Auto) Neut % (Auto) Lymph % (Auto) [place] % (Auto) Eos % (Auto) Baso % (Auto) Neut # (Auto) Lymph # (Auto) [place] # (Auto) Eos # (Auto) Baso # (Auto) Immature Gran # (Auto) PT INR APTT PTT Ratio D-Dimer Sodium 137 Potassium 2.6 L Chloride 103 Carbon Dioxide 27 Anion Gap 7 BUN 6 Creatinine 0.74 Est Cr Clr Drug Dosing 78.0 Est GFR ( Amer) 101.3 Est GFR (Non-Af Amer) 87.4 BUN/Creatinine Ratio 8.1 L Glucose 134 H POC Glucose 153 H 156 H Calcium 7.6 L Magnesium Total Bilirubin Direct Bilirubin AST ALT Alkaline Phosphatase Troponin I High Sens Total Protein Albumin Lipase Urine Color Urine Appearance Urine pH Ur Specific [place] Urine Protein Urine Glucose (UA) Urine Ketones Urine Blood Urine Nitrite Urine Bilirubin Urine Urobilinogen Ur Leukocyte Esterase SARS-CoV-2 (PCR) Influenza Type A (PCR) Influenza Type B (PCR) RSV (RT-PCR) 08/21/21 08/21/21 16:20 17:36 WBC RBC Hgb Hct MCV MCH MCHC RDW Std Deviation RDW Coeff of Umair Plt Count MPV Immature Gran % (Auto) Neut % (Auto) Lymph % (Auto) [place] % (Auto) Eos % (Auto) Baso % (Auto) Neut # (Auto) Lymph # (Auto) [place] # (Auto) Eos # (Auto) Baso # (Auto) Immature Gran # (Auto) PT INR APTT PTT Ratio D-Dimer Sodium Potassium Chloride Carbon Dioxide Anion Gap BUN Creatinine Est Cr Clr Drug Dosing Est GFR ( Amer) Est GFR (Non-Af Amer) BUN/Creatinine Ratio Glucose POC Glucose 87 123 H Calcium Magnesium Total Bilirubin Direct Bilirubin AST ALT Alkaline Phosphatase Troponin I High Sens Total Protein Albumin Lipase Urine Color Urine Appearance Urine pH Ur Specific [place] Urine Protein Urine Glucose (UA) Urine Ketones Urine Blood Urine Nitrite Urine Bilirubin Urine Urobilinogen Ur Leukocyte Esterase SARS-CoV-2 (PCR) Influenza Type A (PCR) Influenza Type B (PCR) RSV (RT-PCR) PG Care Time/CCT Total # of Minutes Spent Total Time Spent with Patient: Total time spent is greater than 50% in coordination of care (as documented) at patient's floor/unit and/or counseling patient: Coding Level of Care Code 34375 Inpt Consult Level 4 Diagnoses Hypomagnesemia E83.42 Hypertension I10 Nausea vomiting and diarrhea R11.2; R19.7 Acute hypokalemia E87.6
[2021-08-21] MEDS ORDERED: INSULIN HUMAN NPH SC ONE (18:30)
[2021-08-21] MEDS: fluvoxaMINE MALEATE 50 MG TAB PO SCH (21:16)
[2021-08-21] MEDS: FAMOTIDINE 10 MG TABLET PO SCH (21:16)
--- NOTE | 2021-08-21 22:39 | Electrocardiogram Report ---
Test Reason : Blood Pressure : / mmHG Vent. Rate : 071 BPM Atrial Rate : 071 BPM P-R Int : 142 ms QRS Dur : 080 ms QT Int : 512 ms P-R-T Axes : 050 052 215 degrees QTc Int : 556 ms Sinus rhythm Prolonged QT Abnormal ECG When compared with ECG of 01-JUL-2021 19:10, ST now depressed in Anterior leads QT has lengthened Confirmed by Jose R Flores ([id number]) on 08/21/2021 10:38:49 PM Referred By: Norberto Marroquin Confirmed By:Jose R Flores
[2021-08-22] MEDS: LEVOTHYROXINE SODIUM 88 MCG TABLET PO SCH (06:45)
[2021-08-22] MEDS ORDERED: INSULIN HUMAN NPH SC SCH ×2 (08:00→17:00)
[2021-08-22] MEDS ORDERED: LORazepam 0.5 MG TAB PO ONE (08:21)
[2021-08-22] MEDS ORDERED: PYRIDOXINE HCL 50 MG TAB PO ONE (08:21)
[2021-08-22 08:40] LABS: Albumin Level 2.8 gm/dl (3.4-5.0); BUN Creatinine Ratio 8.5 (10-20); Calcium 7.4 mg/dl (8.5-10.1); Creatinine Clr Calc Pharmacy 97.8 ml/min; Est GFR (African American) 114.7 ml/min; Est GFR (Non-African American) 98.9 ml/min; Magnesium 1.5 mg/dl (1.7-2.4); Phosphorus 3.1 mg/dl (2.5-4.9); Potassium 2.5 mmol/L (3.5-5.1)
[2021-08-22] MEDS: INSULIN ASPART PER UNIT SC SCH ×4 (08:46→20:24)
[2021-08-22] MEDS: TICAGRELOR 90 MG TAB PO SCH ×2 (08:47→20:23)
[2021-08-22] MEDS: ATORVASTATIN 40 MG TAB PO SCH (08:47)
[2021-08-22] MEDS: PANTOprazole 40 MG TAB PO SCH (08:47)
[2021-08-22] MEDS: ENOXAPARIN INJ 40 MG/0.4 ML SYR SQ SCH (08:47)
[2021-08-22] MEDS ORDERED: MAGNESIUM OXIDE 400 MG TAB PO SCH (09:00)
[2021-08-22] MEDS: POTASSIUM CHLORIDE / WTR 10 MEQ/100 ML PLCT IV SCH ×4 (09:54→16:17)
[2021-08-22] MEDS: MAGNESIUM SULFATE / D5W 1 GM/100 ML BAG IV SCH ×2 (09:54→12:14)
[2021-08-22] MEDS: POTASSIUM CHLORIDE CRTAB 20 MEQ TABCR PO SCH ×3 (09:54→20:23)
[2021-08-22] MEDS: lisinopril 20 MG TAB PO SCH (09:55)
--- NOTE | 2021-08-22 10:40 | Nephrology Progress Note ---
Date of Service August 22, 2021 Assessment & Plan (1) Hypomagnesemia: (2) Hypertension: (3) Nausea vomiting and diarrhea: (4) Acute hypokalemia: Plan: Clinical presentation consistent with poor PO intake and GI losses. Additional replacement ordered today - KCl 20 mEq PO TID + 40 mEq IV. Magnesium 2 gram IV and 400 mg PO BID. The importance of appropriate glycemic control was stressed. Ultimately, Yolanda would benefit from ELHAM/ARB therapy. No absolute contraind ication noted per my review of the record. Document I/O's. Repeat metabolic profile tomorrow. Close outpatient follow up will be required post discharge. Euvolemic. BP acceptable. Admission and Anticipated Discharge Date Admission Date: August 20, 2021 Subjective No acute events overnight. Nausea this AM. Vomiting s/p breakfast x 1. No BM today. Denies abdominal pain. Very concerned about blood sugars and risk of hypoglycemia. Review of Systems Review of Systems: All systems reviewed & are unremarkable except as noted in HPI & below Physical Exam Constitutional: well developed; no acute distress Eyes: no scleral abnormality and no corneal abnormality ENMT: Mouth: no oral mucosal abnormality and oral mucous membranes not dry Neck: normal visual inspection and trachea midline Respiratory: normal respiratory effort Auscultation: lungs clear to auscultation bilaterally Cardiovascular: Rate/Rhythm: regular rate Heart Sounds: normal S1 and normal S2 Extremities: no edema Musculoskeletal: Extremities: no cyanosis and no clubbing Skin: normal turgor; no lesions Neurologic: Motor/Sensory: no tremor and no asterixis Psychiatric: Orientation: alert and oriented x 3 Results & Data ([facility]) Vital Signs (Past 12 Hours) Vital Signs Temp Pulse Pulse Pulse Resp BP BP 08/22/21 07:50 36.6 C 70 18 132/78 08/22/21 07:25 80 08/22/21 07:21 36.8 C 74 20 138/81 08/22/21 04:06 36.6 C 86 18 156/85 H 08/21/21 23:07 36.6 C 78 18 136/82 08/21/21 22:43 84 Pulse Ox 08/22/21 07:50 97 08/22/21 07:25 08/22/21 07:21 95 08/22/21 04:06 96 08/21/21 23:07 98 08/21/21 22:43 Laboratory Results Laboratory Results - last 24 hr 08/21/21 08/21/21 08/21/21 11:51 12:47 16:20 Sodium 137 Potassium 2.6 L Chloride 103 Carbon Dioxide 27 Anion Gap 7 BUN 6 Creatinine 0.74 Est Cr Clr Drug Dosing 78.0 Est GFR ( Amer) 101.3 Est GFR (Non-Af Amer) 87.4 BUN/Creatinine Ratio 8.1 L Glucose 134 H POC Glucose 156 H 87 Calcium 7.6 L Phosphorus Magnesium Albumin 08/21/21 08/21/21 08/21/21 17:36 20:43 22:28 Sodium Potassium Chloride Carbon Dioxide Anion Gap BUN Creatinine Est Cr Clr Drug Dosing Est GFR ( Amer) Est GFR (Non-Af Amer) BUN/Creatinine Ratio Glucose POC Glucose 123 H 134 H 137 H Calcium Phosphorus Magnesium Albumin 08/22/21 08/22/21 08/22/21 01:56 04:14 07:06 Sodium Potassium Chloride Carbon Dioxide Anion Gap BUN Creatinine Est Cr Clr Drug Dosing Est GFR ( Amer) Est GFR (Non-Af Amer) BUN/Creatinine Ratio Glucose POC Glucose 124 H 106 H 118 H Calcium Phosphorus Magnesium Albumin 08/22/21 07:12 Sodium 139 Potassium 2.5 L* Chloride 105 Carbon Dioxide 25 Anion Gap 9 BUN 5 L Creatinine 0.59 L Est Cr Clr Drug Dosing 97.8 Est GFR ( Amer) 114.7 Est GFR (Non-Af Amer) 98.9 BUN/Creatinine Ratio 8.5 L Glucose 104 H POC Glucose Calcium 7.4 L Phosphorus 3.1 Magnesium 1.5 L Albumin 2.8 L PG Care Time/CCT Total # of Minutes Spent Total Time Spent with Patient: Total time spent is greater than 50% in coordination of care (as documented) at patient's floor/unit and/or counseling patient: Coding Level of Care Code 43664 Subseq Hosp Care Lvl 3 Diagnoses Hypomagnesemia E83.42 Hypertension I10 Nausea vomiting and diarrhea R11.2; R19.7 Acute hypokalemia E87.6
[2021-08-22] MEDS: FAMOTIDINE 10 MG TABLET PO SCH ×2 (11:36→20:23)
--- NOTE | 2021-08-22 12:43 | Pharmacy Report ---
Pharmacy Glycemic Short Note 2 - Date of Service August 22, 2021 - Glycemic Short BSG Results (Last 24 hours): 08/21/21 08/21/21 08/21/21 12:47 16:20 17:36 Glucose 134 H POC Glucose 87 123 H 08/21/21 08/21/21 08/22/21 20:43 22:28 01:56 Glucose POC Glucose 134 H 137 H 124 H 08/22/21 08/22/21 08/22/21 04:14 07:06 07:12 Glucose 104 H POC Glucose 106 H 118 H 08/22/21 11:29 Glucose POC Glucose 127 H OUTPATIENT ANTIDIABETIC REGIMEN: * U-500 insulin initiated by chalk machine operator in July of this year * U-500 insulin 30 units SC qAM, 20 units SC qPM (takes at 1600 and 0000) * Farxiga 10 mg PO daily ASSESSMENT: 08/22/21 * BSGs well-controlled yesterday, ranging 87-156 mg/dL w/ fasting BSG today of 118 mg/dL * Of note, patient is extremely fearful of hypoglycemia - will loosen insulin regimen today in light of 87 mg/dL at dinnertime yesterday * Received 65 units of insulin (30 units of NPH and 35 units of Novolog) * Persistent hypokalemia despite significant PO/IV repletion 08/21/21 * LH is a 60 year old female who presented to ED last evening with chief complaint of dizziness * Potassium of 2 mmol/L at that time, has since improved to 2.8 mmol/L * Repleted with multiple doses of supplemental KCl and IV maintenance fluids with KCl * BSG > 300 mg/dL on presentation, corrected with IV fluids * Will use NPH insulin in lieu of U-500 insulin for now PLAN FOR INPATIENT GLYCEMIC CONTROL: * Hold outpatient oral diabetes medications * Basal insulin * NPH 15 units SC x 1 this morning * NPH 5-15 units SC with dinner (see EHR for details) * Bolus insulin * NovoLog per scale ACHS or Q6hrs while NPO * Goal Range: Low 110 mg/dL - High 140 mg/dL * Correction Factor: 15 mg/dL/unit * Nutritional / Prandial insulin per carb ratio of 1 unit per 5 grams CHO consumed
--- NOTE | 2021-08-22 14:42 | Hospitalist Progress Note ---
Date of Service August 22, 2021 Assessment & Plan (1) Acute hypokalemia: Plan: 60 y/o female w/ PMHx of multiple prior admissions for similar symptoms, CAD s/p stents, uncontrolled IDDM2, HTN, hypothyroidism, tobacco use, and anxiety/OCD who presents w/ dizzines, nausea and LUQ abd pain most likely related to hyperglycemia and hypokalemia. Acute hypokalemia Severe, in the setting of running out of her oral potassium supplement [employer] Multiple admissions for similar with extensive workup including CT, MRCP, liver ultrasounds, celiac panel, EGD gastric emptying study wiithout significant findings other than chronic gastritis. Potassium previously repleted Magnesium this morning 1.5, potassium critically low at 2.5 Oral and IV potassium repletion ordered, 2 g mag IV with additional oral magnesium repletion ordered Repeat/trend BMP Requires further care for critically low potassium - CT abd/pelv: No acute intra-abdominal or pelvic finding. Reticulosis without diverticulitis - EKG ecg: Mild changes likely related to hypokalemia. Compared w/ 07/01/21 ecg. QTc prolongation 456->556. Mild anterior lead ST depressions. Zofran/Compazine/Phenergan deferred due to QT prolongation High-sensitivity troponin 20.3, down trended to 18. Likely demand. (2) Hyperglycemia: Plan: - see above. - SSI + Lantus after hypokalemia improves. Can d/c NPO after this. (3) Hypomagnesemia: Plan: - replete, follow labs (4) CAD (coronary artery disease): Plan: - continue home ticagrelor (5) Hypothyroidism: Plan: - continue home regimen (6) Hypertension: Plan: - soft BPs, hold home meds - improved w/ IV fluids (7) Leukocytosis: Plan: - may be reactive. lower suspicion for infection->hyperglycemia as the hyperglycemia has been prolonged Repeat CBC pending (8) Tobacco abuse: Plan: - offered nicotine patch, declines at this time (9) Dyslipidemia: Plan: - hx of. continue home statin (10) Diabetes type 2, uncontrolled: Plan: - a1c 10.7 06/2021 - see above Adequate glycemic control today, pharmacy following for glycemic management. Appreciate adjustments. (11) Left upper quadrant pain: Plan: - reassuring CT abd/pelv. prior admissions w/ similar abd pains. this admission, consider nausea and hypokalemia as well (12) Anxiety: Plan: - per PCP notes, anxiety, depression, OCD. On fluvoxamine (13) Failure to thrive in adult: Plan: - per PCP notes, concern about ability to manage meds at home; considering personal care ome Plan: FEN/GI: DM2 ppx: sq heparin code: full dispo: med tele Admission and Anticipated Discharge Date Admission Date: August 20, 2021 Subjective Feels she is gradually improving a little, continued to be nauseous this morning and overall feels weak. Denies fever/chills/sweats. No vomiting this morning, tolerated a small amount of breakfast. Feels her dizziness has greatly improved, although she is very concerned about the lightheadedness that brought her in and suspect 2/2 her metoprolol dosing. Patient aware she is being switched back over to lisinopril, which she has tolerated well before. Review of Systems Review of Systems: All systems reviewed & are unremarkable except as noted in Subjective Physical Exam Physical Exam: General: A&Ox3. NAD. Cooperative. HEENT: Atraumatic, normocephalic. Hearing grossly intact Pulm: Moderate to good air movement, clear without rales/wheezes. Symmetrical chest rise. No increase in work of breathing. No respiratory distress. Cardiac: RRR, -mrg. Radial pulses intact and symmetrical. Abdominal: Nontender, nondistended, soft. BS present. Results & Data Results & Data ([place]) Vital Signs (Past 12 Hours) Vital Signs Temp Pulse Pulse Pulse Resp BP BP 08/22/21 11:30 36.7 C 82 18 126/82 08/22/21 07:50 36.6 C 70 18 132/78 08/22/21 07:25 80 08/22/21 07:21 36.8 C 74 20 138/81 08/22/21 04:06 36.6 C 86 18 156/85 H Pulse Ox 08/22/21 11:30 96 08/22/21 07:50 97 08/22/21 07:25 08/22/21 07:21 95 08/22/21 04:06 96 PG Care Time/CCT Total # of Minutes Spent Total Time Spent with Patient: Total time spent is greater than 50% in coordination of care (as documented) at patient's floor/unit and/or counseling patient: Coding Level of Care Code 57588 Subseq Hosp Care Lvl 2 Diagnoses Acute hypokalemia E87.6 Hyperglycemia R73.9 Hypomagnesemia E83.42 CAD (coronary artery disease) I25.10 Coronary Disease-Associated Artery/Lesion type: [place] artery [place] vs. transplanted heart: [place] heart Associated angina: unspecified whether angina present Hypothyroidism E03.9 Hypertension I10 Leukocytosis D72.829 Tobacco abuse Z72.0 Dyslipidemia E78.5 Diabetes type 2, uncontrolled E11.65 Left upper quadrant pain R10.12 Anxiety F41.9 Failure to thrive in adult R62.7 (1) CAD (coronary artery disease) Coronary Disease-Associated Artery/Lesion type: [place] artery [place] vs. transplanted heart: [place] heart Associated angina: unspecified whether angina present Qualified Code(s): I25.10 - Atherosclerotic heart disease of [place] coronary artery without angina pectoris
[2021-08-22 15:49] LABS: BUN Creatinine Ratio 7.6 (10-20); Calcium 7.9 mg/dl (8.5-10.1); Creatinine Clr Calc Pharmacy 87.4 ml/min; Est GFR (African American) 110.5 ml/min; Est GFR (Non-African American) 95.3 ml/min; Magnesium 2.1 mg/dl (1.7-2.4); Potassium 2.9 mmol/L (3.5-5.1)
[2021-08-22] MEDS ORDERED: POTASSIUM CHLORIDE / WTR 10 MEQ/100 ML PLCT IV SCH (16:15)
[2021-08-22] MEDS ORDERED: ACETAMINOPHEN 325 MG TAB ONE (20:04)
[2021-08-22] MEDS: ACETAMINOPHEN 325 MG TAB PO PRN (20:12)
[2021-08-22] MEDS: fluvoxaMINE MALEATE 50 MG TAB PO SCH (20:23)
[2021-08-23] MEDS: LEVOTHYROXINE SODIUM 88 MCG TABLET PO SCH (06:15)
--- NOTE | 2021-08-23 06:48 | Communication Note ---
Date of Service: August 23, 2021 rechecking ecg to check for qtc prolongation. no zofran until resolved
[2021-08-23] MEDS: FAMOTIDINE 10 MG TABLET PO SCH ×2 (07:17→20:37)
[2021-08-23] MEDS: ATORVASTATIN 40 MG TAB PO SCH (07:36)
[2021-08-23] MEDS: lisinopril 20 MG TAB PO SCH (07:36)
[2021-08-23] MEDS: ENOXAPARIN INJ 40 MG/0.4 ML SYR SQ SCH (07:37)
[2021-08-23] MEDS: PANTOprazole 40 MG TAB PO SCH (07:37)
[2021-08-23] MEDS: MAGNESIUM OXIDE 400 MG TAB PO SCH (07:37)
[2021-08-23] MEDS: TICAGRELOR 90 MG TAB PO SCH ×2 (07:37→20:36)
[2021-08-23] MEDS: POTASSIUM CHLORIDE CRTAB 20 MEQ TABCR PO SCH ×3 (07:39→20:36)
[2021-08-23 07:49] LABS: Basophils # (auto) 0.02 K/uL (0-0.2); Basophils % (auto) 0.3 %; Eosinophils % (auto) 2.9 %; Hematocrit (blood only) 37.6 % (34.1-44.9); Immature Granulocytes # (auto) 0.02 K/uL (0.00-0.02); Immature Granulocytes % (auto) 0.3 %; Lymphocytes # (auto) 1.41 K/uL (1.2-3.4); Lymphocytes % (auto) 20.6 %; Mean Corpuscular Hgb Conc 34.6 g/dL (32.0-36.0); Mean Corpuscular Volume 83.7 fL (80.0-100.0); Mean Platelet Volume 11.4 fL (9.4-12.3); Monocytes % (auto) 7.3 %; Neutrophils % (auto) 68.6 %; Platelet Count 224 K/uL (130-400); RDW Coefficient of Variation 13.4 % (11.5-14.5); RDW Standard Deviation 40.7 fL (36.4-46.3); Red Blood Count 4.49 M/uL (3.93-5.22); White Blood Count 6.85 K/ul (4.8-10.8)
[2021-08-23 08:10] LABS: Albumin Level 2.9 gm/dl (3.4-5.0); BUN Creatinine Ratio 9.8 (10-20); Calcium 7.9 mg/dl (8.5-10.1); Creatinine Clr Calc Pharmacy 94.6 ml/min; Est GFR (African American) 113.4 ml/min; Est GFR (Non-African American) 97.8 ml/min; Magnesium 1.6 mg/dl (1.7-2.4); Phosphorus 3.3 mg/dl (2.5-4.9); Potassium 2.9 mmol/L (3.5-5.1)
[2021-08-23] MEDS: INSULIN HUMAN NPH SC SCH ×2 (08:32→17:10)
[2021-08-23] MEDS: INSULIN ASPART PER UNIT SC SCH ×4 (08:33→20:42)
[2021-08-23] MEDS: POTASSIUM CHLORIDE / WTR 10 MEQ/100 ML PLCT IV SCH ×4 (09:31→18:53)
[2021-08-23] MEDS: MAGNESIUM SULFATE / D5W 1 GM/100 ML BAG IV SCH ×2 (09:32→12:05)
--- NOTE | 2021-08-23 09:54 | Pharmacy Report ---
Pharmacy Glycemic Short Note 2 - Date of Service August 23, 2021 - Glycemic Short BSG Results (Last 24 hours): 08/22/21 08/22/21 08/22/21 11:29 15:01 16:32 Glucose 118 H POC Glucose 127 H 123 H 08/22/21 08/22/21 08/23/21 20:07 23:15 06:24 Glucose POC Glucose 115 H 129 H 134 H 08/23/21 07:24 Glucose 137 H POC Glucose OUTPATIENT ANTIDIABETIC REGIMEN: * U-500 insulin initiated by continuous improvement specialist in July of this year * U-500 insulin 30 units SC qAM, 20 units SC qPM (takes at 1600 and 0000) * Farxiga 10 mg PO daily * HbA1c = 10.7% (07/02/21) ASSESSMENT: 08/23: * Yolanda received a total of 22 units of insulin yesterday (20 units basal + 2 units bolus). BSGs well controlled: [phone] mg/dL. * Appear to have some nausea yesterday and only ate tiny amount for dinner. Zofran ordered once QTc confirmed to not be prolonged. * Fasting BSG well controlled at 134 mg/dL this AM. Appetite appears better with 40 g of CHO for breakfast. * Will schedule NPH doses today rather than scaling them. Aware patient is fearful of hypoglycemia. If necessary, will loosen Novolog today. 08/22: * BSGs well-controlled yesterday, ranging 87-156 mg/dL w/ fasting BSG today of 118 mg/dL * Of note, patient is extremely fearful of hypoglycemia - will loosen insulin regimen today in light of 87 mg/dL at dinnertime yesterday * Received 65 units of insulin (30 units of NPH and 35 units of Novolog) * Persistent hypokalemia despite significant PO/IV repletion 08/21: * LH is a 60 year old female who presented to ED last evening with chief complaint of dizziness * Potassium of 2 mmol/L at that time, has since improved to 2.8 mmol/L * Repleted with multiple doses of supplemental KCl and IV maintenance fluids with KCl * BSG > 300 mg/dL on presentation, corrected with IV fluids * Will use NPH insulin in lieu of U-500 insulin for now PLAN FOR INPATIENT GLYCEMIC CONTROL: * Hold outpatient oral diabetes medications * Basal insulin * NPH 15 units SC with breakfast * NPH 10 units SC with dinner * Bolus insulin * NovoLog per scale ACHS or Q6hrs while NPO * Goal Range: Low 110 mg/dL - High 140 mg/dL * Correction Factor: 15 mg/dL/unit * Nutritional / Prandial insulin per carb ratio of 1 unit per 5 grams CHO consumed
[2021-08-23] MEDS ORDERED: GLUCOSE 10 TAB/TUBE PO PRN (10:15)
[2021-08-23] MEDS ORDERED: CARBOHYDRATES FOR HYPOGLYCEMIA PO PRN (10:15)
[2021-08-23] MEDS ORDERED: GLUCAGON FOR INJ 1 MG VIAL IM PRN (10:15)
[2021-08-23] MEDS ORDERED: DEXTROSE 50% 50 ML SYRINGE IV PRN (10:15)
[2021-08-23] MEDS ORDERED: GLUCOSE 40% GEL 15 GM TUBE PO PRN (10:15)
--- NOTE | 2021-08-23 10:20 | Nephrology Progress Note ---
Date of Service August 23, 2021 Assessment & Plan (1) Hypomagnesemia: (2) Hypertension: (3) Nausea vomiting and diarrhea: (4) Acute hypokalemia: Plan: Clinical presentation consistent with poor PO intake and GI losses. Additional replacement ordered today - KCl 20 mEq PO TID + 20 mEq IV. Magnesium 2 gram IV and 400 mg PO BID. Lisinopril 20 mg daily added. Document I/O's. Repeat metabolic profile tomorrow. Close outpatient follow up will be required post discharge. Euvolemic. BP acceptable. Admission and Anticipated Discharge Date Admission Date: August 20, 2021 Subjective No acute events overnight. Nausea, poor appetite, and weakness persist. 1 BM yesterday. Yolanda has moved her bowels twice this AM. Stool remains loose. No bl ood reported. She denies abdominal pain. No vomiting today. She continues to have anxiety regarding he blood sugars dropping too low. Lisinopril restarted. Review of Systems Review of Systems: All systems reviewed & are unremarkable except as noted in HPI & below Physical Exam Constitutional: well developed; no acute distress Eyes: no scleral abnormality and no corneal abnormality ENMT: Mouth: no oral mucosal abnormality and oral mucous membranes not dry Neck: normal visual inspection and trachea midline Respiratory: normal respiratory effort Auscultation: lungs clear to auscultation bilaterally Cardiovascular: Rate/Rhythm: regular rate Heart Sounds: normal S1 and normal S2 Extremities: no edema Musculoskeletal: Extremities: no cyanosis and no clubbing Skin: normal turgor; no lesions Neurologic: Motor/Sensory: no tremor and no asterixis Psychiatric: Orientation: alert and oriented x 3 Results & Data ([facility]) Vital Signs (Past 12 Hours) Vital Signs Temp Pulse Pulse Resp BP Pulse Ox 08/23/21 07:42 36.3 C L 68 18 160/90 H 97 08/22/21 23:19 71 08/22/21 23:02 36.7 C 84 18 102/69 98 Laboratory Results Laboratory Results - last 24 hr 08/22/21 08/22/21 08/22/21 11:29 15:01 16:32 WBC RBC Hgb Hct MCV MCH MCHC RDW Std Deviation RDW Coeff of Umair Plt Count MPV Immature Gran % (Auto) Neut % (Auto) Lymph % (Auto) [place] % (Auto) Eos % (Auto) Baso % (Auto) Neut # (Auto) Lymph # (Auto) [place] # (Auto) Eos # (Auto) Baso # (Auto) Immature Gran # (Auto) Sodium 137 Potassium 2.9 L Chloride 102 Carbon Dioxide 29 Anion Gap 6 BUN 5 L Creatinine 0.66 Est Cr Clr Drug Dosing 87.4 Est GFR ( Amer) 110.5 Est GFR (Non-Af Amer) 95.3 BUN/Creatinine Ratio 7.6 L Glucose 118 H POC Glucose 127 H 123 H Calcium 7.9 L Phosphorus Magnesium 2.1 Albumin 08/22/21 08/22/21 08/23/21 20:07 23:15 06:24 WBC RBC Hgb Hct MCV MCH MCHC RDW Std Deviation RDW Coeff of Umair Plt Count MPV Immature Gran % (Auto) Neut % (Auto) Lymph % (Auto) [place] % (Auto) Eos % (Auto) Baso % (Auto) Neut # (Auto) Lymph # (Auto) [place] # (Auto) Eos # (Auto) Baso # (Auto) Immature Gran # (Auto) Sodium Potassium Chloride Carbon Dioxide Anion Gap BUN Creatinine Est Cr Clr Drug Dosing Est GFR ( Amer) Est GFR (Non-Af Amer) BUN/Creatinine Ratio Glucose POC Glucose 115 H 129 H 134 H Calcium Phosphorus Magnesium Albumin 08/23/21 08/23/21 07:24 07:24 WBC 6.85 RBC 4.49 Hgb 13.0 Hct 37.6 MCV 83.7 MCH 29.0 MCHC 34.6 RDW Std Deviation 40.7 RDW Coeff of Umair 13.4 Plt Count 224 MPV 11.4 Immature Gran % (Auto) 0.3 Neut % (Auto) 68.6 Lymph % (Auto) 20.6 [place] % (Auto) 7.3 Eos % (Auto) 2.9 Baso % (Auto) 0.3 Neut # (Auto) 4.70 Lymph # (Auto) 1.41 [place] # (Auto) 0.50 Eos # (Auto) 0.20 Baso # (Auto) 0.02 Immature Gran # (Auto) 0.02 Sodium 138 Potassium 2.9 L Chloride 106 Carbon Dioxide 26 Anion Gap 6 BUN 6 Creatinine 0.61 Est Cr Clr Drug Dosing 94.6 Est GFR ( Amer) 113.4 Est GFR (Non-Af Amer) 97.8 BUN/Creatinine Ratio 9.8 L Glucose 137 H POC Glucose Calcium 7.9 L Phosphorus 3.3 Magnesium 1.6 L Albumin 2.9 L PG Care Time/CCT Total # of Minutes Spent Total Time Spent with Patient: Total time spent is greater than 50% in coordination of care (as documented) at patient's floor/unit and/or counseling patient: Coding Level of Care Code 49120 Subseq Hosp Care Lvl 3 Diagnoses Hypomagnesemia E83.42 Hypertension I10 Nausea vomiting and diarrhea R11.2; R19.7 Acute hypokalemia E87.6
--- NOTE | 2021-08-23 12:17 | Hospitalist Progress Note ---
Date of Service August 23, 2021 Assessment & Plan (1) Acute hypokalemia: Plan: 60 y/o female w/ PMHx of multiple prior admissions for similar symptoms, CAD s/p stents, uncontrolled IDDM2, HTN, hypothyroidism, tobacco use, and anxiety/OCD who presents w/ dizzines, nausea and LUQ abd pain most likely related to hyperglycemia and hypokalemia. Acute hypokalemia Severe, in the setting of running out of her oral potassium supplement [employer] Multiple admissions for similar with extensive workup including CT, MRCP, liver ultrasounds, celiac panel, EGD gastric emptying study wiithout significant findings other than chronic gastritis. Potassium previously repleted Magnesium remains low, 1.6, additional repletion pending Potassium remains low 2.9, but did not have further drop today. Continue repletion Trend BMP - Lisinopril resumed - Cr at bl Requires further care for Po kalemia, gradually stabilizing and improving - CT abd/pelv: No acute intra-abdominal or pelvic finding. Reticulosis without diverticulitis - EKG ecg: Mild changes likely related to hypokalemia. Compared w/ 07/01/21 ecg. QTc prolongation 456->556. Mild anterior lead ST depressions. Zofran/Compazine/Phenergan deferred due to QT prolongation. Repeat EKG with n ormalization of QT, Zofran as needed ordered High-sensitivity troponin 20.3, down trended to 18. Likely demand. (2) Hyperglycemia: Plan: - see above. - SSI + Lantus after hypokalemia improves. Can d/c NPO after this. (3) Hypomagnesemia: Plan: - replete, follow labs (4) CAD (coronary artery disease): Plan: - continue home ticagrelor (5) Hypothyroidism: Plan: - continue home regimen (6) Hypertension: Plan: - soft BPs, hold home meds - improved w/ IV fluids (7) Leukocytosis: Plan: - Resolved (8) Tobacco abuse: Plan: - offered nicotine patch, declines at this time (9) Dyslipidemia: Plan: - hx of. continue home statin (10) Diabetes type 2, uncontrolled: Plan: - a1c 10.7 06/2021 - see above Adequate glycemic control today, pharmacy following for glycemic management. Appreciate adjustments. (11) Left upper quadrant pain: Plan: - reassuring CT abd/pelv. prior admissions w/ similar abd pains. this admission, consider nausea and hypokalemia as well (12) Anxiety: Plan: - per PCP notes, anxiety, depression, OCD. On fluvoxamine (13) Failure to thrive in adult: Plan: - per PCP notes, concern about ability to manage meds at home; considering personal care ome Plan: FEN/GI: DM2 ppx: sq heparin code: full dispo: med tele Admission and Anticipated Discharge Date Admission Date: August 20, 2021 Subjective Seen at the bedside. Feels tired, but overall "okay ". Loose bowel movements, not liquid. Nausea improved at time bedside assessment, reports did have an episode of nausea overnight. QT has returned to normal. Denies any chest pain, chest pressure, shortness of breath, difficulty breathing today Review of Systems Review of Systems: All systems reviewed & are unremarkable except as noted in Subjective Physical Exam Physical Exam: General: A&Ox3. NAD. Cooperative. HEENT: Atraumatic, normocephalic. Hearing grossly intact Pulm: Moderate air movement, clear without rales/wheezes. Symmetrical chest rise. No increase in work of breathing. No respiratory distress. Cardiac: RRR, -mrg. Radial pulses intact and symmetrical. Abdominal: Nontender, nondistended, soft. BS present. Results & Data Results & Data ([facility]) Vital Signs (Past 12 Hours) Vital Signs Temp Pulse Resp BP Pulse Ox 08/23/21 10:59 36.7 C 74 18 145/83 H 96 08/23/21 07:42 36.3 C L 68 18 160/90 H 97 PG Care Time/CCT Total # of Minutes Spent Total Time Spent with Patient: Total time spent is greater than 50% in coordination of care (as documented) at patient's floor/unit and/or counseling patient: Coding Level of Care Code 89678 Subseq Hosp Care Lvl 2 Diagnoses Acute hypokalemia E87.6 Hyperglycemia R73.9 Hypomagnesemia E83.42 CAD (coronary artery disease) I25.10 Coronary Disease-Associated Artery/Lesion type: [place] artery [place] vs. transplanted heart: [place] heart Associated angina: unspecified whether angina present Hypothyroidism E03.9 Hypertension I10 Leukocytosis D72.829 Tobacco abuse Z72.0 Dyslipidemia E78.5 Diabetes type 2, uncontrolled E11.65 Left upper quadrant pain R10.12 Anxiety F41.9 Failure to thrive in adult R62.7 (1) CAD (coronary artery disease) Coronary Disease-Associated Artery/Lesion type: [place] artery [place] vs. transplanted heart: [place] heart Associated angina: unspecified whether angina present Qualified Code(s): I25.10 - Atherosclerotic heart disease of [place] coronary artery without angina pectoris
[2021-08-23] MEDS: ACETAMINOPHEN 325 MG TAB PO PRN (20:36)
[2021-08-23] MEDS: fluvoxaMINE MALEATE 50 MG TAB PO SCH (20:37)
[2021-08-24] MEDS ORDERED: NITROGLYCERIN SL 0.4 MG/TAB TAB SL STA (02:54)
--- NOTE | 2021-08-24 03:03 | Communication Note ---
Date of Service: August 24, 2021 Messaged by nursing about 5/10 throbbing chest pain. SL nitro, trop. ecg reviewed reassuring. Some improvement w/ the nitro, 4/10 chest pain after. Repeat trop in 4 hours.
[2021-08-24] MEDS ORDERED: NITROGLYCERIN SL 0.4 MG/TAB TAB ONE (03:04)
[2021-08-24] MEDS: ACETAMINOPHEN 325 MG TAB PO PRN ×3 (03:51→20:20)
[2021-08-24 03:58] LABS: Basophils # (auto) 0.02 K/uL (0-0.2); Basophils % (auto) 0.3 %; Eosinophils # (auto) 0.27 K/uL (0-0.50); Hemoglobin 12.2 g/dl (12.0-16.0); Immature Granulocytes # (auto) 0.02 K/uL (0.00-0.02); Immature Granulocytes % (auto) 0.3 %; Lymphocytes # (auto) 1.41 K/uL (1.2-3.4); Lymphocytes % (auto) 20.9 %; Mean Corpuscular Hemoglobin 29.2 pg (25.0-34.0); Mean Corpuscular Hgb Conc 33.9 g/dL (32.0-36.0); Mean Corpuscular Volume 86.1 fL (80.0-100.0); Mean Platelet Volume 10.7 fL (9.4-12.3); Monocytes # (auto) 0.49 K/uL (0.24-0.82); Monocytes % (auto) 7.3 %; Neutrophils # (auto) 4.54 K/uL (1.4-6.5); Neutrophils % (auto) 67.2 %; Platelet Count 210 K/uL (130-400); RDW Coefficient of Variation 13.4 % (11.5-14.5); RDW Standard Deviation 41.5 fL (36.4-46.3); Red Blood Count 4.18 M/uL (3.93-5.22); White Blood Count 6.75 K/ul (4.8-10.8)
[2021-08-24 04:33] LABS: BUN Creatinine Ratio 9.1 (10-20); Calcium 7.6 mg/dl (8.5-10.1); Creatinine Clr Calc Pharmacy 74.9 ml/min; Est GFR (African American) 96.6 ml/min; Est GFR (Non-African American) 83.3 ml/min; Magnesium 1.5 mg/dl (1.7-2.4); Potassium 3.6 mmol/L (3.5-5.1); Troponin I High Sensitivity 8.2 pg/ml (0-14)
--- NOTE | 2021-08-24 06:03 | Electrocardiogram Report ---
Test Reason : Blood Pressure : / mmHG Vent. Rate : 080 BPM Atrial Rate : 080 BPM P-R Int : 166 ms QRS Dur : 082 ms QT Int : 406 ms P-R-T Axes : 054 056 255 degrees QTc Int : 469 ms Normal sinus rhythm Abnormal ECG When compared with ECG of 20-AUG-2021 18:27, QT has shortened Confirmed by Jose R Flores ([id number]) on 08/24/2021 6:03:18 AM Referred By: Norberto Marroquin Confirmed By:Jose R Flores
[2021-08-24] MEDS: LEVOTHYROXINE SODIUM 88 MCG TABLET PO SCH (06:25)
--- NOTE | 2021-08-24 07:49 | Pharmacy Report ---
Pharmacy Glycemic Short Note 2 - Date of Service August 24, 2021 - Glycemic Short BSG Results (Last 24 hours): 08/23/21 08/23/21 08/23/21 07:24 11:42 16:44 Glucose 137 H POC Glucose 151 H 88 08/23/21 08/23/21 08/23/21 17:00 19:54 23:08 Glucose POC Glucose 82 192 H 170 H 08/24/21 08/24/21 08/24/21 03:14 03:48 07:33 Glucose 210 H POC Glucose 186 H 233 H OUTPATIENT ANTIDIABETIC REGIMEN: * U-500 insulin initiated by litigation claim representative in July of this year * U-500 insulin 30 units SC qAM, 20 units SC qPM (takes at 1600 and 0000) * Farxiga 10 mg PO daily * HbA1c = 10.7% (07/02/21) ASSESSMENT: 08/24: * Patient received 29 units of insulin yesterday, 15 basal, 24 bolus, BSG dropped to 82mg/dl prior to dinner and patient refused NPH at that time, which resulted in higher BSGs at bedtime (192mg/dl) and this AM (233mg/dl) * Reduced AM NPH to prevent lower BSG at dinnertime, continue dinner dose, as it would have been appropriate if patient had not refused to take it. * No further changes at this time. * Will continue to try to keep BSG > 100mg/dl as patient is fearful of hypoglycemia. * Note, patient w/ severe chest pain this AM. 08/23: * Yolanda received a total of 22 units of insulin yesterday (20 units basal + 2 units bolus). BSGs well controlled: 578-362-620-115-129 mg/dL. * Appear to have some nausea yesterday and only ate tiny amount for dinner. Zofran ordered once QTc confirmed to not be prolonged. * Fasting BSG well controlled at 134 mg/dL this AM. Appetite appears better with 40 g of CHO for breakfast. * Will schedule NPH doses today rather than scaling them. Aware patient is fearful of hypoglycemia. If necessary, will loosen Novolog today. 08/22: * BSGs well-controlled yesterday, ranging 87-156 mg/dL w/ fasting BSG today of 118 mg/dL * Of note, patient is extremely fearful of hypoglycemia - will loosen insulin regimen today in light of 87 mg/dL at dinnertime yesterday * Received 65 units of insulin (30 units of NPH and 35 units of Novolog) * Persistent hypokalemia despite significant PO/IV repletion 08/21: * LH is a 60 year old female who presented to ED last evening with chief complaint of dizziness * Potassium of 2 mmol/L at that time, has since improved to 2.8 mmol/L * Repleted with multiple doses of supplemental KCl and IV maintenance fluids with KCl * BSG > 300 mg/dL on presentation, corrected with IV fluids * Will use NPH insulin in lieu of U-500 insulin for now PLAN FOR INPATIENT GLYCEMIC CONTROL: * Hold outpatient diabetes medications * Basal insulin * DECREASE: NPH 12 units SC with breakfast * NPH 10 units SC with dinner * Bolus insulin * NovoLog per scale ACHS or Q6hrs while NPO * Goal Range: Low 110 mg/dL - High 140 mg/dL * Correction Factor: 15 mg/dL/unit * Nutritional / Prandial insulin per carb ratio of 1 unit per 5 grams CHO consumed
[2021-08-24] MEDS: FAMOTIDINE 10 MG TABLET PO SCH ×2 (08:26→20:13)
[2021-08-24] MEDS: ATORVASTATIN 40 MG TAB PO SCH (08:44)
[2021-08-24] MEDS: ENOXAPARIN INJ 40 MG/0.4 ML SYR SQ SCH (08:46)
[2021-08-24] MEDS: lisinopril 20 MG TAB PO SCH ×2 (08:50→20:13)
[2021-08-24] MEDS: PANTOprazole 40 MG TAB PO SCH (08:55)
[2021-08-24] MEDS: MAGNESIUM OXIDE 400 MG TAB PO SCH (08:55)
[2021-08-24] MEDS: TICAGRELOR 90 MG TAB PO SCH ×2 (08:56→20:14)
[2021-08-24] MEDS: INSULIN ASPART PER UNIT SC SCH ×4 (09:27→20:13)
[2021-08-24] MEDS: POTASSIUM CHLORIDE CRTAB 20 MEQ TABCR PO SCH ×3 (09:29→20:14)
[2021-08-24] MEDS: INSULIN HUMAN NPH SC SCH ×3 (09:33→17:24)
[2021-08-24] MEDS: MAGNESIUM SULFATE / D5W 1 GM/100 ML BAG IV SCH ×2 (09:43→12:10)
--- NOTE | 2021-08-24 10:15 | Nephrology Progress Note ---
Date of Service August 24, 2021 Assessment & Plan (1) Hypomagnesemia: (2) Hypertension: (3) Nausea vomiting and diarrhea: (4) Acute hypokalemia: Plan: Clinical presentation consistent with poor PO intake and GI losses. Additional replacement ordered today - KCl 20 mEq PO TID and Magnesium 2 gram IV and 400 mg PO daily. Lisinopril 20 mg daily increased to BID. Document I/O's. Repeat metabolic profile tomorrow. Close outpatient follow up will be required post discharge. Euvolemic. BP acceptable. Admission and Anticipated Discharge Date Admission Date: August 20, 2021 Subjective No acute events overnight. Unable to sleep and feeling tired today. Nausea persists. Reports some abdominal bloating this AM. 4 loose stool yesterday. No BM today. Appetite remains poor. Reports only able to tolerate a few bites for breakfast. Review of Systems Review of Systems: All systems reviewed & are unremarkable except as noted in HPI & below Physical Exam Constitutional: well developed; no acute distress Eyes: no scleral abnormality and no corneal abnormality ENMT: Mouth: no oral mucosal abnormality and oral mucous membranes not dry Neck: normal visual inspection and trachea midline Respiratory: normal respiratory effort Auscultation: lungs clear to auscultation bilaterally Cardiovascular: Rate/Rhythm: regular rate Heart Sounds: normal S1 and normal S2 Extremities: no edema Musculoskeletal: Extremities: no cyanosis and no clubbing Skin: normal turgor; no lesions Neurologic: Motor/Sensory: no tremor and no asterixis Psychiatric: Orientation: alert and oriented x 3 Results & Data ([facility]) Vital Signs (Past 12 Hours) Vital Signs Temp Pulse Pulse Pulse Resp BP Pulse Ox 08/24/21 07:43 36.5 C 87 16 178/92 H 97 08/24/21 02:41 36.6 C 79 18 154/84 H 96 08/23/21 22:35 36.5 C 71 18 133/81 96 08/23/21 22:15 71 Laboratory Results Laboratory Results - last 24 hr 08/23/21 08/23/21 08/23/21 11:42 16:30 16:44 WBC RBC Hgb Hct MCV MCH MCHC RDW Std Deviation RDW Coeff of Umair Plt Count MPV Immature Gran % (Auto) Neut % (Auto) Lymph % (Auto) [place] % (Auto) Eos % (Auto) Baso % (Auto) Neut # (Auto) Lymph # (Auto) [place] # (Auto) Eos # (Auto) Baso # (Auto) Immature Gran # (Auto) Sodium Potassium 2.7 L Chloride Carbon Dioxide Anion Gap BUN Creatinine Est Cr Clr Drug Dosing Est GFR ( Amer) Est GFR (Non-Af Amer) BUN/Creatinine Ratio Glucose POC Glucose 151 H 88 Calcium Magnesium Troponin I High Sens 08/23/21 08/23/21 08/23/21 17:00 19:54 23:08 WBC RBC Hgb Hct MCV MCH MCHC RDW Std Deviation RDW Coeff of Umair Plt Count MPV Immature Gran % (Auto) Neut % (Auto) Lymph % (Auto) [place] % (Auto) Eos % (Auto) Baso % (Auto) Neut # (Auto) Lymph # (Auto) [place] # (Auto) Eos # (Auto) Baso # (Auto) Immature Gran # (Auto) Sodium Potassium Chloride Carbon Dioxide Anion Gap BUN Creatinine Est Cr Clr Drug Dosing Est GFR ( Amer) Est GFR (Non-Af Amer) BUN/Creatinine Ratio Glucose POC Glucose 82 192 H 170 H Calcium Magnesium Troponin I High Sens 08/24/21 08/24/21 08/24/21 03:14 03:48 03:48 WBC 6.75 RBC 4.18 Hgb 12.2 Hct 36.0 MCV 86.1 MCH 29.2 MCHC 33.9 RDW Std Deviation 41.5 RDW Coeff of Umair 13.4 Plt Count 210 MPV 10.7 Immature Gran % (Auto) 0.3 Neut % (Auto) 67.2 Lymph % (Auto) 20.9 [place] % (Auto) 7.3 Eos % (Auto) 4.0 Baso % (Auto) 0.3 Neut # (Auto) 4.54 Lymph # (Auto) 1.41 [place] # (Auto) 0.49 Eos # (Auto) 0.27 Baso # (Auto) 0.02 Immature Gran # (Auto) 0.02 Sodium 136 Potassium 3.6 D Chloride 105 Carbon Dioxide 24 Anion Gap 7 BUN 7 Creatinine 0.77 Est Cr Clr Drug Dosing 74.9 Est GFR ( Amer) 96.6 Est GFR (Non-Af Amer) 83.3 BUN/Creatinine Ratio 9.1 L Glucose 210 H POC Glucose 186 H Calcium 7.6 L Magnesium 1.5 L Troponin I High Sens 8.2 D 08/24/21 08/24/21 07:33 08:46 WBC RBC Hgb Hct MCV MCH MCHC RDW Std Deviation RDW Coeff of Umair Plt Count MPV Immature Gran % (Auto) Neut % (Auto) Lymph % (Auto) [place] % (Auto) Eos % (Auto) Baso % (Auto) Neut # (Auto) Lymph # (Auto) [place] # (Auto) Eos # (Auto) Baso # (Auto) Immature Gran # (Auto) Sodium Potassium Chloride Carbon Dioxide Anion Gap BUN Creatinine Est Cr Clr Drug Dosing Est GFR ( Amer) Est GFR (Non-Af Amer) BUN/Creatinine Ratio Glucose POC Glucose 233 H Calcium Magnesium Troponin I High Sens 8.1 PG Care Time/CCT Total # of Minutes Spent Total Time Spent with Patient: Total time spent is greater than 50% in coordination of care (as documented) at patient's floor/unit and/or counseling patient: Coding Level of Care Code 92184 Subseq Hosp Care Lvl 3 Diagnoses Hypomagnesemia E83.42 Hypertension I10 Nausea vomiting and diarrhea R11.2; R19.7 Acute hypokalemia E87.6
[2021-08-24] MEDS: SUCRALFATE 1 GM TAB PO SCH ×3 (12:01→20:14)
--- NOTE | 2021-08-24 12:55 | Hospitalist Progress Note ---
Date of Service August 24, 2021 Assessment & Plan (1) Acute hypokalemia: Plan: 60 y/o female w/ PMHx of multiple prior admissions for similar symptoms, CAD s/p stents, uncontrolled IDDM2, HTN, hypothyroidism, tobacco use, and anxiety/OCD who presents w/ dizzines, nausea and LUQ abd pain most likely related to hyperglycemia and hypokalemia. Acute hypokalemia Severe, in the setting of running out of her oral potassium supplement [employer] Magnesium remains low, 1.5, additional repletion pending Potassium now within normal range at 3.6, trended for stability Patient still with loose bowels and poor appetite. Given persistent loose bowels C. difficile ordered, can try loperamide if negative. Carafate trial for nausea/epigastric discomfort Creatinine remains stable at baseline, hemodynamically stable, no leukocytosis, somewhat hyperglycemic pharmacy glycemic management following - Lisinopril continued - Cr at bl - CT abd/pelv: No acute intra-abdominal or pelvic finding. Reticulosis without diverticulitis - EKG ecg: Mild changes likely related to hypokalemia. Compared w/ 07/01/21 ecg. QTc prolongation 456->556. Mild anterior lead ST depressions. Zofran/Compazine/Phenergan deferred due to QT prolongation. Repeat EKG with nor malization of QT, Zofran as needed ordered High-sensitivity troponin 20.3, down trended to 18. Likely demand. Repeat normal 08/24. Low appetite,? Dysphagia Multiple admissions for similar with extensive workup including CT, MRCP, liver ultrasounds, celiac panel, EGD gastric emptying study wiithout significant findings other than chronic gastritis. Patient with no difficulty swallowing liquids, has been able to swallow soft foods but without much appetite Has had a difficulty swallowing hard foods and bread in the past. Was recommended for slippery diet on prior speech evaluation, resumed Patient reports she has had EGDs in the past year, which showed a normal esophagus but mild inflammation in the stomach. Normal duodenal bulb and second portion of the duodenum. History of gastritis, sucralfate (2) Hyperglycemia: Plan: - see above. - SSI + Lantus - Pharmacy glycemic following (3) Hypomagnesemia: Plan: - replete, follow labs (4) CAD (coronary artery disease): Plan: - continue home ticagrelor (5) Hypothyroidism: Plan: - continue home regimen (6) Hypertension: Plan: - soft BPs, hold home meds - improved w/ IV fluids (7) Leukocytosis: Plan: - Resolved (8) Tobacco abuse: Plan: - offered nicotine patch, declines at this time (9) Dyslipidemia: Plan: - hx of. continue home statin (10) Diabetes type 2, uncontrolled: Plan: - a1c 10.7 06/2021 - see above Adequate glycemic control today, pharmacy following for glycemic management. Appreciate adjustments. (11) Left upper quadrant pain: Plan: - reassuring CT abd/pelv. prior admissions w/ similar abd pains. this admission, consider nausea and hypokalemia as well (12) Anxiety: Plan: - per PCP notes, anxiety, depression, OCD. On fluvoxamine (13) Failure to thrive in adult: Plan: - per PCP notes, concern about ability to manage meds at home; considering personal care ome Plan: FEN/GI: DM2 ppx: sq heparin code: full dispo: med tele Admission and Anticipated Discharge Date Admission Date: August 20, 2021 Subjective Seen at bedside. Reports she feels a little more energetic, still is not very hungry with continued stomach discomfort and loose but not liquid bowel movements. C. difficile is pending, will trial symptomatic treatment as long as this is negative. Is aware her potassium is normal, magnesium remains somewhat low today. She denies chest pain/chest pressure, shortness of breath, difficulty breathing. She reports she can drink liquids without any difficulty, and does tolerate soft foods, has had some trouble with skin drier bread swallowing and again with reduced appetite. No bleeding/lightheadedness/dizziness. Reports she gets nervous and anxious about her blood sugars, and feels that 100s is very low for her. Discussed glycemic goals, and encouraged patient to have a blood sugar check if she feels symptoms of hypoglycemia but otherwise her routine checks should be sufficient. Counseling regarding insulin adjustments to her glucose levels provided Review of Systems Review of Systems: All systems reviewed & are unremarkable except as noted in Subjective Physical Exam Physical Exam: General: A&Ox3. NAD. Cooperative. HEENT: Atraumatic, normocephalic. Hearing grossly intact Pulm: Moderate air movement, clear without rales/wheezes. Symmetrical chest rise. No increase in work of breathing. No respiratory distress. Cardiac: RRR, -mrg. Radial pulses intact and symmetrical. Abdominal: Mild epigastric discomfort, no rebound. Results & Data Results & Data ([facility]) Vital Signs (Past 12 Hours) Vital Signs Temp Pulse Pulse Resp BP BP Pulse Ox 08/24/21 11:51 36.7 C 73 16 135/77 98 08/24/21 08:50 146/92 H 08/24/21 07:43 36.5 C 87 16 178/92 H 97 08/24/21 02:41 36.6 C 79 18 154/84 H 96 PG Care Time/CCT Total # of Minutes Spent Total Time Spent with Patient: Total time spent is greater than 50% in coordination of care (as documented) at patient's floor/unit and/or counseling patient: Coding Level of Care Code 39822 Subseq Hosp Care Lvl 2 Diagnoses Acute hypokalemia E87.6 Hyperglycemia R73.9 Hypomagnesemia E83.42 CAD (coronary artery disease) I25.10 Associated angina: unspecified whether angina present Coronary Disease-Associated Artery/Lesion type: [place] artery [place] vs. transplanted heart: [place] heart Hypothyroidism E03.9 Hypertension I10 Leukocytosis D72.829 Tobacco abuse Z72.0 Dyslipidemia E78.5 Diabetes type 2, uncontrolled E11.65 Left upper quadrant pain R10.12 Anxiety F41.9 Failure to thrive in adult R62.7 (1) CAD (coronary artery disease) Associated angina: unspecified whether angina present Coronary Disease- Associated Artery/Lesion type: [place] artery [place] vs. transplanted heart: [place] heart Qualified Code(s): I25.10 - Atherosclerotic heart disease of [place] coronary artery without angina pectoris
[2021-08-24] MEDS: LIDOCAINE 5% 1 PATCH TD SCH (15:01)
[2021-08-24] MEDS: fluvoxaMINE MALEATE 50 MG TAB PO SCH (20:13)
--- NOTE | 2021-08-24 22:57 | Electrocardiogram Report ---
Test Reason : Blood Pressure : / mmHG Vent. Rate : 073 BPM Atrial Rate : 073 BPM P-R Int : 154 ms QRS Dur : 070 ms QT Int : 428 ms P-R-T Axes : 040 043 -27 degrees QTc Int : 471 ms Normal sinus rhythm Low voltage QRS Nonspecific ST and T wave abnormality Abnormal ECG When compared with ECG of 23-AUG-2021 07:31, Nonspecific T wave abnormality has replaced inverted T waves in Inferior leads Nonspecific T wave abnormality has replaced inverted T waves in Lateral leads Confirmed by Jose R Flores ([id number]) on 08/24/2021 10:57:31 PM Referred By: Norberto Marroquin Confirmed By:Jose R Flores
[2021-08-25] MEDS: LEVOTHYROXINE SODIUM 88 MCG TABLET PO SCH (06:05)
[2021-08-25] MEDS: ACETAMINOPHEN 325 MG TAB PO PRN ×2 (06:05→21:14)
[2021-08-25 06:46] LABS: Albumin Level 2.8 gm/dl (3.4-5.0); BUN Creatinine Ratio 9.1 (10-20); Calcium 8.2 mg/dl (8.5-10.1); Est GFR (African American) 110.5 ml/min; Est GFR (Non-African American) 95.3 ml/min; Magnesium 1.5 mg/dl (1.7-2.4); Phosphorus 3.3 mg/dl (2.5-4.9); Potassium 3.6 mmol/L (3.5-5.1)
[2021-08-25] MEDS: PANTOprazole 40 MG TAB PO SCH (07:27)
[2021-08-25] MEDS: SUCRALFATE 1 GM TAB PO SCH ×4 (07:27→21:02)
[2021-08-25] MEDS: FAMOTIDINE 10 MG TABLET PO SCH ×2 (07:28→21:04)
[2021-08-25] MEDS ORDERED: MAGNESIUM SULFATE / D5W 1 GM/100 ML BAG IV ONE (07:30)
[2021-08-25] MEDS: lisinopril 20 MG TAB PO SCH ×2 (08:10→21:03)
[2021-08-25] MEDS: TICAGRELOR 90 MG TAB PO SCH ×2 (08:11→21:03)
[2021-08-25] MEDS: ATORVASTATIN 40 MG TAB PO SCH (08:11)
[2021-08-25] MEDS: LIDOCAINE 5% 1 PATCH TD SCH (08:12)
[2021-08-25] MEDS: MAGNESIUM OXIDE 400 MG TAB PO SCH ×2 (08:12→21:01)
[2021-08-25] MEDS: ENOXAPARIN INJ 40 MG/0.4 ML SYR SQ SCH (08:13)
[2021-08-25] MEDS: INSULIN ASPART PER UNIT SC SCH ×4 (08:51→21:08)
[2021-08-25] MEDS: INSULIN HUMAN NPH SC SCH ×2 (08:53→17:41)
--- NOTE | 2021-08-25 08:55 | Nephrology Progress Note ---
Date of Service August 25, 2021 Assessment & Plan (1) Hypomagnesemia: Plan: * Hypomagnesemia attributed to GI loss * IV Magnesium transiently improves serum levels but long acting oral supplement is required to replenish cellular stores and maintain adequate serum levels * Agree w/ 1 g IV Mg this morning. Continue MgOx po BID * Will check Mg, K in am. Suspect patient will need to continue oral supplementation at time of discharge (2) Hypokalemia: Plan: * Corrected off thiazide, PPI may have contributed * Remains on KCl and Mg supplements (3) Hypertension: Plan: * Thiazide held due to hypokalemia and hypomagnesemia * Blood pressure has been variable. Lisinopril was recently increased * If tighter blood pressure control needed, may consider stopping KCl and adding amiloride (4) Nausea vomiting and diarrhea: Plan: * Recent GI evaluation revealed gastritis. On PPI therapy Admission and Anticipated Discharge Date Admission Date: August 20, 2021 Subjective Ms. Lua was evaluated in her hospital room this morning. She reports nausea but denies emesis or diarrhea. She voiced no new medical concerns. Review of Systems Constitutional: + weakness; no fever Eyes: no problem reported Ear, Nose, Mouth, Throat: no problem reported Respiratory: no cough and no dyspnea Cardiovascular: no chest pain, no palpitations and no edema Gastrointestinal: + nausea; no abdominal pain, no vomiting and no diarrhea/loose stools Genitourinary: no dysuria and no hematuria Musculoskeletal: no back pain Integumentary: no rash Neurologic: no confusion Physical Exam Constitutional: not in distress Eyes: PERRL, conjunctivae normal, anicteric sclerae ENMT: external ear and nose normal, oropharynx normal Neck: trachea midline, no thyromegaly Respiratory: normal respiratory effort, lungs clear to auscultation Cardiovascular: RRR, no murmur, no edema Gastrointestinal (Abdomen): normal bowel sounds, soft, nontender, no hepatosplenomegaly Results & Data ([facility]) Vital Signs (Past 12 Hours) Vital Signs Temp Pulse Pulse Resp BP BP Pulse Ox 08/25/21 07:50 37.0 C 68 20 164/78 H 97 08/25/21 01:36 84 08/24/21 21:50 36.6 C 76 16 126/76 96 Laboratory Results Laboratory Tests 08/25/21 05:54 Sodium 137 Potassium 3.6 Chloride 105 Carbon Dioxide 26 BUN 6 Creatinine 0.66 Est GFR (Non-Af Amer) 95.3 Glucose 150 H Calcium 8.2 L Phosphorus 3.3 Magnesium 1.5 L Albumin 2.8 L PG Care Time/CCT Total # of Minutes Spent Total Time Spent with Patient: Total time spent is greater than 50% in coordination of care (as documented) at patient's floor/unit and/or counseling patient: Coding Level of Care Code 62926 Subseq Hosp Care Lvl 3 Diagnoses Hypomagnesemia E83.42 Hypertension I10 Nausea vomiting and diarrhea R11.2; R19.7 Hypokalemia E87.6
[2021-08-25] MEDS: DICLOFENAC SOD 1% GEL 100 GM TUBE EXT SCH ×3 (11:18→23:10)
--- NOTE | 2021-08-25 15:38 | Hospitalist Progress Note ---
Date of Service August 25, 2021 Assessment & Plan (1) Acute hypokalemia: Plan: 60 y/o female w/ PMHx of multiple prior admissions for similar symptoms, CAD s/p stents, uncontrolled IDDM2, HTN, hypothyroidism, tobacco use, and anxiety/OCD who presents w/ dizzines, nausea and LUQ abd pain most likely related to hyperglycemia and hypokalemia. Acute hypokalemia Severe, in the setting of running out of her oral potassium supplement [employer] Magnesium remains low, 1.5, additional gram IV today. Oral supplementation split into 2X 200 mg doses to minimize contribution to diarrhea Potassium normal, stable BMs improving, discomfort improving with sucralfate Creatinine remains stable at baseline, hemodynamically stable, no leukocytosis, somewhat hyperglycemic pharmacy glycemic management following - Lisinopril continued - Cr at bl - CT abd/pelv: No acute intra-abdominal or pelvic finding. Reticulosis without diverticulitis - EKG ecg: Mild changes likely related to hypokalemia. Compared w/ 07/01/21 ecg. QTc prolongation 456->556. Mild anterior lead ST depressions. Zofran/Compazine/Phenergan deferred due to QT prolongation. Repeat EKG with normalization of QT, Zofran as needed ordered High-sensitivity troponin 20.3, down trended to 18. Likely demand. Repeat normal 08/24. Low appetite,? Dysphagia Multiple admissions for similar with extensive workup including CT, MRCP, liver ultrasounds, celiac panel, EGD gastric emptying study wiithout significant findings other than chronic gastritis. Patient with no difficulty swallowing liquids, has been able to swallow soft foods but without much appetite Has had a difficulty swallowing hard foods and bread in the past. Was recommended for slippery diet on prior speech evaluation, resumed Patient reports she has had EGDs in the past year, which showed a normal esophagus but mild inflammation in the stomach. Normal duodenal bulb and second portion of the duodenum. Patient does feel significant clinical improvement today on sucralfate. We will attempt to improve p.o., if remains remained stable and able to tolerate p.o. throughout the day anticipate dispo planning. PT/OT is pending (2) Hyperglycemia: Plan: - see above. - SSI + Lantus - Pharmacy glycemic following (3) Hypomagnesemia: Plan: - replete, follow labs (4) CAD (coronary artery disease): Plan: - continue home ticagrelor (5) Hypothyroidism: Plan: - continue home regimen (6) Hypertension: Plan: - soft BPs, hold home meds - improved w/ IV fluids (7) Leukocytosis: Plan: - Resolved (8) Tobacco abuse: Plan: - offered nicotine patch, declines at this time (9) Dyslipidemia: Plan: - hx of. continue home statin (10) Diabetes type 2, uncontrolled: Plan: - a1c 10.7 06/2021 - see above Adequate glycemic control today, pharmacy following for glycemic management. Appreciate adjustments. (11) Left upper quadrant pain: Plan: - reassuring CT abd/pelv. prior admissions w/ similar abd pains. this admission, consider nausea and hypokalemia as well (12) Anxiety: Plan: - per PCP notes, anxiety, depression, OCD. On fluvoxamine (13) Failure to thrive in adult: Plan: - per PCP notes, concern about ability to manage meds at home; considering personal care ome Plan: FEN/GI: DM2 ppx: sq heparin code: full dispo: med tele Admission and Anticipated Discharge Date Admission Date: August 20, 2021 Subjective Seen the bedside this morning. No BM today, feels loose bowels are starting to improve. Still has some stomach upset nausea, but feels this is improved today compared to yesterday and did try to eat a little bit more. Thinks that sucralfate is helping. Feels slowly improving, potassium is stable but getting additional IV magnesium today. She is frustrated by her diet, notes that she has had difficulty swallowing and dry bread and hamburger and has been recommended for slippery diet in the past but that this did not appetizing to her and she tolerates many foods just fine such as white bread and watermelon which they have not been allowing her to have. Discussed that she should not have dry meats or breads, otherwise have moistened and bite-size food which she notes she tolerates well at home. If p.o. improved and continues to have stable potassium, possible dispo planning tomorrow. PT OT pending Review of Systems Review of Systems: All systems reviewed & are unremarkable except as noted in Subjective Physical Exam Physical Exam: General: A&Ox3. NAD. Cooperative. HEENT: Atraumatic, normocephalic. Hearing grossly intact Pulm: Moderate air movement, clear without rales/wheezes. Symmetrical chest rise. No increase in work of breathing. No respiratory distress. Cardiac: RRR, -mrg. Radial pulses intact and symmetrical. Abdominal: Mild epigastric discomfort, no rebound. Results & Data Results & Data ([facility]) Vital Signs (Past 12 Hours) Vital Signs Temp Pulse Pulse Resp BP BP Pulse Ox 08/25/21 15:08 36.5 C 95 H 20 139/80 97 08/25/21 12:32 36.5 C 88 20 160/99 H 99 08/25/21 09:26 82 08/25/21 07:50 37.0 C 68 20 164/78 H 97 PG Care Time/CCT Total # of Minutes Spent Total Time Spent with Patient: Total time spent is greater than 50% in coordination of care (as documented) at patient's floor/unit and/or counseling patient: Coding Level of Care Code 17551 Subseq Hosp Care Lvl 2 Diagnoses Acute hypokalemia E87.6 Hyperglycemia R73.9 Hypomagnesemia E83.42 CAD (coronary artery disease) I25.10 Coronary Disease-Associated Artery/Lesion type: [place] artery [place] vs. transplanted heart: [place] heart Associated angina: unspecified whether angina present Hypothyroidism E03.9 Hypertension I10 Leukocytosis D72.829 Tobacco abuse Z72.0 Dyslipidemia E78.5 Diabetes type 2, uncontrolled E11.65 Left upper quadrant pain R10.12 Anxiety F41.9 Failure to thrive in adult R62.7 (1) CAD (coronary artery disease) Coronary Disease-Associated Artery/Lesion type: [place] artery [place] vs. transplanted heart: [place] heart Associated angina: unspecified whether angina present Qualified Code(s): I25.10 - Atherosclerotic heart disease of [place] coronary artery without angina pectoris
[2021-08-25] MEDS: fluvoxaMINE MALEATE 50 MG TAB PO SCH (21:02)
[2021-08-26] MEDS: ONDANSETRON INJ 2 MG/ML 2 ML VIAL IV PRN (03:31)
[2021-08-26] MEDS: DICLOFENAC SOD 1% GEL 100 GM TUBE EXT SCH ×4 (05:02→23:01)
[2021-08-26] MEDS: LEVOTHYROXINE SODIUM 88 MCG TABLET PO SCH (05:32)
[2021-08-26 06:24] LABS: BUN Creatinine Ratio 10.9 (10-20); Calcium 8.2 mg/dl (8.5-10.1); Creatinine Clr Calc Pharmacy 89.9 ml/min; Est GFR (African American) 111.6 ml/min; Est GFR (Non-African American) 96.3 ml/min; Magnesium 1.3 mg/dl (1.7-2.4); Potassium 3.5 mmol/L (3.5-5.1)
[2021-08-26] MEDS: MAGNESIUM SULFATE / D5W 1 GM/100 ML BAG IV SCH ×4 (08:41→14:39)
[2021-08-26] MEDS: ENOXAPARIN INJ 40 MG/0.4 ML SYR SQ SCH (08:42)
[2021-08-26] MEDS: SUCRALFATE 1 GM TAB PO SCH ×4 (08:46→20:00)
[2021-08-26] MEDS: FAMOTIDINE 10 MG TABLET PO SCH ×2 (08:47→20:00)
[2021-08-26] MEDS: TICAGRELOR 90 MG TAB PO SCH ×2 (08:49→20:00)
[2021-08-26] MEDS: ATORVASTATIN 40 MG TAB PO SCH (08:51)
[2021-08-26] MEDS: lisinopril 20 MG TAB PO SCH ×2 (08:51→20:00)
[2021-08-26] MEDS: LIDOCAINE 5% 1 PATCH TD SCH (08:53)
[2021-08-26] MEDS ORDERED: MAGNESIUM OXIDE 400 MG TAB PO SCH ×2 (09:00)
[2021-08-26] MEDS: ACETAMINOPHEN 325 MG TAB PO PRN (09:01)
[2021-08-26] MEDS: INSULIN HUMAN NPH SC SCH ×2 (09:18→16:39)
[2021-08-26] MEDS: INSULIN ASPART PER UNIT SC SCH ×4 (09:21→20:07)
--- NOTE | 2021-08-26 09:51 | Nephrology Progress Note ---
Date of Service August 26, 2021 Assessment & Plan (1) Hypomagnesemia: Plan: * Hypomagnesemia attributed to GI loss * IV Magnesium transiently improves serum levels but long acting oral supplement is required to replenish cellular stores and maintain adequate serum levels * Agree w/ 4 g IV Mg this morning. Will increase MgOx po to TID * Will check Mg, K in am. Suspect patient will need to continue oral supplementation at time of discharge (2) Hypokalemia: Plan: * Corrected off thiazide, PPI may have contributed * Remains on KCl and Mg supplements (3) Hypertension: Plan: * Thiazide held due to hypokalemia and hypomagnesemia * Blood pressure has been variable. Lisinopril was recently increased * If tighter blood pressure control needed, may consider stopping KCl and adding amiloride (4) Nausea vomiting and diarrhea: Plan: * Recent GI evaluation revealed gastritis. On PPI therapy Admission and Anticipated Discharge Date Admission Date: August 20, 2021 Subjective Ms. Lua was evaluated in her hospital room this morning. She denies emesis or diarrhea. She is tolerating oral Mg and KCL supplements without GI upset. Ms. Lau voiced no new medical concerns. Review of Systems Constitutional: + weakness; no fever Eyes: no problem reported Ear, Nose, Mouth, Throat: no problem reported Respiratory: no cough and no dyspnea Cardiovascular: no chest pain, no palpitations and no edema Gastrointestinal: + nausea; no abdominal pain, no vomiting and no diarrhea/loose stools Genitourinary: no dysuria and no hematuria Musculoskeletal: no back pain Integumentary: no rash Neurologic: no confusion Physical Exam Constitutional: not in distress Eyes: PERRL, conjunctivae normal, anicteric sclerae ENMT: external ear and nose normal, oropharynx normal Neck: trachea midline, no thyromegaly Respiratory: normal respiratory effort, lungs clear to auscultation Cardiovascular: RRR, no murmur, no edema Gastrointestinal (Abdomen): normal bowel sounds, soft, nontender, no hepatosplenomegaly Results & Data ([facility]) Vital Signs (Past 12 Hours) Vital Signs Temp Pulse Pulse Resp BP Pulse Ox Pulse Ox 08/26/21 07:21 88 08/26/21 06:38 36.8 C 92 H 18 142/91 H 98 08/26/21 03:42 36.7 C 89 20 129/73 98 08/26/21 00:00 97 08/25/21 22:22 36.5 C 67 20 154/81 H 97 08/25/21 22:14 72 Laboratory Results Laboratory Tests 08/26/21 05:46 Sodium 136 Potassium 3.5 Chloride 104 Carbon Dioxide 26 BUN 7 Creatinine 0.64 Calcium 8.2 L Magnesium 1.3 L PG Care Time/CCT Total # of Minutes Spent Total Time Spent with Patient: Total time spent is greater than 50% in coordination of care (as documented) at patient's floor/unit and/or counseling patient: Coding Level of Care Code 40338 Subseq Hosp Care Lvl 3 Diagnoses Hypomagnesemia E83.42 Hypokalemia E87.6 Hypertension I10 Nausea vomiting and diarrhea R11.2; R19.7
[2021-08-26] MEDS: PANTOprazole 40 MG TAB PO SCH (11:44)
--- NOTE | 2021-08-26 12:30 | Hospitalist Progress Note ---
Date of Service August 26, 2021 Assessment & Plan (1) Acute hypokalemia: Plan: 60 y/o female w/ PMHx of multiple prior admissions for similar symptoms, CAD s/p stents, uncontrolled IDDM2, HTN, hypothyroidism, tobacco use, and anxiety/OCD who presents w/ dizzines, nausea and LUQ abd pain most likely related to hyperglycemia and hypokalemia. Acute hypokalemia Severe, in the setting of running out of her oral potassium supplement [employer] Magnesium remains 1.3. Additional repletion ordered. If continue to remain low despite improvement consider urine magnesium measurement and shifted to Slow-Mag to minimize urinary excretion effect. Potassium remains stable Rate improved, nominal discomfort and nausea still present, but continuing to improve with sucralfate and morning dose of Zofran. Creatinine remains stable at baseline, hemodynamically stable, no leukocytosis, somewhat hyperglycemic pharmacy glycemic management following - Lisinopril continued - Cr at bl - CT abd/pelv: No acute intra-abdominal or pelvic finding. Reticulosis without diverticulitis - EKG ecg: Mild changes likely related to hypokalemia. Compared w/ 07/01/21 ecg. QTc prolongation 456->556. Mild anterior lead ST depressions. Zofran/Compazine/Phenergan deferred due to QT prolongation. Repeat EKG with normalization of QT, Zofran as needed ordered High-sensitivity troponin 20.3, down trended to 18. Likely demand. Repeat normal 08/24. Low appetite,? Dysphagia Multiple admissions for similar with extensive workup including CT, MRCP, liver ultrasounds, celiac panel, EGD gastric emptying study wiithout significant findings other than chronic gastritis. Patient with no difficulty swallowing liquids, has been able to swallow soft foods but without much appetite Has had a difficulty swallowing hard foods and bread in the past. Was recommended for slippery diet on prior speech evaluation, resumed Patient reports she has had EGDs in the past year, which showed a normal esophagus but mild inflammation in the stomach. Normal duodenal bulb and second portion of the duodenum. Continues to improve on sucralfate. PT/OT pending this morning, patient making arrangements in anticipation of returning home. Was considering personal-residential. She is high readmission risk and has had difficulty with medications, has family arranging her home and medications in anticipation of potentially being able to return in the next day or so (2) Hyperglycemia: Plan: - see above. - SSI + Lantus - Pharmacy glycemic following (3) Hypomagnesemia: Plan: - replete, follow labs (4) CAD (coronary artery disease): Plan: - continue home ticagrelor (5) Hypothyroidism: Plan: - continue home regimen (6) Hypertension: Plan: - soft BPs, hold home meds - improved w/ IV fluids (7) Leukocytosis: Plan: - Resolved (8) Tobacco abuse: Plan: - offered nicotine patch, declines at this time (9) Dyslipidemia: Plan: - hx of. continue home statin (10) Diabetes type 2, uncontrolled: Plan: - a1c 10.7 06/2021 - see above Adequate glycemic control today, pharmacy following for glycemic management. Appreciate adjustments. (11) Left upper quadrant pain: Plan: - reassuring CT abd/pelv. prior admissions w/ similar abd pains. this admission, consider nausea and hypokalemia as well (12) Anxiety: Plan: - per PCP notes, anxiety, depression, OCD. On fluvoxamine (13) Failure to thrive in adult: Plan: - per PCP notes, concern about ability to manage meds at home; considering personal care ome Plan: FEN/GI: DM2 ppx: sq heparin code: full dispo: med tele Admission and Anticipated Discharge Date Admission Date: August 20, 2021 Subjective To the bedside. Appetite is improving, did well and was able to swallow. Was able to eat stuffed shells without difficulty. No BM today, diarrhea seems to be improving/improved. Does continue to have some stomach upset and nausea, but this is better controlled with Zofran this morning and her stomach pain overall seems to be continuing to improve on sucralfate. Patient is having home arranges made in anticipation of potentially being able to return tomorrow. Pending PT/OT at time of bedside visit. Physical Exam Physical Exam: General: A&Ox3. NAD. Cooperative. HEENT: Atraumatic, normocephalic. Hearing grossly intact Pulm: Moderate air movement, clear without rales/wheezes. Symmetrical chest rise. No increase in work of breathing. No respiratory distress. Cardiac: RRR, -mrg. Radial pulses intact and symmetrical. Abdominal: Mild epigastric discomfort, no rebound. Results & Data Results & Data ([facility]) Vital Signs (Past 12 Hours) Vital Signs Temp Pulse Pulse Resp BP Pulse Ox 08/26/21 07:21 88 08/26/21 06:38 36.8 C 92 H 18 142/91 H 98 08/26/21 03:42 36.7 C 89 20 129/73 98 PG Care Time/CCT Total # of Minutes Spent Total Time Spent with Patient: Total time spent is greater than 50% in coordination of care (as documented) at patient's floor/unit and/or counseling patient: Coding Level of Care Code 77564 Subseq Hosp Care Lvl 2 Diagnoses Acute hypokalemia E87.6 Hyperglycemia R73.9 Hypomagnesemia E83.42 CAD (coronary artery disease) I25.10 Coronary Disease-Associated Artery/Lesion type: [place] artery [place] vs. transplanted heart: [place] heart Associated angina: unspecified whether angina present Hypothyroidism E03.9 Hypertension I10 Leukocytosis D72.829 Tobacco abuse Z72.0 Dyslipidemia E78.5 Diabetes type 2, uncontrolled E11.65 Left upper quadrant pain R10.12 Anxiety F41.9 Failure to thrive in adult R62.7 (1) CAD (coronary artery disease) Coronary Disease-Associated Artery/Lesion type: [place] artery [place] vs. transplanted heart: [place] heart Associated angina: unspecified whether angina present Qualified Code(s): I25.10 - Atherosclerotic heart disease of [place] coronary artery without angina pectoris
[2021-08-26] MEDS: MAGNESIUM OXIDE 400 MG TAB PO SCH ×2 (14:36→20:00)
[2021-08-26] MEDS: fluvoxaMINE MALEATE 50 MG TAB PO SCH (20:00)
[2021-08-27] MEDS: DICLOFENAC SOD 1% GEL 100 GM TUBE EXT SCH ×5 (05:40→23:27)
[2021-08-27] MEDS: LEVOTHYROXINE SODIUM 88 MCG TABLET PO SCH (05:44)
[2021-08-27] MEDS: ACETAMINOPHEN 325 MG TAB PO PRN ×3 (07:58→23:32)
[2021-08-27] MEDS: SUCRALFATE 1 GM TAB PO SCH ×4 (08:01→20:57)
--- NOTE | 2021-08-27 08:33 | Nephrology Progress Note ---
Date of Service August 27, 2021 Assessment & Plan (1) Hypomagnesemia: Plan: * Hypomagnesemia attributed to GI loss * Serum Mg is acceptable this am. Stop IV supplement. Will change to Mag-Ox 400 mg po daily * Will check Mg, K in am. Suspect patient will need to continue oral supplementation at time of discharge (2) Hypokalemia: Plan: * Corrected off thiazide, PPI may have contributed * KCl has been stopped. Will reduce Mg supplement (3) Hypertension: Plan: * Thiazide held due to hypokalemia and hypomagnesemia * Blood pressure is acceptable. No change to current medical regimen (4) Nausea vomiting and diarrhea: Plan: * Recent GI evaluation revealed gastritis. On PPI therapy Admission and Anticipated Discharge Date Admission Date: August 20, 2021 Subjective Ms. Lua was evaluated in her hospital room this morning. She c/o back discomfort but staff psychiatrist reports that she declined her lidoderm patch. Ms. Lua reports nausea overnight but no emesis Review of Systems Constitutional: + weakness; no fever Eyes: no problem reported Ear, Nose, Mouth, Throat: no problem reported Respiratory: no cough and no dyspnea Cardiovascular: no chest pain, no palpitations and no edema Gastrointestinal: + nausea; no abdominal pain, no vomiting and no diarrhea/loose stools Genitourinary: no dysuria and no hematuria Musculoskeletal: + back pain Integumentary: no rash Neurologic: no confusion Physical Exam Constitutional: not in distress Eyes: PERRL, conjunctivae normal, anicteric sclerae ENMT: external ear and nose normal, oropharynx normal Neck: trachea midline, no thyromegaly Respiratory: normal respiratory effort, lungs clear to auscultation Cardiovascular: RRR, no murmur, no edema Gastrointestinal (Abdomen): normal bowel sounds, soft, nontender, no hepatosplenomegaly Results & Data ([facility]) Vital Signs (Past 12 Hours) Vital Signs Temp Pulse Pulse Resp BP BP Pulse Ox 08/27/21 06:28 36.6 C 91 H 20 129/67 96 08/27/21 06:10 86 08/27/21 02:23 36.7 C 93 H 18 109/64 95 08/27/21 00:42 65 08/27/21 00:00 08/26/21 22:50 36.6 C 65 20 121/69 98 Pulse Ox 08/27/21 06:28 08/27/21 06:10 08/27/21 02:23 08/27/21 00:42 08/27/21 00:00 97 08/26/21 22:50 Laboratory Results Laboratory Tests 08/27/21 08:02 Sodium 137 Potassium 4.1 Chloride 102 Carbon Dioxide 28 BUN 9 Creatinine 0.79 Est GFR (Non-Af Amer) 80.8 Calcium 8.6 Magnesium 1.7 PG Care Time/CCT Total # of Minutes Spent Total Time Spent with Patient: Total time spent is greater than 50% in coordination of care (as documented) at patient's floor/unit and/or counseling patient: Coding Level of Care Code 97784 Subseq Hosp Care Lvl 3 Diagnoses Hypomagnesemia E83.42 Hypokalemia E87.6 Hypertension I10 Nausea vomiting and diarrhea R11.2; R19.7
[2021-08-27 08:53] LABS: BUN Creatinine Ratio 11.4 (10-20); Calcium 8.6 mg/dl (8.5-10.1); Creatinine Clr Calc Pharmacy 73.3 ml/min; Est GFR (African American) 93.6 ml/min; Est GFR (Non-African American) 80.8 ml/min; Magnesium 1.7 mg/dl (1.7-2.4); Potassium 4.1 mmol/L (3.5-5.1)
[2021-08-27] MEDS: INSULIN ASPART PER UNIT SC SCH ×4 (09:34→20:56)
[2021-08-27] MEDS: INSULIN HUMAN NPH SC SCH (09:37)
[2021-08-27] MEDS: ATORVASTATIN 40 MG TAB PO SCH (09:38)
[2021-08-27] MEDS: ENOXAPARIN INJ 40 MG/0.4 ML SYR SQ SCH (09:39)
[2021-08-27] MEDS: FAMOTIDINE 10 MG TABLET PO SCH ×2 (09:40→20:58)
[2021-08-27] MEDS: LIDOCAINE 5% 1 PATCH TD SCH (09:40)
[2021-08-27] MEDS: lisinopril 20 MG TAB PO SCH ×2 (09:41→20:59)
[2021-08-27] MEDS: MAGNESIUM OXIDE 400 MG TAB PO SCH (09:42)
[2021-08-27] MEDS: TICAGRELOR 90 MG TAB PO SCH ×2 (09:42→20:58)
[2021-08-27] MEDS: PANTOprazole 40 MG TAB PO SCH (09:42)
--- NOTE | 2021-08-27 09:55 | Pharmacy Report ---
Pharmacy Glycemic Short Note 2 - Date of Service August 27, 2021 - Glycemic Short BSG Results (Last 24 hours): 08/26/21 08/26/21 08/26/21 11:40 16:38 20:04 Glucose POC Glucose 232 H 202 H 222 H 08/26/21 08/27/21 08/27/21 22:55 02:29 07:53 Glucose POC Glucose 142 H 229 H 221 H 08/27/21 08:02 Glucose 232 H POC Glucose OUTPATIENT ANTIDIABETIC REGIMEN: * U-500 insulin initiated by tool and die technician in July of this year * U-500 insulin 30 units SC qAM, 20 units SC qPM (takes at 1600 and 0000) * Farxiga 10 mg PO daily * HbA1c = 10.7% (07/02/21) ASSESSMENT: 08/27: * Persistent hyperglycemia. BSGs from yesterday: 233, 232, 202, 142 mg/dL. * Patient received 66 units of insulin on 08/26 -> NPH 12 units with breakfast- 10 units with dinner + 44 units novolog * Will increase basal insulin by ~10%. Conservative change per patient is fearful of hypoglycemia and has refused doses on previous days. 08/24: * Patient received 29 units of insulin yesterday, 15 basal, 24 bolus, BSG dr opped to 82mg/dl prior to dinner and patient refused NPH at that time, which resulted in higher BSGs at bedtime (192mg/dl) and this AM (233mg/dl) * Reduced AM NPH to prevent lower BSG at dinnertime, continue dinner dose, as it would have been appropriate if patient had not refused to take it. * No further changes at this time. * Will continue to try to keep BSG > 100mg/dl as patient is fearful of hyp oglycemia. * Note, patient w/ severe chest pain this AM. 08/23: * Yolanda received a total of 22 units of insulin yesterday (20 units basal + 2 units bolus). BSGs well controlled: [phone] mg/dL. * Appear to have some nausea yesterday and only ate tiny amount for dinner. Zofran ordered once QTc confirmed to not be prolonged. * Fasting BSG well controlled at 134 mg/dL this AM. Appetite appears better with 40 g of CHO for breakfast. * Will schedule NPH doses today rather than scaling them. Aware patient is fearful of hypoglycemia. If necessary, will loosen Novolog today. 08/22: * BSGs well-controlled yesterday, ranging 87-156 mg/dL w/ fasting BSG today of 118 mg/dL * Of note, patient is extremely fearful of hypoglycemia - will loosen insulin regimen today in light of 87 mg/dL at dinnertime yesterday * Received 65 units of insulin (30 units of NPH and 35 units of Novolog) * Persistent hypokalemia despite significant PO/IV repletion 08/21: * LH is a 60 year old female who presented to ED last evening with chief complaint of dizziness * Potassium of 2 mmol/L at that time, has since improved to 2.8 mmol/L * Repleted with multiple doses of supplemental KCl and IV maintenance fluids with KCl * BSG > 300 mg/dL on presentation, corrected with IV fluids * Will use NPH insulin in lieu of U-500 insulin for now PLAN FOR INPATIENT GLYCEMIC CONTROL: * Hold outpatient diabetes medications * Basal insulin - increase * NPH 13 units SC with breakfast * NPH 11 units SC with dinner * Bolus insulin * NovoLog per scale ACHS or Q6hrs while NPO * Goal Range: Low 110 mg/dL - High 140 mg/dL * Correction Factor: 15 mg/dL/unit * Nutritional / Prandial insulin per carb ratio of 1 unit per 5 grams CHO consumed
--- NOTE | 2021-08-27 10:27 | Hospitalist Progress Note ---
Date of Service August 27, 2021 Assessment & Plan (1) Acute hypokalemia: Plan: 60 y/o female w/ PMHx of multiple prior admissions for similar symptoms, CAD s/p stents, uncontrolled IDDM2, HTN, hypothyroidism, tobacco use, and anxiety/OCD who presents w/ dizzines, nausea and LUQ abd pain most likely related to hyperglycemia and hypokalemia. Acute hypokalemia, hypomagnesemia Severe, in the setting of running out of her oral potassium supplement [employer] Required repeated repletion, then returned to normal and stabilized Creatinine remains stable at baseline, hemodynamically stable, no leukocytosis, somewhat hyperglycemic pharmacy glycemic management following - No addition IV mag today, dose --> MgOx 400mg PO daily - Lisinopril continued - Cr at bl - CT abd/pelv: No acute intra-abdominal or pelvic finding. Reticulosis without diverticulitis - EKG ecg: Mild changes likely related to hypokalemia. Compared w/ 07/01/21 ecg. QTc prolongation 456->556. Mild anterior lead ST depressions. Zofran/Compazine/Phenergan deferred due to QT prolongation. Repeat EKG with normalization of QT, Zofran as needed ordered High-sensitivity troponin 20.3, down trended to 18. Likely demand. Repeat normal 08/24. Low appetite, epigastric discomfort. Improving, Multiple admissions for similar with extensive workup including CT, MRCP, liver ultrasounds, celiac panel, EGD gastric emptying study wiithout significant findings other than chronic gastritis. Patient with no difficulty swallowing liquids, has been able to swallow soft foods without difficulty Patient reports she has had EGDs in the past year, which showed a normal esophagus but mild inflammation in the stomach. Normal duodenal bulb and second portion of the duodenum. Continues to improve clinically on sucralfate. Can continue 1mo with outpatient follow-up. Continue protonix, pepcid Dispo planning Patient high risk to follow-up, and has had difficulty managing medications prior CM following, support services being facilitated w Chad - PT/OT eval rec return home - Following for Mg/K stability on oral transition today, CM notified for dispo planning (2) Hyperglycemia: Plan: - see above. - SSI + Lantus - Pharmacy glycemic following (3) Hypomagnesemia: Plan: - replete, follow labs (4) CAD (coronary artery disease): Plan: - continue home ticagrelor (5) Hypothyroidism: Plan: - continue home regimen (6) Hypertension: Plan: - soft BPs, hold home meds - improved w/ IV fluids (7) Leukocytosis: Plan: - Resolved (8) Tobacco abuse: Plan: - offered nicotine patch, declines at this time (9) Dyslipidemia: Plan: - hx of. continue home statin (10) Diabetes type 2, uncontrolled: Plan: - a1c 10.7 06/2021 - see above - Fasting BSG elevated as PO improving, pharmacy following for glycemic management. Appreciate adjustments. (11) Left upper quadrant pain: Plan: - reassuring CT abd/pelv. prior admissions w/ similar abd pains. this admission, consider nausea and hypokalemia as well (12) Anxiety: Plan: - per PCP notes, anxiety, depression, OCD. On fluvoxamine (13) Failure to thrive in adult: Plan: - per PCP notes, concern about ability to manage meds at home; considering personal care ome Plan: FEN/GI: DM2 ppx: sq heparin code: full dispo: med tele Admission and Anticipated Discharge Date Admission Date: August 20, 2021 Subjective Seen at bedside this morning. She reports that she has some diffuse back pain which she would normally use a heating pad for at home. Otherwise without pain. No lightheadedness, dizziness, chest pain, difficulty breathing. Appetite has remained stable, no vomiting. Carafate continued, tolerating well. Ambulated well with PT, patient feels overall weak but without focal weakness. Is worried about returning home, is not sure if she would need physical therapy or not. When offered to consider alternative placement or care homes, patient reports that she would probably just want to return home but is nervous to do so. Simpler services being arranged to assist with patient follow-up Review of Systems Review of Systems: All systems reviewed & are unremarkable except as noted in Subjective Physical Exam 2 Physical Exam: General: A&Ox3. NAD. Cooperative. HEENT: Atraumatic, normocephalic. Hearing grossly intact Pulm: Moderate air movement, clear without rales/wheezes. Symmetrical chest rise. No increase in work of breathing. No respiratory distress. Cardiac: RRR, -mrg. Radial pulses intact and symmetrical. Abdominal: Minimal epigastric tenderness today, soft, no rebound. Results & Data Results & Data ([facility]) Vital Signs (Past 12 Hours) Vital Signs Temp Pulse Pulse Resp BP BP Pulse Ox 08/27/21 06:28 36.6 C 91 H 20 129/67 96 08/27/21 06:10 86 08/27/21 02:23 36.7 C 93 H 18 109/64 95 08/27/21 00:42 65 08/27/21 00:00 08/26/21 22:50 36.6 C 65 20 121/69 98 Pulse Ox 08/27/21 06:28 08/27/21 06:10 08/27/21 02:23 08/27/21 00:42 08/27/21 00:00 97 08/26/21 22:50 PG Care Time/CCT Total # of Minutes Spent Total Time Spent with Patient: Total time spent is greater than 50% in coordination of care (as documented) at patient's floor/unit and/or counseling patient: Coding Level of Care Code 24250 Subseq Hosp Care Lvl 1 Diagnoses Acute hypokalemia E87.6 Hyperglycemia R73.9 Hypomagnesemia E83.42 CAD (coronary artery disease) I25.10 Coronary Disease-Associated Artery/Lesion type: [place] artery [place] vs. transplanted heart: [place] heart Associated angina: unspecified whether angina present Hypothyroidism E03.9 Hypertension I10 Leukocytosis D72.829 Tobacco abuse Z72.0 Dyslipidemia E78.5 Diabetes type 2, uncontrolled E11.65 Left upper quadrant pain R10.12 Anxiety F41.9 Failure to thrive in adult R62.7 (1) CAD (coronary artery disease) Coronary Disease-Associated Artery/Lesion type: [place] artery [place] vs. transplanted heart: [place] heart Associated angina: unspecified whether angina present Qualified Code(s): I25.10 - Atherosclerotic heart disease of [place] coronary artery without angina pectoris
[2021-08-27] MEDS: ONDANSETRON INJ 2 MG/ML 2 ML VIAL IV PRN (12:25)
[2021-08-27] MEDS ORDERED: INSULIN HUMAN NPH SC SCH (16:30)
[2021-08-27] MEDS: fluvoxaMINE MALEATE 50 MG TAB PO SCH (20:59)
[2021-08-28] MEDS: DICLOFENAC SOD 1% GEL 100 GM TUBE EXT SCH ×3 (05:06→17:39)
[2021-08-28] MEDS: LEVOTHYROXINE SODIUM 88 MCG TABLET PO SCH (05:32)
[2021-08-28 06:27] LABS: BUN Creatinine Ratio 12.9 (10-20); Calcium 8.2 mg/dl (8.5-10.1); Creatinine Clr Calc Pharmacy 68.2 ml/min; Est GFR (African American) 85.7 ml/min; Magnesium 1.4 mg/dl (1.7-2.4); Potassium 3.9 mmol/L (3.5-5.1)
[2021-08-28] MEDS: SUCRALFATE 1 GM TAB PO SCH ×3 (07:30→16:40)
[2021-08-28] MEDS: FAMOTIDINE 10 MG TABLET PO SCH (07:30)
[2021-08-28] MEDS: PANTOprazole 40 MG TAB PO SCH (07:30)
[2021-08-28] MEDS: ONDANSETRON INJ 2 MG/ML 2 ML VIAL IV PRN (07:33)
[2021-08-28] MEDS: lisinopril 20 MG TAB PO SCH (08:06)
[2021-08-28] MEDS: TICAGRELOR 90 MG TAB PO SCH (08:06)
[2021-08-28] MEDS: ATORVASTATIN 40 MG TAB PO SCH (08:06)
[2021-08-28] MEDS: LIDOCAINE 5% 1 PATCH TD SCH (08:07)
[2021-08-28] MEDS: ENOXAPARIN INJ 40 MG/0.4 ML SYR SQ SCH (08:07)
[2021-08-28] MEDS: ACETAMINOPHEN 325 MG TAB PO PRN (08:11)
--- NOTE | 2021-08-28 08:28 | Nephrology Progress Note ---
Date of Service August 28, 2021 Assessment & Plan (1) Hypomagnesemia: Plan: * Hypomagnesemia attributed to GI loss * Serum Mg is low normal. Serum potassium has corrected * Continue Mag-Ox 400 mg 400 mg po BID * No further Nephrology evaluation indicated at this time. Will sign off. Please call if further assistance is needed (2) Hypokalemia: Plan: * Corrected off thiazide, PPI may have contributed * KCl has been stopped. Continue Magnesium supplement (3) Hypertension: Plan: * Thiazide held due to hypokalemia and hypomagnesemia * Blood pressure is acceptable. No change to current medical regimen (4) Nausea vomiting and diarrhea: Plan: * Recent GI evaluation revealed gastritis. On PPI therapy Admission and Anticipated Discharge Date Admission Date: August 20, 2021 Subjective Ms. Lua was evaluated in her hospital room this morning. She c/o back discomfort and is using a heating pad. She reports that she is tolerating her Mg supplement without GI upset. She denies N/V/D and had a formed BM this am Review of Systems Constitutional: + weakness; no fever Eyes: no problem reported Ear, Nose, Mouth, Throat: no problem reported Respiratory: no cough and no dyspnea Cardiovascular: no chest pain, no palpitations and no edema Gastrointestinal: no abdominal pain and no diarrhea/loose stools Genitourinary: no dysuria and no hematuria Musculoskeletal: + back pain Integumentary: no rash Neurologic: no confusion Physical Exam Constitutional: not in distress Eyes: PERRL, conjunctivae normal, anicteric sclerae ENMT: external ear and nose normal, oropharynx normal Neck: trachea midline, no thyromegaly Respiratory: normal respiratory effort, lungs clear to auscultation Cardiovascular: RRR, no murmur, no edema Gastrointestinal (Abdomen): normal bowel sounds, soft, nontender, no hepatosplenomegaly Results & Data ([facility]) Vital Signs (Past 12 Hours) Vital Signs Temp Pulse Pulse Resp BP BP Pulse Ox 08/28/21 07:39 36.4 C 77 16 181/95 H 97 08/28/21 07:19 83 08/28/21 04:30 36.8 C 77 20 169/92 H 92 08/28/21 00:00 08/27/21 23:48 36.7 C 88 20 132/73 97 08/27/21 22:16 80 Pulse Ox 08/28/21 07:39 08/28/21 07:19 08/28/21 04:30 08/28/21 00:00 97 08/27/21 23:48 08/27/21 22:16 Laboratory Results Laboratory Tests 08/28/21 05:43 Sodium 138 Potassium 3.9 Chloride 103 Carbon Dioxide 30 BUN 11 Creatinine 0.85 Glucose 203 H Calcium 8.2 L Magnesium 1.4 L PG Care Time/CCT Total # of Minutes Spent Total Time Spent with Patient: Total time spent is greater than 50% in coordination of care (as documented) at patient's floor/unit and/or counseling patient: Coding Level of Care Code 31581 Subseq Hosp Care Lvl 3 Diagnoses Hypomagnesemia E83.42 Hypokalemia E87.6 Hypertension I10 Nausea vomiting and diarrhea R11.2; R19.7
[2021-08-28] MEDS ORDERED: MAGNESIUM OXIDE 400 MG TAB PO SCH ×2 (09:00→21:00)
[2021-08-28] MEDS: INSULIN ASPART PER UNIT SC SCH ×3 (09:01→17:35)
[2021-08-28] MEDS: INSULIN HUMAN NPH SC SCH (09:02)
--- NOTE | 2021-08-28 12:58 | Discharge Summary ---
Date of Service August 28, 2021 Admission HPI Per Admitting Provider 60 y/o female w/ PMHx of multiple prior admissions for similar symptoms, CAD s/p stents, uncontrolled IDDM2, HTN, hypothyroidism, tobacco use, and anxiety/OCD who presents w/ 2+ days of room-spinning dizziness, LUQ abd pain and nausea w/ 2 episodes of emesis (food). She denies diarrhea. Currently, she is feeling somewhat better. still has headache and LUQ pain. intermittently sharp. some nausea. room spinning dizziness worse w/ movement. denies hx of vertigo. No cp, f/c, urinary sxs constipation. She had been prescribed K supplementation by an outside hospital but has not been taking since the prescription ran out. Denies fever, chills, chest pain, SOB, URI, or urinary symptoms. Her diabetes is very poorly controlled (A1c 10.7 07/01/21.) and her java technical manager had referred patient to the pharmacist for additional management. Most recent pharmacy phone visit was on 09/07, noting home BSGs [id number]. Current regimen: Farxiga 10mg daily and Humulin R U-500 (covers both basal and bolus) 30u at 4PM and 20u at m idnight. No additional insulin besides this. Patient states she took her home meds today. She is a current 1/2 PPD smoker, but states she is motivated to quit tobacco use. ED course: Slightly soft BP 90s/50s. IV Mg and K repletion. 40meq PO KCl. Nss 1L. IV tylenol. Principal Diagnosis Hypokalemia, hypomagnesemia Discharge Exam General: A&Ox3. NAD. Cooperative. HEENT: Atraumatic, normocephalic. Hearing grossly intact Pulm: Clear without rales/wheezes. Symmetrical chest rise. No increase in work of breathing. No respiratory distress. Cardiac: RRR, -mrg. Radial pulses intact and symmetrical. Abdominal: Epigastrium nontender, soft, no rebound. Discharge Data Allergies Allergy/AdvReac Type Severity Reaction Status Date / Time dulaglutide [From Trulicity] AdvReac Intermediate stomach Verified 08/20/21 19:09 pain albiglutide [From [place]] AdvReac Unknown Unknown Verified 08/20/21 19:09 Consultations 08/20/21 21:07 ED Decision to Admit Stat 08/21/21 13:41 Consult Nephrology Routine Ordered Studies 08/20/21 19:44 CT abd pelvis wo con Urgent Hospital Course (1) Acute hypokalemia: 60 y/o female w/ PMHx of multiple prior admissions for similar symptoms, CAD s/p stents, uncontrolled IDDM2, HTN, hypothyroidism, tobacco use, and anxiety/OCD who presents w/ dizzines, nausea and LUQ abd pain most likely related to hyperglycemia and hypokalemia. To do as outpatient: 1. Follow-up with PCP, repeat BMP with magnesium within 1 week 2. Patient received several days of potassium repletion, this stabilized and was normal without p.o. repletion but with addition of lisinopril for 48 hours 3. Magnesium turned to normal repletion, drifted to the low end of normal. Oral dose was adjusted, continue mag oxide 40 mg twice daily 4. Continue lisinopril 20 mg twice daily. Acute hypokalemia, hypomagnesemia Severe, in the setting of running out of her oral magnesium supplement [employer] Required repeated repletion, then returned to normal and stabilized Creatinine remains stable at baseline, hemodynamically stable, no leukocytosis, somewhat hyperglycemic pharmacy glycemic management following -Mag-Ox adjusted to 400 mg p.o. twice daily on discharge -Continue lisinopril - Cr at bl - CT abd/pelv: No acute intra-abdominal or pelvic finding. Reticulosis without diverticulitis - EKG ecg: Mild changes likely related to hypokalemia. Compared w/ 07/01/21 ecg. QTc prolongation 456->556. Mild anterior lead ST depressions. Zofran/Compazine/Phenergan deferred due to QT prolongation. Repeat EKG with normalization of QT, Zofran as needed ordered High-sensitivity troponin 20.3, down trended to 18. Likely demand. Repeat normal 08/24. Low appetite, epigastric discomfort. Improving, DDx includes both diabetic gastroparesis and acute on chronic gastritis, patient did improve with sucralfate suggesting exacerbation of gastritis Multiple admissions for similar with extensive workup including CT, MRCP, liver ultrasounds, celiac panel, EGD gastric emptying study without significant findings other than chronic gastritis. Patient with no difficulty swallowing liquids, has been able to swallow soft foods without difficulty Patient reports she has had EGDs in the past year, which showed a normal esophagus but mild inflammation in the stomach. Normal duodenal bulb and second portion of the duodenum. Continues to improve clinically on sucralfate. Can continue 1mo with outp atient follow-up. Continue protonix, pepcid Dispo planning Patient high risk to follow-up, and has had difficulty managing medications prior CM following, support services being facilitated w Chad. (2) Hyperglycemia: - see above. - SSI + Lantus - Pharmacy glycemic following (3) Hypomagnesemia: - replete, follow labs (4) CAD (coronary artery disease): - continue home ticagrelor (5) Hypothyroidism: - continue home regimen (6) Hypertension: - soft BPs, hold home meds - improved w/ IV fluids (7) Leukocytosis: - Resolved (8) Tobacco abuse: - offered nicotine patch, declines at this time (9) Dyslipidemia: - hx of. continue home statin (10) Diabetes type 2, uncontrolled: - a1c 10.7 06/2021 - see above - Fasting BSG elevated as PO improving, pharmacy following for glycemic management. Appreciate adjustments. (11) Left upper quadrant pain: - reassuring CT abd/pelv. prior admissions w/ similar abd pains. this admission, consider nausea and hypokalemia as well (12) Anxiety: - per PCP notes, anxiety, depression, OCD. On fluvoxamine (13) Failure to thrive in adult: - per PCP notes, concern about ability to manage meds at home; considering personal care ome FEN/GI: DM2 ppx: sq heparin code: full dispo: med tele Total Time Total Time Spent Total Time Spent (In Minutes): Time spend day of discharge 40 minutes including direct patient care, documentation, review of labs and images, and coordination of care. Discharge Plan Discharge Items Patient Disposition: Home - Self-Care Reason For Visit: HYPOKALEMIA 2.0, HYPERGLYCEMIA Discharge Diagnosis: Hypokalemia, hyperglycemia Activity: Resume your previous activity Non-emergency contact: Primary Care Provider Call non-emergency contact if: you have any medication questions, your symptoms worsen and your pain is not controlled Follow-up/Referrals: Omer Marroquin MD [Primary Care Provider] - 09/03/21 3:00 pm Diet: Carb Consistent or DM2 Addtl Attending Provider Instructions: You are seen in the hospital for severe hypokalemia with hypomagnesemia (low potassium and low magnesium) in the setting of running out of of your home medications. You were treated with aggressive potassium repletion which normalized and then remained normal. You were also given magnesium supplementation which gradually improved to the normallow normal range. You were discharged to continue magnesium by mouth twice daily as below on discharge, your potassium remained stable without additional supplementation once your magnesium was treated so additional potassium was not prescribed, however you should have repeat blood work within 1 week. Please continue to take magnesium oxide 400 mg by mouth twice daily. You have been prescribed a medication, lisinopril. This is a blood pressure medicine that can also raise potassium. Please continue to take lisinopril 20 mg p.o. twice daily. A follow-up appoint is being scheduled for you with your primary care physician. You should have a appointment with a repeat BMP within 1 week. If you do not receive a call from Dr. Marroquin's office within 48 hours to confirm, please call his office directly at the number above. If you develop any new or worsening symptoms including fever, chills, sweats, chest pain, chest pressure, difficulty breathing, uncontrolled nausea/vomiting, rash, wheezing, passing out or nearly passing out, bleeding, black/bloody bowel movements, or other new or concerning symptoms please call your primary care physician, or call 911 for re-evaluation in the emergency department if you are very concerned. Pending Studies at Discharge: No Stand-Alone Forms: [facility], Smoking Cessation Medications and DC Order Prescriptions: New sucralfate 1 gram Tablet 1 g PO ACHS 14 Days Qty: 42 RF: 0 magnesium oxide 400 mg (241.3 mg magnesium) tablet 400 mg PO BID Qty: 60 RF: 0 lisinopril 20 mg Tablet 20 mg PO BID Qty: 60 RF: 0 Continued Brilinta 90 mg tablet 90 mg PO BID 90 Days Qty: 180 RF: 3 fluvoxamine 50 mg tablet 50 mg PO HS Qty: 90 RF: 3 metoprolol succinate 50 mg tablet extended release 24 hr 50 mg PO DAILY Qty: 90 RF: 3 pantoprazole 40 mg tablet,delayed release (DR/EC) 40 mg PO DAILY RF: 0 Farxiga 10 mg tablet 10 mg PO QAM RF: 0 Humulin R U-500 (Conc) Kwikpen 500 unit/mL (3 mL) insulin pen See Rx Instructions .ROUTE .COMPLEX RF: 0 atorvastatin 80 mg tablet 80 mg PO QAM RF: 0 levothyroxine 88 mcg tablet 88 mcg PO QAM RF: 0 famotidine 20 mg Tablet 20 mg PO BID Qty: 60 RF: 0 nystatin 100,000 unit/gram powder 1 applic topical BID PRN (Reason: Skin Irritation) RF: 0 Discharge Orders: Discharge Order (Routine); Ordered 08/28/21 Ordered By: Eh Guerrero Admission Data Admit Date/Time: 08/20/21 22:59 Attending Provider: Eh Guerrero Admit Provider: Amado Rutledge Primary Care Provider: Omer Marroquin Other Providers: Chuckie Velazquez ; Joaquin Jennings Coding Level of Care Code D/C DAY MANAGEMENT >30 MINS Diagnoses Acute hypokalemia E87.6 Hyperglycemia R73.9 Hypomagnesemia E83.42 CAD (coronary artery disease) I25.10 Associated angina: unspecified whether angina present Coronary Disease-Associated Artery/Lesion type: [place] artery [place] vs. transplanted heart: [place] heart Hypothyroidism E03.9 Hypertension I10 Leukocytosis D72.829 Tobacco abuse Z72.0 Dyslipidemia E78.5 Diabetes type 2, uncontrolled E11.65 Left upper quadrant pain R10.12 Anxiety F41.9 Failure to thrive in adult R62.7
[2021-08-28] MEDS ORDERED: INSULIN HUMAN NPH SC SCH (16:30)
== END 2021-08-28 18:26 | disposition home or self-care (01) | DRG 641 ==
LOC: ED 17:55 → SUATTDRO 22:59 → 2N 22:59

== ENCOUNTER 2021-09-06 20:05 | Inpatient (IN) ==
[2021-09-06] MEDS ORDERED: SODIUM CHLORIDE 0.9% 500 ML IV ONE (20:27)
--- NOTE | 2021-09-06 20:32 | Emergency Department Note ---
History of Present Illness General Chief complaint: Vertigo Stated complaint: dizzy, nausea Time Seen by Provider: 09/06/21 20:19 Source: patient, family (Family members who at the bedside), RN notes reviewed and old records reviewed Mode of arrival: ambulatory History of Present Illness Maximum Pain Intensity: 7 This patient is a 60-year-old female who comes in complaining of feeling dizzy. Its been going on since yesterday she has been nauseated not eating much. Its primarily when she gets up she feels like she is spinning denies chest pain she is also chronic shortness of breath which is unchanged. Her blood sugars been running high at 352 however she says she normally runs high. It feels like her heart is racing at times no chest pain no blood or melena stool no headache neck pain or stiffness no syncope or near syncope no fall or trauma no fever. She has been hospitalized several times recently with low magnesium and low potassium and felt similarly Home Medications Medication Instructions Recorded Confirmed Type nystatin 100,000 unit/gram topical 1 applic topical BID PRN Skin 08/20/21 09/06/21 History powder Irritation magnesium oxide 400 mg (241.3 mg 400 mg PO BID #60 tabs 08/28/21 09/06/21 Rx magnesium) tablet famotidine 20 mg tablet 20 mg PO BID #180 tabs 09/05/21 09/06/21 Rx fluvoxamine 50 mg tablet 50 mg PO HS #90 tabs 09/05/21 09/06/21 Rx insulin regular hum U-500 conc 20 - 30 unit subcut BID 09/05/21 09/06/21 History (Humulin R U-500 (Conc) Insulin Kwikpen) lisinopril 20 mg tablet 20 mg PO BID #180 tabs 09/05/21 09/06/21 Rx sucralfate 1 gram tablet 1 g PO ACHS 14 days #42 tabs 09/05/21 09/06/21 Rx ticagrelor 90 mg tablet (Brilinta) 90 mg PO BID 90 days #180 tabs 09/05/21 09/06/21 Rx atorvastatin 80 mg tablet 80 mg PO QPM 09/06/21 09/06/21 History dapagliflozin 10 mg tablet 10 mg PO QPM 09/06/21 09/06/21 History (Farxiga) levothyroxine 88 mcg tablet 88 mcg PO QPM 09/06/21 09/06/21 History pantoprazole 40 mg tablet,delayed 40 mg PO QPM 09/06/21 09/06/21 History release Allergies Allergy/AdvReac Type Severity Reaction Status Date / Time dulaglutide [From Trulicity] AdvReac Intermediate stomach Verified 09/06/21 20:59 pain albiglutide [From Tanzeum] AdvReac Unknown CAN'T Verified 09/06/21 20:59 REMEMBER Past Med/Surg History Medical History Albuminuria Anxiety CAD (coronary artery disease) No remaining occlusive disease after 2 LAD drug eluting stents 10/22/20. Follows with Dr. Harris Chronic headaches Depression Diabetes type 2, uncontrolled IDDM Diabetic nephropathy associated with type 2 diabetes mellitus Dyslipidemia Hypertension Hypokalemia Hypomagnesemia Hypothyroidism NSTEMI (non-ST elevated myocardial infarction) 10/22/2020 s/p 2 CHANTAL Obesity Osteoarthritis Tobacco abuse Vulvitis Surgical History History of cardiac catheterization 10/22/2020 Dominant: Right Left Main (% Stenosis): Normal LAD (% Stenosis): Proximal (99) and Mid (75) Circumflex (% Stenosis): Normal (luminal irregularities) RCA (% Stenosis): Normal (Luminal irregularities) 2 CHANTAL to LAD History of cholecystectomy History of dental surgery History of tonsillectomy S/P coronary artery stent placement 2 CHANTAL to LAD 10/22/2020 Family History Unknown Diabetes Thyroid disorder Father Diabetes Other No family history of adverse response to anesthesia Denies family history of Ovarian cancer Prostate cancer Breast cancer Colorectal cancer Uterine cancer Social History Smoking Status: Current every day smoker Tobacco Type: Cigarettes packs per day: 0.5; Cigarettes Per Day: 10 cigs; Second Hand Exposure: No; Do You Dip or Chew Tobacco: No; Tobacco Cessation Education Requested by Patient: Yes Hx Alcohol Use: No Hx Substance Use: No Preferred Language: Hungarian Communication Ability: Effective Storeroom Attendant Required: No Beliefs That Will Affect Care: None marital status: Single Current Living Situation: Alone Other Information That Helps Us Care for You: No Feels Safe at Home: Yes Safety Concerns: Feels Safe At This Time Safety Concerns Comment: Gets nervous sometimes because she lives alone, gets shaky from anxiety caffeine: Yes Dental Care, Regularly: No Physical Activity Frequency: Does not Exercise Seatbelt Use: always Sunscreen Use: No Assistive Devices: Glasses Review of Systems A total of 10 systems reviewed and were otherwise negative Physical Exam Vital Signs Vital Signs - 24 hr 09/06/21 20:09 09/06/21 20:58 09/06/21 21:21 Temperature 36.6 C Temperature Source Temporal Artery Scan Pulse Rate 116 H Pulse Rate [Apical] 92 H Pulse Rhythm Regular Pulse Strength Normal Respiratory Rate 20 18 Respiratory Effort / Characteristics Non-Labored Spontaneous Non-Labored Spontaneous Respiratory Depth Normal Normal Respiratory Pattern Regular Blood Pressure 95/66 L Blood Pressure [Right Arm] 113/79 Blood Pressure Mean 75 Blood Pressure Mean [Right Arm] 90 Blood Pressure Position Sitting Blood Pressure Position [Right Arm] Pulse Oximetry 97 99 96 Oxygen Delivery Method Room Air Room Air Room Air Sepsis Recent Fever Within 48 Hours No Sepsis New/Unexplained Change in Mental Status N/A Sepsis Action Taken by Nursing Physician Notified 09/06/21 22:08 Temperature Temperature Source Pulse Rate Pulse Rate [Apical] 89 Pulse Rhythm Pulse Strength Respiratory Rate 20 Respiratory Effort / Characteristics Non-Labored Spontaneous Respiratory Depth Normal Respiratory Pattern Regular Blood Pressure Blood Pressure [Right Arm] 95/68 L Blood Pressure Mean Blood Pressure Mean [Right Arm] 77 Blood Pressure Position Blood Pressure Position [Right Arm] Semi-fowlers Pulse Oximetry 98 Oxygen Delivery Method Room Air Sepsis Recent Fever Within 48 Hours Sepsis New/Unexplained Change in Mental Status Sepsis Action Taken by Nursing General: Well developed well nourished middle-aged female who is alert and orient x3 and appears in no acute distress, breathing comfortably on room air. Normal speech nonslurred HEENT: Normal cephalic atraumatic. Pupils are equal round and reactive to light. Extraocular movements are intact. Oropharynx is pink with moist mucous membranes. No swelling of the mouth lips or tongue. Neck: Supple with a midline trachea. No meningeal signs or stiffness, no JVD or bruits. No Stridor. Chest: Clear to auscultation bilaterally. No wheezes or rhonchi. No increased work of breathing. Heart: Tachycardic but regular rate and rhythm without murmurs or gallops. Abdomen: Soft nontender, nondistended without rebound guarding or rigidity. Extremities: No cyanosis clubbing or edema. No calf tenderness or assymetry Spine/Back. Non tender to palpation. No CVA tenderness Skin: Good turgor without rashes. Neurologic exam: Cranial nerves two through 12 are intact. Motor and sensation are intact and symmetrical throughout. Tremor. Course Administered Medications Discontinued Medications Sodium Chloride (Nss) 500 mls @ 999 mls/hr IV .Q31M ONE Stop: 09/06/21 20:57 Last Infusion: 09/06/21 21:09 Dose: 0 mls/hr Documented By: Admin: 09/06/21 20:38 Dose: 999 mls/hr Documented By: BRIAN Potassium Chloride (K Esa / Wtr) 10 meq in 100 mls @ 100 mls/hr IV Q1H TONI; Protocol Stop: 09/06/21 22:59 Last Infusion: 09/06/21 23:15 Dose: 0 mls/hr Documented By: Admin: 09/06/21 22:15 Dose: 100 mls/hr Documented By: Infusion: 09/06/21 22:14 Dose: 0 mls/hr Documented By: Admin: 09/06/21 21:15 Dose: 100 mls/hr Documented By: BRIAN Magnesium Sulfate/Dextrose (Magnesium Sulfate / D5w) 1 gm in 100 mls @ 100 mls/hr IV NOW STA Stop: 09/06/21 21:48 Last Infusion: 09/06/21 22:14 Dose: 0 mls/hr Documented By: Admin: 09/06/21 21:14 Dose: 100 mls/hr Documented By: BRIAN Critical Care Time Critical Care Time: Yes Total Critical Care Time: 30 Due to the patient's vital sign abnormalities, significant electrolyte abnormalities, concern for arrhythmia, need for frequent reassessment, multiple IV medications IV fluids and consultation and admission, I have personally spent greater than 30 minutes of critical care time in the direct management of this patient. This includes bedside care, interpretation of diagnostic studies, and testing, discussion with consultants, patient, and family members, and other required patient management activities. This 30 minutes is in excess of all separately billable procedures. Medical Decision Making Differential Diagnosis Electrolyte or metabolic abnormality, arrhythmia, acute coronary syndrome, dehydration, sepsis, electrolyte or metabolic abnormalities. Medical Records Attestation: I reviewed the patient's medical records. Home Medications Current Medication List: was personally reviewed by me Laboratory Data Attestation: I reviewed the patient's lab results. Result diagrams: 09/06/21 20:30 09/06/21 20:30 Lab Results 09/06/21 09/06/21 09/06/21 Range/Units 20:13 20:30 20:30 WBC 13.22 H (4.8-10.8) K/ul RBC 4.92 (3.93-5.22) M/uL Hgb 14.2 (12.0-16.0) g/dl Hct 40.8 (34.1-44.9) % MCV 82.9 (80.0-100.0) fL MCH 28.9 (25.0-34.0) pg MCHC 34.8 (32.0-36.0) g/dL RDW Std Deviation 39.4 (36.4-46.3) fL RDW Coeff of Umair 13.1 (11.5-14.5) % Plt Count 365 (130-400) K/uL MPV 10.4 (9.4-12.3) fL Immature Gran % (Auto) 0.3 % Neut % (Auto) 79.2 % Lymph % (Auto) 14.4 % [place] % (Auto) 5.4 % Eos % (Auto) 0.3 % Baso % (Auto) 0.4 % Neut # (Auto) 10.47 H (1.4-6.5) K/uL Lymph # (Auto) 1.90 (1.2-3.4) K/uL [place] # (Auto) 0.72 (0.24-0.82) K/uL Eos # (Auto) 0.04 (0-0.50) K/uL Baso # (Auto) 0.05 (0-0.2) K/uL Immature Gran # (Auto) 0.04 H (0.00-0.02) K/uL Sodium 137 (136-145) mmol/L Potassium 2.3 L* (3.5-5.1) mmol/L Chloride 99 (98-107) mmol/L Carbon Dioxide 22 (21-32) mmol/L Anion Gap 16 H (3-11) BUN 6 (6-23) mg/dl Creatinine 1.06 (0.6-1.2) mg/dl Est Cr Clr Drug Dosing 53.6 ml/min Est GFR ( Amer) 65.6 ml/min Est GFR (Non-Af Amer) 56.6 ml/min BUN/Creatinine Ratio 5.7 L (10-20) Glucose 317 H* (70-99(Fasting)) mg/dl POC Glucose 352 H* (70-99) mg/dl Calcium 9.0 (8.5-10.1) mg/dl Magnesium 1.7 (1.7-2.4) mg/dl Total Bilirubin 0.5 (0.2-1.0) mg/dl AST 29 (13-39) U/L ALT 31 (7-52) U/L Alkaline Phosphatase 152 H (34-104) U/L Troponin I High Sens 14.5 H D (0-14) pg/ml Total Protein 7.3 (6.0-8.3) gm/dl Albumin 3.4 (3.4-5.0) gm/dl Globulin 3.9 (2.5-4.0) gm/dl Albumin/Globulin Ratio 0.9 (0.9-2) Lipase 8 L (11-82) U/L SARS-CoV-2, RNA, NAAT (NEGATIVE) 09/06/21 Range/Units 20:35 WBC (4.8-10.8) K/ul RBC (3.93-5.22) M/uL Hgb (12.0-16.0) g/dl Hct (34.1-44.9) % MCV (80.0-100.0) fL MCH (25.0-34.0) pg MCHC (32.0-36.0) g/dL RDW Std Deviation (36.4-46.3) fL RDW Coeff of Umair (11.5-14.5) % Plt Count (130-400) K/uL MPV (9.4-12.3) fL Immature Gran % (Auto) % Neut % (Auto) % Lymph % (Auto) % [place] % (Auto) % Eos % (Auto) % Baso % (Auto) % Neut # (Auto) (1.4-6.5) K/uL Lymph # (Auto) (1.2-3.4) K/uL [place] # (Auto) (0.24-0.82) K/uL Eos # (Auto) (0-0.50) K/uL Baso # (Auto) (0-0.2) K/uL Immature Gran # (Auto) (0.00-0.02) K/uL Sodium (136-145) mmol/L Potassium (3.5-5.1) mmol/L Chloride (98-107) mmol/L Carbon Dioxide (21-32) mmol/L Anion Gap (3-11) BUN (6-23) mg/dl Creatinine (0.6-1.2) mg/dl Est Cr Clr Drug Dosing ml/min Est GFR ( Amer) ml/min Est GFR (Non-Af Amer) ml/min BUN/Creatinine Ratio (10-20) Glucose (70-99(Fasting)) mg/dl POC Glucose (70-99) mg/dl Calcium (8.5-10.1) mg/dl Magnesium (1.7-2.4) mg/dl Total Bilirubin (0.2-1.0) mg/dl AST (13-39) U/L ALT (7-52) U/L Alkaline Phosphatase (34-104) U/L Troponin I High Sens (0-14) pg/ml Total Protein (6.0-8.3) gm/dl Albumin (3.4-5.0) gm/dl Globulin (2.5-4.0) gm/dl Albumin/Globulin Ratio (0.9-2) Lipase (11-82) U/L SARS-CoV-2, RNA, NAAT NEGATIVE (NEGATIVE) Imaging Data Attestation: I personally reviewed and interpreted this imaging study as follows : My Impression: X-rayno acute infiltrate, failure, pneumothorax seen Radiologist's Impression: Chest X-Ray 09/06/21 20:26 SINGLE VIEW CHEST CLINICAL HISTORY: Atypical chest pain. Dizziness. FINDINGS: An AP, portable, upright chest radiograph is compared to study dated 08/20/2021. Correlation is made with chest CT dated 04/09/2021. The heart is top normal for projection noting atherosclerotic calcification of the thoracic aorta. A coronary artery stent is noted. There is mild bibasilar atelectasis. The lungs and pleural spaces are otherwise clear. No pneumothorax is seen. The skeletal structures are osteopenic. The bony thorax is grossly intact. IMPRESSION: No active disease in the chest. ACT 112: Negative or not required by law. Electronically signed by: Lalito Cisse M.D. 09/06/2021 9:03 PM ECG Data Attestation: I personally reviewed and interpreted this ECG as follows: Indication: + weakness Rate (beats per minute): 110 Rhythm: + sinus tachycardia ECG Intervals/blocks: + Normal QRS, + Prolonged QT and + Normal LA ECG [place]: + Normal ECG ST segments: + Normal ST segments ECG Findings: no PACs or no PVCs Comparison ECG Date: from (08/24/21) Change: the following changes noted (QT interval has now increased. Non- specific T waves have improved compared to old) MDM Narrative This patient comes in as described above she was placed as a priority patient promptly saw her. Her blood pressure is mildly low and she is little tachy cardic I do not think he likely has sepsis however it sounds like this is been an ongoing issue with her electrolytes and is more of a concern I did an EKG there is no ischemic changes she has some sinus tachycardia QTC is prolonged which may be related to electrolyte abnormality. I did order i-STAT labs and an IV normal saline bolus. She was reassessed frequently. I reviewed her old records. I talked to the family at length at the bedside. I stat potassium came back at 2.2 and I did order 2K riders to be over over an hour I had the nurse established a second IV. I also ordered a gram of magnesium IV. From the lab her potassium came back at 2.3 and magnesium 1.7. Electrolyte abnormalities likely explain her EKG abnormality she had no significant arrhythmia while she was in the ED and on the monitor. Her troponin is borderline only minimally elevated. Her follow-up troponin shows no significant change compared to the first I do not think she has any ischemia. She received IV fluids as well as potassium and magnesium supplementation and I do think needs to be admitted/observed for further treatment and evaluation her blood sugar was also elevated however she has no evidence suggest DKA this was further treated with fluids as well. I have consulted Dr. Liang to see her for these measures Continuous cardiac monitoring: Orders placed in EMR for continuous cardiac cath technician. Upon my interpretation the patient had to be in normal sinus rhythm rate of 75. Impression & Plan Weakness, Acute hypokalemia, Acute dehydration, Hypomagnesemia, Lab test negative for COVID-19 virus, Hyperglycemia Discharge Plan Visit Data Chief Complaint: Vertigo Stated Complaint: dizzy, nausea ED Provider: Declan Medina Discharge Problem: Weakness, Acute hypokalemia, Acute dehydration, Hypomagnesemia, Lab test negative for COVID-19 virus, Hyperglycemia Patient Disposition: Admitted As Inpatient Discharge Instructions Interventions: ED Discharge Assessment Last Done: 09/06/21 23:50
[2021-09-06] MEDS ORDERED: MAGNESIUM SULFATE / D5W 1 GM/100 ML BAG IV STA (20:49)
[2021-09-06 20:57] LABS: Basophils # (auto) 0.05 K/uL (0-0.2); Basophils % (auto) 0.4 %; Eosinophils # (auto) 0.04 K/uL (0-0.50); Eosinophils % (auto) 0.3 %; Hematocrit (blood only) 40.8 % (34.1-44.9); Hemoglobin 14.2 g/dl (12.0-16.0); Immature Granulocytes # (auto) 0.04 K/uL (0.00-0.02); Immature Granulocytes % (auto) 0.3 %; Lymphocytes % (auto) 14.4 %; Mean Corpuscular Hemoglobin 28.9 pg (25.0-34.0); Mean Corpuscular Hgb Conc 34.8 g/dL (32.0-36.0); Mean Corpuscular Volume 82.9 fL (80.0-100.0); Mean Platelet Volume 10.4 fL (9.4-12.3); Monocytes # (auto) 0.72 K/uL (0.24-0.82); Monocytes % (auto) 5.4 %; Neutrophils # (auto) 10.47 K/uL (1.4-6.5); Neutrophils % (auto) 79.2 %; Platelet Count 365 K/uL (130-400); RDW Coefficient of Variation 13.1 % (11.5-14.5); RDW Standard Deviation 39.4 fL (36.4-46.3); Red Blood Count 4.92 M/uL (3.93-5.22); White Blood Count 13.22 K/ul (4.8-10.8)
--- NOTE | 2021-09-06 21:05 | XRay Report ---
SINGLE VIEW CHEST CLINICAL HISTORY: Atypical chest pain. Dizziness. FINDINGS: An AP, portable, upright chest radiograph is compared to study dated 08/20/2021. Correlation is made with chest CT dated 04/09/2021. The heart is top normal for projection noting atherosclerotic calcification of the thoracic aorta. A coronary artery stent is noted. There is mild bibasilar atelec tasis. The lungs and pleural spaces are otherwise clear. No pneumothorax is seen. The skeletal struct ures are osteopenic. The bony thorax is grossly intact. IMPRESSION: No active disease in the chest. ACT 112: Negative or not required by law. Electronically signed by: Lalito Cisse M.D. 09/06/2021 9:03 PM
[2021-09-06] MEDS: POTASSIUM CHLORIDE / WTR 10 MEQ/100 ML PLCT IV SCH ×2 (21:15→22:15)
[2021-09-06 21:45] LABS: Albumin Globulin Ratio 0.9 (0.9-2); Albumin Level 3.4 gm/dl (3.4-5.0); BUN Creatinine Ratio 5.7 (10-20); Bilirubin,Total 0.5 mg/dl (0.2-1.0); Creatinine Clr Calc Pharmacy 53.6 ml/min; Est GFR (African American) 65.6 ml/min; Est GFR (Non-African American) 56.6 ml/min; Globulin 3.9 gm/dl (2.5-4.0); Magnesium 1.7 mg/dl (1.7-2.4); Potassium 2.3 mmol/L (3.5-5.1); Total Protein 7.3 gm/dl (6.0-8.3); Troponin I High Sensitivity 14.5 pg/ml (0-14)
--- NOTE | 2021-09-06 22:08 | History & Physical Report ---
Date of Service September 06, 2021 Assessment & Plan (1) Acute hypokalemia: Plan: 60yo female with a history of CAD s/p stents, poorly-controlled IDDM2, HTN, hypothyroidism, active tobacco use, OCD, anxiety, and multiple prior admissions for dizziness/vertigo presents for a two-day history of dizziness/vertigo and nausea. Acute hypokalemia, vertigo, nausea, vomiting Potassium on admission 2.3, down from 3.9 upon prior discharge (9 days ago); magnesium borderline low at 1.7 On previous admission, potassium level improved with potassium/magnesium repletion and lisinopril initiation; prior note mentions a discontinued thiazide though it is unclear which or when this was discontinued EKG on admission shows sinus tachycardia and QTc prolongation without other overt concerns or ischemic change Labs also notable for mild leukocytosis to 13.2, elevated alk phos to 152, mildly elevated troponin to 14.5 Differential includes GI losses due to vomiting, poor PO intake, gastroparesis, diabetic nephropathy, RTA, others Consult GI for further workup given working diagnosis on previous admissions was GI loss; NPO pending GI consult Consider nephrology consult (as they were consulted on prior admission) Continue KCl 20mEq PO tid NSS + KCl 20mEq @ 125mL/hr (x2 liters ordered) Continue famotidine, continue sucralfate, continue pantoprazole for now, consider holding PPI due to hypokalemia Repeat BMP q4h, trend daily EKG Will check renin/aldosterone levels IDDM2, hyperglycemia HbA1c 10.7% (07/02/21) Patient's home regimen held on admission Continue BSG checks, hypoglycemic protocol Will hold off on starting ISS until potassium improves; restart when appropriate Unintentional weight loss Patient with ~40lb unintentional weight loss over the past year Differential includes poor PO intake, ?gastroparesis, possible malignancy Will obtain CT abdomen/pelvis to evaluate for possible malignancy Difficulty swallowing Intermittent over the past week Will order speech eval NPO pending GI consultation ([facility] [place]) Elevated troponin Initial hsTroponin on admission slightly elevated to 15.5 Repeat value ordered Likely secondary to demand ischemia; no CP Continue to monitor CAD s/p stents, HLD: continue home ticagrelor HTN: BP borderline low on admission, continue IVF as above Hypothyroidism: continue home levothyroxine Nicotine dependence: patient declines nicotine patch at this time; PCP follow-up recommended OCD: continue home fluvoxamine FEN: NPO pending GI evaluation (meds [place]); NSS + KCl 20mEq @ 125mL/hr (x2L ordered) Code status: DNR/DNI DVT ppx: SCDs Held home meds: DM2 regimen Consults: gastroenterology PT/OT: ordered Dispo: PCU pending stabilization of acute hypokalemia (2) CAD (coronary artery disease): (3) Depression: (4) Diabetes type 2, uncontrolled: (5) Dyslipidemia: (6) Hyperglycemia: (7) Hypertension: (8) Hypothyroidism: (9) Leukocytosis: (10) Nausea vomiting and diarrhea: (11) Tobacco abuse: History of Present Illness Primary Care Provider: Omer Marroquin MD 60yo female with a history of CAD s/p stents, poorly-controlled IDDM2, HTN, hypothyroidism, active tobacco use, OCD, anxiety, and multiple prior admissions for dizziness/vertigo presents for a two-day history of dizziness/vertigo and nausea. Patient has been admitted multiple times for similar symptoms, most recently 08/20/21 through 08/28/21. Patient notes poor appetite and occasional palpitations. Patient reports her symptoms feel similar to those that led to her recent admission. Also notes mild SOB though this is unchanged from her baseline. Endorse well as mild SOB which is unchanged from baseline. BSGs have been in the mid-300s though patient notes she usually runs this high. Also endorses intermittent RLQ pain though this is unchanged from baseline. Patient denies fever, vision changes, CP, diarrhea, dysuria, syncope, or other symptoms. Allergies Allergy/AdvReac Type Severity Reaction Status Date / Time dulaglutide [From Trulicity] AdvReac Intermediate stomach Verified 09/06/21 20:59 pain albiglutide [From Tanzeum] AdvReac Unknown CAN'T Verified 09/06/21 20:59 REMEMBER Home Medications Medication Instructions Recorded Confirmed Type nystatin 100,000 unit/gram topical 1 applic topical BID PRN Skin 08/20/21 09/06/21 History powder Irritation magnesium oxide 400 mg (241.3 mg 400 mg PO BID #60 tabs 08/28/21 09/06/21 Rx magnesium) tablet famotidine 20 mg tablet 20 mg PO BID #180 tabs 09/05/21 09/06/21 Rx fluvoxamine 50 mg tablet 50 mg PO HS #90 tabs 09/05/21 09/06/21 Rx insulin regular hum U-500 conc 20 - 30 unit subcut BID 09/05/21 09/06/21 History (Humulin R U-500 (Conc) Insulin Kwikpen) lisinopril 20 mg tablet 20 mg PO BID #180 tabs 09/05/21 09/06/21 Rx sucralfate 1 gram tablet 1 g PO ACHS 14 days #42 tabs 09/05/21 09/06/21 Rx ticagrelor 90 mg tablet (Brilinta) 90 mg PO BID 90 days #180 tabs 09/05/21 09/06/21 Rx atorvastatin 80 mg tablet 80 mg PO QPM 09/06/21 09/06/21 History dapagliflozin 10 mg tablet 10 mg PO QPM 09/06/21 09/06/21 History (Farxiga) levothyroxine 88 mcg tablet 88 mcg PO QPM 09/06/21 09/06/21 History pantoprazole 40 mg tablet,delayed 40 mg PO QPM 09/06/21 09/06/21 History release Past Med/Surg History Medical History Albuminuria Anxiety CAD (coronary artery disease) No remaining occlusive disease after 2 LAD drug eluting stents 10/22/20. Follows with Dr. Harris Chronic headaches Depression Diabetes type 2, uncontrolled IDDM Diabetic nephropathy associated with type 2 diabetes mellitus Dyslipidemia Hypertension Hypokalemia Hypomagnesemia Hypothyroidism NSTEMI (non-ST elevated myocardial infarction) 10/22/2020 s/p 2 CHANTAL Obesity Osteoarthritis Tobacco abuse Vulvitis Surgical History History of cardiac catheterization 10/22/2020 Dominant: Right Left Main (% Stenosis): Normal LAD (% Stenosis): Proximal (99) and Mid (75) Circumflex (% Stenosis): Normal (luminal irregularities) RCA (% Stenosis): Normal (Luminal irregularities) 2 CHANTAL to LAD History of cholecystectomy History of dental surgery History of tonsillectomy S/P coronary artery stent placement 2 CHANTAL to LAD 10/22/2020 Family History Unknown Diabetes Thyroid disorder Father Diabetes Other No family history of adverse response to anesthesia Denies family history of Ovarian cancer Prostate cancer Breast cancer Colorectal cancer Uterine cancer Social History Smoking Status: Current every day smoker Tobacco Type: Cigarettes packs per day: 0.5; Cigarettes Per Day: 10 cigs; Second Hand Exposure: No; Do You Dip or Chew Tobacco: No; Tobacco Cessation Education Requested by Patient: Yes Hx Alcohol Use: No Hx Substance Use: No Preferred Language: Greenlandic Communication Ability: Effective Protein Scientist Required: No Beliefs That Will Affect Care: None marital status: Single Current Living Situation: Alone How many Children do You have: 0 Other Information That Helps Us Care for You: No Feels Safe at Home: Yes Safety Concerns: Feels Safe At This Time Safety Concerns Comment: Gets nervous sometimes because she lives alone, gets shaky from anxiety caffeine: Yes Dental Care, Regularly: No Physical Activity Frequency: Does not Exercise Seatbelt Use: always Sunscreen Use: No Assistive Devices: None Physical Exam Physical Exam: Constitutional: tired-appearing, no acute distress HEENT: NCAT, no scleral icterus, MMM moist CV: regular rhythm, no murmur appreciated, extremities well-perfused, trace LE edema Resp: CTABL, no wheezes/rales/rhonchi appreciated, no increased work of breathing GI: soft, nondistended, mild RLQ tenderness without rebound, BS normoactive MSK: no gross deformities appreciated Neuro: alert, oriented, no focal neurologic deficit appreciated Results & Data Results & Data ([facility]) Vital Signs (Past 12 Hours) Vital Signs Temp Pulse Pulse Resp BP BP Pulse Ox 09/06/21 21:21 96 09/06/21 20:58 92 H 18 113/79 99 09/06/21 20:09 36.6 C 116 H 20 95/66 L 97 O2 Del Method 09/06/21 21:21 Room Air 09/06/21 20:58 Room Air 09/06/21 20:09 Room Air Supervising Physician Co-Signing Physician Notes Attending addendum: I have physically seen this patient, have supervised the medical residents activities, and agree with the H&P unless as otherwise noted. Assessment and Plan: Hypokalemia= Potassium 2.3 on admission labs At previous admission with low, did respond to IV and oral replacement IV and oral replacement, recheck laboratories in a.m. Check renin and aldosterone levels Has been negative for gluten sensitive enteropathy testing in the past NSS + KCl 20 mill equivalents 125 mils per hour x2 L Potassium chloride 20 mEq p.o. 3 times daily Should consider change from pantoprazole Review records to see if assessed for gastroparesis Diabetes mellitus- Hold home regimen placed on Accu-Cheks before meals and at bedtime with NovoLog coverage per scale Unintentional weight loss- Patient and family report about a 40 pound weight loss over the past year Ordered CT abdomen pelvis to assess for occult malignancy Elevated troponin- Highly sensitive troponin 14.5 Will order 2-hour repeat, but unlikely significant Remaining orders and notations as noted Resident Activity Tracking Resident Involvement: Resident Care Provided and Interactive Media Project Manager Coverage Note Care Provided: Adult Hospital Medicine (1) CAD (coronary artery disease) Associated angina: unspecified whether angina present Coronary Disease- Associated Artery/Lesion type: [place] artery [place] vs. transplanted heart: n[place]ki heart Qualified Code(s): I25.10 - Atherosclerotic heart disease of nikolski coronary artery without angina pectoris
[2021-09-07] MEDS ORDERED: ACETAMINOPHEN 325 MG TAB PO PRN (00:21)
[2021-09-07] MEDS ORDERED: MELATONIN 3 MG TAB PO PRN (00:21)
[2021-09-07] MEDS ORDERED: DEXTROSE 50% 50 ML SYRINGE IV PRN (00:21)
[2021-09-07] MEDS ORDERED: CARBOHYDRATES FOR HYPOGLYCEMIA PO PRN (00:21)
[2021-09-07] MEDS ORDERED: GLUCOSE 10 TAB/TUBE PO PRN (00:21)
[2021-09-07] MEDS ORDERED: GLUCAGON FOR INJ 1 MG VIAL SQ PRN (00:21)
[2021-09-07] MEDS ORDERED: GLUCOSE 40% GEL 15 GM TUBE PO PRN (00:21)
[2021-09-07] MEDS ORDERED: NSS + 20MEQ KCL 20 MEQ/1,000 ML BAG IV SCH (01:15)
[2021-09-07 01:32] LABS: BUN Creatinine Ratio 7.1 (10-20); Calcium 8.1 mg/dl (8.5-10.1); Creatinine Clr Calc Pharmacy 66.5 ml/min; Est GFR (African American) 85.7 ml/min; Potassium 2.4 mmol/L (3.5-5.1)
[2021-09-07] MEDS: lisinopril 20 MG TAB PO SCH ×2 (01:52→15:50)
[2021-09-07] MEDS: FAMOTIDINE 20 MG TAB PO SCH ×2 (01:52→15:48)
[2021-09-07] MEDS: TICAGRELOR 90 MG TAB PO SCH ×2 (01:52→15:49)
[2021-09-07] MEDS ORDERED: D5NSS + 20MEQ KCL 20 MEQ/1,000 ML BAG IV SCH (02:00)
--- NOTE | 2021-09-07 07:57 | CT Scan Report ---
CT SCAN OF THE ABDOMEN AND PELVIS WITHOUT IV CONTRAST CLINICAL HISTORY: Unintended weight loss. COMPARISON STUDY: Abdominal CT dated 08/20/2021. TECHNIQUE: CT scan of the abdomen and pelvis is performed from the lung bases to the proximal femora. Images are reviewed in the axial, sagittal, and coronal planes. IV contrast was not administered for this examination. Note that the examination was performed in suboptimal fashion without oral and IV contrast. A dose lowering technique was utilized adhering to the principles of ALARA. CT DOSE: 932.70 mGy.cm FINDINGS: Lung bases: The heart is normal in size and without pericardial effusion. The lung bases are clear no ting bibasilar scarring/atelectasis. Liver: The unenhanced liver is mildly enlarged measuring 18.9 cm in length. The liver is otherwise no rmal in contour and attenuation. There is no intrahepatic biliary ductal dilatation. There are 2 hype rdense nodules along the posterior right lobe of liver seen on image #108. These are indeterminant an d may represent dropped gallstones. Gallbladder: Surgically absent noting clips in the gallbladder fossa. Spleen: Normal in size and attenuation. Pancreas: The unenhanced pancreas is atrophic and grossly unremarkable. Adrenal glands: Unremarkable. Kidneys: The unenhanced kidneys are normal in size and without hydronephrosis. There are no renal laura culi identified. A 1.6 cm simple cyst is noted in the left kidney. Abdominal vasculature: The abdominal aorta is normal in course and caliber noting mild to moderate at herosclerotic calcification. Bowel: There is mild colonic diverticulosis without CT evidence of acute diverticulitis. No bowel obs truction is identified. A 9 mm lipoma is suggested in the right colon on image #220. A tiny duodenal diverticulum is incidentally noted. The appendix is well-visualized and normal. Peritoneum: There is no intraperitoneal free air or abdominal ascites. A fat-containing supraumbilica l hernia is seen on image #114. There is also a fat-containing umbilical hernia. Lymphadenopathy: None. Pelvic viscera: The bladder is distended but otherwise normal in appearance. There are calcified uter ine fibroids. No adnexal lesion is seen. Skeletal structures: The skeletal structures are osteopenic. Mild lumbosacral spondylosis is observed . Sclerotic change is noted in the sacroiliac joints and pubic symphysis. No lytic or blastic lesions are seen. IMPRESSION: 1. Suboptimal examination without oral and IV contrast. 2. No acute infectious or inflammatory findings are identified in the abdomen or pelvis. No significa nt change from 08/20/2021. 3. Question dropped gallstones along the posterior aspect of the liver. 4. Mild colonic diverticulosis without CT evidence of acute diverticulitis. 5. Additional findings as above. ACT 112: Negative or not required by law. Electronically signed by: Lalito Cisse M.D. 09/07/2021 7:56 AM
[2021-09-07 08:03] LABS: Basophils # (auto) 0.04 K/uL (0-0.2); Basophils % (auto) 0.5 %; Eosinophils # (auto) 0.21 K/uL (0-0.50); Eosinophils % (auto) 2.4 %; Hematocrit (blood only) 36.1 % (34.1-44.9); Hemoglobin 12.3 g/dl (12.0-16.0); Immature Granulocytes # (auto) 0.02 K/uL (0.00-0.02); Immature Granulocytes % (auto) 0.2 %; Lymphocytes % (auto) 23.2 %; Mean Corpuscular Hemoglobin 29.4 pg (25.0-34.0); Mean Corpuscular Hgb Conc 34.1 g/dL (32.0-36.0); Mean Corpuscular Volume 86.2 fL (80.0-100.0); Mean Platelet Volume 10.8 fL (9.4-12.3); Monocytes # (auto) 0.65 K/uL (0.24-0.82); Monocytes % (auto) 7.5 %; Neutrophils # (auto) 5.71 K/uL (1.4-6.5); Neutrophils % (auto) 66.2 %; Platelet Count 288 K/uL (130-400); RDW Coefficient of Variation 13.2 % (11.5-14.5); RDW Standard Deviation 41.1 fL (36.4-46.3); Red Blood Count 4.19 M/uL (3.93-5.22); White Blood Count 8.63 K/ul (4.8-10.8)
[2021-09-07] MEDS: SUCRALFATE 1 GM TAB PO SCH ×4 (08:24→20:46)
[2021-09-07 08:44] LABS: Albumin Globulin Ratio 0.9 (0.9-2); Albumin Level 2.9 gm/dl (3.4-5.0); BUN Creatinine Ratio 6.2 (10-20); Bilirubin,Total 0.6 mg/dl (0.2-1.0); Creatinine Clr Calc Pharmacy 69.8 ml/min; Est GFR (African American) 90.9 ml/min; Est GFR (Non-African American) 78.4 ml/min; Globulin 3.3 gm/dl (2.5-4.0); Magnesium 1.7 mg/dl (1.7-2.4); Phosphorus 3.8 mg/dl (2.5-4.9); Potassium 2.5 mmol/L (3.5-5.1); Total Protein 6.2 gm/dl (6.0-8.3)
[2021-09-07] MEDS ORDERED: POTASSIUM CHLORIDE CRTAB 20 MEQ TABCR PO SCH (09:00)
--- NOTE | 2021-09-07 09:15 | Gastrointestinal Consultation ---
Date of Consultation September 07, 2021 Assessment & Plan (1) Nausea: (2) Early satiety: (3) Dysphagia: Plan 60 year old female with a history of CAD s/p stents, poorly-controlled IDDM2, HTN, hypothyroidism, active tobacco use, OCD, anxiety, and multiple prior admissions for dizziness/vertigo admitted for a two-day history of dizziness/vertigo and nausea. GI consulted for questionable gastroparesis. She does admit to weight loss but tells me that she feels this is more due to poor i ntake. she admits her symptoms have been ongoing for months. she was to check GES after past admissions but she never had done. Interestingly she does admit to trying a gastroparesis diet and did feel better with this in the past. Her poorly controlled blood sugars are likely contributing to all of her symptoms. - recommend correction of her potassium. - can check a GES as an outpatient to confirm gastroparesis though this is likely what is causing her issues. - will order a Video fluoroscopy with speech input given that her dysphagia sounds more oropharyngeal in nature. - can start low fat diet. no plan for egd given unremarkable egd 03/2021 other than gastritis. - continue famotidine 20mg bid, protonix 40mg once daily, and carafate 1gm qhs. - will start zofran 4mg qid prn nausea. Supervising Physician Co-Signing Physician Notes Agree with AUDRA Fuentes as above Abd: Soft, NT, ND, +BS Continue current therapy and supportive care Will follow clinical course and make further recommendations as needed. History of Present Illness Reason for Consultation: hypokalemia, ?GI loss, ?gastroparesis Requesting Physician: Dr. Chavez Attending Physician: Demetrius Mancilla History of Present Illness 60 year old female with a history of CAD s/p stents, poorly-controlled IDDM2, HTN, hypothyroidism, active tobacco use, OCD, anxiety, and multiple prior admissions for dizziness/vertigo presents for a two-day history of dizziness/vertigo and nausea. Patient tells met that these symptoms have been chronic and ongoing for months. She had an admission earlier this year for this and at that time underwent an egd 03/2021 showing gastritis. She tells me that she has chronic nausea and early satiety. Not eating as much as she used to. In the past year she tells me she has lost more than 70 lbs due to this. she denies any vomiting. Can get occasional mild epigastric pain. Also admits to dysphagia to meats. she tells me that foods don't tend to get caught up if she cuts them into small pieces which she does do, but she feels that it is more an issue with starting to swallow. She has CT last evening of abdomen/pelvis showing no acute infectious or inflammatory findings, questions a dropped a gallstone along liver. lfts normal except alk phos of 124. she was to have a GES after past admission but never had done. She did try a gastroparesis diet and does feel this was helpful. denies heartburn, change in bowels, melena, brbpr. Allergies Allergy/AdvReac Type Severity Reaction Status Date / Time dulaglutide [From Trulicity] AdvReac Intermediate stomach Verified 09/06/21 20:59 pain albiglutide [From Tanzeum] AdvReac Unknown CAN'T Verified 09/06/21 20:59 REMEMBER Home Medications Medication Instructions Recorded Confirmed Type nystatin 100,000 unit/gram topical 1 applic topical BID PRN Skin 08/20/21 09/06/21 History powder Irritation magnesium oxide 400 mg (241.3 mg 400 mg PO BID #60 tabs 08/28/21 09/06/21 Rx magnesium) tablet famotidine 20 mg tablet 20 mg PO BID #180 tabs 09/05/21 09/06/21 Rx fluvoxamine 50 mg tablet 50 mg PO HS #90 tabs 09/05/21 09/06/21 Rx insulin regular hum U-500 conc 20 - 30 unit subcut BID 09/05/21 09/06/21 History (Humulin R U-500 (Conc) Insulin Kwikpen) lisinopril 20 mg tablet 20 mg PO BID #180 tabs 09/05/21 09/06/21 Rx sucralfate 1 gram tablet 1 g PO ACHS 14 days #42 tabs 09/05/21 09/06/21 Rx ticagrelor 90 mg tablet (Brilinta) 90 mg PO BID 90 days #180 tabs 09/05/21 09/06/21 Rx atorvastatin 80 mg tablet 80 mg PO QPM 09/06/21 09/06/21 History dapagliflozin 10 mg tablet 10 mg PO QPM 09/06/21 09/06/21 History (Farxiga) levothyroxine 88 mcg tablet 88 mcg PO QPM 09/06/21 09/06/21 History pantoprazole 40 mg tablet,delayed 40 mg PO QPM 09/06/21 09/06/21 History release Patient History Medical History Albuminuria Anxiety CAD (coronary artery disease) No remaining occlusive disease after 2 LAD drug eluting stents 10/22/20. Follows with Dr. Harris Chronic headaches Depression Diabetes type 2, uncontrolled IDDM Diabetic nephropathy associated with type 2 diabetes mellitus Dyslipidemia Hypertension Hypokalemia Hypomagnesemia Hypothyroidism NSTEMI (non-ST elevated myocardial infarction) 10/22/2020 s/p 2 CHANTAL Obesity Osteoarthritis Tobacco abuse Vulvitis Surgical History History of cardiac catheterization 10/22/2020 Dominant: Right Left Main (% Stenosis): Normal LAD (% Stenosis): Proximal (99) and Mid (75) Circumflex (% Stenosis): Normal (luminal irregularities) RCA (% Stenosis): Normal (Luminal irregularities) 2 CHANTAL to LAD History of cholecystectomy History of dental surgery History of tonsillectomy S/P coronary artery stent placement 2 CHANTAL to LAD 10/22/2020 Family History Unknown Diabetes Thyroid disorder Father Diabetes Other No family history of adverse response to anesthesia Denies family history of Ovarian cancer Prostate cancer Breast cancer Colorectal cancer Uterine cancer Social History Smoking Status: Current every day smoker Tobacco Type: Cigarettes packs per day: 0.5; Cigarettes Per Day: 10 cigs; Second Hand Exposure: No; Do You Dip or Chew Tobacco: No; Tobacco Cessation Education Requested by Patient: Yes Hx Alcohol Use: No Hx Substance Use: No Preferred Language: Chinese Communication Ability: Effective Hospitalist Nocturnist Physician Required: No Beliefs That Will Affect Care: None marital status: Single Current Living Situation: Alone How many Children do You have: 0 Other Information That Helps Us Care for You: No Feels Safe at Home: Yes Safety Concerns: Feels Safe At This Time Safety Concerns Comment: Gets nervous sometimes because she lives alone, gets shaky from anxiety caffeine: Yes Dental Care, Regularly: No Physical Activity Frequency: Does not Exercise Seatbelt Use: always Sunscreen Use: No Assistive Devices: None Review of Systems Constitutional: + weakness; no fever Eyes: no problem reported Ear, Nose, Mouth, Throat: no problem reported Respiratory: no cough and no dyspnea Cardiovascular: no chest pain, no palpitations and no edema Genitourinary: no dysuria and no hematuria Musculoskeletal: + back pain Integumentary: no rash Neurologic: no confusion Physical Exam Constitutional: WD/WN, vitals as above Eyes: + anicteric sclerae and PERRL ENMT: external ear and nose normal, oropharynx normal Respiratory: normal respiratory effort, lungs clear to auscultation Cardiovascular: RRR, no murmur, no edema Gastrointestinal (Abdomen): normoactive bowel sounds, mild epigastric tenderness, soft, no guarding. Skin: no rashes, warm and dry Psychiatric: A+Ox3, euthymic affect Results & Data ([facility]) Vital Signs (Past 12 Hours) Vital Signs Temp Pulse Pulse Resp BP BP Pulse Ox 09/07/21 07:29 36.9 C 79 18 126/82 97 09/07/21 03:16 36.6 C 79 16 121/73 97 09/07/21 03:29 80 09/07/21 00:21 36.9 C 77 18 120/79 96 09/07/21 00:21 09/07/21 00:15 09/07/21 00:15 36.9 C 77 18 120/79 96 09/06/21 23:46 85 18 97/63 L 98 09/06/21 22:08 89 20 95/68 L 98 09/06/21 21:21 96 Pulse Ox O2 Del Method O2 Del Method 09/07/21 07:29 Room Air 09/07/21 03:16 Room Air 09/07/21 03:29 09/07/21 00:21 Room Air 09/07/21 00:21 96 Room Air 09/07/21 00:15 Room Air 09/07/21 00:15 Room Air 09/06/21 23:46 Room Air 09/06/21 22:08 Room Air 09/06/21 21:21 Room Air PG Care Time/CCT Total # of Minutes Spent Total Time Spent with Patient: Total time spent is greater than 50% in coordination of care (as documented) at patient's floor/unit and/or counseling patient: Coding Level of Care Code 19058 Initial Inpt Care Lvl 3 Diagnoses Nausea R11.0 Early satiety R68.81 Dysphagia R13.10
[2021-09-07] MEDS: NSS + 20MEQ KCL 20 MEQ/1,000 ML BAG IV SCH ×2 (10:48→23:18)
[2021-09-07] MEDS: POTASSIUM CHLORIDE / WTR 10 MEQ/100 ML PLCT IV SCH ×3 (10:56→12:56)
--- NOTE | 2021-09-07 11:13 | Electrocardiogram Report ---
Test Reason : Blood Pressure : / mmHG Vent. Rate : 110 BPM Atrial Rate : 110 BPM P-R Int : 112 ms QRS Dur : 068 ms QT Int : 470 ms P-R-T Axes : 000 016 028 degrees QTc Int : 636 ms Sinus tachycardia Low voltage QRS Prolonged QT Nonspecific ST abnormality Abnormal ECG When compared with ECG of 24-AUG-2021 02:37, Vent. rate has increased BY 37 BPM Nonspecific T wave abnormality, improved in Anterolateral leads Confirmed by King Paul ([id number]) on 09/07/2021 11:13:05 AM Referred By: REFERRED SELF Confirmed By:King Paul
--- NOTE | 2021-09-07 11:26 | Electrocardiogram Report ---
Test Reason : Blood Pressure : / mmHG Vent. Rate : 077 BPM Atrial Rate : 077 BPM P-R Int : 164 ms QRS Dur : 076 ms QT Int : 484 ms P-R-T Axes : 047 039 033 degrees QTc Int : 547 ms Normal sinus rhythm T wave abnormality, consider inferolateral ischemia Prolonged QT Abnormal ECG When compared with ECG of 06-SEP-2021 20:20, (unconfirmed) T wave inversion now evident in Inferior leads T wave inversion now evident in Anterolateral leads Confirmed by King Paul ([id number]) on 09/07/2021 11:26:39 AM Referred By: REFERRED SELF Confirmed By:King Paul
[2021-09-07 12:53] LABS: iSTAT Creatinine 0.9 mg/dl (0.6-1.3); iSTAT Hemoglobin 14.6 g/dl (12.0-16.0); iSTAT Ionized Calcium 1.14 mmol/l (1.12-1.32); iSTAT Potassium 2.2 mmol/L (3.3-5.0)
--- NOTE | 2021-09-07 13:37 | Hospitalist Progress Note ---
Date of Service September 07, 2021 Assessment & Plan (1) Hypokalemia: Plan: Severe. Multiple episodes of such with several requiring admission. Previously thought to be due to poor oral intake, vomiting, and HCTZ use. During recent hospital stay the HCTZ was stopped but it was uncertain if she was even on the HCTZ. [id number] she presents again with severe hypokalemia. Renin/stefano levels sent/pending. Cont IV + PO replacement with serial labs. Keep mag wnl. (2) Hypomagnesemia: Plan: Levels this admission wnl. Cont PO mag supplementation. (3) Vertigo: Plan: Numerous episodes over the last month. short-lived, <1 min duration during attacks. BPV? Central cause? Other? Vertigo quite bothersome. Start meclizine 12.5mg TID. MRI brain w contrast - attn auditory canals, r/o acoustic neuroma, CVA, etc. PT vestibular evaluation. (4) Impetigo, unspecified: Plan: nose. bactroban BID to both nares x 7-10 days. (5) Dysphagia: Plan: appreciate GI consultation & speech eval. s/p video swallow. cricopharyngeal dysfunction noted on video swallow today. easy to chew diet. EGD - 03/2021 - esophagus normal, mild gastritis only. (6) Nausea: Plan: gastroparesis from longstanding, poorly-controlled DM?? outpatient GES recommended by GI. consider empiric reglan if necessary. (7) Low back pain: Plan: previous t-spine CT imaging in March with DJD. CTA chest in March also unremarkable. 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 order lantus BID. order novolog - correction factor 15; carb ratio 1:5. adjust as needed. (13) CAD (coronary artery disease): Plan: nothing ischemic at this time. cont statin, ELHAM, brilenta. (14) DVT prophylaxis: Plan: add lovenox daily Plan PT, OT evals Admission and Anticipated Discharge Date Admission Date: September 06, 2021 Subjective patient has numerous complaints during the visit - 1. vertigo - comes on with head movement/walking. Present for about a month or longer. Episodes last <1 minute in duration. Several episodes each day. Some associated nausea. Has never had vertigo in the past. No tinnitus or obvious hearing loss. 2. back pain - present for months but worse in the last few weeks. Mid-back, paraspinal regions. 3. nausea/reflux/regurgitation - severe for several weeks/months, better since coming back to hospital. 4. recurrent "sores" in nose and philtrum region. telemetry normal overnight Review of Systems Review of Systems: gen - no fevers or chills cv - no chest pain pulm - no dyspnea GI - no pain today Physical Exam Physical Exam: gen - NAD, pleasant, awake/alert mouth - no thrush nose - impetiginous lesion over philtrum (yellow, crusty lesion) eyes - nystagmus horizontally with leftward gaze neck - no JVD heart - RRR, s1 s2 lungs - CTA b/l back - mildly tender thoracic region - midline & paraspinal areas b/l abd - soft ND BS+ no HSM ext - no edema, pulses 2+ b/l Results & Data Results & Data ([facility]) Vital Signs (Past 12 Hours) Vital Signs Temp Pulse Pulse Resp BP Pulse Ox O2 Del Method 09/07/21 11:51 36.7 C 84 18 136/80 96 Room Air 09/07/21 07:29 36.9 C 79 18 126/82 97 Room Air 09/07/21 03:16 36.6 C 79 16 121/73 97 Room Air 09/07/21 03:29 80 Laboratory Results Laboratory Results - last 24 hr 09/06/21 09/07/21 09/07/21 20:43 07:02 07:02 WBC 8.63 RBC 4.19 Hgb 12.3 POC Hgb 14.6 Hct 36.1 POC Hct 43 MCV 86.2 MCH 29.4 MCHC 34.1 RDW Std Deviation 41.1 RDW Coeff of Umair 13.2 Plt Count 288 MPV 10.8 Immature Gran % (Auto) 0.2 Neut % (Auto) 66.2 Lymph % (Auto) 23.2 [place] % (Auto) 7.5 Eos % (Auto) 2.4 Baso % (Auto) 0.5 Neut # (Auto) 5.71 Lymph # (Auto) 2.00 [place] # (Auto) 0.65 Eos # (Auto) 0.21 Baso # (Auto) 0.04 Immature Gran # (Auto) 0.02 POC Sodium 138 Sodium 140 POC Potassium 2.2 L* Potassium 2.5 L* POC Chloride 99 L Chloride 103 Carbon Dioxide 28 POC Total CO2 21 L Anion Gap 9 POC Anion Gap 21.0 POC BUN 4 L BUN 5 L Creatinine 0.81 POC Creatinine 0.9 Est Cr Clr Drug Dosing 69.8 Est GFR ( Amer) 90.9 Est GFR (Non-Af Amer) 78.4 BUN/Creatinine Ratio 6.2 L Glucose 184 H POC Glucose POC Glucose (other) 335 H Calcium 8.0 L POC Ioniz Calcium Bessy 1.14 Phosphorus 3.8 Magnesium 1.7 Total Bilirubin 0.6 AST 27 ALT 26 Alkaline Phosphatase 124 H Total Protein 6.2 Albumin 2.9 L Globulin 3.3 Albumin/Globulin Ratio 0.9 09/07/21 09/07/21 09/07/21 08:53 11:49 16:25 WBC RBC Hgb POC Hgb Hct POC Hct MCV MCH MCHC RDW Std Deviation RDW Coeff of Umair Plt Count MPV Immature Gran % (Auto) Neut % (Auto) Lymph % (Auto) [place] % (Auto) Eos % (Auto) Baso % (Auto) Neut # (Auto) Lymph # (Auto) [place] # (Auto) Eos # (Auto) Baso # (Auto) Immature Gran # (Auto) POC Sodium Sodium POC Potassium Potassium POC Chloride Chloride Carbon Dioxide POC Total CO2 Anion Gap POC Anion Gap POC BUN BUN Creatinine POC Creatinine Est Cr Clr Drug Dosing Est GFR ( Amer) Est GFR (Non-Af Amer) BUN/Creatinine Ratio Glucose POC Glucose 208 H 307 H* 164 H POC Glucose (other) Calcium POC Ioniz Calcium Bessy Phosphorus Magnesium Total Bilirubin AST ALT Alkaline Phosphatase Total Protein Albumin Globulin Albumin/Globulin Ratio 09/07/21 09/07/21 09/07/21 16:29 18:05 20:24 WBC RBC Hgb POC Hgb Hct POC Hct MCV MCH MCHC RDW Std Deviation RDW Coeff of Umair Plt Count MPV Immature Gran % (Auto) Neut % (Auto) Lymph % (Auto) [place] % (Auto) Eos % (Auto) Baso % (Auto) Neut # (Auto) Lymph # (Auto) [place] # (Auto) Eos # (Auto) Baso # (Auto) Immature Gran # (Auto) POC Sodium Sodium POC Potassium Potassium 3.0 L POC Chloride Chloride Carbon Dioxide POC Total CO2 Anion Gap POC Anion Gap POC BUN BUN Creatinine POC Creatinine Est Cr Clr Drug Dosing Est GFR ( Amer) Est GFR (Non-Af Amer) BUN/Creatinine Ratio Glucose POC Glucose 174 H 163 H POC Glucose (other) Calcium POC Ioniz Calcium Bessy Phosphorus Magnesium Total Bilirubin AST ALT Alkaline Phosphatase Total Protein Albumin Globulin Albumin/Globulin Ratio 09/07/21 09/08/21 09/08/21 23:58 00:42 00:42 WBC RBC Hgb POC Hgb Hct POC Hct MCV MCH MCHC RDW Std Deviation RDW Coeff of Umair Plt Count MPV Immature Gran % (Auto) Neut % (Auto) Lymph % (Auto) [place] % (Auto) Eos % (Auto) Baso % (Auto) Neut # (Auto) Lymph # (Auto) [place] # (Auto) Eos # (Auto) Baso # (Auto) Immature Gran # (Auto) POC Sodium Sodium 137 POC Potassium Potassium 3.4 L POC Chloride Chloride 105 Carbon Dioxide 25 POC Total CO2 Anion Gap 7 POC Anion Gap POC BUN BUN 7 Creatinine 0.97 POC Creatinine Est Cr Clr Drug Dosing 58.3 Est GFR ( Amer) 73.1 Est GFR (Non-Af Amer) 63.0 BUN/Creatinine Ratio 7.2 L Glucose 166 H POC Glucose 175 H POC Glucose (other) Calcium 7.5 L POC Ioniz Calcium Bessy Phosphorus Magnesium Cancelled 1.8 Total Bilirubin AST ALT Alkaline Phosphatase Total Protein Albumin Globulin Albumin/Globulin Ratio 09/08/21 03:12 WBC RBC Hgb POC Hgb Hct POC Hct MCV MCH MCHC RDW Std Deviation RDW Coeff of Umair Plt Count MPV Immature Gran % (Auto) Neut % (Auto) Lymph % (Auto) [place] % (Auto) Eos % (Auto) Baso % (Auto) Neut # (Auto) Lymph # (Auto) [place] # (Auto) Eos # (Auto) Baso # (Auto) Immature Gran # (Auto) POC Sodium Sodium POC Potassium Potassium POC Chloride Chloride Carbon Dioxide POC Total CO2 Anion Gap POC Anion Gap POC BUN BUN Creatinine POC Creatinine Est Cr Clr Drug Dosing Est GFR ( Amer) Est GFR (Non-Af Amer) BUN/Creatinine Ratio Glucose POC Glucose 210 H POC Glucose (other) Calcium POC Ioniz Calcium Bessy Phosphorus Magnesium Total Bilirubin AST ALT Alkaline Phosphatase Total Protein Albumin Globulin Albumin/Globulin Ratio PG Care Time/CCT Total # of Minutes Spent Total Time Spent with Patient: Total time spent is greater than 50% in coordination of care (as documented) at patient's floor/unit and/or counseling patient: Coding Level of Care Code 28081 Subseq Hosp Care Lvl 3 Diagnoses Hypokalemia E87.6 Hypomagnesemia E83.42 Vertigo R42 Impetigo, unspecified L01.00 Dysphagia R13.10 Nausea R11.0 Low back pain M54.5 Hypothyroidism E03.9 Hypertension I10 Tobacco abuse Z72.0 Dyslipidemia E78.5 Diabetes type 2, uncontrolled E11.65 CAD (coronary artery disease) I25.10 Coronary Disease-Associated Artery/Lesion type: [place] artery [place] vs. transplanted heart: [place] heart Associated angina: unspecified whether angina present DVT prophylaxis Z29.9 (1) CAD (coronary artery disease) Coronary Disease-Associated Artery/Lesion type: [place] artery [place] vs. transplanted heart: [place] heart Associated angina: unspecified whether angina present Qualified Code(s): I25.10 - Atherosclerotic heart disease of [place] coronary artery without angina pectoris
[2021-09-07] MEDS: POTASSIUM CHLORIDE CRTAB 20 MEQ TABCR PO SCH ×2 (14:23→20:46)
[2021-09-07] MEDS: INSULIN ASPART PER UNIT SC SCH ×3 (14:23→22:05)
--- NOTE | 2021-09-07 14:38 | Fluoroscopy Report ---
FL video swallow HISTORY: dysphagia TECHNIQUE: Video fluoroscopic evaluation of swallowing was performed in the AP and lateral projection s by the speech pathology staff. The patient is fed nectar-thick and thin liquid barium, a barium coa mina wafer, and barium pudding. FLUOROSCOPY TIME: 1 minute. A cine loop submitted. COMPARISON STUDY: None. FINDINGS: There is normal hyoid excursion and epiglottic deflection. No significant penetration or as piration identified. Swallowing function is within normal limits. There is mild cricopharyngeal dysfu nction. IMPRESSION: 1. No aspiration identified. 2. Mild cricopharyngeal dysfunction. 3. Please see the speech pathologist report for detailed findings and recommendations. ACT 112: Negative or not required by law. Electronically signed by: Omid Pedroza M.D. 09/07/2021 2:36 PM
[2021-09-07] MEDS: ACETAMINOPHEN 500 MG TAB PO SCH ×2 (14:53→20:44)
[2021-09-07] MEDS: MUPIROCIN 2% OINT 22 GM TUBE EXT SCH ×2 (15:47→20:49)
[2021-09-07] MEDS: MECLIZINE 12.5 MG TAB PO SCH ×2 (15:47→20:48)
[2021-09-07] MEDS: MAGNESIUM OXIDE 400 MG TAB PO SCH (15:49)
[2021-09-07] MEDS ORDERED: MAGNESIUM SULFATE / D5W 1 GM/100 ML BAG IV ONE (19:45)
[2021-09-07] MEDS ORDERED: POTASSIUM CHLORIDE / WTR 10 MEQ/100 ML PLCT IV ONE (20:00)
[2021-09-07] MEDS: ATORVASTATIN 40 MG TAB PO SCH (20:44)
[2021-09-07] MEDS: PANTOprazole 40 MG TAB PO SCH (20:45)
[2021-09-07] MEDS: fluvoxaMINE MALEATE 50 MG TAB PO SCH (20:45)
[2021-09-07] MEDS ORDERED: LEVOTHYROXINE SODIUM 88 MCG TABLET PO SCH (21:00)
--- NOTE | 2021-09-07 23:54 | Billing Data ---
Date of Service September 07, 2021 Coding Level of Care Code 90611 Initial Inpt Care Lvl 3
[2021-09-08] MEDS: TICAGRELOR 90 MG TAB PO SCH ×2 (00:04→17:23)
[2021-09-08] MEDS: lisinopril 20 MG TAB PO SCH ×2 (00:04→17:22)
[2021-09-08] MEDS: MAGNESIUM OXIDE 400 MG TAB PO SCH ×2 (00:04→17:22)
[2021-09-08] MEDS: FAMOTIDINE 20 MG TAB PO SCH ×2 (00:04→17:22)
[2021-09-08 01:41] LABS: BUN Creatinine Ratio 7.2 (10-20); Calcium 7.5 mg/dl (8.5-10.1); Creatinine Clr Calc Pharmacy 58.3 ml/min; Est GFR (African American) 73.1 ml/min; Magnesium 1.8 mg/dl (1.7-2.4); Potassium 3.4 mmol/L (3.5-5.1)
[2021-09-08] MEDS: LEVOTHYROXINE SODIUM 88 MCG TABLET PO SCH (05:54)
[2021-09-08] MEDS: INSULIN ASPART PER UNIT SC SCH ×4 (08:09→21:50)
[2021-09-08] MEDS: ACETAMINOPHEN 500 MG TAB PO SCH ×3 (08:10→20:09)
[2021-09-08] MEDS: SUCRALFATE 1 GM TAB PO SCH ×4 (08:10→20:08)
[2021-09-08] MEDS: MECLIZINE 12.5 MG TAB PO SCH ×2 (08:10→15:25)
[2021-09-08] MEDS: MUPIROCIN 2% OINT 22 GM TUBE EXT SCH ×2 (08:11→20:09)
[2021-09-08] MEDS: POTASSIUM CHLORIDE CRTAB 20 MEQ TABCR PO SCH ×3 (08:11→20:08)
[2021-09-08] MEDS: LANTUS PER UNIT CHARGE SQ SCH ×2 (08:16→21:50)
[2021-09-08] MEDS: ENOXAPARIN INJ 40 MG/0.4 ML SYR SQ SCH (08:34)
[2021-09-08] MEDS: ONDANSETRON INJ 2 MG/ML 2 ML VIAL IV PRN (09:33)
--- NOTE | 2021-09-08 09:53 | Electrocardiogram Report ---
Test Reason : Blood Pressure : / mmHG Vent. Rate : 086 BPM Atrial Rate : 086 BPM P-R Int : 154 ms QRS Dur : 074 ms QT Int : 398 ms P-R-T Axes : 052 048 054 degrees QTc Int : 476 ms Normal sinus rhythm Nonspecific ST abnormality When compared with ECG of 07-SEP-2021 05:50, QT has shortened Confirmed by Robel Martinez ([id number]) on 09/08/2021 9:53:32 AM Referred By: REFERRED SELF Confirmed By:Robel Martinez
[2021-09-08] MEDS ORDERED: LORazepam 0.5 MG TAB PO STA (13:14)
[2021-09-08] MEDS ORDERED: GADOBUTROL 10ML VIAL IV ONE (14:21)
--- NOTE | 2021-09-08 19:06 | Magnetic Resonance Report ---
MRI OF THE BRAIN COMBO INTERNAL AUDITORY CANAL PROTOCOL CLINICAL HISTORY: Acute on chronic vertigo. COMPARISON STUDY: CT of the brain dated 04/13/2021. TECHNIQUE: MRI of the brain was performed utilizing various T1 and T2-weighted sequences in the axial , sagittal, and coronal planes. Contrast-enhanced sequences were acquired following the administratio n of 8 cc of Gadavist. Additional high-resolution imaging was performed through the skull base both p re and post contrast to assess the internal auditory canals. FINDINGS: Brain parenchyma: There is age-related involutional change noting minimal microangiopathic disease. T here is no hemorrhage or mass effect. There is no restricted diffusion to suggest acute ischemia. No enhancing mass lesion is identified on the postcontrast images. Rodríguez-white matter differentiation is preserved. No extra-axial fluid collection is seen. The cerebellar tonsils are normal in configuratio n. Ventricles, sulci, and cisterns: Prominent secondary to involutional change. Internal auditory canals: No enhancing mass lesion is seen in the cerebellopontine angle bilaterally. There is no mass or abnormal enhancement along the course of the internal auditory canals. The middl e ear structures are normal as visualized. The trigeminal nerves are normal and symmetric. Pituitary and sella: Unremarkable. Intracranial vasculature: Normal flow voids are maintained at the skull base. Orbits: The bony orbits are grossly intact. Orbital contents are normal in appearance. Sinuses and mastoids: Secretions are noted in the sphenoid sinuses. The remaining paranasal sinuses a re clear, as are the mastoid air cells. Calvarium: Unremarkable. Cervical cord: Partially visualized cervical spinal cord is normal in morphology and signal intensity . IMPRESSION: 1. No acute intracranial abnormality. 2. Unremarkable MRI examination of the internal auditory canals. ACT 112: Negative or not required by law. Electronically signed by: Lalito Cisse M.D. 09/08/2021 7:03 PM
[2021-09-08] MEDS: fluvoxaMINE MALEATE 50 MG TAB PO SCH (20:08)
[2021-09-08] MEDS: PANTOprazole 40 MG TAB PO SCH (20:08)
[2021-09-08] MEDS: ATORVASTATIN 40 MG TAB PO SCH (20:08)
[2021-09-08] MEDS: MECLIZINE HCL 25 MG TAB PO SCH (20:28)
--- NOTE | 2021-09-08 20:35 | XRay Report ---
KUB CLINICAL HISTORY: Generalized abdominal pain. Constipation. FINDINGS: 3 AP supine abdominal radiographs are compared to study dated 07/09/2021 and correlated with abdominal CT dated 09/07/2021. There is a nonobstructed abdominal bowel gas pattern. Residual enteric contrast is noted in the colon. There is mild colonic fecal retention. Enteric contrast outlines lef t-sided colonic diverticula. No evidence of intraperitoneal free air is seen on these supine images. Cholecystectomy clips are noted in the right upper quadrant. There are no abnormal abdominal calcific ations. The skeletal structures are osteopenic and appear intact. IMPRESSION: No acute abnormality is identified. See above. Electronically signed by: Lalito Cisse M.D. 09/08/2021 8:33 PM
[2021-09-09] MEDS: lisinopril 20 MG TAB PO SCH ×2 (00:07→17:03)
[2021-09-09] MEDS: FAMOTIDINE 20 MG TAB PO SCH ×2 (00:07→17:04)
[2021-09-09] MEDS: TICAGRELOR 90 MG TAB PO SCH ×2 (00:08→17:04)
[2021-09-09] MEDS: MAGNESIUM OXIDE 400 MG TAB PO SCH ×2 (00:08→17:04)
[2021-09-09] MEDS: LEVOTHYROXINE SODIUM 88 MCG TABLET PO SCH (06:09)
[2021-09-09] MEDS: INSULIN ASPART PER UNIT SC SCH ×4 (07:57→21:20)
[2021-09-09] MEDS: POTASSIUM CHLORIDE CRTAB 20 MEQ TABCR PO SCH (07:58)
[2021-09-09] MEDS: ACETAMINOPHEN 500 MG TAB PO SCH ×3 (07:58→20:57)
[2021-09-09] MEDS: MECLIZINE HCL 25 MG TAB PO SCH ×3 (07:58→20:57)
[2021-09-09] MEDS: ONDANSETRON INJ 2 MG/ML 2 ML VIAL IV PRN (07:58)
[2021-09-09] MEDS: SUCRALFATE 1 GM TAB PO SCH ×4 (07:58→20:57)
[2021-09-09] MEDS: LANTUS PER UNIT CHARGE SQ SCH ×2 (08:00→21:20)
[2021-09-09] MEDS: ENOXAPARIN INJ 40 MG/0.4 ML SYR SQ SCH (08:00)
[2021-09-09] MEDS: MUPIROCIN 2% OINT 22 GM TUBE EXT SCH ×2 (08:00→20:58)
[2021-09-09 08:39] LABS: BUN Creatinine Ratio 13.2 (10-20); Calcium 8.3 mg/dl (8.5-10.1); Creatinine Clr Calc Pharmacy 83.8 ml/min; Est GFR (African American) 109.4 ml/min; Est GFR (Non-African American) 94.4 ml/min; Potassium 4.3 mmol/L (3.5-5.1)
--- NOTE | 2021-09-09 09:17 | Hospitalist Progress Note ---
Date of Service September 08, 2021 Assessment & Plan (1) Hypokalemia: Plan: Severe. Multiple episodes of such with several requiring admission. Previously thought to be due to poor oral intake, vomiting, and HCTZ use. During recent hospital stay the HCTZ was stopped but it was uncertain if she was even on the HCTZ. [id number] she presented again with severe hypokalemia. Renin/stefano levels sent/pending. K nearly normal today. Should be normal tomorrow. Keep mag wnl. BMP am. (2) Hypomagnesemia: Plan: Levels this admission wnl. Cont PO mag supplementation. (3) Vertigo: Plan: Numerous episodes over the last month. short-lived, <1 min duration during attacks. Vertigo quite bothersome. MRI brain/auditory canals neg for CVA, acoustic neuroma, etc. Increase meclizine to 25mg TID today due to ongoing symptoms. PT vestibular evaluation completed -- eleanor-hallpike was +. Treated with Artemio with improved symptoms. This is diagnostic of BPV. (4) Impetigo, unspecified: Plan: nose. bactroban BID to both nares x 7-10 days. (5) Dysphagia: Plan: appreciate GI consultation & speech eval. s/p video swallow. cricopharyngeal dysfunction noted on video swallow today. easy to chew diet. EGD - 03/2021 - esophagus normal, mild gastritis only. MRCP 03/2021 without CBD stone/abnormalities. NUMEROUS Ct abd/pelvis negative except atrophic pancreas. (6) Nausea: Plan: 05/2021 - Gastric emptying study normal. Multiple CT abd/pelvis, MRCP, KUB x-rays (done today - normal), and now MRI brain negative. Atrophy of pancreas seen on CTs - consider creon trial given her chronic diarrhea. Only other test would be an ERCP looking for CBD issues that aren't being detected on MRCP. re-eval tomorrow. (7) Low back pain: Plan: previous t-spine CT imaging in March with SURESHD. CTA chest in March also unremarkable. 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 cont lantus BID. cont novolog - tighten her correction factor and carb ratio. (13) CAD (coronary artery disease): Plan: nothing ischemic at this time. cont statin, ELHAM, brilenta. (14) DVT prophylaxis: Plan: lovenox daily Plan PT, OT sincere appreciated Admission and Anticipated Discharge Date Admission Date: September 06, 2021 Subjective patient states she is still having dizziness/spinning but "a little better" 2 episodes today since waking up - each lasted 30 seconds or less; both brought on by head movements/standing up following breakfast this am had mild right-sided discomfort and nausea was given anti-emetics by nursing about 0930am with improvement she states the abdominal discomfort has been present for a few weeks usually worsened by eating fluctuating bowel habits - constipation and diarrhea - latter more common no vomiting tolerating meals asks if it's ok to have Sammy food cake for dessert tele overnight wnl Review of Systems Review of Systems: gen - no fever cv - no cp, no orthopnea pulm - no cough musculo - ongoing mid-thoracic back pain GI - see HPI HENT - nose sores ongoing Physical Exam Physical Exam: gen - NAD, looks similar to yesterday mouth - no thrush nose - impetiginous lesion over philtrum (yellow, crusty lesion) - improved today neck - no JVD heart - RRR, s1 s2, no murmur lungs - CTA b/l abd - soft ND BS+ no HSM; minimal tenderness right side of abdomen ext - no edema, pulses 2+ b/l Results & Data Results & Data ([facility]) Vital Signs (Past 12 Hours) Vital Signs Temp Pulse Pulse Resp BP Pulse Ox Pulse Ox 09/09/21 07:07 36.7 C 94 H 19 162/90 H 96 09/09/21 03:24 82 09/09/21 03:19 36.8 C 88 18 160/89 H 97 09/09/21 00:00 98 09/08/21 22:54 36.8 C 87 18 123/79 96 O2 Del Method O2 Del Method 09/09/21 07:07 Room Air 09/09/21 03:24 09/09/21 03:19 Room Air 09/09/21 00:00 Room Air 09/08/21 22:54 Room Air Laboratory Results K 3.4 Cr wnl Diagnostic Findings Internal Auditory Canal MRI 09/08/21 12:38 MRI OF THE BRAIN COMBO INTERNAL AUDITORY CANAL PROTOCOL CLINICAL HISTORY: Acute on chronic vertigo. COMPARISON STUDY: CT of the brain dated 04/13/2021. TECHNIQUE: MRI of the brain was performed utilizing various T1 and T2-weighted sequences in the axial, sagittal, and coronal planes. Contrast-enhanced sequences were acquired following the administration of 8 cc of Gadavist. Additional high-resolution imaging was performed through the skull base both pre and post contrast to assess the internal auditory canals. FINDINGS: Brain parenchyma: There is age-related involutional change noting minimal microangiopathic disease. There is no hemorrhage or mass effect. There is no restricted diffusion to suggest acute ischemia. No enhancing mass lesion is identified on the postcontrast images. Rodríguez-white matter differentiation is preserved. No extra-axial fluid collection is seen. The cerebellar tonsils are normal in configuration. Ventricles, sulci, and cisterns: Prominent secondary to involutional change. Internal auditory canals: No enhancing mass lesion is seen in the cerebellopontine angle bilaterally. There is no mass or abnormal enhancement along the course of the internal auditory canals. The middle ear structures are normal as visualized. The trigeminal nerves are normal and symmetric. Pituitary and sella: Unremarkable. Intracranial vasculature: Normal flow voids are maintained at the skull base. Orbits: The bony orbits are grossly intact. Orbital contents are normal in appearance. Sinuses and mastoids: Secretions are noted in the sphenoid sinuses. The remaining paranasal sinuses are clear, as are the mastoid air cells. Calvarium: Unremarkable. Cervical cord: Partially visualized cervical spinal cord is normal in morphology and signal intensity. IMPRESSION: 1. No acute intracranial abnormality. 2. Unremarkable MRI examination of the internal auditory canals. ACT 112: Negative or not required by law. Electronically signed by: Lalito Cisse M.D. 09/08/2021 7:03 PM KUB X-Ray 09/08/21 18:04 KUB CLINICAL HISTORY: Generalized abdominal pain. Constipation. FINDINGS: 3 AP supine abdominal radiographs are compared to study dated 07/09/2021 and correlated with abdominal CT dated 09/07/2021. There is a nonobstructed abdominal bowel gas pattern. Residual enteric contrast is noted in the colon. There is mild colonic fecal retention. Enteric contrast outlines lef t-sided colonic diverticula. No evidence of intraperitoneal free air is seen on these supine images. Cholecystectomy clips are noted in the right upper quadrant. There are no abnormal abdominal calcifications. The skeletal structures are osteopenic and appear intact. IMPRESSION: No acute abnormality is identified. See above. Electronically signed by: Lalito Cisse M.D. 09/08/2021 8:33 PM PG Care Time/CCT Total # of Minutes Spent Total Time Spent with Patient: Total time spent is greater than 50% in coordination of care (as documented) at patient's floor/unit and/or counseling patient: Coding Level of Care Code 57000 Subseq Hosp Care Lvl 3 Diagnoses Hypokalemia E87.6 Hypomagnesemia E83.42 Vertigo R42 Impetigo, unspecified L01.00 Dysphagia R13.10 Nausea R11.0 Low back pain M54.5 Hypothyroidism E03.9 Hypertension I10 Tobacco abuse Z72.0 Dyslipidemia E78.5 Diabetes type 2, uncontrolled E11.65 CAD (coronary artery disease) I25.10 Coronary Disease-Associated Artery/Lesion type: [place] artery [place] vs. transplanted heart: [place] heart Associated angina: unspecified whether angina present DVT prophylaxis Z29.9 (1) CAD (coronary artery disease) Coronary Disease-Associated Artery/Lesion type: [place] artery [place] vs. transplanted heart: [place] heart Associated angina: unspecified whether angina present Qualified Code(s): I25.10 - Atherosclerotic heart disease of [place] coronary artery without angina pectoris
[2021-09-09] MEDS: PANCREAZE (LIPASE 10,500U) CAP PO SCH ×3 (10:18→17:05)
[2021-09-09 18:14] LABS: Influenza A virus by PCR Negative (Neg); Influenza B virus by PCR Negative (Neg); RSV by PCR Negative (Neg); SARS CoV2 RNA(COVID-19) InHosp NEGATIVE (Negative)
[2021-09-09] MEDS: ceFAZolin 1000MG 1,000 MG/7.5 ML SYR IV SCH (18:34)
[2021-09-09] MEDS: DOXYCYCLINE HYCLATE 100 MG in DEXTROSE 5% 100 ML IV SCH (18:34)
[2021-09-09] MEDS: ATORVASTATIN 40 MG TAB PO SCH (20:54)
[2021-09-09] MEDS: PANTOprazole 40 MG TAB PO SCH (20:57)
[2021-09-09] MEDS: fluvoxaMINE MALEATE 50 MG TAB PO SCH (20:57)
--- NOTE | 2021-09-09 21:05 | Hospitalist Progress Note ---
Date of Service September 09, 2021 Assessment & Plan (1) Hypokalemia: Plan: Severe. Multiple episodes of such with several requiring admission. Previously thought to be due to poor oral intake, vomiting, and HCTZ use. During recent hospital stay the HCTZ was stopped but it was uncertain if she was even on the HCTZ. [id number] she presented again with severe hypokalemia. Renin/stefano levels sent/pending. K has normalized with supplementation/replacement. Lower K dose to 40meq/day. BMP in am. Mag is normal. (2) Hypomagnesemia: Plan: Levels this admission wnl. Cont PO mag supplementation. (3) Vertigo: Plan: Numerous episodes over the last month. short-lived, <1 min duration during attacks. Vertigo quite bothersome. MRI brain/auditory canals neg for CVA, acoustic neuroma, etc. Cont meclizine to 25mg TID. PT vestibular evaluation completed -- eleanor-hallpike was +. Treated with Artemio with improved symptoms. This is diagnostic of BPV. (4) Impetigo, unspecified: Plan: nose. WORSE. I believe she needs systemic abx -- given her diabetes she runs the risk of severe infection. start ancef IV. start doxy IV (to cover MRSA). cont bactroban BID to both nares x 10 days. pain meds prn. (5) Dysphagia: Plan: appreciate GI consultation & speech eval. s/p video swallow. cricopharyngeal dysfunction noted on video swallow today. easy to chew diet. EGD - 03/2021 - esophagus normal, mild gastritis only. MRCP 03/2021 without CBD stone/abnormalities. NUMEROUS Ct abd/pelvis negative except atrophic pancreas. (6) Nausea: Plan: 05/2021 - Gastric emptying study normal. Multiple CT abd/pelvis, MRCP, KUB x-rays, MRI brain, cortisol - all normal or negative except ?dropped gallstones on most recent CT sitting next to liver. Uncertain if that could cause issues. Atrophy of pancreas seen on CTs - consider creon trial given her chronic diarrhea. EGD/colonoscopy 2021 unremarkable except gastritis. Only other test would be an ERCP looking for CBD issues that aren't being detected on MRCP. I spoke with Dr Palma about this - he [facility]w [facility]. (7) Low back pain: Plan: previous t-spine CT imaging in March with DJD. CTA chest in March also unremarkable. (8) Hypothyroidism: Plan: TSH 06/2021 wnl Cont synthroid (9) Hypertension: Plan: Cont ELHAM (10) Tobacco abuse: Plan: debt counselor to quit (11) Dyslipidemia: Plan: lipitor 80mg daily (12) Diabetes type 2, uncontrolled: Plan: 10.7% HbA1C in June 2021. cont lantus BID. cont novolog. control satisfactory at this time. (13) CAD (coronary artery disease): Plan: nothing ischemic at this time. cont statin, ELHAM, brilenta. (14) DVT prophylaxis: Plan: lovenox daily (15) Severe protein-calorie malnutrition: Plan: 12-13kg of weight loss over the last few months due to pancreatic insufficiency? (mod pancreatic atrophy on CTs) chronic vomiting and poor appetite? other pathology? Plan PT, OT evals appreciated updated pt's brother by telephone this afternoon performed another COVID test because of headache, fatigue, runny nose -- negative; RSV/flu also negative Admission and Anticipated Discharge Date Admission Date: September 06, 2021 Subjective patient continues with the following -- 1. nasal sores - worse today 2. runny nose 3. headache "all over" 4. right-sided abdominal discomfort with nausea, bloating, burping; despite such she continues to want to eat; no vomiting by report 5. fatigue and feeling very tired Denies cough or dyspnea tele overnight wnl we had lengthy discussion today at bedside about #4, her uncontrolled diabetes (she doesn't like to be in the low 100s - feels it is too low - questions why we are giving her "so much insulin") Review of Systems Review of Systems: gen - no fevers or chills cv - no cp, no orthopnea pulm - no wheezing or cough GI - no vomiting, no diarrhea neuro - no vertigo today Physical Exam Physical Exam: gen - NAD, looks similar to yesterday, burping at times mouth - no thrush, MMM nose - impetiginous lesion over philtrum (yellow, crusty lesion); several crusty sores in both nares; there is erythema with swelling of the nasal septal region distally; very tender to touch this location neck - no JVD heart - RRR, s1 s2, no murmur lungs - CTA b/l abd - soft ND BS+ no HSM; mild tenderness right side of abdomen ext - no edema, pulses 2+ b/l psych - awake, alert, oriented x 3 Results & Data Results & Data ([facility]) Vital Signs (Past 12 Hours) Vital Signs Temp Pulse Resp BP Pulse Ox O2 Del Method 09/09/21 19:43 36.6 C 91 H 20 164/91 H 98 Room Air 09/09/21 16:08 36.4 C L 88 20 155/92 H 97 Room Air 09/09/21 11:01 36.3 C L 81 19 159/87 H 97 Room Air Laboratory Results Laboratory Results - last 24 hr 09/09/21 09/09/21 09/09/21 04:02 07:06 08:00 Sodium 134 L Potassium 4.3 D Chloride 103 Carbon Dioxide 24 Anion Gap 7 BUN 9 Creatinine 0.68 Est Cr Clr Drug Dosing 83.8 Est GFR ( Amer) 109.4 Est GFR (Non-Af Amer) 94.4 BUN/Creatinine Ratio 13.2 Glucose 195 H POC Glucose 189 H 199 H Calcium 8.3 L Cortisol AM Sample SARS-CoV-2 (PCR) Influenza Type A (PCR) Influenza Type B (PCR) RSV (RT-PCR) 09/09/21 09/09/21 09/09/21 08:00 11:08 16:12 Sodium Potassium Chloride Carbon Dioxide Anion Gap BUN Creatinine Est Cr Clr Drug Dosing Est GFR ( Amer) Est GFR (Non-Af Amer) BUN/Creatinine Ratio Glucose POC Glucose 152 H 102 H Calcium Cortisol AM Sample 15.74 SARS-CoV-2 (PCR) Influenza Type A (PCR) Influenza Type B (PCR) RSV (RT-PCR) 09/09/21 09/09/21 16:30 20:26 Sodium Potassium Chloride Carbon Dioxide Anion Gap BUN Creatinine Est Cr Clr Drug Dosing Est GFR ( Amer) Est GFR (Non-Af Amer) BUN/Creatinine Ratio Glucose POC Glucose 220 H Calcium Cortisol AM Sample SARS-CoV-2 (PCR) NEGATIVE Influenza Type A (PCR) Negative Influenza Type B (PCR) Negative RSV (RT-PCR) Negative PG Care Time/CCT Total # of Minutes Spent Total Time Spent with Patient: Total time spent is greater than 50% in coordination of care (as documented) at patient's floor/unit and/or counseling patient: Coding Level of Care Code 59249 Subseq Hosp Care Lvl 3 Diagnoses Hypokalemia E87.6 Hypomagnesemia E83.42 Vertigo R42 Impetigo, unspecified L01.00 Dysphagia R13.10 Nausea R11.0 Low back pain M54.5 Hypothyroidism E03.9 Hypertension I10 Tobacco abuse Z72.0 Dyslipidemia E78.5 Diabetes type 2, uncontrolled E11.65 CAD (coronary artery disease) I25.10 Associated angina: unspecified whether angina present Coronary Disease-Associated Artery/Lesion type: [place] artery [place] vs. transplanted heart: [place] heart DVT prophylaxis Z29.9 Severe protein-calorie malnutrition E43 (1) CAD (coronary artery disease) Associated angina: unspecified whether angina present Coronary Disease- Associated Artery/Lesion type: [place] artery [place] vs. transplanted heart: [place] heart Qualified Code(s): I25.10 - Atherosclerotic heart disease of [place] coronary artery without angina pectoris
[2021-09-10] MEDS: TICAGRELOR 90 MG TAB PO SCH ×2 (00:32→17:20)
[2021-09-10] MEDS: MAGNESIUM OXIDE 400 MG TAB PO SCH ×2 (00:32→17:20)
[2021-09-10] MEDS: FAMOTIDINE 20 MG TAB PO SCH ×2 (00:32→17:20)
[2021-09-10] MEDS: lisinopril 20 MG TAB PO SCH ×2 (00:32→17:20)
[2021-09-10] MEDS: ceFAZolin 1000MG 1,000 MG/7.5 ML SYR IV SCH ×3 (01:54→17:28)
[2021-09-10] MEDS: DICLOFENAC SOD 1% GEL 100 GM TUBE EXT SCH ×5 (01:54→20:25)
[2021-09-10] MEDS: DOXYCYCLINE HYCLATE 100 MG in DEXTROSE 5% 100 ML IV SCH ×2 (05:48→17:29)
[2021-09-10] MEDS: LEVOTHYROXINE SODIUM 88 MCG TABLET PO SCH (05:48)
[2021-09-10] MEDS: ACETAMINOPHEN 500 MG TAB PO SCH ×3 (06:13→20:29)
[2021-09-10 07:52] LABS: BUN Creatinine Ratio 14.5 (10-20); Calcium 8.5 mg/dl (8.5-10.1); Creatinine Clr Calc Pharmacy 82.1 ml/min; Est GFR (African American) 108.9 ml/min; Potassium 4.1 mmol/L (3.5-5.1)
[2021-09-10] MEDS: PANCREAZE (LIPASE 10,500U) CAP PO SCH ×3 (07:52→17:23)
[2021-09-10] MEDS: SUCRALFATE 1 GM TAB PO SCH ×4 (07:52→20:24)
[2021-09-10] MEDS: MECLIZINE HCL 25 MG TAB PO SCH (07:53)
[2021-09-10] MEDS: MUPIROCIN 2% OINT 22 GM TUBE EXT SCH ×2 (07:54→20:26)
[2021-09-10] MEDS: ENOXAPARIN INJ 40 MG/0.4 ML SYR SQ SCH (07:54)
[2021-09-10] MEDS: LANTUS PER UNIT CHARGE SQ SCH ×2 (07:58→21:01)
[2021-09-10] MEDS: INSULIN ASPART PER UNIT SC SCH ×4 (07:58→21:00)
[2021-09-10] MEDS ORDERED: MECLIZINE HCL 25 MG TAB PO PRN (09:11)
[2021-09-10] MEDS: METOCLOPRAMIDE HCL 5 MG TABLET PO SCH ×3 (12:26→20:24)
[2021-09-10] MEDS ORDERED: LORazepam 0.5 MG TAB PO STA (16:27)
[2021-09-10] MEDS ORDERED: LORazepam 0.5 MG TAB ONE (16:34)
--- NOTE | 2021-09-10 17:39 | Magnetic Resonance Report ---
MR MRCP CLINICAL HISTORY: R abd pain, nausea; eval CBD abnormalities . Status post cholecystectomy TECHNIQUE: Multiplanar multisequence MR images were obtained of the abdomen, followed by reconstruct ion of MRCP imaging. COMPARISON: 04/11/[address] of the abdomen and pelvis from 07/01/2021 and 09/07/2021 FINDINGS: Liver: There is homogeneous signal intensity seen within the liver. No mass lesions are seen. There i s no evidence for intrahepatic or duct dilatation. There is evidence for mild hepatomegaly. Gallbladder: The patient is again status post cholecystectomy. Spleen: There is homogeneous signal throughout the splenic parenchyma. No mass lesions are seen. Pancreas: The pancreas is homogeneous in signal There is no evidence for a mass lesion. Pancreatic at rophy is again seen. Kidneys: There is homogeneous signal throughout the renal parenchyma bilaterally. There is again evid ence for a left renal cyst. Adrenal glands: There is homogeneous signal demonstrated with no gross mass seen. Abdominal cavity: There is no gross bowel dilatation. There is no evidence for ascites or adenopathy. The aorta is normal in caliber. The visualized osseous structures, demonstrate no evidence of abnormal signal intensity. MRCP: The common bile duct is again of normal in course and caliber. There is no evidence for dilata tion. There is no intraluminal filling defects or evidence for choledocholithiasis. There is no int rahepatic or duct dilatation. The pancreatic duct is normal in course and caliber. IMPRESSION: 1. No evidence of biliary obstruction. ACT 112: Negative or not required by law. Electronically signed by: Renaldo Bone M.D. 09/10/2021 5:38 PM
[2021-09-10] MEDS: ATORVASTATIN 40 MG TAB PO SCH (20:24)
[2021-09-10] MEDS: fluvoxaMINE MALEATE 50 MG TAB PO SCH (20:25)
[2021-09-10] MEDS: PANTOprazole 40 MG TAB PO SCH (20:25)
--- NOTE | 2021-09-10 20:25 | Hospitalist Progress Note ---
Date of Service September 10, 2021 Assessment & Plan (1) Hypokalemia: Plan: Severe. Multiple episodes of such with several requiring admission. Previously thought to be due to poor oral intake, vomiting, and HCTZ use. During recent hospital stay the HCTZ was stopped but it was uncertain if she was even on the HCTZ. [id number] she presented again with severe hypokalemia. Renin/stefano levels sent/pending. K has normalized with supplementation/replacement. Cont KCL 40meq/day. BMP in am. Mag is normal. (2) Hypomagnesemia: Plan: Levels this admission wnl. Cont PO mag supplementation. (3) Vertigo: Plan: IMPROVED. Cont meclizine to 25mg TID prn. Numerous episodes over the last month. short-lived, <1 min duration during attacks. Vertigo quite bothersome. MRI brain/auditory canals neg for CVA, acoustic neuroma, etc. PT vestibular evaluation completed -- eleanor-hallpike was +. Treated with Artemio with improved symptoms. This is diagnostic of BPV. (4) Impetigo, unspecified: Plan: NASAL. Cont ancef IV. Cont doxy IV (to cover MRSA). cont bactroban BID to both nares x 10 days. pain meds prn. (5) Dysphagia: Plan: appreciate GI consultation & speech eval. s/p video swallow. cricopharyngeal dysfunction noted on video swallow today. easy to chew diet. EGD - 03/2021 - esophagus normal, mild gastritis only. MRCP 03/2021 without CBD stone/abnormalities. NUMEROUS Ct abd/pelvis negative except atrophic pancreas. (6) Nausea: Plan: 05/2021 - Gastric emptying study normal. Multiple CT abd/pelvis, MRCP, KUB x-rays, MRI brain, cortisol - all normal or negative except ?dropped gallstones on most recent CT sitting next to liver. Uncertain if that could cause issues. Atrophy of pancreas seen on CTs - creon trial given her chronic diarrhea but this has not helped her nausea/abd bloating/abd pain. EGD/colonoscopy 2021 unremarkable except gastritis. Only other test would be an ERCP looking for CBD issues that aren't being detected on MRCP. I spoke with GI this am -- they advised repeat MRCP. This was completed and was normal - no CBD abnormalities. GI also advised reglan 5mg ac/hs -- you can still have diabetic gastroparesis despite negative gastric emptying study. Reglan started today. re-eval in am. (7) Low back pain: Plan: previous t-spine CT imaging in March with DJD. CTA chest in March also unremarkable. (8) Hypothyroidism: Plan: TSH 06/2021 wnl Cont synthroid (9) Hypertension: Plan: Cont ELHAM (10) Tobacco abuse: Plan: industrial relations counselor to quit (11) Dyslipidemia: Plan: lipitor 80mg daily (12) Diabetes type 2, uncontrolled: Plan: 10.7% HbA1C in June 2021. cont lantus BID. cont novolog. control satisfactory at this time. (13) CAD (coronary artery disease): Plan: nothing ischemic at this time. cont statin, ELHAM, brilenta. (14) DVT prophylaxis: Plan: lovenox daily (15) Severe protein-calorie malnutrition: Plan: 12-13kg of weight loss over the last few months due to pancreatic insufficiency? (mod pancreatic atrophy on CTs) chronic vomiting and poor appetite? other pathology? Plan PT, OT evals appreciated updated pt's brother by phone 09/09/21 performed another COVID test 09/09 because of headache, fatigue, runny nose -- negative; RSV/flu also negative Admission and Anticipated Discharge Date Admission Date: September 06, 2021 Subjective despite trial of creon she still is having right-sided abd discomfort, bloating, nausea however, did have normal BM - was not diarrhea spoke with GI - they recommended repeat MRCP to exclude CBD issues, and trial of reglan (as explained - you can still having diabetic gastroparesis despite normal gastric emptying study) no vomiting on full liquids diet headache improved today nasal pain continues but no worse than prior minimal vertigo this am with walking to bathroom but minimal tele overnight wnl Review of Systems Review of Systems: gen - no fevers or chills cv - no orthopnea, no cp pulm - no cough or dyspnea GI - no vomiting, no blood per rectum Physical Exam Physical Exam: gen - NAD, looks similar to yesterday, burping like previous visits mouth - no thrush, MMM nose - impetiginous lesion over philtrum (yellow, crusty lesion); several crusty sores in both nares; there is erythema with swelling of the nasal septal region distally but it looks better today (not as red); very tender to touch this location neck - no JVD heart - RRR, s1 s2, no murmur lungs - CTA b/l abd - soft ND BS+ no HSM; nontender today ext - no edema, pulses 2+ b/l psych - awake, alert, oriented x 3 Results & Data Results & Data ([facility]) Vital Signs (Past 12 Hours) Vital Signs Temp Pulse Resp BP Pulse Ox O2 Del Method 09/10/21 19:40 36.6 C 101 H 20 100/69 97 Room Air 09/10/21 15:54 36.6 C 100 H 20 119/82 96 Room Air 09/10/21 12:03 36.8 C 87 18 139/90 96 Room Air Laboratory Results Laboratory Results - last 24 hr 09/09/21 09/10/21 09/10/21 20:26 02:03 04:45 Sodium Potassium Chloride Carbon Dioxide Anion Gap BUN Creatinine Est Cr Clr Drug Dosing Est GFR ( Amer) Est GFR (Non-Af Amer) BUN/Creatinine Ratio Glucose POC Glucose 220 H 121 H 123 H Calcium 09/10/21 09/10/21 09/10/21 06:53 07:08 11:07 Sodium 134 L Potassium 4.1 Chloride 101 Carbon Dioxide 26 Anion Gap 7 BUN 10 Creatinine 0.69 Est Cr Clr Drug Dosing 82.1 Est GFR ( Amer) 108.9 Est GFR (Non-Af Amer) 94.0 BUN/Creatinine Ratio 14.5 Glucose 150 H POC Glucose 146 H 187 H Calcium 8.5 09/10/21 16:19 Sodium Potassium Chloride Carbon Dioxide Anion Gap BUN Creatinine Est Cr Clr Drug Dosing Est GFR ( Amer) Est GFR (Non-Af Amer) BUN/Creatinine Ratio Glucose POC Glucose 133 H Calcium Diagnostic Findings Cholangiopancreatography MRI 09/10/21 09:13 MR MRCP CLINICAL HISTORY: R abd pain, nausea; eval CBD abnormalities . Status post cholecystectomy TECHNIQUE: Multiplanar multisequence MR images were obtained of the abdomen, followed by reconstruction of MRCP imaging. COMPARISON: 04/11/[address] of the abdomen and pelvis from 07/01/2021 and 09/07/2021 FINDINGS: Liver: There is homogeneous signal intensity seen within the liver. No mass lesions are seen. There is no evidence for intrahepatic or duct dilatation. There is evidence for mild hepatomegaly. Gallbladder: The patient is again status post cholecystectomy. Spleen: There is homogeneous signal throughout the splenic parenchyma. No mass lesions are seen. Pancreas: The pancreas is homogeneous in signal There is no evidence for a mass lesion. Pancreatic atrophy is again seen. Kidneys: There is homogeneous signal throughout the renal parenchyma bilaterally. There is again evidence for a left renal cyst. Adrenal glands: There is homogeneous signal demonstrated with no gross mass seen. Abdominal cavity: There is no gross bowel dilatation. There is no evidence for ascites or adenopathy. The aorta is normal in caliber. The visualized osseous structures, demonstrate no evidence of abnormal signal intensity. MRCP: The common bile duct is again of normal in course and caliber. There is no evidence for dilatation. There is no intraluminal filling defects or eviden ce for choledocholithiasis. There is no intrahepatic or duct dilatation. The pancreatic duct is normal in course and caliber. IMPRESSION: 1. No evidence of biliary obstruction. ACT 112: Negative or not required by law. Electronically signed by: Renaldo Bone M.D. 09/10/2021 5:38 PM PG Care Time/CCT Total # of Minutes Spent Total Time Spent with Patient: Total time spent is greater than 50% in coordination of care (as documented) at patient's floor/unit and/or counseling patient: Coding Level of Care Code 73914 Subseq Hosp Care Lvl 3 Diagnoses Hypokalemia E87.6 Hypomagnesemia E83.42 Vertigo R42 Impetigo, unspecified L01.00 Dysphagia R13.10 Nausea R11.0 Low back pain M54.5 Hypothyroidism E03.9 Hypertension I10 Tobacco abuse Z72.0 Dyslipidemia E78.5 Diabetes type 2, uncontrolled E11.65 CAD (coronary artery disease) I25.10 Associated angina: unspecified whether angina present Coronary Disease-Associated Artery/Lesion type: [place] artery [place] vs. transplanted heart: [place] heart DVT prophylaxis Z29.9 Severe protein-calorie malnutrition E43 (1) CAD (coronary artery disease) Associated angina: unspecified whether angina present Coronary Disease- Associated Artery/Lesion type: [place] artery [place] vs. transplanted heart: [place] heart Qualified Code(s): I25.10 - Atherosclerotic heart disease of [place] coronary artery without angina pectoris
[2021-09-11] MEDS: FAMOTIDINE 20 MG TAB PO SCH ×2 (00:18→16:41)
[2021-09-11] MEDS: MAGNESIUM OXIDE 400 MG TAB PO SCH ×2 (00:18→16:42)
[2021-09-11] MEDS: lisinopril 20 MG TAB PO SCH ×3 (00:18→16:48)
[2021-09-11] MEDS: TICAGRELOR 90 MG TAB PO SCH ×2 (01:20→16:43)
[2021-09-11] MEDS: ceFAZolin 1000MG 1,000 MG/7.5 ML SYR IV SCH ×3 (01:21→17:37)
[2021-09-11] MEDS: DOXYCYCLINE HYCLATE 100 MG in DEXTROSE 5% 100 ML IV SCH ×2 (05:58→17:51)
[2021-09-11] MEDS: LEVOTHYROXINE SODIUM 88 MCG TABLET PO SCH (05:58)
[2021-09-11 08:00] LABS: BUN Creatinine Ratio 14.3 (10-20); Calcium 8.6 mg/dl (8.5-10.1); Creatinine Clr Calc Pharmacy 62.4 ml/min; Est GFR (African American) 78.9 ml/min; Est GFR (Non-African American) 68.1 ml/min; Potassium 3.7 mmol/L (3.5-5.1)
[2021-09-11] MEDS: METOCLOPRAMIDE HCL 5 MG TABLET PO SCH ×4 (08:08→20:55)
[2021-09-11] MEDS: PANCREAZE (LIPASE 10,500U) CAP PO SCH ×3 (08:09→16:43)
[2021-09-11] MEDS: ENOXAPARIN INJ 40 MG/0.4 ML SYR SQ SCH (08:09)
[2021-09-11] MEDS: SUCRALFATE 1 GM TAB PO SCH ×4 (08:09→20:55)
[2021-09-11] MEDS: DICLOFENAC SOD 1% GEL 100 GM TUBE EXT SCH ×4 (08:10→20:55)
[2021-09-11] MEDS: ACETAMINOPHEN 500 MG TAB PO SCH ×3 (08:12→20:53)
[2021-09-11] MEDS: MUPIROCIN 2% OINT 22 GM TUBE EXT SCH ×2 (08:13→20:55)
[2021-09-11] MEDS: ONDANSETRON INJ 2 MG/ML 2 ML VIAL IV PRN (08:13)
[2021-09-11] MEDS: INSULIN ASPART PER UNIT SC SCH ×4 (08:34→21:45)
[2021-09-11] MEDS: LANTUS PER UNIT CHARGE SQ SCH ×2 (08:35→21:45)
[2021-09-11] MEDS ORDERED: IBUPROFEN 200 MG TAB PO STA (11:00)
[2021-09-11] MEDS: POTASSIUM CHLORIDE CRTAB 20 MEQ TABCR PO SCH (11:11)
[2021-09-11] MEDS ORDERED: Nursing to Pharmacy Communication SCH (17:15)
--- NOTE | 2021-09-11 17:27 | Hospitalist Progress Note ---
Date of Service September 11, 2021 Assessment & Plan (1) Hypokalemia: Plan: Severe. Multiple episodes of such with several requiring admission. Previously thought to be due to poor oral intake, vomiting, and HCTZ use. During recent hospital stay the HCTZ was stopped but it was uncertain if she was even on the HCTZ. [id number] she presented again with severe hypokalemia. Renin/stefano levels sent/pending. K has normalized with supplementation/replacement. Cont KCL 40meq/day-reordered for today. BMP in am. Mag is normal. (2) Hypomagnesemia: Plan: Levels this admission wnl. Cont PO mag supplementation. (3) Vertigo: Plan: IMPROVED. Cont meclizine to 25mg TID prn. Numerous episodes over the last month. short-lived, <1 min duration during attacks. Vertigo quite bothersome. MRI brain/auditory canals neg for CVA, acoustic neuroma, etc. PT vestibular evaluation completed -- eleanor-hallpike was +. Treated with Artemio with improved symptoms. This is diagnostic of BPV. (4) Impetigo, unspecified: Plan: NASAL. Improving Cont ancef IV. Cont doxy IV (to cover MRSA). cont bactroban BID to both nares x 10 days. pain meds prn. (5) Dysphagia: Plan: appreciate GI consultation & speech eval. s/p video swallow. cricopharyngeal dysfunction noted on video swallow here easy to chew diet. EGD - 03/2021 - esophagus normal, mild gastritis only. MRCP 03/2021 without CBD stone/abnormalities. NUMEROUS Ct abd/pelvis negative except atrophic pancreas. (6) Nausea: Plan: 05/2021 - Gastric emptying study normal. Multiple CT abd/pelvis, MRCP, KUB x-rays, MRI brain, cortisol - all normal or negative except ?dropped gallstones on most recent CT sitting next to liver. Uncertain if that could cause issues. Atrophy of pancreas seen on CTs - creon trial given her chronic diarrhea but this has not helped her nausea/abd bloating/abd pain. EGD/colonoscopy 2021 unremarkable except gastritis. Only other test would be an ERCP looking for CBD issues that aren't being detected on MRCP. Previous hospitalist spoke with GI on 09/10-they advised repeat MRCP. This was completed and was normal - no CBD abnormalities. GI also advised reglan 5mg ac/hs --GI suggested that one can still have diabetic gastroparesis despite negative gastric emptying study. Reglan started and now having significant improvement on 09/11 Continue to monitor and if symptoms are markedly improved, could discharge to home on this regimen (7) Low back pain: Plan: previous t-spine CT imaging in March with DJD. CTA chest in March also unremarkable. (8) Hypothyroidism: Plan: TSH 06/2021 wnl Cont synthroid (9) Hypertension: Plan: Cont ACEi Blood pressures are mildly low-hold lisinopril She previously was on metoprolol but this is no longer on her medication list? (10) Tobacco abuse: Plan: guidance counselor to quit (11) Dyslipidemia: Plan: lipitor 80mg daily (12) Diabetes type 2, uncontrolled: Plan: 10.7% HbA1C in June 2021. cont lantus BID. Holding home Farxiga cont novolog. control satisfactory at this time. (13) CAD (coronary artery disease): Plan: nothing ischemic at this time. cont statin, ACEi, Brilinta. Previously on metoprolol but this is no longer on her medication list-unknown reason (14) Severe protein-calorie malnutrition: Plan: 12-13kg of weight loss over the last few months due to pancreatic insufficiency? (mod pancreatic atrophy on CTs) chronic vomiting and poor appetite? other pathology? (15) Depression: Plan: Continue home fluvoxamine Headache-mild, patient requests as needed ibuprofen which she takes for headaches at home (16) DVT prophylaxis: Plan: lovenox daily Plan PT, OT evals appreciated Disposition-possible discharged home on 09/12 as is improved performed another COVID test 09/09 because of headache, fatigue, runny nose -- negative; RSV/flu also negative Admission and Anticipated Discharge Date Admission Date: September 06, 2021 Subjective Pt feeling much better today but is hesitant to go home yet. Had some nausea this AM but that improved throughout the day and she has been eating all her meals since. No further dizziness. No abd pain. No CP, SOB. Tele with normal sinus rhythm with rates in the 80s to 100s. Review of Systems Review of Systems: All systems reviewed & are unremarkable except as noted in HPI & below Physical Exam Constitutional: WD/WN, vitals as above Eyes: + anicteric sclerae Neck: trachea midline, no thyromegaly Respiratory: normal respiratory effort, lungs clear to auscultation Cardiovascular: RRR, no murmur, no edema Gastrointestinal (Abdomen): normal bowel sounds, soft, nontender, no hepatosplenomegaly Musculoskeletal: Extremities: extremities normal to inspection; no cyanosis and no clubbing Skin: no rashes, warm and dry Neurologic: moves all extremities and awake; no focal motor deficits Psychiatric: A+Ox3, euthymic affect Results & Data Results & Data ([facility]) Vital Signs (Past 12 Hours) Vital Signs Temp Pulse Pulse Resp BP Pulse Ox O2 Del Method 09/11/21 16:29 91 H 09/11/21 15:38 36.6 C 87 18 99/66 L 96 Room Air 09/11/21 12:55 91 H 100/68 09/11/21 11:05 36.7 C 89 18 87/60 L 98 Room Air 09/11/21 08:30 83 09/11/21 07:06 36.9 C 81 18 112/79 98 Room Air Laboratory Results 09/11/21 09/11/21 09/11/21 Range/Units 16:21 14:17 11:04 Sodium (136-145) mmol/L Potassium (3.5-5.1) mmol/L Chloride (98-107) mmol/L Carbon Dioxide (21-32) mmol/L Anion Gap (3-11) BUN (6-23) mg/dl Creatinine (0.6-1.2) mg/dl Est Cr Clr Drug Dosing ml/min Est GFR ( Amer) ml/min Est GFR (Non-Af Amer) ml/min BUN/Creatinine Ratio (10-20) Glucose (70-99(Fasting)) mg/dl POC Glucose 147 H 182 H 173 H (70-99) mg/dl Calcium (8.5-10.1) mg/dl 09/11/21 09/11/21 09/11/21 Range/Units 08:04 06:50 06:11 Sodium 135 L (136-145) mmol/L Potassium 3.7 (3.5-5.1) mmol/L Chloride 102 (98-107) mmol/L Carbon Dioxide 29 (21-32) mmol/L Anion Gap 4 (3-11) BUN 13 (6-23) mg/dl Creatinine 0.91 (0.6-1.2) mg/dl Est Cr Clr Drug Dosing 62.4 ml/min Est GFR ( Amer) 78.9 ml/min Est GFR (Non-Af Amer) 68.1 ml/min BUN/Creatinine Ratio 14.3 (10-20) Glucose 121 H (70-99(Fasting)) mg/dl POC Glucose 131 H 122 H (70-99) mg/dl Calcium 8.6 (8.5-10.1) mg/dl 09/11/21 09/10/21 Range/Units 01:29 20:32 Sodium (136-145) mmol/L Potassium (3.5-5.1) mmol/L Chloride (98-107) mmol/L Carbon Dioxide (21-32) mmol/L Anion Gap (3-11) BUN (6-23) mg/dl Creatinine (0.6-1.2) mg/dl Est Cr Clr Drug Dosing ml/min Est GFR ( Amer) ml/min Est GFR (Non-Af Amer) ml/min BUN/Creatinine Ratio (10-20) Glucose (70-99(Fasting)) mg/dl POC Glucose 130 H 153 H (70-99) mg/dl Calcium (8.5-10.1) mg/dl PG Care Time/CCT Total # of Minutes Spent Total Time Spent with Patient: Total time spent is greater than 50% in coordination of care (as documented) at patient's floor/unit and/or counseling patient: Coding Level of Care Code 04635 Subseq Hosp Care Lvl 3 Diagnoses Hypokalemia E87.6 Hypomagnesemia E83.42 Vertigo R42 Impetigo, unspecified L01.00 Dysphagia R13.10 Nausea R11.0 Low back pain M54.5 Hypothyroidism E03.9 Hypertension I10 Tobacco abuse Z72.0 Dyslipidemia E78.5 Diabetes type 2, uncontrolled E11.65 CAD (coronary artery disease) I25.10 Associated angina: unspecified whether angina present Coronary Disease-Associated Artery/Lesion type: [place] artery [place] vs. transplanted heart: [place] heart Severe protein-calorie malnutrition E43 Depression F32.9 DVT prophylaxis Z29.9 (1) CAD (coronary artery disease) Associated angina: unspecified whether angina present Coronary Disease- Associated Artery/Lesion type: [place] artery [place] vs. transplanted heart: [place] heart Qualified Code(s): I25.10 - Atherosclerotic heart disease of [place] coronary artery without angina pectoris
[2021-09-11] MEDS: ATORVASTATIN 40 MG TAB PO SCH (20:54)
[2021-09-11] MEDS: fluvoxaMINE MALEATE 50 MG TAB PO SCH (20:54)
[2021-09-11] MEDS: PANTOprazole 40 MG TAB PO SCH (20:54)
[2021-09-12] MEDS: MAGNESIUM OXIDE 400 MG TAB PO SCH ×2 (00:25→16:30)
[2021-09-12] MEDS: FAMOTIDINE 20 MG TAB PO SCH ×2 (00:25→16:29)
[2021-09-12] MEDS: TICAGRELOR 90 MG TAB PO SCH ×2 (00:26→16:31)
[2021-09-12] MEDS: lisinopril 20 MG TAB PO SCH ×2 (01:04→16:29)
[2021-09-12] MEDS: ceFAZolin 1000MG 1,000 MG/7.5 ML SYR IV SCH ×3 (02:19→17:45)
[2021-09-12] MEDS: DOXYCYCLINE HYCLATE 100 MG in DEXTROSE 5% 100 ML IV SCH ×2 (05:42→17:46)
[2021-09-12] MEDS: LEVOTHYROXINE SODIUM 88 MCG TABLET PO SCH (05:42)
[2021-09-12 06:50] LABS: Basophils # (auto) 0.04 K/uL (0-0.2); Basophils % (auto) 0.6 %; Eosinophils # (auto) 0.33 K/uL (0-0.50); Eosinophils % (auto) 4.9 %; Hematocrit (blood only) 38.3 % (34.1-44.9); Hemoglobin 12.6 g/dl (12.0-16.0); Immature Granulocytes # (auto) 0.03 K/uL (0.00-0.02); Immature Granulocytes % (auto) 0.4 %; Lymphocytes # (auto) 2.22 K/uL (1.2-3.4); Lymphocytes % (auto) 32.9 %; Mean Corpuscular Hemoglobin 29.1 pg (25.0-34.0); Mean Corpuscular Hgb Conc 32.9 g/dL (32.0-36.0); Mean Corpuscular Volume 88.5 fL (80.0-100.0); Mean Platelet Volume 10.5 fL (9.4-12.3); Monocytes # (auto) 0.58 K/uL (0.24-0.82); Monocytes % (auto) 8.6 %; Neutrophils # (auto) 3.54 K/uL (1.4-6.5); Neutrophils % (auto) 52.6 %; Platelet Count 310 K/uL (130-400); RDW Coefficient of Variation 13.3 % (11.5-14.5); RDW Standard Deviation 42.8 fL (36.4-46.3); Red Blood Count 4.33 M/uL (3.93-5.22); White Blood Count 6.74 K/ul (4.8-10.8)
[2021-09-12 07:20] LABS: BUN Creatinine Ratio 16.7 (10-20); Calcium 8.6 mg/dl (8.5-10.1); Creatinine Clr Calc Pharmacy 59.9 ml/min; Est GFR (Non-African American) 63.8 ml/min; Magnesium 1.5 mg/dl (1.7-2.4); Potassium 4.5 mmol/L (3.5-5.1)
[2021-09-12] MEDS: METOCLOPRAMIDE HCL 5 MG TABLET PO SCH ×2 (07:48→12:16)
[2021-09-12] MEDS: INSULIN ASPART PER UNIT SC SCH ×4 (09:09→21:45)
[2021-09-12] MEDS: SUCRALFATE 1 GM TAB PO SCH ×4 (09:10→21:18)
[2021-09-12] MEDS: MAGNESIUM SULFATE / D5W 1 GM/100 ML BAG IV SCH ×3 (09:10→14:20)
[2021-09-12] MEDS: PANCREAZE (LIPASE 10,500U) CAP PO SCH ×3 (09:11→16:32)
[2021-09-12] MEDS: ENOXAPARIN INJ 40 MG/0.4 ML SYR SQ SCH (09:12)
[2021-09-12] MEDS: DICLOFENAC SOD 1% GEL 100 GM TUBE EXT SCH ×4 (09:12→21:20)
[2021-09-12] MEDS: MUPIROCIN 2% OINT 22 GM TUBE EXT SCH ×2 (09:13→21:20)
[2021-09-12] MEDS: POTASSIUM CHLORIDE CRTAB 20 MEQ TABCR PO SCH (09:13)
[2021-09-12] MEDS: LANTUS PER UNIT CHARGE SQ SCH ×2 (09:16→21:46)
[2021-09-12] MEDS: ACETAMINOPHEN 500 MG TAB PO SCH ×3 (09:17→21:16)
--- NOTE | 2021-09-12 14:42 | Hospitalist Progress Note ---
Date of Service September 12, 2021 Assessment & Plan (1) Hypokalemia: Plan: Severe. Now resolved Multiple episodes of such with several requiring admission. Previously thought to be due to poor oral intake, vomiting, and HCTZ use. During recent hospital stay the HCTZ was stopped but it was uncertain if she was even on the HCTZ. [id number] she presented again with severe hypokalemia. Renin/stefano levels sent/pending. K has normalized with supplementation/replacement. Cont KCL 40meq/day BMP in am. Mag is low and being replaced (2) Hypomagnesemia: Plan: Low again, replace with IV magnesium Cont PO mag supplementation. (3) Vertigo: Plan: Was improved, but returned today and has not received any meclizine Cont meclizine to 25mg TID but make scheduled instead of as needed Numerous episodes over the last month. short-lived, <1 min duration during attacks. Vertigo quite bothersome. MRI brain/auditory canals neg for CVA, acoustic neuroma, etc. PT vestibular evaluation completed -- eleanor-hallpike was +. Treated with Artemio with improved symptoms. This is diagnostic of BPV. (4) Impetigo, unspecified: Plan: NASAL. Improving Cont ancef IV. Cont doxy IV (to cover MRSA). cont bactroban BID to both nares x 10 days. pain meds prn. (5) Dysphagia: Plan: appreciate GI consultation & speech eval. s/p video swallow. cricopharyngeal dysfunction noted on video swallow here easy to chew diet. EGD - 03/2021 - esophagus normal, mild gastritis only. MRCP 03/2021 without CBD stone/abnormalities. NUMEROUS Ct abd/pelvis negative except atrophic pancreas. (6) Nausea: Plan: Was somewhat improved with starting low-dose Reglan, now returned on 09/12 - Gastric emptying study normal. Multiple CT abd/pelvis, MRCP, KUB x-rays, MRI brain, cortisol - all normal or negative except ?dropped gallstones on most recent CT sitting next to liver. Uncertain if that could cause issues. Atrophy of pancreas seen on CTs - creon trial given her chronic diarrhea but this has not helped her nausea/abd bloating/abd pain. EGD/colonoscopy 2021 unremarkable except gastritis. Only other test would be an ERCP looking for CBD issues that aren't being detected on MRCP. Previous hospitalist spoke with GI on 09/10-they advised repeat MRCP. This was completed and was normal - no CBD abnormalities. GI also advised reglan 5mg ac/hs --GI suggested that one can still have diabetic gastroparesis despite negative gastric emptying study. Reglan started and was having significant improvement on 09/11, but worsening on 09/12-increase to 10 Mg p.o. AC Continue to monitor and if symptoms are markedly improved, could discharge to home on this regimen (7) Low back pain: Plan: previous t-spine CT imaging in March with MISTY. CTA chest in March also unremarkable. (8) Hypothyroidism: Plan: TSH 06/2021 wnl Cont synthroid (9) Hypertension: Plan: Cont ACEi Blood pressures now normal-continue lisinopril She previously was on metoprolol but this was stopped due to hypotension (10) Tobacco abuse: Plan: pet counselor to quit (11) Dyslipidemia: Plan: lipitor 80mg daily (12) Diabetes type 2, uncontrolled: Plan: 10.7% HbA1C in June 2021. cont lantus BID. Holding home Farxiga cont novolog. With some hyperglycemia today (13) CAD (coronary artery disease): Plan: nothing ischemic at this time. cont statin, ACEi, Brilinta. Previously on metoprolol but this was stopped due to hypotension (14) Severe protein-calorie malnutrition: Plan: 12-13kg of weight loss over the last few months due to pancreatic insufficiency? (mod pancreatic atrophy on CTs) chronic vomiting and poor appetite? other pathology? (15) Depression: Plan: Continue home fluvoxamine (16) DVT prophylaxis: Plan: lovenox daily Plan PT, OT evals appreciated Disposition-continued stay for nausea, hopeful for discharge to home tomorrow if nausea improved performed another COVID test 09/09 because of headache, fatigue, runny nose -- negative; RSV/flu also negative Admission and Anticipated Discharge Date Admission Date: September 06, 2021 Subjective Patient reports feeling nauseated today although she did eat [place] toast for breakfast. She reports she did not eat as much for lunch. No vomiting. Has not had a bowel movement today. No chest pain or shortness of breath. Also feeling a little bit dizzy today with walking around. She has not taken any meclizine. Telemetry with normal sinus rhythm with rates in the 80s to 90s Review of Systems Review of Systems: All systems reviewed & are unremarkable except as noted in HPI & below Physical Exam Constitutional: WD/WN, vitals as above + obese Eyes: + anicteric sclerae Neck: trachea midline, no thyromegaly Respiratory: normal respiratory effort, lungs clear to auscultation Cardiovascular: RRR, no murmur, no edema Gastrointestinal (Abdomen): normal bowel sounds, soft, nontender, no hepatosplenomegaly Musculoskeletal: Extremities: extremities normal to inspection; no cyanosis and no clubbing Skin: no rashes, warm and dry Neurologic: moves all extremities and awake; no focal motor deficits Psychiatric: A+Ox3, euthymic affect Results & Data Results & Data ([facility]) Vital Signs (Past 12 Hours) Vital Signs Temp Pulse Pulse Resp BP BP Pulse Ox 09/12/21 11:04 36.6 C 87 19 132/89 96 09/12/21 07:21 36.5 C 77 19 125/82 97 09/12/21 04:53 95 H 09/12/21 03:00 36.4 C L 77 16 104/68 95 O2 Del Method 09/12/21 11:04 Room Air 09/12/21 07:21 Room Air 09/12/21 04:53 09/12/21 03:00 Laboratory Results 09/12/21 09/12/21 09/12/21 Range/Units 20:19 16:36 11:03 WBC (4.8-10.8) K/ul RBC (3.93-5.22) M/uL Hgb (12.0-16.0) g/dl Hct (34.1-44.9) % MCV (80.0-100.0) fL MCH (25.0-34.0) pg MCHC (32.0-36.0) g/dL RDW Std Deviation (36.4-46.3) fL RDW Coeff of Umair (11.5-14.5) % Plt Count (130-400) K/uL MPV (9.4-12.3) fL Immature Gran % (Auto) % Neut % (Auto) % Lymph % (Auto) % [place] % (Auto) % Eos % (Auto) % Baso % (Auto) % Neut # (Auto) (1.4-6.5) K/uL Lymph # (Auto) (1.2-3.4) K/uL [place] # (Auto) (0.24-0.82) K/uL Eos # (Auto) (0-0.50) K/uL Baso # (Auto) (0-0.2) K/uL Immature Gran # (Auto) (0.00-0.02) K/uL Sodium (136-145) mmol/L Potassium (3.5-5.1) mmol/L Chloride (98-107) mmol/L Carbon Dioxide (21-32) mmol/L Anion Gap (3-11) BUN (6-23) mg/dl Creatinine (0.6-1.2) mg/dl Est Cr Clr Drug Dosing ml/min Est GFR ( Amer) ml/min Est GFR (Non-Af Amer) ml/min BUN/Creatinine Ratio (10-20) Glucose (70-99(Fasting)) mg/dl POC Glucose 267 H 96 223 H (70-99) mg/dl Calcium (8.5-10.1) mg/dl Magnesium (1.7-2.4) mg/dl 09/12/21 09/12/21 09/12/21 Range/Units 07:14 06:23 06:23 WBC 6.74 (4.8-10.8) K/ul RBC 4.33 (3.93-5.22) M/uL Hgb 12.6 (12.0-16.0) g/dl Hct 38.3 (34.1-44.9) % MCV 88.5 (80.0-100.0) fL MCH 29.1 (25.0-34.0) pg MCHC 32.9 (32.0-36.0) g/dL RDW Std Deviation 42.8 (36.4-46.3) fL RDW Coeff of Umair 13.3 (11.5-14.5) % Plt Count 310 (130-400) K/uL MPV 10.5 (9.4-12.3) fL Immature Gran % (Auto) 0.4 % Neut % (Auto) 52.6 % Lymph % (Auto) 32.9 % [place]ledso[place] % (Auto) 8.6 % Eos % (Auto) 4.9 % Baso % (Auto) 0.6 % Neut # (Auto) 3.54 (1.4-6.5) K/uL Lymph # (Auto) 2.22 (1.2-3.4) K/uL [place] # (Auto) 0.58 (0.24-0.82) K/uL Eos # (Auto) 0.33 (0-0.50) K/uL Baso # (Auto) 0.04 (0-0.2) K/uL Immature Gran # (Auto) 0.03 H (0.00-0.02) K/uL Sodium 136 (136-145) mmol/L Potassium 4.5 D (3.5-5.1) mmol/L Chloride 104 (98-107) mmol/L Carbon Dioxide 27 (21-32) mmol/L Anion Gap 5 (3-11) BUN 16 (6-23) mg/dl Creatinine 0.96 (0.6-1.2) mg/dl Est Cr Clr Drug Dosing 59.9 ml/min Est GFR ( Amer) 74.0 ml/min Est GFR (Non-Af Amer) 63.8 ml/min BUN/Creatinine Ratio 16.7 (10-20) Glucose 146 H (70-99(Fasting)) mg/dl POC Glucose 153 H (70-99) mg/dl Calcium 8.6 (8.5-10.1) mg/dl Magnesium 1.5 L (1.7-2.4) mg/dl 09/12/21 09/12/21 Range/Units 05:44 00:30 WBC (4.8-10.8) K/ul RBC (3.93-5.22) M/uL Hgb (12.0-16.0) g/dl Hct (34.1-44.9) % MCV (80.0-100.0) fL MCH (25.0-34.0) pg MCHC (32.0-36.0) g/dL RDW Std Deviation (36.4-46.3) fL RDW Coeff of Umair (11.5-14.5) % Plt Count (130-400) K/uL MPV (9.4-12.3) fL Immature Gran % (Auto) % Neut % (Auto) % Lymph % (Auto) % [place] % (Auto) % Eos % (Auto) % Baso % (Auto) % Neut # (Auto) (1.4-6.5) K/uL Lymph # (Auto) (1.2-3.4) K/uL [place] # (Auto) (0.24-0.82) K/uL Eos # (Auto) (0-0.50) K/uL Baso # (Auto) (0-0.2) K/uL Immature Gran # (Auto) (0.00-0.02) K/uL Sodium (136-145) mmol/L Potassium (3.5-5.1) mmol/L Chloride (98-107) mmol/L Carbon Dioxide (21-32) mmol/L Anion Gap (3-11) BUN (6-23) mg/dl Creatinine (0.6-1.2) mg/dl Est Cr Clr Drug Dosing ml/min Est GFR ( Amer) ml/min Est GFR (Non-Af Amer) ml/min BUN/Creatinine Ratio (10-20) Glucose (70-99(Fasting)) mg/dl POC Glucose 139 H 169 H (70-99) mg/dl Calcium (8.5-10.1) mg/dl Magnesium (1.7-2.4) mg/dl PG Care Time/CCT Total # of Minutes Spent Total Time Spent with Patient: Total time spent is greater than 50% in coordination of care (as documented) at patient's floor/unit and/or counseling patient: Coding Level of Care Code 57191 Subseq Hosp Care Lvl 2 Diagnoses Hypokalemia E87.6 Hypomagnesemia E83.42 Vertigo R42 Impetigo, unspecified L01.00 Dysphagia R13.10 Nausea R11.0 Low back pain M54.5 Hypothyroidism E03.9 Hypertension I10 Tobacco abuse Z72.0 Dyslipidemia E78.5 Diabetes type 2, uncontrolled E11.65 CAD (coronary artery disease) I25.10 Associated angina: unspecified whether angina present Coronary Disease-Associated Artery/Lesion type: [place] artery [place] vs. transplanted heart: [place] heart Severe protein-calorie malnutrition E43 Depression F32.9 DVT prophylaxis Z29.9 (1) CAD (coronary artery disease) Associated angina: unspecified whether angina present Coronary Disease- Associated Artery/Lesion type: [place] artery [place] vs. transplanted heart: [place] heart Qualified Code(s): I25.10 - Atherosclerotic heart disease of [place] coronary artery without angina pectoris
[2021-09-12] MEDS: METOCLOPRAMIDE HCL 10 MG TABLET PO SCH ×2 (16:37→21:18)
[2021-09-12] MEDS: MECLIZINE HCL 25 MG TAB PO SCH ×2 (17:45→21:19)
[2021-09-12] MEDS: PANTOprazole 40 MG TAB PO SCH (21:18)
[2021-09-12] MEDS: fluvoxaMINE MALEATE 50 MG TAB PO SCH (21:19)
[2021-09-12] MEDS: ATORVASTATIN 40 MG TAB PO SCH (21:20)
[2021-09-13] MEDS: FAMOTIDINE 20 MG TAB PO SCH ×3 (00:05→23:54)
[2021-09-13] MEDS: TICAGRELOR 90 MG TAB PO SCH ×3 (00:05→23:54)
[2021-09-13] MEDS: MAGNESIUM OXIDE 400 MG TAB PO SCH ×3 (00:05→23:54)
[2021-09-13] MEDS: lisinopril 20 MG TAB PO SCH ×4 (00:06→23:54)
[2021-09-13] MEDS: ceFAZolin 1000MG 1,000 MG/7.5 ML SYR IV SCH ×3 (01:43→17:20)
[2021-09-13] MEDS: DOXYCYCLINE HYCLATE 100 MG in DEXTROSE 5% 100 ML IV SCH ×2 (06:04→17:20)
[2021-09-13] MEDS: LEVOTHYROXINE SODIUM 88 MCG TABLET PO SCH (06:06)
[2021-09-13] MEDS: ONDANSETRON INJ 2 MG/ML 2 ML VIAL IV PRN (07:17)
[2021-09-13 08:23] LABS: BUN Creatinine Ratio 16.7 (10-20); Calcium 8.7 mg/dl (8.5-10.1); Creatinine Clr Calc Pharmacy 79.9 ml/min; Est GFR (African American) 104.8 ml/min; Est GFR (Non-African American) 90.4 ml/min; Potassium 4.4 mmol/L (3.5-5.1)
[2021-09-13] MEDS: MECLIZINE HCL 25 MG TAB PO SCH ×3 (08:45→21:06)
[2021-09-13] MEDS: INSULIN ASPART PER UNIT SC SCH ×4 (08:45→21:22)
[2021-09-13] MEDS: MUPIROCIN 2% OINT 22 GM TUBE EXT SCH ×2 (08:46→21:07)
[2021-09-13] MEDS: METOCLOPRAMIDE HCL 10 MG TABLET PO SCH ×4 (08:46→21:06)
[2021-09-13] MEDS: POTASSIUM CHLORIDE CRTAB 20 MEQ TABCR PO SCH (08:46)
[2021-09-13] MEDS: SUCRALFATE 1 GM TAB PO SCH ×4 (08:46→21:06)
[2021-09-13] MEDS: LANTUS PER UNIT CHARGE SQ SCH ×2 (08:47→21:23)
[2021-09-13] MEDS: PANCREAZE (LIPASE 10,500U) CAP PO SCH ×3 (08:47→17:18)
[2021-09-13] MEDS: DICLOFENAC SOD 1% GEL 100 GM TUBE EXT SCH ×4 (08:47→21:07)
[2021-09-13] MEDS: ENOXAPARIN INJ 40 MG/0.4 ML SYR SQ SCH (08:47)
[2021-09-13] MEDS: ACETAMINOPHEN 500 MG TAB PO SCH ×3 (08:48→21:10)
[2021-09-13 09:21] LABS: Magnesium 1.8 mg/dl (1.7-2.4)
--- NOTE | 2021-09-13 11:38 | Hospitalist Progress Note ---
Date of Service September 13, 2021 Assessment & Plan (1) Hypokalemia: Plan: Severe. Now resolved for many days since replacement Multiple episodes of such with several requiring admission. Previously thought to be due to poor oral intake, vomiting, and HCTZ use. During recent hospital stay the HCTZ was stopped but it was uncertain if she was even on the HCTZ. [id number] she presented again with severe hypokalemia. Renin/stefano levels sent-still pending. Cont KCL 40meq/day Replaced magnesium BMP in am. (2) Hypomagnesemia: Plan: replaced and improved Cont PO mag supplementation. (3) Depression: Plan: Not well controlled. Depression w/ anxiety Increase home fluvoxamine to 50mg po bid needs f/u with Psych as outpt-[facility] (4) Vertigo: Plan: improved with making meclizine scheduled Cont meclizine to 25mg TID Numerous episodes over the last month. short-lived, <1 min duration during attacks. Vertigo quite bothersome. MRI brain/auditory canals neg for CVA, acoustic neuroma, etc. PT vestibular evaluation completed -- eleanor-hallpike was +. Treated with Artemio with improved symptoms. This is diagnostic of BPV. (5) Impetigo, unspecified: Plan: NASAL. much improved Cont ancef IV. Cont doxy IV (to cover MRSA). will be done with course on 09/15 cont bactroban BID to both nares x 10 days. pain meds prn. (6) Dysphagia: Plan: appreciate GI consultation & speech eval. s/p video swallow. cricopharyngeal dysfunction noted on video swallow here easy to chew diet. EGD - 03/2021 - esophagus normal, mild gastritis only. MRCP 03/2021 without CBD stone/abnormalities. NUMEROUS Ct abd/pelvis negative except atrophic pancreas. (7) Nausea: Plan: Was somewhat improved with starting low-dose Reglan, now returned on 09/12 - Gastric emptying study normal. Multiple CT abd/pelvis, MRCP, KUB x-rays, MRI brain, cortisol - all normal or negative except ?dropped gallstones on most recent CT sitting next to liver. Uncertain if that could cause issues. Atrophy of pancreas seen on CTs - creon trial given her chronic diarrhea but this has not helped her nausea/abd bloating/abd pain. EGD/colonoscopy 2021 unremarkable except gastritis. Only other test would be an ERCP looking for CBD issues that aren't being detected on MRCP. Previous hospitalist spoke with GI on 09/10-they advised repeat MRCP. This was completed and was normal - no CBD abnormalities. GI also advised reglan 5mg ac/hs --GI suggested that one can still have diabetic gastroparesis despite negative gastric emptying study. Reglan started and was having significant improvement on 09/11, but worsening on 09/12-increase to 10 Mg p.o. AC Continue to monitor and if symptoms are markedly improved, could discharge to home on this regimen (8) Low back pain: Plan: previous t-spine CT imaging in March with DJD. CTA chest in March also unremarkable. (9) Hypothyroidism: Plan: TSH 06/2021 wnl Cont synthroid (10) Hypertension: Plan: Cont ACEi Blood pressures now normal-continue lisinopril She previously was on metoprolol but this was stopped due to hypotension (11) Tobacco abuse: Plan: supervisor counseling and guidance to quit (12) Dyslipidemia: Plan: lipitor 80mg daily (13) Diabetes type 2, uncontrolled: Plan: 10.7% HbA1C in June 2021. cont lantus BID. Holding home Farxiga cont novolog. follows with Endocrine as outpt (14) CAD (coronary artery disease): Plan: nothing ischemic at this time. cont statin, ACEi, Brilinta. Previously on metoprolol but this was stopped due to hypotension (15) Severe protein-calorie malnutrition: Plan: 12-13kg of weight loss over the last few months due to pancreatic insufficiency? (mod pancreatic atrophy on CTs) chronic vomiting and poor appetite? other pathology? (16) DVT prophylaxis: Plan: lovenox daily Plan PT, OT sincere appreciated Disposition-continued stay for nausea, she is anxious about discharge-hopeful for discharge to home tomorrow if nausea improved Downgrade to med/surg Admission and Anticipated Discharge Date Admission Date: September 06, 2021 Subjective Pt ate one piece of divehi toast this AM and now feeling nauseated again, no vomiting. Had a BM this AM. Had a little lightheadedness with walking to the bathroom today but then resolved. Feels she needs to see a Psychiatrist and is interested in increasing the dose of her fluvoxamine. Tele with NSR, normal rates Review of Systems Review of Systems: All systems reviewed & are unremarkable except as noted in HPI & below Physical Exam Constitutional: WD/WN, vitals as above + obese Eyes: + anicteric sclerae Neck: trachea midline, no thyromegaly Respiratory: normal respiratory effort, lungs clear to auscultation Cardiovascular: RRR, no murmur, no edema Gastrointestinal (Abdomen): normal bowel sounds, soft, nontender, no hepatosplenomegaly Musculoskeletal: Extremities: extremities normal to inspection; no cyanosis and no clubbing Skin: no rashes, warm and dry Neurologic: moves all extremities and awake; no focal motor deficits Psychiatric: A+Ox3, euthymic affect Results & Data Results & [facility] ([facility]) Vital Signs (Past 12 Hours) Vital Signs Temp Pulse Pulse Resp BP BP Pulse Ox 09/13/21 11:26 36.6 C 74 19 106/64 96 09/13/21 07:48 36.4 C L 89 16 138/78 97 09/13/21 04:50 36.5 C 85 18 129/83 97 09/13/21 01:53 81 09/13/21 00:00 09/13/21 00:09 36.6 C 74 16 93/58 L 95 Pulse Ox O2 Del Method O2 Del Method 09/13/21 11:26 Room Air 09/13/21 07:48 Room Air 09/13/21 04:50 Room Air 09/13/21 01:53 09/13/21 00:00 98 Room Air 09/13/21 00:09 Room Air Laboratory Results 09/13/21 09/13/21 09/13/21 Range/Units 11:22 07:21 07:08 Sodium 137 (136-145) mmol/L Potassium 4.4 (3.5-5.1) mmol/L Chloride 105 (98-107) mmol/L Carbon Dioxide 25 (21-32) mmol/L Anion Gap 7 (3-11) BUN 12 (6-23) mg/dl Creatinine 0.72 (0.6-1.2) mg/dl Est Cr Clr Drug Dosing 79.9 ml/min Est GFR ( Amer) 104.8 ml/min Est GFR (Non-Af Amer) 90.4 ml/min BUN/Creatinine Ratio 16.7 (10-20) Glucose 127 H (70-99(Fasting)) mg/dl POC Glucose 149 H 130 H (70-99) mg/dl Calcium 8.7 (8.5-10.1) mg/dl Magnesium 1.8 (1.7-2.4) mg/dl 09/13/21 09/13/21 09/12/21 Range/Units 06:01 00:16 20:19 Sodium (136-145) mmol/L Potassium (3.5-5.1) mmol/L Chloride (98-107) mmol/L Carbon Dioxide (21-32) mmol/L Anion Gap (3-11) BUN (6-23) mg/dl Creatinine (0.6-1.2) mg/dl Est Cr Clr Drug Dosing ml/min Est GFR ( Amer) ml/min Est GFR (Non-Af Amer) ml/min BUN/Creatinine Ratio (10-20) Glucose (70-99(Fasting)) mg/dl POC Glucose 116 H 203 H 267 H (70-99) mg/dl Calcium (8.5-10.1) mg/dl Magnesium (1.7-2.4) mg/dl 09/12/21 Range/Units 16:36 Sodium (136-145) mmol/L Potassium (3.5-5.1) mmol/L Chloride (98-107) mmol/L Carbon Dioxide (21-32) mmol/L Anion Gap (3-11) BUN (6-23) mg/dl Creatinine (0.6-1.2) mg/dl Est Cr Clr Drug Dosing ml/min Est GFR ( Amer) ml/min Est GFR (Non-Af Amer) ml/min BUN/Creatinine Ratio (10-20) Glucose (70-99(Fasting)) mg/dl POC Glucose 96 (70-99) mg/dl Calcium (8.5-10.1) mg/dl Magnesium (1.7-2.4) mg/dl PG Care Time/CCT Total # of Minutes Spent Total Time Spent with Patient: Total time spent is greater than 50% in coordination of care (as documented) at patient's floor/unit and/or counseling patient: Coding Level of Care Code 11280 Subseq Hosp Care Lvl 2 Diagnoses Hypokalemia E87.6 Hypomagnesemia E83.42 Depression F32.9 Vertigo R42 Impetigo, unspecified L01.00 Dysphagia R13.10 Nausea R11.0 Low back pain M54.5 Hypothyroidism E03.9 Hypertension I10 Tobacco abuse Z72.0 Dyslipidemia E78.5 Diabetes type 2, uncontrolled E11.65 CAD (coronary artery disease) I25.10 Coronary Disease-Associated Artery/Lesion type: [place] artery [place] vs. transplanted heart: [place] heart Associated angina: unspecified whether angina present Severe protein-calorie malnutrition E43 DVT prophylaxis Z29.9 (1) CAD (coronary artery disease) Coronary Disease-Associated Artery/Lesion type: [place] artery [place] vs. transplanted heart: [place] heart Associated angina: unspecified whether angina present Qualified Code(s): I25.10 - Atherosclerotic heart disease of [place] coronary artery without angina pectoris
[2021-09-13] MEDS: fluvoxaMINE MALEATE 50 MG TAB PO SCH ×2 (12:10→21:07)
[2021-09-13] MEDS: ATORVASTATIN 40 MG TAB PO SCH (21:06)
[2021-09-13] MEDS: PANTOprazole 40 MG TAB PO SCH (21:07)
[2021-09-14] MEDS: ceFAZolin 1000MG 1,000 MG/7.5 ML SYR IV SCH ×3 (01:58→17:09)
[2021-09-14] MEDS: LEVOTHYROXINE SODIUM 88 MCG TABLET PO SCH (06:37)
[2021-09-14] MEDS: DOXYCYCLINE HYCLATE 100 MG in DEXTROSE 5% 100 ML IV SCH ×2 (06:37→17:09)
[2021-09-14] MEDS: SUCRALFATE 1 GM TAB PO SCH ×4 (08:02→21:06)
[2021-09-14] MEDS: MECLIZINE HCL 25 MG TAB PO SCH ×3 (08:02→21:06)
[2021-09-14] MEDS: POTASSIUM CHLORIDE CRTAB 20 MEQ TABCR PO SCH (08:02)
[2021-09-14] MEDS: PANCREAZE (LIPASE 10,500U) CAP PO SCH ×3 (08:02→17:09)
[2021-09-14] MEDS: METOCLOPRAMIDE HCL 10 MG TABLET PO SCH ×4 (08:02→21:06)
[2021-09-14] MEDS: MUPIROCIN 2% OINT 22 GM TUBE EXT SCH ×2 (08:03→21:06)
[2021-09-14] MEDS: ENOXAPARIN INJ 40 MG/0.4 ML SYR SQ SCH (08:03)
[2021-09-14] MEDS: INSULIN ASPART PER UNIT SC SCH ×4 (08:05→21:00)
[2021-09-14] MEDS: ACETAMINOPHEN 500 MG TAB PO SCH ×3 (08:07→21:05)
[2021-09-14] MEDS: fluvoxaMINE MALEATE 50 MG TAB PO SCH ×2 (08:08→21:06)
[2021-09-14] MEDS: DICLOFENAC SOD 1% GEL 100 GM TUBE EXT SCH ×4 (08:08→21:06)
[2021-09-14] MEDS: LANTUS PER UNIT CHARGE SQ SCH ×2 (08:08→21:00)
[2021-09-14] MEDS: ONDANSETRON INJ 2 MG/ML 2 ML VIAL IV PRN (10:28)
[2021-09-14 11:39] LABS: Calcium 8.9 mg/dl (8.5-10.1); Creatinine Clr Calc Pharmacy 66.9 ml/min; Est GFR (African American) 84.5 ml/min; Est GFR (Non-African American) 72.9 ml/min; Potassium 4.7 mmol/L (3.5-5.1)
[2021-09-14] MEDS: MAGNESIUM SULFATE / D5W 1 GM/100 ML BAG IV SCH ×2 (12:06→13:14)
--- NOTE | 2021-09-14 13:18 | Hospitalist Progress Note ---
Date of Service September 14, 2021 Assessment & Plan (1) Hypokalemia: Plan: Severe. Now resolved for many days since replacement Multiple episodes of such with several requiring admission. Previously thought to be due to poor oral intake, vomiting, and HCTZ use. During recent hospital stay the HCTZ was stopped but it was uncertain if she was even on the HCTZ. Also on Farxiga at home which can cause this-would recommend stopping this on discharge Renin/stefano levels sent-still pending. Cont KCL 40meq/day Replaced magnesium (2) Hypomagnesemia: Plan: replaced multiple times this admission give 2 grams IV mag today Cont PO mag supplementation and increase to tid. (3) Depression: Plan: Not well controlled. Depression w/ anxiety Increased home fluvoxamine to 50mg po bid needs f/u with Psych as outpt-CM set him up with [facility] for a support peer program (4) Vertigo: Plan: improved with making meclizine scheduled Cont meclizine to 25mg TID Numerous episodes over the last month. short-lived, <1 min duration during attacks. Vertigo quite bothersome. MRI brain/auditory canals neg for CVA, acoustic neuroma, etc. PT vestibular evaluation completed -- eleanor-hallpike was +. Treated with Artemio with improved symptoms. This is diagnostic of BPV. (5) Impetigo, unspecified: Plan: NASAL. much improved Cont ancef IV. Cont doxy IV (to cover MRSA). will be done with course on 09/15 cont bactroban BID to both nares x 10 days. pain meds prn. (6) Dysphagia: Plan: appreciate GI consultation & speech eval. s/p video swallow. cricopharyngeal dysfunction noted on video swallow here easy to chew diet. EGD - 03/2021 - esophagus normal, mild gastritis only. MRCP 03/2021 without CBD stone/abnormalities. NUMEROUS Ct abd/pelvis negative except atrophic pancreas. (7) Nausea: Plan: Was somewhat improved with starting low-dose Reglan, now returned on 09/12 - Gastric emptying study normal. Multiple CT abd/pelvis, MRCP, KUB x-rays, MRI brain, cortisol - all normal or negative except ?dropped gallstones on most recent CT sitting next to liver. Uncertain if that could cause issues. Atrophy of pancreas seen on CTs - creon trial given her chronic diarrhea but this has not helped her nausea/abd bloating/abd pain. EGD/colonoscopy 2021 unremarkable except gastritis. Only other test would be an ERCP looking for CBD issues that aren't being detected on MRCP. Previous hospitalist spoke with GI on 09/10-they advised repeat MRCP. This was completed and was normal - no CBD abnormalities. GI also advised reglan 5mg ac/hs --GI suggested that one can still have diabetic gastroparesis despite negative gastric emptying study. Reglan started and was having significant improvement on 09/11, but worsening on 09/12-increase to 10 Mg p.o. AC Continue to monitor and if symptoms are markedly improved, could discharge to home on this regimen suggest gastroparesis diet (8) Low back pain: Plan: previous t-spine CT imaging in March with SURESHD. CTA chest in March also unremarkable. 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 cont lantus BID. Holding home Farxiga and would stop on discharge as above due to hypokalemia cont novolog. follows with Endocrine as outpt (14) CAD (coronary artery disease): Plan: nothing ischemic at this time. cont statin, ACEi, Brilinta. Previously on metoprolol but this was stopped due to hypotension (15) Severe protein-calorie malnutrition: Plan: 12-13kg of weight loss over the last few months due to pancreatic insufficiency? (mod pancreatic atrophy on CTs) chronic vomiting and poor appetite? other pathology? (16) DVT prophylaxis: Plan: lovenox daily Plan PT, OT evals appreciated Disposition-continued stay for nausea, also does not have a ride today-hopeful for discharge to home tomorrow if nausea improved Downgraded to med/surg but no bed available yet Admission and Anticipated Discharge Date Admission Date: September 06, 2021 Subjective Pt reports she ate a pancake for breakfast and then a bite of a chicken sandwich for lunch but now feeling nauseated again. Reminded her about our converation yesterday to avoid bread products and eat small portions. Also she states she has no ride home today. Tele with NSR, normal rates Review of Systems Review of Systems: All systems reviewed & are unremarkable except as noted in HPI & below Physical Exam Constitutional: WD/WN, vitals as above + obese Eyes: + anicteric sclerae Neck: trachea midline, no thyromegaly Respiratory: normal respiratory effort, lungs clear to auscultation Cardiovascular: RRR, no murmur, no edema Gastrointestinal (Abdomen): normal bowel sounds, soft, nontender, no hepatosplenomegaly Musculoskeletal: Extremities: extremities normal to inspection; no cyanosis and no clubbing Skin: no rashes, warm and dry Neurologic: moves all extremities and awake; no focal motor deficits Psychiatric: A+Ox3, euthymic affect Results & Data Results & Data ([facility]) Vital Signs (Past 12 Hours) Vital Signs Temp Pulse Resp BP Pulse Ox O2 Del Method 09/14/21 12:17 36.3 C L 86 20 143/83 H 95 Room Air 09/14/21 08:03 36.6 C 87 20 127/85 96 Room Air 09/14/21 04:00 36.5 C 73 18 113/71 98 Room Air Laboratory Results 09/14/21 09/14/21 09/14/21 Range/Units 11:15 09:53 09:49 Sodium 136 (136-145) mmol/L Potassium 4.7 (3.5-5.1) mmol/L Chloride 104 (98-107) mmol/L Carbon Dioxide 25 (21-32) mmol/L Anion Gap 7 (3-11) BUN 12 (6-23) mg/dl Creatinine 0.86 (0.6-1.2) mg/dl Est Cr Clr Drug Dosing 66.9 ml/min Est GFR ( Amer) 84.5 ml/min Est GFR (Non-Af Amer) 72.9 ml/min BUN/Creatinine Ratio 14.0 (10-20) Glucose 237 H (70-99(Fasting)) mg/dl POC Glucose 187 H (70-99) mg/dl Calcium 8.9 (8.5-10.1) mg/dl Magnesium 1.4 L (1.7-2.4) mg/dl 09/14/21 09/14/21 09/14/21 Range/Units 07:15 03:32 00:02 Sodium (136-145) mmol/L Potassium (3.5-5.1) mmol/L Chloride (98-107) mmol/L Carbon Dioxide (21-32) mmol/L Anion Gap (3-11) BUN (6-23) mg/dl Creatinine (0.6-1.2) mg/dl Est Cr Clr Drug Dosing ml/min Est GFR ( Amer) ml/min Est GFR (Non-Af Amer) ml/min BUN/Creatinine Ratio (10-20) Glucose (70-99(Fasting)) mg/dl POC Glucose 118 H 110 H 106 H (70-99) mg/dl Calcium (8.5-10.1) mg/dl Magnesium (1.7-2.4) mg/dl 09/13/21 09/13/21 09/13/21 Range/Units 20:46 16:29 14:58 Sodium (136-145) mmol/L Potassium (3.5-5.1) mmol/L Chloride (98-107) mmol/L Carbon Dioxide (21-32) mmol/L Anion Gap (3-11) BUN (6-23) mg/dl Creatinine (0.6-1.2) mg/dl Est Cr Clr Drug Dosing ml/min Est GFR ( Amer) ml/min Est GFR (Non-Af Amer) ml/min BUN/Creatinine Ratio (10-20) Glucose (70-99(Fasting)) mg/dl POC Glucose 242 H 134 H 115 H (70-99) mg/dl Calcium (8.5-10.1) mg/dl Magnesium (1.7-2.4) mg/dl PG Care Time/CCT Total # of Minutes Spent Total Time Spent with Patient: Total time spent is greater than 50% in coordination of care (as documented) at patient's floor/unit and/or counseling patient: Coding Level of Care Code 34416 Subseq Hosp Care Lvl 2 Diagnoses Hypokalemia E87.6 Hypomagnesemia E83.42 Depression F32.9 Vertigo R42 Impetigo, unspecified L01.00 Dysphagia R13.10 Nausea R11.0 Low back pain M54.5 Hypothyroidism E03.9 Hypertension I10 Tobacco abuse Z72.0 Dyslipidemia E78.5 Diabetes type 2, uncontrolled E11.65 CAD (coronary artery disease) I25.10 Coronary Disease-Associated Artery/Lesion type: [place] artery [place] vs. transplanted heart: [place] heart Associated angina: unspecified whether angina present Severe protein-calorie malnutrition E43 DVT prophylaxis Z29.9 (1) CAD (coronary artery disease) Coronary Disease-Associated Artery/Lesion type: [place] artery [place] vs. transplanted heart: [place] heart Associated angina: unspecified whether angina present Qualified Code(s): I25.10 - Atherosclerotic heart disease of [place] coronary artery without angina pectoris
[2021-09-14] MEDS ORDERED: MAGNESIUM OXIDE 400 MG TAB PO ONE (13:36)
[2021-09-14] MEDS: FAMOTIDINE 20 MG TAB PO SCH (17:06)
[2021-09-14] MEDS: lisinopril 20 MG TAB PO SCH (17:07)
[2021-09-14] MEDS: TICAGRELOR 90 MG TAB PO SCH (17:07)
[2021-09-14] MEDS: MAGNESIUM OXIDE 400 MG TAB PO SCH (17:07)
[2021-09-14] MEDS: ATORVASTATIN 40 MG TAB PO SCH (21:06)
[2021-09-14] MEDS: PANTOprazole 40 MG TAB PO SCH (21:06)
[2021-09-15] MEDS: MAGNESIUM OXIDE 400 MG TAB PO SCH ×3 (00:38→08:11)
[2021-09-15] MEDS: TICAGRELOR 90 MG TAB PO SCH (00:39)
[2021-09-15] MEDS: FAMOTIDINE 20 MG TAB PO SCH (00:40)
[2021-09-15] MEDS: lisinopril 20 MG TAB PO SCH (00:41)
[2021-09-15] MEDS: ceFAZolin 1000MG 1,000 MG/7.5 ML SYR IV SCH ×2 (01:38→01:51)
[2021-09-15] MEDS: LEVOTHYROXINE SODIUM 88 MCG TABLET PO SCH (05:34)
[2021-09-15] MEDS: MUPIROCIN 2% OINT 22 GM TUBE EXT SCH (08:10)
[2021-09-15] MEDS: POTASSIUM CHLORIDE CRTAB 20 MEQ TABCR PO SCH (08:10)
[2021-09-15] MEDS: ACETAMINOPHEN 500 MG TAB PO SCH (08:10)
[2021-09-15] MEDS: ENOXAPARIN INJ 40 MG/0.4 ML SYR SQ SCH (08:11)
[2021-09-15] MEDS: MECLIZINE HCL 25 MG TAB PO SCH (08:11)
[2021-09-15] MEDS: PANCREAZE (LIPASE 10,500U) CAP PO SCH ×2 (08:11→12:11)
[2021-09-15] MEDS: DICLOFENAC SOD 1% GEL 100 GM TUBE EXT SCH (08:12)
[2021-09-15] MEDS: METOCLOPRAMIDE HCL 10 MG TABLET PO SCH ×2 (08:12→12:10)
[2021-09-15] MEDS: INSULIN ASPART PER UNIT SC SCH ×2 (08:12→12:06)
[2021-09-15] MEDS: SUCRALFATE 1 GM TAB PO SCH ×2 (08:12→12:10)
[2021-09-15] MEDS: LANTUS PER UNIT CHARGE SQ SCH (08:13)
[2021-09-15] MEDS: fluvoxaMINE MALEATE 50 MG TAB PO SCH (08:13)
[2021-09-15 10:47] LABS: Renin Activity 1.67 ng/mL/h (0.25-5.82)
--- NOTE | 2021-09-15 10:48 | Discharge Summary ---
Date of Service September 15, 2021 Admission HPI Per Admitting Provider 60yo female with a history of CAD s/p stents, poorly-controlled IDDM2, HTN, hypothyroidism, active tobacco use, OCD, anxiety, and multiple prior admissions for dizziness/vertigo presents for a two-day history of dizziness/vertigo and nausea. Patient has been admitted multiple times for similar symptoms, most recently 08/20/21 through 08/28/21. Patient notes poor appetite and occasional palpitations. Patient reports her symptoms feel similar to those that led to her recent admission. Also notes mild SOB though this is unchanged from her baseline. Endorse well as mild SOB which is unchanged from baseline. BSGs have been in the mid-300s though patient notes she usually runs this high. Also endorses intermittent RLQ pain though this is unchanged from baseline. Patient denies fever, vision changes, CP, diarrhea, dysuria, syncope, or other symptoms. Principal Diagnosis Gastroparesis, nausea/vomiting, hypokalemia, hypomagnesemia Discharge Exam Constitutional WD/WN, vitals as above + obese Eyes + anicteric sclerae Neck trachea midline, no thyromegaly Respiratory normal respiratory effort, lungs clear to auscultation Cardiovascular RRR, no murmur, no edema Gastrointestinal (Abdomen) normal bowel sounds, soft, nontender, no hepatosplenomegaly Musculoskeletal Extremities: extremities normal to inspection; no cyanosis and no clubbing Skin no rashes, warm and dry Neurologic moves all extremities and awake; no focal motor deficits Psychiatric A+Ox3, euthymic affect Discharge Data Allergies Allergy/AdvReac Type Severity Reaction Status Date / Time dulaglutide [From Trulicity] AdvReac Intermediate stomach Verified 09/06/21 20:59 pain albiglutide [From Tanzeum] AdvReac Unknown CAN'T Verified 09/06/21 20:59 REMEMBER Consultations 09/06/21 20:59 ED Decision to Admit Stat 09/07/21 00:21 Consult Gastroenterology Routine Ordered Studies 09/06/21 23:25 CT abd pelvis wo con Urgent 09/07/21 09:32 Fluoro video [FL video swallow] Routine 09/08/21 12:38 MR brain IAC wo/w con Routine 09/10/21 09:13 MR MRCP Routine Hospital Course (1) Hypokalemia: Severe. Now resolved for many days since replacement Multiple episodes of such with several requiring admission. Previously thought to be due to poor oral intake, vomiting, and HCTZ use. During recent hospital stay the HCTZ was stopped but it was uncertain if she was even on the HCTZ. Renin/stefano levels sent-still pending. Cont KCL 40meq/day on discharge Replacing magnesium daily as well Follow BMP magnesium as an outpatient with PCP (2) Hypomagnesemia: replaced multiple times this admission Cont PO mag supplementation on discharge and increase to tid. (3) Depression: Not well controlled. Depression w/ anxiety Increased home fluvoxamine to 50mg po bid needs f/u with Psych as outpt- set him up with [employer] for a support peer program (4) Vertigo: improved with making meclizine scheduled Cont meclizine to 25mg TID after discharge Numerous episodes over the last month. short-lived, <1 min duration during attacks. Vertigo quite bothersome. MRI brain/auditory canals neg for CVA, acoustic neuroma, etc. PT vestibular evaluation completed -- eleanor-hallpike was +. Treated with Artemio with improved symptoms. This is diagnostic of BPV. (5) Impetigo, unspecified: NASAL. much improved received 7 day course of ancef IV and doxy IV (to cover MRSA). -received bactroban BID to both nares (6) Dysphagia: appreciate GI consultation & speech eval. s/p video swallow. cricopharyngeal dysfunction noted on video swallow here easy to chew diet. EGD - 03/2021 - esophagus normal, mild gastritis only. MRCP 03/2021 without CBD stone/abnormalities. NUMEROUS Ct abd/pelvis negative except atrophic pancreas. (7) Nausea: Now improved with starting Reglan 05/2021 - Gastric emptying study normal. Multiple CT abd/pelvis, MRCP, KUB x-rays, MRI brain, cortisol - all normal or negative except ?dropped gallstones on most recent CT sitting next to liver. Uncertain if that could cause issues. Atrophy of pancreas seen on CTs - creon trial given her chronic diarrhea but this has not helped her nausea/abd bloating/abd pain-stopped EGD/colonoscopy 2021 unremarkable except gastritis. Only other test would be an ERCP looking for CBD issues that aren't being detected on MRCP. Previous hospitalist spoke with GI on 09/10-they advised repeat MRCP. This was completed and was normal - no CBD abnormalities. GI also advised reglan 5mg ac/hs --GI suggested that one can still have diabetic gastroparesis despite negative gastric emptying study. Reglan started and was having significant improvement on 09/11, but worsening on 09/12-increased to 10 Mg p.o. AC and able to tolerate small portions of food with meals suggest gastroparesis diet on discharge (8) Low back pain: previous t-spine CT imaging in March with DJD. CTA chest in March also unremarkable. 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 received lantus BID and Novolog here but convert back to home Humulin U-500 on discharge. restart home Farxiga on discharge-I do nt think this could cause hypokalemia follows with Endocrine as outpt (14) CAD (coronary artery disease): nothing ischemic at this time. cont statin, ACEi, Brilinta. Previously on metoprolol but this was stopped due to hypotension (15) Severe protein-calorie malnutrition: 12-13kg of weight loss over the last few months due to pancreatic insufficiency? (mod pancreatic atrophy on CTs) chronic vomiting and poor appetite? other pathology? f/u with PCP (16) DVT prophylaxis: lovenox daily was provided Plan PT, OT evals appreciated Disposition-stable for dc to home Total Time Total Time Spent Total Time Spent (In Minutes): 40 min Discharge Plan Discharge Items Patient Disposition: Home - Self-Care Reason For Visit: ACUTE HYPOKALEMIA, NAUSEA,DIZZINESS Discharge Diagnosis: Nausea from gastroparesis, hypokalemia, hypomagnesemia Condition on Discharge: Fair Activity: Resume your previous activity Non-emergency contact: Primary Care Provider Call non-emergency contact if: you have any medication questions and your symptoms worsen Follow-up/Referrals: Omer Marroquin MD [Primary Care Provider] - (Follow up within 1-2 weeks.) Diet: Carb Consistent or DM2 and Low Fat Diet Texture: Easy to Chew Addtl Attending Provider Instructions: You were admitted with low potassium and magnesium levels. This is likely secondary to your nausea and vomiting and some of your medications. Please follow the medication list carefully and only take the medications on your discharge list when you get home. Refills were called in for you for the medications you needed. For your nausea, you were diagnosed with suspected gastroparesis-this means your stomach doesn't empty the food out right away after you eat. You had improvement with being started on a medication called metoclopramide (Reglan) before each meal. Please continue taking this 30 min before each meal. You should also eat small portions often throughout the day rather than a large meal. Avoid eating bread products and foods like pancakes or waffles as these foods can swell in the stomach and make you feel sick to your stomach. Continue taking the magnesium tablets three times a day and also the potassium tablets 2 tabs each morning. Have your doctor check blood work to make sure your magnesium and potassium levels remain normal after you leave the hospital. Your fluvoxamine medication for depression was increased to twice a day. Please follow up with a Psychiatrist as an outpatient. Pending Studies at Discharge: Yes (Renin activity) Stand-Alone Forms: My [facility] [employer] Smoking Cessation Medications and DC Order Prescriptions: New acetaminophen [Tylenol Extra Strength] 500 mg Tablet 1,000 mg PO TID Qty: 60 0RF Rx Instructions: OTC diclofenac sodium [Voltaren Arthritis Pain] 1 % Gel 4 g EXT QID Qty: 100 0RF Rx Instructions: Apply to back at site of pain potassium chloride 20 mEq Tablet,Er Particles/Crystals 40 meq PO QAM Qty: 60 0RF meclizine 25 mg Tablet 25 mg PO TID Qty: 90 0RF Rx Instructions: for your dizziness metoclopramide HCl 10 mg Tablet 10 mg PO ACHS Qty: 120 0RF Rx Instructions: for your nausea and gastroparesis Continued famotidine 20 mg tablet 20 mg PO BID Qty: 180 3RF Rx Instructions: TAKES AT 1600 & 2400 lisinopril 20 mg tablet 20 mg PO BID Qty: 180 3RF Rx Instructions: TAKES AT 1600 & 2400 sucralfate 1 gram tablet 1 g PO ACHS 14 Days Qty: 42 0RF Brilinta 90 mg tablet 90 mg PO BID 90 Days Qty: 180 3RF Label Comments: "I dont know this medications." Rx Instructions: TAKES 1600 & 2400 (DME) pen needle, diabetic [BD Ultra-Fine [place] Pen Needle] 32 gauge x 5/32" needle See Dose Instructions .ROUTE .MEDSUPPLY Qty: 200 11RF Dose Instruction: As directed Rx Instructions: use 2 times daily or as directed by physician to monitor blood sugar Humulin R U-500 (Conc) Kwikpen 500 unit/mL (3 mL) insulin pen 20 - 30 unit subcut BID Rx Instructions: or as directed (30 units afternoon; 20 units at midnight) nystatin 100,000 unit/gram powder 1 applic topical BID PRN (Reason: Skin Irritation) atorvastatin 80 mg tablet 80 mg PO QPM levothyroxine 88 mcg tablet 88 mcg PO QPM pantoprazole 40 mg tablet,delayed release (DR/EC) 40 mg PO QPM Farxiga 10 mg tablet 10 mg PO QPM Changed magnesium oxide 400 mg (241.3 mg magnesium) tablet 400 mg PO TID Qty: 90 0RF Rx Instructions: TAKES AT 1600 & 2400 fluvoxamine 50 mg tablet 50 mg PO BID Qty: 60 0RF Discharge Orders: Discharge Order (Routine); Ordered 09/15/21 Ordered By: Oralia Nieves Admission Data Admit Date/Time: 09/06/21 23:25 Attending Provider: Oralia Nieves Admit Provider: Sincere Chavez Primary Care Provider: Omer Marroquin Other Providers: Laurent Gaytan ; Parvez Palma Other Interventions: Discharge Summary Assessment (RN) Last Done: 09/15/21 10:11 Coding Level of Care Code D/C DAY MANAGEMENT >30 MINS Diagnoses Hypokalemia E87.6 Hypomagnesemia E83.42 Depression F32.9 Vertigo R42 Impetigo, unspecified L01.00 Dysphagia R13.10 Nausea R11.0 Low back pain M54.5 Hypothyroidism E03.9 Hypertension I10 Tobacco abuse Z72.0 Dyslipidemia E78.5 Diabetes type 2, uncontrolled E11.65 CAD (coronary artery disease) I25.10 Coronary Disease-Associated Artery/Lesion type: unga artery [place] vs. transplanted heart: unga heart Associated angina: unspecified whether angina present Severe protein-calorie malnutrition E43 DVT prophylaxis Z29.9
== END 2021-09-15 13:00 | disposition home or self-care (01) | DRG 640 ==
LOC: ED 20:05 → 2S 23:25 → SUATTDRO 23:25 → 2S 23:50
DX: I24.8 Other forms of acute ischemic heart disease; I25.10 Atherosclerotic heart disease of native coronary artery without angina pectoris; R63.4 Abnormal weight loss; E83.42 Hypomagnesemia; H81.10 Benign paroxysmal vertigo, unspecified ear; E87.6 Hypokalemia; L01.00 Impetigo, unspecified; Z79.4 Long term (current) use of insulin; E78.5 Hyperlipidemia, unspecified; E11.43 Type 2 diabetes mellitus with diabetic autonomic (poly)neuropathy; Z79.890 Hormone replacement therapy; Z68.34 Body mass index [BMI] 34.0-34.9, adult; K86.89 Other specified diseases of pancreas; Z95.5 Presence of coronary angioplasty implant and graft; F32.A Depression, unspecified; Z66 Do not resuscitate; F17.210 Nicotine dependence, cigarettes, uncomplicated; E43 Unspecified severe protein-calorie malnutrition; I25.2 Old myocardial infarction; E86.0 Dehydration; E66.9 Obesity, unspecified; E11.65 Type 2 diabetes mellitus with hyperglycemia; E11.21 Type 2 diabetes mellitus with diabetic nephropathy; R13.10 Dysphagia, unspecified; E03.9 Hypothyroidism, unspecified

== ENCOUNTER 2021-11-20 19:33 | Inpatient (IN) ==
[2021-11-20] MEDS ORDERED: ONDANSETRON INJ 2 MG/ML 2 ML VIAL ONE (19:58)
[2021-11-20] MEDS ORDERED: ONDANSETRON INJ 2 MG/ML 2 ML VIAL IV STA (19:59)
[2021-11-20 20:07] LABS: Basophils # (auto) 0.03 K/uL (0-0.2); Basophils % (auto) 0.2 %; Eosinophils # (auto) 0.05 K/uL (0-0.50); Eosinophils % (auto) 0.4 %; Hematocrit (blood only) 43.4 % (34.1-44.9); Hemoglobin 14.9 g/dl (12.0-16.0); Immature Granulocytes # (auto) 0.03 K/uL (0.00-0.02); Immature Granulocytes % (auto) 0.2 %; Lymphocytes # (auto) 1.87 K/uL (1.2-3.4); Lymphocytes % (auto) 14.4 %; Mean Corpuscular Hemoglobin 29.3 pg (25.0-34.0); Mean Corpuscular Hgb Conc 34.3 g/dL (32.0-36.0); Mean Corpuscular Volume 85.3 fL (80.0-100.0); Mean Platelet Volume 11.1 fL (9.4-12.3); Monocytes # (auto) 0.61 K/uL (0.24-0.82); Monocytes % (auto) 4.7 %; Neutrophils # (auto) 10.43 K/uL (1.4-6.5); Neutrophils % (auto) 80.1 %; Platelet Count 358 K/uL (130-400); RDW Coefficient of Variation 14.2 % (11.5-14.5); RDW Standard Deviation 43.6 fL (36.4-46.3); Red Blood Count 5.09 M/uL (3.93-5.22); White Blood Count 13.02 K/ul (4.8-10.8)
[2021-11-20 20:23] LABS: Partial Thromboplastin Ratio 0.8; Partial Thromboplastin Time 22.9 Seconds (21.0-31.0); Prothrombin Time 10.5 Seconds (9.0-12.0)
[2021-11-20 20:34] LABS: Albumin Globulin Ratio 1.1 (0.9-2); Albumin Level 3.3 gm/dl (3.4-5.0); BUN Creatinine Ratio 3.2 (10-20); Bilirubin,Total 0.3 mg/dl (0.2-1.0); Calcium 7.8 mg/dl (8.5-10.1); Creatinine Clr Calc Pharmacy 56.8 ml/min; Est GFR (African American) 75.4 ml/min; Globulin 3.1 gm/dl (2.5-4.0); Potassium 2.3 mmol/L (3.5-5.1); Total Protein 6.4 gm/dl (6.0-8.3)
[2021-11-20] MEDS ORDERED: POTASSIUM CHLORIDE CRTAB 20 MEQ TABCR PO STA (22:53)
[2021-11-20] MEDS ORDERED: NSS + 20MEQ KCL 20 MEQ/1,000 ML BAG IV SCH (23:00)
[2021-11-20 23:25] LABS: Magnesium 1.1 mg/dl (1.7-2.4); Phosphorus 2.3 mg/dl (2.5-4.9)
[2021-11-20] MEDS: MAGNESIUM SULFATE / D5W 1 GM/100 ML BAG IV SCH (23:44)
--- NOTE | 2021-11-21 00:01 | Emergency Department Note ---
History of Present Illness General Chief complaint: Chest Pain Stated complaint: CHEST PAINS, NAUSEA Time Seen by Provider: 11/20/21 22:41 Source: patient Mode of arrival: EMS Limitations: no limitations History of Present Illness Provider complaint: Chest pain Onset (ago): day(s) 1 Maximum Pain Intensity: 6 This is a 61-year-old female presents emergency department complaining of chest pain which started yesterday morning. She states pain is in the central left c hest with mild radiation to the left posterior shoulder. She denies any other radiation of pain or other accompanying pains. She states she was mildly nauseated but denied any accompanying dizziness or shortness of breath. She denies coming vomiting. Denies any recent fevers, chills, or URI symptoms. She states she does take potassium supplements due to history of low potassium. She is uncertain why this is. She denies any history of kidney problems. She states she is also supposed to be taking magnesium supplements but does not because they give her diarrhea. Patient states she has previously had a heart attack and does have a stent but cannot recall when her heart attack was. She states she does not follow with cardiology. She states her blood sugars are poorly controlled. Home Medications Medication Instructions Recorded Confirmed Type nystatin 100,000 unit/gram topical 1 applic topical BID PRN Skin 08/20/21 11/20/21 History powder Irritation famotidine 20 mg tablet 20 mg PO BID #180 tabs 09/05/21 11/20/21 Rx ticagrelor 90 mg tablet (Brilinta) 90 mg PO BID 90 days #180 tabs 09/05/2106/08 Rx pantoprazole 40 mg tablet,delayed 40 mg PO QPM 09/06/21 11/20/21 History release pen needle, diabetic 32 gauge x #200 ea 09/13/21 11/03/21 Rx 5/32" (BD Ultra-Fine [place] Pen Needle) acetaminophen 500 mg tablet 1,000 mg PO TID #60 tabs 09/15/21 11/20/21 Rx (Tylenol Extra Strength) fluvoxamine 50 mg tablet 50 mg PO BID #60 tabs 09/15/21 11/20/21 Rx atorvastatin 80 mg tablet 80 mg PO QPM #90 tabs 10/03/21 11/20/21 Rx potassium chloride 20 mEq 40 meq PO QAM #180 tabs 10/03/21 11/20/21 Rx tablet,extended release(part/cryst) sucralfate 1 gram tablet 1 g PO ACHS 30 days #120 tabs 10/03/21 11/20/21 Rx meclizine 25 mg tablet 25 mg PO TID PRN dizziness 10/11/21 11/20/21 History blood-glucose meter (Prodigy 10/15/21 11/03/21 History Autocode Meter kit) levothyroxine 88 mcg tablet 88 mcg PO DAILY #30 tabs 10/15/21 11/20/21 Rx magnesium chloride 70 mg 70 mg PO DAILY 90 days #90 tabs 10/23/21 11/20/21 Rx (magnesium chloride) tablet,delayed release insulin regular hum U-500 conc 500 10 - 25 unit subcut BID 11/01/21 11/20/21 History unit/mL(3 mL) subcut pen (Humulin R U-500 (Conc) Insulin Kwikpen) diclofenac sodium 1 % topical gel 4 g EXT QID PRN Pain 11/20/21 11/20/21 History (Voltaren Arthritis Pain) metoclopramide HCl 10 mg tablet 10 mg PO ACHS #120 tabs 11/21/21 Rx Allergies Allergy/AdvReac Type Severity Reaction Status Date / Time dulaglutide [From Trulicity] AdvReac Intermediate stomach Verified 11/20/21 23:05 pain albiglutide [From Tanzeum] AdvReac Unknown CAN'T Verified 11/20/21 23:05 REMEMBER Past Med/Surg History Medical History Albuminuria Anxiety CAD (coronary artery disease) No remaining occlusive disease after 2 LAD drug eluting stents 10/22/20. Follows with Dr. Harris Chronic headaches Depression Diabetes type 2, uncontrolled IDDM Diabetic nephropathy associated with type 2 diabetes mellitus Dyslipidemia Hypertension Hypokalemia Hypomagnesemia Hypothyroidism NSTEMI (non-ST elevated myocardial infarction) 10/22/2020 s/p 2 CHANTAL Obesity Osteoarthritis Tobacco abuse Vulvitis Surgical History History of cardiac catheterization 10/22/2020 Dominant: Right Left Main (% Stenosis): Normal LAD (% Stenosis): Proximal (99) and Mid (75) Circumflex (% Stenosis): Normal (luminal irregularities) RCA (% Stenosis): Normal (Luminal irregularities) 2 CHANTAL to LAD History of cholecystectomy History of dental surgery History of tonsillectomy S/P coronary artery stent placement 2 CHANTAL to LAD 10/22/2020 Family History Unknown Diabetes Thyroid disorder Father Diabetes Other No family history of adverse response to anesthesia Denies family history of Ovarian cancer Prostate cancer Breast cancer Colorectal cancer Uterine cancer Social History (Updated 10/19/21 @ 13:02 by ALBARO Madrigal) Smoking Status: Current every day smoker Tobacco Type: Cigarettes packs per day: 0.5; Cigarettes Per Day: 10 cigs; Second Hand Exposure: No; Hx Alcohol Use: No Hx Substance Use: No Preferred Language: Indonesian Communication Ability: Effective Visual Impairment: No Limitations Environmental Safety Specialist Required: No Beliefs That Will Affect Care: None marital status: Single Current Living Situation: Alone current occupational status: disabled How many Children do You have: 0 Feels Safe at Home: Yes Safety Concerns Comment: Gets nervous sometimes because she lives alone, gets shaky from anxiety caffeine: Yes Dental Care, Regularly: No Physical Activity Frequency: Does not Exercise Seatbelt Use: always Sunscreen Use: No Assistive Devices: Glasses Review of Systems A total of 10 systems reviewed and were otherwise negative All systems reviewed & are unremarkable except as noted in HPI & below Physical Exam Vital Signs Vital Signs - 24 hr 11/21/21 23:18 11/22/21 02:48 11/22/21 08:20 Temperature 36.4 C L 36.5 C 36.6 C Temperature Source Oral Oral Oral Pulse Rate Pulse Rate [Finger] 59 L 60 58 L Respiratory Rate 18 20 18 Blood Pressure [Left Arm] 114/72 103/65 135/86 Blood Pressure Mean [Left Arm] 86 77 102 Blood Pressure Position [Left Arm] Lying Lying Pulse Oximetry 98 92 95 Oxygen Delivery Method Room Air Room Air Room Air 11/22/21 08:00 Temperature Temperature Source Pulse Rate 54 L Pulse Rate [Finger] Respiratory Rate Blood Pressure [Left Arm] Blood Pressure Mean [Left Arm] Blood Pressure Position [Left Arm] Pulse Oximetry Oxygen Delivery Method GENERAL: alert, unwell appearing, well nourished, no distress, non-toxic EYE EXAM: normal conjunctiva, PERRL and EOM's grossly intact OROPHARYNX: no exudate, no erythema, lips, buccal mucosa, and tongue normal and mucous membranes are moist NECK: supple, no nuchal rigidity, no adenopathy, non-tender LUNGS: Clear to auscultation. Normal chest wall mechanics, no w/r/r HEART: no murmurs, S1 normal and S2 normal, no reproducible tenderness with chest wall palpation ABDOMEN: abdomen soft, non-tender, normo-active bowel sounds, no masses, no rebound or guarding. BACK: Back is symmetrical on inspection and there is no deformity, no midline tenderness, no CVA tenderness. SKIN: no rashes and no bruising UPPER EXTREMITIES: upper extremities are grossly normal. FROM, nml pulses b/l. LOWER EXTREMITIES: No pitting edema. FROM, nml pulses b/l. NEURO EXAM: Normal sensorium, cranial nerves II-XII grossly intact, normal speech, no gross weakness of arms, no gross weakness of legs. Gross sensation intact. Course Administered Medications Acetaminophen (Acetaminophen 500 Mg Tab) 1,000 mg PO TID TONI Stop: 12/21/21 08:59 Last Admin: 11/22/21 20:26 Dose: 1,000 mg Documented By: Admin: 11/22/21 13:33 Dose: 1,000 mg Documented By: Admin: 11/22/21 09:40 Dose: 1,000 mg Documented By: Admin: 11/21/21 21:07 Dose: 1,000 mg Documented By: Admin: 11/21/21 13:27 Dose: 1,000 mg Documented By: Admin: 11/21/21 04:07 Dose: 1,000 mg Documented By: Atorvastatin Calcium (Atorvastatin 40 Mg Tab) 80 mg PO QPM TONI Stop: 12/21/21 20:59 Last Admin: 11/22/21 20:24 Dose: 80 mg Documented By: Admin: 11/21/21 21:07 Dose: 80 mg Documented By: Famotidine (Famotidine 20 Mg Tab) 20 mg PO BID@0000,1600 TONI Stop: 12/21/21 15:59 Last Admin: 11/22/21 20:24 Dose: 20 mg Documented By: Admin: 11/22/21 17:00 Dose: 20 mg Documented By: Admin: 11/21/21 23:16 Dose: 20 mg Documented By: Admin: 11/21/21 15:44 Dose: 20 mg Documented By: ROLY Fluvoxamine Maleate (Fluvoxamine Maleate 50 Mg Tab) 50 mg PO BID TONI Stop: 12/21/21 08:59 Last Admin: 11/22/21 20:57 Dose: 50 mg Documented By: Admin: 11/22/21 09:41 Dose: 50 mg Documented By: Admin: 11/21/21 21:07 Dose: 50 mg Documented By: Admin: 11/21/21 08:40 Dose: 50 mg Documented By: ROLY Hydroxyzine HCl (Hydroxyzine Hcl 10 Mg Tab) 10 mg PO TID PRN PRN Reason: anxiety Stop: 12/21/21 01:32 Last Admin: 11/21/21 08:39 Dose: 10 mg Documented By: ROLY Insulin Aspart (Insulin Aspart Per Unit) 0 units SC ACHS TONI Stop: 12/21/21 07:29 Last Admin: 11/22/21 20:57 Dose: 7 units Documented By: ANNE Co-signed By: DANETTE Admin: 11/22/21 17:50 Dose: 3 units Documented By: GIBRAN Co-signed By: LADY Admin: 11/22/21 12:39 Dose: 4 units Documented By: LADY Co-signed By: LEVI Admin: 11/22/21 09:37 Dose: 10 units Documented By: GIBRAN Co-signed By: LADY Admin: 11/21/21 21:09 Dose: 1 units Documented By: YAMILE Co-signed By: MARIEL Admin: 11/21/21 17:12 Dose: 6 units Documented By: ROLY Co-signed By: VIANCA Admin: 11/21/21 12:36 Dose: 3 units Documented By: ROLY Co-signed By: VIANCA Admin: 11/21/21 08:49 Dose: 5 units Documented By: ROLY Co-signed By: VIANCA Insulin Glargine (Lantus Per Unit Charge) 15 units SQ HS TONI Stop: 12/21/21 20:59 Last Admin: 11/22/21 20:57 Dose: 15 units Documented By: ANNE Co-signed By: DANETTE Admin: 11/21/21 21:09 Dose: 15 units Documented By: YAMILE Co-signed By: MAC Levothyroxine Sodium (Levothyroxine Sodium 88 Mcg Tablet) 88 mcg PO DAILYBB TONI Stop: 12/21/21 06:29 Last Admin: 11/22/21 05:23 Dose: 88 mcg Documented By: Admin: 11/21/21 05:12 Dose: 88 mcg Documented By: Metoclopramide HCl (Metoclopramide Hcl 10 Mg Tablet) 10 mg PO ACHS TONI Stop: 12/21/21 07:29 Last Admin: 11/22/21 20:25 Dose: 10 mg Documented By: Admin: 11/22/21 17:00 Dose: 10 mg Documented By: Admin: 11/22/21 12:16 Dose: 10 mg Documented By: Admin: 11/22/21 09:40 Dose: 10 mg Documented By: Admin: 11/21/21 21:11 Dose: 10 mg Documented By: Admin: 11/21/21 15:44 Dose: 10 mg Documented By: [facility] Admin: 11/21/21 12:35 Dose: 10 mg Documented By: Admin: 11/21/21 08:39 Dose: 10 mg Documented By: JULIO Miscellaneous (Remove Nicoderm Patch) 1 each N/A DAILY@0859 [facility] Stop: 12/21/21 08:58 Last Admin: 11/22/21 09:44 Dose: Not Given Documented By: Admin: 11/21/21 08:39 Dose: 1 each Documented By: [facility] Nicotine (Nicotine 14 Mg/24 Hr Patch) 14 mg TD QAM TONI Stop: 12/21/21 08:59 Last Admin: 11/22/21 09:44 Dose: 14 mg Documented By: Admin: 11/21/21 08:39 Dose: 14 mg Documented By: [facility] Pantoprazole Sodium (Pantoprazole 40 Mg Tab) 40 mg PO QPM TONI Stop: 12/21/21 20:59 Last Admin: 11/22/21 20:25 Dose: 40 mg Documented By: Admin: 11/21/21 21:06 Dose: 40 mg Documented By: Potassium Chloride (Potassium Chloride Crtab 20 Meq Tabcr) 40 meq PO BID TONI Stop: 12/22/21 09:29 Last Admin: 11/22/21 20:25 Dose: 40 meq Documented By: Admin: 11/22/21 09:42 Dose: 40 meq Documented By: GIBRAN Sucralfate (Sucralfate 1 Gm Tab) 1 gm PO ACHS TONI Stop: 12/21/21 07:29 Last Admin: 11/22/21 20:27 Dose: 1 gm Documented By: Admin: 11/22/21 16:59 Dose: 1 gm Documented By: Admin: 11/22/21 12:16 Dose: 1 gm Documented By: Admin: 11/22/21 09:41 Dose: 1 gm Documented By: Admin: 11/21/21 21:06 Dose: 1 gm Documented By: Admin: 11/21/21 15:44 Dose: 1 gm Documented By: Admin: 11/21/21 12:35 Dose: 1 gm Documented By: Admin: 11/21/21 08:39 Dose: 1 gm Documented By: ROLY Ticagrelor (Ticagrelor 90 Mg Tab) 90 mg PO BID TONI Stop: 12/21/21 08:59 Last Admin: 11/22/21 20:25 Dose: 90 mg Documented By: Admin: 11/22/21 11:02 Dose: 90 mg Documented By: Admin: 11/21/21 21:29 Dose: 90 mg Documented By: Admin: 11/21/21 08:38 Dose: 90 mg Documented By: ROLY Discontinued Medications Furosemide (Furosemide Inj 20 Mg/2 Ml Vial) 20 mg IV ONE ONE Stop: 11/22/21 16:56 Last Admin: 11/22/21 18:00 Dose: 20 mg Documented By: GIBRAN Potassium Chloride/Sodium Chloride (Normal Saline W/20 Meq Kcl) 20 meq in 1,000 mls @ 80 mls/hr IV .[id number] TONI; Protocol Stop: 12/20/21 22:59 Last Infusion: 11/21/21 01:00 Dose: 0 mls/hr Documented By: Admin: 11/20/21 23:07 Dose: 80 mls/hr Documented By: ROSY Magnesium Sulfate/Dextrose (Magnesium Sulfate / D5w) 1 gm in 100 mls @ 100 mls/hr IV Q1H TONI Stop: 11/21/21 01:26 Last Infusion: 11/21/21 03:32 Dose: 0 mls/hr Documented By: Admin: 11/21/21 00:47 Dose: 100 mls/hr Documented By: Infusion: 11/21/21 00:46 Dose: 0 mls/hr Documented By: Admin: 11/20/21 23:44 Dose: 100 mls/hr Documented By: ROSY Magnesium Sulfate/Dextrose (Magnesium Sulfate / D5w) 1 gm in 100 mls @ 50 mls/hr IV Q2H TONI Stop: 11/21/21 11:59 Last Infusion: 11/21/21 13:11 Dose: 0 mls/hr Documented By: Admin: 11/21/21 11:00 Dose: 50 mls/hr Documented By: Infusion: 11/21/21 10:40 Dose: 50 mls/hr Documented By: Admin: 11/21/21 08:40 Dose: 50 mls/hr Documented By: Infusion: 11/21/21 08:40 Dose: 50 mls/hr Documented By: [facility] Admin: 11/21/21 07:21 Dose: 50 mls/hr Documented By: Infusion: 11/21/21 07:12 Dose: 50 mls/hr Documented By: Admin: 11/21/21 05:12 Dose: 50 mls/hr Documented By: Infusion: 11/21/21 05:05 Dose: 50 mls/hr Documented By: Admin: 11/21/21 03:05 Dose: 50 mls/hr Documented By: Calcium Gluconate 1,000 mg/ (Dextrose) 60 mls @ 240 mls/hr IV NOW ONE Stop: 11/21/21 01:59 Last Infusion: 11/21/21 03:32 Dose: 0 mls/hr Documented By: Admin: 11/21/21 02:27 Dose: 240 mls/hr Documented By: Potassium Phosphate 15 mmol/ (Sodium Chloride) 255 mls @ 88 mls/hr IV ONE ONE Stop: 11/21/21 04:38 Last Infusion: 11/21/21 07:56 Dose: 0 mls/hr Documented By: [facility] Admin: 11/21/21 02:33 Dose: 88 mls/hr Documented By: Potassium Chloride (K Esa / Wtr) 10 meq in 100 mls @ 100 mls/hr IV Q1H TONI Stop: 11/22/21 14:29 Last Infusion: 11/22/21 16:30 Dose: 0 mls/hr Documented By: Admin: 11/22/21 15:10 Dose: 80 mls/hr Documented By: Infusion: 11/22/21 14:47 Dose: 80 mls/hr Documented By: Admin: 11/22/21 13:32 Dose: 80 mls/hr Documented By: Infusion: 11/22/21 13:15 Dose: 100 mls/hr Documented By: Admin: 11/22/21 12:15 Dose: 100 mls/hr Documented By: Infusion: 11/22/21 12:13 Dose: 100 mls/hr Documented By: Admin: 11/22/21 11:13 Dose: 100 mls/hr Documented By: LADY Insulin Aspart (Insulin Aspart Per Unit) 0 units SC NOW ONE Stop: 11/21/21 02:46 Last Admin: 11/21/21 03:15 Dose: 4 units Documented By: YAMILE Co-signed By: MENG Insulin Glargine (Lantus Per Unit Charge) 15 units SQ NOW ONE Stop: 11/21/21 02:46 Last Admin: 11/21/21 03:17 Dose: 15 units Documented By: YAMILE Co-signed By: MENG Loperamide HCl (Loperamide Hcl 2 Mg Cap) 2 mg PO NOW STA Stop: 11/21/21 17:09 Last Admin: 11/22/21 09:23 Dose: Not Given Documented By: LADY Loperamide HCl (Loperamide Hcl 2 Mg Cap) 4 mg PO NOW STA Stop: 11/21/21 17:09 Last Admin: 11/21/21 18:29 Dose: Not Given Documented By: ROLY Ondansetron HCl (Ondansetron Inj 2 Mg/Ml 2 Ml Vial) Confirm Administered Dose 4 mg .ROUTE .STK-MED ONE Stop: 11/20/21 19:59 Last Admin: 11/20/21 20:00 Dose: Not Given Documented By: BRIAN Ondansetron HCl (Ondansetron Inj 2 Mg/Ml 2 Ml Vial) 4 mg IV NOW STA Stop: 11/20/21 20:00 Last Admin: 11/20/21 20:00 Dose: 4 mg Documented By: BRIAN Potassium Chloride (Potassium Chloride Crtab 20 Meq Tabcr) 40 meq PO NOW STA Stop: 11/20/21 22:54 Last Admin: 11/20/21 23:07 Dose: 40 meq Documented By: ASW Potassium Chloride (Potassium Chloride Crtab 20 Meq Tabcr) 40 meq PO QAM TONI Stop: 12/21/21 08:59 Last Admin: 11/22/21 10:15 Dose: 40 meq Documented By: Admin: 11/21/21 08:38 Dose: 40 meq Documented By: MTM Critical Care Time Critical Care Time: Yes Total Critical Care Time: 35 Critical care of 35 min performed to assess and manage high likelihood of life- threatening electrolyte abnormalities, involving labs and imaging performed with assessment to evaluate electrolyte abnormalities diagnosis with frequent reassessment. This time includes bedside time, treatment discussions with osmar ent/family/consultants, documentation time and excludes procedure time. Medical Decision Making Differential Diagnosis Differential diagnoses includes but is not limited to acute coronary syndrome, myocardial infarction, pericarditis, pulmonary embolus, aortic dissection, pneumonia, pneumothorax, musculoskeletal, shingles, esophageal. Medical Records Attestation: I reviewed the patient's medical records. Home Medications Current Medication List: was personally reviewed by me Laboratory Data Attestation: I reviewed the patient's lab results. Result diagrams: 11/22/21 07:00 11/22/21 14:58 Lab Results 11/20/21 11/20/21 11/20/21 Range/Units 19:45 19:45 19:45 WBC 13.02 H (4.8-10.8) K/ul RBC 5.09 (3.93-5.22) M/uL Hgb 14.9 (12.0-16.0) g/dl Hct 43.4 (34.1-44.9) % MCV 85.3 (80.0-100.0) fL MCH 29.3 (25.0-34.0) pg MCHC 34.3 (32.0-36.0) g/dL RDW Std Deviation 43.6 (36.4-46.3) fL RDW Coeff of Umair 14.2 (11.5-14.5) % Plt Count 358 (130-400) K/uL MPV 11.1 (9.4-12.3) fL Immature Gran % (Auto) 0.2 % Neut % (Auto) 80.1 % Lymph % (Auto) 14.4 % [place] % (Auto) 4.7 % Eos % (Auto) 0.4 % Baso % (Auto) 0.2 % Neut # (Auto) 10.43 H (1.4-6.5) K/uL Lymph # (Auto) 1.87 (1.2-3.4) K/uL [place] # (Auto) 0.61 (0.24-0.82) K/uL Eos # (Auto) 0.05 (0-0.50) K/uL Baso # (Auto) 0.03 (0-0.2) K/uL Immature Gran # (Auto) 0.03 H (0.00-0.02) K/uL PT 10.5 (9.0-12.0) Seconds INR 1.0 (0.9-1.1) APTT 22.9 (21.0-31.0) Seconds PTT Ratio 0.8 Sodium 140 (136-145) mmol/L Potassium 2.3 L* (3.5-5.1) mmol/L Chloride 101 (98-107) mmol/L Carbon Dioxide 24 (21-32) mmol/L Anion Gap 15 H (3-11) BUN 3 L (6-23) mg/dl Creatinine 0.94 (0.6-1.2) mg/dl Est Cr Clr Drug Dosing 56.8 ml/min Est GFR ( Amer) 75.4 ml/min Est GFR (Non-Af Amer) 65.0 ml/min BUN/Creatinine Ratio 3.2 L (10-20) Glucose 254 H (70-99(Fasting)) mg/dl POC Glucose (70-99) mg/dl Calcium 7.8 L (8.5-10.1) mg/dl Phosphorus (2.5-4.9) mg/dl Magnesium (1.7-2.4) mg/dl Total Bilirubin 0.3 (0.2-1.0) mg/dl Direct Bilirubin (0-0.2) mg/dl AST 34 (13-39) U/L ALT 25 (7-52) U/L Alkaline Phosphatase 179 H (34-104) U/L Troponin I High Sens 14.0 (0-14) pg/ml Total Protein 6.4 (6.0-8.3) gm/dl Albumin 3.3 L (3.4-5.0) gm/dl Globulin 3.1 (2.5-4.0) gm/dl Albumin/Globulin Ratio 1.1 (0.9-2) Procalcitonin (0-0.5) ng/ml TSH (0.300-4.500) uIu/ml SARS-CoV-2, RNA, NAAT (NEGATIVE) 11/20/21 11/20/21 11/20/21 Range/Units 19:45 19:54 19:54 WBC (4.8-10.8) K/ul RBC (3.93-5.22) M/uL Hgb (12.0-16.0) g/dl Hct (34.1-44.9) % MCV (80.0-100.0) fL MCH (25.0-34.0) pg MCHC (32.0-36.0) g/dL RDW Std Deviation (36.4-46.3) fL RDW Coeff of Umair (11.5-14.5) % Plt Count (130-400) K/uL MPV (9.4-12.3) fL Immature Gran % (Auto) % Neut % (Auto) % Lymph % (Auto) % [place] % (Auto) % Eos % (Auto) % Baso % (Auto) % Neut # (Auto) (1.4-6.5) K/uL Lymph # (Auto) (1.2-3.4) K/uL [place] # (Auto) (0.24-0.82) K/uL Eos # (Auto) (0-0.50) K/uL Baso # (Auto) (0-0.2) K/uL Immature Gran # (Auto) (0.00-0.02) K/uL PT (9.0-12.0) Seconds INR (0.9-1.1) APTT (21.0-31.0) Seconds PTT Ratio Sodium (136-145) mmol/L Potassium (3.5-5.1) mmol/L Chloride (98-107) mmol/L Carbon Dioxide (21-32) mmol/L Anion Gap (3-11) BUN (6-23) mg/dl Creatinine (0.6-1.2) mg/dl Est Cr Clr Drug Dosing ml/min Est GFR ( Amer) ml/min Est GFR (Non-Af Amer) ml/min BUN/Creatinine Ratio (10-20) Glucose (70-99(Fasting)) mg/dl POC Glucose (70-99) mg/dl Calcium (8.5-10.1) mg/dl Phosphorus 2.3 L (2.5-4.9) mg/dl Magnesium 1.1 L (1.7-2.4) mg/dl Total Bilirubin (0.2-1.0) mg/dl Direct Bilirubin (0-0.2) mg/dl AST (13-39) U/L ALT (7-52) U/L Alkaline Phosphatase (34-104) U/L Troponin I High Sens (0-14) pg/ml Total Protein (6.0-8.3) gm/dl Albumin (3.4-5.0) gm/dl Globulin (2.5-4.0) gm/dl Albumin/Globulin Ratio (0.9-2) Procalcitonin < 0.05 (0-0.5) ng/ml TSH 0.789 (0.300-4.500) uIu/ml SARS-CoV-2, RNA, NAAT (NEGATIVE) 11/20/21 11/20/21 11/20/21 Range/Units 19:58 21:42 22:16 WBC (4.8-10.8) K/ul RBC (3.93-5.22) M/uL Hgb (12.0-16.0) g/dl Hct (34.1-44.9) % MCV (80.0-100.0) fL MCH (25.0-34.0) pg MCHC (32.0-36.0) g/dL RDW Std Deviation (36.4-46.3) fL RDW Coeff of Umair (11.5-14.5) % Plt Count (130-400) K/uL MPV (9.4-12.3) fL Immature Gran % (Auto) % Neut % (Auto) % Lymph % (Auto) % [place] % (Auto) % Eos % (Auto) % Baso % (Auto) % Neut # (Auto) (1.4-6.5) K/uL Lymph # (Auto) (1.2-3.4) K/uL [place] # (Auto) (0.24-0.82) K/uL Eos # (Auto) (0-0.50) K/uL Baso # (Auto) (0-0.2) K/uL Immature Gran # (Auto) (0.00-0.02) K/uL PT (9.0-12.0) Seconds INR (0.9-1.1) APTT (21.0-31.0) Seconds PTT Ratio Sodium (136-145) mmol/L Potassium (3.5-5.1) mmol/L Chloride (98-107) mmol/L Carbon Dioxide (21-32) mmol/L Anion Gap (3-11) BUN (6-23) mg/dl Creatinine (0.6-1.2) mg/dl Est Cr Clr Drug Dosing ml/min Est GFR ( Amer) ml/min Est GFR (Non-Af Amer) ml/min BUN/Creatinine Ratio (10-20) Glucose (70-99(Fasting)) mg/dl POC Glucose 240 H 172 H (70-99) mg/dl Calcium (8.5-10.1) mg/dl Phosphorus (2.5-4.9) mg/dl Magnesium (1.7-2.4) mg/dl Total Bilirubin (0.2-1.0) mg/dl Direct Bilirubin (0-0.2) mg/dl AST (13-39) U/L ALT (7-52) U/L Alkaline Phosphatase (34-104) U/L Troponin I High Sens (0-14) pg/ml Total Protein (6.0-8.3) gm/dl Albumin (3.4-5.0) gm/dl Globulin (2.5-4.0) gm/dl Albumin/Globulin Ratio (0.9-2) Procalcitonin (0-0.5) ng/ml TSH (0.300-4.500) uIu/ml SARS-CoV-2, RNA, NAAT NEGATIVE (NEGATIVE) 11/21/21 11/21/21 11/21/21 Range/Units 01:58 02:05 06:25 WBC (4.8-10.8) K/ul RBC (3.93-5.22) M/uL Hgb (12.0-16.0) g/dl Hct (34.1-44.9) % MCV (80.0-100.0) fL MCH (25.0-34.0) pg MCHC (32.0-36.0) g/dL RDW Std Deviation (36.4-46.3) fL RDW Coeff of Umair (11.5-14.5) % Plt Count (130-400) K/uL MPV (9.4-12.3) fL Immature Gran % (Auto) % Neut % (Auto) % Lymph % (Auto) % [place] % (Auto) % Eos % (Auto) % Baso % (Auto) % Neut # (Auto) (1.4-6.5) K/uL Lymph # (Auto) (1.2-3.4) K/uL [place] # (Auto) (0.24-0.82) K/uL Eos # (Auto) (0-0.50) K/uL Baso # (Auto) (0-0.2) K/uL Immature Gran # (Auto) (0.00-0.02) K/uL PT (9.0-12.0) Seconds INR (0.9-1.1) APTT (21.0-31.0) Seconds PTT Ratio Sodium (136-145) mmol/L Potassium (3.5-5.1) mmol/L Chloride (98-107) mmol/L Carbon Dioxide (21-32) mmol/L Anion Gap (3-11) BUN (6-23) mg/dl Creatinine (0.6-1.2) mg/dl Est Cr Clr Drug Dosing ml/min Est GFR ( Amer) ml/min Est GFR (Non-Af Amer) ml/min BUN/Creatinine Ratio (10-20) Glucose (70-99(Fasting)) mg/dl POC Glucose 239 H (70-99) mg/dl Calcium (8.5-10.1) mg/dl Phosphorus 4.6 D (2.5-4.9) mg/dl Magnesium 2.1 (1.7-2.4) mg/dl Total Bilirubin (0.2-1.0) mg/dl Direct Bilirubin (0-0.2) mg/dl AST (13-39) U/L ALT (7-52) U/L Alkaline Phosphatase (34-104) U/L Troponin I High Sens 13.3 12.9 (0-14) pg/ml Total Protein (6.0-8.3) gm/dl Albumin (3.4-5.0) gm/dl Globulin (2.5-4.0) gm/dl Albumin/Globulin Ratio (0.9-2) Procalcitonin (0-0.5) ng/ml TSH (0.300-4.500) uIu/ml SARS-CoV-2, RNA, NAAT (NEGATIVE) 11/21/21 11/21/21 11/21/21 Range/Units 07:58 10:16 11:15 WBC (4.8-10.8) K/ul RBC (3.93-5.22) M/uL Hgb (12.0-16.0) g/dl Hct (34.1-44.9) % MCV (80.0-100.0) fL MCH (25.0-34.0) pg MCHC (32.0-36.0) g/dL RDW Std Deviation (36.4-46.3) fL RDW Coeff of Umair (11.5-14.5) % Plt Count (130-400) K/uL MPV (9.4-12.3) fL Immature Gran % (Auto) % Neut % (Auto) % Lymph % (Auto) % [place] % (Auto) % Eos % (Auto) % Baso % (Auto) % Neut # (Auto) (1.4-6.5) K/uL Lymph # (Auto) (1.2-3.4) K/uL [place] # (Auto) (0.24-0.82) K/uL Eos # (Auto) (0-0.50) K/uL Baso # (Auto) (0-0.2) K/uL Immature Gran # (Auto) (0.00-0.02) K/uL PT (9.0-12.0) Seconds INR (0.9-1.1) APTT (21.0-31.0) Seconds PTT Ratio Sodium (136-145) mmol/L Potassium (3.5-5.1) mmol/L Chloride (98-107) mmol/L Carbon Dioxide (21-32) mmol/L Anion Gap (3-11) BUN (6-23) mg/dl Creatinine (0.6-1.2) mg/dl Est Cr Clr Drug Dosing ml/min Est GFR ( Amer) ml/min Est GFR (Non-Af Amer) ml/min BUN/Creatinine Ratio (10-20) Glucose (70-99(Fasting)) mg/dl POC Glucose 153 H 161 H 126 H (70-99) mg/dl Calcium (8.5-10.1) mg/dl Phosphorus (2.5-4.9) mg/dl Magnesium (1.7-2.4) mg/dl Total Bilirubin (0.2-1.0) mg/dl Direct Bilirubin (0-0.2) mg/dl AST (13-39) U/L ALT (7-52) U/L Alkaline Phosphatase (34-104) U/L Troponin I High Sens (0-14) pg/ml Total Protein (6.0-8.3) gm/dl Albumin (3.4-5.0) gm/dl Globulin (2.5-4.0) gm/dl Albumin/Globulin Ratio (0.9-2) Procalcitonin (0-0.5) ng/ml TSH (0.300-4.500) uIu/ml SARS-CoV-2, RNA, NAAT (NEGATIVE) 11/21/21 11/21/21 11/21/21 Range/Units 12:39 16:41 20:24 WBC (4.8-10.8) K/ul RBC (3.93-5.22) M/uL Hgb (12.0-16.0) g/dl Hct (34.1-44.9) % MCV (80.0-100.0) fL MCH (25.0-34.0) pg MCHC (32.0-36.0) g/dL RDW Std Deviation (36.4-46.3) fL RDW Coeff of Umair (11.5-14.5) % Plt Count (130-400) K/uL MPV (9.4-12.3) fL Immature Gran % (Auto) % Neut % (Auto) % Lymph % (Auto) % [place] % (Auto) % Eos % (Auto) % Baso % (Auto) % Neut # (Auto) (1.4-6.5) K/uL Lymph # (Auto) (1.2-3.4) K/uL [place] # (Auto) (0.24-0.82) K/uL Eos # (Auto) (0-0.50) K/uL Baso # (Auto) (0-0.2) K/uL Immature Gran # (Auto) (0.00-0.02) K/uL PT (9.0-12.0) Seconds INR (0.9-1.1) APTT (21.0-31.0) Seconds PTT Ratio Sodium 137 (136-145) mmol/L Potassium 3.1 L D (3.5-5.1) mmol/L Chloride 102 (98-107) mmol/L Carbon Dioxide 26 (21-32) mmol/L Anion Gap 9 (3-11) BUN 3 L (6-23) mg/dl Creatinine 0.81 (0.6-1.2) mg/dl Est Cr Clr Drug Dosing 66.2 ml/min Est GFR ( Amer) 90.2 ml/min Est GFR (Non-Af Amer) 77.8 ml/min BUN/Creatinine Ratio 3.7 L (10-20) Glucose 131 H (70-99(Fasting)) mg/dl POC Glucose 160 H 160 H (70-99) mg/dl Calcium 7.2 L (8.5-10.1) mg/dl Phosphorus (2.5-4.9) mg/dl Magnesium 2.9 H (1.7-2.4) mg/dl Total Bilirubin (0.2-1.0) mg/dl Direct Bilirubin (0-0.2) mg/dl AST (13-39) U/L ALT (7-52) U/L Alkaline Phosphatase (34-104) U/L Troponin I High Sens 9.7 (0-14) pg/ml Total Protein (6.0-8.3) gm/dl Albumin (3.4-5.0) gm/dl Globulin (2.5-4.0) gm/dl Albumin/Globulin Ratio (0.9-2) Procalcitonin (0-0.5) ng/ml TSH (0.300-4.500) uIu/ml SARS-CoV-2, RNA, NAAT (NEGATIVE) 11/22/21 11/22/21 11/22/21 Range/Units 07:00 07:00 07:00 WBC 6.81 (4.8-10.8) K/ul RBC 4.02 (3.93-5.22) M/uL Hgb 11.7 L D (12.0-16.0) g/dl Hct 34.4 (34.1-44.9) % MCV 85.6 (80.0-100.0) fL MCH 29.1 (25.0-34.0) pg MCHC 34.0 (32.0-36.0) g/dL RDW Std Deviation 44.1 (36.4-46.3) fL RDW Coeff of Umair 14.2 (11.5-14.5) % Plt Count 215 (130-400) K/uL MPV 11.0 (9.4-12.3) fL Immature Gran % (Auto) % Neut % (Auto) % Lymph % (Auto) % [place] % (Auto) % Eos % (Auto) % Baso % (Auto) % Neut # (Auto) (1.4-6.5) K/uL Lymph # (Auto) (1.2-3.4) K/uL [place] # (Auto) (0.24-0.82) K/uL Eos # (Auto) (0-0.50) K/uL Baso # (Auto) (0-0.2) K/uL Immature Gran # (Auto) (0.00-0.02) K/uL PT (9.0-12.0) Seconds INR (0.9-1.1) APTT (21.0-31.0) Seconds PTT Ratio Sodium 141 (136-145) mmol/L Potassium 2.9 L (3.5-5.1) mmol/L Chloride 107 (98-107) mmol/L Carbon Dioxide 28 (21-32) mmol/L Anion Gap 6 (3-11) BUN 6 (6-23) mg/dl Creatinine 0.79 (0.6-1.2) mg/dl Est Cr Clr Drug Dosing 70.5 ml/min Est GFR ( Amer) 93.0 ml/min Est GFR (Non-Af Amer) 80.2 ml/min BUN/Creatinine Ratio 7.6 L (10-20) Glucose 130 H (70-99(Fasting)) mg/dl POC Glucose (70-99) mg/dl Calcium 7.3 L (8.5-10.1) mg/dl Phosphorus (2.5-4.9) mg/dl Magnesium 2.0 (1.7-2.4) mg/dl Total Bilirubin 0.2 (0.2-1.0) mg/dl Direct Bilirubin 0.1 (0-0.2) mg/dl AST 15 (13-39) U/L ALT 13 (7-52) U/L Alkaline Phosphatase 118 H (34-104) U/L Troponin I High Sens (0-14) pg/ml Total Protein 4.7 L D (6.0-8.3) gm/dl Albumin 2.3 L (3.4-5.0) gm/dl Globulin (2.5-4.0) gm/dl Albumin/Globulin Ratio (0.9-2) Procalcitonin (0-0.5) ng/ml TSH (0.300-4.500) uIu/ml SARS-CoV-2, RNA, NAAT (NEGATIVE) 11/22/21 Range/Units 07:49 WBC (4.8-10.8) K/ul RBC (3.93-5.22) M/uL Hgb (12.0-16.0) g/dl Hct (34.1-44.9) % MCV (80.0-100.0) fL MCH (25.0-34.0) pg MCHC (32.0-36.0) g/dL RDW Std Deviation (36.4-46.3) fL RDW Coeff of Umair (11.5-14.5) % Plt Count (130-400) K/uL MPV (9.4-12.3) fL Immature Gran % (Auto) % Neut % (Auto) % Lymph % (Auto) % [place] % (Auto) % Eos % (Auto) % Baso % (Auto) % Neut # (Auto) (1.4-6.5) K/uL Lymph # (Auto) (1.2-3.4) K/uL [place] # (Auto) (0.24-0.82) K/uL Eos # (Auto) (0-0.50) K/uL Baso # (Auto) (0-0.2) K/uL Immature Gran # (Auto) (0.00-0.02) K/uL PT (9.0-12.0) Seconds INR (0.9-1.1) APTT (21.0-31.0) Seconds PTT Ratio Sodium (136-145) mmol/L Potassium (3.5-5.1) mmol/L Chloride (98-107) mmol/L Carbon Dioxide (21-32) mmol/L Anion Gap (3-11) BUN (6-23) mg/dl Creatinine (0.6-1.2) mg/dl Est Cr Clr Drug Dosing ml/min Est GFR ( Amer) ml/min Est GFR (Non-Af Amer) ml/min BUN/Creatinine Ratio (10-20) Glucose (70-99(Fasting)) mg/dl POC Glucose 134 H (70-99) mg/dl Calcium (8.5-10.1) mg/dl Phosphorus (2.5-4.9) mg/dl Magnesium (1.7-2.4) mg/dl Total Bilirubin (0.2-1.0) mg/dl Direct Bilirubin (0-0.2) mg/dl AST (13-39) U/L ALT (7-52) U/L Alkaline Phosphatase (34-104) U/L Troponin I High Sens (0-14) pg/ml Total Protein (6.0-8.3) gm/dl Albumin (3.4-5.0) gm/dl Globulin (2.5-4.0) gm/dl Albumin/Globulin Ratio (0.9-2) Procalcitonin (0-0.5) ng/ml TSH (0.300-4.500) uIu/ml SARS-CoV-2, RNA, NAAT (NEGATIVE) Imaging Data My Impression: X-ray: I interpreted the following studies. Chest: A single view study of the chest was reviewed and was negative for cardiomegaly, focal infiltrate, effusion, pulmonary edema, or wide mediastinum. ECG Data Attestation: I personally reviewed and interpreted this ECG as follows: Indication: + chest pain and + SOB/dyspnea Rate (beats per minute): 108 Rhythm: + sinus tachycardia ECG Intervals/blocks: + Normal QRS and + Normal QT ECG [place]: + Normal ECG ST segments: + Nonspecific ST abnormalities MDM Narrative An order was placed for continuous cardiac monitoring. The monitor shows a rate of _92__ with _normal sinus_ rhythm. This is a 61-year-old female who presents due to concern for chest pain and shortness of breath. Labs been drawn and sent by nursing staff per protocol prior to my evaluation. Patient noted to have significant hypokalemia. Upon my evaluation magnesium and phosphorus were also added. Patient's EKG showed sinus tachycardia however no acute EKG changes to suggest ACS. Patient does have significant cardiac history although is a poor historian regarding that. Patient noted to have hyperglycemia which she states is normal for her, and very low anion gap is also noted. Renal function otherwise intact. Patient felt improved here with IV Tylenol. She was started on gentle IV fluid rehydration, and started on potassium and magnesium supplementation while in the emergency room. Case discussed with hospitalist for additional evaluation and management. Patient's troponin negative. I have a low suspicion for occult PE. No ev idence of overt CHF. Patient made aware of all results, verbalized understanding, and was in agreement with plan. Patient does have prior history of electrolyte abnormalities and admits to being noncompliant in taking her medications as prescribed. Patient was rechecked multiple times though she was in the department due to concern for the electrolyte abnormalities and risk of dysrhythmia or other evolving condition. Impression & Plan Chest pain, Hypomagnesemia, Hypokalemia, Dyspnea, Hyperglycemia, Noncompliance Discharge Plan Visit Data Chief Complaint: Chest Pain Stated Complaint: CHEST PAINS, NAUSEA ED Provider: Radha Starkey Discharge Problem: Chest pain, Hypomagnesemia, Hypokalemia, Dyspnea, Hyperglycemia, Noncompliance Patient Disposition: Admitted As Inpatient Discharge Instructions Interventions: ED Discharge Assessment Last Done: 11/21/21 00:54
--- NOTE | 2021-11-21 00:17 | History & Physical Report ---
Date of Service November 21, 2021 Assessment & Plan (1) Chest pain: Plan: 61yo female with known CAD s/p NSTEMI in 10/2020 s/p PCI with CHANTAL x 2 to LAD, HTN, HLP, DM, ongoing tobacco use and history of medication non-adherence presenting with substernal chest pain that started appx 30 hours ago. EKG with some non-specific ST-T changes in anterior and lateral leads. Troponin x 1 is unremarkable. She does have several electrolyte abnormalities including hypomagnesemia, hypokalemia as well. Presently CP free. -Observation to medical with telemetry -Trend troponin -Check EKG in AM -Electrolyte repletion -Smoking cessation counseling (2) Anxiety: Plan: Patient with severe anxiety. She reports it makes leaving her house difficult. She has been trying to establish with outpatient Psychiatry but has been having difficulty scheduling something. Patient has been seen by PCP regarding this issue as well - was requesting Benzos which were not prescribed. -Continue Fluvoxamine 50mg po BID -Hydroxyzine PRN anxiety. Caution with QT interval - repeat EKG in AM -Will consult Case Management re: Psychiatry followup. Patient would benefit from having appointment scheduled PRIOR to discharge to ensure proper followup. Her anxiety is most likely contributing to poor management of her other medical conditions, nonadherence, etc (3) CAD (coronary artery disease): Plan: Patient with CAD s/p NSTEMI 10/2020 -Continue Brillinta 90mg po BID -Continue Atorvastatin (4) Hypomagnesemia: Plan: Mg=1.1. He has received 2 gm thus far -Continue repletion - 5mg ordered -Repeat Mg level in AM -Continue outpatient PO supplementation on DC (5) Hypokalemia: Plan: K=2.3 -Received 40mEq thus far -40mEq in AM -KPhos 15mEq -Repeat chemistry (6) Hypothyroidism: Plan: Chronic. Stable. TSH=0.789 -Continue Synthroid 88mcg po daily (7) Dyslipidemia: Plan: Chronic. Patient on high intensity statin. h/o CAD -Continue Atorvastatin 80mg po daily (8) GERD (gastroesophageal reflux disease): Plan: Chronic -Continue Protonix 40mg po daily -Continue Pepcid -Continue Sucralfate (9) Diabetes type 2, uncontrolled: Plan: Patient with elevated blood sugar today at 254. Last HgbA1C on 09/24/21 elevated at 8.8. Patient follows with Endocrinology, Dr. Massey. She has also been counseled several times from Pharmacy. She has difficulty following her insulin regimen. Most recent regimen: Humulin R-U-500, 20y AM +-10u PM -Lantus 8u BID -ISS -Goal blood sugar 110 - 140 -Continue Reglan. Had a normal gastric emptying study in the past -Pharmacy consultation appreciated F/E/N - Electrolyte repletion as above Ca/Mg/Po4/K, repeat labs in AM, AHA/CC diet as tolerated Ppx - Low risk Code - Full Dispo - Observation to medical with telemetry History of Present Illness Chief Complaint: chest pain Primary Care Provider: Jc Zaman DO Yolanda Lua is a 61yo female presenting with chest discomfort. She has history of CAD s/p NSTENI in 10/2020 with placement of CHANTAL x 2 to LAD, DM, HTN and HLP, ongoing tobacco use. She reports substernal chest discomfort that began 11/19/21 afternoon around 14:00. Pain is substernal with radiation into the back. Intermittent, 6/10 in severity with associated nausea. Pain is worsened by pressing on her chest as well as sitting upright. She has not taken any medications. No trauma, no change in activity. No GERD symptoms. She reports pain is somewhat similar to prior cardiac event. No additional complaints at this time. Patient has occasional dizziness for which she takes Meclizine. Does report and increase in burping/belching lately. In the ER she is afebrile, HD stable, NAD. ER Course: Zofran 4mg IV, KCL 40mEq + 20mEq infusing in NSS, Mag x 2 gm Allergies Allergy/AdvReac Type Severity Reaction Status Date / Time dulaglutide [From Trulicity] AdvReac Intermediate stomach Verified 11/20/21 23:05 pain albiglutide [From Tanzeum] AdvReac Unknown CAN'T Verified 11/20/21 23:05 REMEMBER Home Medications Medication Instructions Recorded Confirmed Type nystatin 100,000 unit/gram topical 1 applic topical BID PRN Skin 08/20/21 11/20/21 History powder Irritation famotidine 20 mg tablet 20 mg PO BID #180 tabs 09/05/21 11/20/21 Rx ticagrelor 90 mg tablet (Brilinta) 90 mg PO BID 90 days #180 tabs 09/05/21 11/20/21 Rx pantoprazole 40 mg tablet,delayed 40 mg PO QPM 09/06/21 11/20/21 History release pen needle, diabetic 32 gauge x #200 ea 09/13/21 11/03/21 Rx 5/32" (BD Ultra-Fine [place] Pen Needle) acetaminophen 500 mg tablet 1,000 mg PO TID #60 tabs 09/15/21 11/20/21 Rx (Tylenol Extra Strength) fluvoxamine 50 mg tablet 50 mg PO BID #60 tabs 09/15/21 11/20/21 Rx metoclopramide HCl 10 mg tablet 10 mg PO ACHS #120 tabs 09/15/21 11/20/21 Rx atorvastatin 80 mg tablet 80 mg PO QPM #90 tabs 10/03/21 11/20/21 Rx potassium chloride 20 mEq 40 meq PO QAM #180 tabs 10/03/21 11/20/21 Rx tablet,extended release(part/cryst) sucralfate 1 gram tablet 1 g PO ACHS 30 days #120 tabs 10/03/21 11/20/21 Rx meclizine 25 mg tablet 25 mg PO TID PRN dizziness 10/11/21 11/20/21 History blood-glucose meter (Prodigy 10/15/21 11/03/21 History Autocode Meter kit) levothyroxine 88 mcg tablet 88 mcg PO DAILY #30 tabs 10/15/21 11/20/21 Rx magnesium chloride 70 mg 70 mg PO DAILY 90 days #90 tabs 10/23/21 11/20/21 Rx (magnesium chloride) tablet,delayed release insulin regular hum U-500 conc 500 10 - 25 unit subcut BID 11/01/21 11/20/21 History unit/mL(3 mL) subcut pen (Humulin R U-500 (Conc) Insulin Kwikpen) diclofenac sodium 1 % topical gel 4 g EXT QID PRN Pain 11/20/21 11/20/21 History (Voltaren Arthritis Pain) Past Med/Surg History Medical History Albuminuria Anxiety CAD (coronary artery disease) No remaining occlusive disease after 2 LAD drug eluting stents 10/22/20. Follows with Dr. Harris Chronic headaches Depression Diabetes type 2, uncontrolled IDDM Diabetic nephropathy associated with type 2 diabetes mellitus Dyslipidemia Hypertension Hypokalemia Hypomagnesemia Hypothyroidism NSTEMI (non-ST elevated myocardial infarction) 10/22/2020 s/p 2 CHANTAL Obesity Osteoarthritis Tobacco abuse Vulvitis Surgical History History of cardiac catheterization 10/22/2020 Dominant: Right Left Main (% Stenosis): Normal LAD (% Stenosis): Proximal (99) and Mid (75) Circumflex (% Stenosis): Normal (luminal irregularities) RCA (% Stenosis): Normal (Luminal irregularities) 2 CHANTAL to LAD History of cholecystectomy History of dental surgery History of tonsillectomy S/P coronary artery stent placement 2 CHANTAL to LAD 10/22/2020 Family History Unknown Diabetes Thyroid disorder Father Diabetes Other No family history of adverse response to anesthesia Denies family history of Ovarian cancer Prostate cancer Breast cancer Colorectal cancer Uterine cancer Social History (Updated 10/19/21 @ 13:02 by ALBARO Madrigal) Smoking Status: Current every day smoker Tobacco Type: Cigarettes packs per day: 0.5; Cigarettes Per Day: 10 cigs; Second Hand Exposure: No; Hx Alcohol Use: No Hx Substance Use: No Preferred Language: Divehi Communication Ability: Effective Visual Impairment: No Limitations Skin Tanner Required: No Beliefs That Will Affect Care: None marital status: Single Current Living Situation: Alone current occupational status: disabled How many Children do You have: 0 Feels Safe at Home: Yes Safety Concerns Comment: Gets nervous sometimes because she lives alone, gets shaky from anxiety caffeine: Yes Dental Care, Regularly: No Physical Activity Frequency: Does not Exercise Seatbelt Use: always Sunscreen Use: No Assistive Devices: None Review of Systems Review of Systems: All systems reviewed & are unremarkable except as noted in HPI & below Physical Exam Physical Exam: General: patient resting comfortably, NAD, non-toxic in appearance, AA&O x 4, anxious Skin: warm, dry, intact, no rashes or lesions HEENT: NC/AT, PERRL, EOMI, anicteric sclera, conjunctiva without injection, external ear normal to inspection and nontender, nares patent, moist mucus membranes, dentition intact, no oropharyngeal lesions, neck supple, trachea midline, no LAD, no thyromegaly, no JVD Heart: +S1/S2, regular, no m/r/g, +chest pain with sternal palpation Lungs: equal air entry bilaterally, no rales/rhonchi/wheezes Abd: +BS, soft, NT/ND, no masses/organomegaly/ascites Ext: warm, 2+ pulses in UE/LE bilaterally, no clubbing/cyanosis or edema Neuro: nonfocal, patient AA&O x 4, speech intact, no facial droop, moving all extremities on command with equal strength 5/5 Results & Data Results & Data ([facility]) Vital Signs (Past 12 Hours) Vital Signs Temp Pulse Pulse Resp BP BP Pulse Ox 11/20/21 23:46 36.9 C 73 16 96/63 L 95 11/20/21 23:27 76 19 100/64 95 11/20/21 23:08 78 19 83/67 L 11/20/21 22:52 78 20 121/74 97 11/20/21 21:07 82 95 11/20/21 21:07 82 20 89/61 L 95 11/20/21 19:36 36.6 C 20 134/91 99 O2 Del Method 11/20/21 23:46 Room Air 11/20/21 23:27 11/20/21 23:08 11/20/21 22:52 Room Air 11/20/21 21:07 Room Air 11/20/21 21:07 Room Air 11/20/21 19:36 Laboratory Results Laboratory Results WBC 13.02 K/ul (4.8-10.8) H 11/20/21 19:45 RBC 5.09 M/uL (3.93-5.22) 11/20/21 19:45 Hgb 14.9 g/dl (12.0-16.0) 11/20/21 19:45 Hct 43.4 % (34.1-44.9) 11/20/21 19:45 MCV 85.3 fL (80.0-100.0) 11/20/21 19:45 MCH 29.3 pg (25.0-34.0) 11/20/21 19:45 MCHC 34.3 g/dL (32.0-36.0) 11/20/21 19:45 RDW Std Deviation 43.6 fL (36.4-46.3) 11/20/21 19:45 RDW Coeff of Umair 14.2 % (11.5-14.5) 11/20/21 19:45 Plt Count 358 K/uL (130-400) 11/20/21 19:45 MPV 11.1 fL (9.4-12.3) 11/20/21 19:45 Immature Gran % (Auto) 0.2 % 11/20/21 19:45 Neut % (Auto) 80.1 % 11/20/21 19:45 Lymph % (Auto) 14.4 % 11/20/21 19:45 [place] % (Auto) 4.7 % 11/20/21 19:45 Eos % (Auto) 0.4 % 11/20/21 19:45 Baso % (Auto) 0.2 % 11/20/21 19:45 Neut # (Auto) 10.43 K/uL (1.4-6.5) H 11/20/21 19:45 Lymph # (Auto) 1.87 K/uL (1.2-3.4) 11/20/21 19:45 [place] # (Auto) 0.61 K/uL (0.24-0.82) 11/20/21 19:45 Eos # (Auto) 0.05 K/uL (0-0.50) 11/20/21 19:45 Baso # (Auto) 0.03 K/uL (0-0.2) 11/20/21 19:45 Immature Gran # (Auto) 0.03 K/uL (0.00-0.02) H 11/20/21 19:45 PT 10.5 Seconds (9.0-12.0) 11/20/21 19:45 INR 1.0 (0.9-1.1) 11/20/21 19:45 APTT 22.9 Seconds (21.0-31.0) 11/20/21 19:45 PTT Ratio 0.8 11/20/21 19:45 Sodium 140 mmol/L (136-145) 11/20/21 19:45 Potassium 2.3 mmol/L (3.5-5.1) L* 10/04/22 19:45 Chloride 101 mmol/L (98-107) 11/20/21 19:45 Carbon Dioxide 24 mmol/L (21-32) 11/20/21 19:45 Anion Gap 15 (3-11) H 11/20/21 19:45 BUN 3 mg/dl (6-23) L 11/20/21 19:45 Creatinine 0.94 mg/dl (0.6-1.2) 11/20/21 19:45 Est Cr Clr Drug Dosing 56.8 ml/min 11/20/21 19:45 Est GFR ( Amer) 75.4 ml/min 11/20/21 19:45 Est GFR (Non-Af Amer) 65.0 ml/min 11/20/21 19:45 BUN/Creatinine Ratio 3.2 (10-20) L 11/20/21 19:45 Glucose 254 mg/dl (70-99(Fasting)) H 11/20/21 19:45 POC Glucose 172 mg/dl (70-99) H 11/20/21 22:16 Calcium 7.8 mg/dl (8.5-10.1) L 11/20/21 19:45 Phosphorus 2.3 mg/dl (2.5-4.9) L 11/20/21 19:45 Magnesium 1.1 mg/dl (1.7-2.4) L 11/20/21 19:45 Total Bilirubin 0.3 mg/dl (0.2-1.0) 11/20/21 19:45 AST 34 U/L (13-39) 11/20/21 19:45 ALT 25 U/L (7-52) 11/20/21 19:45 Alkaline Phosphatase 179 U/L (34-104) H 11/20/21 19:45 Troponin I High Sens 14.0 pg/ml (0-14) 11/20/21 19:45 Total Protein 6.4 gm/dl (6.0-8.3) 11/20/21 19:45 Albumin 3.3 gm/dl (3.4-5.0) L 11/20/21 19:45 Globulin 3.1 gm/dl (2.5-4.0) 11/20/21 19:45 Albumin/Globulin Ratio 1.1 (0.9-2) 11/20/21 19:45 TSH 0.789 uIu/ml (0.300-4.500) 11/20/21 19:54 SARS-CoV-2, RNA, NAAT NEGATIVE (NEGATIVE) 11/20/21 21:42 ECG Additional Comments: EKG - ST at 108, normal axis, HG=508, QRS=68, VDs=[address] changes in lateral leads PG Care Time/CCT Total # of Minutes Spent Total Time Spent with Patient: Total time spent is greater than 50% in coordination of care (as documented) at patient's floor/unit and/or counseling patient: Coding Level of Care Code INT OBSERVATION CARE 70M LVL 3 Diagnoses Chest pain R07.9 Anxiety F41.9 CAD (coronary artery disease) I25.10 Associated angina: unspecified whether angina present Coronary Disease-Associated Artery/Lesion type: [place] artery [place] vs. transplanted heart: [place] heart Hypomagnesemia E83.42 Hypokalemia E87.6 Hypothyroidism E03.9 Dyslipidemia E78.5 GERD (gastroesophageal reflux disease) K21.9 Diabetes type 2, uncontrolled E11.65 (1) CAD (coronary artery disease) Associated angina: unspecified whether angina present Coronary Disease- Associated Artery/Lesion type: [place] artery [place] vs. transplanted heart: [place] heart Qualified Code(s): I25.10 - Atherosclerotic heart disease of [place] coronary artery without angina pectoris
[2021-11-21] MEDS: MAGNESIUM SULFATE / D5W 1 GM/100 ML BAG IV SCH ×6 (00:47→11:00)
[2021-11-21] MEDS ORDERED: GLUCOSE 40% GEL 15 GM TUBE PO PRN (01:33)
[2021-11-21] MEDS ORDERED: STAT IV STA (01:33)
[2021-11-21] MEDS ORDERED: GLUCAGON FOR INJ 1 MG VIAL SQ PRN (01:33)
[2021-11-21] MEDS ORDERED: GLUCOSE 10 TAB/TUBE PO PRN (01:33)
[2021-11-21] MEDS ORDERED: CARBOHYDRATES FOR HYPOGLYCEMIA PO PRN (01:33)
[2021-11-21] MEDS ORDERED: POTASSIUM PHOS 3 MMOL/1 ML INFUSION IV STA (01:33)
[2021-11-21] MEDS ORDERED: DEXTROSE 50% 50 ML SYRINGE IV PRN (01:33)
[2021-11-21] MEDS ORDERED: ONDANSETRON INJ 2 MG/ML 2 ML VIAL IV PRN (01:33)
[2021-11-21] MEDS ORDERED: POTASSIUM PHOSPHATE 15 MMOL in SODIUM CHLORIDE 0.9% 250 ML IV ONE (01:45)
[2021-11-21] MEDS ORDERED: CALCIUM GLUCONATE 10% 1,000 MG in DEXTROSE 5% 50 ML IV ONE (01:45)
[2021-11-21] MEDS ORDERED: PHARMACY GLYCEMIC MGMT CONSULT PRN (02:13)
[2021-11-21] MEDS ORDERED: INSULIN ASPART PER UNIT SC ONE (02:45)
[2021-11-21] MEDS ORDERED: LANTUS PER UNIT CHARGE SQ ONE (02:45)
[2021-11-21] MEDS: ACETAMINOPHEN 500 MG TAB PO SCH ×3 (04:07→21:07)
[2021-11-21] MEDS: LEVOTHYROXINE SODIUM 88 MCG TABLET PO SCH (05:12)
[2021-11-21 07:33] LABS: Troponin I High Sensitivity 12.9 pg/ml (0-14)
--- NOTE | 2021-11-21 07:37 | Hospitalist Progress Note ---
Date of Service November 21, 2021 Assessment & Plan (1) Chest pain: Plan: 59-year-old woman with CAD (s/p LAD stent x2 for NSTEMI in 10/2020), DM2, hypertension, hyperlipidemia, and is a current tobacco smoker, who presented for substernal chest pain radiating to the back, and is admitted for cardiac rule out, symptom management. Chest pain -Borderline EKG, including repeat (nonspecific ST changes in anterior lateral leads), negative troponin, moderate electrolyte disturbances. -Lower suspicion for cardiac etiology at this time. Stronger suspicion for musculoskeletal cause (i.e. costochondritis) given patient's recent, frequent history of dry cough, as well as her physical exam. -Managing as costochondritis at this time. However, would like to ascertain if her electrolytes are responsible for EKG abnormalities. * Tylenol 1000 mg p.o. 3 times daily * Repeat EKG tonight/tomorrow morning after electrolytes stabilized * Recommend outpatient follow-up with cardiology for stress test CAD -NSTEMI in October 2020. Status post LAD stent x2. Follows with [facility]. Continue home regimen * Brilinta 90 mg p.o. twice daily * Atorvastatin 80 mg every afternoon Subacute diarrhea/early satiety/abdominal pain -Patient has been having nonspecific gastroenteritis symptoms for months. Low suspicion for infectious process. Procalcitonin negative on admission. -Patient was evaluated by [facility] in March. EGD showed mild gastritis. There was a suspicion of gastroparesis at that time (which is what we think given her current symptoms), and she was started on Reglan, which she continues to take. -Patient has also been on famotidine and pantoprazole. She reports continued adherence to both medicines. In light of this adherence, strongly suspect gastroparesis. * Gastric emptying study, if no prior study. Will chart check before ordering. * Continue home gastritis regimen: Carafate, Pepcid, Protonix * Replace Reglan with erythromycin, pending emptying study results * Imodium as needed Hypomagnesemia/hypokalemia -Suspect electrolyte derangements secondary to GI losses. -Received 100 mEq potassium, 7 g of IV magnesium on arrival, admission to the hospital. * Potassium chloride 40 mEq p.o. every morning. Holding further magnesium repletion. * Trend a.m. CMP, magnesium Dyslipidemia: Continue home atorvastatin Type 2 diabetes: Basal bolus insulin + SSI, per glycemic consult Hypothyroidism: Continue home Synthroid Anxiety: Home fluvoxamine Code: Full code Dispo: Med-Surg with telemetry FEN/GI: Heart healthy DVT Prophylaxis: Brilinta Consults: None (2) Anxiety: (3) CAD (coronary artery disease): (4) Hypomagnesemia: (5) Hypokalemia: (6) Dyslipidemia: Admission and Anticipated Discharge Date Admission Date: November 21, 2021 Supervising Physician Co-Signing Physician Notes I have seen and examined patient. I reviewed the documentation by Dr. Collins, and agree with his assessment and plan. Patient was admitted for chest pain and at this time I feel that she has a low risk for this being cardiac in etiology and more so GI related or musculoskeletal related. The pain is not worsened with exertion and her high sensitive troponins x3 have been negative. She also has an ongoing history of diarrhea which was worsened over the last few days but now over the last couple days she is actually not had a bowel movement. The main component of her care which is peculiar is that her potassium level continues to be low despite IV potassium repletion. It is thought that her recent EKG changes showing T wave inversions were secondary to her hypokalemia. She also got a large amount of magnesium upon her admission and she appears to be hypomagnesemia This time. We are working to continue repeating her potassium. We will consult gastroenterology for recommendations of care for possible gastroparesis. We would appreciate recommendations of care regarding her intermittent constipation and diarrhea. When she has a bowel movement and her potassium level is more controlled and her EKG changes including the T wave inversions resolved then I feel she would be stable for discharge. Would consider an outpatient stress test as this is less likely to be cardiac in etiology but given her history of stent placement it still warrants follow-up to confirm that this is not the case. She would need to have stable potassium before we would attempt an outpatient stress test. Subjective Patient is awake in bed upon entry. She reports sharp, pressure-like pleuritic chest pain, some nausea with early satiety, and a recent (though not at present) acute history of diarrhea x1 month. Trip was the early satiety has been ongoing for months. She also reports a 40+ pound weight loss over several months. Review of Systems Review of Systems: All systems reviewed & are unremarkable except as noted in HPI & below Physical Exam Physical Exam: General: Well-appearing, alert, interactive, and in no acute distress. HEENT: Normocephalic, atraumatic. EOM intact. Good conjugate gaze. Nares patent. Moist mucosal membranes. Neck: Supple. No lymphadenopathy. Normal ROM. CV: Regular rate and rhythm. Normal S1 and S2. No murmurs gallops or rubs. Respiratory: Normal respiratory effort. Lungs clear to auscultation bilaterally. No crackles, rhonchi, or wheezes. Moderate tenderness to palpation of anterior chest wall. Abdomen: Soft, nondistended abdomen. No bruits heard on auscultation. No tenderness to deep palpation. Extremities: Capillary refill <2 sec. 2+ dp equal bilaterally. No pedal edema. Neuro: Alert and oriented x3. Skin: Clean, dry, and intact. No rashes, bruises, or erythema. Results & Data Results & Data ([facility]) Vital Signs (Past 12 Hours) Vital Signs Temp Pulse Pulse Pulse Resp BP BP 11/21/21 05:03 78 11/21/21 02:46 36.3 C L 64 18 118/75 11/21/21 01:10 36.6 C 73 20 118/77 11/21/21 00:43 97 H 16 106/62 11/20/21 23:46 36.9 C 73 16 96/63 L 11/20/21 23:27 76 19 100/64 11/20/21 23:08 78 19 83/67 L 11/20/21 22:52 78 20 121/74 11/20/21 21:07 82 11/20/21 21:07 82 20 89/61 L 11/20/21 19:36 36.6 C 20 134/91 Pulse Ox O2 Del Method 11/21/21 05:03 11/21/21 02:46 97 Room Air 11/21/21 01:10 99 Room Air 11/21/21 00:43 95 Room Air 11/20/21 23:46 95 Room Air 11/20/21 23:27 95 11/20/21 23:08 11/20/21 22:52 97 Room Air 11/20/21 21:07 95 Room Air 11/20/21 21:07 95 Room Air 11/20/21 19:36 99 Resident Activity Tracking Resident Involvement: Resident Care Provided Care Provided: Adult Hospital Medicine (1) CAD (coronary artery disease) Associated angina: unspecified whether angina present Coronary Disease- Associated Artery/Lesion type: [place] artery [place] vs. transplanted heart: [place] heart Qualified Code(s): I25.10 - Atherosclerotic heart disease of [place] coronary artery without angina pectoris
[2021-11-21 07:39] LABS: Magnesium 2.1 mg/dl (1.7-2.4); Phosphorus 4.6 mg/dl (2.5-4.9)
[2021-11-21] MEDS: TICAGRELOR 90 MG TAB PO SCH ×3 (08:38→21:29)
[2021-11-21] MEDS: POTASSIUM CHLORIDE CRTAB 20 MEQ TABCR PO SCH (08:38)
[2021-11-21] MEDS: NICOTINE 14 MG/24 HR PATCH TD SCH ×2 (08:39→08:40)
[2021-11-21] MEDS: METOCLOPRAMIDE HCL 10 MG TABLET PO SCH ×4 (08:39→21:11)
[2021-11-21] MEDS: SUCRALFATE 1 GM TAB PO SCH ×4 (08:39→21:06)
[2021-11-21] MEDS: hydrOXYzine HCl 10 MG TAB PO PRN (08:39)
[2021-11-21] MEDS: fluvoxaMINE MALEATE 50 MG TAB PO SCH ×2 (08:40→21:07)
--- NOTE | 2021-11-21 08:47 | Electrocardiogram Report ---
Test Reason : Blood Pressure : / mmHG Vent. Rate : 108 BPM Atrial Rate : 108 BPM P-R Int : 132 ms QRS Dur : 068 ms QT Int : 384 ms P-R-T Axes : 022 015 035 degrees QTc Int : 514 ms Sinus tachycardia Abnormal ECG When compared with ECG of 20-SEP-2021 13:23, Non-specific change in ST segment in Anterolateral leads Nonspecific T wave abnormality now evident in Lateral leads QT has lengthened Confirmed by Omer Andrade ([id number]) on 11/21/2021 8:47:06 AM Referred By: REFERRED SELF Confirmed By:Norberto Andrade
--- NOTE | 2021-11-21 08:48 | Electrocardiogram Report ---
Test Reason : Blood Pressure : / mmHG Vent. Rate : 065 BPM Atrial Rate : 065 BPM P-R Int : 152 ms QRS Dur : 072 ms QT Int : 450 ms P-R-T Axes : 062 057 -76 degrees QTc Int : 468 ms Normal sinus rhythm T wave abnormality, consider inferior ischemia T wave abnormality, consider anterolateral ischemia Abnormal ECG When compared with ECG of 20-NOV-2021 19:49, (unconfirmed) Vent. rate has decreased BY 43 BPM Non-specific change in ST segment in Lateral leads T wave inversion more evident in Inferior leads T wave inversion now evident in Anterior leads Confirmed by Omer Andrade ([id number]) on 11/21/2021 8:47:49 AM Referred By: REFERRED SELF Confirmed By:Norberto Andrade
[2021-11-21] MEDS: INSULIN ASPART PER UNIT SC SCH ×4 (08:49→21:09)
[2021-11-21] MEDS ORDERED: LANTUS PER UNIT CHARGE SQ SCH (09:00)
--- NOTE | 2021-11-21 09:15 | XRay Report ---
XR chest 1V portable HISTORY: 61 years-old Female chest pain acute chest pain COMPARISON: Chest radiograph 09/20/2021 TECHNIQUE: AP view of the chest FINDINGS: Cardiomediastinal and hilar silhouettes are within normal limits. Coronary arterial stent. No pneumot horax, pleural effusion, airspace consolidation or overt pulmonary edema. Degenerative changes of the shoulders and spine. IMPRESSION: No acute process. ACT 112: Negative or not required by law. The above report was generated using voice recognition software. It may contain grammatical, syntax o r spelling errors. Electronically signed by: Willard Cooper M.D. 11/21/2021 9:14 AM
[2021-11-21 13:44] LABS: Troponin I High Sensitivity 9.7 pg/ml (0-14)
[2021-11-21 14:35] LABS: BUN Creatinine Ratio 3.7 (10-20); Calcium 7.2 mg/dl (8.5-10.1); Creatinine Clr Calc Pharmacy 66.2 ml/min; Est GFR (African American) 90.2 ml/min; Est GFR (Non-African American) 77.8 ml/min; Magnesium 2.9 mg/dl (1.7-2.4); Potassium 3.1 mmol/L (3.5-5.1)
--- NOTE | 2021-11-21 14:36 | Pharmacy Report ---
Pharmacy Glycemic Short Note 2 - Date of Service November 21, 2021 - Glycemic Short BSG Results (Last 24 hours): 11/20/21 11/20/21 11/20/21 19:45 19:58 22:16 Glucose 254 H POC Glucose 240 H 172 H 11/21/21 11/21/21 11/21/21 01:58 07:58 10:16 Glucose POC Glucose 239 H 153 H 161 H 11/21/21 11:15 Glucose POC Glucose 126 H OUTPATIENT ANTIDIABETIC REGIMEN: * U-500 --> 25 units at 3 PM and 10 units at midnight ASSESSMENT: * Ms Lua is a 61 y/o F with a PMH of insulin dependent diabetes. * Patient's BSGs on admission was 240 mg/dL. * Will start patient on Lantus 15 units nightly - previous admission had patient on Lantus 20 units BID which was subsequently reduced to 15 units BID. Patient is fearful of lows so will start with reduced dose and titrate upwards as appropriate. * Novolog similar to previous admission. PLAN FOR INPATIENT GLYCEMIC CONTROL: * Hold outpatient oral diabetes medications * Basal insulin * Lantus 15 units SQ HS * Bolus insulin * NovoLog per scale ACHS or Q6hrs while NPO * Goal Range: Low 110 mg/dL - High 140 mg/dL * Correction Factor: 30 mg/dL/unit * Nutritional / Prandial insulin per carb ratio of 1 unit per 9 grams CHO consumed
[2021-11-21] MEDS: FAMOTIDINE 20 MG TAB PO SCH ×2 (15:44→23:16)
[2021-11-21] MEDS ORDERED: LOPERAMIDE HCL 2 MG CAP PO STA ×2 (17:08)
[2021-11-21] MEDS ORDERED: LOPERAMIDE HCL 2 MG CAP PO PRN (17:12)
[2021-11-21] MEDS: PANTOprazole 40 MG TAB PO SCH (21:06)
[2021-11-21] MEDS: ATORVASTATIN 40 MG TAB PO SCH (21:07)
[2021-11-21] MEDS: LANTUS PER UNIT CHARGE SQ SCH (21:09)
[2021-11-22] MEDS: LEVOTHYROXINE SODIUM 88 MCG TABLET PO SCH (05:23)
[2021-11-22 07:34] LABS: Hematocrit (blood only) 34.4 % (34.1-44.9); Hemoglobin 11.7 g/dl (12.0-16.0); Mean Corpuscular Hemoglobin 29.1 pg (25.0-34.0); Mean Corpuscular Volume 85.6 fL (80.0-100.0); Platelet Count 215 K/uL (130-400); RDW Coefficient of Variation 14.2 % (11.5-14.5); RDW Standard Deviation 44.1 fL (36.4-46.3); Red Blood Count 4.02 M/uL (3.93-5.22); White Blood Count 6.81 K/ul (4.8-10.8)
[2021-11-22 07:53] LABS: Albumin Level 2.3 gm/dl (3.4-5.0); BUN Creatinine Ratio 7.6 (10-20); Bilirubin Direct 0.1 mg/dl (0-0.2); Bilirubin,Total 0.2 mg/dl (0.2-1.0); Calcium 7.3 mg/dl (8.5-10.1); Creatinine Clr Calc Pharmacy 70.5 ml/min; Est GFR (Non-African American) 80.2 ml/min; Potassium 2.9 mmol/L (3.5-5.1); Total Protein 4.7 gm/dl (6.0-8.3)
[2021-11-22] MEDS: INSULIN ASPART PER UNIT SC SCH ×4 (09:37→20:57)
[2021-11-22] MEDS: ACETAMINOPHEN 500 MG TAB PO SCH ×3 (09:40→20:26)
[2021-11-22] MEDS: METOCLOPRAMIDE HCL 10 MG TABLET PO SCH ×4 (09:40→20:25)
[2021-11-22] MEDS: SUCRALFATE 1 GM TAB PO SCH ×4 (09:41→20:27)
[2021-11-22] MEDS: fluvoxaMINE MALEATE 50 MG TAB PO SCH ×2 (09:41→20:57)
[2021-11-22] MEDS: POTASSIUM CHLORIDE CRTAB 20 MEQ TABCR PO SCH ×3 (09:42→20:25)
[2021-11-22] MEDS: NICOTINE 14 MG/24 HR PATCH TD SCH (09:44)
[2021-11-22] MEDS: TICAGRELOR 90 MG TAB PO SCH ×2 (11:02→20:25)
[2021-11-22] MEDS: POTASSIUM CHLORIDE / WTR 10 MEQ/100 ML PLCT IV SCH ×4 (11:13→15:10)
--- NOTE | 2021-11-22 13:30 | Electrocardiogram Report ---
Test Reason : Blood Pressure : / mmHG Vent. Rate : 060 BPM Atrial Rate : 060 BPM P-R Int : 134 ms QRS Dur : 080 ms QT Int : 444 ms P-R-T Axes : 031 031 058 degrees QTc Int : 444 ms Normal sinus rhythm T wave abnormality, consider inferior ischemia Abnormal ECG When compared with ECG of 21-NOV-2021 07:28, T wave inversion less evident in Inferior leads Nonspecific T wave abnormality has replaced inverted T waves in Anterior leads Confirmed by Omer Andrade ([id number]) on 11/22/2021 1:30:23 PM Referred By: REFERRED SELF Confirmed By:Norberto Andrade
[2021-11-22 16:08] LABS: BUN Creatinine Ratio 11.4 (10-20); Calcium 7.3 mg/dl (8.5-10.1); Creatinine Clr Calc Pharmacy 79.6 ml/min; Est GFR (African American) 107.6 ml/min; Est GFR (Non-African American) 92.9 ml/min; Potassium 3.6 mmol/L (3.5-5.1)
[2021-11-22] MEDS ORDERED: FUROSEMIDE INJ 20 MG/2 ML VIAL IV ONE (16:55)
[2021-11-22] MEDS: FAMOTIDINE 20 MG TAB PO SCH ×2 (17:00→20:24)
--- NOTE | 2021-11-22 17:07 | Hospitalist Progress Note ---
Date of Service November 22, 2021 Assessment & Plan (1) Chest pain: Plan: 59-year-old woman with CAD (s/p LAD stent x2 for NSTEMI in 10/2020), DM2, hypertension, hyperlipidemia, and is a current tobacco smoker, who presented for substernal chest pain radiating to the back, and is admitted for cardiac rule out, symptom management. Chest pain -Borderline EKG, including repeat (nonspecific ST changes in anterior lateral leads), negative troponin, moderate electrolyte disturbances. -Lower suspicion for cardiac etiology at this time. Stronger suspicion for musculoskeletal cause (i.e. costochondritis) given patient's recent, frequent history of dry cough, as well as her physical exam. -Managing as costochondritis at this time. However, would like to ascertain if her electrolytes are responsible for EKG abnormalities. * Tylenol 1000 mg p.o. 3 times daily * Repeat EKG tonight/tomorrow morning after electrolytes stabilized * Recommend outpatient follow-up with cardiology for stress test CAD -NSTEMI in October 2020. Status post LAD stent x2. Follow[facility]. Continue home regimen * Brilinta 90 mg p.o. twice daily * Atorvastatin 80 mg every afternoon Subacute diarrhea/early satiety/abdominal pain -Patient has been having nonspecific gastroenteritis symptoms for months. Low suspicion for infectious process. Procalcitonin negative on admission. -Patient was evaluated [facility] in March. EGD showed mild gastritis. There was a suspicion of gastroparesis at that time (which is what we think given her current symptoms), and she was started on Reglan, which she continues to take. -Patient has also been on famotidine and pantoprazole. She reports continued adherence to both medicines. In light of this adherence, strongly suspect gastroparesis. * Schedule outpatient gastric emptying study. Will consult GI. * Continue home gastritis regimen: Carafate, Pepcid, Protonix * Consider replacing Reglan with erythromycin at discharge * Imodium as needed * Will consult GI Hypomagnesemia/hypokalemia -Suspect electrolyte derangements secondary to GI losses. -Received 100 mEq potassium, 7 g of IV magnesium on arrival, admission to the hospital. * Potassium chloride 40 mEq p.o. every morning increased to twice daily. Holding further magnesium repletion. * Trend a.m. BMP, magnesium Dyslipidemia: Continue home atorvastatin Type 2 diabetes: Basal bolus insulin + SSI, per glycemic consult Hypothyroidism: Continue home Synthroid Anxiety: Home fluvoxamine Code: Full code Dispo: Med-Surg with telemetry FEN/GI: Heart healthy DVT Prophylaxis: Brilinta Consults: None (2) Anxiety: (3) CAD (coronary artery disease): (4) Hypomagnesemia: (5) Hypokalemia: (6) Dyslipidemia: Admission and Anticipated Discharge Date Admission Date: November 22, 2021 Supervising Physician Co-Signing Physician Notes I saw the patient and confirmed real portions of the history and physical exam and agree with the resident/fellow impression and plan as above. Dr. King Hammer, DO Subjective No acute events overnight. Patient reports sharp chest pain, that started after breakfast. It is still very much pleuritic, like yesterday. She denies shortness of breath, headache, chest pain, or abdominal pain. She is yet to have a bowel movement. She would like to continue with food as opposed to MiraLAX. Review of Systems Review of Systems: All systems reviewed & are unremarkable except as noted in HPI & below Physical Exam Physical Exam: General: Well-appearing, alert, interactive, and in no acute di stress. HEENT: Normocephalic, atraumatic. EOM intact. Good conjugate gaze. Nares patent. Moist mucosal membranes. Neck: Supple. No lymphadenopathy. Normal ROM. CV: Regular rate and rhythm. Normal S1 and S2. No murmurs gallops or rubs. Respiratory: Normal respiratory effort. Lungs clear to auscultation bilaterally. No crackles, rhonchi, or wheezes. Tenderness to palpation of anterior chest wall. Abdomen: Soft, nondistended abdomen. No bruits heard on auscultation. No ten derness to deep palpation. Extremities: Capillary refill <2 sec. 2+ dp equal bilaterally. No pedal edema. Neuro: Alert and oriented x3. Skin: Clean, dry, and intact. No rashes, bruises, or erythema. Results & Data Results & Data ([facility]) Vital Signs (Past 12 Hours) Vital Signs Temp Pulse Pulse Resp BP Pulse Ox O2 Del Method 11/22/21 15:48 66 11/22/21 15:11 36.3 C L 61 18 110/71 96 Room Air 11/22/21 08:00 54 L 11/22/21 08:20 36.6 C 58 L 18 135/86 95 Room Air Resident Activity Tracking Resident Involvement: Resident Care Provided Care Provided: Adult [facility] (1) CAD (coronary artery disease) Associated angina: unspecified whether angina present Coronary Disease- Associated Artery/Lesion type: [place] artery [place] vs. transplanted heart: [place] heart Qualified Code(s): I25.10 - Atherosclerotic heart disease of [place] coronary artery without angina pectoris
[2021-11-22] MEDS: ATORVASTATIN 40 MG TAB PO SCH (20:24)
[2021-11-22] MEDS: PANTOprazole 40 MG TAB PO SCH (20:25)
[2021-11-22] MEDS: LANTUS PER UNIT CHARGE SQ SCH (20:57)
[2021-11-23] MEDS ORDERED: ACETAMINOPHEN 325 MG TAB PO ONE (00:30)
[2021-11-23] MEDS: hydrOXYzine HCl 10 MG TAB PO PRN ×3 (00:49→21:14)
[2021-11-23] MEDS: LEVOTHYROXINE SODIUM 88 MCG TABLET PO SCH (06:09)
--- NOTE | 2021-11-23 07:58 | Hospitalist Progress Note ---
Date of Service November 23, 2021 Assessment & Plan (1) Chest pain: Plan: 59-year-old woman with CAD (s/p LAD stent x2 for NSTEMI in 10/2020), DM2, hypertension, hyperlipidemia, and is a current tobacco smoker, who presented for substernal chest pain radiating to the back, and is admitted for cardiac rule out, symptom management. Chest pain (resolved) -Borderline EKG, including repeat (nonspecific ST changes in anterior lateral leads), negative troponin, moderate electrolyte disturbances. -Lower suspicion for cardiac etiology at this time. Stronger suspicion for musculoskeletal cause (i.e. costochondritis) given patient's recent, frequent history of dry cough, as well as her physical exam. -Managing as costochondritis at this time. Pain control * Tylenol 1000 mg p.o. 3 times daily for pain control * Repeat EKG normal. * Recommend outpatient follow-up with cardiology for stress test CAD -NSTEMI in October 2020. Status post LAD stent x2. [facility]. Continue home regimen. * Brilinta 90 mg p.o. twice daily * Atorvastatin 80 mg every afternoon Subacute diarrhea/early satiety/abdominal pain -Patient has been having nonspecific gastroenteritis symptoms for months. Low suspicion for infectious process. Procalcitonin negative on admission. -Patient was evaluated [facility] in March-EGD showed mild gastritis. There was also suspicion of gastroparesis at that time (which is what we think given her current symptoms), and she was started on Reglan, which she continues to take, despite her hand tremors. Patient never had GES to confirm. She continues to report early satiety, dyspepsia. -Patient has also been maintained on famotidine and pantoprazole. She reports continued adherence to both medicines. Given adherence, strongly suspect gastroparesis. -GI consult: Opted to schedule gastric emptying study on outpatient basis. Recommended continuing Reglan. Will consider erythromycin after GES. * Continue home gastritis regimen: Carafate, Pepcid, Protonix * Imodium as needed for diarrhea, as needed MiraLAX for constipation. * KUB to rule out overflow diarrhea. Convert MiraLAX from as needed to scheduled if positive for overflow diarrhea. Hypomagnesemia/hypokalemia -Suspect electrolyte derangements secondary to GI losses. -Received 100 mEq potassium, 7 g of IV magnesium on arrival, admission to the hospital. * Potassium chloride 40 mEq p.o. every morning increased to twice daily. * Trend a.m. BMP, magnesium. Replete electrolytes as needed. Dyslipidemia: Continue home atorvastatin Type 2 diabetes: Basal bolus insulin + SSI, per glycemic consult Hypothyroidism: Continue home Synthroid Anxiety: Home fluvoxamine Code: Full code Dispo: Med-Surg with telemetry FEN/GI: Heart healthy DVT Prophylaxis: Brilinta Consults: No biopsyn 5e (2) Anxiety: (3) CAD (coronary artery disease): (4) Hypomagnesemia: (5) Hypokalemia: (6) Dyslipidemia: Admission and Anticipated Discharge Date Admission Date: November 22, 2021 Supervising Physician Co-Signing Physician Notes Attending attestation Pt seen and examined in concert with Dr. Collins. In agreement with the documented findings as noted in the resident documentation with any exceptions or additions as noted here. Minimal chest discomfort at this time but ongoing sensation of abdominal bloating partially relieved with BM today with ongoing TTP mildly. Hypomagnesemia & Hypokalemia - improving following considerable repletion, likely 2/2 restabilization after chronic GI losses vs. fluid shift. Continue to replete and monitor with hopeful stability tomorrow. Gastroenteritits now with constipation - Gi consultation - KUB today, GES as outpatient. Continue supportive care with gastritis regimen and now laxative, the latter with improvement with BM today. Chest pain in the setting of CAD - likely costochondritic pain so will continue APAP for pain control and f/u outpatient with cardiology. Continue Brillinta and atorvastatin. Else see resident documentation as noted. Subjective Patient had headache overnight. There were no other acute events overnight. This morning, she complains of nausea with breakfast. She has had a bowel movement this morning for the first time in 3 days, although she reports that it is "runny." Review of Systems Review of Systems: All systems reviewed & are unremarkable except as noted in HPI & below Physical Exam Physical Exam: General: Well-appearing, alert, interactive, and in no acute distress. HEENT: Normocephalic, atraumatic. EOM intact. Good conjugate gaze. Nares patent. Moist mucosal membranes. Neck: Supple. No lymphadenopathy. Normal ROM. CV: Regular rate and rhythm. Normal S1 and S2. No murmurs gallops or rubs. Respiratory: Normal respiratory effort. Lungs clear to auscultation bilaterally. No crackles, rhonchi, or wheezes. Tenderness to palpation of anterior chest wall. Abdomen: Soft, nondistended abdomen. No bruits heard on auscultation. No tenderness to deep palpation. Extremities: Capillary refill <2 sec. 2+ dp equal bilaterally. No pedal edema. Neuro: Alert and oriented x3. Skin: Clean, dry, and intact. No rashes, bruises, or erythema. Results & Data Results & Data ([facility]) Vital Signs (Past 12 Hours) Vital Signs Temp Pulse Pulse Resp BP BP Pulse Ox 11/23/21 03:55 36.6 C 72 20 116/76 98 11/23/21 00:04 65 18 104/68 96 11/23/21 01:04 73 11/22/21 23:49 36.7 C 64 18 105/66 96 11/22/21 20:06 36.3 C L 131 H 24 160/85 H 98 O2 Del Method 11/23/21 03:55 Room Air 11/23/21 00:04 Room Air 11/23/21 01:04 11/22/21 23:49 Room Air 11/22/21 20:06 Room Air Resident Activity Tracking Resident Involvement: Resident Care Provided Care Provided: Adult Hospital Medicine (1) CAD (coronary artery disease) Associated angina: unspecified whether angina present Coronary Disease- Associated Artery/Lesion type: [place] artery [place] vs. transplanted heart: [place] heart Qualified Code(s): I25.10 - Atherosclerotic heart disease of [place] coronary artery without angina pectoris
[2021-11-23] MEDS: SUCRALFATE 1 GM TAB PO SCH ×4 (08:30→21:12)
[2021-11-23] MEDS: METOCLOPRAMIDE HCL 10 MG TABLET PO SCH ×4 (08:31→21:13)
[2021-11-23] MEDS: NICOTINE 14 MG/24 HR PATCH TD SCH (08:52)
[2021-11-23] MEDS: POTASSIUM CHLORIDE CRTAB 20 MEQ TABCR PO SCH ×2 (08:52→21:12)
[2021-11-23] MEDS: ACETAMINOPHEN 500 MG TAB PO SCH ×3 (08:55→21:13)
[2021-11-23] MEDS: POLYETHYLENE (MIRALAX) 17 GM PACK PO PRN (08:56)
[2021-11-23] MEDS: TICAGRELOR 90 MG TAB PO SCH ×2 (08:56→21:11)
[2021-11-23] MEDS: INSULIN ASPART PER UNIT SC SCH ×4 (09:05→21:17)
[2021-11-23 09:19] LABS: Basophils # (auto) 0.02 K/uL (0-0.2); Basophils % (auto) 0.3 %; Eosinophils % (auto) 3.9 %; Hematocrit (blood only) 36.4 % (34.1-44.9); Hemoglobin 12.3 g/dl (12.0-16.0); Immature Granulocytes # (auto) 0.03 K/uL (0.00-0.02); Immature Granulocytes % (auto) 0.4 %; Lymphocytes # (auto) 1.83 K/uL (1.2-3.4); Lymphocytes % (auto) 24.1 %; Mean Corpuscular Hemoglobin 29.5 pg (25.0-34.0); Mean Corpuscular Hgb Conc 33.8 g/dL (32.0-36.0); Mean Corpuscular Volume 87.3 fL (80.0-100.0); Mean Platelet Volume 11.1 fL (9.4-12.3); Monocytes # (auto) 0.46 K/uL (0.24-0.82); Monocytes % (auto) 6.1 %; Neutrophils # (auto) 4.96 K/uL (1.4-6.5); Neutrophils % (auto) 65.2 %; Platelet Count 249 K/uL (130-400); RDW Coefficient of Variation 14.4 % (11.5-14.5); RDW Standard Deviation 45.7 fL (36.4-46.3); Red Blood Count 4.17 M/uL (3.93-5.22)
[2021-11-23 09:38] LABS: BUN Creatinine Ratio 13.3 (10-20); Calcium 7.8 mg/dl (8.5-10.1); Creatinine Clr Calc Pharmacy 64.6 ml/min; Est GFR (African American) 87.6 ml/min; Est GFR (Non-African American) 75.6 ml/min; Magnesium 1.5 mg/dl (1.7-2.4)
[2021-11-23] MEDS: fluvoxaMINE MALEATE 50 MG TAB PO SCH ×2 (10:27→21:16)
[2021-11-23] MEDS: MAGNESIUM SULFATE / D5W 1 GM/100 ML BAG IV SCH ×2 (11:40→13:25)
--- NOTE | 2021-11-23 12:19 | Pharmacy Report ---
Pharmacy Glycemic Short Note 2 - Date of Service November 23, 2021 - Glycemic Short BSG Results (Last 24 hours): 11/22/21 11/22/21 11/22/21 14:58 16:34 20:21 Glucose 99 POC Glucose 126 H 218 H 11/23/21 11/23/21 11/23/21 00:01 03:32 07:29 Glucose POC Glucose 93 106 H 121 H 11/23/21 11/23/21 08:47 11:55 Glucose 164 H POC Glucose 159 H OUTPATIENT ANTIDIABETIC REGIMEN: * U-500 --> 25 units at 3 PM and 10 units at midnight ASSESSMENT: * BSGs yesterday were [phone] and overnight were 93-106 mg/dL. * BSGs today are 121-159 mg/dL. * Decrease Lantus by 20% to 13 units nightly as fastings trending down. * Continue Novolog BACKGROUND * Ms Lua is a 61 y/o F with a PMH of insulin dependent diabetes. * Patient's BSGs on admission was 240 mg/dL. * Will start patient on Lantus 15 units nightly - previous admission had patient on Lantus 20 units BID which was subsequently reduced to 15 units BID. Patient is fearful of lows so will start with reduced dose and titrate upwards as appropriate. * Novolog similar to previous admission. PLAN FOR INPATIENT GLYCEMIC CONTROL: * Hold outpatient oral diabetes medications * Basal insulin * Lantus 13 units SQ HS * Bolus insulin * NovoLog per scale ACHS or Q6hrs while NPO * Goal Range: Low 110 mg/dL - High 140 mg/dL * Correction Factor: 30 mg/dL/unit * Nutritional / Prandial insulin per carb ratio of 1 unit per 9 grams CHO consumed
--- NOTE | 2021-11-23 13:41 | Gastrointestinal Consultation ---
Date of Consultation November 23, 2021 Assessment & Plan (1) Early satiety: (2) Nausea: Plan chronic nausea and early satiety with acute hospitalization, suspect gastroparesis. recs: --would continue reglan 10 mg QID --gastroparesis diet, small meals 4 times a day low fat, low fiber. --strict blood sugar control --will need an outpatient GES upon discharge to further evaluate, may consider erythromycin or other therapy then --continue PPI and pepcid Thank you for allowing me to participate in the care of this patient History of Present Illness Attending Physician: Harvey Mendoza MD History of Present Illness 60 year old female with a history of CAD s/p stents, poorly-controlled IDDM2, HTN, hypothyroidism, active tobacco use, OCD, anxiety, and multiple prior admissions for dizziness/vertigo here with nausea and early satiety. GI consulted for this. She had EGD previously that had shown gastritis, is on ppi and pepcid for this. There is a concern for gastroparesis and she does not have a recent GES on file. currently on reglan 10 mg QID while inpatient. previously a gastroparesis diet was tried for her and she felt this helped. CBC and CMP reviewed. Allergies Allergy/AdvReac Type Severity Reaction Status Date / Time dulaglutide [From Trulicity] AdvReac Intermediate stomach Verified 11/20/21 23:05 pain albiglutide [From Tanzeum] AdvReac Unknown CAN'T Verified 11/20/21 23:05 REMEMBER Home Medications Medication Instructions Recorded Confirmed Type nystatin 100,000 unit/gram topical 1 applic topical BID PRN Skin 08/20/21 11/20/21 History powder Irritation famotidine 20 mg tablet 20 mg PO BID #180 tabs 09/05/21 11/20/21 Rx ticagrelor 90 mg tablet (Brilinta) 90 mg PO BID 90 days #180 tabs 09/05/21 11/20/21 Rx pantoprazole 40 mg tablet,delayed 40 mg PO QPM 09/06/21 11/20/21 History release pen needle, diabetic 32 gauge x #200 ea 09/13/21 11/03/21 Rx 5/32" (BD Ultra-Fine Cary Pen Needle) acetaminophen 500 mg tablet 1,000 mg PO TID #60 tabs 07/30/22 10/04/22 Rx (Tylenol Extra Strength) fluvoxamine 50 mg tablet 50 mg PO BID #60 tabs 09/15/21 11/20/21 Rx atorvastatin 80 mg tablet 80 mg PO QPM #90 tabs 10/03/21 11/20/21 Rx potassium chloride 20 mEq 40 meq PO QAM #180 tabs 10/03/21 11/20/21 Rx tablet,extended release(part/cryst) sucralfate 1 gram tablet 1 g PO ACHS 30 days #120 tabs 10/03/21 11/20/21 Rx meclizine 25 mg tablet 25 mg PO TID PRN dizziness 10/11/21 11/20/21 History blood-glucose meter (Prodigy 10/15/21 11/03/21 History Autocode Meter kit) levothyroxine 88 mcg tablet 88 mcg PO DAILY #30 tabs 10/15/21 11/20/21 Rx magnesium chloride 70 mg 70 mg PO DAILY 90 days #90 tabs 10/23/21 11/20/21 Rx (magnesium chloride) tablet,delayed release insulin regular hum U-500 conc 500 10 - 25 unit subcut BID 11/01/21 11/20/21 History unit/mL(3 mL) subcut pen (Humulin R U-500 (Conc) Insulin Kwikpen) diclofenac sodium 1 % topical gel 4 g EXT QID PRN Pain 11/20/21 11/20/21 History (Voltaren Arthritis Pain) metoclopramide HCl 10 mg tablet 10 mg PO ACHS #120 tabs 11/21/21 Rx Patient History Medical History Albuminuria Anxiety CAD (coronary artery disease) No remaining occlusive disease after 2 LAD drug eluting stents 10/22/20. Follows with Dr. Harris Chronic headaches Depression Diabetes type 2, uncontrolled IDDM Diabetic nephropathy associated with type 2 diabetes mellitus Dyslipidemia Hypertension Hypokalemia Hypomagnesemia Hypothyroidism NSTEMI (non-ST elevated myocardial infarction) 10/22/2020 s/p 2 CHANTAL Obesity Osteoarthritis Tobacco abuse Vulvitis Surgical History History of cardiac catheterization 10/22/2020 Dominant: Right Left Main (% Stenosis): Normal LAD (% Stenosis): Proximal (99) and Mid (75) Circumflex (% Stenosis): Normal (luminal irregularities) RCA (% Stenosis): Normal (Luminal irregularities) 2 CHANTAL to LAD History of cholecystectomy History of dental surgery History of tonsillectomy S/P coronary artery stent placement 2 CHANTAL to LAD 10/22/2020 Family History Unknown Diabetes Thyroid disorder Father Diabetes Other No family history of adverse response to anesthesia Denies family history of Ovarian cancer Prostate cancer Breast cancer Colorectal cancer Uterine cancer Social History Smoking Status: Current every day smoker Tobacco Type: Cigarettes packs per day: 0.5; Cigarettes Per Day: 10 cigs; Second Hand Exposure: No; Hx Alcohol Use: No Hx Substance Use: No Preferred Language: Sammarinese Communication Ability: Effective Visual Impairment: No Limitations Certified Medical Records Coder Required: No Beliefs That Will Affect Care: None marital status: Single Current Living Situation: Alone current occupational status: disabled How many Children do You have: 0 Feels Safe at Home: Yes Safety Concerns Comment: Gets nervous sometimes because she lives alone, gets shaky from anxiety caffeine: Yes Dental Care, Regularly: No Physical Activity Frequency: Does not Exercise Seatbelt Use: always Sunscreen Use: No Assistive Devices: Glasses Review of Systems Constitutional: no fever, no chills and no weight loss Eyes: as per Subjective / HPI Ear, Nose, Mouth, Throat: as per Subjective / HPI Respiratory: no dyspnea and no dyspnea on exertion Cardiovascular: no chest pain and no palpitations Gastrointestinal: as per Subjective / HPI Musculoskeletal: no joint pain and no swelling Integumentary: no rash and no lesions Neurologic: no numbness and no paresthesia Psychiatric: no depression and no anxiety Endocrine: no fatigue Hematologic / Lymphatic: no easy bleeding and no easy bruising Physical Exam Constitutional: WD/WN, vitals as above Eyes: EOM intact bilaterally Neck: normal visual inspection Respiratory: normal respiratory effort, lungs clear to auscultation Cardiovascular: RRR, no murmur, no edema Gastrointestinal (Abdomen): Inspection/Auscultation: abdomen normal to inspection; abdomen not distended Percussion/Palpation: abdomen soft; abdomen nontender and no hepatosplenomegaly Musculoskeletal: Extremities: no cyanosis Gait: normal gait Skin: no rashes, warm and dry Neurologic: moves all extremities Psychiatric: A+Ox3, euthymic affect Results & Data ([facility]) Vital Signs (Past 12 Hours) Vital Signs Temp Pulse Pulse Resp BP Pulse Ox O2 Del Method 11/23/21 12:35 36.6 C 70 16 127/79 96 Room Air 11/23/21 12:23 69 11/23/21 08:26 36.9 C 65 16 149/83 H 95 Room Air 11/23/21 03:55 36.6 C 72 20 116/76 98 Room Air PG Care Time/CCT Total # of Minutes Spent Total Time Spent with Patient: Total time spent is greater than 50% in coordination of care (as documented) at patient's floor/unit and/or counseling patient: Coding Level of Care Code 76641 Inpt Consult Level 4 Diagnoses Early satiety R68.81 Nausea R11.0
[2021-11-23] MEDS: FAMOTIDINE 20 MG TAB PO SCH ×2 (17:28→23:58)
--- NOTE | 2021-11-23 17:31 | XRay Report ---
KUB HISTORY: Acute onset abdominal pain with diarrhea Suspect overflow diarrhea COMPARISON: CT abdomen and pelvis 09/20/2021 FINDINGS: Cholecystectomy. Vascular calcifications. Moderate to extensive fecal retention. Nonobstruc tive bowel gas pattern. Renal shadows are obscured by bowel gas. No renal calculi. No ureteral calcul i. No pneumoperitoneum or pneumatosis. No fracture. IMPRESSION: 1. Nonobstructive bowel gas pattern. 2. Moderate to extensive fecal retention. ACT 112: Negative or not required by law. The above report was generated using voice recognition software. It may contain grammatical, syntax o r spelling errors. Electronically signed by: Willard Cooper M.D. 11/23/2021 5:30 PM
[2021-11-23] MEDS: PANTOprazole 40 MG TAB PO SCH (21:14)
[2021-11-23] MEDS: LANTUS PER UNIT CHARGE SQ SCH (21:17)
[2021-11-23] MEDS: ATORVASTATIN 40 MG TAB PO SCH (21:48)
[2021-11-23] MEDS ORDERED: INSULIN ASPART PER UNIT SC ONE (23:00)
[2021-11-24] MEDS: LEVOTHYROXINE SODIUM 88 MCG TABLET PO SCH (05:37)
[2021-11-24 06:36] LABS: Basophils # (auto) 0.03 K/uL (0-0.2); Basophils % (auto) 0.5 %; Eosinophils % (auto) 4.6 %; Hematocrit (blood only) 35.2 % (34.1-44.9); Hemoglobin 11.6 g/dl (12.0-16.0); Immature Granulocytes # (auto) 0.02 K/uL (0.00-0.02); Immature Granulocytes % (auto) 0.3 %; Lymphocytes # (auto) 2.35 K/uL (1.2-3.4); Lymphocytes % (auto) 36.3 %; Monocytes # (auto) 0.47 K/uL (0.24-0.82); Monocytes % (auto) 7.3 %; Neutrophils # (auto) 3.31 K/uL (1.4-6.5); Platelet Count 251 K/uL (130-400); RDW Coefficient of Variation 14.2 % (11.5-14.5); RDW Standard Deviation 45.5 fL (36.4-46.3); White Blood Count 6.48 K/ul (4.8-10.8)
[2021-11-24 07:19] LABS: BUN Creatinine Ratio 12.8 (10-20); Creatinine Clr Calc Pharmacy 68.7 ml/min; Est GFR (African American) 94.4 ml/min; Est GFR (Non-African American) 81.5 ml/min; Magnesium 1.6 mg/dl (1.7-2.4); Potassium 4.3 mmol/L (3.5-5.1)
[2021-11-24] MEDS: METOCLOPRAMIDE HCL 10 MG TABLET PO SCH ×4 (08:10→20:42)
[2021-11-24] MEDS: ACETAMINOPHEN 500 MG TAB PO SCH ×3 (08:10→20:43)
[2021-11-24] MEDS: POTASSIUM CHLORIDE CRTAB 20 MEQ TABCR PO SCH ×2 (08:11→20:42)
[2021-11-24] MEDS: TICAGRELOR 90 MG TAB PO SCH ×2 (08:11→20:41)
[2021-11-24] MEDS: NICOTINE 14 MG/24 HR PATCH TD SCH (08:11)
[2021-11-24] MEDS: fluvoxaMINE MALEATE 50 MG TAB PO SCH ×2 (08:11→20:42)
[2021-11-24] MEDS: SUCRALFATE 1 GM TAB PO SCH ×4 (08:52→20:42)
[2021-11-24] MEDS: POLYETHYLENE (MIRALAX) 17 GM PACK PO PRN (08:52)
[2021-11-24] MEDS: INSULIN ASPART PER UNIT SC SCH ×4 (09:04→20:53)
[2021-11-24] MEDS: hydrOXYzine HCl 10 MG TAB PO PRN ×2 (10:54→21:25)
[2021-11-24] MEDS: MAGNESIUM OXIDE 400 MG TAB PO SCH (10:54)
--- NOTE | 2021-11-24 11:53 | Hospitalist Progress Note ---
Date of Service November 24, 2021 Assessment & Plan (1) Chest pain: Plan: 59-year-old woman with CAD (s/p LAD stent x2 for NSTEMI in 10/2020), DM2, hypertension, hyperlipidemia, and is a current tobacco smoker, who presented for substernal chest pain radiating to the back, and is admitted for cardiac rule out, symptom management. Chest pain (resolved) -Borderline EKG, including repeat (nonspecific ST changes in anterior lateral leads), negative troponin, moderate electrolyte disturbances. -Lower suspicion for cardiac etiology at this time. Stronger suspicion for musculoskeletal cause (i.e. costochondritis) given patient's recent, frequent history of dry cough, as well as her physical exam. -Managing as costochondritis at this time. Pain control * Tylenol 1000 mg p.o. 3 times daily for pain control * Repeat EKG normal. * Recommend outpatient follow-up with cardiology for stress test CAD -NSTEMI in October 2020. Status post LAD stent x2. Follows with [facility]. Continue home regimen. * Brilinta 90 mg p.o. twice daily * Atorvastatin 80 mg every afternoon Subacute diarrhea/early satiety/abdominal pain -Patient has been having nonspecific gastroenteritis symptoms for months. Low suspicion for infectious process. Procalcitonin negative on admission. -Patient was evaluated by [facility] in March-EGD showed mild gastritis. There was also suspicion of gastroparesis at that time (which is what we think given her current symptoms), and she was started on Reglan, which she continues to take, despite her hand tremors. Patient never had GES to confirm. She continues to report early satiety, dyspepsia. -Patient has also been maintained on famotidine and pantoprazole. She reports continued adherence to both medicines. Given adherence, strongly suspect gastroparesis. -GI consult: Opted to schedule gastric emptying study on outpatient basis. Recommended continuing Reglan. Will consider erythromycin after GES. * Continue home gastritis regimen: Carafate, Pepcid, Protonix * KUB indicates moderate to extensive fecal retention. Scheduled miralax and ducolax Hypomagnesemia/hypokalemia -Suspect electrolyte derangements secondary to GI losses. -Received 100 mEq potassium, 7 g of IV magnesium on arrival, admission to the hospital. * Potassium chloride 40 mEq p.o. BID, Mag Ox 400mg daily. * Trend a.m. BMP, magnesium. Replete electrolytes as needed. Dyslipidemia: Continue home atorvastatin Type 2 diabetes: Basal bolus insulin + SSI, per glycemic consult Hypothyroidism: Continue home Synthroid Anxiety: Home fluvoxamine Code: Full code Dispo: Med-Surg with telemetry FEN/GI: Heart healthy DVT Prophylaxis: Brilinta (2) Anxiety: (3) CAD (coronary artery disease): (4) Hypomagnesemia: (5) Hypokalemia: (6) Dyslipidemia: Admission and Anticipated Discharge Date Admission Date: November 22, 2021 Supervising Physician Co-Signing Physician Notes Attending attestation Pt seen and examined in concert with Dr. Hutchison. In agreement with the documented findings as noted in the resident documentation with any exceptions or additions as noted here. Reports no chest discomfort at this time. Abdominal bloating mild - increased BM to 4-5 loose/runny today Hypomagnesemia & Hypokalemia - continues to stabilize. Continue to replete and monitor Gastroenteritits now with constipation - Gi consultation - KUB w/ considerable retained stool. Discussed rectal exam/disimpaction if needed and will revisit by patient request in AM. Continue supportive care with gastritis regimen Chest pain in the setting of CAD - likely costochondritic pain so will continue APAP for pain control and f/u outpatient with cardiology. Continue Brillinta and atorvastatin. Else see resident documentation as noted. Subjective Patient seen at bedside, calm comfortable cooperative. Patient describes occasional headache, but otherwise denies other symptoms. States she lives at home alone, brother lives nearby but is currently on vacation and won't be back until tomorrow, awaiting his arrival to assist in transitioning back home. Otherwise no concerns at this time. Review of Systems Review of Systems: Negative fever chills Negative dizziness Negative chest pain palpitations SOB Negative nausea vomitting diarrhea constipation Physical Exam Constitutional: well developed, well nourished, + obese and comfortable Eyes: PERRL, conjunctivae normal, anicteric sclerae ENMT: external ear and nose normal, oropharynx normal Neck: trachea midline, no thyromegaly Respiratory: normal respiratory effort, lungs clear to auscultation Cardiovascular: Rate/Rhythm: regular rate and regular rhythm Chest (Breasts): normal inspection/palpation of breasts Gastrointestinal (Abdomen): Inspection/Auscultation: abdomen normal to inspection Percussion/Palpation: + abdomen tender (mildly, diffuse) and abdomen soft Skin: no rashes, warm and dry Results & Data Results & Data ([facility]) Vital Signs (Past 12 Hours) Vital Signs Temp Pulse Resp BP Pulse Ox O2 Del Method 11/24/21 08:00 Room Air 11/24/21 08:46 36.6 C 70 18 153/91 H 93 Room Air 11/24/21 06:53 36.7 C 62 18 118/78 95 Room Air 11/24/21 03:11 36.6 C 57 L 18 117/73 96 Room Air Diagnostic Findings Laboratory Results WBC 6.48 K/ul (4.8-10.8) 11/24/21 06:01 RBC 4.00 M/uL (3.93-5.22) 11/24/21 06:01 Hgb 11.6 g/dl (12.0-16.0) L 11/24/21 06:01 Hct 35.2 % (34.1-44.9) 11/24/21 06:01 MCV 88.0 fL (80.0-100.0) 11/24/21 06:01 MCH 29.0 pg (25.0-34.0) 11/24/21 06:01 MCHC 33.0 g/dL (32.0-36.0) 11/24/21 06:01 RDW Std Deviation 45.5 fL (36.4-46.3) 11/24/21 06:01 RDW Coeff of Umair 14.2 % (11.5-14.5) 11/24/21 06:01 Plt Count 251 K/uL (130-400) 11/24/21 06:01 MPV 11.0 fL (9.4-12.3) 11/24/21 06:01 Immature Gran % (Auto) 0.3 % 11/24/21 06:01 Neut % (Auto) 51.0 % 11/24/21 06:01 Lymph % (Auto) 36.3 % 11/24/21 06:01 Millard % (Auto) 7.3 % 11/24/21 06:01 Eos % (Auto) 4.6 % 11/24/21 06:01 Baso % (Auto) 0.5 % 11/24/21 06:01 Neut # (Auto) 3.31 K/uL (1.4-6.5) 11/24/21 06:01 Lymph # (Auto) 2.35 K/uL (1.2-3.4) 11/24/21 06:01 Millard # (Auto) 0.47 K/uL (0.24-0.82) 11/24/21 06:01 Eos # (Auto) 0.30 K/uL (0-0.50) 11/24/21 06:01 Baso # (Auto) 0.03 K/uL (0-0.2) 11/24/21 06:01 Immature Gran # (Auto) 0.02 K/uL (0.00-0.02) 11/24/21 06:01 PT 10.5 Seconds (9.0-12.0) 11/20/21 19:45 INR 1.0 (0.9-1.1) 11/20/21 19:45 APTT 22.9 Seconds (21.0-31.0) 11/20/21 19:45 PTT Ratio 0.8 11/20/21 19:45 Sodium 140 mmol/L (136-145) 11/24/21 06:01 Potassium 4.3 mmol/L (3.5-5.1) 11/24/21 06:01 Chloride 107 mmol/L (98-107) 11/24/21 06:01 Carbon Dioxide 28 mmol/L (21-32) 11/24/21 06:01 Anion Gap 5 (3-11) 11/24/21 06:01 BUN 10 mg/dl (6-23) 11/24/21 06:01 Creatinine 0.78 mg/dl (0.6-1.2) 11/24/21 06:01 Est Cr Clr Drug Dosing 68.7 ml/min 11/24/21 06:01 Est GFR ( Amer) 94.4 ml/min 11/24/21 06:01 Est GFR (Non-Af Amer) 81.5 ml/min 11/24/21 06:01 BUN/Creatinine Ratio 12.8 (10-20) 11/24/21 06:01 Glucose 121 mg/dl (70-99(Fasting)) H 11/24/21 06:01 POC Glucose 221 mg/dl (70-99) H 11/24/21 11:38 Calcium 8.0 mg/dl (8.5-10.1) L 11/24/21 06:01 Phosphorus 4.6 mg/dl (2.5-4.9) D 11/21/21 06:25 Magnesium 1.6 mg/dl (1.7-2.4) L 11/24/21 06:01 Total Bilirubin 0.2 mg/dl (0.2-1.0) 11/22/21 07:00 Direct Bilirubin 0.1 mg/dl (0-0.2) 11/22/21 07:00 AST 15 U/L (13-39) 11/22/21 07:00 ALT 13 U/L (7-52) 11/22/21 07:00 Alkaline Phosphatase 118 U/L (34-104) H 11/22/21 07:00 Troponin I High Sens 9.7 pg/ml (0-14) 11/21/21 12:39 Total Protein 4.7 gm/dl (6.0-8.3) L D 11/22/21 07:00 Albumin 2.3 gm/dl (3.4-5.0) L 11/22/21 07:00 Globulin 3.1 gm/dl (2.5-4.0) 11/20/21 19:45 Albumin/Globulin Ratio 1.1 (0.9-2) 11/20/21 19:45 Procalcitonin < 0.05 ng/ml (0-0.5) 11/20/21 19:54 TSH 0.789 uIu/ml (0.300-4.500) 11/20/21 19:54 Stool Occult Bld Scrn Positive (Negative) A 11/24/21 11:51 SARS-CoV-2, RNA, NAAT NEGATIVE (NEGATIVE) 11/20/21 21:42 Impressions Chest X-Ray 11/20/21 22:54 XR chest 1V portable HISTORY: 61 years-old Female chest pain acute chest pain COMPARISON: Chest radiograph 09/20/2021 TECHNIQUE: AP view of the chest FINDINGS: Cardiomediastinal and hilar silhouettes are within normal limits. Coronary arterial stent. No pneumothorax, pleural effusion, airspace consolidation or overt pulmonary edema. Degenerative changes of the shoulders and spine. IMPRESSION: No acute process. ACT 112: Negative or not required by law. The above report was generated using voice recognition software. It may contain grammatical, syntax or spelling errors. Electronically signed by: Willard Cooper M.D. 11/21/2021 9:14 AM KUB X-Ray 11/23/21 16:58 KUB HISTORY: Acute onset abdominal pain with diarrhea Suspect overflow diarrhea COMPARISON: CT abdomen and pelvis 09/20/2021 FINDINGS: Cholecystectomy. Vascular calcifications. Moderate to extensive fecal retention. Nonobstructive bowel gas pattern. Renal shadows are obscured by bowel gas. No renal calculi. No ureteral calculi. No pneumoperitoneum or pneumatosis. No fracture. IMPRESSION: 1. Nonobstructive bowel gas pattern. 2. Moderate to extensive fecal retention. ACT 112: Negative or not required by law. The above report was generated using voice recognition software. It may contain grammatical, syntax or spelling errors. Electronically signed by: Willard Cooper M.D. 11/23/2021 5:30 PM Medications Administered Current Inpatient Medications Acetaminophen (Acetaminophen 500 Mg Tab) 1,000 mg PO TID TONI Stop: 12/21/21 08:59 Last Admin: 11/24/21 08:10 Dose: 1,000 mg Atorvastatin Calcium (Atorvastatin 40 Mg Tab) 80 mg PO QPM TONI Stop: 12/21/21 20:59 Last Admin: 11/23/21 21:48 Dose: 80 mg Dextrose (Dextrose 50% 50 Ml Syringe) 25 - 50 ml IV UD PRN; Protocol PRN Reason: Hypoglycemia Protocol Stop: 12/21/21 01:32 Famotidine (Famotidine 20 Mg Tab) 20 mg PO BID@0000,1600 TONI Stop: 12/21/21 15:59 Last Admin: 11/23/21 23:58 Dose: 20 mg Fluvoxamine Maleate (Fluvoxamine Maleate 50 Mg Tab) 50 mg PO BID TONI Stop: 12/21/21 08:59 Last Admin: 10/08/22 08:11 Dose: 50 mg Glucagon (Glucagon For Inj 1 Mg Vial) 1 mg SQ UD PRN; Protocol PRN Reason: Hypoglycemia Protocol Stop: 12/21/21 01:32 Glucose (Glucose 40% Gel 15 Gm Tube) 15 - 30 gm PO UD PRN; Protocol PRN Reason: Hypoglycemia Protocol Stop: 12/21/21 01:32 Glucose (Glucose 10 Tab/Tube) 4 - 8 tab PO UD PRN; Protocol PRN Reason: Hypoglycemia Treatment Stop: 12/21/21 01:32 Hydroxyzine HCl (Hydroxyzine Hcl 10 Mg Tab) 10 mg PO TID PRN PRN Reason: anxiety Stop: 12/21/21 01:32 Last Admin: 11/24/21 10:54 Dose: 10 mg Insulin Aspart (Insulin Aspart Per Unit) 0 units SC [facility] Stop: 12/21/21 07:29 Last Admin: 11/24/21 09:04 Dose: 5 units Insulin Glargine (Lantus Per Unit Charge) 13 units SQ HS [facility] Stop: 12/23/21 20:59 Last Admin: 11/23/21 21:17 Dose: 13 units Levothyroxine Sodium (Levothyroxine Sodium 88 Mcg Tablet) 88 mcg PO DAILYBB [facility] Stop: 12/21/21 06:29 Last Admin: 11/24/21 05:37 Dose: 88 mcg Loperamide HCl (Loperamide Hcl 2 Mg Cap) 2 mg PO PRN PRN PRN Reason: Diarrhea Stop: 12/21/21 17:11 Magnesium Oxide (Magnesium Oxide 400 Mg Tab) 400 mg PO QAM [facility] Stop: 12/24/21 08:59 Last Admin: 11/24/21 10:54 Dose: 400 mg Metoclopramide HCl (Metoclopramide Hcl 10 Mg Tablet) 10 mg PO ACHS [facility] Stop: 12/21/21 07:29 Last Admin: 11/24/21 10:55 Dose: 10 mg Miscellaneous (Remove Nicoderm Patch) 1 each N/A DAILY@0859 [facility] Stop: 12/21/21 08:58 Last Admin: 11/24/21 08:11 Dose: 1 each Miscellaneous (Carbohydrates For Hypoglycemia ) 15 - 30 gm PO UD PRN PRN Reason: Hypoglycemia Protocol Stop: 12/21/21 01:32 Miscellaneous Information (Pharmacy Glycemic Mgmt Consult) 1 each N/A UD PRN PRN Reason: Consult Stop: 12/21/21 02:12 Nicotine (Nicotine 14 Mg/24 Hr Patch) 14 mg TD QAM TONI Stop: 12/21/21 08:59 Last Admin: 11/24/21 08:11 Dose: 14 mg Ondansetron HCl (Ondansetron Inj 2 Mg/Ml 2 Ml Vial) 4 mg IV Q6H PRN PRN Reason: Nausea Stop: 12/21/21 01:32 Last Admin: 11/24/21 09:12 Dose: 4 mg Pantoprazole Sodium (Pantoprazole 40 Mg Tab) 40 mg PO QPM TONI Stop: 12/21/21 20:59 Last Admin: 11/23/21 21:14 Dose: 40 mg Polyethylene Glycol (Polyethylene (Miralax) 17 Gm Pack) 17 gm PO BID TONI Stop: 12/24/21 20:59 Potassium Chloride (Potassium Chloride Crtab 20 Meq Tabcr) 40 meq PO BID TONI Stop: 12/22/21 09:29 Last Admin: 11/24/21 08:11 Dose: 40 meq Senna/Docusate Sodium (Docusate Sodium/Senna 50/8.6mg Tab) 1 tab PO QAM TONI Stop: 12/24/21 11:29 Last Admin: 11/24/21 12:24 Dose: 1 tab Sucralfate (Sucralfate 1 Gm Tab) 1 gm PO ACHS TONI Stop: 12/21/21 07:29 Last Admin: 11/24/21 12:24 Dose: 1 gm Ticagrelor (Ticagrelor 90 Mg Tab) 90 mg PO BID TONI Stop: 12/21/21 08:59 Last Admin: 11/24/21 08:11 Dose: 90 mg Resident Activity Tracking Resident Involvement: Resident Care Provided Care Provided: Adult Hospital Medicine (1) CAD (coronary artery disease) Associated angina: unspecified whether angina present Coronary Disease- Associated Artery/Lesion type: [place] artery [place] vs. transplanted heart: [place] heart Qualified Code(s): I25.10 - Atherosclerotic heart disease of [place] coronary artery without angina pectoris
[2021-11-24] MEDS: DOCUSATE SODIUM/SENNA 50/8.6MG TAB PO SCH (12:24)
[2021-11-24 13:28] LABS: Adenovirus F 40/41 PCR Not Detected (NotDetected); Astrovirus PCR Not Detected (NotDetected); Campylobacter PCR Not Detected (NotDetected); Clostridium diff Toxin A/B PCR Not Detected (NotDetected); Cryptosporidium PCR Not Detected (NotDetected); Cyclospora cayetanensis PCR Not Detected (NotDetected); Entamoeba histolytica PCR Not Detected (NotDetected); Enteroaggregative E.coli(EAEC) Not Detected (NotDetected); Enteropathogenic E.coli (EPEC) Not Detected (NotDetected); Enterotoxigenic E.coli (ETEC) Not Detected (NotDetected); Giardia lamblia PCR Not Detected (NotDetected); Norovirus GI/GII PCR Not Detected (NotDetected); Plesiomonas shigelloides PCR Not Detected (NotDetected); Rotavirus A PCR Not Detected (NotDetected); Salmonella PCR Not Detected (NotDetected); Sapovirus PCR Not Detected (NotDetected); Shiga-like Toxin E.coli (STEC) Not Detected (NotDetected); Shigella/Enteroinvasive E.coli Not Detected (NotDetected); Vibrio cholerae PCR Not Detected (NotDetected); Vibrio species PCR Not Detected (NotDetected); Yersinia enterocolitica PCR Not Detected (NotDetected)
[2021-11-24] MEDS: FAMOTIDINE 20 MG TAB PO SCH ×2 (16:19→23:33)
[2021-11-24] MEDS: ATORVASTATIN 40 MG TAB PO SCH (20:42)
[2021-11-24] MEDS: PANTOprazole 40 MG TAB PO SCH (20:42)
[2021-11-24] MEDS: POLYETHYLENE (MIRALAX) 17 GM PACK PO SCH (20:42)
[2021-11-24] MEDS: LANTUS PER UNIT CHARGE SQ SCH (20:52)
[2021-11-25] MEDS: LEVOTHYROXINE SODIUM 88 MCG TABLET PO SCH (05:37)
[2021-11-25 06:21] LABS: Hematocrit (blood only) 35.2 % (34.1-44.9); Hemoglobin 11.8 g/dl (12.0-16.0); Mean Corpuscular Hemoglobin 29.2 pg (25.0-34.0); Mean Corpuscular Hgb Conc 33.5 g/dL (32.0-36.0); Mean Corpuscular Volume 87.1 fL (80.0-100.0); Platelet Count 243 K/uL (130-400); RDW Standard Deviation 44.9 fL (36.4-46.3); Red Blood Count 4.04 M/uL (3.93-5.22); White Blood Count 6.17 K/ul (4.8-10.8)
[2021-11-25 06:57] LABS: BUN Creatinine Ratio 13.8 (10-20); Calcium 8.3 mg/dl (8.5-10.1); Creatinine Clr Calc Pharmacy 66.6 ml/min; Est GFR (African American) 91.6 ml/min; Magnesium 1.4 mg/dl (1.7-2.4); Potassium 4.7 mmol/L (3.5-5.1)
[2021-11-25] MEDS: METOCLOPRAMIDE HCL 10 MG TABLET PO SCH ×2 (07:48→11:30)
[2021-11-25] MEDS: DOCUSATE SODIUM/SENNA 50/8.6MG TAB PO SCH (07:48)
[2021-11-25] MEDS: MAGNESIUM OXIDE 400 MG TAB PO SCH (07:48)
[2021-11-25] MEDS: TICAGRELOR 90 MG TAB PO SCH (07:49)
[2021-11-25] MEDS: NICOTINE 14 MG/24 HR PATCH TD SCH (07:49)
[2021-11-25] MEDS: POTASSIUM CHLORIDE CRTAB 20 MEQ TABCR PO SCH (07:49)
[2021-11-25] MEDS: fluvoxaMINE MALEATE 50 MG TAB PO SCH (07:49)
[2021-11-25] MEDS: SUCRALFATE 1 GM TAB PO SCH ×2 (07:49→11:30)
[2021-11-25] MEDS: POLYETHYLENE (MIRALAX) 17 GM PACK PO SCH (07:50)
[2021-11-25] MEDS: ACETAMINOPHEN 500 MG TAB PO SCH ×2 (07:50→15:45)
[2021-11-25] MEDS: MAGNESIUM SULFATE / D5W 1 GM/100 ML BAG IV SCH ×4 (08:43→15:46)
[2021-11-25] MEDS: INSULIN ASPART PER UNIT SC SCH ×3 (08:48→16:57)
[2021-11-25 11:42] LABS: BUN Creatinine Ratio 15.2 (10-20); Calcium 8.5 mg/dl (8.5-10.1); Creatinine Clr Calc Pharmacy 67.5 ml/min; Est GFR (Non-African American) 80.2 ml/min; Potassium 5.2 mmol/L (3.5-5.1)
--- NOTE | 2021-11-25 13:17 | Discharge Summary ---
Date of Service November 25, 2021 Admission HPI Per Admitting Provider Yolanda Lua is a 61yo female presenting with chest discomfort. She has history of CAD s/p NSTENI in 10/2020 with placement of CHANTAL x 2 to LAD, DM, HTN and HLP, ongoing tobacco use. She reports substernal chest discomfort that began 11/19/21 afternoon around 14:00. Pain is substernal with radiation into the back. Intermittent, 6/10 in severity with associated nausea. Pain is worsened by pressing on her chest as well as sitting upright. She has not taken any medications. No trauma, no change in activity. No GERD symptoms. She reports pain is somewhat similar to prior cardiac event. No additional complaints at this time. Patient has occasional dizziness for which she takes Meclizine. Does report and increase in burping/belching lately. In the ER she is afebrile, HD stable, NAD. ER Course: Zofran 4mg IV, KCL 40mEq + 20mEq infusing in NSS, Mag x 2 gm Admission Exam Per Admitting Provider General: patient resting comfortably, NAD, non-toxic in appearance, AA&O x 4, anxious Skin: warm, dry, intact, no rashes or lesions HEENT: NC/AT, PERRL, EOMI, anicteric sclera, conjunctiva without injection, external ear normal to inspection and nontender, nares patent, moist mucus membranes, dentition intact, no oropharyngeal lesions, neck supple, trachea midline, no LAD, no thyromegaly, no JVD Heart: +S1/S2, regular, no m/r/g, +chest pain with sternal palpation Lungs: equal air entry bilaterally, no rales/rhonchi/wheezes Abd: +BS, soft, NT/ND, no masses/organomegaly/ascites Ext: warm, 2+ pulses in UE/LE bilaterally, no clubbing/cyanosis or edema Neuro: nonfocal, patient AA&O x 4, speech intact, no facial droop, moving all extremities on command with equal strength 5/5 Principal Diagnosis Electrolyte abnormality Discharge Exam Constitutional well developed, well nourished, + obese and comfortable Eyes PERRL, conjunctivae normal, anicteric sclerae ENMT external ear and nose normal, oropharynx normal Neck trachea midline, no thyromegaly Respiratory normal respiratory effort, lungs clear to auscultation Cardiovascular Rate/Rhythm: regular rate and regular rhythm Chest (Breasts) normal inspection/palpation of breasts Gastrointestinal (Abdomen) Inspection/Auscultation: abdomen normal to inspection Percussion/Palpation: + abdomen tender (mildly, diffuse) and abdomen soft Skin no rashes, warm and dry Discharge Data Allergies Allergy/AdvReac Type Severity Reaction Status Date / Time dulaglutide [From Trulicity] AdvReac Intermediate stomach Verified 11/20/21 23:05 pain albiglutide [From Tanzeum] AdvReac Unknown CAN'T Verified 11/20/21 23:05 REMEMBER Consultations 11/23/21 07:51 Consult Gastroenterology Routine Hospital Course (1) Chest pain: 59-year-old woman with CAD (s/p LAD stent x2 for NSTEMI in 10/2020), DM2, hypertension, hyperlipidemia, and is a current tobacco smoker, who presented for substernal chest pain radiating to the back, and is admitted for cardiac rule out, symptom management. Chest pain (resolved) Borderline EKG, including repeat (nonspecific ST changes in anterior lateral leads), negative troponin, moderate electrolyte disturbances. Lower suspicion for cardiac etiology at this time. Stronger suspicion for musculoskeletal cause (i.e. costochondritis) given patient's recent, frequent history of dry cough, as well as her physical exam. Managing as costochondritis at this time. Pain control with tylenol. May see cardiology in outpatient for stress test. CAD NSTEMI in October 2020. Status post LAD stent x2. [facility]. Continue home regimen. * Brilinta 90 mg p.o. twice daily * Atorvastatin 80 mg every afternoon Subacute diarrhea/early satiety/abdominal pain Patient has been having nonspecific gastroenteritis symptoms for months. Low suspicion for infectious process. Procalcitonin negative on admission. Patient was evaluated by [facility] in March-EGD showed mild gastritis. There was also suspicion of gastroparesis at that time (which is what we think given her current symptoms), and she was started on Reglan, which she continues to take, despite her hand tremors. Patient never had GES to confirm. She continues to report early satiety, dyspepsia. Patient has also been maintained on famotidine and pantoprazole. She reports continued adherence to both medicines. Given adherence, strongly suspect gastroparesis. GI consult: Opted to schedule gastric emptying study on outpatient basis. Recommended continuing Reglan. Will consider erythromycin after GES. * Continue home gastritis regimen: Carafate, Pepcid, Protonix * KUB indicates moderate to extensive fecal retention. Patient started on edison lax Hypomagnesemia/hypokalemia Suspect electrolyte derangements secondary to GI losses. Potassium Magnesium repleted, recheck in 1 week on outpatient basis. Dyslipidemia: Continue home atorvastatin Type 2 diabetes: continue home insulin regime Hypothyroidism: Continue home Synthroid Anxiety: Home fluvoxamine (2) Anxiety: (3) CAD (coronary artery disease): (4) Hypomagnesemia: (5) Hypokalemia: (6) Dyslipidemia: Total Time Total Time Spent Total Time Spent (In Minutes): see attending attestation Discharge Plan Discharge Items Patient Disposition: Home - Self-Care Reason For Visit: CHEST PAIN Discharge Diagnosis: Hypokalemia, hypomagnesemia Activity: Resume your previous activity Non-emergency contact: Primary Care Provider Call non-emergency contact if: you have any medication questions, your symptoms worsen and your pain is not controlled Follow-up/Referrals: Randall Glover MD [Physician] - (Concern for gastroparesis, needs GES. Please call Dr. Glover's office to schedule.) Jc Zaman, [Primary Care Provider] - 12/04/21 1:00 pm Diet: Regular Addtl Attending Provider Instructions: Dear Yolanda, You came to the hospital because of sharp chest pain. You were admitted to the hospital due to your electrolyte abnormalities, specifically low potassium and low magnesium. You received an EKG and lab work to ensure that your chest pain symptoms didn't have a cardiac cause. We then replenished your electrolytes until they were at acceptable levels. Now that your electrolytes have stabilized at those levels, we feel that you are ready to safely discharged home. * We sent a drug called hydroxyzine to your pharmacy. Take hydroxyzine 5 mg up to 3 times daily as needed for anxiety. * Be careful when taking the drug as it can make you drowsy. Do not take more than 3 tablets a day. * Please continue to take miralax for the next week to improve your constipation * Please take Magnesium Oxide supplements daily to maintain your magnesium levels * Please take Potassium Chloride supplements daily to maintain your potassium levels * Have your electrolyte levels checked in 1 week with your PCP Continue taking your other medications as directed unless otherwise instructed by your primary care physician. * Please make an appointment with Dr. Marc Zaman, your primary care physician, within 1-2 weeks of discharge. It is important that you see him so that he can reconcile your meds and adjust them for you as needed. You can reach his office at [phone]. 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 If do not hear from their office within 2-3 business days you may call them at [phone]. It has been our pleasure caring for you here at [facility]. We wish you the best of health in your recovery. Pending Studies at Discharge: No Stand-Alone Forms: My [facility], Smoking Cessation Medications and DC Order Prescriptions: New hydroxyzine HCl 10 mg Tablet 5 mg PO TID PRN (Reason: anxiety) Qty: 30 0RF Continued famotidine 20 mg tablet 20 mg PO BID Qty: 180 3RF Rx Instructions: TAKES AT 1600 & 2400 Brilinta 90 mg tablet 90 mg PO BID 90 Days Qty: 180 3RF Label Comments: "I dont know this medications." Rx Instructions: TAKES 1600 & 2400 (DME) pen needle, diabetic [BD Ultra-Fine Cary Pen Needle] 32 gauge x 5/32" needle See Dose Instructions .ROUTE .MEDSUPPLY Qty: 200 11RF Dose Instruction: As directed Rx Instructions: use 2 times daily or as directed by physician to monitor blood sugar sucralfate 1 gram tablet 1 g PO ACHS 30 Days Qty: 120 3RF atorvastatin 80 mg tablet 80 mg PO QPM Qty: 90 1RF potassium chloride 20 mEq tablet,ER particles/crystals 40 meq PO QAM Qty: 180 1RF magnesium chloride 70 mg tablet,delayed release (DR/EC) 70 mg PO DAILY 90 Days Qty: 90 1RF metoclopramide HCl 10 mg tablet 10 mg PO ACHS Qty: 120 0RF Rx Instructions: for your nausea and gastroparesis (DME) blood-glucose meter [[employer] [facility] Autocode Meter] Kit See Rx Instructions .Route Rx Instructions: As directed levothyroxine 88 mcg tablet 88 mcg PO DAILY Qty: 30 5RF Humulin R U-500 (Conc) Kwikpen 500 unit/mL (3 mL) insulin pen 10 - 25 unit subcut BID Rx Instructions: 25 units AM (~3pm) and 10 units PM (12am) meclizine 25 mg tablet 25 mg PO TID PRN (Reason: dizziness) Rx Instructions: for your dizziness nystatin 100,000 unit/gram powder 1 applic topical BID PRN (Reason: Skin Irritation) pantoprazole 40 mg tablet,delayed release (DR/EC) 40 mg PO QPM acetaminophen [Tylenol Extra Strength] 500 mg Tablet 1,000 mg PO TID Qty: 60 0RF Rx Instructions: OTC fluvoxamine 50 mg tablet 50 mg PO BID Qty: 60 0RF diclofenac sodium [Voltaren Arthritis Pain] 1 % gel 4 g EXT QID PRN (Reason: Pain) Rx Instructions: Apply to back at site of pain Discharge Orders: Discharge Order (Routine); Ordered 11/25/21 Ordered By: Stephanie Richardson/Other Patient Handouts: Managing Type 2 Diabetes Admission Data Admit Date/Time: 11/22/21 10:09 Attending Provider: Harvey Mendoza Admit Provider: Angela Kraus Primary Care Provider: Jc Zaman Other Providers: Homa Alberto ; Parvez Palma ; Dahaina Smalls ; Leslie Matthews ; Regina Arora Janet R. ; Randall Glover ; Kelsea Bass ; Kirt Hernandez ; Miriam Sargent ; Sandy Velasquez ; Blane Cortes ; Delaney Niño ; Nancy Delgado ; Bianca Pompa ; Khushboo Blandon ; Cathleen Gerardo ; Anoop Del Rio ; Yordy Mcguire ; Manjula Willard ; Phuong Cm Jr Other Interventions: Discharge Summary Assessment (RN) Last Done: 11/21/21 08:35 Supervising Physician Co-Signing Physician Notes Attending attestation Pt seen and examined in concert with Dr. Hutchison. In agreement with the documented findings as noted in the resident documentation with any exceptions or additions as noted here. Reports no chest discomfort at this time. Abdominal bloating/discomfort is at chronic baseline. Bowel movements increased with miralax. On examination, S1/S2 nl RRR no MCG. CTAB. Abd NT/ND BS+ve Hypomagnesemia & Hypokalemia - continues to stabilize. Continue to replete and monitor Gastroenteritits now with constipation/diarrhea - Gi consultation - KUB w/ considerable retained stool. Discussed rectal exam/disimpaction and declined by patient. Chest pain in the setting of CAD - likely costochondritic pain so will continue APAP for pain control and f/u outpatient with cardiology. Continue Brillinta and atorvastatin. Pt states that she would prefer not to go home but is unable to articulate a specific concern at this time. offered follow up to patient's support and encouraged further discussion if desired to support her comfort. Else see resident documentation as noted. total attending physician time spent with this patient's care on the day of discharge: 45 minutes Resident Activity Tracking Resident Involvement: Resident Care Provided Care Provided: Adult Hospital Medicine
[2021-11-25] MEDS: FAMOTIDINE 20 MG TAB PO SCH (16:57)
[2021-11-25 17:59] LABS: Anion Gap 4.8 (3-11)
== END 2021-11-25 17:33 | disposition home or self-care (01) | DRG 313 ==
LOC: ED 19:33 → INTOOBSV 11-21 00:16 → SUATTDRO 11-21 00:16 → 2N 11-21 00:16 → SUATTDRO 11-22 10:09
DX: E03.9 Hypothyroidism, unspecified; I10 Essential (primary) hypertension; E78.5 Hyperlipidemia, unspecified; Z79.890 Hormone replacement therapy; E11.65 Type 2 diabetes mellitus with hyperglycemia; Z68.30 Body mass index [BMI] 30.0-30.9, adult; I25.2 Old myocardial infarction; E66.9 Obesity, unspecified; E11.43 Type 2 diabetes mellitus with diabetic autonomic (poly)neuropathy; F17.210 Nicotine dependence, cigarettes, uncomplicated; E87.6 Hypokalemia; Z95.5 Presence of coronary angioplasty implant and graft; Z88.8 Allergy status to other drugs, medicaments and biological substances; I25.10 Atherosclerotic heart disease of native coronary artery without angina pectoris; R11.0 Nausea; R07.89 Other chest pain; E83.42 Hypomagnesemia; Z91.199 Patient's noncompliance with other medical treatment and regimen due to unspecified reason; K21.9 Gastro-esophageal reflux disease without esophagitis; F41.9 Anxiety disorder, unspecified; Z79.4 Long term (current) use of insulin

== ENCOUNTER 2022-01-25 16:05 | Inpatient (IN) ==
[2022-01-25 18:24] LABS: Appearance Urine Cloudy (Clear); Bacteria Urine Automated 1+ (Negative); Bilirubin Urine Negative (Negative); Blood Urine Negative (Negative); Color Urine Yellow; Epithelial Cell Urine Auto >30 /lpf (0-5); Glucose Urine UA 3+ (Negative); Ketones Urine Negative (Negative); Leukocyte Esterase Urine Negative (Negative); Nitrite Urine Negative (Negative); Protein Urine Trace (Negative); RBC Urine Automated 0-4 /hpf (0-4); Specific Gravity Urine 1.026 (1.000-1.030); Urobilinogen Urine Negative (Negative)
[2022-01-25 18:29] LABS: Basophils # (auto) 0.04 K/uL (0-0.2); Basophils % (auto) 0.3 %; Eosinophils # (auto) 0.01 K/uL (0-0.50); Eosinophils % (auto) 0.1 %; Hemoglobin 14.4 g/dl (12.0-16.0); Immature Granulocytes # (auto) 0.07 K/uL (0.00-0.02); Immature Granulocytes % (auto) 0.4 %; Lymphocytes # (auto) 1.84 K/uL (1.2-3.4); Lymphocytes % (auto) 11.7 %; Mean Corpuscular Hemoglobin 28.7 pg (25.0-34.0); Mean Corpuscular Hgb Conc 32.7 g/dL (32.0-36.0); Mean Corpuscular Volume 87.8 fL (80.0-100.0); Mean Platelet Volume 11.4 fL (9.4-12.3); Monocytes # (auto) 0.65 K/uL (0.24-0.82); Monocytes % (auto) 4.1 %; Neutrophils # (auto) 13.16 K/uL (1.4-6.5); Neutrophils % (auto) 83.4 %; Platelet Count 354 K/uL (130-400); RDW Coefficient of Variation 12.7 % (11.5-14.5); RDW Standard Deviation 40.7 fL (36.4-46.3); Red Blood Count 5.01 M/uL (3.93-5.22); White Blood Count 15.77 K/ul (4.8-10.8)
[2022-01-25 19:10] LABS: Albumin Globulin Ratio 0.9 (0.9-2); Albumin Level 3.3 gm/dl (3.4-5.0); BUN Creatinine Ratio 5.9 (10-20); Bilirubin,Total 0.3 mg/dl (0.2-1.0); Calcium 8.1 mg/dl (8.5-10.1); Creatinine Clr Calc Pharmacy 49.9 ml/min; Est GFR (African American) 68.3 ml/min; Est GFR (Non-African American) 58.9 ml/min; Globulin 3.7 gm/dl (2.5-4.0); Potassium 3.8 mmol/L (3.5-5.1)
[2022-01-25] MEDS ORDERED: SODIUM CHLORIDE 0.9% 1000ML 1,000 ML IV ONE (21:49)
[2022-01-25] MEDS ORDERED: NovoLIN-R INSULIN PER UNIT CHARGE IV STA (21:55)
--- NOTE | 2022-01-25 21:59 | Emergency Department Note ---
Impression & Plan Hyperglycemia, Leukocytosis, UTI (urinary tract infection) ED Provider Note INFORMANT: Patient and family ED PROVIDER(S): Sean Zaidi MD CHIEF COMPLAINT: Hyperglycemia PLAN: Disposition: Admitted Condition: Good Outpatient prescription management: none Referral: None MEDICAL DECISION MAKING: Patient presented because of hyperglycemia by the direction of her PCP. She has been having problems with her blood sugar running consistently high. She was 461 in the office. The patient had taken her morning insulin. She has been having problems with feeling shaky. By history the patient is having issues with understanding her insulin regimen and the need for proper dietary control. The patient had a work-up initiated. She was found to have a moderate leukocytosis of 15,000. Her blood glucose was over 350. Urinalysis was somewhat concerning for infection. She did note some urinary frequency. She also had flank pain. The patient was prepped for CT imaging. She was hydrated. She was given IV insulin. The patient's blood sugar was rechecked and she dropped down to the 50 range. She was given food and it gradually increased. The patient was given a dose of IV Rocephin. She does not feel well enough to be discharged. Consultation was made with Dr. Laurent Gaytan of the [facility] service. Patient was evaluated in the ER for further manageme nt. Triage Nursing notes reviewed and agree them. Vital Signs: reviewed and remarkable for tachycardia Differential diagnosis: Infection, dehydration, metabolic abnormality, hypo/hyperglycemia, electrolyte disturbance, anemia, hypoxia, cardiac sources, intracerebral event, toxicologic, neurologic, as well as other pathologies. Diagnostics interpreted by me: ECG: Twelve-lead ECG reveals a sinus bradycardia 59 bpm. Low voltage QRS. There is a T wave abnormality inferiorly and anteriorly. When compared to November 22, 2021 there is no significant change. No ST elevation. Cardiac Monitoring: Cardiac monitoring ordered by me: The patient was placed on continuous cardiac monitoring and observed. It revealed a normal sinus rhythm at 99 beats per minute without ectopy or evidence of dysrhythmia. Imaging studies: CT scan of the abdomen and pelvis revealed no acute pathology. HPI: The patient is a 61year old female who presents to the Emergency Room with complaints of hyperglycemia. This started over the last few weeks and is worsening. Patient states she has had blood sugars that have been creeping up over 300 and into the 400 range. She was seen at the [facility] office today and her blood glucose was 461. She was directed to the ER. Patient notes that she has been feeling shaky and weak. She has some weakness, urinary frequency and does note some lower abdominal discomfort and flank pain. The patient has found no relieving factors. Current pain is rated as 0/10. Patient has not been using a sliding scale. Patient does admit to dietary indiscretion. She does note some cold symptoms, albeit mild recently. Pt denies LOC, headache, fevers, chills, diaphoresis, visual changes, neck pain, chest pain, breathing difficulties, nausea, vomiting, melena, hematochezia, numbness, lymphadenopathy, rash, or other complaints. ROS: See above HPI for pertinent positives & negatives. A total of 10 systems reviewed and were otherwise negative. PAST MEDICAL HISTORY:See Below , diabetes PAST SURGICAL HISTORY:See Below, FAMILY HISTORY:See Below SOCIAL HISTORY:See Below, smoker HOME MEDICATIONS:See Below ALLERGIES:See Below VITALS:See Below PHYSICAL EXAMINATION: GENERAL: Awake, alert, anxious-appearing, in no distress HENT: Normocephalic, atraumatic. Oropharynx unremarkable. EYES: Normal conjunctiva. Sclera non-icteric. NECK: Inspection normal. Non-tender. Supple. No nuchal rigidity. FROM. No masses. RESPIRATORY: Clear to auscultation. No wheezes. No rales. Normal respiratory effort. CARDIAC: Borderline tachycardic rate. Normal rhythm. No murmurs. No rubs. Extremities warm and well perfused. Pulses equal. No JVD. GI: Soft, non-distended. Left flank tenderness to palpation. No rebound or guarding. No masses. RECTAL: Deferred. MUSCULOSKELETAL: Atraumatic. Chest examination reveals no tenderness. The back is symmetrical on inspection without obvious abnormality. There is left CVA tenderness to palpation. No joint edema. LOWER EXTREMITIES: Calves are equal size bilaterally and non-tender. No edema. No discoloration. NEURO: Resting tremor noted in the right upper extremity. Patient states that is been an ongoing problem for her. Normal sensorium. No sensory or motor deficits noted. SKIN: No rash or jaundice noted. Sean Zaidi MD Past Med/Surg History Medical History Albuminuria Anxiety CAD (coronary artery disease) No remaining occlusive disease after 2 LAD drug eluting stents 10/22/20. Follows with Dr. Harris Chronic headaches Depression Diabetes type 2, uncontrolled IDDM Diabetic nephropathy associated with type 2 diabetes mellitus Dyslipidemia Hypertension Hypokalemia Hypomagnesemia Hypothyroidism NSTEMI (non-ST elevated myocardial infarction) 10/22/2020 s/p 2 CHANTAL Obesity Osteoarthritis Tobacco abuse Vulvitis Surgical History History of cardiac catheterization 10/22/2020 Dominant: Right Left Main (% Stenosis): Normal LAD (% Stenosis): Proximal (99) and Mid (75) Circumflex (% Stenosis): Normal (luminal irregularities) RCA (% Stenosis): Normal (Luminal irregularities) 2 CHANTAL to LAD History of cholecystectomy History of dental surgery History of tonsillectomy S/P coronary artery stent placement 2 CHANTAL to LAD 10/22/2020 Family History Unknown Diabetes Thyroid disorder Father Diabetes Other No family history of adverse response to anesthesia Denies family history of Ovarian cancer Prostate cancer Breast cancer Colorectal cancer Uterine cancer Social History Smoking Status: Current every day smoker Tobacco Type: Cigarettes packs per day: 0.5; Cigarettes Per Day: 10 cigs; Second Hand Exposure: Yes; Do You Dip or Chew Tobacco: No; Tobacco Cessation Education Requested by Patient: No Hx Alcohol Use: No Hx Substance Use: No Preferred Language: Bulgarian Communication Ability: Effective Visual Impairment: No Limitations Regulatory Leader Required: No Beliefs That Will Affect Care: None marital status: Single Current Living Situation: Alone current occupational status: disabled How many Children do You have: 0 Other Information That Helps Us Care for You: No (lives alone) Feels Safe at Home: Yes Safety Concerns: Feels Safe At This Time Safety Concerns Comment: Gets nervous sometimes because she lives alone, gets shaky from anxiety caffeine: Yes Dental Care, Regularly: No Physical Activity Frequency: Does not Exercise Seatbelt Use: always Sunscreen Use: No Assistive Devices: Glasses Allergies Allergies Allergy/AdvReac Type Severity Reaction Status Date / Time dulaglutide [From Trulicity] AdvReac Intermediate stomach Verified 01/25/22 20:23 [facility] AdvReac Unknown CAN'T Verified 01/25/22 20:23 REMEMBER Home Meds Home Medications Medication Instructions Recorded Confirmed nystatin 100,000 unit/gram topical 1 applic topical BID PRN Skin 08/20/21 01/25/22 powder Irritation pantoprazole 40 mg tablet,delayed 40 mg PO QPM 09/06/21 01/25/22 release meclizine 25 mg tablet 25 mg PO TID PRN dizziness 10/11/21 01/25/22 blood-glucose meter (Prodigy 10/15/21 01/25/22 Autocode Meter kit) insulin regular hum U-500 conc 500 10 - 25 unit subcut BID 11/01/21 01/25/22 unit/mL(3 mL) subcut pen (Humulin R U-500 (Conc) Insulin Kwikpen) acetaminophen 500 mg tablet 1,000 mg PO TID PRN Pain 01/25/22 01/25/22 (Tylenol Extra Strength) Previous Rx's Medication Instructions Recorded famotidine 20 mg tablet 20 mg PO BID #180 tabs 09/05/21 ticagrelor 90 mg tablet (Brilinta) 90 mg PO BID 90 days #180 tabs 09/05/21 pen needle, diabetic 32 gauge x #200 ea 09/13/21" (BD Ultra-Fine [place] Pen Needle) fluvoxamine 50 mg tablet 50 mg PO BID #60 tabs 09/15/21 atorvastatin 80 mg tablet 80 mg PO QPM #90 tabs 10/03/21 potassium chloride 20 mEq 40 meq PO QAM #180 tabs 10/03/21 tablet,extended release(part/cryst) sucralfate 1 gram tablet 1 g PO ACHS 30 days #120 tabs 10/03/21 levothyroxine 88 mcg tablet 88 mcg PO DAILY #30 tabs 10/15/21 metoclopramide HCl 10 mg tablet 10 mg PO ACHS #120 tabs 11/21/21 hydroxyzine HCl 10 mg tablet 5 mg PO TID PRN anxiety #30 tabs 01/17/22 Results & Data (ED) Vital Signs Vital Signs - 24 hr 01/26/22 00:28 Pulse Rate [Finger] 65 Respiratory Rate 18 Blood Pressure [Right Arm] 99/62 L Blood Pressure Mean [Right Arm] 74 Pulse Oximetry 99 Oxygen Delivery Method Room Air Laboratory Data Result diagrams: 01/26/22 06:17 01/26/22 06:17 Lab Results 01/25/22 01/25/22 01/25/22 Range/Units 16:21 17:53 17:54 WBC 15.77 H (4.8-10.8) K/ul RBC 5.01 (3.93-5.22) M/uL Hgb 14.4 (12.0-16.0) g/dl Hct 44.0 (34.1-44.9) % MCV 87.8 (80.0-100.0) fL MCH 28.7 (25.0-34.0) pg MCHC 32.7 (32.0-36.0) g/dL RDW Std Deviation 40.7 (36.4-46.3) fL RDW Coeff of Umair 12.7 (11.5-14.5) % Plt Count 354 (130-400) K/uL MPV 11.4 (9.4-12.3) fL Immature Gran % (Auto) 0.4 % Neut % (Auto) 83.4 % Lymph % (Auto) 11.7 % [place] % (Auto) 4.1 % Eos % (Auto) 0.1 % Baso % (Auto) 0.3 % Neut # (Auto) 13.16 H (1.4-6.5) K/uL Lymph # (Auto) 1.84 (1.2-3.4) K/uL [place] # (Auto) 0.65 (0.24-0.82) K/uL Eos # (Auto) 0.01 (0-0.50) K/uL Baso # (Auto) 0.04 (0-0.2) K/uL Immature Gran # (Auto) 0.07 H (0.00-0.02) K/uL Sodium (136-145) mmol/L Potassium (3.5-5.1) mmol/L Chloride (98-107) mmol/L Carbon Dioxide (21-32) mmol/L Anion Gap (3-11) BUN (6-23) mg/dl Creatinine (0.6-1.2) mg/dl Est Cr Clr Drug Dosing ml/min Est GFR ( Amer) ml/min Est GFR (Non-Af Amer) ml/min BUN/Creatinine Ratio (10-20) Glucose (70-99(Fasting)) mg/dl POC Glucose 448 H* (70-99) mg/dl Calcium (8.5-10.1) mg/dl Total Bilirubin (0.2-1.0) mg/dl AST (13-39) U/L ALT (7-52) U/L Alkaline Phosphatase (34-104) U/L Total Protein (6.0-8.3) gm/dl Albumin (3.4-5.0) gm/dl Globulin (2.5-4.0) gm/dl Albumin/Globulin Ratio (0.9-2) Urine Color Yellow Urine Appearance Cloudy A (Clear) Urine pH 5.0 (4.5-7.5) Ur Specific [place] 1.026 (1.000-1.030) Urine Protein Trace H (Negative) Urine Glucose (UA) 3+ H (Negative) Urine Ketones Negative (Negative) Urine Blood Negative (Negative) Urine Nitrite Negative (Negative) Urine Bilirubin Negative (Negative) Urine Urobilinogen Negative (Negative) Ur Leukocyte Esterase Negative (Negative) Urine WBC (Auto) 5-10 H (0-5) /hpf Urine RBC (Auto) 0-4 (0-4) /hpf U Hyaline Cast (Auto) 5-10 H (0-5) /lpf U Epithel Cells (Auto) >30 H (0-5) /lpf Urine Bacteria (Auto) 1+ H (Negative) SARS-CoV-2 (PCR) (Negative) Influenza Type A (PCR) (Neg) Influenza Type B (PCR) (Neg) RSV (RT-PCR) (Neg) 01/25/22 01/25/22 01/25/22 Range/Units 17:54 22:54 23:14 WBC (4.8-10.8) K/ul RBC (3.93-5.22) M/uL Hgb (12.0-16.0) g/dl Hct (34.1-44.9) % MCV (80.0-100.0) fL MCH (25.0-34.0) pg MCHC (32.0-36.0) g/dL RDW Std Deviation (36.4-46.3) fL RDW Coeff of Umair (11.5-14.5) % Plt Count (130-400) K/uL MPV (9.4-12.3) fL Immature Gran % (Auto) % Neut % (Auto) % Lymph % (Auto) % [place] % (Auto) % Eos % (Auto) % Baso % (Auto) % Neut # (Auto) (1.4-6.5) K/uL Lymph # (Auto) (1.2-3.4) K/uL [place] # (Auto) (0.24-0.82) K/uL Eos # (Auto) (0-0.50) K/uL Baso # (Auto) (0-0.2) K/uL Immature Gran # (Auto) (0.00-0.02) K/uL Sodium 130 L (136-145) mmol/L Potassium 3.8 (3.5-5.1) mmol/L Chloride 96 L (98-107) mmol/L Carbon Dioxide 22 (21-32) mmol/L Anion Gap 12 H (3-11) BUN 6 (6-23) mg/dl Creatinine 1.02 (0.6-1.2) mg/dl Est Cr Clr Drug Dosing 49.9 ml/min Est GFR ( Amer) 68.3 ml/min Est GFR (Non-Af Amer) 58.9 ml/min BUN/Creatinine Ratio 5.9 L (10-20) Glucose 359 H* (70-99(Fasting)) mg/dl POC Glucose 58 L* (70-99) mg/dl Calcium 8.1 L (8.5-10.1) mg/dl Total Bilirubin 0.3 (0.2-1.0) mg/dl AST 30 (13-39) U/L ALT 19 (7-52) U/L Alkaline Phosphatase 203 H (34-104) U/L Total Protein 7.0 (6.0-8.3) gm/dl Albumin 3.3 L (3.4-5.0) gm/dl Globulin 3.7 (2.5-4.0) gm/dl Albumin/Globulin Ratio 0.9 (0.9-2) Urine Color Urine Appearance (Clear) Urine pH (4.5-7.5) Ur Specific [place] (1.000-1.030) Urine Protein (Negative) Urine Glucose (UA) (Negative) Urine Ketones (Negative) Urine Blood (Negative) Urine Nitrite (Negative) Urine Bilirubin (Negative) Urine Urobilinogen (Negative) Ur Leukocyte Esterase (Negative) Urine WBC (Auto) (0-5) /hpf Urine RBC (Auto) (0-4) /hpf U Hyaline Cast (Auto) (0-5) /lpf U Epithel Cells (Auto) (0-5) /lpf Urine Bacteria (Auto) (Negative) SARS-CoV-2 (PCR) NEGATIVE (Negative) Influenza Type A (PCR) Negative (Neg) Influenza Type B (PCR) Negative (Neg) RSV (RT-PCR) Negative (Neg) 01/25/22 01/25/22 01/26/22 Range/Units 23:16 23:48 00:27 WBC (4.8-10.8) K/ul RBC (3.93-5.22) M/uL Hgb (12.0-16.0) g/dl Hct (34.1-44.9) % MCV (80.0-100.0) fL MCH (25.0-34.0) pg MCHC (32.0-36.0) g/dL RDW Std Deviation (36.4-46.3) fL RDW Coeff of Umair (11.5-14.5) % Plt Count (130-400) K/uL MPV (9.4-12.3) fL Immature Gran % (Auto) % Neut % (Auto) % Lymph % (Auto) % [place] % (Auto) % Eos % (Auto) % Baso % (Auto) % Neut # (Auto) (1.4-6.5) K/uL Lymph # (Auto) (1.2-3.4) K/uL [place] # (Auto) (0.24-0.82) K/uL Eos # (Auto) (0-0.50) K/uL Baso # (Auto) (0-0.2) K/uL Immature Gran # (Auto) (0.00-0.02) K/uL Sodium (136-145) mmol/L Potassium (3.5-5.1) mmol/L Chloride (98-107) mmol/L Carbon Dioxide (21-32) mmol/L Anion Gap (3-11) BUN (6-23) mg/dl Creatinine (0.6-1.2) mg/dl Est Cr Clr Drug Dosing ml/min Est GFR ( Amer) ml/min Est GFR (Non-Af Amer) ml/min BUN/Creatinine Ratio (10-20) Glucose (70-99(Fasting)) mg/dl POC Glucose 64 L* 64 L* 89 (70-99) mg/dl Calcium (8.5-10.1) mg/dl Total Bilirubin (0.2-1.0) mg/dl AST (13-39) U/L ALT (7-52) U/L Alkaline Phosphatase (34-104) U/L Total Protein (6.0-8.3) gm/dl Albumin (3.4-5.0) gm/dl Globulin (2.5-4.0) gm/dl Albumin/Globulin Ratio (0.9-2) Urine Color Urine Appearance (Clear) Urine pH (4.5-7.5) Ur Specific [place] (1.000-1.030) Urine Protein (Negative) Urine Glucose (UA) (Negative) Urine Ketones (Negative) Urine Blood (Negative) Urine Nitrite (Negative) Urine Bilirubin (Negative) Urine Urobilinogen (Negative) Ur Leukocyte Esterase (Negative) Urine WBC (Auto) (0-5) /hpf Urine RBC (Auto) (0-4) /hpf U Hyaline Cast (Auto) (0-5) /lpf U Epithel Cells (Auto) (0-5) /lpf Urine Bacteria (Auto) (Negative) SARS-CoV-2 (PCR) (Negative) Influenza Type A (PCR) (Neg) Influenza Type B (PCR) (Neg) RSV (RT-PCR) (Neg) 01/26/22 Range/Units 00:44 WBC (4.8-10.8) K/ul RBC (3.93-5.22) M/uL Hgb (12.0-16.0) g/dl Hct (34.1-44.9) % MCV (80.0-100.0) fL MCH (25.0-34.0) pg MCHC (32.0-36.0) g/dL RDW Std Deviation (36.4-46.3) fL RDW Coeff of Umair (11.5-14.5) % Plt Count (130-400) K/uL MPV (9.4-12.3) fL Immature Gran % (Auto) % Neut % (Auto) % Lymph % (Auto) % [place] % (Auto) % Eos % (Auto) % Baso % (Auto) % Neut # (Auto) (1.4-6.5) K/uL Lymph # (Auto) (1.2-3.4) K/uL [place] # (Auto) (0.24-0.82) K/uL Eos # (Auto) (0-0.50) K/uL Baso # (Auto) (0-0.2) K/uL Immature Gran # (Auto) (0.00-0.02) K/uL Sodium (136-145) mmol/L Potassium (3.5-5.1) mmol/L Chloride (98-107) mmol/L Carbon Dioxide (21-32) mmol/L Anion Gap (3-11) BUN (6-23) mg/dl Creatinine (0.6-1.2) mg/dl Est Cr Clr Drug Dosing ml/min Est GFR ( Amer) ml/min Est GFR (Non-Af Amer) ml/min BUN/Creatinine Ratio (10-20) Glucose (70-99(Fasting)) mg/dl POC Glucose 102 H (70-99) mg/dl Calcium (8.5-10.1) mg/dl Total Bilirubin (0.2-1.0) mg/dl AST (13-39) U/L ALT (7-52) U/L Alkaline Phosphatase (34-104) U/L Total Protein (6.0-8.3) gm/dl Albumin (3.4-5.0) gm/dl Globulin (2.5-4.0) gm/dl Albumin/Globulin Ratio (0.9-2) Urine Color Urine Appearance (Clear) Urine pH (4.5-7.5) Ur Specific [place] (1.000-1.030) Urine Protein (Negative) Urine Glucose (UA) (Negative) Urine Ketones (Negative) Urine Blood (Negative) Urine Nitrite (Negative) Urine Bilirubin (Negative) Urine Urobilinogen (Negative) Ur Leukocyte Esterase (Negative) Urine WBC (Auto) (0-5) /hpf Urine RBC (Auto) (0-4) /hpf U Hyaline Cast (Auto) (0-5) /lpf U Epithel Cells (Auto) (0-5) /lpf Urine Bacteria (Auto) (Negative) SARS-CoV-2 (PCR) (Negative) Influenza Type A (PCR) (Neg) Influenza Type B (PCR) (Neg) RSV (RT-PCR) (Neg) Administered Medications Enoxaparin Sodium (Enoxaparin Inj 40 Mg/0.4 Ml Syr) 40 mg SQ Q24H [facility] Stop: 02/25/22 08:59 Last Admin: 01/26/22 08:28 Dose: 40 mg Documented By: MERON Famotidine (Famotidine 20 Mg Tab) 20 mg PO BID@0000,1600 [facility] Stop: 02/25/22 02:59 Last Admin: 01/26/22 15:35 Dose: 20 mg Documented By: Admin: 01/26/22 02:50 Dose: 20 mg Documented By: NORY Fluvoxamine Maleate (Fluvoxamine Maleate 50 Mg Tab) 50 mg PO BID [facility] Stop: 02/25/22 01:56 Last Admin: 01/26/22 08:29 Dose: 50 mg Documented By: Admin: 01/26/22 02:50 Dose: 50 mg Documented By: NORY Insulin Aspart (Insulin Aspart Per Unit) 0 units [facility] Stop: 02/25/22 07:29 Last Admin: 01/26/22 12:27 Dose: 1 units Documented By: GIBRAN Co-signed By: LADY Admin: 01/26/22 08:30 Dose: 5 units Documented By: MERON Co-signed By: LEVI Levothyroxine Sodium (Levothyroxine Sodium 88 Mcg Tablet) 88 mcg PO DAILYBB [facility] Stop: 02/25/22 06:29 Last Admin: 01/26/22 05:39 Dose: 88 mcg Documented By: NORY Metoclopramide HCl (Metoclopramide Hcl 10 Mg Tablet) 10 mg PO [facility] Stop: 02/25/22 07:29 Last Admin: 01/26/22 15:34 Dose: 10 mg Documented By: Admin: 01/26/22 11:31 Dose: 10 mg Documented By: Admin: 01/26/22 07:39 Dose: 10 mg Documented By: MERON Ondansetron HCl (Ondansetron Inj 2 Mg/Ml 2 Ml Vial) 4 mg IV Q6H PRN PRN Reason: Nausea Stop: 02/25/22 01:56 Last Admin: 01/26/22 12:56 Dose: 4 mg Documented By: GIBRAN Potassium Chloride (Potassium Chloride Crtab 20 Meq Tabcr) 40 meq PO QAM [facility] Stop: 02/25/22 08:59 Last Admin: 01/26/22 08:29 Dose: 40 meq Documented By: MERON Sucralfate (Sucralfate 1 Gm Tab) 1 gm PO ACHS [facility] Stop: 02/25/22 07:29 Last Admin: 01/26/22 16:02 Dose: 1 gm Documented By: Admin: 01/26/22 11:31 Dose: 1 gm Documented By: Admin: 01/26/22 07:39 Dose: 1 gm Documented By: MERON Ticagrelor (Ticagrelor 90 Mg Tab) 90 mg PO BID@0000,1600 [facility] Stop: 02/25/22 01:56 Last Admin: 01/26/22 15:35 Dose: 90 mg Documented By: Admin: 01/26/22 02:50 Dose: 90 mg Documented By: NORY Discontinued Medications Sodium Chloride (Nss 1000ml) 1,000 mls @ 999 mls/hr IV .Q1H1M ONE Stop: 01/25/22 22:49 Last Infusion: 01/25/22 23:07 Dose: 0 mls/hr Documented By: Admin: 01/25/22 22:06 Dose: 999 mls/hr Documented By: PENNY Ceftriaxone Sodium (Rocephin) 2,000 mg in 70 mls @ 140 mls/hr IV NOW STA Stop: 01/26/22 00:28 Last Infusion: 01/26/22 01:22 Dose: 0 mls/hr Documented By: Admin: 01/26/22 00:48 Dose: 140 mls/hr Documented By: MARTA Insulin Human Regular (Novolin-R Insulin Per Unit Charge) 10 units IV NOW STA Stop: 01/25/22 21:56 Last Admin: 01/25/22 22:06 Dose: 10 units Documented By: PENNY Co-signed By: DINAH Imaging Data Radiologist's Impression: Abdomen/Pelvis CT 01/25/22 22:[address] WITHOUT CONTRAST CT DOSE: 443.15 mGy.cm HISTORY: Acute bilateral flank pain with leukocytosis flank pain, elevated wbc TECHNIQUE: Multiaxial CT images of the abdomen and pelvis were performed without contrast. A dose lowering technique was utilized adhering to the principles of ALARA. COMPARISON STUDY: CT 09/20/2021 FINDINGS: Trace pericardial effusion. Clear lung bases. No pneumatosis or pneumoperitoneum. The unenhanced spleen, moderately atrophic pancreas and adrenal glands are unremarkable. Probable dropped gallstones along the posterior right hepatic lobe. Cholecystectomy. Unremarkable liver. Mild nonspecific bilateral perinephric stranding. 1.6 cm left renal cyst. No renal or ureteral calculi or hydronephrosis. Unremarkable urinary bladder. Unchanged benign-appearing calcified structure within the right hemipelvis. Atherosclerosis of the aorta. No lymphadenopathy. Small duodenal diverticulum. No bowel obstruction or bowel wall thickening. Colonic diverticulosis. Normal appendix. Tiny fat filled ventral abdominal wall hernia, diastases of 1.3 cm. No acute fracture. Mild lumbar levoscoliosis. IMPRESSION: 1. No acute intra-abdominal or intrapelvic abnormality. 2. No urolith or hydronephrosis. 3. Colonic diverticulosis. 4. Additional findings as above. ACT 112: Negative or not required by law. The above report was generated using voice recognition software. It may contain grammatical, syntax or spelling errors. Electronically signed by: Willard Cooper M.D. 01/26/2022 8:23 AM Discharge Plan Visit Data Chief Complaint: Referred by Doctor Stated Complaint: REFERRED BY DOCTOR, IRREGULAR BLOOD SUGAR LEVELS ED Provider: Sean Zaidi Discharge Problem: Hyperglycemia, Leukocytosis, UTI (urinary tract infection) Patient Disposition: Admitted As Inpatient Discharge Instructions Interventions: ED Discharge Assessment Last Done: 01/26/22 01:20
[2022-01-25 23:46] LABS: Influenza A virus by PCR Negative (Neg); Influenza B virus by PCR Negative (Neg); RSV by PCR Negative (Neg); SARS CoV2 RNA(COVID-19) Ceph NEGATIVE (Negative)
[2022-01-25] MEDS ORDERED: cefTRIAXone SODIUM 2,000 MG/70 ML BAG IV STA (23:59)
--- NOTE | 2022-01-26 00:56 | History & Physical Report ---
Date of Service January 26, 2022 Assessment & Plan (1) Hyperglycemia due to type 2 diabetes mellitus: Plan: Hyperglycemia due to diabetes mellitus/medical noncompliance/patient appears to be unaware of association between diet and medications- Was reported as 461 in the outpatient office, it was 359 on laboratories in the ED. She was given 10 units of regular insulin IV by the ED, and glucose dropped to 50. She was supplemented back up to 102. Patient is taking regular Humulin U 500, listed as 10 to 25 units subcu twice daily, which she does not understand how to take Plan for tonight is to hold any of her usual insulin, placed her on Accu-Cheks with Humalog scale, total of her insulin requirements, and determine what type of insulin be best for her long-term. The question is whether the patient is capable of living on her own or rather she should be in assisted living (2) GERD (gastroesophageal reflux disease): Plan: GERD/dysmotility- Continue pantoprazole, and metoclopramide (3) Anxiety: Plan: anxiety with depression- Continue fluvoxamine (4) Depression: (5) CAD (coronary artery disease): Plan: CAD/hypertension/history of coronary artery stent- Continue potassium chloride and Brilinta (6) Hypertension: (7) Hypothyroidism: Plan: Continue levothyroxine 88 mcg daily (8) Drug-induced tremor: Plan: Noted to be an intermittently significant issue right upper extremity (9) Diabetes type 2, uncontrolled: (10) Dyslipidemia: Plan: Continue atorvastatin 80 mg daily (11) S/P coronary artery stent placement: History of Present Illness Chief Complaint: The patient is referred to the emergency department by her PCP, due to a blood sugar of 461 in the outpatient office today. Primary Care Provider: Jc Zaman DO The patient is a 61-year-old female with a past medical history including diabetes mellitus, noncompliance, GERD, delusional disorder, hyponatremia, severe protein calorie malnutrition, early satiety, depression with anxiety, B12 deficiency, D deficiency, psoriasis, drug-induced tremor, tobacco abuse, dyslipidemia, diabetes mellitus uncontrolled, NSTEMI, CAD, and failure to thrive in adult.. The patient does not appear to understand the use of her Insulin, and appropriate diet for diabetic. She lives alone at home, and reports that she does not have any help with her diabetic needs Allergies Allergy/AdvReac Type Severity Reaction Status Date / Time dulaglutide [From [facility]] AdvReac Intermediate stomach Verified 01/25/22 20:23 pain albiglutide [From [facility]] AdvReac Unknown CAN'T Verified 01/25/22 20:23 REMEMBER Home Medications Medication Instructions Recorded Confirmed Type nystatin 100,000 unit/gram topical 1 applic topical BID PRN Skin 08/20/21 01/25/22 History powder Irritation famotidine 20 mg tablet 20 mg PO BID #180 tabs 09/05/21 01/25/22 Rx ticagrelor 90 mg tablet (Brilinta) 90 mg PO BID 90 days #180 tabs 09/05/21 01/25/22 Rx pantoprazole 40 mg tablet,delayed 40 mg PO QPM 09/06/21 01/25/22 History release pen needle, diabetic 32 gauge x #200 ea 09/13/21 01/25/22 Rx 5/32" (BD Ultra-Fine [place] Pen Needle) fluvoxamine 50 mg tablet 50 mg PO BID #60 tabs 09/15/21 01/25/22 Rx atorvastatin 80 mg tablet 80 mg PO QPM #90 tabs 10/03/21 01/25/22 Rx potassium chloride 20 mEq 40 meq PO QAM #180 tabs 10/03/21 01/25/22 Rx tablet,extended release(part/cryst) sucralfate 1 gram tablet 1 g PO ACHS 30 days #120 tabs 10/03/21 01/25/22 Rx meclizine 25 mg tablet 25 mg PO TID PRN dizziness 10/11/21 01/25/22 History blood-glucose meter (Prodigy 10/15/21 01/25/22 History Autocode Meter kit) levothyroxine 88 mcg tablet 88 mcg PO DAILY #30 tabs 10/15/21 01/25/22 Rx insulin regular hum U-500 conc 500 10 - 25 unit subcut BID 11/01/21 01/25/22 His tory unit/mL(3 mL) subcut pen (Humulin R U-500 (Conc) Insulin Kwikpen) metoclopramide HCl 10 mg tablet 10 mg PO ACHS #120 tabs 11/21/21 01/25/22 Rx hydroxyzine HCl 10 mg tablet 5 mg PO TID PRN anxiety #30 tabs 01/17/22 01/25/22 Rx acetaminophen 500 mg tablet 1,000 mg PO TID PRN Pain 01/25/22 01/25/22 History (Tylenol Extra Strength) Past Med/Surg History Medical History Albuminuria Anxiety CAD (coronary artery disease) No remaining occlusive disease after 2 LAD drug eluting stents 10/22/20. Follows with Dr. Harris Chronic headaches Depression Diabetes type 2, uncontrolled IDDM Diabetic nephropathy associated with type 2 diabetes mellitus Dyslipidemia Hypertension Hypokalemia Hypomagnesemia Hypothyroidism NSTEMI (non-ST elevated myocardial infarction) 10/22/2020 s/p 2 CHANTAL Obesity Osteoarthritis Tobacco abuse Vulvitis Surgical History History of cardiac catheterization 10/22/2020 Dominant: Right Left Main (% Stenosis): Normal LAD (% Stenosis): Proximal (99) and Mid (75) Circumflex (% Stenosis): Normal (luminal irregularities) RCA (% Stenosis): Normal (Luminal irregularities) 2 CHANTAL to LAD History of cholecystectomy History of dental surgery History of tonsillectomy S/P coronary artery stent placement 2 CHANTAL to LAD 10/22/2020 Family History Unknown Diabetes Thyroid disorder Father Diabetes Other No family history of adverse response to anesthesia Denies family history of Ovarian cancer Prostate cancer Breast cancer Colorectal cancer Uterine cancer Social History Smoking Status: Current every day smoker Tobacco Type: Cigarettes packs per day: 0.5; Cigarettes Per Day: 10 cigs; Second Hand Exposure: Yes; Do You Dip or Chew Tobacco: No; Tobacco Cessation Education Requested by Patient: No Hx Alcohol Use: No Hx Substance Use: No Preferred Language: Togolese Communication Ability: Effective Visual Impairment: No Limitations Med Surg Rn Required: No Beliefs That Will Affect Care: None marital status: Single Current Living Situation: Alone current occupational status: disabled How many Children do You have: 0 Other Information That Helps Us Care for You: No (lives alone) Feels Safe at Home: Yes Safety Concerns: Feels Safe At This Time Safety Concerns Comment: Gets nervous sometimes because she lives alone, gets shaky from anxiety caffeine: Yes Dental Care, Regularly: No Physical Activity Frequency: Does not Exercise Seatbelt Use: always Sunscreen Use: No Assistive Devices: Glasses Review of Systems Review of Systems: The patient denies chest pain, palpitations, shortness of breath, dyspnea on exertion, cough, lower extremity swelling, sore throat, fevers, chills, sweats, weight change, fatigue, nausea, vomiting, diarrhea , constipation, abdominal pain, pelvic pain, blood in urine or stool, dysuria, urinary frequency or urgency, loss of consciousness, rash, abnormal bruising or bleeding, imbalance, focal or generalized weakness, numbness or tingling in arms or legs, generalized arthralgias or myalgias, back or neck pain, or night sweats. The review of systems is otherwise negative other than for that already noted above, and at least 10 systems have been reviewed. Physical Exam Physical Exam: The patient is awake, alert and oriented 3, well developed and well nourished, normocephalic and atraumatic, lying in bed and in no acute distress. HEENT--PERRL, EOMI, mucous membranes and oropharynx dry. Neck--supple. No JVD. No bruits. Thyroid normal, trachea midline, no adenopathy. Heart--normal S1 and S2. No murmurs, rubs or gallops. Lungs--clear bilaterally, no respiratory distress, no accessory muscle use. Abdomen--normal bowel sounds and soft. Nontender. Nondistended, no hernias or masses, no organomegaly. Extremities--no cyanosis or clubbing. No edema. There are good distal pulses b/l. Dermatologic--normal skin turgor, normal color, no abnormal lymph nodes, no rash. Neurologic--cranial nerves II through XII grossly intact. Rheumatologic--normal range of motion. Psychiatric--normal affect. Results & Data Results & Data ([facility]) Vital Signs (Past 12 Hours) Vital Signs Temp Pulse Pulse Resp BP BP Pulse Ox 01/26/22 00:28 65 18 99/62 L 99 01/25/22 16:18 36.6 C 122 H 20 113/80 98 O2 Del Method 01/26/22 00:28 Room Air 01/25/22 16:18 Laboratory Results Laboratory Results WBC 15.77 K/ul (4.8-10.8) H 01/25/22 17:54 RBC 5.01 M/uL (3.93-5.22) 01/25/22 17:54 Hgb 14.4 g/dl (12.0-16.0) 01/25/22 17:54 Hct 44.0 % (34.1-44.9) 01/25/22 17:54 MCV 87.8 fL (80.0-100.0) 01/25/22 17:54 MCH 28.7 pg (25.0-34.0) 01/25/22 17:54 MCHC 32.7 g/dL (32.0-36.0) 01/25/22 17:54 RDW Std Deviation 40.7 fL (36.4-46.3) 01/25/22 17:54 RDW Coeff of Umair 12.7 % (11.5-14.5) 01/25/22 17:54 Plt Count 354 K/uL (130-400) 01/25/22 17:54 MPV 11.4 fL (9.4-12.3) 01/25/22 17:54 Immature Gran % (Auto) 0.4 % 01/25/22 17:54 Neut % (Auto) 83.4 % 01/25/22 17:54 Lymph % (Auto) 11.7 % 01/25/22 17:54 [place] % (Auto) 4.1 % 01/25/22 17:54 Eos % (Auto) 0.1 % 01/25/22 17:54 Baso % (Auto) 0.3 % 01/25/22 17:54 Neut # (Auto) 13.16 K/uL (1.4-6.5) H 01/25/22 17:54 Lymph # (Auto) 1.84 K/uL (1.2-3.4) 01/25/22 17:54 [place] # (Auto) 0.65 K/uL (0.24-0.82) 01/25/22 17:54 Eos # (Auto) 0.01 K/uL (0-0.50) 01/25/22 17:54 Baso # (Auto) 0.04 K/uL (0-0.2) 01/25/22 17:54 Immature Gran # (Auto) 0.07 K/uL (0.00-0.02) H 01/25/22 17:54 Sodium 130 mmol/L (136-145) L 01/25/22 17:54 Potassium 3.8 mmol/L (3.5-5.1) 01/25/22 17:54 Chloride 96 mmol/L (98-107) L 01/25/22 17:54 Carbon Dioxide 22 mmol/L (21-32) 01/25/22 17:54 Anion Gap 12 (3-11) H 01/25/22 17:54 BUN 6 mg/dl (6-23) 01/25/22 17:54 Creatinine 1.02 mg/dl (0.6-1.2) 01/25/22 17:54 Est Cr Clr Drug Dosing 49.9 ml/min 01/25/22 17:54 Est GFR ( Amer) 68.3 ml/min 01/25/22 17:54 Est GFR (Non-Af Amer) 58.9 ml/min 01/25/22 17:54 BUN/Creatinine Ratio 5.9 (10-20) L 01/25/22 17:54 Glucose 359 mg/dl (70-99(Fasting)) H* 01/25/22 17:54 POC Glucose 209 mg/dl (70-99) H 01/26/22 01:44 Calcium 8.1 mg/dl (8.5-10.1) L 01/25/22 17:54 Total Bilirubin 0.3 mg/dl (0.2-1.0) 01/25/22 17:54 AST 30 U/L (13-39) 01/25/22 17:54 ALT 19 U/L (7-52) 01/25/22 17:54 Alkaline Phosphatase 203 U/L (34-104) H 01/25/22 17:54 Total Protein 7.0 gm/dl (6.0-8.3) 01/25/22 17:54 Albumin 3.3 gm/dl (3.4-5.0) L 01/25/22 17:54 Globulin 3.7 gm/dl (2.5-4.0) 01/25/22 17:54 Albumin/Globulin Ratio 0.9 (0.9-2) 01/25/22 17:54 Urine Color Yellow 01/25/22 17:53 Urine Appearance Cloudy (Clear) A 01/25/22 17:53 Urine pH 5.0 (4.5-7.5) 01/25/22 17:53 Ur Specific [place] 1.026 (1.000-1.030) 01/25/22 17:53 Urine Protein Trace (Negative) H 01/25/22 17:53 Urine Glucose (UA) 3+ (Negative) H 01/25/22 17:53 Urine Ketones Negative (Negative) 01/25/22 17:53 Urine Blood Negative (Negative) 01/25/22 17:53 Urine Nitrite Negative (Negative) 01/25/22 17:53 Urine Bilirubin Negative (Negative) 01/25/22 17:53 Urine Urobilinogen Negative (Negative) 01/25/22 17:53 Ur Leukocyte Esterase Negative (Negative) 01/25/22 17:53 Urine WBC (Auto) 5-10 /hpf (0-5) H 01/25/22 17:53 Urine RBC (Auto) 0-4 /hpf (0-4) 01/25/22 17:53 U Hyaline Cast (Auto) 5-10 /lpf (0-5) H 01/25/22 17:53 U Epithel Cells (Auto) >30 /lpf (0-5) H 01/25/22 17:53 Urine Bacteria (Auto) 1+ (Negative) H 01/25/22 17:53 SARS-CoV-2 (PCR) NEGATIVE (Negative) 01/25/22 22:54 Influenza Type A (PCR) Negative (Neg) 01/25/22 22:54 Influenza Type B (PCR) Negative (Neg) 01/25/22 22:54 RSV (RT-PCR) Negative (Neg) 01/25/22 22:54 Code Status & VTE Plan Code Status Full code VTE Prophylaxis Plan VTE Prophylaxis will be ordered: Yes (1) CAD (coronary artery disease) Coronary Disease-Associated Artery/Lesion type: [place] artery [place] vs. transplanted heart: [place] heart Associated angina: unspecified whether angina present Qualified Code(s): I25.10 - Atherosclerotic heart disease of [place] coronary artery without angina pectoris
[2022-01-26] MEDS ORDERED: GLUCOSE 40% GEL 15 GM TUBE PO PRN (01:57)
[2022-01-26] MEDS ORDERED: ACETAMINOPHEN 500 MG TAB PO PRN (01:57)
[2022-01-26] MEDS ORDERED: MECLIZINE HCL 25 MG TAB PO PRN (01:57)
[2022-01-26] MEDS ORDERED: ONDANSETRON INJ 2 MG/ML 2 ML VIAL IV PRN (01:57)
[2022-01-26] MEDS ORDERED: CARBOHYDRATES FOR HYPOGLYCEMIA PO PRN (01:57)
[2022-01-26] MEDS ORDERED: DEXTROSE 50% 50 ML SYRINGE IV PRN (01:57)
[2022-01-26] MEDS ORDERED: GLUCAGON FOR INJ 1 MG VIAL SQ PRN (01:57)
[2022-01-26] MEDS ORDERED: GLUCOSE 10 TAB/TUBE PO PRN (01:57)
[2022-01-26] MEDS: fluvoxaMINE MALEATE 50 MG TAB PO SCH ×3 (02:50→20:16)
[2022-01-26] MEDS: TICAGRELOR 90 MG TAB PO SCH ×3 (02:50→23:32)
[2022-01-26] MEDS: FAMOTIDINE 20 MG TAB PO SCH ×3 (02:50→23:32)
--- NOTE | 2022-01-26 04:30 | Billing Data ---
Date of Service January 26, 2022 Coding Level of Care Code INT OBSERVATION CARE 70M LVL 3
[2022-01-26] MEDS: LEVOTHYROXINE SODIUM 88 MCG TABLET PO SCH (05:39)
[2022-01-26 06:42] LABS: Basophils # (auto) 0.02 K/uL (0-0.2); Basophils % (auto) 0.2 %; Eosinophils # (auto) 0.14 K/uL (0-0.50); Eosinophils % (auto) 1.2 %; Hemoglobin 11.8 g/dl (12.0-16.0); Immature Granulocytes # (auto) 0.03 K/uL (0.00-0.02); Immature Granulocytes % (auto) 0.2 %; Lymphocytes # (auto) 3.61 K/uL (1.2-3.4); Lymphocytes % (auto) 29.7 %; Mean Corpuscular Hemoglobin 28.8 pg (25.0-34.0); Mean Corpuscular Hgb Conc 33.7 g/dL (32.0-36.0); Mean Corpuscular Volume 85.4 fL (80.0-100.0); Mean Platelet Volume 11.1 fL (9.4-12.3); Monocytes # (auto) 0.78 K/uL (0.24-0.82); Monocytes % (auto) 6.4 %; Neutrophils # (auto) 7.58 K/uL (1.4-6.5); Neutrophils % (auto) 62.3 %; Platelet Count 232 K/uL (130-400); RDW Coefficient of Variation 12.5 % (11.5-14.5); RDW Standard Deviation 38.9 fL (36.4-46.3); White Blood Count 12.16 K/ul (4.8-10.8)
[2022-01-26 07:10] LABS: Albumin Globulin Ratio 0.9 (0.9-2); Albumin Level 2.4 gm/dl (3.4-5.0); Bilirubin,Total 0.2 mg/dl (0.2-1.0); Calcium 7.2 mg/dl (8.5-10.1); Creatinine Clr Calc Pharmacy 60.1 ml/min; Est GFR (African American) 83.9 ml/min; Est GFR (Non-African American) 72.4 ml/min; Globulin 2.6 gm/dl (2.5-4.0); Potassium 3.9 mmol/L (3.5-5.1)
[2022-01-26] MEDS: SUCRALFATE 1 GM TAB PO SCH ×4 (07:39→20:17)
[2022-01-26] MEDS: METOCLOPRAMIDE HCL 10 MG TABLET PO SCH ×4 (07:39→20:17)
[2022-01-26 08:01] LABS: Estimated Average Glucose 186 mg/dl; Hemoglobin A1C 8.1 % (4.5-5.6)
--- NOTE | 2022-01-26 08:25 | CT Scan Report ---
ABDOMEN AND PELVIS CT WITHOUT CONTRAST CT DOSE: 443.15 mGy.cm HISTORY: Acute bilateral flank pain with leukocytosis flank pain, elevated wbc TECHNIQUE: Multiaxial CT images of the abdomen and pelvis were performed without contrast. A dose lo wering technique was utilized adhering to the principles of ALARA. COMPARISON STUDY: CT 09/20/2021 FINDINGS: Trace pericardial effusion. Clear lung bases. No pneumatosis or pneumoperitoneum. The unenh anced spleen, moderately atrophic pancreas and adrenal glands are unremarkable. Probable dropped gall stones along the posterior right hepatic lobe. Cholecystectomy. Unremarkable liver. Mild nonspecific bilateral perinephric stranding. 1.6 cm left renal cyst. No renal or ureteral calcul i or hydronephrosis. Unremarkable urinary bladder. Unchanged benign-appearing calcified structure wit hin the right hemipelvis. Atherosclerosis of the aorta. No lymphadenopathy. Small duodenal diverticulum. No bowel obstruction or bowel wall thickening. Colonic diverticulosis. N ormal appendix. Tiny fat filled ventral abdominal wall hernia, diastases of 1.3 cm. No acute fracture . Mild lumbar levoscoliosis. IMPRESSION: 1. No acute intra-abdominal or intrapelvic abnormality. 2. No urolith or hydronephrosis. 3. Colonic diverticulosis. 4. Additional findings as above. ACT 112: Negative or not required by law. The above report was generated using voice recognition software. It may contain grammatical, syntax o r spelling errors. Electronically signed by: Willard Cooper M.D. 01/26/2022 8:23 AM
[2022-01-26] MEDS: ENOXAPARIN INJ 40 MG/0.4 ML SYR SQ SCH (08:28)
[2022-01-26] MEDS: POTASSIUM CHLORIDE CRTAB 20 MEQ TABCR PO SCH (08:29)
[2022-01-26] MEDS: INSULIN ASPART PER UNIT SC SCH ×4 (08:30→20:18)
[2022-01-26] MEDS ORDERED: PHARMACY GLYCEMIC MGMT CONSULT PRN (14:55)
--- NOTE | 2022-01-26 15:06 | Hospitalist Progress Note ---
Date of Service January 26, 2022 Assessment & Plan (1) Hyperglycemia due to type 2 diabetes mellitus: Plan: Hyperglycemia due to diabetes mellitus/medical noncompliance/patient appears to be unaware of association between diet and medications- Initially followed by Dr Massey, however, due to patients non compliance and difficulty following instructions, they signed off At home,Patient is taking regular Humulin U 500, listed as 10 to 25 units subcu twice daily, which she does not understand how to take She presents to the hospital with elevated blood glucose During my interaction with her, she insists she knows how to monitor glucose and administer insulin Will consult diabetes eduaction Patient lives alone and may need placement Will keep keep on sliding scale for now and Glargine 15 units morning and Evening (2) Anxiety: Plan: anxiety with depression- Continue fluvoxamine (3) CAD (coronary artery disease): Plan: CAD/hypertension/history of coronary artery stent- Continue potassium chloride and Brilinta (4) Hypertension: Plan: BP is under good control (5) Depression: (6) GERD (gastroesophageal reflux disease): Plan: GERD/dysmotility- Continue pantoprazole, and metoclopramide (7) Hypothyroidism: Plan: Continue levothyroxine 88 mcg daily (8) Drug-induced tremor: Plan: Noted to be an intermittently significant issue right upper extremity (9) Diabetes type 2, uncontrolled: (10) Dyslipidemia: Plan: Continue atorvastatin 80 mg daily (11) S/P coronary artery stent placement: Plan continue hospitalization, patient may need placement, she currently lives alone, but struggling to follow instructions regarding blood glucose mgt Admission and Anticipated Discharge Date Admission Date: January 26, 2022 Subjective patient seen and examined, no new complaints Review of Systems Review of Systems: All systems reviewed are negative, apart from the ones contained in the history. Physical Exam Physical Exam: The patient is awake, alert and oriented 3, well developed and well nourished, normocephalic and atraumatic, lying in bed and in no acute distress. HEENT--PERRL, EOMI, mucous membranes and oropharynx mildly dry Neck--supple. No JVD. No bruits. Thyroid normal, trachea midline, no adenopathy. Heart--normal S1 and S2. No murmurs, rubs or gallops. Lungs--clear bilaterally, no respiratory distress, no accessory muscle use. Abdomen--normal bowel sounds and soft. Mild epigastric and left sided abdominal pain Extremities--no cyanosis or clubbing. No edema. Dermatologic--normal skin turgor, normal color, no abnormal lymph nodes, no rash. Neurologic--cranial nerves II through XII grossly intact. Rheumatologic--normal range of motion. Psychiatric--normal affect. Results & Data Results & Data ([facility]) Vital Signs (Past 12 Hours) Vital Signs Temp Pulse Pulse Resp BP BP Pulse Ox 01/26/22 11:25 98.1 F 97 H 20 95/60 L 97 01/26/22 08:00 50 L 01/26/22 07:56 98.1 F 57 L 18 96/67 L 91/57 L 99 O2 Del Method 01/26/22 11:25 Room Air 01/26/22 08:00 01/26/22 07:56 Room Air PG Care Time/CCT Total # of Minutes Spent Total Time Spent with Patient: Total time spent is greater than 50% in coordination of care (as documented) at patient's floor/unit and/or counseling patient: Coding Level of Care Code 47892 Subseq Hosp Care Lvl 2 Diagnoses Hyperglycemia due to type 2 diabetes mellitus E11.65 Anxiety F41.9 CAD (coronary artery disease) I25.10 Coronary Disease-Associated Artery/Lesion type: [place] artery [place] vs. transplanted heart: [place] heart Associated angina: unspecified whether angina present Hypertension I10 Depression F32.9 GERD (gastroesophageal reflux disease) K21.9 Hypothyroidism E03.9 Drug-induced tremor G25.1 Diabetes type 2, uncontrolled E11.65 Dyslipidemia E78.5 S/P coronary artery stent placement Z95.5 Time Spent (min) 35 (1) CAD (coronary artery disease) Coronary Disease-Associated Artery/Lesion type: [place] artery [place] vs. t ransplanted heart: [place] heart Associated angina: unspecified whether angina present Qualified Code(s): I25.10 - Atherosclerotic heart disease of [place] coronary artery without angina pectoris
--- NOTE | 2022-01-26 15:35 | Pharmacy Report ---
Pharmacy Glycemic Short Note 2 - Date of Service January 26, 2022 - Glycemic Short BSG Results (Last 24 hours): 01/25/22 01/25/22 01/25/22 16:21 17:54 23:14 Glucose 359 H* POC Glucose 448 H* 58 L* 01/25/22 01/25/22 01/26/22 23:16 23:48 00:27 Glucose POC Glucose 64 L* 64 L* 89 01/26/22 01/26/22 01/26/22 00:44 01:44 06:17 Glucose 176 H POC Glucose 102 H 209 H 01/26/22 01/26/22 07:47 11:59 Glucose POC Glucose 182 H 135 H OUTPATIENT ANTIDIABETIC REGIMEN: * U-500 insulin: 10 units at 3pm, 5 units at 12am ASSESSMENT: * 61 year old female admitted with Hyperglycemia due to DM/noncompliance/patient appears to be unaware of association between diet and medications. * Initially followed by Dr Massey, however, due to patients non compliance and difficulty following instructions, they signed off. * Per hospitalist patient is taking regular Humulin U 500, listed as 10 to 25 units SQ twice daily, which she does not understand how to take, med rec listed different dosing of 10 units and 5 units. * CDE Consulted, known from previous admissions that patient is extremely fearful of hypoglycemia. Last admission in November patient was sufficiently m anaged on ~15 units basal and CF/CR ~30/10, will start similarly and follow and adjust as needed to reach goal BSG and avoid hypoglycemia. PLAN FOR INPATIENT GLYCEMIC CONTROL: * Hold outpatient U500 insulin * Basal insulin * Lantus SQ HS, 10 units for BSG < 180, 12 units for BSG 180 or greater * Bolus insulin * NovoLog per scale ACHS or Q6hrs while NPO * Goal Range: Low 120 mg/dL - High 160 mg/dL - higher goal range for patient preference * Correction Factor: 30 mg/dL/unit * Nutritional / Prandial insulin per carb ratio of 1 unit per 10 grams CHO consumed
[2022-01-26] MEDS ORDERED: LANTUS PER UNIT CHARGE SQ ONE (17:00)
[2022-01-26] MEDS: PANTOprazole 40 MG TAB PO SCH (20:16)
[2022-01-26] MEDS: hydrOXYzine HCl 10 MG TAB PO PRN (20:16)
[2022-01-26] MEDS: ATORVASTATIN 40 MG TAB PO SCH (20:17)
[2022-01-27] MEDS: LEVOTHYROXINE SODIUM 88 MCG TABLET PO SCH (05:29)
[2022-01-27] MEDS: METOCLOPRAMIDE HCL 10 MG TABLET PO SCH ×4 (07:09→19:47)
[2022-01-27] MEDS: SUCRALFATE 1 GM TAB PO SCH ×4 (07:09→19:47)
[2022-01-27 07:31] LABS: Basophils # (auto) 0.04 K/uL (0-0.2); Basophils % (auto) 0.5 %; Eosinophils # (auto) 0.25 K/uL (0-0.50); Eosinophils % (auto) 2.9 %; Hematocrit (blood only) 34.8 % (34.1-44.9); Hemoglobin 11.7 g/dl (12.0-16.0); Immature Granulocytes # (auto) 0.03 K/uL (0.00-0.02); Immature Granulocytes % (auto) 0.3 %; Lymphocytes # (auto) 2.39 K/uL (1.2-3.4); Lymphocytes % (auto) 27.8 %; Mean Corpuscular Hemoglobin 28.9 pg (25.0-34.0); Mean Corpuscular Hgb Conc 33.6 g/dL (32.0-36.0); Mean Corpuscular Volume 85.9 fL (80.0-100.0); Mean Platelet Volume 11.4 fL (9.4-12.3); Monocytes # (auto) 0.65 K/uL (0.24-0.82); Monocytes % (auto) 7.6 %; Neutrophils # (auto) 5.23 K/uL (1.4-6.5); Neutrophils % (auto) 60.9 %; Platelet Count 228 K/uL (130-400); RDW Coefficient of Variation 12.8 % (11.5-14.5); Red Blood Count 4.05 M/uL (3.93-5.22); White Blood Count 8.59 K/ul (4.8-10.8)
[2022-01-27] MEDS: fluvoxaMINE MALEATE 50 MG TAB PO SCH ×2 (08:04→19:47)
[2022-01-27] MEDS: POTASSIUM CHLORIDE CRTAB 20 MEQ TABCR PO SCH (08:04)
[2022-01-27] MEDS: ENOXAPARIN INJ 40 MG/0.4 ML SYR SQ SCH (08:05)
[2022-01-27 08:06] LABS: Albumin Globulin Ratio 0.9 (0.9-2); Albumin Level 2.4 gm/dl (3.4-5.0); Bilirubin,Total 0.3 mg/dl (0.2-1.0); Calcium 7.8 mg/dl (8.5-10.1); Creatinine Clr Calc Pharmacy 67.5 ml/min; Est GFR (African American) 94.4 ml/min; Est GFR (Non-African American) 81.5 ml/min; Globulin 2.7 gm/dl (2.5-4.0); Magnesium 1.3 mg/dl (1.7-2.4); Potassium 4.7 mmol/L (3.5-5.1); Total Protein 5.1 gm/dl (6.0-8.3)
[2022-01-27] MEDS: INSULIN ASPART PER UNIT SC SCH ×4 (08:17→21:26)
[2022-01-27] MEDS: hydrOXYzine HCl 10 MG TAB PO PRN ×2 (12:17→19:47)
--- NOTE | 2022-01-27 13:22 | Hospitalist Progress Note ---
Date of Service January 27, 2022 Assessment & Plan (1) Hyperglycemia due to type 2 diabetes mellitus: Plan: -Patient presents with Hyperglycemia due to diabetes mellitus/medical noncompliance/patient appears to be unaware of association between diet and medications- -Initially followed by Dr Massey, however, due to patients non compliance and difficulty following instructions, they signed off -At home,Patient is taking regular Humulin U 500, listed as 10 to 25 units subcu twice daily, which she does not understand how to take -She presents to the hospital with elevated blood glucose -During my interaction with her, she insists she knows how to monitor glucose and administer insulin -Diabetes education worked with her and determined that she can satisfactorily monitor her glucose and inject Insulin. -However, the problem is that the patient lives alone and unable to cater for herself in terms of grocery shopping. At times she only has cereal at home. When that happenns, she adjusts her insulin dose to a lower dose, leading to episodes of hyperglycemia. -Although, patient initially resisted, she is now more amenable to home health. She dose not want SNF placement -Will keep keep on sliding scale for now and Glargine 15 units morning and Evening -Discharge home when home health is arranged (2) Anxiety: Plan: anxiety with depression- Continue fluvoxamine (3) CAD (coronary artery disease): Plan: CAD/hypertension/history of coronary artery stent- Continue potassium chloride and Brilinta (4) Hypertension: Plan: BP is under good control (5) Depression: (6) GERD (gastroesophageal reflux disease): Plan: GERD/dysmotility- Continue pantoprazole, and metoclopramide (7) Hypothyroidism: Plan: Continue levothyroxine 88 mcg daily (8) Drug-induced tremor: Plan: Noted to be an intermittently significant issue right upper extremity (9) Diabetes type 2, uncontrolled: (10) Dyslipidemia: Plan: Continue atorvastatin 80 mg daily (11) S/P coronary artery stent placement: Plan she currently lives alone, but struggling to follow instructions regarding blood glucose mgt Discharge when home health is arranged Admission and Anticipated Discharge Date Admission Date: January 26, 2022 Subjective patient seen and examined, no new complaints Review of Systems Review of Systems: All systems reviewed are negative, apart from the ones contained in the history. Physical Exam Physical Exam: The patient is awake, alert and oriented 3, well developed and well nourished, normocephalic and atraumatic, lying in bed and in no acute distress. HEENT--PERRL, EOMI, mucous membranes and oropharynx mildly dry Neck--supple. No JVD. No bruits. Thyroid normal, trachea midline, no adenopathy. Heart--normal S1 and S2. No murmurs, rubs or gallops. Lungs--clear bilaterally, no respiratory distress, no accessory muscle use. Abdomen--normal bowel sounds and soft. Mild epigastric and left sided abdominal pain Extremities--no cyanosis or clubbing. No edema. Dermatologic--normal skin turgor, normal color, no abnormal lymph nodes, no rash. Neurologic--cranial nerves II through XII grossly intact. Rheumatologic--normal range of motion. Psychiatric--normal affect. Results & Data Results & Data ([facility]) Vital Signs (Past 12 Hours) Vital Signs Temp Pulse Pulse Resp BP Pulse Ox O2 Del Method 01/27/22 11:44 98.1 F 60 18 96/64 L 97 Room Air 01/27/22 06:03 51 L 01/27/22 09:10 Room Air 01/27/22 07:55 97.9 F 64 18 101/65 100 Room Air 01/27/22 03:05 98.1 F 57 L 20 114/77 99 Room Air PG Care Time/CCT Total # of Minutes Spent Total Time Spent with Patient: Total time spent is greater than 50% in coordination of care (as documented) at patient's floor/unit and/or counseling patient: Coding Level of Care Code 71194 Subseq Hosp Care Lvl 2 Diagnoses Hyperglycemia due to type 2 diabetes mellitus E11.65 Anxiety F41.9 CAD (coronary artery disease) I25.10 Coronary Disease-Associated Artery/Lesion type: [place] artery [place] vs. transplanted heart: [place] heart Associated angina: unspecified whether angina present Hypertension I10 Depression F32.9 GERD (gastroesophageal reflux disease) K21.9 Hypothyroidism E03.9 Drug-induced tremor G25.1 Diabetes type 2, uncontrolled E11.65 Dyslipidemia E78.5 S/P coronary artery stent placement Z95.5 Time Spent (min) 35 (1) CAD (coronary artery disease) Coronary Disease-Associated Artery/Lesion type: [place] artery [place] vs. transplanted heart: [place] heart Associated angina: unspecified whether angina present Qualified Code(s): I25.10 - Atherosclerotic heart disease of [place] coronary artery without angina pectoris
[2022-01-27] MEDS: TICAGRELOR 90 MG TAB PO SCH (15:48)
[2022-01-27] MEDS: FAMOTIDINE 20 MG TAB PO SCH (15:48)
[2022-01-27] MEDS: PANTOprazole 40 MG TAB PO SCH (19:47)
[2022-01-27] MEDS: ATORVASTATIN 40 MG TAB PO SCH (19:47)
[2022-01-27] MEDS: LANTUS PER UNIT CHARGE SQ SCH (21:26)
[2022-01-28] MEDS: TICAGRELOR 90 MG TAB PO SCH ×3 (01:27→23:07)
[2022-01-28] MEDS: FAMOTIDINE 20 MG TAB PO SCH ×3 (01:27→23:07)
--- NOTE | 2022-01-28 05:40 | Electrocardiogram Report ---
Test Reason : Blood Pressure : / mmHG Vent. Rate : 059 BPM Atrial Rate : 059 BPM P-R Int : 128 ms QRS Dur : 068 ms QT Int : 450 ms P-R-T Axes : 028 036 164 degrees QTc Int : 445 ms Poor data quality, interpretation may be adversely affected Sinus bradycardia Low voltage QRS T wave abnormality, consider inferior ischemia T wave abnormality, consider anterolateral ischemia Abnormal ECG When compared with ECG of 22-NOV-2021 09:58, No significant change was found Confirmed by Jose R Flores ([id number]) on 01/28/2022 5:40:45 AM Referred By: Jc Zaman Confirmed By:Jose R Flores
[2022-01-28] MEDS: LEVOTHYROXINE SODIUM 88 MCG TABLET PO SCH (06:15)
[2022-01-28 07:37] LABS: Basophils # (auto) 0.03 K/uL (0-0.2); Basophils % (auto) 0.4 %; Eosinophils # (auto) 0.24 K/uL (0-0.50); Eosinophils % (auto) 2.9 %; Hematocrit (blood only) 35.2 % (34.1-44.9); Hemoglobin 11.6 g/dl (12.0-16.0); Immature Granulocytes # (auto) 0.03 K/uL (0.00-0.02); Immature Granulocytes % (auto) 0.4 %; Lymphocytes # (auto) 2.28 K/uL (1.2-3.4); Lymphocytes % (auto) 27.7 %; Mean Corpuscular Hemoglobin 28.6 pg (25.0-34.0); Mean Corpuscular Volume 86.7 fL (80.0-100.0); Mean Platelet Volume 11.4 fL (9.4-12.3); Monocytes # (auto) 0.54 K/uL (0.24-0.82); Monocytes % (auto) 6.6 %; Neutrophils # (auto) 5.12 K/uL (1.4-6.5); Platelet Count 225 K/uL (130-400); RDW Coefficient of Variation 12.9 % (11.5-14.5); RDW Standard Deviation 40.5 fL (36.4-46.3); Red Blood Count 4.06 M/uL (3.93-5.22); White Blood Count 8.24 K/ul (4.8-10.8)
[2022-01-28 08:05] LABS: Albumin Globulin Ratio 0.9 (0.9-2); Albumin Level 2.4 gm/dl (3.4-5.0); BUN Creatinine Ratio 7.1 (10-20); Bilirubin,Total 0.2 mg/dl (0.2-1.0); Calcium 7.9 mg/dl (8.5-10.1); Est GFR (Non-African American) 52.6 ml/min; Globulin 2.7 gm/dl (2.5-4.0); Magnesium 1.3 mg/dl (1.7-2.4); Potassium 4.5 mmol/L (3.5-5.1); Total Protein 5.1 gm/dl (6.0-8.3)
[2022-01-28] MEDS: hydrOXYzine HCl 10 MG TAB PO PRN ×2 (09:12→20:42)
[2022-01-28] MEDS: METOCLOPRAMIDE HCL 10 MG TABLET PO SCH ×4 (09:14→20:41)
[2022-01-28] MEDS: fluvoxaMINE MALEATE 50 MG TAB PO SCH ×2 (09:14→20:41)
[2022-01-28] MEDS: POTASSIUM CHLORIDE CRTAB 20 MEQ TABCR PO SCH (09:14)
[2022-01-28] MEDS: ENOXAPARIN INJ 40 MG/0.4 ML SYR SQ SCH (09:14)
[2022-01-28] MEDS: SUCRALFATE 1 GM TAB PO SCH ×4 (09:14→20:40)
[2022-01-28] MEDS: INSULIN ASPART PER UNIT SC SCH ×4 (09:46→21:34)
--- NOTE | 2022-01-28 19:00 | Hospitalist Progress Note ---
Date of Service January 28, 2022 Assessment & Plan (1) Hyperglycemia due to type 2 diabetes mellitus: Plan: -Patient presents with Hyperglycemia due to diabetes mellitus/medical noncompliance/patient appears to be unaware of association between diet and medications- -Initially followed by Dr Massey, however, due to patients non compliance and difficulty following instructions, they signed off -At home,Patient is taking regular Humulin U 500, listed as 10 to 25 units subcu twice daily, which she does not understand how to take -She presents to the hospital with elevated blood glucose -During my interaction with her, she insists she knows how to monitor glucose and administer insulin -Diabetes education worked with her and determined that she can satisfactorily monitor her glucose and inject Insulin. -However, the problem is that the patient lives alone and unable to cater for herself in terms of grocery shopping. At times she only has cereal at home. When that happenns, she adjusts her insulin dose to a lower dose, leading to episodes of hyperglycemia. -Although, patient initially resisted, she is now more amenable to home health. She dose not want SNF placement -Will keep keep on sliding scale for now and Glargine 15 units morning and Evening -> Will speak with Nat Jimenez and pharmacy tomorrow prior to discharge. (2) Anxiety: Plan: Anxiety with depression - Continue fluvoxamine (3) CAD (coronary artery disease): Plan: CAD/hypertension/history of coronary artery stent- - Continue potassium chloride and Brilinta (4) Drug-induced tremor: Plan: Noted to be an intermittently significant issue right upper extremity. - Reduces with movement and grasping something (5) Hypertension: Plan: BP is under good control without medication. - Monitor (6) GERD (gastroesophageal reflux disease): Plan: GERD/dysmotility- - Continue pantoprazole and metoclopramide (7) Hypothyroidism: Plan: Continue levothyroxine 88 mcg daily (8) Diabetes type 2, uncontrolled: (9) Dyslipidemia: Plan: - Continue atorvastatin 80 mg daily (10) S/P coronary artery stent placement: Admission and Anticipated Discharge Date Admission Date: January 27, 2022 Subjective No major complaints today. Reports no fevers/chills, chest pain, shortness of breath, abdominal pain, nausea, or vomiting. Physical Exam Constitutional: WD/WN, vitals as above Eyes: EOM intact bilaterally; no conjunctival abnormality ENMT: external ear and nose normal, oropharynx normal Neck: trachea midline, no thyromegaly normal visual inspection Respiratory: normal respiratory effort, lungs clear to auscultation no respiratory distress Cardiovascular: RRR, no murmur, no edema Gastrointestinal (Abdomen): Inspection/Auscultation: abdomen normal to inspection; abdomen not distended Musculoskeletal: no cyanosis or clubbing, extremities motor strength 5/5 Skin: no rashes, warm and dry Neurologic: moves all extremities and awake Psychiatric: Orientation: alert, oriented to person and cooperative Results & Data Results & Data ([facility]) Vital Signs (Past 12 Hours) Vital Signs Temp Pulse Resp BP Pulse Ox O2 Del Method 01/28/22 15:01 36.9 C 60 18 92/60 L 97 Room Air 01/28/22 08:04 36.3 C L 66 18 117/67 96 Room Air PG Care Time/CCT Total # of Minutes Spent Total Time Spent with Patient: Total time spent is greater than 50% in coordination of care (as documented) at patient's floor/unit and/or counseling patient: Coding Level of Care Code 26245 Subseq Hosp Care Lvl 2 Diagnoses Hyperglycemia due to type 2 diabetes mellitus E11.65 Anxiety F41.9 CAD (coronary artery disease) I25.10 Coronary Disease-Associated Artery/Lesion type: [place] artery [place] vs. transplanted heart: [place] heart Associated angina: unspecified whether angina present Drug-induced tremor G25.1 Hypertension I10 GERD (gastroesophageal reflux disease) K21.9 Hypothyroidism E03.9 Diabetes type 2, uncontrolled E11.65 Dyslipidemia E78.5 S/P coronary artery stent placement Z95.5 (1) CAD (coronary artery disease) Coronary Disease-Associated Artery/Lesion type: [place] artery [place] vs. transplanted heart: [place] heart Associated angina: unspecified whether angina present Qualified Code(s): I25.10 - Atherosclerotic heart disease of [place] coronary artery without angina pectoris
[2022-01-28] MEDS: ATORVASTATIN 40 MG TAB PO SCH (20:41)
[2022-01-28] MEDS: PANTOprazole 40 MG TAB PO SCH (20:42)
[2022-01-28] MEDS: LANTUS PER UNIT CHARGE SQ SCH (21:33)
[2022-01-29] MEDS: LEVOTHYROXINE SODIUM 88 MCG TABLET PO SCH (06:31)
[2022-01-29 06:38] LABS: Hematocrit (blood only) 34.1 % (34.1-44.9); Hemoglobin 11.5 g/dl (12.0-16.0); Mean Corpuscular Hemoglobin 28.8 pg (25.0-34.0); Mean Corpuscular Hgb Conc 33.7 g/dL (32.0-36.0); Mean Corpuscular Volume 85.5 fL (80.0-100.0); Mean Platelet Volume 11.4 fL (9.4-12.3); Platelet Count 228 K/uL (130-400); RDW Coefficient of Variation 12.7 % (11.5-14.5); RDW Standard Deviation 39.8 fL (36.4-46.3); Red Blood Count 3.99 M/uL (3.93-5.22); White Blood Count 7.54 K/ul (4.8-10.8)
[2022-01-29 07:06] LABS: BUN Creatinine Ratio 10.2 (10-20); Calcium 7.9 mg/dl (8.5-10.1); Creatinine Clr Calc Pharmacy 53.7 ml/min; Est GFR (African American) 71.7 ml/min; Est GFR (Non-African American) 61.8 ml/min; Magnesium 1.3 mg/dl (1.7-2.4); Potassium 4.2 mmol/L (3.5-5.1)
[2022-01-29] MEDS: fluvoxaMINE MALEATE 50 MG TAB PO SCH (09:49)
[2022-01-29] MEDS: ENOXAPARIN INJ 40 MG/0.4 ML SYR SQ SCH (09:50)
[2022-01-29] MEDS: SUCRALFATE 1 GM TAB PO SCH ×2 (09:50→12:34)
[2022-01-29] MEDS: METOCLOPRAMIDE HCL 10 MG TABLET PO SCH ×2 (09:50→12:34)
[2022-01-29] MEDS: INSULIN ASPART PER UNIT SC SCH ×2 (09:51→13:10)
[2022-01-29] MEDS: MAGNESIUM SULFATE / D5W 1 GM/100 ML BAG IV SCH ×3 (09:53→14:36)
[2022-01-29] MEDS: POTASSIUM CHLORIDE CRTAB 20 MEQ TABCR PO SCH (09:56)
[2022-01-29] MEDS: hydrOXYzine HCl 10 MG TAB PO PRN (10:37)
[2022-01-29] MEDS: TICAGRELOR 90 MG TAB PO SCH (15:42)
--- NOTE | 2022-01-29 19:05 | Discharge Summary ---
Date of Service January 29, 2022 Admission HPI Per Admitting Provider The patient is a 61-year-old female with a past medical history including diabetes mellitus, noncompliance, GERD, delusional disorder, hyponatremia, severe protein calorie malnutrition, early satiety, depression with anxiety, B12 deficiency, D deficiency, psoriasis, drug-induced tremor, tobacco abuse, dyslipidemia, diabetes mellitus uncontrolled, NSTEMI, CAD, and failure to thrive in adult.. The patient does not appear to understand the use of her Insulin, and appropriate diet for diabetic. She lives alone at home, and reports that she does not have any help with her diabetic needs Principal Diagnosis Poor diabetic control Discharge Exam Constitutional WD/WN, vitals as above Eyes EOM intact bilaterally; no conjunctival abnormality ENMT external ear and nose normal, oropharynx normal Neck trachea midline, no thyromegaly normal visual inspection Respiratory normal respiratory effort, lungs clear to auscultation no respiratory distress Cardiovascular RRR, no murmur, no edema Gastrointestinal (Abdomen) Inspection/Auscultation: abdomen normal to inspection; abdomen not distended Musculoskeletal no cyanosis or clubbing, extremities motor strength 5/5 Skin no rashes, warm and dry Neurologic moves all extremities and awake Psychiatric Orientation: alert, oriented to person and cooperative Discharge Data Allergies Allergy/AdvReac Type Severity Reaction Status Date / Time dulaglutide [From Trulicity] AdvReac Intermediate stomach Verified 01/25/22 20:23 pain albiglutide [From Tanzeum] AdvReac Unknown CAN'T Verified 01/25/22 20:23 REMEMBER Consultations 01/26/22 00:07 ED Decision to Admit Stat Ordered Studies 01/25/22 22:18 CT Abd and Pelvis [CT abd pelvis wo con] Urgent Hospital Course (1) Hyperglycemia due to type 2 diabetes mellitus: -Patient presents with Hyperglycemia due to diabetes mellitus/medical noncompliance/patient appears to be unaware of association between diet and medications- -Followed by Dr Massey -At home,Patient is taking regular Humulin U 500, listed as 10 to 25 units subcu twice daily -She presents to the hospital with elevated blood glucose -Social issues & good dietary choices are root cause of issues. She uses SNAP benefits, and she goes to the [employer] where she mostly purchases cereal. She denied to me that she has anyone that can take her to a grocery store, though her brother could actually do so as he was able to pick her up after work on discharge. Per the pharmacist working with her outpatient, she also has unfounded concern for sending herself too low, and therefore often underdoses her insulin, leaving her in the 300-400 range. In the end, the patient is able to maker her own decisions. She did not want to go to a [facility] or SNF/rehab and chose to go home. She was medically stable for discharge. Her sugars here are well-controlled with stable diet and insulin. (2) Anxiety: Anxiety with depression - Continue fluvoxamine (3) CAD (coronary artery disease): CAD/hypertension/history of coronary artery stent- - Continue potassium chloride and Brilinta (4) Drug-induced tremor: Noted to be an intermittently significant issue right upper extremity. - Reduces with movement and grasping something - Possibly due to Reglan, but she cannot tell me if it correlates with when she started the Reglan. Seems to wax/wane. In the end, no change. (5) Hypertension: BP is under good control without medication. - Monitor (6) GERD (gastroesophageal reflux disease): GERD/dysmotility- - Continue pantoprazole and metoclopramide (7) Hypothyroidism: Continue levothyroxine 88 mcg daily (8) Diabetes type 2, uncontrolled: (9) Dyslipidemia: - Continue atorvastatin 80 mg daily (10) S/P coronary artery stent placement: Total Time Total Time Spent Total Time Spent (In Minutes): 35 Discharge Plan Discharge Items Patient Disposition: Home - Home Health Services Reason For Visit: HYPERGLYCEMIA / HYPOGLYCEMIA Discharge Diagnosis: High and low blood sugars Activity: Resume your previous activity Non-emergency contact: Primary Care Provider Call non-emergency contact if: your symptoms worsen Follow-up/Referrals: Jc Zaman, [Primary Care Provider] - 02/04/22 1:00 pm Diet: Carb Consistent or DM2 Addtl Attending Provider Instructions: Vida Chanell, You were admitted with high and low blood sugars. Your diabetes is not optimally controlled at home, but we have offered lots of help to try to get it better. We have arranged home help to hopefully help you continue to manage your blood sugars at home. We have also connected you with services to try to improve the variety and healthiness of the food you have at home. Pending Studies at Discharge: No Stand-Alone Forms: My [facility], Smoking Cessation Medications and DC Order Prescriptions: Continued famotidine 20 mg tablet 20 mg PO BID Qty: 180 3RF Rx Instructions: TAKES AT 1600 & 2400 Brilinta 90 mg tablet 90 mg PO BID 90 Days Qty: 180 3RF Label Comments: "I dont know this medications." Rx Instructions: TAKES 1600 & 2400 (DME) pen needle, diabetic [BD Ultra-Fine [place] Pen Needle] 32 gauge x 5/32" needle See Dose Instructions .ROUTE .MEDSUPPLY Qty: 200 11RF Dose Instruction: As directed Rx Instructions: use 2 times daily or as directed by physician to monitor blood sugar sucralfate 1 gram tablet 1 g PO ACHS 30 Days Qty: 120 3RF atorvastatin 80 mg tablet 80 mg PO QPM Qty: 90 1RF potassium chloride 20 mEq tablet,ER particles/crystals 40 meq PO QAM Qty: 180 1RF metoclopramide HCl 10 mg tablet 10 mg PO ACHS Qty: 120 0RF Rx Instructions: for your nausea and gastroparesis hydroxyzine HCl 10 mg tablet 5 mg PO TID PRN (Reason: anxiety) Qty: 30 2RF (DME) blood-glucose meter [Betterment Autocode Meter] Kit See Rx Instructions .Route Rx Instructions: As directed levothyroxine 88 mcg tablet 88 mcg PO DAILY Qty: 30 5RF Humulin R U-500 (Conc) Kwikpen 500 unit/mL (3 mL) insulin pen 10 - 25 unit subcut BID Rx Instructions: 10 units AM (~3pm) and 5 units PM (12am) meclizine 25 mg tablet 25 mg PO TID PRN (Reason: dizziness) Rx Instructions: for your dizziness nystatin 100,000 unit/gram powder 1 applic topical BID PRN (Reason: Skin Irritation) pantoprazole 40 mg tablet,delayed release (DR/EC) 40 mg PO QPM fluvoxamine 50 mg tablet 50 mg PO BID Qty: 60 0RF acetaminophen [Tylenol Extra Strength] 500 mg tablet 1,000 mg PO TID PRN (Reason: Pain) Rx Instructions: OTC Discharge Orders: Discharge Order (Routine); Ordered 01/29/22 Ordered By: Lauro Bradley Admission Data Admit Date/Time: 01/27/22 13:11 Attending Provider: Lauro Bradley Admit Provider: Ariane Mejias Primary Care Provider: Jc Zaman Other Providers: Laurent Gaytan ; [place] Other Interventions: Discharge Summary Assessment (RN) Last Done: 01/29/22 16:12 Coding Level of Care Code D/C DAY MANAGEMENT >30 MINS Diagnoses Hyperglycemia due to type 2 diabetes mellitus E11.65 Anxiety F41.9 CAD (coronary artery disease) I25.10 Coronary Disease-Associated Artery/Lesion type: [place] artery [place] vs. transplanted heart: [place] heart Associated angina: unspecified whether angina present Drug-induced tremor G25.1 Hypertension I10 GERD (gastroesophageal reflux disease) K21.9 Hypothyroidism E03.9 Diabetes type 2, uncontrolled E11.65 Dyslipidemia E78.5 S/P coronary artery stent placement Z95.5
== END 2022-01-29 18:16 | disposition home health service (06) | DRG 639 ==
LOC: ED 16:05 → 2W 16:05 → SUATTDRO 01-26 00:52 → 2W 01-26 01:20 → SUATTDRO 01-27 13:11 → 3N 01-27 16:41

== ENCOUNTER 2022-05-21 19:30 | Inpatient (IN) ==
[2022-05-21 20:50] LABS: Basophils # (auto) 0.06 K/uL (0-0.2); Basophils % (auto) 0.4 %; Eosinophils # (auto) 0.15 K/uL (0-0.50); Hematocrit (blood only) 38.8 % (37.0-47.0); Hemoglobin 13.6 g/dl (12.0-16.0); Immature Granulocytes # (auto) 0.05 K/uL (0.01-0.20); Immature Granulocytes % (auto) 0.3 %; Lymphocytes # (auto) 2.52 K/uL (1.2-3.4); Mean Corpuscular Hemoglobin 28.6 pg (25.0-34.0); Mean Corpuscular Hgb Conc 35.1 g/dL (32.0-36.0); Mean Corpuscular Volume 81.5 fL (80.0-100.0); Mean Platelet Volume 10.9 fL (9.4-12.4); Monocytes % (auto) 4.7 %; Neutrophils # (auto) 11.33 K/uL (1.40-6.50); Neutrophils % (auto) 76.6 %; Platelet Count 234 K/uL (130-400); RDW Coefficient of Variation 12.2 % (11.5-14.5); RDW Standard Deviation 36.4 fL (36.4-46.3); Red Blood Count 4.76 M/uL (4.20-5.40); White Blood Count 14.81 K/ul (4.8-10.8)
[2022-05-21] MEDS ORDERED: SODIUM CHLORIDE 0.9% 1000ML 1,000 ML IV ONE (21:16)
[2022-05-21] MEDS ORDERED: MoRPHine SULFATE 4 MG/ML 1 ML CARP\\VIAL IV STA (21:16)
[2022-05-21] MEDS ORDERED: ONDANSETRON INJ 2 MG/ML 2 ML VIAL IV STA (21:16)
--- NOTE | 2022-05-21 21:18 | Emergency Department Note ---
Impression & Plan Hyperglycemia ADMIT ED Provider Note HPI: The patient is a 61-year-old female with history of insulin-dependent diabetes, GERD, coronary artery disease status post stent, who presents emergency department with chief complaint of abdominal discomfort, nausea and vomiting, patient states she has also had chest "tightness". Patient states that her symptoms have been ongoing for the past 2 days. She states that they have been relatively constant. Patient states that she also developed a mild headache just since she checked into the ED today. On arrival here to the ED the patient is hemodynamically stable, she is afebrile, she is saturating well on room air, she is in no acute distress on my initial evaluation. ROS: - Per HPI *Outpatient medications and allergy history reviewed. *Pertinent external medical records reviewed. PE: General: Alert, obese HEENT: Normocephalic, trachea midline Eyes: Extraocular eye movement is intact, no scleral erythema Pulmonary: Clear to auscultation bilaterally, no wheezing Cardio: Regular rate and rhythm GI: Abdomen is soft to palpation : No suprapubic tenderness MSK: No evidence of trauma or malformation of the extremities, no edema Skin: No evidence of rash Neuro: Alert, no focal deficits Psychiatric: Cooperative clinical research monitor: (As interpreted by myself): - An order was placed for continuous cardiac monitoring - Patient was noted to be in sinus rhythm with a rate of 65 EKG: (As interpreted by myself): Rate: 98 Rhythm: Normal sinus rhythm Intervals: Within normal limits ST changes: No ST elevation Time: 1936 Interventions provided in ED: -IV fluid bolus, IV morphine, IV Zofran Differential Diagnosis: Diabetic ketoacidosis, small bowel obstruction, viral gastroenteritis, acute coronary syndrome, pulmonary embolism, subarachnoid hemorrhage, intracranial mass, tension headache, migraine headache, amongst other potential pathologies. Medical Decision Making: Patient presented to the emergency department with multiple issues, states she has had some abdominal discomfort, also chest pain, also mild headache. On arrival here to the ED the patient is in no acute distress on my initial assessment, she is alert and oriented, hemodynamically stable. Shortly after the patient arrived IV was established, lab work obtained, patient was maintained on rn cardiac cath. Lab work does show evidence of a leukocytosis, venous blood gas shows slight acidosis with pH of 7.31, bicarbonate level on VBG is 24, no elevation in PCO2 levels. Lab work otherwise does show evidence of mild anion gap elevation at 12, slight acidosis with serum bicarbonate level of 17, CT imaging of the abdomen pelvis was obtained that shows no acute inflammatory or surgical findings. CT imaging of the head does not show any evidence of acute process., Chest x-ray does not show any evidence of acute disease. Urinalysis does not show any evidence of infection. Leukocytosis is possibly reactive in nature without obvious source for infection. Patient was initially ordered an IV insulin dose, bedside RN informing that the patient's repeat blood sugar was down to 150 therefore this was not given. Patient was given IV fluid bolus, on reassessment she states she still has some chest discomfort, does not feel well for discharge. Given her lab findings of metabolic acidosis, hyperglycemia, and chest pain I did discuss the case with the on-call hospitalist, Dr. Kraus, who is in agreement to admit the patient for further care. Patient is in agreement to this plan she was admitted to the hospital in stable condition for further management. Consultants: Dr. Kraus, hospitalist Disposition discussion held by myself with: Patient Diagnosis: 1. Chest pain, acute 2. Metabolic acidosis 3. Hyperglycemia, acute 4. Abdominal pain, acute 5. Leukocytosis, nonspecific Disposition: Admission Edwin Hodge DO Emergency Medicine Past Med/Surg History Medical History Albuminuria Anxiety CAD (coronary artery disease) No remaining occlusive disease after 2 LAD drug eluting stents 10/22/20. Follows with Dr. Harris Chronic headaches Depression Diabetes type 2, uncontrolled IDDM Diabetic nephropathy associated with type 2 diabetes mellitus Dyslipidemia Hypertension Hypokalemia Hypomagnesemia Hypothyroidism NSTEMI (non-ST elevated myocardial infarction) 10/22/2020 s/p 2 CHANTAL Obesity Osteoarthritis Tobacco abuse Vulvitis Surgical History History of cardiac catheterization 10/22/2020 Dominant: Right Left Main (% Stenosis): Normal LAD (% Stenosis): Proximal (99) and Mid (75) Circumflex (% Stenosis): Normal (luminal irregularities) RCA (% Stenosis): Normal (Luminal irregularities) 2 CHANTAL to LAD History of cholecystectomy History of dental surgery History of tonsillectomy S/P coronary artery stent placement 2 CHANTAL to LAD 10/22/2020 Family History Unknown Diabetes Thyroid disorder Father Diabetes Other No family history of adverse response to anesthesia Denies family history of Ovarian cancer Prostate cancer Breast cancer Colorectal cancer Uterine cancer Social History (Updated 05/03/22 @ 14:43 by ALBARO Madrigal) Smoking Status: Current every day smoker Tobacco Type: Cigarettes packs per day: 0.5; Cigarettes Per Day: 10 cigs; Second Hand Exposure: Yes; Hx Alcohol Use: No Hx Substance Use: No Preferred Language: South African Communication Ability: Effective Visual Impairment: No Limitations Triple Valve Mechanic Required: No Beliefs That Will Affect Care: None marital status: Single Current Living Situation: Alone current occupational status: disabled How many Children do You have: 0 Feels Safe at Home: Yes Safety Concerns Comment: Gets nervous sometimes because she lives alone, gets shaky from anxiety caffeine: Yes Dental Care, Regularly: No Physical Activity Frequency: Does not Exercise Seatbelt Use: always Sunscreen Use: No Assistive Devices: None Allergies Allergies Allergy/AdvReac Type Severity Reaction Status Date / Time dulaglutide [From Trulicity] AdvReac Intermediate stomach Verified 05/21/22 23:01 pain albiglutide [From Tanzeum] AdvReac Unknown CAN'T Verified 05/21/22 23:01 REMEMBER Home Meds Home Medications Medication Instructions Recorded Confirmed nystatin 100,000 unit/gram topical 1 applic topical BID PRN Skin 08/20/21 05/21/22 powder Irritation pantoprazole 40 mg tablet,delayed 40 mg PO QPM 09/06/21 05/21/22 release meclizine 25 mg tablet 25 mg PO TID PRN dizziness 10/11/21 05/21/22 blood-glucose meter (Prodigy 10/15/21 05/03/22 Autocode Meter kit) acetaminophen 500 mg tablet 1,000 mg PO TID PRN Pain 01/25/22 05/21/22 (Tylenol Extra Strength) betamethasone dipropionate 0.05 % 1 applic topical DIRECTED PRN 05/03/22 05/21/22 topical cream Skin Irritation Previous Rx's Medication Instructions Recorded famotidine 20 mg tablet 20 mg PO BID #180 tabs 09/05/21 ticagrelor 90 mg tablet (Brilinta) 90 mg PO BID 90 days #180 tabs 09/05/21 pen needle, diabetic 32 gauge x #200 ea 09/13/21" (BD Ultra-Fine [place] Pen Needle) fluvoxamine 50 mg tablet 50 mg PO BID #60 tabs 09/15/21 sucralfate 1 gram tablet 1 g PO ACHS 30 days #120 tabs 10/03/21 levothyroxine 88 mcg tablet 88 mcg PO DAILY #30 tabs 10/15/21 potassium chloride 20 mEq 40 meq PO QAM #180 tabs 04/08/22 tablet,extended release(part/cryst) atorvastatin 80 mg tablet 80 mg PO QPM #90 tabs 04/09/22 metoclopramide HCl 10 mg tablet 10 mg PO ACHS #120 tabs 04/09/22 hydroxyzine HCl 10 mg tablet 10 mg PO TID PRN anxiety #90 tabs 05/03/22 insulin regular hum U-500 conc 500 10 - 25 unit (0.02 - 0.05 mL) 05/13/22 unit/mL(3 mL) subcut pen (Humulin subcut BID #1 box R U-500 (Conc) Insulin Kwikpen) Results & Data (ED) Vital Signs Vital Signs - 24 hr 05/21/22 19:32 05/21/22 20:56 05/21/22 21:08 Temperature 36.3 C L Temperature Source Temporal Artery Scan Pulse Rate 112 H 74 Pulse Rate [Finger] Respiratory Rate 22 Respiratory Depth Normal Blood Pressure 130/86 Blood Pressure [Right Arm] Blood Pressure Mean 100 Blood Pressure Mean [Right Arm] Pulse Oximetry 98 98 Oxygen Delivery Method Room Air Room Air Sepsis Recent Fever Within 48 Hours No Sepsis New/Unexplained Change in Mental Status N/A Sepsis Action Taken by Nursing No Action Required 05/21/22 22:05 Temperature Temperature Source Pulse Rate Pulse Rate [Finger] 66 Respiratory Rate 18 Respiratory Depth Blood Pressure Blood Pressure [Right Arm] 97/65 L Blood Pressure Mean Blood Pressure Mean [Right Arm] 75 Pulse Oximetry 100 Oxygen Delivery Method Room Air Sepsis Recent Fever Within 48 Hours Sepsis New/Unexplained Change in Mental Status Sepsis Action Taken by Nursing Laboratory Data 05/21/22 20:00 05/21/22 20:00 Lab Results 05/21/22 05/21/22 05/21/22 Range/Units 20:00 20:00 20:00 WBC 14.81 H (4.8-10.8) K/ul RBC 4.76 (4.20-5.40) M/uL Hgb 13.6 (12.0-16.0) g/dl Hct 38.8 (37.0-47.0) % MCV 81.5 (80.0-100.0) fL MCH 28.6 (25.0-34.0) pg MCHC 35.1 (32.0-36.0) g/dL RDW Std Deviation 36.4 (36.4-46.3) fL RDW Coeff of Umair 12.2 (11.5-14.5) % Plt Count 234 (130-400) K/uL MPV 10.9 (9.4-12.4) fL Immature Gran % (Auto) 0.3 % Neut % (Auto) 76.6 % Lymph % (Auto) 17.0 % [place] % (Auto) 4.7 % Eos % (Auto) 1.0 % Baso % (Auto) 0.4 % Neut # (Auto) 11.33 H (1.40-6.50) K/uL Lymph # (Auto) 2.52 (1.2-3.4) K/uL [place] # (Auto) 0.70 H (0.11-0.59) K/uL Eos # (Auto) 0.15 (0-0.50) K/uL Baso # (Auto) 0.06 (0-0.2) K/uL Immature Gran # (Auto) 0.05 (0.01-0.20) K/uL PT 10.4 (9.0-12.0) Seconds INR 1.0 (0.9-1.1) APTT 24.4 (21.0-31.0) Seconds PTT Ratio 0.9 VBG pH (7.36-7.41) VBG pCO2 (38-50) mmHg VBG pO2 mmHg VBG HCO3 mmol/L VBG O2 Saturation % VBG Base Excess mEq/L Sodium 127 L (136-145) mmol/L Potassium 3.6 (3.5-5.1) mmol/L Chloride 98 (98-107) mmol/L Carbon Dioxide 17 L (21-32) mmol/L Anion Gap 12 H (3-11) BUN 4 L (6-23) mg/dl Creatinine 1.03 (0.6-1.2) mg/dl Est Cr Clr Drug Dosing 52.2 ml/min Est GFR ( Amer) 67.5 ml/min Est GFR (Non-Af Amer) 58.2 ml/min BUN/Creatinine Ratio 3.9 L (10-20) Glucose 365 H* (70-99(Fasting)) mg/dl POC Glucose (70-99) mg/dl Calcium 8.4 L (8.6-10.3) mg/dl Magnesium (1.7-2.4) mg/dl Total Bilirubin 0.4 (0.2-1.0) mg/dl AST 11 L (13-39) U/L ALT 9 (7-52) U/L Alkaline Phosphatase 162 H (34-104) U/L Troponin I High Sens 9.8 (0-14) pg/ml Total Protein 6.7 (6.0-8.3) gm/dl Albumin 3.2 L (3.4-5.0) gm/dl Globulin 3.5 (2.5-4.0) gm/dl Albumin/Globulin Ratio 0.9 (0.9-2) Urine Color Urine Appearance (Clear) Urine pH (4.5-7.5) Ur Specific [place] (1.000-1.030) Urine Protein (Negative) Urine Glucose (UA) (Negative) Urine Ketones (Negative) Urine Blood (Negative) Urine Nitrite (Negative) Urine Bilirubin (Negative) Urine Urobilinogen (Negative) Ur Leukocyte Esterase (Negative) Urine WBC (Auto) (0-5) /hpf Urine RBC (Auto) (0-4) /hpf U Hyaline Cast (Auto) (0-5) /lpf U Epithel Cells (Auto) (0-5) /lpf Urine Bacteria (Auto) (Negative) SARS-CoV-2 (PCR) (Negative) Influenza Type A (PCR) (Neg) Influenza Type B (PCR) (Neg) RSV (RT-PCR) (Neg) 05/21/22 05/21/22 05/21/22 Range/Units 20:02 21:28 22:56 WBC (4.8-10.8) K/ul RBC (4.20-5.40) M/uL Hgb (12.0-16.0) g/dl Hct (37.0-47.0) % MCV (80.0-100.0) fL MCH (25.0-34.0) pg MCHC (32.0-36.0) g/dL RDW Std Deviation (36.4-46.3) fL RDW Coeff of Umair (11.5-14.5) % Plt Count (130-400) K/uL MPV (9.4-12.4) fL Immature Gran % (Auto) % Neut % (Auto) % Lymph % (Auto) % [place] % (Auto) % Eos % (Auto) % Baso % (Auto) % Neut # (Auto) (1.40-6.50) K/uL Lymph # (Auto) (1.2-3.4) K/uL [place] # (Auto) (0.11-0.59) K/uL Eos # (Auto) (0-0.50) K/uL Baso # (Auto) (0-0.2) K/uL Immature Gran # (Auto) (0.01-0.20) K/uL PT (9.0-12.0) Seconds INR (0.9-1.1) APTT (21.0-31.0) Seconds PTT Ratio VBG pH (7.36-7.41) VBG pCO2 (38-50) mmHg VBG pO2 mmHg VBG HCO3 mmol/L VBG O2 Saturation % VBG Base Excess mEq/L Sodium (136-145) mmol/L Potassium (3.5-5.1) mmol/L Chloride (98-107) mmol/L Carbon Dioxide (21-32) mmol/L Anion Gap (3-11) BUN (6-23) mg/dl Creatinine (0.6-1.2) mg/dl Est Cr Clr Drug Dosing ml/min Est GFR ( Amer) ml/min Est GFR (Non-Af Amer) ml/min BUN/Creatinine Ratio (10-20) Glucose (70-99(Fasting)) mg/dl POC Glucose 368 H* (70-99) mg/dl Calcium (8.6-10.3) mg/dl Magnesium (1.7-2.4) mg/dl Total Bilirubin (0.2-1.0) mg/dl AST (13-39) U/L ALT (7-52) U/L Alkaline Phosphatase (34-104) U/L Troponin I High Sens (0-14) pg/ml Total Protein (6.0-8.3) gm/dl Albumin (3.4-5.0) gm/dl Globulin (2.5-4.0) gm/dl Albumin/Globulin Ratio (0.9-2) Urine Color Yellow Urine Appearance Clear (Clear) Urine pH 5.5 (4.5-7.5) Ur Specific [place] 1.014 (1.000-1.030) Urine Protein Negative (Negative) Urine Glucose (UA) 2+ H (Negative) Urine Ketones Negative (Negative) Urine Blood Negative (Negative) Urine Nitrite Negative (Negative) Urine Bilirubin Negative (Negative) Urine Urobilinogen Negative (Negative) Ur Leukocyte Esterase Trace H (Negative) Urine WBC (Auto) 1-5 (0-5) /hpf Urine RBC (Auto) 0-4 (0-4) /hpf U Hyaline Cast (Auto) 0 (0-5) /lpf U Epithel Cells (Auto) >30 H (0-5) /lpf Urine Bacteria (Auto) Negative (Negative) SARS-CoV-2 (PCR) NEGATIVE (Negative) Influenza Type A (PCR) Negative (Neg) Influenza Type B (PCR) Negative (Neg) RSV (RT-PCR) Negative (Neg) 05/21/22 05/21/22 05/21/22 Range/Units 23:02 23:10 23:10 WBC (4.8-10.8) K/ul RBC (4.20-5.40) M/uL Hgb (12.0-16.0) g/dl Hct (37.0-47.0) % MCV (80.0-100.0) fL MCH (25.0-34.0) pg MCHC (32.0-36.0) g/dL RDW Std Deviation (36.4-46.3) fL RDW Coeff of Umair (11.5-14.5) % Plt Count (130-400) K/uL MPV (9.4-12.4) fL Immature Gran % (Auto) % Neut % (Auto) % Lymph % (Auto) % [place] % (Auto) % Eos % (Auto) % Baso % (Auto) % Neut # (Auto) (1.40-6.50) K/uL Lymph # (Auto) (1.2-3.4) K/uL [place] # (Auto) (0.11-0.59) K/uL Eos # (Auto) (0-0.50) K/uL Baso # (Auto) (0-0.2) K/uL Immature Gran # (Auto) (0.01-0.20) K/uL PT (9.0-12.0) Seconds INR (0.9-1.1) APTT (21.0-31.0) Seconds PTT Ratio VBG pH 7.31 L (7.36-7.41) VBG pCO2 47 (38-50) mmHg VBG pO2 20 mmHg VBG HCO3 24 mmol/L VBG O2 Saturation < 60.0 % VBG Base Excess -2.9 mEq/L Sodium 134 L (136-145) mmol/L Potassium 3.7 (3.5-5.1) mmol/L Chloride 104 (98-107) mmol/L Carbon Dioxide 23 (21-32) mmol/L Anion Gap 7 (3-11) BUN 4 L (6-23) mg/dl Creatinine 1.00 (0.6-1.2) mg/dl Est Cr Clr Drug Dosing 53.7 ml/min Est GFR ( Amer) 69.9 ml/min Est GFR (Non-Af Amer) 60.3 ml/min BUN/Creatinine Ratio 4.0 L (10-20) Glucose 134 H (70-99(Fasting)) mg/dl POC Glucose 159 H (70-99) mg/dl Calcium 7.6 L (8.6-10.3) mg/dl Magnesium 1.1 L (1.7-2.4) mg/dl Total Bilirubin (0.2-1.0) mg/dl AST (13-39) U/L ALT (7-52) U/L Alkaline Phosphatase (34-104) U/L Troponin I High Sens 11.2 (0-14) pg/ml Total Protein (6.0-8.3) gm/dl Albumin (3.4-5.0) gm/dl Globulin (2.5-4.0) gm/dl Albumin/Globulin Ratio (0.9-2) Urine Color Urine Appearance (Clear) Urine pH (4.5-7.5) Ur Specific [place] (1.000-1.030) Urine Protein (Negative) Urine Glucose (UA) (Negative) Urine Ketones (Negative) Urine Blood (Negative) Urine Nitrite (Negative) Urine Bilirubin (Negative) Urine Urobilinogen (Negative) Ur Leukocyte Esterase (Negative) Urine WBC (Auto) (0-5) /hpf Urine RBC (Auto) (0-4) /hpf U Hyaline Cast (Auto) (0-5) /lpf U Epithel Cells (Auto) (0-5) /lpf Urine Bacteria (Auto) (Negative) SARS-CoV-2 (PCR) (Negative) Influenza Type A (PCR) (Neg) Influenza Type B (PCR) (Neg) RSV (RT-PCR) (Neg) Administered Medications Insulin Aspart (Insulin Aspart Per Unit Charge) 0 units SC ACHS TONI Stop: 06/21/22 01:14 Last Admin: 05/22/22 01:49 Dose: Not Given Documented By: MARTA Co-signed By: DINAH Discontinued Medications Sodium Chloride (Nss 1000ml) 1,000 mls @ 999 mls/hr IV .Q1H1M ONE Stop: 05/21/22 22:16 Last Infusion: 05/21/22 22:30 Dose: 0 mls/hr Documented By: Admin: 05/21/22 21:20 Dose: 999 mls/hr Documented By: MARTA Insulin Human Regular (Novolin-R Insulin Per Unit Charge) 7 units IV NOW STA Stop: 05/21/22 22:49 Last Admin: 05/21/22 23:06 Dose: Not Given Documented By: MARTA Ioversol (Optiray 350 100ml) 84 ml IV ONCE ONE Stop: 05/21/22 21:44 Last Admin: 05/21/22 21:44 Dose: 84 ml Documented By: RUDI Morphine Sulfate (Morphine Sulfate 4 Mg/Ml 1 Ml Carp\\Vial) 4 mg IV NOW STA Stop: 05/21/22 21:17 Last Admin: 05/21/22 21:20 Dose: 4 mg Documented By: MARTA Ondansetron HCl (Ondansetron Inj 2 Mg/Ml 2 Ml Vial) 4 mg IV NOW STA Stop: 05/21/22 21:17 Last Admin: 05/21/22 21:21 Dose: 4 mg Documented By: MARTA Imaging Data Radiologist's Impression: Chest X-Ray 05/21/22 19:34 SINGLE VIEW CHEST CLINICAL HISTORY: Atypical chest pain. FINDINGS: An AP, portable, upright chest radiograph is compared to study dated 11/20/2021. The examination is degraded by portable technique and patient rotation. The cardiomediastinal silhouette is unremarkable. The lungs and pleural spaces are clear. No pneumothorax is seen. The skeletal structures are osteopenic. The bony thorax is grossly intact. IMPRESSION: No active disease in the chest. ACT 112: Negative or not required by law. Electronically signed by: Lalito Cisse M.D. 05/21/2022 10:14 PM Abdomen/Pelvis CT 05/21/22 21:16 Exam(s): CT ABDOMEN + PELVIS With Contrast IV Amt: 84ml Optiray 350 EXAM: CT Abdomen and Pelvis With Intravenous Contrast CLINICAL HISTORY: Reason for exam: N/V, mid abd pain. TECHNIQUE: Axial computed tomography images of the abdomen and pelvis with intravenous contrast. Automated exposure control was utilized for the study. A dose lowering technique was utilized adhering to the principles of ALARA. CONTRAST: Patient received 84ml Optiray 350 of IV contrast COMPARISON: No relevant prior studies available. FINDINGS: Lung bases: Unremarkable. No mass. No consolidation. ABDOMEN: Liver: Unremarkable. No mass. Gallbladder and bile ducts: Cholecystectomy. No ductal dilation. Pancreas: Unremarkable. No mass. No ductal dilation. Spleen: Unremarkable. No splenomegaly. Adrenals: Unremarkable. No mass. Kidneys and ureters: Unremarkable. No hydronephrosis or delayed nephrogram. Stomach and bowel: Diverticulosis, without acute diverticulitis. No small bowel obstruction. No free intraperitoneal air. PELVIS: Appendix: No findings to suggest acute appendicitis. Bladder: Unremarkable. No mass. Reproductive: Calcified right uterine fibroid measures 1.6 x 1.8 cm. ABDOMEN and PELVIS: Intraperitoneal space: Unremarkable. No free air. No significant fluid collection. Bones/joints: Degenerative changes of the spine. No acute fracture. No dislocation. Soft tissues: Unremarkable. Vasculature: Atherosclerotic changes of the aorta. No abdominal aortic aneurysm. Lymph nodes: Unremarkable. No enlarged lymph nodes. IMPRESSION: 1. No hydronephrosis or delayed nephrogram. 2. Diverticulosis, without acute diverticulitis. No small bowel obstruction. No free intraperitoneal air. 3. Cholecystectomy. Electronically signed by: Bill Maldonado MD 05/21/22 21:[address] 05/21/22 21:16 Exam(s): CT HEAD Without Contrast EXAM: CT Head Without Intravenous Contrast CLINICAL HISTORY: Reason for exam: CERRATO. TECHNIQUE: Axial computed tomography images of the head/brain without intravenous contrast. Automated exposure control was utilized for the study. A dose lowering technique was utilized adhering to the principles of ALARA. COMPARISON: No relevant prior studies available. FINDINGS: No acute intracranial hemorrhage. No midline shift or mass effect. The [place]-white matter differentiation is maintained throughout. Age-related cerebral volume loss. Periventricular and subcortical white matter hypoattenuation, consistent with chronic microangiopathy. The visualized orbits appear grossly unremarkable. The calvarium is intact. The visualized paranasal sinuses and mastoid air cells are grossly clear. IMPRESSION: No acute intracranial hemorrhage, midline shift, or mass effect. Electronically signed by: Bill Maldonado MD 05/21/22 21:52 PM Discharge Plan Visit Data Chief Complaint: Chest Pain Stated Complaint: CHEST PAIN,DIZZY,VOMITING, ED Provider: Edwin Hodge Discharge Problem: Hyperglycemia Patient Disposition: Admitted As Inpatient Discharge Instructions Interventions: ED Discharge Assessment Last Done: 05/22/22 00:43
[2022-05-21 21:20] LABS: Albumin Globulin Ratio 0.9 (0.9-2); Albumin Level 3.2 gm/dl (3.4-5.0); BUN Creatinine Ratio 3.9 (10-20); Bilirubin,Total 0.4 mg/dl (0.2-1.0); Calcium 8.4 mg/dl (8.6-10.3); Creatinine Clr Calc Pharmacy 52.2 ml/min; Est GFR (African American) 67.5 ml/min; Est GFR (Non-African American) 58.2 ml/min; Globulin 3.5 gm/dl (2.5-4.0); Partial Thromboplastin Ratio 0.9; Partial Thromboplastin Time 24.4 Seconds (21.0-31.0); Potassium 3.6 mmol/L (3.5-5.1); Prothrombin Time 10.4 Seconds (9.0-12.0); Total Protein 6.7 gm/dl (6.0-8.3); Troponin I High Sensitivity 9.8 pg/ml (0-14)
[2022-05-21] MEDS ORDERED: OPTIRAY 350 100ml IV ONE (21:43)
--- NOTE | 2022-05-21 21:53 | CT Scan Report ---
Exam(s): CT HEAD Without Contrast EXAM: CT Head Without Intravenous Contrast CLINICAL HISTORY: Reason for exam: CERRATO. TECHNIQUE: Axial computed tomography images of the head/brain without intravenous contrast. Automated exposure control was utilized for the study. A dose lowering technique was utilized adhering to the principles of ALARA. COMPARISON: No relevant prior studies available. FINDINGS: No acute intracranial hemorrhage. No midline shift or mass effect. The [place]-white matter differentiation is maintained throughout. Age-related cerebral volume loss. Periventricular and subcortical white matter hypoattenuation, consistent with chronic microangiopathy. The visualized orbits appear grossly unremarkable. The calvarium is intact. The visualized paranasal sinuses and mastoid air cells are grossly clear. IMPRESSION: No acute intracranial hemorrhage, midline shift, or mass effect. Electronically signed by: Bill Maldonado MD 05/21/22 21:52 PM
--- NOTE | 2022-05-21 21:58 | CT Scan Report ---
Exam(s): CT ABDOMEN + PELVIS With Contrast IV Amt: 84ml Optiray 350 EXAM: CT Abdomen and Pelvis With Intravenous Contrast CLINICAL HISTORY: Reason for exam: N/V, mid abd pain. TECHNIQUE: Axial computed tomography images of the abdomen and pelvis with intravenous contrast. Automated exposure control was utilized for the study. A dose lowering technique was utilized adhering to the principles of ALARA. CONTRAST: Patient received 84ml Optiray 350 of IV contrast COMPARISON: No relevant prior studies available. FINDINGS: Lung bases: Unremarkable. No mass. No consolidation. ABDOMEN: Liver: Unremarkable. No mass. Gallbladder and bile ducts: Cholecystectomy. No ductal dilation. Pancreas: Unremarkable. No mass. No ductal dilation. Spleen: Unremarkable. No splenomegaly. Adrenals: Unremarkable. No mass. Kidneys and ureters: Unremarkable. No hydronephrosis or delayed nephrogram. Stomach and bowel: Diverticulosis, without acute diverticulitis. No small bowel obstruction. No free intraperitoneal air. PELVIS: Appendix: No findings to suggest acute appendicitis. Bladder: Unremarkable. No mass. Reproductive: Calcified right uterine fibroid measures 1.6 x 1.8 cm. ABDOMEN and PELVIS: Intraperitoneal space: Unremarkable. No free air. No significant fluid collection. Bones/joints: Degenerative changes of the spine. No acute fracture. No dislocation. Soft tissues: Unremarkable. Vasculature: Atherosclerotic changes of the aorta. No abdominal aortic aneurysm. Lymph nodes: Unremarkable. No enlarged lymph nodes. IMPRESSION: 1. No hydronephrosis or delayed nephrogram. 2. Diverticulosis, without acute diverticulitis. No small bowel obstruction. No free intraperitoneal air. 3. Cholecystectomy. Electronically signed by: Bill Maldonado MD 05/21/22 21:57 PM
--- NOTE | 2022-05-21 22:15 | XRay Report ---
SINGLE VIEW CHEST CLINICAL HISTORY: Atypical chest pain. FINDINGS: An AP, portable, upright chest radiograph is compared to study dated 11/20/2021. The examina tion is degraded by portable technique and patient rotation. The cardiomediastinal silhouette is unr emarkable. The lungs and pleural spaces are clear. No pneumothorax is seen. The skeletal structures a re osteopenic. The bony thorax is grossly intact. IMPRESSION: No active disease in the chest. ACT 112: Negative or not required by law. Electronically signed by: Lalito Cisse M.D. 05/21/2022 10:14 PM
[2022-05-21 22:28] LABS: Influenza A virus by PCR Negative (Neg); Influenza B virus by PCR Negative (Neg); RSV by PCR Negative (Neg); SARS CoV2 RNA(COVID-19) Ceph NEGATIVE (Negative)
[2022-05-21] MEDS ORDERED: NovoLIN-R INSULIN PER UNIT CHARGE IV STA (22:48)
[2022-05-21 23:12] LABS: Appearance Urine Clear (Clear); Bacteria Urine Automated Negative (Negative); Bilirubin Urine Negative (Negative); Blood Urine Negative (Negative); Cast Urine Automated 0 /lpf (0-5); Color Urine Yellow; Epithelial Cell Urine Auto >30 /lpf (0-5); Glucose Urine UA 2+ (Negative); Ketones Urine Negative (Negative); Leukocyte Esterase Urine Trace (Negative); Nitrite Urine Negative (Negative); Protein Urine Negative (Negative); RBC Urine Automated 0-4 /hpf (0-4); Specific Gravity Urine 1.014 (1.000-1.030); Urobilinogen Urine Negative (Negative); pH Urine 5.5 (4.5-7.5)
[2022-05-21 23:21] LABS: Base Excess VBG -2.9 mEq/L; HCO3 VBG 24 mmol/L; Oxygen Saturation VBG < 60.0 %; PCO2 VBG 47 mmHg (38-50); PO2 VBG 20 mmHg; pH VBG 7.31 (7.36-7.41)
--- NOTE | 2022-05-21 23:34 | History & Physical Report ---
Date of Service May 21, 2022 Assessment & Plan (1) Chest pain: Plan: 61-year-old female with history of coronary artery disease, hypertension, hyperlipidemia and diabetes presenting with 2 days of left-sided chest discomfort with radiation down the left arm with associated episodic dizziness. Pain is exacerbated by movement and deep breaths, reproducible on exam. Troponin x2 = normal. EKG with no acute ischemic changes Do not strongly suspect cardiac etiology of patient's pain given the duration of symptoms, negative troponins and reproducibility. Telemetry monitoring Lidocaine patch (2) Diabetes type 2, uncontrolled: Plan: Patient with hyperglycemia upon arrival with blood sugar = 365. Also with small anion gap of 12, decrease serum bicarb of 17 and acidemia with pH of 7.31. Bl ood sugar has improved with administration of 1 L of IV fluid. Last check was 159. Patient with longstanding history of medication noncompliance. She was previously followed by endocrinology. She reports compliance with her insulin. Last hemoglobin A1c on 01/26/2022 = 8.1. Lantus 10 units daily with insulin sliding scale -Goal blood sugar [id number]. Consider glycemic management consult if patient's blood sugars are difficult to control Continue Reglan 10 mg p.o. ACHS Repeat BMP to assess anion gap Smoking cessation counseling Patient may benefit from additional diabetes teaching (3) GERD (gastroesophageal reflux disease): Plan: Chronic. Stable. Continue sucralfate 1 g p.o. ACHS Continue Protonix 40 mg p.o. every afternoon Continue Pepcid 20 mg p.o. twice daily (4) Hypothyroidism: Plan: Chronic. Stable. Continue Synthroid 88 mcg p.o. daily (5) CAD (coronary artery disease): Plan: Chronic. Patient with coronary artery stent in place. Troponin x2 = negative, no acute ischemic changes on EKG Continue ticagrelor 90 mg p.o. twice daily Continue Lipitor 80 mg p.o. daily (6) Dyslipidemia: Plan: Chronic. Continue Lipitor 80 mg p.o. daily F/E/NLR at 125 mL/h x 1 L Hypomagnesemia with magnesium = 1.1 Will order 4 g IV with repeat level at 1600 Heart healthy/carb consistent diet as tolerated. Prophylaxisencourage ambulation Codefull per discussion with patient Dispositionobservation to medical telemetry History of Present Illness Chief Complaint: Chest pain Primary Care Provider: Jc Zaman DO Yolanda Lua is a 61-year-old female with history of poorly controlled diabetes, coronary artery disease, hypertension, hyperlipidemia and GERD presenting from home with 2 to 3 days of chest tightness and soreness. Patient reports that she has had constant discomfort in her left chest with radiation down her left arm. She also reports occasional dizziness, diffuse abdominal pain as well as nausea with nonbloody/nonbilious vomiting. Chest discomfort is positional and pleuritic in nature. She denies trauma or recent overuse. No relieving factors identified. In the ER patient afebrile, blood pressure slightly low at 97/65, no respiratory distress. Adequate oxygenation on room air Blood work as below revealed elevated blood glucose at 365 as well as serum bicarbonate of 17 and small anion gap of 12. Blood sugar improved to 159 after administration of 1 L of fluid ER course: Morphine Zofran Normal saline x1 Allergies Allergy/AdvReac Type Severity Reaction Status Date / Time dulaglutide [From Trulicity] AdvReac Intermediate stomach Verified 05/21/22 23:01 pain albiglutide [From Tanzeum] AdvReac Unknown CAN'T Verified 05/21/22 23:01 REMEMBER Home Medications Medication Instructions Recorded Confirmed Type nystatin 100,000 unit/gram topical 1 applic topical BID PRN Skin 08/20/21 05/21/22 History powder Irritation famotidine 20 mg tablet 20 mg PO BID #180 tabs 09/05/21 05/21/22 Rx ticagrelor 90 mg tablet (Brilinta) 90 mg PO BID 90 days #180 tabs 09/05/21 05/21/22 Rx pantoprazole 40 mg tablet,delayed 40 mg PO QPM 09/06/21 05/21/22 History release pen needle, diabetic 32 gauge x #200 ea 09/13/21 05/03/22 Rx 5/32" (BD Ultra-Fine [place] Pen Needle) fluvoxamine 50 mg tablet 50 mg PO BID #60 tabs 09/15/21 05/21/22 Rx sucralfate 1 gram tablet 1 g PO ACHS 30 days #120 tabs 10/03/21 05/21/22 Rx meclizine 25 mg tablet 25 mg PO TID PRN dizziness 10/11/21 05/21/22 History blood-glucose meter (Prodigy 10/15/21 05/03/22 History Autocode Meter kit) levothyroxine 88 mcg tablet 88 mcg PO DAILY #30 tabs 10/15/21 05/21/22 Rx acetaminophen 500 mg tablet 1,000 mg PO TID PRN Pain 01/25/22 05/21/22 History (Tylenol Extra Strength) potassium chloride 20 mEq 40 meq PO QAM #180 tabs 04/08/22 05/21/22 Rx tablet,extended release(part/cryst) atorvastatin 80 mg tablet 80 mg PO QPM #90 tabs 04/09/22 05/21/22 Rx metoclopramide HCl 10 mg tablet 10 mg PO ACHS #120 tabs 04/09/22 05/21/22 Rx betamethasone dipropionate 0.05 % 1 applic topical DIRECTED PRN 05/03/22 05/21/22 History topical cream Skin Irritation hydroxyzine HCl 10 mg tablet 10 mg PO TID PRN anxiety #90 tabs 05/03/22 05/21/22 Rx insulin regular hum U-500 conc 500 10 - 25 unit (0.02 - 0.05 mL) 05/13/22 05/21/22 Rx unit/mL(3 mL) subcut pen (Humulin subcut BID #1 box R U-500 (Conc) Insulin Kwikpen) Past Med/Surg History Medical History Accelerated hypertension Albuminuria Anxiety CAD (coronary artery disease) No remaining occlusive disease after 2 LAD drug eluting stents 10/22/20. Follows with Dr. Harris Chest pain Chronic headaches Depression Diabetes type 2, uncontrolled IDDM Diabetic nephropathy associated with type 2 diabetes mellitus Dyslipidemia Hypertension Hypokalemia Hypomagnesemia Hypothyroidism NSTEMI (non-ST elevated myocardial infarction) 10/22/2020 s/p 2 CHANTAL Obesity Osteoarthritis Tobacco abuse Vulvitis Surgical History History of cardiac catheterization 10/22/2020 Dominant: Right Left Main (% Stenosis): Normal LAD (% Stenosis): Proximal (99) and Mid (75) Circumflex (% Stenosis): Normal (luminal irregularities) RCA (% Stenosis): Normal (Luminal irregularities) 2 CHANTAL to LAD History of cholecystectomy History of dental surgery History of tonsillectomy S/P coronary artery stent placement 2 CHANTAL to LAD 10/22/2020 Family History Unknown Diabetes Thyroid disorder Father Diabetes Other No family history of adverse response to anesthesia Denies family history of Ovarian cancer Prostate cancer Breast cancer Colorectal cancer Uterine cancer Social History Smoking Status: Current every day smoker Tobacco Type: Cigarettes packs per day: 0.5; Cigarettes Per Day: 1/2 pack; Second Hand Exposure: Yes; Hx Alcohol Use: No Hx Substance Use: No Preferred Language: Bahamian Communication Ability: Effective Visual Impairment: No Limitations Field Laborer Required: No Beliefs That Will Affect Care: None marital status: Single Current Living Situation: Alone current occupational status: disabled How many Children do You have: 0 Feels Safe at Home: Yes Safety Concerns Comment: Gets nervous sometimes because she lives alone, gets shaky from anxiety caffeine: Yes Dental Care, Regularly: No Physical Activity Frequency: Does not Exercise Seatbelt Use: always Sunscreen Use: No Assistive Devices: Glasses Review of Systems Review of Systems: All systems reviewed & are unremarkable except as noted in HPI & below Physical Exam Physical Exam: General: Obese female patient resting comfortably, NAD, non-toxic in appearance, AA&O x 4 Skin: warm, dry, intact, no rashes or lesions HEENT: NC/AT, PERRL, EOMI, anicteric sclera, conjunctiva without injection, external ear normal to inspection and nontender, nares patent, moist mucus membranes, dentition intact, no oropharyngeal lesions, neck supple, trachea midline, no LAD, no thyromegaly, no JVD Heart: +S1/S2, regular, no m/r/g, reproducible chest wall pain with palpation, no crepitus or bruising. No skin rash Lungs: equal air entry bilaterally, no rales/rhonchi/wheezes Abd: +BS, soft, NT/ND, no masses/organomegaly/ascites Ext: warm, 2+ pulses in UE/LE bilaterally, no clubbing/cyanosis or edema Neuro: nonfocal, patient AA&O x 4, speech intact, no facial droop, moving all extremities on command with equal strength 5/5 Results & Data Results & Data Vital Signs (Past 12 Hours) Vital Signs Temp Pulse Pulse Resp BP BP Pulse Ox 05/21/22 23:15 75 222/110 H 96 05/21/22 23:00 205/101 H 05/21/22 22:45 80 18 195/99 H 05/21/22 22:05 66 18 97/65 L 100 05/21/22 21:08 74 05/21/22 20:56 98 05/21/22 19:32 36.3 C L 112 H 22 130/86 98 O2 Del Method O2 Flow Rate 05/21/22 23:15 Nasal Cannula 3 05/21/22 23:00 05/21/22 22:45 05/21/22 22:05 Room Air 05/21/22 21:08 05/21/22 20:56 Room Air 05/21/22 19:32 Room Air Laboratory Results Laboratory Results WBC 14.81 K/ul (4.8-10.8) H 05/21/22 20:00 RBC 4.76 M/uL (4.20-5.40) 05/21/22 20:00 Hgb 13.6 g/dl (12.0-16.0) 05/21/22 20:00 Hct 38.8 % (37.0-47.0) 05/21/22 20:00 MCV 81.5 fL (80.0-100.0) 05/21/22 20:00 MCH 28.6 pg (25.0-34.0) 05/21/22 20:00 MCHC 35.1 g/dL (32.0-36.0) 05/21/22 20:00 RDW Std Deviation 36.4 fL (36.4-46.3) 05/21/22 20:00 RDW Coeff of Umair 12.2 % (11.5-14.5) 05/21/22 20:00 Plt Count 234 K/uL (130-400) 05/21/22 20:00 MPV 10.9 fL (9.4-12.4) 05/21/22 20:00 Immature Gran % (Auto) 0.3 % 05/21/22 20:00 Neut % (Auto) 76.6 % 05/21/22 20:00 Lymph % (Auto) 17.0 % 05/21/22 20:00 [place] % (Auto) 4.7 % 05/21/22 20:00 Eos % (Auto) 1.0 % 05/21/22 20:00 Baso % (Auto) 0.4 % 05/21/22 20:00 Neut # (Auto) 11.33 K/uL (1.40-6.50) H 05/21/22 20:00 Lymph # (Auto) 2.52 K/uL (1.2-3.4) 05/21/22 20:00 [place] # (Auto) 0.70 K/uL (0.11-0.59) H 05/21/22 20:00 Eos # (Auto) 0.15 K/uL (0-0.50) 05/21/22 20:00 Baso # (Auto) 0.06 K/uL (0-0.2) 05/21/22 20:00 Immature Gran # (Auto) 0.05 K/uL (0.01-0.20) 05/21/22 20:00 PT 10.4 Seconds (9.0-12.0) 05/21/22 20:00 INR 1.0 (0.9-1.1) 05/21/22 20:00 APTT 24.4 Seconds (21.0-31.0) 05/21/22 20:00 PTT Ratio 0.9 05/21/22 20:00 VBG pH 7.31 (7.36-7.41) L 05/21/22 23:10 VBG pCO2 47 mmHg (38-50) 05/21/22 23:10 VBG pO2 20 mmHg 05/21/22 23:10 VBG HCO3 24 mmol/L 05/21/22 23:10 VBG O2 Saturation < 60.0 % 05/21/22 23:10 VBG Base Excess -2.9 mEq/L 05/21/22 23:10 Sodium 134 mmol/L (136-145) L 05/21/22 23:10 Potassium 3.7 mmol/L (3.5-5.1) 05/21/22 23:10 Chloride 104 mmol/L (98-107) 05/21/22 23:10 Carbon Dioxide 23 mmol/L (21-32) 05/21/22 23:10 Anion Gap 7 (3-11) 05/21/22 23:10 BUN 4 mg/dl (6-23) L 05/21/22 23:10 Creatinine 1.00 mg/dl (0.6-1.2) 05/21/22 23:10 Est Cr Clr Drug Dosing 53.7 ml/min 05/21/22 23:10 Est GFR ( Amer) 69.9 ml/min 05/21/22 23:10 Est GFR (Non-Af Amer) 60.3 ml/min 05/21/22 23:10 BUN/Creatinine Ratio 4.0 (10-20) L 05/21/22 23:10 Glucose 134 mg/dl (70-99(Fasting)) H 05/21/22 23:10 POC Glucose 134 mg/dl (70-99) H 05/22/22 02:07 Calcium 7.6 mg/dl (8.6-10.3) L 05/21/22 23:10 Magnesium 1.1 mg/dl (1.7-2.4) L 05/21/22 23:10 Total Bilirubin 0.4 mg/dl (0.2-1.0) 05/21/22 20:00 AST 11 U/L (13-39) L 05/21/22 20:00 ALT 9 U/L (7-52) 05/21/22 20:00 Alkaline Phosphatase 162 U/L (34-104) H 05/21/22 20:00 Troponin I High Sens 11.2 pg/ml (0-14) 05/21/22 23:10 Total Protein 6.7 gm/dl (6.0-8.3) 05/21/22 20:00 Albumin 3.2 gm/dl (3.4-5.0) L 05/21/22 20:00 Globulin 3.5 gm/dl (2.5-4.0) 05/21/22 20:00 Albumin/Globulin Ratio 0.9 (0.9-2) 05/21/22 20:00 Urine Color Yellow 05/21/22 22:56 Urine Appearance Clear (Clear) 05/21/22 22:56 Urine pH 5.5 (4.5-7.5) 05/21/22 22:56 Ur Specific [place] 1.014 (1.000-1.030) 05/21/22 22:56 Urine Protein Negative (Negative) 05/21/22 22:56 Urine Glucose (UA) 2+ (Negative) H 05/21/22 22:56 Urine Ketones Negative (Negative) 05/21/22 22:56 Urine Blood Negative (Negative) 05/21/22 22:56 Urine Nitrite Negative (Negative) 05/21/22 22:56 Urine Bilirubin Negative (Negative) 05/21/22 22:56 Urine Urobilinogen Negative (Negative) 05/21/22 22:56 Ur Leukocyte Esterase Trace (Negative) H 05/21/22 22:56 Urine WBC (Auto) 1-5 /hpf (0-5) 05/21/22 22:56 Urine RBC (Auto) 0-4 /hpf (0-4) 05/21/22 22:56 U Hyaline Cast (Auto) 0 /lpf (0-5) 05/21/22 22:56 U Epithel Cells (Auto) >30 /lpf (0-5) H 05/21/22 22:56 Urine Bacteria (Auto) Negative (Negative) 05/21/22 22:56 SARS-CoV-2 (PCR) NEGATIVE (Negative) 05/21/22 21:28 Influenza Type A (PCR) Negative (Neg) 05/21/22 21:28 Influenza Type B (PCR) Negative (Neg) 05/21/22 21:28 RSV (RT-PCR) Negative (Neg) 05/21/22 21:28 Impressions Chest X-Ray 05/21/22 19:34 SINGLE VIEW CHEST CLINICAL HISTORY: Atypical chest pain. FINDINGS: An AP, portable, upright chest radiograph is compared to study dated 11/20/2021. The examination is degraded by portable technique and patient rotation. The cardiomediastinal silhouette is unremarkable. The lungs and pleural spaces are clear. No pneumothorax is seen. The skeletal structures are osteopenic. The bony thorax is grossly intact. IMPRESSION: No active disease in the chest. ACT 112: Negative or not required by law. Electronically signed by: Lalito Cisse M.D. 05/21/2022 10:14 PM Abdomen/Pelvis CT 05/21/22 21:16 Exam(s): CT ABDOMEN + PELVIS With Contrast IV Amt: 84ml Optiray 350 EXAM: CT Abdomen and Pelvis With Intravenous Contrast CLINICAL HISTORY: Reason for exam: N/V, mid abd pain. TECHNIQUE: Axial computed tomography images of the abdomen and pelvis with intravenous contrast. Automated exposure control was utilized for the study. A dose lowering technique was utilized adhering to the principles of ALARA. CONTRAST: Patient received 84ml Optiray 350 of IV contrast COMPARISON: No relevant prior studies available. FINDINGS: Lung bases: Unremarkable. No mass. No consolidation. ABDOMEN: Liver: Unremarkable. No mass. Gallbladder and bile ducts: Cholecystectomy. No ductal dilation. Pancreas: Unremarkable. No mass. No ductal dilation. Spleen: Unremarkable. No splenomegaly. Adrenals: Unremarkable. No mass. Kidneys and ureters: Unremarkable. No hydronephrosis or delayed nephrogram. Stomach and bowel: Diverticulosis, without acute diverticulitis. No small bowel obstruction. No free intraperitoneal air. PELVIS: Appendix: No findings to suggest acute appendicitis. Bladder: Unremarkable. No mass. Reproductive: Calcified right uterine fibroid measures 1.6 x 1.8 cm. ABDOMEN and PELVIS: Intraperitoneal space: Unremarkable. No free air. No significant fluid collection. Bones/joints: Degenerative changes of the spine. No acute fracture. No dislocation. Soft tissues: Unremarkable. Vasculature: Atherosclerotic changes of the aorta. No abdominal aortic aneurysm. Lymph nodes: Unremarkable. No enlarged lymph nodes. IMPRESSION: 1. No hydronephrosis or delayed nephrogram. 2. Diverticulosis, without acute diverticulitis. No small bowel obstruction. No free intraperitoneal air. 3. Cholecystectomy. Electronically signed by: Bill Maldonado MD 05/21/22 21:[address] 05/21/22 21:16 Exam(s): CT HEAD Without Contrast EXAM: CT Head Without Intravenous Contrast CLINICAL HISTORY: Reason for exam: CERRATO. TECHNIQUE: Axial computed tomography images of the head/brain without intravenous contrast. Automated exposure control was utilized for the study. A dose lowering technique was utilized adhering to the principles of ALARA. COMPARISON: No relevant prior studies available. FINDINGS: No acute intracranial hemorrhage. No midline shift or mass effect. The [place]-white matter differentiation is maintained throughout. Age-related cerebral volume loss. Periventricular and subcortical white matter hypoattenuation, consistent with chronic microangiopathy. The visualized orbits appear grossly unremarkable. The calvarium is intact. The visualized paranasal sinuses and mastoid air cells are grossly clear. IMPRESSION: No acute intracranial hemorrhage, midline shift, or mass effect. Electronically signed by: Bill Maldonado MD 05/21/22 21:52 PM ECG Additional Comments: EKG by my interpretationstudy reveals normal sinus rhythm at 98 bpm, normal axis, SD = 126, QRS = 68, QTc = 431, some mild inferior T wave deviations, no STEMI PG Care Time/CCT Total # of Minutes Spent Total Time Spent with Patient: Total time spent is greater than 50% in coordination of care (as documented) at patient's floor/unit and/or counseling patient: Coding Level of Care Code 10199 INT INP/OBS CARE 3/75MIN Diagnoses Chest pain R07.9 Diabetes type 2, uncontrolled E11.65 GERD (gastroesophageal reflux disease) K21.9 Hypothyroidism E03.9 CAD (coronary artery disease) I25.10 Coronary Disease-Associated Artery/Lesion type: [place] artery [place] vs. transplanted heart: [place] heart Associated angina: unspecified whether angina present Dyslipidemia E78.5 (5) CAD (coronary artery disease) Coronary Disease-Associated Artery/Lesion type: [place] artery [place] vs. transplanted heart: [place] heart Associated angina: unspecified whether angina present Qualified Code(s): I25.10 - Atherosclerotic heart disease of [place] coronary artery without angina pectoris
[2022-05-22] MEDS ORDERED: GLUCOSE 10 TAB/TUBE PO PRN (00:43)
[2022-05-22] MEDS ORDERED: DEXTROSE 50% 50 ML SYRINGE IV PRN (00:43)
[2022-05-22] MEDS ORDERED: CARBOHYDRATES FOR HYPOGLYCEMIA PO PRN (00:43)
[2022-05-22] MEDS ORDERED: hydrOXYzine HCl 10 MG TAB PO PRN (00:43)
[2022-05-22] MEDS ORDERED: GLUCAGON FOR INJ 1 MG VIAL SQ PRN (00:43)
[2022-05-22] MEDS ORDERED: ONDANSETRON INJ 2 MG/ML 2 ML VIAL IV PRN (00:43)
[2022-05-22] MEDS ORDERED: GLUCOSE 40% GEL 15 GM TUBE PO PRN (00:43)
[2022-05-22 01:15] LABS: Calcium 7.6 mg/dl (8.6-10.3); Creatinine Clr Calc Pharmacy 53.7 ml/min; Est GFR (African American) 69.9 ml/min; Est GFR (Non-African American) 60.3 ml/min; Magnesium 1.1 mg/dl (1.7-2.4); Potassium 3.7 mmol/L (3.5-5.1)
[2022-05-22 01:22] LABS: Troponin I High Sensitivity 11.2 pg/ml (0-14)
[2022-05-22] MEDS: INSULIN ASPART PER UNIT CHARGE SC SCH ×4 (01:49→16:51)
[2022-05-22] MEDS: LACTATED RINGER'S 1,000 ML IV SCH ×2 (03:20→12:42)
[2022-05-22] MEDS: MAGNESIUM SULFATE / D5W 1 GM/100 ML BAG IV SCH ×4 (03:24→09:50)
[2022-05-22 05:02] LABS: Hemoglobin 12.4 g/dl (12.0-16.0); Mean Corpuscular Hemoglobin 28.8 pg (25.0-34.0); Mean Corpuscular Hgb Conc 34.4 g/dL (32.0-36.0); Mean Corpuscular Volume 83.7 fL (80.0-100.0); Platelet Count 200 K/uL (130-400); RDW Coefficient of Variation 12.3 % (11.5-14.5); RDW Standard Deviation 37.4 fL (36.4-46.3); White Blood Count 11.69 K/ul (4.8-10.8)
[2022-05-22 05:03] LABS: Mean Platelet Volume 10.7 fL (9.4-12.4)
[2022-05-22 05:17] LABS: BUN Creatinine Ratio 3.8 (10-20); Calcium 7.7 mg/dl (8.6-10.3); Creatinine Clr Calc Pharmacy 50.7 ml/min; Est GFR (African American) 65.2 ml/min; Est GFR (Non-African American) 56.2 ml/min; Potassium 3.9 mmol/L (3.5-5.1)
[2022-05-22] MEDS: LEVOTHYROXINE SODIUM 88 MCG TABLET PO SCH (06:06)
[2022-05-22] MEDS ORDERED: METOCLOPRAMIDE HCL 10 MG TABLET PO SCH (07:30)
--- NOTE | 2022-05-22 07:45 | Hospitalist Progress Note ---
Date of Service May 22, 2022 Assessment & Plan (1) Chest pain: Plan: 61-year-old female with history of coronary artery disease, hypertension, hyperlipidemia and diabetes presenting with 2 days of left-sided chest discomfort with radiation down the left arm with associated episodic dizziness. Pain is exacerbated by movement and deep breaths, reproducible on exam Troponin x2 = normal. EKG with no acute ischemic changes Do not strongly suspect cardiac etiology of patient's pain given the duration of symptoms, negative troponins and reproducibility, more suspicious of gastroenterologic cause Continue telemetry monitoring and lidocaine patch if helpful, PPI, resume Reglan as I suspect frequent vomiting as contributor to her symptoms (2) Hypotension: Plan: With this symptom of fogginess noted, in the setting of poor oral intake for the last several weeks secondary to ongoing nausea and vomiting Treatment of nausea with Reglan as described With blood pressures as low as 80s systolic, continue IV fluids for this afternoon, feeling a bit better this afternoon than was this morning Patient is not hypoxic so low suspicion of pulmonary embolism but not impossible, could consider CTA of chest to evaluate for PE if this does not improve or has development of hypoxia or hemodynamic instability overnight (3) Diabetes type 2, uncontrolled: Plan: Patient with hyperglycemia upon arrival with blood sugar = 365. Also with small anion gap of 12, decrease serum bicarb of 17 and acidemia with pH of 7.31. Blood sugar improved with IV fluids and insulin With known history of gastroparesis, resume Reglan given epigastric tenderness/volume contraction secondary to ongoing vomiting Last hemoglobin A1c on 01/26/2022 = 8.1 Lantus 10 units daily with insulin sliding scale tobacco educator consulted, diabetic diet Glycemic management also consulted to assist with insulin adjustments given uncontrolled diabetes (4) GERD (gastroesophageal reflux disease): Plan: Continue sucralfate 1 g p.o. ACHS Continue Protonix 40 mg p.o. increased to twice daily Continue Pepcid 20 mg p.o. twice daily (5) Hypothyroidism: Plan: Chronic. Stable. Continue Synthroid 88 mcg p.o. daily (6) CAD (coronary artery disease): Plan: Chronic. Patient with coronary artery stent in place. Troponin x2 = negative, no acute ischemic changes on EKG Continue ticagrelor 90 mg p.o. twice daily Continue Lipitor 80 mg p.o. daily (7) Dyslipidemia: Plan: Chronic. Continue Lipitor 80 mg p.o. daily Plan Encourage oral fluids at this point, will also have received a total of 2 L LR IV to this afternoon, continue to monitor blood pressure Hypomagnesemia with magnesium = magnesium was 1.1 in the setting of frequent vomiting, repleted with 4 g IV Heart healthy/carb consistent diet as tolerated DVT prophylaxisencourage ambulation Codef[place] per discussion with patient Admission and Anticipated Discharge Date Admission Date: May 21, 2022 Subjective Patient without any acute events overnight, some lower blood pressures in the 80s to 90s systolic with some associated "fogginess" feeling per patient. No trouble breathing, no nausea, no lightheadedness like she is going to pass out. She notes that her Reglan was stopped a few weeks ago, and since that time she has had vomiting about twice a day, difficulty with keeping food and fluids down at times. Review of Systems Review of Systems: All systems reviewed & are unremarkable except as noted in Subjective Physical Exam Constitutional: WD/WN, vitals as above Respiratory: normal respiratory effort, lungs clear to auscultation Cardiovascular: RRR, no murmur, no edema Gastrointestinal (Abdomen): Abdomen soft, nondistended, with epigastric tenderness noted Skin: no rashes, warm and dry Psychiatric: A+Ox3, euthymic affect Results & Data Results & Data Vital Signs (Past 12 Hours) Vital Signs Pulse Pulse Resp BP Pulse Ox O2 Del Method 05/22/22 07:08 59 L 05/22/22 06:00 57 L 16 81/56 L 97 Room Air 05/22/22 03:01 59 L 16 99/78 L 97 Room Air 05/22/22 02:56 66 16 93/63 L 92 Room Air 05/22/22 02:30 60 16 107/64 100 Room Air 05/22/22 01:07 62 05/22/22 00:00 65 18 90/62 L 98 Room Air 05/21/22 22:05 66 18 97/65 L 100 Room Air 05/21/22 21:08 74 05/21/22 20:56 98 Room Air PG Care Time/CCT Total # of Minutes Spent Total Time Spent with Patient: Total time spent is greater than 50% in coordination of care (as documented) at patient's floor/unit and/or counseling patient: Coding Level of Care Code 85000 SUB INP/OBS CARE 3/50MIN Diagnoses Chest pain R07.9 Hypotension I95.9 Diabetes type 2, uncontrolled E11.65 GERD (gastroesophageal reflux disease) K21.9 Hypothyroidism E03.9 CAD (coronary artery disease) I25.10 Associated angina: unspecified whether angina present Coronary Disease-Associated Artery/Lesion type: [place] artery [place] vs. transplanted heart: [place] heart Dyslipidemia E78.5 (6) CAD (coronary artery disease) Associated angina: unspecified whether angina present Coronary Disease- Associated Artery/Lesion type: [place] artery [place] vs. transplanted heart: [place] heart Qualified Code(s): I25.10 - Atherosclerotic heart disease of [place] coronary artery without angina pectoris
[2022-05-22] MEDS ORDERED: LACTATED RINGER'S 1,000 ML IV ONE (08:33)
[2022-05-22] MEDS: fluvoxaMINE MALEATE 50 MG TAB PO SCH ×2 (09:16→21:11)
[2022-05-22] MEDS: SUCRALFATE 1 GM TAB PO SCH ×4 (09:17→21:11)
[2022-05-22] MEDS: FAMOTIDINE 20 MG TAB PO SCH ×2 (09:17→21:11)
[2022-05-22] MEDS: NICOTINE 7 MG/24 HR TDSY TD SCH (09:17)
[2022-05-22] MEDS: TICAGRELOR 90 MG TAB PO SCH ×2 (09:17→21:11)
[2022-05-22] MEDS: LIDOCAINE 5% 1 PATCH TD SCH (09:18)
[2022-05-22] MEDS: LANTUS PER UNIT CHARGE SQ SCH (09:20)
--- NOTE | 2022-05-22 10:05 | Electrocardiogram Report ---
Test Reason : Blood Pressure : / mmHG Vent. Rate : 098 BPM Atrial Rate : 098 BPM P-R Int : 126 ms QRS Dur : 068 ms QT Int : 338 ms P-R-T Axes : 047 048 023 degrees QTc Int : 431 ms Normal sinus rhythm Left atrial enlargement Diffuse Nonspecific T wave abnormality Abnormal ECG When compared with ECG of 26-JAN-2022 00:14, Vent. rate has increased BY 39 BPM Nonspecific T wave abnormality, improved in Anterior leads Confirmed by Garcia Harris ([id number]) on 05/22/2022 10:05:14 AM Referred By: REFERRED SELF Confirmed By:Garcia Harris
[2022-05-22] MEDS ORDERED: OPTIRAY 320 500ml IV ONE (10:32)
--- NOTE | 2022-05-22 10:55 | CT Scan Report ---
CTA ANGIOGRAPHY OF THE HEAD CLINICAL HISTORY: Hypotensive, lightheaded. COMPARISON STUDY: Head CT May 21, 2022. MRI of the brain September 08, 2021. TECHNIQUE: Helical axial images of the head were obtained following uneventful intravenous administr ation of 120 cc of Optiray. Sagittal and coronal reconstructions were viewed as well as maximal inten sity projections on an independent 3-D workstation. Automated exposure control was utilized for the study. A dose lowering technique was utilized adhering to the principles of ALARA. CT DOSE: 123.53 mGy.cm FINDINGS: Ventricular system is unremarkable. Basal cisterns are patent. There are no extraaxial nichole ections. No acute hemorrhage is identified on this contrast enhanced exam. Opacified left posterior e thmoid air cells present. The bilateral M1, M2, A1 and A2 segment are patent. There is moderate calci fied plaque within the bilateral cavernous carotids without significant stenosis. Anterior circulatio n is intact. There is no central vessel occlusion. 2 anterior communicating arteries are incidentally noted. There is a left posterior communicating artery. Posterior circulation is intact. No intracran ial aneurysm. No dissection is present. Major dural sinuses are patent. IMPRESSION: No intracranial aneurysm. No central vessel occlusion. ACT 112: Negative or not required by law. Electronically signed by: Nahun Odell M.D. 05/22/2022 10:53 AM
[2022-05-22] MEDS: METOCLOPRAMIDE HCL 10 MG TABLET PO SCH ×3 (12:42→21:11)
[2022-05-22] MEDS ORDERED: PHARMACY GLYCEMIC MGMT CONSULT PRN (15:42)
[2022-05-22] MEDS ORDERED: PANTOprazole 40 MG TAB PO SCH (21:00)
[2022-05-22] MEDS: ATORVASTATIN 40 MG TAB PO SCH (21:10)
[2022-05-22] MEDS: PANTOprazole 40 MG TAB PO SCH (21:11)
[2022-05-23] MEDS: INSULIN ASPART PER UNIT CHARGE SC SCH ×5 (00:21→20:05)
[2022-05-23] MEDS: LEVOTHYROXINE SODIUM 88 MCG TABLET PO SCH (05:41)
[2022-05-23] MEDS: LIDOCAINE 5% 1 PATCH TD SCH (08:34)
[2022-05-23] MEDS: TICAGRELOR 90 MG TAB PO SCH ×2 (08:35→20:57)
[2022-05-23] MEDS: METOCLOPRAMIDE HCL 10 MG TABLET PO SCH ×4 (08:35→20:55)
[2022-05-23] MEDS: FAMOTIDINE 20 MG TAB PO SCH ×2 (08:36→20:54)
[2022-05-23] MEDS: PANTOprazole 40 MG TAB PO SCH ×2 (08:39→20:56)
[2022-05-23] MEDS: fluvoxaMINE MALEATE 50 MG TAB PO SCH ×2 (08:39→20:54)
[2022-05-23] MEDS: NICOTINE 7 MG/24 HR TDSY TD SCH (08:39)
[2022-05-23] MEDS: SUCRALFATE 1 GM TAB PO SCH ×4 (08:39→20:56)
[2022-05-23] MEDS: LANTUS PER UNIT CHARGE SQ SCH (08:51)
--- NOTE | 2022-05-23 13:23 | Pharmacy Report ---
Pharmacy Glycemic Short Note 2 - Date of Service May 23, 2022 - Glycemic Short BSG Results (Last 24 hours): 05/22/22 05/22/22 05/22/22 16:18 20:07 20:54 POC Glucose 189 H 99 98 05/22/22 05/23/22 05/23/22 22:46 02:41 07:40 POC Glucose 133 H 131 H 121 H 05/23/22 11:13 POC Glucose 165 H OUTPATIENT ANTIDIABETIC REGIMEN: * U-500 10 units (3pm), 5 units @ 12 AM reported * A1c pending ASSESSMENT: * BSGs have been stable, Fasting 121 mg/dL today- will continue 10 units of lantus QAM * Per discussion with clinical educator, patient is fearful of hypoglycemia therefore will adjust goal range to 140-180 mg/dL and add overnight checks * Patient has been achieving this goal today. will continue current novolog parameters PLAN FOR INPATIENT GLYCEMIC CONTROL: * Hold outpatient oral diabetes medications * Basal insulin * Lantus 10 units SQ * Bolus insulin * NovoLog per scale ACHS or Q6hrs while NPO * Goal Range: Low 140 mg/dL - High 180 mg/dL * Correction Factor: 30 mg/dL/unit * Nutritional / Prandial insulin per carb ratio of 1 unit per 10 grams CHO consumed
[2022-05-23] MEDS: ACETAMINOPHEN 500 MG TAB PO PRN (13:35)
--- NOTE | 2022-05-23 17:44 | Hospitalist Progress Note ---
Date of Service May 23, 2022 Assessment & Plan (1) Chest pain: Plan: 61-year-old female with history of coronary artery disease, hypertension, hyperlipidemia and diabetes presenting with 2 days of left-sided chest discomfort with radiation down the left arm with associated episodic dizziness. Pain is exacerbated by movement and deep breaths, reproducible on exam Troponin x2 = normal. EKG with no acute ischemic changes Do not strongly suspect cardiac etiology of patient's pain given the duration of symptoms, negative troponins and reproducibility, more suspicious of gastroenterologic cause Continue telemetry monitoring and lidocaine patch if helpful, PPI, resume Reglan as I suspect frequent vomiting as contributor to her symptoms (2) Hypotension: Plan: With this symptom of fogginess noted, in the setting of poor oral intake for the last several weeks secondary to ongoing nausea and vomiting Treatment of nausea with Reglan as described Patient complains of feeling dizzy Ordered orthostatic vital signs Could be secondary to benign positional vertigo as she is describing vertiginous symptoms. Consult PT/OT. (3) Diabetes type 2, uncontrolled: Plan: Patient with hyperglycemia upon arrival with blood sugar = 365. Also with small anion gap of 12, decrease serum bicarb of 17 and acidemia with pH of 7.31. Blood sugar improved with IV fluids and insulin With known history of gastroparesis, resume Reglan given epigastric tenderness/volume contraction secondary to ongoing vomiting Last hemoglobin A1c on 01/26/2022 = 8.1 Lantus 10 units daily with insulin sliding scale clinical unit educator consulted, diabetic diet Glycemic management also consulted to assist with insulin adjustments given uncontrolled diabetes (4) GERD (gastroesophageal reflux disease): Plan: Continue sucralfate 1 g p.o. ACHS Continue Protonix 40 mg p.o. increased to twice daily Continue Pepcid 20 mg p.o. twice daily (5) Hypothyroidism: Plan: Chronic. Stable. Continue Synthroid 88 mcg p.o. daily (6) CAD (coronary artery disease): Plan: Chronic. Patient with coronary artery stent in place. Troponin x2 = negative, no acute ischemic changes on EKG Continue ticagrelor 90 mg p.o. twice daily Continue Lipitor 80 mg p.o. daily (7) Dyslipidemia: Plan: Chronic. Continue Lipitor 80 mg p.o. daily Plan Encourage oral fluids at this point, will also have received a total of 2 L LR IV to this afternoon, continue to monitor blood pressure Hypomagnesemia with magnesium = magnesium was 1.1 in the setting of frequent vomiting, repleted with 4 g IV improved with repletion Heart healthy/carb consistent diet as tolerated DVT prophylaxisencourage ambulation Codefull per discussion with patient Admission and Anticipated Discharge Date Admission Date: May 23, 2022 Subjective Patient complains of feeling like the room is spinning around her. She feels worse when she moves. She felt that sensation more when she sat up. Lying in bed, she still feels it specially when she moves from head from side to side. Review of Systems Review of Systems: All systems reviewed & are unremarkable except as noted in Subjective Physical Exam Physical Exam: General: Awake, conversant Heart: S1, S2/regular rate and rhythm, no murmur rubs or gallops Lungs: Clear to auscultation bilaterally. Normal effort Abdomen: Soft/nontender/nondistended. No hepatosplenomegaly Extremities: No clubbing/cyanosis. No edema Behavior: Appropriate, cooperative Results & Data Results & Data Vital Signs (Past 12 Hours) Vital Signs Temp Pulse Pulse Resp BP Pulse Ox O2 Del Method 05/23/22 15:29 60 05/23/22 12:18 36.8 C 59 L 17 98/65 L 96 Room Air 05/23/22 10:42 56 L 05/23/22 08:32 36.6 C 59 L 18 114/69 96 Room Air Laboratory Results Abnormal lab results 05/22/22 05/23/22 05/23/22 Range/Units 22:46 02:41 07:40 POC Glucose 133 H 131 H 121 H (70-99) mg/dl 05/23/22 05/23/22 Range/Units 11:13 16:22 POC Glucose 165 H 136 H (70-99) mg/dl PG Care Time/CCT Total # of Minutes Spent Total Time Spent with Patient: Total time spent is greater than 50% in coordination of care (as documented) at patient's floor/unit and/or counseling patient: Coding Level of Care Code 31828 SUB INP/OBS CARE 2/35MIN Diagnoses Chest pain R07.9 Hypotension I95.9 Diabetes type 2, uncontrolled E11.65 GERD (gastroesophageal reflux disease) K21.9 Hypothyroidism E03.9 CAD (coronary artery disease) I25.10 Coronary Disease-Associated Artery/Lesion type: [place] artery [place] vs. transplanted heart: [place] heart Associated angina: unspecified whether angina present Dyslipidemia E78.5 (6) CAD (coronary artery disease) Coronary Disease-Associated Artery/Lesion type: [place] artery [place] vs. transplanted heart: [place] heart Associated angina: unspecified whether angina present Qualified Code(s): I25.10 - Atherosclerotic heart disease of [place] coronary artery without angina pectoris
[2022-05-23] MEDS: ATORVASTATIN 40 MG TAB PO SCH (20:53)
[2022-05-24] MEDS: INSULIN ASPART PER UNIT CHARGE SC SCH ×6 (00:37→20:43)
[2022-05-24] MEDS: LEVOTHYROXINE SODIUM 88 MCG TABLET PO SCH (05:46)
[2022-05-24] MEDS: SUCRALFATE 1 GM TAB PO SCH ×4 (07:10→20:50)
[2022-05-24 07:39] LABS: Estimated Average Glucose 237 mg/dl; Hemoglobin A1C 9.9 % (4.5-5.6)
[2022-05-24] MEDS: NICOTINE 7 MG/24 HR TDSY TD SCH (07:56)
[2022-05-24] MEDS: TICAGRELOR 90 MG TAB PO SCH ×2 (07:57→20:49)
[2022-05-24] MEDS: FAMOTIDINE 20 MG TAB PO SCH ×2 (07:57→20:46)
[2022-05-24] MEDS: METOCLOPRAMIDE HCL 10 MG TABLET PO SCH ×4 (07:57→20:47)
[2022-05-24] MEDS: PANTOprazole 40 MG TAB PO SCH ×2 (07:57→20:48)
[2022-05-24] MEDS: fluvoxaMINE MALEATE 50 MG TAB PO SCH ×2 (07:58→20:47)
[2022-05-24] MEDS: LIDOCAINE 5% 1 PATCH TD SCH ×2 (08:01→08:34)
[2022-05-24] MEDS: LANTUS PER UNIT CHARGE SQ SCH (08:28)
--- NOTE | 2022-05-24 13:53 | Pharmacy Report ---
Pharmacy Glycemic Short Note 2 - Date of Service May 24, 2022 - Glycemic Short BSG Results (Last 24 hours): 05/23/22 05/23/22 05/24/22 16:22 20:01 00:07 POC Glucose 136 H 115 H 202 H 05/24/22 05/24/22 05/24/22 04:09 07:27 11:23 POC Glucose 96 168 H 185 H OUTPATIENT ANTIDIABETIC REGIMEN: * U-500 10 units (3pm), 5 units @ 12 AM reported * A1c 9.9% 05/24/22 ASSESSMENT: 05/24 * Patient received 20 units of insulin yesterday, 10 units of basal + 10 units of novolog * BSGs tending somewhat upward but acceptable with new goal range. * Continue current dosing for now 05/23 * BSGs have been stable, Fasting 121 mg/dL today- will continue 10 units of lantus QAM * Per discussion with hospice educator, patient is fearful of hypoglycemia therefore will adjust goal range to 140-180 mg/dL and add overnight checks * Patient has been achieving this goal today. will continue current novolog parameters PLAN FOR INPATIENT GLYCEMIC CONTROL: * Hold outpatient oral diabetes medications * Basal insulin * Lantus 10 units SQ qAM * Bolus insulin * NovoLog per scale ACHS or Q6hrs while NPO * Goal Range: Low 140 mg/dL - High 180 mg/dL * Correction Factor: 30 mg/dL/unit * Nutritional / Prandial insulin per carb ratio of 1 unit per 10 grams CHO consumed
--- NOTE | 2022-05-24 14:18 | Hospitalist Progress Note ---
Date of Service May 24, 2022 Assessment & Plan (1) Chest pain: Plan: 61-year-old female with history of coronary artery disease, hypertension, hyperlipidemia and diabetes presenting with 2 days of left-sided chest discomfort with radiation down the left arm with associated episodic dizziness. Pain is exacerbated by movement and deep breaths, reproducible on exam Troponin x2 = normal. EKG with no acute ischemic changes Do not strongly suspect cardiac etiology of patient's pain given the duration of symptoms, negative troponins and reproducibility, more suspicious of gastroenterologic cause Continue telemetry monitoring and lidocaine patch if helpful, PPI, resume Reglan as I suspect frequent vomiting as contributor to her symptoms (2) Hypotension: Plan: With this symptom of fogginess noted, in the setting of poor oral intake for the last several weeks secondary to ongoing nausea and vomiting Treatment of nausea with Reglan as described Not hypotensive anymore Patient complains of feeling dizzy Orthostatic vital signs are negative Could be secondary to benign positional vertigo as she is describing vertiginous symptoms. Consult PT/OT. (3) Diabetes type 2, uncontrolled: Plan: Patient with hyperglycemia upon arrival with blood sugar = 365. Also with small anion gap of 12, decrease serum bicarb of 17 and acidemia with pH of 7.31. Blood sugar improved with IV fluids and insulin With known history of gastroparesis, resume Reglan given epigastric tenderness/volume contraction secondary to ongoing vomiting Last hemoglobin A1c on 01/26/2022 = 8.1 Lantus 10 units daily with insulin sliding scale agriculture consultant consulted, diabetic diet Glycemic management also consulted to assist with insulin adjustments given uncontrolled diabetes (4) GERD (gastroesophageal reflux disease): Plan: Continue sucralfate 1 g p.o. ACHS Continue Protonix 40 mg p.o. increased to twice daily Continue Pepcid 20 mg p.o. twice daily (5) Hypothyroidism: Plan: Chronic. Stable. Continue Synthroid 88 mcg p.o. daily (6) CAD (coronary artery disease): Plan: Chronic. Patient with coronary artery stent in place. Troponin x2 = negative, no acute ischemic changes on EKG Continue ticagrelor 90 mg p.o. twice daily Continue Lipitor 80 mg p.o. daily (7) Dyslipidemia: Plan: Chronic. Continue Lipitor 80 mg p.o. daily Plan Encourage oral fluids at this point, will also have received a total of 2 L LR IV to this afternoon, continue to monitor blood pressure Hypomagnesemia with magnesium = magnesium was 1.1 in the setting of frequent vomiting, repleted with 4 g IV improved with repletion Heart healthy/carb consistent diet as tolerated DVT prophylaxisencourage ambulation Codefull per discussion with patient Disposition: Discharge soon once patient speaks to social problems specialist about her preferences for rehab Admission and Anticipated Discharge Date Admission Date: May 23, 2022 Subjective Patient feels well. Still complains of "dizziness" but essentially she is describing symptoms of vertigo Review of Systems Review of Systems: All systems reviewed & are unremarkable except as noted in Subjective Physical Exam Physical Exam: General: Awake, conversant Heart: S1, S2/regular rate and rhythm, no murmur rubs or gallops Lungs: Clear to auscultation bilaterally. Normal effort Abdomen: Soft/nontender/nondistended. No hepatosplenomegaly Extremities: No clubbing/cyanosis. No edema Behavior: Appropriate, cooperative Results & Data Results & Data Vital Signs (Past 12 Hours) Vital Signs Temp Pulse Resp BP Pulse Ox Pulse Ox O2 Del Method 05/24/22 13:36 98 05/24/22 11:24 36.6 C 61 18 118/72 95 Room Air 05/24/22 09:00 Room Air 05/24/22 07:37 36.6 C 55 L 16 104/66 95 Room Air 05/24/22 04:12 36.6 C 58 L 18 98/61 L 95 Room Air O2 Flow Rate 05/24/22 13:36 0 05/24/22 11:24 05/24/22 09:00 05/24/22 07:37 05/24/22 04:12 PG Care Time/CCT Total # of Minutes Spent Total Time Spent with Patient: Total time spent is greater than 50% in coordination of care (as documented) at patient's floor/unit and/or counseling patient: Coding Level of Care Code 86914 SUB INP/OBS CARE 2/35MIN Diagnoses Chest pain R07.9 Hypotension I95.9 Diabetes type 2, uncontrolled E11.65 GERD (gastroesophageal reflux disease) K21.9 Hypothyroidism E03.9 CAD (coronary artery disease) I25.10 Associated angina: unspecified whether angina present Coronary Disease-Associated Artery/Lesion type: [place] artery [place] vs. transplanted heart: [place] heart Dyslipidemia E78.5 (6) CAD (coronary artery disease) Associated angina: unspecified whether angina present Coronary Disease- Associated Artery/Lesion type: [place] artery [place] vs. transplanted heart: [place] heart Qualified Code(s): I25.10 - Atherosclerotic heart disease of [place] coronary artery without angina pectoris
[2022-05-24] MEDS: ACETAMINOPHEN 500 MG TAB PO PRN (20:44)
[2022-05-24] MEDS: ATORVASTATIN 40 MG TAB PO SCH (20:45)
[2022-05-25] MEDS: INSULIN ASPART PER UNIT CHARGE SC SCH ×3 (00:12→08:24)
[2022-05-25] MEDS: LEVOTHYROXINE SODIUM 88 MCG TABLET PO SCH (05:08)
[2022-05-25] MEDS: LANTUS PER UNIT CHARGE SQ SCH (08:25)
[2022-05-25] MEDS: NICOTINE 7 MG/24 HR TDSY TD SCH (08:25)
[2022-05-25] MEDS: SUCRALFATE 1 GM TAB PO SCH (08:27)
[2022-05-25] MEDS: PANTOprazole 40 MG TAB PO SCH (08:27)
[2022-05-25] MEDS: fluvoxaMINE MALEATE 50 MG TAB PO SCH (08:27)
[2022-05-25] MEDS: FAMOTIDINE 20 MG TAB PO SCH (08:27)
[2022-05-25] MEDS: METOCLOPRAMIDE HCL 10 MG TABLET PO SCH (08:27)
[2022-05-25] MEDS: LIDOCAINE 5% 1 PATCH TD SCH (08:28)
[2022-05-25] MEDS: TICAGRELOR 90 MG TAB PO SCH (08:28)
--- NOTE | 2022-05-25 09:33 | Discharge Summary ---
Date of Service May 25, 2022 Admission HPI Per Admitting Provider Yolanda Lua is a 61-year-old female with history of poorly controlled diabetes, coronary artery disease, hypertension, hyperlipidemia and GERD presenting from home with 2 to 3 days of chest tightness and soreness. Patient reports that she has had constant discomfort in her left chest with radiation down her left arm. She also reports occasional dizziness, diffuse abdominal pain as well as nausea with nonbloody/nonbilious vomiting. Chest discomfort is positional and pleuritic in nature. She denies trauma or recent overuse. No relieving factors identified. In the ER patient afebrile, blood pressure slightly low at 97/65, no respiratory distress. Adequate oxygenation on room air Blood work as below revealed elevated blood glucose at 365 as well as serum bicarbonate of 17 and small anion gap of 12. Blood sugar improved to 159 after administration of 1 L of fluid ER course: Morphine Zofran Normal saline x1 Principal Diagnosis Uncontrolled gastroparesis leading to nausea, vomiting, epigastric pain Musculoskeletal chest pain likely secondary to vomiting Poorly controlled diabetes mellitus Discharge Exam General: Awake, conversant Heart: S1, S2/regular rate and rhythm, no murmur rubs or gallops Lungs: Clear to auscultation bilaterally. Normal effort Abdomen: Soft/nontender/nondistended. No hepatosplenomegaly Extremities: No clubbing/cyanosis. No edema Behavior: Appropriate, cooperative Discharge Data Allergies Allergy/AdvReac Type Severity Reaction Status Date / Time dulaglutide [From Trulicity] AdvReac Intermediate stomach Verified 05/21/22 23:01 pain albiglutide [From Tanzeum] AdvReac Unknown CAN'T Verified 05/21/22 23:01 REMEMBER Consultations 05/21/22 23:00 ED Decision to Admit Stat Ordered Studies 05/21/22 21:16 CT Abd and Pelvis [CT abd pelvis IV con only] Stat CT head/brain wo con Stat 05/22/22 08:36 CT angio head w con Stat Diabetes Follow up Diabetes Follow-up Needed for HgbA1c >9% Hospital Course (1) Chest pain: 61-year-old female with history of coronary artery disease, hypertension, hyperlipidemia and diabetes presenting with 2 days of left-sided chest discomfort with radiation down the left arm with associated episodic dizziness. Pain is exacerbated by movement and deep breaths, reproducible on exam Troponin x2 = normal. EKG with no acute ischemic changes Do not strongly suspect cardiac etiology of patient's pain given the duration of symptoms, negative troponins and reproducibility, more suspicious of gastroenterologic or musculoskeletal cause resumed Reglan as I suspect frequent vomiting as contributor to her symptoms (2) Hypotension: With this symptom of fogginess noted, in the setting of poor oral intake for the last several weeks secondary to ongoing nausea and vomiting Resolved Treatment of nausea with Reglan as described Not hypotensive anymore Patient complains of feeling dizzy Orthostatic vital signs are negative Could be secondary to benign positional vertigo as she is describing vertiginous symptoms. Consult PT/OT. (3) Diabetes type 2, uncontrolled: Patient with hyperglycemia upon arrival with blood sugar = 365. Also with small anion gap of 12, decrease serum bicarb of 17 and acidemia with pH of 7.31. Blood sugar improved with IV fluids and insulin With known history of gastroparesis, resume Reglan given epigastric tenderness/volume contraction secondary to ongoing vomiting A1c was 9.9 on 05/24 Patient was started on Lantus 10 units daily with insulin sliding scale. She is being discharged on 10 units of Lantus. She will need to see diabetes education and endocrinology outpatient for better glycemic control. Patient says that she is afraid to take full dose of her insulin because of fear of hypoglycemia. She was given Lantus 10 units with good control of blood sugar here in the hospital. agricultural extension educator consulted, diabetic diet (4) GERD (gastroesophageal reflux disease): Continue sucralfate 1 g p.o. ACHS Continue Protonix 40 mg p.o. increased to twice daily Continue Pepcid 20 mg p.o. twice daily (5) Hypothyroidism: Chronic. Stable. Continue Synthroid 88 mcg p.o. daily (6) CAD (coronary artery disease): Chronic. Patient with coronary artery stent in place. Troponin x2 = negative, no acute ischemic changes on EKG Continue ticagrelor 90 mg p.o. twice daily Continue Lipitor 80 mg p.o. daily (7) Dyslipidemia: Chronic. Continue Lipitor 80 mg p.o. daily Plan Hypomagnesemia with magnesium = magnesium was 1.1 in the setting of frequent vomiting, repleted with 4 g IV improved with repletion Heart healthy/carb consistent diet as tolerated DVT prophylaxisencourage ambulation Codefull Disposition: Discharge today to rehab Total Time Total Time Spent Total Time Spent (In Minutes): 35 Discharge Plan Discharge Items Patient Disposition: Transfer Residential Fac Reason For Visit: CHEST PAIN Discharge Diagnosis: Uncontrolled gastroparesis leading to vomiting and epigastric tenderness Activity: Resume your previous activity Non-emergency contact: Primary Care Provider Call non-emergency contact if: you have any medication questions and your symptoms worsen Follow-up/Referrals: Ashlee Gray, ROSINA, LDN, CDE [Registered Dietitian] - 06/14/22 1:30 pm Jc Zaman, [Primary Care Provider] - Diet: Carb Consistent or DM2 Addtl Attending Provider Instructions: Advised to follow-up with PCP in 1 week Pending Studies at Discharge: No Stand-Alone Forms: My [facility] [place] Skilled Items Patient informed of condition?: Yes DNR: No Discharge Level of Care: Skilled Communicable Disease: No Discharge Prognosis: Stable Lines: None Urinary Catheter: No Medications and DC Order Prescriptions: New metoclopramide HCl 10 mg Tablet 10 mg PO ACHS 30 Days Qty: 120 0RF insulin glargine [Lantus U-100 Insulin] 100 unit/mL Solution 10 unit subcut DAILY Qty: 10 0RF Continued famotidine 20 mg tablet 20 mg PO BID Qty: 180 3RF Rx Instructions: TAKES AT 1600 & 2400 Brilinta 90 mg tablet 90 mg PO BID 90 Days Qty: 180 3RF Patient Comments: "I dont know this medications." Rx Instructions: TAKES 1600 & 2400 (DME) pen needle, diabetic [BD Ultra-Fine [place] Pen Needle] 32 gauge x 5/32" needle See Dose Instructions .ROUTE .MEDSUPPLY Qty: 200 11RF Dose Instruction: As directed Rx Instructions: use 2 times daily or as directed by physician to monitor blood sugar sucralfate 1 gram tablet 1 g PO ACHS 30 Days Qty: 120 3RF potassium chloride 20 mEq tablet,ER particles/crystals 40 meq PO QAM Qty: 180 1RF metoclopramide HCl 10 mg tablet 10 mg PO ACHS Qty: 120 3RF Hold Instructions: Needs appointment/Drug induced tremor Rx Instructions: ON HOLDfor your nausea and gastroparesis atorvastatin 80 mg tablet 80 mg PO QPM Qty: 90 3RF (DME) blood-glucose meter [Prodigy Autocode Meter] Kit See Rx Instructions .Route Rx Instructions: As directed levothyroxine 88 mcg tablet 88 mcg PO DAILY Qty: 30 5RF betamethasone dipropionate 0.05 % cream 1 applic topical DIRECTED PRN (Reason: Skin Irritation) hydroxyzine HCl 10 mg tablet 10 mg PO TID PRN (Reason: anxiety) Qty: 90 2RF meclizine 25 mg tablet 25 mg PO TID PRN (Reason: dizziness) Rx Instructions: for your dizziness nystatin 100,000 unit/gram powder 1 applic topical BID PRN (Reason: Skin Irritation) pantoprazole 40 mg tablet,delayed release (DR/EC) 40 mg PO QPM fluvoxamine 50 mg tablet 50 mg PO BID Qty: 60 0RF acetaminophen [Tylenol Extra Strength] 500 mg tablet 1,000 mg PO TID PRN (Reason: Pain) Rx Instructions: OTC Discontinued Humulin R U-500 (Conc) Kwikpen 500 unit/mL (3 mL) insulin pen 10 - 25 unit subcut BID Qty: 1 0RF Rx Instructions: 10 units AM (~3pm) and 5 units PM (12am) Discharge Orders: Discharge Order (Routine); Ordered 05/25/22 Ordered By: Chinedu Brink Admission Data Admit Date/Time: 05/23/22 14:05 Attending Provider: Chiendu Brink Admit Provider: Angela Kraus Primary Care Provider: Jc Zaman Other Providers: Angela Kraus ; [facility] Other Interventions: Discharge Summary Assessment (RN) Last Done: 05/25/22 09:49 Coding Level of Care Code 09051 INP/OBS DISCH >30 MIN Diagnoses Chest pain R07.9 Hypotension I95.9 Diabetes type 2, uncontrolled E11.65 GERD (gastroesophageal reflux disease) K21.9 Hypothyroidism E03.9 CAD (coronary artery disease) I25.10 Associated angina: unspecified whether angina present Coronary Disease-Associated Artery/Lesion type: [place] artery [place] vs. transplanted heart: [place] heart Dyslipidemia E78.5
== END 2022-05-25 11:46 | DRG 74 ==
LOC: EDINP 19:30 → ED 19:30 → SUATTDRO 23:33 → 2W 05-22 00:43

== ENCOUNTER 2022-09-07 16:59 | Inpatient (IN) ==
[2022-09-07] MEDS ORDERED: METOCLOPRAMIDE HCL INJ 5 MG/ML 2 ML VIAL IV STA (17:23)
[2022-09-07] MEDS ORDERED: SODIUM CHLORIDE 0.9% 1000ML 1,000 ML IV SCH (17:30)
--- NOTE | 2022-09-07 17:31 | Emergency Department Note ---
Impression & Plan Nausea, Hyperglycemia, Hypokalemia, Hypomagnesemia, Proctocolitis ED Provider Note Provider: Mundo Rojas MD DATE OF SERVICE: 09/07/2022 CHIEF COMPLAINT: Abdominal pain, dizziness, vomiting HISTORY OF PRESENT ILLNESS: Patient is a 61-year-old female history of poorly controlled diabetes, CAD, hypertension, GERD presenting here today reporting over the past week she has had intermittent episodes of nonbloody diarrhea as well as some nausea and vomiting and mid abdominal pain. States last several days when she has been turning her head or standing up she has been getting dizziness symptoms/vertigo and things seem like they are moving at times. Reports that felt unsteady but has not fallen. Under stress due to mother at home on hospice with sepsis. She has concerns for this. Denies other sick contact. Occasional little bit of chest discomfort. Denies significant shortness of breath at this time. Little bit of a cough. Some headache at this point. PAST MEDICAL HISTORY: As noted above MEDICATIONS: Reviewed home medications SOCIAL HISTORY: Smoker PHYSICAL EXAM: GENERAL: alert and oriented in no acute distress on stretcher Head: normocephalic and atraumatic EYES: No injection, discharge or icterus. PERRL, EOMI. NECK: Trachea midline. Supple. ENT: Mucous membranes pink and moist. TMs clear bilateral LUNGS: Airway patent. No retractions. Breath sounds clear with good air entry bilaterally. HEART: Regular rate and rhythm. No chest wall tenderness ABDOMEN: Soft and non-tender, without guarding or rebound. SKIN: Acyanotic, warm, dry, without rashes EXTREMITIES: Without swelling, tenderness or deformity NEUROLOGICAL: No focal deficits. No aphasia. No facial droop or slurred speech. Ambulatory. EK bpm normal sinus rhythm. No PVCs or PACs. No acute ST segment elevation. Inferior lateral T wave changes with a QTc of 468. CONTINUOUS CARDIAC MONITORING: was ordered and showed a heart rate of 50s bpm in sinus bradycardia Patient's laboratory studies and imaging reviewed. Differential includes CVA, vertigo, ICH, appendicitis, infections, di verticulitis, UTI, obstruction, mesenteric ischemia, aortic pathology, inflammatory bowel disease, renal colic, PUD, pancreatitis, biliary pathology, hernia, volvulus, constipation, as well as other pathologies. IMPRESSION/MEDICAL DECISION MAKING: Review of prior records with multiple admissions for somewhat similar issues. The question if she has gastroparesis from prior notes. Given a bit of Reglan here to help with symptoms. CT of the abdomen pelvis to look for any intra- abdominal issues given some pain complaints. Basic blood obtained. Seems more provoked with movement and standing up and low suspicion for ICH but does complain of a bit of a headache. No trauma again. We will complete a CT of the head given the headache complaint. Blood work without anemia. Mild leukocytosi s of 13.6 noted. Some lactate elevation at 3.9. Chest x-ray reassuring at this time and not hypoxic. Doubt pulmonary pathology. Some IV fluid ordered. Reported history of electrolyte abnormalities in the past. Chemistries here significantly abnormal. Hypokalemia of 2.3. Sodium 135. No anion gap. Creatinine 0.83. Low calcium of 7.4. Elevated glucose of 316. Magnesium 1.1. Normal troponin. Normal bilirubin which is slightly low AST and ALT and doubt hepatitis. Lipase normal and doubt pancreatitis. CT scan of the head and abdomen pelvis with findings of proctocolitis. Will order stool testing pending collection. Discussed the patient findings. At this point requires further optimization of her electrolytes and symptom control. Discussed with her staying in the hospital and contacted the hospitalist. DIAGNOSIS: Nausea and vomiting, hypokalemia, hypomagnesemia, proctocolitis DISPOSITION: Hospitalist will evaluate Patient was agreeable with this plan. Past Med/Surg History Medical History Accelerated hypertension Albuminuria Anxiety CAD (coronary artery disease) No remaining occlusive disease after 2 LAD drug eluting stents 10/22/20. Follows with Dr. Harris Chest pain Chronic headaches Depression Diabetes type 2, uncontrolled IDDM Diabetic nephropathy associated with type 2 diabetes mellitus Dyslipidemia Hypertension Hypokalemia Hypomagnesemia Hypothyroidism NSTEMI (non-ST elevated myocardial infarction) 10/22/2020 s/p 2 CHANTAL Obesity Osteoarthritis Tobacco abuse Vulvitis Surgical History History of cardiac catheterization 10/22/2020 Dominant: Right Left Main (% Stenosis): Normal LAD (% Stenosis): Proximal (99) and Mid (75) Circumflex (% Stenosis): Normal (luminal irregularities) RCA (% Stenosis): Normal (Luminal irregularities) 2 CHANTAL to LAD History of cholecystectomy History of dental surgery History of tonsillectomy S/P coronary artery stent placement 2 CHANTAL to LAD 10/22/2020 Family History Unknown Diabetes Thyroid disorder Father Diabetes Other No family history of adverse response to anesthesia Denies family history of Ovarian cancer Prostate cancer Breast cancer Colorectal cancer Uterine cancer Social History (Updated 06/07/22 @ 14:36 by ALBARO Madrigal) Smoking Status: Current every day smoker Tobacco Type: Cigarettes packs per day: 0.5; Cigarettes Per Day: 1/2 pack; Second Hand Exposure: Yes; Do You Dip or Chew Tobacco: No; Hx Alcohol Use: No Hx Substance Use: No Preferred Language: Occitan Communication Ability: Effective Visual Impairment: No Limitations 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 Required: No Beliefs That Will Affect Care: Spiritual marital status: Single Current Living Situation: Alone current occupational status: disabled How many Children do You have: 0 Feels Safe at Home: Yes Safety Concerns Comment: Gets nervous sometimes because she lives alone, gets shaky from anxiety Diet: regular caffeine: Yes Dental Care, Regularly: No Physical Activity Frequency: Does not Exercise Seatbelt Use: always Sunscreen Use: No Assistive Devices: None Allergies Allergies Allergy/AdvReac Type Severity Reaction Status Date / Time dulaglutide [From Trulicity] AdvReac Intermediate stomach Verified 07/19/22 14:57 pain albiglutide [From Tanzeum] AdvReac Unknown CAN'T Verified 07/19/22 14:57 REMEMBER Home Meds Home Medications Medication Instructions Recorded Confirmed nystatin 100,000 unit/gram topical 1 applic topical BID PRN Skin 08/20/21 09/07/22 powder Irritation meclizine 25 mg tablet 25 mg PO TID PRN dizziness 10/11/21 09/07/22 blood-glucose meter (Prodigy 10/15/21 07/19/22 Autocode Meter kit) acetaminophen 500 mg tablet 1,000 mg PO TID PRN Pain 01/25/22 09/07/22 (Tylenol Extra Strength) betamethasone dipropionate 0.05 % 1 applic topical DIRECTED PRN 05/03/22 09/07/22 topical cream Skin Irritation fluvoxamine 100 mg tablet 100 mg PO DAILY 09/07/22 09/07/22 Previous Rx's Medication Instructions Recorded famotidine 20 mg tablet 20 mg PO BID #180 tabs 09/05/21 ticagrelor 90 mg tablet (Brilinta) 90 mg PO BID 90 days #180 tabs 09/05/21 levothyroxine 88 mcg tablet 88 mcg PO DAILY #30 tabs 10/15/21 potassium chloride 20 mEq 40 meq PO QAM #180 tabs 04/08/22 tablet,extended release(part/cryst) atorvastatin 80 mg tablet 80 mg PO QPM #90 tabs 04/09/22 hydroxyzine HCl 10 mg tablet 10 mg PO TID PRN anxiety #90 tabs 05/03/22 pen needle, diabetic 32 gauge x #200 ea 06/28/22" (BD Ultra-Fine [place] Pen Needle) sucralfate 1 gram tablet 1 g PO ACHS 30 days #120 tabs 07/01/22 insulin regular hum U-500 conc 500 10 - 20 unit (0.02 - 0.04 mL) 07/19/22 unit/mL(3 mL) subcut pen (Humulin subcut BID #6 mL R U-500 (Conc) Insulin Kwikpen) propranolol 60 mg capsule,24 60 mg PO DAILY #30 caps 07/19/22 hr,extended release pantoprazole 40 mg tablet,delayed See Rx Instructions .Route 09/05/22 release .COMPLEX #90 tabs Results & Data (ED) Vital Signs Vital Signs - 24 hr 09/07/22 17:03 09/07/22 17:21 09/07/22 19:30 Temperature 36.4 C L Temperature Source Temporal Artery Scan Pulse Rate 66 60 Pulse Rate [Finger] 56 L Respiratory Rate 18 18 Respiratory Effort / Characteristics Non-Labored Respiratory Depth Normal Respiratory Pattern Regular Blood Pressure 144/80 H Blood Pressure [Right Arm] 139/79 Blood Pressure Mean 101 Blood Pressure Mean [Right Arm] 99 Pulse Oximetry 96 95 Oxygen Delivery Method Room Air Room Air Sepsis Recent Fever Within 48 Hours No Sepsis New/Unexplained Change in Mental Status N/A Sepsis Action Taken by Nursing No Action Required Laboratory Data 09/07/22 17:42 09/07/22 17:42 Lab Results 09/07/22 09/07/22 09/07/22 Range/Units 17:42 17:42 17:42 WBC 13.68 H (4.8-10.8) K/ul RBC 4.71 (4.20-5.40) M/uL Hgb 13.8 (12.0-16.0) g/dl Hct 39.0 (37.0-47.0) % MCV 82.8 (80.0-100.0) fL MCH 29.3 (25.0-34.0) pg MCHC 35.4 (32.0-36.0) g/dL RDW Std Deviation 40.5 (36.4-46.3) fL RDW Coeff of Umair 13.5 (11.5-14.5) % Plt Count 294 (130-400) K/uL MPV 11.4 (9.4-12.4) fL Immature Gran % (Auto) 0.6 % Neut % (Auto) 79.0 % Lymph % (Auto) 13.2 % [place] % (Auto) 5.1 % Eos % (Auto) 1.8 % Baso % (Auto) 0.3 % Neut # (Auto) 10.80 H (1.40-6.50) K/uL Lymph # (Auto) 1.81 (1.2-3.4) K/uL [place] # (Auto) 0.70 H (0.11-0.59) K/uL Eos # (Auto) 0.25 (0-0.50) K/uL Baso # (Auto) 0.04 (0-0.2) K/uL Immature Gran # (Auto) 0.08 (0.01-0.20) K/uL Sodium 135 L (136-145) mmol/L Potassium 2.3 L* (3.5-5.1) mmol/L Chloride 98 (98-107) mmol/L Carbon Dioxide 27 (21-32) mmol/L Anion Gap 10 (3-11) BUN 2 L (6-23) mg/dl Creatinine 0.83 (0.6-1.2) mg/dl Est Cr Clr Drug Dosing 65.1 ml/min Est GFR ( Amer) 87.6 ml/min Est GFR (Non-Af Amer) 75.6 ml/min BUN/Creatinine Ratio 2.4 L (10-20) Glucose 316 H* (70-99(Fasting)) mg/dl Lactate 3.9 H* (0.4-2.0) mmol/L Calcium 7.4 L (8.6-10.3) mg/dl Magnesium 1.1 L (1.7-2.4) mg/dl Total Bilirubin 0.3 (0.2-1.0) mg/dl AST 9 L (13-39) U/L ALT 6 L (7-52) U/L Alkaline Phosphatase 163 H (34-104) U/L Troponin I High Sens 5.8 (0-14) pg/ml Total Protein 6.3 (6.0-8.3) gm/dl Albumin 3.0 L (3.4-5.0) gm/dl Globulin 3.3 (2.5-4.0) gm/dl Albumin/Globulin Ratio 0.9 (0.9-2) Lipase < 3 L (11-82) U/L TSH (0.300-4.500) uIu/ml 09/07/22 09/07/22 Range/Units 17:42 20:17 WBC (4.8-10.8) K/ul RBC (4.20-5.40) M/uL Hgb (12.0-16.0) g/dl Hct (37.0-47.0) % MCV (80.0-100.0) fL MCH (25.0-34.0) pg MCHC (32.0-36.0) g/dL RDW Std Deviation (36.4-46.3) fL RDW Coeff of Umair (11.5-14.5) % Plt Count (130-400) K/uL MPV (9.4-12.4) fL Immature Gran % (Auto) % Neut % (Auto) % Lymph % (Auto) % [place] % (Auto) % Eos % (Auto) % Baso % (Auto) % Neut # (Auto) (1.40-6.50) K/uL Lymph # (Auto) (1.2-3.4) K/uL [place] # (Auto) (0.11-0.59) K/uL Eos # (Auto) (0-0.50) K/uL Baso # (Auto) (0-0.2) K/uL Immature Gran # (Auto) (0.01-0.20) K/uL Sodium (136-145) mmol/L Potassium (3.5-5.1) mmol/L Chloride (98-107) mmol/L Carbon Dioxide (21-32) mmol/L Anion Gap (3-11) BUN (6-23) mg/dl Creatinine (0.6-1.2) mg/dl Est Cr Clr Drug Dosing ml/min Est GFR ( Amer) ml/min Est GFR (Non-Af Amer) ml/min BUN/Creatinine Ratio (10-20) Glucose (70-99(Fasting)) mg/dl Lactate 1.7 (0.4-2.0) mmol/L Calcium (8.6-10.3) mg/dl Magnesium (1.7-2.4) mg/dl Total Bilirubin (0.2-1.0) mg/dl AST (13-39) U/L ALT (7-52) U/L Alkaline Phosphatase (34-104) U/L Troponin I High Sens (0-14) pg/ml Total Protein (6.0-8.3) gm/dl Albumin (3.4-5.0) gm/dl Globulin (2.5-4.0) gm/dl Albumin/Globulin Ratio (0.9-2) Lipase (11-82) U/L TSH 0.579 (0.300-4.500) uIu/ml Administered Medications Discontinued Medications Sodium Chloride (Nss 1000ml) 1,000 mls @ 999 mls/hr IV .Q1H1M TONI Stop: 09/07/22 18:30 Last Infusion: 09/07/22 19:13 Dose: 0 mls/hr Documented By: Admin: 09/07/22 18:11 Dose: 999 mls/hr Documented By: BILL Magnesium Sulfate/Dextrose (Magnesium Sulfate / D5w) 1 gm in 100 mls @ 200 mls/hr IV Q30M TONI Stop: 09/07/22 19:29 Last Infusion: 09/07/22 20:29 Dose: 0 mls/hr Documented By: Admin: 09/07/22 19:52 Dose: 200 mls/hr Documented By: Infusion: 09/07/22 19:50 Dose: 200 mls/hr Documented By: Admin: 09/07/22 19:20 Dose: 200 mls/hr Documented By: MARTA Potassium Chloride (K Esa / Wtr) 10 meq in 100 mls @ 100 mls/hr IV ONE ONE Stop: 09/07/22 19:28 Last Infusion: 09/07/22 20:29 Dose: 0 mls/hr Documented By: Admin: 09/07/22 19:20 Dose: 100 mls/hr Documented By: MARTA Potassium Chloride (K Esa / Wtr) 10 meq in 100 mls @ 100 mls/hr IV ONE ONE Stop: 09/07/22 20:31 Last Admin: 09/07/22 21:13 Dose: 100 mls/hr Documented By: MARTA Sodium Chloride (Nss 1000ml) 1,000 mls @ 999 mls/hr IV .Q1H1M ONE Stop: 09/07/22 20:56 Last Admin: 09/07/22 21:13 Dose: 999 mls/hr Documented By: MARTA Ioversol (Optiray 320 100ml) 90 ml IV ONCE ONE Stop: 09/07/22 19:04 Last Admin: 09/07/22 19:04 Dose: 90 ml Documented By: CAMILLA Metoclopramide HCl (Metoclopramide Hcl Inj 5 Mg/Ml 2 Ml Vial) 10 mg IV NOW STA Stop: 09/07/22 17:24 Last Admin: 09/07/22 18:11 Dose: 10 mg Documented By: BILL Imaging Data Radiologist's Impression: Chest X-Ray 09/07/22 17:23 XR chest 1V portable CLINICAL HISTORY: weakness COMPARISON STUDY: Chest radiograph May 21, 2022. Chest CT April 09, 2021. FINDINGS: Lung volumes are normal. Lungs are clear. There is no pneumothorax or pleural effusion. Cardiomegaly is unchanged. Mediastinal contours are normal. There is no evidence for pulmonary edema. IMPRESSION: No acute cardiopulmonary findings. ACT 112: Negative or not required by law. Electronically signed by: Nahun Odell M.D. 09/07/2022 5:[address] 09/07/22 17:23 CT OF THE HEAD WITHOUT CONTRAST CLINICAL HISTORY: dizziness, headache COMPARISON STUDY: MRI of the brain September 08, 2021. Head CT May 21, 2022. CTA of the head May 22, 2022. TECHNIQUE: Helical axial images of the head were obtained without IV contrast. Automated exposure control was utilized for the study. A dose lowering technique was utilized adhering to the principles of ALARA. FINDINGS: No acute intracranial hemorrhage, midline shift or mass effect is present. The ventricular system is unremarkable. The basal cisterns are patent. No extra-axial collections are present. There are no findings to suggest acute dural sinus thrombosis or acute territorial infarct. No significant calvarial abnormalities are present. There is minimal sinus mucosal thickening. IMPRESSION: No acute intracranial findings. ACT 112: Negative or not required by law. Electronically signed by: Nahun Odell M.D. 09/07/2022 7:09 PM Abdomen/Pelvis CT 09/07/22 17:27 CT OF THE ABDOMEN AND PELVIS WITH CONTRAST CLINICAL HISTORY: Mid abdominal pain, nausea/diarrhea. COMPARISON STUDY: CT of the abdomen and pelvis May 21, 2022. TECHNIQUE: Following IV administration of 90 mL of Optiray, axial images of the abdomen and pelvis were obtained from the lung bases to the proximal femurs. Images were reviewed in the axial, sagittal, and coronal planes. IV contrast was administered without complication. Automated exposure control was utilized for the study. A dose lowering technique was utilized adhering to the principles of ALARA. CT DOSE: 1826.99 mGy.cm FINDINGS: Lung bases are unremarkable. No pneumatosis, free air or portal venous gas is present. There is no biliary ductal dilatation status post cholecystectomy. Spleen, adrenal glands, kidneys and pancreas are unremarkable with exception of pancreatic glandular atrophy. This is unchanged. There is no hydronephrosis. A few suspected left renal cysts are noted. There are no urinary calculi. Colonic diverticulosis is noted. There is no evidence for acute diverti culitis. There is mild wall thickening of the colon and rectum. This is most pronounced within the ascending colon and transverse colon. There is minimal pericolonic stranding. No free air or abscess is present. There is no lymphadenopathy. Major vasculature is patent. IMPRESSION: 1. Findings consistent with a nonspecific diffuse proctocolitis. No free air or abscess. 2. No bowel obstruction. ACT 112: Negative or not required by law. Electronically signed by: Nahun Odell M.D. 09/07/2022 7:19 PM Discharge Plan Visit Data Chief Complaint: Illness Stated Complaint: DIZZY,VOMIT,DIARREAH, ED Provider: Mundo Rojas Discharge Problem: Nausea, Hyperglycemia, Hypokalemia, Hypomagnesemia, Proctocolitis Patient Disposition: Admitted As Inpatient Discharge Instructions Interventions: ED Discharge Assessment Last Done: 09/07/22 21:10
--- NOTE | 2022-09-07 17:56 | XRay Report ---
XR chest 1V portable CLINICAL HISTORY: weakness COMPARISON STUDY: Chest radiograph May 21, 2022. Chest CT April 09, 2021. FINDINGS: Lung volumes are normal. Lungs are clear. There is no pneumothorax or pleural effusion. Car diomegaly is unchanged. Mediastinal contours are normal. There is no evidence for pulmonary edema. IMPRESSION: No acute cardiopulmonary findings. ACT 112: Negative or not required by law. Electronically signed by: Nahun Odell M.D. 09/07/2022 5:54 PM
[2022-09-07 18:05] LABS: Basophils # (auto) 0.04 K/uL (0-0.2); Basophils % (auto) 0.3 %; Eosinophils # (auto) 0.25 K/uL (0-0.50); Eosinophils % (auto) 1.8 %; Hemoglobin 13.8 g/dl (12.0-16.0); Immature Granulocytes # (auto) 0.08 K/uL (0.01-0.20); Immature Granulocytes % (auto) 0.6 %; Lymphocytes # (auto) 1.81 K/uL (1.2-3.4); Lymphocytes % (auto) 13.2 %; Mean Corpuscular Hemoglobin 29.3 pg (25.0-34.0); Mean Corpuscular Hgb Conc 35.4 g/dL (32.0-36.0); Mean Corpuscular Volume 82.8 fL (80.0-100.0); Mean Platelet Volume 11.4 fL (9.4-12.4); Monocytes % (auto) 5.1 %; Platelet Count 294 K/uL (130-400); RDW Coefficient of Variation 13.5 % (11.5-14.5); RDW Standard Deviation 40.5 fL (36.4-46.3); Red Blood Count 4.71 M/uL (4.20-5.40); White Blood Count 13.68 K/ul (4.8-10.8)
[2022-09-07 18:25] LABS: Alanine Aminotransferase 6 U/L (7-52); Albumin Globulin Ratio 0.9 (0.9-2); Alkaline Phosphatase 163 U/L (34-104); Anion Gap 10 (3-11); Aspartate Aminotransferase 9 U/L (13-39); BUN Creatinine Ratio 2.4 (10-20); Bilirubin,Total 0.3 mg/dl (0.2-1.0); Blood Urea Nitrogen 2 mg/dl (6-23); Calcium 7.4 mg/dl (8.6-10.3); Carbon Dioxide 27 mmol/L (21-32); Chloride 98 mmol/L (98-107); Creatinine Clr Calc Pharmacy 65.1 ml/min; Est GFR (African American) 87.6 ml/min; Est GFR (Non-African American) 75.6 ml/min; Globulin 3.3 gm/dl (2.5-4.0); Glucose 316 mg/dl (70-99(Fasting)); Magnesium 1.1 mg/dl (1.7-2.4); Potassium 2.3 mmol/L (3.5-5.1); Sodium 135 mmol/L (136-145); Total Protein 6.3 gm/dl (6.0-8.3)
[2022-09-07] MEDS ORDERED: POTASSIUM CHLORIDE / WTR 10 MEQ/100 ML PLCT IV ONE ×2 (18:29→19:32)
[2022-09-07 18:31] LABS: Troponin I High Sensitivity 5.8 pg/ml (0-14)
[2022-09-07 18:42] LABS: Lipase < 3 U/L (11-82)
[2022-09-07] MEDS ORDERED: OPTIRAY 320 100ml IV ONE (19:03)
--- NOTE | 2022-09-07 19:12 | CT Scan Report ---
CT OF THE HEAD WITHOUT CONTRAST CLINICAL HISTORY: dizziness, headache COMPARISON STUDY: MRI of the brain September 08, 2021. Head CT May 21, 2022. CTA of the head May 22. TECHNIQUE: Helical axial images of the head were obtained without IV contrast. Automated exposure con trol was utilized for the study. A dose lowering technique was utilized adhering to the principles o f ALARA. FINDINGS: No acute intracranial hemorrhage, midline shift or mass effect is present. The ventricular system is unremarkable. The basal cisterns are patent. No extra-axial collections are present. There are no findings to suggest acute dural sinus thrombosis or acute territorial infarct. No significant calvarial abnormalities are present. There is minimal sinus mucosal thickening. IMPRESSION: No acute intracranial findings. ACT 112: Negative or not required by law. Electronically signed by: Nahun Odell M.D. 09/07/2022 7:09 PM
[2022-09-07] MEDS: MAGNESIUM SULFATE / D5W 1 GM/100 ML BAG IV SCH ×3 (19:20→22:06)
--- NOTE | 2022-09-07 19:22 | CT Scan Report ---
CT OF THE ABDOMEN AND PELVIS WITH CONTRAST CLINICAL HISTORY: Mid abdominal pain, nausea/diarrhea. COMPARISON STUDY: CT of the abdomen and pelvis May 21, 2022. TECHNIQUE: Following IV administration of 90 mL of Optiray, axial images of the abdomen and pelvis we re obtained from the lung bases to the proximal femurs. Images were reviewed in the axial, sagittal, and coronal planes. IV contrast was administered without complication. Automated exposure control wa s utilized for the study. A dose lowering technique was utilized adhering to the principles of ALARA . CT DOSE: 1826.99 mGy.cm FINDINGS: Lung bases are unremarkable. No pneumatosis, free air or portal venous gas is present. Ther e is no biliary ductal dilatation status post cholecystectomy. Spleen, adrenal glands, kidneys and pa ncreas are unremarkable with exception of pancreatic glandular atrophy. This is unchanged. There is n o hydronephrosis. A few suspected left renal cysts are noted. There are no urinary calculi. Colonic d iverticulosis is noted. There is no evidence for acute diverticulitis. There is mild wall thickening of the colon and rectum. This is most pronounced within the ascending colon and transverse colon. The re is minimal pericolonic stranding. No free air or abscess is present. There is no lymphadenopathy. Major vasculature is patent. IMPRESSION: 1. Findings consistent with a nonspecific diffuse proctocolitis. No free air or abscess. 2. No bowel obstruction. ACT 112: Negative or not required by law. Electronically signed by: Nahun Odell M.D. 09/07/2022 7:19 PM
[2022-09-07] MEDS ORDERED: SODIUM CHLORIDE 0.9% 1000ML 1,000 ML IV ONE (19:56)
--- NOTE | 2022-09-07 20:24 | History & Physical Report ---
Date of Service September 07, 2022 Assessment & Plan (1) Proctocolitis: (2) Hyperglycemia due to type 2 diabetes mellitus: (3) Tremor: (4) Hypomagnesemia: (5) Hypokalemia: (6) GERD (gastroesophageal reflux disease): (7) Depression: (8) Anxiety: (9) Status post insertion of drug-eluting stent into left anterior descending (LAD) artery: (10) Diabetes type 2, uncontrolled: (11) Diabetic nephropathy associated with type 2 diabetes mellitus: Plan Proctocolitis- Stool PCR and test for C. difficile ordered Full liquid diabetic diet as tolerated For now start Flagyl 500 mg IV every 8 hours Electrolyte abnormalities/hypokalemia/hypomagnesemia- Potassium 2.3 and magnesium 1.1 on admission Replacing oral and IV replacement, and recheck laboratories in a.m. NSS + KCl 20 mEq at 80 mils per hour Klor-Con 40 mEq p.o. 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 have a cassius-Parkinson's type condition Will need to follow-up with neurology in the outpatient setting Diabetes mellitus- Hold outpatient regimen since dietary intake is likely to be reduced Placed on Accu-Cheks with NovoLog sliding scale CAD/hypertension/stented LAD- Continue atorvastatin, propranolol, Brilinta History of Present Illness Chief Complaint: The patient presents to the emergency department with complaint of intermittent diarrhea, with nausea and vomiting and mid to lower quadrant abdominal pain that began a few weeks ago, but has worsened over the past week Primary Care Provider: Jc Zaman DO The patient is a 61-year-old female with a past medical history including diabetes mellitus, urinary tract infection, GERD, hypomagnesemia, hypokalemia, depression with anxiety, vitamin D deficiency, B12 deficiency, hypothyroidism, hypertension, NSTEMI, coronary artery stent placement and fatigue. She presents to the emergency department with symptoms as noted above. Significant laboratories: WBC 13.68, potassium 2.3, magnesium 1.1, glucose 316, albumin 3.0 Imaging studies: Chest x-ray negative, CT head negative, CT scan of abdomen pelvis suggest proctocolitis Treatment from the ED: 10 mEq potassium chloride riders x2, magnesium 1 g IV x2, normal saline 1 L, Reglan 10 mg IV Allergies Allergy/AdvReac Type Severity Reaction Status Date / Time dulaglutide [From Trulicity] AdvReac Intermediate stomach Verified 07/19/22 14:57 pain albiglutide [From [facility]] AdvReac Unknown CAN'T Verified 07/19/22 14:57 REMEMBER Home Medications Medication Instructions Recorded Confirmed Type nystatin 100,000 unit/gram topical 1 applic topical BID PRN Skin 08/20/21 09/07/22 History powder Irritation famotidine 20 mg tablet 20 mg PO BID #180 tabs 09/05/21 09/07/22 Rx ticagrelor 90 mg tablet (Brilinta) 90 mg PO BID 90 days #180 tabs 09/05/21 09/07/22 Rx meclizine 25 mg tablet 25 mg PO TID PRN dizziness 10/11/21 09/07/22 History blood-glucose meter (Prodigy 10/15/21 07/19/22 History Autocode Meter kit) levothyroxine 88 mcg tablet 88 mcg PO DAILY #30 tabs 10/15/21 09/07/22 Rx acetaminophen 500 mg tablet 1,000 mg PO TID PRN Pain 01/25/22 09/07/22 History (Tylenol Extra Strength) potassium chloride 20 mEq 40 meq PO QAM #180 tabs 04/08/22 09/07/22 Rx tablet,extended release(part/cryst) atorvastatin 80 mg tablet 80 mg PO QPM #90 tabs 04/09/22 09/07/22 Rx betamethasone dipropionate 0.05 % 1 applic topical DIRECTED PRN 05/03/22 09/07/22 History topical cream Skin Irritation hydroxyzine HCl 10 mg tablet 10 mg PO TID PRN anxiety #90 tabs 05/03/22 09/07/22 Rx pen needle, diabetic 32 gauge x #200 ea 06/28/22 07/19/22 Rx 5/32" (BD Ultra-Fine [place] Pen Needle) sucralfate 1 gram tablet 1 g PO ACHS 30 days #120 tabs 07/01/22 09/07/22 Rx insulin regular hum U-500 conc 500 10 - 20 unit (0.02 - 0.04 mL) 07/19/22 09/07/22 Rx unit/mL(3 mL) subcut pen (Humulin subcut BID #6 mL R U-500 (Conc) Insulin Kwikpen) propranolol 60 mg capsule,24 60 mg PO DAILY #30 caps 07/19/22 09/07/22 Rx hr,extended release pantoprazole 40 mg tablet,delayed See Rx Instructions .Route 09/05/22 09/07/22 Rx release .COMPLEX #90 tabs fluvoxamine 100 mg tablet 100 mg PO DAILY 09/07/22 09/07/22 History Past Med/Surg History Medical History Accelerated hypertension Albuminuria Anxiety CAD (coronary artery disease) No remaining occlusive disease after 2 LAD drug eluting stents 10/22/20. Follows with Dr. Harris Chest pain Chronic headaches Depression Diabetes type 2, uncontrolled IDDM Diabetic nephropathy associated with type 2 diabetes mellitus Dyslipidemia Hypertension Hypokalemia Hypomagnesemia Hypothyroidism NSTEMI (non-ST elevated myocardial infarction) 10/22/2020 s/p 2 CHANTAL Obesity Osteoarthritis Tobacco abuse Vulvitis Surgical History History of cardiac catheterization 10/22/2020 Dominant: Right Left Main (% Stenosis): Normal LAD (% Stenosis): Proximal (99) and Mid (75) Circumflex (% Stenosis): Normal (luminal irregularities) RCA (% Stenosis): Normal (Luminal irregularities) 2 CHANTAL to LAD History of cholecystectomy History of dental surgery History of tonsillectomy S/P coronary artery stent placement 2 CHANTAL to LAD 10/22/2020 Family History Unknown Diabetes Thyroid disorder Father Diabetes Other No family history of adverse response to anesthesia Denies family history of Ovarian cancer Prostate cancer Breast cancer Colorectal cancer Uterine cancer Social History (Updated 06/07/22 @ 14:36 by ALBARO Madrigal) Smoking Status: Light tobacco smoker Tobacco Type: Cigarettes packs per day: 0.5; Cigarettes Per Day: 10; Second Hand Exposure: No; Do You Dip or Chew Tobacco: No; Tobacco Cessation Education Requested by Patient: Yes Hx Alcohol Use: No Hx Substance Use: No Preferred Language: Setswana Communication Ability: Effective Visual Impairment: No Limitations Side Trimmer Required: No Beliefs That Will Affect Care: None marital status: Single Current Living Situation: Alone current occupational status: disabled How many Children do You have: 0 Other Information That Helps Us Care for You: No Feels Safe at Home: Yes Safety Concerns: Feels Safe At This Time Safety Concerns Comment: Gets nervous sometimes because she lives alone, gets shaky from anxiety Diet: regular caffeine: Yes Dental Care, Regularly: No Physical Activity Frequency: Does not Exercise Seatbelt Use: always Sunscreen Use: No Assistive Devices: Glasses and Walker Review of Systems Review of Systems: The patient denies chest pain, palpitations, shortness of breath, dyspnea on exertion, cough, lower extremity swelling, sore throat, fevers, chills, sweats, blood in urine or stool, dysuria, urinary frequency or urgency, headache, memory loss, loss of consciousness, rash, abnormal bruising or bleeding, imbalance, focal weakness, numbness or tingling in arms or legs, generalized arthralgias or myalgias, back or neck pain, or night sweats. The review of systems is otherwise negative other than for that already noted above, and at least 10 systems have been reviewed. Physical Exam Physical Exam: The patient is awake, alert and oriented 3, well developed and well nourished, normocephalic and atraumatic, lying in bed and in no acute distress. HEENT--PERRL, EOMI, mucous membranes and oropharynx dry. Neck--supple. No JVD. No bruits. Thyroid normal, trachea midline, no adenopathy. Heart--normal S1 and S2. No murmurs, rubs or gallops. Lungs--clear bilaterally, no respiratory distress, no accessory muscle use. Abdomen--normal bowel sounds and soft. Nontender. Nondistended Extremities--no cyanosis or clubbing. No edema. Dermatologic--normal skin turgor, normal color, no abnormal lymph nodes, no rash. Neurologic--cranial nerves II through XII grossly intact. Rheumatologic--normal range of motion. Psychiatric--normal affect. Results & Data Results & Data Vital Signs (Past 12 Hours) Vital Signs Temp Pulse Pulse Resp BP BP Pulse Ox 09/07/22 19:30 56 L 18 139/79 95 09/07/22 17:21 60 09/07/22 17:03 36.4 C L 66 18 144/80 H 96 O2 Del Method 09/07/22 19:30 Room Air 09/07/22 17:21 09/07/22 17:03 Room Air Laboratory Results Laboratory Results WBC 13.68 K/ul (4.8-10.8) H 09/07/22 17:42 RBC 4.71 M/uL (4.20-5.40) 09/07/22 17:42 Hgb 13.8 g/dl (12.0-16.0) 09/07/22 17:42 Hct 39.0 % (37.0-47.0) 09/07/22 17:42 MCV 82.8 fL (80.0-100.0) 09/07/22 17:42 MCH 29.3 pg (25.0-34.0) 09/07/22 17:42 MCHC 35.4 g/dL (32.0-36.0) 09/07/22 17:42 RDW Std Deviation 40.5 fL (36.4-46.3) 09/07/22 17:42 RDW Coeff of Umair 13.5 % (11.5-14.5) 09/07/22 17:42 Plt Count 294 K/uL (130-400) 09/07/22 17:42 MPV 11.4 fL (9.4-12.4) 09/07/22 17:42 Immature Gran % (Auto) 0.6 % 09/07/22 17:42 Neut % (Auto) 79.0 % 09/07/22 17:42 Lymph % (Auto) 13.2 % 09/07/22 17:42 [place] % (Auto) 5.1 % 09/07/22 17:42 Eos % (Auto) 1.8 % 09/07/22 17:42 Baso % (Auto) 0.3 % 09/07/22 17:42 Neut # (Auto) 10.80 K/uL (1.40-6.50) H 09/07/22 17:42 Lymph # (Auto) 1.81 K/uL (1.2-3.4) 09/07/22 17:42 [place] # (Auto) 0.70 K/uL (0.11-0.59) H 09/07/22 17:42 Eos # (Auto) 0.25 K/uL (0-0.50) 09/07/22 17:42 Baso # (Auto) 0.04 K/uL (0-0.2) 09/07/22 17:42 Immature Gran # (Auto) 0.08 K/uL (0.01-0.20) 09/07/22 17:42 Sodium 135 mmol/L (136-145) L 09/07/22 17:42 Potassium 2.3 mmol/L (3.5-5.1) L* 09/07/22 17:42 Chloride 98 mmol/L (98-107) 09/07/22 17:42 Carbon Dioxide 27 mmol/L (21-32) 09/07/22 17:42 Anion Gap 10 (3-11) 09/07/22 17:42 BUN 2 mg/dl (6-23) L 09/07/22 17:42 Creatinine 0.83 mg/dl (0.6-1.2) 09/07/22 17:42 Est Cr Clr Drug Dosing 65.1 ml/min 09/07/22 17:42 Est GFR ( Amer) 87.6 ml/min 09/07/22 17:42 Est GFR (Non-Af Amer) 75.6 ml/min 09/07/22 17:42 BUN/Creatinine Ratio 2.4 (10-20) L 09/07/22 17:42 Glucose 316 mg/dl (70-99(Fasting)) H* 09/07/22 17:42 POC Glucose 149 mg/dl (70-99) H 09/08/22 00:22 Lactate 1.7 mmol/L (0.4-2.0) 09/07/22 20:17 Calcium 7.4 mg/dl (8.6-10.3) L 09/07/22 17:42 Magnesium 1.1 mg/dl (1.7-2.4) L 09/07/22 17:42 Total Bilirubin 0.3 mg/dl (0.2-1.0) 09/07/22 17:42 AST 9 U/L (13-39) L 09/07/22 17:42 ALT 6 U/L (7-52) L 09/07/22 17:42 Alkaline Phosphatase 163 U/L (34-104) H 09/07/22 17:42 Troponin I High Sens 5.8 pg/ml (0-14) 09/07/22 17:42 Total Protein 6.3 gm/dl (6.0-8.3) 09/07/22 17:42 Albumin 3.0 gm/dl (3.4-5.0) L 09/07/22 17:42 Globulin 3.3 gm/dl (2.5-4.0) 09/07/22 17:42 Albumin/Globulin Ratio 0.9 (0.9-2) 09/07/22 17:42 Lipase < 3 U/L (11-82) L 09/07/22 17:42 TSH 0.579 uIu/ml (0.300-4.500) 09/07/22 17:42 Urine Color Yellow 09/07/22 20:46 Urine Appearance Clear (Clear) 09/07/22 20:46 Urine pH 6.0 (4.5-7.5) 09/07/22 20:46 Ur Specific [place] 1.018 (1.000-1.030) 09/07/22 20:46 Urine Protein Negative (Negative) 09/07/22 20:46 Urine Glucose (UA) 2+ (Negative) H 09/07/22 20:46 Urine Ketones Negative (Negative) 09/07/22 20:46 Urine Blood Negative (Negative) 09/07/22 20:46 Urine Nitrite Negative (Negative) 09/07/22 20:46 Urine Bilirubin Negative (Negative) 09/07/22 20:46 Urine Urobilinogen Negative (Negative) 09/07/22 20:46 Ur Leukocyte Esterase Negative (Negative) 09/07/22 20:46 SARS-CoV-2, RNA, NAAT NEGATIVE (NEGATIVE) 09/07/22 Unknown Impressions Chest X-Ray 09/07/22 17:23 XR chest 1V portable CLINICAL HISTORY: weakness COMPARISON STUDY: Chest radiograph May 21, 2022. Chest CT April 09, 2021. FINDINGS: Lung volumes are normal. Lungs are clear. There is no pneumothorax or pleural effusion. Cardiomegaly is unchanged. Mediastinal contours are normal. There is no evidence for pulmonary edema. IMPRESSION: No acute cardiopulmonary findings. ACT 112: Negative or not required by law. Electronically signed by: Nahun Odell M.D. 09/07/2022 5:[address] 09/07/22 17:23 CT OF THE HEAD WITHOUT CONTRAST CLINICAL HISTORY: dizziness, headache COMPARISON STUDY: MRI of the brain September 08, 2021. Head CT May 21, 2022. CTA of the head May 22, 2022. TECHNIQUE: Helical axial images of the head were obtained without IV contrast. Automated exposure control was utilized for the study. A dose lowering technique was utilized adhering to the principles of ALARA. FINDINGS: No acute intracranial hemorrhage, midline shift or mass effect is present. The ventricular system is unremarkable. The basal cisterns are patent. No extra-axial collections are present. There are no findings to suggest acute dural sinus thrombosis or acute territorial infarct. No significant calvarial abnormalities are present. There is minimal sinus mucosal thickening. IMPRESSION: No acute intracranial findings. ACT 112: Negative or not required by law. Electronically signed by: Nahun Odell M.D. 09/07/2022 7:09 PM Abdomen/Pelvis CT 09/07/22 17:27 CT OF THE ABDOMEN AND PELVIS WITH CONTRAST CLINICAL HISTORY: Mid abdominal pain, nausea/diarrhea. COMPARISON STUDY: CT of the abdomen and pelvis May 21, 2022. TECHNIQUE: Following IV administration of 90 mL of Optiray, axial images of the abdomen and pelvis were obtained from the lung bases to the proximal femurs. Images were reviewed in the axial, sagittal, and coronal planes. IV contrast was administered without complication. Automated exposure control was utilized for the study. A dose lowering technique was utilized adhering to the principles of ALARA. CT DOSE: 1826.99 mGy.cm FINDINGS: Lung bases are unremarkable. No pneumatosis, free air or portal venous gas is present. There is no biliary ductal dilatation status post cholecystectomy. Spleen, adrenal glands, kidneys and pancreas are unremarkable with exception of pancreatic glandular atrophy. This is unchanged. There is no hydronephrosis. A few suspected left renal cysts are noted. There are no urinary calculi. Colonic diverticulosis is noted. There is no evidence for acute dive rticulitis. There is mild wall thickening of the colon and rectum. This is most pronounced within the ascending colon and transverse colon. There is minimal pericolonic stranding. No free air or abscess is present. There is no lymphadenopathy. Major vasculature is patent. IMPRESSION: 1. Findings consistent with a nonspecific diffuse proctocolitis. No free air or abscess. 2. No bowel obstruction. ACT 112: Negative or not required by law. Electronically signed by: Nahun Odell M.D. 09/07/2022 7:19 PM Code Status & VTE Plan Code Status Full code VTE Prophylaxis Plan VTE Prophylaxis will be ordered: Yes PG Care Time/CCT Total # of Minutes Spent Total Time Spent with Patient: Total time spent is greater than 50% in coordination of care (as documented) at patient's floor/unit and/or counseling patient: Coding Level of Care Code 65726 INT INP/OBS CARE 375MIN Diagnoses Proctocolitis K52.9 Hyperglycemia due to type 2 diabetes mellitus E11.65 Tremor R25.1 Hypomagnesemia E83.42 Hypokalemia E87.6 GERD (gastroesophageal reflux disease) K21.9 Depression F32.9 Anxiety F41.9 Status post insertion of drug-eluting stent into left anterior descending (LAD) artery Z95.5 Diabetes type 2, uncontrolled E11.65 Diabetic nephropathy associated with type 2 diabetes mellitus E11.21
[2022-09-07 21:34] LABS: Appearance Urine Clear (Clear); Bilirubin Urine Negative (Negative); Blood Urine Negative (Negative); Color Urine Yellow; Glucose Urine UA 2+ (Negative); Ketones Urine Negative (Negative); Leukocyte Esterase Urine Negative (Negative); Nitrite Urine Negative (Negative); Protein Urine Negative (Negative); Specific Gravity Urine 1.018 (1.000-1.030); Urobilinogen Urine Negative (Negative)
[2022-09-07] MEDS ORDERED: CARBOHYDRATES FOR HYPOGLYCEMIA PO PRN (21:45)
[2022-09-07] MEDS ORDERED: DEXTROSE 50% 50 ML SYRINGE IV PRN (21:45)
[2022-09-07] MEDS ORDERED: GLUCOSE 10 TAB/TUBE PO PRN (21:45)
[2022-09-07] MEDS ORDERED: hydrOXYzine HCl 10 MG TAB PO PRN (21:45)
[2022-09-07] MEDS ORDERED: NYSTATIN POWDER 15GM BTL EXT PRN (21:45)
[2022-09-07] MEDS ORDERED: GLUCAGON FOR INJ 1 MG VIAL SQ PRN (21:45)
[2022-09-07] MEDS ORDERED: GLUCOSE 40% GEL 15 GM TUBE PO PRN (21:45)
[2022-09-07] MEDS: INSULIN ASPART PER UNIT CHARGE SC SCH (22:20)
[2022-09-07] MEDS: POTASSIUM CHLORIDE CRTAB 20 MEQ TABCR PO SCH (22:39)
[2022-09-07] MEDS: SUCRALFATE 1 GM TAB PO SCH (22:41)
[2022-09-07] MEDS: ATORVASTATIN 40 MG TAB PO SCH (22:43)
[2022-09-07] MEDS: FAMOTIDINE 20 MG TAB PO SCH (22:44)
[2022-09-07] MEDS: TICAGRELOR 90 MG TAB PO SCH (22:47)
[2022-09-07] MEDS: metroNIDAZOLE 500 MG/100 ML BAG IV SCH (22:47)
[2022-09-07] MEDS: ENOXAPARIN INJ 40 MG/0.4 ML SYR SQ SCH (22:56)
[2022-09-08 05:07] LABS: Basophils # (auto) 0.04 K/uL (0-0.2); Basophils % (auto) 0.4 %; Eosinophils # (auto) 0.31 K/uL (0-0.50); Hematocrit (blood only) 34.7 % (37.0-47.0); Immature Granulocytes # (auto) 0.04 K/uL (0.01-0.20); Immature Granulocytes % (auto) 0.4 %; Lymphocytes # (auto) 2.61 K/uL (1.2-3.4); Lymphocytes % (auto) 25.3 %; Mean Corpuscular Hemoglobin 28.5 pg (25.0-34.0); Mean Corpuscular Hgb Conc 34.6 g/dL (32.0-36.0); Mean Corpuscular Volume 82.4 fL (80.0-100.0); Mean Platelet Volume 11.5 fL (9.4-12.4); Monocytes # (auto) 0.79 K/uL (0.11-0.59); Monocytes % (auto) 7.7 %; Neutrophils # (auto) 6.51 K/uL (1.40-6.50); Neutrophils % (auto) 63.2 %; Platelet Count 258 K/uL (130-400); RDW Coefficient of Variation 13.1 % (11.5-14.5); Red Blood Count 4.21 M/uL (4.20-5.40)
[2022-09-08 05:23] LABS: Albumin Level 2.4 gm/dl (3.4-5.0); Calcium 7.1 mg/dl (8.6-10.3); Creatinine Clr Calc Pharmacy 81.3 ml/min; Est GFR (African American) 109.2 ml/min; Est GFR (Non-African American) 94.2 ml/min; Magnesium 2.1 mg/dl (1.7-2.4); Phosphorus 2.8 mg/dl (2.5-4.9); Potassium 2.6 mmol/L (3.5-5.1)
[2022-09-08] MEDS: metroNIDAZOLE 500 MG/100 ML BAG IV SCH ×3 (05:44→21:23)
[2022-09-08] MEDS: LEVOTHYROXINE SODIUM 88 MCG TABLET PO SCH (05:45)
[2022-09-08] MEDS: MAGNESIUM SULFATE / D5W 1 GM/100 ML BAG IV SCH (07:23)
[2022-09-08] MEDS: NSS + 20MEQ KCL 20 MEQ/1,000 ML BAG IV SCH ×2 (07:25→10:55)
--- NOTE | 2022-09-08 07:52 | Electrocardiogram Report ---
Test Reason : Blood Pressure : / mmHG Vent. Rate : 060 BPM Atrial Rate : 060 BPM P-R Int : 134 ms QRS Dur : 068 ms QT Int : 468 ms P-R-T Axes : 038 041 253 degrees QTc Int : 468 ms Normal sinus rhythm Diffuse Nonspecific ST and T wave abnormality Abnormal ECG When compared with ECG of 21-MAY-2022 19:37, Vent. rate has decreased BY 38 BPM Inverted T waves have replaced nonspecific T wave abnormality in Inferior leads T wave inversion now evident in Anterolateral leads Confirmed by Garcia Harris ([id number]) on 09/08/2022 7:51:54 AM Referred By: REFERRED SELF Confirmed By:Garcia Harris
--- NOTE | 2022-09-08 07:53 | Electrocardiogram Report ---
Test Reason : Blood Pressure : / mmHG Vent. Rate : 057 BPM Atrial Rate : 057 BPM P-R Int : 142 ms QRS Dur : 068 ms QT Int : 588 ms P-R-T Axes : 051 059 062 degrees QTc Int : 572 ms Poor data quality, interpretation may be adversely affected Sinus bradycardia Diffuse Nonspecific ST and T wave abnormality Low voltage QRS Prolonged QT Abnormal ECG When compared with ECG of 07-SEP-2022 17:13, No significant change Confirmed by Garcia Harris ([id number]) on 09/08/2022 7:52:46 AM Referred By: REFERRED SELF Confirmed By:Garcia Harris
[2022-09-08] MEDS: fluvoxaMINE MALEATE 50 MG TAB PO SCH (08:15)
[2022-09-08] MEDS: PANTOprazole 40 MG TAB PO SCH (08:16)
[2022-09-08] MEDS: PROPRANOLOL HCL 60 MG LA CAP PO SCH (08:16)
[2022-09-08] MEDS: SUCRALFATE 1 GM TAB PO SCH ×4 (08:17→21:21)
[2022-09-08] MEDS: POTASSIUM CHLORIDE CRTAB 20 MEQ TABCR PO SCH ×2 (08:17→21:22)
[2022-09-08] MEDS: INSULIN ASPART PER UNIT CHARGE SC SCH ×4 (08:21→20:31)
--- NOTE | 2022-09-08 09:12 | Hospitalist Progress Note ---
Date of Service September 08, 2022 Assessment & Plan (1) Proctocolitis: Plan: Proctocolitis- seen on CT scan 09/07/2022 no free air no acute diverticulitis Stool PCR and test for C. difficile results pending Full liquid diabetic diet as tolerated For now start Flagyl 500 mg IV every 8 hours (2) Hyperglycemia due to type 2 diabetes mellitus: Plan: Diabetes mellitus- Hold outpatient regimen since dietary intake is likely to be reduced Placed on Accu-Cheks with NovoLog sliding scale electrolyte abnormalities on presentation, hypomagnesemia hypokalemia, secondary to diarrhea we will replete potassium and magnesium (3) Depression: Plan: depression with anxiety (4) Status post insertion of drug-eluting stent into left anterior descending (LAD) artery: Plan: coronary artery disease with patient remains on Brilinta, propranolol and atorvastatin (5) Diabetes type 2, uncontrolled: Plan: will be placed on insulin sliding scale patient with chronic kidney disease stage III secondary to diabetic effects Plan CAD/hypertension/stented LAD- Continue atorvastatin, propranolol, Brilinta Admission and Anticipated Discharge Date Admission Date: September 07, 2022 Subjective Pt has not had a bowel movement since admission, tolerating po intake and having little pain , when she does have pain is RUQ and pt does have history of Cholecystectomy Physical Exam Physical Exam: Patient awake alert she is eating lunch she has a little bit of right upper quadrant abdominal pain she has had no residual diarrhea Results & Data Results & Data Vital Signs (Past 12 Hours) Vital Signs Temp Pulse Pulse Resp BP Pulse Ox O2 Del Method 09/08/22 08:13 62 128/62 09/08/22 07:49 97.9 F 54 L 20 99/64 L 94 Room Air 09/08/22 03:00 97.5 F L 55 L 18 100/63 94 Room Air 09/07/22 22:53 97.5 F L 55 L 19 117/75 95 Room Air 09/07/22 22:06 97.5 F L 55 L 19 117/75 95 Room Air 09/07/22 21:45 55 L 09/07/22 23:00 56 L 09/07/22 22:30 Room Air Laboratory Results reviewed chemistry profound hypokalemia persists reviewed mag museum level this is replete reviewed CBC PG Care Time/CCT Total # of Minutes Spent Total Time Spent with Patient: Total time spent is greater than 50% in coordination of care (as documented) at patient's floor/unit and/or counseling patient: Coding Level of Care Code 54941 SUB INP/OBS CARE 235MIN Diagnoses Proctocolitis K52.9 Hyperglycemia due to type 2 diabetes mellitus E11.65 Depression F32.9 Status post insertion of drug-eluting stent into left anterior descending (LAD) artery Z95.5 Diabetes type 2, uncontrolled E11.65
[2022-09-08] MEDS: POTASSIUM CHLORIDE / WTR 10 MEQ/100 ML PLCT IV SCH ×3 (12:06→14:48)
[2022-09-08] MEDS ORDERED: POTASSIUM CHLORIDE 20 MEQ/15 ML UDC PO ONE (14:00)
[2022-09-08] MEDS: TICAGRELOR 90 MG TAB PO SCH ×2 (16:26→23:50)
[2022-09-08] MEDS: FAMOTIDINE 20 MG TAB PO SCH ×2 (16:26→23:51)
[2022-09-08] MEDS: ONDANSETRON INJ 2 MG/ML 2 ML VIAL IV PRN (18:10)
[2022-09-08] MEDS: ATORVASTATIN 40 MG TAB PO SCH (21:22)
[2022-09-08] MEDS: ENOXAPARIN INJ 40 MG/0.4 ML SYR SQ SCH (21:25)
[2022-09-09] MEDS: metroNIDAZOLE 500 MG/100 ML BAG IV SCH ×3 (05:19→21:25)
[2022-09-09] MEDS: LEVOTHYROXINE SODIUM 88 MCG TABLET PO SCH (05:19)
[2022-09-09 06:17] LABS: Basophils # (auto) 0.04 K/uL (0-0.2); Basophils % (auto) 0.5 %; Eosinophils # (auto) 0.29 K/uL (0-0.50); Eosinophils % (auto) 3.3 %; Hematocrit (blood only) 35.9 % (37.0-47.0); Hemoglobin 11.9 g/dl (12.0-16.0); Immature Granulocytes # (auto) 0.02 K/uL (0.01-0.20); Immature Granulocytes % (auto) 0.2 %; Lymphocytes # (auto) 2.66 K/uL (1.2-3.4); Lymphocytes % (auto) 30.7 %; Mean Corpuscular Hemoglobin 28.7 pg (25.0-34.0); Mean Corpuscular Hgb Conc 33.1 g/dL (32.0-36.0); Mean Corpuscular Volume 86.5 fL (80.0-100.0); Mean Platelet Volume 11.5 fL (9.4-12.4); Monocytes # (auto) 0.65 K/uL (0.11-0.59); Monocytes % (auto) 7.5 %; Neutrophils % (auto) 57.8 %; Platelet Count 243 K/uL (130-400); RDW Standard Deviation 43.5 fL (36.4-46.3); Red Blood Count 4.15 M/uL (4.20-5.40); White Blood Count 8.66 K/ul (4.8-10.8)
[2022-09-09 06:27] LABS: Albumin Level 2.5 gm/dl (3.4-5.0); BUN Creatinine Ratio 4.7 (10-20); Calcium 7.6 mg/dl (8.6-10.3); Est GFR (African American) 85.1 ml/min; Est GFR (Non-African American) 73.4 ml/min; Magnesium 1.7 mg/dl (1.7-2.4); Phosphorus 2.2 mg/dl (2.5-4.9); Potassium 4.7 mmol/L (3.5-5.1)
[2022-09-09 07:34] LABS: Estimated Average Glucose 246 mg/dl; Hemoglobin A1C 10.2 % (4.5-5.6)
[2022-09-09] MEDS: fluvoxaMINE MALEATE 50 MG TAB PO SCH (08:41)
[2022-09-09] MEDS: SUCRALFATE 1 GM TAB PO SCH ×4 (08:41→21:24)
--- NOTE | 2022-09-09 08:41 | Electrocardiogram Report ---
Test Reason : Blood Pressure : / mmHG Vent. Rate : 058 BPM Atrial Rate : 058 BPM P-R Int : 144 ms QRS Dur : 066 ms QT Int : 470 ms P-R-T Axes : 050 062 030 degrees QTc Int : 461 ms Sinus bradycardia Diffuse Minor Nonspecific ST abnormality Abnormal ECG When compared with ECG of 08-SEP-2022 05:39, Nonspecific T wave abnormality no longer evident in Anterolateral leads Confirmed by Garcia Harris ([id number]) on 09/09/2022 8:41:38 AM Referred By: REFERRED SELF Confirmed By:Garcia Harris
[2022-09-09] MEDS: PANTOprazole 40 MG TAB PO SCH (08:42)
[2022-09-09] MEDS: POTASSIUM CHLORIDE CRTAB 20 MEQ TABCR PO SCH ×2 (08:42→21:22)
[2022-09-09] MEDS: PROPRANOLOL HCL 60 MG LA CAP PO SCH (08:42)
[2022-09-09] MEDS ORDERED: SODIUM PHOSPHATE 3 MMOL/1 ML INFUSION IV STA (08:44)
[2022-09-09] MEDS: ONDANSETRON INJ 2 MG/ML 2 ML VIAL IV PRN (08:47)
[2022-09-09] MEDS: INSULIN ASPART PER UNIT CHARGE SC SCH ×4 (08:47→21:17)
[2022-09-09] MEDS ORDERED: SODIUM PHOSPHATE 15 MMOL in SODIUM CHLORIDE 0.9% 250 ML IV ONE (09:00)
--- NOTE | 2022-09-09 15:49 | Hospitalist Progress Note ---
Date of Service September 09, 2022 Assessment & Plan (1) Proctocolitis: Plan: Proctocolitis- seen on CT scan 09/07/2022 no free air no acute diverticulitis Stool PCR and test for C. difficile results not available due to lack of sample Full liquid diabetic diet as tolerated For now start Flagyl 500 mg IV every 8 hours (2) Hyperglycemia due to type 2 diabetes mellitus: Plan: Diabetes mellitus- Hold outpatient regimen since dietary intake is likely to be reduced Placed on Accu-Cheks with NovoLog sliding scale electrolyte abnormalities persist replete phos (3) Depression: Plan: depression with anxiety (4) Status post insertion of drug-eluting stent into left anterior descending (LAD) artery: Plan: coronary artery disease with patient remains on Brilinta, propranolol and atorvastatin (5) Diabetes type 2, uncontrolled: Plan: will be placed on insulin sliding scale patient with chronic kidney disease stage III secondary to diabetic effects Plan CAD/hypertension/stented LAD- Continue atorvastatin, propranolol, Brilinta PT/OT evaluation Admission and Anticipated Discharge Date Admission Date: September 07, 2022 Subjective pt is having less diarrhea, infact is constipated still with electrolyte abnormalities Physical Exam Physical Exam: patient awake and appropriate abdomen NABS soft no organomegaly mild RUQ pain lft on presentation normal Results & Data Results & Data Vital Signs (Past 12 Hours) Vital Signs Temp Pulse Pulse Resp BP Pulse Ox O2 Del Method 09/09/22 15:34 97.5 F L 57 L 16 115/70 97 Room Air 09/09/22 08:00 62 09/09/22 11:23 97.9 F 89 20 136/79 94 Room Air 09/09/22 07:51 98.2 F 57 L 20 145/83 H 95 Room Air Laboratory Results review chemistry reviewed cbc PG Care Time/CCT Total # of Minutes Spent Total Time Spent with Patient: Total time spent is greater than 50% in coordination of care (as documented) at patient's floor/unit and/or counseling patient: Coding Level of Care Code 80809 SUB INP/OBS CARE 2/35MIN Diagnoses Proctocolitis K52.9 Hyperglycemia due to type 2 diabetes mellitus E11.65 Depression F32.9 Status post insertion of drug-eluting stent into left anterior descending (LAD) artery Z95.5 Diabetes type 2, uncontrolled E11.65
[2022-09-09] MEDS: TICAGRELOR 90 MG TAB PO SCH (17:20)
[2022-09-09] MEDS: FAMOTIDINE 20 MG TAB PO SCH (17:20)
[2022-09-09] MEDS: ATORVASTATIN 40 MG TAB PO SCH (21:13)
[2022-09-09] MEDS: ENOXAPARIN INJ 40 MG/0.4 ML SYR SQ SCH (21:24)
[2022-09-10] MEDS: TICAGRELOR 90 MG TAB PO SCH ×2 (01:09→17:11)
[2022-09-10] MEDS: FAMOTIDINE 20 MG TAB PO SCH ×2 (01:09→17:10)
[2022-09-10 06:26] LABS: Basophils # (auto) 0.03 K/uL (0-0.2); Basophils % (auto) 0.3 %; Eosinophils # (auto) 0.35 K/uL (0-0.50); Eosinophils % (auto) 3.3 %; Hematocrit (blood only) 37.8 % (37.0-47.0); Hemoglobin 12.5 g/dl (12.0-16.0); Immature Granulocytes # (auto) 0.04 K/uL (0.01-0.20); Immature Granulocytes % (auto) 0.4 %; Lymphocytes # (auto) 2.35 K/uL (1.2-3.4); Lymphocytes % (auto) 22.4 %; Mean Corpuscular Hemoglobin 28.6 pg (25.0-34.0); Mean Corpuscular Hgb Conc 33.1 g/dL (32.0-36.0); Mean Corpuscular Volume 86.5 fL (80.0-100.0); Mean Platelet Volume 11.9 fL (9.4-12.4); Monocytes # (auto) 0.68 K/uL (0.11-0.59); Monocytes % (auto) 6.5 %; Neutrophils # (auto) 7.03 K/uL (1.40-6.50); Neutrophils % (auto) 67.1 %; Platelet Count 250 K/uL (130-400); RDW Coefficient of Variation 13.9 % (11.5-14.5); RDW Standard Deviation 44.1 fL (36.4-46.3); Red Blood Count 4.37 M/uL (4.20-5.40); White Blood Count 10.48 K/ul (4.8-10.8)
[2022-09-10] MEDS: LEVOTHYROXINE SODIUM 88 MCG TABLET PO SCH (06:37)
[2022-09-10] MEDS: metroNIDAZOLE 500 MG/100 ML BAG IV SCH ×3 (06:41→21:42)
[2022-09-10 06:42] LABS: Albumin Level 2.6 gm/dl (3.4-5.0); BUN Creatinine Ratio 7.6 (10-20); Calcium 8.5 mg/dl (8.6-10.3); Creatinine Clr Calc Pharmacy 60.1 ml/min; Est GFR (African American) 77.3 ml/min; Est GFR (Non-African American) 66.7 ml/min; Magnesium 1.5 mg/dl (1.7-2.4); Phosphorus 3.5 mg/dl (2.5-4.9); Potassium 5.5 mmol/L (3.5-5.1)
[2022-09-10] MEDS: ONDANSETRON INJ 2 MG/ML 2 ML VIAL IV PRN (08:06)
[2022-09-10] MEDS: SUCRALFATE 1 GM TAB PO SCH ×4 (08:11→21:33)
[2022-09-10] MEDS: fluvoxaMINE MALEATE 50 MG TAB PO SCH (08:14)
[2022-09-10] MEDS: POTASSIUM CHLORIDE CRTAB 20 MEQ TABCR PO SCH ×2 (08:16→21:33)
[2022-09-10] MEDS: PROPRANOLOL HCL 60 MG LA CAP PO SCH (08:17)
[2022-09-10] MEDS: PANTOprazole 40 MG TAB PO SCH (08:18)
[2022-09-10] MEDS: ACETAMINOPHEN 500 MG TAB PO PRN ×2 (09:02→17:46)
[2022-09-10] MEDS: INSULIN ASPART PER UNIT CHARGE SC SCH ×4 (09:03→21:30)
[2022-09-10] MEDS: PROMETHAZINE HCL 12.5 MG/10 ML UDP PO PRN (12:33)
[2022-09-10] MEDS: ATORVASTATIN 40 MG TAB PO SCH (21:34)
[2022-09-10] MEDS: ENOXAPARIN INJ 40 MG/0.4 ML SYR SQ SCH (21:35)
[2022-09-11] MEDS: TICAGRELOR 90 MG TAB PO SCH ×2 (00:30→16:29)
[2022-09-11] MEDS: FAMOTIDINE 20 MG TAB PO SCH ×2 (00:31→16:29)
[2022-09-11] MEDS: LEVOTHYROXINE SODIUM 88 MCG TABLET PO SCH (06:33)
[2022-09-11] MEDS: SUCRALFATE 1 GM TAB PO SCH ×3 (06:34→16:29)
[2022-09-11] MEDS: PANTOprazole 40 MG TAB PO SCH (08:43)
[2022-09-11] MEDS: PROPRANOLOL HCL 60 MG LA CAP PO SCH (08:43)
[2022-09-11] MEDS: INSULIN ASPART PER UNIT CHARGE SC SCH ×4 (08:43→21:32)
[2022-09-11] MEDS: fluvoxaMINE MALEATE 50 MG TAB PO SCH (08:44)
[2022-09-11] MEDS: POTASSIUM CHLORIDE CRTAB 20 MEQ TABCR PO SCH ×2 (08:44→22:42)
[2022-09-11] MEDS: metroNIDAZOLE 500 MG TAB PO SCH ×2 (08:44→20:57)
[2022-09-11] MEDS ORDERED: IBUPROFEN 200 MG TAB PO STA (09:07)
--- NOTE | 2022-09-11 10:40 | XRay Report ---
XR ribs LT min 2V w CXR1V HISTORY: 61 years-old Female left rib pain acute left-sided rib pain COMPARISON: 09/07/2022 TECHNIQUE: AP view of the chest with 4 views of the left ribs FINDINGS: Coronary arterial stent. Mild cardiomegaly. No pneumothorax, pleural effusion, airspace consolidation or pulmonary edema. No acute displaced rib fracture. IMPRESSION: 1. No acute process of the chest. 2. No acute displaced rib fracture or pneumothorax. ACT 112: Negative or not required by law. The above report was generated using voice recognition software. It may contain grammatical, syntax o r spelling errors. Electronically signed by: Willard Cooper M.D. 09/11/2022 10:38 AM
[2022-09-11] MEDS: ACETAMINOPHEN 500 MG TAB PO PRN (19:22)
[2022-09-11] MEDS: ENOXAPARIN INJ 40 MG/0.4 ML SYR SQ SCH (20:58)
[2022-09-11] MEDS: ATORVASTATIN 40 MG TAB PO SCH (20:58)
[2022-09-12] MEDS: SUCRALFATE 1 GM TAB PO SCH ×5 (01:10→20:29)
[2022-09-12] MEDS: TICAGRELOR 90 MG TAB PO SCH ×3 (01:10→23:35)
[2022-09-12] MEDS: FAMOTIDINE 20 MG TAB PO SCH ×3 (01:11→23:34)
[2022-09-12] MEDS ORDERED: IBUPROFEN 200 MG TAB PO STA (01:20)
[2022-09-12] MEDS: LEVOTHYROXINE SODIUM 88 MCG TABLET PO SCH (06:51)
[2022-09-12] MEDS: INSULIN ASPART PER UNIT CHARGE SC SCH ×4 (08:32→20:33)
[2022-09-12] MEDS: PROPRANOLOL HCL 60 MG LA CAP PO SCH (08:33)
[2022-09-12] MEDS: POTASSIUM CHLORIDE CRTAB 20 MEQ TABCR PO SCH ×2 (08:34→20:29)
[2022-09-12] MEDS: metroNIDAZOLE 500 MG TAB PO SCH ×2 (08:34→20:29)
[2022-09-12] MEDS: fluvoxaMINE MALEATE 50 MG TAB PO SCH (08:34)
[2022-09-12] MEDS: PANTOprazole 40 MG TAB PO SCH (08:34)
[2022-09-12] MEDS: MECLIZINE HCL 25 MG TAB PO PRN (08:35)
[2022-09-12] MEDS: ENOXAPARIN INJ 40 MG/0.4 ML SYR SQ SCH (20:28)
[2022-09-12] MEDS: ATORVASTATIN 40 MG TAB PO SCH (20:29)
[2022-09-12] MEDS: ACETAMINOPHEN 500 MG TAB PO PRN (22:14)
[2022-09-13] MEDS: LEVOTHYROXINE SODIUM 88 MCG TABLET PO SCH (05:42)
[2022-09-13] MEDS: ACETAMINOPHEN 500 MG TAB PO PRN ×2 (08:47→22:36)
[2022-09-13] MEDS: fluvoxaMINE MALEATE 50 MG TAB PO SCH (08:47)
[2022-09-13] MEDS: INSULIN ASPART PER UNIT CHARGE SC SCH ×4 (08:47→20:57)
[2022-09-13] MEDS: SUCRALFATE 1 GM TAB PO SCH ×4 (08:48→20:58)
[2022-09-13] MEDS: PANTOprazole 40 MG TAB PO SCH (08:48)
[2022-09-13] MEDS: POTASSIUM CHLORIDE CRTAB 20 MEQ TABCR PO SCH ×2 (08:48→20:58)
[2022-09-13] MEDS: PROPRANOLOL HCL 60 MG LA CAP PO SCH (08:48)
[2022-09-13] MEDS: metroNIDAZOLE 500 MG TAB PO SCH ×2 (08:49→21:01)
[2022-09-13] MEDS: PROMETHAZINE HCL 12.5 MG/10 ML UDP PO PRN (11:41)
[2022-09-13] MEDS: MECLIZINE HCL 25 MG TAB PO PRN (12:24)
[2022-09-13] MEDS: FAMOTIDINE 20 MG TAB PO SCH (15:53)
[2022-09-13] MEDS: TICAGRELOR 90 MG TAB PO SCH (15:53)
[2022-09-13] MEDS: ATORVASTATIN 40 MG TAB PO SCH (21:00)
[2022-09-13] MEDS: ENOXAPARIN INJ 40 MG/0.4 ML SYR SQ SCH (22:35)
--- NOTE | 2022-09-13 23:25 | Hospitalist Progress Note ---
Date of Service September 13, 2022 Patient seen in hospitalist rounds at 1433 and to me looks better than on entry. She does not admit to feeling better and describes nausea and anorexia. Assessment & Plan (1) Proctocolitis: Plan: Proctocolitis- seen on CT scan 09/07/2022 no free air no acute diverticulitis Stool PCR and test for C. difficile results not available due to lack of sample Full liquid diabetic diet as tolerated For now start Flagyl 500 mg IV every 8 hours (2) Hyperglycemia due to type 2 diabetes mellitus: Plan: Diabetes mellitus- Hold outpatient regimen since dietary intake is likely to be reduced Placed on Accu-Cheks with NovoLog sliding scale electrolyte abnormalities persist replete phos (3) Depression: Plan: depression with anxiety (4) Status post insertion of drug-eluting stent into left anterior descending (LAD) artery: Plan: coronary artery disease with patient remains on Brilinta, propranolol and atorvastatin (5) Diabetes type 2, uncontrolled: Plan: will be placed on insulin sliding scale patient with chronic kidney disease stage III secondary to diabetic effects Plan CAD/hypertension/stented LAD- Continue atorvastatin, propranolol, Brilinta PT/OT evaluation Admission and Anticipated Discharge Date Admission Date: September 07, 2022 Anticipated date of discharge: 09/14/22 Physical Exam Constitutional: WD/WN, vitals as above Eyes: PERRL, conjunctivae normal, anicteric sclerae ENMT: external ear and nose normal, oropharynx normal Neck: trachea midline, no thyromegaly Respiratory: normal respiratory effort, lungs clear to auscultation Cardiovascular: RRR, no murmur, no edema Gastrointestinal (Abdomen): normal bowel sounds, soft, nontender, no hepatosplenomegaly Musculoskeletal: no cyanosis or clubbing, extremities motor strength 5/5 Skin: no rashes, warm and dry Results & Data Results & Data Vital Signs (Past 12 Hours) Vital Signs Temp Pulse Pulse Resp BP Pulse Ox O2 Del Method 09/13/22 19:12 36.7 C 50 L 18 100/71 96 Room Air 09/13/22 15:22 52 L 09/13/22 14:41 36.5 C 52 L 18 137/82 96 09/13/22 11:54 36.5 C 52 L 18 137/82 96 Room Air PG Care Time/CCT Total # of Minutes Spent Total Time Spent with Patient: Total time spent is greater than 50% in coordination of care (as documented) at patient's floor/unit and/or counseling patient: Coding Level of Care Code 47087 SUB INP/OBS CARE 2/35MIN Diagnoses Proctocolitis K52.9 Hyperglycemia due to type 2 diabetes mellitus E11.65 Depression F32.9 Status post insertion of drug-eluting stent into left anterior descending (LAD) artery Z95.5 Diabetes type 2, uncontrolled E11.65 Time Spent (min) 35
[2022-09-14] MEDS: TICAGRELOR 90 MG TAB PO SCH ×2 (00:49→15:28)
[2022-09-14] MEDS: FAMOTIDINE 20 MG TAB PO SCH ×2 (00:50→15:28)
[2022-09-14] MEDS: LEVOTHYROXINE SODIUM 88 MCG TABLET PO SCH (05:31)
[2022-09-14] MEDS: PROMETHAZINE HCL 12.5 MG/10 ML UDP PO PRN (08:22)
[2022-09-14] MEDS: POTASSIUM CHLORIDE CRTAB 20 MEQ TABCR PO SCH (08:53)
[2022-09-14] MEDS: INSULIN ASPART PER UNIT CHARGE SC SCH ×2 (08:53→12:45)
[2022-09-14] MEDS: SUCRALFATE 1 GM TAB PO SCH ×3 (08:53→15:28)
[2022-09-14] MEDS: PANTOprazole 40 MG TAB PO SCH (08:53)
[2022-09-14] MEDS: MECLIZINE HCL 25 MG TAB PO PRN (08:54)
[2022-09-14] MEDS: metroNIDAZOLE 500 MG TAB PO SCH (08:54)
[2022-09-14] MEDS: fluvoxaMINE MALEATE 50 MG TAB PO SCH (08:54)
[2022-09-14] MEDS: PROPRANOLOL HCL 60 MG LA CAP PO SCH (08:54)
--- NOTE | 2022-09-14 11:09 | Discharge Summary ---
Date of Service September 14, 2022 Admission HPI Per Admitting Provider The patient is a 61-year-old female with a past medical history including diabetes mellitus, urinary tract infection, GERD, hypomagnesemia, hypokalemia, depression with anxiety, vitamin D deficiency, B12 deficiency, hypothyroidism, hypertension, NSTEMI, coronary artery stent placement and fatigue. She presents to the emergency department with symptoms as noted above. Significant laboratories: WBC 13.68, potassium 2.3, magnesium 1.1, glucose 316, albumin 3.0 Imaging studies: Chest x-ray negative, CT head negative, CT scan of abdomen pelvis suggest proctocolitis Treatment from the ED: 10 mEq potassium chloride riders x2, magnesium 1 g IV x2, normal saline 1 L, Reglan 10 mg IV Principal Diagnosis acute proctocolitis Discharge Exam Constitutional WD/WN, vitals as above Eyes PERRL, conjunctivae normal, anicteric sclerae ENMT external ear and nose normal, oropharynx normal Neck trachea midline, no thyromegaly Respiratory normal respiratory effort, lungs clear to auscultation Cardiovascular RRR, no murmur, no edema Gastrointestinal (Abdomen) normal bowel sounds, soft, nontender, no hepatosplenomegaly Musculoskeletal no cyanosis or clubbing, extremities motor strength 5/5 Skin no rashes, warm and dry Discharge Data Allergies Allergy/AdvReac Type Severity Reaction Status Date / Time dulaglutide [From Trulicity] AdvReac Intermediate stomach Verified 07/19/22 14:57 pain albiglutide [From Tanzeum] AdvReac Unknown CAN'T Verified 07/19/22 14:57 REMEMBER Consultations 09/07/22 19:55 ED Decision to Admit Stat Ordered Studies 09/07/22 17:23 CT head/brain wo con Stat 09/07/22 17:27 CT abd pelvis IV con only Stat Diabetes Follow up Diabetes Follow-up Needed for HgbA1c >9% Hospital Course (1) Proctocolitis: Proctocolitis- seen on CT scan 09/07/2022 no free air no acute diverticulitis Stool PCR and test for C. difficile results not available due to lack of sample Full liquid diabetic diet as tolerated For now start Flagyl 500 mg IV every 8 hours (2) Hyperglycemia due to type 2 diabetes mellitus: Diabetes mellitus- Hold outpatient regimen since dietary intake is likely to be reduced Placed on Accu-Cheks with NovoLog sliding scale electrolyte abnormalities persist replete phos (3) Depression: depression with anxiety (4) Status post insertion of drug-eluting stent into left anterior descending (LAD) artery: coronary artery disease with patient remains on Brilinta, propranolol and atorvastatin (5) Diabetes type 2, uncontrolled: will be placed on insulin sliding scale patient with chronic kidney disease stage III secondary to diabetic effects Plan CAD/hypertension/stented LAD- Continue atorvastatin, propranolol, Brilinta PT/OT evaluation Total Time Total Time Spent Total Time Spent (In Minutes): 42 Discharge Plan Discharge Items Patient Disposition: Home - Self-Care Reason For Visit: PROCTOCOLITIS,HYPOMAGNESEMIA,HYPOKALEMIA,TREMOR Discharge Diagnosis: Acute Proctocolitis Condition on Discharge: Good Health Concerns: followup with PCP Goals: maintenence and preventative care Activity: Resume your previous activity Lifting: Gradually increase as tolerated Bathing: No limitations Non-emergency contact: Primary Care Provider Call non-emergency contact if: you have any medication questions Follow-up/Referrals: Jc Zaman DO [Primary Care Provider] - 09/19/22 1:00 pm Dietitian Info: If you have nausea you can take your dizziness medicine Diet: Regular Addtl Attending Provider Instructions: na Pending Studies at Discharge: No Stand-Alone Forms: My [employer], Smoking Cessation Medications and DC Order Prescriptions: New metronidazole 500 mg Tablet 500 mg PO BID Qty: 10 0RF Continued famotidine 20 mg tablet 20 mg PO BID Qty: 180 3RF Rx Instructions: TAKES AT 1600 & 2400 Brilinta 90 mg tablet 90 mg PO BID 90 Days Qty: 180 3RF Patient Comments: "I dont know this medications." Rx Instructions: TAKES 1600 & 2400 potassium chloride 20 mEq tablet,ER particles/crystals 40 meq PO QAM Qty: 180 1RF atorvastatin 80 mg tablet 80 mg PO QPM Qty: 90 3RF (DME) pen needle, diabetic [BD Ultra-Fine Cary Pen Needle] 32 gauge x 5/32" needle See Dose Instructions .ROUTE .MEDSUPPLY Qty: 200 11RF Dose Instruction: As directed Rx Instructions: use 2 times daily or as directed by physician to monitor blood sugar sucralfate 1 gram tablet 1 g PO ACHS 30 Days Qty: 120 3RF pantoprazole 40 mg tablet,delayed release (DR/EC) See Rx Instructions .ROUTE .COMPLEX Qty: 90 3RF Dose Instruction: TAKE ONE TABLET BY MOUTH ONCE DAILY Rx Instructions: TAKE ONE TABLET BY MOUTH ONCE DAILY propranolol 60 mg capsule,extended release 24 hr 60 mg PO DAILY Qty: 30 5RF Humulin R U-500 (Conc) Kwikpen 500 unit/mL (3 mL) insulin pen 10 - 20 unit subcut BID Qty: 6 5RF Rx Instructions: 20 units AM (~2-3pm) and 10-15 units PM (~8pm) or as directed (DME) blood-glucose meter [Ubi Autocode Meter] Kit See Rx Instructions .Route Rx Instructions: As directed levothyroxine 88 mcg tablet 88 mcg PO DAILY Qty: 30 5RF betamethasone dipropionate 0.05 % cream 1 applic topical DIRECTED PRN (Reason: Skin Irritation) hydroxyzine HCl 10 mg tablet 10 mg PO TID PRN (Reason: anxiety) Qty: 90 2RF meclizine 25 mg tablet 25 mg PO TID PRN (Reason: dizziness) Rx Instructions: for your dizziness fluvoxamine 100 mg tablet 100 mg PO DAILY nystatin 100,000 unit/gram powder 1 applic topical BID PRN (Reason: Skin Irritation) acetaminophen [Tylenol Extra Strength] 500 mg tablet 1,000 mg PO TID PRN (Reason: Pain) Rx Instructions: OTC Discharge Orders: Discharge Order (Routine); Ordered 09/14/22 Ordered By: Remy Yoder Discharge Order- [facility] (Routine); Ordered 09/14/22 Ordered By: [facility]Other Patient Handouts: Healthy Meals for Diabetes, Understanding Carbohydrates, Eating Out When You Have Diabetes, Diabetes: Keeping Feet Healthy, Diabetes and Kidney Disease, Diabetes: Meal Planning, Diabetes Carbs Fats Protein, Diabetes: Ways to Take Medicine, Diabetes Support, Smoking and Diabetes Admission Data Admit Date/Time: 09/07/22 20:23 Attending Provider: Remy Yoder Admit Provider: Laurent Gaytan Primary Care Provider: Jc Zaman Other Providers: Laurent Gaytan Other Interventions: Discharge Summary Assessment (RN) Last Done: 09/14/22 10:59 Coding Level of Care Code 49301 INP/OBS DISCH >30 MIN Diagnoses Proctocolitis K52.9 Hyperglycemia due to type 2 diabetes mellitus E11.65 Depression F32.9 Status post insertion of drug-eluting stent into left anterior descending (LAD) artery Z95.5 Diabetes type 2, uncontrolled E11.65 Time Spent (min) 42
== END 2022-09-14 17:23 | DRG 392 ==
LOC: ED 16:59 → SUATTDRO 20:23 → 4W 20:23

== ENCOUNTER 2022-12-19 17:30 | Inpatient (IN) ==
[~2022-12-19 17:30] MED LIST changes: -ASPI81TA28 PO; -AUG0.05O4 EXT; -BSP/10 PO; +CALCIUM CHLORIDE 10% 10 ML SYR IV ONE; -HLD1 PO; -HLD1X PO; -INSU100I SC; -INSU100I23 SQ; +KETAMINE HCL INJ 50 MG/ML 10 ML VIAL IV ONE; -LEVO88TA3 PO; -LISI40TA PO; -LORA-741 PO; -LXP20 PO; +MAG SULFATE 50% 1GM/2ML VIAL IV ONE; -METF1000 PO; -METO25TA56 PO; +ROCURONIUM BROMIDE 10 MG/ML 5 ML VIAL IV ONE; -SIMV40TA2 PO; +SODIUM CHLORIDE 0.9% 10ML FLUSH IV ONE; +SODIUM CHLORIDE 0.9% PF INJ 10 ML VIAL IV ONE; -SPR/100 PO
[2022-12-19] MEDS ORDERED: SODIUM CHLORIDE 0.9% 1,000 ML IV ONE ×2 (17:35→17:46)
[2022-12-19] MEDS ORDERED: CEFEPIME 2,000 MG/20 ML VIAL IV STA (17:46)
--- NOTE | 2022-12-19 17:46 | Emergency Department Note ---
Impression & Plan Acute non-ST elevation myocardial infarction (NSTEMI), Hypomagnesemia, Hypokalemia, Respiratory arrest before cardiac arrest, Ventricular tachycardia, Hypocalcemia, Fall ED Provider Note NAME: ELIAN SORENSEN AGE: 62 SEX: F : 1960 ARRIVES VIA: Ambulance INFORMANT: Patient, EMS ED PROVIDER(S): King Amin DO CHIEF COMPLAINT: Weakness HPI: The patient is a 62-year-old female who presented to the emergency department for an evaluation of generalized weakness. She fell last evening about 10 PM. She states that she landed onto her left side but she also thinks she may have struck her face. She was on the floor until she was found today by family. 911 was called. The patient was treated with 200 mL of normal saline solution prior to arrival. She was found to have elevated blood sugar as well as hypotension. The patient complained of pain all over her body. She did not have any deformity of the lower extremities identified. She denies having any headache at this time. She denies having any chest pain. The patient had an abnormal EKG prior to arrival. I did receive a prehospital notification about this patient and the paramedics. ROS: See above HPI for pertinent positives & negatives. A total of 10 systems reviewed and were otherwise negative. PAST MEDICAL HISTORY: See Below PAST SURGICAL HISTORY: See Below FAMILY HISTORY: See Below SOCIAL HISTORY: See Below HOME MEDICATIONS: See Below ALLERGIES: See Below VITALS: See Below PHYSICAL EXAMINATION: GENERAL: The patient is awake and alert. She is answering questions appropriately. She appears to be uncomfortable. EYES: The conjunctivae are clear. The pupils are round and reactive. EARS, NOSE, MOUTH AND THROAT: The nose is without any evidence of any deformity. Mucous membranes are dry. NECK: The neck is nontender and supple. RESPIRATORY: Diminished breath sounds are noted throughout with wheezing in both upper lung bradley. There was tenderness noted to the left lateral chest wall. CARDIOVASCULAR: Regular rate and rhythm noted there no murmurs rubs or gallops normal S1 normal S2. GASTROINTESTINAL: The abdomen was soft and not distended. There is tenderness in the left upper abdomen. It extends to the left lower chest wall. BACK: No midline tenderness was noted. MUSCULOSKELETAL/EXTREMITIES: There is no evidence of gross deformity full range of motion is noted in the hips and shoulders. SKIN: Skin is warm and dry. There is no significant pedal edema. Pulses are symmetric in both feet. NEUROLOGIC: Patient is awake alert and oriented x3. Strength was diminished but symmetric. MEDICAL DECISION MAKING: The patient is a 62-year-old female who presented to the emergency department by ambulance. The patient was on the floor in her home since 10 PM last evening. The patient was found to have a very abnormal EKG upon arrival. She had no specific chest pain. She did have some reproducible left-sided pain especially in the left abdomen and left chest. The appearance of the skin would suggest that is the side the patient was lying on. The patient was awake and alert at times but became obtunded during her time in the emergency department. Laboratory studies were obtained as well as radiographic studies. She had CT scanning to ensure there is no intracranial trauma or chest or abdomen trauma. CTs did not appear to be consistent with any specific trauma. The patient was found to have multiple electrolyte abnormalities including hypokalemia hypomagnesemia and hypocalcemia. The patient's condition continued to worsen while she was in the emergency department. She became very obtunded and her respiratory drive diminished. She started to have episodes of ectopy on the field service representative. She had an episode of ventricular tachycardia and was treated with defibrillation. I discussed the patient's laboratory and radiographic studies with her while she was awake. She did require intubation. She then had a central line placed. She received IV fluids IV antibiotics as well as IV amiodarone because of the ventricular tachycardia. She also received electrolyte replacement. I discussed her condition with the [facility] hospitalist group as well as the on-call tape control skin or spar mill operator as well as the ICU. The patient's condition slowly improved while she was in the emergency department. She was able to be taken to the ICU. Triage Nursing notes reviewed. Prior medical records reviewed Vital Signs: reviewed and remarkable for hypotension and bradycardia. Differential diagnosis: Infection, dehydration, metabolic abnormality, hypo/hyperglycemia, electrolyte disturbance, anemia, hypoxia, cardiac sources, intracerebral event, toxicologic, neurologic, as well as other pathologies. ER treatment provided: See below Diagnostics interpreted by me: ECG: EKG was obtained in the emergency department. My interpretation is normal sinus rhythm at 60 bpm. There is no ectopy. Inferior and low lateral ST depressions were noted. This EKG does have the appearance of ischemia. This was compared to a tracing from October 20, 2022. The changes are new compared to the earlier tracing. Prehospital EKG was evaluated. My interpretation is normal sinus rhythm at [address] depressions are noted in the inferior and low lateral leads. This compares similar to the EKG obtained in the emergency department. A second EKG was obtained in the emergency department. My interpretation is bigeminy at [address] segment abnormalities were noted in the inferior and low lateral leads. This compares similar to the earlier tracing with the addition of the ectopy. 30 EKG was obtained in the emergency department. My interpretation is normal sinus rhythm at [address] depressions were noted in the inferior and low lateral leads. Cardiac Monitoring: An order was placed for continuous cardiac monitoring. The monitor shows a rate of 59 bpm with sinus bradycardia. Laboratory studies: As stated above and show below. Imaging studies: See below. Radiographic imaging was reviewed by myself Consultation(s): I discussed this case with Dr. Fair who is on-call for the [facility] hospitalist group. I discussed this case with Dr. Valentin who is on-call for interventional cardiology. I discussed this case with Sachin who is on for the ICU tonight covering for the scouring machine operator group ED COURSE: Procedures: Endotracheal Intubation Indication respiratory distress. The patient was on 100% oxygen via NRB prior to the procedure. Suction, airway equipment, RSI drugs, respiratory equipment, and appropriate personnel were prepared prior to the initiation of the procedure. A time out was taken. Induction was performed with ketamine and rocuronium. After observing the clinical benefit of the medications, the airway was easily visualized utilizing a glide scope. A 7.5 size ETT tube was placed atraumatically to 23 cm using standard technique. The cuff inflated without signs of malfunction. There were bilateral breath sounds, positive colormetric change, no gastric sounds, a good capnography waveform, and post procedure pulse oximetry was 97%. Post intubation sedation and paralysis was administered using propofol. There were no complications. Femoral Central Venous Catheter Indication: Respiratory arrest Catheter Type: Triple-lumen Location: Right femoral vein Verbal consent was obtained after the risks and benefits were explained, including but not limited to intra-abdominal injury, vessel injury, bleeding, scarring, infection, pain, and bone/joint/nerve damage. At this time, the risks of the procedure are less than the risks of NOT performing the procedure. A time out was taken and the correct patient and site identified. The patient was placed in the supine position and the skin was prepped in the standard fashion with chlorhexidine and full sterile drapes applied. The proper landmarks were identified with ultrasound, anesthetized with 1% lidocaine without epinephrine, and the needle was inserted through the skin in the standard fashion. The needle was carefully advanced into blood vessel lumen with ultrasound guidance. The guidewire was placed uneventfully. The vessel is dilated and the catheter was placed. It was sutured into position. There was good blood return from all ports. The patient tolerated the procedure well and there were no complications. Critical Care: I have personally spent greater than 65 minutes of critical care time in the direct management of this patient. This includes bedside care, interpretation of diagnostic studies, and testing, discussion with consultants, patient, and family members, and other required patient management activities. This 65 minutes is in excess of all separately billable procedures. Past Med/Surg History Medical History Acute on chronic combined systolic and diastolic CHF (congestive heart failure) Nausea vomiting and diarrhea Bradycardia with 41-50 beats per minute Hyperglycemia Chest pain Chest pain Hypokalemia Hypomagnesemia Accelerated hypertension Albuminuria Diabetic nephropathy associated with type 2 diabetes mellitus Depression Osteoarthritis Chronic headaches CAD (coronary artery disease) No remaining occlusive disease after 2 LAD drug eluting stents 10/22/20. Follows with Dr. Harris NSTEMI (non-ST elevated myocardial infarction) 10/22/2020 s/p 2 CHANTAL Vulvitis Diabetes type 2, uncontrolled IDDM Dyslipidemia Tobacco abuse Hypertension Hypothyroidism Obesity Anxiety Surgical History History of cardiac catheterization 10/22/2020 Dominant: Right Left Main (% Stenosis): Normal LAD (% Stenosis): Proximal (99) and Mid (75) Circumflex (% Stenosis): Normal (luminal irregularities) RCA (% Stenosis): Normal (Luminal irregularities) 2 CHANTAL to LAD S/P coronary artery stent placement 2 CHANTAL to LAD 10/22/2020 History of cholecystectomy History of dental surgery History of tonsillectomy Family History Unknown Diabetes Thyroid disorder Father Diabetes Other No family history of adverse response to anesthesia Denies family history of Ovarian cancer Prostate cancer Breast cancer Colorectal cancer Uterine cancer Social History Smoking Status: Never smoker Tobacco Type: Cigarettes packs per day: 0.5; Cigarettes Per Day: 10; Second Hand Exposure: No; Do You Dip or Chew Tobacco: No; Hx Alcohol Use: No Hx Substance Use: No Preferred Language: Hungarian Communication Ability: Effective Visual Impairment: No Limitations 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 Mill Supervisor Required: No Beliefs That Will Affect Care: None marital status: Single Current Living Situation: Alone current occupational status: disabled How many Children do You have: 0 Feels Safe at Home: Yes Safety Concerns Comment: Gets nervous sometimes because she lives alone, gets shaky from anxiety Diet: regular caffeine: Yes Dental Care, Regularly: No Physical Activity Frequency: Does not Exercise Seatbelt Use: always Sunscreen Use: No Assistive Devices: Walker Allergies Allergies Allergy/AdvReac Type Severity Reaction Status Date / Time dulaglutide [From Trulicity] AdvReac Intermediate stomach Verified 11/15/22 16:15 pain albiglutide [From Tanzeum] AdvReac Unknown CAN'T Verified 11/15/22 16:15 REMEMBER Home Meds Home Medications Medication Instructions Recorded Confirmed nystatin 100,000 unit/gram topical 1 applic topical BID PRN Skin 08/20/21 12/19/22 powder Irritation meclizine 25 mg tablet 25 mg PO TID PRN dizziness 10/11/21 12/19/22 blood-glucose meter (Prodigy 10/15/21 12/19/22 Autocode Meter kit) acetaminophen 500 mg tablet 1,000 mg PO TID PRN Pain 01/25/22 12/19/22 (Tylenol Extra Strength) betamethasone dipropionate 0.05 % 1 applic topical DIRECTED PRN 05/03/22 12/19/22 topical cream Skin Irritation fluvoxamine 50 mg tablet 50 mg PO HS 10/17/22 12/19/22 famotidine 20 mg tablet 40 mg PO BID 12/19/22 12/19/22 pantoprazole 40 mg tablet,delayed 40 mg PO DAILY 12/19/22 12/19/22 release Previous Rx's Medication Instructions Recorded levothyroxine 88 mcg tablet 88 mcg PO DAILY #30 tabs 10/15/21 hydroxyzine HCl 10 mg tablet 10 mg PO TID PRN anxiety #90 tabs 05/03/22 pen needle, diabetic 32 gauge x #200 ea 06/28/22" (BD Ultra-Fine Cary Pen Needle) sucralfate 1 gram tablet 1 g PO ACHS 30 days #120 tabs 07/01/22 insulin regular hum U-500 conc 500 10 - 20 unit (0.02 - 0.04 mL) 07/19/22 unit/mL(3 mL) subcut pen (Humulin subcut BID #6 mL R U-500 (Conc) Insulin Kwikpen) atorvastatin 80 mg tablet 80 mg PO QPM #90 tabs 10/03/22 aspirin 81 mg tablet,delayed 81 mg PO QAM #30 tabs 10/29/22 release docusate sodium 100 mg capsule 100 mg PO BID #60 caps 10/29/22 polyethylene glycol 3350 17 gram 17 g PO DAILY #30 ea 10/29/22 oral powder packet (Miralax) ticagrelor 90 mg tablet (Brilinta) 90 mg PO BID #60 tabs 10/29/22 metoclopramide HCl 5 mg tablet 5 mg PO AC #90 tabs 11/06/22 Results & Data (ED) Vital Signs Vital Signs - 24 hr 12/19/22 17:17 12/19/22 17:17 12/19/22 17:37 Pulse Rate 60 66 Pulse Rate from SpO2 Sensor Respiratory Rate 18 Blood Pressure 76/60 L Blood Pressure Mean 65 Blood Pressure Position Sitting Pulse Oximetry 93 94 Oxygen Delivery Method Room Air Room Air Fraction of Inspired Oxygen Sepsis Recent Fever Within 48 Hours No Sepsis New/Unexplained Change in Mental Status N/A Sepsis Action Taken by Nursing No Action Required End-Tidal CO2 12/19/22 17:41 12/19/22 17:51 12/19/22 17:59 Pulse Rate 66 60 Pulse Rate from SpO2 Sensor 65 60 Respiratory Rate 16 18 Blood Pressure 76/60 L 108/61 Blood Pressure Mean 65 76 Blood Pressure Position Pulse Oximetry 92 93 94 Oxygen Delivery Method Room Air Room Air Room Air Fraction of Inspired Oxygen Sepsis Recent Fever Within 48 Hours Sepsis New/Unexplained Change in Mental Status Sepsis Action Taken by Nursing End-Tidal CO2 12/19/22 18:29 12/19/22 18:45 12/19/22 18:50 Pulse Rate 88 104 H 77 Pulse Rate from SpO2 Sensor Respiratory Rate 16 Blood Pressure Blood Pressure Mean Blood Pressure Position Pulse Oximetry 93 Oxygen Delivery Method Fraction of Inspired Oxygen 60 Sepsis Recent Fever Within 48 Hours Sepsis New/Unexplained Change in Mental Status Sepsis Action Taken by Nursing End-Tidal CO2 35 12/19/22 18:56 12/19/22 19:05 12/19/22 19:10 Pulse Rate 79 73 75 Pulse Rate from SpO2 Sensor Respiratory Rate 16 16 Blood Pressure 110/68 127/76 Blood Pressure Mean 82 93 Blood Pressure Position Pulse Oximetry 98 99 Oxygen Delivery Method Mechanical Vent Mechanical Vent Fraction of Inspired Oxygen 60 60 Sepsis Recent Fever Within 48 Hours Sepsis New/Unexplained Change in Mental Status Sepsis Action Taken by Nursing End-Tidal CO2 34 35 12/19/22 19:17 12/19/22 19:20 Pulse Rate 74 68 Pulse Rate from SpO2 Sensor Respiratory Rate 16 16 Blood Pressure 130/85 105/67 Blood Pressure Mean 100 79 Blood Pressure Position Pulse Oximetry 100 100 Oxygen Delivery Method Mechanical Vent Mechanical Vent Fraction of Inspired Oxygen 60 60 Sepsis Recent Fever Within 48 Hours Sepsis New/Unexplained Change in Mental Status Sepsis Action Taken by Nursing End-Tidal CO2 35 33 Home Medications Current Medication List: was personally reviewed by me Laboratory Data Attestation: I reviewed the patient's lab results. 12/19/22 17:45 12/19/22 21:03 Lab Results 12/19/22 12/19/22 12/19/22 Range/Units 17:39 17:45 17:53 WBC 17.74 H (4.8-10.8) K/ul RBC 5.55 H (4.20-5.40) M/uL Hgb 16.0 (12.0-16.0) g/dl Hct 45.3 (37.0-47.0) % MCV 81.6 (80.0-100.0) fL MCH 28.8 (25.0-34.0) pg MCHC 35.3 (32.0-36.0) g/dL RDW Std Deviation 41.8 (36.4-46.3) fL RDW Coeff of Umair 14.6 H (11.5-14.5) % Plt Count 330 (130-400) K/uL MPV 11.6 (9.4-12.4) fL Immature Gran % (Auto) 0.5 % Neut % (Auto) 87.1 % Lymph % (Auto) 6.3 % [place] % (Auto) 5.7 % Eos % (Auto) 0.2 % Baso % (Auto) 0.2 % Neut # (Auto) 15.45 H (1.40-6.50) K/uL Lymph # (Auto) 1.12 L (1.20-3.40) K/uL [place] # (Auto) 1.01 H (0.11-0.59) K/uL Eos # (Auto) 0.03 (0.00-0.50) K/uL Baso # (Auto) 0.04 (0.00-0.20) K/uL Immature Gran # (Auto) 0.09 (0.01-0.20) K/uL PT 10.8 (9.0-12.0) Seconds INR 1.0 (0.9-1.1) APTT 24.5 (21.0-31.0) Seconds PTT Ratio 0.9 VBG pH (7.36-7.41) VBG pCO2 (38-50) mmHg VBG pO2 mmHg VBG HCO3 mmol/L VBG O2 Saturation % VBG Base Excess mEq/L Sodium 140 (136-145) mmol/L Potassium 1.5 L* (3.5-5.1) mmol/L Chloride 96 L (98-107) mmol/L Carbon Dioxide 31 (21-32) mmol/L Anion Gap 13 H (3-11) BUN 6 (6-23) mg/dl Creatinine 1.13 (0.6-1.2) mg/dl Est Cr Clr Drug Dosing 46.4 ml/min Est GFR ( Amer) 59.9 ml/min Est GFR (Non-Af Amer) 51.7 ml/min BUN/Creatinine Ratio 5.3 L (10-20) Glucose 393 H* (70-99(Fasting)) mg/dl POC Glucose 380 H* (70-99) mg/dl Lactate 3.4 H* (0.4-2.0) mmol/L Calcium 6.7 L (8.6-10.3) mg/dl Magnesium 1.1 L (1.7-2.4) mg/dl Total Bilirubin 1.4 H (0.2-1.0) mg/dl Direct Bilirubin 0.5 H (0-0.2) mg/dl AST 28 (13-39) U/L ALT 16 (7-52) U/L Alkaline Phosphatase 184 H (34-104) U/L Total Creatine Kinase 848 H (26-192) U/L Troponin I High Sens 1083.3 H* (0-14) pg/ml Total Protein 6.7 (6.0-8.3) gm/dl Albumin 2.9 L (3.4-5.0) gm/dl Procalcitonin 0.09 (0-0.5) ng/ml Urine Color Yellow Urine Appearance Clear (Clear) Urine pH 6.5 (4.5-7.5) Ur Specific [place] 1.011 (1.000-1.030) Urine Protein Negative (Negative) Urine Glucose (UA) 3+ H (Negative) Urine Ketones Negative (Negative) Urine Blood Trace H (Negative) Urine Nitrite Negative (Negative) Urine Bilirubin Negative (Negative) Urine Urobilinogen Negative (Negative) Ur Leukocyte Esterase Negative (Negative) Urine WBC (Auto) 1-5 (0-5) /hpf Urine RBC (Auto) 0-4 (0-4) /hpf U Hyaline Cast (Auto) 0 (0-5) /lpf U Epithel Cells (Auto) 0-5 (0-5) /lpf Urine Bacteria (Auto) Negative (Negative) Blood Type Antibody Screen 12/19/22 Range/Units 17:59 WBC (4.8-10.8) K/ul RBC (4.20-5.40) M/uL Hgb (12.0-16.0) g/dl Hct (37.0-47.0) % MCV (80.0-100.0) fL MCH (25.0-34.0) pg MCHC (32.0-36.0) g/dL RDW Std Deviation (36.4-46.3) fL RDW Coeff of Umair (11.5-14.5) % Plt Count (130-400) K/uL MPV (9.4-12.4) fL Immature Gran % (Auto) % Neut % (Auto) % Lymph % (Auto) % [place] % (Auto) % Eos % (Auto) % Baso % (Auto) % Neut # (Auto) (1.40-6.50) K/uL Lymph # (Auto) (1.20-3.40) K/uL [place] # (Auto) (0.11-0.59) K/uL Eos # (Auto) (0.00-0.50) K/uL Baso # (Auto) (0.00-0.20) K/uL Immature Gran # (Auto) (0.01-0.20) K/uL PT (9.0-12.0) Seconds INR (0.9-1.1) APTT (21.0-31.0) Seconds PTT Ratio VBG pH 7.45 H (7.36-7.41) VBG pCO2 48 (38-50) mmHg VBG pO2 < 20 mmHg VBG HCO3 33 mmol/L VBG O2 Saturation < 60.0 % VBG Base Excess 8.1 mEq/L Sodium (136-145) mmol/L Potassium (3.5-5.1) mmol/L Chloride (98-107) mmol/L Carbon Dioxide (21-32) mmol/L Anion Gap (3-11) BUN (6-23) mg/dl Creatinine (0.6-1.2) mg/dl Est Cr Clr Drug Dosing ml/min Est GFR ( Amer) ml/min Est GFR (Non-Af Amer) ml/min BUN/Creatinine Ratio (10-20) Glucose (70-99(Fasting)) mg/dl POC Glucose (70-99) mg/dl Lactate (0.4-2.0) mmol/L Calcium (8.6-10.3) mg/dl Magnesium (1.7-2.4) mg/dl Total Bilirubin (0.2-1.0) mg/dl Direct Bilirubin (0-0.2) mg/dl AST (13-39) U/L ALT (7-52) U/L Alkaline Phosphatase (34-104) U/L Total Creatine Kinase (26-192) U/L Troponin I High Sens (0-14) pg/ml Total Protein (6.0-8.3) gm/dl Albumin (3.4-5.0) gm/dl Procalcitonin (0-0.5) ng/ml Urine Color Urine Appearance (Clear) Urine pH (4.5-7.5) Ur Specific [place] (1.000-1.030) Urine Protein (Negative) Urine Glucose (UA) (Negative) Urine Ketones (Negative) Urine Blood (Negative) Urine Nitrite (Negative) Urine Bilirubin (Negative) Urine Urobilinogen (Negative) Ur Leukocyte Esterase (Negative) Urine WBC (Auto) (0-5) /hpf Urine RBC (Auto) (0-4) /hpf U Hyaline Cast (Auto) (0-5) /lpf U Epithel Cells (Auto) (0-5) /lpf Urine Bacteria (Auto) (Negative) Blood Type A Positive Antibody Screen NEGATIVE Administered Medications Amiodarone HCl/Dextrose (Nexterone / D5w) 360 mg in 200 mls @ 33.333 mls/hr IV ONE ONE Stop: 12/20/22 00:47 Last Admin: 12/19/22 19:00 Dose: 1 mg/min, 33.3 mls/hr Documented By: JT Co-signed By: JEROME Propofol (Diprivan) 1,000 mg in 100 mls @ 4.548 mls/hr IV .Q22H [facility]; Protocol Stop: 12/22/22 19:29 Last Titration: 12/19/22 19:50 Dose: 10 mcg/kg/min, 4.5 mls/hr Documented By: Admin: 12/19/22 19:31 Dose: 20 mcg/kg/min, 9.1 mls/hr Documented By: JT Co-signed By: BENJAMIN Norepinephrine Bitartrate (Levophed/D5w) 4 mg in 250 mls @ 17.055 mls/hr IV .[id number] [facility]; Protocol Stop: 01/18/23 19:29 Last Titration: 12/19/22 21:26 Dose: 0.06 mcg/kg/min, 17.1 mls/hr Documented By: Titration: 12/19/22 20:20 Dose: 0.08 mcg/kg/min, 22.7 mls/hr Documented By: Titration: 12/19/22 19:50 Dose: 0.06 mcg/kg/min, 17.1 mls/hr Documented By: Titration: 12/19/22 19:41 Dose: 0.04 mcg/kg/min, 11.4 mls/hr Documented By: Titration: 12/19/22 19:19 Dose: 0.02 mcg/kg/min, 5.7 mls/hr Documented By: Admin: 12/19/22 19:05 Dose: 0.04 mcg/kg/min, 11.4 mls/hr Documented By: BRIAN Co-signed By: JEROME Discontinued Medications Amiodarone HCl/Dextrose (Amiodarone 150mg / 100ml D5w) Confirm Administered Dose 150 mg IV .STK-MED ONE Stop: 12/19/22 18:37 Last Admin: 12/19/22 19:44 Dose: Not Given Documented By: BRIAN Amiodarone HCl/Dextrose (Amiodarone 360mg / 200ml D5w) Confirm Administered Dose 360 mg IV .STK-MED ONE Stop: 12/19/22 18:39 Last Admin: 12/19/22 19:26 Dose: Not Given Documented By: BRIAN Amiodarone HCl (Amiodarone Iv Bolus & Drip) 1 each IV NOW STA; Protocol Stop: 12/19/22 18:38 Last Admin: 12/19/22 19:26 Dose: Not Given Documented By: BRIAN Sodium Chloride (Nss) 1,000 mls @ 999 mls/hr IV .Q1H1M ONE Stop: 12/19/22 18:35 Last Infusion: 12/19/22 19:02 Dose: Infused Documented By: Admin: 12/19/22 18:01 Dose: 999 mls/hr Documented By: JEROME Sodium Chloride (Nss) 1,000 mls @ 999 mls/hr IV .Q1H1M ONE Stop: 12/19/22 18:46 Last Infusion: 12/19/22 19:02 Dose: Infused Documented By: Admin: 12/19/22 18:01 Dose: 999 mls/hr Documented By: JEROME Cefepime HCl (Maxipime) 2,000 mg in 20 mls @ 5 mls/min IV NOW STA; Protocol Stop: 12/19/22 17:49 Last Admin: 12/19/22 18:04 Dose: 5 mls/min Documented By: JEROME Potassium Chloride (K Esa / Wtr) 10 meq in 100 mls @ 100 mls/hr IV Q1H TONI Stop: 12/19/22 19:59 Last Infusion: 12/19/22 19:04 Dose: Infused Documented By: Admin: 12/19/22 18:04 Dose: 100 mls/hr Documented By: JEROME Magnesium Sulfate/Dextrose (Magnesium Sulfate / D5w) 1 gm in 100 mls @ 100 mls/hr IV NOW STA Stop: 12/19/22 19:35 Last Infusion: 12/19/22 20:30 Dose: Infused Documented By: Admin: 12/19/22 19:24 Dose: 100 mls/hr Documented By: BRIAN Amiodarone HCl/Dextrose (Nexterone / D5w) 150 mg in 100 mls @ 600 mls/hr IV NOW STA Stop: 12/19/22 18:46 Last Infusion: 12/19/22 18:57 Dose: Infused Documented By: BRIAN Co-signed By: BENJAMIN Admin: 12/19/22 18:46 Dose: 600 mls/hr Documented By: BRIAN Co-signed By: JEROME Potassium Chloride (K Esa / Wtr) 20 meq in 100 mls @ 100 mls/hr IV ONE STA Stop: 12/19/22 20:13 Last Infusion: 12/19/22 20:30 Dose: Infused Documented By: Admin: 12/19/22 19:20 Dose: 100 mls/hr Documented By: BRIAN Norepinephrine Bitartrate (Levophed/D5w) 4 mg in 250 mls @ 14.213 mls/hr IV .[id number] TONI; Protocol Stop: 01/18/23 18:59 Last Admin: 12/19/22 19:24 Dose: Not Given Documented By: BRIAN Calcium Chloride 1,000 mg/ (Dextrose) 60 mls @ 240 mls/hr IV 2040 ONE Stop: 12/19/22 20:54 Last Admin: 12/19/22 21:36 Dose: 240 mls/hr Documented By: MAXIMILIAN Ioversol (Optiray 320 100ml) 93 ml IV ONCE ONE Stop: 12/19/22 18:24 Last Admin: 12/19/22 18:24 Dose: 93 ml Documented By: RILEY Urbinaaneous (Rapid Sequence Induction Bag) Confirm Administered Dose 1 each N/A .STK-MED ONE Stop: 12/19/22 18:40 Last Admin: 12/19/22 19:24 Dose: Not Given Documented By: BRIAN Neal (Stat Iv Infusion Titration Per Protocol) 1 each N/A NOW STA Stop: 12/19/22 19:18 Last Admin: 12/19/22 19:23 Dose: Not Given Documented By: BRIAN Norepinephrine Bitartrate (Norepinephrine/D5w 4 Mg/250 Ml) Confirm Administered Dose 4 mg IV .STK-MED ONE Stop: 12/19/22 18:56 Last Admin: 12/19/22 19:22 Dose: Not Given Documented By: BRIAN Imaging Data Attestation: I personally reviewed and interpreted this imaging study as follows: My Impression: 1 view chest x-ray was obtained in the emergency department. My interpretation is diffuse infiltrative process, cardiomegaly was noted, final report below. CT of the head was obtained in the emergency department. My interpretation is no intracranial hemorrhage or mass effect, final report below CT of the chest was obtained in the emergency department. My interpretation is no free air, no hemothorax, final report below. 1 view chest x-ray postintubation was obtained. My interpretation is endotracheal tube is low. This will be removed 2 cm and then chest x-ray will be repeated. Radiologist's Impression: Abdomen/Pelvis CT 12/19/22 17:35 CT OF THE ABDOMEN AND PELVIS WITH CONTRAST CLINICAL HISTORY: trauma COMPARISON STUDY: CT of the abdomen and pelvis October 25, 2022. TECHNIQUE: Following IV administration of 93 mL of Optiray, axial images of the abdomen and pelvis were obtained from the lung bases to the proximal femurs. Images were reviewed in the axial, sagittal, and coronal planes. IV contrast was administered without complication. Automated exposure control was utilized for the study. A dose lowering technique was utilized adhering to the principles of ALARA. CT DOSE: 3298.55 mGy.cm FINDINGS: No hemoperitoneum or pneumoperitoneum is present. There is no evidence for traumatic injury to the liver, spleen, adrenal glands, kidneys or pancreas. The gallbladder is surgically absent. There is no biliary ductal dilatation. Several left renal cysts are present. A Carney balloon within the bladder is present. Right colon wall thickening is likely due to underdistention. There is sigmoid diverticulosis without evidence for acute diverticulitis. There is no ascites. There is no lymphadenopathy. Several calcified fibroids are incidentally noted. No acute lumbar spine, pelvic or hip fracture is identified. There is mild anasarca. IMPRESSION: No acute traumatic findings within the abdomen or pelvis. ACT 112: Negative or not required by law. Electronically signed by: Nahun Odell M.D. 12/19/2022 6:[address] 12/19/22 17:35 CT OF THE CERVICAL SPINE WITHOUT CONTRAST CLINICAL HISTORY: trauma COMPARISON STUDY: No previous studies for comparison. TECHNIQUE: Helical axial images of the cervical spine were obtained without IV contrast. Sagittal and coronal reconstructions were viewed. Automated exposure control was utilized for the study. A dose lowering technique was utilized adhering to the principles of ALARA. FINDINGS: Alignment of the cervical spine is anatomic. Vertebral body heights are maintained. No acute cervical spine fracture or subluxation is present. There is no prevertebral edema. Facet joints are intact. There is moderate multilevel facet arthrosis. IMPRESSION: No acute cervical spine fracture or subluxation. ACT 112: Negative or not required by law. Electronically signed by: Nahun Odell M.D. 12/19/2022 6:[address] 12/19/22 17:35 CT OF THE CHEST WITH IV CONTRAST CLINICAL HISTORY: trauma COMPARISON STUDY: Chest CT April 09, 2021. TECHNIQUE: Following IV administration of 93 mL of Optiray, helical axial images of the chest were obtained. Sagittal and coronal reconstructions were viewed as well as maximal intensity projections on an independent 3-D workstation. Automated exposure control was utilized for the study. A dose lowering technique was utilized adhering to the principles of ALARA. FINDINGS: There is no evidence for traumatic injury to the thoracic aorta. No mediastinal hematoma is noted. No pericardial effusion. There is mild cardiomegaly and extensive coronary artery calcification. There is mild dilatation of the central pulmonary arteries. No pneumothorax or pleural effusion is present. Lungs are suboptimally assessed due to respiratory motion. There are mild groundglass opacities with mosaic attenuation within the lungs. Subpleural left lung opacities favor atelectasis. No acute rib or thoracic spine fracture is noted. The abdomen and pelvis CT will be reported separately. IMPRESSION: 1. No acute traumatic findings within the chest. 2. Mild groundglass opacities with mosaic attenuation within lungs. The findings could reflect atelectasis, air trapping or mild pulmonary edema. 3. Asymmetric subpleural left lung opacities likely reflect atelectasis. ACT 112: Negative or not required by law. Electronically signed by: Nahun Odell M.D. 12/19/2022 6:[address] 12/19/22 17:35 CT OF THE HEAD WITHOUT CONTRAST CLINICAL HISTORY: trauma COMPARISON STUDY: MRI of the brain September 08, 2021. Head CT September 07, 2022. TECHNIQUE: Helical axial images of the head were obtained without IV contrast. Automated exposure control was utilized for the study. A dose lowering technique was utilized adhering to the principles of ALARA. FINDINGS: No acute intracranial hemorrhage, midline shift or mass effect is present. The ventricular system is unremarkable. The basal cisterns are patent. No extra-axial collections are present. There are no findings to suggest acute dural sinus thrombosis or acute territorial infarct. No significant calvarial abnormalities are present. Visualized portions of the sinuses and mastoid air cells are clear. IMPRESSION: 1. No acute intracranial findings. 2. No acute calvarial fracture. ACT 112: Negative or not required by law. Electronically signed by: Nahun Odell M.D. 12/19/2022 6:35 PM Chest X-Ray 12/19/22 17:36 XR chest 1V portable CLINICAL HISTORY: Sepsis. COMPARISON STUDY: Chest CT April 09, 2021. Chest radiograph October 19, 2022. FINDINGS: No pneumothorax or pleural effusion is present. There is no lobar consolidation. There is mild interstitial thickening. Cardiomegaly is noted. There is mediastinal widening. IMPRESSION: 1. Upper mediastinal widening. This is likely technical however can be assessed on contrast-enhanced chest CT which has been ordered. 2. Interstitial thickening. This favors pulmonary vascular congestion with possible mild pulmonary edema. An infectious process could appear similar. ACT 112: Negative or not required by law. Electronically signed by: Nahun Odell M.D. 12/19/2022 6:23 PM Discharge Plan Visit Data Chief Complaint: Cardiac Assessment Stated Complaint: FOUND ON FLOOR, ABNORMAL EKG ED Provider: King Amin Discharge Problem: Acute non-ST elevation myocardial infarction (NSTEMI), Hypomagnesemia, Hypokalemia, Respiratory arrest before cardiac arrest, Ventricular tachycardia, Hypocalcemia, Fall Patient Disposition: Admitted As Inpatient Discharge Instructions Interventions: ED Discharge Assessment Last Done: 12/19/22 20:20 Discharge Problem: Fall Qualifiers: Encounter type: initial encounter Qualified Code(s): W19.XXXA - Unspecified fall, initial encounter
[2022-12-19 18:04] LABS: Basophils # (auto) 0.04 K/uL (0.00-0.20); Basophils % (auto) 0.2 %; Eosinophils # (auto) 0.03 K/uL (0.00-0.50); Eosinophils % (auto) 0.2 %; Hematocrit (blood only) 45.3 % (37.0-47.0); Immature Granulocytes # (auto) 0.09 K/uL (0.01-0.20); Immature Granulocytes % (auto) 0.5 %; Lymphocytes # (auto) 1.12 K/uL (1.20-3.40); Lymphocytes % (auto) 6.3 %; Mean Corpuscular Hemoglobin 28.8 pg (25.0-34.0); Mean Corpuscular Hgb Conc 35.3 g/dL (32.0-36.0); Mean Corpuscular Volume 81.6 fL (80.0-100.0); Mean Platelet Volume 11.6 fL (9.4-12.4); Monocytes # (auto) 1.01 K/uL (0.11-0.59); Monocytes % (auto) 5.7 %; Neutrophils # (auto) 15.45 K/uL (1.40-6.50); Neutrophils % (auto) 87.1 %; Platelet Count 330 K/uL (130-400); RDW Coefficient of Variation 14.6 % (11.5-14.5); RDW Standard Deviation 41.8 fL (36.4-46.3); Red Blood Count 5.55 M/uL (4.20-5.40); White Blood Count 17.74 K/ul (4.8-10.8)
[2022-12-19] MEDS: POTASSIUM CHLORIDE / WTR 10 MEQ/100 ML PLCT IV SCH ×2 (18:04→22:50)
[2022-12-19 18:07] LABS: Base Excess VBG 8.1 mEq/L; HCO3 VBG 33 mmol/L; Oxygen Saturation VBG < 60.0 %; PCO2 VBG 48 mmHg (38-50); PO2 VBG < 20 mmHg; pH VBG 7.45 (7.36-7.41)
[2022-12-19] MEDS ORDERED: OPTIRAY 320 100ml IV ONE (18:23)
--- NOTE | 2022-12-19 18:24 | XRay Report ---
XR chest 1V portable CLINICAL HISTORY: Sepsis. COMPARISON STUDY: Chest CT April 09, 2021. Chest radiograph October 19, 2022. FINDINGS: No pneumothorax or pleural effusion is present. There is no lobar consolidation. There is m ild interstitial thickening. Cardiomegaly is noted. There is mediastinal widening. IMPRESSION: 1. Upper mediastinal widening. This is likely technical however can be assessed on contrast-enhanced chest CT which has been ordered. 2. Interstitial thickening. This favors pulmonary vascular congestion with possible mild pulmonary ed reanna. An infectious process could appear similar. ACT 112: Negative or not required by law. Electronically signed by: Nahun Odell M.D. 12/19/2022 6:23 PM
[2022-12-19 18:28] LABS: Albumin Level 2.9 gm/dl (3.4-5.0); BUN Creatinine Ratio 5.3 (10-20); Bilirubin Direct 0.5 mg/dl (0-0.2); Bilirubin,Total 1.4 mg/dl (0.2-1.0); Calcium 6.7 mg/dl (8.6-10.3); Creatinine Clr Calc Pharmacy 46.4 ml/min; Est GFR (African American) 59.9 ml/min; Est GFR (Non-African American) 51.7 ml/min; Magnesium 1.1 mg/dl (1.7-2.4); Potassium 1.5 mmol/L (3.5-5.1); Total Protein 6.7 gm/dl (6.0-8.3)
[2022-12-19 18:31] LABS: Troponin I High Sensitivity 1083.3 pg/ml (0-14)
[2022-12-19 18:32] LABS: Partial Thromboplastin Ratio 0.9; Partial Thromboplastin Time 24.5 Seconds (21.0-31.0); Prothrombin Time 10.8 Seconds (9.0-12.0)
[2022-12-19 18:36] LABS: Appearance Urine Clear (Clear); Bacteria Urine Automated Negative (Negative); Bilirubin Urine Negative (Negative); Blood Urine Trace (Negative); Cast Urine Automated 0 /lpf (0-5); Color Urine Yellow; Epithelial Cell Urine Auto 0-5 /lpf (0-5); Glucose Urine UA 3+ (Negative); Ketones Urine Negative (Negative); Leukocyte Esterase Urine Negative (Negative); Nitrite Urine Negative (Negative); Protein Urine Negative (Negative); RBC Urine Automated 0-4 /hpf (0-4); Specific Gravity Urine 1.011 (1.000-1.030); Urobilinogen Urine Negative (Negative); pH Urine 6.5 (4.5-7.5)
[2022-12-19] MEDS ORDERED: AMIODARONE 150MG / 100ML D5W IV ONE (18:36)
[2022-12-19] MEDS ORDERED: MAGNESIUM SULFATE / D5W 1 GM/100 ML BAG IV STA (18:36)
--- NOTE | 2022-12-19 18:36 | CT Scan Report ---
CT OF THE HEAD WITHOUT CONTRAST CLINICAL HISTORY: trauma COMPARISON STUDY: MRI of the brain September 08, 2021. Head CT September 07, 2022. TECHNIQUE: Helical axial images of the head were obtained without IV contrast. Automated exposure con trol was utilized for the study. A dose lowering technique was utilized adhering to the principles o f ALARA. FINDINGS: No acute intracranial hemorrhage, midline shift or mass effect is present. The ventricular system is unremarkable. The basal cisterns are patent. No extra-axial collections are present. There are no findings to suggest acute dural sinus thrombosis or acute territorial infarct. No significant calvarial abnormalities are present. Visualized portions of the sinuses and mastoid air cells are stephanie ar. IMPRESSION: 1. No acute intracranial findings. 2. No acute calvarial fracture. ACT 112: Negative or not required by law. Electronically signed by: Nahun Odell M.D. 12/19/2022 6:35 PM
[2022-12-19] MEDS ORDERED: CALCIUM CHLORIDE 10% 1,000 MG in DEXTROSE 5% 50 ML IV STA (18:37)
[2022-12-19] MEDS ORDERED: AMIODARONE / D5W 150 MG/100 ML BAG IV STA (18:37)
[2022-12-19] MEDS ORDERED: STAT IV Infusion **Titration per Protocol STA ×4 (18:37→21:57)
[2022-12-19] MEDS ORDERED: MAGNESIUM SULFATE 1GM / D5W BAG IV ONE (18:37)
[2022-12-19] MEDS ORDERED: 0.2 MICRON FILTER SET 1 EACH IV STA (18:37)
[2022-12-19] MEDS ORDERED: AMIODARONE IV BOLUS & DRIP IV STA (18:37)
[2022-12-19] MEDS ORDERED: AMIODARONE 360MG / 200ML D5W IV ONE (18:38)
--- NOTE | 2022-12-19 18:38 | CT Scan Report ---
CT OF THE CERVICAL SPINE WITHOUT CONTRAST CLINICAL HISTORY: trauma COMPARISON STUDY: No previous studies for comparison. TECHNIQUE: Helical axial images of the cervical spine were obtained without IV contrast. Sagittal a nd coronal reconstructions were viewed. Automated exposure control was utilized for the study. A do se lowering technique was utilized adhering to the principles of ALARA. FINDINGS: Alignment of the cervical spine is anatomic. Vertebral body heights are maintained. No acut e cervical spine fracture or subluxation is present. There is no prevertebral edema. Facet joints are intact. There is moderate multilevel facet arthrosis. IMPRESSION: No acute cervical spine fracture or subluxation. ACT 112: Negative or not required by law. Electronically signed by: Nahun Odell M.D. 12/19/2022 6:37 PM
[2022-12-19] MEDS ORDERED: RAPID SEQUENCE INDUCTION BAG ONE (18:39)
--- NOTE | 2022-12-19 18:46 | CT Scan Report ---
CT OF THE CHEST WITH IV CONTRAST CLINICAL HISTORY: trauma COMPARISON STUDY: Chest CT April 09, 2021. TECHNIQUE: Following IV administration of 93 mL of Optiray, helical axial images of the chest were o btained. Sagittal and coronal reconstructions were viewed as well as maximal intensity projections o n an independent 3-D workstation. Automated exposure control was utilized for the study. A dose low ering technique was utilized adhering to the principles of ALARA. FINDINGS: There is no evidence for traumatic injury to the thoracic aorta. No mediastinal hematoma i s noted. No pericardial effusion. There is mild cardiomegaly and extensive coronary artery calcificat ion. There is mild dilatation of the central pulmonary arteries. No pneumothorax or pleural effusion is present. Lungs are suboptimally assessed due to respiratory motion. There are mild groundglass opa cities with mosaic attenuation within the lungs. Subpleural left lung opacities favor atelectasis. No acute rib or thoracic spine fracture is noted. The abdomen and pelvis CT will be reported separately . IMPRESSION: 1. No acute traumatic findings within the chest. 2. Mild groundglass opacities with mosaic attenuation within lungs. The findings could reflect atelec tasis, air trapping or mild pulmonary edema. 3. Asymmetric subpleural left lung opacities likely reflect atelectasis. ACT 112: Negative or not required by law. Electronically signed by: Nahun Odell M.D. 12/19/2022 6:44 PM
[2022-12-19] MEDS ORDERED: AMIODARONE / D5W 360 MG/200 ML BAG IV ONE (18:48)
--- NOTE | 2022-12-19 18:52 | CT Scan Report ---
CT OF THE ABDOMEN AND PELVIS WITH CONTRAST CLINICAL HISTORY: trauma COMPARISON STUDY: CT of the abdomen and pelvis October 25, 2022. TECHNIQUE: Following IV administration of 93 mL of Optiray, axial images of the abdomen and pelvis we re obtained from the lung bases to the proximal femurs. Images were reviewed in the axial, sagittal, and coronal planes. IV contrast was administered without complication. Automated exposure control wa s utilized for the study. A dose lowering technique was utilized adhering to the principles of ALARA . CT DOSE: 3298.55 mGy.cm FINDINGS: No hemoperitoneum or pneumoperitoneum is present. There is no evidence for traumatic injury to the liver, spleen, adrenal glands, kidneys or pancreas. The gallbladder is surgically absent. The re is no biliary ductal dilatation. Several left renal cysts are present. A Carney balloon within the bladder is present. Right colon wall thickening is likely due to underdistention. There is sigmoid di verticulosis without evidence for acute diverticulitis. There is no ascites. There is no lymphadenopa thy. Several calcified fibroids are incidentally noted. No acute lumbar spine, pelvic or hip fracture is identified. There is mild anasarca. IMPRESSION: No acute traumatic findings within the abdomen or pelvis. ACT 112: Negative or not required by law. Electronically signed by: Nahun Odell M.D. 12/19/2022 6:50 PM
[2022-12-19] MEDS ORDERED: NOREPINEPHRINE/D5W 4 MG/250 ML IV ONE (18:55)
[2022-12-19] MEDS ORDERED: NOREPINEPHRINE/D5W 4 MG/250 ML PLCT IV SCH (19:00)
[2022-12-19] MEDS ORDERED: CALCIUM CHLORIDE 10% 1,000 MG in SODIUM CHLORIDE 0.9% 50 ML IV ONE (19:00)
[2022-12-19] MEDS: NOREPINEPHRINE/D5W 4 MG/250 ML PLCT IV SCH (19:05)
[2022-12-19] MEDS ORDERED: POTASSIUM CHLORIDE / WTR 20 MEQ/100 ML PLCT IV STA (19:14)
[2022-12-19] MEDS ORDERED: PROPOFOL BOLUS FROM BAG IV PRN (19:17)
[2022-12-19 19:20] LABS: Adenovirus PCR Not Detected (NotDetected); Bordetella parapertussis PCR Not Detected (NotDetected); Bordetella pertussis PCR Not Detected (NotDetected); Chlamydia pneumoniae PCR Not Detected (NotDetected); Coronavirus 229E PCR Not Detected (NotDetected); Coronavirus CoV-2 (COVID19)PCR Not Detected (NotDetected); Coronavirus HKU1 PCR Not Detected (NotDetected); Coronavirus NL63 PCR Not Detected (NotDetected); Coronavirus OC43PCR Not Detected (NotDetected); Human Metapneumovirus PCR Not Detected (NotDetected); Influenza A PCR Not Detected (NotDetected); Influenza B PCR Not Detected (NotDetected); Mycoplasma pneumoniae PCR Not Detected (NotDetected); Parainfluenza Virus 1 PCR Not Detected (NotDetected); Parainfluenza Virus 2 PCR Not Detected (NotDetected); Parainfluenza Virus 3 PCR Not Detected (NotDetected); Parainfluenza Virus 4 PCR Not Detected (NotDetected); Respiratory Syncytial VirusPCR Not Detected (NotDetected); Rhinovirus/Enterovirus PCR Not Detected (NotDetected)
[2022-12-19] MEDS: propofoL 1,000 MG/100 ML VIAL IV SCH (19:31)
--- NOTE | 2022-12-19 19:39 | History & Physical Report ---
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 (4) Hypomagnesemia: Plan: Mg level 1.1 in ER s/p Mg sulfate 1g bolus then 1g IV Further replacement per ICU (5) Elevated troponin: Plan: Unclear if demand vs. NSTEMI Given non-compliance with medication and known CAD she is high risk for NSTEMI although no chest pain noted by patient per ER prior to VT Trend troponin overnight. Consult cardiology - ICU discussed with Dr Valentin and not for heparin at this time TTE (6) Fall: Plan: Possible fall on left side and struck her face. No injuries on CT head, cervical spine, chest/abdo/pelvis Suspect weakness due to electrolytes imbalance (7) GERD (gastroesophageal reflux disease): Plan: Switch famotidine and pantoprazole to IV (8) S/P coronary artery stent placement: Plan: 2 CHANTAL to LAD 10/22/2020 Continue ASA, Brillinta, atorvastatin once able from ICU perspective Not on BB due to bradycardia (9) Elevated creatine kinase: Plan: Suspect due to elevated troponin rather than rhabdo, continue to trend (10) Noncompliance: Plan VTE Prophyalxis - deferred to ICU Diet - NPO Disposition - admit to ICU Admission and Anticipated Discharge Date Admission Date: December 19, 2022 History of Present Illness Chief Complaint: Ventricular tachycardia Primary Care Provider: Jc Zaman DO Yolanda Lua is a 62 year old female who presents to the ER for generalized weakness after being on the ground following a fall since 10pm last night. She has a significant history of gastroparesis and vomiting causing hypokalemia in the past. Potassium was 1.5 on arrival to the ER. In the ER she was complaining of chest pain and shortness of breath en route back from CT. Patient was noticed to be in ventricular tachycardia, she became obtunded and her blood pressure dropped therefore received x1 200J defibrillation shock and shortly afterwards went back into a sinus rhythm although with significant U wave and TWI present. She was started on amiodarone drip and intubated. Potassium chloride and magnesium sulfate infusing. She was getting a femoral line when seen. She was unable to give any history at this time. She has a notably history of CAD requiring stents in 2020. Noted prior notes with non-compliance to medications. Allergies Allergy/AdvReac Type Severity Reaction Status Date / Time dulaglutide [From Trulicity] AdvReac Intermediate stomach Verified 11/15/22 16:15 pain albiglutide [From Tanzeum] AdvReac Unknown CAN'T Verified 11/15/22 16:15 REMEMBER Home Medications Medication Instructions Recorded Confirmed Type nystatin 100,000 unit/gram topical 1 applic topical BID PRN Skin 08/20/21 12/19/22 History powder Irritation meclizine 25 mg tablet 25 mg PO TID PRN dizziness 10/11/21 12/19/22 History blood-glucose meter (Prodigy 10/15/21 12/19/22 History Autocode Meter kit) levothyroxine 88 mcg tablet 88 mcg PO DAILY #30 tabs 10/15/21 12/19/22 Rx acetaminophen 500 mg tablet 1,000 mg PO TID PRN Pain 01/25/22 12/19/22 History (Tylenol Extra Strength) betamethasone dipropionate 0.05 % 1 applic topical DIRECTED PRN 05/03/22 12/19/22 History topical cream Skin Irritation hydroxyzine HCl 10 mg tablet 10 mg PO TID PRN anxiety #90 tabs 05/03/22 12/19/22 Rx pen needle, diabetic 32 gauge x #200 ea 06/28/22 12/19/22 Rx 5/32" (BD Ultra-Fine Cary Pen Needle) sucralfate 1 gram tablet 1 g PO ACHS 30 days #120 tabs 07/01/22 12/19/22 Rx insulin regular hum U-500 conc 500 10 - 20 unit (0.02 - 0.04 mL) 07/19/22 12/19/22 Rx unit/mL(3 mL) subcut pen (Humulin subcut BID #6 mL R U-500 (Conc) Insulin Kwikpen) atorvastatin 80 mg tablet 80 mg PO QPM #90 tabs 10/03/22 12/19/22 Rx fluvoxamine 50 mg tablet 50 mg PO HS 10/17/22 12/19/22 History aspirin 81 mg tablet,delayed 81 mg PO QAM #30 tabs 10/29/22 12/19/22 Rx release docusate sodium 100 mg capsule 100 mg PO BID #60 caps 10/29/22 12/19/22 Rx polyethylene glycol 3350 17 gram 17 g PO DAILY #30 ea 10/29/22 12/19/22 Rx oral powder packet (Miralax) ticagrelor 90 mg tablet (Brilinta) 90 mg PO BID #60 tabs 10/29/22 12/19/22 Rx metoclopramide HCl 5 mg tablet 5 mg PO AC #90 tabs 11/06/22 12/19/22 Rx famotidine 20 mg tablet 40 mg PO BID 12/19/22 12/19/22 History pantoprazole 40 mg tablet,delayed 40 mg PO DAILY 12/19/22 12/19/22 History release Past Med/Surg History Medical History Acute on chronic combined systolic and diastolic CHF (congestive heart failure) Nausea vomiting and diarrhea Bradycardia with 41-50 beats per minute Hyperglycemia Chest pain Chest pain Hypokalemia Hypomagnesemia Accelerated hypertension Albuminuria Diabetic nephropathy associated with type 2 diabetes mellitus Depression Osteoarthritis Chronic headaches CAD (coronary artery disease) No remaining occlusive disease after 2 LAD drug eluting stents 10/22/20. Follows with Dr. Harris NSTEMI (non-ST elevated myocardial infarction) 10/22/2020 s/p 2 CHANTAL Vulvitis Diabetes type 2, uncontrolled IDDM Dyslipidemia Tobacco abuse Hypertension Hypothyroidism Obesity Anxiety Surgical History History of cardiac catheterization 10/22/2020 Dominant: Right Left Main (% Stenosis): Normal LAD (% Stenosis): Proximal (99) and Mid (75) Circumflex (% Stenosis): Normal (luminal irregularities) RCA (% Stenosis): Normal (Luminal irregularities) 2 CHANTAL to LAD S/P coronary artery stent placement 2 CHANTAL to LAD 10/22/2020 History of cholecystectomy History of dental surgery History of tonsillectomy Family History Unknown Diabetes Thyroid disorder Father Diabetes Other No family history of adverse response to anesthesia Denies family history of Ovarian cancer Prostate cancer Breast cancer Colorectal cancer Uterine cancer Social History Smoking Status: Current every day smoker Tobacco Type: Cigarettes packs per day: 0.5; Cigarettes Per Day: 10; Second Hand Exposure: No; Do You Dip or Chew Tobacco: No; Tobacco Cessation Education Requested by Patient: No Hx Alcohol Use: No Hx Substance Use: No Preferred Language: Maltese Communication Ability: Effective Visual Impairment: No Limitations Coverage Specialist Required: No Beliefs That Will Affect Care: None marital status: Single Current Living Situation: Alone current occupational status: disabled How many Children do You have: 0 Other Information That Helps Us Care for You: No Feels Safe at Home: Yes Safety Concerns: Feels Safe At This Time Safety Concerns Comment: Gets nervous sometimes because she lives alone, gets shaky from anxiety Diet: regular caffeine: Yes Dental Care, Regularly: No Physical Activity Frequency: Does not Exercise Seatbelt Use: always Sunscreen Use: No Assistive Devices: Walker Review of Systems Review of Systems: Unobtainable due to endotracheal tube and Unobtainable due to reduced consciousness Physical Exam Constitutional: well developed; + not well nourished and no acute distress Eyes: PERRL, conjunctivae normal, anicteric sclerae Respiratory: normal respiratory effort; no respiratory distress Auscultation: + rhonchi (bilateral); breath sounds present, no diminished lung sounds and no wheezes Intubated and sedated Cardiovascular: Rate/Rhythm: regular rate and regular rhythm Heart Sounds: no murmur Extremities: + pedal edema; + abnormal capillary refill (central 2 seconds, peripheral 10 seconds) Gastrointestinal (Abdomen): Inspection/Auscultation: abdomen normal to inspection; abdomen not distended Percussion/Palpation: abdomen soft; abdomen nontender Skin: no rashes, warm and dry (no areas of cellulitis noted) Neurologic: + not awake (intubated and sedated) Results & Data Results & Data Vital Signs (Past 12 Hours) Vital Signs Pulse Resp BP Pulse Ox O2 Del Method 12/19/22 18:56 79 12/19/22 18:45 104 H 12/19/22 18:29 88 12/19/22 17:59 94 Room Air 12/19/22 17:51 60 18 108/61 93 Room Air 12/19/22 17:41 66 16 76/60 L 92 Room Air 12/19/22 17:37 66 12/19/22 17:17 94 Room Air 12/19/22 17:17 60 18 76/60 L 93 Room Air Laboratory Results Abnormal lab results 12/19/22 12/19/22 12/19/22 Range/Units 17:39 17:45 17:53 WBC 17.74 H (4.8-10.8) K/ul RBC 5.55 H (4.20-5.40) M/uL RDW Coeff of Umair 14.6 H (11.5-14.5) % Neut # (Auto) 15.45 H (1.40-6.50) K/uL Lymph # (Auto) 1.12 L (1.20-3.40) K/uL [place] # (Auto) 1.01 H (0.11-0.59) K/uL POC pO2 (80-95) mmHg POC HCO3 (19-24) irais/L POC Base Excess (-9-1.8) irais/L POC ABG O2 Sat (90-95) % VBG pH (7.36-7.41) POC Potassium (3.3-5.0) mmol/L Potassium 1.5 L* (3.5-5.1) mmol/L Chloride 96 L (98-107) mmol/L Anion Gap 13 H (3-11) BUN/Creatinine Ratio 5.3 L (10-20) Glucose 393 H* (70-99(Fasting)) mg/dl POC Glucose 380 H* (70-99) mg/dl Lactate 3.4 H* (0.4-2.0) mmol/L Calcium 6.7 L (8.6-10.3) mg/dl Ionized Calcium (1.12-1.32) mmol/L Magnesium 1.1 L (1.7-2.4) mg/dl Total Bilirubin 1.4 H (0.2-1.0) mg/dl Direct Bilirubin 0.5 H (0-0.2) mg/dl Alkaline Phosphatase 184 H (34-104) U/L Total Creatine Kinase 848 H (26-192) U/L Troponin I High Sens 1083.3 H* (0-14) pg/ml Albumin 2.9 L (3.4-5.0) gm/dl Urine Glucose (UA) 3+ H (Negative) Urine Blood Trace H (Negative) 12/19/22 12/19/22 12/19/22 Range/Units 17:59 19:29 19:33 WBC (4.8-10.8) K/ul RBC (4.20-5.40) M/uL RDW Coeff of Umair (11.5-14.5) % Neut # (Auto) (1.40-6.50) K/uL Lymph # (Auto) (1.20-3.40) K/uL [place] # (Auto) (0.11-0.59) K/uL POC pO2 101 H (80-95) mmHg POC HCO3 26 H (19-24) irais/L POC Base Excess 2.0 H (-9-1.8) irais/L POC ABG O2 Sat 98.0 H (90-95) % VBG pH 7.45 H (7.36-7.41) POC Potassium < 2.0 L* (3.3-5.0) mmol/L Potassium (3.5-5.1) mmol/L Chloride (98-107) mmol/L Anion Gap (3-11) BUN/Creatinine Ratio (10-20) Glucose (70-99(Fasting)) mg/dl POC Glucose (70-99) mg/dl Lactate 2.5 H* (0.4-2.0) mmol/L Calcium (8.6-10.3) mg/dl Ionized Calcium 0.98 L (1.12-1.32) mmol/L Magnesium (1.7-2.4) mg/dl Total Bilirubin (0.2-1.0) mg/dl Direct Bilirubin (0-0.2) mg/dl Alkaline Phosphatase (34-104) U/L Total Creatine Kinase (26-192) U/L Troponin I High Sens (0-14) pg/ml Albumin (3.4-5.0) gm/dl Urine Glucose (UA) (Negative) Urine Blood (Negative) 12/19/22 Range/Units 19:49 WBC (4.8-10.8) K/ul RBC (4.20-5.40) M/uL RDW Coeff of Umair (11.5-14.5) % Neut # (Auto) (1.40-6.50) K/uL Lymph # (Auto) (1.20-3.40) K/uL [place] # (Auto) (0.11-0.59) K/uL POC pO2 (80-95) mmHg POC HCO3 (19-24) irais/L POC Base Excess (-9-1.8) irais/L POC ABG O2 Sat (90-95) % VBG pH (7.36-7.41) POC Potassium (3.3-5.0) mmol/L Potassium (3.5-5.1) mmol/L Chloride (98-107) mmol/L Anion Gap (3-11) BUN/Creatinine Ratio (10-20) Glucose (70-99(Fasting)) mg/dl POC Glucose (70-99) mg/dl Lactate (0.4-2.0) mmol/L Calcium (8.6-10.3) mg/dl Ionized Calcium (1.12-1.32) mmol/L Magnesium (1.7-2.4) mg/dl Total Bilirubin (0.2-1.0) mg/dl Direct Bilirubin (0-0.2) mg/dl Alkaline Phosphatase (34-104) U/L Total Creatine Kinase (26-192) U/L Troponin I High Sens 1529.6 H* D (0-14) pg/ml Albumin (3.4-5.0) gm/dl Urine Glucose (UA) (Negative) Urine Blood (Negative) Diagnostic Findings CT OF THE HEAD WITHOUT CONTRAST CLINICAL HISTORY: trauma COMPARISON STUDY: MRI of the brain September 08, 2021. Head CT September 07, 2022. TECHNIQUE: Helical axial images of the head were obtained without IV contrast. Automated exposure control was utilized for the study. A dose lowering technique was utilized adhering to the principles of ALARA. FINDINGS: No acute intracranial hemorrhage, midline shift or mass effect is present. The ventricular system is unremarkable. The basal cisterns are patent. No extra-axial collections are present. There are no findings to suggest acute dural sinus thrombosis or acute territorial infarct. No significant calvarial abnormalities are present. Visualized portions of the sinuses and mastoid air cells are clear. IMPRESSION: 1. No acute intracranial findings. 2. No acute calvarial fracture. CT OF THE CERVICAL SPINE WITHOUT CONTRAST CLINICAL HISTORY: trauma COMPARISON STUDY: No previous studies for comparison. TECHNIQUE: Helical axial images of the cervical spine were obtained without IV contrast. Sagittal and coronal reconstructions were viewed. Automated exposure control was utilized for the study. A dose lowering technique was utilized adhering to the principles of ALARA. FINDINGS: Alignment of the cervical spine is anatomic. Vertebral body heights are maintained. No acute cervical spine fracture or subluxation is present. There is no prevertebral edema. Facet joints are intact. There is moderate multilevel facet arthrosis. IMPRESSION: No acute cervical spine fracture or subluxation. CT OF THE CHEST WITH IV CONTRAST CLINICAL HISTORY: trauma COMPARISON STUDY: Chest CT April 09, 2021. TECHNIQUE: Following IV administration of 93 mL of Optiray, helical axial images of the chest were obtained. Sagittal and coronal reconstructions were viewed as well as maximal intensity projections on an independent 3-D workstation. Automated exposure control was utilized for the study. A dose lowering technique was utilized adhering to the principles of ALARA. FINDINGS: There is no evidence for traumatic injury to the thoracic aorta. No mediastinal hematoma is noted. No pericardial effusion. There is mild cardiomegaly and extensive coronary artery calcification. There is mild dilatation of the central pulmonary arteries. No pneumothorax or pleural effusion is present. Lungs are suboptimally assessed due to respiratory motion. There are mild groundglass opacities with mosaic attenuation within the lungs. Subpleural left lung opacities favor atelectasis. No acute rib or thoracic spine fracture is noted. The abdomen and pelvis CT will be reported separately. IMPRESSION: 1. No acute traumatic findings within the chest. 2. Mild groundglass opacities with mosaic attenuation within lungs. The findings could reflect atelectasis, air trapping or mild pulmonary edema. 3. Asymmetric subpleural left lung opacities likely reflect atelectasis. CT OF THE ABDOMEN AND PELVIS WITH CONTRAST CLINICAL HISTORY: trauma COMPARISON STUDY: CT of the abdomen and pelvis October 25, 2022. TECHNIQUE: Following IV administration of 93 mL of Optiray, axial images of the abdomen and pelvis were obtained from the lung bases to the proximal femurs. Images were reviewed in the axial, sagittal, and coronal planes. IV contrast was administered without complication. Automated exposure control was utilized for the study. A dose lowering technique was utilized adhering to the principles of ALARA. CT DOSE: 3298.55 mGy.cm FINDINGS: No hemoperitoneum or pneumoperitoneum is present. There is no evidence for traumatic injury to the liver, spleen, adrenal glands, kidneys or pancreas. The gallbladder is surgically absent. There is no biliary ductal dilatation. Several left renal cysts are present. A Carney balloon within the bladder is present. Right colon wall thickening is likely due to underdistention. There is sigmoid diverticulosis without evidence for acute diverticulitis. There is no ascites. There is no lymphadenopathy. Several calcified fibroids are incidentally noted. No acute lumbar spine, pelvic or hip fracture is identified. There is mild anasarca. IMPRESSION: No acute traumatic findings within the abdomen or pelvis. XR chest 1V portable CLINICAL HISTORY: Sepsis. COMPARISON STUDY: Chest CT April 09, 2021. Chest radiograph October 19, 2022. FINDINGS: No pneumothorax or pleural effusion is present. There is no lobar consolidation. There is mild interstitial thickening. Cardiomegaly is noted. There is mediastinal widening. IMPRESSION: 1. Upper mediastinal widening. This is likely technical however can be assessed on contrast-enhanced chest CT which has been ordered. 2. Interstitial thickening. This favors pulmonary vascular congestion with possible mild pulmonary edema. An infectious process could appear similar. Medications Administered ER Medications Given: Normal saline 2000ml bolus Cefepime 2000mg IV Potassium chloride 10 meq IV Amiodarone bolus and drip Magnesium sulfate 1g IV Calcium chloride 1000mg IV ECG Rate (beats per minute): 62 Rhythm: normal sinus Findings: + other (U wave present) and + prolonged QT Comparison ECG Date: from (October 20, 2022) Change: the following changes noted (peaked T wave/Uwave is new, QT prolonged) Additional Comments: Repeat EKG in the ER showed similar findings to outside EKG with QTc 670ms @ 17:36 Repeat EKG 18:35 with bigeminy Repeat EKG 18:48 showing more prominent stretched out U waves Repeat EKG 20:21 with resolution of U wave, RBBB, PAC, QTc 454ms Code Status & VTE Plan Code Status Presumed full - multiple prior admission full code VTE Prophylaxis Plan VTE Prophylaxis will be ordered: Yes PG Care Time/CCT Total # of Minutes Spent Total Time Spent with Patient: Total time spent is greater than 50% in coordination of care (as documented) at patient's floor/unit and/or counseling patient: Coding Level of Care Code 33240 INT INP/OBS CARE 3/75MIN Diagnoses Shock R57.9 Ventricular tachycardia I47.20 Hypokalemia E87.6 Hypomagnesemia E83.42 Elevated troponin R79.89 Fall W19.XXXA GERD (gastroesophageal reflux disease) K21.9 S/P coronary artery stent placement Z95.5 Elevated creatine kinase R74.8 Noncompliance Z91.199
[2022-12-19 19:45] LABS: iSTAT Arterial Blood Gas HCO3 26 meg/L (19-24); iSTAT Arterial Blood Gas pCO2 42 mmHg (35-46); iSTAT Arterial Blood Gas pO2 101 mmHg (80-95); iSTAT Carbon Dioxide 28 mmol/L (24-31); iSTAT Hematocrit 37 % (37-47); iSTAT Hemoglobin 12.6 g/dl (12.0-16.0); iSTAT Potassium < 2.0 mmol/L (3.3-5.0); iSTAT Sodium 138 mmol/L (135-144)
[2022-12-19 20:35] LABS: Troponin I High Sensitivity 1529.6 pg/ml (0-14)
[2022-12-19] MEDS ORDERED: CALCIUM CHLORIDE 10% 1,000 MG in DEXTROSE 5% 50 ML IV ONE (20:40)
[2022-12-19 21:04] LABS: Phosphorus 3.2 mg/dl (2.5-4.9)
[2022-12-19] MEDS ORDERED: POTASSIUM CHLORIDE / WTR 20 MEQ/100 ML PLCT IV SCH (21:08)
[2022-12-19] MEDS ORDERED: MAGNESIUM SULFATE / D5W 1 GM/100 ML BAG IV SCH (21:15)
--- NOTE | 2022-12-19 21:17 | Critical Care Consultation ---
Date of Consultation December 19, 2022 Assessment & Plan (1) Ventricular tachycardia: Reason Critically Ill: 62-year-old female presents to the ICU mechanically ventilated and on vasopressor support following episode of ventricular tachycardia where she became unresponsive with agonal breathing and required defibrillation and intubation. Patient currently undergoing treatment for severe electrolyte abnormalities with EKG changes and on amiodarone drip. Neuro - Sedation: Propofol Delusional disorder/anxiety and depressionresume home psych meds once stable and able to take p.o. CT head and cervical spine negative for acute findings Cardiac - Ventricular tachycardialikely due to severe electrolyte abnormalities which are currently being repleted. Underwent emergent defibrillation in the ED. - She does have prolonged QTc on EKG, currently trending every 4 hours. - Her troponin was noted to be elevated with ST depressions on lateral and inferior leads. No recommendation for Collator Hand per interventional cardiology. Will trend for now and consider heparin drip if continues to elevate following for lyte repletion. Patient does have history of CAD with prior NSTEMI and PCI to the LAD. -Continue amiodarone drip. -Continuous monitoring on telemetry in ICU. Hypotensionpatient currently on low-dose Levophed drip. She is severely dehydrated and undergoing fluid resuscitation. Sedation may be contributing as well. Cannot rule out cardiogenic shock following ventricular tachycardia requiring defibrillation. Previous echo with mild left ventricular hypertrophy normal LV function EF 60 to 65%. We will repeat echo this a.m. -Random cortisol within normal limits. No indication for stress dose steroids at this time -Do not suspect septic shock at this point. See ID below -Maintain MAP greater than 65, wean pressors as tolerated. Respiratory - Respiratory arrest requiring mechanical ventilationpatient reported to have agonal breathing following V. tach episode and was emergently intubated. She is not significantly hypoxic but did have some wheezing on exam. She does actively smoke cigarettes. -CT chest without traumatic findings, mild groundglass opacities and mosaic attenuation within the lungs suggestive of atelectasis, air trapping or pulmonary edema. -Follow-up morning chest x-ray and ABG. Continuous monitoring on pulse ox -Wean vent as tolerated with plan for SBT in a.m. GI - GERDIV famotidine twice daily RENAL/LYTES - Hypokalemia/hypomagnesemia/hypocalcemiapatient with severe electrolyte abnormalities and currently undergoing aggressive repletion following V. tach episode and EKG changes. -Continue to trend BMP and magnesium every 4 hours -Ionized calcium in a.m. -Hold on insulin drip until potassium is greater than 3 -Replete as indicated Rhabdomyolysisinitial CPK 848. Patient was found down in kitchen and suspect that she may have been down for a day. CT scans without evidence of trauma. Continue with fluid resuscitation and trend CPK for now. - Foleystrict I's and O's ENDO - Hyperglycemia secondary to DM type II (uncontrolled)glucose now 450 fortunately she is requiring amiodarone and Levophed which both contain dextrose. Her potassium is severely low and holding off on IV insulin at this time. No ketones in urine, no anion gap acidosis. Will administer 12 units insulin aspart for now and proceed with insulin drip once potassium above 3. Hypothyroidismcontinue Synthroid when appropriate HEME - H&H stable, monitor routine CBC ID - Patient did have leukocytosis although this could be reactionary in the setting of rhabdomyolysis. Also appears significantly dehydrated on CBC. She is currently afebrile, procalcitonin normal. She received 1 dose of cefepime in the emergency department. Blood cultures are pending. Urinalysis not concerning for UTI. We will hold on further antibiotic administration for now. Continue to trend fever curve and follow-up culture results. LINES/IV ACCESS - Right femoral CVC triple-lumen DVT PROPHYLAXIS - SCDs I have personally spent 65 minutes of critical care time in the direct management of this patient. This is a life/limb threatening event. This includes time spent evaluating patient, direct bedside care, chart review, placing orders, interpretation of diagnostic studies, discussion with consultants, patient, and family members, as well as other required patient management activities. This time is exclusive of all separately billable procedures, and teaching time and separate from and in addition to any other critical care service time. Thank you for allowing us to participate in the care of this patient. Please refer to my attending physician's documentation for any further recommendations. (2) Respiratory arrest before cardiac arrest: (3) Acute non-ST elevation myocardial infarction (NSTEMI): (4) Hypomagnesemia: (5) Hypokalemia: (6) Hypocalcemia: (7) Hyperglycemia due to type 2 diabetes mellitus: (8) Cigarette smoker: (9) GERD (gastroesophageal reflux disease): (10) Delusional disorder: (11) Hypothyroidism: (12) Fall: History of Present Illness Attending Physician: Demetrius Fair MD History of Present Illness Patient is a 62-year-old female with past medical history DM type II, GERD, MA (PCI to LAD), proctocolitis, delusional disorder, anxiety and depression and failure to thrive. Patient was found down in her kitchen and was brought to the emergency department where she was found to have significant hypokalemia, hypocalcemia, and hypomagnesemia with with complaints of weakness. EKG was abnormal with inferior and lateral ST depression. Patient had an episode of ventricular tachycardia where she became unstable with agonal breathing and unresponsive. Patient was defibrillated, intubated and central line was inserted. She was started on low-dose vasopressor support. Cardiology was contacted concerning EKG changes with elevated troponin and no recommendation for Collator Hand at this time. She is undergoing aggressive repletion severe electrolyte abnormalities. She is started on amiodarone drip. No further dysrhythmias at this time. Patient now admitted to ICU for further management. Allergies Allergy/AdvReac Type Severity Reaction Status Date / Time dulaglutide [From Trulicity] AdvReac Intermediate stomach Verified 11/15/22 16:15 pain albiglutide [From Tanzeum] AdvReac Unknown CAN'T Verified 11/15/22 16:15 REMEMBER Home Medications Medication Instructions Recorded Confirmed Type nystatin 100,000 unit/gram topical 1 applic topical BID PRN Skin 08/20/21 12/19/22 History powder Irritation meclizine 25 mg tablet 25 mg PO TID PRN dizziness 10/11/21 12/19/22 History blood-glucose meter (Prodigy 10/15/21 12/19/22 History Autocode Meter kit) levothyroxine 88 mcg tablet 88 mcg PO DAILY #30 tabs 10/15/21 12/19/22 Rx acetaminophen 500 mg tablet 1,000 mg PO TID PRN Pain 01/25/22 12/19/22 History (Tylenol Extra Strength) betamethasone dipropionate 0.05 % 1 applic topical DIRECTED PRN 05/03/22 12/19/22 History topical cream Skin Irritation hydroxyzine HCl 10 mg tablet 10 mg PO TID PRN anxiety #90 tabs 05/03/22 12/19/22 Rx pen needle, diabetic 32 gauge x #200 ea 06/28/22 12/19/22 Rx 5/32" (BD Ultra-Fine Cary Pen Needle) sucralfate 1 gram tablet 1 g PO ACHS 30 days #120 tabs 07/01/22 12/19/22 Rx insulin regular hum U-500 conc 500 10 - 20 unit (0.02 - 0.04 mL) 07/19/22 12/19/22 Rx unit/mL(3 mL) subcut pen (Humulin subcut BID #6 mL R U-500 (Conc) Insulin Kwikpen) atorvastatin 80 mg tablet 80 mg PO QPM #90 tabs 10/03/22 12/19/22 Rx fluvoxamine 50 mg tablet 50 mg PO HS 10/17/22 12/19/22 History aspirin 81 mg tablet,delayed 81 mg PO QAM #30 tabs 10/29/22 12/19/22 Rx release docusate sodium 100 mg capsule 100 mg PO BID #60 caps 10/29/22 12/19/22 Rx polyethylene glycol 3350 17 gram 17 g PO DAILY #30 ea 10/29/22 12/19/22 Rx oral powder packet (Miralax) ticagrelor 90 mg tablet (Brilinta) 90 mg PO BID #60 tabs 10/29/22 12/19/22 Rx metoclopramide HCl 5 mg tablet 5 mg PO AC #90 tabs 11/06/22 12/19/22 Rx famotidine 20 mg tablet 40 mg PO BID 12/19/22 12/19/22 History pantoprazole 40 mg tablet,delayed 40 mg PO DAILY 12/19/22 12/19/22 History release Patient History Medical History Acute on chronic combined systolic and diastolic CHF (congestive heart failure) Nausea vomiting and diarrhea Bradycardia with 41-50 beats per minute Hyperglycemia Chest pain Chest pain Hypokalemia Hypomagnesemia Accelerated hypertension Albuminuria Diabetic nephropathy associated with type 2 diabetes mellitus Depression Osteoarthritis Chronic headaches CAD (coronary artery disease) No remaining occlusive disease after 2 LAD drug eluting stents 10/22/20. Follows with Dr. Harris NSTEMI (non-ST elevated myocardial infarction) 10/22/2020 s/p 2 CHANTAL Vulvitis Diabetes type 2, uncontrolled IDDM Dyslipidemia Tobacco abuse Hypertension Hypothyroidism Obesity Anxiety Surgical History History of cardiac catheterization 10/22/2020 Dominant: Right Left Main (% Stenosis): Normal LAD (% Stenosis): Proximal (99) and Mid (75) Circumflex (% Stenosis): Normal (luminal irregularities) RCA (% Stenosis): Normal (Luminal irregularities) 2 CHANTAL to LAD S/P coronary artery stent placement 2 CHANTAL to LAD 10/22/2020 History of cholecystectomy History of dental surgery History of tonsillectomy Family History Unknown Diabetes Thyroid disorder Father Diabetes Other No family history of adverse response to anesthesia Denies family history of Ovarian cancer Prostate cancer Breast cancer Colorectal cancer Uterine cancer Social History Smoking Status: Never smoker Tobacco Type: Cigarettes packs per day: 0.5; Cigarettes Per Day: 10; Second Hand Exposure: No; Do You Dip or Chew Tobacco: No; Hx Alcohol Use: No Hx Substance Use: No Preferred Language: Icelandic Communication Ability: Effective Visual Impairment: No Limitations Rotary Furnace Tender Required: No Beliefs That Will Affect Care: None marital status: Single Current Living Situation: Alone current occupational status: disabled How many Children do You have: 0 Feels Safe at Home: Yes Safety Concerns Comment: Gets nervous sometimes because she lives alone, gets shaky from anxiety Diet: regular caffeine: Yes Dental Care, Regularly: No Physical Activity Frequency: Does not Exercise Seatbelt Use: always Sunscreen Use: No Assistive Devices: Walker Review of Systems Review of Systems: Unobtainable due to cognitive status and Unobtainable due to endotracheal tube Physical Exam Constitutional: + obese and + mechanically ventilated Eyes: PERRL, conjunctivae normal, anicteric sclerae ENMT: external ear and nose normal, oropharynx normal Neck: trachea midline, no thyromegaly Respiratory: Wheezing auscultated bilaterally in all lung bradley, mechanically ventilated, symmetrical chest wall movement, no labored breathing and good compliance with ventilator Cardiovascular: RRR, no murmur, no edema Heart Sounds: normal S1 and normal S2 Extremities: no edema Gastrointestinal (Abdomen): normal bowel sounds, soft, nontender, no hepatosplenomegaly Musculoskeletal: No musculoskeletal deformities noted on exam. Exam limited due to to sedation Skin: no rashes, warm and dry Neurologic: Unable to assess due to sedation Psychiatric: Unable to assess due to sedation Genitourinary: Indwelling Carney catheter present. Urine dark and concentrated Results & Data Results & Data Vital Signs (Past 12 Hours) Vital Signs Pulse Resp BP Pulse Ox O2 Del Method FiO2 12/19/22 20:17 52 L 18 86/59 L 100 Mechanical Vent 40 12/19/22 20:10 59 L 18 113/74 100 Mechanical Vent 40 12/19/22 19:55 61 18 103/70 100 Mechanical Vent 40 12/19/22 19:40 68 18 89/64 L 99 Mechanical Vent 40 12/19/22 19:30 68 16 123/81 100 Mechanical Vent 40 12/19/22 19:20 68 16 105/67 100 Mechanical Vent 60 12/19/22 19:17 74 16 130/85 100 Mechanical Vent 60 12/19/22 19:10 75 16 127/76 99 Mechanical Vent 60 12/19/22 19:05 73 16 110/68 98 Mechanical Vent 60 12/19/22 18:56 79 12/19/22 18:50 77 16 93 60 12/19/22 18:45 104 H 12/19/22 18:29 88 12/19/22 17:59 94 Room Air 12/19/22 17:51 60 18 108/61 93 Room Air 12/19/22 17:41 66 16 76/60 L 92 Room Air 12/19/22 17:37 66 12/19/22 17:17 94 Room Air 12/19/22 17:17 60 18 76/60 L 93 Room Air Coding Level of Care Code 05115 CRITICAL CARE 1ST 30-74M Diagnoses Ventricular tachycardia I47.20 Respiratory arrest before cardiac arrest I46.9; R09.2 Acute non-ST elevation myocardial infarction (NSTEMI) I21.4 Hypomagnesemia E83.42 Hypokalemia E87.6 Hypocalcemia E83.51 Hyperglycemia due to type 2 diabetes mellitus E11.65 Cigarette smoker F17.210 GERD (gastroesophageal reflux disease) K21.9 Delusional disorder F22 Hypothyroidism E03.9 Fall W19.XXXA Encounter type: initial encounter (12) Fall Encounter type: initial encounter Qualified Code(s): W19.XXXA - Unspecified fall, initial encounter
[2022-12-19] MEDS: SODIUM CHLOR 0.45% + 20MEQ KCL 20 MEQ/1,000 ML BAG IV SCH (21:45)
[2022-12-19 21:46] LABS: BUN Creatinine Ratio 7.4 (10-20); Creatinine Clr Calc Pharmacy 55.7 ml/min; Est GFR (African American) 74.8 ml/min; Est GFR (Non-African American) 64.6 ml/min; Potassium 1.6 mmol/L (3.5-5.1)
[2022-12-19] MEDS ORDERED: INSULIN PROTOCOL GOAL RANGE ONE (21:57)
[2022-12-19] MEDS ORDERED: SEVERE STRESS LEVEL ONE (21:57)
[2022-12-19] MEDS ORDERED: INSULIN REGULAR 250 UNITS in SODIUM CHLORIDE 0.9% 247.5 ML IV SCH (22:00)
[2022-12-19] MEDS ORDERED: GLUCAGON FOR INJ 1 MG VIAL SQ PRN (22:06)
[2022-12-19] MEDS ORDERED: INSULIN ASPART PER UNIT CHARGE SC STA (22:06)
[2022-12-19] MEDS ORDERED: CARBOHYDRATES FOR HYPOGLYCEMIA PO PRN (22:06)
[2022-12-19] MEDS ORDERED: DEXTROSE 50% 50 ML SYRINGE IV PRN (22:06)
[2022-12-19] MEDS ORDERED: GLUCOSE 40% GEL 15 GM TUBE PO PRN (22:06)
[2022-12-19] MEDS ORDERED: ALBUT/IPRATROP 3MG/0.5MG NEB 3 ML VIAL NEB PRN (22:49)
[2022-12-19] MEDS: POTASSIUM CHLORIDE / WTR 20 MEQ/100 ML PLCT IV SCH ×2 (22:49→23:27)
[2022-12-19] MEDS: ICU Protocol for HYPERglycemia SCH (22:52)
[2022-12-20] MEDS: POTASSIUM CHLORIDE / WTR 20 MEQ/100 ML PLCT IV SCH ×5 (00:46→22:45)
[2022-12-20] MEDS: AMIODARONE / D5W 360 MG/200 ML BAG IV SCH ×3 (00:51→23:47)
[2022-12-20 01:02] LABS: BUN Creatinine Ratio 6.1 (10-20); Calcium 7.6 mg/dl (8.6-10.3); Creatinine Clr Calc Pharmacy 53.2 ml/min; Est GFR (African American) 70.3 ml/min; Est GFR (Non-African American) 60.6 ml/min; Magnesium 1.8 mg/dl (1.7-2.4); Potassium 1.5 mmol/L (3.5-5.1)
[2022-12-20 04:19] LABS: Hematocrit (blood only) 38.5 % (37.0-47.0); Hemoglobin 13.9 g/dl (12.0-16.0); Mean Corpuscular Hemoglobin 29.4 pg (25.0-34.0); Mean Corpuscular Hgb Conc 36.1 g/dL (32.0-36.0); Mean Corpuscular Volume 81.4 fL (80.0-100.0); Mean Platelet Volume 11.8 fL (9.4-12.4); Platelet Count 339 K/uL (130-400); RDW Coefficient of Variation 14.9 % (11.5-14.5); RDW Standard Deviation 42.7 fL (36.4-46.3); Red Blood Count 4.73 M/uL (4.20-5.40); White Blood Count 26.06 K/ul (4.8-10.8)
[2022-12-20 04:41] LABS: Basophils # (auto) 0.06 K/uL (0.00-0.20); Basophils % (auto) 0.2 %; Eosinophils # (auto) 0.02 K/uL (0.00-0.50); Eosinophils % (auto) 0.1 %; Immature Granulocytes # (auto) 0.22 K/uL (0.01-0.20); Immature Granulocytes % (auto) 0.8 %; Lymphocytes % (auto) 8.4 %; Monocytes # (auto) 1.43 K/uL (0.11-0.59); Monocytes % (auto) 5.5 %; Neutrophils # (auto) 22.13 K/uL (1.40-6.50)
[2022-12-20] MEDS ORDERED: PLASMA-LYTE A 500 ML IV ONE (04:46)
[2022-12-20 04:53] LABS: Albumin Globulin Ratio 0.7 (0.9-2); Albumin Level 2.4 gm/dl (3.4-5.0); BUN Creatinine Ratio 5.9 (10-20); Bilirubin,Total 0.4 mg/dl (0.2-1.0); Calcium 7.5 mg/dl (8.6-10.3); Creatinine Clr Calc Pharmacy 52.2 ml/min; Est GFR (African American) 68.6 ml/min; Est GFR (Non-African American) 59.2 ml/min; Globulin 3.3 gm/dl (2.5-4.0); Magnesium 1.7 mg/dl (1.7-2.4); Phosphorus 1.9 mg/dl (2.5-4.9); Potassium 1.7 mmol/L (3.5-5.1); Total Protein 5.7 gm/dl (6.0-8.3); Troponin I High Sensitivity 1907.2 pg/ml (0-14)
[2022-12-20] MEDS ORDERED: POTASSIUM PHOS 3 MMOL/1 ML INFUSION IV STA (05:31)
[2022-12-20] MEDS: SODIUM CHLOR 0.45% + 20MEQ KCL 20 MEQ/1,000 ML BAG IV SCH (05:38)
[2022-12-20] MEDS ORDERED: POTASSIUM CHLORIDE 20 MEQ/15 ML UDC PO STA (05:53)
[2022-12-20] MEDS ORDERED: Heparin IV Adult Wt-Based Standard *NO* Bolus Protocol IV SCH (05:55)
[2022-12-20] MEDS ORDERED: PIPERACILLIN/TAZOBACTAM 4.5 GM in DEXTROSE 5% MINI-B 100 ML IV STA (05:56)
[2022-12-20] MEDS ORDERED: POTASSIUM PHOSPHATE 30 MMOL in SODIUM CHLORIDE 0.9% 500 ML IV ONE (06:00)
[2022-12-20] MEDS ORDERED: VANCOMYCIN CONSULT ACTIVE PRN (06:07)
[2022-12-20] MEDS ORDERED: VANCOMYCIN HCL 1,500 MG in SODIUM CHLORIDE 0.9% 500 ML IV ONE (06:15)
[2022-12-20] MEDS: propofoL 1,000 MG/100 ML VIAL IV SCH (06:45)
[2022-12-20] MEDS: NOREPINEPHRINE/D5W 4 MG/250 ML PLCT IV SCH ×3 (06:52→17:09)
--- NOTE | 2022-12-20 06:58 | XRay Report ---
XR chest 1V portable HISTORY: Status post endotracheal tube placement. COMPARISON: Chest 12/19/2022. FINDINGS: Rotated study. The endotracheal tube terminates at the benny. Interstitial thickening with patchy left lung airspace opacities are again noted. No pneumothorax. No pleural effusions. The card iac silhouette remains mildly enlarged. Prior cholecystectomy. No acute fractures identified. IMPRESSION: 1. Endotracheal tube terminates at the benny. This should be retracted by 2 to 3 cm. 2. Interstitial thickening with patchy left lung airspace opacities. This may represent asymmetric pu lmonary edema or a pneumonitis. ACT 112: Negative or not required by law. Electronically signed by: Omid Pedroza M.D. 12/20/2022 6:57 AM
--- NOTE | 2022-12-20 06:59 | XRay Report ---
XR chest 1V portable HISTORY: reposition ETT COMPARISON: Chest 12/19/2022. FINDINGS: The endotracheal tube is been retracted and now measures 2.8 cm from the benny. No pneumot horax. No pleural effusions. A nasogastric tube terminates below the diaphragm. The tip is not includ ed on this study. Mild interstitial thickening left lung patchy airspace opacities persist. The heart remains mildly enlarged. IMPRESSION: 1. Satisfactory support line placement. 2. Interstitial thickening and patchy left lung airspace opacities persist. ACT 112: Negative or not required by law. Electronically signed by: Omid Pedroza M.D. 12/20/2022 6:58 AM
[2022-12-20] MEDS ORDERED: Heparin IVP from UFH Protocol (WITH Bolus) IV ONE (07:00)
--- NOTE | 2022-12-20 07:00 | XRay Report ---
XR chest 1V portable HISTORY: Resp failure COMPARISON: Chest 12/19/2022. FINDINGS: Endotracheal tube terminates 3.3 cm from the benny. The nasogastric tube terminates below the diaphragm. The tip is not included on this study. No pneumothorax. No pleural effusions. The hear t remains mildly enlarged. Interstitial thickening persists. Patchy left lung airspace opacities have slightly improved. IMPRESSION: 1. Satisfactory support line placement. 2. Patchy left lung airspace opacities have improved. ACT 112: Negative or not required by law. Electronically signed by: Omid Pedroza M.D. 12/20/2022 6:59 AM
[2022-12-20] MEDS ORDERED: INSULIN ASPART PER UNIT CHARGE SC SCH (07:30)
[2022-12-20 08:20] LABS: Partial Thromboplastin Ratio 0.7
[2022-12-20 08:26] LABS: Partial Thromboplastin Time < 20.0 Seconds (21.0-31.0)
[2022-12-20] MEDS: HEPARIN SODIUM/DEXTROSE 25,000 UNITS/500 ML BAG IV SCH (08:29)
[2022-12-20 08:51] LABS: BUN Creatinine Ratio 6.7 (10-20); Calcium 7.2 mg/dl (8.6-10.3); Creatinine Clr Calc Pharmacy 59.2 ml/min; Est GFR (African American) 79.9 ml/min; Magnesium 1.6 mg/dl (1.7-2.4); Potassium 3.1 mmol/L (3.5-5.1)
[2022-12-20] MEDS: ICU Protocol for HYPERglycemia SCH (08:58)
[2022-12-20] MEDS ORDERED: FAMOTIDINE 20 MG in SYRINGE 3 ML IV SCH (09:00)
[2022-12-20] MEDS ORDERED: MAGNESIUM OXIDE 400 MG TAB PO SCH (09:00)
[2022-12-20] MEDS ORDERED: POTASSIUM CHLORIDE 20 MEQ/15 ML UDC PO SCH ×2 (09:00→12:00)
[2022-12-20] MEDS ORDERED: MULTIVITAMIN TAB PO SCH (09:00)
[2022-12-20] MEDS: PANTOprazole 40 MG TAB PO SCH (09:06)
--- NOTE | 2022-12-20 09:39 | Critical Care Progress Note ---
Date of Service December 20, 2022 Assessment & Plan (1) Ventricular tachycardia: Plan: Reason Critically Ill: 62-year-old female presents to the ICU mechanically ventilated and on vasopressor support following episode of ventricular tachycardia where she became unresponsive with agonal breathing and required defibrillation and intubation. Patient currently undergoing treatment for severe electrolyte abnormalities with EKG changes and on amiodarone drip. Neuro - Sedation: Discontinued following extubation Delusional disorder/anxiety and depressionresume home psych meds once stable and able to take p.o. CT head and cervical spine negative for acute findings Cardiac - Ventricular tachycardialikely due to severe electrolyte abnormalities which are currently being repleted. Underwent emergent defibrillation in the ED. -Continue amiodarone at this time -Anticipate ability to discontinue once electrolytes are repleted Prolonged QTc -Aggressive electrolyte repletion Hypotensionweaning Levophed drip. Respiratory - Successfully liberated from the ventilator GI - GERDIV famotidine twice daily -Transition to Protonix p.o. as a home med RENAL/LYTES - Hypokalemia/hypomagnesemia/hypocalcemiapatient with severe electrolyte abnormalities and currently undergoing aggressive repletion following V. tach episode and EKG changes. -Transition to oral repletion with supplemental IV formulations -Optimize CK greater than 3 5 ideally greater than 4 magnesium greater than 2 Rhabdomyolysisinitial CPK 848. No indication for treatment - Foleystrict I's and O's -Can discontinue Carney ENDO - Hyperglycemia: Stable to initiate subcutaneous insulin as well as long-acting Hypothyroidismcontinue Synthroid when appropriate HEME - H&H stable, monitor routine CBC ID - Transition to Unasyn for empiric coverage reevaluate next 24 hours LINES/IV ACCESS - Right femoral CVC triple-lumen continue for aggressive potassium repletion DVT PROPHYLAXIS - SCDs I have personally spent 55 minutes of critical care time in the direct management of this patient. This is a life/limb threatening event. This includes time spent evaluating patient, direct bedside care, chart review, placing orders, interpretation of diagnostic studies, discussion with consultants, patient, and family members, as well as other required patient management activities. This time is exclusive of all separately billable procedures, and teaching time and separate from and in addition to any other critical care service time. (2) Respiratory arrest before cardiac arrest: (3) Acute non-ST elevation myocardial infarction (NSTEMI): (4) Hypomagnesemia: (5) Hypokalemia: (6) Hypocalcemia: (7) Hyperglycemia due to type 2 diabetes mellitus: (8) Cigarette smoker: (9) GERD (gastroesophageal reflux disease): (10) Delusional disorder: (11) Hypothyroidism: (12) Fall: Admission and Anticipated Discharge Date Admission Date: December 19, 2022 Subjective Received echo this morning. Tolerating her ventilator with minimal vent settings we will proceed with extubation. Able to follow complex commands. Physical Exam Physical Exam: General: Following complex commands, able to give thumbs up and show 2 fingers. nontoxic. Skin: Warm, dry, Head: Atraumatic Ears, nose, mouth and throat: airway obscured by endotracheal tube Cardiovascular: Normal peripheral perfusion Respiratory: Ventilator settings reviewed Gastrointestinal: Non distended Musculoskeletal: No deformity Results & Data Results & Data Vital Signs (Past 12 Hours) Vital Signs Temp Pulse Pulse Resp BP BP Pulse Ox 12/20/22 07:12 74 28 H 97 12/20/22 04:00 12/20/22 02:00 83/60 L 12/20/22 02:00 59 L 22 99 12/20/22 01:45 86/62 L 12/20/22 01:45 61 22 100 12/20/22 01:30 83/59 L 12/20/22 01:30 59 L 19 100 12/20/22 01:15 83/59 L 12/20/22 01:15 59 L 21 100 12/20/22 01:00 79/59 L 12/20/22 01:00 58 L 18 100 12/20/22 00:45 61 20 99 12/20/22 00:45 126/75 12/20/22 00:32 55 L 18 100 12/20/22 00:32 78/60 L 12/20/22 00:32 78/60 L 12/20/22 00:31 78/59 L 12/20/22 00:31 55 L 18 100 12/20/22 00:30 57 L 18 100 12/20/22 00:16 137/81 12/20/22 00:16 62 18 100 12/20/22 00:01 130/79 12/20/22 00:01 57 L 18 93 12/20/22 00:00 56 L 18 100 12/20/22 00:00 59 L 12/20/22 00:00 12/19/22 23:45 54 L 18 100 12/19/22 23:45 93/70 L 12/19/22 23:31 56 L 18 100 12/19/22 23:31 117/82 12/19/22 23:30 60 18 100 12/19/22 23:15 86/62 L 12/19/22 23:15 56 L 18 100 12/19/22 23:00 63 18 91/70 L 100 12/19/22 23:00 63 18 100 12/19/22 23:00 91/70 L 12/19/22 22:46 152/89 H 12/19/22 22:46 70 18 99 12/19/22 22:30 155/98 H 12/19/22 22:30 70 18 100 12/19/22 22:15 155/94 H 12/19/22 22:15 66 18 100 12/19/22 22:00 36.4 C 57 L 18 146/82 H 100 12/19/22 22:00 146/82 H 12/19/22 22:00 57 L 18 100 O2 Del Method FiO2 12/20/22 07:12 40 12/20/22 04:00 40 12/20/22 02:00 12/20/22 02:00 12/20/22 01:45 12/20/22 01:45 12/20/22 01:30 12/20/22 01:30 12/20/22 01:15 12/20/22 01:15 12/20/22 01:00 12/20/22 01:00 12/20/22 00:45 12/20/22 00:45 12/20/22 00:32 12/20/22 00:32 12/20/22 00:32 12/20/22 00:31 12/20/22 00:31 12/20/22 00:30 12/20/22 00:16 12/20/22 00:16 12/20/22 00:01 12/20/22 00:01 12/20/22 00:00 12/20/22 00:00 12/20/22 00:00 40 12/19/22 23:45 12/19/22 23:45 12/19/22 23:31 12/19/22 23:31 12/19/22 23:30 12/19/22 23:15 12/19/22 23:15 12/19/22 23:00 Mechanical Vent 40 12/19/22 23:00 12/19/22 23:00 12/19/22 22:46 12/19/22 22:46 12/19/22 22:30 12/19/22 22:30 12/19/22 22:15 12/19/22 22:15 12/19/22 22:00 Mechanical Vent 40 12/19/22 22:00 12/19/22 22:00 Critical Care Results & Data Vital Signs (Past 12 Hours) Vital Signs Temp Pulse Pulse Resp BP BP Pulse Ox 12/20/22 07:12 74 28 H 97 12/20/22 04:00 12/20/22 02:00 83/60 L 12/20/22 02:00 59 L 22 99 12/20/22 01:45 86/62 L 12/20/22 01:45 61 22 100 12/20/22 01:30 83/59 L 12/20/22 01:30 59 L 19 100 12/20/22 01:15 83/59 L 12/20/22 01:15 59 L 21 100 12/20/22 01:00 79/59 L 12/20/22 01:00 58 L 18 100 12/20/22 00:45 61 20 99 12/20/22 00:45 126/75 12/20/22 00:32 55 L 18 100 12/20/22 00:32 78/60 L 12/20/22 00:32 78/60 L 12/20/22 00:31 78/59 L 12/20/22 00:31 55 L 18 100 12/20/22 00:30 57 L 18 100 12/20/22 00:16 137/81 12/20/22 00:16 62 18 100 12/20/22 00:01 130/79 12/20/22 00:01 57 L 18 93 12/20/22 00:00 56 L 18 100 12/20/22 00:00 59 L 12/20/22 00:00 12/19/22 23:45 54 L 18 100 12/19/22 23:45 93/70 L 12/19/22 23:31 56 L 18 100 12/19/22 23:31 117/82 12/19/22 23:30 60 18 100 12/19/22 23:15 86/62 L 12/19/22 23:15 56 L 18 100 12/19/22 23:00 63 18 91/70 L 100 12/19/22 23:00 63 18 100 12/19/22 23:00 91/70 L 12/19/22 22:46 152/89 H 12/19/22 22:46 70 18 99 12/19/22 22:30 155/98 H 12/19/22 22:30 70 18 100 12/19/22 22:15 155/94 H 12/19/22 22:15 66 18 100 12/19/22 22:00 36.4 C 57 L 18 146/82 H 100 12/19/22 22:00 146/82 H 12/19/22 22:00 57 L 18 100 O2 Del Method FiO2 12/20/22 07:12 40 12/20/22 04:00 40 12/20/22 02:00 12/20/22 02:00 12/20/22 01:45 12/20/22 01:45 12/20/22 01:30 12/20/22 01:30 12/20/22 01:15 12/20/22 01:15 12/20/22 01:00 12/20/22 01:00 12/20/22 00:45 12/20/22 00:45 12/20/22 00:32 12/20/22 00:32 12/20/22 00:32 12/20/22 00:31 12/20/22 00:31 12/20/22 00:30 12/20/22 00:16 12/20/22 00:16 12/20/22 00:01 12/20/22 00:01 12/20/22 00:00 12/20/22 00:00 12/20/22 00:00 40 12/19/22 23:45 12/19/22 23:45 12/19/22 23:31 12/19/22 23:31 12/19/22 23:30 12/19/22 23:15 12/19/22 23:15 12/19/22 23:00 Mechanical Vent 40 12/19/22 23:00 12/19/22 23:00 12/19/22 22:46 12/19/22 22:46 12/19/22 22:30 12/19/22 22:30 12/19/22 22:15 12/19/22 22:15 12/19/22 22:00 Mechanical Vent 40 12/19/22 22:00 12/19/22 22:00 Lab & Micro Results (Past 24 Hours) RBC 4.73 M/uL (4.20-5.40) 12/20/22 WBC 26.06 K/ul (4.8-10.8) H 12/20/22 Hgb 13.9 g/dl (12.0-16.0) 12/20/22 Hct 38.5 % (37.0-47.0) 12/20/22 MCV 81.4 fL (80.0-100.0) 12/20/22 MCH 29.4 pg (25.0-34.0) 12/20/22 MCHC 36.1 g/dL (32.0-36.0) H 12/20/22 RDW Standard Deviation 42.7 fL (36.4-46.3) 12/20/22 RDW Coefficient of Variation 14.9 % (11.5-14.5) H 12/20/22 Plt Count 339 K/uL (130-400) 12/20/22 MPV 11.8 fL (9.4-12.4) 12/20/22 Neutrophils (%) (Auto) 85.0 % 12/20/22 Lymphocytes (%) (Auto) 8.4 % 12/20/22 Monocytes # (Auto) 1.43 K/uL (0.11-0.59) H 12/20/22 Eosinophils # (Auto) 0.02 K/uL (0.00-0.50) 12/20/22 Immature Granulocyte % (Auto) 0.8 % 12/20/22 Neutrophils # (Auto) 22.13 K/uL (1.40-6.50) H 12/20/22 Lymphocytes # (Auto) 2.20 K/uL (1.20-3.40) 12/20/22 Monocytes # (Auto) 1.43 K/uL (0.11-0.59) H 12/20/22 Eosinophils # (Auto) 0.02 K/uL (0.00-0.50) 12/20/22 Basophils # (Auto) 0.06 K/uL (0.00-0.20) 12/20/22 Immature Granulocyte # (Auto) 0.22 K/uL (0.01-0.20) H 12/20 Na 138 mmol/L (136-145) 12/20/22 K 2.5 mmol/L (3.5-5.1) L* 12/20/22 Cl 101 mmol/L (98-107) 12/20/22 CO2 24 mmol/L (21-32) 12/20/22 Anion Gap 13 (3-11) H 12/20/22 BUN 7 mg/dl (6-23) 12/20/22 Creatinine 0.96 mg/dl (0.6-1.2) 12/20/22 Estimated GFR ( Amer) 72.9 ml/min 12/20/22 Estimated GFR (Non-Af Amer) 62.9 ml/min 12/20/22 BUN/Creatinine Ratio 7.3 (10-20) L 12/20/22 Glu 343 mg/dl (70-99(Fasting)) H* 12/20/22 Ca 6.7 mg/dl (8.6-10.3) L 12/20/22 Phosphorus Level 1.9 mg/dl (2.5-4.9) L 12/20/22 Total Bilirubin 0.4 mg/dl (0.2-1.0) 12/20/22 Direct Bilirubin 0.5 mg/dl (0-0.2) H 12/19/22 AST 23 U/L (13-39) 12/20/22 ALT 14 U/L (7-52) 12/20/22 Alkaline Phosphatase 144 U/L (34-104) H 12/20/22 TP 5.7 gm/dl (6.0-8.3) L 12/20/22 Albumin 2.4 gm/dl (3.4-5.0) L 12/20/22 Globulin 3.3 gm/dl (2.5-4.0) 12/20/22 Albumin/Globulin Ratio 0.7 (0.9-2) L 12/20/22 Mg 1.7 mg/dl (1.7-2.4) 12/20/22 12:09 Calcium Level 6.7 mg/dl (8.6-10.3) L 12/20/22 12:09 Ionized Calcium 0.90 mmol/L (1.12-1.32) L 12/19/22 21:03 Prothromb Time International Ratio 1.0 (0.9-1.1) 12/19/22 17:4 5 Venous Blood pH 7.45 (7.36-7.41) H 12/19/22 17:59 Venous Blood Partial Pressure CO2 48 mmHg (38-50) 12/19/22 17:5 9 Venous Blood Partial Pressure O2 < 20 mmHg 12/19/22 17:59 Venous Blood HCO3 33 mmol/L 12/19/22 17:59 Venous Blood Base Excess 8.1 mEq/L 12/19/22 17:59 Venous Blood Oxygen Saturation < 60.0 % 12/19/22 17:59 Brian Test Pass 12/20/22 05:57 Diagnostic Findings (Past 24 Hours) Abdomen/Pelvis CT 12/19/22 17:35 CT OF THE ABDOMEN AND PELVIS WITH CONTRAST CLINICAL HISTORY: trauma COMPARISON STUDY: CT of the abdomen and pelvis October 25, 2022. TECHNIQUE: Following IV administration of 93 mL of Optiray, axial images of the abdomen and pelvis were obtained from the lung bases to the proximal femurs. Images were reviewed in the axial, sagittal, and coronal planes. IV contrast was administered without complication. Automated exposure control was utilized for the study. A dose lowering technique was utilized adhering to the principles of ALARA. CT DOSE: 3298.55 mGy.cm FINDINGS: No hemoperitoneum or pneumoperitoneum is present. There is no evidence for traumatic injury to the liver, spleen, adrenal glands, kidneys or pancreas. The gallbladder is surgically absent. There is no biliary ductal dilatation. Several left renal cysts are present. A Carney balloon within the bladder is present. Right colon wall thickening is likely due to underdistention. There is sigmoid diverticulosis without evidence for acute diverticulitis. There is no ascites. There is no lymphadenopathy. Several calcified fibroids are incidentally noted. No acute lumbar spine, pelvic or hip fracture is identified. There is mild anasarca. IMPRESSION: No acute traumatic findings within the abdomen or pelvis. ACT 112: Negative or not required by law. Electronically signed by: Nahun Odell M.D. 12/19/2022 6:[address] 12/19/22 17:35 CT OF THE CERVICAL SPINE WITHOUT CONTRAST CLINICAL HISTORY: trauma COMPARISON STUDY: No previous studies for comparison. TECHNIQUE: Helical axial images of the cervical spine were obtained without IV contrast. Sagittal and coronal reconstructions were viewed. Automated exposure control was utilized for the study. A dose lowering technique was utilized adhering to the principles of ALARA. FINDINGS: Alignment of the cervical spine is anatomic. Vertebral body heights are maintained. No acute cervical spine fracture or subluxation is present. There is no prevertebral edema. Facet joints are intact. There is moderate multilevel facet arthrosis. IMPRESSION: No acute cervical spine fracture or subluxation. ACT 112: Negative or not required by law. Electronically signed by: Nahun Odell M.D. 12/19/2022 6:[address] 12/19/22 17:35 CT OF THE CHEST WITH IV CONTRAST CLINICAL HISTORY: trauma COMPARISON STUDY: Chest CT April 09, 2021. TECHNIQUE: Following IV administration of 93 mL of Optiray, helical axial images of the chest were obtained. Sagittal and coronal reconstructions were viewed as well as maximal intensity projections on an independent 3-D workstation. Automated exposure control was utilized for the study. A dose lowering technique was utilized adhering to the principles of ALARA. FINDINGS: There is no evidence for traumatic injury to the thoracic aorta. No mediastinal hematoma is noted. No pericardial effusion. There is mild cardiomegaly and extensive coronary artery calcification. There is mild dilatation of the central pulmonary arteries. No pneumothorax or pleural effusion is present. Lungs are suboptimally assessed due to respiratory motion. There are mild groundglass opacities with mosaic attenuation within the lungs. Subpleural left lung opacities favor atelectasis. No acute rib or thoracic spine fracture is noted. The abdomen and pelvis CT will be reported separately. IMPRESSION: 1. No acute traumatic findings within the chest. 2. Mild groundglass opacities with mosaic attenuation within lungs. The findings could reflect atelectasis, air trapping or mild pulmonary edema. 3. Asymmetric subpleural left lung opacities likely reflect atelectasis. ACT 112: Negative or not required by law. Electronically signed by: Nahun Odell M.D. 12/19/2022 6:[address] 12/19/22 17:35 CT OF THE HEAD WITHOUT CONTRAST CLINICAL HISTORY: trauma COMPARISON STUDY: MRI of the brain September 08, 2021. Head CT September 07, 2022. TECHNIQUE: Helical axial images of the head were obtained without IV contrast. Automated exposure control was utilized for the study. A dose lowering technique was utilized adhering to the principles of ALARA. FINDINGS: No acute intracranial hemorrhage, midline shift or mass effect is present. The ventricular system is unremarkable. The basal cisterns are patent. No extra-axial collections are present. There are no findings to suggest acute dural sinus thrombosis or acute territorial infarct. No significant calvarial abnormalities are present. Visualized portions of the sinuses and mastoid air cells are clear. IMPRESSION: 1. No acute intracranial findings. 2. No acute calvarial fracture. ACT 112: Negative or not required by law. Electronically signed by: Nahun Odell M.D. 12/19/2022 6:35 PM Chest X-Ray 12/19/22 17:36 XR chest 1V portable CLINICAL HISTORY: Sepsis. COMPARISON STUDY: Chest CT April 09, 2021. Chest radiograph October 19, 2022. FINDINGS: No pneumothorax or pleural effusion is present. There is no lobar consolidation. There is mild interstitial thickening. Cardiomegaly is noted. There is mediastinal widening. IMPRESSION: 1. Upper mediastinal widening. This is likely technical however can be assessed on contrast-enhanced chest CT which has been ordered. 2. Interstitial thickening. This favors pulmonary vascular congestion with possible mild pulmonary edema. An infectious process could appear similar. ACT 112: Negative or not required by law. Electronically signed by: Nahun Odell M.D. 12/19/2022 6:23 PM Chest X-Ray 12/19/22 19:17 XR chest 1V portable HISTORY: Status post endotracheal tube placement. COMPARISON: Chest 12/19/2022. FINDINGS: Rotated study. The endotracheal tube terminates at the benny. Interstitial thickening with patchy left lung airspace opacities are again noted. No pneumothorax. No pleural effusions. The cardiac silhouette remains mildly enlarged. Prior cholecystectomy. No acute fractures identified. IMPRESSION: 1. Endotracheal tube terminates at the benny. This should be retracted by 2 to 3 cm. 2. Interstitial thickening with patchy left lung airspace opacities. This may represent asymmetric pulmonary edema or a pneumonitis. ACT 112: Negative or not required by law. Electronically signed by: Omid Pedroza M.D. 12/20/2022 6:57 AM Chest X-Ray 12/19/22 19:47 XR chest 1V portable HISTORY: reposition ETT COMPARISON: Chest 12/19/2022. FINDINGS: The endotracheal tube is been retracted and now measures 2.8 cm from the benny. No pneumothorax. No pleural effusions. A nasogastric tube terminates below the diaphragm. The tip is not included on this study. Mild interstitial thickening left lung patchy airspace opacities persist. The heart remains mildly enlarged. IMPRESSION: 1. Satisfactory support line placement. 2. Interstitial thickening and patchy left lung airspace opacities persist. ACT 112: Negative or not required by law. Electronically signed by: Omid Pedroza M.D. 12/20/2022 6:58 AM Chest X-Ray 12/20/22 07:00 XR chest 1V portable HISTORY: Resp failure COMPARISON: Chest 12/19/2022. FINDINGS: Endotracheal tube terminates 3.3 cm from the benny. The nasogastric tube terminates below the diaphragm. The tip is not included on this study. No pneumothorax. No pleural effusions. The heart remains mildly enlarged. Interstitial thickening persists. Patchy left lung airspace opacities have slightly improved. IMPRESSION: 1. Satisfactory support line placement. 2. Patchy left lung airspace opacities have improved. ACT 112: Negative or not required by law. Electronically signed by: Omid Pedroza M.D. 12/20/2022 6:59 AM I & O Totals 24 Hours 12/19/22 12/20/22 12/21/22 06:59 06:59 06:59 Intake Total 4993.368 / 4993.368 605.547 / 605.547 Output Total 2620 / 2620 Balance 2373.368 / 2373.368 605.547 / 605.547 Cumulative 12/19/22 17:16 thru 12/20/22 08:59 Intake Total 5598.915 Output Total 2620 Balance 2978.915 RT Ventilator Mngmt (Last Documented) Ventilator Ordered Settings Ventilator Support Mode CPAP 12/20/22 07:12 Respiratory Rate 28 12/20/22 07:12 Ventilator Tidal Volume 360 12/20/22 04:00 Setting Minute Ventilation 8 12/20/22 07:12 Positive End Expiratory 5 12/20/22 07:12 Pressure Fraction of Inspired Oxygen 40 12/20/22 07:12 Ventilator - PT Measurements Respiratory Rate 28 Exhaled Tidal Volume 301 Minute Ventilation 8 Peak Inspiratory Airway 26 Pressure Plateau Pressure 19 Respiratory Cycle Inspiratory: 1:2.3 Expiratory Ratio Inspiratory Phase Time 0.9 End-Tidal CO2 31 Static Lung Compliance 21.50 Dynamic Lung Compliance 22.32 Normal Static Lung Compliance 46.00 Coding Level of Care Code 66212 CRITICAL CARE 1ST 30-74M Diagnoses Ventricular tachycardia I47.20 Respiratory arrest before cardiac arrest I46.9; R09.2 Acute non-ST elevation myocardial infarction (NSTEMI) I21.4 Hypomagnesemia E83.42 Hypokalemia E87.6 Hypocalcemia E83.51 Hyperglycemia due to type 2 diabetes mellitus E11.65 Cigarette smoker F17.210 GERD (gastroesophageal reflux disease) K21.9 Delusional disorder F22 Hypothyroidism E03.9 Fall W19.XXXA Encounter type: initial encounter (12) Fall Encounter type: initial encounter Qualified Code(s): W19.XXXA - Unspecified fall, initial encounter
[2022-12-20] MEDS ORDERED: ACETAMINOPHEN 1,000 MG/100 ML VIAL IV STA (09:45)
[2022-12-20] MEDS ORDERED: MAGNESIUM SULFATE / D5W 1 GM/100 ML BAG IV ONE ×3 (10:00→22:45)
[2022-12-20] MEDS: UNASYN 3000MG / NS q6h IV SCH ×2 (11:33→18:09)
[2022-12-20 11:42] LABS: iSTAT Allen Test Pass; iSTAT Art Bld Gas pCO2 Correct 35 mmHg (35-46); iSTAT Arterial Blood Gas HCO3 26 meg/L (19-24); iSTAT Arterial Blood Gas pCO2 34 mmHg (35-46); iSTAT Arterial Blood Gas pH 7.48 (7.35-7.45); iSTAT Arterial Blood Gas pO2 55 mmHg (80-95); iSTAT Arterial Blood Gas pO2 C 59; iSTAT Carbon Dioxide 27 mmol/L (24-31); iSTAT FiO2 40 %; iSTAT Hematocrit 36 % (37-47); iSTAT Hemoglobin 12.2 g/dl (12.0-16.0); iSTAT Potassium 2.1 mmol/L (3.3-5.0); iSTAT Site R Radial; iSTAT Sodium 139 mmol/L (135-144)
[2022-12-20] MEDS ORDERED: Nursing to Pharmacy Communication SCH (11:45)
[2022-12-20] MEDS ORDERED: PIPERACILLIN/TAZOBACTAM 4.5 GM in DEXTROSE 5% MINI-B 100 ML IV SCH (12:00)
[2022-12-20] MEDS: INSULIN ASPART PER UNIT CHARGE SC SCH ×3 (12:00→21:09)
[2022-12-20 12:40] LABS: BUN Creatinine Ratio 7.3 (10-20); Calcium 6.7 mg/dl (8.6-10.3); Creatinine Clr Calc Pharmacy 54.9 ml/min; Est GFR (African American) 72.9 ml/min; Est GFR (Non-African American) 62.9 ml/min; Magnesium 1.7 mg/dl (1.7-2.4); Potassium 2.5 mmol/L (3.5-5.1)
[2022-12-20] MEDS ORDERED: POTASSIUM CITRATE 10 MEQ TAB PO STA (12:54)
[2022-12-20] MEDS ORDERED: MAGNESIUM OXIDE 400 MG TAB PO STA (12:54)
[2022-12-20] MEDS ORDERED: MULTIVITAMIN TAB PO STA (12:54)
[2022-12-20] MEDS: POTASSIUM ACETATE/NSS 20 MEQ/110 ML BAG IV SCH ×4 (13:25→20:03)
[2022-12-20] MEDS: LANTUS PER UNIT CHARGE SC SCH (15:10)
[2022-12-20 15:48] LABS: Partial Thromboplastin Time 84.3 Seconds (21.0-31.0)
[2022-12-20 17:14] LABS: BUN Creatinine Ratio 6.7 (10-20); Calcium 6.5 mg/dl (8.6-10.3); Creatinine Clr Calc Pharmacy 58.6 ml/min; Est GFR (African American) 78.9 ml/min; Magnesium 1.7 mg/dl (1.7-2.4); Potassium 2.5 mmol/L (3.5-5.1)
--- NOTE | 2022-12-20 20:33 | Electrocardiogram Report ---
Test Reason : Blood Pressure : / mmHG Vent. Rate : 072 BPM Atrial Rate : 072 BPM P-R Int : 124 ms QRS Dur : 070 ms QT Int : 334 ms P-R-T Axes : 036 031 223 degrees QTc Int : 365 ms Normal sinus rhythm Prolonged QT Abnormal ECG Confirmed by Omer Andrade ([id number]) on 12/20/2022 8:33:10 PM Referred By: REFERRED SELF Confirmed By:Norberto Andrade
--- NOTE | 2022-12-20 20:36 | Electrocardiogram Report ---
Test Reason : Blood Pressure : / mmHG Vent. Rate : 065 BPM Atrial Rate : 065 BPM P-R Int : 122 ms QRS Dur : 074 ms QT Int : 696 ms P-R-T Axes : 040 031 076 degrees QTc Int : 723 ms Normal sinus rhythm Prolonged QT Abnormal ECG When compared with ECG of 20-DEC-2022 09:25, (unconfirmed) QT has lengthened Confirmed by Omer Andrade ([id number]) on 12/20/2022 8:36:14 PM Referred By: REFERRED SELF Confirmed By:Norberto Andrade
[2022-12-20] MEDS: POTASSIUM CHLORIDE CRTAB 20 MEQ TABCR PO SCH (20:39)
[2022-12-20] MEDS: MAGNESIUM OXIDE 400 MG TAB PO SCH (20:39)
--- NOTE | 2022-12-20 20:43 | Electrocardiogram Report ---
Test Reason : Blood Pressure : / mmHG Vent. Rate : 060 BPM Atrial Rate : 060 BPM P-R Int : 130 ms QRS Dur : 068 ms QT Int : 670 ms P-R-T Axes : 046 052 061 degrees QTc Int : 670 ms Normal sinus rhythm with sinus arrhythmia Marked ST abnormality, possible inferior subendocardial injury Prolonged QT Abnormal ECG Confirmed by Omer Andrade ([id number]) on 12/20/2022 8:43:02 PM Referred By: REFERRED SELF Confirmed By:Norberto Andrade
--- NOTE | 2022-12-20 20:43 | Electrocardiogram Report ---
Test Reason : Blood Pressure : / mmHG Vent. Rate : 083 BPM Atrial Rate : 083 BPM P-R Int : 200 ms QRS Dur : 080 ms QT Int : 486 ms P-R-T Axes : 056 053 240 degrees QTc Int : 571 ms Normal sinus rhythm Marked ST abnormality, possible inferior subendocardial injury Marked ST abnormality, possible anterior subendocardial injury Prolonged QT Abnormal ECG Confirmed by Omer Andrade ([id number]) on 12/20/2022 8:43:14 PM Referred By: REFERRED SELF Confirmed By:Norberto Andrade
--- NOTE | 2022-12-20 20:43 | Electrocardiogram Report ---
Test Reason : Blood Pressure : / mmHG Vent. Rate : 055 BPM Atrial Rate : 055 BPM P-R Int : 138 ms QRS Dur : 082 ms QT Int : 734 ms P-R-T Axes : 027 054 055 degrees QTc Int : 702 ms Sinus bradycardia with sinus arrhythmia ST depression, consider subendocardial injury Prolonged QT Abnormal ECG Confirmed by Omer Andrade ([id number]) on 12/20/2022 8:43:26 PM Referred By: REFERRED SELF Confirmed By:Norberto Andrade
--- NOTE | 2022-12-20 20:44 | Electrocardiogram Report ---
Test Reason : Blood Pressure : / mmHG Vent. Rate : 068 BPM Atrial Rate : 068 BPM P-R Int : 114 ms QRS Dur : 078 ms QT Int : 658 ms P-R-T Axes : 000 053 173 degrees QTc Int : 699 ms Normal sinus rhythm Prolonged QT Abnormal ECG Confirmed by Omer Andrade ([id number]) on 12/20/2022 8:43:39 PM Referred By: REFERRED SELF Confirmed By:Norberto Andrade
[2022-12-20 22:03] LABS: Calcium 6.3 mg/dl (8.6-10.3); Creatinine Clr Calc Pharmacy 60.6 ml/min; Est GFR (African American) 82.2 ml/min; Est GFR (Non-African American) 70.9 ml/min; Magnesium 1.9 mg/dl (1.7-2.4); Potassium 2.4 mmol/L (3.5-5.1)
--- NOTE | 2022-12-20 22:26 | Hospitalist Progress Note ---
Date of Service December 20, 2022 Assessment & Plan (1) Shock: Plan: Started on Levophed in the ER, cardiogenic, no source of infection to suspect septic Deferred ongoing treatment to ICU Appears cardiac arrest was due to electrolyte abnormalities: hypokalemia specifi giovanny Potassium at 1.5 on admission being replaced. On vasopressor support (2) Ventricular tachycardia: Plan: Continue if IV amiodarone Consult cardiology - ER physician discussed with Dr Valentin and not for cardiac laboratory chief at this time - replace electrolytes first Aim K > 4, Mg > 2, KCL 20 meq IV added once central line inserted to be given over the next hour, avoid insulin until potassium replaced Appreciate ICU ongoing management of this TTE completed. (3) Hypokalemia: Plan: As above - will need ongoing replacement in ICU K 1.5 on arrival to the ER Suspect secondary to gastroparesis as this has been a recurrent problem in the past although never quite this low. (4) Hypomagnesemia: Plan: Mg level 1.1 in ER s/p Mg sulfate 1g bolus then 1g IV Further replacement per ICU (5) Elevated troponin: Plan: Unclear if demand vs. NSTEMI Given non-compliance with medication and known CAD she is high risk for NSTEMI although no chest pain noted by patient per ER prior to VT Trend troponin overnight. Consult cardiology - ICU discussed with Dr Valentin and alba for heparin at this time TTE (6) Fall: Plan: Possible fall on left side and struck her face. No injuries on CT head, cervical spine, chest/abdo/pelvis Suspect weakness due to electrolytes imbalance (7) GERD (gastroesophageal reflux disease): Plan: Switch famotidine and pantoprazole to IV (8) S/P coronary artery stent placement: Plan: 2 CHANTAL to LAD 10/22/2020 Continue ASA, Brillinta, atorvastatin once able from ICU perspective Not on BB due to bradycardia (9) Elevated creatine kinase: Plan: Suspect due to elevated troponin rather than rhabdo, continue to trend (10) Noncompliance: Plan VTE Prophyalxis - heparin drip Diet - NPO Disposition - admit to ICU Admission and Anticipated Discharge Date Admission Date: December 19, 2022 Subjective Patient now extubated, patient reports sore throat from intubation. Review of Systems Review of Systems: All systems reviewed & are unremarkable except as noted in HPI & below Physical Exam Physical Exam: Constitutional: well developed; + not well nourished and no acute distress Eyes: PERRL, conjunctivae normal, anicteric sclerae Respiratory: normal respiratory effort; no respiratory distress Auscultation: + rhonchi (bilateral); breath sounds present, no diminished lung sounds and no wheezes Intubated and sedated Cardiovascular: Rate/Rhythm: regular rate and regular rhythm Heart Sounds: no murmur Extremities: + pedal edema; + abnormal capillary refill (central 2 seconds, peripheral 10 seconds) Gastrointestinal (Abdomen): Inspection/Auscultation: abdomen normal to inspection; abdomen not distended Percussion/Palpation: abdomen soft; abdomen nontender Skin: no rashes, warm and dry (no areas of cellulitis noted) Neurologic: + not awake (intubated and sedated) Results & Data Results & Data Vital Signs (Past 12 Hours) Vital Signs Temp Pulse Resp BP Pulse Ox O2 Del Method O2 Flow Rate 12/20/22 18:15 37.5 C 70 28 H 111/68 97 Nasal Cannula 2 12/20/22 18:00 37.5 C 70 25 H 99/63 L 100 Nasal Cannula 2 12/20/22 17:30 37.5 C 72 28 H 85/55 L 96 Nasal Cannula 2 12/20/22 17:15 37.6 C H 72 29 H 87/58 L 90 Nasal Cannula 2 12/20/22 17:07 37.6 C H 75 18 98/62 L 95 Nasal Cannula 2 12/20/22 16:46 37.6 C H 71 17 97/46 L 95 Nasal Cannula 2 12/20/22 16:31 37.6 C H 72 24 123/78 97 Nasal Cannula 2 12/20/22 16:15 37.6 C H 68 28 H 97/66 L 98 Nasal Cannula 3 12/20/22 16:00 37.6 C H 67 22 95/63 L 97 Nasal Cannula 3 12/20/22 15:45 37.6 C H 69 25 H 98/67 L 99 Nasal Cannula 3 12/20/22 15:30 37.7 C H 68 23 84/60 L 97 Nasal Cannula 3 12/20/22 15:15 37.7 C H 69 28 H 104/68 97 Nasal Cannula 3 12/20/22 15:00 37.7 C H 69 23 95/67 L 97 Nasal Cannula 3 12/20/22 14:45 37.7 C H 68 22 103/66 96 Nasal Cannula 3 12/20/22 14:30 37.7 C H 66 22 87/60 L 96 Nasal Cannula 3 12/20/22 14:15 37.7 C H 66 23 84/59 L 96 Nasal Cannula 3 12/20/22 14:00 37.7 C H 65 21 88/59 L 97 Nasal Cannula 3 12/20/22 13:45 37.7 C H 66 25 H 96/61 L 97 Nasal Cannula 3 12/20/22 13:30 37.8 C H 66 27 H 107/70 98 Nasal Cannula 3 12/20/22 13:15 37.8 C H 63 30 H 97/63 L 98 Nasal Cannula 3 12/20/22 13:00 37.7 C H 64 26 H 100/60 96 Nasal Cannula 3 12/20/22 12:45 37.7 C H 65 32 H 98/59 L 96 Nasal Cannula 3 12/20/22 12:30 37.7 C H 66 27 H 102/65 98 Nasal Cannula 3 12/20/22 12:15 37.8 C H 67 25 H 123/73 98 Nasal Cannula 3 12/20/22 12:00 37.9 C H 67 26 H 103/64 96 Nasal Cannula 3 12/20/22 11:46 38.0 C H 68 24 121/71 97 Nasal Cannula 3 12/20/22 11:30 38.0 C H 63 22 95/61 L 95 Nasal Cannula 3 12/20/22 11:15 37.9 C H 65 28 H 104/66 97 Nasal Cannula 3 12/20/22 11:00 38.0 C H 67 20 98/62 L 97 Nasal Cannula 3 12/20/22 10:47 38.1 C H 67 26 H 106/69 97 Nasal Cannula 3 12/20/22 10:33 38.1 C H 63 27 H 81/62 L 97 Nasal Cannula 3 12/20/22 10:30 38.1 C H 63 27 H 81/49 L 100 Nasal Cannula 3 12/20/22 10:29 38.1 C H 62 26 H 92/58 L 98 Nasal Cannula 3 PG Care Time/CCT Total # of Minutes Spent Total Time Spent with Patient: Total time spent is greater than 50% in coordination of care (as documented) at patient's floor/unit and/or counseling patient: Coding Level of Care Code 64942 SUB INP/OBS CARE 235MIN Diagnoses Shock R57.9 Ventricular tachycardia I47.20 Hypokalemia E87.6 Hypomagnesemia E83.42 Elevated troponin R79.89 Fall W19.XXXA GERD (gastroesophageal reflux disease) K21.9 S/P coronary artery stent placement Z95.5 Elevated creatine kinase R74.8 Noncompliance Z91.199
[2022-12-20 22:37] LABS: Partial Thromboplastin Ratio 2.3
[2022-12-20 22:40] LABS: Partial Thromboplastin Time 64.8 Seconds (21.0-31.0)
[2022-12-21] MEDS: UNASYN 3000MG / NS q6h IV SCH ×2 (00:28→06:01)
[2022-12-21] MEDS: POTASSIUM CHLORIDE / WTR 20 MEQ/100 ML PLCT IV SCH ×7 (00:53→13:14)
[2022-12-21] MEDS ORDERED: STAT IV/IM STA (04:39)
[2022-12-21 04:44] LABS: Basophils # (auto) 0.05 K/uL (0.00-0.20); Basophils % (auto) 0.2 %; Eosinophils # (auto) 0.26 K/uL (0.00-0.50); Eosinophils % (auto) 1.2 %; Hematocrit (blood only) 33.2 % (37.0-47.0); Hemoglobin 11.4 g/dl (12.0-16.0); Immature Granulocytes # (auto) 0.16 K/uL (0.01-0.20); Immature Granulocytes % (auto) 0.7 %; Lymphocytes # (auto) 3.12 K/uL (1.20-3.40); Lymphocytes % (auto) 14.2 %; Mean Corpuscular Hemoglobin 28.8 pg (25.0-34.0); Mean Corpuscular Hgb Conc 34.3 g/dL (32.0-36.0); Mean Corpuscular Volume 83.8 fL (80.0-100.0); Mean Platelet Volume 11.7 fL (9.4-12.4); Monocytes # (auto) 1.21 K/uL (0.11-0.59); Monocytes % (auto) 5.5 %; Neutrophils # (auto) 17.17 K/uL (1.40-6.50); Neutrophils % (auto) 78.2 %; Platelet Count 222 K/uL (130-400); RDW Standard Deviation 42.9 fL (36.4-46.3); Red Blood Count 3.96 M/uL (4.20-5.40); White Blood Count 21.97 K/ul (4.8-10.8)
[2022-12-21 04:51] LABS: Albumin Globulin Ratio 0.8 (0.9-2); Albumin Level 2.2 gm/dl (3.4-5.0); BUN Creatinine Ratio 7.1 (10-20); Bilirubin,Total 0.4 mg/dl (0.2-1.0); Calcium 6.2 mg/dl (8.6-10.3); Creatinine Clr Calc Pharmacy 62.7 ml/min; Est GFR (African American) 85.7 ml/min; Globulin 2.8 gm/dl (2.5-4.0); Magnesium 1.9 mg/dl (1.7-2.4); Phosphorus 3.6 mg/dl (2.5-4.9); Potassium 2.7 mmol/L (3.5-5.1); Troponin I High Sensitivity 754.8 pg/ml (0-14)
[2022-12-21] MEDS: CALCIUM GLUCONATE 10% 1,000 MG in SODIUM CHLOR 0.9% MINI-B 50 ML IV SCH ×2 (05:05→05:27)
[2022-12-21 05:23] LABS: Partial Thromboplastin Time 56.1 Seconds (21.0-31.0)
[2022-12-21] MEDS: POTASSIUM CHLORIDE CRTAB 20 MEQ TABCR PO SCH ×3 (06:05→20:32)
[2022-12-21] MEDS: NOREPINEPHRINE/D5W 4 MG/250 ML PLCT IV SCH ×2 (06:27→17:09)
[2022-12-21] MEDS: HEPARIN SODIUM/DEXTROSE 25,000 UNITS/500 ML BAG IV SCH (06:28)
[2022-12-21] MEDS: MAGNESIUM OXIDE 400 MG TAB PO SCH ×2 (07:29→20:32)
[2022-12-21] MEDS: PANTOprazole 40 MG TAB PO SCH (07:30)
[2022-12-21] MEDS: MULTIVITAMIN TAB PO SCH (07:30)
[2022-12-21] MEDS: INSULIN ASPART PER UNIT CHARGE SC SCH ×4 (08:07→20:12)
[2022-12-21] MEDS: LANTUS PER UNIT CHARGE SC SCH (08:08)
--- NOTE | 2022-12-21 08:44 | Critical Care Progress Note ---
Date of Service December 21, 2022 Assessment & Plan (1) Ventricular tachycardia: Plan: Reason Critically Ill: 62-year-old female presents to the ICU mechanically ventilated and on vasopressor support following episode of ventricular tachycardia where she became unresponsive with agonal breathing and required defibrillation and intubation. Patient currently undergoing treatment for severe electrolyte abnormalities with EKG changes and on amiodarone drip. Neuro - Delusional disorder/anxiety and depression -Patient does not appear to be on antipsychotics associated with hypokalemia Cardiac - Ventricular tachycardialikely due to severe electrolyte abnormalities -Reviewed cardiology notes, discontinuing heparin as this does not appear to be cardiac ischemia related Prolonged QTc -Discontinuing amiodarone as electrolytes appear to be improving and patient has remained in normal sinus rhythm Hypotensionweaning Levophed drip -Anticipate this will improve as electrolytes improve -1 L Plasma-Lyte bolus Respiratory - Tolerating room air GI - GERD Protonix p.o. as a home med Hypoalbuminemia: Suspect nutritional deficiencies -Multivitamin daily -Vitamin C daily -D3 daily -Folic acid daily -Consider supplemental iron pending laboratory results -Boost to increase protein intake RENAL/LYTES - Hypokalemia/hypomagnesemiaimproving. -Checking aldosterone and renin activity as patient does carry diagnosis of hypertension -Check iron B12 folate, reticulocyte count, history of anemia increased production could lead to hypokalemia -Certainly suspect nutritional component contributing -20 mEq potassium orally 3 times daily hypocalcemia - -Previously diagnosed vitamin D deficiency we will add vitamin D and additional calcium supplementation -Check parathyroid hormone for completeness -D3 supplementation -Given 2 g calcium gluconate this a.m. Rhabdomyolysisinitial CPK 848. No indication for treatment - Foleytransition to pure wick ENDO - Hyperglycemia: Insulin sliding scale Hypothyroidismcontinue Synthroid HEME - Anemia -Iron and folate, B12, reticulocyte count ordered DVT prophylaxis: Heparin infusion -Discontinuing heparin infusion transition to Lovenox DVT prophylaxis ID - No obvious source of infection, blood cultures negative, no oxygen requirement, discontinuing anti-infectives LINES/IV ACCESS - Right femoral CVC triple-lumen continue for aggressive potassium repletion and vasoactive medication support DVT PROPHYLAXIS - SCDs I have personally spent 40 minutes of critical care time in the direct management of this patient. This is a life/limb threatening event. This includes time spent evaluating patient, direct bedside care, chart review, placing orders, interpretation of diagnostic studies, discussion with consultants, patient, and family members, as well as other required patient management activities. This time is exclusive of all separately billable procedures, and teaching time and separate from and in addition to any other critical care service time. (2) Respiratory arrest before cardiac arrest: (3) Acute non-ST elevation myocardial infarction (NSTEMI): (4) Hypomagnesemia: (5) Hypokalemia: (6) Hypocalcemia: (7) Hyperglycemia due to type 2 diabetes mellitus: (8) Cigarette smoker: (9) GERD (gastroesophageal reflux disease): (10) Delusional disorder: (11) Hypothyroidism: (12) Fall: Admission and Anticipated Discharge Date Admission Date: December 19, 2022 Subjective Patient reports she feels a little bit better yesterday but still generally unwell Physical Exam Physical Exam: General: Alert. nontoxic. Skin: Warm, dry, Head: Atraumatic Ears, nose, mouth and throat: airway patent Cardiovascular: Normal peripheral perfusion Respiratory: no respiratory distress Gastrointestinal: Non distended Musculoskeletal: No deformity Results & Data Results & Data Vital Signs (Past 12 Hours) Vital Signs Temp Pulse Pulse Resp BP BP Pulse Ox 12/21/22 06:00 37.6 C H 67 18 98 12/21/22 06:00 105/61 12/21/22 05:30 97/60 L 12/21/22 05:30 37.6 C H 65 21 97 12/21/22 05:02 37.6 C H 72 22 97 12/21/22 05:02 99/55 L 12/21/22 05:01 78/64 L 12/21/22 05:01 37.6 C H 73 14 98 12/21/22 05:00 37.6 C H 73 20 99 12/21/22 04:31 37.6 C H 69 19 95 12/21/22 04:31 91/62 L 12/21/22 04:30 37.6 C H 67 22 96 12/21/22 04:00 37.6 C H 69 24 96 12/21/22 03:30 100/62 12/21/22 03:30 37.7 C H 70 25 H 96 12/21/22 03:00 95/56 L 12/21/22 03:00 37.8 C H 67 23 93 12/21/22 02:30 37.7 C H 67 24 92 12/21/22 02:30 95/59 L 12/21/22 02:00 37.7 C H 69 19 96 12/21/22 02:00 94/60 L 12/21/22 01:30 86/53 L 12/21/22 01:30 37.7 C H 69 25 H 95 12/21/22 01:00 95/52 L 12/21/22 01:00 37.7 C H 72 29 H 93 12/21/22 00:30 37.7 C H 73 24 96 12/21/22 00:30 99/58 L 12/21/22 00:00 69 12/21/22 00:00 97/62 L 12/21/22 00:00 37.7 C H 70 23 95 12/20/22 23:30 88/59 L 12/20/22 23:30 37.7 C H 70 24 96 12/20/22 23:00 37.7 C H 71 26 H 95 12/20/22 23:00 96/61 L 12/20/22 22:31 84/49 L 12/20/22 22:31 37.7 C H 71 24 92 12/20/22 22:30 37.7 C H 72 24 93 12/20/22 22:00 85/50 L 12/20/22 22:00 37.6 C H 71 26 H 92 12/20/22 21:30 37.5 C 73 24 92 12/20/22 21:30 105/63 12/20/22 21:00 37.5 C 70 20 98/57 L 91 12/20/22 21:00 37.5 C 70 30 H 91 12/20/22 21:00 98/57 L O2 Del Method O2 Flow Rate 12/21/22 06:00 12/21/22 06:00 12/21/22 05:30 12/21/22 05:30 12/21/22 05:02 12/21/22 05:02 12/21/22 05:01 12/21/22 05:01 12/21/22 05:00 12/21/22 04:31 12/21/22 04:31 12/21/22 04:30 12/21/22 04:00 12/21/22 03:30 12/21/22 03:30 12/21/22 03:00 12/21/22 03:00 12/21/22 02:30 12/21/22 02:30 12/21/22 02:00 12/21/22 02:00 12/21/22 01:30 12/21/22 01:30 12/21/22 01:00 12/21/22 01:00 12/21/22 00:30 12/21/22 00:30 12/21/22 00:00 12/21/22 00:00 12/21/22 00:00 12/20/22 23:30 12/20/22 23:30 12/20/22 23:00 12/20/22 23:00 12/20/22 22:31 12/20/22 22:31 12/20/22 22:30 12/20/22 22:00 12/20/22 22:00 12/20/22 21:30 12/20/22 21:30 12/20/22 21:00 Room Air 2 12/20/22 21:00 12/20/22 21:00 Critical Care Results & Data Vital Signs (Past 12 Hours) Vital Signs Temp Pulse Pulse Resp BP BP Pulse Ox 12/21/22 06:00 37.6 C H 67 18 98 12/21/22 06:00 105/61 12/21/22 05:30 97/60 L 12/21/22 05:30 37.6 C H 65 21 97 12/21/22 05:02 37.6 C H 72 22 97 12/21/22 05:02 99/55 L 12/21/22 05:01 78/64 L 12/21/22 05:01 37.6 C H 73 14 98 12/21/22 05:00 37.6 C H 73 20 99 12/21/22 04:31 37.6 C H 69 19 95 12/21/22 04:31 91/62 L 12/21/22 04:30 37.6 C H 67 22 96 12/21/22 04:00 37.6 C H 69 24 96 12/21/22 03:30 100/62 12/21/22 03:30 37.7 C H 70 25 H 96 12/21/22 03:00 95/56 L 12/21/22 03:00 37.8 C H 67 23 93 12/21/22 02:30 37.7 C H 67 24 92 12/21/22 02:30 95/59 L 12/21/22 02:00 37.7 C H 69 19 96 12/21/22 02:00 94/60 L 12/21/22 01:30 86/53 L 12/21/22 01:30 37.7 C H 69 25 H 95 12/21/22 01:00 95/52 L 12/21/22 01:00 37.7 C H 72 29 H 93 12/21/22 00:30 37.7 C H 73 24 96 12/21/22 00:30 99/58 L 12/21/22 00:00 69 12/21/22 00:00 97/62 L 12/21/22 00:00 37.7 C H 70 23 95 12/20/22 23:30 88/59 L 12/20/22 23:30 37.7 C H 70 24 96 12/20/22 23:00 37.7 C H 71 26 H 95 12/20/22 23:00 96/61 L 12/20/22 22:31 84/49 L 12/20/22 22:31 37.7 C H 71 24 92 12/20/22 22:30 37.7 C H 72 24 93 12/20/22 22:00 85/50 L 12/20/22 22:00 37.6 C H 71 26 H 92 12/20/22 21:30 37.5 C 73 24 92 12/20/22 21:30 105/63 12/20/22 21:00 37.5 C 70 20 98/57 L 91 12/20/22 21:00 37.5 C 70 30 H 91 12/20/22 21:00 98/57 L O2 Del Method O2 Flow Rate 12/21/22 06:00 12/21/22 06:00 12/21/22 05:30 12/21/22 05:30 12/21/22 05:02 12/21/22 05:02 12/21/22 05:01 12/21/22 05:01 12/21/22 05:00 12/21/22 04:31 12/21/22 04:31 12/21/22 04:30 12/21/22 04:00 12/21/22 03:30 12/21/22 03:30 12/21/22 03:00 12/21/22 03:00 12/21/22 02:30 12/21/22 02:30 12/21/22 02:00 12/21/22 02:00 12/21/22 01:30 12/21/22 01:30 12/21/22 01:00 12/21/22 01:00 12/21/22 00:30 12/21/22 00:30 12/21/22 00:00 12/21/22 00:00 12/21/22 00:00 12/20/22 23:30 12/20/22 23:30 12/20/22 23:00 12/20/22 23:00 12/20/22 22:31 12/20/22 22:31 12/20/22 22:30 12/20/22 22:00 12/20/22 22:00 12/20/22 21:30 12/20/22 21:30 12/20/22 21:00 Room Air 2 12/20/22 21:00 12/20/22 21:00 Lab & Micro Results (Past 24 Hours) RBC 3.96 M/uL (4.20-5.40) L 12/21/22 WBC 21.97 K/ul (4.8-10.8) H 12/21/22 Hgb 11.4 g/dl (12.0-16.0) L 12/21/22 Hct 33.2 % (37.0-47.0) L 12/21/22 MCV 83.8 fL (80.0-100.0) 12/21/22 MCH 28.8 pg (25.0-34.0) 12/21/22 MCHC 34.3 g/dL (32.0-36.0) 12/21/22 RDW Standard Deviation 42.9 fL (36.4-46.3) 12/21/22 RDW Coefficient of Variation 14.0 % (11.5-14.5) 12/21/22 Plt Count 222 K/uL (130-400) 12/21/22 MPV 11.7 fL (9.4-12.4) 12/21/22 Neutrophils (%) (Auto) 78.2 % 12/21/22 Lymphocytes (%) (Auto) 14.2 % 12/21/22 Monocytes # (Auto) 1.21 K/uL (0.11-0.59) H 12/21/22 Eosinophils # (Auto) 0.26 K/uL (0.00-0.50) 12/21/22 Immature Granulocyte % (Auto) 0.7 % 12/21/22 Neutrophils # (Auto) 17.17 K/uL (1.40-6.50) H 12/21/22 Lymphocytes # (Auto) 3.12 K/uL (1.20-3.40) 12/21/22 Monocytes # (Auto) 1.21 K/uL (0.11-0.59) H 12/21/22 Eosinophils # (Auto) 0.26 K/uL (0.00-0.50) 12/21/22 Basophils # (Auto) 0.05 K/uL (0.00-0.20) 12/21/22 Immature Granulocyte # (Auto) 0.16 K/uL (0.01-0.20) 3 Na 137 mmol/L (136-145) 12/21/22 K 2.7 mmol/L (3.5-5.1) L 12/21/22 Cl 100 mmol/L (98-107) 12/21/22 CO2 28 mmol/L (21-32) 12/21/22 Anion Gap 9 (3-11) 12/21/22 BUN 6 mg/dl (6-23) 12/21/22 Creatinine 0.84 mg/dl (0.6-1.2) 12/21/22 Estimated GFR ( Amer) 85.7 ml/min 12/21/22 Estimated GFR (Non-Af Amer) 74.0 ml/min 12/21/22 BUN/Creatinine Ratio 7.1 (10-20) L 12/21/22 Glu 235 mg/dl (70-99(Fasting)) H 12/21/22 Ca 6.2 mg/dl (8.6-10.3) L 12/21/22 Phosphorus Level 3.6 mg/dl (2.5-4.9) 12/21/22 Total Bilirubin 0.4 mg/dl (0.2-1.0) 12/21/22 AST 18 U/L (13-39) 12/21/22 ALT 14 U/L (7-52) 12/21/22 Alkaline Phosphatase 118 U/L (34-104) H 12/21/22 TP 5.0 gm/dl (6.0-8.3) L 12/21/22 Albumin 2.2 gm/dl (3.4-5.0) L 12/21/22 Globulin 2.8 gm/dl (2.5-4.0) 12/21/22 Albumin/Globulin Ratio 0.8 (0.9-2) L 12/21/22 Mg 1.9 mg/dl (1.7-2.4) 12/21/22 03:54 Calcium Level 6.2 mg/dl (8.6-10.3) L 12/21/22 03:54 Ionized Calcium 0.85 mmol/L (1.12-1.32) L 12/21/22 03:54 Microbiology 12/19/22 17:59 Aerobic Blood Culture - Preliminary Blood No growth in Aerobic bottle after 24 hours. Anaerobic Blood Culture - Final 12/19/22 17:45 Aerobic Blood Culture - Preliminary Blood No growth in Aerobic bottle after 24 hours. Anaerobic Blood Culture - Preliminary No growth in Anaerobic bottle after 24 hours. I & O Totals 24 Hours 12/20/22 12/21/22 12/22/22 06:59 06:59 05:59 Intake Total 4993.368 / 4993.368 5112.738 / 5212.738 153.333 / 153.333 Output Total 2620 / 2620 1175 / 1175 Balance 2373.368 / 2373.368 3937.738 / 4037.738 153.333 / 153.333 Cumulative 12/19/22 17:16 thru 12/21/22 08:09 Intake Total 74321.439 Output Total 3795 Balance 6464.439 RT Ventilator Mngmt (Last Documented) Ventilator Ordered Settings Ventilator Support Mode CPAP 12/20/22 08:00 Respiratory Rate 18 12/21/22 06:00 Ventilator Tidal Volume 360 12/20/22 04:00 Setting Minute Ventilation 8 12/20/22 07:12 Positive End Expiratory 5 12/20/22 08:00 Pressure Fraction of Inspired Oxygen 40 12/20/22 09:00 Ventilator - PT Measurements Respiratory Rate 18 Exhaled Tidal Volume 301 Minute Ventilation 8 Peak Inspiratory Airway 26 Pressure Plateau Pressure 19 Respiratory Cycle Inspiratory: 1:2.3 Expiratory Ratio Inspiratory Phase Time 0.9 End-Tidal CO2 29 Static Lung Compliance 21.50 Dynamic Lung Compliance 22.32 Normal Static Lung Compliance 46.00 Coding Level of Care Code 78078 CRITICAL CARE 1ST 30-74M Diagnoses Ventricular tachycardia I47.20 Respiratory arrest before cardiac arrest I46.9; R09.2 Acute non-ST elevation myocardial infarction (NSTEMI) I21.4 Hypomagnesemia E83.42 Hypokalemia E87.6 Hypocalcemia E83.51 Type 2 diabetes mellitus with hyperglycemia, without long-term current use of insulin E11.65 Diabetes mellitus retirement insulin use: without industrial fabric cutter use Cigarette smoker F17.210 GERD (gastroesophageal reflux disease) K21.9 Delusional disorder F22 Hypothyroidism, unspecified type E03.9 Hypothyroidism type: unspecified Fall W19.XXXA Encounter type: initial encounter (7) Hyperglycemia due to type 2 diabetes mellitus Diabetes mellitus industrial fabric cutter insulin use: without retirement use Qualified Code(s): E11.65 - Type 2 diabetes mellitus with hyperglycemia (11) Hypothyroidism Hypothyroidism type: unspecified Qualified Code(s): E03.9 - Hypothyroidism, unspecified (12) Fall Encounter type: initial encounter Qualified Code(s): W19.XXXA - Unspecified fall, initial encounter
[2022-12-21] MEDS ORDERED: ERGOCALCIFEROL 50,000 UNITS 1250 MCG CAP PO SCH (09:15)
[2022-12-21] MEDS ORDERED: PLASMA-LYTE A 1,000 ML IV ONE (09:19)
[2022-12-21] MEDS: ACETAMINOPHEN 325 MG TAB PO PRN ×2 (09:22→22:57)
[2022-12-21 09:37] LABS: Reticulocyte % 2.7 % (0.5-2.0); Reticulocytes # 0.11 10^6/uL (0.02-0.10)
[2022-12-21] MEDS: ASCORBIC ACID 500 MG TAB PO SCH (09:58)
[2022-12-21] MEDS: FOLIC ACID 1 MG TAB PO SCH (09:58)
[2022-12-21] MEDS: CHOLECALCIFEROL 1,000 UNITS 25 MCG TAB PO SCH (09:58)
--- NOTE | 2022-12-21 10:10 | Hospitalist Progress Note ---
Date of Service December 21, 2022 Assessment & Plan (1) Shock: Plan: Started on Levophed in the ER, cardiogenic, no source of infection to suspect septic Deferred ongoing treatment to ICU Appears cardiac arrest was due to electrolyte abnormalities: hypokalemia specifi giovanny Potassium at 1.5 on admission being replaced. Continues on vasopressor support (2) Ventricular tachycardia: Plan: Continue if IV amiodarone Consult cardiology - ER physician discussed with Dr Valentin and not for cardiac medical laboratory technical officer at this time - replace electrolytes first Aim K > 4, Mg > 2, KCL 20 meq IV added once central line inserted to be given over the next hour, avoid insulin until potassium replaced Appreciate ICU ongoing management of this TTE completed. Off heparin and amio as thought is that this was mainly due to hypokalemia. (3) Hypokalemia: Plan: As above - will need ongoing replacement in ICU K 1.5 on arrival to the ER Suspect secondary to gastroparesis as this has been a recurrent problem in the past although never quite this low. (4) Hypomagnesemia: Plan: Mg level 1.1 in ER s/p Mg sulfate 1g bolus then 1g IV Further replacement per ICU (5) Elevated troponin: Plan: Unclear if demand vs. NSTEMI Given non-compliance with medication and known CAD she is high risk for NSTEMI although no chest pain noted by patient per ER prior to VT Trend troponin overnight. Consult cardiology - ICU discussed with Dr Valentin and alba for heparin at this time TTE (6) Fall: Plan: Possible fall on left side and struck her face. No injuries on CT head, cervical spine, chest/abdo/pelvis Suspect weakness due to electrolytes imbalance (7) GERD (gastroesophageal reflux disease): Plan: Switch famotidine and pantoprazole to IV (8) S/P coronary artery stent placement: Plan: 2 CHANTAL to LAD 10/22/2020 Continue ASA, Brillinta, atorvastatin once able from ICU perspective Not on BB due to bradycardia (9) Elevated creatine kinase: Plan: Suspect due to elevated troponin rather than rhabdo, continue to trend (10) Noncompliance: Plan VTE Prophyalxis - heparin drip Diet - NPO Disposition - admit to ICU Admission and Anticipated Discharge Date Admission Date: December 19, 2022 Subjective Patient reports feeling slightly better. Review of Systems Review of Systems: All systems reviewed & are unremarkable except as noted in HPI & below Physical Exam Physical Exam: Constitutional: well developed; no acute distress Eyes: PERRL, conjunctivae normal, anicteric sclerae Respiratory: normal respiratory effort; no respiratory distress Auscultation: breath sounds present, no diminished lung sounds and no wheezes Intubated and sedated Cardiovascular: Rate/Rhythm: regular rate and regular rhythm Heart Sounds: no murmur Extremities: + pedal edema; Gastrointestinal (Abdomen): Inspection/Auscultation: abdomen normal to inspection; abdomen not distended Percussion/Palpation: abdomen soft; abdomen nontender Skin: no rashes, warm and dry (no areas of cellulitis noted) Results & Data Results & Data Vital Signs (Past 12 Hours) Vital Signs Temp Pulse Resp BP Pulse Ox O2 Del Method O2 Flow Rate 12/21/22 08:50 Nasal Cannula 2 12/21/22 08:00 37.6 C H 77 21 97 12/21/22 08:00 77 12/21/22 07:50 127/66 12/21/22 07:30 37.5 C 70 25 H 97 12/21/22 07:01 101/60 12/21/22 06:00 37.6 C H 67 18 98 12/21/22 06:00 105/61 12/21/22 05:30 97/60 L 12/21/22 05:30 37.6 C H 65 21 97 12/21/22 05:02 37.6 C H 72 22 97 12/21/22 05:02 99/55 L 12/21/22 05:01 78/64 L 12/21/22 05:01 37.6 C H 73 14 98 12/21/22 05:00 37.6 C H 73 20 99 12/21/22 04:31 37.6 C H 69 19 95 12/21/22 04:31 91/62 L 12/21/22 04:30 37.6 C H 67 22 96 12/21/22 04:00 37.6 C H 69 24 96 12/21/22 03:30 100/62 12/21/22 03:30 37.7 C H 70 25 H 96 12/21/22 03:00 95/56 L 12/21/22 03:00 37.8 C H 67 23 93 11/04/23 02:30 37.7 C H 67 24 92 12/21/22 02:30 95/59 L 12/21/22 02:00 37.7 C H 69 19 96 12/21/22 02:00 94/60 L 12/21/22 01:30 86/53 L 12/21/22 01:30 37.7 C H 69 25 H 95 12/21/22 01:00 95/52 L 12/21/22 01:00 37.7 C H 72 29 H 93 12/21/22 00:30 37.7 C H 73 24 96 12/21/22 00:30 99/58 L 12/21/22 00:00 69 12/21/22 00:00 97/62 L 12/21/22 00:00 37.7 C H 70 23 95 12/20/22 23:30 88/59 L 12/20/22 23:30 37.7 C H 70 24 96 12/20/22 23:00 37.7 C H 71 26 H 95 12/20/22 23:00 96/61 L 12/20/22 22:31 84/49 L 12/20/22 22:31 37.7 C H 71 24 92 12/20/22 22:30 37.7 C H 72 24 93 PG Care Time/CCT Total # of Minutes Spent Total Time Spent with Patient: Total time spent is greater than 50% in coordination of care (as documented) at patient's floor/unit and/or counseling patient: Coding Level of Care Code 53215 SUB INP/OBS CARE 3/50MIN Diagnoses Shock R57.9 Ventricular tachycardia I47.20 Hypokalemia E87.6 Hypomagnesemia E83.42 Elevated troponin R79.89 Fall W19.XXXA GERD (gastroesophageal reflux disease) K21.9 S/P coronary artery stent placement Z95.5 Elevated creatine kinase R74.8 Noncompliance Z91.199
[2022-12-21 10:17] LABS: Ferritin 73.1 ng/ml (8-388)
[2022-12-21 16:43] LABS: Calcium 6.4 mg/dl (8.6-10.3); Creatinine Clr Calc Pharmacy 70.3 ml/min; Est GFR (African American) 98.3 ml/min; Est GFR (Non-African American) 84.8 ml/min; Magnesium 1.8 mg/dl (1.7-2.4); Phosphorus 2.3 mg/dl (2.5-4.9); Potassium 3.9 mmol/L (3.5-5.1)
[2022-12-21 22:20] LABS: BUN Creatinine Ratio 8.2 (10-20); Calcium 6.5 mg/dl (8.6-10.3); Creatinine Clr Calc Pharmacy 72.2 ml/min; Est GFR (African American) 101.6 ml/min; Est GFR (Non-African American) 87.7 ml/min; Potassium 3.7 mmol/L (3.5-5.1)
[2022-12-22] MEDS: MELATONIN 3 MG TAB PO PRN (00:03)
[2022-12-22] MEDS: NOREPINEPHRINE/D5W 4 MG/250 ML PLCT IV SCH (01:10)
[2022-12-22 04:21] LABS: Basophils # (auto) 0.02 K/uL (0.00-0.20); Basophils % (auto) 0.2 %; Hematocrit (blood only) 29.4 % (37.0-47.0); Immature Granulocytes # (auto) 0.07 K/uL (0.01-0.20); Immature Granulocytes % (auto) 0.7 %; Lymphocytes % (auto) 22.5 %; Mean Corpuscular Volume 85.2 fL (80.0-100.0); Mean Platelet Volume 12.1 fL (9.4-12.4); Monocytes % (auto) 5.9 %; Neutrophils # (auto) 7.02 K/uL (1.40-6.50); Neutrophils % (auto) 68.7 %; Platelet Count 150 K/uL (130-400); RDW Coefficient of Variation 15.2 % (11.5-14.5); RDW Standard Deviation 47.1 fL (36.4-46.3); Red Blood Count 3.45 M/uL (4.20-5.40); White Blood Count 10.21 K/ul (4.8-10.8)
[2022-12-22 04:37] LABS: Albumin Globulin Ratio 0.7 (0.9-2); BUN Creatinine Ratio 7.4 (10-20); Bilirubin,Total 0.4 mg/dl (0.2-1.0); Calcium 6.6 mg/dl (8.6-10.3); Creatinine Clr Calc Pharmacy 77.5 ml/min; Est GFR (African American) 107.9 ml/min; Est GFR (Non-African American) 93.1 ml/min; Globulin 2.7 gm/dl (2.5-4.0); Magnesium 1.7 mg/dl (1.7-2.4); Phosphorus 2.6 mg/dl (2.5-4.9); Potassium 3.9 mmol/L (3.5-5.1); Total Protein 4.7 gm/dl (6.0-8.3)
[2022-12-22 04:47] LABS: Partial Thromboplastin Time 28.5 Seconds (21.0-31.0)
[2022-12-22] MEDS: POTASSIUM CHLORIDE CRTAB 20 MEQ TABCR PO SCH ×3 (05:37→20:22)
[2022-12-22] MEDS: LEVOTHYROXINE SODIUM 88 MCG TABLET PO SCH (05:37)
[2022-12-22] MEDS ORDERED: STAT IV/IM STA (05:38)
[2022-12-22] MEDS ORDERED: CALCIUM GLUCONATE 10% 1,000 MG in SODIUM CHLOR 0.9% MINI-B 50 ML IV ONE (05:45)
[2022-12-22] MEDS: MAGNESIUM SULFATE / D5W 1 GM/100 ML BAG IV SCH ×2 (05:56→07:56)
--- NOTE | 2022-12-22 07:45 | Critical Care Progress Note ---
Date of Service December 22, 2022 Assessment & Plan (1) Ventricular tachycardia: Plan: Neuro - Delusional disorder/anxiety and depression -Patient does not appear to be on antipsychotics associated with hypokalemia Cardiac - Ventricular tachycardialikely due to severe electrolyte abnormalities Prolonged QTc -Amiodarone initiated in emergency department discontinued amiodarone 12/21 Hypotensionresolved Respiratory - Tolerating room air GI - GERD Protonix p.o. as a home med Hypoalbuminemia: Suspect nutritional deficiencies -Multivitamin daily -Vitamin C daily -D3 daily -Folic acid daily -Boost to increase protein intake RENAL/LYTES - Hypokalemia/hypomagnesemiaimproved. -Checking aldosterone and renin activity as patient does carry diagnosis of hypertension -Certainly suspect nutritional component contributing -20 mEq potassium orally 3 times daily hypocalcemia -ongoing -Previously diagnosed vitamin D deficiency we will add vitamin D and additional calcium supplementation -D3 supplementation Rhabdomyolysisinitial CPK 848. No indication for treatment - Foleytransition to pure wick ENDO - Hyperglycemia: Insulin sliding scale Hypothyroidismcontinue Synthroid HEME - Anemia -Iron and folate, B12, reticulocyte count ordered DVT prophylaxis: Lovenox DVT ID - No obvious source of infection, blood cultures negative, no oxygen requirement, discontinuing anti-infectives LINES/IV ACCESS - Right femoral CVC triple-lumen: Discontinue Disposition: PT OT consults increase activity out of bed Stable for downgrade out of ICU (2) Respiratory arrest before cardiac arrest: (3) Acute non-ST elevation myocardial infarction (NSTEMI): (4) Hypomagnesemia: (5) Hypokalemia: (6) Hypocalcemia: (7) Hyperglycemia due to type 2 diabetes mellitus: (8) Cigarette smoker: (9) GERD (gastroesophageal reflux disease): (10) Delusional disorder: (11) Hypothyroidism: (12) Fall: Admission and Anticipated Discharge Date Admission Date: December 19, 2022 Subjective Resting comfortably Results & Data Results & Data Vital Signs (Past 12 Hours) Vital Signs Temp Pulse Pulse Resp BP BP BP 12/22/22 07:00 36.9 C 72 18 97/64 L 12/22/22 04:03 37.1 C 69 20 104/87 12/22/22 04:02 37.1 C 72 21 104/57 L 12/22/22 04:02 104/57 L 12/22/22 04:00 37.1 C 71 18 12/22/22 03:02 67 25 H 93/55 L 12/22/22 03:00 37.3 C 64 20 93/55 L 12/22/22 03:00 93/55 L 12/22/22 02:00 86/57 L 12/22/22 02:00 37.3 C 66 23 86/57 L 12/22/22 01:43 EST 37.4 C 71 28 H 12/22/22 01:43 EST 99/60 L 12/22/22 01:30 EST 37.6 C H 75 19 12/22/22 01:01 EST 107/47 L 12/22/22 01:01 EST 37.6 C H 73 21 12/22/22 01:00 EST 37.7 C H 70 23 107/47 L 12/22/22 00:30 37.7 C H 78 23 12/22/22 00:09 94/50 L 12/22/22 00:09 37.7 C H 76 20 12/22/22 00:00 37.7 C H 78 22 94/50 L 12/21/22 23:51 78 12/21/22 23:30 37.6 C H 77 19 12/21/22 23:25 37.6 C H 76 26 H 12/21/22 23:25 102/57 L 12/21/22 23:00 37.5 C 77 23 102/57 L 12/21/22 22:30 37.5 C 79 28 H 12/21/22 22:00 105/64 12/21/22 22:00 37.4 C 79 21 105/64 12/21/22 21:30 37.4 C 76 22 12/21/22 21:00 108/77 12/21/22 21:00 37.4 C 80 18 108/77 Pulse Ox O2 Del Method 12/22/22 07:00 92 Room Air 12/22/22 04:03 93 Room Air 12/22/22 04:02 93 12/22/22 04:02 12/22/22 04:00 92 12/22/22 03:02 89 L Room Air 12/22/22 03:00 91 12/22/22 03:00 12/22/22 02:00 12/22/22 02:00 12/22/22 01:43 EST 95 12/22/22 01:43 EST 12/22/22 01:30 EST 93 12/22/22 01:01 EST 12/22/22 01:01 EST 94 12/22/22 01:00 EST 90 12/22/22 00:30 96 12/22/22 00:09 12/22/22 00:09 93 12/22/22 00:00 95 12/21/22 23:51 12/21/22 23:30 96 12/21/22 23:25 91 12/21/22 23:25 12/21/22 23:00 90 12/21/22 22:30 95 12/21/22 22:00 12/21/22 22:00 89 L 12/21/22 21:30 89 L 12/21/22 21:00 12/21/22 21:00 82 L Critical Care Results & Data Vital Signs (Past 12 Hours) Vital Signs Temp Pulse Pulse Resp BP BP BP 12/22/22 07:00 36.9 C 72 18 97/64 L 12/22/22 04:03 37.1 C 69 20 104/87 12/22/22 04:02 37.1 C 72 21 104/57 L 12/22/22 04:02 104/57 L 12/22/22 04:00 37.1 C 71 18 12/22/22 03:02 67 25 H 93/55 L 12/22/22 03:00 37.3 C 64 20 93/55 L 12/22/22 03:00 93/55 L 12/22/22 02:00 86/57 L 12/22/22 02:00 37.3 C 66 23 86/57 L 12/22/22 01:43 EST 37.4 C 71 28 H 12/22/22 01:43 EST 99/60 L 12/22/22 01:30 EST 37.6 C H 75 19 12/22/22 01:01 EST 107/47 L 12/22/22 01:01 EST 37.6 C H 73 21 12/22/22 01:00 EST 37.7 C H 70 23 107/47 L 12/22/22 00:30 37.7 C H 78 23 12/22/22 00:09 94/50 L 12/22/22 00:09 37.7 C H 76 20 12/22/22 00:00 37.7 C H 78 22 94/50 L 12/21/22 23:51 78 12/21/22 23:30 37.6 C H 77 19 12/21/22 23:25 37.6 C H 76 26 H 12/21/22 23:25 102/57 L 12/21/22 23:00 37.5 C 77 23 102/57 L 12/21/22 22:30 37.5 C 79 28 H 12/21/22 22:00 105/64 12/21/22 22:00 37.4 C 79 21 105/64 12/21/22 21:30 37.4 C 76 22 12/21/22 21:00 108/77 12/21/22 21:00 37.4 C 80 18 108/77 Pulse Ox O2 Del Method 12/22/22 07:00 92 Room Air 12/22/22 04:03 93 Room Air 12/22/22 04:02 93 12/22/22 04:02 12/22/22 04:00 92 12/22/22 03:02 89 L Room Air 12/22/22 03:00 91 12/22/22 03:00 12/22/22 02:00 12/22/22 02:00 12/22/22 01:43 EST 95 12/22/22 01:43 EST 12/22/22 01:30 EST 93 12/22/22 01:01 EST 12/22/22 01:01 EST 94 12/22/22 01:00 EST 90 12/22/22 00:30 96 12/22/22 00:09 12/22/22 00:09 93 12/22/22 00:00 95 12/21/22 23:51 12/21/22 23:30 96 12/21/22 23:25 91 12/21/22 23:25 12/21/22 23:00 90 12/21/22 22:30 95 12/21/22 22:00 12/21/22 22:00 89 L 12/21/22 21:30 89 L 12/21/22 21:00 12/21/22 21:00 82 L Lab & Micro Results (Past 24 Hours) RBC 3.45 M/uL (4.20-5.40) L 12/22/22 WBC 10.21 K/ul (4.8-10.8) 12/22/22 Hgb 10.0 g/dl (12.0-16.0) L 12/22/22 Hct 29.4 % (37.0-47.0) L 12/22/22 MCV 85.2 fL (80.0-100.0) 12/22/22 MCH 29.0 pg (25.0-34.0) 12/22/22 MCHC 34.0 g/dL (32.0-36.0) 12/22/22 RDW Standard Deviation 47.1 fL (36.4-46.3) H 12/22/22 RDW Coefficient of Variation 15.2 % (11.5-14.5) H 12/22/22 Plt Count 150 K/uL (130-400) 12/22/22 MPV 12.1 fL (9.4-12.4) 12/22/22 Neutrophils (%) (Auto) 68.7 % 12/22/22 Lymphocytes (%) (Auto) 22.5 % 12/22/22 Monocytes # (Auto) 0.60 K/uL (0.11-0.59) H 12/22/22 Eosinophils # (Auto) 0.20 K/uL (0.00-0.50) 12/22/22 Immature Granulocyte % (Auto) 0.7 % 12/22/22 Neutrophils # (Auto) 7.02 K/uL (1.40-6.50) H 12/22/22 Lymphocytes # (Auto) 2.30 K/uL (1.20-3.40) 12/22/22 Monocytes # (Auto) 0.60 K/uL (0.11-0.59) H 12/22/22 Eosinophils # (Auto) 0.20 K/uL (0.00-0.50) 12/22/22 Basophils # (Auto) 0.02 K/uL (0.00-0.20) 12/22/22 Immature Granulocyte # (Auto) 0.07 K/uL (0.01-0.20) 3 Na 133 mmol/L (136-145) L 12/22/22 K 3.9 mmol/L (3.5-5.1) 12/22/22 Cl 100 mmol/L (98-107) 12/22/22 CO2 29 mmol/L (21-32) 12/22/22 Anion Gap 4 (3-11) 12/22/22 BUN 5 mg/dl (6-23) L 12/22/22 Creatinine 0.68 mg/dl (0.6-1.2) 12/22/22 Estimated GFR ( Amer) 107.9 ml/min 12/22/22 Estimated GFR (Non-Af Amer) 93.1 ml/min 12/22/22 BUN/Creatinine Ratio 7.4 (10-20) L 12/22/22 Glu 104 mg/dl (70-99(Fasting)) H 12/22/22 Ca 6.6 mg/dl (8.6-10.3) L 12/22/22 Phosphorus Level 2.6 mg/dl (2.5-4.9) 12/22/22 Total Bilirubin 0.4 mg/dl (0.2-1.0) 12/22/22 AST 19 U/L (13-39) 12/22/22 ALT 15 U/L (7-52) 12/22/22 Alkaline Phosphatase 104 U/L (34-104) 12/22/22 TP 4.7 gm/dl (6.0-8.3) L 12/22/22 Albumin 2.0 gm/dl (3.4-5.0) L 12/22/22 Globulin 2.7 gm/dl (2.5-4.0) 12/22/22 Albumin/Globulin Ratio 0.7 (0.9-2) L 12/22/22 Mg 1.7 mg/dl (1.7-2.4) 12/22/22 03:38 Calcium Level 6.6 mg/dl (8.6-10.3) L 12/22/22 03:38 Ionized Calcium 0.99 mmol/L (1.12-1.32) L 12/22/22 03:38 Microbiology 12/19/22 17:59 Aerobic Blood Culture - Preliminary Blood No growth in Aerobic bottle after 48 hours. Anaerobic Blood Culture - Final 12/19/22 17:45 Aerobic Blood Culture - Preliminary Blood No growth in Aerobic bottle after 48 hours. Anaerobic Blood Culture - Preliminary No growth in Anaerobic bottle after 48 hours. I & O Totals 24 Hours 12/21/22 12/22/22 12/23/22 07:59 06:59 06:59 Intake Total Output Total Balance Cumulative 12/19/22 17:16 thru 12/22/22 06:11 Intake Total 92134.617 Output Total 7249 Balance 5223.617 RT Ventilator Mngmt (Last Documented) Ventilator Ordered Settings Ventilator Support Mode CPAP 12/20/22 08:00 Respiratory Rate 18 12/22/22 07:00 Ventilator Tidal Volume 360 12/20/22 04:00 Setting Minute Ventilation 8 12/20/22 07:12 Positive End Expiratory 5 12/20/22 08:00 Pressure Fraction of Inspired Oxygen 40 12/20/22 09:00 Ventilator - PT Measurements Respiratory Rate 18 Exhaled Tidal Volume 301 Minute Ventilation 8 Peak Inspiratory Airway 26 Pressure Plateau Pressure 19 Respiratory Cycle Inspiratory: 1:2.3 Expiratory Ratio Inspiratory Phase Time 0.9 End-Tidal CO2 29 Static Lung Compliance 21.50 Dynamic Lung Compliance 22.32 Normal Static Lung Compliance 46.00 Coding Level of Care Code 15230 SUB INP/OBS CARE 3/50MIN Diagnoses Ventricular tachycardia I47.20 Respiratory arrest before cardiac arrest I46.9; R09.2 Acute non-ST elevation myocardial infarction (NSTEMI) I21.4 Hypomagnesemia E83.42 Hypokalemia E87.6 Hypocalcemia E83.51 Type 2 diabetes mellitus with hyperglycemia, without long-term current use of insulin E11.65 Diabetes mellitus rat exterminator insulin use: without rat exterminator use Cigarette smoker F17.210 GERD (gastroesophageal reflux disease) K21.9 Delusional disorder F22 Hypothyroidism, unspecified type E03.9 Hypothyroidism type: unspecified Fall W19.XXXA Encounter type: initial encounter (7) Hyperglycemia due to type 2 diabetes mellitus Diabetes mellitus halfway insulin use: without rat exterminator use Qualified Code(s): E11.65 - Type 2 diabetes mellitus with hyperglycemia (11) Hypothyroidism Hypothyroidism type: unspecified Qualified Code(s): E03.9 - Hypothyroidism, unspecified (12) Fall Encounter type: initial encounter Qualified Code(s): W19.XXXA - Unspecified fall, initial encounter
[2022-12-22] MEDS: INSULIN ASPART PER UNIT CHARGE SC SCH ×4 (08:01→20:25)
[2022-12-22] MEDS: LANTUS PER UNIT CHARGE SC SCH (08:01)
[2022-12-22] MEDS: ASCORBIC ACID 500 MG TAB PO SCH (09:53)
[2022-12-22] MEDS: MAGNESIUM OXIDE 400 MG TAB PO SCH ×2 (09:54→20:22)
[2022-12-22] MEDS: CHOLECALCIFEROL 1,000 UNITS 25 MCG TAB PO SCH (09:54)
[2022-12-22] MEDS: FOLIC ACID 1 MG TAB PO SCH (09:54)
[2022-12-22] MEDS: MULTIVITAMIN TAB PO SCH (09:55)
[2022-12-22] MEDS: PANTOprazole 40 MG TAB PO SCH (09:55)
--- NOTE | 2022-12-22 11:36 | Hospitalist Progress Note ---
Date of Service December 22, 2022 Assessment & Plan (1) Shock: Plan: Started on Levophed in the ER, cardiogenic, no source of infection to suspect septic Now weaned off Levophed and blood pressures are normal Appears cardiac arrest was due to electrolyte abnormalities: hypokalemia specifically Potassium at 1.5 on admission Echocardiogram with preserved EF and no wall motion abnormalities Downgrade out of ICU (2) Ventricular tachycardia: Plan: With episode of ventricular tachycardia in the ER thought to be secondary to hypokalemia Initially was defibrillated and placed on IV amiodarone, electrolytes replaced Cardiology was curb sided and did not recommend cardiac catheterization upfront due to cause of cardiac arrest likely being from hypokalemia Echocardiogram preserved EF ECGs improving but did show signs of severe hypokalemia and prolonged QT Keep electrolytes replete Consult cardiology Continue to monitor on telemetry Continue to hold home fluvoxamine given prolonged QT (3) Hypokalemia: Plan: K 1.5 on arrival to the ER Suspect secondary to gastroparesis and vomiting as this has been a recurrent problem in the past although never quite this low Potassium was replaced and is now normalized Continue potassium chloride 20 mill equivalents p.o. 3 times daily Follow BMP and magnesium Renin/aldosterone levels checked and pending (4) Hypomagnesemia: Plan: Mg level 1.1 on admission was replaced Now normalized (5) Elevated troponin: Plan: Unclear if demand vs. NSTEMI. Troponin peaked at 1907 and back down Likely from demand ischemia from V. tach arrest and defibrillation Echocardiogram without wall motion abnormalities Restart home aspirin and Brilinta, atorvastatin (6) Fall: Plan: Possible fall on left side and struck her face. No injuries on CT head, cervical spine, chest/abdo/pelvis Suspect weakness due to electrolytes imbalance PT/OT consults in place (7) GERD (gastroesophageal reflux disease): Plan: Restart home famotidine and Protonix (8) S/P coronary artery stent placement: Plan: 2 CHANTAL to LAD 10/22/2020 We will now restart home ASA, Brilinta, atorvastatin Not on BB due to previous bradycardia (9) Elevated creatine kinase: Plan: Suspect due to elevated troponin rather than rhabdo, trended downward to 593 (10) Hypothyroidism: Plan: TSH normal at 0.572 in 08/2022 Continue home levothyroxine (11) Hypocalcemia: Plan: Replace with calcium gluconate IV Follow level in the morning Replace vitamin D Check vitamin D level in the morning Intact PTH elevated at 325-could be response to hypocalcemia (12) Diabetes mellitus type 2 in obese: Plan: Continue NovoLog and Lantus Uncontrolled, last hemoglobin A1c 10.2% 08/2022 Check hemoglobin A1c in the morning Plan VTE Prophyalxis -Lovenox SQ Disposition -downgrade to PCU. PT/OT consults placed to see if needs rehab Discussed care with wiring inspector Admission and Anticipated Discharge Date Admission Date: December 19, 2022 Subjective Patient reports feeling tired. No chest pain or shortness of breath. Telemetry reviewed and with normal sinus rhythm and normal rates, no further V. tach. Weaned off Levophed, central line removed from right femoral site, Carney catheter removed and patient urinated on bedpan right before I saw her. Physical Exam Constitutional: WD/WN, vitals as above Respiratory: normal respiratory effort, lungs clear to auscultation + cough Cardiovascular: Rate/Rhythm: regular rate and regular rhythm Heart Sounds: no murmur Extremities: + edema (Trace pitting edema) Small amount of oozing blood from right femoral catheter site Gastrointestinal (Abdomen): normal bowel sounds, soft, nontender, no hepatosplenomegaly Psychiatric: A+Ox3, euthymic affect Results & Data Results & Data Vital Signs (Past 12 Hours) Vital Signs Temp Pulse Pulse Resp BP BP BP 12/22/22 07:30 12/22/22 07:00 36.9 C 72 18 97/64 L 12/22/22 04:03 37.1 C 69 20 104/87 12/22/22 04:02 37.1 C 72 21 104/57 L 12/22/22 04:02 104/57 L 12/22/22 04:00 37.1 C 71 18 12/22/22 03:02 67 25 H 93/55 L 12/22/22 03:00 37.3 C 64 20 93/55 L 12/22/22 03:00 93/55 L 12/22/22 02:00 86/57 L 12/22/22 02:00 37.3 C 66 23 86/57 L 12/22/22 01:43 EST 37.4 C 71 28 H 12/22/22 01:43 EST 99/60 L 12/22/22 01:30 EST 37.6 C H 75 19 12/22/22 01:01 EST 107/47 L 12/22/22 01:01 EST 37.6 C H 73 21 12/22/22 01:00 EST 37.7 C H 70 23 107/47 L Pulse Ox O2 Del Method 12/22/22 07:30 Room Air 12/22/22 07:00 92 Room Air 12/22/22 04:03 93 Room Air 12/22/22 04:02 93 12/22/22 04:02 12/22/22 04:00 92 12/22/22 03:02 89 L Room Air 12/22/22 03:00 91 12/22/22 03:00 12/22/22 02:00 12/22/22 02:00 12/22/22 01:43 EST 95 12/22/22 01:43 EST 12/22/22 01:30 EST 93 12/22/22 01:01 EST 12/22/22 01:01 EST 94 12/22/22 01:00 EST 90 Laboratory Results CBC, BMP, calcium ionized, magnesium, LFTs reviewed PG Care Time/CCT Total # of Minutes Spent Total Time Spent with Patient: Total time spent is greater than 50% in coordination of care (as documented) at patient's floor/unit and/or counseling patient: Coding Level of Care Code 07160 SUB INP/OBS CARE 3/50MIN Diagnoses Shock R57.9 Ventricular tachycardia I47.20 Hypokalemia E87.6 Hypomagnesemia E83.42 Elevated troponin R79.89 Fall W19.XXXA GERD (gastroesophageal reflux disease) K21.9 S/P coronary artery stent placement Z95.5 Elevated creatine kinase R74.8 Hypothyroidism, unspecified type E03.9 Hypothyroidism type: unspecified Hypocalcemia E83.51 Diabetes mellitus type 2 in obese E11.69; E66.9 (10) Hypothyroidism Hypothyroidism type: unspecified Qualified Code(s): E03.9 - Hypothyroidism, unspecified
[2022-12-22] MEDS: TICAGRELOR 90 MG TAB PO SCH ×2 (12:57→21:05)
[2022-12-22] MEDS: ASPIRIN 81 MG ECTAB PO SCH (12:57)
[2022-12-22] MEDS ORDERED: CHLORASEPTIC 1.4% SOLN 180 ML BTL MT PRN (13:02)
[2022-12-22] MEDS: ACETAMINOPHEN 500 MG TAB PO PRN (14:14)
[2022-12-22] MEDS: ENOXAPARIN INJ 40 MG/0.4 ML SYR SQ SCH (14:44)
--- NOTE | 2022-12-22 17:43 | Electrocardiogram Report ---
Test Reason : Blood Pressure : / mmHG Vent. Rate : 070 BPM Atrial Rate : 070 BPM P-R Int : 118 ms QRS Dur : 070 ms QT Int : 648 ms P-R-T Axes : 000 031 095 degrees QTc Int : 699 ms Normal sinus rhythm Nonspecific ST and T wave abnormality Prolonged QT Abnormal ECG When compared with ECG of 20-DEC-2022 12:46, No significant change was found Confirmed by Macho Gates ([id number]) on 12/22/2022 5:43:28 PM Referred By: REFERRED SELF Confirmed By:Macho Gates
--- NOTE | 2022-12-22 18:07 | Electrocardiogram Report ---
Test Reason : Blood Pressure : / mmHG Vent. Rate : 068 BPM Atrial Rate : 068 BPM P-R Int : 130 ms QRS Dur : 068 ms QT Int : 634 ms P-R-T Axes : 055 045 088 degrees QTc Int : 674 ms Normal sinus rhythm Nonspecific ST and T wave abnormality Prolonged QT Abnormal ECG When compared with ECG of 20-DEC-2022 18:41, (unconfirmed) No significant change was found Confirmed by Macho Gates ([id number]) on 12/22/2022 6:07:17 PM Referred By: REFERRED SELF Confirmed By:Macho Gates
[2022-12-22] MEDS: ATORVASTATIN 40 MG TAB PO SCH (20:21)
[2022-12-22] MEDS: DOCUSATE SODIUM 100 MG CAP PO SCH (20:22)
[2022-12-22] MEDS: FAMOTIDINE 40 MG TABLET PO SCH (20:22)
--- NOTE | 2022-12-22 22:28 | Electrocardiogram Report ---
Test Reason : Blood Pressure : / mmHG Vent. Rate : 070 BPM Atrial Rate : 070 BPM P-R Int : 138 ms QRS Dur : 074 ms QT Int : 532 ms P-R-T Axes : 042 067 064 degrees QTc Int : 574 ms Normal sinus rhythm Low voltage QRS Nonspecific ST abnormality Prolonged QT Abnormal ECG When compared with ECG of 21-DEC-2022 06:48, (unconfirmed) Nonspecific T wave abnormality no longer evident in Inferior leads Nonspecific T wave abnormality no longer evident in Lateral leads QT has shortened Confirmed by Macho Gates ([id number]) on 12/22/2022 10:27:43 PM Referred By: REFERRED SELF Confirmed By:Macho Gates
--- NOTE | 2022-12-22 22:33 | Electrocardiogram Report ---
Test Reason : Blood Pressure : / mmHG Vent. Rate : 072 BPM Atrial Rate : 072 BPM P-R Int : 134 ms QRS Dur : 068 ms QT Int : 480 ms P-R-T Axes : 041 061 078 degrees QTc Int : 525 ms Normal sinus rhythm Low voltage QRS Cannot rule out Anterior infarct , age undetermined Prolonged QT Abnormal ECG When compared with ECG of 22-DEC-2022 05:30, (unconfirmed) No significant change was found Confirmed by Macho Gates ([id number]) on 12/22/2022 10:32:49 PM Referred By: REFERRED SELF Confirmed By:Macho Gates
[2022-12-23] MEDS: POTASSIUM CHLORIDE CRTAB 20 MEQ TABCR PO SCH ×2 (05:53→13:30)
[2022-12-23] MEDS: LEVOTHYROXINE SODIUM 88 MCG TABLET PO SCH (05:53)
[2022-12-23 07:27] LABS: Basophils # (auto) 0.04 K/uL (0.00-0.20); Basophils % (auto) 0.4 %; Eosinophils # (auto) 0.26 K/uL (0.00-0.50); Eosinophils % (auto) 2.5 %; Hematocrit (blood only) 33.8 % (37.0-47.0); Hemoglobin 11.4 g/dl (12.0-16.0); Immature Granulocytes # (auto) 0.04 K/uL (0.01-0.20); Immature Granulocytes % (auto) 0.4 %; Lymphocytes # (auto) 1.75 K/uL (1.20-3.40); Lymphocytes % (auto) 16.8 %; Mean Corpuscular Hemoglobin 28.6 pg (25.0-34.0); Mean Corpuscular Hgb Conc 33.7 g/dL (32.0-36.0); Mean Corpuscular Volume 84.9 fL (80.0-100.0); Monocytes # (auto) 0.72 K/uL (0.11-0.59); Monocytes % (auto) 6.9 %; Neutrophils # (auto) 7.62 K/uL (1.40-6.50); Platelet Count 193 K/uL (130-400); RDW Coefficient of Variation 14.8 % (11.5-14.5); RDW Standard Deviation 45.9 fL (36.4-46.3); Red Blood Count 3.98 M/uL (4.20-5.40); White Blood Count 10.43 K/ul (4.8-10.8)
[2022-12-23 07:42] LABS: BUN Creatinine Ratio 8.6 (10-20); Calcium 7.5 mg/dl (8.6-10.3); Creatinine Clr Calc Pharmacy 69.7 ml/min; Est GFR (African American) 89.6 ml/min; Est GFR (Non-African American) 77.3 ml/min; Magnesium 1.8 mg/dl (1.7-2.4)
[2022-12-23 08:28] LABS: Estimated Average Glucose 240 mg/dl
[2022-12-23] MEDS: INSULIN ASPART PER UNIT CHARGE SC SCH ×4 (08:37→23:49)
[2022-12-23] MEDS: DOCUSATE SODIUM 100 MG CAP PO SCH ×2 (08:38→21:05)
[2022-12-23] MEDS: LANTUS PER UNIT CHARGE SC SCH (08:38)
[2022-12-23] MEDS: FAMOTIDINE 40 MG TABLET PO SCH ×2 (08:38→21:06)
[2022-12-23] MEDS: ASPIRIN 81 MG ECTAB PO SCH (08:38)
[2022-12-23] MEDS: MULTIVITAMIN TAB PO SCH (08:38)
[2022-12-23] MEDS: PANTOprazole 40 MG TAB PO SCH (08:38)
[2022-12-23] MEDS: MAGNESIUM OXIDE 400 MG TAB PO SCH ×2 (08:39→21:06)
[2022-12-23] MEDS: ASCORBIC ACID 500 MG TAB PO SCH (08:39)
[2022-12-23] MEDS: FOLIC ACID 1 MG TAB PO SCH (08:39)
[2022-12-23] MEDS: CHOLECALCIFEROL 1,000 UNITS 25 MCG TAB PO SCH (08:39)
[2022-12-23] MEDS: TICAGRELOR 90 MG TAB PO SCH ×2 (08:40→21:05)
[2022-12-23] MEDS: ACETAMINOPHEN 500 MG TAB PO PRN (08:41)
[2022-12-23] MEDS: POLYETHYLENE (MIRALAX) 17 GM PACK PO SCH (08:44)
[2022-12-23] MEDS ORDERED: CALCIUM GLUCONATE 10% 1,000 MG in SODIUM CHLOR 0.9% MINI-B 50 ML IV ONE (09:12)
[2022-12-23] MEDS ORDERED: MAGNESIUM SULFATE / D5W 1 GM/100 ML BAG IV ONE (09:12)
[2022-12-23] MEDS ORDERED: STAT IV/IM STA (09:12)
[2022-12-23] MEDS: ENOXAPARIN INJ 40 MG/0.4 ML SYR SQ SCH (11:52)
--- NOTE | 2022-12-23 16:56 | Cardiology Consultation ---
Date of Consultation December 23, 2022 Assessment & Plan (1) Ventricular tachycardia: (2) Hypokalemia: (3) Hypomagnesemia: (4) Acute non-ST elevation myocardial infarction (NSTEMI): Plan 1. Ventricular tachycardia: She had multiple runs of torsade de pointes which were of classic induction and morphology for metabolic derangement. This does not appear to be related to ischemia or scar related ventricular tachycardia. I would continue as you are to correct her electrolyte abnormalities and continued observation. 2. Hypokalemia: She had severe hypokalemia on presentation, steps will need to be taken to keep this from occurring again. 3. Hypomagnesemia: She had severe hypomagnesemia on presentation, sepsis will need to be taken to keep this from recurring again. 4. NSTEMI: She had quite significant enzyme rise, on presentation her enzymes were not terribly high and the time course is somewhat worrisome for a cardiac event. Her electrocardiogram was very abnormal and difficult to read but she did have ST depression. She does have known coronary artery disease and some type of ischemic evaluation may be indicated. I do not know if we can trust symptoms. Her echo did not show wall motion abnormalities which is comforting. I do not think her ventricular arrhythmia was ischemia related. History of Present Illness Reason for Consultation: Ventricular tachycardia Attending Physician: Oralia Nieves MD History of Present Illness This is a 62-year-old woman with a history of diabetes mellitus, hyperlipidemia, obesity, tobacco use and known coronary artery disease. She presented with an NSTEMI and had a drug-eluting stent placed in the LAD on October 22, 2020. She had normal left ventricular systolic function. She had recurrent chest discomfort almost immediately after stent placement but was felt to be not on cardiac. She presented to the emergency room on December 19, 2022 with symptoms of weakness and then a fall on the evening before presentation. Apparently she was on the floor overnight and was brought to the emergency room the next day. She was initially awake but became obtunded, multiple electrolyte abnormalities were identified including severe hypokalemia and hypomagnesemia and with deterioration in her condition she was intubated. She had marked QT prolongation and ST deviation on electrocardiography. She had multiple runs of torsade de pointes in the emergency room, review of the rhythm strips on telemetry shows that these are classic induction with a long RR interval and a PVC following on the T wave following with a polymorphic ventricular tachycardia consistent with torsade. An echocardiogram done October 22, 2022 showed mild concentric left ventricular hypertrophy with normal left ventricular systolic function and ejection fraction of 60 to 65%. Mild aortic sclerosis was present without stenosis. A repeat echocardiogram on December 20, 2022 appears very similar. Her presenting potassium was 1.5, that has been repleted. Her presenting magnesium was 1.1, that also has been repleted. Her electrocardiographic abnor malities have gradually improved and the QT is no longer markedly prolonged and she has had no further torsade since her immediate presentation. Her high- sensitivity troponin was somewhat elevated on presentation (1083) and increased to a peak of 1907 about 10 hours later and then diminished. She was somewhat hypotensive on presentation with blood pressures as low as about 80 at times. At the time of my evaluation she was in bed, she seemed to be comfortable, she is complaining of throat discomfort (probably from intubation) but did not seem to be having anginal type chest discomfort and did not seem to have too much recollection of her presentation. She could not tell me too much about her symptoms prior to admission. Allergies Allergy/AdvReac Type Severity Reaction Status Date / Time dulaglutide [From Trulicity] AdvReac Intermediate stomach Verified 11/15/22 16:15 pain albiglutide [From Tanzeum] AdvReac Unknown CAN'T Verified 11/15/22 16:15 REMEMBER Home Medications Medication Instructions Recorded Confirmed Type nystatin 100,000 unit/gram topical 1 applic topical BID PRN Skin 08/20/21 12/19/22 History powder Irritation meclizine 25 mg tablet 25 mg PO TID PRN dizziness 10/11/21 12/19/22 History blood-glucose meter (Prodigy 10/15/21 12/19/22 History Autocode Meter kit) levothyroxine 88 mcg tablet 88 mcg PO DAILY #30 tabs 10/15/21 12/19/22 Rx acetaminophen 500 mg tablet 1,000 mg PO TID PRN Pain 01/25/22 12/19/22 History (Tylenol Extra Strength) betamethasone dipropionate 0.05 % 1 applic topical DIRECTED PRN 05/03/22 12/19/22 History topical cream Skin Irritation hydroxyzine HCl 10 mg tablet 10 mg PO TID PRN anxiety #90 tabs 05/03/22 12/19/22 Rx pen needle, diabetic 32 gauge x #200 ea 06/28/22 12/19/22 Rx 5/32" (BD Ultra-Fine [place] Pen Needle) sucralfate 1 gram tablet 1 g PO ACHS 30 days #120 tabs 07/01/22 12/19/22 Rx insulin regular hum U-500 conc 500 10 - 20 unit (0.02 - 0.04 mL) 07/19/22 12/19/22 Rx unit/mL(3 mL) subcut pen (Humulin subcut BID #6 mL R U-500 (Conc) Insulin Kwikpen) atorvastatin 80 mg tablet 80 mg PO QPM #90 tabs 10/03/22 12/19/22 Rx fluvoxamine 50 mg tablet 50 mg PO HS 10/17/22 12/19/22 History aspirin 81 mg tablet,delayed 81 mg PO QAM #30 tabs 10/29/22 12/19/22 Rx release docusate sodium 100 mg capsule 100 mg PO BID #60 caps 10/29/22 12/19/22 Rx polyethylene glycol 3350 17 gram 17 g PO DAILY #30 ea 10/29/22 12/19/22 Rx oral powder packet (Miralax) ticagrelor 90 mg tablet (Brilinta) 90 mg PO BID #60 tabs 10/29/22 12/19/22 Rx metoclopramide HCl 5 mg tablet 5 mg PO AC #90 tabs 11/06/22 12/19/22 Rx famotidine 20 mg tablet 40 mg PO BID 12/19/22 12/19/22 History pantoprazole 40 mg tablet,delayed 40 mg PO DAILY 12/19/22 12/19/22 History release Patient History Medical History Vitamin D deficiency Diabetes mellitus type 2 in obese Acute on chronic combined systolic and diastolic CHF (congestive heart failure) Nausea vomiting and diarrhea Bradycardia with 41-50 beats per minute Hyperglycemia Chest pain Chest pain Hypokalemia Hypomagnesemia Accelerated hypertension Albuminuria Diabetic nephropathy associated with type 2 diabetes mellitus Depression Osteoarthritis Chronic headaches CAD (coronary artery disease) No remaining occlusive disease after 2 LAD drug eluting stents 10/22/20. Follows with Dr. Harris NSTEMI (non-ST elevated myocardial infarction) 10/22/2020 s/p 2 CHANTAL Vulvitis Diabetes type 2, uncontrolled IDDM Dyslipidemia Tobacco abuse Hypertension Hypothyroidism Obesity Anxiety Surgical History History of cardiac catheterization 10/22/2020 Dominant: Right Left Main (% Stenosis): Normal LAD (% Stenosis): Proximal (99) and Mid (75) Circumflex (% Stenosis): Normal (luminal irregularities) RCA (% Stenosis): Normal (Luminal irregularities) 2 CHANTAL to LAD S/P coronary artery stent placement 2 CHANTAL to LAD 10/22/2020 History of cholecystectomy History of dental surgery History of tonsillectomy Family History Unknown Diabetes Thyroid disorder Father Diabetes Other No family history of adverse response to anesthesia Denies family history of Ovarian cancer Prostate cancer Breast cancer Colorectal cancer Uterine cancer Social History Smoking Status: Current every day smoker Tobacco Type: Cigarettes packs per day: 0.5; Cigarettes Per Day: 10; Second Hand Exposure: No; Do You Dip or Chew Tobacco: No; Tobacco Cessation Education Requested by Patient: No Hx Alcohol Use: No Hx Substance Use: No Preferred Language: Slovak Communication Ability: Effective Visual Impairment: No Limitations Mycologist Required: No Beliefs That Will Affect Care: None marital status: Single Current Living Situation: Alone current occupational status: disabled How many Children do You have: 0 Other Information That Helps Us Care for You: No Feels Safe at Home: Yes Safety Concerns: Feels Safe At This Time Safety Concerns Comment: Gets nervous sometimes because she lives alone, gets shaky from anxiety Diet: regular caffeine: Yes Dental Care, Regularly: No Physical Activity Frequency: Does not Exercise Seatbelt Use: always Sunscreen Use: No Assistive Devices: Walker Review of Systems Review of Systems: Unobtainable due to cognitive status Physical Exam Physical Exam: Constitutional: Alert, cooperative and in no distress although not a good historian. HEENT: Unremarkable Neck: No jugular venous distention, carotid pulses are normal and equal bilaterally without bruits. Pulmonary: Clear to auscultation bilaterally. Cardiac: Regular rhythm with no murmur, gallop or rub. Abdomen: Soft, nontender with normal bowel sounds. Extremities: No edema. Distal pulses intact. Neurologic: No focal findings. Skin: No rash, ecchymoses or petechiae. Results & Data Vital Signs (Past 12 Hours) Vital Signs Temp Pulse Pulse Resp BP Pulse Ox O2 Del Method 12/23/22 15:45 68 12/23/22 15:22 36.6 C 65 16 97/62 L 94 Room Air 12/23/22 11:30 36.7 C 60 18 136/75 97 Room Air 12/23/22 09:00 Room Air 12/23/22 08:00 75 12/23/22 07:59 36.9 C 78 18 124/74 94 Room Air Laboratory Results Cardiac Enzymes 12/24/22 Range/Units 07:37 AST 15 (13-39) U/L CBC 12/24/22 Range/Units 07:37 WBC 10.82 H (4.8-10.8) K/ul RBC 4.33 (4.20-5.40) M/uL Hgb 12.3 (12.0-16.0) g/dl Hct 36.6 L (37.0-47.0) % Plt Count 230 (130-400) K/uL Neut # (Auto) 7.99 H (1.40-6.50) K/uL Lymph # (Auto) 1.72 (1.20-3.40) K/uL [place] # (Auto) 0.73 H (0.11-0.59) K/uL Eos # (Auto) 0.28 (0.00-0.50) K/uL Baso # (Auto) 0.05 (0.00-0.20) K/uL Comprehensive Metabolic Panel 12/24/22 Range/Units 07:37 Sodium 135 L (136-145) mmol/L Potassium 5.3 H (3.5-5.1) mmol/L Chloride 103 (98-107) mmol/L Carbon Dioxide 27 (21-32) mmol/L BUN 7 (6-23) mg/dl Creatinine 0.85 (0.6-1.2) mg/dl Glucose 141 H (70-99(Fasting)) mg/dl Calcium 8.1 L (8.6-10.3) mg/dl AST 15 (13-39) U/L ALT 14 (7-52) U/L Alkaline Phosphatase 115 H (34-104) U/L Total Protein 5.7 L (6.0-8.3) gm/dl Albumin 2.4 L (3.4-5.0) gm/dl Intake and Output 12/24/22 12/24/22 12/24/22 06:59 14:59 22:59 Intake Total 1110 / 1110 Output Total Balance 1109 / 1109 Intake: IV 200 / 200 Magnesium Sulfate / D5w 1 gm In 200 / 200 100 ml @ 50 mls/hr IV Q2H TONI Rx#:[id number] Oral 910 / 910 Output: # Bowel Movements Other: # Unmeasured Voids 1 3 Weight 85.8 kg Diagnostic Findings Telemetry: For the most part sinus rhythm, on initial presentation the emergency room runs of torsade de pointes as noted in the HPI PG Care Time/CCT Total # of Minutes Spent Total Time Spent with Patient: Total time spent is greater than 50% in coordination of care (as documented) at patient's floor/unit and/or counseling patient: Coding Level of Care Code 24085 INT INP/OBS CARE 3/75MIN Diagnoses Ventricular tachycardia I47.20 Hypokalemia E87.6 Hypomagnesemia E83.42 Acute non-ST elevation myocardial infarction (NSTEMI) I21.4
--- NOTE | 2022-12-23 17:39 | Hospitalist Progress Note ---
Date of Service December 23, 2022 Assessment & Plan (1) Ventricular tachycardia: Plan: With episode of what was initially thought to be ventricular tachycardia in the ER now interpreted by cardiology as torsades. She required 1 shock and intubation, central line placement and aggressive electrolyte replacement Thought to be secondary to hypokalemia and also with significant hypocalcemia and prolonged QTc Initially was placed on IV amiodarone which has since been discontinued Cardiology was curb sided and did not recommend cardiac catheterization upfront due to cause of cardiac arrest likely being from hypokalemia Echocardiogram preserved EF ECGs improving but did show signs of severe hypokalemia and prolonged QT Keep electrolytes replete-hold p.o. potassium today and give IV magnesium, IV calcium and start p.o. calcium Consult cardiology appreciated-needs some ischemic work-up given elevation of troponin Continue to monitor on telemetry Continue to hold home fluvoxamine, meclizine, hydroxyzine, and metoclopramide given prolonged QT (2) Shock: Plan: Started on Levophed in the ER, cardiogenic, no source of infection to suspect septic shock Now weaned off Levophed and blood pressures are normal, transferred out of the ICU on 12/22 Appears cardiac arrest was due to electrolyte abnormalities Potassium at 1.5 on admission, with hypocalcemia Echocardiogram with preserved EF and no wall motion abnormalities (3) Hypokalemia: Plan: K 1.5 on arrival to the ER Suspect secondary to gastroparesis and vomiting as this has been a recurrent problem in the past although never quite this low Potassium was replaced and is now normalized and is high normal today Hold further p.o. potassium at this point but replace with IV magnesium Follow BMP and magnesium Renin/aldosterone levels checked and pending (4) Hypocalcemia: Plan: Replace with calcium gluconate IV again today and start calcium carbonate 1250 Mg p.o. twice daily Follow level in the morning Replace vitamin D-changed to 50,000 units once weekly given profoundly low vitamin D level Intact PTH elevated at 325-likely appropriate response to hypocalcemia (5) Vitamin D deficiency: Plan: Vitamin D level low at 8 causing hypocalcemia which may have also contributed to arrhythmia Replace with 50,000 units once weekly of vitamin D2 for 8 weeks (6) Hypomagnesemia: Plan: Mg level 1.1 on admission was replaced Keep at 2.0 or higher-give another gram of IV magnesium today (7) Elevated troponin: Plan: Unclear if demand vs. NSTEMI. Troponin peaked at 1907 and back down Likely from demand ischemia from V. tach arrest and defibrillation Echocardiogram without wall motion abnormalities Continue home aspirin and Brilinta, atorvastatin Appreciate cardiology consultation-plan for ischemic evaluation (8) Fall: Plan: With likely fall on left side and struck her face. No injuries on CT head, cervical spine, chest/abdo/pelvis Suspect weakness due to electrolytes imbalance PT/OT consults in place are recommending rehab She is having some stiffness all over body likely from injuries-Tylenol as needed for pain (9) GERD (gastroesophageal reflux disease): Plan: Continue home famotidine and Protonix (10) S/P coronary artery stent placement: Plan: 2 CHANTAL to LAD 10/22/2020 Continue home ASA, Brilinta, atorvastatin Not on BB due to previous bradycardia (11) Elevated creatine kinase: Plan: Suspect due to elevated troponin rather than rhabdo, trended downward to 593 but given stiffness all over body, will repeat CK tomorrow (12) Hypothyroidism: Plan: TSH normal at 0.572 in 08/2022 Continue home levothyroxine (13) Diabetes mellitus type 2 in obese: Plan: Continue NovoLog and Lantus Uncontrolled, last hemoglobin A1c 10.2% 08/2022 and stable again at 10% Plan VTE Prophyalxis -Lovenox SQ Disposition -Continued stay in PCU, PT/OT is recommending re and will need referrals Admission and Anticipated Discharge Date Admission Date: December 19, 2022 Subjective Patient reports she feels terrible today. She is stiff all over her body. Appetite is low and she does not want a minced and moist diet as she cannot eat it. I discussed her care with cardiology. Telemetry with normal sinus rhythm with rates in the 70s Physical Exam Constitutional: WD/WN, vitals as above Eyes: PERRL, conjunctivae normal, anicteric sclerae Respiratory: normal respiratory effort, lungs clear to auscultation Cardiovascular: Rate/Rhythm: regular rate and regular rhythm Heart Sounds: no murmur Extremities: no edema Gastrointestinal (Abdomen): normal bowel sounds, soft, nontender, no hepatosplenomegaly Psychiatric: A+Ox3, euthymic affect Results & Data Results & Data Vital Signs (Past 12 Hours) Vital Signs Temp Pulse Pulse Resp BP Pulse Ox O2 Del Method 12/23/22 15:45 68 12/23/22 15:22 36.6 C 65 16 97/62 L 94 Room Air 12/23/22 11:30 36.7 C 60 18 136/75 97 Room Air 12/23/22 09:00 Room Air 12/23/22 08:00 75 12/23/22 07:59 36.9 C 78 18 124/74 94 Room Air Laboratory Results CBC, BMP, ionized calcium, hemoglobin A1c, magnesium level, vitamin D level, and blood cultures all reviewed PG Care Time/CCT Total # of Minutes Spent Total Time Spent with Patient: Total time spent is greater than 50% in coordination of care (as documented) at patient's floor/unit and/or counseling patient: Coding Level of Care Code 10571 SUB INP/OBS CARE 3/50MIN Diagnoses Ventricular tachycardia I47.20 Shock R57.9 Hypokalemia E87.6 Hypocalcemia E83.51 Vitamin D deficiency E55.9 Hypomagnesemia E83.42 Elevated troponin R79.89 Fall W19.XXXA GERD (gastroesophageal reflux disease) K21.9 S/P coronary artery stent placement Z95.5 Elevated creatine kinase R74.8 Hypothyroidism, unspecified type E03.9 Hypothyroidism type: unspecified Diabetes mellitus type 2 in obese E11.69; E66.9 (12) Hypothyroidism Hypothyroidism type: unspecified Qualified Code(s): E03.9 - Hypothyroidism, unspecified
[2022-12-23] MEDS ORDERED: ERGOCALCIFEROL 50,000 UNITS 1250 MCG CAP PO SCH (18:45)
[2022-12-23] MEDS: ATORVASTATIN 40 MG TAB PO SCH (21:05)
[2022-12-23] MEDS: CALCIUM CARBONATE 1250MG TAB PO SCH (21:05)
[2022-12-24] MEDS: LEVOTHYROXINE SODIUM 88 MCG TABLET PO SCH (06:20)
[2022-12-24] MEDS: INSULIN ASPART PER UNIT CHARGE SC SCH ×4 (07:45→21:01)
[2022-12-24 07:57] LABS: Basophils # (auto) 0.05 K/uL (0.00-0.20); Basophils % (auto) 0.5 %; Eosinophils # (auto) 0.28 K/uL (0.00-0.50); Eosinophils % (auto) 2.6 %; Hematocrit (blood only) 36.6 % (37.0-47.0); Hemoglobin 12.3 g/dl (12.0-16.0); Immature Granulocytes # (auto) 0.05 K/uL (0.01-0.20); Immature Granulocytes % (auto) 0.5 %; Lymphocytes # (auto) 1.72 K/uL (1.20-3.40); Lymphocytes % (auto) 15.9 %; Mean Corpuscular Hemoglobin 28.4 pg (25.0-34.0); Mean Corpuscular Hgb Conc 33.6 g/dL (32.0-36.0); Mean Corpuscular Volume 84.5 fL (80.0-100.0); Mean Platelet Volume 11.5 fL (9.4-12.4); Monocytes # (auto) 0.73 K/uL (0.11-0.59); Monocytes % (auto) 6.7 %; Neutrophils # (auto) 7.99 K/uL (1.40-6.50); Neutrophils % (auto) 73.8 %; Platelet Count 230 K/uL (130-400); RDW Coefficient of Variation 14.6 % (11.5-14.5); RDW Standard Deviation 45.1 fL (36.4-46.3); Red Blood Count 4.33 M/uL (4.20-5.40); White Blood Count 10.82 K/ul (4.8-10.8)
[2022-12-24] MEDS: TICAGRELOR 90 MG TAB PO SCH ×2 (08:28→21:01)
[2022-12-24] MEDS: ENOXAPARIN INJ 40 MG/0.4 ML SYR SQ SCH (08:28)
[2022-12-24] MEDS: FAMOTIDINE 40 MG TABLET PO SCH ×2 (08:29→21:01)
[2022-12-24] MEDS: PANTOprazole 40 MG TAB PO SCH (08:29)
[2022-12-24] MEDS: CALCIUM CARBONATE 1250MG TAB PO SCH ×2 (08:29→21:01)
[2022-12-24] MEDS: MULTIVITAMIN TAB PO SCH (08:29)
[2022-12-24] MEDS: FOLIC ACID 1 MG TAB PO SCH (08:29)
[2022-12-24] MEDS: MAGNESIUM OXIDE 400 MG TAB PO SCH ×2 (08:29→21:01)
[2022-12-24] MEDS: ASCORBIC ACID 500 MG TAB PO SCH (08:29)
[2022-12-24] MEDS: ASPIRIN 81 MG ECTAB PO SCH (08:29)
[2022-12-24] MEDS: LANTUS PER UNIT CHARGE SC SCH (08:30)
[2022-12-24] MEDS: POLYETHYLENE (MIRALAX) 17 GM PACK PO SCH (08:30)
[2022-12-24] MEDS ORDERED: PROCHLORPERAZINE 5 MG in SYRINGE 4 ML IV PRN (08:30)
[2022-12-24] MEDS: DOCUSATE SODIUM 100 MG CAP PO SCH ×2 (08:30→21:01)
[2022-12-24 08:47] LABS: Albumin Globulin Ratio 0.7 (0.9-2); Albumin Level 2.4 gm/dl (3.4-5.0); BUN Creatinine Ratio 8.2 (10-20); Bilirubin,Total 0.5 mg/dl (0.2-1.0); Calcium 8.1 mg/dl (8.6-10.3); Creatinine Clr Calc Pharmacy 65.9 ml/min; Est GFR (African American) 84.5 ml/min; Est GFR (Non-African American) 72.9 ml/min; Globulin 3.3 gm/dl (2.5-4.0); Magnesium 1.7 mg/dl (1.7-2.4); Potassium 5.3 mmol/L (3.5-5.1); Total Protein 5.7 gm/dl (6.0-8.3)
[2022-12-24] MEDS ORDERED: CHOLECALCIFEROL 1,000 UNITS 25 MCG TAB PO SCH (09:00)
[2022-12-24] MEDS: MAGNESIUM SULFATE / D5W 1 GM/100 ML BAG IV SCH ×2 (09:39→12:01)
--- NOTE | 2022-12-24 13:49 | Electrocardiogram Report ---
Test Reason : Blood Pressure : / mmHG Vent. Rate : 075 BPM Atrial Rate : 075 BPM P-R Int : 122 ms QRS Dur : 072 ms QT Int : 420 ms P-R-T Axes : 030 065 055 degrees QTc Int : 469 ms Normal sinus rhythm Normal ECG When compared with ECG of 22-DEC-2022 09:27, QT has shortened Confirmed by King Paul ([id number]) on 12/24/2022 1:49:06 PM Referred By: REFERRED SELF Confirmed By:King Paul
--- NOTE | 2022-12-24 14:27 | Hospitalist Progress Note ---
Date of Service December 24, 2022 Assessment & Plan (1) Ventricular tachycardia: Plan: With episode of what was initially thought to be ventricular tachycardia in the ER now interpreted by cardiology as torsades. She required 1 shock and intubation, central line placement and aggressive electrolyte replacement Thought to be secondary to hypokalemia and also with significant hypocalcemia and prolonged QTc Initially was placed on IV amiodarone which has since been discontinued Cardiology was curb sided and did not recommend cardiac catheterization upfront due to cause of cardiac arrest likely being from hypokalemia Echocardiogram preserved EF ECGs significantly abnormal and now normal-QTc now normal Keep electrolytes replete-K+ now mildly elevated but will give IV magnesium, continue po calcium Consult cardiology appreciated-needs some ischemic work-up given elevation of troponin-await plan from Cardiology Continue to monitor on telemetry Continue to hold home fluvoxamine, meclizine, hydroxyzine, and metoclopramide given prolonged QT She has a h/o polypharmacy and poor knowledge of medications she is taking at home-question if she overdosed on certain meds that prolong QTc? She also previously was on HCTZ and this was discontinued during previous stay for severe hypokalemia but perhaps she never threw it away and is taking it? (2) Shock: Plan: Started on Levophed in the ER, cardiogenic, no source of infection to suspect septic shock Now weaned off Levophed and blood pressures are normal, transferred out of the ICU on 12/22 Appears cardiac arrest was due to electrolyte abnormalities Potassium at 1.5 on admission, with hypocalcemia Echocardiogram with preserved EF and no wall motion abnormalities (3) Hypokalemia: Plan: K 1.5 on arrival to the ER Suspect secondary to gastroparesis and vomiting as this has been a recurrent problem in the past although never quite this low Potassium was replaced and is now normalized -mildly elevated Hold further p.o. 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 twice daily Follow level in the morning-improving Replace vitamin D-started 50,000 units once weekly given profoundly low vitamin D level Intact PTH elevated at 325-likely appropriate response to hypocalcemia (5) Vitamin D deficiency: Plan: Vitamin D level low at 8 causing hypocalcemia which may have also contributed to arrhythmia Replace with 50,000 units once weekly of vitamin D2 for 8 weeks (6) Hypomagnesemia: Plan: Mg level 1.1 on admission was replaced Keep at 2.0 or higher-give another 2 grams of IV magnesium today (7) Elevated troponin: Plan: Unclear if demand vs. NSTEMI. Troponin peaked at 1907 and back down Likely from demand ischemia from V. tach arrest and defibrillation Echocardiogram without wall motion abnormalities Continue home aspirin and Brilinta, atorvastatin Appreciate cardiology consultation-plan for ischemic evaluation-possible cardiac cath (8) Fall: Plan: With likely fall on left side and struck her face. No injuries on CT head, cervical spine, chest/abdo/pelvis Suspect weakness due to electrolytes imbalance PT/OT consults in place are recommending rehab She is having some stiffness all over body likely from injuries-Tylenol as needed for pain CK now normal (9) GERD (gastroesophageal reflux disease): Plan: Continue home famotidine and Protonix (10) S/P coronary artery stent placement: Plan: 2 CHANTAL to LAD 10/22/2020 Continue home ASA, Brilinta, atorvastatin Not on BB due to previous bradycardia (11) Elevated creatine kinase: Plan: Suspect due to elevated troponin rather than rhabdo, trended downward to 593 but given stiffness all over body, CK now normal (12) Hypothyroidism: Plan: TSH normal at 0.572 in 08/2022 Continue home levothyroxine (13) Diabetes mellitus type 2 in obese: Plan: Continue NovoLog and Lantus Uncontrolled, last hemoglobin A1c 10.2% 08/2022 and stable again at 10% Plan VTE Prophyalxis -Lovenox SQ Disposition -Continued stay in PCU, PT/OT is recommending rehab Admission and Anticipated Discharge Date Admission Date: December 19, 2022 Subjective Pt still feels unwell, stiff all over, nauseated this AM. Moved her bowels today. Got out of bed only one time to go to the bathroom and walked with a w alker. Tele with NSR 60-70s Physical Exam Constitutional: WD/WN, vitals as above Respiratory: normal respiratory effort, lungs clear to auscultation Cardiovascular: Rate/Rhythm: regular rate and regular rhythm Heart Sounds: no murmur Extremities: no edema Gastrointestinal (Abdomen): Inspection/Auscultation: normal bowel sounds; abdomen not distended Percussion/Palpation: + abdomen tender (mild in mid abdomen) and abdomen soft; no guarding Psychiatric: A+Ox3, euthymic affect Results & Data Results & Data Vital Signs (Past 12 Hours) Vital Signs Temp Pulse Pulse Resp BP BP Pulse Ox 12/24/22 12:13 36.6 C 76 19 123/75 96 12/24/22 09:06 70 12/24/22 08:56 12/24/22 07:59 36.7 C 80 19 147/78 H 96 12/24/22 03:00 36.8 C 72 16 151/79 H 94 O2 Del Method 12/24/22 12:13 Room Air 12/24/22 09:06 12/24/22 08:56 Room Air 12/24/22 07:59 Room Air 12/24/22 03:00 Room Air Laboratory Results CBC, BMP Magnesium, LFTs reviewed BCxs reviewed PG Care Time/CCT Total # of Minutes Spent Total Time Spent with Patient: Total time spent is greater than 50% in coordination of care (as documented) at patient's floor/unit and/or counseling patient: Coding Level of Care Code 93812 SUB INP/OBS CARE 2/35MIN Diagnoses Ventricular tachycardia I47.20 Shock R57.9 Hypokalemia E87.6 Hypocalcemia E83.51 Vitamin D deficiency E55.9 Hypomagnesemia E83.42 Elevated troponin R79.89 Fall W19.XXXA GERD (gastroesophageal reflux disease) K21.9 S/P coronary artery stent placement Z95.5 Elevated creatine kinase R74.8 Hypothyroidism, unspecified type E03.9 Hypothyroidism type: unspecified Diabetes mellitus type 2 in obese E11.69; E66.9 (12) Hypothyroidism Hypothyroidism type: unspecified Qualified Code(s): E03.9 - Hypothyroidism, unspecified
[2022-12-24] MEDS: ATORVASTATIN 40 MG TAB PO SCH (21:01)
[2022-12-25] MEDS: ACETAMINOPHEN 500 MG TAB PO PRN (02:32)
[2022-12-25] MEDS: LEVOTHYROXINE SODIUM 88 MCG TABLET PO SCH (05:51)
[2022-12-25 07:31] LABS: Basophils # (auto) 0.06 K/uL (0.00-0.20); Basophils % (auto) 0.7 %; Eosinophils # (auto) 0.23 K/uL (0.00-0.50); Eosinophils % (auto) 2.7 %; Hematocrit (blood only) 35.9 % (37.0-47.0); Hemoglobin 11.7 g/dl (12.0-16.0); Immature Granulocytes # (auto) 0.06 K/uL (0.01-0.20); Immature Granulocytes % (auto) 0.7 %; Lymphocytes # (auto) 1.76 K/uL (1.20-3.40); Lymphocytes % (auto) 20.8 %; Mean Corpuscular Hemoglobin 28.6 pg (25.0-34.0); Mean Corpuscular Hgb Conc 32.6 g/dL (32.0-36.0); Mean Corpuscular Volume 87.8 fL (80.0-100.0); Mean Platelet Volume 11.3 fL (9.4-12.4); Monocytes # (auto) 0.64 K/uL (0.11-0.59); Monocytes % (auto) 7.5 %; Neutrophils # (auto) 5.73 K/uL (1.40-6.50); Neutrophils % (auto) 67.6 %; Platelet Count 260 K/uL (130-400); RDW Coefficient of Variation 14.9 % (11.5-14.5); Red Blood Count 4.09 M/uL (4.20-5.40); White Blood Count 8.48 K/ul (4.8-10.8)
[2022-12-25] MEDS: INSULIN ASPART PER UNIT CHARGE SC SCH ×4 (07:48→21:49)
[2022-12-25 08:26] LABS: Calcium 8.1 mg/dl (8.6-10.3); Magnesium 1.9 mg/dl (1.7-2.4)
[2022-12-25] MEDS: ENOXAPARIN INJ 40 MG/0.4 ML SYR SQ SCH (08:28)
[2022-12-25 08:31] LABS: BUN Creatinine Ratio 6.9 (10-20); Creatinine Clr Calc Pharmacy 53.8 ml/min; Est GFR (African American) 67.8 ml/min; Est GFR (Non-African American) 58.5 ml/min
[2022-12-25] MEDS: FAMOTIDINE 40 MG TABLET PO SCH ×2 (08:44→20:41)
[2022-12-25] MEDS: MAGNESIUM OXIDE 400 MG TAB PO SCH ×2 (08:44→20:41)
[2022-12-25] MEDS: FOLIC ACID 1 MG TAB PO SCH (08:44)
[2022-12-25] MEDS: MULTIVITAMIN TAB PO SCH (08:44)
[2022-12-25] MEDS: PANTOprazole 40 MG TAB PO SCH (08:44)
[2022-12-25] MEDS: CALCIUM CARBONATE 1250MG TAB PO SCH ×2 (08:44→20:41)
[2022-12-25] MEDS: ASPIRIN 81 MG ECTAB PO SCH (08:44)
[2022-12-25] MEDS: ASCORBIC ACID 500 MG TAB PO SCH (08:44)
[2022-12-25] MEDS: POLYETHYLENE (MIRALAX) 17 GM PACK PO SCH (08:45)
[2022-12-25] MEDS: LANTUS PER UNIT CHARGE SC SCH (08:45)
[2022-12-25] MEDS: DOCUSATE SODIUM 100 MG CAP PO SCH ×2 (08:45→20:41)
[2022-12-25] MEDS ORDERED: MAGNESIUM SULFATE / D5W 1 GM/100 ML BAG IV ONE (09:04)
--- NOTE | 2022-12-25 09:33 | Pre Anesthesia Assessment ---
Date of Service December 25, 2022 Pre Sedation Assessment Vital Signs Temp Pulse Pulse Resp BP BP Pulse Ox 12/25/22 07:41 98.2 F 73 18 129/74 95 12/25/22 03:00 97.5 F L 78 20 119/73 95 12/24/22 23:22 74 12/24/22 23:00 97.7 F 84 18 129/77 96 12/24/22 21:00 12/24/22 19:00 98.1 F 77 20 107/70 97 12/24/22 17:00 79 12/24/22 16:58 97.7 F 83 18 145/85 H 95 12/24/22 12:13 97.9 F 76 19 123/75 96 O2 Del Method 12/25/22 07:41 Room Air 12/25/22 03:00 Room Air 12/24/22 23:22 12/24/22 23:00 Room Air 12/24/22 21:00 Room Air 12/24/22 19:00 Room Air 12/24/22 17:00 12/24/22 16:58 Room Air 12/24/22 12:13 Room Air Cardiovascular + regular rate Respiratory + respiratory effort normal Pre-Sedation Airway Assessment Smoking Status: Current every day smoker Hx Sleep Apnea: No Hx Difficult Intubation: No Short, Thick Neck: No Thyromental Distance: > or= 3.5 Finger Breadths Oral Cavity: + Dental Abnormalities Mallampati Class: III ASA: ASA3 Procedure Planning Contraindications for Sedation: none Current Medications Reviewed: Yes Notes The planned sedation has been discussed with the patient. Informed Consent was obtained. I have identified the patient, determined the appropriateness of sedation and have assessed the patient immediately prior to the procedure. All medicine(s) and interventions are by my order.
[2022-12-25] MEDS: TICAGRELOR 90 MG TAB PO SCH ×2 (09:43→20:41)
[2022-12-25] MEDS ORDERED: fentaNYL citrate PF 100 MCG/2 ML VIAL ONE (11:31)
[2022-12-25] MEDS ORDERED: niCARdipine HCL INJ 2.5 MG/ML 10 ML AMP ONE (11:31)
[2022-12-25] MEDS ORDERED: HEPARIN (PORCINE) 1000 UNIT/ML 10 ML (CATH LAB USE ONLY) ONE (11:31)
[2022-12-25] MEDS ORDERED: MIDAZOLAM HCL 1 MG/ML 2ML VIAL ONE ×2 (11:31→12:33)
[2022-12-25] MEDS ORDERED: NITROGLYCERIN/D5W 100MCG/ML 20ML SYR ONE (11:32)
[2022-12-25] MEDS ORDERED: ONDANSETRON INJ 2 MG/ML 2 ML VIAL ONE (11:38)
--- NOTE | 2022-12-25 12:15 | Post Anesthesia Assessment ---
Date of Service December 25, 2022 Post Sedation Assessment Vital Signs Temp Pulse Pulse Resp BP Pulse Ox O2 Del Method 12/25/22 10:00 71 12/25/22 10:00 Room Air 12/25/22 07:41 98.2 F 73 18 129/74 95 Room Air 12/25/22 03:00 97.5 F L 78 20 119/73 95 Room Air 12/24/22 23:22 74 12/24/22 23:00 97.7 F 84 18 129/77 96 Room Air 12/24/22 21:00 Room Air 12/24/22 19:00 98.1 F 77 20 107/70 97 Room Air 12/24/22 17:00 79 12/24/22 16:58 97.7 F 83 18 145/85 H 95 Room Air Recovery Score Activity: Moves 4 extremities Respiration: Deep Breath/Cough Circulation: +/-20% PreAnes Value Consciousness: Fully Awake Oxygen Saturation: O2 needed for >90% Discharge Sedation Level of Care: Fast Track Phase II Post Sedation Plan On clinical assessment, the patient appears to have tolerated the sedation without complications. Patient is recovering as anticipated. Patient will continue to be monitored by nursing and may be discharged when sedation discharge criteria are met per below protocol. Upon Completions of procedure up to 15 minutes continue every 5 minute vital signs and the P.A.R. score; then discharge to a Phase I or Fast Track to Phase II per the following guidelines: * Discharge Patient to appropriate Phase II area if PAR is 8 or greater or return to pre- procedure baseline. The post - procedure orders will be as directed. * If PAR score is less than 8 or not return to pre-procedure baseline then patient will follow Phase I monitoring till PAR is reached for Phase II. The Phase I may be done in procedure room or may call to secure a Phase I area. * If naloxone or flumazenil are used for reversal, hold in Phase I for continued monitoring from when last reversal dose was given for a minimum of 60 minutes or longer pending the nurse and/or physician discretion of patient condition before discharge to Phase II. Please call the Sedation Physician to re-evaluate and complete post-note for discharge to Phase II area. Do NOT discharge from procedure sedation or Phase 1 until post- sedation evaluation note is complete by procedure /sedation MD Sedation Discharge Instructions to be given to the patient at discharge to home.
--- NOTE | 2022-12-25 12:23 | Cardiac Catheterization ---
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: Recreation Engineer Cardiac Status Clinical evaluation leading to the procedure CAD Presenation: Non STEMI Diagnostic Physicians Name: Omer Galvan MD Closure Device Recommendations: Medical Therapy and/or Counseling Cardiac Cath Procedure Full Procedure Date December 25, 2022 Pre-Procedure Diagnosis Pre-Procedure Diagnosis: CAD and Arrhythmia AUC Score AUC Score: 7 Post-Procedure Diagnosis Post-Procedure Diagnosis: Severe CAD Procedure(s) Performed Procedure(s) Performed: Coronary Angiography and Left Heart Cath Carton Filler Omer Galvan MD Weed Science Research Technician(s) Jarod Singh Estimated Blood Loss Estimated Blood Loss: 5 Medication(s) Medication(s): Fentanyl, Heparin, Lidocaine 1%, Nicardipine, Nitroglycerin and Versed Summary of Findings Indication: History of coronary disease post prior stents to LAD. Recent torsades in the setting of profound electrolyte abnormalities. Elevated troponin. Access: 6 Fr right radial artery Catheters: Bascom Findings: LM -normal caliber, no significant disease LAD -medium caliber, 20% ostial, proximal LAD stent widely patent, mid segment stent widely patent. Distal vessel small without significant disease and extends to apex. Small to medium, jailed D1 with 90% ostial stenosis, remainder of D1 with no disease and MARYBETH-3 flow. Ramussmall, no significant disease Circumflex -medium caliber, no STEMI disease RCA -medium caliber, dominant, midsegment luminal irregularities. LVEDP -12 Arterial Closure: TR band Summary: 1. No significant CAD in major epicardial coronary arteries -Proximal and mid LAD stents widely patent 2. Severe branch vessel disease (jailed D1 90% ostial stenosis). 3. Normal intracardiac filling pressure Recommendations: No acute or high risk disease identified to explain arrhythmia. Ostial diagonal stenosis similar to appearance post stent placement 10/22/2020. Recommend medical management of branch vessel disease. No plans for intervention unless refractory exertional angina in the future. Continued ASCVD risk factor modification Hemodynamics Rest Ao:: 80/53/98 Final Ao: 87/52/67 LV: 90/12 Recommendations Recommendations: Medical Therapy and/or Counseling Specimens Specimens: None Radiation Exposure (mGy) 767 Contrast (mls) 55 Anesthesia Moderate 9741-2267 Procedural Complication(s) None Disposition PCU I attest to the content of the Intraoperative Record and any orders documented therein. Any exceptions are noted below. [facility] Card Cath Procedure Codes Cardiac Catheterization Procedure 1: Cardiovascular Cath Procedures: 39102 Coronaries and LHC (+/-LV) Moderate Sedation Procedure 1: Sedation/Anesthesia: 30209 Mod Sedation by the same physician;Init15 Min Child Age 5 & Up PG Care Time/CCT Total # of Minutes Spent Total Time Spent with Patient: Total time spent is greater than 50% in coordination of care (as documented) at patient's floor/unit and/or counseling patient:
[2022-12-25] MEDS ORDERED: SODIUM CHLORIDE 0.9% 1,000 ML IV SCH (12:45)
--- NOTE | 2022-12-25 19:28 | Hospitalist Progress Note ---
Date of Service December 25, 2022 Assessment & Plan (1) Ventricular tachycardia: Plan: With episode of what was initially thought to be ventricular tachycardia in the ER now interpreted by cardiology as torsades. She required 1 shock and intubation, central line placement and aggressive electrolyte replacement Thought to be secondary to hypokalemia and also with significant hypocalcemia and prolonged QTc Initially was placed on IV amiodarone which has since been discontinued Cardiology was curb sided and did not recommend cardiac catheterization upfront due to cause of cardiac arrest likely being from hypokalemia Echocardiogram preserved EF ECGs significantly abnormal and now normal-QTc now normal Keep electrolytes replete-K+ now mildly elevated but will give IV magnesium, continue po calcium Consult cardiology appreciated-needs some ischemic work-up given elevation of troponin-await plan from Cardiology Continue to monitor on telemetry Continue to hold home fluvoxamine, meclizine, hydroxyzine, and metoclopramide given prolonged QT She has a h/o polypharmacy and poor knowledge of medications she is taking at home-question if she overdosed on certain meds that prolong QTc? She also previously was on HCTZ and this was discontinued during previous stay for severe hypokalemia but perhaps she never threw it away and is taking it? She has no idea what medications she is taking. Patient does report she is thinking about entering senior care care or assisted living. (2) Shock: Plan: Started on Levophed in the ER, cardiogenic, no source of infection to suspect septic shock Now weaned off Levophed and blood pressures are normal, transferred out of the ICU on 12/22 Appears cardiac arrest was due to electrolyte abnormalities Potassium at 1.5 on admission, with hypocalcemia Echocardiogram with preserved EF and no wall motion abnormalities (3) Hypokalemia: Plan: K 1.5 on arrival to the ER Suspect secondary to gastroparesis and vomiting as this has been a recurrent problem in the past although never quite this low Potassium was replaced and is now normalized -mildly elevated Hold further p.o. 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 twice daily Follow level in the morning-improving Replace vitamin D-started 50,000 units once weekly given profoundly low vitamin D level Intact PTH elevated at 325-likely appropriate response to hypocalcemia (5) Vitamin D deficiency: Plan: Vitamin D level low at 8 causing hypocalcemia which may have also contributed to arrhythmia Replace with 50,000 units once weekly of vitamin D2 for 8 weeks (6) Hypomagnesemia: Plan: Mg level 1.1 on admission was replaced Keep at 2.0 or higher (7) Elevated troponin: Plan: Unclear if demand vs. NSTEMI. Troponin peaked at 1907 and back down Likely from demand ischemia from V. tach arrest and defibrillation Echocardiogram without wall motion abnormalities Continue home aspirin and Brilinta, atorvastatin Appreciate cardiology consultation-now s/p cardiac cath with patent stent and no intervention needed Medical management for CAD (8) Fall: Plan: With likely fall on left side and struck her face. No injuries on CT head, cervical spine, chest/abdo/pelvis Suspect weakness due to electrolytes imbalance PT/OT consults in place are recommending rehab She is having some stiffness all over body likely from injuries-Tylenol as needed for pain CK now normal (9) GERD (gastroesophageal reflux disease): Plan: Continue home famotidine and Protonix (10) S/P coronary artery stent placement: Plan: 2 CHANTAL to LAD 10/22/2020 Continue home ASA, Brilinta, atorvastatin Not on BB due to previous bradycardia (11) Elevated creatine kinase: Plan: Suspect due to elevated troponin rather than rhabdo, trended downward to 593 but given stiffness all over body, CK now normal (12) Hypothyroidism: Plan: TSH normal at 0.572 in 08/2022 Continue home levothyroxine (13) Diabetes mellitus type 2 in obese: Plan: Continue NovoLog and Lantus Uncontrolled, last hemoglobin A1c 10.2% 08/2022 and stable again at 10% Plan VTE Prophyalxis -Lovenox SQ Disposition -Continued stay in PCU, PT/OT is recommending rehab Admission and Anticipated Discharge Date Admission Date: December 19, 2022 Subjective Feeling better today, still some stiffness. Is eating more and not having nausea, feels like she's getting her appetite back. Nursing reports she has been refusing supplemental insulin as she fears her sugar will go too low. She tells me she does not know what medication she takes at home but follows "a list from my doctor." She thinks she will need refills on everything because she is not sure what she has Tele with NSR, rates 70s Physical Exam Constitutional: WD/WN, vitals as above Respiratory: normal respiratory effort, lungs clear to auscultation Cardiovascular: Rate/Rhythm: regular rate and regular rhythm Heart Sounds: no murmur Extremities: no edema Gastrointestinal (Abdomen): normal bowel sounds, soft, nontender, no hepatosplenomegaly Psychiatric: A+Ox3, euthymic affect Results & Data Results & Data Vital Signs (Past 12 Hours) Vital Signs Temp Pulse Pulse Resp BP Pulse Ox O2 Del Method 12/25/22 15:49 83 12/25/22 15:17 36.4 C L 78 20 138/72 96 Room Air 12/25/22 14:17 36.5 C 74 20 122/71 95 Room Air 12/25/22 13:47 36.5 C 86 18 138/75 95 Room Air 12/25/22 13:17 36.4 C L 72 20 123/78 95 Room Air 12/25/22 13:02 36.4 C L 67 20 106/63 96 Room Air 12/25/22 12:40 75 18 106/65 93 Room Air 12/25/22 12:25 72 18 104/61 93 Room Air 12/25/22 10:00 71 12/25/22 10:00 Room Air 12/25/22 07:41 36.8 C 73 18 129/74 95 Room Air Laboratory Results CBC, BMP< magnesium reviewed PG Care Time/CCT Total # of Minutes Spent Total Time Spent with Patient: Total time spent is greater than 50% in coordination of care (as documented) at patient's floor/unit and/or counseling patient: Coding Level of Care Code 82577 SUB INP/OBS CARE 2/35MIN Diagnoses Ventricular tachycardia I47.20 Shock R57.9 Hypokalemia E87.6 Hypocalcemia E83.51 Vitamin D deficiency E55.9 Hypomagnesemia E83.42 Elevated troponin R79.89 Fall W19.XXXA GERD (gastroesophageal reflux disease) K21.9 S/P coronary artery stent placement Z95.5 Elevated creatine kinase R74.8 Hypothyroidism, unspecified type E03.9 Hypothyroidism type: unspecified Diabetes mellitus type 2 in obese E11.69; E66.9 (12) Hypothyroidism Hypothyroidism type: unspecified Qualified Code(s): E03.9 - Hypothyroidism, unspecified
[2022-12-25] MEDS: ATORVASTATIN 40 MG TAB PO SCH (20:41)
[2022-12-26] MEDS: LEVOTHYROXINE SODIUM 88 MCG TABLET PO SCH (05:59)
[2022-12-26 07:48] LABS: BUN Creatinine Ratio 6.8 (10-20); Creatinine Clr Calc Pharmacy 46.8 ml/min; Est GFR (African American) 56.8 ml/min; Potassium 4.7 mmol/L (3.5-5.1)
[2022-12-26] MEDS: ASCORBIC ACID 500 MG TAB PO SCH (08:04)
[2022-12-26] MEDS: MULTIVITAMIN TAB PO SCH (08:05)
[2022-12-26] MEDS: FAMOTIDINE 40 MG TABLET PO SCH ×2 (08:05→21:11)
[2022-12-26] MEDS: ENOXAPARIN INJ 40 MG/0.4 ML SYR SQ SCH (08:05)
[2022-12-26] MEDS: ASPIRIN 81 MG ECTAB PO SCH (08:05)
[2022-12-26] MEDS: PANTOprazole 40 MG TAB PO SCH (08:05)
[2022-12-26] MEDS: FOLIC ACID 1 MG TAB PO SCH (08:05)
[2022-12-26] MEDS: CALCIUM CARBONATE 1250MG TAB PO SCH ×2 (08:05→21:12)
[2022-12-26] MEDS: LANTUS PER UNIT CHARGE SC SCH (08:06)
[2022-12-26] MEDS: INSULIN ASPART PER UNIT CHARGE SC SCH ×4 (08:06→21:10)
[2022-12-26] MEDS: MAGNESIUM OXIDE 400 MG TAB PO SCH ×2 (08:07→21:10)
[2022-12-26] MEDS: DOCUSATE SODIUM 100 MG CAP PO SCH ×2 (09:19→21:14)
[2022-12-26] MEDS: POLYETHYLENE (MIRALAX) 17 GM PACK PO SCH (09:19)
--- NOTE | 2022-12-26 09:30 | Cardiology Progress Note ---
Date of Service December 26, 2022 Assessment & Plan (1) Ventricular tachycardia: (2) Hypokalemia: (3) Hypomagnesemia: (4) Acute non-ST elevation myocardial infarction (NSTEMI): Plan 1. Ventricular tachycardia: She had multiple runs of torsade de pointes which were of classic induction and morphology for metabolic derangement. This does not appear to be related to ischemia or scar related ventricular tachycardia. With correction of her metabolic abnormalities she has had no further arrhythmia. 2. Hypokalemia: She had severe hypokalemia on presentation, steps will need to be taken to keep this from occurring again. I do not fully understand why she became so hypokalemic, she was on oral potassium 20 mEq daily when she was admitted on October 17, 2022 and her potassium was slightly low, having been high in August when she appears to have been on the same outpatient dose of potassium. Perhaps this is primarily patient compliance, I would consider spironolactone 25 mg daily and not using potassium supplementation and close monitoring of potassium. 3. Hypomagnesemia: She had severe hypomagnesemia on presentation, steps will need to be taken to keep this from recurring again. She is on magnesium supplementation, perhaps spironolactone would help with this, but she will need close monitoring of magnesium as an outpatient. 4. NSTEMI: She had quite significant enzyme rise, on presentation her enzymes were not terribly high and the time course is somewhat worrisome for a cardiac event. Although she has coronary disease there does not appear to be significant progression and it does not appear that this was an ischemic event. Presumably it is demand ischemia in the setting of underlying coronary disease, based on her ST changes I think it is conceivable she had spasm or some other type of abnormality which resolved but I would not treat her differently. I would continue with risk factor modification. Admission and Anticipated Discharge Date Admission Date: December 19, 2022 Subjective She is feeling better today than in the past, although feels that she is still weak. She is doing well following catheterization with no right wrist discomfort. Physical Exam Physical Exam: Constitutional: Alert, cooperative and in no distress. Pulmonary: Clear to auscultation bilaterally. Cardiac: Regular rhythm with no murmur, gallop or rub. Abdomen: Soft, nontender with normal bowel sounds. Extremities: No edema. The right wrist is a little ecchymotic but the radial pulse is good with no hematoma. Skin: No rash, ecchymoses or petechiae. Results & Data Vital Signs (Past 12 Hours) Vital Signs Temp Pulse Pulse Resp BP BP Pulse Ox 12/26/22 07:51 69 12/26/22 07:44 12/26/22 07:31 36.3 C L 95 H 18 157/75 H 95 12/26/22 03:31 36.6 C 74 20 115/65 93 12/25/22 22:49 69 12/25/22 21:55 36.6 C 70 18 128/63 94 O2 Del Method 12/26/22 07:51 12/26/22 07:44 Room Air 12/26/22 07:31 Room Air 12/26/22 03:31 Room Air 12/25/22 22:49 12/25/22 21:55 Room Air Laboratory Results Comprehensive Metabolic Panel 12/26/22 Range/Units 06:46 Sodium 138 (136-145) mmol/L Potassium 4.7 (3.5-5.1) mmol/L Chloride 103 (98-107) mmol/L Carbon Dioxide 30 (21-32) mmol/L BUN 8 (6-23) mg/dl Creatinine 1.18 (0.6-1.2) mg/dl Glucose 195 H (70-99(Fasting)) mg/dl Calcium 8.0 L (8.6-10.3) mg/dl Intake and Output 12/25/22 12/26/22 12/26/22 22:59 06:59 14:59 Intake Total 765 / 865 Balance 765 / 864 Intake: IV 495 / 595 Sodium Chloride 0.9% 1,000 ml @ 495 / 495 100 mls/hr IV .Q10H [facility] Rx#: [id number] Oral 270 / 270 Other: Other Intake Source Sips # Unmeasured Voids 1 1 Weight 82.8 kg 83.5 kg Weight Measurement Method Standing Scale PG Care Time/CCT Total # of Minutes Spent Total Time Spent with Patient: Total time spent is greater than 50% in coordination of care (as documented) at patient's floor/unit and/or counseling patient: Coding Level of Care Code 87017 SUB INP/OBS CARE 3/50MIN Diagnoses Ventricular tachycardia I47.20 Hypokalemia E87.6 Hypomagnesemia E83.42 Acute non-ST elevation myocardial infarction (NSTEMI) I21.4
[2022-12-26] MEDS: TICAGRELOR 90 MG TAB PO SCH ×2 (09:31→21:14)
[2022-12-26] MEDS: ACETAMINOPHEN 325 MG TAB PO PRN (13:18)
--- NOTE | 2022-12-26 13:22 | Hospitalist Progress Note ---
Date of Service December 26, 2022 Assessment & Plan (1) Ventricular tachycardia: Plan: With episode of what was initially thought to be ventricular tachycardia in the ER now interpreted by cardiology as torsades. She required 1 shock and intubation, central line placement and aggressive electrolyte replacement Thought to be secondary to hypokalemia and also with significant hypocalcemia and prolonged QTc Initially was placed on IV amiodarone which has since been discontinued Cardiology initially did not recommend cardiac catheterization as cause of cardiac arrest likely being from hypokalemia Echocardiogram preserved EF ECGs significantly abnormal and now normal-QTc now normal Consult cardiology appreciated-given elevation of troponin, had cardiac cath-no intervention Continue to monitor on telemetry-no further arrhythmias She has a h/o polypharmacy and poor knowledge of medications she is taking at home-question if she overdosed on certain meds that prolong QTc? She also previously was on HCTZ and this was discontinued during previous stay for severe hypokalemia but perhaps she never threw it away and is taking it? She has no idea what medications she is taking. Patient does report she is thinking about [facility]. K+ normal,mag normal- continue po magnesium Hypocalcemia improved-continue po calcium Continue to hold home fluvoxamine, meclizine, hydroxyzine, and metoclopramide given prolonged QT Start aldactone 12.5mg po daily for hypokalemia Follow BMP, Mag (2) Shock: Plan: Started on Levophed in the ER, cardiogenic, no source of infection to suspect septic shock Now weaned off Levophed and blood pressures are normal, transferred out of the ICU on 12/22 (3) Hypokalemia: Plan: K 1.5 on arrival to the ER Suspect secondary to gastroparesis and vomiting as this has been a recurrent problem in the past although never quite this low As above, perhaps taking HCTZ and overdosing on QT prolongig meds? 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 twice daily Levels are improving Replace vitamin D-started 50,000 units once weekly given profoundly low vitamin D level Intact PTH elevated at 325-likely appropriate response to hypocalcemia (5) Vitamin D deficiency: Plan: Vitamin D level low at 8 causing hypocalcemia which may have also contributed to arrhythmia Replace with 50,000 units once weekly of vitamin D2 for 8 weeks (6) Hypomagnesemia: Plan: Mg level 1.1 on admission was replaced Keep at 2.0 or higher Continue po magnesium (7) Elevated troponin: Plan: Unclear if demand vs. NSTEMI. Troponin peaked at 1907 and back down Likely from demand ischemia from V. tach arrest and defibrillation Echocardiogram without wall motion abnormalities Continue home aspirin and Brilinta, atorvastatin Appreciate cardiology consultation-now s/p cardiac cath with patent stent and no intervention needed Medical management for CAD (8) Fall: Plan: With likely fall on left side and struck her face. No injuries on CT head, cervical spine, chest/abdo/pelvis Suspect weakness due to electrolytes imbalance PT/OT consults in place are recommending rehab She is having some stiffness all over body likely from injuries-Tylenol as needed for pain CK now normal (9) GERD (gastroesophageal reflux disease): Plan: Continue home famotidine and Protonix (10) S/P coronary artery stent placement: Plan: 2 CHANTAL to LAD 10/22/2020 Continue home ASA, Brilinta, atorvastatin Not on BB due to previous bradycardia (11) Elevated creatine kinase: Plan: Suspect due to elevated troponin rather than rhabdo, trended downward to 593 but given stiffness all over body, CK now normal (12) Hypothyroidism: Plan: TSH normal at 0.572 in 08/2022 Continue home levothyroxine (13) Diabetes mellitus type 2 in obese: Plan: Continue NovoLog and Lantus Uncontrolled, last hemoglobin A1c 10.2% 08/2022 and stable again at 10% Plan VTE Prophyalxis -Lovenox SQ Disposition - PT/OT is recommending rehab. There is a bed available at [facility] today and pt could go but she is refusing to leave hospital as she feels she needs to be stronger with her ability to walk before going to rehab. She also reports she will not leave the hospital tomorrow as she won't have a ride and she declines to have transportation arranged for her. Discussed care with [employer] Admission and Anticipated Discharge Date Admission Date: December 19, 2022 Subjective Pt denies nausea today, is eating. Reports she is not ready to leave the hospital until she is up and walking around, feeling stronger. Also reports she will not be able to be discharged tomorrow either because her rbother won't be able to drive her. She also reports she can't go to rehab until her brother gets her clothes from her house but then complains that her brother won't be able to get her the correct clothes. SHe becomes upset and says "don't you people listen to anything I say?!" Tele with NSR rates 60-70s Physical Exam Constitutional: WD/WN, vitals as above Respiratory: normal respiratory effort, lungs clear to auscultation Cardiovascular: Rate/Rhythm: regular rate and regular rhythm Heart Sounds: no murmur Extremities: no edema Psychiatric: Orientation: alert, oriented x 3 and cooperative Affect: + irritable affect Results & Data Results & Data Vital Signs (Past 12 Hours) Vital Signs Temp Pulse Pulse Resp BP BP Pulse Ox 12/26/22 11:27 36.5 C 68 18 108/68 94 12/26/22 07:51 69 12/26/22 07:44 12/26/22 07:31 36.3 C L 95 H 18 157/75 H 95 12/26/22 03:31 36.6 C 74 20 115/65 93 O2 Del Method 12/26/22 11:27 Room Air 12/26/22 07:51 12/26/22 07:44 Room Air 12/26/22 07:31 Room Air 12/26/22 03:31 Room Air Laboratory Results BMP, magnesium reviewed PG Care Time/CCT Total # of Minutes Spent Total Time Spent with Patient: Total time spent is greater than 50% in coordination of care (as documented) at patient's floor/unit and/or counseling patient: Coding Level of Care Code 20121 SUB INP/OBS CARE 2/35MIN Diagnoses Ventricular tachycardia I47.20 Shock R57.9 Hypokalemia E87.6 Hypocalcemia E83.51 Vitamin D deficiency E55.9 Hypomagnesemia E83.42 Elevated troponin R79.89 Fall W19.XXXA GERD (gastroesophageal reflux disease) K21.9 S/P coronary artery stent placement Z95.5 Elevated creatine kinase R74.8 Hypothyroidism, unspecified type E03.9 Hypothyroidism type: unspecified Diabetes mellitus type 2 in obese E11.69; E66.9 (12) Hypothyroidism Hypothyroidism type: unspecified Qualified Code(s): E03.9 - Hypothyroidism, unspecified
[2022-12-26] MEDS: ATORVASTATIN 40 MG TAB PO SCH (21:11)
[2022-12-26] MEDS: MELATONIN 3 MG TAB PO PRN (21:15)
[2022-12-26] MEDS: GLUCOSE 10 TAB/TUBE PO PRN ×2 (23:19→23:38)
[2022-12-27] MEDS: LEVOTHYROXINE SODIUM 88 MCG TABLET PO SCH (06:11)
[2022-12-27 07:40] LABS: BUN Creatinine Ratio 7.6 (10-20); Calcium 7.8 mg/dl (8.6-10.3); Creatinine Clr Calc Pharmacy 46.1 ml/min; Est GFR (African American) 56.8 ml/min; Magnesium 1.9 mg/dl (1.7-2.4); Potassium 4.6 mmol/L (3.5-5.1)
[2022-12-27] MEDS: INSULIN ASPART PER UNIT CHARGE SC SCH ×4 (08:13→20:10)
[2022-12-27] MEDS: LANTUS PER UNIT CHARGE SC SCH (08:14)
[2022-12-27] MEDS: CALCIUM CARBONATE 1250MG TAB PO SCH ×2 (08:15→20:08)
[2022-12-27] MEDS: SPIRONOLACTONE 12.5 MG TAB PO SCH (08:15)
[2022-12-27] MEDS: PANTOprazole 40 MG TAB PO SCH (08:15)
[2022-12-27] MEDS: MAGNESIUM OXIDE 400 MG TAB PO SCH ×2 (08:15→20:07)
[2022-12-27] MEDS: FAMOTIDINE 40 MG TABLET PO SCH ×2 (08:15→20:08)
[2022-12-27] MEDS: MULTIVITAMIN TAB PO SCH (08:15)
[2022-12-27] MEDS: ASPIRIN 81 MG ECTAB PO SCH (08:15)
[2022-12-27] MEDS: FOLIC ACID 1 MG TAB PO SCH (08:16)
[2022-12-27] MEDS: POLYETHYLENE (MIRALAX) 17 GM PACK PO SCH (08:16)
[2022-12-27] MEDS: DOCUSATE SODIUM 100 MG CAP PO SCH ×2 (08:16→20:08)
[2022-12-27] MEDS: ASCORBIC ACID 500 MG TAB PO SCH (08:16)
[2022-12-27] MEDS: ENOXAPARIN INJ 40 MG/0.4 ML SYR SQ SCH (08:16)
[2022-12-27] MEDS: TICAGRELOR 90 MG TAB PO SCH ×2 (10:25→20:11)
--- NOTE | 2022-12-27 17:24 | Hospitalist Progress Note ---
Date of Service December 27, 2022 Assessment & Plan (1) Ventricular tachycardia: Plan: With episode of what was initially thought to be ventricular tachycardia in the ER now interpreted by cardiology as torsades. She required 1 shock and intubation, central line placement and aggressive electrolyte replacement Thought to be secondary to hypokalemia and also with significant hypocalcemia and prolonged QTc Initially was placed on IV amiodarone which has since been discontinued Cardiology initially did not recommend cardiac catheterization as cause of cardiac arrest likely being from hypokalemia Echocardiogram preserved EF ECGs significantly abnormal and now normal-QTc now normal Consult cardiology appreciated-given elevation of troponin, had cardiac cath-no intervention Continue to monitor on telemetry-no further arrhythmias She has a h/o polypharmacy and poor knowledge of medications she is taking at home-question if she overdosed on certain meds that prolong QTc? She also previously was on HCTZ and this was discontinued during previous stay for severe hypokalemia but perhaps she never threw it away and is taking it? She has no idea what medications she is taking. Patient does report she is thinking about entering [facility] care or assisted living. K+ normal,mag normal- continue po magnesium Hypocalcemia improved-continue po calcium Continue to hold home fluvoxamine, meclizine, hydroxyzine, and metoclopramide given prolonged QT and likely would not restart any of these on discharge Started aldactone 12.5mg po daily for hypokalemia Follow BMP, Mag (2) Shock: Plan: Started on Levophed in the ER, cardiogenic, no source of infection to suspect septic shock Now weaned off Levophed and blood pressures are normal, transferred out of the ICU on 12/22 (3) Hypokalemia: Plan: K 1.5 on arrival to the ER Suspect secondary to gastroparesis and vomiting as this has been a recurrent problem in the past although never quite this low As above, perhaps taking HCTZ and overdosing on QT prolongig meds? 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 twice daily Levels are improving Replace vitamin D-started 50,000 units once weekly given profoundly low vitamin D level Intact PTH elevated at 325-likely appropriate response to hypocalcemia (5) Vitamin D deficiency: Plan: Vitamin D level low at 8 causing hypocalcemia which may have also contributed to arrhythmia Replace with 50,000 units once weekly of vitamin D2 for 8 weeks (6) Hypomagnesemia: Plan: Mg level 1.1 on admission was replaced Keep at 2.0 or higher Continue po magnesium (7) Elevated troponin: Plan: Unclear if demand vs. NSTEMI. Troponin peaked at 1907 and back down Likely from demand ischemia from V. tach arrest and defibrillation Echocardiogram without wall motion abnormalities Continue home aspirin and Brilinta, atorvastatin Appreciate cardiology consultation-now s/p cardiac cath with patent stent and no intervention needed Medical management for CAD (8) Fall: Plan: With likely fall on left side and struck her face. No injuries on CT head, cervical spine, chest/abdo/pelvis Suspect weakness due to electrolytes imbalance PT/OT consults in place are recommending rehab She is having some stiffness all over body likely from injuries-Tylenol as needed for pain CK now normal (9) GERD (gastroesophageal reflux disease): Plan: Continue home famotidine and Protonix (10) S/P coronary artery stent placement: Plan: 2 CHANTAL to LAD 10/22/2020 Continue home ASA, Brilinta, atorvastatin Not on BB due to previous bradycardia (11) Elevated creatine kinase: Plan: Suspect due to elevated troponin rather than rhabdo, trended downward to 593 but given stiffness all over body, CK now normal (12) Hypothyroidism: Plan: TSH normal at 0.572 in 08/2022 Continue home levothyroxine (13) Diabetes mellitus type 2 in obese: Plan: Continue NovoLog and Lantus Uncontrolled, last hemoglobin A1c 10.2% 08/2022 and stable again at 10% Plan VTE Prophyalxis -Lovenox SQ Disposition - PT/OT is recommending rehab. Plan [facility] dc [facility] tomorrow Admission and Anticipated Discharge Date Admission Date: December 19, 2022 Subjective Still feels stiff all over, no nausea. Had hypoglycemia overnight. Ambulated in halls today Tele with NSR normal rates Physical Exam Constitutional: WD/WN, vitals as above Respiratory: normal respiratory effort, lungs clear to auscultation Cardiovascular: Rate/Rhythm: regular rate and regular rhythm Heart Sounds: no murmur Extremities: no edema Gastrointestinal (Abdomen): normal bowel sounds, soft, nontender, no hepatosplenomegaly Psychiatric: A+Ox3, euthymic affect Orientation: cooperative Results & Data Results & Data Vital Signs (Past 12 Hours) Vital Signs Temp Pulse Pulse Resp BP Pulse Ox O2 Del Method 12/27/22 16:06 36.8 C 60 14 97/60 L 96 Room Air 12/27/22 15:47 81 12/27/22 11:00 36.4 C L 68 18 101/66 97 Room Air 12/27/22 07:23 36.4 C L 64 16 107/68 95 Room Air 12/27/22 07:15 62 Laboratory Results BMP, magnesium reviewed PG Care Time/CCT Total # of Minutes Spent Total Time Spent with Patient: Total time spent is greater than 50% in coordination of care (as documented) at patient's floor/unit and/or counseling patient: Coding Level of Care Code 71657 SUB INP/OBS CARE 2/35MIN Diagnoses Ventricular tachycardia I47.20 Shock R57.9 Hypokalemia E87.6 Hypocalcemia E83.51 Vitamin D deficiency E55.9 Hypomagnesemia E83.42 Elevated troponin R79.89 Fall W19.XXXA GERD (gastroesophageal reflux disease) K21.9 S/P coronary artery stent placement Z95.5 Elevated creatine kinase R74.8 Hypothyroidism, unspecified type E03.9 Hypothyroidism type: unspecified Diabetes mellitus type 2 in obese E11.69; E66.9 (12) Hypothyroidism Hypothyroidism type: unspecified Qualified Code(s): E03.9 - Hypothyroidism, unspecified
[2022-12-27] MEDS: ATORVASTATIN 40 MG TAB PO SCH (20:08)
[2022-12-28] MEDS: LEVOTHYROXINE SODIUM 88 MCG TABLET PO SCH (06:18)
[2022-12-28] MEDS: MAGNESIUM OXIDE 400 MG TAB PO SCH (08:29)
[2022-12-28] MEDS: MULTIVITAMIN TAB PO SCH (08:29)
[2022-12-28] MEDS: ASCORBIC ACID 500 MG TAB PO SCH (08:29)
[2022-12-28] MEDS: FAMOTIDINE 40 MG TABLET PO SCH (08:29)
[2022-12-28] MEDS: ENOXAPARIN INJ 40 MG/0.4 ML SYR SQ SCH (08:29)
[2022-12-28] MEDS: CALCIUM CARBONATE 1250MG TAB PO SCH (08:29)
[2022-12-28] MEDS: PANTOprazole 40 MG TAB PO SCH (08:29)
[2022-12-28] MEDS: ASPIRIN 81 MG ECTAB PO SCH (08:29)
[2022-12-28] MEDS: FOLIC ACID 1 MG TAB PO SCH (08:29)
[2022-12-28] MEDS: SPIRONOLACTONE 12.5 MG TAB PO SCH (08:29)
[2022-12-28] MEDS: DOCUSATE SODIUM 100 MG CAP PO SCH (08:30)
[2022-12-28] MEDS: POLYETHYLENE (MIRALAX) 17 GM PACK PO SCH (08:30)
[2022-12-28] MEDS: INSULIN ASPART PER UNIT CHARGE SC SCH ×2 (08:31→13:01)
[2022-12-28] MEDS: LANTUS PER UNIT CHARGE SC SCH (08:31)
[2022-12-28] MEDS: TICAGRELOR 90 MG TAB PO SCH (08:40)
[2022-12-28 08:45] LABS: Basophils # (auto) 0.02 K/uL (0.00-0.20); Basophils % (auto) 0.3 %; Eosinophils # (auto) 0.17 K/uL (0.00-0.50); Eosinophils % (auto) 2.3 %; Hematocrit (blood only) 38.2 % (37.0-47.0); Hemoglobin 12.2 g/dl (12.0-16.0); Immature Granulocytes # (auto) 0.03 K/uL (0.01-0.20); Immature Granulocytes % (auto) 0.4 %; Lymphocytes % (auto) 23.3 %; Mean Corpuscular Hemoglobin 28.7 pg (25.0-34.0); Mean Corpuscular Hgb Conc 31.9 g/dL (32.0-36.0); Mean Corpuscular Volume 89.9 fL (80.0-100.0); Mean Platelet Volume 11.1 fL (9.4-12.4); Monocytes # (auto) 0.44 K/uL (0.11-0.59); Neutrophils # (auto) 4.94 K/uL (1.40-6.50); Neutrophils % (auto) 67.7 %; Platelet Count 323 K/uL (130-400); RDW Coefficient of Variation 14.7 % (11.5-14.5); RDW Standard Deviation 48.5 fL (36.4-46.3); Red Blood Count 4.25 M/uL (4.20-5.40)
[2022-12-28 09:00] LABS: BUN Creatinine Ratio 8.3 (10-20); Calcium 8.8 mg/dl (8.6-10.3); Est GFR (African American) 55.7 ml/min; Est GFR (Non-African American) 48.1 ml/min; Magnesium 1.8 mg/dl (1.7-2.4); Potassium 4.3 mmol/L (3.5-5.1)
--- NOTE | 2022-12-28 12:24 | Discharge Summary ---
Date of Service December 28, 2022 Admission HPI Per Admitting Provider Yolanda Lua is a 62 year old female who presents to the ER for generalized weakness after being on the ground following a fall since 10pm last night. She has a significant history of gastroparesis and vomiting causing hypokalemia in the past. Potassium was 1.5 on arrival to the ER. In the ER she was complaining of chest pain and shortness of breath en route back from CT. Patient was noticed to be in ventricular tachycardia, she became obtunded and her blood pressure dropped therefore received x1 200J defibrillation shock and shortly afterwards went back into a sinus rhythm although with significant U wave and TWI present. She was started on amiodarone drip and intubated. Potassium chloride and magnesium sulfate infusing. She was getting a femoral line when seen. She was unable to give any history at this time. She has a notably history of CAD requiring stents in 2020. Noted prior notes with non-compliance to medications. Admission Exam Per Admitting Provider Constitutional: well developed; + not well nourished and no acute distress Eyes: PERRL, conjunctivae normal, anicteric sclerae Respiratory: normal respiratory effort; no respiratory distress Auscultation: + rhonchi (bilateral); breath sounds present, no diminished lung sounds and no wheezes Intubated and sedated Cardiovascular: Rate/Rhythm: regular rate and regular rhythm Heart Sounds: no murmur Extremities: + pedal edema; + abnormal capillary refill (central 2 seconds, peripheral 10 seconds) Gastrointestinal (Abdomen): Inspection/Auscultation: abdomen normal to inspection; abdomen not distended Percussion/Palpation: abdomen soft; abdomen nontender Skin: no rashes, warm and dry (no areas of cellulitis noted) Neurologic: + not awake (intubated and sedated) Principal Diagnosis Ventricular tachycardia Discharge Exam General: Well-appearing, NAD Cardiovascular: RRR, no M/R/G Pulmonary: CTAB, no W/R/R Abdomen: Soft, NT/ND, no guarding Extremities: Moving all extremities, no significant pedal edema Integumentary: No suspicious rash or lesion on exposed skin Neurologic: AAOx3, no focal deficits Psychiatric: Appropriate mood/affect Discharge Data Allergies Allergy/AdvReac Type Severity Reaction Status Date / Time dulaglutide [From [facility]] AdvReac Intermediate stomach Verified 11/15/22 16:15 pain albiglutide [From [facility]] AdvReac Unknown CAN'T Verified 11/15/22 16:15 REMEMBER Consultations 12/19/22 19:11 Consult Accounting Associate Stat ED Decision to Admit Stat 12/19/22 21:20 Consult Accounting Associate Routine 12/22/22 11:30 Consult Cardiology Routine Procedures Performed Operation Date: 12/25/22 11:00 Actual Procedures p Cath, Left with Cors and Vent - Omer Galvan MD s Cineradiography w/Routine Exam - Omer Galvan MD Ordered Studies 12/19/22 17:35 CT abd pelvis IV con only Stat CT cervical spine wo con Stat CT chest diagnostic w con Stat CT head/brain wo con Stat 12/25/22 11:00 CL Cath Imgs for PACS use only Routine Hospital Course (1) Ventricular tachycardia: (2) Shock: (3) Hypokalemia: (4) Hypocalcemia: (5) Vitamin D deficiency: (6) Elevated troponin: (7) Hypomagnesemia: (8) Fall: (9) GERD (gastroesophageal reflux disease): (10) S/P coronary artery stent placement: (11) Elevated creatine kinase: (12) Hypothyroidism: (13) Diabetes mellitus type 2 in obese: Plan (1) Ventricular tachycardia: Plan: With episode of what was initially thought to be ventricular tachycardia in the ER now interpreted by cardiology as torsades. She required 1 shock and intubation, central line placement and aggressive electrolyte replacement Thought to be secondary to hypokalemia and also with significant hypocalcemia and prolonged QTc Initially was placed on IV amiodarone which has since been discontinued Cardiology initially did not recommend cardiac catheterization as cause of cardiac arrest likely being from hypokalemia Echocardiogram preserved EF ECGs significantly abnormal and now normal-QTc now normal Consult cardiology appreciated-given elevation of troponin, had cardiac cath-no intervention She has a h/o polypharmacy and poor knowledge of medications she is taking at home-question if she overdosed on certain meds that prolong QTc? She also previously was on HCTZ and this was discontinued during previous stay for severe hypokalemia but perhaps she never threw it away and is taking it? She has poor understanding of what medications she is taking. K+ normal,mag normal- continue po magnesium Hypocalcemia improved-continue po calcium Continue to hold home fluvoxamine, meclizine, hydroxyzine, and metoclopramide given prolonged QT and would not restart any of these on discharge Started aldactone 12.5mg po daily for hypokalemia Will need close f/u BMP, Mag (2) Shock: Plan: Started on Levophed in the ER, cardiogenic, no source of infection to suspect septic shock Now weaned off Levophed and blood pressures are normal, transferred out of the ICU on 12/22 (3) Hypokalemia: Plan: K 1.5 on arrival to the ER Suspect secondary to gastroparesis and vomiting as this has been a recurrent problem in the past although never quite this low As above, perhaps taking HCTZ and overdosing on QT prolonging meds? 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 twice daily Levels improving Replace vitamin D-started 50,000 units once weekly given profoundly low vitamin D level Intact PTH elevated at 325-likely appropriate response to hypocalcemia (5) Vitamin D deficiency: Plan: Vitamin D level low at 8 causing hypocalcemia which may have also contributed to arrhythmia Replace with 50,000 units once weekly of vitamin D2 for 8 weeks (6) Hypomagnesemia: Plan: Mg level 1.1 on admission was replaced Keep at 2.0 or higher Continue po magnesium (7) Elevated troponin: Plan: Unclear if demand vs. NSTEMI. Troponin peaked at 1907 and back down Likely from demand ischemia from V. tach arrest and defibrillation Echocardiogram without wall motion abnormalities Continue home aspirin and Brilinta, atorvastatin Appreciate cardiology consultation-now s/p cardiac cath with patent stent and no intervention needed Medical management for CAD (8) Fall: Plan: With likely fall on left side and struck her face. No injuries on CT head, cervical spine, chest/abdo/pelvis Suspect weakness due to electrolytes imbalance PT/OT consults in place are recommending rehab - discharging to [facility] She is having some stiffness all over body likely from injuries-Tylenol as needed for pain CK normalized (9) GERD (gastroesophageal reflux disease): Plan: Continue home famotidine and Protonix (10) S/P coronary artery stent placement: Plan: 2 CHANTAL to LAD 10/22/2020 Continue home ASA, Brilinta, atorvastatin Not on BB due to previous bradycardia (11) Elevated creatine kinase: Plan: Suspect due to elevated troponin rather than rhabdo, trended downward to 593 but given stiffness all over body, CK now normal (12) Hypothyroidism: Plan: TSH normal at 0.572 in 08/2022 Continue home levothyroxine (13) Diabetes mellitus type 2 in obese: Plan: Uncontrolled, last hemoglobin A1c 10.2% 08/2022 and stable again at 10% Changed from home regimen to NovoLog and Lantus - will need ongoing management Total Time Total Time Spent Total Time Spent (In Minutes): 45 Total Time Includes: Examination of the Patient, Discharge Planning and Medication Reconciliation Discharge Plan Discharge Items Patient Disposition: [facility] Reason For Visit: UNSTABLE VENTRICULAR TACHY, OBTUNDED, SEVERE HYPOK Discharge Diagnosis: Ventricular tachycardia, hypokalemia, hypomagnesemia Activity: Resume your previous activity Non-emergency contact: Primary Care Provider and Music Coordinator Call non-emergency contact if: you have any medication questions and your symptoms worsen Follow-up/Referrals: Jc Zaman, [Primary Care Provider] - Diet: Carb Consistent or DM2 Addtl Attending Provider Instructions: You were admitted with an abnormal heart rhythm called ventricular tachycardia (specifically torsades de pointes). This required a defibrillation shock to help get your heart back to a normal rhythm. Your blood pressure was very low and required medications to make it better. And you were intubated with a breathing tube. This abnormal heart rhythm was due to multiple abnormal electrolytes including low potassium, low magnesium, low calcium, and low vitamin D. The abnormal heart rhythm also was likely due to an interaction of your home medications causing something called QT prolongation which can predispose to ventricular tachycardia. Eventually the breathing tube was removed as you got better during your hospital stay. You also had a cardiac catheterization while in the hospital due to the stress that was caused on your heart, but there did not appear to be any blockage of your major blood vessels (but some blockage in small vessels) or your prior stent. During your hospital stay, all of your electrolytes improved with appropriate medication treatment, and many of your medications were adjusted. In brief, your new medications include spironolactone, calcium carbonate, magnesium oxide, vitamin C, vitamin D, folate, multivitamin, and change of insulinall of these are outlined below. Your medications that were discontinued include fluvoxamine, hydroxyzine, meclizine, metoclopramide, and sucralfate. You are being discharged to [facility] for ongoing rehab to gain back your strength. Pending Studies at Discharge: No Stand-Alone Forms: My [facility] Skilled Items Patient informed of condition?: Yes DNR: No (Patient Full Code) Discharge Level of Care: Acute rehab Communicable Disease: No Discharge Prognosis: Stable Lines: None Urinary Catheter: No Medications and DC Order Prescriptions: New spironolactone 25 mg Tablet 12.5 mg PO DAILY 30 Days Qty: 15 0RF calcium carbonate-vitamin D3 [Os-Michael 500 + D3] 500 mg-15 mcg (600 unit) Tablet 2.5 tab PO BID Qty: 60 0RF magnesium oxide 400 mg (241.3 mg magnesium) Tablet 400 mg PO BID 30 Days Qty: 60 0RF insulin glargine [Lantus U-100 Insulin] 100 unit/mL Solution 10 unit SC DAILY Qty: 10 0RF insulin aspart U-100 [Novolog U-100 Insulin aspart] 100 unit/mL Solution See Rx Instructions .ROUTE .COMPLEX Qty: 10 0RF Rx Instructions: --Goal BSG Range: Low 110mg/dL, High 140mg/dL --Correction Factor: 25 mg/dL/unit --Carbohydrate ratio = 9 g/unit --BSGs ACHS if eating, q6h if npo ascorbic acid (vitamin C) [Vitamin C] 500 mg Tablet 1,000 mg PO QAM Qty: 60 0RF ergocalciferol (vitamin D2) 1,250 mcg (50,000 unit) Capsule See Rx Instructions .ROUTE .COMPLEX Qty: 7 0RF Rx Instructions: 50,000 unit orally once weekly for 8 weeks, first dose given 12/23/22 folic acid 1 mg Tablet 1 mg PO QAM Qty: 30 0RF multivitamin with folic acid [Daily-Seferino (with folic acid)] 400 mcg Tablet 1 tab PO QAM Qty: 30 0RF Continued (DME) pen needle, diabetic [BD Ultra-Fine Cary Pen Needle] 32 gauge x 5/32" needle See Dose Instructions .ROUTE .MEDSUPPLY Qty: 200 11RF Dose Instruction: As directed Rx Instructions: use 2 times daily or as directed by physician to monitor blood sugar atorvastatin 80 mg tablet 80 mg PO QPM Qty: 90 3RF (DME) blood-glucose meter [Prodigy Autocode Meter] Kit See Rx Instructions .Route Rx Instructions: As directed levothyroxine 88 mcg tablet 88 mcg PO DAILY Qty: 30 5RF betamethasone dipropionate 0.05 % cream 1 applic topical DIRECTED PRN (Reason: Skin Irritation) aspirin 81 mg Tablet,Delayed Release (Dr/Ec) 81 mg PO QAM Qty: 30 0RF Rx Instructions: Over the counter docusate sodium 100 mg Capsule 100 mg PO BID Qty: 60 0RF Rx Instructions: Over the counter polyethylene glycol 3350 [Miralax] 17 gram Powder In Packet 17 g PO DAILY Qty: 30 0RF Brilinta 90 mg tablet 90 mg PO BID Qty: 60 0RF famotidine 20 mg tablet 40 mg PO BID Rx Instructions: TAKES AT 1600 & 2400 pantoprazole 40 mg tablet,delayed release (DR/EC) 40 mg PO DAILY Rx Instructions: TAKE ONE TABLET BY MOUTH ONCE DAILY nystatin 100,000 unit/gram powder 1 applic topical BID PRN (Reason: Skin Irritation) acetaminophen [Tylenol Extra Strength] 500 mg tablet 1,000 mg PO TID PRN (Reason: Pain) Rx Instructions: OTC Discontinued sucralfate 1 gram tablet 1 g PO ACHS 30 Days Qty: 120 3RF metoclopramide HCl 5 mg tablet 5 mg PO AC Qty: 90 0RF Humulin R U-500 (Conc) Kwikpen 500 unit/mL (3 mL) insulin pen 10 - 20 unit subcut BID Qty: 6 5RF Rx Instructions: 20 units AM (~2-3pm) and 10-15 units PM (~8pm) or as directed hydroxyzine HCl 10 mg tablet 10 mg PO TID PRN (Reason: anxiety) Qty: 90 2RF meclizine 25 mg tablet 25 mg PO TID PRN (Reason: dizziness) Rx Instructions: for your dizziness fluvoxamine 50 mg tablet 50 mg PO HS Rx Instructions: TAKE 1 TABLET BY MOUTH ONCE DAILY AT BEDTIME Discharge Orders: Discharge Order (Routine); Ordered 12/28/22 Ordered By: Ginny Cope Admission Data Admit Date/Time: 12/19/22 19:29 Attending Provider: Ginny Cope Admit Provider: Demetrius Fair Primary Care Provider: Jc Zaman Other Providers: Declan Mohr; Demetrius Fair; Macho Gates; Remy Cabrera; [facility] Other Interventions: Discharge Summary Assessment (RN) Last Done: 12/28/22 12:38 Coding Level of Care Code 69448 INP/OBS DISCH >30 MIN Diagnoses Ventricular tachycardia I47.20 Shock R57.9 Hypokalemia E87.6 Hypocalcemia E83.51 Vitamin D deficiency E55.9 Elevated troponin R79.89 Hypomagnesemia E83.42 Fall W19.XXXA GERD (gastroesophageal reflux disease) K21.9 S/P coronary artery stent placement Z95.5 Elevated creatine kinase R74.8 Hypothyroidism, unspecified type E03.9 Hypothyroidism type: unspecified Diabetes mellitus type 2 in obese E11.69; E66.9
== END 2022-12-28 13:50 | DRG 280 ==
LOC: ED 17:30 → 1E 19:29 → SUATTDRO 19:29 → 1E 20:20 → 2S 12-22 18:46

== ENCOUNTER 2023-01-23 20:08 | Inpatient (IN) ==
[2023-01-23 20:56] LABS: Basophils # (auto) 0.04 K/uL (0.00-0.20); Basophils % (auto) 0.3 %; Eosinophils # (auto) 0.45 K/uL (0.00-0.50); Eosinophils % (auto) 3.5 %; Hematocrit (blood only) 43.4 % (37.0-47.0); Hemoglobin 15.2 g/dl (12.0-16.0); Immature Granulocytes # (auto) 0.06 K/uL (0.01-0.20); Immature Granulocytes % (auto) 0.5 %; Lymphocytes # (auto) 3.72 K/uL (1.20-3.40); Lymphocytes % (auto) 28.7 %; Mean Corpuscular Volume 82.8 fL (80.0-100.0); Mean Platelet Volume 10.8 fL (9.4-12.4); Monocytes # (auto) 0.67 K/uL (0.11-0.59); Monocytes % (auto) 5.2 %; Neutrophils # (auto) 8.02 K/uL (1.40-6.50); Neutrophils % (auto) 61.8 %; Platelet Count 427 K/uL (130-400); RDW Coefficient of Variation 13.3 % (11.5-14.5); RDW Standard Deviation 40.3 fL (36.4-46.3); Red Blood Count 5.24 M/uL (4.20-5.40); White Blood Count 12.96 K/ul (4.8-10.8)
[2023-01-23 21:36] LABS: Albumin Globulin Ratio 0.8 (0.9-2); Albumin Level 3.5 gm/dl (3.4-5.0); Bilirubin,Total 0.4 mg/dl (0.2-1.0); Calcium 9.2 mg/dl (8.6-10.3); Creatinine Clr Calc Pharmacy 45.2 ml/min; Est GFR (African American) 58.6 ml/min; Est GFR (Non-African American) 50.6 ml/min; Globulin 4.4 gm/dl (2.5-4.0); INR 0.9 (0.9-1.1); Partial Thromboplastin Ratio 0.8; Partial Thromboplastin Time 23 Seconds (21-31); Potassium 3.5 mmol/L (3.5-5.1); Total Protein 7.9 gm/dl (6.0-8.3); Troponin I High Sensitivity 9.4 pg/ml (0-14)
--- NOTE | 2023-01-23 21:56 | XRay Report ---
SINGLE VIEW CHEST CLINICAL HISTORY: Atypical chest pain. FINDINGS: An AP, portable, upright chest radiograph is compared to study dated 12/20/2022. The heart i s enlarged. The pulmonary vasculature is noncongested. Chronic interstitial thickening similar to pre vious. The lungs and pleural spaces are clear. No pneumothorax is seen. The skeletal structures are o steopenic. The bony thorax is grossly intact. IMPRESSION: Cardiomegaly with no active disease in the chest. ACT 112: Negative or not required by law. Electronically signed by: Lalito Cisse M.D. 01/23/2023 9:54 PM
--- NOTE | 2023-01-23 23:44 | Emergency Department Note ---
Impression & Plan Chest pain ED Provider Note NAME: ELIAN SORENSEN AGE: 62 SEX: F : 1960 ARRIVES VIA: Ambulance INFORMANT: Patient, ED PROVIDER(S): Kaela Marcos MD CHIEF COMPLAINT: Chest pain HPI: This is a 62-year-old female history of diabetes, recent NSTEMI, ventricular tachycardia and respiratory arrest/cardiac arrest presenting for chest pain. Patient states that for the past few days her chest pain has worsened. She notes that her chest pain has been persistent since shortly after leaving the hospital. She states it is left-sided rating into her arm. She notes she wakes up with nausea. She states she has occasional short of breath with this as well. She has had no significant change to causes worsening over the past 1 to 2 days. She notes no pleurisy, shortness of breath. ROS: See above HPI for pertinent positives & negatives. A total of 10 systems reviewed and were otherwise negative. PAST MEDICAL HISTORY: See Below PAST SURGICAL HISTORY: See Below FAMILY HISTORY: See Below SOCIAL HISTORY: See Below HOME MEDICATIONS: See Below ALLERGIES: See Below VITALS: See Below PHYSICAL EXAMINATION: General: resting comfortably in no acute distress Head: Normocephalic and atraumatic Eyes: Normal inspection, extraocular muscles intact Ear, nose, throat: Normal external exam Neck: Normal range of motion Respiratory: lungs clear to auscultation bilaterally Cardiovascular: Regular rate/rhythm, no murmur GI: soft, nontender, no guarding or rebound Extremities: nontender, moves all extremities Neuro: The patient awake and alert, appropriately conversive, no focal deficits, symmetric faces Skin: Warm, dry, and intact MEDICAL DECISION MAKING: This is a 62-year-old female history of diabetes, recent NSTEMI, ventricular tachycardia and respiratory/cardiac arrest presenting for chest pain. External records reviewed at this time, discharge summary from previous ventricular tachycardia/cardiac arrest in early December 2022. Patient at that time hypokalemia requiring shock, no cardiac catheterization was done at that time. Patient had persistent chest pain since discharge from her NSTEMI, cardiac arrest, due to the patient requires patient at this time despite negative blood work here including negative troponin. Does have a slight leukocytosis of 12.96, otherwise is hypertensive to 128, no transaminitis, no significant troponin elevation, COVID/flu negative Differential diagnosis: ACS, GERD, anxiety, low concern for PE clinically ER treatment provided: See below Diagnostics interpreted by me: ECG: ECG independently interpreted by me with normal sinus rhythm, rate of 86, normal MI, normal QRS, normal QTc, no ST segment elevations consistent with STEMI criteria Cardiac Monitoring: An order was placed for continuous cardiac monitoring. The monitor shows a rate of 83 with sinus rhythm Laboratory studies: As stated above and show below. Imaging studies: See below. Past Med/Surg History Medical History (Updated 01/24/23 @ 02:10 by Kaela Marcos MD) Chest pain Vitamin D deficiency Diabetes mellitus type 2 in obese Acute on chronic combined systolic and diastolic CHF (congestive heart failure) Nausea vomiting and diarrhea Bradycardia with 41-50 beats per minute Hyperglycemia Chest pain Hypokalemia Hypomagnesemia Accelerated hypertension Albuminuria Diabetic nephropathy associated with type 2 diabetes mellitus Depression Osteoarthritis Chronic headaches CAD (coronary artery disease) No remaining occlusive disease after 2 LAD drug eluting stents 10/22/20. Follows with Dr. Harris NSTEMI (non-ST elevated myocardial infarction) 10/22/2020 s/p 2 CHANTAL Vulvitis Diabetes type 2, uncontrolled IDDM Dyslipidemia Tobacco abuse Hypertension Hypothyroidism Obesity Anxiety Surgical History History of cardiac catheterization 10/22/2020 Dominant: Right Left Main (% Stenosis): Normal LAD (% Stenosis): Proximal (99) and Mid (75) Circumflex (% Stenosis): Normal (luminal irregularities) RCA (% Stenosis): Normal (Luminal irregularities) 2 CHANTAL to LAD S/P coronary artery stent placement 2 CHANTAL to LAD 10/22/2020 History of cholecystectomy History of dental surgery History of tonsillectomy Family History Unknown Diabetes Thyroid disorder Father Diabetes Other No family history of adverse response to anesthesia Denies family history of Ovarian cancer Prostate cancer Breast cancer Colorectal cancer Uterine cancer Social History Smoking Status: Current every day smoker Tobacco Type: Cigarettes packs per day: 0.5; Cigarettes Per Day: 10; Second Hand Exposure: No; Do You Dip or Chew Tobacco: No; Hx Alcohol Use: No Hx Substance Use: No Preferred Language: Indonesian Communication Ability: Effective Visual Impairment: No Limitations Occupational Health Nurse Required: No Beliefs That Will Affect Care: None marital status: Single Current Living Situation: Alone current occupational status: disabled How many Children do You have: 0 Feels Safe at Home: Yes Safety Concerns Comment: Gets nervous sometimes because she lives alone, gets shaky from anxiety Diet: regular caffeine: Yes Dental Care, Regularly: No Physical Activity Frequency: Does not Exercise Seatbelt Use: always Sunscreen Use: No Assistive Devices: Walker Allergies Allergies Allergy/AdvReac Type Severity Reaction Status Date / Time dulaglutide [From Trulicity] AdvReac Intermediate stomach Verified 01/23/23 23:13 pain albiglutide [From Tanzeum] AdvReac Unknown CAN'T Verified 01/23/23 23:13 REMEMBER Home Meds Home Medications Medication Instructions Recorded Confirmed blood-glucose meter (Prodigy 10/15/21 12/19/22 Autocode Meter kit) pantoprazole 40 mg tablet,delayed 40 mg PO DAILY 12/19/22 01/23/23 release acetaminophen 500 mg tablet 1,000 mg PO Q8H PRN Pain 01/23/23 01/23/23 (Pharbetol) atorvastatin 80 mg tablet 80 mg PO HS 01/23/23 01/23/23 calcium carbonate 500 mg-vitamin 2 tab PO BID 01/23/23 01/23/23 D3 15 mcg (600 unit) tablet (Os-Michael 500 + D3) ergocalciferol (vitamin D2) 1,250 50,000 unit PO WK 01/23/23 01/23/23 mcg (50,000 unit) capsule insulin glargine 100 unit/mL 20 unit SC HS 01/23/23 01/23/23 subcutaneous solution (Lantus U-100 Insulin) insulin regular hum U-500 conc 500 4 unit subcut DIRECTED 01/23/23 01/23/23 unit/mL(3 mL) subcut pen (Humulin R U-500 (Conc) Insulin Kwikpen) magnesium hydroxide 400 mg/5 mL 30 ml PO DAILY PRN Constipation 01/23/23 01/23/23 oral suspension (Milk of Magnesia) sennosides 8.6 mg-docusate sodium 1 tab-cap PO DAILY PRN Constipation 01/23/23 01/23/23 50 mg tablet (Senokot-S) spironolactone 25 mg tablet 25 mg PO DAILY 01/23/23 01/23/23 Previous Rx's Medication Instructions Recorded levothyroxine 88 mcg tablet 88 mcg PO DAILY #30 tabs 10/15/21 pen needle, diabetic 32 gauge x #200 ea 06/28/22" (BD Ultra-Fine Cary Pen Needle) aspirin 81 mg tablet,delayed 81 mg PO QAM #30 tabs 10/29/22 release docusate sodium 100 mg capsule 100 mg PO BID #60 caps 10/29/22 polyethylene glycol 3350 17 gram 17 g PO DAILY #30 ea 10/29/22 oral powder packet (Miralax) ticagrelor 90 mg tablet (Brilinta) 90 mg PO BID #60 tabs 10/29/22 ascorbic acid (vitamin C) 500 mg 1,000 mg (2 x 500 mg) PO QAM #60 12/28/22 tablet (Vitamin C) tabs multivitamin with folic acid 400 1 tab PO QAM #30 tabs 12/28/22 mcg tablet (Daily-Seferino (with folic acid)) folic acid 1 mg tablet 1 mg PO QAM #30 tabs 01/22/23 magnesium oxide 400 mg (241.3 mg 400 mg PO BID 90 days #180 tabs 01/22/23 magnesium) tablet Results & Data (ED) Vital Signs Vital Signs - 24 hr 01/23/23 20:11 01/23/23 20:14 01/23/23 22:13 Temperature 36 C L Temperature Source Temporal Artery Scan Pulse Rate 81 77 Pulse Rate [Apical] Respiratory Rate 18 Respiratory Effort / Characteristics Non-Labored Spontaneous Non-Labored Spontaneous Respiratory Depth Normal Normal Respiratory Pattern Blood Pressure 113/75 Blood Pressure [Right Arm] Blood Pressure Mean 87 Blood Pressure Mean [Right Arm] Pulse Oximetry 97 Oxygen Delivery Method Room Air Sepsis Recent Fever Within 48 Hours No Sepsis New/Unexplained Change in Mental Status No Sepsis Action Taken by Nursing No Action Required 01/23/23 23:29 Temperature Temperature Source Pulse Rate Pulse Rate [Apical] 76 Respiratory Rate 17 Respiratory Effort / Characteristics Non-Labored Spontaneous Respiratory Depth Normal Respiratory Pattern Regular Blood Pressure Blood Pressure [Right Arm] 118/71 Blood Pressure Mean Blood Pressure Mean [Right Arm] 86 Pulse Oximetry Oxygen Delivery Method Sepsis Recent Fever Within 48 Hours Sepsis New/Unexplained Change in Mental Status Sepsis Action Taken by Nursing Laboratory Data 01/23/23 20:26 01/23/23 20:26 Lab Results 01/23/23 01/23/23 01/24/23 Range/Units 20:26 23:57 00:13 WBC 12.96 H (4.8-10.8) K/ul RBC 5.24 (4.20-5.40) M/uL Hgb 15.2 (12.0-16.0) g/dl Hct 43.4 (37.0-47.0) % MCV 82.8 (80.0-100.0) fL MCH 29.0 (25.0-34.0) pg MCHC 35.0 (32.0-36.0) g/dL RDW Std Deviation 40.3 (36.4-46.3) fL RDW Coeff of Umair 13.3 (11.5-14.5) % Plt Count 427 H (130-400) K/uL MPV 10.8 (9.4-12.4) fL Immature Gran % (Auto) 0.5 % Neut % (Auto) 61.8 % Lymph % (Auto) 28.7 % [place] % (Auto) 5.2 % Eos % (Auto) 3.5 % Baso % (Auto) 0.3 % Neut # (Auto) 8.02 H (1.40-6.50) K/uL Lymph # (Auto) 3.72 H (1.20-3.40) K/uL [place] # (Auto) 0.67 H (0.11-0.59) K/uL Eos # (Auto) 0.45 (0.00-0.50) K/uL Baso # (Auto) 0.04 (0.00-0.20) K/uL Immature Gran # (Auto) 0.06 (0.01-0.20) K/uL PT 10.0 (9.0-12.0) Seconds INR 0.9 (0.9-1.1) APTT 23 (21-31) Seconds PTT Ratio 0.8 Sodium 128 L (136-145) mmol/L Potassium 3.5 (3.5-5.1) mmol/L Chloride 96 L (98-107) mmol/L Carbon Dioxide 21 (21-32) mmol/L Anion Gap 11 (3-11) BUN 8 (6-23) mg/dl Creatinine 1.15 (0.6-1.2) mg/dl Est Cr Clr Drug Dosing 45.2 ml/min Est GFR ( Amer) 58.6 ml/min Est GFR (Non-Af Amer) 50.6 ml/min BUN/Creatinine Ratio 7.0 L (10-20) Glucose 376 H* (70-99(Fasting)) mg/dl POC Glucose 238 H (70-99) mg/dl Calcium 9.2 (8.6-10.3) mg/dl Total Bilirubin 0.4 (0.2-1.0) mg/dl AST 12 L (13-39) U/L ALT 11 (7-52) U/L Alkaline Phosphatase 133 H (34-104) U/L Troponin I High Sens 9.4 (0-14) pg/ml Total Protein 7.9 (6.0-8.3) gm/dl Albumin 3.5 (3.4-5.0) gm/dl Globulin 4.4 H (2.5-4.0) gm/dl Albumin/Globulin Ratio 0.8 L (0.9-2) SARS-CoV-2 (PCR) NEGATIVE (Negative) Influenza Type A (PCR) Negative (Neg) Influenza Type B (PCR) Negative (Neg) RSV (RT-PCR) Negative (Neg) Imaging Data Radiologist's Impression: Chest X-Ray 01/23/23 20:15 SINGLE VIEW CHEST CLINICAL HISTORY: Atypical chest pain. FINDINGS: An AP, portable, upright chest radiograph is compared to study dated 12/20/2022. The heart is enlarged. The pulmonary vasculature is noncongested. Chronic interstitial thickening similar to previous. The lungs and pleural spaces are clear. No pneumothorax is seen. The skeletal structures are osteopenic. The bony thorax is grossly intact. IMPRESSION: Cardiomegaly with no active disease in the chest. ACT 112: Negative or not required by law. Electronically signed by: Lalito Cisse M.D. 01/23/2023 9:54 PM Discharge Plan Visit Data Chief Complaint: Cardiac Assessment Stated Complaint: CHEST PAIN, SOB ED Provider: Kaela Marcos Discharge Problem: Chest pain Discharge Instructions Interventions: ED Discharge Assessment Last Done: 01/24/23 01:35
[2023-01-24 00:59] LABS: Influenza A virus by PCR Negative (Neg); Influenza B virus by PCR Negative (Neg); RSV by PCR Negative (Neg); SARS CoV2 RNA(COVID-19) Ceph NEGATIVE (Negative)
[2023-01-24] MEDS ORDERED: FAMOTIDINE 20MG IV PUSH 20 MG/5 ML SYR IV STA (01:27)
--- NOTE | 2023-01-24 01:28 | History & Physical Report ---
Date of Service January 24, 2023 Assessment & Plan (1) Chest pain: Plan: -Pt with known CAD and 1 month removed from cardiac arrest presents with intermittent chest pain becoming constant over past 3 days -Initial EKG without ischemic signs, troponin negative x1 -Will obtain 1 more troponin with AM labs -Given pt's report of burning sensation in throat with chest pain, suspect reflux/GI may drive her symptoms -Deferring TTE as she had last in 12/2022 with EF 60+ and no WMA -Deferring cardiology consult for now -Telemetry monitoring (2) Leukocytosis: Plan: -WBC 13 on admission -Possibly stress demargination as pt's clinical history does not suggest infection, CXR does not demonstrate pneumonia either -Will obtain procalcitonin with AM labs -Continue to monitor (3) Hyponatremia: Plan: -Na 128 on admission -Possibly due to poor solute intake over past 3 days -Fluid repletion ongoing -Monitor BMP (4) Hyperglycemia: Plan: -BSG 376 on admission, recheck of 238 -Likely stress hyperglycemia -Continue to monitor as pt begins basal/bolus insulin in hospital (5) GERD (gastroesophageal reflux disease): Plan: -Continue pantoprazole (6) Hypothyroidism: Plan: -Continue levothyroxine (7) Hypertension: Plan: -Noted history of such but not on any antihypertensives -BP stable for now -Continue to monitor -Deferring initiation of ELHAM/ARB or other antihypertensive to day team/PCP (8) CAD (coronary artery disease): Plan: -Unlikely to have ACS at present given negative troponin and reassuring EKG -Continue aspirin, Brillinta, atorvastatin (9) Dyslipidemia: Plan: -Continue atorvastatin (10) Congestive heart failure: Plan: -I do not suspect an acute exacerbation currently given pt's lung exam and euvolemic status -Continue spironolactone (11) Diabetes mellitus: Plan: -Uncontrolled DM with last A1C of 10% in 12/2022 -Lantus, SSI in hospital Plan FENGI: Heart healthy, DM2 Code status: Full DVT prophylaxis: Lovenox Isolation: None Unit: Medical/surgical with telemetry Disposition planning: Likely home History of Present Illness Chief Complaint: Chest pain Primary Care Provider: Jc Zaman, DO Pt is 62 yo F with PMH CAD s/p CHANTAL x2, HFpEF, HTN, HLD, DM2, tobacco use disorder, hypothyroidism, previous hospitalization 11/2-12/28 at [facility] for fall w/ cardiac arrest 2/2 ventricular tachycardia presenting with chest pain. Pt reports intermittent substernal L sided crushing chest pain of 7/10 severity with radiation to L arm since her discharge on 12/18 but this has become far more frequent and largely constant for past 3 days. Chest pain is associated with exertional dyspnea as well. Pt has not eaten much over past 3 days due to this pain. Denies fever, chills, cough, palpitations. She does feel sensation of burning in her throat when the chest pain occurs fairly consistently. Pt arrived to ER hemodynamically stable. Initial evaluation significant for WBC 13, Na 128, glucose 376 -> 238. Negative CXR, negative troponin. ER interventions include famotidine 20 mg IV ordered by admitting hospitalist. At present, pt reports continued chest pain but no new complaints. Allergies Allergy/AdvReac Type Severity Reaction Status Date / Time dulaglutide [From Trulicity] AdvReac Intermediate stomach Verified 01/23/23 23:13 pain albiglutide [From Tanzeum] AdvReac Unknown CAN'T Verified 01/23/23 23:13 REMEMBER Home Medications Medication Instructions Recorded Confirmed Type blood-glucose meter (Prodigy 10/15/21 12/19/22 History Autocode Meter kit) levothyroxine 88 mcg tablet 88 mcg PO DAILY #30 tabs 10/15/21 01/23/23 Rx pen needle, diabetic 32 gauge x #200 ea 06/28/22 12/19/22 Rx 5/32" (BD Ultra-Fine Cary Pen Needle) aspirin 81 mg tablet,delayed 81 mg PO QAM #30 tabs 10/29/22 01/23/23 Rx release docusate sodium 100 mg capsule 100 mg PO BID #60 caps 10/29/22 01/23/23 Rx polyethylene glycol 3350 17 gram 17 g PO DAILY #30 ea 10/29/22 01/23/23 Rx oral powder packet (Miralax) ticagrelor 90 mg tablet (Brilinta) 90 mg PO BID #60 tabs 10/29/22 01/23/23 Rx pantoprazole 40 mg tablet,delayed 40 mg PO DAILY 12/19/22 01/23/23 History release ascorbic acid (vitamin C) 500 mg 1,000 mg (2 x 500 mg) PO QAM #60 12/28/22 01/23/23 Rx tablet (Vitamin C) tabs multivitamin with folic acid 400 1 tab PO QAM #30 tabs 12/28/22 01/23/23 Rx mcg tablet (Daily-Seferino (with folic acid)) folic acid 1 mg tablet 1 mg PO QAM #30 tabs 01/22/23 01/23/23 Rx magnesium oxide 400 mg (241.3 mg 400 mg PO BID 90 days #180 tabs 01/22/23 01/23/23 Rx magnesium) tablet acetaminophen 500 mg tablet 1,000 mg PO Q8H PRN Pain 01/23/23 01/23/23 History (Pharbetol) atorvastatin 80 mg tablet 80 mg PO HS 01/23/23 01/23/23 History calcium carbonate 500 mg-vitamin 2 tab PO BID 01/23/23 01/23/23 History D3 15 mcg (600 unit) tablet (Os-Michael 500 + D3) ergocalciferol (vitamin D2) 1,250 50,000 unit PO WK 01/23/23 01/23/23 History mcg (50,000 unit) capsule insulin glargine 100 unit/mL 20 unit SC HS 01/23/23 01/23/23 History subcutaneous solution (Lantus U-100 Insulin) insulin regular hum U-500 conc 500 4 unit subcut DIRECTED 01/23/23 01/23/23 History unit/mL(3 mL) subcut pen (Humulin R U-500 (Conc) Insulin Kwikpen) magnesium hydroxide 400 mg/5 mL 30 ml PO DAILY PRN Constipation 01/23/23 01/23/23 History oral suspension (Milk of Magnesia) sennosides 8.6 mg-docusate sodium 1 tab-cap PO DAILY PRN Constipation 01/23/23 01/23/23 History 50 mg tablet (Senokot-S) spironolactone 25 mg tablet 25 mg PO DAILY 01/23/23 01/23/23 History Past Med/Surg History Medical History (Updated 01/24/23 @ 16:14 by Fatmata Browne) Chest pain Vitamin D deficiency Diabetes mellitus type 2 in obese Acute on chronic combined systolic and diastolic CHF (congestive heart failure) Nausea vomiting and diarrhea Bradycardia with 41-50 beats per minute Hyperglycemia Chest pain Hypokalemia Hypomagnesemia Accelerated hypertension Albuminuria Diabetic nephropathy associated with type 2 diabetes mellitus Depression Osteoarthritis Chronic headaches CAD (coronary artery disease) No remaining occlusive disease after 2 LAD drug eluting stents 10/22/20. Follows with Dr. Harris NSTEMI (non-ST elevated myocardial infarction) 10/22/2020 s/p 2 CHANTAL Vulvitis Diabetes type 2, uncontrolled IDDM Dyslipidemia Tobacco abuse Hypertension Hypothyroidism Obesity Anxiety Surgical History History of cardiac catheterization 10/22/2020 Dominant: Right Left Main (% Stenosis): Normal LAD (% Stenosis): Proximal (99) and Mid (75) Circumflex (% Stenosis): Normal (luminal irregularities) RCA (% Stenosis): Normal (Luminal irregularities) 2 CHANTAL to LAD S/P coronary artery stent placement 2 CHANTAL to LAD 10/22/2020 History of cholecystectomy History of dental surgery History of tonsillectomy Family History Unknown Diabetes Thyroid disorder Father Diabetes Other No family history of adverse response to anesthesia Denies family history of Ovarian cancer Prostate cancer Breast cancer Colorectal cancer Uterine cancer Social History Smoking Status: Current every day smoker Tobacco Type: Cigarettes packs per day: 0.5; Cigarettes Per Day: 10; Second Hand Exposure: No; Do You Dip or Chew Tobacco: No; Hx Alcohol Use: No Hx Substance Use: No Preferred Language: Hungarian Communication Ability: Effective Visual Impairment: No Limitations Eradicator Required: No Beliefs That Will Affect Care: None marital status: Single Current Living Situation: Alone current occupational status: disabled How many Children do You have: 0 Other Information That Helps Us Care for You: No Feels Safe at Home: Yes Safety Concerns: Feels Safe At This Time Safety Concerns Comment: Gets nervous sometimes because she lives alone, gets shaky from anxiety Diet: regular caffeine: Yes Dental Care, Regularly: No Physical Activity Frequency: Does not Exercise Seatbelt Use: always Sunscreen Use: No Assistive Devices: Walker Assistive Devices Comment: uses walker at times Review of Systems Review of Systems: Per HPI/Subjective Physical Exam Physical Exam: General: well-appearing, no acute distress HEENT: PERRL, EOMI, conjunctivae clear without injection, anicteric sclerae, moist mucous membranes, clear oropharynx without exudate or erythema Neck: supple, trachea midline, no thyromegaly, no JVD, no cervical lymphadenopathy CV: RRR, normal S1 and S2, no murmurs Resp: CTAB, no increased work of breathing, no crackles or wheezes Abd: Soft, nontender, nondistended, no guarding or rebound, no hepatosplenomegaly MSK: Normal bulk of all four extremities. No reproducible chest pain with sternal pressure Neuro: AOx3, no focal motor or sensory deficits Skin: no rashes or lesions, warm and dry Ext: no LE peripheral edema or erythema, capillary refill <2s in all four ext remities, 2+ LE peripheral pulses b/l Results & Data Results & Data Vital Signs (Past 12 Hours) Vital Signs Temp Pulse Pulse Resp BP BP Pulse Ox 01/23/23 23:29 76 17 118/71 01/23/23 22:13 77 01/23/23 20:11 36 C L 81 18 113/75 97 O2 Del Method 01/23/23 23:29 01/23/23 22:13 01/23/23 20:11 Room Air Code Status & VTE Plan VTE Prophylaxis Plan VTE Prophylaxis will be ordered: Yes Supervising Physician Co-Signing Physician Notes Attending addendum: I have physically seen this patient, have supervised the medical residents activities, and agree with the H&P unless as otherwise noted. Assessment and Plan: Chest pain/CAD/cardiac arrest on 12-19-2022/V. tach- The patient will be admitted to telemetry for serial cardiac enzymes, serial EKG's, cardiac rhythm monitoring Continue aspirin, Brilinta, mag oxide, and spironolactone Consult cardiology Hyperglycemia in diabetes mellitus- Lantus insulin as noted, SSI as noted Check hemoglobin A1c Hyponatremia- Sodium 128 on admission IV fluid resuscitation Recheck laboratories in a.m. Remaining orders and notations as noted Resident Activity Tracking Resident Involvement: Resident Care Provided Care Provided: Adult Hospital Medicine (6) Hypothyroidism Hypothyroidism type: unspecified Qualified Code(s): E03.9 - Hypothyroidism, unspecified (8) CAD (coronary artery disease) Associated angina: unspecified whether angina present Coronary Disease- Associated Artery/Lesion type: [place] artery [place] vs. transplanted heart: [place]icia heart Qualified Code(s): I25.10 - Atherosclerotic heart disease of [place] coronary artery without angina pectoris
[2023-01-24] MEDS ORDERED: GLUCAGON FOR INJ 1 MG VIAL SQ PRN (02:07)
[2023-01-24] MEDS ORDERED: CARBOHYDRATES FOR HYPOGLYCEMIA PO PRN (02:07)
[2023-01-24] MEDS ORDERED: MAGNESIUM HYDROXIDE SUSP 30 ML UDC PO PRN (02:07)
[2023-01-24] MEDS ORDERED: SODIUM CHLORIDE 0.9% 500 ML IV SCH (02:07)
[2023-01-24] MEDS ORDERED: DEXTROSE 50% 50 ML SYRINGE IV PRN (02:07)
[2023-01-24] MEDS ORDERED: GLUCOSE 10 TAB/TUBE PO PRN (02:07)
[2023-01-24] MEDS ORDERED: GLUCOSE 40% GEL 15 GM TUBE PO PRN (02:07)
[2023-01-24] MEDS ORDERED: PNEUMOCOCCAL VACCINE (PCV20) 20-VAL CONJ-DIP CRM/PF 0.5 ML SYR IM ONE (02:48)
[2023-01-24] MEDS ORDERED: INFLUENZA VIRUS QUADRIVALENT VACCINE (IIV4) 0.5 ML SYR IM ONE (02:48)
[2023-01-24] MEDS: LEVOTHYROXINE SODIUM 88 MCG TABLET PO SCH (05:56)
[2023-01-24 06:36] LABS: Hematocrit (blood only) 36.8 % (37.0-47.0); Hemoglobin 12.7 g/dl (12.0-16.0); Mean Corpuscular Hemoglobin 29.3 pg (25.0-34.0); Mean Corpuscular Hgb Conc 34.5 g/dL (32.0-36.0); Mean Corpuscular Volume 84.8 fL (80.0-100.0); Mean Platelet Volume 10.8 fL (9.4-12.4); Platelet Count 300 K/uL (130-400); RDW Coefficient of Variation 13.4 % (11.5-14.5); RDW Standard Deviation 42.1 fL (36.4-46.3); Red Blood Count 4.34 M/uL (4.20-5.40); White Blood Count 13.28 K/ul (4.8-10.8)
--- NOTE | 2023-01-24 06:58 | Hospitalist Progress Note ---
Date of Service January 24, 2023 Assessment & Plan Plan (1) Chest pain -Pt with known CAD and 1 month removed from cardiac arrest presents with intermittent chest pain becoming constant over past 3 days -Initial EKG without ischemic signs and NSR, troponin negative x1 -Will obtain 1 more troponin with AM labs -Given pt's report of burning sensation in throat with chest pain, suspect reflux/GI may drive her symptoms -Deferring TTE as she had last in 12/2022 with EF 60+ and no WMA -Deferring cardiology consult for now -Telemetry monitoring (2) Leukocytosis -WBC 13.0 on admission, 13.3 next AM -Possibly stress demargination as pt's clinical history does not suggest infection, CXR does not demonstrate pneumonia either -Will obtain procalcitonin with AM labs -Continue to monitor (3) Hyponatremia -Na 128 on admission -Possibly due to poor solute intake over past 3 days -Fluid repletion ongoing -Monitor BMP (4) Hyperglycemia -BSG 376 on admission, recheck of 238 -Likely stress hyperglycemia -Continue to monitor as pt begins basal/bolus insulin in hospital (5) GERD (gastroesophageal reflux disease) -Continue pantoprazole - Hx of GERD? Tx'ed before? (6) Hypothyroidism -Continue levothyroxine (7) Hypertension -Noted history of such but not on any antihypertensives -BP stable for now -Continue to monitor -Deferring initiation of ELHAM/ARB or other antihypertensive to day team/PCP (8) CAD (coronary artery disease) -Unlikely to have ACS at present given negative troponin and reassuring EKG -Continue aspirin, Brillinta, atorvastatin (9) Dyslipidemia -Continue atorvastatin (10) Congestive heart failure -I do not suspect an acute exacerbation currently given pt's lung exam and euvolemic status -Continue spironolactone - next AM BNP, 46 (11) Diabetes mellitus -Uncontrolled DM with last A1C of 10% in 12/2022 -Lantus, SSI in hospital Plan FENGI: Heart healthy, DM2 Code status: Full DVT prophylaxis: Lovenox Isolation: None Unit: Medical/surgical with telemetry Disposition planning: Likely home Admission and Anticipated Discharge Date Admission Date: January 24, 2023 Subjective Chief Complaint: Chest pain Primary Care Provider: Jc Zaman, Pt is 62 yo F with PMHx CAD s/p CHANTAL x2, HFpEF, HTN, HLD, T2DM, tobacco use disorder, hypothyroidism, previous hospitalization 12/19-12/28 at [facility] for fall w/ cardiac arrest 2/2 ventricular tachycardia presenting with chest pain. Pt reports intermittent substernal L sided crushing chest pain of 7/10 severity with radiation to L arm since her discharge on 12/18 but this has become far more frequent and largely constant for past 3 days. Chest pain is associated with exertional dyspnea as well. Pt has not eaten much over past 3 days due to this pain. Denies fever, chills, cough, palpitations. She does feel sensation of burning in her throat when the chest pain occurs fairly consistently. Pt arrived to ER hemodynamically stable. Initial evaluation significant for WBC 13, Na 128, glucose 376 -> 238. Negative CXR, negative troponin. ER interventions include famotidine 20 mg IV ordered by admitting hospitalist. At present, pt reports continued chest pain but no new complaints. Pt has uncontrolled diabetes and has been told she has gastroparesis but did not know date of diagnosis and is not currently receiving tx for it. Pt's l. chest pain w/ radiation to l. shoulder/upper arm seems to have a component of MSK pain, reproducible on palpation, to it. Results & Data Results & Data Vital Signs (Past 12 Hours) Vital Signs Temp Pulse Pulse Resp BP BP Pulse Ox 01/24/23 02:09 82 01/24/23 02:05 36.6 C 82 18 120/77 99 01/24/23 01:35 81 19 01/23/23 23:29 76 17 118/71 01/23/23 22:13 77 01/23/23 20:11 36 C L 81 18 113/75 97 O2 Del Method 01/24/23 02:09 01/24/23 02:05 Room Air 01/24/23 01:35 Room Air 01/23/23 23:29 01/23/23 22:13 01/23/23 20:11 Room Air Resident Activity Tracking Resident Involvement: Resident Care Provided Care Provided: Adult Hospital Medicine
[2023-01-24 07:13] LABS: Calcium 8.2 mg/dl (8.6-10.3); Creatinine Clr Calc Pharmacy 47.7 ml/min; Est GFR (African American) 62.6 ml/min; Potassium 4.1 mmol/L (3.5-5.1)
[2023-01-24 07:15] LABS: Troponin I High Sensitivity 7.8 pg/ml (0-14)
[2023-01-24] MEDS: ASPIRIN 81 MG ECTAB PO SCH (08:18)
[2023-01-24] MEDS: SPIRONOLACTONE 25 MG TAB PO SCH (08:18)
[2023-01-24] MEDS: FOLIC ACID 1 MG TAB PO SCH (08:18)
[2023-01-24] MEDS: DOCUSATE SODIUM 100 MG CAP PO SCH ×2 (08:18→21:39)
[2023-01-24] MEDS: MAGNESIUM OXIDE 400 MG TAB PO SCH ×2 (08:18→21:40)
[2023-01-24] MEDS: PANTOprazole 40 MG TAB PO SCH (08:18)
[2023-01-24] MEDS: TICAGRELOR 90 MG TAB PO SCH ×2 (08:18→21:41)
[2023-01-24] MEDS: ENOXAPARIN INJ 40 MG/0.4 ML SYR SQ SCH (08:19)
[2023-01-24] MEDS ORDERED: ONDANSETRON 4 MG OD TAB PO PRN (08:52)
[2023-01-24] MEDS: INSULIN ASPART PER UNIT CHARGE SC SCH ×4 (09:18→22:03)
[2023-01-24] MEDS: LANTUS PER UNIT CHARGE SQ SCH ×2 (09:18→22:01)
--- NOTE | 2023-01-24 12:33 | Electrocardiogram Report ---
Test Reason : Blood Pressure : / mmHG Vent. Rate : 086 BPM Atrial Rate : 086 BPM P-R Int : 140 ms QRS Dur : 064 ms QT Int : 394 ms P-R-T Axes : 039 027 064 degrees QTc Int : 471 ms Poor data quality, interpretation may be adversely affected Normal sinus rhythm Low voltage QRS Borderline ECG When compared with ECG of 24-DEC-2022 08:19, T wave amplitude has increased in Inferior leads T wave amplitude has increased in Lateral leads Confirmed by King Paul ([id number]) on 01/24/2023 12:32:59 PM Referred By: REFERRED SELF Confirmed By:King Paul
[2023-01-24] MEDS: ACETAMINOPHEN 500 MG TAB PO PRN ×2 (13:12→22:02)
[2023-01-24 14:39] LABS: Estimated Average Glucose 246 mg/dl; Hemoglobin A1C 10.2 % (4.5-5.6)
[2023-01-24] MEDS: MAGNESIUM SULFATE / D5W 1 GM/100 ML BAG IV SCH ×4 (16:14→21:38)
--- NOTE | 2023-01-24 16:30 | Hospitalist Progress Note ---
Date of Service January 24, 2023 Assessment & Plan (1) Chest pain: Plan: - Patient with known CAD who is 1 month removed from cardiac arrest. - Low concern for NSTEMI because troponins on 01/23 were negative*2 and the initial EKG had no ischemic signs. - Low concern for PE due to clinical presentation, lack of tachycardia, and O2 saturation of 100%. - Cardiology consult will be deferred for now. - High suspicion chest pain is due a combination of rib displacement and GERD. - Suspicion of rib displacement causing pain due to physical exam findings (chest pain was reproducible on palpation; pain had pain when asked to breathe deeply). Did mild manipulation of ribs to help with pain. - Patient was recommended to use Vataran gel two to three times a day for the MSK chest pain. Patient was told that gel will take 2-3 days to work and that they should continue to use it even if they do not feel like it is working. - Patient was also recommended to try to stretch ribs by taking very deep breathes and holding it. - Patient was told that they could be discharged today due to the MSK nature of the chest pain, but patient is interested in staying another night to see if they feel a little better. (2) URI (upper respiratory infection): Plan: - Patient was positive for sore throat, cough, congestion, and negative for flu/COVID-19/RSV. - Patient was recommended supportive measures. (3) Hyponatremia: Plan: - Patient's sodium was 130 on 01/23 and 128 on 01/24. - The hyponatremia is possibly due to poor solute intake over the past 3 days. Fluid repletion is ongoing. - Also, the patient reported having dry breakfast cereal, no lunch, dinner, and soda. Conversation will be had with patient about eating habits and working to keep track of their fluid/food intake. (4) GERD (gastroesophageal reflux disease): Plan: - Chest pain may be partially due to GERD. - Patient will continue taking the pantoprazole started inpatient. - A conversation will be started with patient about lifestyle changes. (5) Hypothyroidism: Plan: - Continue with Levothyroxine (88 mcg) Admission and Anticipated Discharge Date Admission Date: January 24, 2023 Supervising Physician Co-Signing Physician Notes I personally examined the patient and verified all real points of history and exam, discussed case, and agree with decision making with Dr Bonner and Caity Browne MS2 Left-sided chest pain sharp and stabbing worse with a deep breath. Vitals noted, in general she is awake and alert pleasant no distress. HEENT normocephalic atraumatic mucous membranes moist. Osteopathic/musculoskeletal exam shows left-sided rib cage to be decreased range of motion stuck in an exhalation type posture and very tenderpalpation of her left ribs in the area that are exhaled recreates her pain directly. Muscle energy utilizing her pectoralis minor muscle done x 3 repetitionsseems to have improved rib range of motion some certainly reproduced pain. Balanced ligamentous tension done as well with some improvement. Rib related chest paineducation and reassurance. Fortunately does not at all appear cardiac. Voltaren gel. Magnesium IV to act as a muscle relaxant. Rib cage somatic dysfunctionOMT as above. Hopefully home soon. Subjective 62-year-old female with a history of diabetes, recent NSTEMI, ventricular tachycardia, and cardiac arrest presenting for chest pain. Patient reported that she has had persistent chest pain since her discharge in early December 2022 for NSTEMI, ventricular tachycardia, and cardiac arrest. At that time, she had hypokalemia requiring shock. No cardiac catheterization was done at that time. Patient reported that two days ago, a sharp chest pain that shot down her left arm started. She rated it a 7 or 8 out of 10. She said that nothing made it better or worse. The patient reported that she also has shortness of breath, a burning sensation in her throat, coughing, and congestion. She reports no night sweats, chills, or fevers. She has been feeling the sick symptoms for the last week. She has no sick contacts and no recent travel. At ED, troponin was negative, and EKG was not consistent with STEMI. She had a slight leukocytosis of 12.96. She was COVID/flu/RSV negative. This morning, patient reported that she is having chest pain, SOB, sore throat, coughing, congestion, and ankle pain. She reported that this chest pain does not feel similar to when she had heart problems before. She has the chest pain when she breathes deeply. Review of Systems Review of Systems: General: negative for fevers, chills, night sweats, weakness HEENT: positive for sore throat and congestion Cardio: negative for palpitations and lower extremity swelling; positive for chest pain Resp: positive for coughing and SOB GI: negative for diarrhea, constipation, or abdominal pain : negative for blood in urine or stool, dysuria, increased urinary frequency/urgency MSK: negative for back or neck pain, positive for ankle pain Neuro: negative for lightheadedness, dizziness, headache, memory loss, tingling or numbness in extremities Skin: negative for abnormal bruising or bleeding Physical Exam Physical Exam: General: Resting comfortably, in no acute distress Head: Normocephalic and atraumatic Eyes: Normal inspection, extraocular muscles intact HEENT: Normal external exam Neck: Normal range of motion, no lymphadenopathy Resp: CTAB, no wheezing, pain with deep breathing Cardiovascular: RRR, normal S1/S2, no murmurs/rubs/gallops GI: Soft, nontender, no guarding or rebound MSK: Ankles were tender, chest pain was reproducible on palpation, rib displace ment was palpated Neuro: A&O*3, appropriately conversive, no focal deficits, symmetric face, no peripheral neuropathy Skin: Warm, dry, and intact Results & Data Results & Data Vital Signs (Past 12 Hours) Vital Signs Temp Pulse Resp BP Pulse Ox O2 Del Method 01/24/23 11:37 36.5 C 87 18 109/76 97 Room Air 01/24/23 08:27 36.3 C L 78 18 103/71 100 Room Air (5) Hypothyroidism Hypothyroidism type: unspecified Qualified Code(s): E03.9 - Hypothyroidism, unspecified
--- NOTE | 2023-01-24 18:57 | Billing Data ---
Date of Service January 24, 2023 Coding Level of Care Code 40475 SUB INP/OBS CARE
--- NOTE | 2023-01-24 18:58 | Hospitalist Progress Note ---
Date of Service January 24, 2023 Assessment & Plan Admission and Anticipated Discharge Date Admission Date: January 24, 2023 Results & Data Results & Data Vital Signs (Past 12 Hours) Vital Signs Temp Pulse Pulse Resp BP Pulse Ox O2 Del Method 01/24/23 17:35 77 01/24/23 16:40 97.7 F 74 18 102/70 100 Room Air 01/24/23 11:37 97.7 F 87 18 109/76 97 Room Air 01/24/23 08:27 97.3 F L 78 18 103/71 100 Room Air PG Care Time/CCT Total # of Minutes Spent Total Time Spent with Patient: Total time spent is greater than 50% in coordination of care (as documented) at patient's floor/unit and/or counseling patient: Coding Level of Care Code None CPT Codes Musculoskeletal - Musculoskeletal: [address] 1-2 Body regions ([id number])
[2023-01-24] MEDS: ATORVASTATIN 40 MG TAB PO SCH (21:40)
--- NOTE | 2023-01-25 05:57 | Billing Data ---
Date of Service January 25, 2023 Coding Level of Care Code 68258 INT INP/OBS CARE
[2023-01-25 06:10] LABS: Hematocrit (blood only) 37.2 % (37.0-47.0); Hemoglobin 12.6 g/dl (12.0-16.0); Mean Corpuscular Hemoglobin 28.7 pg (25.0-34.0); Mean Corpuscular Hgb Conc 33.9 g/dL (32.0-36.0); Mean Corpuscular Volume 84.7 fL (80.0-100.0); Mean Platelet Volume 10.8 fL (9.4-12.4); Platelet Count 277 K/uL (130-400); RDW Coefficient of Variation 13.6 % (11.5-14.5); RDW Standard Deviation 42.4 fL (36.4-46.3); Red Blood Count 4.39 M/uL (4.20-5.40); White Blood Count 9.03 K/ul (4.8-10.8)
[2023-01-25] MEDS: LEVOTHYROXINE SODIUM 88 MCG TABLET PO SCH (06:33)
[2023-01-25 06:36] LABS: BUN Creatinine Ratio 12.1 (10-20); Calcium 8.7 mg/dl (8.6-10.3); Creatinine Clr Calc Pharmacy 51.7 ml/min; Est GFR (African American) 70.3 ml/min; Est GFR (Non-African American) 60.6 ml/min; Magnesium 2.4 mg/dl (1.7-2.4); Potassium 4.4 mmol/L (3.5-5.1)
--- NOTE | 2023-01-25 07:38 | Hospitalist Progress Note ---
Date of Service January 25, 2023 Assessment & Plan (1) Chest pain: (2) Leukocytosis: (3) Hyponatremia: (4) Hyperglycemia: (5) GERD (gastroesophageal reflux disease): (6) Hypothyroidism: (7) Hypertension: (8) CAD (coronary artery disease): (9) Dyslipidemia: (10) Congestive heart failure: (11) Diabetes mellitus: Plan Pt is a 62 yo female who presents to the hospital on 01/24/23 for chest pain. Suspect new abdominal pain may be GERD related or due to constipation, so will do GI cocktail of miralax, zofran, protonix and pepcid, and Phenergan today and see how she feels. On further discussion of hx, seems that she felt sick recently with dry cough and sore throat and chest pain developed afterwards, suspect pinched nerve may be source of chest pain from recent URI, or may be related to GERD, or multifactorial. Chest pain - pt has known CAD -Initial EKG without ischemic signs and NSR, troponin negative x2 - last TTE was 12/2022 and EF >60% without wall motion abnormalities - pt describes burning sensation in her throat with chest pain on admission, - with cardiac workup unimpressive, suspect due to nerve impingement/MSK vs GERD or multifactorial with recent URI Leukocytosis -WBC 13.0 on admission, 13.3, now 9 - CXR does not demonstrate pneumonia -procal wnl Hyponatremia -Na 128 on admission, 133 today -Possibly due to poor solute intake over past 3 days -Fluid repletion ongoing -Monitor BMP Hyperglycemia -BSG 376 on admission, recheck of 238 -Likely stress hyperglycemia -Continue to monitor as pt begins basal/bolus insulin in hospital GERD (gastroesophageal reflux disease) - Continue pantoprazole Hypothyroidism -Continue levothyroxine Hypertension -Noted history of such but not on any antihypertensives -BP stable for now -Continue to monitor -Deferring initiation of ELHAM/ARB or other antihypertensive to day team/PCP CAD (coronary artery disease) -Unlikely to have ACS at present given negative troponin and reassuring EKG -Continue aspirin, Brillinta, atorvastatin Dyslipidemia -Continue atorvastatin Congestive heart failure -I do not suspect an acute exacerbation currently given pt's lung exam and euvolemic status -Continue spironolactone - next AM BNP, 46 Diabetes mellitus -Uncontrolled DM with last A1C of 10% in 12/2022 -DELORES Mo in hospital Plan ELIZAI: Heart healthy, DM2 Code status: Full DVT prophylaxis: Lovenox Isolation: None Unit: Medical/surgical with telemetry Disposition planning: Likely home Admission and Anticipated Discharge Date Admission Date: January 24, 2023 Supervising Physician Co-Signing Physician Notes I personally examined the patient and verified all real points of history and exam, discussed case, and agree with decision making with Dr Shah Feels terrible and does not feel like she can go home. To me she notes that she has a lot of nausea and inability to take p.o.the nausea seems to be fairly constant worse with food she was not really able to swallow and if she was trying to eat breakfast. She has a bit of a diffuse vague periumbilical and generalized abdominal pain that is stabbing in quality and worse randomly. No vomiting. She also notes that she is very congested and it is making her head feel full and puffy. Also has ongoing left arm pain. Vitals noted, in general she is awake and alert pleasant no distress. HEENT normocephalic atraumatic mucous membranes moist. Breathing unlabored no accessory muscle use good effort. Skin shows no rashes no pallor or icterus. Abdomen soft mildly distended mild diffuse tenderness no guarding rebound or rigidity. Nauseasuspect constipation mediated versus GERDescalate GI symptomatic control for today as well as add a bowel regimen. Viral sinusitismostly reassurance and supportive care, Afrin may help symptomatic control with decongestiondiscussed limitations on use to prevent rebound congestion Chest and arm painrib relatedOMT done yesterday, continue Voltaren gel. Recent torsadebut fortunately nothing about current admission/symptom complex appears cardiac. DVT prophylaxisLovenox Subjective Pt is a 62 yo female who presents to the hospital on 01/24/23 for chest pain. Today, pt states she is feeling overall okay. She states she is having some abdominal pain and nausea today. She states that she is still having L sided chest pain with nerve pain down her left arm to her wrist. She notes that she was sick about a week ago with cough, sore throat, nausea, vomiting, and that after she got sick is when she started getting this shock like chest pain down her arm. She states it is no better or worse today, feels the same as it has and seems to be pretty much constant. Pt also notes being nervous about going home because even though cardiac workup was unremarkable, she had recent hospitalization with a very low potassium and is afraid if she goes home she may fall. Does not want rehab. Review of Systems Review of Systems: Constitutional: denies fever, chills, HEENT: denies congestion, sore throat Resp: denies shortness of breath, Physical Exam Physical Exam: General:Alert and oriented, no acute distress, HEENT: Normocephalic, moist oral mucosa, Cardio: Regular rate and rhythm, Resp:Lungs clear to auscultation b/l, no wheezes or rhonchi, Skin: Warm, pink, dry, Psych: Mood-affect congruence. Results & Data Results & Data Vital Signs (Past 12 Hours) Vital Signs Temp Pulse Pulse Resp BP Pulse Ox O2 Del Method 01/25/23 07:32 74 01/25/23 03:17 36.6 C 77 18 120/82 97 Room Air 01/24/23 23:00 36.5 C 81 18 127/79 96 Room Air 01/24/23 20:00 36.6 C 77 18 105/63 98 Room Air Resident Activity Tracking Resident Involvement: Resident Care Provided Care Provided: Adult Hospital Medicine (6) Hypothyroidism Hypothyroidism type: unspecified Qualified Code(s): E03.9 - Hypothyroidism, unspecified (8) CAD (coronary artery disease) Associated angina: unspecified whether angina present Coronary Disease- Associated Artery/Lesion type: [place] artery [place] vs. transplanted heart: [place] heart Qualified Code(s): I25.10 - Atherosclerotic heart disease of [place] coronary artery without angina pectoris
[2023-01-25] MEDS: TICAGRELOR 90 MG TAB PO SCH ×2 (09:17→19:49)
[2023-01-25] MEDS: ASPIRIN 81 MG ECTAB PO SCH (09:17)
[2023-01-25] MEDS: DOCUSATE SODIUM 100 MG CAP PO SCH ×2 (09:17→19:55)
[2023-01-25] MEDS: PANTOprazole 40 MG TAB PO SCH ×2 (09:18→19:49)
[2023-01-25] MEDS: SPIRONOLACTONE 25 MG TAB PO SCH (09:18)
[2023-01-25] MEDS: FOLIC ACID 1 MG TAB PO SCH (09:18)
[2023-01-25] MEDS: MAGNESIUM OXIDE 400 MG TAB PO SCH ×2 (09:18→19:48)
[2023-01-25] MEDS: INSULIN ASPART PER UNIT CHARGE SC SCH ×4 (09:35→21:15)
[2023-01-25] MEDS: LANTUS PER UNIT CHARGE SQ SCH ×2 (09:35→21:15)
[2023-01-25] MEDS: DICLOFENAC SOD 1% GEL 100 GM TUBE EXT SCH ×4 (10:26→19:52)
[2023-01-25] MEDS: ENOXAPARIN INJ 40 MG/0.4 ML SYR SQ SCH (11:04)
[2023-01-25] MEDS ORDERED: FAMOTIDINE 20 MG TAB PO ONE (14:41)
[2023-01-25] MEDS ORDERED: PROCHLORPERAZINE 5 MG in SYRINGE 4 ML IV ONE (14:41)
--- NOTE | 2023-01-25 14:44 | Billing Data ---
Date of Service January 25, 2023 Coding Level of Care Code 23426 SUB INP/OBS CARE
--- NOTE | 2023-01-25 14:46 | Billing Data ---
Date of Service January 25, 2023 Coding Level of Care Code 77666 SUB INP/OBS CARE
--- NOTE | 2023-01-25 14:47 | Billing Data ---
Date of Service January 25, 2023 Coding Level of Care Code 01442 SUB INP/OBS CARE
[2023-01-25] MEDS: ONDANSETRON 4 MG OD TAB PO SCH ×2 (15:21→19:48)
[2023-01-25] MEDS: SUCRALFATE 1 GM/10 ML UDC PO SCH (15:21)
[2023-01-25] MEDS: OXYMETAZOLINE 0.05% 30 ML BTL SCH (19:50)
[2023-01-25] MEDS: POLYETHYLENE (MIRALAX) 17 GM PACK PO SCH (19:51)
[2023-01-25] MEDS: FAMOTIDINE 20 MG TAB PO SCH (19:56)
[2023-01-25] MEDS: ATORVASTATIN 40 MG TAB PO SCH (20:35)
[2023-01-26] MEDS: ONDANSETRON 4 MG OD TAB PO SCH ×2 (04:52→06:24)
[2023-01-26] MEDS: LEVOTHYROXINE SODIUM 88 MCG TABLET PO SCH (06:22)
[2023-01-26] MEDS: ACETAMINOPHEN 500 MG TAB PO PRN ×2 (06:29→21:43)
[2023-01-26] MEDS: SUCRALFATE 1 GM/10 ML UDC PO SCH ×3 (06:29→17:28)
--- NOTE | 2023-01-26 06:59 | Hospitalist Progress Note ---
Date of Service January 26, 2023 Assessment & Plan (1) Chest pain: (2) Leukocytosis: (3) Hyponatremia: (4) Hyperglycemia: (5) GERD (gastroesophageal reflux disease): (6) Hypothyroidism: (7) Hypertension: (8) CAD (coronary artery disease): (9) Dyslipidemia: (10) Congestive heart failure: (11) Diabetes mellitus: Plan Pt is a 62 yo female who presents to the hospital on 01/24/23 for chest pain. Continuing miralax for constipation today. If now bowel movement by 5pm today, will start golytely. Chest pain - pt has known CAD -Initial EKG without ischemic signs and NSR, troponin negative x2 - last TTE was 12/2022 and EF >60% without wall motion abnormalities - pt describes burning sensation in her throat with chest pain on admission, - with cardiac workup unimpressive, suspect due to nerve impingement/MSK vs GERD or multifactorial with recent URI Leukocytosis, resolved -WBC 13.0 on admission, 13.3, now 9 - CXR does not demonstrate pneumonia -procal wnl Hyponatremia -Na 128 on admission, 133 -Possibly due to poor solute intake over past 3 days -Fluid repletion ongoing -Monitor BMP Hyperglycemia -BSG 376 on admission, recheck of 238 -Likely stress hyperglycemia -Continue to monitor as pt begins basal/bolus insulin in hospital GERD (gastroesophageal reflux disease) - Continue pantoprazole Hypothyroidism -Continue levothyroxine Hypertension -Noted history of such but not on any antihypertensives -BP stable for now -Continue to monitor -Deferring initiation of ELHAM/ARB or other antihypertensive to day team/PCP CAD (coronary artery disease) -Unlikely to have ACS at present given negative troponin and reassuring EKG -Continue aspirin, Brillinta, atorvastatin Dyslipidemia -Continue atorvastatin Congestive heart failure -I do not suspect an acute exacerbation currently given pt's lung exam and euvolemic status -Continue spironolactone - next AM BNP, 46 Diabetes mellitus -Uncontrolled DM with last A1C of 10% in 12/2022 -DELORES Mo in hospital Plan FENGI: Heart healthy, DM2 Code status: Full DVT prophylaxis: Lovenox Isolation: None Unit: Medical/surgical with telemetry Disposition planning: Likely home Admission and Anticipated Discharge Date Admission Date: January 24, 2023 Supervising Physician Co-Signing Physician Notes I personally examined the patient and verified all real points of history and exam, discussed case, and agree with decision making with Dr Shah Basically feels the same as yesterday, but notes she has not had a bowel movement yet.. Vitals noted, in general she is awake and alert pleasant no distress. HEENT normocephalic atraumatic mucous membranes moist. Breathing unlabored no accessory muscle use good effort. Skin shows no rashes no pallor or icterus. Otherwise as above Nauseasuspect constipation mediated versus GERDcontinue escalated symptomatic control, continue bowel regimen Viral sinusitismostly reassurance and supportive care, Afrin may help symptomatic control with decongestionyesterday I discussed limitations on use to prevent rebound congestion Chest and arm painrib relatedOMT done earlier in this hospital stay, continue Voltaren gel. Recent torsadebut fortunately nothing about current admission/symptom complex appears cardiac. DVT prophylaxisLovenox home once she can eat/drink Subjective Pt is a 62 yo female who presents to the hospital on 01/24/23 for chest pain. Today, pt states that she does not feel any better or worse today. She states her belly still hurts and she is still feeling nauseated. She states that she also still has not had a bowel movement since starting the miralax yesterday. She states overall she is still feeling nervous to go home, especially now that she is constipated and the miralax has not worked yet. She states when she has a bowel movement she will probably feel much better. Review of Systems Review of Systems: Constitutional: denies fever, chills, HEENT: denies congestion, sore throat Resp: denies shortness of breath, Physical Exam Physical Exam: General:Alert and oriented, no acute distress, HEENT: Normocephalic, moist oral mucosa, Cardio: Regular rate and rhythm, Resp:Lungs clear to auscultation b/l, no wheezes or rhonchi, GI: Soft, bowel sounds present Skin: Warm, pink, dry, Psych: Mood-affect congruence. Results & Data Results & Data Vital Signs (Past 12 Hours) Vital Signs Temp Pulse Pulse Resp BP Pulse Ox O2 Del Method 01/26/23 03:45 36.5 C 82 18 104/70 97 Room Air 01/26/23 00:00 36.6 C 72 18 112/74 97 Room Air 01/25/23 22:00 79 01/25/23 19:00 36.6 C 74 18 105/70 97 Room Air Resident Activity Tracking Resident Involvement: Resident Care Provided Care Provided: Adult Hospital Medicine (6) Hypothyroidism Hypothyroidism type: unspecified Qualified Code(s): E03.9 - Hypothyroidism, unspecified (8) CAD (coronary artery disease) Associated angina: unspecified whether angina present Coronary Disease- Associated Artery/Lesion type: [place] artery [place] vs. transplanted heart: [place] heart Qualified Code(s): I25.10 - Atherosclerotic heart disease of [place] coronary artery without angina pectoris
[2023-01-26 07:16] LABS: Hematocrit (blood only) 36.4 % (37.0-47.0); Hemoglobin 12.2 g/dl (12.0-16.0); Mean Corpuscular Hemoglobin 28.8 pg (25.0-34.0); Mean Corpuscular Hgb Conc 33.5 g/dL (32.0-36.0); Mean Corpuscular Volume 86.1 fL (80.0-100.0); Mean Platelet Volume 10.8 fL (9.4-12.4); Platelet Count 269 K/uL (130-400); RDW Coefficient of Variation 13.8 % (11.5-14.5); RDW Standard Deviation 43.6 fL (36.4-46.3); Red Blood Count 4.23 M/uL (4.20-5.40); White Blood Count 8.61 K/ul (4.8-10.8)
[2023-01-26 07:52] LABS: BUN Creatinine Ratio 12.4 (10-20); Calcium 8.7 mg/dl (8.6-10.3); Creatinine Clr Calc Pharmacy 48.7 ml/min; Est GFR (African American) 65.5 ml/min; Est GFR (Non-African American) 56.5 ml/min; Potassium 4.7 mmol/L (3.5-5.1)
[2023-01-26] MEDS: MAGNESIUM OXIDE 400 MG TAB PO SCH ×2 (08:37→21:29)
[2023-01-26] MEDS: DOCUSATE SODIUM 100 MG CAP PO SCH ×2 (08:37→21:30)
[2023-01-26] MEDS: ASPIRIN 81 MG ECTAB PO SCH (08:37)
[2023-01-26] MEDS: POLYETHYLENE (MIRALAX) 17 GM PACK PO SCH ×3 (08:37→21:32)
[2023-01-26] MEDS: PANTOprazole 40 MG TAB PO SCH ×2 (08:37→21:30)
[2023-01-26] MEDS: SPIRONOLACTONE 25 MG TAB PO SCH (08:39)
[2023-01-26] MEDS: FOLIC ACID 1 MG TAB PO SCH (08:39)
[2023-01-26] MEDS: DICLOFENAC SOD 1% GEL 100 GM TUBE EXT SCH ×4 (08:39→21:32)
[2023-01-26] MEDS: ENOXAPARIN INJ 40 MG/0.4 ML SYR SQ SCH (08:39)
[2023-01-26] MEDS: TICAGRELOR 90 MG TAB PO SCH ×2 (08:40→21:31)
[2023-01-26] MEDS: ONDANSETRON 4 MG OD TAB PO PRN (08:42)
[2023-01-26] MEDS: OXYMETAZOLINE 0.05% 30 ML BTL SCH ×2 (08:45→21:49)
[2023-01-26] MEDS: INSULIN ASPART PER UNIT CHARGE SC SCH ×4 (09:13→21:29)
[2023-01-26] MEDS: LANTUS PER UNIT CHARGE SQ SCH ×2 (09:14→21:28)
[2023-01-26] MEDS: FAMOTIDINE 20 MG TAB PO SCH ×2 (12:58→21:31)
--- NOTE | 2023-01-26 16:57 | Billing Data ---
Date of Service January 26, 2023 Coding Level of Care Code 30067 SUB INP/OBS CARE
[2023-01-26] MEDS ORDERED: LAVAGE SOLUTION 4000ML PO SCH (18:00)
[2023-01-26] MEDS: ATORVASTATIN 40 MG TAB PO SCH (21:30)
[2023-01-27] MEDS: LEVOTHYROXINE SODIUM 88 MCG TABLET PO SCH (05:26)
[2023-01-27 06:40] LABS: Basophils # (auto) 0.03 K/uL (0.00-0.20); Basophils % (auto) 0.3 %; Eosinophils # (auto) 0.73 K/uL (0.00-0.50); Eosinophils % (auto) 8.3 %; Immature Granulocytes # (auto) 0.04 K/uL (0.01-0.20); Immature Granulocytes % (auto) 0.5 %; Lymphocytes # (auto) 3.27 K/uL (1.20-3.40); Lymphocytes % (auto) 37.1 %; Mean Corpuscular Hemoglobin 28.4 pg (25.0-34.0); Mean Corpuscular Hgb Conc 33.3 g/dL (32.0-36.0); Mean Corpuscular Volume 85.3 fL (80.0-100.0); Mean Platelet Volume 10.9 fL (9.4-12.4); Monocytes # (auto) 0.68 K/uL (0.11-0.59); Monocytes % (auto) 7.7 %; Neutrophils # (auto) 4.06 K/uL (1.40-6.50); Neutrophils % (auto) 46.1 %; Platelet Count 275 K/uL (130-400); RDW Coefficient of Variation 13.6 % (11.5-14.5); RDW Standard Deviation 42.6 fL (36.4-46.3); Red Blood Count 4.22 M/uL (4.20-5.40); White Blood Count 8.81 K/ul (4.8-10.8)
[2023-01-27 06:47] LABS: BUN Creatinine Ratio 9.3 (10-20); Bilirubin,Total 0.4 mg/dl (0.2-1.0); Calcium 8.8 mg/dl (8.6-10.3); Creatinine Clr Calc Pharmacy 43.4 ml/min; Est GFR (African American) 56.8 ml/min; Potassium 4.6 mmol/L (3.5-5.1)
[2023-01-27] MEDS: OXYMETAZOLINE 0.05% 30 ML BTL SCH (07:46)
[2023-01-27] MEDS: MAGNESIUM OXIDE 400 MG TAB PO SCH ×2 (07:47→22:16)
[2023-01-27] MEDS: TICAGRELOR 90 MG TAB PO SCH ×2 (07:47→22:15)
[2023-01-27] MEDS: FAMOTIDINE 20 MG TAB PO SCH ×2 (07:47→22:16)
[2023-01-27] MEDS: PANTOprazole 40 MG TAB PO SCH ×2 (07:47→22:15)
[2023-01-27] MEDS: POLYETHYLENE (MIRALAX) 17 GM PACK PO SCH ×3 (07:47→22:17)
[2023-01-27] MEDS: ENOXAPARIN INJ 40 MG/0.4 ML SYR SQ SCH (07:47)
[2023-01-27] MEDS: SUCRALFATE 1 GM/10 ML UDC PO SCH ×3 (07:47→16:25)
[2023-01-27] MEDS: DICLOFENAC SOD 1% GEL 100 GM TUBE EXT SCH ×4 (07:47→22:14)
[2023-01-27] MEDS: DOCUSATE SODIUM 100 MG CAP PO SCH ×2 (07:48→22:16)
[2023-01-27] MEDS: FOLIC ACID 1 MG TAB PO SCH (07:48)
[2023-01-27] MEDS: SPIRONOLACTONE 25 MG TAB PO SCH (07:48)
[2023-01-27] MEDS: ASPIRIN 81 MG ECTAB PO SCH (07:53)
[2023-01-27] MEDS: INSULIN ASPART PER UNIT CHARGE SC SCH ×4 (08:39→22:13)
[2023-01-27] MEDS: LANTUS PER UNIT CHARGE SQ SCH ×2 (08:39→22:14)
[2023-01-27] MEDS ORDERED: LAVAGE SOLUTION 4000ML PO SCH (10:30)
--- NOTE | 2023-01-27 10:30 | Hospitalist Progress Note ---
Date of Service January 27, 2023 Assessment & Plan (1) Chest pain: (2) Leukocytosis: (3) Hyponatremia: (4) Hyperglycemia: (5) GERD (gastroesophageal reflux disease): (6) Hypothyroidism: (7) Hypertension: (8) CAD (coronary artery disease): (9) Dyslipidemia: (10) Congestive heart failure: (11) Diabetes mellitus: Plan Pt is a 62 yo female who presents to the hospital on 01/24/23 for left sided chest pain with radiation to her left arm. Constipation - Patient with abdominal discomfort and nausea without vomiting more pronounced after eating - Laxatives (e.g. Miralax) used until now with little/no effect - Will order Golytely as management Chest pain - pt has known CAD - Initial EKG without ischemic signs and NSR, troponin negative x2 - last TTE was 12/2022 and EF >60% without wall motion abnormalities - pt describes stabbing pain that originates in her left shoulder and moves centrally to her chest and own her arm. Likely due to musculoskeletal cause or nerve impingement. - Continue Tylenol and Voltaren gel as management. Leukocytosis -WBC 13.0 on admission -Now resolved (8.81 today) Hyponatremia -Na 128 on admission, 131 today -Possibly due to poor solute intake over past 3 days -Monitor BMP Hyperglycemia -BSG 376 on admission, recheck of 238 -Likely stress hyperglycemia -Continue to monitor as pt begins basal/bolus insulin in hospital GERD (gastroesophageal reflux disease) - Continue pantoprazole Hypothyroidism -Continue levothyroxine Hypertension -Noted history of such but not on any antihypertensives -BP stable for now -Continue to monitor -Deferring initiation of ELHAM/ARB or other antihypertensive to PCP CAD (coronary artery disease) -Unlikely to have ACS at present given negative troponin and reassuring EKG -Continue aspirin, Brillinta, atorvastatin Dyslipidemia -Continue atorvastatin Congestive heart failure -exacerbation unlikely given clear lungs on exam and euvolemic status -Continue spironolactone Diabetes mellitus -Uncontrolled DM with last A1C of 10% in 12/2022 -DELORES Mo in hospital Plan FENGI: Heart healthy, DM2 Code status: Full DVT prophylaxis: Lovenox Isolation: None Unit: Medical/surgical with telemetry Disposition planning: Likely home Admission and Anticipated Discharge Date Admission Date: January 24, 2023 Supervising Physician Co-Signing Physician Notes Resident Physician Supervision Note: I independently interviewed and examined the patient and verified the real history and physical, reviewed labs and image studies and agree with resident findings and care plan. Continues to report abdominal discomfort and feeling nauseous with food. Still with no bowel movement. Vitals noted, in general she is awake and alert pleasant no distress. HEENT normocephalic atraumatic mucous membranes moist. Breathing unlabored no accessory muscle use good effort. Skin shows no rashes no pallor or icterus. Otherwise as above Nauseasuspect constipation mediated versus GERDcontinue escalated symptomatic control, continue bowel regimen -possibly might have underlying gastroparesis and DM related GI motility dysfunction - A1c - 10.2 (uncontrolled A1c readings since 2019) Viral sinusitismostly reassurance and supportive care, Afrin may help symptomatic control with decongestionAware of limitations on use to prevent rebound congestion Chest and arm painrib relatedOMT done earlier in this hospital stay, continue Voltaren gel. Recent torsadebut fortunately nothing about current admission/symptom complex appears cardiac. DVT prophylaxisLovenox home once she can eat/drink Subjective Pt is a 62 yo female who presents to the hospital on 01/24/23 for left sided chest pain that radiated down her left arm. EKG and Troponins done in the ED were negative for ischemia. Patient today was pointing to her left shoulder and clarified that her pain was stabbing in nature, and started on her left shoulder and moved centrally towards her chest and down her arm, and is now constant and dull. She states the pain is somewhat controlled with Tylenol and Voltaren gel ordered as management. Today she states she feels the same as she did yesterday (not better or worse). She refers continued nausea without any episodes of vomiting. She has not yet had a bowel movement despite multiple laxatives. She was meant to get golytely yesterday to see if this would help her, but this was not administered. She denies fevers, chills, SOB, lightheadedness, syncope, malaise, weakness, or any other symptom. Review of Systems Review of Systems: As per HPI. Physical Exam Physical Exam: General: Alert. Oriented to person, time, and place. Afebrile. No acute distress. Cardiac: Regular rate and rhythm, no murmurs/rubs/gallops. Respiratory: Clear to auscultation bilaterally, no wheezes/rales/rhonchi. No increased work of breathing. Symmetrical chest rise. No respiratory distress. Abdomen: Soft, generalized tenderness to palpation more marked in bilateral lower quadrants, mildly distended. Bowel sounds present. Lower Extremities: No lower extremity edema or swelling. No deep calf pain. Pillo's negative bilaterally. Results & Data Results & Data Vital Signs (Past 12 Hours) Vital Signs Temp Pulse Pulse Resp BP Pulse Ox O2 Del Method 01/27/23 08:07 36.6 C 68 16 114/74 95 Room Air 01/27/23 04:00 36.6 C 71 18 106/64 97 Room Air 01/26/23 23:08 84 01/26/23 23:00 36.6 C 72 18 112/76 97 Room Air Resident Activity Tracking Resident Involvement: Resident Care Provided Care Provided: Adult Hospital Medicine (6) Hypothyroidism Hypothyroidism type: unspecified Qualified Code(s): E03.9 - Hypothyroidism, unspecified (8) CAD (coronary artery disease) Associated angina: unspecified whether angina present Coronary Disease- Associated Artery/Lesion type: [place] artery [place] vs. transplanted heart: [place] heart Qualified Code(s): I25.10 - Atherosclerotic heart disease of [place] coronary artery without angina pectoris
[2023-01-27] MEDS: ATORVASTATIN 40 MG TAB PO SCH (22:16)
[2023-01-27] MEDS: ACETAMINOPHEN 500 MG TAB PO PRN (23:50)
[2023-01-28] MEDS: LEVOTHYROXINE SODIUM 88 MCG TABLET PO SCH (05:55)
[2023-01-28 06:25] LABS: Basophils # (auto) 0.02 K/uL (0.00-0.20); Basophils % (auto) 0.3 %; Eosinophils # (auto) 0.61 K/uL (0.00-0.50); Eosinophils % (auto) 7.7 %; Hemoglobin 11.6 g/dl (12.0-16.0); Immature Granulocytes # (auto) 0.03 K/uL (0.01-0.20); Immature Granulocytes % (auto) 0.4 %; Lymphocytes # (auto) 2.61 K/uL (1.20-3.40); Lymphocytes % (auto) 32.9 %; Mean Corpuscular Hemoglobin 28.6 pg (25.0-34.0); Mean Corpuscular Hgb Conc 33.1 g/dL (32.0-36.0); Mean Corpuscular Volume 86.2 fL (80.0-100.0); Monocytes # (auto) 0.62 K/uL (0.11-0.59); Monocytes % (auto) 7.8 %; Neutrophils # (auto) 4.05 K/uL (1.40-6.50); Neutrophils % (auto) 50.9 %; Platelet Count 251 K/uL (130-400); RDW Coefficient of Variation 13.7 % (11.5-14.5); RDW Standard Deviation 43.1 fL (36.4-46.3); Red Blood Count 4.06 M/uL (4.20-5.40); White Blood Count 7.94 K/ul (4.8-10.8)
[2023-01-28 06:36] LABS: Albumin Level 2.9 gm/dl (3.4-5.0); BUN Creatinine Ratio 11.9 (10-20); Bilirubin,Total 0.3 mg/dl (0.2-1.0); Est GFR (African American) 62.6 ml/min; Globulin 2.8 gm/dl (2.5-4.0); Potassium 4.6 mmol/L (3.5-5.1); Total Protein 5.7 gm/dl (6.0-8.3)
[2023-01-28] MEDS: ENOXAPARIN INJ 40 MG/0.4 ML SYR SQ SCH (08:06)
[2023-01-28] MEDS: DICLOFENAC SOD 1% GEL 100 GM TUBE EXT SCH ×4 (08:06→21:33)
[2023-01-28] MEDS: MAGNESIUM OXIDE 400 MG TAB PO SCH ×2 (08:07→21:35)
[2023-01-28] MEDS: FOLIC ACID 1 MG TAB PO SCH (08:07)
[2023-01-28] MEDS: PANTOprazole 40 MG TAB PO SCH ×2 (08:07→21:36)
[2023-01-28] MEDS: FAMOTIDINE 20 MG TAB PO SCH ×2 (08:07→21:35)
[2023-01-28] MEDS: TICAGRELOR 90 MG TAB PO SCH ×2 (08:07→21:36)
[2023-01-28] MEDS: SUCRALFATE 1 GM/10 ML UDC PO SCH ×3 (08:07→16:11)
[2023-01-28] MEDS: SPIRONOLACTONE 25 MG TAB PO SCH (08:07)
[2023-01-28] MEDS: ASPIRIN 81 MG ECTAB PO SCH (08:07)
[2023-01-28] MEDS: POLYETHYLENE (MIRALAX) 17 GM PACK PO SCH ×3 (08:08→21:36)
[2023-01-28] MEDS ORDERED: LAVAGE SOLUTION 4000ML PO SCH (09:00)
[2023-01-28] MEDS: LANTUS PER UNIT CHARGE SQ SCH ×2 (09:36→21:37)
[2023-01-28] MEDS: DOCUSATE SODIUM 100 MG CAP PO SCH ×2 (09:37→21:33)
[2023-01-28] MEDS: INSULIN ASPART PER UNIT CHARGE SC SCH ×4 (09:37→21:37)
[2023-01-28] MEDS: ONDANSETRON 4 MG OD TAB PO PRN (10:09)
--- NOTE | 2023-01-28 10:24 | Hospitalist Progress Note ---
Date of Service January 28, 2023 Assessment & Plan (1) Chest pain: (2) Leukocytosis: (3) Hyponatremia: (4) Hyperglycemia: (5) GERD (gastroesophageal reflux disease): (6) Hypothyroidism: (7) Hypertension: (8) CAD (coronary artery disease): (9) Dyslipidemia: (10) Congestive heart failure: (11) Diabetes mellitus: Plan Pt is a 62 yo female who presents to the hospital on 01/24/23 for left sided chest pain with radiation to her left arm. Constipation - Patient with abdominal discomfort and nausea without vomiting more pronounced after eating - Possibly the cause of her abdominal discomfort. - Laxatives (e.g. Miralax) used until now with little/no effect - Patient agreed with trying golytely. Will order Golytely. She was advised that she would need to complete the dose in order to achieve its effect. Diabetes mellitus -Uncontrolled DM with last A1C of 10% in 12/2022 - Possible contributor to her nausea (gastroparesis?) - patient states she does have this. -[place], DELORES in hospital Chest pain - pt has known CAD - Initial EKG without ischemic signs and NSR, troponin negative x2 - last TTE was 12/2022 and EF >60% without wall motion abnormalities - pt describes stabbing pain that originates in her left shoulder and moves centrally to her chest and own her arm. Likely due to musculoskeletal cause or nerve impingement. - Continue Tylenol and Voltaren gel as management. Leukocytosis -WBC 13.0 on admission -Now resolved (8.81 today) Hyponatremia -Na 128 on admission, 133 today -Possibly due to poor solute intake -Monitor BMP Hyperglycemia -BSG 376 on admission, recheck of 238 -Likely stress hyperglycemia -Continue to monitor as pt begins basal/bolus insulin in hospital GERD (gastroesophageal reflux disease) - Continue pantoprazole Hypothyroidism -Continue levothyroxine Hypertension -Noted history of such but not on any antihypertensives -BP stable for now -Continue to monitor -Deferring initiation of ELHAM/ARB or other antihypertensive to PCP CAD (coronary artery disease) -Unlikely to have ACS at present given negative troponin and reassuring EKG -Continue aspirin, Brillinta, atorvastatin Dyslipidemia -Continue atorvastatin Congestive heart failure -exacerbation unlikely given clear lungs on exam and euvolemic status -Continue spironolactone Plan MOSES: Heart healthy, DM2 Code status: Full DVT prophylaxis: Lovenox Isolation: None Unit: Medical/surgical with telemetry Disposition planning: Likely home Admission and Anticipated Discharge Date Admission Date: January 24, 2023 Supervising Physician Co-Signing Physician Notes Resident Physician Supervision Note: I independently interviewed and examined the patient and verified the real history and physical, reviewed labs and image studies and agree with resident findings and care plan. Continues to report abdominal discomfort and feeling nauseous with food. Still with no bowel movement. Vitals noted, in general she is awake and alert pleasant no distress. HEENT normocephalic atraumatic mucous membranes moist. Breathing unlabored no accessory muscle use good effort. Skin shows no rashes no pallor or icterus. Otherwise as above Nauseasuspect constipation mediated versus GERDcontinue PPI, sucralfate, continue bowel regimen -possibly might have underlying gastroparesis and DM related GI motility dysfunction - A1c - 10.2 (uncontrolled A1c readings since 2019) Viral sinusitismostly reassurance and supportive care, Afrin may help symptomatic control with decongestionAware of limitations on use to prevent rebound congestion Chest and arm painrib relatedOMT done earlier in this hospital stay, continue Voltaren gel. Recent torsadebut fortunately nothing about current admission/symptom complex appears cardiac. DVT prophylaxisLovenox home once she can eat/drink Subjective Pt is a 62 yo female who presents to the hospital on 01/24/23 for left sided chest pain that radiated down her left arm. EKG and Troponins done in the ED were negative for ischemia. Today she states she feels the same as she did yesterday (not better or worse). She refers continued nausea without any episodes of vomiting. She did not drink the golytely yesterday because she did not want to take such a large amount of fluid. After discussing alternatives such as suppositories or manual disimpaction and enema, she chose to try the golytely again. She denies fevers, chills, SOB, lightheadedness, syncope, malaise, weakness, or any other symptom. Review of Systems 2 Review of Systems: As per HPI. Physical Exam Physical Exam: General: Alert. Oriented to person, time, and place. Afebrile. No acute distress. Cardiac: Regular rate and rhythm, no murmurs/rubs/gallops. Respiratory: Clear to auscultation bilaterally, no wheezes/rales/rhonchi. No increased work of breathing. Symmetrical chest rise. No respiratory distress. Abdomen: Soft, tenderness to palpation more marked in bilateral lower quadrants, non-distended. Bowel sounds present. Lower Extremities: No lower extremity edema or swelling. No deep calf pain. Pillo's negative bilaterally. Results & Data Results & Data Vital Signs (Past 12 Hours) Vital Signs Temp Pulse Pulse Resp BP Pulse Ox O2 Del Method 01/28/23 07:51 36.6 C 68 18 119/78 100 Room Air 01/28/23 07:28 67 01/28/23 04:05 36.8 C 73 18 105/66 97 Room Air 01/28/23 00:19 83 01/27/23 23:35 36.5 C 79 18 114/69 96 Room Air Resident Activity Tracking Resident Involvement: Resident Care Provided Care Provided: Adult Hospital Medicine (6) Hypothyroidism Hypothyroidism type: unspecified Qualified Code(s): E03.9 - Hypothyroidism, unspecified (8) CAD (coronary artery disease) Associated angina: unspecified whether angina present Coronary Disease- Associated Artery/Lesion type: [place] artery [place] vs. transplanted heart: [place] heart Qualified Code(s): I25.10 - Atherosclerotic heart disease of [place] coronary artery without angina pectoris
[2023-01-28] MEDS: ACETAMINOPHEN 500 MG TAB PO PRN (19:41)
[2023-01-28] MEDS: ATORVASTATIN 40 MG TAB PO SCH (21:32)
[2023-01-29] MEDS: LEVOTHYROXINE SODIUM 88 MCG TABLET PO SCH (06:01)
[2023-01-29 06:36] LABS: Basophils # (auto) 0.03 K/uL (0.00-0.20); Basophils % (auto) 0.4 %; Eosinophils # (auto) 0.43 K/uL (0.00-0.50); Eosinophils % (auto) 5.5 %; Hematocrit (blood only) 35.2 % (37.0-47.0); Immature Granulocytes # (auto) 0.02 K/uL (0.01-0.20); Immature Granulocytes % (auto) 0.3 %; Lymphocytes # (auto) 1.08 K/uL (1.20-3.40); Lymphocytes % (auto) 13.8 %; Mean Corpuscular Hgb Conc 34.1 g/dL (32.0-36.0); Mean Platelet Volume 10.9 fL (9.4-12.4); Monocytes # (auto) 0.46 K/uL (0.11-0.59); Monocytes % (auto) 5.9 %; Neutrophils # (auto) 5.81 K/uL (1.40-6.50); Neutrophils % (auto) 74.1 %; Platelet Count 226 K/uL (130-400); RDW Coefficient of Variation 13.8 % (11.5-14.5); Red Blood Count 4.14 M/uL (4.20-5.40); White Blood Count 7.83 K/ul (4.8-10.8)
[2023-01-29 06:45] LABS: BUN Creatinine Ratio 10.6 (10-20); Bilirubin,Total 0.5 mg/dl (0.2-1.0); Calcium 9.1 mg/dl (8.6-10.3); Creatinine Clr Calc Pharmacy 46.3 ml/min; Est GFR (African American) 59.9 ml/min; Est GFR (Non-African American) 51.7 ml/min; Globulin 3.1 gm/dl (2.5-4.0); Potassium 4.8 mmol/L (3.5-5.1); Total Protein 6.1 gm/dl (6.0-8.3)
[2023-01-29] MEDS: INSULIN ASPART PER UNIT CHARGE SC SCH ×4 (08:39→22:06)
[2023-01-29] MEDS: LANTUS PER UNIT CHARGE SQ SCH ×2 (08:39→22:05)
[2023-01-29] MEDS: ENOXAPARIN INJ 40 MG/0.4 ML SYR SQ SCH (08:40)
[2023-01-29] MEDS: TICAGRELOR 90 MG TAB PO SCH ×2 (08:41→22:07)
[2023-01-29] MEDS: MAGNESIUM OXIDE 400 MG TAB PO SCH ×2 (08:41→22:09)
[2023-01-29] MEDS: FAMOTIDINE 20 MG TAB PO SCH ×2 (08:41→22:09)
[2023-01-29] MEDS: DICLOFENAC SOD 1% GEL 100 GM TUBE EXT SCH ×4 (08:41→22:06)
[2023-01-29] MEDS: DOCUSATE SODIUM 100 MG CAP PO SCH ×2 (08:42→22:08)
[2023-01-29] MEDS: ASPIRIN 81 MG ECTAB PO SCH (08:42)
[2023-01-29] MEDS: SUCRALFATE 1 GM/10 ML UDC PO SCH ×3 (08:42→16:23)
[2023-01-29] MEDS: PANTOprazole 40 MG TAB PO SCH ×2 (08:42→22:09)
[2023-01-29] MEDS: FOLIC ACID 1 MG TAB PO SCH (08:42)
[2023-01-29] MEDS: SPIRONOLACTONE 25 MG TAB PO SCH (08:42)
[2023-01-29] MEDS: POLYETHYLENE (MIRALAX) 17 GM PACK PO SCH ×3 (08:43→22:07)
--- NOTE | 2023-01-29 11:51 | Hospitalist Progress Note ---
Date of Service January 29, 2023 Assessment & Plan (1) Chest pain: (2) Leukocytosis: (3) Hyponatremia: (4) Hyperglycemia: (5) GERD (gastroesophageal reflux disease): (6) Hypothyroidism: (7) Hypertension: (8) CAD (coronary artery disease): (9) Dyslipidemia: (10) Congestive heart failure: (11) Diabetes mellitus: Plan Pt is a 62 yo female who presents to the hospital on 01/24/23 for left sided chest pain with radiation to her left arm. Constipation - Patient with abdominal discomfort and nausea without vomiting more pronounced in the morning and after eating - Possibly the cause of her abdominal discomfort. - Laxatives (e.g. Miralax) used until now with little/no effect - Patient finished golytely dose yesterday and has had 2 small bowel movements since then. She reports no significant improvement in her abdominal pain. Will continue to monitor during the day. Will also change diet to clear liquid diet to decrease risk of postprandial nausea and increase oral hydration. Diabetes mellitus -Uncontrolled DM with last A1C of 10% in 12/2022 - Possible contributor to her nausea (gastroparesis?) - patient states she does have this. -Chepe, SSI in hospital Chest pain - pt has known CAD - Initial EKG without ischemic signs and NSR, troponin negative x2 - last TTE was 12/2022 and EF >60% without wall motion abnormalities - pt describes stabbing pain that originates in her left shoulder and moves centrally to her chest and own her arm. Likely due to musculoskeletal cause or nerve impingement. - Continue Tylenol and Voltaren gel as management. Leukocytosis -WBC 13.0 on admission -Now resolved (7.83 today) Hyponatremia -Na 128 on admission, 135 today -Possibly due to poor solute intake -Monitor BMP Hyperglycemia -BSG 376 on admission, recheck of 238 -Likely stress hyperglycemia -Continue to monitor as pt begins basal/bolus insulin in hospital GERD (gastroesophageal reflux disease) - Continue pantoprazole Hypothyroidism -Continue levothyroxine Hypertension -Noted history of such but not on any antihypertensives -BP stable for now -Continue to monitor -Deferring initiation of ELHAM/ARB or other antihypertensive to PCP CAD (coronary artery disease) -Unlikely to have ACS at present given negative troponin and reassuring EKG -Continue aspirin, Brillinta, atorvastatin Dyslipidemia -Continue atorvastatin Congestive heart failure -exacerbation unlikely given clear lungs on exam and euvolemic status -Continue spironolactone Plan FENGI: Clear Fluids Code status: Full DVT prophylaxis: Lovenox Isolation: None Unit: Medical/surgical with telemetry Disposition planning: Likely home Admission and Anticipated Discharge Date Admission Date: January 24, 2023 Supervising Physician Co-Signing Physician Notes Resident Physician Supervision Note: I independently interviewed and examined the patient and verified the real history and physical, reviewed labs and image studies and agree with resident findings and care plan. No change in symptoms. had very small bowel movement after golytely yesterday followed by loose liquid. Vitals noted, in general she is awake and alert pleasant no distress. HEENT normocephalic atraumatic mucous membranes moist. Breathing unlabored no accessory muscle use good effort. Skin shows no rashes no pallor or icterus. Otherwise as above Nauseasuspect constipation mediated versus GERD -likely with underlying gastroparesis and DM related GI motility dysfunction - A1c - 10.2 (uncontrolled A1c readings since 2019) -continue PPI, sucralfate, continue bowel regimen -Switch diet to clear liquid Viral sinusitismostly reassurance and supportive care, Afrin may help symptomatic control with decongestionAware of limitations on use to prevent rebound congestion Chest and arm painrib relatedOMT done earlier in this hospital stay, continue Voltaren gel. Recent torsadebut fortunately nothing about current admission/symptom complex appears cardiac. DVT prophylaxisLovenox home once she can eat/drink Subjective Pt is a 62 yo female who presents to the hospital on 01/24/23 for left sided chest pain that radiated down her left arm. EKG and Troponins done in the ED were negative for ischemia. Today she states she has had 2 small bowel movements, the last one being pretty runny. Despite these bowel movements, she states she doesn't feel much change compared to yesterday with regards to her abdominal pain. Still endorses having nausea, but today indicates it's worse in the morning and gradually gets better as the day goes on, although sometimes feels more marked. She has been feeling similar nausea for a while prior to her current admission. She has also had a previous episode of abdominal pain in the past that resolved spontaneously. She denies fevers, chills, SOB, lightheadedness, syncope, malaise, weakness, or any other symptom. Review of Systems Review of Systems: As per HPI. Physical Exam Physical Exam: General: Alert. Oriented to person, time, and place. Afebrile. No acute distress. Cardiac: Regular rate and rhythm, no murmurs/rubs/gallops. Respiratory: Clear to auscultation bilaterally, no wheezes/rales/rhonchi. No increased work of breathing. Symmetrical chest rise. No respiratory distress. Abdomen: Soft, tenderness to palpation more marked in bilateral lower quadrants, non-distended. Bowel sounds present. Lower Extremities: No lower extremity edema or swelling. No deep calf pain. Pillo's negative bilaterally. Results & Data Results & Data Vital Signs (Past 12 Hours) Vital Signs Temp Pulse Pulse Resp BP Pulse Ox O2 Del Method 01/29/23 11:18 36.7 C 78 18 109/74 97 Room Air 01/29/23 07:23 36.5 C 78 18 111/76 99 Room Air 01/29/23 05:57 76 01/29/23 03:14 36.6 C 79 18 107/67 97 Room Air Resident Activity Tracking Resident Involvement: Resident Care Provided Care Provided: Adult Hospital Medicine (6) Hypothyroidism Hypothyroidism type: unspecified Qualified Code(s): E03.9 - Hypothyroidism, unspecified (8) CAD (coronary artery disease) Associated angina: unspecified whether angina present Coronary Disease- Associated Artery/Lesion type: [place] artery [place] vs. transplanted heart: [place] heart Qualified Code(s): I25.10 - Atherosclerotic heart disease of [place] coronary artery without angina pectoris
[2023-01-29] MEDS: ACETAMINOPHEN 500 MG TAB PO PRN (12:24)
[2023-01-29] MEDS: ATORVASTATIN 40 MG TAB PO SCH (22:07)
[2023-01-30] MEDS: LEVOTHYROXINE SODIUM 88 MCG TABLET PO SCH (06:30)
[2023-01-30] MEDS: TICAGRELOR 90 MG TAB PO SCH ×2 (08:52→20:53)
[2023-01-30] MEDS: POLYETHYLENE (MIRALAX) 17 GM PACK PO SCH ×5 (08:52→22:53)
[2023-01-30] MEDS: SUCRALFATE 1 GM/10 ML UDC PO SCH ×3 (08:52→16:57)
[2023-01-30] MEDS: ASPIRIN 81 MG ECTAB PO SCH (08:52)
[2023-01-30] MEDS: MAGNESIUM OXIDE 400 MG TAB PO SCH ×2 (08:53→20:53)
[2023-01-30] MEDS: PANTOprazole 40 MG TAB PO SCH ×2 (08:53→20:53)
[2023-01-30] MEDS: ENOXAPARIN INJ 40 MG/0.4 ML SYR SQ SCH (08:53)
[2023-01-30] MEDS: FOLIC ACID 1 MG TAB PO SCH (08:53)
[2023-01-30] MEDS: SPIRONOLACTONE 25 MG TAB PO SCH (08:53)
[2023-01-30] MEDS: DICLOFENAC SOD 1% GEL 100 GM TUBE EXT SCH ×4 (08:53→20:54)
[2023-01-30] MEDS: FAMOTIDINE 20 MG TAB PO SCH ×2 (08:53→20:53)
[2023-01-30] MEDS: DOCUSATE SODIUM 100 MG CAP PO SCH (08:53)
[2023-01-30] MEDS: INSULIN ASPART PER UNIT CHARGE SC SCH ×4 (09:38→21:21)
[2023-01-30] MEDS: LANTUS PER UNIT CHARGE SQ SCH ×2 (09:38→21:21)
--- NOTE | 2023-01-30 14:31 | Hospitalist Progress Note ---
Date of Service January 30, 2023 Assessment & Plan (1) Chest pain: (2) Leukocytosis: (3) Hyponatremia: (4) Hyperglycemia: (5) GERD (gastroesophageal reflux disease): (6) Hypothyroidism: (7) Hypertension: (8) CAD (coronary artery disease): (9) Dyslipidemia: (10) Congestive heart failure: (11) Diabetes mellitus: Plan Pt is a 62 yo female who presents to the hospital on 01/24/23 for left sided chest pain with radiation to her left arm. Constipation - Patient with minimal residual abdominal discomfort and nausea without vomiting more pronounced in the morning and after eating - Possibly the cause of her abdominal discomfort. - Laxatives (e.g. Miralax) used until now with little/no effect - Patient finished golytely dose yesterday and has had a couple of small bowel movements since then. - Will continue clear liquid diet - GI consult placed Diabetes mellitus -Uncontrolled DM with last A1C of 10% in 12/2022 - Possible contributor to her nausea (gastroparesis?) - patient states she does have this. -Lant, SSI in hospital Chest pain - pt has known CAD - Initial EKG without ischemic signs and NSR, troponin negative x2 - last TTE was 12/2022 and EF >60% without wall motion abnormalities - pt describes stabbing pain that originates in her left shoulder and moves centrally to her chest and own her arm. Likely due to musculoskeletal cause or nerve impingement. - Continue Tylenol and Voltaren gel as management. Leukocytosis -resolved Hyponatremia -Na 128 on admission, 135 yesterday -Possibly due to poor solute intake -Monitor BMP Hyperglycemia -BSG 376 on admission, recheck of 238 -Likely stress hyperglycemia -Continue to monitor as pt begins basal/bolus insulin in hospital GERD (gastroesophageal reflux disease) - Continue pantoprazole Hypothyroidism -Continue levothyroxine Hypertension -Noted history of such but not on any antihypertensives -BP stable for now -Continue to monitor -Deferring initiation of ELHAM/ARB or other antihypertensive to PCP CAD (coronary artery disease) -Unlikely to have ACS at present given negative troponin and reassuring EKG -Continue aspirin, Brillinta, atorvastatin Dyslipidemia -Continue atorvastatin Congestive heart failure -exacerbation unlikely given clear lungs on exam and euvolemic status -Continue spironolactone Plan FENGI: Clear Fluids Code status: Full DVT prophylaxis: Lovenox Isolation: None Unit: Medical/surgical with telemetry Disposition planning: Likely home Admission and Anticipated Discharge Date Admission Date: January 24, 2023 Supervising Physician Co-Signing Physician Notes Resident Physician Supervision Note: I independently interviewed and examined the patient and verified the real history and physical, reviewed labs and image studies and agree with resident findings and care plan. No change in symptoms. had very small bowel movement after golytely followed by loose liquid. continues to be nauseous with food. Vitals noted, in general she is awake and alert pleasant no distress. HEENT normocephalic atraumatic mucous membranes moist. Breathing unlabored no accessory muscle use good effort. Skin shows no rashes no pallor or icterus. Otherwise as above Nauseasuspect constipation with underlying gastroparesis and DM related GI motility dysfunction - A1c - 10.2 (uncontrolled A1c readings since 2019) -continue PPI, sucralfate, continue bowel regimen Chest and arm painrib relatedOMT done earlier in this hospital stay, continue Voltaren gel. Recent torsadebut fortunately nothing about current admission/symptom complex appears cardiac. DVT prophylaxisLovenox home once she can eat/drink Subjective Pt is a 62 yo female who presents to the hospital on 01/24/23 for left sided chest pain that radiated down her left arm. EKG and Troponins done in the ED were negative for ischemia. Today she states she has had a few small bowel movements, the last one being pretty runny. Also endorsing persistent nausea. She denies fevers, chills, SOB, lightheadedness, syncope, malaise, weakness, or any other symptom. Review of Systems Review of Systems: As per HPI. Physical Exam Physical Exam: General: Alert. Oriented to person, time, and place. Afebrile. No acute distress. Cardiac: Regular rate and rhythm, no murmurs/rubs/gallops. Respiratory: Clear to auscultation bilaterally, no wheezes/rales/rhonchi. No increased work of breathing. Symmetrical chest rise. No respiratory distress. Abdomen: Soft, nontender, non-distended. Bowel sounds present. Lower Extremities: No lower extremity edema or swelling. No deep calf pain. Pillo's negative bilaterally. Results & Data Results & Data Vital Signs (Past 12 Hours) Vital Signs Temp Pulse Resp BP Pulse Ox O2 Del Method 01/30/23 10:26 Room Air 01/30/23 10:20 36.4 C L 103 H 16 132/83 98 Room Air 01/30/23 09:46 Room Air 01/30/23 07:31 36.3 C L 68 18 108/66 96 Room Air Resident Activity Tracking Resident Involvement: Resident Care Provided Care Provided: Adult Hospital Medicine (6) Hypothyroidism Hypothyroidism type: unspecified Qualified Code(s): E03.9 - Hypothyroidism, unspecified (8) CAD (coronary artery disease) Associated angina: unspecified whether angina present Coronary Disease- Associated Artery/Lesion type: [place] artery [place] vs. transplanted heart: [place] heart Qualified Code(s): I25.10 - Atherosclerotic heart disease of [place] coronary artery without angina pectoris
[2023-01-30] MEDS: ACETAMINOPHEN 500 MG TAB PO PRN (14:33)
[2023-01-30] MEDS: GABAPENTIN 100 MG CAP PO SCH (20:53)
[2023-01-30] MEDS: ATORVASTATIN 40 MG TAB PO SCH (20:54)
[2023-01-30] MEDS: DOCUSATE SODIUM/SENNA 50/8.6MG TAB PO SCH (21:21)
[2023-01-31] MEDS: POLYETHYLENE (MIRALAX) 17 GM PACK PO SCH ×4 (02:30→15:07)
[2023-01-31] MEDS: LEVOTHYROXINE SODIUM 88 MCG TABLET PO SCH (06:33)
[2023-01-31] MEDS: SUCRALFATE 1 GM/10 ML UDC PO SCH ×3 (07:48→16:56)
[2023-01-31] MEDS: ASPIRIN 81 MG ECTAB PO SCH (08:28)
[2023-01-31] MEDS: DICLOFENAC SOD 1% GEL 100 GM TUBE EXT SCH ×3 (08:28→16:57)
[2023-01-31] MEDS: DOCUSATE SODIUM/SENNA 50/8.6MG TAB PO SCH (08:29)
[2023-01-31] MEDS: FOLIC ACID 1 MG TAB PO SCH (08:29)
[2023-01-31] MEDS: FAMOTIDINE 20 MG TAB PO SCH (08:29)
[2023-01-31] MEDS: MAGNESIUM OXIDE 400 MG TAB PO SCH (08:30)
[2023-01-31] MEDS: PANTOprazole 40 MG TAB PO SCH (08:30)
[2023-01-31] MEDS: GABAPENTIN 100 MG CAP PO SCH (08:30)
[2023-01-31] MEDS: TICAGRELOR 90 MG TAB PO SCH (08:31)
[2023-01-31] MEDS: SPIRONOLACTONE 25 MG TAB PO SCH (08:31)
[2023-01-31] MEDS: ENOXAPARIN INJ 40 MG/0.4 ML SYR SQ SCH (08:32)
[2023-01-31] MEDS: INSULIN ASPART PER UNIT CHARGE SC SCH ×3 (08:44→17:26)
[2023-01-31] MEDS: LANTUS PER UNIT CHARGE SQ SCH (08:44)
--- NOTE | 2023-01-31 09:37 | Gastrointestinal Consultation ---
Date of Consultation January 31, 2023 Assessment & Plan (1) Nausea: (2) Chronic constipation: Plan 1. Continue Pantoprazole 40 mg BID and Carafate 1 g ACHS. 2. Continue antiemetics as directed. 3. Continue MiraLAX daily and MoM as needed. 4. Will plan for outpatient colonoscopy to be scheduled by our office. Thank you for allowing us to participate in the care of this patient. If you have any questions or concerns, please do not hesitate to contact us. Supervising Physician Co-Signing Physician Notes I saw the patient and agree with the findings as documented by DENIZ Pathak History of Present Illness Reason for Consultation: Chronic nausea and constipation Requesting Physician: Dr. Davis Attending Physician: Virgie Patel MD History of Present Illness 60 year old female with a history of CAD s/p stents, poorly-controlled IDDM2, HTN, hypothyroidism, active tobacco use, OCD, anxiety, and multiple prior admissions for dizziness/vertigo admitted for a two-day history of dizziness/vertigo and nausea which has been ongoing chronically. She was last evaluated by our service during an inpatient admission in August of 2021. She has been evaluated for PUD and gastroparesis. She was found on EGD in March of 2021 to have gastritis. GES was normal. She is status post cholecystectomy. Continues with constipation which she describes as very small caliber bowel movements. There is nausea which she reports has not improved or worsened despite changes in her medications. No vomiting. Tolerating her diet but she is eating less. Has sustained some weight loss. Reports abdominal bloating and diffuse abdominal discomfort. No GIB. CT a/p was unremarkable. Has been started on a bowel regimen by primary team and continues Pantoprazole 40 mg BID and Carafate 1 g ACHS. Has been prescribed antiemetics with no change in symptoms. Allergies Allergy/AdvReac Type Severity Reaction Status Date / Time dulaglutide [From Trulicity] AdvReac Intermediate stomach Verified 01/23/23 23:13 pain albiglutide [From Tanzeum] AdvReac Unknown CAN'T Verified 01/23/23 23:13 REMEMBER Home Medications Medication Instructions Recorded Confirmed Type blood-glucose meter (Prodigy 10/15/21 12/19/22 History Autocode Meter kit) levothyroxine 88 mcg tablet 88 mcg PO DAILY #30 tabs 10/15/21 01/23/23 Rx pen needle, diabetic 32 gauge x #200 ea 06/28/22 12/19/22 Rx 5/32" (BD Ultra-Fine Cary Pen Needle) aspirin 81 mg tablet,delayed 81 mg PO QAM #30 tabs 10/29/22 01/23/23 Rx release docusate sodium 100 mg capsule 100 mg PO BID #60 caps 10/29/22 01/23/23 Rx polyethylene glycol 3350 17 gram 17 g PO DAILY #30 ea 10/29/22 01/23/23 Rx oral powder packet (Miralax) ticagrelor 90 mg tablet (Brilinta) 90 mg PO BID #60 tabs 10/29/22 01/23/23 Rx pantoprazole 40 mg tablet,delayed 40 mg PO DAILY 12/19/22 01/23/23 History release ascorbic acid (vitamin C) 500 mg 1,000 mg (2 x 500 mg) PO QAM #60 12/28/22 01/23/23 Rx tablet (Vitamin C) tabs multivitamin with folic acid 400 1 tab PO QAM #30 tabs 12/28/22 01/23/23 Rx mcg tablet (Daily-Seferino (with folic acid)) folic acid 1 mg tablet 1 mg PO QAM #30 tabs 01/22/23 01/23/23 Rx magnesium oxide 400 mg (241.3 mg 400 mg PO BID 90 days #180 tabs 01/22/23 01/23/23 Rx magnesium) tablet acetaminophen 500 mg tablet 1,000 mg PO Q8H PRN Pain 01/23/23 01/23/23 History (Pharbetol) atorvastatin 80 mg tablet 80 mg PO HS 01/23/23 01/23/23 History calcium carbonate 500 mg-vitamin 2 tab PO BID 01/23/23 01/23/23 History D3 15 mcg (600 unit) tablet (Os-Michael 500 + D3) ergocalciferol (vitamin D2) 1,250 50,000 unit PO WK 01/23/23 01/23/23 History mcg (50,000 unit) capsule insulin glargine 100 unit/mL 20 unit SC HS 01/23/23 01/23/23 History subcutaneous solution (Lantus U-100 Insulin) insulin regular hum U-500 conc 500 4 unit subcut DIRECTED 01/23/23 01/23/23 History unit/mL(3 mL) subcut pen (Humulin R U-500 (Conc) Insulin Kwikpen) magnesium hydroxide 400 mg/5 mL 30 ml PO DAILY PRN Constipation 01/23/23 01/23/23 History oral suspension (Milk of Magnesia) sennosides 8.6 mg-docusate sodium 1 tab-cap PO DAILY PRN Constipation 01/23/23 01/23/23 History 50 mg tablet (Senokot-S) spironolactone 25 mg tablet 25 mg PO DAILY 01/23/23 01/23/23 History diclofenac sodium 1 % topical gel 2 g EXT QID #100 grams 01/31/23 Rx (Voltaren Arthritis Pain) gabapentin 100 mg capsule 200 mg (2 x 100 mg) PO BID #60 caps 01/31/23 Rx sucralfate 100 mg/mL oral 1 g (10 mL) PO AC #1,000 mL 01/31/23 Rx suspension Patient History Medical History Chest pain Vitamin D deficiency Diabetes mellitus type 2 in obese Acute on chronic combined systolic and diastolic CHF (congestive heart failure) Nausea vomiting and diarrhea Bradycardia with 41-50 beats per minute Hyperglycemia Chest pain Hypokalemia Hypomagnesemia Accelerated hypertension Albuminuria Diabetic nephropathy associated with type 2 diabetes mellitus Depression Osteoarthritis Chronic headaches CAD (coronary artery disease) No remaining occlusive disease after 2 LAD drug eluting stents 10/22/20. Follows with Dr. Harris NSTEMI (non-ST elevated myocardial infarction) 10/22/2020 s/p 2 CHANTAL Vulvitis Diabetes type 2, uncontrolled IDDM Dyslipidemia Tobacco abuse Hypertension Hypothyroidism Obesity Anxiety Surgical History History of cardiac catheterization 10/22/2020 Dominant: Right Left Main (% Stenosis): Normal LAD (% Stenosis): Proximal (99) and Mid (75) Circumflex (% Stenosis): Normal (luminal irregularities) RCA (% Stenosis): Normal (Luminal irregularities) 2 CHANTAL to LAD S/P coronary artery stent placement 2 CHANTAL to LAD 10/22/2020 History of cholecystectomy History of dental surgery History of tonsillectomy Family History Unknown Diabetes Thyroid disorder Father Diabetes Other No family history of adverse response to anesthesia Denies family history of Ovarian cancer Prostate cancer Breast cancer Colorectal cancer Uterine cancer Social History Smoking Status: Current every day smoker Tobacco Type: Cigarettes packs per day: 0.5; Cigarettes Per Day: 10; Second Hand Exposure: No; Do You Dip or Chew Tobacco: No; Hx Alcohol Use: No Hx Substance Use: No Preferred Language: Syriac Communication Ability: Effective Visual Impairment: No Limitations Traveling Engineer Required: No Beliefs That Will Affect Care: None marital status: Single Current Living Situation: Alone current occupational status: disabled How many Children do You have: 0 Feels Safe at Home: Yes Safety Concerns Comment: Gets nervous sometimes because she lives alone, gets shaky from anxiety Diet: regular caffeine: Yes Dental Care, Regularly: No Physical Activity Frequency: Does not Exercise Seatbelt Use: always Sunscreen Use: No Assistive Devices: Walker Review of Systems Constitutional: as per Subjective / HPI and + fatigue Gastrointestinal: as per Subjective / HPI Physical Exam Constitutional: + obese; no acute distress Eyes: EOM intact bilaterally Neck: normal visual inspection Respiratory: normal respiratory effort, lungs clear to auscultation Cardiovascular: Rate/Rhythm: regular rate and regular rhythm Gastrointestinal (Abdomen): Inspection/Auscultation: + abdomen distended and normal bowel sounds Percussion/Palpation: + abdomen tender and abdomen soft; no guarding and abdomen not rigid Psychiatric: A+Ox3, euthymic affect Results & Data Vital Signs (Past 12 Hours) Vital Signs Temp Pulse Resp BP Pulse Ox O2 Del Method 01/31/23 07:58 36.6 C 76 18 134/82 97 Room Air Diagnostic Findings Abnormal lab results 01/30/23 01/30/23 01/30/23 Range/Units 11:54 16:51 20:24 POC Glucose 246 H 117 H 119 H (70-99) mg/dl 01/31/23 01/31/23 Range/Units 00:31 07:54 POC Glucose 177 H 271 H (70-99) mg/dl PG Care Time/CCT Total # of Minutes Spent Total Time Spent with Patient: Total time spent is greater than 50% in coordination of care (as documented) at patient's floor/unit and/or counseling patient: Coding Level of Care Code 28887 INT INP/OBS CARE MIN Diagnoses Nausea R11.0 Chronic constipation K59.09
--- NOTE | 2023-01-31 12:21 | Discharge Summary ---
Date of Service January 31, 2023 Admission HPI Per Admitting Provider Pt is 62 yo F with PMH CAD s/p CHANTAL x2, HFpEF, HTN, HLD, DM2, tobacco use disorder, hypothyroidism, previous hospitalization 12/19-12/28 at [facility] for fall w/ cardiac arrest 2/2 ventricular tachycardia presenting with chest pain. Pt reports intermittent substernal L sided crushing chest pain of 7/10 severity with radiation to L arm since her discharge on 12/18 but this has become far more frequent and largely constant for past 3 days. Chest pain is associated with exertional dyspnea as well. Pt has not eaten much over past 3 days due to this pain. Denies fever, chills, cough, palpitations. She does feel sensation of burning in her throat when the chest pain occurs fairly consistently. Pt arrived to ER hemodynamically stable. Initial evaluation significant for WBC 13, Na 128, glucose 376 -> 238. Negative CXR, negative troponin. ER interventions include famotidine 20 mg IV ordered by admitting hospitalist. At present, pt reports continued chest pain but no new complaints. Admission Exam Per Admitting Provider General: well-appearing, no acute distress HEENT: PERRL, EOMI, conjunctivae clear without injection, anicteric sclerae, moist mucous membranes, clear oropharynx without exudate or erythema Neck: supple, trachea midline, no thyromegaly, no JVD, no cervical lymphadenopathy CV: RRR, normal S1 and S2, no murmurs Resp: CTAB, no increased work of breathing, no crackles or wheezes Abd: Soft, nontender, nondistended, no guarding or rebound, no hepatosplenomegaly MSK: Normal bulk of all four extremities. No reproducible chest pain with sternal pressure Neuro: AOx3, no focal motor or sensory deficits Skin: no rashes or lesions, warm and dry Ext: no LE peripheral edema or erythema, capillary refill <2s in all four extremities, 2+ LE peripheral pulses b/l Principal Diagnosis musculoskeletal chest/shoulder pain; gastroparesis Discharge Exam General: Alert. Oriented to person, time, and place. Afebrile. No acute distress. Cardiac: Regular rate and rhythm, no murmurs/rubs/gallops. Respiratory: Clear to auscultation bilaterally, no wheezes/rales/rhonchi. No increased work of breathing. Symmetrical chest rise. No respiratory distress. Abdomen: Soft, nontender, non-distended. Bowel sounds present. Lower Extremities: No lower extremity edema or swelling. No deep calf pain. Pillo's negative bilaterally. Discharge Data Allergies Allergy/AdvReac Type Severity Reaction Status Date / Time dulaglutide [From Trulicity] AdvReac Intermediate stomach Verified 01/23/23 23:13 pain albiglutide [From Tanzeum] AdvReac Unknown CAN'T Verified 01/23/23 23:13 REMEMBER Consultations 01/24/23 00:11 ED Decision to Admit Stat 01/30/23 13:48 Consult Gastroenterology Routine Diabetes Follow up Diabetes Follow-up Needed for HgbA1c >9% Hospital Course (1) Chest pain: (2) Leukocytosis: (3) Hyponatremia: (4) Hyperglycemia: (5) GERD (gastroesophageal reflux disease): (6) Hypothyroidism: (7) Hypertension: (8) CAD (coronary artery disease): (9) Dyslipidemia: (10) Congestive heart failure: (11) Diabetes mellitus: Plan Pt is a 62 yo female who presents to the hospital on 01/24/23 for left sided chest pain with radiation to her left arm. Constipation (Resolved) - Recommend use of laxatives after discharge - GI consult reccs Continue MiraLAX daily and Milk of Magnesia as needed Continue Pantoprazole 40mg bid and Carafate 1g ACHS for nausea Planning outpatient colonoscopy in their office Diabetes mellitus (Chronic, not well controlled) -Uncontrolled DM with last A1C of 10% in 12/2022 -Possible gastroparesis and lower extremity neuropathy as a complication of this -Continue Insulin at home after discharge -Advised to keep close monitoring of her home blood sugars and to adjust her insulin doses based on her meals, but to check her blood sugar after eating her meals to ensure the amount of insulin calculated and drawn is enough to cover for said meal. -Advise outpatient follow up to monitor and evaluate possible gastroparesis and paresthesias Chest pain (Resolved) - Initial EKG without ischemic signs and NSR, troponin negative x2 - pt describes stabbing pain that originates in her left shoulder and moves centrally to her chest and own her arm. Likely due to musculoskeletal cause or nerve impingement. - Continue Tylenol and Voltaren gel. Leukocytosis (Resolved) Hyponatremia (Resolved) GERD (gastroesophageal reflux disease) (Chronic, stable) - Continue pantoprazole 40mg bid and Carafate 1g ACHS Hypothyroidism (Chronic, stable) -Continue levothyroxine Hypertension (Chronic, stable) -Noted history of such but not on any antihypertensives -BP stable for now -Encourage evaluation by PCP to discuss initiation of ELHAM/ARBs CAD (coronary artery disease) (Chronic, stable) -Continue aspirin, Brillinta, atorvastatin Dyslipidemia (Chronic, stable) -Continue atorvastatin Congestive heart failure (Chronic, stable) -Continue spironolactone Patient evaluated and found to be clinically and hemodynamically stable, and for to be discharged today. Encouraged continued monitoring of blood sugars and adequate follow up with PCP for post-discharge evaluation and monitoring of her chronic conditions. Total Time Total Time Spent Total Time Spent (In Minutes): As per attending attestation. Discharge Plan Discharge Items Patient Disposition: Home - Self-Care Reason For Visit: CHEST PAIN Discharge Diagnosis: musculoskeletal chest pain Activity: Per Instructions section Non-emergency contact: Primary Care Provider and Occupational Health Technician Call non-emergency contact if: your symptoms worsen Follow-up/Referrals: Jc Zaman DO [Primary Care Provider] - 02/04/23 2:30 pm Diet: Carb Consistent or DM2 and Heart Healthy Addtl Attending Provider Instructions: You were admitted to the hospital due to chest pain. During your initial evaluation in the Emergency Department, it was considered unlikely that this was related to heart disease / ischemia since your EKG and your cardiac markers (Troponins) were both negative. Upon further evaluation, it was considered more likely that this was related to a musculoskeletal cause. Therefore, we encourage you to use Tylenol or NSAIDs (e.g. Ibuprofen) as management, as well as Voltaren gel. [place] were also experiencing constipation, which was resolved by using laxatives. After discharge, we encourage you to continue using MiraLAX daily and Milk of Magnesia as needed to promote bowel movements. For your nausea, it's possible it's related to gastroparesis (your stomach not moving a lot) due to your uncontrolled diabetes, plus your history of acid reflux. We encourage you to continue taking Protonix 40mg bid and Carafate 1g before meals. We also strongly encourage you to discuss these issues with your primary care provider so they can also evaluate you and give their own recommendations in terms of management. We strongly advise you to take your blood sugar before meals and measure your insulin based on that and the meal you are about to have, but we also encourage you to take your blood sugar after eating to make sure the amount of insulin you measured is correct ("checking your work"). It's important you continue taking your insulin and other medications as prescribed. A discharge summary will be sent to your primary care physician to ensure continuity of care. Please bring this discharge summary with you to your next office appointment so that your provider can review it at that time. Follow-up appointments: Make a follow-up appointment with your PCP within the next week. It is very important that you follow up with them shortly after discharge from the hospital. Keep all your follow-up appointments as already scheduled. If you cannot make an appointment, notify your provider. Medications: Your medication list has been reviewed and reconciled upon discharge to ensure accuracy and continuity of care. An updated list of all your medications is inc luded with your hospital discharge paperwork. Please review this list closely, and make note of any changes. If you have any issues filling these prescriptions, please call [phone] and ask to leave a message for Dr. Davis. Take your medications as instructed; do not skip a dose of your medicines. Make sure all of your doctors know every medicine you are taking (including iyka-git-idapphk medicines, vitamins, and supplements). Call your primary care provider before taking any new medicines (including over- the-counter medicines, vitamins, and supplements), because some of these may interact with your current medications, or may make your symptoms worse. Tell your primary care provider if you cannot afford your medications. CONTACT YOUR PRIMARY CARE PROVIDER if you experience any of the following: Worsening of symptoms Fever, chills, or fatigue Difficulty following your treatment plan, or difficulty taking medications CALL 911 OR GO TO THE EMERGENCY DEPARTMENT if you experience any of the following: Sudden, severe abdominal pain or nausea/vomiting Severe chest pain, or chest pain that radiates (moves) to your jaw or arm Sudden, severe shortness of breath or difficulty breathing Thank you for allowing us to participate in your care. Pending Studies at Discharge: No Stand-Alone Forms: [employer], Smoking Cessation Medications and DC Order Prescriptions: New sucralfate 100 mg/mL Suspension 1 g PO AC Qty: 1000 0RF gabapentin 100 mg Capsule 200 mg PO BID Qty: 60 0RF diclofenac sodium [Voltaren Arthritis Pain] 1 % Gel 2 g EXT QID Qty: 100 0RF Continued (DME) pen needle, diabetic [BD Ultra-Fine Cary Pen Needle] 32 gauge x 5/32" needle See Dose Instructions .ROUTE .MEDSUPPLY Qty: 200 11RF Dose Instruction: As directed Rx Instructions: use 2 times daily or as directed by physician to monitor blood sugar folic acid 1 mg tablet 1 mg PO QAM Qty: 30 0RF magnesium oxide 400 mg (241.3 mg magnesium) tablet 400 mg PO BID 90 Days Qty: 180 3RF (DME) blood-glucose meter [Digicompanion Autocode Meter] Kit See Rx Instructions .Route Rx Instructions: As directed levothyroxine 88 mcg tablet 88 mcg PO DAILY Qty: 30 5RF aspirin 81 mg Tablet,Delayed Release (Dr/Ec) 81 mg PO QAM Qty: 30 0RF Rx Instructions: Over the counter docusate sodium 100 mg Capsule 100 mg PO BID Qty: 60 0RF Rx Instructions: Over the counter polyethylene glycol 3350 [Miralax] 17 gram Powder In Packet 17 g PO DAILY Qty: 30 0RF Brilinta 90 mg tablet 90 mg PO BID Qty: 60 0RF pantoprazole 40 mg tablet,delayed release (DR/EC) 40 mg PO DAILY Rx Instructions: TAKE ONE TABLET BY MOUTH ONCE DAILY ascorbic acid (vitamin C) [Vitamin C] 500 mg Tablet 1,000 mg PO QAM Qty: 60 0RF multivitamin with folic acid [Daily-Seferino (with folic acid)] 400 mcg Tablet 1 tab PO QAM Qty: 30 0RF sennosides-docusate sodium [Senokot-S] 8.6-50 mg Tablet 1 tab-cap PO DAILY PRN (Reason: Constipation) acetaminophen [Pharbetol] 500 mg Tablet 1,000 mg PO Q8H PRN (Reason: Pain) magnesium hydroxide [Milk of Magnesia] 400 mg/5 mL Suspension 30 ml PO DAILY PRN (Reason: Constipation) Humulin R U-500 (Conc) Kwikpen 500 unit/mL (3 mL) insulin pen 4 unit SUBCUT DIRECTED Rx Instructions: 4 UNITS BSG >200. atorvastatin 80 mg tablet 80 mg PO HS insulin glargine [Lantus U-100 Insulin] 100 unit/mL solution 20 unit SC HS spironolactone 25 mg tablet 25 mg PO DAILY ergocalciferol (vitamin D2) 1,250 mcg (50,000 unit) capsule 50,000 unit PO WK Rx Instructions: MONDAYS calcium carbonate-vitamin D3 [Os-Michael 500 + D3] 500 mg-15 mcg (600 unit) tablet 2 tab PO BID Discharge Orders: Discharge Order (Routine); Ordered 01/31/23 Ordered By: Eli Richardson/Other Patient Handouts: Low-Fiber Diet, Diabetes Food Shop Meals Prep, Diabetes Carbs Fats Protein, Diabetes Inspect Feet, Diabetes Control Without Meds, ED Diabetic Gastroparesis Admission Data Admit Date/Time: 01/24/23 01:05 Attending Provider: Virgie Patel Admit Provider: Sharyn Butts Primary Care Provider: Jc Zaman Other Providers: [employer]; Laurent Gaytan; Randall Glover Supervising Physician Co-Signing Physician Notes Resident Physician Supervision Note: I independently interviewed and examined the patient and verified the eral history and physical, reviewed labs and image studies and agree with resident findings and care plan. Has been having small bowel movements. Able to keep food down but in small portions. Vitals noted, in general she is awake and alert pleasant no distress. HEENT normocephalic atraumatic mucous membranes moist. Breathing unlabored no accessory muscle use good effort. Skin shows no rashes no pallor or icterus. Abdomen - soft, diffuse non specific tenderness. Nauseasuspect constipation with underlying gastroparesis and DM related GI motility dysfunction - A1c - 10.2 (uncontrolled A1c readings since 2019) -Received PPI, sucralfate, bowel regimen. -Evaluated by GI -will have her follow up for outpatient colonoscopy. -BID PPI, carafate daily. -Discussed dietary changes - increased fresh leafy vegetables in diet. Chest and arm painrib relatedOMT done earlier in this hospital stay, to continue Voltaren gel prn on discharge Resident Activity Tracking Resident Involvement: Resident Care Provided Care Provided: Adult Hospital Medicine
[2023-01-31] MEDS: ONDANSETRON 4 MG OD TAB PO PRN (15:06)
[2023-01-31] MEDS: ACETAMINOPHEN 500 MG TAB PO PRN (17:04)
[2023-01-31] MEDS ORDERED: GABAPENTIN 100 MG CAP PO SCH (21:00)
== END 2023-01-31 18:31 | disposition home health service (06) | DRG 313 ==
LOC: ED 20:08 → SUATTDRO 01-24 01:05 → 2N 01-24 01:05 → 3W 01-30 10:19

== ENCOUNTER 2023-02-28 19:16 | Inpatient (IN) ==
[2023-02-28] MEDS ORDERED: SODIUM CHLORIDE 0.9% 500 ML IV STA (19:43)
[2023-02-28] MEDS ORDERED: ONDANSETRON INJ 2 MG/ML 2 ML VIAL IV STA (19:48)
[2023-02-28 20:16] LABS: Appearance Urine Clear (Clear); Bilirubin Urine Negative (Negative); Blood Urine Negative (Negative); Color Urine Yellow; Glucose Urine UA 2+ (Negative); Ketones Urine Negative (Negative); Leukocyte Esterase Urine Trace (Negative); Nitrite Urine Negative (Negative); Protein Urine Negative (Negative); Specific Gravity Urine 1.006 (1.000-1.030); Urobilinogen Urine Negative (Negative); pH Urine 6.5 (4.5-7.5)
[2023-02-28 20:50] LABS: Basophils # (auto) 0.04 K/uL (0.00-0.20); Basophils % (auto) 0.3 %; Eosinophils # (auto) 0.32 K/uL (0.00-0.50); Eosinophils % (auto) 2.6 %; Hematocrit (blood only) 35.9 % (37.0-47.0); Hemoglobin 12.2 g/dl (12.0-16.0); Immature Granulocytes # (auto) 0.05 K/uL (0.01-0.20); Immature Granulocytes % (auto) 0.4 %; Lymphocytes # (auto) 3.14 K/uL (1.20-3.40); Lymphocytes % (auto) 25.5 %; Mean Corpuscular Hemoglobin 28.7 pg (25.0-34.0); Mean Corpuscular Volume 84.5 fL (80.0-100.0); Mean Platelet Volume 10.6 fL (9.4-12.4); Monocytes # (auto) 0.65 K/uL (0.11-0.59); Monocytes % (auto) 5.3 %; Neutrophils # (auto) 8.11 K/uL (1.40-6.50); Neutrophils % (auto) 65.9 %; Platelet Count 366 K/uL (130-400); RDW Coefficient of Variation 13.2 % (11.5-14.5); RDW Standard Deviation 40.4 fL (36.4-46.3); Red Blood Count 4.25 M/uL (4.20-5.40); White Blood Count 12.31 K/ul (4.8-10.8)
[2023-02-28 20:54] LABS: Albumin Globulin Ratio 0.9 (0.9-2); Albumin Level 3.1 gm/dl (3.4-5.0); BUN Creatinine Ratio 5.1 (10-20); Bilirubin,Total 0.4 mg/dl (0.2-1.0); Calcium 8.3 mg/dl (8.6-10.3); Creatinine Clr Calc Pharmacy 67.5 ml/min; Est GFR (African American) 92.3 ml/min; Est GFR (Non-African American) 79.7 ml/min; Globulin 3.6 gm/dl (2.5-4.0); Potassium 2.6 mmol/L (3.5-5.1); Total Protein 6.7 gm/dl (6.0-8.3)
[2023-02-28 20:59] LABS: Bacteria Urine Automated Negative (Negative); Cast Urine Automated 0 /lpf (0-5); RBC Urine Automated 0-4 /hpf (0-4); WBC Urine Automated 0 /hpf (0-5)
[2023-02-28 21:00] LABS: Renal Epithelial Cells Urine 0-5 /lpf (0-5)
[2023-02-28 21:01] LABS: Troponin I High Sensitivity 8.9 pg/ml (0-14)
[2023-02-28 21:31] LABS: Adenovirus PCR Not Detected (NotDetected); Bordetella parapertussis PCR Not Detected (NotDetected); Bordetella pertussis PCR Not Detected (NotDetected); Chlamydia pneumoniae PCR Not Detected (NotDetected); Coronavirus 229E PCR Not Detected (NotDetected); Coronavirus CoV-2 (COVID19)PCR Not Detected (NotDetected); Coronavirus HKU1 PCR Not Detected (NotDetected); Coronavirus NL63 PCR Not Detected (NotDetected); Coronavirus OC43PCR Not Detected (NotDetected); Human Metapneumovirus PCR Not Detected (NotDetected); Influenza A PCR Not Detected (NotDetected); Influenza B PCR Not Detected (NotDetected); Mycoplasma pneumoniae PCR Not Detected (NotDetected); Parainfluenza Virus 1 PCR Not Detected (NotDetected); Parainfluenza Virus 2 PCR Not Detected (NotDetected); Parainfluenza Virus 3 PCR Not Detected (NotDetected); Parainfluenza Virus 4 PCR Not Detected (NotDetected); Respiratory Syncytial VirusPCR Not Detected (NotDetected); Rhinovirus/Enterovirus PCR Not Detected (NotDetected)
[2023-02-28] MEDS ORDERED: OPTIRAY 320 500ml IV ONE (21:48)
[2023-02-28] MEDS ORDERED: MoRPHine SULFATE 4 MG/ML 1 ML CARP\\VIAL IV STA (22:01)
--- NOTE | 2023-02-28 22:06 | Emergency Department Note ---
Impression & Plan Abdominal pain, epigastric, Nausea, Diarrhea ED Provider Note NAME: ELIAN SORENSEN AGE: 62 SEX: Female INFORMANT: Patient ED PROVIDER(S): Sean Zaidi MD CHIEF COMPLAINT: Abdominal pain PLAN: Disposition: Admitted Outpatient prescription management: none Referral: None MEDICAL DECISION MAKING: Patient presented because of nausea and abdominal pain. She also noted diarrhea. She was given oral Zofran in the ambulance and 4 mg of IV Zofran here. Patient noted continued pain and discomfort. She was treated with a small dose of IV morphine. Patient had blood work, urinalysis, and imaging performed. Patient was found to be severely hypokalemic. Potassium replacement initiated via IV. Patient was also given a dose of IV Tylenol. She still notes abdominal discomfort and nausea. In light of her recent cardiac issues including dysrhythmia and hypokalemia further management in the hospital was felt to be appropriate. CT imaging did not reveal any acute pathology. Consultation was made with Dr. Laurent Gaytan of the [facility] service. Patient was evaluated in the ER for further management. Care/management discussed with: sales account manager Level of care consideration(s): After review of the information above and other included data, I feel the patient requires escalation of care to admission Triage Nursing notes: reviewed and agree them. Vital Signs: reviewed and remarkable for no significant abnormalities Additional History obtained from: none Chronic Medical/Social Conditions affecting care: Diabetes, CAD Prior/ Outside/ External records reviewed: none Differential Diagnosis: Infection, dehydration, metabolic abnormality, hypo/hyperglycemia, electrolyte disturbance, anemia, hypoxia, cardiac sources, peptic ulcer disease, obstruction, pancreatitis, toxicologic, neurologic, as well as other pathologies. Diagnostics, independently interpreted by me: ECG: Twelve-lead ECG reveals sinus bradycardia 57 bpm. Low voltage QRS. Nonspecific ST anteriorly. When compared to 23 January 2023 nonspecific changes worse however when compared to 24 December 2022 the morphology is similar. Cardiac Monitoring: Cardiac monitoring ordered by me: The patient was placed on continuous cardiac monitoring and observed. It revealed a normal sinus rhythm at 60 beats per minute without ectopy or evidence of dysrhythmia. Medical decision rules: none Imaging studies: CT scan of the abdomen pelvis was negative for obstruction or free air. HPI: 62 year old Female arrives for evaluation of epigastric abdominal pain. This started 2 days ago and is persisting. The patient also notes the following associated symptoms, nausea and diarrhea. The patient has been given oral Zofran prehospital for relieving factors. Current pain is rated as 7/10. Patient has a history of GI issues. Pt denies LOC, headache, fevers, chills, diaphoresis, visual changes, neck pain, chest pain, breathing difficulties, vomiting, back pain, melena, hematochezia, urinary symptoms, numbness, weakness, lymphadenopathy, rash, or other complaints. PAST MEDICAL HISTORY: See Below, hypokalemia, diabetes PAST SURGICAL HISTORY: See Below, SOCIAL HISTORY: See Below, smoker HOME MEDICATIONS: See Below ALLERGIES: See Below VITALS: See Below PHYSICAL EXAMINATION: GENERAL: Awake, alert, uncomfortable-appearing, in no distress HENT: Normocephalic, atraumatic. Oropharynx unremarkable. EYES: Normal conjunctiva. Sclera non-icteric. NECK: Inspection normal. Non-tender. Supple. No nuchal rigidity. FROM. No masses. RESPIRATORY: Clear to auscultation. No wheezes. No rales. Normal respiratory effort. CARDIAC: Normal rate. Normal rhythm. No murmurs. No rubs. Extremities warm and well perfused. Pulses equal. No JVD. GI: Soft, non-distended. Epigastric tenderness to palpation. No rebound or guarding. No masses. RECTAL: Deferred. MUSCULOSKELETAL: Atraumatic. Chest examination reveals no tenderness. The back is symmetrical on inspection without obvious abnormality. There is no CVA tenderness to palpation. No joint edema. LOWER EXTREMITIES: Calves are equal size bilaterally and non-tender. No edema. No discoloration. NEURO: Normal sensorium. No sensory or motor deficits noted. SKIN: No rash or jaundice noted. PROCEDURES: none CRITICAL CARE: none OBSERVATION NOTE: none Past Med/Surg History Medical History Chest pain Vitamin D deficiency Diabetes mellitus type 2 in obese Acute on chronic combined systolic and diastolic CHF (congestive heart failure) Nausea vomiting and diarrhea Bradycardia with 41-50 beats per minute Hyperglycemia Chest pain Hypokalemia Hypomagnesemia Accelerated hypertension Albuminuria Diabetic nephropathy associated with type 2 diabetes mellitus Depression Osteoarthritis Chronic headaches CAD (coronary artery disease) No remaining occlusive disease after 2 LAD drug eluting stents 10/22/20. Follows with Dr. Harris NSTEMI (non-ST elevated myocardial infarction) 10/22/2020 s/p 2 CHANTAL Vulvitis Diabetes type 2, uncontrolled IDDM Dyslipidemia Tobacco abuse Hypertension Hypothyroidism Obesity Anxiety Surgical History History of cardiac catheterization 10/22/2020 Dominant: Right Left Main (% Stenosis): Normal LAD (% Stenosis): Proximal (99) and Mid (75) Circumflex (% Stenosis): Normal (luminal irregularities) RCA (% Stenosis): Normal (Luminal irregularities) 2 CHANTAL to LAD S/P coronary artery stent placement 2 CHANTAL to LAD 10/22/2020 History of cholecystectomy History of dental surgery History of tonsillectomy Family History Unknown Diabetes Thyroid disorder Father Diabetes Other No family history of adverse response to anesthesia Denies family history of Ovarian cancer Prostate cancer Breast cancer Colorectal cancer Uterine cancer Social History Smoking Status: Current every day smoker Tobacco Type: Cigarettes packs per day: 0.5; Cigarettes Per Day: 10; Second Hand Exposure: No; Do You Dip or Chew Tobacco: No; Hx Alcohol Use: No Hx Substance Use: No Preferred Language: Bulgarian Communication Ability: Effective Visual Impairment: No Limitations Primary Clinician Required: No Beliefs That Will Affect Care: None marital status: Single Current Living Situation: Alone current occupational status: disabled How many Children do You have: 0 Feels Safe at Home: Yes Safety Concerns Comment: Gets nervous sometimes because she lives alone, gets shaky from anxiety Diet: regular caffeine: Yes Dental Care, Regularly: No Physical Activity Frequency: Does not Exercise Seatbelt Use: always Sunscreen Use: No Assistive Devices: Walker Allergies Allergies Allergy/AdvReac Type Severity Reaction Status Date / Time dulaglutide [From Trulicity] AdvReac Intermediate stomach Verified 01/23/23 23:13 pain albiglutide [From Tanzeum] AdvReac Unknown CAN'T Verified 01/23/23 23:13 REMEMBER Home Meds Home Medications Medication Instructions Recorded Confirmed blood-glucose meter ([employer] 10/15/21 02/28/23 Autocode Meter kit) pantoprazole 40 mg tablet,delayed 40 mg PO QAM 12/19/22 02/28/23 release acetaminophen 500 mg tablet 1,000 mg PO Q8H PRN Pain 01/23/23 02/28/23 (Pharbetol) atorvastatin 80 mg tablet 80 mg PO HS 01/23/23 02/28/23 calcium carbonate 500 mg-vitamin 2 tab PO BID 01/23/23 02/28/23 D3 15 mcg (600 unit) tablet (Os-Michael 500 + D3) ergocalciferol (vitamin D2) 1,250 50,000 unit PO WK 01/23/23 02/28/23 mcg (50,000 unit) capsule insulin glargine 100 unit/mL 10 unit SC HS 01/23/23 02/28/23 subcutaneous solution (Lantus U-100 Insulin) insulin regular hum U-500 conc 500 4 unit subcut DIRECTED 01/23/23 02/28/23 unit/mL(3 mL) subcut pen (Humulin R U-500 (Conc) Insulin Kwikpen) magnesium hydroxide 400 mg/5 mL 30 ml PO DAILY PRN Constipation 01/23/23 02/28/23 oral suspension (Milk of Magnesia) spironolactone 25 mg tablet 25 mg PO QAM 01/23/23 02/28/23 diclofenac sodium 1 % topical gel 2 g EXT QID PRN Pain 02/28/23 02/28/23 (Voltaren Arthritis Pain) levothyroxine 88 mcg tablet 88 mcg PO DAILYBB 02/28/23 02/28/23 Previous Rx's Medication Instructions Recorded pen needle, diabetic 32 gauge x #200 ea 06/28/22" (BD Ultra-Fine [place] Pen Needle) aspirin 81 mg tablet,delayed 81 mg PO QAM #30 tabs 10/29/22 release docusate sodium 100 mg capsule 100 mg PO BID #60 caps 10/29/22 multivitamin with folic acid 400 1 tab PO QAM #30 tabs 12/28/22 mcg tablet (Daily-Seferino (with folic acid)) magnesium oxide 400 mg (241.3 mg 400 mg PO BID 90 days #180 tabs 01/22/23 magnesium) tablet sucralfate 100 mg/mL oral 1 g (10 mL) PO AC #1,000 mL 01/31/23 suspension ascorbic acid (vitamin C) 500 mg 1,000 mg (2 x 500 mg) PO QAM #60 02/14/23 tablet (Vitamin C) tabs folic acid 1 mg tablet 1 mg PO QAM #30 tabs 02/14/23 gabapentin 100 mg capsule 200 mg (2 x 100 mg) PO BID #60 caps 02/14/23 ticagrelor 90 mg tablet (Brilinta) 90 mg PO BID #60 tabs 02/14/23 peg 3350-electrolytes 236 240 ml PO ONCE #4,000 mL 02/20/23 gram-22.74 gram-6.74 gram-5.86 gram solution (Golytely) Results & Data (ED) Vital Signs Vital Signs - 24 hr 02/28/23 19:29 02/28/23 19:45 02/28/23 19:50 Pulse Rate 68 74 67 Pulse Rate from SpO2 Sensor 73 67 Respiratory Rate 16 27 H 17 Respiratory Effort / Characteristics Non-Labored Respiratory Depth Normal Blood Pressure 121/72 137/58 L Blood Pressure Mean 88 84 Pulse Oximetry 96 96 96 Sepsis Recent Fever Within 48 Hours No Sepsis New/Unexplained Change in Mental Status No Sepsis Action Taken by Nursing No Action Required 02/28/23 20:00 02/28/23 23:02 02/28/23 23:10 Pulse Rate 68 67 67 Pulse Rate from SpO2 Sensor Respiratory Rate 18 21 15 Respiratory Effort / Characteristics Respiratory Depth Blood Pressure Blood Pressure Mean Pulse Oximetry Sepsis Recent Fever Within 48 Hours Sepsis New/Unexplained Change in Mental Status Sepsis Action Taken by Nursing 02/28/23 23:20 02/28/23 23:30 02/28/23 23:40 Pulse Rate 67 66 70 Pulse Rate from SpO2 Sensor Respiratory Rate 19 21 14 Respiratory Effort / Characteristics Respiratory Depth Blood Pressure Blood Pressure Mean Pulse Oximetry Sepsis Recent Fever Within 48 Hours Sepsis New/Unexplained Change in Mental Status Sepsis Action Taken by Nursing 02/28/23 23:50 03/01/23 00:00 03/01/23 00:10 Pulse Rate 68 66 66 Pulse Rate from SpO2 Sensor Respiratory Rate 23 18 17 Respiratory Effort / Characteristics Respiratory Depth Blood Pressure Blood Pressure Mean Pulse Oximetry Sepsis Recent Fever Within 48 Hours Sepsis New/Unexplained Change in Mental Status Sepsis Action Taken by Nursing 03/01/23 00:20 03/01/23 00:30 03/01/23 00:40 Pulse Rate 63 62 63 Pulse Rate from SpO2 Sensor Respiratory Rate 16 15 21 Respiratory Effort / Characteristics Respiratory Depth Blood Pressure Blood Pressure Mean Pulse Oximetry Sepsis Recent Fever Within 48 Hours Sepsis New/Unexplained Change in Mental Status Sepsis Action Taken by Nursing 03/01/23 00:50 03/01/23 01:00 03/01/23 01:10 Pulse Rate 65 67 64 Pulse Rate from SpO2 Sensor Respiratory Rate 19 18 19 Respiratory Effort / Characteristics Respiratory Depth Blood Pressure Blood Pressure Mean Pulse Oximetry Sepsis Recent Fever Within 48 Hours Sepsis New/Unexplained Change in Mental Status Sepsis Action Taken by Nursing 03/01/23 01:20 03/01/23 01:30 03/01/23 01:40 Pulse Rate 63 67 63 Pulse Rate from SpO2 Sensor Respiratory Rate 18 18 15 Respiratory Effort / Characteristics Respiratory Depth Blood Pressure Blood Pressure Mean Pulse Oximetry Sepsis Recent Fever Within 48 Hours Sepsis New/Unexplained Change in Mental Status Sepsis Action Taken by Nursing 03/01/23 01:50 03/01/23 02:00 03/01/23 02:10 Pulse Rate 65 66 71 Pulse Rate from SpO2 Sensor Respiratory Rate 18 21 15 Respiratory Effort / Characteristics Respiratory Depth Blood Pressure Blood Pressure Mean Pulse Oximetry Sepsis Recent Fever Within 48 Hours Sepsis New/Unexplained Change in Mental Status Sepsis Action Taken by Nursing 03/01/23 02:20 03/01/23 02:30 03/01/23 02:40 Pulse Rate 68 72 68 Pulse Rate from SpO2 Sensor Respiratory Rate 16 17 18 Respiratory Effort / Characteristics Respiratory Depth Blood Pressure Blood Pressure Mean Pulse Oximetry Sepsis Recent Fever Within 48 Hours Sepsis New/Unexplained Change in Mental Status Sepsis Action Taken by Nursing 03/01/23 02:47 03/01/23 02:50 Pulse Rate 70 69 Pulse Rate from SpO2 Sensor Respiratory Rate 15 20 Respiratory Effort / Characteristics Respiratory Depth Blood Pressure 124/67 Blood Pressure Mean 86 Pulse Oximetry Sepsis Recent Fever Within 48 Hours Sepsis New/Unexplained Change in Mental Status Sepsis Action Taken by Nursing Laboratory Data 02/28/23 19:55 02/28/23 19:55 Lab Results 02/28/23 02/28/23 02/28/23 Range/Units 19:34 19:38 19:55 WBC 12.31 H (4.8-10.8) K/ul RBC 4.25 (4.20-5.40) M/uL Hgb 12.2 (12.0-16.0) g/dl Hct 35.9 L (37.0-47.0) % MCV 84.5 (80.0-100.0) fL MCH 28.7 (25.0-34.0) pg MCHC 34.0 (32.0-36.0) g/dL RDW Std Deviation 40.4 (36.4-46.3) fL RDW Coeff of Umair 13.2 (11.5-14.5) % Plt Count 366 (130-400) K/uL MPV 10.6 (9.4-12.4) fL Immature Gran % (Auto) 0.4 % Neut % (Auto) 65.9 % Lymph % (Auto) 25.5 % [place] % (Auto) 5.3 % Eos % (Auto) 2.6 % Baso % (Auto) 0.3 % Neut # (Auto) 8.11 H (1.40-6.50) K/uL Lymph # (Auto) 3.14 (1.20-3.40) K/uL [place] # (Auto) 0.65 H (0.11-0.59) K/uL Eos # (Auto) 0.32 (0.00-0.50) K/uL Baso # (Auto) 0.04 (0.00-0.20) K/uL Immature Gran # (Auto) 0.05 (0.01-0.20) K/uL Sodium 139 (136-145) mmol/L Potassium 2.6 L (3.5-5.1) mmol/L Chloride 101 (98-107) mmol/L Carbon Dioxide 30 (21-32) mmol/L Anion Gap 8 (3-11) BUN 4 L (6-23) mg/dl Creatinine 0.79 (0.6-1.2) mg/dl Est Cr Clr Drug Dosing 67.5 ml/min Est GFR ( Amer) 92.3 ml/min Est GFR (Non-Af Amer) 79.7 ml/min BUN/Creatinine Ratio 5.1 L (10-20) Glucose 277 H (70-99(Fasting)) mg/dl POC Glucose 330 H* (70-99) mg/dl Calcium 8.3 L (8.6-10.3) mg/dl Magnesium 1.4 L (1.7-2.4) mg/dl Total Bilirubin 0.4 (0.2-1.0) mg/dl AST 13 (13-39) U/L ALT 7 (7-52) U/L Alkaline Phosphatase 138 H (34-104) U/L Troponin I High Sens 8.9 (0-14) pg/ml Total Protein 6.7 (6.0-8.3) gm/dl Albumin 3.1 L (3.4-5.0) gm/dl Globulin 3.6 (2.5-4.0) gm/dl Albumin/Globulin Ratio 0.9 (0.9-2) Lipase 3 L (11-82) U/L Urine Color Yellow Urine Appearance Clear (Clear) Urine pH 6.5 (4.5-7.5) Ur Specific [place] 1.006 (1.000-1.030) Urine Protein Negative (Negative) Urine Glucose (UA) 2+ H (Negative) Urine Ketones Negative (Negative) Urine Blood Negative (Negative) Urine Nitrite Negative (Negative) Urine Bilirubin Negative (Negative) Urine Urobilinogen Negative (Negative) Ur Leukocyte Esterase Trace H (Negative) Urine WBC (Auto) 0 (0-5) /hpf Urine RBC (Auto) 0-4 (0-4) /hpf U Hyaline Cast (Auto) 0 (0-5) /lpf U Epithel Cells (Auto) 5-10 H (0-5) /lpf Urine Bacteria (Auto) Negative (Negative) Ur Renal Epithelial Cell 0-5 (0-5) /lpf Adenovirus (PCR) (NotDetected) B. pertussis DNA (PCR) (NotDetected) B.parapertussis DNA PCR (NotDetected) C. pneumoniae DNA (PCR) (NotDetected) Coronavirus OC43 (PCR) (NotDetected) Coronavirus HKU1 (PCR) (NotDetected) Coronavirus 229E (PCR) (NotDetected) SARS-CoV-2 (PCR) (NotDetected) Coronavirus NL63 (PCR) (NotDetected) Human Metapneumovir PCR (NotDetected) Influenza Type A (PCR) (NotDetected) Influenza Type B (PCR) (NotDetected) M. pneumoniae (PCR) (NotDetected) Parainfluenza 1 (PCR) (NotDetected) Parainfluenza 2 (PCR) (NotDetected) Parainfluenza 3 (PCR) (NotDetected) Parainfluenza 4 (PCR) (NotDetected) RSV (PCR) (NotDetected) Entero/Rhino (PCR) (NotDetected) 02/28/23 02/28/23 Range/Units 19:56 23:15 WBC (4.8-10.8) K/ul RBC (4.20-5.40) M/uL Hgb (12.0-16.0) g/dl Hct (37.0-47.0) % MCV (80.0-100.0) fL MCH (25.0-34.0) pg MCHC (32.0-36.0) g/dL RDW Std Deviation (36.4-46.3) fL RDW Coeff of Umair (11.5-14.5) % Plt Count (130-400) K/uL MPV (9.4-12.4) fL Immature Gran % (Auto) % Neut % (Auto) % Lymph % (Auto) % [place] % (Auto) % Eos % (Auto) % Baso % (Auto) % Neut # (Auto) (1.40-6.50) K/uL Lymph # (Auto) (1.20-3.40) K/uL [place] # (Auto) (0.11-0.59) K/uL Eos # (Auto) (0.00-0.50) K/uL Baso # (Auto) (0.00-0.20) K/uL Immature Gran # (Auto) (0.01-0.20) K/uL Sodium (136-145) mmol/L Potassium (3.5-5.1) mmol/L Chloride (98-107) mmol/L Carbon Dioxide (21-32) mmol/L Anion Gap (3-11) BUN (6-23) mg/dl Creatinine (0.6-1.2) mg/dl Est Cr Clr Drug Dosing ml/min Est GFR ( Amer) ml/min Est GFR (Non-Af Amer) ml/min BUN/Creatinine Ratio (10-20) Glucose (70-99(Fasting)) mg/dl POC Glucose 225 H (70-99) mg/dl Calcium (8.6-10.3) mg/dl Magnesium (1.7-2.4) mg/dl Total Bilirubin (0.2-1.0) mg/dl AST (13-39) U/L ALT (7-52) U/L Alkaline Phosphatase (34-104) U/L Troponin I High Sens (0-14) pg/ml Total Protein (6.0-8.3) gm/dl Albumin (3.4-5.0) gm/dl Globulin (2.5-4.0) gm/dl Albumin/Globulin Ratio (0.9-2) Lipase (11-82) U/L Urine Color Urine Appearance (Clear) Urine pH (4.5-7.5) Ur Specific [place] (1.000-1.030) Urine Protein (Negative) Urine Glucose (UA) (Negative) Urine Ketones (Negative) Urine Blood (Negative) Urine Nitrite (Negative) Urine Bilirubin (Negative) Urine Urobilinogen (Negative) Ur Leukocyte Esterase (Negative) Urine WBC (Auto) (0-5) /hpf Urine RBC (Auto) (0-4) /hpf U Hyaline Cast (Auto) (0-5) /lpf U Epithel Cells (Auto) (0-5) /lpf Urine Bacteria (Auto) (Negative) Ur Renal Epithelial Cell (0-5) /lpf Adenovirus (PCR) Not Detected (NotDetected) B. pertussis DNA (PCR) Not Detected (NotDetected) B.parapertussis DNA PCR Not Detected (NotDetected) C. pneumoniae DNA (PCR) Not Detected (NotDetected) Coronavirus OC43 (PCR) Not Detected (NotDetected) Coronavirus HKU1 (PCR) Not Detected (NotDetected) Coronavirus 229E (PCR) Not Detected (NotDetected) SARS-CoV-2 (PCR) Not Detected (NotDetected) Coronavirus NL63 (PCR) Not Detected (NotDetected) Human Metapneumovir PCR Not Detected (NotDetected) Influenza Type A (PCR) Not Detected (NotDetected) Influenza Type B (PCR) Not Detected (NotDetected) M. pneumoniae (PCR) Not Detected (NotDetected) Parainfluenza 1 (PCR) Not Detected (NotDetected) Parainfluenza 2 (PCR) Not Detected (NotDetected) Parainfluenza 3 (PCR) Not Detected (NotDetected) Parainfluenza 4 (PCR) Not Detected (NotDetected) RSV (PCR) Not Detected (NotDetected) Entero/Rhino (PCR) Not Detected (NotDetected) Administered Medications Discontinued Medications Sodium Chloride (Nss) 500 mls @ 999 mls/hr IV .Q31M STA Stop: 02/28/23 20:13 Last Infusion: 02/28/23 21:36 Dose: Infused Documented By: Admin: 02/28/23 19:57 Dose: 999 mls/hr Documented By: Potassium Chloride (K Esa / Wtr) 10 meq in 100 mls @ 100 mls/hr IV Q1H TONI Stop: 03/01/23 00:14 Last Infusion: 03/01/23 01:53 Dose: Infused Documented By: Admin: 02/28/23 23:46 Dose: 100 mls/hr Documented By: Infusion: 02/28/23 23:46 Dose: Infused Documented By: Admin: 02/28/23 22:18 Dose: 100 mls/hr Documented By: Potassium Chloride (K Esa / Wtr) 10 meq in 100 mls @ 100 mls/hr IV ONE ONE Stop: 03/01/23 02:37 Last Admin: 03/01/23 01:49 Dose: 100 mls/hr Documented By: Acetaminophen (Ofirmev) 1,000 mg in 100 mls @ 400 mls/hr IV NOW STA Stop: 03/01/23 02:02 Last Admin: 03/01/23 02:46 Dose: 400 mls/hr Documented By: Ioversol (Optiray 320 500ml) 83 ml IV ONCE ONE Stop: 02/28/23 21:49 Last Admin: 02/28/23 21:48 Dose: 83 ml Documented By: CAMILLA Morphine Sulfate (Morphine Sulfate 4 Mg/Ml 1 Ml Carp\\Vial) 4 mg IV NOW STA Stop: 02/28/23 22:02 Last Admin: 02/28/23 22:18 Dose: 4 mg Documented By: Ondansetron HCl (Ondansetron Inj 2 Mg/Ml 2 Ml Vial) 4 mg IV NOW STA Stop: 02/28/23 19:49 Last Admin: 02/28/23 19:58 Dose: 4 mg Documented By: Imaging Data Radiologist's Impression: Abdomen/Pelvis CT 02/28/23 19:54 Exam(s): CT ABDOMEN + PELVIS With Contrast IV Amt: 83 ml opti 320 EXAM: CT Abdomen and Pelvis With Intravenous Contrast CLINICAL HISTORY: Epigastric abdominal pain, vomiting. TECHNIQUE: Axial computed tomography images of the abdomen and pelvis with intravenous contrast. CTDI is 25.03 mGy and DLP is 1208.64 mGy-cm. Automated exposure control was utilized for the study. A dose lowering technique was utilized adhering to the principles of ALARA. CONTRAST: Patient received 83 ml opti 320 of IV contrast COMPARISON: CT abdomen and pelvis with contrast 12/19/2022 FINDINGS: Lung bases: Unremarkable. No mass. No consolidation. ABDOMEN: Liver: The contours of the liver are stable in appearance. Gallbladder and bile ducts: Stable postsurgical changes consistent with prior cholecystectomy. No biliary dilatation. Pancreas: Unremarkable. No mass. No ductal dilation. Spleen: Unremarkable. No splenomegaly. Adrenals: Unremarkable. No mass. Kidneys and ureters: The kidneys demonstrate stable contours and enhancement with subcentimeter cortical cyst inferiorly on the left. No obstructive nephrolithiasis. Stomach and bowel: The stomach is decompressed without fluid or retained oral contents. No evidence for bowel obstruction. No asymmetric bowel mucosal abnormality identified with interval removal resolution of mucosal thickening involving the hepatic flexure. Scattered diverticulosis. Minimal stool burden. PELVIS: Appendix: No findings to suggest acute appendicitis. Bladder: Unremarkable. No mass. Reproductive: Unremarkable as visualized. ABDOMEN and PELVIS: Intraperitoneal space: Unremarkable. No free air. No significant fluid collection. Bones/joints: No acute fracture. No dislocation. Soft tissues: Unremarkable. Vasculature: Unremarkable. No abdominal aortic aneurysm. Lymph nodes: Unremarkable. No enlarged lymph nodes. IMPRESSION: 1. Stable postsurgical changes consistent with prior cholecystectomy. No biliary dilatation. 2. The stomach is decompressed. No bowel obstruction. No free intraperitoneal fluid or pneumoperitoneum. Electronically signed by: Ronak Tracy MD 03/01/23 01:18 AM Discharge Plan Visit Data Chief Complaint: Abdominal Pain Stated Complaint: ABDOMINAL PAIN, VOMITING, DIARRHEA, BSG 428 ED Provider: Sean Zaidi Discharge Problem: Abdominal pain, epigastric, Nausea, Diarrhea Forms Stand Alone Forms: [employer] Prescriptions Prescriptions: No Action (DME) pen needle, diabetic [BD Ultra-Fine [place] Pen Needle] 32 gauge x 5/32" needle See Dose Instructions .ROUTE .MEDSUPPLY Qty: 200 11RF Dose Instruction: As directed Rx Instructions: use 2 times daily or as directed by physician to monitor blood sugar magnesium oxide 400 mg (241.3 mg magnesium) tablet 400 mg PO BID 90 Days Qty: 180 3RF ascorbic acid (vitamin C) [Vitamin C] 500 mg tablet 1,000 mg PO QAM Qty: 60 0RF folic acid 1 mg tablet 1 mg PO QAM Qty: 30 0RF gabapentin 100 mg capsule 200 mg PO BID Qty: 60 0RF Brilinta 90 mg tablet 90 mg PO BID Qty: 60 0RF peg 3350-electrolytes [Golytely] 236-22.74-6.74 -5.86 gram recon soln 240 ml PO ONCE Qty: 4000 0RF Rx Instructions: TAKE DIRECTED PER SPLIT DOSE INSTRUCTIONS (DME) blood-glucose meter [[employer] Aut[employer] Meter] Kit See Rx Instructions .Route Rx Instructions: As directed aspirin 81 mg Tablet,Delayed Release (Dr/Ec) 81 mg PO QAM Qty: 30 0RF Rx Instructions: Over the counter docusate sodium 100 mg Capsule 100 mg PO BID Qty: 60 0RF Rx Instructions: Over the counter pantoprazole 40 mg tablet,delayed release (DR/EC) 40 mg PO QAM Rx Instructions: TAKE ONE TABLET BY MOUTH ONCE DAILY multivitamin with folic acid [Daily-Seferino (with folic acid)] 400 mcg Tablet 1 tab PO QAM Qty: 30 0RF acetaminophen [Pharbetol] 500 mg Tablet 1,000 mg PO Q8H PRN (Reason: Pain) magnesium hydroxide [Milk of Magnesia] 400 mg/5 mL Suspension 30 ml PO DAILY PRN (Reason: Constipation) Humulin R U-500 (Conc) Kwikpen 500 unit/mL (3 mL) insulin pen 4 unit SUBCUT DIRECTED Rx Instructions: 4 UNITS BSG >200. atorvastatin 80 mg tablet 80 mg PO HS insulin glargine [Lantus U-100 Insulin] 100 unit/mL solution 10 unit SC HS spironolactone 25 mg tablet 25 mg PO QAM ergocalciferol (vitamin D2) 1,250 mcg (50,000 unit) capsule 50,000 unit PO WK Rx Instructions: MONDAYS calcium carbonate-vitamin D3 [Os-Michael 500 + D3] 500 mg-15 mcg (600 unit) tablet 2 tab PO BID Rx Instructions: need new script sucralfate 100 mg/mL Suspension 1 g PO AC Qty: 1000 0RF diclofenac sodium [Voltaren Arthritis Pain] 1 % gel 2 g EXT QID PRN (Reason: Pain) levothyroxine 88 mcg tablet 88 mcg PO DAILYBB Referrals Referrals: Jc Zaman DO [Primary Care Provider] -
[2023-02-28] MEDS: POTASSIUM CHLORIDE / WTR 10 MEQ/100 ML PLCT IV SCH ×2 (22:18→23:46)
--- NOTE | 2023-03-01 01:19 | CT Scan Report ---
Exam(s): CT ABDOMEN + PELVIS With Contrast IV Amt: 83 ml opti 320 EXAM: CT Abdomen and Pelvis With Intravenous Contrast CLINICAL HISTORY: Epigastric abdominal pain, vomiting. TECHNIQUE: Axial computed tomography images of the abdomen and pelvis with intravenous contrast. CTDI is 25.03 mGy and DLP is 1208.64 mGy-cm. Automated exposure control was utilized for the study. A dose lowering technique was utilized adhering to the principles of ALARA. CONTRAST: Patient received 83 ml opti 320 of IV contrast COMPARISON: CT abdomen and pelvis with contrast 12/19/2022 FINDINGS: Lung bases: Unremarkable. No mass. No consolidation. ABDOMEN: Liver: The contours of the liver are stable in appearance. Gallbladder and bile ducts: Stable postsurgical changes consistent with prior cholecystectomy. No biliary dilatation. Pancreas: Unremarkable. No mass. No ductal dilation. Spleen: Unremarkable. No splenomegaly. Adrenals: Unremarkable. No mass. Kidneys and ureters: The kidneys demonstrate stable contours and enhancement with subcentimeter cortical cyst inferiorly on the left. No obstructive nephrolithiasis. Stomach and bowel: The stomach is decompressed without fluid or retained oral contents. No evidence for bowel obstruction. No asymmetric bowel mucosal abnormality identified with interval removal resolution of mucosal thickening involving the hepatic flexure. Scattered diverticulosis. Minimal stool burden. PELVIS: Appendix: No findings to suggest acute appendicitis. Bladder: Unremarkable. No mass. Reproductive: Unremarkable as visualized. ABDOMEN and PELVIS: Intraperitoneal space: Unremarkable. No free air. No significant fluid collection. Bones/joints: No acute fracture. No dislocation. Soft tissues: Unremarkable. Vasculature: Unremarkable. No abdominal aortic aneurysm. Lymph nodes: Unremarkable. No enlarged lymph nodes. IMPRESSION: 1. Stable postsurgical changes consistent with prior cholecystectomy. No biliary dilatation. 2. The stomach is decompressed. No bowel obstruction. No free intraperitoneal fluid or pneumoperitoneum. Electronically signed by: Ronak Tracy MD 03/01/23 01:18 AM
[2023-03-01] MEDS ORDERED: POTASSIUM CHLORIDE / WTR 10 MEQ/100 ML PLCT IV ONE (01:38)
[2023-03-01] MEDS ORDERED: ACETAMINOPHEN 1,000 MG/100 ML VIAL IV STA (01:48)
--- NOTE | 2023-03-01 02:12 | History & Physical Report ---
Date of Service March 01, 2023 Assessment & Plan (1) Nausea: Plan: 62 year old female admitted for N/V/diarrhea and hypokalemia. N/V/Diarrhea/Abd pain: -Patient with repeat episode x2 days. Has had multiple episodes in the past. -WBC 12.31, K 2.6, Creatinine 0.79, lipase 3, liver enzymes unremarkable. -CT A&P negative for any acute process. -Likely secondary to gastroenteritis. -Will admit and monitor on cardiac monitoring given hypokalemia and past ventricular tachycardia. -Potassium and magnesium management as below. -Clear liquid diet, advance as tolerated. -Tylenol for pain PRN. Hypokalemia, Hypomagnesemia: -K 2.6, Mg 1.4 on arrival. -Past history of hypokalemia and hypomagnesemia. -Resulted in cardaic arrest and ventricular tachycardia on previous admission. -Started on K rider in the ER, given 3 bags of 10meq. -Will order 2gm Mg Sulfate. continue home magnesium supplement. -Patient is on spironolactone 25mg qAM for potassium retention, continue on admission. -Discontinue PPI due to magnesium lowering effect. -Trend renal func panel, magnesium. -Patient lives by herself, would recommend bringing up living in assisted living or long term to ensure compliance with medications. Hx of CHF: -Hypovolemic due to diarrhea and vomiting. -Given 500cc bolus in the ER, administering IV potassium and 2gm MgSulfate. -Echo 12/2022 EF 60-65%. T2DM: -SSI, 10U lantus BID. -ACHS checks. Hypothyroidism: -Continue home levothyroxine. Chronic conditions: -Continue statin, ASA, ticagrelor, gabapentin. F/E/N/GI: Clear liquid, advance as tolerated. DVT Prophylaxis: SCDs Code status: would want CPR/Shock/meds if heart stopped, no intubation. Dispo: Med/Tele. (2) Abdominal pain, epigastric: (3) Diarrhea: (4) Hypokalemia: (5) Hypomagnesemia: (6) Diabetes mellitus type 2 in obese: (7) Congestive heart failure: (8) Vitamin D deficiency: (9) Hypothyroidism: History of Present Illness Chief Complaint: N/V Primary Care Provider: Jc Zaman DO Yolanda is a 62 year old female w/ PmHx CAD s/p CHANTAL x2, HFpEF, HTN, HLD, DM2, tobacco use disorder, previous admission 12/2022 w/ cardiac arrest 2/ vent ricular tachycardia due to hypokalemia, multiple admission for N/V/hypokalemia coming in for N/V x2 days. Patient states that for the past 2 days she's had nausea, vomiting, diarrhea. The diarrhea is loose and runny without any blood and has been occurring every 4-5 hours. She's also been vomiting >5 times over the last couple days. She has abdominal pain at the front of her belly that goes to her back. She denies any fevers, chills, chest pain, has a little bit of shortness of breath. She states that she takes her home medications including spironolactone and usually takes sucralfate before every meal. In the ER WBC 12.31, K 2.6, Mg 1.4, U/A negative except for 2+ glucose and trace LE. Respiratory biofrire negative. CT A&P unremarkable for any acute processes. She was started on K rider, given morphine 4mg, Zofran, Tylenol, and NSS x500cc. Allergies Allergy/AdvReac Type Severity Reaction Status Date / Time dulaglutide [From Trulicity] AdvReac Intermediate stomach Verified 01/23/23 23:13 pain albiglutide [From Tanzeum] AdvReac Unknown CAN'T Verified 01/23/23 23:13 REMEMBER Home Medications Medication Instructions Recorded Confirmed Type blood-glucose meter (ProdJoust 10/15/21 02/28/23 History Autocode Meter kit) pen needle, diabetic 32 gauge x #200 ea 06/28/22 02/28/23 Rx 5/32" (BD Ultra-Fine Cary Pen Needle) aspirin 81 mg tablet,delayed 81 mg PO QAM #30 tabs 10/29/22 02/28/23 Rx release docusate sodium 100 mg capsule 100 mg PO BID #60 caps 10/29/22 02/28/23 Rx pantoprazole 40 mg tablet,delayed 40 mg PO QAM 12/19/22 02/28/23 History release multivitamin with folic acid 400 1 tab PO QAM #30 tabs 12/28/22 02/28/23 Rx mcg tablet (Daily-Seferino (with folic acid)) magnesium oxide 400 mg (241.3 mg 400 mg PO BID 90 days #180 tabs 01/22/23 02/28/23 Rx magnesium) tablet acetaminophen 500 mg tablet 1,000 mg PO Q8H PRN Pain 01/23/23 02/28/23 History (Pharbetol) atorvastatin 80 mg tablet 80 mg PO HS 01/23/23 02/28/23 History calcium carbonate 500 mg-vitamin 2 tab PO BID 01/23/23 02/28/23 History D3 15 mcg (600 unit) tablet (Os-Michael 500 + D3) ergocalciferol (vitamin D2) 1,250 50,000 unit PO WK 01/23/23 02/28/23 History mcg (50,000 unit) capsule insulin glargine 100 unit/mL 10 unit SC HS 01/23/23 02/28/23 History subcutaneous solution (Lantus U-100 Insulin) insulin regular hum U-500 conc 500 4 unit subcut DIRECTED 01/23/23 02/28/23 History unit/mL(3 mL) subcut pen (Humulin R U-500 (Conc) Insulin Kwikpen) magnesium hydroxide 400 mg/5 mL 30 ml PO DAILY PRN Constipation 01/23/23 02/28/23 History oral suspension (Milk of Magnesia) spironolactone 25 mg tablet 25 mg PO QAM 01/23/23 02/28/23 History sucralfate 100 mg/mL oral 1 g (10 mL) PO AC #1,000 mL 01/31/23 02/28/23 Rx suspension ascorbic acid (vitamin C) 500 mg 1,000 mg (2 x 500 mg) PO QAM #60 02/14/23 02/28/23 Rx tablet (Vitamin C) tabs folic acid 1 mg tablet 1 mg PO QAM #30 tabs 02/14/23 02/28/23 Rx gabapentin 100 mg capsule 200 mg (2 x 100 mg) PO BID #60 caps 02/14/23 02/28/23 Rx ticagrelor 90 mg tablet (Brilinta) 90 mg PO BID #60 tabs 02/14/23 02/28/23 Rx peg 3350-electrolytes 236 240 ml PO ONCE #4,000 mL 02/20/23 02/28/23 Rx gram-22.74 gram-6.74 gram-5.86 gram solution (Golytely) diclofenac sodium 1 % topical gel 2 g EXT QID PRN Pain 02/28/23 02/28/23 History (Voltaren Arthritis Pain) levothyroxine 88 mcg tablet 88 mcg PO DAILYBB 02/28/23 02/28/23 History Past Med/Surg History Medical History Chest pain Vitamin D deficiency Diabetes mellitus type 2 in obese Acute on chronic combined systolic and diastolic CHF (congestive heart failure) Nausea vomiting and diarrhea Bradycardia with 41-50 beats per minute Hyperglycemia Chest pain Hypokalemia Hypomagnesemia Accelerated hypertension Albuminuria Diabetic nephropathy associated with type 2 diabetes mellitus Depression Osteoarthritis Chronic headaches CAD (coronary artery disease) No remaining occlusive disease after 2 LAD drug eluting stents 10/22/20. Follows with Dr. Harris NSTEMI (non-ST elevated myocardial infarction) 10/22/2020 s/p 2 CHANTAL Vulvitis Diabetes type 2, uncontrolled IDDM Dyslipidemia Tobacco abuse Hypertension Hypothyroidism Obesity Anxiety Surgical History History of cardiac catheterization 10/22/2020 Dominant: Right Left Main (% Stenosis): Normal LAD (% Stenosis): Proximal (99) and Mid (75) Circumflex (% Stenosis): Normal (luminal irregularities) RCA (% Stenosis): Normal (Luminal irregularities) 2 CHANTAL to LAD S/P coronary artery stent placement 2 CHANTAL to LAD 10/22/2020 History of cholecystectomy History of dental surgery History of tonsillectomy Family History Unknown Diabetes Thyroid disorder Father Diabetes Other No family history of adverse response to anesthesia Denies family history of Ovarian cancer Prostate cancer Breast cancer Colorectal cancer Uterine cancer Social History Smoking Status: Current every day smoker Tobacco Type: Cigarettes packs per day: 0.5; Cigarettes Per Day: 10; Second Hand Exposure: No; Do You Dip or Chew Tobacco: No; Tobacco Cessation Education Requested by Patient: Yes Hx Alcohol Use: No Hx Substance Use: No Preferred Language: Libyan Communication Ability: Effective Visual Impairment: No Limitations Electrocardiograph Repairer Required: No Beliefs That Will Affect Care: None marital status: Single Current Living Situation: Alone current occupational status: disabled How many Children do You have: 0 Other Information That Helps Us Care for You: No Feels Safe at Home: Yes Safety Concerns: Feels Safe At This Time Safety Concerns Comment: Gets nervous sometimes because she lives alone, gets shaky from anxiety Diet: regular caffeine: Yes Dental Care, Regularly: No Physical Activity Frequency: Does not Exercise Seatbelt Use: always Sunscreen Use: No Assistive Devices: Walker Review of Systems Review of Systems: As per HPI. Physical Exam Constitutional: WD/WN, vitals as above Eyes: PERRL, conjunctivae normal, anicteric sclerae Respiratory: normal respiratory effort, lungs clear to auscultation Cardiovascular: RRR, no murmur, no edema Gastrointestinal (Abdomen): BS+, minor discomfort with palpation of the area surrounding the umbilicus, no rebound or guarding. Psychiatric: A+Ox3, euthymic affect Results & Data Results & Data Vital Signs (Past 12 Hours) Vital Signs Pulse Resp BP Pulse Ox 02/28/23 19:29 68 16 121/72 96 Supervising Physician Co-Signing Physician Notes Attending addendum: I have physically seen this patient, have supervised the medical residents a ctivities, and agree with the H&P unless as otherwise noted. Assessment and Plan: Acute on chronic abdominal pain/nausea/vomiting/diarrhea- Multiple episodes of admissions over the past [address] scan of abdomen pelvis negative Conservative treatment as before with IV fluids With stop any proton pump inhibitors, she is on pantoprazole, and instead placed on famotidine 20 mg p.o. every 12 hours IV fluids as noted Avoid narcotics Hypokalemia/hypomagnesemia- Chronic issue Potassium 2.6, magnesium 1.4 on admission Potassium and magnesium were low enough recently to cause ventricular tachycardi a Unclear if patient is taking medications as directed Stop pantoprazole, in the event it is contributing to low magnesium and low potassium Replace with IV and oral supplementation as noted Follow serial laboratories Multiple admissions over the past 3 to 4 years with the same process going on May be time for patient to be considered for assisted living and help with her medical care Will ask social science professor to get involved Resident Activity Tracking Resident Involvement: Resident Care Provided Care Provided: Adult Hospital Medicine (9) Hypothyroidism Hypothyroidism type: unspecified Qualified Code(s): E03.9 - Hypothyroidism, unspecified
[2023-03-01 02:14] LABS: Magnesium 1.4 mg/dl (1.7-2.4)
[2023-03-01] MEDS ORDERED: GLUCAGON FOR INJ 1 MG VIAL SQ PRN (04:44)
[2023-03-01] MEDS ORDERED: CARBOHYDRATES FOR HYPOGLYCEMIA PO PRN (04:44)
[2023-03-01] MEDS ORDERED: DEXTROSE 50% 50 ML SYRINGE IV PRN (04:44)
[2023-03-01] MEDS ORDERED: MAGNESIUM HYDROXIDE SUSP 30 ML UDC PO PRN (04:44)
[2023-03-01] MEDS ORDERED: GLUCOSE 40% GEL 15 GM TUBE PO PRN (04:44)
[2023-03-01] MEDS ORDERED: DICLOFENAC SOD 1% GEL 100 GM TUBE EXT PRN (04:44)
[2023-03-01] MEDS ORDERED: GLUCOSE 10 TAB/TUBE PO PRN (04:44)
[2023-03-01] MEDS ORDERED: ACETAMINOPHEN 1,000 MG/100 ML VIAL IV PRN (04:44)
[2023-03-01] MEDS: MAGNESIUM SULFATE / D5W 1 GM/100 ML BAG IV SCH ×2 (05:47→08:11)
[2023-03-01] MEDS: ACETAMINOPHEN 325 MG TAB PO PRN ×3 (05:51→22:04)
[2023-03-01] MEDS: LEVOTHYROXINE SODIUM 88 MCG TABLET PO SCH (05:52)
[2023-03-01 06:50] LABS: Basophils # (auto) 0.03 K/uL (0.00-0.20); Basophils % (auto) 0.3 %; Eosinophils # (auto) 0.32 K/uL (0.00-0.50); Hematocrit (blood only) 32.6 % (37.0-47.0); Hemoglobin 10.8 g/dl (12.0-16.0); Immature Granulocytes # (auto) 0.06 K/uL (0.01-0.20); Immature Granulocytes % (auto) 0.6 %; Lymphocytes # (auto) 2.53 K/uL (1.20-3.40); Lymphocytes % (auto) 23.4 %; Mean Corpuscular Hemoglobin 28.7 pg (25.0-34.0); Mean Corpuscular Hgb Conc 33.1 g/dL (32.0-36.0); Mean Corpuscular Volume 86.7 fL (80.0-100.0); Mean Platelet Volume 10.9 fL (9.4-12.4); Monocytes # (auto) 0.63 K/uL (0.11-0.59); Monocytes % (auto) 5.8 %; Neutrophils # (auto) 7.26 K/uL (1.40-6.50); Neutrophils % (auto) 66.9 %; Platelet Count 295 K/uL (130-400); RDW Coefficient of Variation 13.5 % (11.5-14.5); RDW Standard Deviation 41.9 fL (36.4-46.3); Red Blood Count 3.76 M/uL (4.20-5.40); White Blood Count 10.83 K/ul (4.8-10.8)
[2023-03-01 07:05] LABS: Albumin Level 2.5 gm/dl (3.4-5.0); BUN Creatinine Ratio 5.3 (10-20); Calcium 7.2 mg/dl (8.6-10.3); Creatinine Clr Calc Pharmacy 70.2 ml/min; Est GFR (African American) 96.8 ml/min; Est GFR (Non-African American) 83.5 ml/min; Magnesium 1.2 mg/dl (1.7-2.4); Phosphorus 3.5 mg/dl (2.5-4.9); Potassium 2.7 mmol/L (3.5-5.1)
[2023-03-01] MEDS ORDERED: POTASSIUM CHLORIDE CRTAB 20 MEQ TABCR PO STA ×2 (07:25→13:41)
--- NOTE | 2023-03-01 07:25 | Hospitalist Progress Note ---
"Date of Service March 01, 2023 Assessment & Plan (1) Nausea: Plan: Yolanda is a 62F with PMH of uncontrolled T2DM w/ gastroparesis & nephropathy, CHF, VTach/Torsades 2/2 Electrolyte Anomalies, CAD/NSTEMI/Stent Placement to LAD, GERD, arthralgia, and tobacco use who presented for NVD and was admitted for management of electrolyte anomalies in the setting of gastroparesis. NVD w/ Abdominal Pain | Uncontrolled T2DM | Gastroparesis? - Patient with multiple presentations for NVD w/ abdominal pain - Hx of uncontrolled T2DM, last A1c 10.2, known polypharmacy and poor understanding of medication regimen - On presentation, WBC 12.31, K 2.6, Creatinine 0.79, lipase 3, liver enzymes unremarkable. - Viral panel negative - CT A&P negative for any acute process. - Symptoms most consistent with gastroparesis in the setting of uncontrolled T2DM - Patient w/ Hx of VTach/Torsades 2/2 severe electrolyte anomalies, admit for close monitoring - Continue clear liquid diet, ADAT - Tylenol for pain PRN - T2DM: Continue SSI/10u Lantus BID, adjust basal/bolus regimen after 24 hours following insulin needs Hypokalemia (K 2.6) | Hypomagnesemia (Mg 1.4) - Past history of hypokalemia and hypomagnesemia, outpt potassium supplement recently discontinued - Electrolyte anomalies previously resulting in cardiac arrest/VTach/Torsades - K: S/p K Esa x 3, K 2.7 03/01, continue supplementation, KCl 40 mEq ordered, recheck @ 1230, continue Spironolactone 25 mg for K retention - Mg: S/p Mg sulfate x 2, Mg 1.2 03/01, continue supplementation, recheck @ 1230, hold PPI d/t Mg lowering affect - Patient lives by herself, continue to assess family support and plan for discharge Hx of CHF: - Hypovolemic due to diarrhea and vomiting. - Given 500cc bolus in the ER, IV Mg and K ongoing AM 03/01 - Echo 12/2022 EF 60-65%. - Clinically follow fluid status Hypothyroidism: - Continue home levothyroxine. Chronic conditions: - Continue statin, ASA, ticagrelor, gabapentin F/E/N/GI: Clear liquid, advance as tolerated. DVT Prophylaxis: SCDs Code status: would want CPR/Shock/meds if heart stopped, no intubation. Dispo: Med/Tele. (2) Abdominal pain, epigastric: (3) Diarrhea: (4) Hypokalemia: (5) Hypomagnesemia: (6) Diabetes mellitus type 2 in obese: (7) Congestive heart failure: (8) Vitamin D deficiency: (9) Hypothyroidism: Admission and Anticipated Discharge Date Admission Date: March 01, 2023 Supervising Physician Co-Signing Physician Notes Attending Physician Supervision Note: I independently interviewed and examined the patient and verified the real history and physical, reviewed labs and image studies and agree with findings and care plan noted above. Gastroparesis symptom exacerbation with severe hypokalemia and low mag- Received IV fluid resuscitation, bowel rest, clear liquid, continue coaching for gastroparesis and diabetes control. Subjective 03/01: Patient reports ongoing diarrhea and nausea. She states that prior to presentation she had 2-3 days with 5-6 loose bowel movements and 4-5 episodes of emesis. She endorses epigastric to central abdominal pain, which is ongoing. Patient recalls that she is normally on outpatient K supplementation, but this was recently discontinued. Patient endorses inconsistent glucose control at home as she often fluctuates her basal and bolus insulin. She endorses a prior diagnosis of gastroparesis. Patient denies any fevers or chills. She continues to note that her emesis and stools are non-bloody and non-bilious. She denies dysuria or suprapubic pressure. She denies any known sick contacts. Review of Systems Review of Systems: As per HPI. Physical Exam Physical Exam: Gen: NAD, alert, interactive HEENT: Supple, no LAD, no thyromegaly, no JVD Resp:Non-labored, no wheezing/rhonchi/rales, CTAB CV:RRR, normal S1/S2, no M/R/G Abd: Soft, non-distended, mild TTP around umbilicus/epigastrium, normoactive bowels, no masses Extr: 2+ dp bilaterally, no edema Skin: No rashes lesions or erythema Results & Data Results & Data Vital Signs (Past 12 Hours) Vital Signs Temp Pulse Pulse Resp BP BP Pulse Ox 03/01/23 06:43 59 L 03/01/23 05:26 03/01/23 04:49 36.5 C 63 18 105/70 95 03/01/23 04:44 03/01/23 03:32 68 18 96/62 L 91 03/01/23 02:50 69 20 03/01/23 02:47 70 15 124/67 03/01/23 02:40 68 18 03/01/23 02:30 72 17 03/01/23 02:20 68 16 03/01/23 02:10 71 15 03/01/23 02:00 66 21 03/01/23 01:50 65 18 03/01/23 01:40 63 15 03/01/23 01:30 67 18 03/01/23 01:20 63 18 03/01/23 01:10 64 19 03/01/23 01:00 67 18 03/01/23 00:50 65 19 03/01/23 00:40 63 21 03/01/23 00:30 62 15 03/01/23 00:20 63 16 03/01/23 00:10 66 17 03/01/23 00:00 66 18 02/28/23 23:50 68 23 02/28/23 23:40 70 14 02/28/23 23:30 66 21 02/28/23 23:20 67 19 02/28/23 23:10 67 15 02/28/23 23:02 67 21 02/28/23 20:00 68 18 02/28/23 19:50 67 17 96 02/28/23 19:45 74 27 H 137/58 L 96 02/28/23 19:29 68 16 121/72 96 Pulse Ox O2 Del Method O2 Del Method 03/01/23 06:43 03/01/23 05:26 Room Air 03/01/23 04:49 Room Air 03/01/23 04:44 95 Room Air 03/01/23 03:32 03/01/23 02:50 03/01/23 02:47 03/01/23 02:40 03/01/23 02:30 03/01/23 02:20 03/01/23 02:10 03/01/23 02:00 03/01/23 01:50 03/01/23 01:40 03/01/23 01:30 03/01/23 01:20 03/01/23 01:10 03/01/23 01:00 03/01/23 00:50 03/01/23 00:40 03/01/23 00:30 03/01/23 00:20 03/01/23 00:10 03/01/23 00:00 02/28/23 23:50 02/28/23 23:40 02/28/23 23:30 02/28/23 23:20 02/28/23 23:10 02/28/23 23:02 02/28/23 20:00 02/28/23 19:50 02/28/23 19:45 02/28/23 19:29 Resident Activity Tracking Resident Involvement: Resident Care Provided Care Provided: Adult Hospital Medicine (9) Hypothyroidism Hypothyroidism type: unspecified Qualified Code(s): E03.9 - Hypothyroidism, unspecified"
[2023-03-01] MEDS ORDERED: MAGNESIUM SULFATE / D5W 1 GM/100 ML BAG IV SCH (07:30)
[2023-03-01] MEDS: FOLIC ACID 1 MG TAB PO SCH (08:11)
[2023-03-01] MEDS: GABAPENTIN 100 MG CAP PO SCH ×2 (08:11→20:08)
[2023-03-01] MEDS: FAMOTIDINE 20 MG TAB PO SCH ×2 (08:11→20:07)
[2023-03-01] MEDS: MAGNESIUM OXIDE 400 MG TAB PO SCH ×2 (08:11→20:08)
[2023-03-01] MEDS: TICAGRELOR 90 MG TAB PO SCH ×2 (08:11→20:09)
[2023-03-01] MEDS: SUCRALFATE 1 GM/10 ML UDC PO SCH ×3 (08:12→17:01)
[2023-03-01] MEDS: SPIRONOLACTONE 25 MG TAB PO SCH (08:12)
[2023-03-01] MEDS: ASPIRIN 81 MG ECTAB PO SCH (08:12)
[2023-03-01] MEDS: ONDANSETRON INJ 2 MG/ML 2 ML VIAL IV PRN ×2 (08:22→22:05)
[2023-03-01] MEDS: INSULIN ASPART PER UNIT CHARGE SC SCH ×4 (09:34→22:06)
[2023-03-01] MEDS: LANTUS PER UNIT CHARGE SQ SCH ×2 (09:34→22:03)
[2023-03-01 13:35] LABS: Magnesium 1.9 mg/dl (1.7-2.4)
[2023-03-01] MEDS ORDERED: SIMETHICONE 80 MG CHEW PO ONE (16:00)
[2023-03-01] MEDS: ATORVASTATIN 40 MG TAB PO SCH (20:07)
--- NOTE | 2023-03-01 20:07 | Billing Data ---
Date of Service March 01, 2023 Coding Level of Care Code 51252 INT INP/OBS CARE
[2023-03-02] MEDS: LEVOTHYROXINE SODIUM 88 MCG TABLET PO SCH (05:35)
[2023-03-02 07:07] LABS: Basophils # (auto) 0.02 K/uL (0.00-0.20); Basophils % (auto) 0.2 %; Eosinophils # (auto) 0.43 K/uL (0.00-0.50); Hemoglobin 10.4 g/dl (12.0-16.0); Immature Granulocytes # (auto) 0.04 K/uL (0.01-0.20); Immature Granulocytes % (auto) 0.5 %; Lymphocytes # (auto) 2.77 K/uL (1.20-3.40); Lymphocytes % (auto) 32.1 %; Mean Corpuscular Hemoglobin 28.9 pg (25.0-34.0); Mean Corpuscular Hgb Conc 33.5 g/dL (32.0-36.0); Mean Corpuscular Volume 86.1 fL (80.0-100.0); Mean Platelet Volume 10.8 fL (9.4-12.4); Monocytes # (auto) 0.54 K/uL (0.11-0.59); Monocytes % (auto) 6.3 %; Neutrophils # (auto) 4.82 K/uL (1.40-6.50); Neutrophils % (auto) 55.9 %; Platelet Count 281 K/uL (130-400); RDW Coefficient of Variation 13.8 % (11.5-14.5); RDW Standard Deviation 43.2 fL (36.4-46.3); White Blood Count 8.62 K/ul (4.8-10.8)
--- NOTE | 2023-03-02 07:08 | Hospitalist Progress Note ---
"Date of Service March 02, 2023 Assessment & Plan (1) Nausea: Plan: Yolanda is a 62F with PMH of uncontrolled T2DM w/ gastroparesis & nephropathy, CHF, VTach/Torsades 2/2 Electrolyte Anomalies, CAD/NSTEMI/Stent Placement to LAD, GERD, arthralgia, and tobacco use who presented for NVD and was admitted for management of electrolyte anomalies in the setting of gastroparesis. NVD w/ Abdominal Pain | Uncontrolled T2DM | Gastroparesis - Patient with multiple presentations for NVD w/ abdominal pain - 01/24/23 A1c 10.2 - CT A&P negative for any acute process. - Symptoms most consistent with T2DM gastroparesis Continue clear liquid diet, ADAT Tylenol for pain PRN Continue SSI/10u Lantus BID, adjust basal/bolus regimen PRN --- Continue supportive measures for gastroparesis, avoid narcotics, continue clear liquid diet with goal to advance once nausea/abdominal pain improved Hypokalemia (K 3.4) | Hypomagnesemia (Resolved - Mg 1.8) - Ongoing history of hypokalemia and hypomagnesemia - Patient w/ Hx of VTach/Torsades 2/2 severe electrolyte anomalies - Hypomagnesemia resolved, continue Magnesium Oxide 400 mg PO BID - Hypokalemia persists, but improving, continue PO supplementation PRN --- Continue electrolyte supplementation as needed, patient may benefit from outpatient potassium supplementation Hx of CHF: - Hypovolemic on presentation 2/2 NVD, now s/p 500 cc bolus in ER - 12/2022 Echo w/ EF 60-65% - Euvolemic on exam Hypothyroidism: - Continue home levothyroxine. Chronic conditions: - Continue statin, ASA, ticagrelor, gabapentin Continue to evaluate if additional support for patient (managing medications, etc.) will be needed upon discharge. Spoke with patient's brother Bill 03/02/23. F/E/N/GI: Clear liquid, advance as tolerated. DVT Prophylaxis: SCDs Code status: would want CPR/Shock/meds if heart stopped, no intubation. Dispo: Med/Tele. (2) Abdominal pain, epigastric: (3) Diarrhea: (4) Hypokalemia: (5) Hypomagnesemia: (6) Diabetes mellitus type 2 in obese: (7) Congestive heart failure: (8) Vitamin D deficiency: (9) Hypothyroidism: Admission and Anticipated Discharge Date Admission Date: March 01, 2023 Supervising Physician Co-Signing Physician Notes Attending Physician Supervision Note: I independently interviewed and examined the patient and verified the real history and physical, reviewed labs and image studies and agree with findings and care plan noted above. Also, concern of cognitive deficit/depression/ID - continue to reassess. Subjective 03/02: Patient now reporting that she has been constipated since before she arrived to the hospital and has not moved her bowels since 02/27, requesting stool softener. She endorses ongoing nausea w/o emesis. Patient denies any fevers, chills, chest pain, or dyspnea. She endorses ongoing central abdominal discomfort. She denies dysuria or suprapubic pressure. Review of Systems Review of Systems: As per HPI. Physical Exam Physical Exam: Gen: NAD, alert, interactive HEENT: Supple, no LAD, no thyromegaly, no JVD Resp:Non-labored, no wheezing/rhonchi/rales, CTAB CV:RRR, normal S1/S2, no M/R/G Abd: Soft, non-distended, mild TTP around umbilicus/epigastrium, normoactive bowels, no masses Extr: 2+ dp bilaterally, no edema Skin: No rashes lesions or erythema Results & Data Results & Data Vital Signs (Past 12 Hours) Vital Signs Temp Pulse Pulse Resp BP BP Pulse Ox 03/02/23 04:44 03/02/23 03:05 36.8 C 62 18 100/64 95 03/01/23 23:59 65 03/01/23 23:57 36.4 C L 65 18 122/63 97 03/01/23 23:22 03/01/23 20:20 36.5 C 66 18 114/76 95 Pulse Ox O2 Del Method O2 Del Method 03/02/23 04:44 96 Room Air 03/02/23 03:05 Room Air 03/01/23 23:59 03/01/23 23:57 Room Air 03/01/23 23:22 Room Air 03/01/23 20:20 Room Air Resident Activity Tracking Resident Involvement: Resident Care Provided Care Provided: Adult Hospital Medicine (9) Hypothyroidism Hypothyroidism type: unspecified Qualified Code(s): E03.9 - Hypothyroidism, unspecified"
[2023-03-02 07:13] LABS: Albumin Level 2.5 gm/dl (3.4-5.0); BUN Creatinine Ratio 6.1 (10-20); Calcium 8.1 mg/dl (8.6-10.3); Creatinine Clr Calc Pharmacy 66.9 ml/min; Est GFR (African American) 88.3 ml/min; Est GFR (Non-African American) 76.2 ml/min; Magnesium 1.8 mg/dl (1.7-2.4); Phosphorus 3.4 mg/dl (2.5-4.9); Potassium 3.4 mmol/L (3.5-5.1)
[2023-03-02] MEDS: SPIRONOLACTONE 25 MG TAB PO SCH (07:33)
[2023-03-02] MEDS: FOLIC ACID 1 MG TAB PO SCH (07:33)
[2023-03-02] MEDS: FAMOTIDINE 20 MG TAB PO SCH ×2 (07:33→20:16)
[2023-03-02] MEDS: SUCRALFATE 1 GM/10 ML UDC PO SCH ×3 (07:33→16:08)
[2023-03-02] MEDS: ASPIRIN 81 MG ECTAB PO SCH (07:33)
[2023-03-02] MEDS: MAGNESIUM OXIDE 400 MG TAB PO SCH ×2 (07:34→20:18)
[2023-03-02] MEDS: TICAGRELOR 90 MG TAB PO SCH ×2 (07:34→20:18)
[2023-03-02] MEDS: GABAPENTIN 100 MG CAP PO SCH ×2 (07:34→20:17)
[2023-03-02] MEDS ORDERED: POTASSIUM CHLORIDE CRTAB 20 MEQ TABCR PO STA (07:47)
[2023-03-02] MEDS: INSULIN ASPART PER UNIT CHARGE SC SCH ×4 (09:02→20:20)
[2023-03-02] MEDS: LANTUS PER UNIT CHARGE SQ SCH ×2 (09:18→21:20)
[2023-03-02] MEDS: ACETAMINOPHEN 325 MG TAB PO PRN ×2 (09:39→20:27)
[2023-03-02] MEDS: ONDANSETRON INJ 2 MG/ML 2 ML VIAL IV PRN ×2 (11:19→20:28)
[2023-03-02] MEDS ORDERED: IBUPROFEN 200 MG TAB PO STA (11:35)
[2023-03-02] MEDS: ATORVASTATIN 40 MG TAB PO SCH (20:16)
--- NOTE | 2023-03-02 20:25 | Electrocardiogram Report ---
Test Reason : Blood Pressure : / mmHG Vent. Rate : 057 BPM Atrial Rate : 057 BPM P-R Int : 156 ms QRS Dur : 064 ms QT Int : 520 ms P-R-T Axes : 033 046 009 degrees QTc Int : 507 ms Sinus bradycardia Low voltage QRS Long QTc T wave abnormality, consider anterior ischemia Abnormal ECG When compared with ECG of 23-JAN-2023 20:23, Vent. rate has decreased BY 29 BPM Nonspecific T wave abnormality now evident in Inferior leads T wave inversion now evident in Anterior leads Confirmed by Macho Gates ([id number]) on 03/02/2023 8:24:51 PM Referred By: REFERRED SELF Confirmed By:Macho Gates
[2023-03-03] MEDS: LEVOTHYROXINE SODIUM 88 MCG TABLET PO SCH (05:36)
[2023-03-03 07:13] LABS: Basophils # (auto) 0.03 K/uL (0.00-0.20); Basophils % (auto) 0.3 %; Eosinophils # (auto) 0.37 K/uL (0.00-0.50); Eosinophils % (auto) 4.2 %; Hematocrit (blood only) 32.7 % (37.0-47.0); Hemoglobin 10.7 g/dl (12.0-16.0); Immature Granulocytes # (auto) 0.03 K/uL (0.01-0.20); Immature Granulocytes % (auto) 0.3 %; Lymphocytes # (auto) 2.27 K/uL (1.20-3.40); Lymphocytes % (auto) 25.6 %; Mean Corpuscular Hemoglobin 28.5 pg (25.0-34.0); Mean Corpuscular Hgb Conc 32.7 g/dL (32.0-36.0); Mean Platelet Volume 10.9 fL (9.4-12.4); Monocytes # (auto) 0.52 K/uL (0.11-0.59); Monocytes % (auto) 5.9 %; Neutrophils # (auto) 5.66 K/uL (1.40-6.50); Neutrophils % (auto) 63.7 %; Platelet Count 289 K/uL (130-400); RDW Coefficient of Variation 13.8 % (11.5-14.5); RDW Standard Deviation 43.4 fL (36.4-46.3); Red Blood Count 3.76 M/uL (4.20-5.40); White Blood Count 8.88 K/ul (4.8-10.8)
[2023-03-03 07:34] LABS: Albumin Level 2.5 gm/dl (3.4-5.0); BUN Creatinine Ratio 7.2 (10-20); Calcium 8.2 mg/dl (8.6-10.3); Creatinine Clr Calc Pharmacy 66.3 ml/min; Magnesium 1.7 mg/dl (1.7-2.4); Phosphorus 4.4 mg/dl (2.5-4.9); Potassium 3.6 mmol/L (3.5-5.1)
[2023-03-03] MEDS: POLYETHYLENE (MIRALAX) 17 GM PACK PO PRN (07:43)
--- NOTE | 2023-03-03 07:45 | Hospitalist Progress Note ---
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 NVD w/ Abdominal Pain | Uncontrolled T2DM | Gastroparesis - Patient with multiple presentations for NVD w/ abdominal pain - 01/24/23 A1c 10.2 - CT A&P negative for any acute process. - Symptoms most consistent with T2DM gastroparesis Was tolerating clear liquid diet, will advance to regular diet on 03/03. Tylenol for pain PRN Continue SSI/10u Lantus BID, adjust basal/bolus regimen PRN - Will order gastric emptying study which will be done on 03/05. - Zofran unable to control nausea, will try Compazine 5 mg every 6 hours as needed as well as Voltaren gel to the anterior abdominal wall twice daily. Hypokalemia (Resolved) | Hypomagnesemia (Resolved) - Ongoing history of hypokalemia and hypomagnesemia - Patient w/ Hx of VTach/Torsades 2/2 severe electrolyte anomalies - Hypomagnesemia resolved, continue Magnesium Oxide 400 mg PO BID - Hypokalemia persists, but improving, continue PO supplementation PRN Hx of CHF: - Hypovolemic on presentation 2/2 NVD, now s/p 500 cc bolus in ER - 12/2022 Echo w/ EF 60-65% - Euvolemic on exam Hypothyroidism: - Continue home levothyroxine. Chronic conditions: - Continue statin, ASA, ticagrelor, gabapentin F/E/N/GI: DM 2 diet DVT Prophylaxis: SCDs Code status: would want CPR/Shock/meds if heart stopped, no intubation. Dispo: Med/Tele. (2) Abdominal pain, epigastric: (3) Diarrhea: (4) Hypokalemia: (5) Hypomagnesemia: (6) Diabetes mellitus type 2 in obese: (7) Congestive heart failure: (8) Vitamin D deficiency: (9) Hypothyroidism: Admission and Anticipated Discharge Date Admission Date: March 01, 2023 Supervising Physician Co-Signing Physician Notes I personally examined the patient and verified all real points of history and exam, discussed case, and agree with decision making with Dr Montgomery feeling nauseated. no vomiting though just full easily. did have n/v last admission, but notes she felt good for a few weeks in between - relates eating normally/eating well Morrow/new years vitals noted nad fatigued breathing unlabored no accessory muscles good effort skin no rashes no pallor or icterus neuro no focal deficits. abd soft mod distention (+) upper abdominal trigger points no guarding no rebound does have epigastric tenderness but seems worse at trigger point than elsewhere epigastrum. BM every 1-3 days normally, none for days here n/v - likely multifactorial. antiemetics, advance diet, bowel regimen, voltaren gel to trigger points (low threshold to inject) add lovenox for DVT proph otherwise as above Subjective Patient was seen bedside this morning. States that she is nauseous this morning. But denies any vomiting. Still has diffuse abdominal pain throughout. She also complains of constipation and states that she has not had a bowel movement since admitted to the hospital. Review of Systems Review of Systems: All systems reviewed & are unremarkable except as noted in Subjective Physical Exam Physical Exam: Gen: NAD, alert, interactive HEENT: Supple, no LAD, no thyromegaly, no JVD Resp:Non-labored, no wheezing/rhonchi/rales, CTAB CV:RRR, normal S1/S2, no M/R/G Abd: Soft, non-distended, diffuse mild abdominal tenderness throughout, normoactive bowels, no masses Extr: 2+ dp bilaterally, no edema Skin: No rashes lesions or erythema Results & Data Results & Data Vital Signs (Past 12 Hours) Vital Signs Temp Pulse Pulse Resp BP Pulse Ox O2 Del Method 03/03/23 07:30 62 03/02/23 23:45 72 03/02/23 22:22 Room Air 03/02/23 22:00 36.7 C 61 18 113/79 95 Room Air 03/02/23 19:57 36.6 C 69 20 126/79 95 Room Air Resident Activity Tracking Resident Involvement: Resident Care Provided Care Provided: Adult Hospital Medicine (9) Hypothyroidism Hypothyroidism type: unspecified Qualified Code(s): E03.9 - Hypothyroidism, unspecified"
[2023-03-03] MEDS: FOLIC ACID 1 MG TAB PO SCH (07:46)
[2023-03-03] MEDS: ONDANSETRON INJ 2 MG/ML 2 ML VIAL IV PRN (07:46)
[2023-03-03] MEDS: TICAGRELOR 90 MG TAB PO SCH ×2 (07:46→19:57)
[2023-03-03] MEDS: SPIRONOLACTONE 25 MG TAB PO SCH (07:46)
[2023-03-03] MEDS: SUCRALFATE 1 GM/10 ML UDC PO SCH ×3 (07:47→16:23)
[2023-03-03] MEDS: MAGNESIUM OXIDE 400 MG TAB PO SCH ×2 (07:47→19:56)
[2023-03-03] MEDS: GABAPENTIN 100 MG CAP PO SCH ×2 (07:47→19:56)
[2023-03-03] MEDS: FAMOTIDINE 20 MG TAB PO SCH ×2 (07:47→19:55)
[2023-03-03] MEDS: ASPIRIN 81 MG ECTAB PO SCH (07:47)
[2023-03-03] MEDS: INSULIN ASPART PER UNIT CHARGE SC SCH ×4 (08:59→20:48)
[2023-03-03] MEDS: LANTUS PER UNIT CHARGE SQ SCH ×2 (08:59→20:50)
[2023-03-03] MEDS: ACETAMINOPHEN 325 MG TAB PO PRN ×2 (09:36→20:02)
[2023-03-03] MEDS ORDERED: IBUPROFEN 200 MG TAB PO STA (11:09)
[2023-03-03] MEDS ORDERED: PROCHLORPERAZINE 5 MG/ML 2 ML VIAL IV STA (11:38)
[2023-03-03] MEDS ORDERED: PROCHLORPERAZINE 10 MG in SYRINGE 8 ML IV ONE (12:00)
--- NOTE | 2023-03-03 13:08 | Billing Data ---
Date of Service March 03, 2023 Coding Level of Care Code 63253 SUB INP/OBS CARE MIN
[2023-03-03] MEDS ORDERED: PROCHLORPERAZINE 5 MG in SYRINGE 4 ML IV PRN (18:00)
[2023-03-03] MEDS: DICLOFENAC SOD 1% GEL 100 GM TUBE EXT SCH (19:55)
[2023-03-03] MEDS: ATORVASTATIN 40 MG TAB PO SCH (19:56)
[2023-03-03] MEDS ORDERED: DICLOFENAC SOD 1% GEL 100 GM TUBE EXT SCH (21:00)
[2023-03-04] MEDS: LEVOTHYROXINE SODIUM 88 MCG TABLET PO SCH (06:08)
--- NOTE | 2023-03-04 06:53 | Hospitalist Progress Note ---
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 NVD w/ Abdominal Pain | Uncontrolled T2DM | Gastroparesis - Patient with multiple presentations for NVD w/ abdominal pain - 01/24/23 A1c 10.2 - CT A&P negative for any acute process. - Symptoms most consistent with T2DM gastroparesis Was tolerating clear liquid diet, will advance to regular diet on 03/03. Tylenol for pain PRN Continue SSI/10u Lantus BID, adjust basal/bolus regimen PRN - Gastric emptying study will be done on 03/05. - Zofran unable to control nausea, will try Compazine 5 mg every 6 hours as needed as well as Voltaren gel to the anterior abdominal wall twice daily. - Patient still with constipation, will increase MiraLAX to 3 times daily. Hypokalemia (Resolved) | Hypomagnesemia (Resolved) - Ongoing history of hypokalemia and hypomagnesemia - Patient w/ Hx of VTach/Torsades 2/2 severe electrolyte anomalies - Hypomagnesemia resolved, continue Magnesium Oxide 400 mg PO BID and give IV mag supplement prn - Hypokalemia persists, but improving, continue PO supplementation PRN Hx of CHF: - Hypovolemic on presentation 2/2 NVD, now s/p 500 cc bolus in ER - 12/2022 Echo w/ EF 60-65% - Euvolemic on exam Hypothyroidism: - Continue home levothyroxine. Chronic conditions: - Continue statin, ASA, ticagrelor, gabapentin F/E/N/GI: DM 2 diet DVT Prophylaxis: SCDs Code status: would want CPR/Shock/meds if heart stopped, no intubation. Dispo: Med/Tele. (2) Abdominal pain, epigastric: (3) Diarrhea: (4) Hypokalemia: (5) Hypomagnesemia: (6) Diabetes mellitus type 2 in obese: (7) Congestive heart failure: (8) Vitamin D deficiency: (9) Hypothyroidism: Admission and Anticipated Discharge Date Admission Date: March 01, 2023 Supervising Physician Co-Signing Physician Notes I personally examined the patient and verified all real points of history and exam, discussed case, and agree with decision making with Dr Montgomery still somewhat nauseated but overall a bit better. ate eggs, didn't like/couldn't really eat the pancake but did eat half. ate a few crackers. no vomiting. abdominal pain now mostly lower. stil lno BM vitals noted nad fatigued breathing unlabored no accessory muscles good effort skin no rashes no pallor or icterus neuro no focal deficits. abd soft mild distention mid/lower abdominal tenderness no guarding no rebound still mild epigastric region tenderness but less than before n/v - likely multifactorial. antiemetics, encourage diet, escalate bowel regimen, continue voltaren gel to trigger points (low threshold to inject but overall situation improving). gastric emptying study tomorrow lovenox for DVT proph otherwise as above Subjective Patient was seen bedside this morning. Patient states that she is still having some degree of nausea this morning, though states that after receiving Compazine yesterday it improved. Still has diffuse abdominal pain throughout. Also continues to complain of constipation and has not had a bowel movement this admission. Review of Systems Review of Systems: All systems reviewed & are unremarkable except as noted in Subjective Physical Exam Physical Exam: Gen: NAD, alert, interactive HEENT: Supple, no LAD, no thyromegaly, no JVD Resp:Non-labored, no wheezing/rhonchi/rales, CTAB CV:RRR, normal S1/S2, no M/R/G Abd: Soft, non-distended, diffuse mild abdominal tenderness throughout, normoactive bowels, no masses Extr: 2+ dp bilaterally, no edema Skin: No rashes lesions or erythema Results & Data Results & Data Vital Signs (Past 12 Hours) Vital Signs Temp Pulse Pulse Resp BP Pulse Ox O2 Del Method 03/04/23 03:00 36.5 C 62 18 119/74 98 Room Air 03/03/23 23:00 67 03/03/23 22:00 36.7 C 65 18 115/67 95 Room Air 03/03/23 19:00 36.5 C 68 18 127/80 94 Room Air Resident Activity Tracking Resident Involvement: Resident Care Provided Care Provided: Adult Hospital Medicine (9) Hypothyroidism Hypothyroidism type: unspecified Qualified Code(s): E03.9 - Hypothyroidism, unspecified"
[2023-03-04] MEDS: SUCRALFATE 1 GM/10 ML UDC PO SCH ×3 (07:11→16:10)
[2023-03-04] MEDS: POLYETHYLENE (MIRALAX) 17 GM PACK PO PRN (07:21)
[2023-03-04 07:32] LABS: Basophils # (auto) 0.03 K/uL (0.00-0.20); Basophils % (auto) 0.3 %; Eosinophils # (auto) 0.32 K/uL (0.00-0.50); Eosinophils % (auto) 3.3 %; Hematocrit (blood only) 32.9 % (37.0-47.0); Hemoglobin 10.6 g/dl (12.0-16.0); Immature Granulocytes # (auto) 0.05 K/uL (0.01-0.20); Immature Granulocytes % (auto) 0.5 %; Lymphocytes # (auto) 2.08 K/uL (1.20-3.40); Lymphocytes % (auto) 21.4 %; Mean Corpuscular Hemoglobin 28.6 pg (25.0-34.0); Mean Corpuscular Hgb Conc 32.2 g/dL (32.0-36.0); Mean Corpuscular Volume 88.9 fL (80.0-100.0); Mean Platelet Volume 10.8 fL (9.4-12.4); Monocytes # (auto) 0.54 K/uL (0.11-0.59); Monocytes % (auto) 5.6 %; Neutrophils # (auto) 6.69 K/uL (1.40-6.50); Neutrophils % (auto) 68.9 %; Platelet Count 252 K/uL (130-400); RDW Coefficient of Variation 13.9 % (11.5-14.5); RDW Standard Deviation 44.3 fL (36.4-46.3); White Blood Count 9.71 K/ul (4.8-10.8)
[2023-03-04 07:46] LABS: Albumin Globulin Ratio 0.8 (0.9-2); Albumin Level 2.5 gm/dl (3.4-5.0); BUN Creatinine Ratio 9.5 (10-20); Bilirubin,Total 0.3 mg/dl (0.2-1.0); Calcium 8.2 mg/dl (8.6-10.3); Creatinine Clr Calc Pharmacy 57.3 ml/min; Est GFR (African American) 73.9 ml/min; Est GFR (Non-African American) 63.7 ml/min; Globulin 3.2 gm/dl (2.5-4.0); Magnesium 1.6 mg/dl (1.7-2.4); Phosphorus 4.3 mg/dl (2.5-4.9); Potassium 4.1 mmol/L (3.5-5.1); Total Protein 5.7 gm/dl (6.0-8.3)
[2023-03-04] MEDS ORDERED: PROCHLORPERAZINE MALEATE 10 MG TAB PO STA (08:19)
[2023-03-04] MEDS: FOLIC ACID 1 MG TAB PO SCH (08:37)
[2023-03-04] MEDS: MAGNESIUM OXIDE 400 MG TAB PO SCH ×2 (08:37→20:28)
[2023-03-04] MEDS: GABAPENTIN 100 MG CAP PO SCH ×2 (08:37→20:27)
[2023-03-04] MEDS: TICAGRELOR 90 MG TAB PO SCH ×2 (08:37→20:28)
[2023-03-04] MEDS: FAMOTIDINE 20 MG TAB PO SCH ×2 (08:37→20:27)
[2023-03-04] MEDS: ASPIRIN 81 MG ECTAB PO SCH (08:37)
[2023-03-04] MEDS: SPIRONOLACTONE 25 MG TAB PO SCH (08:37)
[2023-03-04] MEDS: ENOXAPARIN INJ 40 MG/0.4 ML SYR SQ SCH (08:38)
[2023-03-04] MEDS: DICLOFENAC SOD 1% GEL 100 GM TUBE EXT SCH ×2 (08:38→20:28)
[2023-03-04] MEDS: MAGNESIUM SULFATE / D5W 1 GM/100 ML BAG IV SCH ×2 (08:41→11:24)
[2023-03-04] MEDS: LANTUS PER UNIT CHARGE SQ SCH ×2 (08:59→20:43)
[2023-03-04] MEDS: INSULIN ASPART PER UNIT CHARGE SC SCH ×4 (08:59→20:43)
[2023-03-04] MEDS: ACETAMINOPHEN 325 MG TAB PO PRN ×2 (09:58→20:42)
--- NOTE | 2023-03-04 12:39 | Billing Data ---
Date of Service March 04, 2023 Coding Level of Care Code 30008 SUB INP/OBS CARE MIN
[2023-03-04] MEDS: POLYETHYLENE (MIRALAX) 17 GM PACK PO SCH ×2 (13:16→20:28)
[2023-03-04] MEDS: ONDANSETRON INJ 2 MG/ML 2 ML VIAL IV PRN (18:56)
[2023-03-04] MEDS: ATORVASTATIN 40 MG TAB PO SCH (20:27)
[2023-03-05] MEDS: INSULIN ASPART PER UNIT CHARGE SC SCH ×5 (05:56→20:56)
[2023-03-05] MEDS: LEVOTHYROXINE SODIUM 88 MCG TABLET PO SCH (05:57)
--- NOTE | 2023-03-05 06:52 | Hospitalist Progress Note ---
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 NVD w/ Abdominal Pain | Uncontrolled T2DM | Gastroparesis - Patient with multiple presentations for NVD w/ abdominal pain - 01/24/23 A1c 10.2 - CT A&P negative for any acute process. - Symptoms most consistent with T2DM gastroparesis Was tolerating clear liquid diet, will advance to regular diet on 03/03. Tylenol for pain PRN Continue SSI/10u Lantus BID, adjust basal/bolus regimen PRN - Gastric emptying study on 03/05, pending results. - Zofran unable to control nausea, will try Compazine 5 mg every 6 hours as needed as well as Voltaren gel to the anterior abdominal wall twice daily. - Patient still with constipation, will increase MiraLAX to 3 times daily. Hypokalemia (Resolved) | Hypomagnesemia (Resolved) - Ongoing history of hypokalemia and hypomagnesemia - Patient w/ Hx of VTach/Torsades 2/2 severe electrolyte anomalies - Hypomagnesemia resolved, continue Magnesium Oxide 400 mg PO BID and give IV mag supplement prn - Hypokalemia persists, but improving, continue PO supplementation PRN Hx of CHF: - Hypovolemic on presentation 2/2 NVD, now s/p 500 cc bolus in ER - 12/2022 Echo w/ EF 60-65% - Euvolemic on exam Hypothyroidism: - Continue home levothyroxine. Chronic conditions: - Continue statin, ASA, ticagrelor, gabapentin F/E/N/GI: DM 2 diet DVT Prophylaxis: SCDs Code status: would want CPR/Shock/meds if heart stopped, no intubation. Dispo: Med/Tele. (2) Abdominal pain, epigastric: (3) Diarrhea: (4) Hypokalemia: (5) Hypomagnesemia: (6) Diabetes mellitus type 2 in obese: (7) Congestive heart failure: (8) Vitamin D deficiency: (9) Hypothyroidism: Admission and Anticipated Discharge Date Admission Date: March 01, 2023 Supervising Physician Co-Signing Physician Notes I personally examined the patient and verified all real points of history and exam, discussed case, and agree with decision making with Dr Montgomery still nauseated, but also still no BM. vitals noted nad fatigued breathing unlabored no accessory muscles good effort skin no rashes no pallor or icterus neuro no focal deficits. n/v - likely multifactorial. fortunately gastric emptying study normal. suspect constipation > trigger points with elements of both. 85g miralax x1 now, discussed staying on proactive bowel regimen (somewhere around 51g daily based on what she's taken thus far wtihout meaningful BM), conitnue voltaren gel for trigger points (given that clinically they seem to be a more minor player, holding off on injection for now) lovenox for DVT proph otherwise as above Subjective Patient was seen bedside this AM. Still having nausea, bloating, and ab pain. Still has not had a BM since admission. Review of Systems Review of Systems: All systems reviewed & are unremarkable except as noted in Subjective Physical Exam Physical Exam: Gen: NAD, alert, interactive HEENT: Supple, no LAD, no thyromegaly, no JVD Resp:Non-labored, no wheezing/rhonchi/rales, CTAB CV:RRR, normal S1/S2, no M/R/G Abd: Soft, non-distended, diffuse mild abdominal tenderness throughout, normoactive bowels, no masses Extr: 2+ dp bilaterally, no edema Skin: No rashes lesions or erythema Results & Data Results & Data Vital Signs (Past 12 Hours) Vital Signs Temp Pulse Resp BP BP Pulse Ox O2 Del Method 03/05/23 04:00 03/05/23 03:00 36.6 C 61 18 114/66 98 Room Air 03/04/23 22:15 36.6 C 67 18 132/85 94 Room Air 03/04/23 19:48 36.6 C 78 16 115/68 94 Room Air O2 Del Method 03/05/23 04:00 Room Air 03/05/23 03:00 03/04/23 22:15 03/04/23 19:48 Resident Activity Tracking Resident Involvement: Resident Care Provided Care Provided: Adult Hospital Medicine (9) Hypothyroidism Hypothyroidism type: unspecified Qualified Code(s): E03.9 - Hypothyroidism, unspecified"
[2023-03-05 07:26] LABS: Basophils # (auto) 0.03 K/uL (0.00-0.20); Basophils % (auto) 0.3 %; Eosinophils # (auto) 0.37 K/uL (0.00-0.50); Eosinophils % (auto) 3.9 %; Hematocrit (blood only) 33.4 % (37.0-47.0); Hemoglobin 10.5 g/dl (12.0-16.0); Immature Granulocytes # (auto) 0.05 K/uL (0.01-0.20); Immature Granulocytes % (auto) 0.5 %; Lymphocytes # (auto) 2.04 K/uL (1.20-3.40); Lymphocytes % (auto) 21.3 %; Mean Corpuscular Hemoglobin 28.2 pg (25.0-34.0); Mean Corpuscular Hgb Conc 31.4 g/dL (32.0-36.0); Mean Corpuscular Volume 89.8 fL (80.0-100.0); Mean Platelet Volume 11.1 fL (9.4-12.4); Monocytes # (auto) 0.47 K/uL (0.11-0.59); Monocytes % (auto) 4.9 %; Neutrophils # (auto) 6.63 K/uL (1.40-6.50); Neutrophils % (auto) 69.1 %; Platelet Count 248 K/uL (130-400); RDW Coefficient of Variation 13.8 % (11.5-14.5); RDW Standard Deviation 45.1 fL (36.4-46.3); Red Blood Count 3.72 M/uL (4.20-5.40); White Blood Count 9.59 K/ul (4.8-10.8)
[2023-03-05 07:45] LABS: BUN Creatinine Ratio 10.4 (10-20); Calcium 8.1 mg/dl (8.6-10.3); Creatinine Clr Calc Pharmacy 52.1 ml/min; Est GFR (African American) 64.7 ml/min; Est GFR (Non-African American) 55.8 ml/min; Magnesium 1.7 mg/dl (1.7-2.4)
[2023-03-05] MEDS ORDERED: ACETAMINOPHEN 1,000 MG/100 ML VIAL IV ONE (10:59)
[2023-03-05] MEDS: LANTUS PER UNIT CHARGE SQ SCH ×2 (11:14→20:54)
[2023-03-05] MEDS: ONDANSETRON INJ 2 MG/ML 2 ML VIAL IV PRN (12:19)
--- NOTE | 2023-03-05 12:21 | Nuclear Medicine Report ---
NM gastric emptying study CLINICAL HISTORY: 62 years-old Female with Chronic nausea and uncontrolled diabetes. TECHNIQUE: After the oral ingestion of the meal consisting of egg substitute labeled with 1.0 mCi te chnetium-99m sulfur colloid, toast, jam and water, sequential anterior and posterior images were obta ined through 4 hours. Rersidual gastric activity was measured at several time points. COMPARISON: 05/24/2021 FINDINGS: There is normal emptying of the gastric contents into the intestine. The gastric retention of activity was calculated as follows: 1 HOUR: 89% (normal range = 30-90%). 2 HOURS: 66% (normal range = 0-60%). 4 HOURS: 4% (normal range = 0-10%). IMPRESSION: Normal gastric emptying study. ACT 112: Negative or not required by law. The above report was generated using voice recognition software. It may contain grammatical, syntax o r spelling errors. Electronically signed by: Willard Cooper M.D. 03/05/2023 12:20 PM
[2023-03-05] MEDS: ASPIRIN 81 MG ECTAB PO SCH (12:56)
[2023-03-05] MEDS: SUCRALFATE 1 GM/10 ML UDC PO SCH ×3 (12:56→16:57)
[2023-03-05] MEDS: GABAPENTIN 100 MG CAP PO SCH ×2 (12:56→20:41)
[2023-03-05] MEDS: FOLIC ACID 1 MG TAB PO SCH (12:57)
[2023-03-05] MEDS: SPIRONOLACTONE 25 MG TAB PO SCH (12:57)
[2023-03-05] MEDS: TICAGRELOR 90 MG TAB PO SCH ×2 (12:57→20:41)
[2023-03-05] MEDS: MAGNESIUM OXIDE 400 MG TAB PO SCH ×2 (12:57→20:41)
[2023-03-05] MEDS: FAMOTIDINE 20 MG TAB PO SCH ×2 (12:57→20:41)
[2023-03-05] MEDS: ENOXAPARIN INJ 40 MG/0.4 ML SYR SQ SCH (12:57)
[2023-03-05] MEDS: POLYETHYLENE (MIRALAX) 17 GM PACK PO SCH ×2 (12:58→13:57)
[2023-03-05] MEDS: DICLOFENAC SOD 1% GEL 100 GM TUBE EXT SCH ×2 (13:02→20:41)
[2023-03-05] MEDS ORDERED: POLYETHYLENE (MIRALAX) 17 GM PACK PO ONE (15:45)
--- NOTE | 2023-03-05 16:49 | Billing Data ---
Date of Service March 05, 2023 Coding Level of Care Code 66632 SUB INP/OBS CARE
[2023-03-05] MEDS: ATORVASTATIN 40 MG TAB PO SCH (20:41)
[2023-03-05] MEDS: ACETAMINOPHEN 325 MG TAB PO PRN (22:08)
[2023-03-06] MEDS: LEVOTHYROXINE SODIUM 88 MCG TABLET PO SCH (06:43)
--- NOTE | 2023-03-06 07:13 | Discharge Summary ---
Date of Service March 06, 2023 Admission HPI Per Admitting Provider Yolanda is a 62 year old female w/ PmHx CAD s/p CHANTAL x2, HFpEF, HTN, HLD, DM2, tobacco use disorder, previous admission 12/2022 w/ cardiac arrest 2/2 ventricular tachycardia due to hypokalemia, multiple admission for N/V /hypokalemia coming in for N/V x2 days. Patient states that for the past 2 days she's had nausea, vomiting, diarrhea. The diarrhea is loose and runny without any blood and has been occurring every 4-5 hours. She's also been vomiting >5 times over the last couple days. She has abdominal pain at the front of her belly that goes to her back. She denies any fevers, chills, chest pain, has a little bit of shortness of breath. She states that she takes her home medications including spironolactone and usually takes sucralfate before every meal. In the ER WBC 12.31, K 2.6, Mg 1.4, U/A negative except for 2+ glucose and trace LE. Respiratory biofrire negative. CT A&P unremarkable for any acute processes. She was started on K rider, given morphine 4mg, Zofran, Tylenol, and NSS x500cc. 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 NVD w/ Abdominal Pain | Uncontrolled T2DM | Gastroparesis - Patient with multiple presentations for NVD w/ abdominal pain - 01/24/23 A1c 10.2 - CT A&P negative for any acute process. - Symptoms most consistent with T2DM gastroparesis Was tolerating clear liquid diet, will advance to regular diet on 03/03. Tylenol for pain PRN Continue SSI/10u Lantus BID, adjust basal/bolus regimen PRN - Gastric emptying study on 03/05, pending results. - Zofran unable to control nausea, will try Compazine 5 mg every 6 hours as needed as well as Voltaren gel to the anterior abdominal wall twice daily. - Patient still with constipation, will increase MiraLAX to 3 times daily. Hypokalemia (Resolved) | Hypomagnesemia (Resolved) - Ongoing history of hypokalemia and hypomagnesemia - Patient w/ Hx of VTach/Torsades 2/2 severe electrolyte anomalies - Hypomagnesemia resolved, continue Magnesium Oxide 400 mg PO BID and give IV mag supplement prn - Hypokalemia persists, but improving, continue PO supplementation PRN Hx of CHF: - Hypovolemic on presentation /2 NVD, now s/p 500 cc bolus in ER - 12/2022 Echo w/ EF 60-65% - Euvolemic on exam Hypothyroidism: - Continue home levothyroxine. Chronic conditions: - Continue statin, ASA, ticagrelor, gabapentin F/E/N/GI: DM 2 diet DVT Prophylaxis: SCDs Code status: would want CPR/Shock/meds if heart stopped, no intubation. Dispo: Med/Tele. (2) Abdominal pain, epigastric: (3) Diarrhea: (4) Hypokalemia: (5) Hypomagnesemia: (6) Diabetes mellitus type 2 in obese: (7) Congestive heart failure: (8) Vitamin D deficiency: (9) Hypothyroidism: Discharge Plan Discharge Items Patient Disposition: Home - Self-Care Reason For Visit: NAUSEA VOMITING Discharge Diagnosis: Constipation Activity: Resume your previous activity Non-emergency contact: Primary Care Provider Call non-emergency contact if: you have any medication questions, your pain is unusual for you and your temperature is above 101.5 Follow-up/Referrals: Jc Zaman DO [Primary Care Provider] - Diet: Carb Consistent or DM2 Addtl Attending Provider Instructions: You were admitted to the hospital for [_]. You were treated with [_]. A discharge summary will be sent to your primary care physician to ensure contin uity of care. Please bring this discharge summary with you to your next office appointment so that your provider can review it at that time. Follow-up appointments: * [Make a follow-up appointment with your PCP within the next week. It is very important that you follow up with them shortly after discharge from the hospital.] * [We have requested a follow-up appointment with your primary care physician within one week of discharge. Please call their office if you do not hear from them.] * [You have an appointment with _ on _ at _. If you are unable to make this appointment, or have any other questions, their office can be reached at _.] * Keep all your follow-up appointments as already scheduled. If you cannot make an appointment, notify your provider. Medications: Your medication list has been reviewed and reconciled upon discharge to ensure accuracy and continuity of care. An updated list of all your medications is included with your hospital discharge paperwork. Please review this list closely, and make note of any changes. * We sent a new medication called [med name] to your pharmacy. Take [med name] ([dose]mg) [number of tablets] [frequency] [for _ days]. * We sent a new medication called [med name] to your pharmacy. Take [med name] ([dose]mg) [number of tablets] [frequency] [for _ days]. * We sent a new medication called [med name] to your pharmacy. Take [med name] ([dose]mg) [number of tablets] [frequency] [for _ days]. * If you have any issues filling these prescriptions, please call [phone] and ask to leave a message for Dr. Montgomery. * Take your medications as instructed; do not skip a dose of your medicines. Make sure all of your doctors know every medicine you are taking (including [id number]-qxj-olowjpq medicines, vitamins, and supplements). Call your primary care provider before taking any new medicines (including over- the-counter medicines, vitamins, and supplements), because some of these may interact with your current medications, or may make your symptoms worse. Tell your primary care provider if you cannot afford your medications. CONTACT YOUR PRIMARY CARE PROVIDER if you experience any of the following: * Worsening of symptoms * Fever, chills, or fatigue * Difficulty following your treatment plan, or difficulty taking medications CALL [phone] OR GO TO THE EMERGENCY DEPARTMENT if you experience any of the following: * Sudden, severe abdominal pain or nausea/vomiting * Severe chest pain, or chest pain that radiates (moves) to your jaw or arm * Sudden, severe shortness of breath or difficulty breathing Thank you for allowing us to participate in your care. Pending Studies at Discharge: No Stand-Alone Forms: My [facility] [employer], Smoking Cessation Medications and DC Order Prescriptions: Continued (DME) pen needle, diabetic [BD Ultra-Fine Cary Pen Needle] 32 gauge x 5/32" needle See Dose Instructions .ROUTE .MEDSUPPLY Qty: 200 11RF Dose Instruction: As directed Rx Instructions: use 2 times daily or as directed by physician to monitor blood sugar magnesium oxide 400 mg (241.3 mg magnesium) tablet 400 mg PO BID 90 Days Qty: 180 3RF ascorbic acid (vitamin C) [Vitamin C] 500 mg tablet 1,000 mg PO QAM Qty: 60 0RF folic acid 1 mg tablet 1 mg PO QAM Qty: 30 0RF gabapentin 100 mg capsule 200 mg PO BID Qty: 60 0RF Brilinta 90 mg tablet 90 mg PO BID Qty: 60 0RF peg 3350-electrolytes [Golytely] 236-22.74-6.74 -5.86 gram recon soln 240 ml PO ONCE Qty: 4000 0RF Rx Instructions: TAKE DIRECTED PER SPLIT DOSE INSTRUCTIONS (DME) blood-glucose meter [ProdigBeneStream Autocode Meter] Kit See Rx Instructions .Route Rx Instructions: As directed aspirin 81 mg Tablet,Delayed Release (Dr/Ec) 81 mg PO QAM Qty: 30 0RF Rx Instructions: Over the counter docusate sodium 100 mg Capsule 100 mg PO BID Qty: 60 0RF Rx Instructions: Over the counter pantoprazole 40 mg tablet,delayed release (DR/EC) 40 mg PO QAM Rx Instructions: TAKE ONE TABLET BY MOUTH ONCE DAILY multivitamin with folic acid [Daily-Seferino (with folic acid)] 400 mcg Tablet 1 tab PO QAM Qty: 30 0RF acetaminophen [Pharbetol] 500 mg Tablet 1,000 mg PO Q8H PRN (Reason: Pain) magnesium hydroxide [Milk of Magnesia] 400 mg/5 mL Suspension 30 ml PO DAILY PRN (Reason: Constipation) Humulin R U-500 (Conc) Kwikpen 500 unit/mL (3 mL) insulin pen 4 unit SUBCUT DIRECTED Rx Instructions: 4 UNITS BSG >200. atorvastatin 80 mg tablet 80 mg PO HS insulin glargine [Lantus U-100 Insulin] 100 unit/mL solution 10 unit SC HS spironolactone 25 mg tablet 25 mg PO QAM ergocalciferol (vitamin D2) 1,250 mcg (50,000 unit) capsule 50,000 unit PO WK Rx Instructions: MONDAYS calcium carbonate-vitamin D3 [Os-Michael 500 + D3] 500 mg-15 mcg (600 unit) tablet 2 tab PO BID Rx Instructions: need new script sucralfate 100 mg/mL Suspension 1 g PO AC Qty: 1000 0RF diclofenac sodium [Voltaren Arthritis Pain] 1 % gel 2 g EXT QID PRN (Reason: Pain) levothyroxine 88 mcg tablet 88 mcg PO DAILYBB Admission Data Admit Date/Time: 03/01/23 02:29 Attending Provider: Harry Hinojosa Admit Provider: Jac Valadez Primary Care Provider: Jc Zaman Other Providers: [facility] Mack,Home Health; Laurent Gaytan
[2023-03-06 07:52] LABS: Basophils # (auto) 0.02 K/uL (0.00-0.20); Basophils % (auto) 0.2 %; Eosinophils # (auto) 0.37 K/uL (0.00-0.50); Eosinophils % (auto) 4.4 %; Hematocrit (blood only) 33.7 % (37.0-47.0); Immature Granulocytes # (auto) 0.04 K/uL (0.01-0.20); Immature Granulocytes % (auto) 0.5 %; Lymphocytes # (auto) 1.89 K/uL (1.20-3.40); Lymphocytes % (auto) 22.5 %; Mean Corpuscular Hemoglobin 28.9 pg (25.0-34.0); Mean Corpuscular Hgb Conc 32.6 g/dL (32.0-36.0); Mean Corpuscular Volume 88.5 fL (80.0-100.0); Mean Platelet Volume 11.1 fL (9.4-12.4); Monocytes # (auto) 0.53 K/uL (0.11-0.59); Monocytes % (auto) 6.3 %; Neutrophils # (auto) 5.54 K/uL (1.40-6.50); Neutrophils % (auto) 66.1 %; Platelet Count 264 K/uL (130-400); RDW Coefficient of Variation 13.7 % (11.5-14.5); RDW Standard Deviation 44.4 fL (36.4-46.3); Red Blood Count 3.81 M/uL (4.20-5.40); White Blood Count 8.39 K/ul (4.8-10.8)
[2023-03-06 08:00] LABS: BUN Creatinine Ratio 11.5 (10-20); Calcium 8.5 mg/dl (8.6-10.3); Creatinine Clr Calc Pharmacy 57.1 ml/min; Est GFR (African American) 72.9 ml/min; Est GFR (Non-African American) 62.9 ml/min; Potassium 4.3 mmol/L (3.5-5.1)
[2023-03-06] MEDS: ONDANSETRON INJ 2 MG/ML 2 ML VIAL IV PRN (08:26)
[2023-03-06] MEDS: SUCRALFATE 1 GM/10 ML UDC PO SCH ×3 (08:29→15:17)
[2023-03-06] MEDS: SPIRONOLACTONE 25 MG TAB PO SCH (08:30)
[2023-03-06] MEDS: POLYETHYLENE (MIRALAX) 17 GM PACK PO SCH ×3 (08:30→21:36)
[2023-03-06] MEDS: GABAPENTIN 100 MG CAP PO SCH ×2 (08:30→21:36)
[2023-03-06] MEDS: TICAGRELOR 90 MG TAB PO SCH ×2 (08:30→21:34)
[2023-03-06] MEDS: ASPIRIN 81 MG ECTAB PO SCH (08:30)
[2023-03-06] MEDS: FAMOTIDINE 20 MG TAB PO SCH ×2 (08:30→21:34)
[2023-03-06] MEDS: FOLIC ACID 1 MG TAB PO SCH (08:30)
[2023-03-06] MEDS: ENOXAPARIN INJ 40 MG/0.4 ML SYR SQ SCH (08:31)
[2023-03-06] MEDS: DICLOFENAC SOD 1% GEL 100 GM TUBE EXT SCH ×2 (08:31→21:36)
[2023-03-06] MEDS: LANTUS PER UNIT CHARGE SQ SCH ×2 (08:31→21:33)
[2023-03-06] MEDS: MAGNESIUM OXIDE 400 MG TAB PO SCH ×2 (08:31→21:34)
[2023-03-06] MEDS: INSULIN ASPART PER UNIT CHARGE SC SCH ×4 (08:32→22:40)
[2023-03-06] MEDS ORDERED: POLYETHYLENE (MIRALAX) 17 GM PACK PO ONE (09:11)
--- NOTE | 2023-03-06 10:31 | Hospitalist Progress Note ---
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 NVD w/ Abdominal Pain | Uncontrolled T2DM | - Patient with multiple presentations for NVD w/ abdominal pain - 01/24/23 A1c 10.2 - CT A&P negative for any acute process. - Symptoms most consistent with T2DM gastroparesis over constipation. - On regular diet. - Tylenol for pain PRN - Continue SSI/10u Lantus BID, adjust basal/bolus regimen PRN - Gastric emptying study on 03/05 was negative for gastroparesis. -Zofran and Compazine as needed for nausea. Voltaren gel scheduled twice daily - Patient still with constipation, will increase MiraLAX to 3 times daily, given 85 g last night and this morning of MiraLAX in addition to being on 3 times daily scheduled. -Majority of her nausea will most likely resolve once constipation resolves. Patient will most likely need a bowel regimen at home. Hypokalemia (Resolved) | Hypomagnesemia (Resolved) - Ongoing history of hypokalemia and hypomagnesemia - Patient w/ Hx of VTach/Torsades 2/2 severe electrolyte anomalies - Hypomagnesemia resolved, continue Magnesium Oxide 400 mg PO BID and give IV mag supplement prn - Hypokalemia persists, but improving, continue PO supplementation PRN Hx of CHF: - Hypovolemic on presentation 2/2 NVD, now s/p 500 cc bolus in ER - 12/2022 Echo w/ EF 60-65% - Euvolemic on exam Hypothyroidism: - Continue home levothyroxine. Chronic conditions: - Continue statin, ASA, ticagrelor, gabapentin F/E/N/GI: DM 2 diet DVT Prophylaxis: SCDs Code status: would want CPR/Shock/meds if heart stopped, no intubation. Dispo: Med/Tele. Admission and Anticipated Discharge Date Admission Date: March 01, 2023 Supervising Physician Co-Signing Physician Notes I personally examined the patient and verified all real points of history and exam, discussed case, and agree with decision making with Dr Montgomery still nauseated, still no bowel movement Of any significance. Again requests to stand tomorrow. Discussed that that was essentially our discussion yesterday, and that medically she is quite stable, people often have an easier time having bowel movements at home in their own environment, and I am starting to worry more about deconditioning or nosocomial infection. She is quite adamant that she does not want to leave the hospital today. I discussed my fear that every day she will tell me that she will go home tomorrowand that tomorrow may never come. She assures me that she will let us discharge her tomorrow. vitals noted nad fatigued breathing unlabored no accessory muscles good effort skin no rashes no pallor or icterus neuro no focal deficits. n/v - likely multifactorial. fortunately gastric emptying study normal. suspect constipation > trigger points with elements of both. Extensive discussions. 85g miralax x1 again now, discussed staying on proactive bowel regimen (somewhere around 51g daily just for maintenance based on what she's taken thus far without meaningful BM), continue voltaren gel for trigger points (given that clinically they seem to be a more minor player, holding off on injection for now) lovenox for DVT proph otherwise as above Subjective Patient was seen bedside this AM. Still having nausea and ab pain, though abdominal pain is more epigastric which is a little bit of a different location than yesterday.. Still has not had a BM since admission. Review of Systems Review of Systems: All systems reviewed & are unremarkable except as noted in Subjective Physical Exam Physical Exam: Gen: NAD, alert, interactive HEENT: Supple, no LAD, no thyromegaly, no JVD Resp:Non-labored, no wheezing/rhonchi/rales, CTAB CV:RRR, normal S1/S2, no M/R/G Abd: Soft, non-distended, diffuse mild abdominal tenderness throughout, normoactive bowels, no masses Extr: 2+ dp bilaterally, no edema Skin: No rashes lesions or erythema Results & Data Results & Data Vital Signs (Past 12 Hours) Vital Signs Temp Pulse Resp BP Pulse Ox O2 Del Method 03/06/23 07:42 36.6 C 70 16 131/74 97 Room Air Resident Activity Tracking Resident Involvement: Resident Care Provided Care Provided: Adult Hospital Medicine (9) Hypothyroidism Hypothyroidism type: unspecified Qualified Code(s): E03.9 - Hypothyroidism, unspecified"
[2023-03-06] MEDS: ACETAMINOPHEN 325 MG TAB PO PRN (15:17)
--- NOTE | 2023-03-06 18:10 | Billing Data ---
Date of Service March 06, 2023 Coding Level of Care Code 55011 SUB INP/OBS CARE
[2023-03-06] MEDS: ATORVASTATIN 40 MG TAB PO SCH (21:35)
[2023-03-07] MEDS: LEVOTHYROXINE SODIUM 88 MCG TABLET PO SCH (06:34)
[2023-03-07 08:03] LABS: Basophils # (auto) 0.02 K/uL (0.00-0.20); Basophils % (auto) 0.2 %; Eosinophils # (auto) 0.39 K/uL (0.00-0.50); Eosinophils % (auto) 3.3 %; Hematocrit (blood only) 33.9 % (37.0-47.0); Hemoglobin 10.9 g/dl (12.0-16.0); Immature Granulocytes # (auto) 0.06 K/uL (0.01-0.20); Immature Granulocytes % (auto) 0.5 %; Lymphocytes # (auto) 1.91 K/uL (1.20-3.40); Lymphocytes % (auto) 16.1 %; Mean Corpuscular Hemoglobin 28.5 pg (25.0-34.0); Mean Corpuscular Hgb Conc 32.2 g/dL (32.0-36.0); Mean Corpuscular Volume 88.5 fL (80.0-100.0); Mean Platelet Volume 10.9 fL (9.4-12.4); Monocytes % (auto) 5.1 %; Neutrophils # (auto) 8.87 K/uL (1.40-6.50); Neutrophils % (auto) 74.8 %; Platelet Count 243 K/uL (130-400); RDW Coefficient of Variation 13.7 % (11.5-14.5); Red Blood Count 3.83 M/uL (4.20-5.40); White Blood Count 11.85 K/ul (4.8-10.8)
[2023-03-07 08:25] LABS: Albumin Globulin Ratio 0.9 (0.9-2); Albumin Level 2.8 gm/dl (3.4-5.0); BUN Creatinine Ratio 11.7 (10-20); Bilirubin,Total 0.4 mg/dl (0.2-1.0); Calcium 8.7 mg/dl (8.6-10.3); Creatinine Clr Calc Pharmacy 53.3 ml/min; Est GFR (Non-African American) 57.8 ml/min; Globulin 3.1 gm/dl (2.5-4.0); Magnesium 1.6 mg/dl (1.7-2.4); Potassium 4.3 mmol/L (3.5-5.1); Total Protein 5.9 gm/dl (6.0-8.3)
[2023-03-07] MEDS: MAGNESIUM OXIDE 400 MG TAB PO SCH ×2 (08:41→20:57)
[2023-03-07] MEDS: SPIRONOLACTONE 25 MG TAB PO SCH (08:41)
[2023-03-07] MEDS: FOLIC ACID 1 MG TAB PO SCH (08:41)
[2023-03-07] MEDS: GABAPENTIN 100 MG CAP PO SCH ×2 (08:42→20:56)
[2023-03-07] MEDS: TICAGRELOR 90 MG TAB PO SCH ×2 (08:42→20:58)
[2023-03-07] MEDS: ASPIRIN 81 MG ECTAB PO SCH (08:42)
[2023-03-07] MEDS: SUCRALFATE 1 GM/10 ML UDC PO SCH ×3 (08:43→15:42)
[2023-03-07] MEDS: ENOXAPARIN INJ 40 MG/0.4 ML SYR SQ SCH (08:44)
[2023-03-07] MEDS: DICLOFENAC SOD 1% GEL 100 GM TUBE EXT SCH ×2 (08:44→20:32)
[2023-03-07] MEDS: LANTUS PER UNIT CHARGE SQ SCH ×2 (08:48→21:04)
[2023-03-07] MEDS: POLYETHYLENE (MIRALAX) 17 GM PACK PO SCH ×3 (08:49→21:06)
[2023-03-07] MEDS: INSULIN ASPART PER UNIT CHARGE SC SCH ×4 (08:49→21:05)
[2023-03-07] MEDS ORDERED: FAMOTIDINE 20 MG in SYRINGE 3 ML IV ONE (09:08)
[2023-03-07] MEDS: FAMOTIDINE 20 MG TAB PO SCH ×2 (09:49→21:00)
[2023-03-07] MEDS: PROCHLORPERAZINE 5 MG in SYRINGE 4 ML IV ONE ×2 (09:49→09:54)
--- NOTE | 2023-03-07 09:49 | Discharge Summary ---
Date of Service March 07, 2023 Admission HPI Per Admitting Provider Yolanda is a 62 year old female w/ PmHx CAD s/p CHANTAL x2, HFpEF, HTN, HLD, DM2, tobacco use disorder, previous admission 12/2022 w/ cardiac arrest 2/2 ventricular tachycardia due to hypokalemia, multiple admission for N/V /hypokalemia coming in for N/V x2 days. Patient states that for the past 2 days she's had nausea, vomiting, diarrhea. The diarrhea is loose and runny without any blood and has been occurring every 4-5 hours. She's also been vomiting >5 times over the last couple days. She has abdominal pain at the front of her belly that goes to her back. She denies any fevers, chills, chest pain, has a little bit of shortness of breath. She states that she takes her home medications including spironolactone and usually takes sucralfate before every meal. In the ER WBC 12.31, K 2.6, Mg 1.4, U/A negative except for 2+ glucose and trace LE. Respiratory biofrire negative. CT A&P unremarkable for any acute processes. She was started on K rider, given morphine 4mg, Zofran, Tylenol, and NSS x500cc. Admission Exam Per Admitting Provider Constitutional: WD/WN, vitals as above Eyes: PERRL, conjunctivae normal, anicteric sclerae Respiratory: normal respiratory effort, lungs clear to auscultation Cardiovascular: RRR, no murmur, no edema Gastrointestinal (Abdomen): BS+, minor discomfort with palpation of the area surrounding the umbilicus, no rebound or guarding. Psychiatric: A+Ox3, euthymic affect Principal Diagnosis Chronic constipation Discharge Exam Gen: NAD, alert, interactive HEENT: Supple, no LAD, no thyromegaly, no JVD Resp:Non-labored, no wheezing/rhonchi/rales, CTAB CV:RRR, normal S1/S2, no M/R/G Abd: Soft, non-distended, diffuse mild abdominal tenderness throughout, normoactive bowels, no masses Extr: 2+ dp bilaterally, no edema Skin: No rashes lesions or erythema Discharge Data Allergies Allergy/AdvReac Type Severity Reaction Status Date / Time dulaglutide [From Trulicity] AdvReac Intermediate stomach Verified 01/23/23 23:13 pain albiglutide [From Tanzyadiram] AdvReac Unknown CAN'T Verified 01/23/23 23:13 REMEMBER Consultations 03/01/23 01:37 ED Decision to Admit Stat Ordered Studies 02/28/23 19:54 CT Abd and Pelvis [CT abd pelvis IV con only] Stat Hospital Course (1) Nausea: (2) Abdominal pain, epigastric: (3) Diarrhea: (4) Hypokalemia: (5) Hypomagnesemia: (6) Diabetes mellitus type 2 in obese: (7) Congestive heart failure: (8) Vitamin D deficiency: (9) Hypothyroidism: Johanna Guerrero is a 62F with PMH of uncontrolled T2DM w/ gastroparesis & nephropathy, CHF, 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 NVD w/ Abdominal Pain | Uncontrolled T2DM | - Patient with multiple presentations for NVD w/ abdominal pain - 01/24/23 A1C 10.2% - CTAP negative for any acute process. - Gastric emptying study on 03/05 was negative for gastroparesis. - Symptoms felt were most likely due to chronic constipation - Supportive care with anti-emetics PRN - Constipation treatment with scheduled Miralax - Recommend Miralax TID on discharge - Some trigger points of abdominal wall identified during hospitalization, consider trial of injection for pain relief if persistence despite resolution of constipation Hypokalemia (Resolved) | Hypomagnesemia (Resolved) - Ongoing history of frequent hypokalemia and hypomagnesemia - Patient w/ Hx of VTach/Torsades 2/2 severe electrolyte anomalies - Hypokalemia and hypomagnesemia resolved, continue Magnesium Oxide 400 mg PO BID Hx of CHF: - Hypovolemic on presentation 2/2 NVD, now s/p 500 cc bolus in ER - 12/2022 Echo w/ EF 60-65% - Euvolemic on exam Hypothyroidism: - Continued home levothyroxine. Chronic conditions: - Continued statin, ASA, ticagrelor, gabapentin Total Time Total Time Spent Total Time Spent (In Minutes): 30 Discharge Plan Discharge Items Patient Disposition: Home - Self-Care Reason For Visit: NAUSEA VOMITING Discharge Diagnosis: Constipation Activity: Resume your previous activity Non-emergency contact: Primary Care Provider Call non-emergency contact if: you have any medication questions, your pain is unusual for you and your temperature is above 101.5 Follow-up/Referrals: Jc Zaman DO [Primary Care Provider] - 03/14/23 11:00 am Diet: Carb Consistent or DM2 Addtl Attending Provider Instructions: You were admitted to the hospital for abdominal pain and nausea. Your symptoms were most likely due to chronic constipation. A discharge summary will be sent to your primary care physician to ensure continuity of care. Please bring this discharge summary with you to your next office appointment so that your provider can review it at that time. Follow-up appointments: * Make a follow-up appointment with your PCP within the next week. It is very important that you follow up with them shortly after discharge from the hospital. Medications: Your medication list has been reviewed and reconciled upon discharge to ensure accuracy and continuity of care. An updated list of all your medications is included with your hospital discharge paperwork. Please review this list closely, and make note of any changes. * We recommend taking Miralax three times a day along with Colace/Senna for constipation. You should aim for 64 oz of fluid intake per day along with more fiber in the diet to improve constipation. * If you have any issues filling these prescriptions, please call [phone] and ask to leave a message for Dr. Montgomery. * Take your medications as instructed; do not skip a dose of your medicines. Make sure all of your doctors know every medicine you are taking (including tqgy-vwv-[id number] medicines, vitamins, and supplements). Call your primary care provider before taking any new medicines (including over- the-counter medicines, vitamins, and supplements), because some of these may interact with your current medications, or may make your symptoms worse. Tell your primary care provider if you cannot afford your medications. CONTACT YOUR PRIMARY CARE PROVIDER if you experience any of the following: * Worsening of symptoms * Fever, chills, or fatigue * Difficulty following your treatment plan, or difficulty taking medications CALL 911 OR GO TO THE EMERGENCY DEPARTMENT if you experience any of the following: * Sudden, severe abdominal pain or nausea/vomiting * Severe chest pain, or chest pain that radiates (moves) to your jaw or arm * Sudden, severe shortness of breath or difficulty breathing Thank you for allowing us to participate in your care. Pending Studies at Discharge: No Stand-Alone Forms: My [facility] Medications and DC Order Prescriptions: Continued (DME) pen needle, diabetic [BD Ultra-Fine Cary Pen Needle] 32 gauge x 5/32" needle See Dose Instructions .ROUTE .MEDSUPPLY Qty: 200 11RF Dose Instruction: As directed Rx Instructions: use 2 times daily or as directed by physician to monitor blood sugar magnesium oxide 400 mg (241.3 mg magnesium) tablet 400 mg PO BID 90 Days Qty: 180 3RF ascorbic acid (vitamin C) [Vitamin C] 500 mg tablet 1,000 mg PO QAM Qty: 60 0RF folic acid 1 mg tablet 1 mg PO QAM Qty: 30 0RF gabapentin 100 mg capsule 200 mg PO BID Qty: 60 0RF Brilinta 90 mg tablet 90 mg PO BID Qty: 60 0RF peg 3350-electrolytes [Golytely] 236-22.74-6.74 -5.86 gram recon soln 240 ml PO ONCE Qty: 4000 0RF Rx Instructions: TAKE DIRECTED PER SPLIT DOSE INSTRUCTIONS (DME) blood-glucose meter [[place] Autocode Meter] Kit See Rx Instructions .Route Rx Instructions: As directed aspirin 81 mg Tablet,Delayed Release (Dr/Ec) 81 mg PO QAM Qty: 30 0RF Rx Instructions: Over the counter docusate sodium 100 mg Capsule 100 mg PO BID Qty: 60 0RF Rx Instructions: Over the counter pantoprazole 40 mg tablet,delayed release (DR/EC) 40 mg PO QAM Rx Instructions: TAKE ONE TABLET BY MOUTH ONCE DAILY multivitamin with folic acid [Daily-Seferino (with folic acid)] 400 mcg Tablet 1 tab PO QAM Qty: 30 0RF acetaminophen [Pharbetol] 500 mg Tablet 1,000 mg PO Q8H PRN (Reason: Pain) magnesium hydroxide [Milk of Magnesia] 400 mg/5 mL Suspension 30 ml PO DAILY PRN (Reason: Constipation) Humulin R U-500 (Conc) Kwikpen 500 unit/mL (3 mL) insulin pen 4 unit SUBCUT DIRECTED Rx Instructions: 4 UNITS BSG >200. atorvastatin 80 mg tablet 80 mg PO HS insulin glargine [Lantus U-100 Insulin] 100 unit/mL solution 10 unit SC HS spironolactone 25 mg tablet 25 mg PO QAM ergocalciferol (vitamin D2) 1,250 mcg (50,000 unit) capsule 50,000 unit PO WK Rx Instructions: MONDAYS calcium carbonate-vitamin D3 [Os-Michael 500 + D3] 500 mg-15 mcg (600 unit) tablet 2 tab PO BID Rx Instructions: need new script sucralfate 100 mg/mL Suspension 1 g PO AC Qty: 1000 0RF diclofenac sodium [Voltaren Arthritis Pain] 1 % gel 2 g EXT QID PRN (Reason: Pain) levothyroxine 88 mcg tablet 88 mcg PO DAILYBB Admission Data Admit Date/Time: 03/01/23 02:29 Attending Provider: Harry Hinojosa Admit Provider: Jac Valadez Primary Care Provider: Jc Zaman Other Providers: [facility]; Laurent Gaytan Resident Activity Tracking Resident Involvement: Resident Care Provided Care Provided: Adult Hospital Medicine
[2023-03-07] MEDS ORDERED: ONDANSETRON 4 MG OD TAB PO STA (10:01)
[2023-03-07] MEDS: ACETAMINOPHEN 325 MG TAB PO PRN (10:55)
--- NOTE | 2023-03-07 11:08 | Hospitalist Progress Note ---
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 NVD w/ Abdominal Pain | Uncontrolled T2DM | - Patient with multiple presentations for NVD w/ abdominal pain - 01/24/23 A1c 10.2 - CT A&P negative for any acute process. - Symptoms most consistent with T2DM gastroparesis over constipation. - On regular diet. - Tylenol for pain PRN - Continue SSI/10u Lantus BID, adjust basal/bolus regimen PRN - Gastric emptying study on 03/05 was negative for gastroparesis. -Zofran and Compazine as needed for nausea. Voltaren gel scheduled twice daily - Patient still with constipation, will increase MiraLAX to 3 times daily, given 85 g last night and this morning of MiraLAX in addition to being on 3 times daily scheduled. -Majority of her nausea will most likely resolve once constipation resolves. Patient will most likely need a bowel regimen at home. Hypokalemia (Resolved) | Hypomagnesemia (Resolved) - Ongoing history of hypokalemia and hypomagnesemia - Patient w/ Hx of VTach/Torsades 2/2 severe electrolyte anomalies - Hypomagnesemia resolved, continue Magnesium Oxide 400 mg PO BID - Hypokalemia resolved Hx of CHF: - Hypovolemic on presentation 2/2 NVD, now s/p 500 cc bolus in ER - 12/2022 Echo w/ EF 60-65% - Euvolemic on exam Hypothyroidism: - Continue home levothyroxine. Chronic conditions: - Continue statin, ASA, ticagrelor, gabapentin F/E/N/GI: DM 2 diet DVT Prophylaxis: SCDs Code status: would want CPR/Shock/meds if heart stopped, no intubation. Dispo: Medical/surgical Admission and Anticipated Discharge Date Admission Date: March 01, 2023 Supervising Physician Co-Signing Physician Notes I personally examined the patient and verified all real points of history and exam, discussed case, and agree with decision making with Dr Butts Still nauseated, but still ate a good bit for breakfast. No vomiting. Surprisingly no real bowel movements yet. Does not want to leave the hospital yet. After a very directed discussion, it seems more clear that the patient is extremely alone in the world, and whenever she leaves the hospital she has no real support system. We discussed at length that this is a very difficult way to go through her life, and that she needs to start to build a "team". Her mother is very sick, and her brother is preoccupied taking care of her mother. We discussed neighbors versus a cheondoism family, and it seems that the most viable might be her next-door neighbor who is a and lives alone herself. vitals noted nad fatigued breathing unlabored no accessory muscles good effort skin no rashes no pallor or icterus neuro no focal deficits. Abdomen soft, mildly distended, minimally tender worst epigastric but definitely far better than before. Also some left lower quadrant pain but no guarding rebound or rigidity, mild tenderness at worst. n/v - likely multifactorial. fortunately gastric emptying study normal. s uspect constipation > trigger points with elements of both. Also I do wonder how much anxiety/loneliness is contributing to her chronic nausea.Extensive discussions. 85g miralax x1 again today, discussed staying on proactive bowel regimen (somewhere around 51g daily just for maintenance based on what she's taken thus far without meaningful BM), continue voltaren gel for trigger points (given that clinically they seem to be a more minor player, holding off on injection for now) Discussed that she is absolutely stable for discharge, but given her overall situation and lack of social support, will continue to support her in the hospital a little bit longer, but I do worry about risk of deconditioning and nosocomial infections. She is willing to absorb that risk. lovenox for DVT proph otherwise as above Subjective Acute events overnight- none. Pt examined at bedside. Did have BM last night although of less quantity than her baseline, normal stool quality. Review of Systems Review of Systems: As per HPI. Physical Exam Physical Exam: Gen: NAD, alert, interactive HEENT: Supple, no LAD, no thyromegaly, no JVD Resp:Non-labored, no wheezing/rhonchi/rales, CTAB CV:RRR, normal S1/S2, no M/R/G Abd: Soft, non-distended, diffuse mild abdominal tenderness throughout, normoactive bowels, no masses Extr: 2+ dp bilaterally, no edema Skin: No rashes lesions or erythema Results & Data Results & Data Vital Signs (Past 12 Hours) Vital Signs Temp Pulse Resp BP Pulse Ox O2 Del Method 03/07/23 08:39 36.9 C 75 16 136/81 93 Room Air Resident Activity Tracking Resident Involvement: Resident Care Provided Care Provided: Adult Hospital Medicine (9) Hypothyroidism Hypothyroidism type: unspecified Qualified Code(s): E03.9 - Hypothyroidism, unspecified
[2023-03-07] MEDS ORDERED: POLYETHYLENE (MIRALAX) 17 GM PACK PO ONE (14:59)
[2023-03-07] MEDS ORDERED: METOCLOPRAMIDE HCL 5 MG TABLET PO STA (15:51)
--- NOTE | 2023-03-07 16:58 | Billing Data ---
Date of Service March 07, 2023 Coding Level of Care Code 61035 SUB INP/OBS CARE
[2023-03-07] MEDS: ATORVASTATIN 40 MG TAB PO SCH (20:57)
[2023-03-08] MEDS: LEVOTHYROXINE SODIUM 88 MCG TABLET PO SCH (06:19)
--- NOTE | 2023-03-08 07:09 | Hospitalist Progress Note ---
Date of Service March 08, 2023 Assessment & Plan (1) Nausea: (2) Abdominal pain, epigastric: (3) Diarrhea: (4) Hypokalemia: (5) Hypomagnesemia: (6) Diabetes mellitus type 2 in obese: (7) Congestive heart failure: (8) Vitamin D deficiency: (9) Hypothyroidism: Admission and Anticipated Discharge Date Admission Date: March 01, 2023 Results & Data Results & Data Vital Signs (Past 12 Hours) Vital Signs Temp Pulse Resp BP Pulse Ox O2 Del Method 03/07/23 22:36 Room Air 03/07/23 21:35 36.7 C 69 16 113/68 95 Room Air Resident Activity Tracking Resident Involvement: Resident Care Provided Care Provided: Adult Hospital Medicine (9) Hypothyroidism Hypothyroidism type: unspecified Qualified Code(s): E03.9 - Hypothyroidism, unspecified
[2023-03-08] MEDS: SUCRALFATE 1 GM/10 ML UDC PO SCH ×2 (08:10→12:35)
[2023-03-08] MEDS: LANTUS PER UNIT CHARGE SQ SCH (08:37)
[2023-03-08] MEDS: INSULIN ASPART PER UNIT CHARGE SC SCH ×2 (08:37→12:39)
[2023-03-08] MEDS: ENOXAPARIN INJ 40 MG/0.4 ML SYR SQ SCH (08:42)
[2023-03-08] MEDS: ASPIRIN 81 MG ECTAB PO SCH (08:43)
[2023-03-08] MEDS: POLYETHYLENE (MIRALAX) 17 GM PACK PO SCH ×2 (08:43→13:41)
[2023-03-08] MEDS: DICLOFENAC SOD 1% GEL 100 GM TUBE EXT SCH (08:44)
[2023-03-08] MEDS: FAMOTIDINE 20 MG TAB PO SCH (08:44)
[2023-03-08] MEDS: FOLIC ACID 1 MG TAB PO SCH (08:45)
[2023-03-08] MEDS: GABAPENTIN 100 MG CAP PO SCH (08:45)
[2023-03-08] MEDS: MAGNESIUM OXIDE 400 MG TAB PO SCH (08:45)
[2023-03-08] MEDS: SPIRONOLACTONE 25 MG TAB PO SCH (08:46)
[2023-03-08] MEDS: TICAGRELOR 90 MG TAB PO SCH (08:47)
--- NOTE | 2023-03-08 14:16 | Discharge Summary ---
Date of Service March 08, 2023 Admission HPI Per Admitting Provider Yolanda is a 62 year old female w/ PmHx CAD s/p CHANTAL x2, HFpEF, HTN, HLD, DM2, tobacco use disorder, previous admission 12/2022 w/ cardiac arrest 2/2 ventricular tachycardia due to hypokalemia, multiple admission for N/V /hypokalemia coming in for N/V x2 days. Patient states that for the past 2 days she's had nausea, vomiting, diarrhea. The diarrhea is loose and runny without any blood and has been occurring every 4-5 hours. She's also been vomiting >5 times over the last couple days. She has abdominal pain at the front of her belly that goes to her back. She denies any fevers, chills, chest pain, has a little bit of shortness of breath. She states that she takes her home medications including spironolactone and usually takes sucralfate before every meal. In the ER WBC 12.31, K 2.6, Mg 1.4, U/A negative except for 2+ glucose and trace LE. Respiratory biofrire negative. CT A&P unremarkable for any acute processes. She was started on K rider, given morphine 4mg, Zofran, Tylenol, and NSS x500cc. Admission Exam Per Admitting Provider Constitutional: WD/WN, vitals as above Eyes: PERRL, conjunctivae normal, anicteric sclerae Respiratory: normal respiratory effort, lungs clear to auscultation Cardiovascular: RRR, no murmur, no edema Gastrointestinal (Abdomen): BS+, minor discomfort with palpation of the area surrounding the umbilicus, no rebound or guarding. Psychiatric: A+Ox3, euthymic affect Principal Diagnosis Constipation Discharge Exam General: No acute distress HEENT: PERRLA. Normal conjunctiva, anicteric sclera. Oropharynx normal. Respiratory: Normal respiratory effort. Cardiovascular: RRR without murmurs, gallops, or rubs. No pedal edema.Nontender x4 quadrants Neuro: Alert and oriented x3. 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 Abdominal pain w/nausea, vomiting & diarrhea | Uncontrolled T2DM | - Patient with multiple presentations for NVD w/ abdominal pain. Suspected etiology: T2DM gastroparesis vs constipation. - 01/24/23 A1c 10.2 - CT A&P negative for acute process. -Gastric emptying study (03/05) negative for gastroparesis. - On regular diet. - Tylenol for pain PRN * SSI/10u Lantus BID, adjust basal/bolus regimen PRN * Zofran and Compazine as needed for nausea * Voltaren gel scheduled twice daily * MiraLAX increased to 3 times daily * Discharged on recommended home bowel regimen: MiraLAX x 5 doses daily until symptomatic improvement, then decrease to ~1-3 doses daily as needed to maintain daily BM. Hypokalemia (Resolved) | Hypomagnesemia (Resolved) - Ongoing history of hypokalemia and hypomagnesemia - Patient w/ Hx of VTach/Torsades 2/2 severe electrolyte anomalies - Hypomagnesemia resolved, continue Magnesium Oxide 400 mg PO BID - Hypokalemia resolved Hx of CHF - Hypovolemic on presentation 2/2 NVD, now s/p 500 cc bolus in ER - 12/2022 Echo w/ EF 60-65% - Euvolemic on exam Hypothyroidism * Home levothyroxine. Chronic conditions * Home statin, ASA, ticagrelor, gabapentin (2) Nausea: (3) Diarrhea: (4) Chronic constipation: (5) Hypokalemia: (6) Hypomagnesemia: (7) Diabetes mellitus type 2 in obese: (8) Congestive heart failure: (9) Vitamin D deficiency: (10) Hypothyroidism: Total Time Total Time Spent Total Time Spent (In Minutes): <30 Discharge Plan Discharge Items Patient Disposition: Home - Self-Care Reason For Visit: NAUSEA VOMITING Discharge Diagnosis: Constipation Activity: Resume your previous activity Non-emergency contact: Primary Care Provider Call non-emergency contact if: you have any medication questions, your pain is unusual for you and your temperature is above 101.5 Follow-up/Referrals: Jc Zaman DO [Primary Care Provider] - 03/14/23 11:00 am Diet: Carb Consistent or DM2 Addtl Attending Provider Instructions: You were admitted to the hospital for abdominal pain and nausea. Your symptoms were most likely due to chronic constipation. A discharge summary will be sent to your primary care physician to ensure continuity of care. Please bring this discharge summary with you to your next office appointment so that your provider can review it at that time. Follow-up appointments: * Make a follow-up appointment with your PCP within the next week. It is very important that you follow up with them shortly after discharge from the hospital. Medications: Your medication list has been reviewed and reconciled upon discharge to ensure accuracy and continuity of care. An updated list of all your medications is included with your hospital discharge paperwork. Please review this list closely, and make note of any changes. * We recommend taking Miralax three times a day, along with Colace/Senna as needed for constipation. You should aim for 64 oz of fluid intake per day, along with increasing the amount of fiber in your diet to improve constipation. * If you have any issues filling these prescriptions, please call [phone] and ask to leave a message for Dr. Montgomery. * Take your medications as instructed; do not skip a dose of your medicines. Make sure all of your doctors know every medicine you are taking (including [id number] medicines, vitamins, and supplements). Call your primary care provider before taking any new medicines (including over- the-counter medicines, vitamins, and supplements), because some of these may interact with your current medications, or may make your symptoms worse. Tell your primary care provider if you cannot afford your medications. CONTACT YOUR PRIMARY CARE PROVIDER if you experience any of the following: * Worsening of symptoms * Fever, chills, or fatigue * Difficulty following your treatment plan, or difficulty taking medications CALL 911 OR GO TO THE EMERGENCY DEPARTMENT if you experience any of the following: * Sudden, severe abdominal pain or nausea/vomiting * Severe chest pain, or chest pain that radiates (moves) to your jaw or arm * Sudden, severe shortness of breath or difficulty breathing Thank you for allowing us to participate in your care. Abdominal Pain, Nausea -as we have discussed, your abdominal pain and nausea are likely multiple factors playing off of each other: constipation, abdominal wall trigger points, and loneliness Constipation -it's quite clear that you run chronically constipated. we've given you a lot of stool softener (MiraLAX) with surprisingly little bowel movements yet. to be clear - nothing about your story looks/walks/talks/appears consistent with more ominous problems (i.e. there's nothing here that looks like a bowel obstruction/etc) -look at this part of things as a "two step process" - step one is getting the "logjam" cleared out, then step two is keeping your bowels moving regularly so this doesn't happen again; there are a ton of different ways to use medicines to help with bowel movements; i like to keep things simple by just using MiraLAX and adjusting the dose up or down (rather than using multiple different medicines and creating a lot of confusion on what did/didn't work). MiraLAX acts by pulling more water into your intestines - doing this at low doses softens the stool; at higher doses it pulls enough water in to have a laxative effect. for reference, a reasonable range of dosing would be as low as 1 capful (mild stool softener dosing) the whole way up to about 12-15 capfuls all back to back (more or less a bowel prep for a colonoscopy) - for reference, you've been getting around 5-8 doses the last few days -"step one" - we'd recommend continuing to take a moderate amount of MiraLAX every day until your bowels really get moving. given that you've been getting 5-8 doses a day the last few days here, I'd have you continue with about 5 doses a day at home (this has a cumulative effect as you continue with medium dosing over time, and also when people are in their own environment their rzrdb-nm-rssyyg nervous system tends to relax more so usually people have an easier time having a bowel movement at home) - i would stay at this "medium range" dosing until you've really moved a lot of stool (this can be pretty variable - sometimes people have surprisingly large solid bowel movements, but most of the time the MiraLAX liquifies what's in there and it all comes out seeming like copious amounts of diarrhea) - do this until it feels like your stomach is more deflated/the stool is getting less thick/more watery. obviously if you're having a lot of very watery/fairly clear diarrhea back off on things. as we've discussed, this phase of things might take a week or so, so between now and next weekend i would really look at it as "anything is possible" as far as how your bowels are functioning. unfortunately there's no real pleasant way to get a stool backup out, but remember that it's a short term problem for terminal press operator improvement -"step two" - once you've gotten your bowels cleared out, since it's clear you have a chronic constipation problem at baseline, you'll need to take steps to prevent yourself from getting backed up again. basically what i would have you do there is continue to take MiraLAX on a daily basis but just less than what it took to clear you out. my guess will be that you'll settle in to ~3 doses a day to keep your bowels moving. however, more important than my best guess, you'll dose each day's MiraLAX based on yesterday's bowel movement. (for example - if you took 3 doses yesterday and didn't have a bowel movement, then today you'd want to bump it up to 4-5. on the contrary, if you took 3 doses yesterday and spent the day having a lot of watery diarrhea (remember - this is AFTER the next week or so where things might be unpleasant as you "clean out") then you would take less (maybe even 0 doses for a day or two) - but knowing that you'll need to pay attention to what your bowels are doing so you don't get backed up again. a reasonable goal would be to have 1 medium sized bowel movement a day -Remember, despite having "lax" in the name MiraLAX is actually a stool softener not a stimulant laxative. This means that you do not really have to worry about developing any tolerance to it like people can sometimes with regular laxatives -to be thorough and complete, we would recommend having a colonoscopy sometime in the near future (nothing urgent, but i would say try to get it done before Easter - mostly just because if we don't put a "finish line" on something like this, it's really easy to totally forget and never get there) Abdominal Wall Trigger Points - I will be the first to admit that these sound very weird, and almost sounds like I am making something up, but they are surprisingly not rare in people with chronic abdominal pain/chronic nausea - what they are are little wadded up balls of fascia in your abdominal wall. Essentially they are a small area of what would almost amounts to muscle spasm (except in the fascia overlying the muscle rather than the muscle itself) and really they should create a pain signal that feels like you strained your abdominal muscles. Oddly instead, because of how they track the pain signal back to our spinal cord, they create a fake sensation of nausea. - While I suspect these are a fairly small part of your nausea right now, there are definitely people where they are the dominant reason the person has nausea and abdominal pain (again even when the pain feels like it is coming from the stomach/internal organs, not the abdominal wall). - Right now I would suggest you continue to use Voltaren gel on your upper abdomen 34 times a day. This usually helps quiet trigger points down some. However, if it starts to become clear that they are a major part of the problem, having abdominal wall trigger point injections can be very beneficial. - If you get to where you are clearly no longer constipated, if you have addressed the loneliness, and you still have what seems to be stomach pain and nausea that nobody can explain with other causesthis is where it would definitely be time to have the trigger points injected Loneliness - you might think it sounds silly for hospitalist to have loneliness as a major diagnosis when you are here with abdominal pain and nausea, but the typical modern view of our mind from our body is silly, illogical, and somewhat fraudulent. - Life is really built to be a "team support" and when we go it alone, we tend to have a lot more depression, apathy, and malaise. All of this often very commonly manifests as nausea as well. - It sounds like unfortunately right now you do not have much of a "team"but this is absolutely critical and taking care of yourself/feeling better/having the best life that you can. - In this respect, I cannot do this for you (I would joke that if I could I would write a prescription for a close friend, but I doubt insurance would even cover a cat)but I am 100% serious that if you do not start to take steps to address the loneliness you will almost certainly continue to have physical health problems that seem disproportionate to what you would expect. - Because of proximity, I would start with your neighbors. It sounds like Heidi who lives next-door may be every bit as lonely as you are. This week I would knock on her door and start to strike out more of a meaningful friendship. Other options would be getting involved with the episcopalian family, getting involved at the hospital for behavioral medicine, or even becoming a volunteer here at the hospital. - This will push her comfort zone, but it is absolutely critical to your wellbeing. Reasonable starting point goal would be to have some degree of either meaningful or fine interaction with another person 12 times a week. - For your peace of mind on this ironically you are not alone in your loneliness. There are statistics that show that this is an absolute epidemic in our country right now. That also means that it is quite likely that whether it is your neighbor, or someone else that you can start to form a gay with, there is someone else struggling with the exact same problems you are, and you can both help each other by forming connections. Pending Studies at Discharge: No Stand-Alone Forms: My [facility] Medications and DC Order Prescriptions: Continued (DME) pen needle, diabetic [BD Ultra-Fine Cary Pen Needle] 32 gauge x 5/32" needle See Dose Instructions .ROUTE .MEDSUPPLY Qty: 200 11RF Dose Instruction: As directed Rx Instructions: use 2 times daily or as directed by physician to monitor blood sugar magnesium oxide 400 mg (241.3 mg magnesium) tablet 400 mg PO BID 90 Days Qty: 180 3RF ascorbic acid (vitamin C) [Vitamin C] 500 mg tablet 1,000 mg PO QAM Qty: 60 0RF folic acid 1 mg tablet 1 mg PO QAM Qty: 30 0RF gabapentin 100 mg capsule 200 mg PO BID Qty: 60 0RF Brilinta 90 mg tablet 90 mg PO BID Qty: 60 0RF peg 3350-electrolytes [Golytely] 236-22.74-6.74 -5.86 gram recon soln 240 ml PO ONCE Qty: 4000 0RF Rx Instructions: TAKE DIRECTED PER SPLIT DOSE INSTRUCTIONS (DME) blood-glucose meter [Prodigy Autocode Meter] Kit See Rx Instructions .Route Rx Instructions: As directed aspirin 81 mg Tablet,Delayed Release (Dr/Ec) 81 mg PO QAM Qty: 30 0RF Rx Instructions: Over the counter docusate sodium 100 mg Capsule 100 mg PO BID Qty: 60 0RF Rx Instructions: Over the counter pantoprazole 40 mg tablet,delayed release (DR/EC) 40 mg PO QAM Rx Instructions: TAKE ONE TABLET BY MOUTH ONCE DAILY multivitamin with folic acid [Daily-Seferino (with folic acid)] 400 mcg Tablet 1 tab PO QAM Qty: 30 0RF acetaminophen [Pharbetol] 500 mg Tablet 1,000 mg PO Q8H PRN (Reason: Pain) magnesium hydroxide [Milk of Magnesia] 400 mg/5 mL Suspension 30 ml PO DAILY PRN (Reason: Constipation) Humulin R U-500 (Conc) Kwikpen 500 unit/mL (3 mL) insulin pen 4 unit SUBCUT DIRECTED Rx Instructions: 4 UNITS BSG >200. atorvastatin 80 mg tablet 80 mg PO HS insulin glargine [Lantus U-100 Insulin] 100 unit/mL solution 10 unit SC HS spironolactone 25 mg tablet 25 mg PO QAM ergocalciferol (vitamin D2) 1,250 mcg (50,000 unit) capsule 50,000 unit PO WK Rx Instructions: MONDAYS calcium carbonate-vitamin D3 [Os-Michael 500 + D3] 500 mg-15 mcg (600 unit) tablet 2 tab PO BID Rx Instructions: need new script sucralfate 100 mg/mL Suspension 1 g PO AC Qty: 1000 0RF diclofenac sodium [Voltaren Arthritis Pain] 1 % gel 2 g EXT QID PRN (Reason: Pain) levothyroxine 88 mcg tablet 88 mcg PO DAILYBB Discharge Orders: Discharge Order (Routine); Ordered 03/08/23 Ordered By: Long Richardson/Other Patient Handouts: ED Epigastric Pain Uncertain Cause Admission Data Admit Date/Time: 03/01/23 02:29 Attending Provider: Harry Hinojosa Admit Provider: Jac Valadez Primary Care Provider: Jc Zaman Other Providers: [facility],Home Health; Laurent Gaytan Other Interventions: Discharge Summary Assessment (RN) Last Done: 03/08/23 14:40 Supervising Physician Co-Signing Physician Notes I personally examined the patient and verified all real points of history and exam, discussed case, and agree with decision making with Dr Collins feels up to going home vitals noted nad fatigued breathing unlabored no accessory muscles good effort skin no rashes no pallor or icterus neuro no focal deficits. n/v - likely multifactorial. fortunately gastric emptying study normal. suspect constipation > loneliness (causing psychogenic nausea) > trigger points but probably elements of all three. safe/stable for home. see discharge instructions for details as outlined/given to pt lovenox for DVT proph otherwise as above Resident Activity Tracking Resident Involvement: Resident Care Provided Care Provided: Adult Hospital Medicine
--- NOTE | 2023-03-08 16:57 | Billing Data ---
Date of Service March 08, 2023 Coding Level of Care Code 36037 INP/OBS DISCH >30 MIN
== END 2023-03-08 15:47 | disposition home or self-care (01) | DRG 74 ==
LOC: ED 19:16 → 2N 03-01 02:29 → SUATTDRO 03-01 02:29 → 2N 03-01 04:09 → 3W 03-05 14:37

== ENCOUNTER 2023-03-19 20:28 | Inpatient (IN) ==
[2023-03-19 21:50] LABS: Basophils # (auto) 0.04 K/uL (0.00-0.20); Basophils % (auto) 0.3 %; Eosinophils # (auto) 0.22 K/uL (0.00-0.50); Eosinophils % (auto) 1.5 %; Hematocrit (blood only) 36.6 % (37.0-47.0); Hemoglobin 13.2 g/dl (12.0-16.0); Immature Granulocytes # (auto) 0.05 K/uL (0.01-0.20); Immature Granulocytes % (auto) 0.3 %; Lymphocytes # (auto) 3.16 K/uL (1.20-3.40); Lymphocytes % (auto) 21.5 %; Mean Corpuscular Hemoglobin 29.4 pg (25.0-34.0); Mean Corpuscular Hgb Conc 36.1 g/dL (32.0-36.0); Mean Corpuscular Volume 81.5 fL (80.0-100.0); Mean Platelet Volume 11.4 fL (9.4-12.4); Monocytes # (auto) 0.61 K/uL (0.11-0.59); Monocytes % (auto) 4.1 %; Neutrophils # (auto) 10.62 K/uL (1.40-6.50); Neutrophils % (auto) 72.3 %; Platelet Count 337 K/uL (130-400); RDW Coefficient of Variation 13.2 % (11.5-14.5); RDW Standard Deviation 38.6 fL (36.4-46.3); Red Blood Count 4.49 M/uL (4.20-5.40)
[2023-03-19 21:59] LABS: Albumin Level 3.4 gm/dl (3.4-5.0); BUN Creatinine Ratio 6.1 (10-20); Bilirubin,Total 0.5 mg/dl (0.2-1.0); Calcium 8.7 mg/dl (8.6-10.3); Creatinine Clr Calc Pharmacy 53.1 ml/min; Est GFR (African American) 70.3 ml/min; Est GFR (Non-African American) 60.6 ml/min; Globulin 3.3 gm/dl (2.5-4.0); Potassium 2.6 mmol/L (3.5-5.1); Total Protein 6.7 gm/dl (6.0-8.3)
[2023-03-19 22:05] LABS: Adenovirus PCR Not Detected (NotDetected); Bordetella parapertussis PCR Not Detected (NotDetected); Bordetella pertussis PCR Not Detected (NotDetected); Chlamydia pneumoniae PCR Not Detected (NotDetected); Coronavirus 229E PCR Not Detected (NotDetected); Coronavirus CoV-2 (COVID19)PCR Not Detected (NotDetected); Coronavirus HKU1 PCR Not Detected (NotDetected); Coronavirus NL63 PCR Not Detected (NotDetected); Coronavirus OC43PCR Not Detected (NotDetected); Human Metapneumovirus PCR Not Detected (NotDetected); Influenza A PCR Not Detected (NotDetected); Influenza B PCR Not Detected (NotDetected); Mycoplasma pneumoniae PCR Not Detected (NotDetected); Parainfluenza Virus 1 PCR Not Detected (NotDetected); Parainfluenza Virus 2 PCR Not Detected (NotDetected); Parainfluenza Virus 3 PCR Not Detected (NotDetected); Parainfluenza Virus 4 PCR Not Detected (NotDetected); Respiratory Syncytial VirusPCR Not Detected (NotDetected); Rhinovirus/Enterovirus PCR Not Detected (NotDetected)
[2023-03-19 22:17] LABS: INR 0.9 (0.9-1.1); Partial Thromboplastin Ratio 0.7; Prothrombin Time 10.1 Seconds (9.0-12.0)
[2023-03-19 22:30] LABS: Partial Thromboplastin Time < 20 Seconds (21-31)
[2023-03-19] MEDS: SODIUM CHLORIDE 0.9% 2,000 ML IV ONE (23:13)
[2023-03-19] MEDS: POTASSIUM CHLORIDE / WTR 10 MEQ/100 ML PLCT IV SCH (23:13)
--- NOTE | 2023-03-19 23:21 | Emergency Department Note ---
Impression & Plan Chest pain, Hypomagnesemia, Hyperglycemia, Acute hypokalemia, Nausea & vomiting, Acute dehydration ED Provider Note HISTORY OF PRESENT ILLNESS: Patient is a 62-year-old female presenting with chest pain and nausea. Patient reports that for the last 3 days she has been having constant, substernal chest pain. States the pain radiates into her left arm and into her back. States the pain is a sharp stabbing sensation. She does have a history of CAD but is only on a baby aspirin. She reports associated shortness of breath. She is also had nausea and multiple episodes of vomiting. She reports she is also been having constant diarrhea for the last 3 days. Denies any recent antibiotic use. Denies any recent travel. She reports that her blood sugars have been running very high in the last few days. Denies any fevers. Denies any dysuria or hematuria. Is complaining of generalized abdominal pain. ROS: as above PHYSICAL EXAM: Constitutional: Patient appears in no acute distress. HENT: Head: Normocephalic and atraumatic. Eyes: EOMI, PERRL Mouth/Throat: Mucous membranes dry Neck: Trachea midline. Neck supple. Cardiovascular: RRR, No murmurs, rubs or gallops. Intact distal pulses. Pulmonary/Chest: No respiratory distress. Breath sounds clear and equal bilaterally. No wheezes or rales. Abdominal: Abdomen soft, no tenderness, rebound or guarding. Musculoskeletal: No edema, tenderness or deformity noted. Skin: Warm and dry. No rash, erythema, pallor or cyanosis Psychiatric: Appropriate mood and affect for situation. Neurological: Alert and keenly responsive. CN II-XII grossly intact, moving all extremities equally and fully. MDM: - Vitals signs showed hypotension. - History obtained via patient. Patient presents with chest pain, nausea and vomiting. Patient reports for the last 3 days she has had constant, substernal sharp chest pain that radiates into her back and left arm. She has a history of CAD with stents in place but is only on a baby aspirin. Reports associated shortness of breath. Has had nausea multiple episodes of vomiting and diarrhea. Denies any recent antibiotic use or fevers. - Chronic conditions affecting care: DM-2; CHF; GERD; HTN; HLD; CAD (s/p PCI) - Differential diagnoses include, but are not limited to: Acute coronary syndrome; pulmonary embolism; dissection; tension pneumothorax; esophageal rupture; pneumonia; viral syndrome; electrolyte abnormality - Order placed for continuous cardiac monitoring. At this time, monitor showed rate of 65 bpm with normal sinus rhythm, per my interpretation. - External medical records reviewed. Discharge summary dated 03/08/2023 was reviewed. Patient was admitted for 8 days for nausea and vomiting with hypokalemia and hypomagnesemia. She had a negative CT abdomen/pelvis at that time. Her symptoms were thought to be secondary to gastroenteritis. EMS run sheet from today was reviewed. Patient was given 324 mg of aspirin prehospital. - EKG interpreted by myself showed normal sinus rhythm. Rate 65 bpm. QT 462. No acute ischemic changes. - Laboratory workup interpreted by myself showed leukocytosis (WBC 14.70) with left shift; hyponatremia (Na 133); hypokalemia (K 2.6); hypomagnesemia (Mg 1.5); hyperglycemia (glucose 398); elevate anion gap (12); normal troponin - CXR negative for pneumonia, per my interpretation - Respiratory viral panel negative - Patient given 2L NS and ordered for 10 mEq IV potassium (x3). 1g IV magnesium also ordered for electrolyte replacement - Patient appears very dry on physical examination. I believe her hypotension is likely from volume depletion and less likely sepsis in etiology, given no discernable infectious source at this time. - Patient is hyperglycemic and likely would benefit from insulin, however her potassium level is very low at this time and electrolytes need replaced before insulin is administered - Heart score 3 (History +0 slightly suspicious; EKG +0; Age +1; Risk factors +2; Initial troponin +0), amounting to a low score. - Patient's chest pain seems very atypical for angina, given that she has been having constant pain for the last 3 days but her troponin is within normal limits. - Discussion was had with nanny caregiver about patient's case and need for admission - Hospitalist consulted for admission - Patient admitted to [facility] for further evaluation and management. I have personally spent 34 minutes of critical care time in the direct management of this patient. This includes bedside care, interpretation of diagnostic studies, and testing, discussion with consultants, patient, and family members, and other required patient management activities. This 34 minutes is in excess of all separately billable procedures. ASSESSMENT AND PLAN: Diagnosis: chest pain; hypokalemia; hypomagnesemia; nausea and vomiting; hyperglycemia; dehydration Plan: admit Past Med/Surg History Medical History (Updated 03/20/23 @ 00:15 by Karina Denise MD) Chronic constipation URI (upper respiratory infection) Chest pain Diabetes mellitus Congestive heart failure Leukocytosis Hyperglycemia GERD (gastroesophageal reflux disease) Hyponatremia Nausea Chest pain Vitamin D deficiency Diabetes mellitus type 2 in obese Acute on chronic combined systolic and diastolic CHF (congestive heart failure) Nausea vomiting and diarrhea Bradycardia with 41-50 beats per minute Hyperglycemia Chest pain Hypokalemia Hypomagnesemia Accelerated hypertension Albuminuria Diabetic nephropathy associated with type 2 diabetes mellitus Depression Osteoarthritis Chronic headaches CAD (coronary artery disease) No remaining occlusive disease after 2 LAD drug eluting stents 10/22/20. Follows with Dr. Harris NSTEMI (non-ST elevated myocardial infarction) 10/22/2020 s/p 2 CHANTAL Vulvitis Diabetes type 2, uncontrolled IDDM Dyslipidemia Tobacco abuse Hypertension Hypothyroidism Obesity Anxiety Surgical History (Updated 03/03/23 @ 00:09 by Janie Brewer) History of cardiac catheterization 10/22/2020 Dominant: Right Left Main (% Stenosis): Normal LAD (% Stenosis): Proximal (99) and Mid (75) Circumflex (% Stenosis): Normal (luminal irregularities) RCA (% Stenosis): Normal (Luminal irregularities) 2 CHANTAL to LAD S/P coronary artery stent placement 2 CHANTAL to LAD 10/22/2020 History of cholecystectomy History of dental surgery History of tonsillectomy Family History Unknown Diabetes Thyroid disorder Father Diabetes Other No family history of adverse response to anesthesia Denies family history of Ovarian cancer Prostate cancer Breast cancer Colorectal cancer Uterine cancer Social History Smoking Status: Never smoker Tobacco Type: Cigarettes packs per day: 0.5; Cigarettes Per Day: 10; Second Hand Exposure: No; Do You Dip or Chew Tobacco: No; Hx Alcohol Use: No Hx Substance Use: No Preferred Language: Mongolian Communication Ability: Effective Visual Impairment: No Limitations Psychometrician Required: No Beliefs That Will Affect Care: None marital status: Single Current Living Situation: Alone current occupational status: disabled How many Children do You have: 0 Feels Safe at Home: Yes Safety Concerns Comment: Gets nervous sometimes because she lives alone, gets shaky from anxiety Diet: regular caffeine: Yes Dental Care, Regularly: No Physical Activity Frequency: Does not Exercise Seatbelt Use: always Sunscreen Use: No Assistive Devices: Walker Allergies Allergies Allergy/AdvReac Type Severity Reaction Status Date / Time dulaglutide [From Trulicity] AdvReac Intermediate stomach Verified 03/19/23 23:08 pain albiglutide [From Tanzeum] AdvReac Unknown CAN'T Verified 03/19/23 23:08 REMEMBER Home Meds Home Medications Medication Instructions Recorded Confirmed blood-glucose meter (Prodigy 10/15/21 02/28/23 Autocode Meter kit) pantoprazole 40 mg tablet,delayed 40 mg PO QAM 12/19/22 03/19/23 release acetaminophen 500 mg tablet 1,000 mg PO Q8H PRN Pain 01/23/23 03/19/23 (Pharbetol) atorvastatin 80 mg tablet 80 mg PO HS 01/23/23 03/19/23 calcium carbonate 500 mg-vitamin 2 tab PO BID 01/23/23 03/19/23 D3 15 mcg (600 unit) tablet (Os-Michael 500 + D3) ergocalciferol (vitamin D2) 1,250 50,000 unit PO WK 01/23/23 03/19/23 mcg (50,000 unit) capsule insulin glargine 100 unit/mL 10 unit SC HS 01/23/23 03/19/23 subcutaneous solution (Lantus U-100 Insulin) insulin regular hum U-500 conc 500 4 unit subcut DIRECTED 01/23/23 03/19/23 unit/mL(3 mL) subcut pen (Humulin R U-500 (Conc) Insulin Kwikpen) magnesium hydroxide 400 mg/5 mL 30 ml PO DAILY PRN Constipation 01/23/23 03/19/23 oral suspension (Milk of Magnesia) spironolactone 25 mg tablet 25 mg PO QAM 01/23/23 03/19/23 diclofenac sodium 1 % topical gel 2 g EXT QID PRN Pain 02/28/23 03/19/23 (Voltaren Arthritis Pain) levothyroxine 88 mcg tablet 88 mcg PO DAILYBB 02/28/23 03/19/23 Previous Rx's Medication Instructions Recorded pen needle, diabetic 32 gauge x #200 ea 05/12/23 5/32" (BD Ultra-Fine Cary Pen Needle) aspirin 81 mg tablet,delayed 81 mg PO QAM #30 tabs 10/29/22 release docusate sodium 100 mg capsule 100 mg PO BID #60 caps 10/29/22 multivitamin with folic acid 400 1 tab PO QAM #30 tabs 12/28/22 mcg tablet (Daily-Seferino (with folic acid)) magnesium oxide 400 mg (241.3 mg 400 mg PO BID 90 days #180 tabs 01/22/23 magnesium) tablet sucralfate 100 mg/mL oral 1 g (10 mL) PO AC #1,000 mL 01/31/23 suspension ascorbic acid (vitamin C) 500 mg 1,000 mg (2 x 500 mg) PO QAM #60 02/14/23 tablet (Vitamin C) tabs folic acid 1 mg tablet 1 mg PO QAM #30 tabs 02/14/23 gabapentin 100 mg capsule 200 mg (2 x 100 mg) PO BID #60 caps 02/14/23 ticagrelor 90 mg tablet (Brilinta) 90 mg PO BID #60 tabs 02/14/23 Results & Data (ED) Vital Signs Vital Signs - 24 hr 03/19/23 20:33 03/19/23 20:41 03/19/23 20:58 Temperature 36.4 C L Temperature Source Temporal Artery Scan Pulse Rate 66 Pulse Rate [Left Finger] Pulse Rate from SpO2 Sensor Pulse Rhythm [Left Finger] Pulse Strength [Left Finger] Respiratory Rate 18 Respiratory Effort / Characteristics Non-Labored Spontaneous Non-Labored Respiratory Depth Normal Normal Respiratory Pattern Regular Blood Pressure 121/78 Blood Pressure [Left Arm] Blood Pressure Mean 92 Blood Pressure Mean [Left Arm] Blood Pressure Position Sitting Blood Pressure Position [Left Arm] Pulse Oximetry 99 Oxygen Delivery Method Room Air Room Air Sepsis Recent Fever Within 48 Hours No Sepsis New/Unexplained Change in Mental Status N/A Sepsis Action Taken by Nursing No Action Required 03/19/23 22:36 03/19/23 22:37 03/19/23 22:40 Temperature Temperature Source Pulse Rate 64 Pulse Rate [Left Finger] 58 L Pulse Rate from SpO2 Sensor 65 Pulse Rhythm [Left Finger] Regular Pulse Strength [Left Finger] Normal Respiratory Rate 16 20 Respiratory Effort / Characteristics Non-Labored Respiratory Depth Normal Respiratory Pattern Regular Blood Pressure Blood Pressure [Left Arm] 77/52 L Blood Pressure Mean Blood Pressure Mean [Left Arm] 60 Blood Pressure Position Blood Pressure Position [Left Arm] Sitting Pulse Oximetry 97 Oxygen Delivery Method Room Air Room Air Sepsis Recent Fever Within 48 Hours Sepsis New/Unexplained Change in Mental Status Sepsis Action Taken by Nursing 03/19/23 22:41 03/19/23 22:41 03/19/23 22:41 Temperature Temperature Source Pulse Rate 60 64 Pulse Rate [Left Finger] Pulse Rate from SpO2 Sensor 59 L Pulse Rhythm [Left Finger] Pulse Strength [Left Finger] Respiratory Rate 21 Respiratory Effort / Characteristics Respiratory Depth Respiratory Pattern Blood Pressure 86/62 L Blood Pressure [Left Arm] Blood Pressure Mean 74 Blood Pressure Mean [Left Arm] Blood Pressure Position Blood Pressure Position [Left Arm] Pulse Oximetry Oxygen Delivery Method Sepsis Recent Fever Within 48 Hours Sepsis New/Unexplained Change in Mental Status Sepsis Action Taken by Nursing 03/19/23 22:50 03/19/23 23:00 03/19/23 23:02 Temperature Temperature Source Pulse Rate 61 58 L 61 Pulse Rate [Left Finger] Pulse Rate from SpO2 Sensor 61 58 L 61 Pulse Rhythm [Left Finger] Pulse Strength [Left Finger] Respiratory Rate 23 20 20 Respiratory Effort / Characteristics Respiratory Depth Respiratory Pattern Blood Pressure Blood Pressure [Left Arm] Blood Pressure Mean Blood Pressure Mean [Left Arm] Blood Pressure Position Blood Pressure Position [Left Arm] Pulse Oximetry 97 98 98 Oxygen Delivery Method Sepsis Recent Fever Within 48 Hours Sepsis New/Unexplained Change in Mental Status Sepsis Action Taken by Nursing 03/19/23 23:02 03/19/23 23:10 03/19/23 23:20 Temperature Temperature Source Pulse Rate 60 59 L Pulse Rate [Left Finger] Pulse Rate from SpO2 Sensor 60 61 Pulse Rhythm [Left Finger] Pulse Strength [Left Finger] Respiratory Rate 21 15 Respiratory Effort / Characteristics Respiratory Depth Respiratory Pattern Blood Pressure 95/56 L Blood Pressure [Left Arm] Blood Pressure Mean 71 Blood Pressure Mean [Left Arm] Blood Pressure Position Blood Pressure Position [Left Arm] Pulse Oximetry 98 97 Oxygen Delivery Method Sepsis Recent Fever Within 48 Hours Sepsis New/Unexplained Change in Mental Status Sepsis Action Taken by Nursing 03/19/23 23:30 03/19/23 23:31 03/19/23 23:40 Temperature Temperature Source Pulse Rate 55 L 55 L 55 L Pulse Rate [Left Finger] Pulse Rate from SpO2 Sensor 55 L 55 L 56 L Pulse Rhythm [Left Finger] Pulse Strength [Left Finger] Respiratory Rate 16 17 17 Respiratory Effort / Characteristics Respiratory Depth Respiratory Pattern Blood Pressure Blood Pressure [Left Arm] Blood Pressure Mean Blood Pressure Mean [Left Arm] Blood Pressure Position Blood Pressure Position [Left Arm] Pulse Oximetry 97 97 96 Oxygen Delivery Method Sepsis Recent Fever Within 48 Hours Sepsis New/Unexplained Change in Mental Status Sepsis Action Taken by Nursing 03/19/23 23:50 03/20/23 00:00 03/20/23 00:01 Temperature Temperature Source Pulse Rate 56 L 57 L 56 L Pulse Rate [Left Finger] Pulse Rate from SpO2 Sensor 56 L 65 56 L Pulse Rhythm [Left Finger] Pulse Strength [Left Finger] Respiratory Rate 15 19 18 Respiratory Effort / Characteristics Respiratory Depth Respiratory Pattern Blood Pressure Blood Pressure [Left Arm] Blood Pressure Mean Blood Pressure Mean [Left Arm] Blood Pressure Position Blood Pressure Position [Left Arm] Pulse Oximetry 96 95 98 Oxygen Delivery Method Sepsis Recent Fever Within 48 Hours Sepsis New/Unexplained Change in Mental Status Sepsis Action Taken by Nursing 03/20/23 00:01 Temperature Temperature Source Pulse Rate Pulse Rate [Left Finger] Pulse Rate from SpO2 Sensor Pulse Rhythm [Left Finger] Pulse Strength [Left Finger] Respiratory Rate Respiratory Effort / Characteristics Respiratory Depth Respiratory Pattern Blood Pressure 91/51 L Blood Pressure [Left Arm] Blood Pressure Mean 61 Blood Pressure Mean [Left Arm] Blood Pressure Position Blood Pressure Position [Left Arm] Pulse Oximetry Oxygen Delivery Method Sepsis Recent Fever Within 48 Hours Sepsis New/Unexplained Change in Mental Status Sepsis Action Taken by Nursing Laboratory Data 03/19/23 20:55 03/19/23 20:55 Lab Results 03/19/23 03/19/23 Range/Units 20:37 20:55 WBC 14.70 H (4.8-10.8) K/ul RBC 4.49 (4.20-5.40) M/uL Hgb 13.2 (12.0-16.0) g/dl Hct 36.6 L (37.0-47.0) % MCV 81.5 (80.0-100.0) fL MCH 29.4 (25.0-34.0) pg MCHC 36.1 H (32.0-36.0) g/dL RDW Std Deviation 38.6 (36.4-46.3) fL RDW Coeff of Umair 13.2 (11.5-14.5) % Plt Count 337 (130-400) K/uL MPV 11.4 (9.4-12.4) fL Immature Gran % (Auto) 0.3 % Neut % (Auto) 72.3 % Lymph % (Auto) 21.5 % [place] % (Auto) 4.1 % Eos % (Auto) 1.5 % Baso % (Auto) 0.3 % Neut # (Auto) 10.62 H (1.40-6.50) K/uL Lymph # (Auto) 3.16 (1.20-3.40) K/uL [place] # (Auto) 0.61 H (0.11-0.59) K/uL Eos # (Auto) 0.22 (0.00-0.50) K/uL Baso # (Auto) 0.04 (0.00-0.20) K/uL Immature Gran # (Auto) 0.05 (0.01-0.20) K/uL PT 10.1 (9.0-12.0) Seconds INR 0.9 (0.9-1.1) APTT < 20 L (21-31) Seconds PTT Ratio 0.7 Sodium 133 L (136-145) mmol/L Potassium 2.6 L (3.5-5.1) mmol/L Chloride 100 (98-107) mmol/L Carbon Dioxide 21 (21-32) mmol/L Anion Gap 12 H (3-11) BUN 6 (6-23) mg/dl Creatinine 0.99 (0.6-1.2) mg/dl Est Cr Clr Drug Dosing 53.1 ml/min Est GFR ( Amer) 70.3 ml/min Est GFR (Non-Af Amer) 60.6 ml/min BUN/Creatinine Ratio 6.1 L (10-20) Glucose 398 H* (70-99(Fasting)) mg/dl POC Glucose 411 H* (70-99) mg/dl Calcium 8.7 (8.6-10.3) mg/dl Magnesium 1.5 L (1.7-2.4) mg/dl Total Bilirubin 0.5 (0.2-1.0) mg/dl AST 14 (13-39) U/L ALT 9 (7-52) U/L Alkaline Phosphatase 121 H (34-104) U/L Troponin I High Sens 6.0 (0-14) pg/ml Total Protein 6.7 (6.0-8.3) gm/dl Albumin 3.4 (3.4-5.0) gm/dl Globulin 3.3 (2.5-4.0) gm/dl Albumin/Globulin Ratio 1.0 (0.9-2) Adenovirus (PCR) Not Detected (NotDetected) B. pertussis DNA (PCR) Not Detected (NotDetected) B.parapertussis DNA PCR Not Detected (NotDetected) C. pneumoniae DNA (PCR) Not Detected (NotDetected) Coronavirus OC43 (PCR) Not Detected (NotDetected) Coronavirus HKU1 (PCR) Not Detected (NotDetected) Coronavirus 229E (PCR) Not Detected (NotDetected) SARS-CoV-2 (PCR) Not Detected (NotDetected) Coronavirus NL63 (PCR) Not Detected (NotDetected) Human Metapneumovir PCR Not Detected (NotDetected) Influenza Type A (PCR) Not Detected (NotDetected) Influenza Type B (PCR) Not Detected (NotDetected) M. pneumoniae (PCR) Not Detected (NotDetected) Parainfluenza 1 (PCR) Not Detected (NotDetected) Parainfluenza 2 (PCR) Not Detected (NotDetected) Parainfluenza 3 (PCR) Not Detected (NotDetected) Parainfluenza 4 (PCR) Not Detected (NotDetected) RSV (PCR) Not Detected (NotDetected) Entero/Rhino (PCR) Not Detected (NotDetected) Administered Medications Sodium Chloride (Nss) 2,000 mls @ 999 mls/hr IV .Q2H1M ONE Stop: 03/20/23 00:52 Last Admin: 03/19/23 23:13 Dose: 999 mls/hr Documented By: EMMY Potassium Chloride (K Esa / Wtr) 10 meq in 100 mls @ 100 mls/hr IV Q1H TONI Stop: 03/20/23 01:59 Last Admin: 03/20/23 00:12 Dose: 100 mls/hr Documented By: Infusion: 03/20/23 00:12 Dose: Infused Documented By: Admin: 01/31/24 23:13 Dose: 100 mls/hr Documented By: EMMY Magnesium Sulfate/Dextrose (Magnesium Sulfate / D5w) 1 gm in 100 mls @ 100 mls/hr IV NOW STA Stop: 03/20/23 00:30 Last Admin: 03/20/23 00:02 Dose: 100 mls/hr Documented By: EMMY Discharge Plan Visit Data Chief Complaint: Cardiac Assessment Stated Complaint: SOB, CHEST PAIN ED Provider: Karina Denise Discharge Problem: Chest pain, Hypomagnesemia, Hyperglycemia, Acute hypokalemia, Nausea & vomiting, Acute dehydration Forms Stand Alone Forms: [facility] [employer] Prescriptions Prescriptions: No Action (DME) pen needle, diabetic [BD Ultra-Fine Cary Pen Needle] 32 gauge x 5/32" needle See Dose Instructions .ROUTE .MEDSUPPLY Qty: 200 11RF Dose Instruction: As directed Rx Instructions: use 2 times daily or as directed by physician to monitor blood sugar magnesium oxide 400 mg (241.3 mg magnesium) tablet 400 mg PO BID 90 Days Qty: 180 3RF ascorbic acid (vitamin C) [Vitamin C] 500 mg tablet 1,000 mg PO QAM Qty: 60 0RF folic acid 1 mg tablet 1 mg PO QAM Qty: 30 0RF gabapentin 100 mg capsule 200 mg PO BID Qty: 60 0RF Brilinta 90 mg tablet 90 mg PO BID Qty: 60 0RF (DME) blood-glucose meter [Prodigy Autocode Meter] Kit See Rx Instructions .Route Rx Instructions: As directed aspirin 81 mg Tablet,Delayed Release (Dr/Ec) 81 mg PO QAM Qty: 30 0RF Rx Instructions: Over the counter docusate sodium 100 mg Capsule 100 mg PO BID Qty: 60 0RF Rx Instructions: Over the counter pantoprazole 40 mg tablet,delayed release (DR/EC) 40 mg PO QAM Rx Instructions: TAKE ONE TABLET BY MOUTH ONCE DAILY multivitamin with folic acid [Daily-Seferino (with folic acid)] 400 mcg Tablet 1 tab PO QAM Qty: 30 0RF acetaminophen [Pharbetol] 500 mg Tablet 1,000 mg PO Q8H PRN (Reason: Pain) magnesium hydroxide [Milk of Magnesia] 400 mg/5 mL Suspension 30 ml PO DAILY PRN (Reason: Constipation) Humulin R U-500 (Conc) Kwikpen 500 unit/mL (3 mL) insulin pen 4 unit SUBCUT DIRECTED Rx Instructions: 4 UNITS BSG >200. atorvastatin 80 mg tablet 80 mg PO HS insulin glargine [Lantus U-100 Insulin] 100 unit/mL solution 10 unit SC HS spironolactone 25 mg tablet 25 mg PO QAM ergocalciferol (vitamin D2) 1,250 mcg (50,000 unit) capsule 50,000 unit PO WK Rx Instructions: MONDAYS calcium carbonate-vitamin D3 [Os-Michael 500 + D3] 500 mg-15 mcg (600 unit) tablet 2 tab PO BID Rx Instructions: need new script sucralfate 100 mg/mL Suspension 1 g PO AC Qty: 1000 0RF diclofenac sodium [Voltaren Arthritis Pain] 1 % gel 2 g EXT QID PRN (Reason: Pain) levothyroxine 88 mcg tablet 88 mcg PO DAILYBB Referrals Referrals: Jc Zaman DO [Primary Care Provider] -
[2023-03-19 23:30] LABS: Magnesium 1.5 mg/dl (1.7-2.4)
[2023-03-20] MEDS: MAGNESIUM SULFATE / D5W 1 GM/100 ML BAG IV STA (00:02)
--- NOTE | 2023-03-20 00:17 | History & Physical Report ---
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 Nausea, Vomiting, Diarrhea | Uncontrolled T2DM -Patient with multiple presentations for NVD w/ abdominal pain. Currently patient has same symptoms + dehydration. Mild leukocytosis, but suspect some hemoconcentration -Working diagnosis on last admission was gastroparesis vs. chronic constipation but gastric emptying study was completed (03/05/23) which was normal -Patient states she took Miralax as prescribed after her last discharge, yet symptoms still returned after last admission -Could consider cyclic vomiting syndrome in differential, no known prior use of cannabis -01/24/23 A1c 10.2 -Tylenol for pain PRN, Compazine PRN for nausea (should have lesser impact on QT prolongation -Continue SSI/10u Lantus BID, adjust basal/bolus regimen PRN. In setting of K of 2.6 on arrival, did not give any insulin in ED. Plan to resume daytime basal dosing of insulin. Hypokalemia | Hypomagnesemia -Ongoing history of hypokalemia and hypomagnesemia. K of 2.6, Mag 1.5 in ED -Hx of VTach/Torsades 2/2 severe electrolyte anomalies -Received repletion of potassium, magnesium in ED. Ordered an additional 60mEq PO. -Monitor daily BMP, magnesium levels Chest Pain -Onset of pain ~2 days, troponin negative on arrival -Suspect musculoskeletal as etiology -Will monitor on telemetry considering her cardiac history and prior torsades/current electrolyte abnormalities PND | Nasal Drainage -Respiratory biofire negative -CXR without evidence of acute process per my interpretation -Will start Flonase for PND Hx of CHF -Hypovolemic on presentation secondary to vomiting/diarrhea, now s/p 2L bolus in ER (+ additional ~400mL from IV K and Mag) -12/2022 Echo w/ EF 60-65% -Euvolemic on exam Hypothyroidism -Continue home levothyroxine CAD, -Continue statin, ASA, ticagrelor, gabapentin Diet: Carb consistent DVT Prophylaxis: SCDs Code status: would want CPR/Shock/meds if heart stopped, no intubation. 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 Patient notes that for two days she has had ongoing symptoms of chest pain (radiating to her left shoulder) which comes and goes as well as nausea/vomiting/diarrhea. She states that after her last admission, she tried to make dietary changes (i.e. was eating more salads) but this seemed to make her symptoms worse. She also notes some nasal congestion and PND, some increased shortness of breath noted when laying flat. States that her blood sugar has also been high lately. ED Course: -2L NSS bolus -Potassium, magnesium repletion -CXR Allergies Allergy/AdvReac Type Severity Reaction Status Date / Time dulaglutide [From Trulicity] AdvReac Intermediate stomach Verified 03/19/23 23:08 pain albiglutide [From Tanzeum] AdvReac Unknown CAN'T Verified 03/19/23 23:08 REMEMBER Home Medications Medication Instructions Recorded Confirmed Type blood-glucose meter ([employer] 10/15/21 02/28/23 History Autocode Meter kit) pen needle, diabetic 32 gauge x #200 ea 06/28/22 02/28/23 Rx 5/32" (BD Ultra-Fine Cary Pen Needle) aspirin 81 mg tablet,delayed 81 mg PO QAM #30 tabs 10/29/22 03/19/23 Rx release docusate sodium 100 mg capsule 100 mg PO BID #60 caps 10/29/22 03/19/23 Rx pantoprazole 40 mg tablet,delayed 40 mg PO QAM 12/19/22 03/19/23 History release multivitamin with folic acid 400 1 tab PO QAM #30 tabs 11/11/23 01/31/24 Rx mcg tablet (Daily-Seferino (with folic acid)) magnesium oxide 400 mg (241.3 mg 400 mg PO BID 90 days #180 tabs 01/22/23 03/19/23 Rx magnesium) tablet acetaminophen 500 mg tablet 1,000 mg PO Q8H PRN Pain 01/23/23 03/19/23 History (Pharbetol) atorvastatin 80 mg tablet 80 mg PO HS 01/23/23 03/19/23 History calcium carbonate 500 mg-vitamin 2 tab PO BID 01/23/23 03/19/23 History D3 15 mcg (600 unit) tablet (Os-Michael 500 + D3) ergocalciferol (vitamin D2) 1,250 50,000 unit PO WK 01/23/23 03/19/23 History mcg (50,000 unit) capsule insulin glargine 100 unit/mL 10 unit SC HS 01/23/23 03/19/23 History subcutaneous solution (Lantus U-100 Insulin) insulin regular hum U-500 conc 500 4 unit subcut DIRECTED 01/23/23 03/19/23 History unit/mL(3 mL) subcut pen (Humulin R U-500 (Conc) Insulin Kwikpen) magnesium hydroxide 400 mg/5 mL 30 ml PO DAILY PRN Constipation 01/23/23 03/19/23 History oral suspension (Milk of Magnesia) spironolactone 25 mg tablet 25 mg PO QAM 01/23/23 03/19/23 History sucralfate 100 mg/mL oral 1 g (10 mL) PO AC #1,000 mL 01/31/23 03/19/23 Rx suspension ascorbic acid (vitamin C) 500 mg 1,000 mg (2 x 500 mg) PO QAM #60 02/14/23 03/19/23 Rx tablet (Vitamin C) tabs folic acid 1 mg tablet 1 mg PO QAM #30 tabs 02/14/23 03/19/23 Rx gabapentin 100 mg capsule 200 mg (2 x 100 mg) PO BID #60 caps 02/14/23 03/19/23 Rx ticagrelor 90 mg tablet (Brilinta) 90 mg PO BID #60 tabs 02/14/23 03/19/23 Rx diclofenac sodium 1 % topical gel 2 g EXT QID PRN Pain 02/28/23 03/19/23 History (Voltaren Arthritis Pain) levothyroxine 88 mcg tablet 88 mcg PO DAILYBB 02/28/23 03/19/23 History Past Med/Surg History Medical History Chronic constipation Diabetes mellitus GERD (gastroesophageal reflux disease) Hyponatremia Vitamin D deficiency Diabetes mellitus type 2 in obese Acute on chronic combined systolic and diastolic CHF (congestive heart failure) Bradycardia with 41-50 beats per minute Hypokalemia Hypomagnesemia Accelerated hypertension Albuminuria Diabetic nephropathy associated with type 2 diabetes mellitus Depression Osteoarthritis Chronic headaches CAD (coronary artery disease) No remaining occlusive disease after 2 LAD drug eluting stents 10/22/20. Follows with Dr. Harris NSTEMI (non-ST elevated myocardial infarction) 10/22/2020 s/p 2 CHANTAL Vulvitis Dyslipidemia Tobacco abuse Hypertension Hypothyroidism Obesity Anxiety Surgical History History of cardiac catheterization 10/22/2020 Dominant: Right Left Main (% Stenosis): Normal LAD (% Stenosis): Proximal (99) and Mid (75) Circumflex (% Stenosis): Normal (luminal irregularities) RCA (% Stenosis): Normal (Luminal irregularities) 2 CHANTAL to LAD S/P coronary artery stent placement 2 CHANTAL to LAD 10/22/2020 History of cholecystectomy History of dental surgery History of tonsillectomy Family History Unknown Diabetes Thyroid disorder Father Diabetes Other No family history of adverse response to anesthesia Denies family history of Ovarian cancer Prostate cancer Breast cancer Colorectal cancer Uterine cancer Social History Smoking Status: Current every day smoker Tobacco Type: Cigarettes packs per day: 0.5; Cigarettes Per Day: 10; Second Hand Exposure: No; Do You Dip or Chew Tobacco: No; Hx Alcohol Use: No Hx Substance Use: No Preferred Language: Marshallese Communication Ability: Effective Visual Impairment: No Limitations Ophthalmic Photographer Required: No Beliefs That Will Affect Care: None marital status: Single Current Living Situation: Alone Current Living Situation Comment: lives in trailer current occupational status: disabled How many Children do You have: 0 Feels Safe at Home: Yes Safety Concerns: Feels Safe At This Time Safety Concerns Comment: Gets nervous sometimes because she lives alone, gets shaky from anxiety Diet: regular caffeine: Yes Dental Care, Regularly: No Physical Activity Frequency: Does not Exercise Seatbelt Use: always Sunscreen Use: No Assistive Devices: Walker Assistive Devices Comment: uses occasionally Review of Systems Review of Systems: As per above Physical Exam Constitutional: comfortable; no acute distress Eyes: + anicteric sclerae; no conjunctival abn ormality ENMT: Ears: no external ear abnormality Nose: no external nose abnormality Mouth: no oral mucosal abnormality Respiratory: normal respiratory effort; no respiratory distress Auscultation: lungs clear to auscultation bilaterally; no crackles and no wheezes Cardiovascular: Rate/Rhythm: regular rate and regular rhythm +1 edema of bilateral lower extremities Gastrointestinal (Abdomen): Abdomen soft, nondistended. Some tenderness to palpation at epigastric region. Musculoskeletal: Moves all limbs independently Skin: no rashes, warm and dry Psychiatric: A+Ox3, euthymic affect Results & Data Results & Data Vital Signs (Past 12 Hours) Vital Signs Temp Pulse Pulse Resp BP BP Pulse Ox 03/20/23 00:10 58 L 19 96 03/20/23 00:01 91/51 L 03/20/23 00:01 56 L 18 98 03/20/23 00:00 57 L 19 95 03/19/23 23:50 56 L 15 96 03/19/23 23:40 55 L 17 96 03/19/23 23:31 55 L 17 97 03/19/23 23:30 55 L 16 97 03/19/23 23:20 59 L 15 97 03/19/23 23:10 60 21 98 03/19/23 23:02 95/56 L 03/19/23 23:02 61 20 98 03/19/23 23:00 58 L 20 98 03/19/23 22:50 61 23 97 03/19/23 22:41 86/62 L 03/19/23 22:41 64 21 03/19/23 22:41 60 03/19/23 22:40 64 20 03/19/23 22:37 03/19/23 22:36 58 L 16 77/52 L 97 03/19/23 20:41 03/19/23 20:33 36.4 C L 66 18 121/78 99 O2 Del Method 03/20/23 00:10 03/20/23 00:01 03/20/23 00:01 03/20/23 00:00 03/19/23 23:50 03/19/23 23:40 03/19/23 23:31 03/19/23 23:30 03/19/23 23:20 03/19/23 23:10 03/19/23 23:02 03/19/23 23:02 03/19/23 23:00 03/19/23 22:50 03/19/23 22:41 03/19/23 22:41 03/19/23 22:41 03/19/23 22:40 03/19/23 22:37 Room Air 03/19/23 22:36 Room Air 03/19/23 20:41 Room Air 03/19/23 20:33 Room Air Supervising Physician Co-Signing Physician Notes Patient seen and examined, chart reviewed, case discussed with Dr. Bella and I agree with the assessment and plan as above. In brief, patient is a 62yo fe male with multiple hospitalizations for nausea and vomiting wtih dehydration and electrolyte abnormality presenting with the same. Patient with chest pain ongoing for the last two days. On exam patient is afebrile, HD stable, NAD She is currently having K infused and having considerable pain Skin - intact, no rashes HEENT - dry mucus membranes, neck supple Heart - +S1/S2, regular Lungs - CTA Abd- mildly tender in lower abdomen without rebound/guarding/peritonitis Ext - warm, well perfused Labs and images reviewed Qp=828, K=2.6, Mg=1.5 Assessment/Plan Nausea/vomiting - recurrent, dehydration and electrolyte abnormality -Continue IVF and electrolyte repletion -?cyclic vomiting. workup thus far does not strongly support gastroparesis or severe constipation -blood sugar control -remainder as above Resident Activity Tracking Resident Involvement: Resident Care Provided Care Provided: Adult Hospital Medicine
[2023-03-20] MEDS: ACETAMINOPHEN 1,000 MG/100 ML VIAL IV STA (00:43)
[2023-03-20] MEDS: POTASSIUM CHLORIDE CRTAB 20 MEQ TABCR PO STA (02:16)
[2023-03-20] MEDS ORDERED: DEXTROSE 50% 50 ML SYRINGE IV PRN (02:52)
[2023-03-20] MEDS ORDERED: GLUCOSE 10 TAB/TUBE PO PRN (02:52)
[2023-03-20] MEDS ORDERED: POLYETHYLENE (MIRALAX) 17 GM PACK PO PRN (02:52)
[2023-03-20] MEDS ORDERED: GLUCAGON FOR INJ 1 MG VIAL SQ PRN (02:52)
[2023-03-20] MEDS ORDERED: GLUCOSE 40% GEL 15 GM TUBE PO PRN (02:52)
[2023-03-20] MEDS ORDERED: CARBOHYDRATES FOR HYPOGLYCEMIA PO PRN (02:52)
[2023-03-20] MEDS: LEVOTHYROXINE SODIUM 88 MCG TABLET PO SCH (06:10)
--- NOTE | 2023-03-20 06:35 | Hospitalist Progress Note ---
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 Nausea, Vomiting, Diarrhea | Uncontrolled T2DM -Patient with multiple presentations for NVD w/ abdominal pain. Currently patient has same symptoms + dehydration. Mild leukocytosis, but suspect some hemoconcentration -Working diagnosis on last admission was gastroparesis vs. chronic constipation but gastric emptying study was completed (03/05/23) which was normal -Patient states she did not take Miralax after last admission and KUB with moderate stool burden, so constipation likely contributing. Miralax TID -01/24/23 A1c 10.2 -Tylenol for pain PRN, Compazine PRN for nausea (should have lesser impact on QT prolongation) -Continue SSI/10u Lantus BID, adjust basal/bolus regimen tomorrow based on insulin requirements in the next 24 hours - GERD/PUD could also be contributing maximize regimen with PPI BID, famotidine, Carafate - outpatient f/u for coloscopy 04/24/23 - will check US abdomen to r/u retained stone, history of cholecystectomy Hypokalemia | Hypomagnesemia -Ongoing history of hypokalemia and hypomagnesemia. K of 2.6, Mag 1.5 in ED -Hx of VTach/Torsades 2/2 severe electrolyte anomalies -Received repletion of potassium, magnesium in ED. Ordered an additional 60mEq PO. -Monitor daily BMP, magnesium levels Chest Pain -Onset of pain ~2 days, troponin negative on arrival -Suspect musculoskeletal as etiology -Will monitor on telemetry considering her cardiac history and prior torsades/current electrolyte abnormalities PND | Nasal Drainage -Respiratory biofire negative -CXR without evidence of acute process per my interpretation -Will start Flonase for PND Hx of CHF -Hypovolemic on presentation secondary to vomiting/diarrhea, now s/p 2L bolus in ER (+ additional ~400mL from IV K and Mag) -12/2022 Echo w/ EF 60-65% -Euvolemic on exam Hypothyroidism -Continue home levothyroxine CAD, -Continue statin, ASA, ticagrelor, gabapentin - Not on beta elizabeth or ELHAM/ARB but with review of vitals trend likely would not tolerate Diet: Carb consistent DVT Prophylaxis: SCDs Code status: would want CPR/Shock/meds if heart stopped, no intubation. Dispo: Med/Tele Admission and Anticipated Discharge Date Admission Date: March 20, 2023 Supervising Physician Co-Signing Physician Notes I personally examined the patient and verified all real points of history and exam, discussed case, and agree with decision making with Dr Carrera Predominantly epigastric and right upper quadrant "feeling like it is in a knot"that is the main problem right now. Having bowel movements about every other day, had not started MiraLAX at home. Vitals noted, in general she is awake and alert pleasant no distress. HEENT normocephalic atraumatic mucous membranes moist. Breathing unlabored no accessory muscle use good effort. Skin shows no rashes no pallor or icterus. Abdomen shows epigastric and right upper quadrant fairly significant tenderness without guarding rebound or rigidity, the rest of her abdomen is mildly tender at worst. Recurrent nausea and vomitingmore acute and recurrent than acute on chronicprobably multifactorial, leading to what seems to be likely moderate malnutrition from ongoing weight loss and poor p.o. intake (predominantly calorie more than protein)etiology is probably multifactorialI do certainly wonder a little about peptic ulcer disease, and while no EGD is planned by gastroenterology, I will give a diagnostic/therapeutic trial to maximal acid suppression for a day or 2 to see if it helpsif it does, that may help in suspicion of peptic ulcer disease as part of the culprit. Dr. Carrera wonders some about a retained stone in her bile ducts given the location of her pain and postprandial especially after greasy foodscertainly not unreasonableand she is ordered a right upper quadrant ultrasound. I am more suspicious that her trigger points may be playing a bigger role that I was suspecting the last timeand if we do not see significant findings on ultrasound or significant improvement of her pain into tomorrowwill do trigger point injections. Constipation is likely still playing a roleshe is moving her bowels more than before, but still basically only every other daygiven how profoundly constipated she was at last admission, coupled with the fact that she has not b een utilizing MiraLAX at home ("I just did not start it yet") we will restart a bowel regimen with 51 g of MiraLAX daily. Certainly her loneliness plays a major role as well. As far as uncontrolled diabetesadjust insulin management. Subjective Pt seen at bedside this morning. Notes that she was having left sided chest pain with radiation to arm that has since resolved. Notes diffuse abdominal pain, worse with certain foods (greasy/spicy). Was not taking miralax at home and blood sugars at home have been elevated. Review of Systems Review of Systems: As per above Physical Exam Physical Exam: Constitutional: well-appearing, no acute distress HEENT: NCAT, no conjunctival injection CV: regular rhythm, no murmur appreciated, extremities well-perfused, no LE edema Resp: CTABL, no wheezes/rales/rhonchi appreciated, no increased work of breathing GI: soft, nondistended, mild midepigastric and RUQ tenderness, BS normoactive MSK: no gross deformities appreciated Skin: warm, dry, no rash appreciated Neuro: alert, oriented, no focal neurologic deficit appreciated Results & Data Results & Data Vital Signs (Past 12 Hours) Vital Signs Temp Pulse Pulse Resp BP BP Pulse Ox 03/20/23 03:00 36.2 C L 59 L 18 111/72 98 03/20/23 02:31 107/56 L 03/20/23 02:31 56 L 19 03/20/23 02:30 55 L 14 03/20/23 02:20 66 17 03/20/23 02:10 59 L 03/20/23 02:00 100/57 L 03/20/23 02:00 63 21 03/20/23 01:50 59 L 12 03/20/23 01:40 58 L 21 03/20/23 01:31 85/48 L 03/20/23 01:31 55 L 16 03/20/23 01:30 57 L 16 03/20/23 01:20 54 L 19 03/20/23 01:10 57 L 17 03/20/23 01:02 96/51 L 03/20/23 01:02 60 20 03/20/23 01:00 57 L 24 03/20/23 00:50 63 20 03/20/23 00:40 63 18 95 03/20/23 00:30 60 17 94 03/20/23 00:30 93/57 L 03/20/23 00:20 59 L 17 95 03/20/23 00:10 58 L 19 96 03/20/23 00:01 91/51 L 03/20/23 00:01 56 L 18 98 03/20/23 00:00 57 L 19 95 03/19/23 23:50 56 L 15 96 03/19/23 23:40 55 L 17 96 03/19/23 23:31 55 L 17 97 03/19/23 23:30 55 L 16 97 03/19/23 23:20 59 L 15 97 03/19/23 23:10 60 21 98 03/19/23 23:02 95/56 L 03/19/23 23:02 61 20 98 03/19/23 23:00 58 L 20 98 03/19/23 22:50 61 23 97 03/19/23 22:41 86/62 L 03/19/23 22:41 64 21 03/19/23 22:41 60 03/19/23 22:40 64 20 03/19/23 22:37 03/19/23 22:36 58 L 16 77/52 L 97 03/19/23 20:41 03/19/23 20:33 36.4 C L 66 18 121/78 99 O2 Del Method 03/20/23 03:00 Room Air 03/20/23 02:31 03/20/23 02:31 03/20/23 02:30 03/20/23 02:20 03/20/23 02:10 03/20/23 02:00 03/20/23 02:00 03/20/23 01:50 03/20/23 01:40 03/20/23 01:31 03/20/23 01:31 03/20/23 01:30 03/20/23 01:20 03/20/23 01:10 03/20/23 01:02 03/20/23 01:02 03/20/23 01:00 03/20/23 00:50 03/20/23 00:40 03/20/23 00:30 03/20/23 00:30 03/20/23 00:20 03/20/23 00:10 03/20/23 00:01 03/20/23 00:01 03/20/23 00:00 03/19/23 23:50 03/19/23 23:40 03/19/23 23:31 03/19/23 23:30 03/19/23 23:20 03/19/23 23:10 03/19/23 23:02 03/19/23 23:02 03/19/23 23:00 03/19/23 22:50 03/19/23 22:41 03/19/23 22:41 03/19/23 22:41 03/19/23 22:40 03/19/23 22:37 Room Air 03/19/23 22:36 Room Air 03/19/23 20:41 Room Air 03/19/23 20:33 Room Air Resident Activity Tracking Resident Involvement: Resident Care Provided Care Provided: Adult Hospital Medicine
--- NOTE | 2023-03-20 07:07 | XRay Report ---
XR chest 1V not portable CLINICAL HISTORY: Chest pain, nonspecific TECHNIQUE: Single frontal radiograph of the chest was obtained. Comparison: Comparison is made to chest radiograph 01/23/2023 FINDINGS: No lines and tubes are seen. The cardiomediastinal silhouette is stable. The lungs are clear. No evid ence of pleural effusion or pneumothorax. IMPRESSION: No acute chest disease. ACT 112: Negative or not required by law. Electronically signed by: Rob Lebron M.D. 03/20/2023 7:06 AM
[2023-03-20 07:28] LABS: Basophils # (auto) 0.04 K/uL (0.00-0.20); Basophils % (auto) 0.4 %; Eosinophils # (auto) 0.56 K/uL (0.00-0.50); Eosinophils % (auto) 5.1 %; Hematocrit (blood only) 34.4 % (37.0-47.0); Hemoglobin 11.4 g/dl (12.0-16.0); Immature Granulocytes # (auto) 0.05 K/uL (0.01-0.20); Immature Granulocytes % (auto) 0.5 %; Lymphocytes # (auto) 3.56 K/uL (1.20-3.40); Lymphocytes % (auto) 32.2 %; Mean Corpuscular Hemoglobin 28.4 pg (25.0-34.0); Mean Corpuscular Hgb Conc 33.1 g/dL (32.0-36.0); Mean Corpuscular Volume 85.6 fL (80.0-100.0); Mean Platelet Volume 11.3 fL (9.4-12.4); Monocytes # (auto) 0.47 K/uL (0.11-0.59); Monocytes % (auto) 4.2 %; Neutrophils # (auto) 6.39 K/uL (1.40-6.50); Neutrophils % (auto) 57.6 %; Platelet Count 276 K/uL (130-400); RDW Coefficient of Variation 13.3 % (11.5-14.5); RDW Standard Deviation 41.4 fL (36.4-46.3); Red Blood Count 4.02 M/uL (4.20-5.40); White Blood Count 11.07 K/ul (4.8-10.8)
[2023-03-20 07:57] LABS: Calcium 8.2 mg/dl (8.6-10.3); Creatinine Clr Calc Pharmacy 53.9 ml/min; Est GFR (African American) 69.4 ml/min; Est GFR (Non-African American) 59.9 ml/min; Magnesium 1.7 mg/dl (1.7-2.4); Potassium 3.5 mmol/L (3.5-5.1)
[2023-03-20] MEDS: SUCRALFATE 1 GM/10 ML UDC PO SCH (08:27)
[2023-03-20] MEDS: TICAGRELOR 90 MG TAB PO SCH (08:27)
[2023-03-20] MEDS: NICOTINE 14 MG/24 HR PATCH TD SCH (08:28)
[2023-03-20] MEDS: FLUTICASONE PROPIONATE NA SPR 16 GM BTL SCH (08:28)
[2023-03-20] MEDS: PANTOprazole 40 MG TAB PO SCH ×2 (08:28→20:51)
[2023-03-20] MEDS: ASPIRIN 81 MG ECTAB PO SCH (08:28)
[2023-03-20] MEDS: INSULIN ASPART PER UNIT CHARGE SC SCH (08:53)
[2023-03-20] MEDS: GABAPENTIN 100 MG CAP PO SCH (08:54)
[2023-03-20] MEDS: LANTUS PER UNIT CHARGE SQ SCH (09:41)
--- NOTE | 2023-03-20 10:48 | Gastrointestinal Consultation ---
Date of Consultation March 20, 2023 Assessment & Plan (1) Nausea & vomiting: (2) Hyperglycemia: (3) Chronic constipation: Plan Patient with recurrent n/v/constipation in the setting of poorly controlled T2DM. -Abdominal series to exclude any ileus/obstruction. -Recommend outpatient follow up with Endocrinology Diabetes Team to improve blood glucose management. -Further recommendations in regard to bowel regimen pending results of x ray. @1256: Small stool burden noted on x ray. Start MiraLAX 17 g daily in 8 0z liquid. Order placed. -Supportive care per primary team. -Outpatient colonoscopy pending for 04/24/23. Thank you for allowing us to participate in the care of this patient. If you have any questions or concerns, please do not hesitate to contact us. History of Present Illness Reason for Consultation: Dr. Carrera Requesting Physician: Recurrent nausea, vomiting, and constipation Attending Physician: Harry Hinojosa DO History of Present Illness Patient is a 62 year old female with a history of CAD s/p stents, poorly- controlled IDDM2, HTN, hypothyroidism, active tobacco use, OCD, anxiety, and multiple prior admissions for dizziness/vertigo as well as nausea with vomiting readmitted with hyperglycemia and n/v. She reports she has been having significantly elevated blood sugar readings at home and states her current diabetes treatment has not been effective. States stools have been loose and small in caliber but feels she is not emptying her bowels well and has been having intractable nausea with vomiting. Despite this, she did complete her entire breakfast this morning and denies any nausea or vomiting at the time of evaluation. Prior EGD and GES as well as CTAP were unremarkable. Allergies Allergy/AdvReac Type Severity Reaction Status Date / Time dulaglutide [From Trulicity] AdvReac Intermediate stomach Verified 03/19/23 23:08 pain albiglutide [From Tanzeum] AdvReac Unknown CAN'T Verified 03/19/23 23:08 REMEMBER Home Medications Medication Instructions Recorded Confirmed Type blood-glucose meter (Prodigy 10/15/21 02/28/23 History Autocode Meter kit) pen needle, diabetic 32 gauge x #200 ea 06/28/22 02/28/23 Rx 5/32" (BD Ultra-Fine Cary Pen Needle) aspirin 81 mg tablet,delayed 81 mg PO QAM #30 tabs 10/29/22 03/19/23 Rx release docusate sodium 100 mg capsule 100 mg PO BID #60 caps 10/29/22 03/19/23 Rx pantoprazole 40 mg tablet,delayed 40 mg PO QAM 12/19/22 03/19/23 History release multivitamin with folic acid 400 1 tab PO QAM #30 tabs 12/28/22 03/19/23 Rx mcg tablet (Daily-Seferino (with folic acid)) magnesium oxide 400 mg (241.3 mg 400 mg PO BID 90 days #180 tabs 01/22/23 03/19/23 Rx magnesium) tablet acetaminophen 500 mg tablet 1,000 mg PO Q8H PRN Pain 01/23/23 03/19/23 History (Pharbetol) atorvastatin 80 mg tablet 80 mg PO HS 01/23/23 03/19/23 History calcium carbonate 500 mg-vitamin 2 tab PO BID 01/23/23 03/19/23 History D3 15 mcg (600 unit) tablet (Os-Michael 500 + D3) ergocalciferol (vitamin D2) 1,250 50,000 unit PO WK 01/23/23 03/19/23 History mcg (50,000 unit) capsule insulin glargine 100 unit/mL 10 unit SC HS 01/23/23 03/19/23 History subcutaneous solution (Lantus U-100 Insulin) insulin regular hum U-500 conc 500 4 unit subcut DIRECTED 01/23/23 03/19/23 History unit/mL(3 mL) subcut pen (Humulin R U-500 (Conc) Insulin Kwikpen) magnesium hydroxide 400 mg/5 mL 30 ml PO DAILY PRN Constipation 01/23/23 4 History oral suspension (Milk of Magnesia) spironolactone 25 mg tablet 25 mg PO QAM 01/23/23 03/19/23 History sucralfate 100 mg/mL oral 1 g (10 mL) PO AC #1,000 mL 01/31/23 03/19/23 Rx suspension ascorbic acid (vitamin C) 500 mg 1,000 mg (2 x 500 mg) PO QAM #60 02/14/23 03/19/23 Rx tablet (Vitamin C) tabs folic acid 1 mg tablet 1 mg PO QAM #30 tabs 02/14/23 03/19/23 Rx gabapentin 100 mg capsule 200 mg (2 x 100 mg) PO BID #60 caps 02/14/23 03/19/23 Rx ticagrelor 90 mg tablet (Brilinta) 90 mg PO BID #60 tabs 02/14/23 03/19/23 Rx diclofenac sodium 1 % topical gel 2 g EXT QID PRN Pain 02/28/23 03/19/23 History (Voltaren Arthritis Pain) levothyroxine 88 mcg tablet 88 mcg PO DAILYBB 02/28/23 03/19/23 History Patient History Medical History Chronic constipation Diabetes mellitus GERD (gastroesophageal reflux disease) Hyponatremia Vitamin D deficiency Diabetes mellitus type 2 in obese Acute on chronic combined systolic and diastolic CHF (congestive heart failure) Bradycardia with 41-50 beats per minute Hypokalemia Hypomagnesemia Accelerated hypertension Albuminuria Diabetic nephropathy associated with type 2 diabetes mellitus Depression Osteoarthritis Chronic headaches CAD (coronary artery disease) No remaining occlusive disease after 2 LAD drug eluting stents 10/22/20. Follows with Dr. Harris NSTEMI (non-ST elevated myocardial infarction) 10/22/2020 s/p 2 CHANTAL Vulvitis Dyslipidemia Tobacco abuse Hypertension Hypothyroidism Obesity Anxiety Surgical History History of cardiac catheterization 10/22/2020 Dominant: Right Left Main (% Stenosis): Normal LAD (% Stenosis): Proximal (99) and Mid (75) Circumflex (% Stenosis): Normal (luminal irregularities) RCA (% Stenosis): Normal (Luminal irregularities) 2 CHANTAL to LAD S/P coronary artery stent placement 2 CHANTAL to LAD 10/22/2020 History of cholecystectomy History of dental surgery History of tonsillectomy Family History Unknown Diabetes Thyroid disorder Father Diabetes Other No family history of adverse response to anesthesia Denies family history of Ovarian cancer Prostate cancer Breast cancer Colorectal cancer Uterine cancer Social History Smoking Status: Current every day smoker Tobacco Type: Cigarettes packs per day: 0.5; Cigarettes Per Day: 10; Second Hand Exposure: No; Do You Dip or Chew Tobacco: No; Hx Alcohol Use: No Hx Substance Use: No Preferred Language: Luxembourgish Communication Ability: Effective Visual Impairment: No Limitations Viscose Cellar Worker Required: No Beliefs That Will Affect Care: None marital status: Single Current Living Situation: Alone Current Living Situation Comment: lives in trailer current occupational status: disabled How many Children do You have: 0 Feels Safe at Home: Yes Safety Concerns: Feels Safe At This Time Safety Concerns Comment: Gets nervous sometimes because she lives alone, gets shaky from anxiety Diet: regular caffeine: Yes Dental Care, Regularly: No Physical Activity Frequency: Does not Exercise Seatbelt Use: always Sunscreen Use: No Assistive Devices: Walker Assistive Devices Comment: uses occasionally Review of Systems Constitutional: + fatigue Gastrointestinal: as per Subjective / HPI Physical Exam Constitutional: + morbidly obese; no acute distress Neck: normal visual inspection Respiratory: normal respiratory effort, lungs clear to auscultation Cardiovascular: Rate/Rhythm: regular rate and regular rhythm Gastrointestinal (Abdomen): Inspection/Auscultation: normal bowel sounds and + significant pannus Percussion/Palpation: abdomen soft; abdomen nontender, no guarding and abdomen not rigid Psychiatric: A+Ox3, euthymic affect Results & Data Vital Signs (Past 12 Hours) Vital Signs Temp Pulse Pulse Pulse Resp BP BP 03/20/23 08:03 36.6 C 63 16 03/20/23 08:00 03/20/23 07:23 66 03/20/23 03:00 36.2 C L 59 L 18 111/72 03/20/23 02:31 107/56 L 03/20/23 02:31 56 L 19 03/20/23 02:30 55 L 14 03/20/23 02:20 66 17 03/20/23 02:10 59 L 03/20/23 02:00 100/57 L 03/20/23 02:00 63 21 03/20/23 01:50 59 L 12 03/20/23 01:40 58 L 21 03/20/23 01:31 85/48 L 03/20/23 01:31 55 L 16 03/20/23 01:30 57 L 16 03/20/23 01:20 54 L 19 03/20/23 01:10 57 L 17 03/20/23 01:02 96/51 L 03/20/23 01:02 60 20 03/20/23 01:00 57 L 24 03/20/23 00:50 63 20 03/20/23 00:40 63 18 03/20/23 00:30 60 17 03/20/23 00:30 93/57 L 03/20/23 00:20 59 L 17 03/20/23 00:10 58 L 19 03/20/23 00:01 91/51 L 03/20/23 00:01 56 L 18 03/20/23 00:00 57 L 19 03/19/23 23:50 56 L 15 03/19/23 23:40 55 L 17 03/19/23 23:31 55 L 17 03/19/23 23:30 55 L 16 03/19/23 23:20 59 L 15 03/19/23 23:10 60 21 03/19/23 23:02 95/56 L 03/19/23 23:02 61 20 03/19/23 23:00 58 L 20 03/19/23 22:50 61 23 03/19/23 22:41 86/62 L 03/19/23 22:41 64 21 03/19/23 22:41 60 03/19/23 22:40 64 20 03/19/23 22:37 03/19/23 22:36 58 L 16 77/52 L BP Pulse Ox O2 Del Method 03/20/23 08:03 99/63 L 99 Room Air 03/20/23 08:00 Room Air 03/20/23 07:23 03/20/23 03:00 98 Room Air 03/20/23 02:31 03/20/23 02:31 03/20/23 02:30 03/20/23 02:20 03/20/23 02:10 03/20/23 02:00 03/20/23 02:00 03/20/23 01:50 03/20/23 01:40 03/20/23 01:31 03/20/23 01:31 03/20/23 01:30 03/20/23 01:20 03/20/23 01:10 03/20/23 01:02 03/20/23 01:02 03/20/23 01:00 03/20/23 00:50 03/20/23 00:40 95 03/20/23 00:30 94 03/20/23 00:30 03/20/23 00:20 95 03/20/23 00:10 96 03/20/23 00:01 03/20/23 00:01 98 03/20/23 00:00 95 03/19/23 23:50 96 03/19/23 23:40 96 03/19/23 23:31 97 03/19/23 23:30 97 03/19/23 23:20 97 03/19/23 23:10 98 03/19/23 23:02 03/19/23 23:02 98 03/19/23 23:00 98 03/19/23 22:50 97 03/19/23 22:41 03/19/23 22:41 03/19/23 22:41 03/19/23 22:40 03/19/23 22:37 Room Air 03/19/23 22:36 97 Room Air Diagnostic Findings Laboratory Results WBC 11.07 K/ul (4.8-10.8) H 03/20/23 06:44 RBC 4.02 M/uL (4.20-5.40) L 03/20/23 06:44 Hgb 11.4 g/dl (12.0-16.0) L 03/20/23 06:44 Hct 34.4 % (37.0-47.0) L 03/20/23 06:44 MCV 85.6 fL (80.0-100.0) D 03/20/23 06:44 MCH 28.4 pg (25.0-34.0) 03/20/23 06:44 MCHC 33.1 g/dL (32.0-36.0) 03/20/23 06:44 RDW Std Deviation 41.4 fL (36.4-46.3) 03/20/23 06:44 RDW Coeff of Umair 13.3 % (11.5-14.5) 03/20/23 06:44 Plt Count 276 K/uL (130-400) 03/20/23 06:44 MPV 11.3 fL (9.4-12.4) 03/20/23 06:44 Immature Gran % (Auto) 0.5 % 03/20/23 06:44 Neut % (Auto) 57.6 % 03/20/23 06:44 Lymph % (Auto) 32.2 % 03/20/23 06:44 [place] % (Auto) 4.2 % 03/20/23 06:44 Eos % (Auto) 5.1 % 03/20/23 06:44 Baso % (Auto) 0.4 % 03/20/23 06:44 Neut # (Auto) 6.39 K/uL (1.40-6.50) 03/20/23 06:44 Lymph # (Auto) 3.56 K/uL (1.20-3.40) H 03/20/23 06:44 [place] # (Auto) 0.47 K/uL (0.11-0.59) 03/20/23 06:44 Eos # (Auto) 0.56 K/uL (0.00-0.50) H 03/20/23 06:44 Baso # (Auto) 0.04 K/uL (0.00-0.20) 03/20/23 06:44 Immature Gran # (Auto) 0.05 K/uL (0.01-0.20) 03/20/23 06:44 PT 10.1 Seconds (9.0-12.0) 03/19/23 20:55 INR 0.9 (0.9-1.1) 03/19/23 20:55 APTT < 20 Seconds (21-31) L 03/19/23 20:55 PTT Ratio 0.7 03/19/23 20:55 Sodium 136 mmol/L (136-145) 03/20/23 06:44 Potassium 3.5 mmol/L (3.5-5.1) D 03/20/23 06:44 Chloride 104 mmol/L (98-107) 03/20/23 06:44 Carbon Dioxide 24 mmol/L (21-32) 03/20/23 06:44 Anion Gap 8 (3-11) 03/20/23 06:44 BUN 7 mg/dl (6-23) 03/20/23 06:44 Creatinine 1.00 mg/dl (0.6-1.2) 03/20/23 06:44 Est Cr Clr Drug Dosing 53.9 ml/min 03/20/23 06:44 Est GFR ( Amer) 69.4 ml/min 03/20/23 06:44 Est GFR (Non-Af Amer) 59.9 ml/min 03/20/23 06:44 BUN/Creatinine Ratio 7.0 (10-20) L 03/20/23 06:44 Glucose 334 mg/dl (70-99(Fasting)) H* 03/20/23 06:44 POC Glucose 352 mg/dl (70-99) H* 03/20/23 08:15 Calcium 8.2 mg/dl (8.6-10.3) L 03/20/23 06:44 Magnesium 1.7 mg/dl (1.7-2.4) 03/20/23 06:44 Total Bilirubin 0.5 mg/dl (0.2-1.0) 03/19/23 20:55 AST 14 U/L (13-39) 03/19/23 20:55 ALT 9 U/L (7-52) 03/19/23 20:55 Alkaline Phosphatase 121 U/L (34-104) H 03/19/23 20:55 Troponin I High Sens 6.0 pg/ml (0-14) 03/19/23 20:55 Total Protein 6.7 gm/dl (6.0-8.3) 03/19/23 20:55 Albumin 3.4 gm/dl (3.4-5.0) 03/19/23 20:55 Globulin 3.3 gm/dl (2.5-4.0) 03/19/23 20:55 Albumin/Globulin Ratio 1.0 (0.9-2) 03/19/23 20:55 Adenovirus (PCR) Not Detected (NotDetected) 03/19/23 20:55 B. pertussis DNA (PCR) Not Detected (NotDetected) 03/19/23 20:55 B.parapertussis DNA PCR Not Detected (NotDetected) 03/19/23 20:55 C. pneumoniae DNA (PCR) Not Detected (NotDetected) 03/19/23 20:55 Coronavirus OC43 (PCR) Not Detected (NotDetected) 03/19/23 20:55 Coronavirus HKU1 (PCR) Not Detected (NotDetected) 03/19/23 20:55 Coronavirus 229E (PCR) Not Detected (NotDetected) 03/19/23 20:55 SARS-CoV-2 (PCR) Not Detected (NotDetected) 03/19/23 20:55 Coronavirus NL63 (PCR) Not Detected (NotDetected) 03/19/23 20:55 Human Metapneumovir PCR Not Detected (NotDetected) 03/19/23 20:55 Influenza Type A (PCR) Not Detected (NotDetected) 03/19/23 20:55 Influenza Type B (PCR) Not Detected (NotDetected) 03/19/23 20:55 M. pneumoniae (PCR) Not Detected (NotDetected) 03/19/23 20:55 Parainfluenza 1 (PCR) Not Detected (NotDetected) 03/19/23 20:55 Parainfluenza 2 (PCR) Not Detected (NotDetected) 03/19/23 20:55 Parainfluenza 3 (PCR) Not Detected (NotDetected) 03/19/23 20:55 Parainfluenza 4 (PCR) Not Detected (NotDetected) 03/19/23 20:55 RSV (PCR) Not Detected (NotDetected) 03/19/23 20:55 Entero/Rhino (PCR) Not Detected (NotDetected) 03/19/23 20:55 Impressions Chest X-Ray 03/19/23 20:40 XR chest 1V not portable CLINICAL HISTORY: Chest pain, nonspecific TECHNIQUE: Single frontal radiograph of the chest was obtained. Comparison: Comparison is made to chest radiograph 01/23/2023 FINDINGS: No lines and tubes are seen. The cardiomediastinal silhouette is stable. The lungs are clear. No evidence of pleural effusion or pneumothorax. IMPRESSION: No acute chest disease. ACT 112: Negative or not required by law. Electronically signed by: Rob Lebron M.D. 03/20/2023 7:06 AM PG Care Time/CCT Total # of Minutes Spent Total Time Spent with Patient: Total time spent is greater than 50% in coordination of care (as documented) at patient's floor/unit and/or counseling patient: Coding Level of Care Code 11943 INT INP/OBS CARE 3/75MIN Diagnoses Nausea & vomiting R11.2 Hyperglycemia R73.9 Chronic constipation K59.09
--- NOTE | 2023-03-20 11:44 | Electrocardiogram Report ---
Test Reason : Blood Pressure : / mmHG Vent. Rate : 065 BPM Atrial Rate : 065 BPM P-R Int : 146 ms QRS Dur : 068 ms QT Int : 462 ms P-R-T Axes : 048 022 054 degrees QTc Int : 480 ms Normal sinus rhythm Low voltage QRS Nonspecific ST and T wave abnormality Abnormal ECG When compared with ECG of 28-FEB-2023 20:18, T wave inversion no longer evident in Anterior leads Nonspecific T wave abnormality, worse in Lateral leads Confirmed by King Paul ([id number]) on 03/20/2023 11:43:59 AM Referred By: REFERRED SELF Confirmed By:King Paul
--- NOTE | 2023-03-20 12:02 | XRay Report ---
XR abdomen 2V w PA chest CLINICAL HISTORY: recurrent n/v and constipation TECHNIQUE: 2 views of the abdomen were obtained. A single view of the chest was obtained. Comparison: Comparison is made to chest radiograph 03/19/2023 FINDINGS: No lines and tubes are seen. The cardiomediastinal silhouette is normal. The lungs are clear. No evid ence of pleural effusion or pneumothorax. The osseous structures are grossly unremarkable. The bowel gas pattern is nonobstructive. Small stool burden is seen. IMPRESSION: Nonobstructive bowel gas pattern. ACT 112: Negative or not required by law. Electronically signed by: Rob Lebron M.D. 03/20/2023 12:00 PM
[2023-03-20] MEDS: ACETAMINOPHEN 325 MG TAB PO PRN (15:30)
--- NOTE | 2023-03-20 15:54 | Billing Data ---
Date of Service March 20, 2023 Coding Level of Care Code 46796 SUB INP/OBS CARE MIN
--- NOTE | 2023-03-20 17:10 | Ultrasound Report ---
ULTRASOUND RIGHT UPPER QUADRANT ABDOMEN CLINICAL HISTORY: Right upper quadrant abdominal pain. History of cholecystectomy. COMPARISON STUDY: Abdominal CT dated 02/28/2023 TECHNIQUE: Real-time, grayscale, and color flow sonography of the right upper quadrant of the abdomen was performed. Images are reviewed in the transverse and longitudinal planes. FINDINGS: Liver: The liver is mildly enlarged an heterogeneous in echotexture. There is no intrahepatic biliary ductal dilatation. The main portal vein is patent. Gallbladder: The gallbladder is surgically absent. The common bile duct measures up to 0.4 cm in diam eter. Pancreas: Visualized portions of the pancreatic head and body are normal in appearance. The splenic v ein is patent. Right kidney: Survey images of the right kidney demonstrate normal size and echotexture. There is no hydronephrosis. Ascites: None. IMPRESSION: 1. The liver is mildly enlarged and heterogeneous. 2. Status post cholecystectomy. 3. There is no intra or extrahepatic biliary ductal dilatation. ACT 112: Negative or not required by law. Electronically signed by: Lalito Cisse M.D. 03/20/2023 5:08 PM
--- NOTE | 2023-03-20 19:44 | Billing Data ---
Date of Service March 20, 2023 Coding Level of Care Code 69480 INT INP/OBS CARE
[2023-03-20] MEDS: POLYETHYLENE (MIRALAX) 17 GM PACK PO SCH (20:49)
[2023-03-20] MEDS: ATORVASTATIN 40 MG TAB PO SCH (20:50)
--- NOTE | 2023-03-21 07:00 | Hospitalist Progress Note ---
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 Nausea, Vomiting, Diarrhea -Patient with multiple presentations for NVD w/ abdominal pain. Currently patient has same symptoms + dehydration. Mild leukocytosis, but suspect some hemoconcentration -gastric emptying study was completed (03/05/23) which was normal -recent CT A/P not significantly constipated -GI consulted, recommend continue miralax -Tylenol for pain PRN, Compazine PRN for nausea (should have lesser impact on QT prolongation) - GERD/PUD could also be contributing maximize regimen with PPI BID, famotidine, Carafate - outpatient f/u for coloscopy 04/24/23 - US abdomen negative for retained stone, history of cholecystectomy -suspect her ongoing nausea vomitting is part uncontrolled diabetes, constipation, but also a large part ongoing anxiety -may consider trigger point injection to abd Anxiety/Depression -patient has repeatedly remarked on anxiety regarding low blood sugar, feeling afraid to be alone at home, frequent fatigue and low energy, and persistent nausea, with a history of trialing lexapro and fluvoxamine -discussed with patient trialing Wellbutrin to hopefully help with her nausea, l ow energy, anxiety/depression. Counselled patient side effects may sometimes worsen anxiety/sleep. Will monitor while in hospital. Will start on Wellbutrin 100mg BID, if tolerated well in 3 days can switch to 100mg TID -continue to follow in outpatient setting Uncontrolled T2DM -01/24/23 A1c 10.2 -Continue SSI/10u Lantus BID, adjust basal/bolus regimen tomorrow based on insulin requirements in the next 24 hours -patient has persistent fear of hypoglycemia Hypokalemia | Hypomagnesemia -Ongoing history of hypokalemia and hypomagnesemia. K of 2.6, Mag 1.5 in ED -Hx of VTach/Torsades 2/2 severe electrolyte anomalies -Received repletion of potassium, magnesium in ED. Ordered an additional 60mEq PO. -Monitor daily BMP, magnesium levels Chest Pain -Onset of pain ~2 days, troponin negative on arrival -Suspect musculoskeletal as etiology -Will monitor on telemetry considering her cardiac history and prior torsades /current electrolyte abnormalities PND | Nasal Drainage -Respiratory biofire negative -CXR without evidence of acute process per my interpretation -Will start Flonase for PND Hx of CHF -Hypovolemic on presentation secondary to vomiting/diarrhea, now s/p 2L bolus in ER (+ additional ~400mL from IV K and Mag) -12/2022 Echo w/ EF 60-65% -Euvolemic on exam Hypothyroidism -Continue home levothyroxine CAD, -Continue statin, ASA, ticagrelor, gabapentin - Not on beta elizabeth or ELHAM/ARB but with review of vitals trend likely would not tolerate Diet: Carb consistent DVT Prophylaxis: SCDs Code status: would want CPR/Shock/meds if heart stopped, no intubation. Dispo: Med/Tele Admission and Anticipated Discharge Date Admission Date: March 20, 2023 Supervising Physician Co-Signing Physician Notes I personally examined the patient and verified all real points of history and exam, discussed case, and agree with decision making with Dr Hutchison Feeling fairly bad. Nursing notes through the night noted that she did eat multiple snacks though. She notes breakfast did not go wellbut relates it was pancakes, and she generally does not like pancakes. I encouraged the patient to order food that is not pancakes in the future. Vitals noted, in general she is awake and alert pleasant no distress. HEENT normocephalic atraumatic mucous membranes moist. Breathing unlabored no accessory muscle use good effort. Skin shows no rashes no pallor or icterus. Neuro without focal deficits. Nausealikely multifactorial. Thus far therapeutic trial for acid suppression makes peptic ulcer disease seem less likely given that we are quite aggressive with no real change in her symptoms. I do suspect some is constipation, a large portion is probably anxiety and loneliness, and I do wonder about the impact of her trigger points. Resident physician initiating anxiety management (patient did note that whenever she takes her mother's benzodiazepines it does help with the nausea for an hour or sowe discussed that benzos tend to be a terrible long-term option, she also admitted that she should not be taking her mother's medications). Consider trigger point injections. Continue aggressive acid suppression into tomorrow, but if there is no improvementreduce to her baseline regimen. Continue bowel regimen. Sugar still uncontrolledbut glycemic control is improving some. It looks like she had about 27 units of bolus yesterday compared to 20 units of [place] sugars were all [id number] elevatedincrease basal to 15 twice daily, keep bolus as is and follow. DVT proph - lovenox Subjective Patient seen at bedside, calm comfortable cooperative. Patient states she had some nausea and stomach discomfort this morning, states it sometimes resolves with the medication she gets in the hospital. She has had ongoing nausea over the last several months. Denies SOB. Patient understands based on her history of frequent testing and hospitalizations, low risk of having a severe condition, but her nausea may be compounded by her anxiety and loneliness, patient lives alone. She was started on gabapentin 2 months ago, states the nausea preceded the medication. Patient was previously on fluvoxamine, this was discontinued in the setting of Vtach and concern QTc prolongation. At one point she has trialed lexapro as well. Denies any side effects while on medication, unsure if it helped her symptoms. Patient states se is frequently tired and has low energy. Denies history of seizures. Denies history of hailey. Physical Exam Physical Exam: Constitutional: well-appearing, no acute distress HEENT: NCAT, no conjunctival injection CV: regular rhythm, no murmur appreciated, extremities well-perfused, no LE edema Resp: CTABL, no wheezes/rales/rhonchi appreciated, no increased work of breathing GI: soft, nondistended, mild midepigastric and RUQ tenderness, BS normoactive MSK: no gross deformities appreciated Skin: warm, dry, no rash appreciated Neuro: alert, oriented, no focal neurologic deficit appreciated Results & Data Results & Data Vital Signs (Past 12 Hours) Vital Signs Temp Pulse Pulse Resp BP BP Pulse Ox 03/21/23 03:04 36.9 C 60 18 133/56 L 96 03/20/23 23:44 36.7 C 90 18 94/53 L 96 03/20/23 23:32 58 L 03/20/23 21:29 112/72 03/20/23 20:45 03/20/23 19:24 36.7 C 64 16 82/51 L 96 O2 Del Method 03/21/23 03:04 Room Air 03/20/23 23:44 Room Air 03/20/23 23:32 03/20/23 21:29 03/20/23 20:45 Room Air 03/20/23 19:24 Room Air Resident Activity Tracking Resident Involvement: Resident Care Provided Care Provided: Adult Hospital Medicine"
[2023-03-21 07:01] LABS: Basophils # (auto) 0.03 K/uL (0.00-0.20); Basophils % (auto) 0.4 %; Eosinophils # (auto) 0.54 K/uL (0.00-0.50); Eosinophils % (auto) 6.3 %; Hematocrit (blood only) 33.4 % (37.0-47.0); Immature Granulocytes # (auto) 0.04 K/uL (0.01-0.20); Immature Granulocytes % (auto) 0.5 %; Lymphocytes # (auto) 3.12 K/uL (1.20-3.40); Lymphocytes % (auto) 36.6 %; Mean Corpuscular Hemoglobin 28.6 pg (25.0-34.0); Mean Corpuscular Hgb Conc 32.9 g/dL (32.0-36.0); Mean Corpuscular Volume 86.8 fL (80.0-100.0); Mean Platelet Volume 11.5 fL (9.4-12.4); Monocytes # (auto) 0.37 K/uL (0.11-0.59); Monocytes % (auto) 4.3 %; Neutrophils # (auto) 4.43 K/uL (1.40-6.50); Neutrophils % (auto) 51.9 %; Platelet Count 207 K/uL (130-400); RDW Coefficient of Variation 13.6 % (11.5-14.5); RDW Standard Deviation 42.5 fL (36.4-46.3); Red Blood Count 3.85 M/uL (4.20-5.40); White Blood Count 8.53 K/ul (4.8-10.8)
[2023-03-21 07:16] LABS: Calcium 8.6 mg/dl (8.6-10.3); Magnesium 1.5 mg/dl (1.7-2.4); Potassium 3.6 mmol/L (3.5-5.1)
[2023-03-21 07:22] LABS: BUN Creatinine Ratio 10.5 (10-20); Creatinine Clr Calc Pharmacy 62.7 ml/min; Est GFR (African American) 83.3 ml/min; Est GFR (Non-African American) 71.9 ml/min
[2023-03-21] MEDS: PROCHLORPERAZINE MALEATE 5 MG TAB PO PRN (08:03)
[2023-03-21] MEDS: MAGNESIUM SULFATE / D5W 1 GM/100 ML BAG IV ONE (08:05)
[2023-03-21] MEDS: POTASSIUM CHLORIDE 10 MEQ TABCR PO SCH (08:05)
[2023-03-21] MEDS: FAMOTIDINE 40 MG TABLET PO SCH (08:08)
[2023-03-21] MEDS ORDERED: POLYETHYLENE (MIRALAX) 17 GM PACK PO SCH (09:00)
[2023-03-21] MEDS: ALUMINUM/MAGNESIUM SUSP 30 ML UDC PO STA (12:22)
--- NOTE | 2023-03-21 12:41 | Billing Data ---
Date of Service March 21, 2023 Coding Level of Care Code 17304 SUB INP/OBS CARE
[2023-03-21] MEDS: LANTUS PER UNIT CHARGE SQ SCH (21:32)
[2023-03-21] MEDS: buPROPion HCl 100 MG TABLET PO SCH (22:11)
[2023-03-22 07:35] LABS: Basophils # (auto) 0.03 K/uL (0.00-0.20); Basophils % (auto) 0.3 %; Eosinophils # (auto) 0.49 K/uL (0.00-0.50); Eosinophils % (auto) 5.4 %; Hematocrit (blood only) 35.3 % (37.0-47.0); Hemoglobin 11.6 g/dl (12.0-16.0); Immature Granulocytes # (auto) 0.03 K/uL (0.01-0.20); Immature Granulocytes % (auto) 0.3 %; Lymphocytes # (auto) 2.19 K/uL (1.20-3.40); Lymphocytes % (auto) 24.1 %; Mean Corpuscular Hemoglobin 28.9 pg (25.0-34.0); Mean Corpuscular Hgb Conc 32.9 g/dL (32.0-36.0); Mean Platelet Volume 11.7 fL (9.4-12.4); Monocytes # (auto) 0.49 K/uL (0.11-0.59); Monocytes % (auto) 5.4 %; Neutrophils # (auto) 5.86 K/uL (1.40-6.50); Neutrophils % (auto) 64.5 %; Platelet Count 211 K/uL (130-400); RDW Coefficient of Variation 13.8 % (11.5-14.5); Red Blood Count 4.01 M/uL (4.20-5.40); White Blood Count 9.09 K/ul (4.8-10.8)
[2023-03-22 07:51] LABS: BUN Creatinine Ratio 13.3 (10-20); Calcium 8.6 mg/dl (8.6-10.3); Creatinine Clr Calc Pharmacy 65.6 ml/min; Potassium 4.6 mmol/L (3.5-5.1)
--- NOTE | 2023-03-22 08:42 | Hospitalist Progress Note ---
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 Chronic gastritis -Previous history of multiple admissions for NVD w/ abdominal pain, similar symptoms with resulting dehydration on this admission -03/05 gastric emptying study normal -Recent CTAP 02/28 without significant findings -Negative US abdomen on admission -Suspect these symptoms are primarily driven by anxiety with sizable contribution from constipation -Miralax 85 gm administered today -GI consulted- recommend continued constipation management -Colonoscopy scheduled as outpatient 04/23 -Pain control- Tylenol PRN, Voltaren -Nausea control- Compazine PRN. Given history of VT/Torsades, maintain cautious use of QT prolonging anti-emetics -GI regimen initiated earlier in admission to reduce GERD/PUD contribution to symptoms- PPI BID, famotidine, sucralfate -Due to minimal improvement, discontinued famotidine + sucralfate. Pantoprazole decreased to 40 mg daily -Consider trigger point injections if no improvement, though this is unlikely Anxiety with depression -Pt reports persistent anxiety related to potential hypoglycemia with significant loneliness component due to living alone at home -Has previously failed Lexapro + Fluvox -Wellbutrin 100 mg BID initiated on 03/21 -Appears to be tolerating well for now -Switched to 150 mg XL -Deferring further dose titration to PCP Uncontrolled T2DM -01/24/23 A1C 10.2% -Lantus/SSI in hospital Electrolyte abnormalities- hypokalemia/hypomagnesemia -Ongoing history of hypokalemia and hypomagnesemia. K of 2.6, Mg 1.5 in ED -Hx of VT/Torsades 2/2 severe electrolyte anomalies -Currently stable s/p repletion -Monitor daily BMP, Mg Atypical chest pain -Onset of L arm pain 2 days prior, troponin negative on arrival -EKG does not suggest acute ST change indicative of [place] -Suspect musculoskeletal as etiology rather than cardiac -Will monitor on telemetry considering her cardiac history and prior Torsades/current electrolyte abnormalities -Repeat EKG today Postnasal drip -RVP negative -CXR without evidence of acute process -Continue daily Flonase HFpEF -Hypovolemic on presentation secondary to vomiting/diarrhea, now s/p 2L bolus in ER (+ additional ~400mL from IV K and Mag) -12/2022 TTE w/ EF 60-65% -Euvolemic on exam, not in exacerbation at present Hypothyroidism -Continue home levothyroxine CAD, -Continue statin, ASA, ticagrelor, gabapentin - Not on beta elizabeth or ELHAM/ARB but with review of vitals trend likely would not tolerate Diet: Carb consistent DVT Prophylaxis: SCDs Code status: would want CPR/shock/medications if heart stopped, no intubation. Dispo: Medical/surgical with telemetry Admission and Anticipated Discharge Date Admission Date: March 20, 2023 Supervising Physician Co-Signing Physician Notes I personally examined the patient and verified all real points of history and exam, discussed case, and agree with decision making with Dr Butts feeling about the same. Vitals noted, in general she is awake and alert pleasant no distress. HEENT normocephalic atraumatic mucous membranes moist. Breathing unlabored no accessory muscle use good effort. Skin shows no rashes no pallor or icterus. Neuro without focal deficits. Nausealikely multifactorial. no improvement with acid suppression - very unlikely to be mucosal - de-escalate. most likely constipation (miralax) + trigger points (discussed injections she declines - voltaren gel for now) + anxiety Sugar still uncontrolledworking on glycemic control. no gastroparesis, however. DVT proph - lovenox Subjective Acute events overnight- none. Pt examined at bedside. Still feels nauseous with some generalized abdominal pain, reports little relief from Compazine and Tylenol respectively. Has yet to have a bowel movement. Review of Systems Review of Systems: As per above Physical Exam Physical Exam: Constitutional: well-appearing, no acute distress HEENT: NCAT, no conjunctival injection CV: regular rhythm, no murmur appreciated, extremities well-perfused, no LE edema Resp: CTABL, no wheezes/rales/rhonchi appreciated, no increased work of breathing GI: soft, nondistended, mild midepigastric and RUQ/RLQ tenderness, BS normoactive MSK: no gross deformities appreciated Skin: warm, dry, no rash appreciated Neuro: alert, oriented, no focal neurologic deficit appreciated Results & Data Results & Data Vital Signs (Past 12 Hours) Vital Signs Temp Pulse Pulse Resp BP Pulse Ox O2 Del Method 03/22/23 07:15 62 03/22/23 04:50 36.6 C 61 20 116/73 98 Room Air 03/21/23 23:14 36.5 C 63 20 125/80 96 Room Air 03/21/23 22:00 63 Resident Activity Tracking Resident Involvement: Resident Care Provided Care Provided: Adult Hospital Medicine
[2023-03-22] MEDS: MAGNESIUM OXIDE 400 MG TAB PO SCH (08:47)
[2023-03-22] MEDS: POLYETHYLENE (MIRALAX) 17 GM PACK PO STA (08:49)
[2023-03-22] MEDS: ENOXAPARIN INJ 40 MG/0.4 ML SYR SQ SCH (08:51)
[2023-03-22] MEDS: DICLOFENAC SOD 1% GEL 100 GM TUBE EXT SCH (12:52)
--- NOTE | 2023-03-22 14:58 | Billing Data ---
Date of Service March 22, 2023 Coding Level of Care Code 14875 SUB INP/OBS CARE
--- NOTE | 2023-03-23 06:46 | Electrocardiogram Report ---
Test Reason : Blood Pressure : / mmHG Vent. Rate : 070 BPM Atrial Rate : 070 BPM P-R Int : 144 ms QRS Dur : 070 ms QT Int : 424 ms P-R-T Axes : 042 053 044 degrees QTc Int : 457 ms Poor data quality, interpretation may be adversely affected Normal sinus rhythm Septal infarct , age undetermined Abnormal ECG When compared with ECG of 19-MAR-2023 20:43, No significant change Confirmed by Jose R Flores ([id number]) on 03/23/2023 6:46:43 AM Referred By: REFERRED SELF Confirmed By:Jose R Flores
[2023-03-23 07:51] LABS: Hematocrit (blood only) 37.1 % (37.0-47.0); Hemoglobin 12.1 g/dl (12.0-16.0); Mean Corpuscular Hemoglobin 28.7 pg (25.0-34.0); Mean Corpuscular Hgb Conc 32.6 g/dL (32.0-36.0); Mean Corpuscular Volume 87.9 fL (80.0-100.0); Mean Platelet Volume 11.5 fL (9.4-12.4); Platelet Count 201 K/uL (130-400); RDW Coefficient of Variation 13.6 % (11.5-14.5); RDW Standard Deviation 43.3 fL (36.4-46.3); Red Blood Count 4.22 M/uL (4.20-5.40); White Blood Count 9.07 K/ul (4.8-10.8)
[2023-03-23 07:54] LABS: BUN Creatinine Ratio 13.4 (10-20); Calcium 9.1 mg/dl (8.6-10.3); Creatinine Clr Calc Pharmacy 55.7 ml/min; Est GFR (Non-African American) 62.2 ml/min; Magnesium 1.5 mg/dl (1.7-2.4); Phosphorus 4.5 mg/dl (2.5-4.9); Potassium 5.3 mmol/L (3.5-5.1)
[2023-03-23] MEDS: PANTOprazole 40 MG TAB PO SCH (08:44)
[2023-03-23] MEDS: buPROPion XL 150 MG TABCR PO SCH (08:49)
--- NOTE | 2023-03-23 09:24 | Hospitalist Progress Note ---
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 Chronic gastritis -Previous history of multiple admissions for NVD w/ abdominal pain, similar symptoms with resulting dehydration on this admission -03/05 gastric emptying study normal -Recent CTAP 02/28 without significant findings -Negative US abdomen on admission -Suspect these symptoms are primarily driven by anxiety with sizable contribution from constipation -Bowel regimen- scheduled Miralax, PRN Colace + Senna -GI consulted- recommend continued constipation management -Colonoscopy scheduled as outpatient 04/23 -Pain control- Tylenol PRN, Voltaren -Nausea control- Compazine PRN. Given history of VT/Torsades, maintain cautious use of QT prolonging anti-emetics -GI regimen initiated earlier in admission to reduce GERD/PUD contribution to symptoms- PPI BID, famotidine, sucralfate -Due to minimal improvement, discontinued famotidine + sucralfate and pantoprazole decreased to daily on 03/22 -Consider trigger point injections if no improvement, though this is unlikely to provide significant benefit and pt declines currently Electrolyte abnormalities- hypokalemia/hypomagnesemia -Ongoing history of hypokalemia and hypomagnesemia. K of 2.6, Mg 1.5 in ED -Hx of VT/Torsades 2/2 severe electrolyte anomalies -Noted mild hyperkalemia to 5.3 today, continue to monitor -Noted hypomagnesemia to 1.5 today, repleting -Monitor daily BMP, Mg Anxiety with depression -Pt reports persistent anxiety related to potential hypoglycemia with significant loneliness component due to living alone at home -Has previously failed Lexapro + Fluvox -Wellbutrin 100 mg BID initiated on 03/21 -Appears to be tolerating well for now -Switched to 150 mg XL, to start today 03/23 -Deferring further dose titration to PCP Uncontrolled T2DM -01/24/23 A1C 10.2% -Lantus/SSI in hospital -BSGs mostly elevated in high 100s/low 200s Atypical chest pain/Left arm pain -Onset of L arm pain 2 days prior, troponin negative on arrival -EKG does not suggest acute ST change indicative of [place] -Suspect musculoskeletal as etiology rather than cardiac -Will monitor on telemetry considering her cardiac history and prior Torsades/current electrolyte abnormalities -Repeat EKG on 03/22 unremarkable Postnasal drip -RVP negative -CXR without evidence of acute process -Continue daily Flonase HFpEF -Hypovolemic on presentation secondary to vomiting/diarrhea, now s/p 2L bolus in ER (+ additional ~400mL from IV K and Mag) -12/2022 TTE w/ EF 60-65% -Euvolemic on exam, not in exacerbation at present Hypothyroidism -Continue home levothyroxine CAD, -Continue statin, ASA, ticagrelor, gabapentin - Not on beta elizabeth or ELHAM/ARB but with review of vitals trend likely would not tolerate Diet: Carb consistent DVT Prophylaxis: SCDs Code status: would want CPR/shock/medications if heart stopped, no intubation. Dispo: Medical/surgical with telemetry Admission and Anticipated Discharge Date Admission Date: March 20, 2023 Supervising Physician Co-Signing Physician Notes I personally examined the patient and verified all real points of history and exam, discussed case, and agree with decision making with Dr Butts feeling about the same. still no BM yet. feels like she isn't ready to get home until she at least has a BM. Vitals noted, in general she is awake and alert pleasant no distress. HEENT normocephalic atraumatic mucous membranes moist. Breathing unlabored no accessory muscle use good effort. Skin shows no rashes no pallor or icterus. Neuro without focal deficits. Nausealikely multifactorial. no improvement with acid suppression - very unlikely to be mucosal - de-escalated. most likely constipation (more miralax) + trigger points (discussed injections, she declines - voltaren gel for now) + anxiety and have discussed with pt repeatedly that anxiety/loneliness is quite likely the largest contributor Sugar still uncontrolledtitrate insulin. no gastroparesis, however. DVT proph - lovenox d/w pt she is stable for home and her situation is likely to change slowly (and really only once she starts to take steps to remedy the loneliness, which in turn should then help the anxiety) - she's worried about going home until at least she has a BM. additional miralax Subjective Acute events overnight- none. Pt examined at bedside. Still feels nauseous with some generalized abdominal pain, reports little relief from Compazine and Tylenol respectively. The Voltaren gel does provide mild relief. Still having left arm pain and has yet to have a bowel movement. Review of Systems Review of Systems: As per above Physical Exam Physical Exam: Constitutional: tiredl-appearing, no acute distress HEENT: NCAT, no conjunctival injection CV: regular rhythm, no murmur appreciated, extremities well-perfused, no LE edema Resp: CTABL, no wheezes/rales/rhonchi appreciated, no increased work of breathing GI: soft, nondistended, mild midepigastric and RUQ/RLQ tenderness, BS normoactive MSK: no gross deformities appreciated Skin: warm, dry, no rash appreciated Neuro: alert, oriented, no focal neurologic deficit appreciated Results & Data Results & Data Vital Signs (Past 12 Hours) Vital Signs Temp Pulse Pulse Resp BP BP Pulse Ox 03/23/23 08:06 61 03/23/23 07:28 36.4 C L 67 18 125/77 97 03/23/23 03:01 36.4 C L 67 16 125/75 94 03/22/23 23:00 36.5 C 63 17 127/75 95 03/22/23 22:00 65 O2 Del Method 03/23/23 08:06 03/23/23 07:28 Room Air 03/23/23 03:01 Room Air 03/22/23 23:00 Room Air 03/22/23 22:00 Resident Activity Tracking Resident Involvement: Resident Care Provided Care Provided: Adult Hospital Medicine
[2023-03-23] MEDS: SENNOSIDES 8.8 MG/5 ML UDC PO STA (10:39)
[2023-03-23] MEDS: MAGNESIUM SULFATE / D5W 1 GM/100 ML BAG IV SCH (10:40)
[2023-03-23] MEDS: DOCUSATE SODIUM 100 MG CAP PO ONE (10:48)
[2023-03-23] MEDS: POLYETHYLENE (MIRALAX) 17 GM PACK PO STA (11:26)
--- NOTE | 2023-03-23 14:09 | Billing Data ---
Date of Service March 23, 2023 Coding Level of Care Code 39605 SUB INP/OBS CARE
[2023-03-23] MEDS: POLYETHYLENE (MIRALAX) 17 GM PACK PO SCH ×2 (14:25→20:43)
[2023-03-23] MEDS ORDERED: POLYETHYLENE (MIRALAX) 17 GM PACK PO SCH (21:00)
[2023-03-24 07:23] LABS: Hematocrit (blood only) 34.5 % (37.0-47.0); Hemoglobin 11.3 g/dl (12.0-16.0); Mean Corpuscular Hemoglobin 28.5 pg (25.0-34.0); Mean Corpuscular Hgb Conc 32.8 g/dL (32.0-36.0); Mean Corpuscular Volume 86.9 fL (80.0-100.0); Mean Platelet Volume 11.7 fL (9.4-12.4); Platelet Count 204 K/uL (130-400); RDW Coefficient of Variation 13.4 % (11.5-14.5); RDW Standard Deviation 41.9 fL (36.4-46.3); Red Blood Count 3.97 M/uL (4.20-5.40); White Blood Count 10.14 K/ul (4.8-10.8)
--- NOTE | 2023-03-24 07:30 | Hospitalist Progress Note ---
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 Constipation -Previous history of multiple admissions for NVD w/ abdominal pain, with unremarkable GI work-up -Suspect these symptoms are primarily driven by anxiety with sizable contribution from constipation. GI consulted and feel symptoms largely secondary to constipation -Bowel regimen- scheduled Miralax, PRN Colace + Senna -Colonoscopy scheduled as outpatient 04/23 -Nausea control- Compazine PRN. Given history of VT/Torsades, maintain cautious use of QT prolonging anti-emetics -Regimen for GERD/PUD was initiated at beginning of admission, but did not improve symptoms so deescalated -Trigger point injections for abdominal trigger point was considered, but ultimately felt that since constipation is main contributing factor, likely would not be helpful Electrolyte abnormalities- hypokalemia/hypomagnesemia -Ongoing history of hypokalemia and hypomagnesemia. K of 2.6, Mg 1.5 in ED -Hx of VT/Torsades 2/2 severe electrolyte anomalies -K= 4/5 Mg= 1.7 03/24, -Monitor daily BMP, Mg Anxiety with depression -Pt reports persistent anxiety related to potential hypoglycemia with significant loneliness component due to living alone at home -Has previously failed Lexapro + Fluvox -Wellbutrin 100 mg BID initiated on 03/21 -Started on Wellbutrin this admission; continue 150mg XL Uncontrolled T2DM -01/24/23 A1C 10.2% -Lantus/SSI in hospital Atypical chest pain/Left arm pain- Resolved -Onset of L arm pain 2 days prior, troponin negative on arrival -EKG does not suggest acute ST change indicative of [place] -Suspect musculoskeletal as etiology rather than cardiac -Repeat EKG on 03/22 unremarkable, no events on telemetry Postnasal drip -RVP negative -Continue daily Flonase HFpEF -Hypovolemic on presentation secondary to vomiting/diarrhea, now s/p 2L bolus in ER (+ additional ~400mL from IV K and Mag) -12/2022 TTE w/ EF 60-65% -Euvolemic on exam, not in exacerbation at present Hypothyroidism -Continue home levothyroxine CAD, -Continue statin, ASA, ticagrelor, gabapentin - Not on beta elizabeth or ELHAM/ARB but with review of vitals trend likely would not tolerate Diet: Carb consistent DVT Prophylaxis: SCDs Code status: would want CPR/shock/medications if heart stopped, no intubation. (2) Acute dehydration: (3) Nausea & vomiting: (4) Acute hypokalemia: (5) Hyperglycemia: (6) Hypomagnesemia: (7) Chest pain: (8) Nausea: (9) Anxiety: Admission and Anticipated Discharge Date Admission Date: March 20, 2023 Supervising Physician Co-Signing Physician Notes Attending Physician Supervision Note: I independently interviewed and examined the patient and verified the real history and physical, reviewed labs and image studies and agree with findings and care plan noted above. denies any change. hasn't had BM yet. Noted her breakfast plate was mostly empty. Vitals noted, in general she is awake and alert pleasant no distress. HEENT normocephalic atraumatic mucous membranes moist. Breathing unlabored no accessory muscle use good effort. Skin shows no rashes no pallor or icterus. Neuro without focal deficits. Nausealikely multifactorial. normal gastric emptying study 03/05. no improvement with acid suppression - very unlikely to be mucosal - de-escalated. most likely constipation (more miralax) + anxiety/loneliness is likely the largest contributor Constipation - aggressive bowel regimen DM - with improving appetite - blood sugar up further. increase lantus to 18 units bid. DVT proph - lovenox To Discuss with case management regarding home services Subjective Pt seen at bedside this morning. Notes continued nausea. Has not had a BM since admission. Review of Systems Review of Systems: As per above Physical Exam Physical Exam: Constitutional: well-appearing, no acute distress HEENT: NCAT, no conjunctival injection CV: regular rhythm, no murmur appreciated, extremities well-perfused, no LE tasia a Resp: CTABL, no wheezes/rales/rhonchi appreciated, no increased work of breathing GI: soft, nondistended, mild diffuse tenderness, BS normoactive MSK: no gross deformities appreciated Skin: warm, dry, no rash appreciated Neuro: alert, oriented, no focal neurologic deficit appreciated Results & Data Results & Data Vital Signs (Past 12 Hours) Vital Signs Temp Pulse Pulse Resp BP Pulse Ox O2 Del Method 03/24/23 07:10 60 03/24/23 04:22 36.6 C 61 20 90/57 L 98 Room Air 03/24/23 00:39 36.5 C 65 20 125/66 96 Room Air 03/24/23 00:14 67 03/23/23 20:19 36.5 C 79 20 132/81 96 Room Air Resident Activity Tracking Resident Involvement: Resident Care Provided Care Provided: Adult Hospital Medicine
[2023-03-24 07:40] LABS: BUN Creatinine Ratio 13.7 (10-20); Calcium 9.1 mg/dl (8.6-10.3); Creatinine Clr Calc Pharmacy 52.5 ml/min; Est GFR (African American) 67.8 ml/min; Est GFR (Non-African American) 58.5 ml/min; Magnesium 1.7 mg/dl (1.7-2.4); Potassium 4.5 mmol/L (3.5-5.1)
[2023-03-24] MEDS: LANTUS PER UNIT CHARGE SQ SCH (21:14)
--- NOTE | 2023-03-25 07:05 | Hospitalist Progress Note ---
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 Abdominal Pain secondary to Constipation -Previous history of multiple admissions for NVD w/ abdominal pain, with unremarkable GI work-up -Suspect these symptoms are primarily driven by anxiety with sizable contribution from constipation. GI consulted and feel symptoms largely secondary to constipation -Bowel regimen- scheduled Miralax, PRN Colace + Senna -Colonoscopy scheduled as outpatient 04/23 -Nausea control- Compazine PRN. Given history of VT/Torsades, maintain cautious use of QT prolonging anti-emetics -Regimen for GERD/PUD was initiated at beginning of admission, but did not improve symptoms so deescalated - Trial of enema today Electrolyte abnormalities- hypokalemia/hypomagnesemia -Ongoing history of hypokalemia and hypomagnesemia. K of 2.6, Mg 1.5 in ED -Hx of VT/Torsades 2/2 severe electrolyte anomalies -K=5.1 and Mg= 1.6; Mg was repleted -Monitor daily BMP, Mg Anxiety with depression -Pt reports persistent anxiety related to potential hypoglycemia with significant loneliness component due to living alone at home -Has previously failed Lexapro + Fluvox -Wellbutrin 100 mg BID initiated on 03/21 -Started on Wellbutrin this admission; continue 150mg XL Uncontrolled T2DM -01/24/23 A1C 10.2% -Lantus/SSI in hospital Atypical chest pain/Left arm pain- Resolved -Onset of L arm pain 2 days prior, troponin negative on arrival -EKG does not suggest acute ST change indicative of [place] -Suspect musculoskeletal as etiology rather than cardiac -Repeat EKG on 03/22 unremarkable, no events on telemetry Postnasal drip -RVP negative -Continue daily Flonase HFpEF -Hypovolemic on presentation secondary to vomiting/diarrhea, now s/p 2L bolus in ER (+ additional ~400mL from IV K and Mag) -12/2022 TTE w/ EF 60-65% -Euvolemic on exam, not in exacerbation at present Hypothyroidism -Continue home levothyroxine CAD, -Continue statin, ASA, ticagrelor, gabapentin - Not on beta elizabeth or ELHAM/ARB but with review of vitals trend likely would not tolerate Diet: Carb consistent DVT Prophylaxis: SCDs Code status: would want CPR/shock/medications if heart stopped, no intubation. (2) Acute dehydration: (3) Nausea & vomiting: (4) Acute hypokalemia: (5) Hyperglycemia: (6) Hypomagnesemia: (7) Chest pain: (8) Nausea: (9) Anxiety: Admission and Anticipated Discharge Date Admission Date: March 20, 2023 Supervising Physician Co-Signing Physician Notes Attending Physician Supervision Note: I independently interviewed and examined the patient and verified the real history and physical, reviewed labs and image studies and agree with findings and care plan noted above. when seen this am - after breakfast - meal tray mostly empty - was nauseaous and c/o abdominal pain - generalized. hasn't had BM yet. Vitals noted, in general she is awake and alert pleasant no distress. HEENT normocephalic atraumatic mucous membranes moist. Breathing unlabored no accessory muscle use good effort. Skin shows no rashes no pallor or icterus. Neuro without focal deficits. Abdomen - soft, ND. nonspecific generalized tenderness without any localizing finding Post-prandial Nausea and abdominal pain likely multifactorial. normal gastric emptying study 03/05. no improvement with acid suppression - tx de-escalated. most likely constipation (more miralax) + anxiety/loneliness contributing -consult dietary for input Constipation - aggressive bowel regimen. trial enema today DM - with improving appetite - blood sugar up further. increase lantus to 18 units bid. -sugars still elevated - tightened meal coverage DVT proph - lovenox Subjective Pt still complaining of nausea. Notes right sided abdominal pain. Also not had a BM since admission. Review of Systems Review of Systems: As per above Physical Exam Physical Exam: Constitutional: well-appearing, no acute distress HEENT: NCAT, no conjunctival injection CV: regular rhythm, no murmur appreciated, extremities well-perfused, no LE edema Resp: CTABL, no wheezes/rales/rhonchi appreciated, no increased work of breathing GI: soft, nondistended, mild diffuse tenderness, BS normoactive MSK: no gross deformities appreciated Skin: warm, dry, no rash appreciated Neuro: alert, oriented, no focal neurologic deficit appreciated Results & Data Results & Data Vital Signs (Past 12 Hours) Vital Signs Temp Pulse Pulse Resp BP BP Pulse Ox 03/25/23 03:41 36.7 C 64 18 97/63 L 94 03/24/23 23:53 73 03/24/23 23:45 36.6 C 63 18 113/74 94 03/24/23 19:55 36.6 C 78 18 95/66 L 97 O2 Del Method 03/25/23 03:41 Room Air 03/24/23 23:53 03/24/23 23:45 Room Air 03/24/23 19:55 Room Air Resident Activity Tracking Resident Involvement: Resident Care Provided Care Provided: Adult Hospital Medicine
[2023-03-25 07:09] LABS: Hematocrit (blood only) 35.9 % (37.0-47.0); Hemoglobin 11.7 g/dl (12.0-16.0); Mean Corpuscular Hemoglobin 28.3 pg (25.0-34.0); Mean Corpuscular Hgb Conc 32.6 g/dL (32.0-36.0); Mean Corpuscular Volume 86.9 fL (80.0-100.0); Mean Platelet Volume 11.7 fL (9.4-12.4); Platelet Count 217 K/uL (130-400); RDW Coefficient of Variation 13.5 % (11.5-14.5); RDW Standard Deviation 42.7 fL (36.4-46.3); Red Blood Count 4.13 M/uL (4.20-5.40); White Blood Count 8.45 K/ul (4.8-10.8)
[2023-03-25 07:21] LABS: BUN Creatinine Ratio 13.3 (10-20); Calcium 9.1 mg/dl (8.6-10.3); Creatinine Clr Calc Pharmacy 41.7 ml/min; Est GFR (African American) 51.5 ml/min; Est GFR (Non-African American) 44.5 ml/min; Magnesium 1.6 mg/dl (1.7-2.4); Potassium 4.3 mmol/L (3.5-5.1)
[2023-03-25] MEDS: MAGNESIUM SULFATE / D5W 1 GM/100 ML BAG IV ONE (08:22)
[2023-03-25] MEDS: KETOROLAC TROMETHAMINE 15 MG/ML VIAL IV ONE (14:42)
[2023-03-25] MEDS: ONDANSETRON INJ 2 MG/ML 2 ML VIAL IV STA (14:42)
[2023-03-25] MEDS: SENNA 8.6 MG TAB PO SCH (16:22)
[2023-03-26 07:40] LABS: Hemoglobin 11.6 g/dl (12.0-16.0); Mean Corpuscular Hemoglobin 28.8 pg (25.0-34.0); Mean Corpuscular Hgb Conc 33.1 g/dL (32.0-36.0); Mean Corpuscular Volume 86.8 fL (80.0-100.0); Mean Platelet Volume 11.5 fL (9.4-12.4); Platelet Count 220 K/uL (130-400); RDW Coefficient of Variation 13.4 % (11.5-14.5); RDW Standard Deviation 41.9 fL (36.4-46.3); Red Blood Count 4.03 M/uL (4.20-5.40); White Blood Count 8.64 K/ul (4.8-10.8)
[2023-03-26 08:03] LABS: Albumin Globulin Ratio 1.1 (0.9-2); Albumin Level 3.3 gm/dl (3.4-5.0); BUN Creatinine Ratio 15.7 (10-20); Bilirubin,Total 0.4 mg/dl (0.2-1.0); Creatinine Clr Calc Pharmacy 38.2 ml/min; Est GFR (African American) 46.2 ml/min; Est GFR (Non-African American) 39.9 ml/min; Globulin 2.9 gm/dl (2.5-4.0); Magnesium 1.8 mg/dl (1.7-2.4); Potassium 4.3 mmol/L (3.5-5.1); Total Protein 6.2 gm/dl (6.0-8.3)
[2023-03-26] MEDS: LACTATED RINGER'S 500 ML IV ONE (14:47)
--- NOTE | 2023-03-26 15:30 | Hospitalist Progress Note ---
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 Abdominal Pain secondary to Constipation -Previous history of multiple admissions for NVD w/ abdominal pain, with unremarkable GI work-up -Suspect these symptoms are primarily driven by anxiety with sizable contribution from constipation. GI consulted and feel symptoms largely secondary to constipation -Bowel regimen- scheduled Miralax, PRN Colace + Senna -Colonoscopy scheduled as outpatient 04/23 -Nausea control- Compazine PRN. Given history of VT/Torsades, maintain cautious use of QT prolonging anti-emetics -Regimen for GERD/PUD was initiated at beginning of admission, but did not improve symptoms so deescalated - Declines enema SAMRA - Creatine= 1.4 from baseline of 1 - likely prerenal, hypovolemia - will give 500ml bolus IVF - repeat BMP tomorrow - will get repeat UA Electrolyte abnormalities- hypokalemia/hypomagnesemia -Ongoing history of hypokalemia and hypomagnesemia. K of 2.6, Mg 1.5 in ED -Monitor daily BMP, Mg and replete as necessary Anxiety with depression -Pt reports persistent anxiety related to potential hypoglycemia with significant loneliness component due to living alone at home -Has previously failed Lexapro + Fluvox -Wellbutrin 100 mg BID initiated on 03/21 -Started on Wellbutrin this admission; continue 150mg XL Uncontrolled T2DM -01/24/23 A1C 10.2% -Lantus/SSI in hospital Atypical chest pain/Left arm pain- Resolved -Onset of L arm pain 2 days prior, troponin negative on arrival -EKG does not suggest acute ST change indicative of PA -Suspect musculoskeletal as etiology rather than cardiac -Repeat EKG on 03/22 unremarkable, no events on telemetry Postnasal drip -RVP negative -Continue daily Flonase HFpEF -Hypovolemic on presentation secondary to vomiting/diarrhea, now s/p 2L bolus in ER (+ additional ~400mL from IV K and Mag) -12/2022 TTE w/ EF 60-65% -Euvolemic on exam, not in exacerbation at present Hypothyroidism -Continue home levothyroxine CAD, -Continue statin, ASA, ticagrelor, gabapentin - Not on beta elizabeth or ELHAM/ARB but with review of vitals trend likely would not tolerate Diet: Carb consistent DVT Prophylaxis: SCDs Code status: would want CPR/shock/medications if heart stopped, no intubation. (2) Acute dehydration: (3) Nausea & vomiting: (4) Acute hypokalemia: (5) Hyperglycemia: (6) Hypomagnesemia: (7) Chest pain: (8) Nausea: (9) Anxiety: (10) SAMRA (acute kidney injury): Admission and Anticipated Discharge Date Admission Date: March 20, 2023 Supervising Physician Co-Signing Physician Notes Attending Physician Supervision Note: I independently interviewed and examined the patient and verified the real history and physical, reviewed labs and image studies and agree with findings and care plan noted above. had small bm. refused enema though. had sennakot. did eat breakfast followed by pain across the abdomen. Vitals noted, in general she is awake and alert pleasant no distress. HEENT normocephalic atraumatic mucous membranes moist. Breathing unlabored no accessory muscle use good effort. Skin shows no rashes no pallor or icterus. Neuro without focal deficits. Post-prandial Nausea and abdominal pain likely multifactorial. normal gastric emptying study 03/05. no improvement with acid suppression - tx de-escalated. most likely constipation + anxiety/loneliness contributing -continue miralax/case management for ? home services. Constipation - aggressive bowel regimen. DM - improving appetite - blood sugar noted. adjusting insulin regimen. lantus to 18 units. further tightened meal coverage DVT proph - lovenox Subjective Continues to note RLQ pain. Nausea improved. Tolerating PO intake. Small BM. Review of Systems Review of Systems: As per above Physical Exam Physical Exam: Constitutional: well-appearing, no acute distress HEENT: NCAT, no conjunctival injection CV: regular rhythm, no murmur appreciated, extremities well-perfused Resp: CTABL, no wheezes/rales/rhonchi appreciated, no increased work of breathing GI: soft, nondistended, mild diffuse tenderness, BS normoactive MSK: no gross deformities appreciated Skin: warm, dry, no rash appreciated Neuro: alert, oriented, no focal neurologic deficit appreciated Results & Data Results & Data Vital Signs (Past 12 Hours) Vital Signs Temp Pulse Pulse Resp BP Pulse Ox O2 Del Method 03/26/23 15:06 36.5 C 68 15 97/55 L 93 Room Air 03/26/23 14:08 69 03/26/23 11:25 36.2 C L 76 16 113/77 95 Room Air 03/26/23 07:56 36.3 C L 66 16 99/62 L 95 Room Air 03/26/23 07:00 62 03/26/23 05:20 36.4 C L 64 16 91/59 L 96 Room Air Resident Activity Tracking Resident Involvement: Resident Care Provided Care Provided: Adult Hospital Medicine
[2023-03-26 16:59] LABS: Appearance Urine Clear (Clear); Bacteria Urine Automated Negative (Negative); Bilirubin Urine Negative (Negative); Blood Urine Negative (Negative); Color Urine Yellow; Epithelial Cell Urine Auto >30 /lpf (0-5); Glucose Urine UA Negative (Negative); Ketones Urine Negative (Negative); Leukocyte Esterase Urine 1+ (Negative); Nitrite Urine Negative (Negative); Protein Urine Negative (Negative); RBC Urine Automated 0-4 /hpf (0-4); Specific Gravity Urine 1.003 (1.000-1.030); Urobilinogen Urine Negative (Negative)
[2023-03-26] MEDS: KETOROLAC TROMETHAMINE 15 MG/ML VIAL IV ONE (19:51)
[2023-03-27 07:20] LABS: Basophils # (auto) 0.02 K/uL (0.00-0.20); Basophils % (auto) 0.2 %; Eosinophils # (auto) 0.52 K/uL (0.00-0.50); Eosinophils % (auto) 6.2 %; Hematocrit (blood only) 33.5 % (37.0-47.0); Immature Granulocytes # (auto) 0.04 K/uL (0.01-0.20); Immature Granulocytes % (auto) 0.5 %; Lymphocytes # (auto) 1.91 K/uL (1.20-3.40); Lymphocytes % (auto) 22.9 %; Mean Corpuscular Hemoglobin 28.8 pg (25.0-34.0); Mean Corpuscular Hgb Conc 32.8 g/dL (32.0-36.0); Mean Corpuscular Volume 87.7 fL (80.0-100.0); Mean Platelet Volume 11.8 fL (9.4-12.4); Monocytes # (auto) 0.63 K/uL (0.11-0.59); Monocytes % (auto) 7.6 %; Neutrophils # (auto) 5.21 K/uL (1.40-6.50); Neutrophils % (auto) 62.6 %; Platelet Count 203 K/uL (130-400); RDW Coefficient of Variation 13.2 % (11.5-14.5); RDW Standard Deviation 41.8 fL (36.4-46.3); Red Blood Count 3.82 M/uL (4.20-5.40); White Blood Count 8.33 K/ul (4.8-10.8)
[2023-03-27 07:32] LABS: BUN Creatinine Ratio 16.9 (10-20); Creatinine Clr Calc Pharmacy 39.6 ml/min; Est GFR (African American) 47.9 ml/min; Est GFR (Non-African American) 41.3 ml/min; Magnesium 1.7 mg/dl (1.7-2.4); Potassium 4.3 mmol/L (3.5-5.1)
--- NOTE | 2023-03-27 15:27 | Hospitalist Progress Note ---
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 Abdominal Pain secondary to Constipation -Previous history of multiple admissions for NVD w/ abdominal pain, with unremarkable GI work-up -Suspect these symptoms are primarily driven by anxiety with sizable contribution from constipation. GI consulted and feel symptoms largely secondary to constipation -Bowel regimen- scheduled Miralax, PRN Colace + Senna -Colonoscopy scheduled as outpatient 04/23 -Nausea control- Compazine PRN. Given history of VT/Torsades, maintain cautious use of QT prolonging anti-emetics -Regimen for GERD/PUD was initiated at beginning of admission, but did not improve symptoms so deescalated - Declines enema SAMRA - Creatine= 1.4 from baseline of 1; improved to 1.36 with IVF. Encouraged good PO intake - repeat BMP tomorrow Electrolyte abnormalities- hypokalemia/hypomagnesemia -Ongoing history of hypokalemia and hypomagnesemia. K of 2.6, Mg 1.5 in ED -Monitor daily BMP, Mg and replete as necessary Anxiety with depression -Pt reports persistent anxiety related to potential hypoglycemia with significant loneliness component due to living alone at home -Has previously failed Lexapro + Fluvox -Wellbutrin 100 mg BID initiated on 03/21 -Started on Wellbutrin this admission; continue 150mg XL Uncontrolled T2DM -01/24/23 A1C 10.2% -Lantus/SSI in hospital Atypical chest pain/Left arm pain- Resolved -Onset of L arm pain 2 days prior, troponin negative on arrival -EKG does not suggest acute ST change indicative of SD -Suspect musculoskeletal as etiology rather than cardiac -Repeat EKG on 03/22 unremarkable, no events on telemetry Postnasal drip -RVP negative -Continue daily Flonase HFpEF -Hypovolemic on presentation secondary to vomiting/diarrhea, now s/p 2L bolus in ER (+ additional ~400mL from IV K and Mag) -12/2022 TTE w/ EF 60-65% -Euvolemic on exam, not in exacerbation at present Hypothyroidism -Continue home levothyroxine CAD, -Continue statin, ASA, ticagrelor, gabapentin - Not on beta elizabeth or ELHAM/ARB but with review of vitals trend likely would not tolerate (2) Acute dehydration: (3) Nausea & vomiting: (4) Acute hypokalemia: (5) Hyperglycemia: (6) Hypomagnesemia: (7) Chest pain: (8) Nausea: (9) Anxiety: (10) SAMRA (acute kidney injury): Admission and Anticipated Discharge Date Admission Date: March 20, 2023 Supervising Physician Co-Signing Physician Notes Attending Physician Supervision Note: I independently interviewed and examined the patient and verified the real history and physical, reviewed labs and image studies and agree with findings and care plan noted above. had small bm - hard small pellet size. abdominal pain - same after eating breakfast followed by pain across the abdomen . Vitals noted, in general she is awake and alert pleasant no distress. HEENT normocephalic atraumatic mucous membranes moist. Breathing unlabored no accessory muscle use good effort. Skin shows no rashes no pallor or icterus. Neuro without focal deficits. Post-prandial Nausea and abdominal pain likely multifactorial. normal gastric emptying study 03/05. no improvement with acid suppression - tx de-escalated. most likely constipation + anxiety/loneliness contributing - wellbutrin added for depression. -continue miralax. Constipation - aggressive bowel regimen. DM - adjusted insulin dose further DVT proph - lovenox Subjective Nausea improved, but still noted. Is tolerating PO intake. Small BM. Discussed d/c but states she does not have a ride until tomorrow. Review of Systems Review of Systems: As per above Physical Exam Physical Exam: Constitutional: well-appearing, no acute distress HEENT: NCAT, no conjunctival injection CV: regular rhythm, no murmur appreciated, extremities well-perfused Resp: CTABL, no wheezes/rales/rhonchi appreciated, no increased work of breathing GI: soft, nondistended, mild diffuse tenderness, BS normoactive MSK: no gross deformities appreciated Skin: warm, dry, no rash appreciated Neuro: alert, oriented, no focal neurologic deficit appreciated Results & Data Results & Data Vital Signs (Past 12 Hours) Vital Signs Temp Pulse Pulse Resp BP Pulse Ox O2 Del Method 03/27/23 14:00 71 03/27/23 11:37 36.3 C L 71 18 99/58 L 95 Room Air 03/27/23 07:46 36.4 C 66 18 104/62 95 Room Air 03/27/23 07:00 62 03/27/23 04:12 36.5 C 67 17 113/67 94 Room Air Resident Activity Tracking Resident Involvement: Resident Care Provided Care Provided: Adult Hospital Medicine
[2023-03-27] MEDS: POLYETHYLENE (MIRALAX) 17 GM PACK PO SCH (16:45)
[2023-03-27] MEDS: LANTUS PER UNIT CHARGE SQ SCH (21:39)
[2023-03-28 07:15] LABS: Hematocrit (blood only) 34.9 % (37.0-47.0); Hemoglobin 11.3 g/dl (12.0-16.0); Mean Corpuscular Hemoglobin 28.6 pg (25.0-34.0); Mean Corpuscular Hgb Conc 32.4 g/dL (32.0-36.0); Mean Corpuscular Volume 88.4 fL (80.0-100.0); Mean Platelet Volume 11.6 fL (9.4-12.4); Platelet Count 237 K/uL (130-400); RDW Coefficient of Variation 13.2 % (11.5-14.5); Red Blood Count 3.95 M/uL (4.20-5.40); White Blood Count 7.89 K/ul (4.8-10.8)
[2023-03-28 07:34] LABS: Calcium 9.3 mg/dl (8.6-10.3); Est GFR (Non-African American) 45.7 ml/min; Magnesium 1.7 mg/dl (1.7-2.4); Potassium 4.4 mmol/L (3.5-5.1)
[2023-03-28] MEDS: ACETAMINOPHEN 500 MG TAB PO ONE (10:06)
[2023-03-28] MEDS: KETOROLAC TROMETHAMINE 15 MG/ML VIAL IV ONE (13:51)
--- NOTE | 2023-03-28 14:27 | Hospitalist Progress Note ---
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 Abdominal Pain secondary to Constipation -Previous history of multiple admissions for NVD w/ abdominal pain, with unremarkable GI work-up -Suspect these symptoms are primarily driven by anxiety with sizable contribution from constipation. GI consulted and feel symptoms largely secondary to constipation -Bowel regimen- scheduled Miralax, PRN Colace + Senna -Colonoscopy scheduled as outpatient 04/23 -Nausea control- Compazine PRN. Given history of VT/Torsades, maintain cautious use of QT prolonging anti-emetics -Regimen for GERD/PUD was initiated at beginning of admission, but did not improve symptoms so deescalated - Declines enema SAMRA - Creatine= 1.4 from baseline of 1; improved to 1.36 with IVF. Encouraged good PO intake - repeat BMP tomorrow Electrolyte abnormalities- hypokalemia/hypomagnesemia -Ongoing history of hypokalemia and hypomagnesemia. K of 2.6, Mg 1.5 in ED -Monitor daily BMP, Mg and replete as necessary Anxiety with depression -Pt reports persistent anxiety related to potential hypoglycemia with significant loneliness component due to living alone at home -Has previously failed Lexapro + Fluvox -Wellbutrin 100 mg BID initiated on 03/21 -Started on Wellbutrin this admission; continue 150mg XL Uncontrolled T2DM -01/24/23 A1C 10.2% -Lantus/SSI in hospital Atypical chest pain/Left arm pain- Resolved -Onset of L arm pain 2 days prior, troponin negative on arrival -EKG does not suggest acute ST change indicative of CA -Suspect musculoskeletal as etiology rather than cardiac -Repeat EKG on 03/22 unremarkable, no events on telemetry Postnasal drip -RVP negative -Continue daily Flonase HFpEF -Hypovolemic on presentation secondary to vomiting/diarrhea, now s/p 2L bolus in ER (+ additional ~400mL from IV K and Mag) -12/2022 TTE w/ EF 60-65% -Euvolemic on exam, not in exacerbation at present Hypothyroidism -Continue home levothyroxine CAD, -Continue statin, ASA, ticagrelor, gabapentin - Not on beta elizabeth or ELHAM/ARB but with review of vitals trend likely would not tolerate (2) Acute dehydration: (3) Nausea & vomiting: (4) Acute hypokalemia: (5) Hyperglycemia: (6) Hypomagnesemia: (7) Chest pain: (8) Nausea: (9) Anxiety: (10) SAMRA (acute kidney injury): Admission and Anticipated Discharge Date Admission Date: March 20, 2023 Results & Data Results & Data Vital Signs (Past 12 Hours) Vital Signs Temp Pulse Pulse Resp BP Pulse Ox O2 Del Method 03/28/23 11:46 36.6 C 73 14 108/72 93 Room Air 03/28/23 08:46 36.4 C L 63 15 106/64 95 Room Air 03/28/23 07:13 61 03/28/23 03:55 36.7 C 67 18 107/64 96 Room Air
--- NOTE | 2023-03-28 15:17 | Discharge Summary ---
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 Patient notes that for two days she has had ongoing symptoms of chest pain (radiating to her left shoulder) which comes and goes as well as nausea/vomiting/diarrhea. She states that after her last admission, she tried to make dietary changes (i.e. was eating more salads) but this seemed to make her symptoms worse. She also notes some nasal congestion and PND, some increased shortness of breath noted when laying flat. States that her blood sugar has also been high lately. ED Course: -2L NSS bolus -Potassium, magnesium repletion -CXR Admission Exam Per Admitting Provider Constitutional: comfortable; no acute distress Eyes: + anicteric sclerae; no conjunctival abn ormality ENMT: Ears: no external ear abnormality Nose: no external nose abnormality Mouth: no oral mucosal abnormality Respiratory: normal respiratory effort; no respiratory distress Auscultation: lungs clear to auscultation bilaterally; no crackles and no wheezes Cardiovascular: Rate/Rhythm: regular rate and regular rhythm +1 edema of bilateral lower extremities Gastrointestinal (Abdomen): Abdomen soft, nondistended. Some tenderness to palpation at epigastric region. Musculoskeletal: Moves all limbs independently Skin: no rashes, warm and dry Psychiatric: A+Ox3, euthymic affect Principal Diagnosis Nausea Anxiety Discharge Exam Constitutional: well-appearing, no acute distress HEENT: NCAT, no conjunctival injection CV: regular rhythm, no murmur appreciated, extremities well-perfused Resp: CTABL, no wheezes/rales/rhonchi appreciated, no increased work of breathing GI: soft, nondistended, mild diffuse tenderness, BS normoactive MSK: no gross deformities appreciated Skin: warm, dry, no rash appreciated Neuro: alert, oriented, no focal neurologic deficit appreciated Discharge Data Allergies Allergy/AdvReac Type Severity Reaction Status Date / Time dulaglutide [From Trulicity] AdvReac Intermediate stomach Verified 03/19/23 23:08 pain albiglutide [From Tanzeum] AdvReac Unknown CAN'T Verified 03/19/23 23:08 REMEMBER Consultations 03/20/23 00:11 ED Decision to Admit Stat 03/20/23 07:41 Consult Gastroenterology Routine Ordered Studies 03/20/23 16:04 US abdomen limited Routine Hospital Course (1) Nausea & vomiting: Yolanda is a 62 year-old female with past medical history of uncontrolled T2DM w/ gastroparesis & nephropathy, CHF, 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 Abdominal Pain secondary to Constipation -Previous history of multiple admissions for NVD w/ abdominal pain, with unremarkable GI work-up -Suspect these symptoms are primarily driven by anxiety with sizable contribution from constipation. -GI consulted and feel symptoms largely secondary to constipation -given prn compazine for nausea while in hospital -Regimen for GERD/PUD was initiated at beginning of admission, but did not improve symptoms so deescalated -Declined enema -Bowel regimen- recommend scheduled miralax, additional colace/senna as needed. Patient had loose BM overnight -Colonoscopy scheduled as outpatient 04/23 Anxiety with depression -Pt reports persistent anxiety related to potential hypoglycemia with significant loneliness component due to living alone at home -Has previously failed Lexapro + Fluvox -Started on Wellbutrin 2/ this admission; continue 150mg XL Wellbutrin daily. F/u in outpatient setting -Have discussed with patient her occasional nausea and abd pain are not due to acute life threatening causes or other etiologies that are treatable in the hospital. Continued hospitalization is not recommended at this time. Patient would benefit from close outpatient followup as well as from a social support network. Patient has been advised that returning home will not only decrease her abd pain in the setting of a more familiar environment but also decrease her risk of getting a hospital acquired infection. Discharge has been ordered as of 03/28. SAMRA - improving with IVF. last creat 1.25, recheck in 1 week in outpatient setting. Electrolyte abnormalities- hypokalemia/hypomagnesemia -Ongoing history of hypokalemia and hypomagnesemia. repleted in hospital Uncontrolled T2DM -01/24/23 A1C 10.2%, managed with SSI in hospital -Patient to resume outpatient regime Atypical chest pain/Left arm pain- Resolved -Onset of L arm pain 2 days prior, troponin negative on arrival -EKG does not suggest acute ST change indicative of LA -Suspect musculoskeletal as etiology rather than cardiac -Repeat EKG on 03/22 unremarkable, no events on telemetry HFpEF -Hypovolemic on presentation secondary to vomiting/diarrhea, now s/p 2L bolus in ER (+ additional ~400mL from IV K and Mag) -12/2022 TTE w/ EF 60-65% -Euvolemic on exam, not in exacerbation at present Hypothyroidism -Continue home levothyroxine CAD, -Continue statin, ASA, ticagrelor, gabapentin - Not on beta elizabeth or ELHAM/ARB. with vitals trend - would not tolerate (2) Constipation: (3) Anxiety: (4) Depression: Total Time Total Time Spent Total Time Spent (In Minutes): see attending attestation Discharge Plan Discharge Items Patient Disposition: Home - Self-Care Reason For Visit: CHEST PAIN Discharge Diagnosis: Nausea secondary to Anxiety Activity: Resume your previous activity Non-emergency contact: Primary Care Provider Call non-emergency contact if: your symptoms worsen, your pain is concerning for you and you have a fever Follow-up/Referrals: Ashlee Gray, RD, LDN, CDE [Registered Dietitian] - 04/04/23 2:30 pm Jc Zaman DO [Primary Care Provider] - 04/04/23 11:00 am Diet: Regular Addtl Attending Provider Instructions: You were admitted to the hospital for nausea, likely secondary to constipation, diabetes and anxiety. Your constipation was treated with Miralax. We started you on Wellbutrin for anxiety and depression. You were seen by gastroenterology, who further assessed your ongoing nausea and agreed that better management of your diabetes and your constipation would help control your nausea. We recommend you use your diabetes medications as prescribed. Your sugars remained high while in the hospital. Your symptoms overall would be improved if your average glucose was under 200. We recommend you stop smoking to help reduce ongoing nausea and vomiting. Smoking often irritates the stomach lining and makes it harder to tolerate food. We recommend you use Miralax 2 capfuls daily to help prevent constipation in the future. A discharge summary will be sent to your primary care physician to ensure continuity of care. Please bring this discharge summary with you to your next office appointment so that your provider can review it at that time. Follow-up appointments: Make a follow-up appointment with your PCP within the next week. It is very important that you follow up with them shortly after discharge from the hospital. Keep all your follow-up appointments as already scheduled. If you cannot make an appointment, notify your provider. Medications: Your medication list has been reviewed and reconciled upon discharge to ensure accuracy and continuity of care. An updated list of all your medications is included with your hospital discharge paperwork. Please review this list closely, and make note of any changes. * We sent a new medication called Wellbutrin to your pharmacy. Take Wellbutrin 150mg one tablet daily Take your medications as instructed; do not skip a dose of your medicines. Make sure all of your doctors know every medicine you are taking (including xaiw-cei-kzegilr medicines, vitamins, and supplements). Call your primary care provider before taking any new medicines (including yyve-dyp-uzqekcg medicines, vitamins, and supplements), because some of these may interact with your current medications, or may make your symptoms worse. Tell your primary care provider if you cannot afford your medications. CONTACT YOUR PRIMARY CARE PROVIDER if you experience any of the following: Difficulty sleeping, anxiety Stomach discomfort, diarrhea, nausea, vomitting Difficulty following your treatment plan, or difficulty taking medications CALL 911 OR GO TO THE EMERGENCY DEPARTMENT if you experience any of the following: Sudden, severe abdominal pain or nausea/vomiting Severe chest pain, or chest pain that radiates (moves) to your jaw or arm Sudden, severe shortness of breath or difficulty breathing Thank you for allowing us to participate in your care. Pending Studies at Discharge: No Stand-Alone Forms: My [facility] Color [employer], Smoking Cessation Medications and DC Order Prescriptions: New bupropion HCl 150 mg Tablet Extended Release 24 Hr 150 mg PO QAM 30 Days Qty: 30 0RF Continued (DME) pen needle, diabetic [BD Ultra-Fine Cary Pen Needle] 32 gauge x 5/32" needle See Dose Instructions .ROUTE .MEDSUPPLY Qty: 200 11RF Dose Instruction: As directed Rx Instructions: use 2 times daily or as directed by physician to monitor blood sugar magnesium oxide 400 mg (241.3 mg magnesium) tablet 400 mg PO BID 90 Days Qty: 180 3RF ascorbic acid (vitamin C) [Vitamin C] 500 mg tablet 1,000 mg PO QAM Qty: 60 0RF folic acid 1 mg tablet 1 mg PO QAM Qty: 30 0RF gabapentin 100 mg capsule 200 mg PO BID Qty: 60 0RF Brilinta 90 mg tablet 90 mg PO BID Qty: 60 0RF (DME) blood-glucose meter [Prodigy Autocode Meter] Kit See Rx Instructions .Route Rx Instructions: As directed aspirin 81 mg Tablet,Delayed Release (Dr/Ec) 81 mg PO QAM Qty: 30 0RF Rx Instructions: Over the counter docusate sodium 100 mg Capsule 100 mg PO BID Qty: 60 0RF Rx Instructions: Over the counter pantoprazole 40 mg tablet,delayed release (DR/EC) 40 mg PO QAM Rx Instructions: TAKE ONE TABLET BY MOUTH ONCE DAILY multivitamin with folic acid [Daily-Seferino (with folic acid)] 400 mcg Tablet 1 tab PO QAM Qty: 30 0RF acetaminophen [Pharbetol] 500 mg Tablet 1,000 mg PO Q8H PRN (Reason: Pain) magnesium hydroxide [Milk of Magnesia] 400 mg/5 mL Suspension 30 ml PO DAILY PRN (Reason: Constipation) Humulin R U-500 (Conc) Kwikpen 500 unit/mL (3 mL) insulin pen 4 unit SUBCUT DIRECTED Rx Instructions: 4 UNITS BSG >200. atorvastatin 80 mg tablet 80 mg PO HS insulin glargine [Lantus U-100 Insulin] 100 unit/mL solution 10 unit SC HS spironolactone 25 mg tablet 25 mg PO QAM ergocalciferol (vitamin D2) 1,250 mcg (50,000 unit) capsule 50,000 unit PO WK Rx Instructions: MONDAYS calcium carbonate-vitamin D3 [Os-Michael 500 + D3] 500 mg-15 mcg (600 unit) tablet 2 tab PO BID Rx Instructions: need new script sucralfate 100 mg/mL Suspension 1 g PO AC Qty: 1000 0RF diclofenac sodium [Voltaren Arthritis Pain] 1 % gel 2 g EXT QID PRN (Reason: Pain) levothyroxine 88 mcg tablet 88 mcg PO DAILYBB Discharge Orders: Discharge Order (Routine); Ordered 03/28/23 Ordered By: Stephanie Hutchison Admission Data Admit Date/Time: 03/20/23 01:31 Attending Provider: Virgie Patel Admit Provider: Belgica Bella Primary Care Provider: Jc Zaman Other Providers: Angela Kraus; Homa Alberto; Parvez Palma; Dahiana Smalls; Leslie Matthews; Regina Arora; Padmini Ramirez; Randall Glover; Kirt Hernandez; Miriam Sargent; Sandy Velasquez; Jolie Phelps; Delaney Niño; Nancy Delgado; Bianca Pompa; Khushboo Blandon; Cathleen Gerardo; Anoop Del Rio; Yordy Mcguire; Manjula Willard; Phuong Cm Jr; Harry Hinojosa Other Interventions: Discharge Summary Assessment (RN) Last Done: 03/28/23 15:56 Supervising Physician Co-Signing Physician Notes Attending Physician Supervision Note: I independently interviewed and examined the patient and verified the real history and physical, reviewed labs and image studies and agree with findings and care plan noted above. Have had extensive discussion with patient and case management team including outpatient director of casework - Isabella Doan regarding preventing readmission with similar presentation. Underlying anxiety and being along a big contributor. Will need close follow ups and continued education and aggressive bowel regimen as outpatient. Resident Activity Tracking Resident Involvement: Resident Care Provided Care Provided: Adult Hospital Medicine
[2023-03-29] MEDS ORDERED: POLYETHYLENE (MIRALAX) 17 GM PACK PO SCH (09:00)
== END 2023-03-28 17:35 | disposition home or self-care (01) | DRG 392 ==
LOC: SUATTDRO → ED 20:28 → SUATTDRO 03-20 01:31 → 2N 03-20 01:31

== ENCOUNTER 2023-04-06 11:49 | Inpatient (IN) ==
--- NOTE | 2023-04-06 12:18 | Emergency Department Note ---
Impression & Plan Respiratory syncytial virus infection, Hypomagnesemia, Hyperglycemia due to type 2 diabetes mellitus, Intractable nausea and vomiting ED Provider Note NAME: ELIAN SORENSEN AGE: 62 SEX: F ARRIVES VIA: Walk-In INFORMANT: Patient ED PROVIDER(S): John Preciado MD CHIEF COMPLAINT: Nausea, vomiting, Cough/congestion PLAN: Disposition: Admit MEDICAL DECISION MAKING: The patient is a pleasant 62-year-old woman with a past medical history of uncontrolled type 2 diabetes, gastroparesis, nephropathy, CHF, V. tach, CAD, NSTEMI, GERD, arthralgias, tobacco use who presents to the emergency department for evaluation of intractable nausea and vomiting which she reports has been ongoing since her discharge following admission from 03/20-03/28 for symptoms of nausea and vomiting related to her gastroparesis and constipation. She reports progressive worsening of cough and congestion in this time with associated shortness of breath. She denies chest pain. She reports she did move her bowels this morning and it was hard and required some straining. On evaluation the patient fatigued appearing, comfortable but no distress, afebrile with heart in the 100s and blood pressure 150s/90s and vital signs otherwise stable. She appears clinically dry. She is generalized abdominal discomfort without discrete tenderness. EKG without overt acute ischemia. Chest x-ray negative for acute cardiopulmonary process. KUB demonstrates nonobstructive bowel gas pattern. WBC, H/H and platelets within normal limits. Glucose was 493 with sodium 131 correcting to 137-140. Chemistry with anion gap of 15 and bicarbonate of 20. Magnesium 1 point 0.3 with IV repletion initiated. LFTs without significant abnormality. High-sensitivity troponin 3.1, within normal limits. Lipase not elevated. RSV PCR was positive. COVID-19 and influenza PCR's were negative. Group A strep PCR was negative. She was initiated with IV fluid hydration, IV Pepcid, Zofran, diphenhydramine, Reglan. Given the patient's uncontrolled diabetes with history of gastroparesis now worsening symptoms in the setting of RSV infection reasonable to proceed with admission for further management. Case was discussed with Dr. Guerrero, [facility] [place], who will evaluate the patient for admission. Triage Nursing notes reviewed and agree them. Prior/external medical records reviewed Vital Signs: reviewed Differential diagnosis: Gastroenteritis, food borne illness, infections, appendicitis, diverticulitis, inflammatory bowel disease, obstruction, GI bleed, biliary pathology, volvulus, as well as other pathologies. ER treatment provided: See below. Diagnostics interpreted by me: ECG: Normal sinus rhythm, 92 bpm, nonspecific ST abnormality, no overt ST elevation or depression, QTc 472, QRS 62. Cardiac Monitoring: An order for continuous cardiac monitoring was placed and demonstrated Normal sinus rhythm, 92 bpm, no ectopy Laboratory studies: See below Imaging studies: See below Consultation(s): Case was discussed with Dr. Guerrero, [facility] hospitalist, who will evaluate the patient for admission. HPI: The patient is a pleasant 62-year-old woman with a past medical history of uncontrolled type 2 diabetes, gastroparesis, nephropathy, CHF, V. tach, CAD, NSTEMI, GERD, arthralgias, tobacco use who presents to the emergency department for evaluation of intractable nausea and vomiting which she reports has been ongoing since her discharge following admission from 03/20-03/28 for symptoms of nausea and vomiting related to her gastroparesis and constipation. She reports progressive worsening of cough and congestion in this time with associated shortness of breath. She denies chest pain. She reports she did move her bowels this morning and it was hard and required some straining. ROS: See above HPI for pertinent positives & negatives. A total of 10 systems reviewed and were otherwise negative. VITALS:See Below PHYSICAL EXAMINATION: GENERAL: Awake, alert, uncomfortable-appearing, in no distress, BMI 30.2 HENT: Normocephalic, atraumatic. Oropharynx with dry mucous membranes and otherwise unremarkable. EYES: Normal conjunctiva. Sclera non-icteric. NECK: Supple. No nuchal rigidity. FROM. No JVD. RESPIRATORY: Clear to auscultation. CARDIAC: Tachycardic rate, normal rhythm. Extremities warm and well perfused. Pulses equal. ABDOMEN: Soft, non-distended. Generalized abdominal discomfort without discrete tenderness to palpation. No rebound or guarding. No masses. RECTAL: Deferred. MUSCULOSKELETAL: Chest examination reveals no tenderness. The back is symmetrical on inspection without obvious abnormality. There is no CVA tenderness to palpation. No joint edema. LOWER EXTREMITIES: Calves are equal size bilaterally and non-tender. No edema. No discoloration. NEURO: Normal sensorium. No sensory or motor deficits noted. SKIN: No rash or jaundice noted. John Preciado MD Past Med/Surg History Medical History CAD (coronary artery disease) No remaining occlusive disease after 2 LAD drug eluting stents 10/22/20. Follows with Dr. Harris Hypertension Hypothyroidism Chronic constipation Diabetes mellitus GERD (gastroesophageal reflux disease) Hyponatremia Vitamin D deficiency Diabetes mellitus type 2 in obese Acute on chronic combined systolic and diastolic CHF (congestive heart failure) Bradycardia with 41-50 beats per minute Hypokalemia Hypomagnesemia Accelerated hypertension Albuminuria Diabetic nephropathy associated with type 2 diabetes mellitus Depression Osteoarthritis Chronic headaches NSTEMI (non-ST elevated myocardial infarction) 10/22/2020 s/p 2 CHANTAL Vulvitis Dyslipidemia Tobacco abuse Obesity Anxiety Surgical History History of cardiac catheterization 10/22/2020 Dominant: Right Left Main (% Stenosis): Normal LAD (% Stenosis): Proximal (99) and Mid (75) Circumflex (% Stenosis): Normal (luminal irregularities) RCA (% Stenosis): Normal (Luminal irregularities) 2 CHANTAL to LAD S/P coronary artery stent placement 2 CHANTAL to LAD 10/22/2020 History of cholecystectomy History of dental surgery History of tonsillectomy Family History Unknown Diabetes Thyroid disorder Father Diabetes Other No family history of adverse response to anesthesia Denies family history of Ovarian cancer Prostate cancer Breast cancer Colorectal cancer Uterine cancer Social History Smoking Status: Current every day smoker Tobacco Type: Cigarettes packs per day: 0.5; Cigarettes Per Day: 10; Second Hand Exposure: No; Do You Dip or Chew Tobacco: No; Hx Alcohol Use: No Hx Substance Use: No Preferred Language: Amharic Communication Ability: Effective Visual Impairment: No Limitations Flower Grower Required: No Beliefs That Will Affect Care: None marital status: Single Current Living Situation: Alone Current Living Situation Comment: lives in trailer current occupational status: disabled How many Children do You have: 0 Feels Safe at Home: Yes Safety Concerns Comment: Gets nervous sometimes because she lives alone, gets shaky from anxiety Diet: regular caffeine: Yes Dental Care, Regularly: No Physical Activity Frequency: Does not Exercise Seatbelt Use: always Sunscreen Use: No Assistive Devices: Walker Allergies Allergies Allergy/AdvReac Type Severity Reaction Status Date / Time dulaglutide [From Trulicity] AdvReac Intermediate stomach Verified 04/06/23 14:38 pain albiglutide [From Tanzeum] AdvReac Unknown CAN'T Verified 04/06/23 14:38 REMEMBER Home Meds Home Medications Medication Instructions Recorded Confirmed blood-glucose meter (Prodigy 10/15/21 02/28/23 Autocode Meter kit) pantoprazole 40 mg tablet,delayed 40 mg PO QAM 12/19/22 04/06/23 release acetaminophen 500 mg tablet 1,000 mg PO Q8H PRN Pain 01/23/23 04/06/23 (Pharbetol) atorvastatin 80 mg tablet 80 mg PO HS 01/23/23 04/06/23 ergocalciferol (vitamin D2) 1,250 50,000 unit PO WK 01/23/23 04/06/23 mcg (50,000 unit) capsule insulin regular hum U-500 conc 500 15 unit subcut BID 01/23/23 04/06/23 unit/mL(3 mL) subcut pen (Humulin R U-500 (Conc) Insulin Kwikpen) spironolactone 25 mg tablet 25 mg PO QAM 01/23/23 04/06/23 diclofenac sodium 1 % topical gel 2 g EXT QID PRN Pain 02/28/23 04/06/23 (Voltaren Arthritis Pain) levothyroxine 88 mcg tablet 88 mcg PO DAILYBB 02/28/23 04/06/23 Previous Rx's Medication Instructions Recorded pen needle, diabetic 32 gauge x #200 ea 06/28/22 532" (BD Ultra-Fine [place] Pen Needle) aspirin 81 mg tablet,delayed 81 mg PO QAM #30 tabs 10/29/22 release sucralfate 100 mg/mL oral 1 g (10 mL) PO AC #1,000 mL 01/31/23 suspension ascorbic acid (vitamin C) 500 mg 1,000 mg (2 x 500 mg) PO QAM #60 02/14/23 tablet (Vitamin C) tabs gabapentin 100 mg capsule 200 mg (2 x 100 mg) PO BID #60 caps 02/14/23 ticagrelor 90 mg tablet (Brilinta) 90 mg PO BID #60 tabs 02/14/23 bupropion HCl 150 mg 24 hr tablet, 150 mg PO QAM 30 days #30 tabs 03/28/23 extended release folic acid 1 mg tablet 1 mg PO QAM #90 tabs 04/04/23 Results & Data (ED) Vital Signs Vital Signs - 24 hr 04/06/23 11:50 Temperature 36.1 C L Temperature Source Temporal Artery Scan Pulse Rate 105 H Respiratory Rate 24 Respiratory Effort / Characteristics Non-Labored Spontaneous Respiratory Depth Normal Respiratory Pattern Regular Blood Pressure 153/95 H Blood Pressure Mean 114 Blood Pressure Position Sitting Pulse Oximetry 99 Oxygen Delivery Method Room Air Sepsis Recent Fever Within 48 Hours No Sepsis New/Unexplained Change in Mental Status N/A Sepsis Action Taken by Nursing No Action Required Laboratory Data Attestation: I reviewed the patient's lab results. 04/06/23 12:30 04/06/23 12:30 Lab Results 04/06/23 04/06/23 04/06/23 Range/Units 11:59 12:20 12:30 WBC 10.32 (4.8-10.8) K/ul RBC 4.63 (4.20-5.40) M/uL Hgb 13.4 (12.0-16.0) g/dl Hct 38.2 (37.0-47.0) % MCV 82.5 (80.0-100.0) fL MCH 28.9 (25.0-34.0) pg MCHC 35.1 (32.0-36.0) g/dL RDW Std Deviation 38.7 (36.4-46.3) fL RDW Coeff of Umair 13.0 (11.5-14.5) % Plt Count 270 (130-400) K/uL MPV 11.2 (9.4-12.4) fL Immature Gran % (Auto) 0.5 % Neut % (Auto) 77.9 % Lymph % (Auto) 12.5 % [place] % (Auto) 6.8 % Eos % (Auto) 1.9 % Baso % (Auto) 0.4 % Neut # (Auto) 8.04 H (1.40-6.50) K/uL Lymph # (Auto) 1.29 (1.20-3.40) K/uL [place] # (Auto) 0.70 H (0.11-0.59) K/uL Eos # (Auto) 0.20 (0.00-0.50) K/uL Baso # (Auto) 0.04 (0.00-0.20) K/uL Immature Gran # (Auto) 0.05 (0.01-0.20) K/uL PT 10.1 (9.0-12.0) Seconds INR 0.9 (0.9-1.1) APTT 23 (21-31) Seconds PTT Ratio 0.8 VBG pH (7.36-7.41) VBG pCO2 (38-50) mmHg VBG pO2 mmHg VBG HCO3 mmol/L VBG O2 Saturation % VBG Base Excess mEq/L Sodium 131 L (136-145) mmol/L Potassium 3.6 (3.5-5.1) mmol/L Chloride 96 L (98-107) mmol/L Carbon Dioxide 20 L (21-32) mmol/L Anion Gap 15 H (3-11) BUN 10 (6-23) mg/dl Creatinine 1.17 (0.6-1.2) mg/dl Est Cr Clr Drug Dosing 44.8 ml/min Est GFR ( Amer) 57.4 ml/min Est GFR (Non-Af Amer) 49.6 ml/min BUN/Creatinine Ratio 8.5 L (10-20) Glucose 493 H* (70-99(Fasting)) mg/dl POC Glucose (70-99) mg/dl Osmolality 300 (280-300) mOsm/kg Calcium 9.5 (8.6-10.3) mg/dl Phosphorus 3.1 (2.5-4.9) mg/dl Magnesium 1.3 L (1.7-2.4) mg/dl Total Bilirubin 0.7 (0.2-1.0) mg/dl Direct Bilirubin 0.1 (0-0.2) mg/dl AST 10 L (13-39) U/L ALT 11 (7-52) U/L Alkaline Phosphatase 147 H (34-104) U/L Troponin I High Sens 3.1 (0-14) pg/ml Total Protein 7.5 (6.0-8.3) gm/dl Albumin 3.8 (3.4-5.0) gm/dl Globulin 3.7 (2.5-4.0) gm/dl Albumin/Globulin Ratio 1.0 (0.9-2) Lipase 3 L (11-82) U/L SARS-CoV-2 (PCR) NEGATIVE (Negative) Influenza Type A (PCR) Negative (Neg) Influenza Type B (PCR) Negative (Neg) RSV (RT-PCR) Positive A (Neg) Group A Strep (PCR) NOT DETECTED (NotDetected) 04/06/23 04/06/23 Range/Units 13:45 13:50 WBC (4.8-10.8) K/ul RBC (4.20-5.40) M/uL Hgb (12.0-16.0) g/dl Hct (37.0-47.0) % MCV (80.0-100.0) fL MCH (25.0-34.0) pg MCHC (32.0-36.0) g/dL RDW Std Deviation (36.4-46.3) fL RDW Coeff of Umair (11.5-14.5) % Plt Count (130-400) K/uL MPV (9.4-12.4) fL Immature Gran % (Auto) % Neut % (Auto) % Lymph % (Auto) % [place] % (Auto) % Eos % (Auto) % Baso % (Auto) % Neut # (Auto) (1.40-6.50) K/uL Lymph # (Auto) (1.20-3.40) K/uL [place] # (Auto) (0.11-0.59) K/uL Eos # (Auto) (0.00-0.50) K/uL Baso # (Auto) (0.00-0.20) K/uL Immature Gran # (Auto) (0.01-0.20) K/uL PT (9.0-12.0) Seconds INR (0.9-1.1) APTT (21-31) Seconds PTT Ratio VBG pH 7.43 H (7.36-7.41) VBG pCO2 30 L (38-50) mmHg VBG pO2 32 mmHg VBG HCO3 20 mmol/L VBG O2 Saturation < 60.0 % VBG Base Excess -3.3 mEq/L Sodium (136-145) mmol/L Potassium (3.5-5.1) mmol/L Chloride (98-107) mmol/L Carbon Dioxide (21-32) mmol/L Anion Gap (3-11) BUN (6-23) mg/dl Creatinine (0.6-1.2) mg/dl Est Cr Clr Drug Dosing ml/min Est GFR ( Amer) ml/min Est GFR (Non-Af Amer) ml/min BUN/Creatinine Ratio (10-20) Glucose (70-99(Fasting)) mg/dl POC Glucose 379 H* (70-99) mg/dl Osmolality (280-300) mOsm/kg Calcium (8.6-10.3) mg/dl Phosphorus (2.5-4.9) mg/dl Magnesium (1.7-2.4) mg/dl Total Bilirubin (0.2-1.0) mg/dl Direct Bilirubin (0-0.2) mg/dl AST (13-39) U/L ALT (7-52) U/L Alkaline Phosphatase (34-104) U/L Troponin I High Sens (0-14) pg/ml Total Protein (6.0-8.3) gm/dl Albumin (3.4-5.0) gm/dl Globulin (2.5-4.0) gm/dl Albumin/Globulin Ratio (0.9-2) Lipase (11-82) U/L SARS-CoV-2 (PCR) (Negative) Influenza Type A (PCR) (Neg) Influenza Type B (PCR) (Neg) RSV (RT-PCR) (Neg) Group A Strep (PCR) (NotDetected) Administered Medications Atorvastatin Calcium (Atorvastatin 40 Mg Tab) 80 mg PO HS TONI Stop: 05/06/23 20:59 Last Admin: 04/06/23 22:05 Dose: 80 mg Documented By: SULEMAN Gabapentin (Gabapentin 100 Mg Cap) 200 mg PO BID TONI Stop: 05/06/23 20:59 Last Admin: 04/06/23 22:05 Dose: 200 mg Documented By: SULEMAN Insulin Aspart (Insulin Aspart Per Unit Charge) 0 units SC [facility] TONI Stop: 05/06/23 22:29 Last Admin: 04/06/23 23:44 Dose: 13 units Documented By: ABHISHEK Co-signed By: SEEMA Magnesium Oxide (Magnesium Oxide 400 Mg Tab) 400 mg PO BID TONI Stop: 05/06/23 20:59 Last Admin: 04/06/23 22:06 Dose: 400 mg Documented By: SULEMAN Sucralfate (Sucralfate 1 Gm/10 Ml Udc) 1 gm PO AC TONI Stop: 05/06/23 16:43 Last Admin: 04/06/23 17:11 Dose: 1 gm Documented By: BILL Ticagrelor (Ticagrelor 90 Mg Tab) 90 mg PO BID TONI Stop: 05/06/23 20:59 Last Admin: 04/06/23 22:05 Dose: 90 mg Documented By: SULEMAN Discontinued Medications Albuterol (Albut/Ipratrop 3mg/0.5mg Neb 3 Ml Vial) 3 ml NEB NOW STA; Protocol Stop: 04/06/23 12:50 Last Admin: 04/06/23 13:03 Dose: 3 ml Documented By: BILL Diphenhydramine HCl (Diphenhydramine 50 Mg/Ml Vial) 25 mg IV NOW STA Stop: 04/06/23 12:50 Last Admin: 04/06/23 13:02 Dose: 25 mg Documented By: BILL Guaifenesin (Guaifenesin 600 Mg Tabcr) 1,200 mg PO NOW STA Stop: 04/06/23 12:50 Last Admin: 04/06/23 12:59 Dose: 1,200 mg Documented By: BILL Sodium Chloride (Nss) 1,000 mls @ 999 mls/hr IV .Q1H1M ONE Stop: 04/06/23 13:23 Last Infusion: 04/06/23 13:47 Dose: Infused Documented By: Admin: 04/06/23 12:32 Dose: 999 mls/hr Documented By: BILL Famotidine (Pepcid 20mg Iv Push) 20 mg in 5 mls @ 2.5 mls/min IV NOW STA Stop: 04/06/23 12:24 Last Admin: 04/06/23 12:32 Dose: 2.5 mls/min Documented By: BILL Magnesium Sulfate/Dextrose (Magnesium Sulfate / D5w) 1 gm in 100 mls @ 100 mls/hr IV Q1H TONI Stop: 04/06/23 15:25 Last Infusion: 04/06/23 16:20 Dose: Infused Documented By: Admin: 04/06/23 14:50 Dose: 100 mls/hr Documented By: Infusion: 04/06/23 14:50 Dose: Infused Documented By: Admin: 04/06/23 13:49 Dose: 100 mls/hr Documented By: BILL Sodium Chloride (Nss) 1,000 mls @ 999 mls/hr IV .Q1H1M ONE Stop: 04/06/23 14:29 Last Infusion: 04/06/23 15:09 Dose: Infused Documented By: Admin: 04/06/23 13:47 Dose: 999 mls/hr Documented By: BILL Lactated Ringer's (Lr) 500 mls @ 999 mls/hr IV .Q31M ONE Stop: 04/06/23 14:40 Last Infusion: 04/06/23 17:10 Dose: Infused Documented By: Admin: 04/06/23 16:34 Dose: 999 mls/hr Documented By: BILL Insulin Human Regular 5 units/ (Syringe) 5 mls @ 30 mls/min IV NOW STA Stop: 04/06/23 14:17 Last Admin: 04/06/23 15:29 Dose: 30 mls/min Documented By: BILL Co-signed By: REGINA Insulin Glargine (Lantus Per Unit Charge) 10 units SQ NOW STA Stop: 04/06/23 14:11 Last Admin: 04/06/23 15:29 Dose: 10 units Documented By: BILL Co-signed By: REGINA Insulin Glargine (Lantus Per Unit Charge) 10 units SQ NOW STA Stop: 04/06/23 22:29 Last Admin: 04/06/23 23:35 Dose: 10 units Documented By: ABHISHEK Co-signed By: SEEMA Metoclopramide HCl (Metoclopramide Hcl Inj 5 Mg/Ml 2 Ml Vial) 5 mg IV ONE ONE Stop: 04/06/23 12:50 Last Admin: 04/06/23 13:01 Dose: 5 mg Documented By: BILL Ondansetron HCl (Ondansetron Inj 2 Mg/Ml 2 Ml Vial) 4 mg IV NOW STA Stop: 04/06/23 12:24 Last Admin: 04/06/23 12:32 Dose: 4 mg Documented By: BILL Sodium Chloride (Sodium Chloride 0.65% Na Soln 45 Ml ([place])) 2 sprays NA NOW ONE Stop: 04/06/23 12:50 Last Admin: 04/06/23 13:49 Dose: 2 sprays Documented By: NRB Imaging Data Radiologist's Impression: Chest X-Ray 04/06/23 12:21 XR chest 1V portable CLINICAL HISTORY: Shortness of breath. COMPARISON STUDY: Chest radiograph March 20, 2023. Chest CT December 19, 2022. FINDINGS: Lung volumes are normal. Lungs are clear. There is no pneumothorax or pleural effusion. Mild cardiomegaly is unchanged. Mediastinal contours are normal. There is no evidence for pulmonary edema. There is no lucency under the hemidiaphragms to suggest pneumoperitoneum on upright chest radiograph. IMPRESSION: No acute cardiopulmonary findings. ACT 112: Negative or not required by law. Electronically signed by: Nahun Odell M.D. 04/06/2023 12:44 PM KUB X-Ray 04/06/23 12:21 KUB CLINICAL HISTORY: Abdominal pain, nausea and vomiting. COMPARISON STUDY: Abdominal series March 20, 2023. CT of the abdomen and pelvis February 28, 2023. FINDINGS: The bowel gas pattern is normal. No evidence for free air on the upright chest radiograph which will be reported separately. There are cholecystectomy clips. Amount of stool is within normal limits. Calcified right uterine fibroid is incidentally noted. IMPRESSION: No evidence for a bowel obstruction. ACT 112: Negative or not required by law. Electronically signed by: Nahun Odell M.D. 04/06/2023 12:45 PM Discharge Plan Visit Data Chief Complaint: Flu Like Symptoms Stated Complaint: VOMITING, SORE THROAT ED Provider: John Preciado Discharge Problem: Respiratory syncytial virus infection, Hypomagnesemia, Hyperglycemia due to type 2 diabetes mellitus, Intractable nausea and vomiting Discharge Instructions Interventions: ED Discharge Assessment Last Done: 04/06/23 16:45 Discharge Problem: Hyperglycemia due to type 2 diabetes mellitus Qualifiers: Diabetes mellitus long-term insulin use: with long-term use Qualified Code(s): E11.65 - Type 2 diabetes mellitus with hyperglycemia; Z79.4 - correction (current) use of insulin
[2023-04-06] MEDS: SODIUM CHLORIDE 0.9% 1,000 ML IV ONE ×2 (12:32→13:47)
[2023-04-06] MEDS: FAMOTIDINE 20MG IV PUSH 20 MG/5 ML SYR IV STA (12:32)
[2023-04-06] MEDS: ONDANSETRON INJ 2 MG/ML 2 ML VIAL IV STA (12:32)
[2023-04-06 12:44] LABS: Basophils # (auto) 0.04 K/uL (0.00-0.20); Basophils % (auto) 0.4 %; Eosinophils % (auto) 1.9 %; Hematocrit (blood only) 38.2 % (37.0-47.0); Hemoglobin 13.4 g/dl (12.0-16.0); Immature Granulocytes # (auto) 0.05 K/uL (0.01-0.20); Immature Granulocytes % (auto) 0.5 %; Lymphocytes # (auto) 1.29 K/uL (1.20-3.40); Lymphocytes % (auto) 12.5 %; Mean Corpuscular Hemoglobin 28.9 pg (25.0-34.0); Mean Corpuscular Hgb Conc 35.1 g/dL (32.0-36.0); Mean Corpuscular Volume 82.5 fL (80.0-100.0); Mean Platelet Volume 11.2 fL (9.4-12.4); Monocytes % (auto) 6.8 %; Neutrophils # (auto) 8.04 K/uL (1.40-6.50); Neutrophils % (auto) 77.9 %; Platelet Count 270 K/uL (130-400); RDW Standard Deviation 38.7 fL (36.4-46.3); Red Blood Count 4.63 M/uL (4.20-5.40); White Blood Count 10.32 K/ul (4.8-10.8)
--- NOTE | 2023-04-06 12:45 | XRay Report ---
XR chest 1V portable CLINICAL HISTORY: Shortness of breath. COMPARISON STUDY: Chest radiograph March 20, 2023. Chest CT December 19, 2022. FINDINGS: Lung volumes are normal. Lungs are clear. There is no pneumothorax or pleural effusion. Mil d cardiomegaly is unchanged. Mediastinal contours are normal. There is no evidence for pulmonary tasia a. There is no lucency under the hemidiaphragms to suggest pneumoperitoneum on upright chest radiogra ph. IMPRESSION: No acute cardiopulmonary findings. ACT 112: Negative or not required by law. Electronically signed by: Nahun Odell M.D. 04/06/2023 12:44 PM
--- NOTE | 2023-04-06 12:46 | XRay Report ---
KUB CLINICAL HISTORY: Abdominal pain, nausea and vomiting. COMPARISON STUDY: Abdominal series March 20, 2023. CT of the abdomen and pelvis February 28, 2023. FINDINGS: The bowel gas pattern is normal. No evidence for free air on the upright chest radiograph w hich will be reported separately. There are cholecystectomy clips. Amount of stool is within normal l imits. Calcified right uterine fibroid is incidentally noted. IMPRESSION: No evidence for a bowel obstruction. ACT 112: Negative or not required by law. Electronically signed by: Nahun Odell M.D. 04/06/2023 12:45 PM
[2023-04-06 12:55] LABS: Influenza A virus by PCR Negative (Neg); Influenza B virus by PCR Negative (Neg); RSV by PCR Positive (Neg); SARS CoV2 RNA(COVID-19) Ceph NEGATIVE (Negative)
[2023-04-06] MEDS: guaiFENesin 600 MG TABCR PO STA (12:59)
[2023-04-06] MEDS: METOCLOPRAMIDE HCL INJ 5 MG/ML 2 ML VIAL IV ONE (13:01)
[2023-04-06] MEDS: diphenhydrAMINE 50 MG/ML VIAL IV STA (13:02)
[2023-04-06] MEDS: ALBUT/IPRATROP 3MG/0.5MG NEB 3 ML VIAL NEB STA (13:03)
[2023-04-06 13:07] LABS: Albumin Level 3.8 gm/dl (3.4-5.0); BUN Creatinine Ratio 8.5 (10-20); Bilirubin Direct 0.1 mg/dl (0-0.2); Bilirubin,Total 0.7 mg/dl (0.2-1.0); Calcium 9.5 mg/dl (8.6-10.3); Creatinine Clr Calc Pharmacy 44.8 ml/min; Est GFR (African American) 57.4 ml/min; Est GFR (Non-African American) 49.6 ml/min; Globulin 3.7 gm/dl (2.5-4.0); Magnesium 1.3 mg/dl (1.7-2.4); Phosphorus 3.1 mg/dl (2.5-4.9); Potassium 3.6 mmol/L (3.5-5.1); Total Protein 7.5 gm/dl (6.0-8.3)
[2023-04-06 13:10] LABS: Troponin I High Sensitivity 3.1 pg/ml (0-14)
[2023-04-06 13:21] LABS: INR 0.9 (0.9-1.1); Partial Thromboplastin Ratio 0.8; Partial Thromboplastin Time 23 Seconds (21-31); Prothrombin Time 10.1 Seconds (9.0-12.0)
--- NOTE | 2023-04-06 13:48 | History & Physical Report ---
Date of Service April 06, 2023 Assessment & Plan (1) RSV (respiratory syncytial virus infection): Plan: Shortness of breath, cough 2/2 RSV RSV positive on admission Abdomen is soft. KUB without evidence of bowel obstruction CXR no acute finding Admitted with supportive care. Pepcid, PPI, pain control, albuterol Clinically volume contracted, received 2 L NSS while in the ER. (2) Nausea & vomiting: Plan: Nausea/vomiting With history of similar with constipation and gastroparesis.? Exacerbation with viral illness Abdomen is soft, no rebound/guarding. CT deferred Continue MiraLAX, as needed Colace/senna Patient is scheduled for follow-up colonoscopy as outpatient in April Antiemetic treatment as noted. (3) CAD (coronary artery disease): Plan: History of CAD, LAD PCI, heart failure preserved ejection fraction Last echo 12/2022 with EF 60 to 65%, grade 1 diastolic dysfunction, mild MR, mild TR Troponin is normal on admission EKG without acute territorial ischemic changes on admission Continue aspirin, Brilinta. Patient is not on ELHAM/ARB/beta-elizabeth due to history of hypotension History of torsades Optimize magnesium 2.0. Magnesium 1.3 on admission, 2 g IV magnesium ordered Continue magnesium orally daily Recheck magnesium at 5 PM, if less than 2.0 --> +1g additional. IV daily transition and continue oral repletion to minimize urinary clearance (4) Anxiety: Plan: Anxiety/depression Continue home meds (5) Diabetes type 2, uncontrolled: Plan: Poorly controlled type II DM Post fluid BSG 379. Receiving 5 units IV insulin and home glargine restarted Basal bolus SSI, 10 units nightly (6) Hypothyroidism: Plan: Hypothyroidism Continue Synthroid (7) Hypertension: Plan: HTN - Spironolactone continued. No SAMRA or hyperkalemia. History of Present Illness Primary Care Provider: DO Yaritza Sandersa is a 62-year-old female with a past medical history of NSTEMI with LAD PCI, type II DM, torsades, hypothyroidism, GERD who presents to the ER with 2 days of sore throat, shortness of breath, nausea, and nonbloody vomiting. Yolanda is seen at the bedside. She reports that since returning home she has continued to feel poorly and be constipated. She was a little more fatigued yesterday, starting this morning she has developed a sore throat, shortness of breath, and dry cough. She is not able to eat and drink at home and feels her appetite has been greatly diminished. She has not taken insulin today, did take insulin last night. She feels that she is still very constipated and straining to have a bowel movement, and at the same time is not had good oral intake. She feels weak. She denies chest pain, chest pressure, neck and jaw pain. She reports mild diffuse abdominal tenderness without focal or severe tenderness Medical History: Reviewed Medications: Reviewed Surgical History: Reviewed Family history: Reviewed Allergies: Reviewed Social History: Reviewed Code Status: Full. Due to patient previously conditional code, discussed nature of resuscitation and events to be successful and that if she would prefer to avoid a breathing tube in the extreme circumstance that she had already often patients would prefer to be allowed to pass consistent with DNR/DNI, versus if it were important to take all efforts to bring her back/resuscitate her that CPR is often unsuccessful without the support of intubation. After a/manage discussion patient reports that is important to her that if she were to clinically that efforts be taken to attempt to revive her even if these included a breathing tube, as such we will up date CODE STATUS to full code Allergies Allergy/AdvReac Type Severity Reaction Status Date / Time dulaglutide [From Trulicity] AdvReac Intermediate stomach Verified 04/06/23 14:38 pain albiglutide [From Tanzeum] AdvReac Unknown CAN'T Verified 04/06/23 14:38 REMEMBER Home Medications Medication Instructions Recorded Confirmed Type blood-glucose meter (Prodigy 10/15/21 02/28/23 History Autocode Meter kit) pen needle, diabetic 32 gauge x #200 ea 06/28/22 02/28/23 Rx 5/32" (BD Ultra-Fine [place] Pen Needle) aspirin 81 mg tablet,delayed 81 mg PO QAM #30 tabs 10/29/22 04/06/23 Rx release pantoprazole 40 mg tablet,delayed 40 mg PO QAM 12/19/22 04/06/23 History release acetaminophen 500 mg tablet 1,000 mg PO Q8H PRN Pain 01/23/23 04/06/23 History (Pharbetol) atorvastatin 80 mg tablet 80 mg PO HS 01/23/23 04/06/23 History ergocalciferol (vitamin D2) 1,250 50,000 unit PO WK 01/23/23 04/06/23 History mcg (50,000 unit) capsule insulin regular hum U-500 conc 500 15 unit subcut BID 01/23/23 04/06/23 History unit/mL(3 mL) subcut pen (Humulin R U-500 (Conc) Insulin Kwikpen) spironolactone 25 mg tablet 25 mg PO QAM 01/23/23 04/06/23 History sucralfate 100 mg/mL oral 1 g (10 mL) PO AC #1,000 mL 01/31/23 04/06/23 Rx suspension ascorbic acid (vitamin C) 500 mg 1,000 mg (2 x 500 mg) PO QAM #60 02/14/23 04/06/23 Rx tablet (Vitamin C) tabs gabapentin 100 mg capsule 200 mg (2 x 100 mg) PO BID #60 caps 02/14/23 04/06/23 Rx ticagrelor 90 mg tablet (Brilinta) 90 mg PO BID #60 tabs 02/14/23 04/06/23 Rx diclofenac sodium 1 % topical gel 2 g EXT QID PRN Pain 02/28/23 04/06/23 History (Voltaren Arthritis Pain) levothyroxine 88 mcg tablet 88 mcg PO DAILYBB 02/28/23 04/06/23 History bupropion HCl 150 mg 24 hr tablet, 150 mg PO QAM 30 days #30 tabs 03/28/23 04/06/23 Rx extended release folic acid 1 mg tablet 1 mg PO QAM #90 tabs 04/04/23 04/06/23 Rx Past Med/Surg History Medical History (Updated 04/06/23 @ 15:38 by John Preciado MD) CAD (coronary artery disease) No remaining occlusive disease after 2 LAD drug eluting stents 10/22/20. Follows with Dr. Harris Hypertension Hypothyroidism Chronic constipation Diabetes mellitus GERD (gastroesophageal reflux disease) Hyponatremia Vitamin D deficiency Diabetes mellitus type 2 in obese Acute on chronic combined systolic and diastolic CHF (congestive heart failure) Bradycardia with 41-50 beats per minute Hypokalemia Hypomagnesemia Accelerated hypertension Albuminuria Diabetic nephropathy associated with type 2 diabetes mellitus Depression Osteoarthritis Chronic headaches NSTEMI (non-ST elevated myocardial infarction) 10/22/2020 s/p 2 CHANTAL Vulvitis Dyslipidemia Tobacco abuse Obesity Anxiety Surgical History History of cardiac catheterization 10/22/2020 Dominant: Right Left Main (% Stenosis): Normal LAD (% Stenosis): Proximal (99) and Mid (75) Circumflex (% Stenosis): Normal (luminal irregularities) RCA (% Stenosis): Normal (Luminal irregularities) 2 CHANTAL to LAD S/P coronary artery stent placement 2 CHANTAL to LAD 10/22/2020 History of cholecystectomy History of dental surgery History of tonsillectomy Family History Unknown Diabetes Thyroid disorder Father Diabetes Other No family history of adverse response to anesthesia Denies family history of Ovarian cancer Prostate cancer Breast cancer Colorectal cancer Uterine cancer Social History Smoking Status: Current every day smoker Tobacco Type: Cigarettes packs per day: 0.5; Cigarettes Per Day: 10; Second Hand Exposure: No; Do You Dip or Chew Tobacco: No; Hx Alcohol Use: No Hx Substance Use: No Preferred Language: Citizen Of [place] Communication Ability: Effective Visual Impairment: No Limitations Derrick Operator Required: No Beliefs That Will Affect Care: None marital status: Single Current Living Situation: Alone Current Living Situation Comment: lives in trailer current occupational status: disabled How many Children do You have: 0 Feels Safe at Home: Yes Safety Concerns Comment: Gets nervous sometimes because she lives alone, gets shaky from anxiety Diet: regular caffeine: Yes Dental Care, Regularly: No Physical Activity Frequency: Does not Exercise Seatbelt Use: always Sunscreen Use: No Assistive Devices: Walker Physical Exam Physical Exam: General: A&Ox3. NAD. Cooperative. HEENT: Atraumatic, normocephalic. Pulm: CTAB A&P. -wheezes, -rales, -rhonchi. Symmetrical chest rise. No increased work of breathing. No respiratory distress. Cardiac: RRR, -mrg. Radial pulses intact and symmetrical. Abdominal: Soft, no rebound/guarding, no focal tenderness Results & Data Results & Data Vital Signs (Past 12 Hours) Vital Signs Temp Pulse Resp BP Pulse Ox O2 Del Method 04/06/23 11:50 36.1 C L 105 H 24 153/95 H 99 Room Air PG Care Time/CCT Total # of Minutes Spent Total Time Spent with Patient: Total time spent is greater than 50% in coordination of care (as documented) at patient's floor/unit and/or counseling patient: Coding Level of Care Code 90176 INT INP/OBS CARE 3/75MIN Diagnoses RSV (respiratory syncytial virus infection) B33.8 Nausea & vomiting R11.2 Coronary artery disease involving [place] coronary artery of [place] heart, unspecified whether angina present I25.10 Associated angina: unspecified whether angina present Coronary Disease-Associated Artery/Lesion type: [place] artery [place] vs. transplanted heart: [place] heart Anxiety F41.9 Diabetes type 2, uncontrolled E11.65 Hypothyroidism, unspecified type E03.9 Hypothyroidism type: unspecified Hypertension I10 (3) CAD (coronary artery disease) Associated angina: unspecified whether angina present Coronary Disease- Associated Artery/Lesion type: [place] artery [place] vs. transplanted heart: [place] heart Qualified Code(s): I25.10 - Atherosclerotic heart disease of [place] coronary artery without angina pectoris (6) Hypothyroidism Hypothyroidism type: unspecified Qualified Code(s): E03.9 - Hypothyroidism, unspecified
[2023-04-06] MEDS: SODIUM CHLORIDE 0.65% NA SOLN 45 ML (OCEAN) ONE (13:49)
[2023-04-06] MEDS: MAGNESIUM SULFATE / D5W 1 GM/100 ML BAG IV SCH (13:49)
[2023-04-06 13:58] LABS: Base Excess VBG -3.3 mEq/L; HCO3 VBG 20 mmol/L; Oxygen Saturation VBG < 60.0 %; PCO2 VBG 30 mmHg (38-50); PO2 VBG 32 mmHg; pH VBG 7.43 (7.36-7.41)
[2023-04-06] MEDS ORDERED: NovoLIN-R INSULIN PER UNIT CHARGE IV STA (14:10)
[2023-04-06] MEDS ORDERED: ALBUT/IPRATROP 3MG/0.5MG NEB 3 ML VIAL NEB PRN (14:13)
[2023-04-06] MEDS: INSULIN HUMAN REGULAR PER UNIT 5 UNITS in SYRINGE 4.95 ML IV STA (15:29)
[2023-04-06] MEDS: LANTUS PER UNIT CHARGE SQ STA ×2 (15:29→23:35)
[2023-04-06] MEDS: LACTATED RINGER'S 500 ML IV ONE (16:34)
[2023-04-06] MEDS: SUCRALFATE 1 GM/10 ML UDC PO SCH (17:11)
[2023-04-06] MEDS ORDERED: GLUCAGON FOR INJ 1 MG VIAL IM PRN (18:00)
[2023-04-06] MEDS ORDERED: CARBOHYDRATES FOR HYPOGLYCEMIA PO PRN (18:00)
[2023-04-06] MEDS ORDERED: GLUCOSE 40% GEL 15 GM TUBE PO PRN (18:00)
[2023-04-06] MEDS ORDERED: GLUCOSE 10 TAB/TUBE PO PRN (18:00)
[2023-04-06] MEDS: TICAGRELOR 90 MG TAB PO SCH (22:05)
[2023-04-06] MEDS: GABAPENTIN 100 MG CAP PO SCH (22:05)
[2023-04-06] MEDS: ATORVASTATIN 40 MG TAB PO SCH (22:05)
[2023-04-06] MEDS: MAGNESIUM OXIDE 400 MG TAB PO SCH (22:06)
[2023-04-06] MEDS: INSULIN ASPART PER UNIT CHARGE SC SCH (23:44)
[2023-04-07 04:16] LABS: Basophils # (auto) 0.02 K/uL (0.00-0.20); Basophils % (auto) 0.2 %; Eosinophils % (auto) 4.6 %; Hematocrit (blood only) 32.5 % (37.0-47.0); Hemoglobin 10.9 g/dl (12.0-16.0); Immature Granulocytes # (auto) 0.04 K/uL (0.01-0.20); Immature Granulocytes % (auto) 0.5 %; Lymphocytes # (auto) 2.03 K/uL (1.20-3.40); Lymphocytes % (auto) 23.4 %; Mean Corpuscular Hemoglobin 28.5 pg (25.0-34.0); Mean Corpuscular Hgb Conc 33.5 g/dL (32.0-36.0); Mean Corpuscular Volume 85.1 fL (80.0-100.0); Mean Platelet Volume 11.1 fL (9.4-12.4); Monocytes # (auto) 0.72 K/uL (0.11-0.59); Monocytes % (auto) 8.3 %; Neutrophils # (auto) 5.45 K/uL (1.40-6.50); Platelet Count 220 K/uL (130-400); RDW Coefficient of Variation 13.2 % (11.5-14.5); RDW Standard Deviation 40.6 fL (36.4-46.3); Red Blood Count 3.82 M/uL (4.20-5.40); White Blood Count 8.66 K/ul (4.8-10.8)
[2023-04-07 04:29] LABS: BUN Creatinine Ratio 10.9 (10-20); Calcium 8.7 mg/dl (8.6-10.3); Creatinine Clr Calc Pharmacy 51.9 ml/min; Est GFR (African American) 68.6 ml/min; Est GFR (Non-African American) 59.2 ml/min; Magnesium 1.8 mg/dl (1.7-2.4); Potassium 3.2 mmol/L (3.5-5.1)
[2023-04-07] MEDS: LEVOTHYROXINE SODIUM 88 MCG TABLET PO SCH (06:04)
[2023-04-07] MEDS: ACETAMINOPHEN 325 MG TAB PO PRN (06:06)
--- NOTE | 2023-04-07 07:02 | Electrocardiogram Report ---
Test Reason : Blood Pressure : / mmHG Vent. Rate : 092 BPM Atrial Rate : 092 BPM P-R Int : 138 ms QRS Dur : 062 ms QT Int : 382 ms P-R-T Axes : 067 061 061 degrees QTc Int : 472 ms Normal sinus rhythm Nonspecific ST abnormality Abnormal ECG When compared with ECG of 22-MAR-2023 14:02, No significant change Confirmed by Macho Gates ([id number]) on 04/07/2023 7:01:55 AM Referred By: Confirmed By:Macho Gates
[2023-04-07] MEDS: PANTOprazole 40 MG TAB PO SCH (09:35)
[2023-04-07] MEDS: SPIRONOLACTONE 25 MG TAB PO SCH (09:35)
--- NOTE | 2023-04-07 09:35 | Hospitalist Progress Note ---
Date of Service April 07, 2023 Assessment & Plan (1) RSV (respiratory syncytial virus infection): Plan: Shortness of breath, cough 2/2 RSV bronchitis RSV positive on admission Abdomen is soft. KUB without evidence of bowel obstruction CXR no pneumonia (2) Nausea & vomiting: Plan: Nausea/vomiting resolved, has long gi history With history of similar with constipation and gastroparesis.? Exacerbation with viral illness Abdomen is soft, no rebound/guarding. CT deferred Continue MiraLAX, as needed Colace/senna Patient is scheduled for follow-up colonoscopy as outpatient in April Antiemetic treatment as noted. (3) CAD (coronary artery disease): Plan: History of CAD, LAD PCI, heart failure preserved ejection fraction Last echo 12/2022 with EF 60 to 65%, grade 1 diastolic dysfunction, mild MR, mild TR Troponin is normal on admission EKG without acute territorial ischemic changes on admission Continue aspirin, Brilinta. Patient is not on ELHAM/ARB/beta-elizabeth due to history of hypotension History of torsades continue to monitor and replete electrolytes , potassium and magnesium given 04/07/23 (4) Anxiety: Plan: Anxiety/depression Continue home meds (5) Diabetes type 2, uncontrolled: Plan: Poorly controlled type II DM Post fluid BSG 379. Receiving 5 units IV insulin and home glargine restarted Basal bolus SSI, try to adjust ssi (6) Hypothyroidism: Plan: Hypothyroidism chronic and stable Continue Synthroid (7) Hypertension: Plan: HTN - Spironolactone continued. No SAMRA or hyperkalemia. Admission and Anticipated Discharge Date Admission Date: April 06, 2023 Subjective Pt has a loose and productive cough some acute shortness of breath over baseline Physical Exam Physical Exam: pt has loose productive cough bronchial breath sounds but no focal loss or wheeze Results & Data Results & Data Vital Signs (Past 12 Hours) Vital Signs Pulse Resp BP Pulse Ox O2 Del Method 04/07/23 06:04 67 19 100/52 L 99 Room Air 04/07/23 01:12 82 18 134/78 94 Room Air 04/06/23 22:00 74 22 110/61 98 Room Air Laboratory Results Reviewed chemistry reviewed CBC PG Care Time/CCT Total # of Minutes Spent Total Time Spent with Patient: Total time spent is greater than 50% in coordination of care (as documented) at patient's floor/unit and/or counseling patient: Coding Level of Care Code 62803 SUB INP/OBS CARE 50MIN Diagnoses RSV (respiratory syncytial virus infection) B33.8 Nausea & vomiting R11.2 Coronary artery disease involving [place] coronary artery of [place] heart, unspecified whether angina present I25.10 Associated angina: unspecified whether angina present Coronary Disease-Associated Artery/Lesion type: [place] artery [place] vs. transplanted heart: [place] heart Anxiety F41.9 Diabetes type 2, uncontrolled E11.65 Hypothyroidism, unspecified type E03.9 Hypothyroidism type: unspecified Hypertension I10 (3) CAD (coronary artery disease) Associated angina: unspecified whether angina present Coronary Disease- Associated Artery/Lesion type: [place] artery [place] vs. transplanted heart: [place] heart Qualified Code(s): I25.10 - Atherosclerotic heart disease of [place] coronary artery without angina pectoris (6) Hypothyroidism Hypothyroidism type: unspecified Qualified Code(s): E03.9 - Hypothyroidism, unspecified
[2023-04-07] MEDS: HEPARIN SOD 5,000 UNIT/0.5 ML VIAL SQ SCH (09:36)
[2023-04-07] MEDS: ASPIRIN 81 MG ECTAB PO SCH (09:36)
[2023-04-07] MEDS: FOLIC ACID 1 MG TAB PO SCH (09:36)
[2023-04-07] MEDS: buPROPion XL 150 MG TABCR PO SCH (09:36)
[2023-04-07] MEDS: POTASSIUM CHLORIDE CRTAB 20 MEQ TABCR PO SCH (11:10)
[2023-04-07] MEDS: POTASSIUM CHLORIDE / WTR 10 MEQ/100 ML PLCT IV SCH (11:15)
[2023-04-07] MEDS: MAGNESIUM SULFATE / D5W 1 GM/100 ML BAG IV ONE (11:15)
[2023-04-07] MEDS: CETIRIZINE HCL 10 MG TABLET PO ONE (14:22)
[2023-04-07] MEDS: NICOTINE 21 MG/24 HR TDSY TD SCH (14:22)
[2023-04-07] MEDS: ALBUT/IPRATROP 3MG/0.5MG NEB 3 ML VIAL NEB SCH (16:14)
[2023-04-07] MEDS: LANTUS PER UNIT CHARGE SQ SCH (22:09)
[2023-04-08 07:51] LABS: Basophils # (auto) 0.03 K/uL (0.00-0.20); Basophils % (auto) 0.4 %; Eosinophils # (auto) 0.43 K/uL (0.00-0.50); Eosinophils % (auto) 5.1 %; Hematocrit (blood only) 34.3 % (37.0-47.0); Hemoglobin 11.3 g/dl (12.0-16.0); Immature Granulocytes # (auto) 0.03 K/uL (0.01-0.20); Immature Granulocytes % (auto) 0.4 %; Lymphocytes # (auto) 1.66 K/uL (1.20-3.40); Lymphocytes % (auto) 19.8 %; Mean Corpuscular Hemoglobin 28.5 pg (25.0-34.0); Mean Corpuscular Hgb Conc 32.9 g/dL (32.0-36.0); Mean Corpuscular Volume 86.4 fL (80.0-100.0); Mean Platelet Volume 11.5 fL (9.4-12.4); Monocytes # (auto) 0.61 K/uL (0.11-0.59); Monocytes % (auto) 7.3 %; Neutrophils # (auto) 5.62 K/uL (1.40-6.50); Platelet Count 179 K/uL (130-400); RDW Coefficient of Variation 13.2 % (11.5-14.5); RDW Standard Deviation 41.4 fL (36.4-46.3); Red Blood Count 3.97 M/uL (4.20-5.40); White Blood Count 8.38 K/ul (4.8-10.8)
[2023-04-08 08:37] LABS: BUN Creatinine Ratio 12.7 (10-20); Calcium 8.7 mg/dl (8.6-10.3); Creatinine Clr Calc Pharmacy 51.4 ml/min; Est GFR (African American) 67.8 ml/min; Est GFR (Non-African American) 58.5 ml/min; Potassium 4.4 mmol/L (3.5-5.1)
[2023-04-08] MEDS: LANTUS PER UNIT CHARGE SQ SCH (09:11)
--- NOTE | 2023-04-08 18:38 | Hospitalist Progress Note ---
Date of Service April 08, 2023 Assessment & Plan (1) RSV (respiratory syncytial virus infection): Plan: Shortness of breath, cough 2/2 RSV bronchitis RSV positive on admission CXR no pneumonia supportive care, steroids, cough suppression larisa (2) Nausea & vomiting: Plan: Nausea/vomiting resolved, has long gi history With history of similar with constipation and gastroparesis.? Exacerbation with viral illness Abdomen is soft, no rebound/guarding. CT deferred Continue MiraLAX, as needed Colace/senna Patient is scheduled for follow-up colonoscopy as outpatient in April Antiemetic treatment as noted. (3) CAD (coronary artery disease): Plan: History of CAD, LAD PCI, heart failure preserved ejection fraction Last echo 12/2022 with EF 60 to 65%, grade 1 diastolic dysfunction, mild MR, mild TR Troponin is normal on admission EKG without acute territorial ischemic changes on admission Continue aspirin, Brilinta. Patient is not on ELHAM/ARB/beta-elizabeth due to history of hypotension History of torsades continue to monitor and replete electrolytes , potassium and magnesium given 04/07/23 (4) Anxiety: Plan: Anxiety/depression Continue home meds (5) Diabetes type 2, uncontrolled: Plan: Poorly controlled type II DM Post fluid BSG 379. Receiving 5 units IV insulin and home glargine restarted, refused glargine in pm 04/07, restarted and accepted in am 04/08 Basal bolus SSI, also adjust ssi (6) Hypothyroidism: Plan: Hypothyroidism chronic and stable Continue Synthroid (7) Hypertension: Plan: HTN - Spironolactone continued. No SAMRA or hyperkalemia. Plan Pt/OT eval ordered Admission and Anticipated Discharge Date Admission Date: April 06, 2023 Subjective Pt has a frequent non productive cough some acute shortness of breath over baseline glucose control is suboptimal Physical Exam Physical Exam: pt has non productive but frequent cough bronchial breath sounds but no focal loss or wheeze Results & Data Results & Data Vital Signs (Past 12 Hours) Vital Signs Temp Pulse Pulse Resp BP BP Pulse Ox 04/08/23 17:28 18 04/08/23 17:02 98.2 F 83 18 115/76 96 04/08/23 16:39 77 20 118/66 97 04/08/23 15:09 82 04/08/23 14:00 77 25 H 04/08/23 13:00 71 22 04/08/23 12:00 84 18 04/08/23 11:00 74 19 04/08/23 10:00 88 20 04/08/23 09:00 89 22 04/08/23 08:21 84 04/08/23 08:00 78 19 04/08/23 07:41 120/62 04/08/23 07:41 71 23 95 04/08/23 07:02 82 15 97 04/08/23 06:52 67 18 95 O2 Del Method 04/08/23 17:28 Room Air 04/08/23 17:02 Room Air 04/08/23 16:39 Room Air 04/08/23 15:09 04/08/23 14:00 04/08/23 13:00 04/08/23 12:00 04/08/23 11:00 04/08/23 10:00 04/08/23 09:00 04/08/23 08:21 04/08/23 08:00 04/08/23 07:41 04/08/23 07:41 04/08/23 07:02 04/08/23 06:52 Room Air Laboratory Results review cbc review prp PG Care Time/CCT Total # of Minutes Spent Total Time Spent with Patient: Total time spent is greater than 50% in coordination of care (as documented) at patient's floor/unit and/or counseling patient: Coding Level of Care Code 39630 SUB INP/OBS CARE 2/35MIN Diagnoses RSV (respiratory syncytial virus infection) B33.8 Nausea & vomiting R11.2 Coronary artery disease involving [place] coronary artery of [place] heart, unspecified whether angina present I25.10 Coronary Disease-Associated Artery/Lesion type: [place] artery [place] vs. transplanted heart: [place] heart Associated angina: unspecified whether angina present Anxiety F41.9 Diabetes type 2, uncontrolled E11.65 Hypothyroidism, unspecified type E03.9 Hypothyroidism type: unspecified Hypertension I10 (3) CAD (coronary artery disease) Coronary Disease-Associated Artery/Lesion type: [place] artery [place] vs. transplanted heart: [place] heart Associated angina: unspecified whether angina present Qualified Code(s): I25.10 - Atherosclerotic heart disease of [place] coronary artery without angina pectoris (6) Hypothyroidism Hypothyroidism type: unspecified Qualified Code(s): E03.9 - Hypothyroidism, unspecified
[2023-04-08] MEDS: BENZONATATE 100 MG CAPSULE PO SCH (21:41)
[2023-04-09 06:31] LABS: Basophils # (auto) 0.02 K/uL (0.00-0.20); Basophils % (auto) 0.3 %; Eosinophils # (auto) 0.39 K/uL (0.00-0.50); Eosinophils % (auto) 6.5 %; Hematocrit (blood only) 33.9 % (37.0-47.0); Hemoglobin 11.5 g/dl (12.0-16.0); Immature Granulocytes # (auto) 0.03 K/uL (0.01-0.20); Immature Granulocytes % (auto) 0.5 %; Lymphocytes # (auto) 1.57 K/uL (1.20-3.40); Lymphocytes % (auto) 26.1 %; Mean Corpuscular Hgb Conc 33.9 g/dL (32.0-36.0); Mean Corpuscular Volume 85.6 fL (80.0-100.0); Mean Platelet Volume 11.4 fL (9.4-12.4); Monocytes # (auto) 0.49 K/uL (0.11-0.59); Monocytes % (auto) 8.1 %; Neutrophils # (auto) 3.52 K/uL (1.40-6.50); Neutrophils % (auto) 58.5 %; Platelet Count 173 K/uL (130-400); RDW Standard Deviation 40.4 fL (36.4-46.3); Red Blood Count 3.96 M/uL (4.20-5.40); White Blood Count 6.02 K/ul (4.8-10.8)
[2023-04-09 06:53] LABS: BUN Creatinine Ratio 13.7 (10-20); Calcium 9.1 mg/dl (8.6-10.3); Creatinine Clr Calc Pharmacy 55.4 ml/min; Est GFR (African American) 73.9 ml/min; Est GFR (Non-African American) 63.7 ml/min; Potassium 4.2 mmol/L (3.5-5.1)
[2023-04-09] MEDS: AZITHROMYCIN 250 MG TAB PO ONE (12:53)
[2023-04-09] MEDS: POLYETHYLENE (MIRALAX) 17 GM PACK PO ONE (12:54)
[2023-04-09] MEDS: methylPREDNISolone 40 MG in SYRINGE 0 ML IV SCH (12:54)
--- NOTE | 2023-04-09 20:18 | Hospitalist Progress Note ---
Date of Service April 09, 2023 Assessment & Plan (1) RSV (respiratory syncytial virus infection): Plan: Shortness of breath, cough 2/2 RSV bronchitis persistence is likely secondary to her RSV status Remains on azithromycin for secondary anti-inflammatory effects from her chronic respiratory failure Formally diagnosed with COPD and history of tobacco abuse and CXR no pneumonia supportive care, steroids, cough suppression tessalon and codiene (2) Nausea & vomiting: Plan: Nausea/vomiting resolved, has long gi history With history of similar with constipation and gastroparesis.? Exacerbation with viral illness Continue MiraLAX, as needed Colace/senna Patient is scheduled for follow-up colonoscopy as outpatient in April Antiemetic treatment as noted. (3) CAD (coronary artery disease): Plan: History of CAD, LAD PCI, heart failure preserved ejection fraction Last echo 12/2022 with EF 60 to 65%, grade 1 diastolic dysfunction, mild MR, mild TR Troponin is normal on admission EKG without acute territorial ischemic changes on admission Continue aspirin, Brilinta. Patient is not on ELHAM/ARB/beta-elizabeth due to history of hypotension History of torsades continue to monitor and replete electrolytes , potassium and magnesium given 04/07/23 (4) Anxiety: Plan: Anxiety/depression Continue home meds (5) Diabetes type 2, uncontrolled: Plan: Poorly controlled type II DM Post fluid BSG 379. Receiving 5 units IV insulin and home glargine restarted, refused glargine in pm 04/07, restarted and accepted in am 04/08 Basal bolus SSI, also adjust ssi (6) Hypothyroidism: Plan: Hypothyroidism chronic and stable Continue Synthroid (7) Hypertension: Plan: HTN - Spironolactone continued. No SAMRA or hyperkalemia. Plan Pt/OT eval ordered Admission and Anticipated Discharge Date Admission Date: April 06, 2023 Subjective Pt has a frequent non productive cough, cough is her biggest complaint some acute shortness of breath over baseline glucose control is suboptimal, now high with steroid use Physical Exam Physical Exam: pt has non productive but frequent cough no focal loss or wheeze Coarse breath sounds are heard in all lung bradley Results & Data Results & Data Vital Signs (Past 12 Hours) Vital Signs Temp Pulse Pulse Resp BP Pulse Ox O2 Del Method 04/09/23 15:57 98.1 F 69 16 114/66 95 Room Air 04/09/23 14:59 93 H 02/21/24 12:28 97.9 F 72 14 114/66 95 Room Air Laboratory Results Reviewed CBC Reviewed chemistry Reviewed suboptimal [id number] glucose and adjust the Lantus regiment PG Care Time/CCT Total # of Minutes Spent Total Time Spent with Patient: Total time spent is greater than 50% in coordination of care (as documented) at patient's floor/unit and/or counseling patient: Coding Level of Care Code 59767 SUB INP/OBS CARE 2/35MIN Diagnoses RSV (respiratory syncytial virus infection) B33.8 Nausea & vomiting R11.2 Coronary artery disease involving [place] coronary artery of [place] heart, unspecified whether angina present I25.10 Coronary Disease-Associated Artery/Lesion type: [place] artery [place] vs. transplanted heart: [place] heart Associated angina: unspecified whether angina present Anxiety F41.9 Diabetes type 2, uncontrolled E11.65 Hypothyroidism, unspecified type E03.9 Hypothyroidism type: unspecified Hypertension I10 (3) CAD (coronary artery disease) Coronary Disease-Associated Artery/Lesion type: [place] artery [place] vs. transplanted heart: [place] heart Associated angina: unspecified whether angina present Qualified Code(s): I25.10 - Atherosclerotic heart disease of [place] coronary artery without angina pectoris (6) Hypothyroidism Hypothyroidism type: unspecified Qualified Code(s): E03.9 - Hypothyroidism, unspecified
[2023-04-09] MEDS: LANTUS PER UNIT CHARGE SQ SCH (21:09)
[2023-04-10] MEDS ORDERED: PHARMACY GLYCEMIC MGMT CONSULT PRN (04:44)
[2023-04-10] MEDS: INSULIN ASPART PER UNIT CHARGE SC ONE (05:28)
[2023-04-10] MEDS: LANTUS PER UNIT CHARGE SQ ONE (05:28)
[2023-04-10 07:10] LABS: BUN Creatinine Ratio 22.7 (10-20); Calcium 9.6 mg/dl (8.6-10.3); Creatinine Clr Calc Pharmacy 54.7 ml/min; Est GFR (Non-African American) 62.2 ml/min; Magnesium 1.6 mg/dl (1.7-2.4); Potassium 4.4 mmol/L (3.5-5.1)
[2023-04-10] MEDS: POLYETHYLENE (MIRALAX) 17 GM PACK PO PRN (09:06)
[2023-04-10] MEDS: AZITHROMYCIN 250 MG TAB PO SCH (09:10)
--- NOTE | 2023-04-10 10:33 | Pharmacy Report ---
Pharmacy Glycemic Short Note 2 - Date of Service April 10, 2023 - Glycemic Short BSG Results (Last 24 hours): 04/09/23 04/09/23 04/09/23 12:24 17:23 17:24 Glucose POC Glucose 134 H 303 H* 345 H* 04/09/23 04/09/23 04/09/23 17:35 20:32 20:35 Glucose 318 H* POC Glucose 402 H* 400 H* 04/10/23 04/10/23 04/10/23 00:18 04:33 04:35 Glucose POC Glucose 248 H 310 H* 359 H* 04/10/23 04/10/23 04/10/23 06:05 08:25 08:26 Glucose 338 H* POC Glucose 354 H* 340 H* OUTPATIENT ANTIDIABETIC REGIMEN: * Insulin U500 15 units SQ BID * HbA1c 10.2% (01/24/23) ASSESSMENT: * Yolanda is a 62 YOF admitted with nausea, vommitting, and cough/congestion found to have RSV. She has a history of type 2 diabetes mellitus. Pharmacy has been consulted to assist with glycemic managment while inpatient. * BSGs became elevated yesterday after the addition of IV methylprednisolone 40mg BID. Basal insulin increased to a weight based stress of 3 (~0.2units/kg BID) * Novolog tightened to a weight based stress of 3. Will give an IV bolus with lunch if BSGs still elevated with insulin adjustments. PLAN FOR INPATIENT GLYCEMIC CONTROL: * Hold outpatient oral diabetes medications * Basal insulin * Lantus 18 units SQ BID * Bolus insulin * NovoLog per scale ACHS or Q6hrs while NPO * Goal Range: Low 110 mg/dL - High 140 mg/dL * Correction Factor: 20 mg/dL/unit * Nutritional / Prandial insulin per carb ratio of 1 unit per 6 grams CHO consumed
[2023-04-10] MEDS: INSULIN HUMAN REGULAR PER UNIT 5 UNITS in SYRINGE 4.95 ML IV ONE (13:40)
[2023-04-10] MEDS: POLYETHYLENE (MIRALAX) 17 GM PACK PO SCH (17:44)
[2023-04-10] MEDS: DOCUSATE SODIUM/SENNA 50/8.6MG TAB PO SCH (17:45)
[2023-04-10] MEDS ORDERED: STAT IV Infusion **Titration per Protocol STA (18:25)
[2023-04-10] MEDS: INSULIN HUMAN REGULAR IV BOLUS 3 UNITS in SYRINGE 0 ML IV ONE (19:15)
[2023-04-10] MEDS: INSULIN REGULAR 250 UNITS in SODIUM CHLORIDE 0.9% 247.5 ML IV SCH (19:17)
[2023-04-10] MEDS ORDERED: LANTUS PER UNIT CHARGE SQ SCH (21:00)
[2023-04-10] MEDS: INSULIN ASPART PER UNIT CHARGE SC SCH (21:50)
[2023-04-10] MEDS: LANTUS PER UNIT CHARGE SQ SCH (22:19)
--- NOTE | 2023-04-10 22:24 | Hospitalist Progress Note ---
Date of Service April 10, 2023 Assessment & Plan (1) RSV (respiratory syncytial virus infection): Plan: Shortness of breath, cough 2/2 RSV bronchitis persistence is likely secondary to her RSV status Remains on azithromycin for secondary anti-inflammatory effects from her chronic respiratory failure Formally diagnosed with COPD and history of tobacco abuse and CXR no pneumonia cutting back on methyprednisolone to daily. supportive care, steroids, cough suppression tessalon and codiene (2) Nausea & vomiting: Plan: Nausea/vomiting resolved, has long gi history With history of similar with constipation and gastroparesis.? Exacerbation with viral illness Continue MiraLAX, as needed Colace/senna Patient is scheduled for follow-up colonoscopy as outpatient in April Antiemetic treatment as noted. (3) CAD (coronary artery disease): Plan: History of CAD, LAD PCI, heart failure preserved ejection fraction Last echo 12/2022 with EF 60 to 65%, grade 1 diastolic dysfunction, mild MR, mild TR Troponin is normal on admission EKG without acute territorial ischemic changes on admission Continue aspirin, Brilinta. Patient is not on ELHAM/ARB/beta-elizabeth due to history of hypotension History of torsades continue to monitor and replete electrolytes , potassium and magnesium given 04/07/23 (4) Anxiety: Plan: Anxiety/depression Continue home meds (5) Diabetes type 2, uncontrolled: Plan: Poorly controlled type II DM Post fluid BSG 379. Receiving 5 units IV insulin and home glargine restarted, refused glargine in pm 04/07, restarted and accepted in am 04/08 Basal bolus SSI, also adjust ssi (6) Hypothyroidism: Plan: Hypothyroidism chronic and stable Continue Synthroid (7) Hypertension: Plan: HTN - Spironolactone continued. No SAMRA or hyperkalemia. Plan Pt/OT eval ordered Admission and Anticipated Discharge Date Admission Date: April 06, 2023 Subjective Patient reports no new symptoms. Review of Systems Review of Systems: All systems reviewed & are unremarkable except as noted in HPI & below Physical Exam Physical Exam: pt has non productive but frequent cough no focal loss or wheeze Coarse breath sounds are heard in all lung bradley Results & Data Results & Data Vital Signs (Past 12 Hours) Vital Signs Temp Pulse Pulse Resp BP Pulse Ox O2 Del Method 04/10/23 19:36 36.7 C 77 16 113/69 94 Room Air 04/10/23 16:30 85 04/10/23 16:08 36.4 C L 75 16 108/65 95 Room Air 04/10/23 12:00 Room Air 04/10/23 11:48 36.5 C 75 16 124/74 97 Room Air PG Care Time/CCT Total # of Minutes Spent Total Time Spent with Patient: Total time spent is greater than 50% in coordination of care (as documented) at patient's floor/unit and/or counseling patient: Coding Level of Care Code 38621 SUB INP/OBS CARE 2/35MIN Diagnoses RSV (respiratory syncytial virus infection) B33.8 Nausea & vomiting R11.2 Coronary artery disease involving [place] coronary artery of [place] heart, unspecified whether angina present I25.10 Associated angina: unspecified whether angina present Coronary Disease-Associated Artery/Lesion type: [place] artery [place] vs. transplanted heart: [place] heart Anxiety F41.9 Diabetes type 2, uncontrolled E11.65 Hypothyroidism, unspecified type E03.9 Hypothyroidism type: unspecified Hypertension I10 (3) CAD (coronary artery disease) Associated angina: unspecified whether angina present Coronary Disease- Associated Artery/Lesion type: [place] artery [place] vs. transplanted heart: [place] heart Qualified Code(s): I25.10 - Atherosclerotic heart disease of [place] coronary artery without angina pectoris (6) Hypothyroidism Hypothyroidism type: unspecified Qualified Code(s): E03.9 - Hypothyroidism, unspecified
[2023-04-11] MEDS ORDERED: INSULIN ASPART PER UNIT CHARGE SC SCH
[2023-04-11] MEDS: DEXTROSE 50% 50 ML SYRINGE IV PRN (04:30)
[2023-04-11] MEDS: [UNRECOGNIZED DRUG - REMARK] STA (05:37)
[2023-04-11 06:54] LABS: Hematocrit (blood only) 34.4 % (37.0-47.0); Hemoglobin 11.7 g/dl (12.0-16.0); Mean Corpuscular Hemoglobin 28.7 pg (25.0-34.0); Mean Corpuscular Volume 84.3 fL (80.0-100.0); Mean Platelet Volume 11.4 fL (9.4-12.4); Platelet Count 238 K/uL (130-400); RDW Coefficient of Variation 13.1 % (11.5-14.5); Red Blood Count 4.08 M/uL (4.20-5.40); White Blood Count 13.37 K/ul (4.8-10.8)
[2023-04-11 07:16] LABS: BUN Creatinine Ratio 27.1 (10-20); Calcium 9.4 mg/dl (8.6-10.3); Creatinine Clr Calc Pharmacy 49.6 ml/min; Est GFR (Non-African American) 55.2 ml/min; Potassium 3.4 mmol/L (3.5-5.1)
[2023-04-11] MEDS: methylPREDNISolone 40 MG in SYRINGE 0 ML IV SCH (08:31)
[2023-04-11] MEDS: LANTUS PER UNIT CHARGE SQ ONE (13:14)
[2023-04-11] MEDS: POTASSIUM CHLORIDE CRTAB 20 MEQ TABCR PO STA (13:14)
--- NOTE | 2023-04-11 14:23 | Pharmacy Report ---
Pharmacy Glycemic Short Note 2 - Date of Service April 11, 2023 - Glycemic Short BSG Results (Last 24 hours): 04/10/23 04/10/23 04/10/23 17:16 17:17 17:18 Glucose POC Glucose 399 H* 443 H* 392 H* 04/10/23 04/10/23 04/10/23 19:32 20:10 21:01 Glucose POC Glucose 392 H* 362 H* 331 H* 04/10/23 04/10/23 04/11/23 21:56 23:01 00:06 Glucose POC Glucose 294 H 209 H 173 H 04/11/23 04/11/23 04/11/23 00:56 02:03 03:01 Glucose POC Glucose 152 H 113 H 100 H 04/11/23 04/11/23 04/11/23 04:02 04:47 05:54 Glucose POC Glucose 74 153 H 95 04/11/23 04/11/23 04/11/23 05:55 08:04 12:08 Glucose 94 POC Glucose 114 H 232 H OUTPATIENT ANTIDIABETIC REGIMEN: * Insulin U500 15 units SQ BID * HbA1c 10.2% (01/24/23) ASSESSMENT: 04/11 * Yolanda received 80 units of SQ insulin yesterday (30 units of basal, 50 units of bolus) + 5 units IV regular insulin bolus with lunchtime + 30 units of regular IV insulin from drip * Persistent hyperglycemia yesterday evening despite IV regular insulin bolus given at lunch, so she was started on a drip which was discontinued overnight due to BSGs coming back down (received approximately 30 units via drip) * IV methylprednisolone frequency decreased from BID to daily * Fasting BSG this AM within goal range, basal insulin given at a weight based stress of 2 this AM, ordered additional with elevated lunchtime BSG (to equal ~0.4 units/kg to cover steroids), basal scale added at bedtime for basal needs based on BSG * Carbohydrate ratio tightened more due to increase in BSGs from breakfast to lunch 04/10 * Yolanda is a 62 YOF admitted with nausea, vommitting, and cough/congestion found to have RSV. She has a history of type 2 diabetes mellitus. Pharmacy has been consulted to assist with glycemic managment while inpatient. * BSGs became elevated yesterday after the addition of IV methylprednisolone 40mg BID. Basal insulin increased to a weight based stress of 3 (~0.2units/kg BID) * Novolog tightened to a weight based stress of 3. Will give an IV bolus with lunch if BSGs still elevated with insulin adjustments. PLAN FOR INPATIENT GLYCEMIC CONTROL: * Hold outpatient oral diabetes medications * Basal insulin * Lantus 30 units (12 +18 today) SQ QAM (give with IV Solumedrol) * Lantus 0-15 units SQ HS (see eMAR for additional details) * Bolus insulin * NovoLog per scale ACHS or Q6hrs while NPO * Goal Range: Low 110 mg/dL - High 140 mg/dL * Correction Factor: 15 mg/dL/unit * Nutritional / Prandial insulin per carb ratio of 1 unit per 4 grams CHO consumed
[2023-04-11] MEDS: LANTUS PER UNIT CHARGE SQ SCH (21:51)
[2023-04-11] MEDS: POLYETHYLENE (MIRALAX) 17 GM PACK PO SCH (21:52)
--- NOTE | 2023-04-11 21:57 | Hospitalist Progress Note ---
Date of Service April 11, 2023 Assessment & Plan (1) RSV (respiratory syncytial virus infection): Plan: Shortness of breath, cough 2/2 RSV bronchitis persistence is likely secondary to her RSV status Remains on azithromycin for secondary anti-inflammatory effects from her chronic respiratory failure Formally diagnosed with COPD and history of tobacco abuse and CXR no pneumonia cutting back on methyprednisolone to daily. supportive care, steroids, cough suppression tessalon and codiene Patient is slowly improving. (2) Nausea & vomiting: Plan: Nausea/vomiting resolved, has long gi history With history of similar with constipation and gastroparesis.? Exacerbation with viral illness Continue MiraLAX, as needed Colace/senna Patient is scheduled for follow-up colonoscopy as outpatient in April Antiemetic treatment as noted. (3) CAD (coronary artery disease): Plan: History of CAD, LAD PCI, heart failure preserved ejection fraction Last echo 12/2022 with EF 60 to 65%, grade 1 diastolic dysfunction, mild MR, mild TR Troponin is normal on admission EKG without acute territorial ischemic changes on admission Continue aspirin, Brilinta. Patient is not on ELHAM/ARB/beta-elizabeth due to history of hypotension History of torsades continue to monitor and replete electrolytes , potassium and magnesium given 04/07/23 (4) Anxiety: Plan: Anxiety/depression Continue home meds (5) Diabetes type 2, uncontrolled: Plan: Poorly controlled type II DM Post fluid BSG 379. Receiving 5 units IV insulin and home glargine restarted, refused glargine in pm 04/07, restarted and accepted in am 04/08 Basal bolus SSI, also adjust ssi (6) Hypothyroidism: Plan: Hypothyroidism chronic and stable Continue Synthroid (7) Hypertension: Plan: HTN - Spironolactone continued. No SAMRA or hyperkalemia. Plan Pt/OT eval ordered Admission and Anticipated Discharge Date Admission Date: April 06, 2023 Subjective 62 yo female reports no new symptoms. Review of Systems Review of Systems: All systems reviewed & are unremarkable except as noted in HPI & below Physical Exam Physical Exam: pt has non productive but frequent cough no focal loss or wheeze Coarse breath sounds are heard in all lung bradley Results & Data Results & Data Vital Signs (Past 12 Hours) Vital Signs Temp Pulse Resp BP Pulse Ox O2 Del Method 04/11/23 20:25 36.8 C 81 20 101/65 94 Room Air 04/11/23 15:38 36.6 C 69 17 104/63 95 Room Air 04/11/23 11:48 36.8 C 71 18 111/69 95 Room Air PG Care Time/CCT Total # of Minutes Spent Total Time Spent with Patient: Total time spent is greater than 50% in coordination of care (as documented) at patient's floor/unit and/or counseling patient: Coding Level of Care Code 26986 SUB INP/OBS CARE 2/35MIN Diagnoses RSV (respiratory syncytial virus infection) B33.8 Nausea & vomiting R11.2 Coronary artery disease involving [place] coronary artery of [place] heart, unspecified whether angina present I25.10 Associated angina: unspecified whether angina present Coronary Disease-Associated Artery/Lesion type: [place] artery [place] vs. transplanted heart: [place] heart Anxiety F41.9 Diabetes type 2, uncontrolled E11.65 Hypothyroidism, unspecified type E03.9 Hypothyroidism type: unspecified Hypertension I10 (3) CAD (coronary artery disease) Associated angina: unspecified whether angina present Coronary Disease- Associated Artery/Lesion type: [place] artery [place] vs. transplanted heart: [place] heart Qualified Code(s): I25.10 - Atherosclerotic heart disease of [place] coronary artery without angina pectoris (6) Hypothyroidism Hypothyroidism type: unspecified Qualified Code(s): E03.9 - Hypothyroidism, unspecified
[2023-04-12] MEDS: ALBUT/IPRATROP 3MG/0.5MG NEB 3 ML VIAL NEB PRN (00:04)
[2023-04-12] MEDS: KETOROLAC TROMETHAMINE 15 MG/ML VIAL IV ONE (00:08)
[2023-04-12] MEDS: INSULIN ASPART PER UNIT CHARGE SC SCH (00:23)
--- NOTE | 2023-04-12 00:24 | Communication Note ---
Date of Service: April 12, 2023 Alerted of patient with 8/10 chest pain. EKG NSR without signs of ischemic changes. PT/PTT/INR and HsTrop ordered. Ordered duoneb x1. Some improvement with Toradol. Reproducible substernal CP on exam. RRR no m/r/g, no extra heart sounds. Likely MSK in nature with current COPD exacerbation and increased coughing. Trialed nitro paste x1. HS Trop 2.4 further pointing towards a non- cardiac etiology. Resident Activity Tracking Resident Involvement: Resident Care Provided Care Provided: Adult Hospital Medicine
[2023-04-12] MEDS: NITROGLYCERIN 2% OINTMENT 30GM TUBE EXT ONE (01:04)
[2023-04-12 01:09] LABS: INR 0.9 (0.9-1.1); Partial Thromboplastin Ratio 0.9; Partial Thromboplastin Time 25 Seconds (21-31); Prothrombin Time 9.5 Seconds (9.0-12.0)
--- NOTE | 2023-04-12 07:12 | Electrocardiogram Report ---
Test Reason : Blood Pressure : / mmHG Vent. Rate : 066 BPM Atrial Rate : 066 BPM P-R Int : 154 ms QRS Dur : 078 ms QT Int : 418 ms P-R-T Axes : 049 045 046 degrees QTc Int : 438 ms Normal sinus rhythm Normal ECG When compared with ECG of 06-APR-2023 12:28, No significant change was found Confirmed by Omer Andrade ([id number]) on 04/12/2023 7:11:57 AM Referred By: REFERRED SELF Confirmed By:Norberto Andrade
[2023-04-12 08:08] LABS: Hematocrit (blood only) 34.9 % (37.0-47.0); Hemoglobin 11.3 g/dl (12.0-16.0); Mean Corpuscular Hemoglobin 28.6 pg (25.0-34.0); Mean Corpuscular Hgb Conc 32.4 g/dL (32.0-36.0); Mean Corpuscular Volume 88.4 fL (80.0-100.0); Mean Platelet Volume 10.6 fL (9.4-12.4); Platelet Count 221 K/uL (130-400); RDW Coefficient of Variation 13.2 % (11.5-14.5); RDW Standard Deviation 42.7 fL (36.4-46.3); Red Blood Count 3.95 M/uL (4.20-5.40); White Blood Count 11.85 K/ul (4.8-10.8)
[2023-04-12 08:40] LABS: Anion Gap 6 (3-11); Blood Urea Nitrogen 35 mg/dl (6-23); C Reactive Protein < 0.50 mg/dl (0-0.5); Calcium 9.1 mg/dl (8.6-10.3); Carbon Dioxide 27 mmol/L (21-32); Chloride 103 mmol/L (98-107); Creatinine Clr Calc Pharmacy 42.6 ml/min; Est GFR (Non-African American) 45.7 ml/min; Glucose 142 mg/dl (70-99(Fasting)); Potassium 4.6 mmol/L (3.5-5.1); Sodium 136 mmol/L (136-145)
[2023-04-12] MEDS: MAGNESIUM HYDROXIDE SUSP 30 ML UDC PO PRN (09:26)
[2023-04-12] MEDS: ONDANSETRON 4 MG OD TAB PO PRN (09:27)
[2023-04-12] MEDS: LANTUS PER UNIT CHARGE SQ SCH (09:39)
--- NOTE | 2023-04-12 13:33 | Hospitalist Progress Note ---
Date of Service April 12, 2023 Assessment & Plan (1) RSV (respiratory syncytial virus infection): Plan: Shortness of breath, cough 2/2 RSV bronchitis persistence is likely secondary to her RSV status Remains on azithromycin for secondary anti-inflammatory effects from her chronic respiratory failure Formally diagnosed with COPD and history of tobacco abuse and CXR no pneumonia cutting back on methyprednisolone to daily. supportive care, steroids, cough suppression tessalon and codiene Patient is slowly improving. Patient's main concern is her nausea and vomiting, which is described below. (2) Nausea & vomiting: Plan: Nausea/vomiting resolved, has long gi history With history of similar with constipation and gastroparesis.? Exacerbation with viral illness Continue MiraLAX, as needed Colace/senna Patient is scheduled for follow-up colonoscopy as outpatient in April Antiemetic treatment as noted. horace reiterate that she needs to be on miralax. (3) CAD (coronary artery disease): Plan: History of CAD, LAD PCI, heart failure preserved ejection fraction Last echo 12/2022 with EF 60 to 65%, grade 1 diastolic dysfunction, mild MR, mild TR Troponin is normal on admission EKG without acute territorial ischemic changes on admission Continue aspirin, Brilinta. Patient is not on ELHAM/ARB/beta-elizabeth due to history of hypotension History of torsades continue to monitor and replete electrolytes , potassium and magnesium given 04/07/23 (4) Anxiety: Plan: Anxiety/depression Continue home meds (5) Diabetes type 2, uncontrolled: Plan: Poorly controlled type II DM Post fluid BSG 379. Receiving 5 units IV insulin and home glargine restarted, refused glargine in pm 04/07, restarted and accepted in am 04/08 Basal bolus SSI, also adjust ssi (6) Hypothyroidism: Plan: Hypothyroidism chronic and stable Continue Synthroid (7) Hypertension: Plan: HTN - Spironolactone continued. No SAMRA or hyperkalemia. Plan Pt/OT eval ordered Admission and Anticipated Discharge Date Admission Date: April 06, 2023 Subjective Patient is concerned about her nausea and vomiting. Review of Systems Review of Systems: All systems reviewed & are unremarkable except as noted in HPI & below Physical Exam Physical Exam: pt has non productive but frequent cough no focal loss or wheeze Coarse breath sounds are heard in all lung bradley Results & Data Results & Data Vital Signs (Past 12 Hours) Vital Signs Temp Pulse Pulse Resp BP Pulse Ox O2 Del Method 04/12/23 11:30 36.5 C 66 18 103/64 96 Room Air 04/12/23 09:00 Room Air 04/12/23 08:28 63 04/12/23 08:20 36.5 C 64 20 118/74 93 Room Air 04/12/23 04:55 36.7 C 60 20 102/62 97 Room Air 04/12/23 03:20 70 PG Care Time/CCT Total # of Minutes Spent Total Time Spent with Patient: Total time spent is greater than 50% in coordination of care (as documented) at patient's floor/unit and/or counseling patient: Coding Level of Care Code 30613 SUB INP/OBS CARE 2/35MIN Diagnoses RSV (respiratory syncytial virus infection) B33.8 Nausea & vomiting R11.2 Coronary artery disease involving [place] coronary artery of [place] heart, unspecified whether angina present I25.10 Associated angina: unspecified whether angina present Coronary Disease-Associated Artery/Lesion type: [place] artery [place] vs. transplanted heart: [place] heart Anxiety F41.9 Diabetes type 2, uncontrolled E11.65 Hypothyroidism, unspecified type E03.9 Hypothyroidism type: unspecified Hypertension I10 (3) CAD (coronary artery disease) Associated angina: unspecified whether angina present Coronary Disease- Associated Artery/Lesion type: [place] artery [place] vs. transplanted heart: [place] heart Qualified Code(s): I25.10 - Atherosclerotic heart disease of [place] coronary artery without angina pectoris (6) Hypothyroidism Hypothyroidism type: unspecified Qualified Code(s): E03.9 - Hypothyroidism, unspecified
[2023-04-12] MEDS: POLYETHYLENE (MIRALAX) 17 GM PACK PO ONE (14:00)
--- NOTE | 2023-04-12 14:40 | XRay Report ---
KUB CLINICAL HISTORY: Constipation. FINDINGS: 2 AP, portable, supine abdominal radiographs are compared to study dated 04/06/2023 and lolis elated with abdominal CT dated 02/28/2023. There is a nonobstructed abdominal bowel gas pattern. Moder ate fecal retention is noted in the right colon. No evidence of intraperitoneal free air is seen on t hese supine images. Cholecystectomy clips are noted in the right upper quadrant. Calcified fibroids a re seen in the pelvis. The skeletal Structures are osteopenic and appear intact. There is lumbosacral spondylosis. IMPRESSION: No acute abnormality is identified. Electronically signed by: Lalito Cisse M.D. 04/12/2023 2:38 PM
[2023-04-13 07:01] LABS: Hematocrit (blood only) 34.2 % (37.0-47.0); Hemoglobin 11.5 g/dl (12.0-16.0); Mean Corpuscular Hemoglobin 28.9 pg (25.0-34.0); Mean Corpuscular Hgb Conc 33.6 g/dL (32.0-36.0); Mean Corpuscular Volume 85.9 fL (80.0-100.0); Mean Platelet Volume 10.7 fL (9.4-12.4); Platelet Count 253 K/uL (130-400); RDW Coefficient of Variation 13.1 % (11.5-14.5); RDW Standard Deviation 40.7 fL (36.4-46.3); Red Blood Count 3.98 M/uL (4.20-5.40); White Blood Count 12.53 K/ul (4.8-10.8)
[2023-04-13 07:18] LABS: Anion Gap 5 (3-11); BUN Creatinine Ratio 28.2 (10-20); Blood Urea Nitrogen 29 mg/dl (6-23); C Reactive Protein < 0.50 mg/dl (0-0.5); Calcium 9.1 mg/dl (8.6-10.3); Carbon Dioxide 29 mmol/L (21-32); Chloride 102 mmol/L (98-107); Creatinine Clr Calc Pharmacy 51.9 ml/min; Est GFR (Non-African American) 57.8 ml/min; Glucose 156 mg/dl (70-99(Fasting)); Potassium 4.8 mmol/L (3.5-5.1); Sodium 136 mmol/L (136-145)
[2023-04-13] MEDS: LANTUS PER UNIT CHARGE SQ SCH (09:34)
[2023-04-13] MEDS: POLYETHYLENE (MIRALAX) 17 GM PACK PO SCH (09:34)
--- NOTE | 2023-04-13 11:48 | Discharge Summary ---
Date of Service April 13, 2023 Admission HPI Per Admitting Provider Alison is a 62-year-old female with a past medical history of NSTEMI with LAD PCI, type II DM, torsades, hypothyroidism, GERD who presents to the ER with 2 days of sore throat, shortness of breath, nausea, and nonbloody vomiting. Yolanda is seen at the bedside. She reports that since returning home she has continued to feel poorly and be constipated. She was a little more fatigued yesterday, starting this morning she has developed a sore throat, shortness of breath, and dry cough. She is not able to eat and drink at home and feels her appetite has been greatly diminished. She has not taken insulin today, did take insulin last night. She feels that she is still very constipated and straining to have a bowel movement, and at the same time is not had good oral intake. She feels weak. She denies chest pain, chest pressure, neck and jaw pain. She reports mild diffuse abdominal tenderness without focal or severe tenderness Medical History: Reviewed Medications: Reviewed Surgical History: Reviewed Family history: Reviewed Allergies: Reviewed Social History: Reviewed Code Status: Full. Due to patient previously conditional code, discussed nature of resuscitation and events to be successful and that if she would prefer to avoid a breathing tube in the extreme circumstance that she had already often patients would prefer to be allowed to pass consistent with DNR/DNI, versus if it were important to take all efforts to bring her back/resuscitate her that CPR is often unsuccessful without the support of intubation. After a/manage discussion patient reports that is important to her that if she were to clinically that efforts be taken to attempt to revive her even if these included a breathing tube, as such we will up date CODE STATUS to full code Principal Diagnosis RSV Discharge Exam pt has non productive but frequent cough no focal loss or wheeze Coarse breath sounds are heard in all lung bradley Discharge Data Allergies Allergy/AdvReac Type Severity Reaction Status Date / Time dulaglutide [From Trulicity] AdvReac Intermediate stomach Verified 04/06/23 14:38 pain albiglutide [From Tanzeum] AdvReac Unknown CAN'T Verified 04/06/23 14:38 REMEMBER Consultations 04/06/23 13:30 ED Decision to Admit Stat Hospital Course (1) RSV (respiratory syncytial virus infection): Shortness of breath, cough 2/2 RSV bronchitis persistence is likely secondary to her RSV status Remains on azithromycin for secondary anti-inflammatory effects from her chronic respiratory failure Formally diagnosed with COPD and history of tobacco abuse and CXR no pneumonia Patient slwoly improved with tapered steroids, supportive care, cough suppression sarah rajan anastasia Patient was discharged on 04/13 Patient's main concern is her nausea and vomiting, which is described below. (2) Nausea & vomiting: Nausea/vomiting resolved, has long gi history With history of similar with constipation and gastroparesis.? Exacerbation with viral illness Continue MiraLAX, as needed Colace/senna Patient is scheduled for follow-up colonoscopy as outpatient in April Antiemetic treatment as noted. horace reiterate that she needs to be on miralax. (3) CAD (coronary artery disease): History of CAD, LAD PCI, heart failure preserved ejection fraction Last echo 12/2022 with EF 60 to 65%, grade 1 diastolic dysfunction, mild MR, mild TR Troponin is normal on admission EKG without acute territorial ischemic changes on admission Continue aspirin, Brilinta. Patient is not on ELHAM/ARB/beta-elizabeth due to history of hypotension History of torsades continue to monitor and replete electrolytes , potassium and magnesium given 04/07/23 (4) Anxiety: Anxiety/depression Continue home meds (5) Diabetes type 2, uncontrolled: Poorly controlled type II DM While in the hospital. Post fluid BSG 379. Receiving 5 units IV insulin and home glargine restarted, refused glargine in pm 04/07, restarted and accepted in am 04/08 Basal bolus SSI, also adjust ssi (6) Hypothyroidism: Hypothyroidism chronic and stable Continue Synthroid (7) Hypertension: HTN - Spironolactone continued. No SAMRA or hyperkalemia. Total Time Total Time Spent Total Time Spent (In Minutes): 32 Discharge Plan Discharge Items Patient Disposition: Home - Self-Care Reason For Visit: HYPERGLYCEMIA, RSV, POOR PO INTAKE Discharge Diagnosis: RSV Activity: Resume your previous activity Non-emergency contact: Primary Care Provider Call non-emergency contact if: you have any medication questions Follow-up/Referrals: Ashlee Gray, ROSINA, LDN, CDE [Registered Dietitian] - 05/02/23 2:30 pm Jc Zaman DO [Primary Care Provider] - 04/18/23 3:30 pm Diet: Carb Consistent or DM2 Addtl Attending Provider Instructions: recommend close followup with PCP in 1-2 weeks on a friday. Please take antibiotics for one more day tomorrow. Please continue steroid taper starting tomorrow 3 tablets once a day for 2 days 2 tablets once a day for 2 days 1 tablet once a day for 2 days Please abstain from smoking. recommend encdocrinology followup and GI followup on fridays Pending Studies at Discharge: No Stand-Alone Forms: [facility], Smoking Cessation Medications and DC Order Prescriptions: New benzonatate 100 mg Capsule 100 mg PO TID PRN (Reason: cough) Qty: 15 0RF guaifenesin [Mucinex] 1,200 mg tablet extended release 12hr 1,200 mg PO Q12H Qty: 14 0RF prednisone 10 mg tablet See Rx Instructions .ROUTE .COMPLEX Qty: 12 0RF Rx Instructions: Take 3 tabs by mouth once daily for 2 days then 2 tabs once daily for 2 days 1 tab daily for 2 days nicotine [Nicoderm CQ] 21 mg/24 hr Patch 24 Hour 21 mg transdermal QAM Qty: 28 0RF polyethylene glycol 3350 [Miralax] 17 gram Powder In Packet 17 g PO BID Qty: 30 0RF Continued (DME) pen needle, diabetic [BD Ultra-Fine Cary Pen Needle] 32 gauge x 5/32" needle See Dose Instructions .ROUTE .MEDSUPPLY Qty: 200 11RF Dose Instruction: As directed Rx Instructions: use 2 times daily or as directed by physician to monitor blood sugar ascorbic acid (vitamin C) [Vitamin C] 500 mg tablet 1,000 mg PO QAM Qty: 60 0RF folic acid 1 mg tablet 1 mg PO QAM Qty: 90 3RF peg 3350-electrolytes [Golytely] 236-22.74-6.74 -5.86 gram recon soln 240 ml PO ONCE Qty: 4000 0RF Rx Instructions: TAKE DIRECTED PER SPLIT DOSE INSTRUCTIONS (DME) blood-glucose meter [Prodigy Autocode Meter] Kit See Rx Instructions .Route Rx Instructions: As directed aspirin 81 mg Tablet,Delayed Release (Dr/Ec) 81 mg PO QAM Qty: 30 0RF Rx Instructions: Over the counter pantoprazole 40 mg tablet,delayed release (DR/EC) 40 mg PO QAM Rx Instructions: TAKE ONE TABLET BY MOUTH ONCE DAILY acetaminophen [Pharbetol] 500 mg Tablet 1,000 mg PO Q8H PRN (Reason: Pain) Humulin R U-500 (Conc) Kwikpen 500 unit/mL (3 mL) insulin pen 15 unit SUBCUT BID Rx Instructions: 4 UNITS BSG >200. atorvastatin 80 mg tablet 80 mg PO HS spironolactone 25 mg tablet 25 mg PO QAM ergocalciferol (vitamin D2) 1,250 mcg (50,000 unit) capsule 50,000 unit PO WK Rx Instructions: MONDAYS sucralfate 100 mg/mL Suspension 1 g PO AC Qty: 1000 0RF diclofenac sodium [Voltaren Arthritis Pain] 1 % gel 2 g EXT QID PRN (Reason: Pain) levothyroxine 88 mcg tablet 88 mcg PO DAILYBB bupropion HCl 150 mg Tablet Extended Release 24 Hr 150 mg PO QAM 30 Days Qty: 30 0RF No Action gabapentin 100 mg capsule 200 mg PO BID 30 Days Qty: 120 3RF Brilinta 90 mg tablet 90 mg PO BID Qty: 60 3RF Discharge Orders: Discharge Order (Routine); Ordered 04/13/23 Ordered By: Monty Yeh Admission Data Admit Date/Time: 04/06/23 14:15 Attending Provider: Monty Yeh Admit Provider: Eh Guerrero Primary Care Provider: Jc Zaman Other Providers: Eh Guerrero Other Interventions: Discharge Summary Assessment (RN) Last Done: 04/13/23 12:33 Coding Level of Care Code 84688 INP/OBS DISCH >30 MIN Diagnoses RSV (respiratory syncytial virus infection) B33.8 Nausea & vomiting R11.2 Coronary artery disease involving [place] coronary artery of [place] heart, unspecified whether angina present I25.10 Associated angina: unspecified whether angina present Coronary Disease-Associated Artery/Lesion type: [place] artery [place] vs. transplanted heart: [place] heart Anxiety F41.9 Diabetes type 2, uncontrolled E11.65 Hypothyroidism, unspecified type E03.9 Hypothyroidism type: unspecified Hypertension I10
[2023-04-13] MEDS ORDERED: LANTUS PER UNIT CHARGE SQ SCH (21:00)
== END 2023-04-13 16:35 | disposition home or self-care (01) | DRG 202 ==
LOC: ED 11:49 → SUATTDRO 14:15 → EDINP 14:15 → 2N 16:45

== ENCOUNTER 2023-08-26 19:24 | Inpatient (IN) ==
[2023-08-26 20:34] LABS: Basophils # (auto) 0.03 K/uL (0.00-0.20); Basophils % (auto) 0.2 %; Eosinophils % (auto) 2.4 %; Hematocrit (blood only) 33.4 % (37.0-47.0); Hemoglobin 11.5 g/dl (12.0-16.0); Immature Granulocytes # (auto) 0.05 K/uL (0.01-0.20); Immature Granulocytes % (auto) 0.4 %; Lymphocytes # (auto) 2.38 K/uL (1.20-3.40); Lymphocytes % (auto) 19.2 %; Mean Corpuscular Hemoglobin 27.1 pg (25.0-34.0); Mean Corpuscular Hgb Conc 34.4 g/dL (32.0-36.0); Mean Corpuscular Volume 78.6 fL (80.0-100.0); Monocytes # (auto) 0.79 K/uL (0.11-0.59); Monocytes % (auto) 6.4 %; Neutrophils # (auto) 8.84 K/uL (1.40-6.50); Neutrophils % (auto) 71.4 %; Platelet Count 282 K/uL (130-400); RDW Coefficient of Variation 14.3 % (11.5-14.5); Red Blood Count 4.25 M/uL (4.20-5.40); White Blood Count 12.39 K/ul (4.8-10.8)
[2023-08-26 20:40] LABS: Alanine Aminotransferase 9 U/L (7-52); Alkaline Phosphatase 115 U/L (34-104); Anion Gap 11 (3-11); Aspartate Aminotransferase 12 U/L (13-39); BUN Creatinine Ratio 3.4 (10-20); Bilirubin,Total 0.3 mg/dl (0.2-1.0); Blood Urea Nitrogen 3 mg/dl (6-23); Calcium 7.6 mg/dl (8.6-10.3); Carbon Dioxide 26 mmol/L (21-32); Chloride 96 mmol/L (98-107); Est GFR (African American) 79.9 ml/min; Globulin 2.9 gm/dl (2.5-4.0); Glucose 324 mg/dl (70-99(Fasting)); Potassium 2.1 mmol/L (3.5-5.1); Sodium 133 mmol/L (136-145); Total Protein 5.9 gm/dl (6.0-8.3); Troponin I High Sensitivity 8.1 pg/ml (0-14)
[2023-08-26 20:42] LABS: Partial Thromboplastin Ratio 0.8; Partial Thromboplastin Time 21 Seconds (21-31); Prothrombin Time 10.6 Seconds (9.0-12.0)
[2023-08-26] MEDS: POTASSIUM CHLORIDE / WTR 10 MEQ/100 ML PLCT IV SCH (21:20)
[2023-08-26 21:24] LABS: Magnesium 1.1 mg/dl (1.7-2.4)
[2023-08-26] MEDS: MAGNESIUM SULFATE / D5W 1 GM/100 ML BAG IV SCH (22:30)
--- NOTE | 2023-08-26 22:37 | Emergency Department Note ---
Impression & Plan Chest pain, Hypomagnesemia, Acute hypokalemia, Prolonged QT interval, Diarrhea ED Provider Note HISTORY OF PRESENT ILLNESS: Patient is a 62-year-old female presenting with chest pain. Patient reports that she has had persistent chest pain for the last 3 days. She states that she is short of breath and nauseous with the symptoms. She states the pain radiates into her left chest and down her left arm. She reports a history of cardiac stents but is not currently on any anticoagulation. Reports that her bilateral lower extremities have been swollen "for a very long time." She denies any Lasix use. She states the chest pain has not let up for 3 days. Denies any cough or fevers. Reports she has had persistent diarrhea for the last 48 hours. Denies any vomiting. She denies any recent travel or recent sick contact exposures. Denies any recent antibiotic use. ROS: as above PHYSICAL EXAM: Constitutional: Patient appears in no acute distress. HENT: Head: Normocephalic and atraumatic. Eyes: EOMI, PERRL Mouth/Throat: Mucous membranes moist. Neck: Trachea midline. Neck supple. Cardiovascular: RRR, No murmurs, rubs or gallops. Intact distal pulses. Pulmonary/Chest: No respiratory distress. Breath sounds clear and equal bilaterally. No wheezes or rales. Chest is tender to palpation of the sternum and left side of the chest. Abdominal: Abdomen soft, no tenderness, rebound or guarding. Musculoskeletal: No tenderness or deformity noted. +2 pitting edema of bilateral lower extremities extending to just above ankle. Skin: Warm and dry. No rash, erythema, pallor or cyanosis Psychiatric: Appropriate mood and affect for situation. Neurological: Alert and keenly responsive. CN II-XII grossly intact, moving all extremities equally and fully. MDM: - Vitals signs stable - History obtained via patient. History as above. - Chronic conditions affecting care: CAD (S/p PCI); DM-2; hypothyroidism; combined systolic and diastolic CHF - Differential diagnoses include, but are not limited to: Acute coronary syndrome; pulmonary embolism; dissection; tension pneumothorax; esophageal rupture; pneumonia - Order placed for continuous cardiac monitoring. At this time, monitor showed rate of 79 bpm with normal sinus rhythm, per my interpretation. - External medical records reviewed. Discharge summary dated 04/13/2023 was reviewed. Patient was admitted at that time for RSV. - EKG interpreted by myself showed normal sinus rhythm. Rate 73 bpm. Noted to have occasional PVC. QT prolonged at 450. No acute ischemic changes. - Laboratory workup interpreted by myself showed leukocytosis (WBC 12.39) with left shift; normal PT/INR; hyponatremia (Na 133); hypokalemia (K 2.1); hypocalcemia (Ca 7.6); hypomagnesemia (Mg 1.1); normal total bilirubin; grossly normal liver function; normal troponin; normal BNP - CXR negative for pneumonia or pleural effusions, per my interpretation - Patient ordered a total of 40 mEq IV potassium for replacement. 2g IV magnesium ordered for electrolyte replacement. - HEART score 3 (History +0 slightly suspicious; EKG +0; Age +1; Risk factors +2; Initial troponin +0), amounting to a low score. - Chest pain sounds atypical in nature. It also reproducible on palpation of the chest. Given her normal troponin after 3 days of constant chest pain, I do think this is atypical chest pain. However, given her EKG changes in the setting of her electrolyte abnormalities, will admit to hospitalist service. - Stool PCR ordered, but patient has not had any diarrhea in the ER. - Discussion was had with welfare case worker about patient's case and need for admission - Hospitalist, Dr. Gaytan, consulted for admission - Patient admitted to [facility] hospitalist service for further evaluation and management. I have personally spent 37 minutes of critical care time in the direct management of this patient. This includes bedside care, interpretation of diagnostic studies, and testing, discussion with consultants, patient, and family members, and other required patient management activities. This 37 minutes is in excess of all separately billable procedures. ASSESSMENT AND PLAN: Diagnosis: chest pain; acute hypokalemia; hypomagnesemia; prolonged QT; diarrhea Plan: admit Past Med/Surg History Problem List (Updated 08/26/23 @ 22:51 by Karina Denise MD) Diarrhea (Acute) Prolonged QT interval (Acute) Acute hypokalemia (Acute) Hypomagnesemia (Acute) Chest pain (Acute) Intractable nausea and vomiting (Acute) Hyperglycemia due to type 2 diabetes mellitus (Acute) Hypomagnesemia (Acute) Respiratory syncytial virus infection (Acute) Hypertension CAD (coronary artery disease) No remaining occlusive disease after 2 LAD drug eluting stents 10/22/20. Follows with Dr. Harris RSV (respiratory syncytial virus infection) SAMRA (acute kidney injury) Constipation Acute dehydration (Acute) Nausea & vomiting (Acute) Acute hypokalemia (Acute) Hyperglycemia (Acute) Hypomagnesemia (Acute) Chest pain (Acute) Chronic constipation Nausea (Acute) Abdominal pain, epigastric (Acute) Vitamin D deficiency Diabetes mellitus type 2 in obese Elevated creatine kinase Fall Elevated troponin Shock Fall (Acute) Hypocalcemia (Acute) Ventricular tachycardia (Acute) Respiratory arrest before cardiac arrest (Acute) Hypokalemia (Acute) Hypomagnesemia (Acute) Acute non-ST elevation myocardial infarction (NSTEMI) (Acute) Cigarette smoker Hyperglycemia due to type 2 diabetes mellitus UTI (urinary tract infection) (Acute) Tremor (Chronic) Hypomagnesemia (Acute) Hypokalemia (Acute) Dyspnea (Acute) Noncompliance (Chronic) Non compliance with medical treatment (Chronic) Delusional disorder Diarrhea (Chronic) Severe protein-calorie malnutrition Vertigo Hypomagnesemia Hypokalemia Dysphagia Early satiety Depression Anxiety (Chronic) Vitamin B12 deficiency Serum gamma globulin increased Psoriasis Obesity Low back pain Drug-induced tremor Arthralgia of multiple sites Tobacco abuse (Chronic) Diabetes type 2, uncontrolled IDDM Postmenopausal bleeding Thickened endometrium Mass of soft tissue Cervical mass Acute non-ST elevation myocardial infarction (NSTEMI) (Acute) Status post insertion of drug-eluting stent into left anterior descending (LAD) artery Chronic vulvitis S/P coronary artery stent placement (Chronic) 2 CHANTAL to LAD 10/22/2020 Thoracic spine pain Right upper quadrant abdominal pain (Acute) Diabetic nephropathy associated with type 2 diabetes mellitus Albuminuria Acute hyperglycemia (Acute) Fatigue Back pain Failure to thrive in adult Left upper quadrant pain Medical History CAD (coronary artery disease) Hypertension Hypothyroidism Chronic constipation Diabetes mellitus GERD (gastroesophageal reflux disease) Hyponatremia Vitamin D deficiency Diabetes mellitus type 2 in obese Acute on chronic combined systolic and diastolic CHF (congestive heart failure) Bradycardia with 41-50 beats per minute Hypokalemia Hypomagnesemia Accelerated hypertension Albuminuria Diabetic nephropathy associated with type 2 diabetes mellitus Depression Osteoarthritis Chronic headaches NSTEMI (non-ST elevated myocardial infarction) Vulvitis Dyslipidemia Tobacco abuse Obesity Anxiety Surgical History History of cardiac catheterization S/P coronary artery stent placement History of cholecystectomy History of dental surgery History of tonsillectomy Family History Unknown Diabetes Thyroid disorder Father Diabetes Other No family history of adverse response to anesthesia Denies family history of Ovarian cancer Prostate cancer Breast cancer Colorectal cancer Uterine cancer Social History (Updated 05/09/23 @ 13:14 by Holly Coleman LPN) Smoking Status: Former smoker Tobacco Type: Cigarettes packs per day: 0.5; Cigarettes Per Day: 10; Second Hand Exposure: No; Do You Dip or Chew Tobacco: No; Hx Alcohol Use: No Hx Substance Use: No Preferred Language: Wolof Communication Ability: Effective Visual Impairment: No Limitations Sheriffs Detective Required: No Beliefs That Will Affect Care: None marital status: Single Current Living Situation: Alone Current Living Situation Comment: lives in trailer current occupational status: disabled How many Children do You have: 0 Feels Safe at Home: Yes Safety Concerns Comment: Gets nervous sometimes because she lives alone, gets shaky from anxiety Diet: regular caffeine: Yes Dental Care, Regularly: No Physical Activity Frequency: Does not Exercise Seatbelt Use: always Sunscreen Use: No Assistive Devices: None Allergies Allergies Allergy/AdvReac Type Severity Reaction Status Date / Time dulaglutide [From Trulicity] AdvReac Intermediate stomach Verified 05/09/23 13:03 pain albiglutide [From Tanzeum] AdvReac Unknown CAN'T Verified 05/09/23 13:03 REMEMBER Home Meds Home Medications Medication Instructions Recorded Confirmed blood-glucose meter (eelusion 10/15/21 08/26/23 Autocode Meter kit) pantoprazole 40 mg tablet,delayed 40 mg PO QAM 12/19/22 08/26/23 release acetaminophen 500 mg tablet 1,000 mg PO Q8H PRN Pain 01/23/23 08/26/23 (Pharbetol) atorvastatin 80 mg tablet 80 mg PO HS 01/23/23 08/26/23 spironolactone 25 mg tablet 12.5 mg PO QAM 01/23/23 08/26/23 diclofenac sodium 1 % topical gel 2 g EXT QID PRN Pain 02/28/23 08/26/23 (Voltaren Arthritis Pain) levothyroxine 88 mcg tablet 88 mcg PO DAILYBB 02/28/23 08/26/23 polyethylene glycol 3350 17 gram 17 g PO BID PRN Constipation 05/07/23 08/26/23 oral powder packet (Miralax) fluvoxamine 50 mg tablet 50 mg PO HS 08/26/23 08/26/23 insulin regular hum U-500 conc 500 10 - 20 unit subcut BID 08/26/23 08/26/23 unit/mL(3 mL) subcut pen (Humulin R U-500 (Conc) Insulin Kwikpen) Previous Rx's Medication Instructions Recorded aspirin 81 mg tablet,delayed 81 mg PO QAM #30 tabs 10/29/22 release folic acid 1 mg tablet 1 mg PO QAM #90 tabs 04/07/23 gabapentin 100 mg capsule 200 mg (2 x 100 mg) PO BID 30 days 04/14/23 #120 caps bupropion HCl 150 mg 24 hr tablet, 150 mg PO QAM 90 days #90 tabs 05/05/23 extended release ticagrelor 90 mg tablet (Brilinta) 90 mg PO BID #60 tabs 08/11/23 pen needle, diabetic 32 gauge x #200 ea 08/22/23 5/32" (BD Ultra-Fine Cary Pen Needle) Results & Data (ED) Vital Signs Vital Signs - 24 hr 08/26/23 19:30 08/26/23 20:54 08/26/23 20:55 Temperature 36.7 C Temperature Source Temporal Artery Scan Pulse Rate 74 Pulse Rate [Apical] 68 Respiratory Rate 18 19 Respiratory Effort / Characteristics Non-Labored Spontaneous Non-Labored Spontaneous Respiratory Depth Normal Normal Respiratory Pattern Regular Blood Pressure 100/67 Blood Pressure [Right Arm] 110/64 Blood Pressure Mean 78 Blood Pressure Mean [Right Arm] 79 Pulse Oximetry 98 96 Oxygen Delivery Method Nasal Cannula Room Air Room Air Oxygen Flow Rate 2 Sepsis Recent Fever Within 48 Hours No Sepsis New/Unexplained Change in Mental Status No Sepsis Action Taken by Nursing No Action Required 08/26/23 20:58 08/26/23 22:35 Temperature Temperature Source Pulse Rate 68 Pulse Rate [Apical] 79 Respiratory Rate 19 Respiratory Effort / Characteristics Non-Labored Spontaneous Respiratory Depth Normal Respiratory Pattern Blood Pressure Blood Pressure [Right Arm] 110/64 Blood Pressure Mean Blood Pressure Mean [Right Arm] 79 Pulse Oximetry 93 Oxygen Delivery Method Room Air Oxygen Flow Rate Sepsis Recent Fever Within 48 Hours Sepsis New/Unexplained Change in Mental Status Sepsis Action Taken by Nursing Laboratory Data 08/26/23 19:50 08/26/23 19:50 Lab Results 08/26/23 08/26/23 Range/Units 19:50 20:01 WBC 12.39 H (4.8-10.8) K/ul RBC 4.25 (4.20-5.40) M/uL Hgb 11.5 L (12.0-16.0) g/dl Hct 33.4 L (37.0-47.0) % MCV 78.6 L (80.0-100.0) fL MCH 27.1 (25.0-34.0) pg MCHC 34.4 (32.0-36.0) g/dL RDW Std Deviation 40.0 (36.4-46.3) fL RDW Coeff of Umair 14.3 (11.5-14.5) % Plt Count 282 (130-400) K/uL MPV 11.0 (9.4-12.4) fL Immature Gran % (Auto) 0.4 % Neut % (Auto) 71.4 % Lymph % (Auto) 19.2 % Cannon % (Auto) 6.4 % Eos % (Auto) 2.4 % Baso % (Auto) 0.2 % Neut # (Auto) 8.84 H (1.40-6.50) K/uL Lymph # (Auto) 2.38 (1.20-3.40) K/uL Cannon # (Auto) 0.79 H (0.11-0.59) K/uL Eos # (Auto) 0.30 (0.00-0.50) K/uL Baso # (Auto) 0.03 (0.00-0.20) K/uL Immature Gran # (Auto) 0.05 (0.01-0.20) K/uL PT 10.6 (9.0-12.0) Seconds INR 1.0 (0.9-1.1) APTT 21 (21-31) Seconds PTT Ratio 0.8 Sodium 133 L (136-145) mmol/L Potassium 2.1 L* (3.5-5.1) mmol/L Chloride 96 L (98-107) mmol/L Carbon Dioxide 26 (21-32) mmol/L Anion Gap 11 (3-11) BUN 3 L (6-23) mg/dl Creatinine 0.89 (0.6-1.2) mg/dl Est Cr Clr Drug Dosing Not Reportable Est GFR ( Amer) 79.9 ml/min Est GFR (Non-Af Amer) 69.0 ml/min BUN/Creatinine Ratio 3.4 L (10-20) Glucose 324 H* (70-99(Fasting)) mg/dl POC Glucose 336 H* (70-99) mg/dl Calcium 7.6 L (8.6-10.3) mg/dl Magnesium 1.1 L (1.7-2.4) mg/dl Total Bilirubin 0.3 (0.2-1.0) mg/dl AST 12 L (13-39) U/L ALT 9 (7-52) U/L Alkaline Phosphatase 115 H (34-104) U/L Troponin I High Sens 8.1 (0-14) pg/ml B-Natriuretic Peptide 73 (0-100) pg/ml Total Protein 5.9 L (6.0-8.3) gm/dl Albumin 3.0 L (3.4-5.0) gm/dl Globulin 2.9 (2.5-4.0) gm/dl Albumin/Globulin Ratio 1.0 (0.9-2) Administered Medications Potassium Chloride (K Esa / Wtr) 10 meq in 100 mls @ 100 mls/hr IV Q1H [facility] Stop: 08/27/23 01:14 Last Admin: 08/26/23 22:26 Dose: 100 mls/hr Documented By: Infusion: 08/26/23 22:20 Dose: Infused Documented By: Admin: 08/26/23 21:20 Dose: 100 mls/hr Documented By: TITO Magnesium Sulfate/Dextrose (Magnesium Sulfate / D5w) 1 gm in 100 mls @ 100 mls/hr IV Q1H TONI Stop: 08/27/23 00:19 Last Admin: 08/26/23 22:30 Dose: 100 mls/hr Documented By: TITO Discharge Plan Visit Data Chief Complaint: Chest Pain Stated Complaint: Chest Pain x3days, SOB ED Provider: Karina Denise Discharge Problem: Chest pain, Hypomagnesemia, Acute hypokalemia, Prolonged QT interval, Diarrhea Forms Stand Alone Forms: My [facility] Prescriptions Prescriptions: No Action folic acid 1 mg tablet 1 mg PO QAM Qty: 90 3RF gabapentin 100 mg capsule 200 mg PO BID 30 Days Qty: 120 3RF bupropion HCl 150 mg tablet extended release 24 hr 150 mg PO QAM 90 Days Qty: 90 3RF Brilinta 90 mg tablet 90 mg PO BID Qty: 60 3RF (DME) pen needle, diabetic [BD Ultra-Fine [place] Pen Needle] 32 gauge x 5/32" needle See Dose Instructions .ROUTE .MEDSUPPLY Qty: 200 11RF Dose Instruction: As directed Rx Instructions: use 2 times daily or as directed by physician to monitor blood sugar (DME) blood-glucose meter [eelusion Autocode Meter] Kit See Rx Instructions .Route Rx Instructions: As directed aspirin 81 mg Tablet,Delayed Release (Dr/Ec) 81 mg PO QAM Qty: 30 0RF Rx Instructions: Over the counter pantoprazole 40 mg tablet,delayed release (DR/EC) 40 mg PO QAM Rx Instructions: TAKE ONE TABLET BY MOUTH ONCE DAILY acetaminophen [Pharbetol] 500 mg Tablet 1,000 mg PO Q8H PRN (Reason: Pain) atorvastatin 80 mg tablet 80 mg PO HS spironolactone 25 mg tablet 12.5 mg PO QAM diclofenac sodium [Voltaren Arthritis Pain] 1 % gel 2 g EXT QID PRN (Reason: Pain) levothyroxine 88 mcg tablet 88 mcg PO DAILYBB polyethylene glycol 3350 [Miralax] 17 gram powder in packet 17 g PO BID PRN (Reason: Constipation) fluvoxamine 50 mg tablet 50 mg PO HS Humulin R U-500 (Conc) Kwikpen 500 unit/mL (3 mL) insulin pen 10 - 20 unit SUBCUT BID Rx Instructions: ORDERED 35U BID BUT PT SAYS SHE DOESNT NEED THAT MUCH Referrals Referrals: Jc Zaman, [Primary Care Provider] -
--- NOTE | 2023-08-26 22:48 | History & Physical Report ---
Date of Service August 26, 2023 Assessment & Plan (1) Acute hypokalemia: (2) Hypomagnesemia: (3) Diarrhea: (4) Intractable nausea and vomiting: (5) Diabetes mellitus type 2 in obese: (6) CAD (coronary artery disease): (7) Hypertension: (8) Severe protein-calorie malnutrition: (9) Anxiety: (10) Depression: (11) Tobacco abuse: Plan Yolanda is a 62F w/ PMH of T2DM w/ neuropathy, HTN, CAD s/p CHANTAL to LAD, chronic constipation, tobacco use disorder, tremor, vertigo, dysphagia, depression w/ anxiety, psoriasis, and failure to thrive in adult a/w protein calorie malnutrition who presented to ED for chest discomfort and was found to have profound electrolyte abnormalities. Electrolyte Anomalies Hypokalemia | Hypomagnesemia - Hemodynamically stable on presentation - Past history of hypokalemia and hypomagnesemia, no outpatient supplementation - Electrolyte anomalies previously resulting in cardiac arrest/VTach/Torsades - K 2.1, K Esa x 4, continue supplementation IV as needed until off NPO, would restart PO K supplementation - Mg 1.1, 1g Mg x 2, continue supplementation IV as needed until off NPO, would restart PO Mg supplementation Would consider holding PPI d/t Mg lowering effect if hypomagnesemia robin mccarthy Elected to continue at this time due to concern for melena/UGIB - Likely d/t #2 chronic diarrhea and chronic malnutrition , further mgmt below Chronic Diarrhea | Reduced Appetite | +/- Gastroparesis in setting of T2DM - Chronic in nature, multiple recent admissions in setting of DM +/- gastroparesis - Hx of uncontrolled T2DM, known polypharmacy and poor understanding of medication regimen A1c ordered on admission, last A1c 10.2 01/24/23 - Ddx includes intestinal bacterial overgrowth and pancreatic exocrine insufficiency - Leukocytosis to 12.39, w/ neutrophil predominance - Stool GI/PCR and CDiff pending to eval for infectious etiology - Continue NPO w/ plans to ADAT following symptom control - T2DM: continue Q4H BSG checks while NPO, SSI ordered inpatinet Epigastric Pain | Melena - Hemoglobin chronically low, but stable on presentation - Ordered Hemoccult for all stools - Would proceed with further evaluation of stools Hemoccult positive Potential EGD, CTAP, and/or GI Consultation Chest Discomfort | Atypical Chest Pain - CXR, Troponin, and EKG negative - Reproducible w/ sternal pressure, likely MSK in nature Chronic Conditions: - Anemia: Chronic, at baseline - Hypothyroidism: continue levothyroxine - HTN: continue home antihypertensives - CAD s/p CHANTAL to LAD: Aspirin & Ticagrelor held d/t reported melena, would resume if Hemoccult negative - HLD: continue statin - Tobacco use disorder: Ongoing, encouraged cessation, wheezing on exam, Albuterol PRN - Dysphagia: continue PPI - Depression w/ anxiety; continue Bupropion and Fluvoxamine Code: Full Diet: NPO, pending clinical improvement IVFs: 1.5 x mIVF Dispo: PCU/Tele d/t severe electrolyte anomalies History of Present Illness Chief Complaint: Chest Discomfort Primary Care Provider: Jc Zaman DO Yolanda is a 62F w/ PMH of T2DM w/ neuropathy, HTN, CAD s/p CHANTAL to LAD, chronic constipation, tobacco use disorder, tremor, vertigo, dysphagia, depression w/ anxiety, psoriasis, and failure to thrive in adult a/w protein calorie malnutrition who presented to ED for chest discomfort and was found to have profound electrolyte abnormalities. ED: K Esa x 2, Mg x 1 g HPI: Chest discomfort and nausea for the last 3 days, has been having difficulty eating, no emesis. Has had diarrhea the last two days, has been moving bowels 5 times per day, notes her stools are dark but not black, denies BRBPM. Is having epigastric pain, was told in the past she had gastroparesis, but most recent GI visits have said this is not gastroparesis. Endorses occasional heartburn. No URI sx. Did start having difficulty breathing over the last 2-3 days, has felt like she was more tight/wheezy than usual. No hx of asthma or COPD, still smoking 5+ cigarettes in a day. Does endorses dizziness over the last 2-3 days, feels like when she gets up to walk she is unstable/unbalanced. Feels like her legs have been giving out on her. Has had hypokalemia in the past which required defibrillation. Had been on potassium and magnesium supplements but they were discontinued outpatient. Allergies Allergy/AdvReac Type Severity Reaction Status Date / Time dulaglutide [From [facility]] AdvReac Intermediate stomach Verified 05/09/23 13:03 pain albiglutide [From [facility]] AdvReac Unknown CAN'T Verified 05/09/23 13:03 REMEMBER Home Medications Medication Instructions Recorded Confirmed Type blood-glucose meter ([employer] 10/15/21 08/26/23 History Autocode Meter kit) aspirin 81 mg tablet,delayed 81 mg PO QAM #30 tabs 10/29/22 08/26/23 Rx release pantoprazole 40 mg tablet,delayed 40 mg PO QAM 12/19/22 08/26/23 History release acetaminophen 500 mg tablet 1,000 mg PO Q8H PRN Pain 01/23/23 08/26/23 History (Pharbetol) atorvastatin 80 mg tablet 80 mg PO HS 01/23/23 08/26/23 History spironolactone 25 mg tablet 12.5 mg PO QAM 01/23/23 08/26/23 History diclofenac sodium 1 % topical gel 2 g EXT QID PRN Pain 02/28/23 08/26/23 History (Voltaren Arthritis Pain) levothyroxine 88 mcg tablet 88 mcg PO DAILYBB 02/28/23 08/26/23 History folic acid 1 mg tablet 1 mg PO QAM #90 tabs 04/07/23 08/26/23 Rx gabapentin 100 mg capsule 200 mg (2 x 100 mg) PO BID 30 days 04/14/23 08/26/23 Rx #120 caps bupropion HCl 150 mg 24 hr tablet, 150 mg PO QAM 90 days #90 tabs 05/05/23 08/26/23 Rx extended release polyethylene glycol 3350 17 gram 17 g PO BID PRN Constipation 05/07/23 08/26/23 History oral powder packet (Miralax) ticagrelor 90 mg tablet (Brilinta) 90 mg PO BID #60 tabs 08/11/23 08/26/23 Rx pen needle, diabetic 32 gauge x #200 ea 08/22/23 08/26/23 Rx 5/32" (BD Ultra-Fine [place] Pen Needle) fluvoxamine 50 mg tablet 50 mg PO HS 08/26/23 08/26/23 History insulin regular hum U-500 conc 500 10 - 20 unit subcut BID 08/26/23 08/26/23 History unit/mL(3 mL) subcut pen (Humulin R U-500 (Conc) Insulin Kwikpen) Past Med/Surg History Problem List (Updated 08/26/23 @ 22:51 by Karina Denise MD) Diarrhea (Acute) Prolonged QT interval (Acute) Acute hypokalemia (Acute) Hypomagnesemia (Acute) Chest pain (Acute) Intractable nausea and vomiting (Acute) Hyperglycemia due to type 2 diabetes mellitus (Acute) Hypomagnesemia (Acute) Respiratory syncytial virus infection (Acute) Hypertension CAD (coronary artery disease) No remaining occlusive disease after 2 LAD drug eluting stents 10/22/20. Follows with Dr. Harris RSV (respiratory syncytial virus infection) SAMRA (acute kidney injury) Constipation Acute dehydration (Acute) Nausea & vomiting (Acute) Acute hypokalemia (Acute) Hyperglycemia (Acute) Hypomagnesemia (Acute) Chest pain (Acute) Chronic constipation Nausea (Acute) Abdominal pain, epigastric (Acute) Vitamin D deficiency Diabetes mellitus type 2 in obese Elevated creatine kinase Fall Elevated troponin Shock Fall (Acute) Hypocalcemia (Acute) Ventricular tachycardia (Acute) Respiratory arrest before cardiac arrest (Acute) Hypokalemia (Acute) Hypomagnesemia (Acute) Acute non-ST elevation myocardial infarction (NSTEMI) (Acute) Cigarette smoker Hyperglycemia due to type 2 diabetes mellitus UTI (urinary tract infection) (Acute) Tremor (Chronic) Hypomagnesemia (Acute) Hypokalemia (Acute) Dyspnea (Acute) Noncompliance (Chronic) Non compliance with medical treatment (Chronic) Delusional disorder Diarrhea (Chronic) Severe protein-calorie malnutrition Vertigo Hypomagnesemia Hypokalemia Dysphagia Early satiety Depression Anxiety (Chronic) Vitamin B12 deficiency Serum gamma globulin increased Psoriasis Obesity Low back pain Drug-induced tremor Arthralgia of multiple sites Tobacco abuse (Chronic) Diabetes type 2, uncontrolled IDDM Postmenopausal bleeding Thickened endometrium Mass of soft tissue Cervical mass Acute non-ST elevation myocardial infarction (NSTEMI) (Acute) Status post insertion of drug-eluting stent into left anterior descending (LAD) artery Chronic vulvitis S/P coronary artery stent placement (Chronic) 2 CHANTAL to LAD 10/22/2020 Thoracic spine pain Right upper quadrant abdominal pain (Acute) Diabetic nephropathy associated with type 2 diabetes mellitus Albuminuria Acute hyperglycemia (Acute) Fatigue Back pain Failure to thrive in adult Left upper quadrant pain Medical History CAD (coronary artery disease) Hypertension Hypothyroidism Chronic constipation Diabetes mellitus GERD (gastroesophageal reflux disease) Hyponatremia Vitamin D deficiency Diabetes mellitus type 2 in obese Acute on chronic combined systolic and diastolic CHF (congestive heart failure) Bradycardia with 41-50 beats per minute Hypokalemia Hypomagnesemia Accelerated hypertension Albuminuria Diabetic nephropathy associated with type 2 diabetes mellitus Depression Osteoarthritis Chronic headaches NSTEMI (non-ST elevated myocardial infarction) Vulvitis Dyslipidemia Tobacco abuse Obesity Anxiety Surgical History History of cardiac catheterization S/P coronary artery stent placement History of cholecystectomy History of dental surgery History of tonsillectomy Family History Unknown Diabetes Thyroid disorder Father Diabetes Other No family history of adverse response to anesthesia Denies family history of Ovarian cancer Prostate cancer Breast cancer Colorectal cancer Uterine cancer Social History (Updated 05/09/23 @ 13:14 by Holly Coleman LPN) Smoking Status: Current every day smoker Tobacco Type: Cigarettes packs per day: 0.5; Cigarettes Per Day: 5/ day; Second Hand Exposure: No; Do You Dip or Chew Tobacco: No; Tobacco Cessation Education Requested by Patient: No Hx Alcohol Use: No Hx Substance Use: No Preferred Language: Kyrgyz Communication Ability: Effective Visual Impairment: No Limitations Rug Backing Stenciler Required: No Beliefs That Will Affect Care: None marital status: Single Current Living Situation: Alone Current Living Situation Comment: lives in trailer current occupational status: disabled How many Children do You have: 0 Feels Safe at Home: Yes Safety Concerns: Feels Safe At This Time Safety Concerns Comment: Gets nervous sometimes because she lives alone, gets shaky from anxiety Diet: regular caffeine: Yes Dental Care, Regularly: No Physical Activity Frequency: Does not Exercise Seatbelt Use: always Sunscreen Use: No Assistive Devices: Walker Physical Exam Physical Exam: Gen: NAD, alert, interactive HEENT: Supple, no LAD, no thyromegaly, no JVD Resp:Non-labored, bilateral expiratory wheezing, otherwise CTAB CV:RRR, normal S1/S2, no M/R/G, sternal TTP Abd: Soft, non-distended, epigastric TTP, normoactive bowels, no masses Extr: 2+ dp bilaterally, 1+ LE edema Skin: No rashes lesions or erythema Results & Data Results & Data Vital Signs (Past 12 Hours) Vital Signs Temp Pulse Pulse Resp BP BP Pulse Ox 08/26/23 22:35 79 19 110/64 93 08/26/23 20:58 68 08/26/23 20:55 96 08/26/23 20:54 68 19 110/64 08/26/23 19:30 36.7 C 74 18 100/67 98 O2 Del Method O2 Flow Rate 08/26/23 22:35 Room Air 08/26/23 20:58 08/26/23 20:55 Room Air 08/26/23 20:54 Room Air 08/26/23 19:30 Nasal Cannula 2 Supervising Physician Co-Signing Physician Notes Attending addendum: I have physically seen this patient, have supervised the medical residents activities, and agree with the H&P unless as otherwise noted. Assessment and Plan: Electrolyte disturbances/hypokalemia/hypomagnesemia- Potassium 2.1, to receive 4K riders by ED, then recheck laboratories in a.m. Magnesium 1.1, to receive 2 g magnesium sulfate IV, then recheck laboratories in a.m. Hold PPI Address issues of ongoing diarrhea as major contributing process Diarrhea- Patient has had intermittent issues with diarrhea and electrolyte disturbances for at least 5 years She has had normal gastric emptying scans on 05/24/2021 and then 03/05/2023 She had normal MRCP's on 04/11/2021 and 09/10/2021 Considerations include but not limited to: Adverse reaction to PPI, exocrine pancreatic insufficiency, bacterial overgrowth syndrome, medical noncompliance Would consider a trial of pancreatic enzymes when she is taking p.o. again Stool PCR and C. difficile studies are pending Could consider small bowel follow-through studies to assess for dysmotility, separate from gastric emptying issue EGD on 04/09/2021 revealed chronic gastritis, with Helicobacter pylori negative Unknown when last colonoscopy performed, but may be indicated, along with consult to gastroenterology Remaining orders and notations as noted Resident Activity Tracking Resident Involvement: Resident Care Provided Care Provided: Adult [facility] Medicine (6) CAD (coronary artery disease) Associated angina: unspecified whether angina present Coronary Disease- Associated Artery/Lesion type: [place] artery [place] vs. transplanted heart: [place] heart Qualified Code(s): I25.10 - Atherosclerotic heart disease of [place] coronary artery without angina pectoris
[2023-08-27] MEDS ORDERED: GLUCAGON FOR INJ 1 MG VIAL SQ PRN (00:51)
[2023-08-27] MEDS ORDERED: GLUCOSE 10 TAB/TUBE PO PRN (00:51)
[2023-08-27] MEDS ORDERED: POLYETHYLENE (MIRALAX) 17 GM PACK PO PRN (00:51)
[2023-08-27] MEDS ORDERED: DEXTROSE 50% 50 ML SYRINGE IV PRN (00:51)
[2023-08-27] MEDS ORDERED: GLUCOSE 40% GEL 15 GM TUBE PO PRN (00:51)
[2023-08-27] MEDS ORDERED: CARBOHYDRATES FOR HYPOGLYCEMIA PO PRN (00:51)
[2023-08-27] MEDS ORDERED: Nursing to Pharmacy Communication SCH ×2 (01:15→20:30)
[2023-08-27] MEDS: FAMOTIDINE 20MG IV PUSH 20 MG/5 ML SYR IV SCH (01:52)
[2023-08-27] MEDS: ACETAMINOPHEN 500 MG TAB PO PRN (01:54)
[2023-08-27] MEDS: PANTOprazole 40 MG in SYRINGE 0 ML IV SCH (02:54)
[2023-08-27] MEDS ORDERED: ALBUTEROL HFA 8 GM INHALER INH PRN (05:16)
[2023-08-27] MEDS: LEVOTHYROXINE SODIUM 88 MCG TABLET PO SCH (06:07)
[2023-08-27 06:24] LABS: Hematocrit (blood only) 32.2 % (37.0-47.0); Hemoglobin 10.9 g/dl (12.0-16.0); Mean Corpuscular Hemoglobin 26.9 pg (25.0-34.0); Mean Corpuscular Hgb Conc 33.9 g/dL (32.0-36.0); Mean Corpuscular Volume 79.5 fL (80.0-100.0); Mean Platelet Volume 10.7 fL (9.4-12.4); Platelet Count 220 K/uL (130-400); RDW Coefficient of Variation 14.3 % (11.5-14.5); RDW Standard Deviation 41.2 fL (36.4-46.3); Red Blood Count 4.05 M/uL (4.20-5.40); White Blood Count 8.87 K/ul (4.8-10.8)
[2023-08-27] MEDS: INSULIN ASPART PER UNIT CHARGE SC SCH ×2 (06:29→21:00)
[2023-08-27 06:39] LABS: Albumin Globulin Ratio 1.1 (0.9-2); Albumin Level 2.7 gm/dl (3.4-5.0); BUN Creatinine Ratio 2.6 (10-20); Bilirubin,Total 0.3 mg/dl (0.2-1.0); Calcium 7.2 mg/dl (8.6-10.3); Creatinine Clr Calc Pharmacy 72.3 ml/min; Est GFR (African American) 95.2 ml/min; Est GFR (Non-African American) 82.2 ml/min; Globulin 2.5 gm/dl (2.5-4.0); Magnesium 1.7 mg/dl (1.7-2.4); Potassium 2.3 mmol/L (3.5-5.1); Total Protein 5.2 gm/dl (6.0-8.3)
--- NOTE | 2023-08-27 07:10 | Hospitalist Progress Note ---
"Date of Service August 27, 2023 Assessment & Plan (1) Acute hypokalemia: (2) Hypomagnesemia: (3) Diarrhea: (4) Intractable nausea and vomiting: (5) Diabetes mellitus type 2 in obese: (6) CAD (coronary artery disease): (7) Hypertension: (8) Severe protein-calorie malnutrition: (9) Anxiety: (10) Depression: (11) Tobacco abuse: Plan Yolanda is a 62F w/ PMH of T2DM w/ neuropathy, HTN, CAD s/p CHANTAL to LAD, chronic constipation, tobacco use disorder, tremor, vertigo, dysphagia, depression w/ anxiety, psoriasis, and failure to thrive in adult a/w protein calorie malnutrition who presented to ED for chest discomfort and was found to have profound electrolyte abnormalities. Electrolyte Anomalies Hypokalemia | Hypomagnesemia - Hemodynamically stable - Past history of hypokalemia and hypomagnesemia, no outpatient supplementation - Electrolyte anomalies previously resulting in cardiac arrest/VTach/Torsades - K 2.3 this AM. Repleted K IV 20meq, K 40meq PO. - K 2.6 on re-check this afternoon. K IV 30meq diluted, K 40meq PO. Monitoring BMP q6 hours. - Mg 1.7 this AM Would consider holding PPI d/t Mg lowering effect if hypomagnesemia persistent Elected to continue at this time due to concern for melena/UGIB - Likely d/t #2 chronic diarrhea and chronic malnutrition , further mgmt below Chronic Diarrhea | Reduced Appetite | +/- Gastroparesis in setting of T2DM - Chronic in nature, multiple recent admissions in setting of DM +/- gastroparesis - Hx of uncontrolled T2DM, known polypharmacy and poor understanding of medication regimen - A1c 12.0 - Stool GI/PCR and CDiff negative - Advancing diet due to improvement symptom control - T2DM blood glucose monitoring, SSI ordered Epigastric Pain | Melena - Hemoglobin chronically low, but stable on presentation - Ordered Hemoccult for all stools, one stool negative for FOBT today - Would proceed with further evaluation of stools Hemoccult positive Potential EGD, CTAP, and/or GI Consultation Chest Discomfort | Atypical Chest Pain - CXR, Troponin, and EKG negative - Reproducible w/ sternal pressure, likely MSK in nature Chronic Conditions: - Anemia: Chronic, at baseline - Hypothyroidism: continue levothyroxine - HTN: continue home antihypertensives - CAD s/p CHANTAL to LAD: Aspirin & Ticagrelor held d/t reported melena, would resume if Hemoccult negative - HLD: continue statin - Tobacco use disorder: Ongoing, encouraged cessation, wheezing on exam, Albuterol PRN - Dysphagia: continue PPI - Depression w/ anxiety; continue Bupropion and Fluvoxamine Code: Full Diet: Diabetes Dispo: PCU/Tele d/t severe electrolyte anomalies Admission and Anticipated Discharge Date Admission Date: August 26, 2023 Supervising Physician Co-Signing Physician Notes Attending attestation Pt seen and examined in concert with Dr. Leigh, . Dr. Alvarez. In agreement with the documented findings as noted in the resident documentation with any exceptions or additions as noted here. Reports ongoing fatigue while laying in bed with a small soft bowel movement just prior to evaluation. On examination, S1/S2 nl RRR no MCG. CTAB. Abd NT/ND BS+ve Hypokalemia and hypomagnesemia in the setting of previous arrhythmia due to same - continue aggressive repletion as noted. Apparent cause of loss has improved. Diarrhea, acute on chronic in the setting of diabetic gastroparesis - follow up stool studies for underlying etiology and monitor BM Else see resident documentation as noted. Subjective Yolanda is feeling a bit improved today. She is still experiencing abdominal pain in the left upper quadrant that radiates to her back. She no longer has diarrhea and is feeling constipated. Is passing flatus. Chest discomfort is still present. No vomiting. No chills. Review of Systems Review of Systems: see HPI Physical Exam Physical Exam: Gen: No acute distress, alert, interactive HEENT: Supple, no thyromegaly Resp:Non-labored, CV:NOrmal rate and rhythm, normal S1/S2, no M/R/G, chest tender to palpation Abd: Soft, non-distended, LUQ tendern to palpation, normoactive bowels, no masses Extr: 2+ dp bilaterally, 1+ LE edema Skin: No rashes lesions or erythema Results & Data Results & Data Vital Signs (Past 12 Hours) Vital Signs Temp Pulse Pulse Resp BP BP Pulse Ox 08/27/23 02:26 36.6 C 69 20 120/78 94 08/27/23 00:49 70 08/27/23 00:40 36.5 C 78 18 115/72 97 08/26/23 23:50 78 18 108/54 L 95 08/26/23 22:35 79 19 110/64 93 08/26/23 20:58 68 08/26/23 20:55 96 08/26/23 20:54 68 19 110/64 08/26/23 19:30 36.7 C 74 18 100/67 98 O2 Del Method O2 Flow Rate 08/27/23 02:26 Room Air 08/27/23 00:49 08/27/23 00:40 Room Air 08/26/23 23:50 Room Air 08/26/23 22:35 Room Air 08/26/23 20:58 08/26/23 20:55 Room Air 08/26/23 20:54 Room Air 08/26/23 19:30 Nasal Cannula 2 Resident Activity Tracking Resident Involvement: Resident Care Provided Care Provided: Adult Hospital Medicine Resident Supervision Co-Signing Physician Notes Patient seen and examined with Kristi Mcdonald MS4. Agree with documented findings as noted with any exception noted here Mild abdominal pain before and after bowel movement. She continue having diarrhea Hypokalemia- patient has history of arrhythmia. Minimal response on conservative repletion. Will continue with aggressive repletion Pending Hemoccult for possible melena. Denied any black stools on las BM Nausea and Diarrhea in the setting of chronic gastroparesis. Gave bowel rest. Will restarted diet and continue to monitor (6) CAD (coronary artery disease) Associated angina: unspecified whether angina present Coronary Disease- Associated Artery/Lesion type: [place] artery [place] vs. transplanted heart: [place] heart Qualified Code(s): I25.10 - Atherosclerotic heart disease of [place] coronary artery without angina pectoris"
--- NOTE | 2023-08-27 07:13 | XRay Report ---
XR chest 1V not portable HISTORY: Chest pain, nonspecific COMPARISON: Chest 05/07/2023. FINDINGS: The lungs are clear. The heart is mildly enlarged. No pleural effusions. No pneumothorax. N o evidence for pulmonary edema. No acute fractures. IMPRESSION: Stable mild cardiomegaly. Otherwise, no acute process within the chest. ACT 112: Negative or not required by law. Electronically signed by: Omid Pedroza M.D. 08/27/2023 7:11 AM
[2023-08-27 07:18] LABS: Estimated Average Glucose 298 mg/dl
[2023-08-27] MEDS: POTASSIUM CHLORIDE / WTR 10 MEQ/100 ML PLCT IV SCH ×2 (07:28→15:29)
[2023-08-27] MEDS: DICLOFENAC SOD 1% GEL 100 GM TUBE EXT PRN (07:29)
[2023-08-27] MEDS: buPROPion XL 150 MG TABCR PO SCH (08:44)
[2023-08-27] MEDS: FOLIC ACID 1 MG TAB PO SCH (08:44)
[2023-08-27] MEDS: GABAPENTIN 100 MG CAP PO SCH (08:44)
[2023-08-27] MEDS: SPIRONOLACTONE 12.5 MG TAB PO SCH (08:44)
[2023-08-27] MEDS ORDERED: TICAGRELOR 90 MG TAB PO SCH (09:00)
[2023-08-27] MEDS: POTASSIUM CHLORIDE CRTAB 20 MEQ TABCR PO STA ×3 (09:09→15:29)
--- NOTE | 2023-08-27 12:47 | Electrocardiogram Report ---
Test Reason : Blood Pressure : / mmHG Vent. Rate : 073 BPM Atrial Rate : 073 BPM P-R Int : 154 ms QRS Dur : 076 ms QT Int : 450 ms P-R-T Axes : 033 017 -14 degrees QTc Int : 495 ms Sinus rhythm with occasional Premature ventricular complexes Abnormal ECG When compared with ECG of 07-MAY-2023 18:23, Premature ventricular complexes are now Present Nonspecific T wave abnormality now evident in Lateral leads QT has lengthened Confirmed by Omer Andrade ([id number]) on 08/27/2023 12:47:43 PM Referred By: REFERRED SELF Confirmed By:Norberto Andrade
--- NOTE | 2023-08-27 12:49 | Electrocardiogram Report ---
Test Reason : Blood Pressure : / mmHG Vent. Rate : 072 BPM Atrial Rate : 072 BPM P-R Int : 164 ms QRS Dur : 066 ms QT Int : 430 ms P-R-T Axes : 046 046 -65 degrees QTc Int : 470 ms Normal sinus rhythm Low voltage QRS Abnormal ECG When compared with ECG of 26-AUG-2023 19:57, (unconfirmed) Premature ventricular complexes are no longer Present Inverted T waves have replaced nonspecific T wave abnormality in Lateral leads Confirmed by Omer Andrade ([id number]) on 08/27/2023 12:49:03 PM Referred By: REFERRED SELF Confirmed By:Norberto Andrade
[2023-08-27 12:51] LABS: BUN Creatinine Ratio 2.7 (10-20); Calcium 7.6 mg/dl (8.6-10.3); Creatinine Clr Calc Pharmacy 74.3 ml/min; Est GFR (African American) 98.3 ml/min; Est GFR (Non-African American) 84.8 ml/min; Potassium 2.6 mmol/L (3.5-5.1)
[2023-08-27 15:46] LABS: Adenovirus F 40/41 PCR Not Detected (NotDetected); Astrovirus PCR Not Detected (NotDetected); Campylobacter PCR Not Detected (NotDetected); Cryptosporidium PCR Not Detected (NotDetected); Cyclospora cayetanensis PCR Not Detected (NotDetected); Entamoeba histolytica PCR Not Detected (NotDetected); Enteroaggregative E.coli(EAEC) Not Detected (NotDetected); Enteropathogenic E.coli (EPEC) Not Detected (NotDetected); Enterotoxigenic E.coli (ETEC) Not Detected (NotDetected); Giardia lamblia PCR Not Detected (NotDetected); Norovirus GI/GII PCR Not Detected (NotDetected); Plesiomonas shigelloides PCR Not Detected (NotDetected); Rotavirus A PCR Not Detected (NotDetected); Salmonella PCR Not Detected (NotDetected); Sapovirus PCR Not Detected (NotDetected); Shiga-like Toxin E.coli (STEC) Not Detected (NotDetected); Shigella/Enteroinvasive E.coli Not Detected (NotDetected); Vibrio cholerae PCR Not Detected (NotDetected); Vibrio species PCR Not Detected (NotDetected); Yersinia enterocolitica PCR Not Detected (NotDetected)
[2023-08-27 20:31] LABS: BUN Creatinine Ratio 3.2 (10-20); Calcium 7.6 mg/dl (8.6-10.3); Creatinine Clr Calc Pharmacy 59.9 ml/min; Est GFR (African American) 75.8 ml/min; Est GFR (Non-African American) 65.4 ml/min; Potassium 3.2 mmol/L (3.5-5.1)
[2023-08-27] MEDS: fluvoxaMINE MALEATE 50 MG TAB PO SCH (20:50)
[2023-08-27] MEDS: ATORVASTATIN 40 MG TAB PO SCH (20:50)
--- NOTE | 2023-08-27 21:37 | Billing Data ---
Date of Service August 27, 2023 Coding Level of Care Code 73011 INT INP/OBS CARE
[2023-08-27] MEDS: POTASSIUM CHLORIDE / WTR 10 MEQ/100 ML PLCT IV ONE (22:11)
[2023-08-28 01:00] LABS: BUN Creatinine Ratio 4.6 (10-20); Calcium 8.1 mg/dl (8.6-10.3); Est GFR (African American) 82.2 ml/min; Est GFR (Non-African American) 70.9 ml/min; Potassium 3.3 mmol/L (3.5-5.1)
[2023-08-28] MEDS: POTASSIUM CHLORIDE / WTR 10 MEQ/100 ML PLCT IV ONE (01:56)
--- NOTE | 2023-08-28 07:04 | Hospitalist Progress Note ---
"Date of Service August 28, 2023 Assessment & Plan (1) Acute hypokalemia: (2) Hypomagnesemia: (3) Diarrhea: (4) Intractable nausea and vomiting: (5) Diabetes mellitus type 2 in obese: (6) CAD (coronary artery disease): (7) Hypertension: (8) Severe protein-calorie malnutrition: (9) Anxiety: (10) Depression: (11) Tobacco abuse: (12) Knee pain: Plan Yolanda is a 62F w/ PMH of T2DM w/ neuropathy, HTN, CAD s/p CHANTAL to LAD, chronic constipation, tobacco use disorder, tremor, vertigo, dysphagia, depression w/ anxiety, psoriasis, and failure to thrive in adult a/w protein calorie malnutrition who presented to ED for chest discomfort and was found to have profound electrolyte abnormalities. Electrolyte Anomalies Hypokalemia | Hypomagnesemia - Hemodynamically stable - Past history of hypokalemia and hypomagnesemia, no outpatient supplementation - Electrolyte anomalies previously resulting in cardiac arrest/VTach/Torsades - K 3.3 this AM. Repleted K 40meq PO. Monitoring BMP q6 hours. - Mg 1.75 this AM. Repleting Mg 1gm IV. Would consider holding PPI d/t Mg lowering effect if hypomagnesemia persistent Elected to continue at this time due to concern for melena/UGIB - Likely d/t #2 chronic diarrhea and chronic malnutrition , further mgmt below Chronic Diarrhea | Reduced Appetite | +/- Gastroparesis in setting of T2DM - Chronic in nature, multiple recent admissions in setting of DM +/- gastroparesis - Hx of uncontrolled T2DM, known polypharmacy and poor understanding of medication regimen - A1c 12.0 - Stool GI/PCR and CDiff negative - Clear diet, patient is reporting increased pain with eating - KUB today: nonobstructive bowel gas pattern - T2DM blood glucose monitoring, SSI changed due to inadequate control Epigastric Pain | Melena - Hemoglobin chronically low, but stable on presentation - Ordered Hemoccult for all stools, one stool negative for FOBT today - See plan for diarrhea - Would proceed with further evaluation of stools Hemoccult positive Potential EGD, CTAP, and/or GI Consultation Knee pain - Likely osteoarthritis given chronicity - Knee XRay today: soft tissue swelling with mild degenerative changes. - Continue voltaren PRN. Chest Discomfort | Atypical Chest Pain - CXR, Troponin, and EKG negative - Reproducible w/ sternal pressure, likely MSK in nature Chronic Conditions: - Anemia: Chronic, at baseline - Hypothyroidism: continue levothyroxine - HTN: continue home antihypertensives - CAD s/p CHANTAL to LAD: Aspirin & Ticagrelor held d/t reported melena, would resume if Hemoccult negative - HLD: continue statin - Tobacco use disorder: Ongoing, encouraged cessation, wheezing on exam, Albuterol PRN - Dysphagia: continue PPI - Depression w/ anxiety; continue Bupropion and Fluvoxamine Code: Full Diet: Diabetes Dispo: PCU/Tele d/t severe electrolyte anomalies Admission and Anticipated Discharge Date Admission Date: August 26, 2023 Supervising Physician Co-Signing Physician Notes ATTESTATION I also saw the patient and confirmed real portions of the history and exam. I agree with the impression and plan in the resident documentation, and as summarized below. Resting comfortably. She still complains of generalized abdominal pain. Seems similar to the pain she had back in March; she thinks maybe this is more generalized were back in March send epigastric, but she has not completely sure about that. EXAM 129/82, 69, 18, 36.6, 95% on room air Heart regular rate and rhythm Respirations nonlabored Abdomen soft, no masses appreciated. Positive bowel sounds. No tenderness but she complains of a mild to moderate abdominal pain throughout all quadrants. DATA Labs Hemoglobin 11.5 Sodium 135, potassium 4.0, BUN 5, creatinine 0.93 Magnesium 1.5 Imaging KUB From 08/28/2023 shows nonobstructive bowel gas pattern, there does seem to be some mildly increased fecal load. IMPRESSION & PLAN Abdominal pain, Acute on chronic MiraLAX Electrolyte abnormalities Repeat and monitor Additional per resident documentation Subjective Yolanda is still having stomach pain, although she endorses that she always has stomach pain. It previously has responded well to antacids and carafate. She does report NSAID use. The stomach pain is worse with eating. She further reports right knee pain that is painful all the time, no relieving factors. Her knee does not get stiff. No vomiting. No fever or chills. No diarrhea. Review of Systems Review of Systems: see HPI Physical Exam Physical Exam: Gen: No acute distress, alert, interactive HEENT: Supple, no thyromegaly Resp:Non-labored, clear to auscultation bilaterally CV:Normal rate and rhythm, normal S1/S2, no M/R/G, chest tender to palpation Abd: Soft, non-distended, LUQ tenderness to palpation, normoactive bowels, no masses Extr: no LE edema Skin: No rashes lesions or erythema Results & Data Results & Data Vital Signs (Past 12 Hours) Vital Signs Temp Pulse Pulse Resp BP Pulse Ox O2 Del Method 08/28/23 02:18 36.7 C 72 20 134/83 95 Room Air 08/27/23 23:00 36.7 C 60 18 113/70 96 Room Air 08/27/23 22:04 66 08/27/23 19:33 36.6 C 72 16 130/81 94 Room Air Resident Activity Tracking Resident Involvement: Resident Care Provided Care Provided: Adult [facility] Medicine Resident Supervision Co-Signing Physician Notes Patient seen and examined with Kristi Mcdonald MS4. Agree with documented findings as noted with any exception noted here Mild abdominal pain before and after bowel movement. No diarrhea today. KUB ordered today: no findings of SBO Hypokalemia- resolved. Continue PO Potassium 40 meQ. Magnesium replaced today. Follows AM labs Negative Hemoccult- Denied any black stools on las BM Nausea and Diarrhea in the setting of chronic gastroparesis. Gave bowel rest. Will restarted diet and continue to monitor. Liquid diet today. (6) CAD (coronary artery disease) Associated angina: unspecified whether angina present Coronary Disease- Associated Artery/Lesion type: [place] artery [place] vs. transplanted heart: [place] heart Qualified Code(s): I25.10 - Atherosclerotic heart disease of [place] coronary artery without angina pectoris"
[2023-08-28 07:11] LABS: Basophils # (auto) 0.02 K/uL (0.00-0.20); Basophils % (auto) 0.3 %; Eosinophils # (auto) 0.55 K/uL (0.00-0.50); Eosinophils % (auto) 7.5 %; Hematocrit (blood only) 33.2 % (37.0-47.0); Hemoglobin 10.9 g/dl (12.0-16.0); Immature Granulocytes # (auto) 0.02 K/uL (0.01-0.20); Immature Granulocytes % (auto) 0.3 %; Lymphocytes # (auto) 2.33 K/uL (1.20-3.40); Lymphocytes % (auto) 31.8 %; Mean Corpuscular Hgb Conc 32.8 g/dL (32.0-36.0); Mean Corpuscular Volume 82.4 fL (80.0-100.0); Mean Platelet Volume 10.9 fL (9.4-12.4); Monocytes % (auto) 6.8 %; Neutrophils % (auto) 53.3 %; Platelet Count 223 K/uL (130-400); RDW Coefficient of Variation 14.6 % (11.5-14.5); RDW Standard Deviation 43.1 fL (36.4-46.3); Red Blood Count 4.03 M/uL (4.20-5.40); White Blood Count 7.32 K/ul (4.8-10.8)
[2023-08-28 07:30] LABS: Magnesium 1.5 mg/dl (1.7-2.4); Phosphorus 3.1 mg/dl (2.5-4.9)
[2023-08-28 07:32] LABS: BUN Creatinine Ratio 5.3 (10-20); Calcium 7.7 mg/dl (8.6-10.3); Creatinine Clr Calc Pharmacy 73.7 ml/min; Est GFR (African American) 96.8 ml/min; Est GFR (Non-African American) 83.5 ml/min; Potassium 3.3 mmol/L (3.5-5.1)
[2023-08-28] MEDS: POTASSIUM CHLORIDE CRTAB 20 MEQ TABCR PO SCH (08:20)
[2023-08-28] MEDS: MAGNESIUM SULFATE / D5W 1 GM/100 ML BAG IV SCH (08:27)
[2023-08-28] MEDS: SUCRALFATE 1 GM TAB PO SCH (10:13)
--- NOTE | 2023-08-28 11:16 | XRay Report ---
RIGHT KNEE 2 VIEWS CLINICAL HISTORY: Right knee pain. FINDINGS: Portable AP and crosstable lateral views of the right knee are compared to study dated 2016. The skeletal structures are osteopenic. No fracture is seen. There is mild tricompartmental deg enerative joint space narrowing. There is degenerative beaking of the tibial spine. There is no signi ficant joint effusion. Mild soft tissue swelling is seen around the knee. A calcified fabella is inci dentally noted. There is advanced atherosclerotic calcification of the popliteal artery. IMPRESSION: Soft tissue swelling with no acute bony abnormality identified. Electronically signed by: Lalito Cisse M.D. 08/28/2023 11:15 AM
--- NOTE | 2023-08-28 11:38 | XRay Report ---
KUB HISTORY: Acute generalized abdominal pain pain COMPARISON: KUB 04/12/2023 FINDINGS: Right abdominal surgical clips. Coronary arterial stent. Nonobstructive bowel gas pattern. Limited exam secondary to patient body habitus. No renal calculi. No ureteral calculi. No pneumoperi toneum or pneumatosis. No fracture. IMPRESSION: Nonobstructive bowel gas pattern. ACT 112: Negative or not required by law. The above report was generated using voice recognition software. It may contain grammatical, syntax o r spelling errors. Electronically signed by: Willard Cooper M.D. 08/28/2023 11:37 AM
[2023-08-28 13:12] LABS: BUN Creatinine Ratio 6.1 (10-20); Calcium 8.1 mg/dl (8.6-10.3); Creatinine Clr Calc Pharmacy 68.3 ml/min; Est GFR (African American) 88.3 ml/min; Est GFR (Non-African American) 76.2 ml/min; Potassium 3.7 mmol/L (3.5-5.1)
[2023-08-28] MEDS: HYDROmorphone INJ 0.5 MG/0.5 ML SYR IV STA (21:19)
[2023-08-28] MEDS: SUCRALFATE 1 GM/10 ML UDC PO SCH (22:07)
[2023-08-29 07:15] LABS: BUN Creatinine Ratio 5.4 (10-20); Calcium 8.1 mg/dl (8.6-10.3); Creatinine Clr Calc Pharmacy 76.4 ml/min; Est GFR (African American) 99.9 ml/min; Est GFR (Non-African American) 86.2 ml/min; Magnesium 1.5 mg/dl (1.7-2.4); Phosphorus 3.6 mg/dl (2.5-4.9); Potassium 3.2 mmol/L (3.5-5.1)
[2023-08-29] MEDS: MAGNESIUM SULFATE / D5W 1 GM/100 ML BAG IV SCH (07:57)
[2023-08-29 08:18] LABS: Basophils # (auto) 0.02 K/uL (0.00-0.20); Basophils % (auto) 0.3 %; Eosinophils # (auto) 0.72 K/uL (0.00-0.50); Eosinophils % (auto) 9.1 %; Hematocrit (blood only) 35.2 % (37.0-47.0); Hemoglobin 11.5 g/dl (12.0-16.0); Immature Granulocytes # (auto) 0.02 K/uL (0.01-0.20); Immature Granulocytes % (auto) 0.3 %; Lymphocytes # (auto) 1.92 K/uL (1.20-3.40); Lymphocytes % (auto) 24.3 %; Mean Corpuscular Hemoglobin 26.7 pg (25.0-34.0); Mean Corpuscular Hgb Conc 32.7 g/dL (32.0-36.0); Mean Corpuscular Volume 81.7 fL (80.0-100.0); Mean Platelet Volume 10.5 fL (9.4-12.4); Monocytes # (auto) 0.42 K/uL (0.11-0.59); Monocytes % (auto) 5.3 %; Neutrophils # (auto) 4.81 K/uL (1.40-6.50); Neutrophils % (auto) 60.7 %; Platelet Count 223 K/uL (130-400); RDW Coefficient of Variation 14.7 % (11.5-14.5); RDW Standard Deviation 43.2 fL (36.4-46.3); Red Blood Count 4.31 M/uL (4.20-5.40); White Blood Count 7.91 K/ul (4.8-10.8)
[2023-08-29] MEDS ORDERED: PHARMACY GLYCEMIC MGMT CONSULT PRN (11:13)
--- NOTE | 2023-08-29 12:08 | Hospitalist Progress Note ---
"Date of Service August 29, 2023 Assessment & Plan (1) Acute hypokalemia: (2) Hypomagnesemia: (3) Diarrhea: (4) Intractable nausea and vomiting: (5) Diabetes mellitus type 2 in obese: (6) CAD (coronary artery disease): (7) Hypertension: (8) Severe protein-calorie malnutrition: (9) Anxiety: (10) Depression: (11) Tobacco abuse: (12) Knee pain: Plan Yolanda is a 62F w/ PMH of T2DM w/ neuropathy, HTN, CAD s/p CHANTAL to LAD, chronic constipation, tobacco use disorder, tremor, vertigo, dysphagia, depression w/ anxiety, psoriasis, and failure to thrive in adult a/w protein calorie malnutrition who presented to ED for chest discomfort and was found to have profound electrolyte abnormalities. Electrolyte Anomalies Hypokalemia | Hypomagnesemia - Hemodynamically stable - Past history of hypokalemia and hypomagnesemia, no outpatient supplementation - Electrolyte anomalies previously resulting in cardiac arrest/VTach/Torsades - K 3.2 this AM. Repleted K 40meq PO (daily). Monitoring BMP q6 hours. - Mg 1.5 this AM. Repleted Mg 2gm IV. -BMP, Mg, Phosphorus AM Overflow diarrhea/ Reduced Appetite | +/- Gastroparesis in setting of T2DM - Chronic in nature, multiple recent admissions in setting of DM +/- gastroparesis - Hx of uncontrolled T2DM, known polypharmacy and poor understanding of medication regimen - A1c 12.0 - Stool GI/PCR and CDiff negative - Advancing diet as tolerated - KUB- no obstruction, stool burden - Miralax once daily - Pharmacy consulted Epigastric Pain | Melena - Hemoglobin chronically low, but stable - Hemoccult for all stools, no stools since two days ago but was negative - See plan for diarrhea - PPIs Knee pain - Likely osteoarthritis given chronicity - Knee XRay: soft tissue swelling with mild degenerative changes. - Continue voltaren PRN. Chest Discomfort | Atypical Chest Pain - CXR, Troponin, and EKG negative - Reproducible w/ sternal pressure, likely MSK in nature Chronic Conditions: - Anemia: Chronic, at baseline - Hypothyroidism: continue levothyroxine - HTN: continue home antihypertensives - CAD s/p CHANTAL to LAD: Aspirin & Ticagrelor held d/t reported melena, would resume if Hemoccult negative - HLD: continue statin - Tobacco use disorder: Ongoing, encouraged cessation, wheezing on exam, Albuterol PRN - Dysphagia: continue PPI - Depression w/ anxiety; continue Bupropion and Fluvoxamine Code: Full Diet: Diabetes Dispo: PCU/Tele d/t severe electrolyte anomalies Admission and Anticipated Discharge Date Admission Date: August 26, 2023 Supervising Physician Co-Signing Physician Notes ATTESTATION I also saw the patient and confirmed real portions of the history and exam. I agree with the impression and plan in the resident documentation, and as summarized below. Resting comfortably. She still complains of generalized abdominal pain. Seems similar to the pain she had back in March; she thinks maybe this is more generalized were back in March send epigastric, but she has not completely sure about that. EXAM 129/82, 69, 18, 36.6, 95% on room air Heart regular rate and rhythm Respirations nonlabored Abdomen soft, no masses appreciated. Positive bowel sounds. No tenderness but she complains of a mild to moderate abdominal pain throughout all quadrants. DATA Labs Hemoglobin 11.5 Sodium 135, potassium 4.0, BUN 5, creatinine 0.93 Magnesium 1.5 Imaging KUB From 08/28/2023 shows nonobstructive bowel gas pattern, there does seem to be some mildly increased fecal load. IMPRESSION & PLAN Abdominal pain, Acute on chronic MiraLAX Electrolyte abnormalities Repeat and monitor Additional per resident documentation Subjective Yolanda is having more stomach pain today, with no bowel movement in two days. She further reports general aches and pains. No vomiting or diarrhea. No fever or chills. She is interested in trying regular food today. Review of Systems Review of Systems: see HPI Physical Exam Physical Exam: Gen: No acute distress, alert, interactive HEENT: Supple, no thyromegaly Resp:Non-labored, clear to auscultation bilaterally CV:Normal rate and rhythm, normal S1/S2, no M/R/G, chest tender to palpation Abd: Soft, non-distended, tenderness to palpation throughout, upper quadrants worse than lower, normoactive bowels, no masses Extr: no LE edema Skin: No rashes lesions or erythema Results & Data Results & Data Vital Signs (Past 12 Hours) Vital Signs Temp Pulse Pulse Resp BP BP Pulse Ox 08/29/23 11:17 36.3 C L 71 18 180/97 H 98 08/29/23 07:45 72 08/29/23 07:10 36.6 C 83 17 149/84 H 95 08/29/23 02:52 36.6 C 70 18 104/70 91 O2 Del Method 08/29/23 11:17 Room Air 08/29/23 07:45 08/29/23 07:10 Room Air 08/29/23 02:52 Room Air Resident Activity Tracking Resident Involvement: Resident Care Provided Care Provided: Adult [facility] Medicine Resident Supervision Co-Signing Physician Notes Patient seen and examined with Kristi Mcdonald MS4. Agree with documented findings as noted with any exception noted here Seen this morning, refers still moderate abdominal pain + nausea. No BM since 2 days ago. Mild abdominal pain/ N+V/ Gastroparesis 2/2 T2DM - KUB with no sbo but stool burden noticed. Will do a Miralax trial. Tolerated liquid diet, will advance diet as tolerated T2DM - Poorly control. A1C : 12. Pharmacy glycemic management consult placed for better tight control Hypokalemia- Continue PO AM Potassium 40 meQ. Magnesium replaced today. Follows AM labs Negative Hemoccult- Denied any black stools on las BM (6) CAD (coronary artery disease) Associated angina: unspecified whether angina present Coronary Disease- Associated Artery/Lesion type: [place] artery [place] vs. transplanted heart: [place] heart Qualified Code(s): I25.10 - Atherosclerotic heart disease of [place] coronary artery without angina pectoris"
[2023-08-29] MEDS: LANTUS PER UNIT CHARGE SC ONE (12:18)
[2023-08-29] MEDS: POLYETHYLENE (MIRALAX) 17 GM PACK PO SCH (12:18)
--- NOTE | 2023-08-29 13:13 | Pharmacy Report ---
Pharmacy Glycemic Short Note 2 - Date of Service August 29, 2023 - Glycemic Short BSG Results (Last 24 hours): 08/28/23 08/28/23 08/28/23 12:29 16:07 20:15 Glucose 293 H POC Glucose 159 H 262 H 08/29/23 08/29/23 08/29/23 06:11 07:09 11:17 Glucose 176 H POC Glucose 195 H 252 H OUTPATIENT ANTIDIABETIC REGIMEN: * Humulin R (U-500) 35 units SC BID HbA1c: 12% (08/27/23) ASSESSMENT: * LH is a 62 year old female who presented to ED on 08/26/23 with chest pain, found to have significant electrolyte abnormalities (namely hypokalemia/hypomagnesemia, 2.1 mmol/L and 1.1 mg/dL respectively). Of note, patient does have history of cardiac arrest/Vtach, and Torsades de pointes. Electrolytes now much improved. * Patient was managed with SC bolus insulin only since time of admission, pharmacy consulted for glycemic management on 08/29/23 * Patient known to pharmacy glycemic service due to multiple admissions/consults * Patient historically very fearful of hypoglycemia PLAN FOR INPATIENT GLYCEMIC CONTROL: * Hold outpatient U-500 insulin * Basal insulin * Lantus 15 units SC x 1 * Reassess in AM * Bolus insulin * NovoLog per scale ACHS or Q6hrs while NPO * Goal Range: Low 120 mg/dL - High 160 mg/dL * Correction Factor: 30 mg/dL/unit * Nutritional / Prandial insulin per carb ratio of 1 unit per 9 grams CHO consumed
[2023-08-29 13:17] LABS: BUN Creatinine Ratio 5.4 (10-20); Creatinine Clr Calc Pharmacy 60.8 ml/min; Est GFR (African American) 75.8 ml/min; Est GFR (Non-African American) 65.4 ml/min
[2023-08-30 06:11] LABS: Basophils # (auto) 0.03 K/uL (0.00-0.20); Basophils % (auto) 0.3 %; Eosinophils # (auto) 0.72 K/uL (0.00-0.50); Eosinophils % (auto) 8.3 %; Hematocrit (blood only) 34.6 % (37.0-47.0); Hemoglobin 11.3 g/dl (12.0-16.0); Immature Granulocytes # (auto) 0.03 K/uL (0.01-0.20); Immature Granulocytes % (auto) 0.3 %; Lymphocytes # (auto) 2.38 K/uL (1.20-3.40); Lymphocytes % (auto) 27.4 %; Mean Corpuscular Hemoglobin 27.1 pg (25.0-34.0); Mean Corpuscular Hgb Conc 32.7 g/dL (32.0-36.0); Mean Platelet Volume 11.1 fL (9.4-12.4); Monocytes # (auto) 0.53 K/uL (0.11-0.59); Monocytes % (auto) 6.1 %; Neutrophils % (auto) 57.6 %; Platelet Count 231 K/uL (130-400); RDW Coefficient of Variation 14.7 % (11.5-14.5); RDW Standard Deviation 44.8 fL (36.4-46.3); Red Blood Count 4.17 M/uL (4.20-5.40); White Blood Count 8.69 K/ul (4.8-10.8)
[2023-08-30 06:18] LABS: Calcium 8.4 mg/dl (8.6-10.3); Magnesium 1.6 mg/dl (1.7-2.4); Potassium 3.6 mmol/L (3.5-5.1)
[2023-08-30 06:23] LABS: BUN Creatinine Ratio 5.4 (10-20); Creatinine Clr Calc Pharmacy 61.1 ml/min; Est GFR (African American) 76.8 ml/min; Est GFR (Non-African American) 66.3 ml/min; Phosphorus 3.9 mg/dl (2.5-4.9)
[2023-08-30] MEDS ORDERED: MAGNESIUM SULFATE / D5W 1 GM/100 ML BAG IV SCH (07:30)
[2023-08-30] MEDS: MAGNESIUM SULFATE / D5W 1 GM/100 ML BAG IV ONE (07:57)
[2023-08-30] MEDS: LANTUS PER UNIT CHARGE SC SCH (08:06)
[2023-08-30] MEDS: KETOROLAC TROMETHAMINE 15 MG/ML VIAL IV ONE (08:07)
--- NOTE | 2023-08-30 09:05 | Hospitalist Progress Note ---
"Date of Service August 30, 2023 Assessment & Plan (1) Acute hypokalemia: (2) Hypomagnesemia: (3) Diarrhea: (4) Intractable nausea and vomiting: (5) Diabetes mellitus type 2 in obese: (6) CAD (coronary artery disease): (7) Hypertension: (8) Severe protein-calorie malnutrition: (9) Anxiety: (10) Depression: (11) Tobacco abuse: (12) Knee pain: Plan Yolanda is a 62F w/ PMH of T2DM w/ neuropathy, HTN, CAD s/p CHANTAL to LAD, chronic constipation, tobacco use disorder, tremor, vertigo, dysphagia, depression w/ anxiety, psoriasis, and failure to thrive in adult a/w protein calorie malnutrition who presented to ED for chest discomfort and was found to have profound electrolyte abnormalities. Abdominal pain/ Reduced Appetite | +/- Gastroparesis in setting of T2DM - multiple recent admissions in setting of DM +/- gastroparesis - Hx of uncontrolled T2DM - Stool GI/PCR and CDiff negative - Advancing diet as tolerated - KUB- no obstruction, stool burden - Miralax will increased to BID - CT abdomen with contrast ordered today - Continue to monitor T2DM - uncontrolled - A1C: 12.0 - Lantus 15 units - NovoLog per ACHS - Pharmacy consulted Electrolyte Anomalies Hypokalemia | Hypomagnesemia - resolved - Hemodynamically stable - Past history of hypokalemia and hypomagnesemia, no outpatient supplementation - Electrolyte anomalies previously resulting in cardiac arrest/VTach/Torsades - Replaced as needed - Potassium 40 mEq daily -BMP, Mg, Phosphorus AM Epigastric Pain - Hemoglobin chronically low, but stable - Hemoccult for all stools, negative - PPIs Knee pain - Likely osteoarthritis given chronicity - Knee XRay: soft tissue swelling with mild degenerative changes. - Continue voltaren PRN. - Tramadol prn Chest Discomfort | Atypical Chest Pain - resolved - CXR, Troponin, and EKG negative - Reproducible w/ sternal pressure, likely MSK in nature Chronic Conditions: - Anemia: Chronic, at baseline - Hypothyroidism: continue levothyroxine - HTN: continue home antihypertensives - CAD s/p CHANTAL to LAD: Aspirin & Ticagrelor held d/t reported melena, would resume if Hemoccult negative - HLD: continue statin - Tobacco use disorder: Ongoing, encouraged cessation, wheezing on exam, Albuterol PRN - Dysphagia: continue PPI - Depression w/ anxiety; continue Bupropion and Fluvoxamine Code: Full Diet: Diabetes DVT prophylaxis: Lovenox sq Dispo: PCU/Tele d/t severe electrolyte anomalies Admission and Anticipated Discharge Date Admission Date: August 26, 2023 Supervising Physician Co-Signing Physician Notes ATTESTATION I also saw the patient and confirmed real portions of the history and exam. I agree with the impression and plan in the resident documentation, and as summarized below. She is sleeping but awakens to voice. She tells us that the abdominal pain is somewhat improved, but still comes and goes. Pain today seems to be bilateral lower quadrants. Less of the epigastric discomfort that she had previously. EXAM 158/47, 75, 17, afebrile, 96% on room air Heart regular rate and rhythm Respirations nonlabored Abdomen soft, no masses appreciated. Positive bowel sounds. Tenderness in the left and right lower quadrants, no rebound or guarding. DATA Labs Hemoglobin 11.3 Sodium 139, potassium 3.6, BUN 5, creatinine 0.90 Magnesium 1.6 IMPRESSION & PLAN Abdominal pain, Acute on chronic Seems to be more lower abdominal pain today Do note history of diverticulosis on previous exams CT abdomen and pelvis today Increase MiraLAX Electrolyte abnormalities Repeat and monitor Additional per resident documentation Subjective Seen this am. Abdominal pain had not improved. Nausea present no vomits. Tolerating diet. Will repeat CTAbdomen today She further reports general aches and pains. No vomiting or diarrhea. No fever or chills. Review of Systems Review of Systems: as pe HPI Physical Exam Physical Exam: Gen: No acute distress, alert, interactive HEENT: Supple, no thyromegaly Resp:Non-labored, clear to auscultation bilaterally CV:Normal rate and rhythm, normal S1/S2, no M/R/G, chest tender to palpation Abd: Soft, non-distended, tenderness to palpation throughout, upper quadrants worse than lower, normoactive bowels, no masses Extr: no LE edema Skin: No rashes lesions or erythema Constitutional: WD/WN, vitals as above ENMT: external ear and nose normal, oropharynx normal Respiratory: normal respiratory effort, lungs clear to auscultation Cardiovascular: RRR, no murmur, no edema Gastrointestinal (Abdomen): Inspection/Auscultation: normal bowel sounds; abdomen not distended Percussion/Palpation: + abdomen tender (Lower quadrant) and abdomen soft; no abdominal mass Results & Data Results & Data Vital Signs (Past 12 Hours) Vital Signs Temp Pulse Resp BP Pulse Ox O2 Del Method 08/30/23 07:13 36.6 C 85 18 158/86 H 97 Room Air 08/30/23 02:35 36.6 C 76 18 134/76 95 Room Air 08/29/23 22:56 36.6 C 65 18 132/77 97 Room Air Resident Activity Tracking Resident Involvement: Resident Care Provided Care Provided: Adult Hospital Medicine (6) CAD (coronary artery disease) Associated angina: unspecified whether angina present Coronary Disease- Associated Artery/Lesion type: [place] artery [place] vs. transplanted heart: [place] heart Qualified Code(s): I25.10 - Atherosclerotic heart disease of [place] coronary artery without angina pectoris"
[2023-08-30] MEDS: OPTIRAY 320 100ml IV ONE (15:04)
[2023-08-30] MEDS: ENOXAPARIN INJ 40 MG/0.4 ML SYR SQ SCH (15:18)
--- NOTE | 2023-08-30 16:19 | Ultrasound Report ---
ULTRASOUND BILATERAL LOWER EXTREMITY VENOUS CLINICAL HISTORY: Leg pain and swelling. COMPARISON STUDY: Bilateral lower extremity venous ultrasound dated 04/23/2027. TECHNIQUE: Real-time, grayscale, and color Doppler sonography of the deep veins of the right and left lower extremity was performed from the inguinal crease to the calf. Compression and augmentation wer e utilized. FINDINGS: There is no sonographic evidence of deep venous thrombosis identified in the right or left lower extremity. The common femoral, superficial femoral, and popliteal veins are patent and normally compressible bilaterally. The greater saphenous vein and the profunda femoris vein at the junction w ith the common femoral vein are clear in both legs. The visualized calf veins are patent bilaterally. Soft tissue edema is noted in both legs. IMPRESSION: There is no sonographic evidence of deep venous thrombosis identified in the right or lef t lower extremity. ACT 112: Negative or not required by law. Electronically signed by: Lalito Cisse M.D. 08/30/2023 4:18 PM
--- NOTE | 2023-08-30 19:24 | CT Scan Report ---
CT SCAN OF THE ABDOMEN AND PELVIS WITH IV CONTRAST CLINICAL HISTORY: Generalized abdominal pain. COMPARISON STUDY: Abdominal CT dated 02/28/2023. TECHNIQUE: Following the IV administration of 94 cc of Optiray 320, CT scan of the abdomen and pelvi s is performed from the lung bases to the proximal femora. Images are reviewed in the axial, sagittal , and coronal planes. IV contrast was administered without complication. A dose lowering technique wa s utilized adhering to the principles of ALARA. CT DOSE: 1221.19 mGy.cm FINDINGS: Lung bases: The heart is normal in size and without pericardial effusion. The lung bases are clear no ting mild bibasilar atelectasis. Liver: The contrast-enhanced liver is normal in size, contour, and attenuation. There is no intrahepa tic biliary ductal dilatation. The hepatic veins and portal veins are patent. Gallbladder: Surgically absent noting clips in the gallbladder fossa. Spleen: Normal in size and attenuation. Pancreas: Atrophic and grossly unremarkable. Adrenal glands: Unremarkable. Kidneys: The contrast enhanced kidneys are normal in size and without hydronephrosis. The kidneys enh ance symmetrically. A 16 mm cyst is seen on the left. Additional subcentimeter cortical hypodensities also likely represent cysts but are too small for definitive characterization. Abdominal vasculature: The abdominal aorta is normal in course and caliber noting moderate atheroscle rotic calcification. Bowel: There is mild colonic diverticulosis without CT evidence of acute diverticulitis. No bowel obs truction is seen. Enteric contrast reaches the distal small bowel. A small duodenal diverticulum is i ncidentally noted. The appendix is well-visualized and normal. Peritoneum: There is no intraperitoneal free air or abdominal ascites. There is a small fat-containin g umbilical hernia. Lymphadenopathy: None. Pelvic viscera: The bladder is decompressed and not well evaluated. There are calcified uterine fibro ids. No adnexal lesion is seen. Fat necrosis is again seen overlying the greater trochanter of the ri ght proximal femur. Skeletal structures: The skeletal structures are osteopenic. Mild degenerative change is noted throug hout the spine. There is degenerative sclerosis of the sacroiliac joints. No lytic or blastic lesions are seen. IMPRESSION: 1. No acute infectious or inflammatory findings are identified in the abdomen or pelvis. 2. Mild colonic diverticulosis without CT evidence of acute diverticulitis. 3. Additional findings as above. ACT 112: Negative or not required by law. Electronically signed by: Lalito Cisse M.D. 08/30/2023 7:22 PM
[2023-08-30] MEDS: POLYETHYLENE (MIRALAX) 17 GM PACK PO SCH (20:41)
[2023-08-30] MEDS: traMADol HCL 50 MG TABLET PO PRN (21:41)
--- NOTE | 2023-08-31 07:02 | Hospitalist Progress Note ---
"Date of Service August 31, 2023 Assessment & Plan (1) Acute hypokalemia: (2) Hypomagnesemia: (3) Diarrhea: (4) Intractable nausea and vomiting: (5) Diabetes mellitus type 2 in obese: (6) CAD (coronary artery disease): (7) Hypertension: (8) Severe protein-calorie malnutrition: (9) Anxiety: (10) Depression: (11) Tobacco abuse: (12) Knee pain: Plan Yolanda is a 62F w/ PMH of T2DM w/ neuropathy, HTN, CAD s/p CHANTAL to LAD, chronic constipation, tobacco use disorder, tremor, vertigo, dysphagia, depression w/ anxiety, psoriasis, and failure to thrive in adult a/w protein calorie malnutrition who presented to ED for chest discomfort and was found to have profound electrolyte abnormalities. Abdominal pain/ Reduced Appetite | +/- Gastroparesis in setting of T2DM Constipation - multiple recent admissions in setting of DM +/- gastroparesis - Hx of uncontrolled T2DM - Stool GI/PCR and CDiff negative - Advancing diet as tolerated - KUB- no obstruction, stool burden - CT abdomen: No acute infectious or inflammatory findings. Mild colonic diverticulosis - Miralax BID - Colace BID - Continue to monitor T2DM - uncontrolled - A1C: 12.0 - Lantus 15 units - NovoLog per ACHS - Pharmacy consulted Electrolyte Anomalies Hypokalemia - Resolved Hypomagnesemia - Hemodynamically stable - Past history of hypokalemia and hypomagnesemia, no outpatient supplementation - Electrolyte anomalies previously resulting in cardiac arrest/VTach/Torsades - Replaced as needed - Potassium 40 mEq daily - Mag 2 grams replaced today -BMP, Mg, Phosphorus AM Epigastric Pain - Hemoglobin chronically low, but stable - Hemoccult for all stools, negative - PPIs Knee pain - Likely osteoarthritis given chronicity - Knee XRay: soft tissue swelling with mild degenerative changes. - Continue voltaren PRN. - Tramadol prn Chest Discomfort | Atypical Chest Pain - resolved - CXR, Troponin, and EKG negative - Reproducible w/ sternal pressure, likely MSK in nature Chronic Conditions: - Anemia: Chronic, at baseline - Hypothyroidism: continue levothyroxine - HTN: continue home antihypertensives - CAD s/p CHANTAL to LAD: Aspirin & Ticagrelor held d/t reported melena, would resume if Hemoccult negative - HLD: continue statin - Tobacco use disorder: Ongoing, encouraged cessation, wheezing on exam, Albuterol PRN - Dysphagia: continue PPI - Depression w/ anxiety; continue Bupropion and Fluvoxamine Code: Full Diet: Diabetes DVT prophylaxis: Lovenox sq Dispo: PCU/Tele d/t severe electrolyte anomalies Admission and Anticipated Discharge Date Admission Date: August 26, 2023 Supervising Physician Co-Signing Physician Notes ATTESTATION I also saw the patient and confirmed real portions of the history and exam. I agree with the impression and plan in the resident documentation, and as summarized below. Feels more bloated than anything else. He really does not describe any pain. She cannot recall exactly, but it has probably been 5-7 days since her last bowel movement. EXAM 120/75, 70, 18, 36.6, 95% on room air Heart regular rate and rhythm Respirations nonlabored Abdomen soft, no masses appreciated. Positive bowel sounds. Abdomen soft and nontender. DATA Labs Hemoglobin 11 Sodium 139, potassium 3.9, BUN 7, creatinine 0.[address] of the abdomen pelvis completed 08/30/2023 shows no acute processes. IMPRESSION & PLAN Abdominal pain, Acute on chronic Epigastric pain, likely GERD, seems improved Generalized abdominal pain seems more like bloating, probably related to constipation Continue/increase bowel regimen Hypomagnesemia Replete and monitor Additional per resident documentation Subjective Patient refers nausea and lower abdominal pain. Sporadic nausea that is worse after meals, CT Abdomen with no acute findings. General aches had decreased in time. Denied any vomiting. Last BMs before admission Review of Systems Review of Systems: as pe HPI Physical Exam Constitutional: WD/WN, vitals as above ENMT: external ear and nose normal, oropharynx normal Respiratory: normal respiratory effort, lungs clear to auscultation Cardiovascular: RRR, no murmur, no edema Gastrointestinal (Abdomen): Inspection/Auscultation: normal bowel sounds; abdomen not distended Percussion/Palpation: + abdomen tender (Lower quadrant) and abdomen soft; no abdominal mass Results & Data Results & Data Vital Signs (Past 12 Hours) Vital Signs Temp Pulse Pulse Resp BP BP Pulse Ox 08/31/23 02:06 36.4 C L 82 16 119/76 92 08/30/23 22:55 36.6 C 73 18 121/77 95 08/30/23 22:00 64 08/30/23 19:16 36.6 C 75 18 143/83 H 96 O2 Del Method 08/31/23 02:06 Room Air 08/30/23 22:55 Room Air 08/30/23 22:00 08/30/23 19:16 Room Air Resident Activity Tracking Resident Involvement: Resident Care Provided Care Provided: Adult Hospital Medicine (6) CAD (coronary artery disease) Associated angina: unspecified whether angina present Coronary Disease- Associated Artery/Lesion type: [place] artery [place] vs. transplanted heart: [place] heart Qualified Code(s): I25.10 - Atherosclerotic heart disease of [place] coronary artery without angina pectoris"
[2023-08-31 07:09] LABS: Basophils # (auto) 0.03 K/uL (0.00-0.20); Basophils % (auto) 0.3 %; Eosinophils # (auto) 0.72 K/uL (0.00-0.50); Eosinophils % (auto) 7.8 %; Hematocrit (blood only) 33.8 % (37.0-47.0); Immature Granulocytes # (auto) 0.02 K/uL (0.01-0.20); Immature Granulocytes % (auto) 0.2 %; Lymphocytes # (auto) 2.13 K/uL (1.20-3.40); Lymphocytes % (auto) 23.2 %; Mean Corpuscular Hemoglobin 26.7 pg (25.0-34.0); Mean Corpuscular Hgb Conc 32.5 g/dL (32.0-36.0); Mean Platelet Volume 10.8 fL (9.4-12.4); Monocytes # (auto) 0.62 K/uL (0.11-0.59); Monocytes % (auto) 6.8 %; Neutrophils # (auto) 5.66 K/uL (1.40-6.50); Neutrophils % (auto) 61.7 %; Platelet Count 238 K/uL (130-400); RDW Coefficient of Variation 14.8 % (11.5-14.5); RDW Standard Deviation 44.3 fL (36.4-46.3); Red Blood Count 4.12 M/uL (4.20-5.40); White Blood Count 9.18 K/ul (4.8-10.8)
[2023-08-31] MEDS: PROCHLORPERAZINE 10 MG in SYRINGE 8 ML IV PRN (07:20)
[2023-08-31 07:29] LABS: BUN Creatinine Ratio 8.9 (10-20); Calcium 8.1 mg/dl (8.6-10.3); Creatinine Clr Calc Pharmacy 71.5 ml/min; Est GFR (African American) 92.3 ml/min; Est GFR (Non-African American) 79.7 ml/min; Magnesium 1.5 mg/dl (1.7-2.4); Potassium 3.9 mmol/L (3.5-5.1)
[2023-08-31] MEDS: MAGNESIUM SULFATE / D5W 1 GM/100 ML BAG IV SCH (10:03)
[2023-08-31] MEDS: DOCUSATE SODIUM 100 MG CAP PO ONE (11:23)
[2023-08-31] MEDS: PANTOprazole 40 MG TAB PO SCH (20:49)
[2023-08-31] MEDS: FAMOTIDINE 20 MG TAB PO SCH (20:50)
[2023-08-31] MEDS: DOCUSATE SODIUM 100 MG CAP PO SCH (20:50)
[2023-09-01 06:36] LABS: Basophils # (auto) 0.03 K/uL (0.00-0.20); Basophils % (auto) 0.4 %; Eosinophils # (auto) 0.81 K/uL (0.00-0.50); Hematocrit (blood only) 33.2 % (37.0-47.0); Hemoglobin 10.7 g/dl (12.0-16.0); Immature Granulocytes # (auto) 0.03 K/uL (0.01-0.20); Immature Granulocytes % (auto) 0.4 %; Lymphocytes # (auto) 2.28 K/uL (1.20-3.40); Mean Corpuscular Hgb Conc 32.2 g/dL (32.0-36.0); Mean Corpuscular Volume 83.6 fL (80.0-100.0); Mean Platelet Volume 10.8 fL (9.4-12.4); Monocytes # (auto) 0.61 K/uL (0.11-0.59); Monocytes % (auto) 7.5 %; Neutrophils # (auto) 4.37 K/uL (1.40-6.50); Neutrophils % (auto) 53.7 %; Platelet Count 226 K/uL (130-400); RDW Coefficient of Variation 15.1 % (11.5-14.5); RDW Standard Deviation 46.3 fL (36.4-46.3); Red Blood Count 3.97 M/uL (4.20-5.40); White Blood Count 8.13 K/ul (4.8-10.8)
--- NOTE | 2023-09-01 06:45 | Hospitalist Progress Note ---
"Date of Service September 01, 2023 Assessment & Plan (1) Acute hypokalemia: (2) Hypomagnesemia: (3) Diarrhea: (4) Intractable nausea and vomiting: (5) Diabetes mellitus type 2 in obese: (6) CAD (coronary artery disease): (7) Hypertension: (8) Severe protein-calorie malnutrition: (9) Anxiety: (10) Depression: (11) Tobacco abuse: (12) Knee pain: Plan Yolanda is a 62F w/ PMH of T2DM w/ neuropathy, HTN, CAD s/p CHANTAL to LAD, chronic constipation, tobacco use disorder, tremor, vertigo, dysphagia, depression w/ anxiety, psoriasis, and failure to thrive in adult a/w protein calorie malnutrition who presented to ED for chest discomfort and was found to have profound electrolyte abnormalities. Abdominal pain/ Reduced Appetite | +/- Gastroparesis in setting of T2DM Constipation - multiple recent admissions in setting of DM +/- gastroparesis - Hx of uncontrolled T2DM - Stool GI/PCR and CDiff negative - KUB: no obstruction, stool burden - CT abdomen: No acute infectious or inflammatory findings. Mild colonic diverticulosis - Miralax BID - Colace BID - Senna, enema given no BM in over 5 days - Continue to monitor T2DM - uncontrolled - A1C: 12.0 - Can trial metformin and sulfonylurea once GI symptoms resolve - Pharmacy consulted, continue insulin Electrolyte Anomalies Hypokalemia - Resolved Hypomagnesemia - Hemodynamically stable - Past history of hypokalemia and hypomagnesemia, no outpatient supplementation - Electrolyte anomalies previously resulting in cardiac arrest/VTach/Torsades - Replaced as needed - Potassium 40 mEq daily - Mag 2 grams replaced today -BMP, Mg, Phosphorus AM Epigastric Pain - Hemoglobin chronically low, but stable - Hemoccult for all stools, negative - PPIs Knee pain - Knee pain not responding to voltaren. Given nature of pain at thigh, knee, and anterior olson is more likely a S4 radiculopathy - Ordered MRI of lumbar spine Chest Discomfort | Atypical Chest Pain - resolved - CXR, Troponin, and EKG negative - Reproducible w/ sternal pressure, likely MSK in nature Chronic Conditions: - Anemia: Chronic, at baseline - Hypothyroidism: continue levothyroxine - HTN: continue home antihypertensives - CAD s/p CHANTAL to LAD: Aspirin & Ticagrelor held d/t reported melena, would resume if Hemoccult negative - HLD: continue statin - Tobacco use disorder: Ongoing, encouraged cessation, wheezing on exam, Albuterol PRN - Dysphagia: continue PPI - Depression w/ anxiety; continue Bupropion and Fluvoxamine Code: Full Diet: Diabetes DVT prophylaxis: Lovenox sq Dispo: PCU/Tele d/t severe electrolyte anomalies Admission and Anticipated Discharge Date Admission Date: August 26, 2023 Supervising Physician Co-Signing Physician Notes I personally examined the patient and verified all real points of history and exam, discussed case, and agree with decision making with Dr Clarke Wahl and Latoya Alvarez MS4 belly pain doesn't take anythign for bowels at home, 1 BM ~every 2 days or so Sugars run 2-300 in the morning, 3-4 100s for the rest of the day. Does not take as much insulin as prescribed. Does not know why she is not on other medications. Right leg paindown the side of her leg across her knee and then anterior/medial shinstarted about 2 weeks ago feels like a stabbing pain nothing really seems to modify it. Still lonely. Has not reached out to her neighbor yet. Abdominal painwhile she does not show fecal impaction or massive fecal load, she still has CT evidence of retained stool and history that fits most with chronic constipation/IBS and a degree of intermittent overflow diarrhea (most recently not)continue bowel regimen, continue to educate, encourage bowel regimen at home. Uncontrolled diabetesseems to be worried about low sugars. Educated extensively on the outcomes of uncontrolled hyperglycemia (high sugars clog arteries) and the fact that frequently whenever diabetics are under chronically bad control they will start to have hypoglycemic symptoms at hyperglycemic rangesand this does not make it safe, simply symptomatic. Discussed that this often normalizes with euglycemia reasonably quickly. Will give trial to oral regimen that she may be more likely to adhere to at home. Right leg painseems to fit with an L4 dermatomecould also be IT band and tibialis anterior painbut given that it seems to track L4MRI L-spine and then manage as appropriate. DVT prophylaxisLovenox Subjective Yolanda mentions lower abdominal pain this morning, feels crampy in nature. Cannot remember last bowel movement. Is urinating normally. No fever or chills. No vomiting. Her upper abdominal pain is still present. Also is experiencing right knee and leg pain, with pains shooting down her anterior leg. Review of Systems Review of Systems: see HPI Physical Exam Physical Exam: Constitutional: Well developed, well nourished Gen: No acute distress, alert, interactive HEENT: Supple, no thyromegaly, oropharynx normal Resp:Non-labored breathing, clear to auscultation bilaterally CV:Normal rate and rhythm, normal S1/S2, no M/R/G Abd: Soft, non-distended, tenderness to palpation throughout, worse in lower quadrants; normoactive bowels, no masses Extr: no LE edema, right lower extremity is scaly Skin: No rashes lesions or erythema Results & Data Results & Data Vital Signs (Past 12 Hours) Vital Signs Temp Pulse Pulse Resp BP Pulse Ox Pulse Ox 09/01/23 02:33 36.6 C 80 16 132/81 97 09/01/23 00:41 94 08/31/23 22:42 36.6 C 72 16 144/76 H 95 08/31/23 22:02 75 08/31/23 19:06 36.7 C 69 16 117/65 96 O2 Del Method O2 Del Method 09/01/23 02:33 Room Air 09/01/23 00:41 Room Air 08/31/23 22:42 Room Air 08/31/23 22:02 08/31/23 19:06 Room Air Resident Supervision Co-Signing Physician Notes I also saw the patient and confirmed real portions of the history and exam. I agree with the impression and plan in the student documentation, and as summarized below. S: Patient refers has still lower abdominal pain. Nausea remained about the same. No BMs since 5 days E: Lungs CTA, RRR, no murmurs, Abdomen soft and depressive, Bowel sound present, non tender Abdominal pain/ Constipation: Pain and nausea secondary to constipation which is related to her uncontrolled glucose and possible gastroparesis or slow emptiness of her bowel. Continue BMs regimen. Enema added DM2- Uncontrolled. Education done at bedside. Will do a trial of a oral regimen. Pharmacy following Right massimo pain/ Knee- MRI ordered for possible new onset radiculopathy (6) CAD (coronary artery disease) Associated angina: unspecified whether angina present Coronary Disease- Associated Artery/Lesion type: [place] artery [place] vs. transplanted heart: [place] heart Qualified Code(s): I25.10 - Atherosclerotic heart disease of [place] coronary artery without angina pectoris"
[2023-09-01 07:22] LABS: Calcium 8.4 mg/dl (8.6-10.3); Magnesium 1.6 mg/dl (1.7-2.4); Potassium 4.5 mmol/L (3.5-5.1)
[2023-09-01 07:28] LABS: BUN Creatinine Ratio 9.7 (10-20); Creatinine Clr Calc Pharmacy 55.1 ml/min; Est GFR (Non-African American) 57.8 ml/min; Phosphorus 4.1 mg/dl (2.5-4.9)
[2023-09-01 07:51] LABS: Thyroid Stimulating Hormone 1.34 uIu/ml (0.300-4.500)
[2023-09-01] MEDS: SENNA 8.6 MG TAB PO SCH (10:53)
--- NOTE | 2023-09-01 10:59 | Pharmacy Report ---
Pharmacy Glycemic Short Note 2 - Date of Service September 01, 2023 - Glycemic Short BSG Results (Last 24 hours): 08/31/23 08/31/23 08/31/23 11:13 16:01 20:20 Glucose POC Glucose 177 H 145 H 127 H 08/31/23 09/01/23 09/01/23 23:43 05:29 07:29 Glucose 159 H POC Glucose 177 H 190 H OUTPATIENT ANTIDIABETIC REGIMEN: * Humulin R (U-500) 35 units SC BID HbA1c: 12% (08/27/23) ASSESSMENT: 08/31 * Yolanda received 33 units of insulin yesterday (15 were basal) * Fasting BSG this AM acceptable but slightly elevated, previous days within goal range, consider adjustment tomorrow if still elevated. * Novolog parameters tightened yesterday, monitor for trends, no adjustment today 08/28 * LH is a 62 year old female who presented to ED on 08/26/23 with chest pain, found to have significant electrolyte abnormalities (namely hypokalemia/hypomagnesemia, 2.1 mmol/L and 1.1 mg/dL respectively). Of note, patient does have history of cardiac arrest/Vtach, and Torsades de pointes. Electrolytes now much improved. * Patient was managed with SC bolus insulin only since time of admission, pharmacy consulted for glycemic management on 08/29/23 * Patient known to pharmacy glycemic service due to multiple admissions/consults * Patient historically very fearful of hypoglycemia PLAN FOR INPATIENT GLYCEMIC CONTROL: * Hold outpatient U-500 insulin * Basal insulin * Lantus 15 units daily * Bolus insulin * NovoLog per scale ACHS or Q6hrs while NPO * Goal Range: Low 120 mg/dL - High 160 mg/dL * Correction Factor: 25 mg/dL/unit * Nutritional / Prandial insulin per carb ratio of 1 unit per 7 grams CHO consumed
--- NOTE | 2023-09-01 17:25 | Billing Data ---
Date of Service September 01, 2023 Coding Level of Care Code 44576 SUB INP/OBS CARE 3MIN
[2023-09-01] MEDS: LORazepam 0.5 MG TAB PO STA (17:26)
[2023-09-01] MEDS: bisacodyL 10 MG SUPP PR STA (18:31)
--- NOTE | 2023-09-01 19:09 | Magnetic Resonance Report ---
MRI OF THE LUMBAR SPINE WITHOUT IV CONTRAST CLINICAL HISTORY: Low back pain. Radiculopathy. COMPARISON STUDY: Lumbar spine radiographs dated 02/21/2016. Abdominal CT dated 08/30/2023. TECHNIQUE: MRI of the lumbar spine was performed utilizing various T1 and T2-weighted sequences in th e axial and sagittal planes. IV contrast was not administered for this examination. FINDINGS: Lumbar spine: Vertebral body height and alignment are maintained throughout the lumbar spine. Marrow signal intensity is slightly heterogeneous. Tiny anterior and lateral marginal osteophytes are seen t hroughout. The transverse and spinous processes appear intact. There is no evidence of spondylolysis. No destructive bony lesion is seen. Mild chronic degenerative endplate changes seen at several level s. There is no significant endplate edema. Intervertebral discs: Disc desiccation is seen throughout the lumbar spine. The disc spaces are maint ained. Spinal Cord: The visualized spinal cord is normal in morphology and signal intensity. The conus medul jodie terminates at the level of L1. The nerve roots of the cauda equina are normal in morphology. L1-L2: Unremarkable. L2-L3: Unremarkable. L3-L4: There is minimal posterior disc bulge. The central canal is clear. Mild facet arthropathy is o f no consequence. The neural foramina are patent. L4-L5: The central canal is clear. Mild facet arthropathy is of no consequence. The neural foramina a re patent. L5-S1: The central canal is clear. A right lateral disc bulge contributes to subarticular stenosis an d abuts the exiting right L5 nerve root. This is best seen on axial image #22. In conjunction with fa cet arthropathy, there is mild to moderate right neural foraminal stenosis. The left neural foramen i s patent. Sacrum: The visualized sacrum is normal in morphology and signal intensity. Soft tissues: There is fatty atrophy of the paraspinous musculature. The retroperitoneal structures a re grossly unremarkable but incompletely evaluated. Subcutaneous soft tissue edema is noted in the lo wer back. There is diverticulosis of the partially imaged sigmoid colon. IMPRESSION: 1. There is a right lateral disc bulge at L5-S1 which abuts the exiting right L5 nerve root. 2. Mild spondylotic change at additional levels as above with no significant central canal stenosis. See discussion for detailed level by level analysis. 3. No destructive bony process is seen. 4. Additional findings as above. Dictated: 09/01/2023 6:21 PM Transcribed: 09/01/2023 6:39 PM Tiffany [id number] [email or web address] [id number] Electronically signed by: Lalito Cisse M.D. 09/01/2023 7:08 PM
--- NOTE | 2023-09-02 07:31 | Hospitalist Progress Note ---
Date of Service September 02, 2023 Assessment & Plan (1) Acute hypokalemia: (2) Hypomagnesemia: (3) Diarrhea: (4) Intractable nausea and vomiting: (5) Diabetes mellitus type 2 in obese: (6) CAD (coronary artery disease): (7) Hypertension: (8) Severe protein-calorie malnutrition: (9) Anxiety: (10) Depression: (11) Tobacco abuse: (12) Knee pain: Plan Yolanda is a 62F w/ PMH of T2DM w/ neuropathy, HTN, CAD s/p CHANTAL to LAD, chronic constipation, tobacco use disorder, tremor, vertigo, dysphagia, depression w/ anxiety, psoriasis, and failure to thrive in adult a/w protein calorie malnutrition who presented to ED for chest discomfort and was found to have profound electrolyte abnormalities. Abdominal pain/ Reduced Appetite | +/- Gastroparesis in setting of T2DM Constipation/ Nausea - multiple recent admissions in setting of DM +/- gastroparesis - Hx of uncontrolled T2DM - KUB: no obstruction, stool burden - CT abdomen: No acute infectious or inflammatory findings. Mild colonic diverticulosis. - On Bowel Regimen: Miralax BID, Colace BID, Senna, Dulcolax enema ordered - Nausea: Compazine Q6 hrs - Continue to monitor T2DM - uncontrolled - A1C: 12.0 - Trial of Metformin and Amaryl - Pharmacy consulted - BSG SSI - Novolog Electrolyte Anomalies Hypokalemia - Resolved Hypomagnesemia - Past history of hypokalemia and hypomagnesemia, no outpatient supplementation - Electrolyte anomalies previously resulting in cardiac arrest/VTach/Torsades - Potassium 40 mEq daily - Mag 4 grams replaced today - Replaced as needed -BMP, Mg, Phosphorus AM Epigastric Pain - Hemoglobin chronically low, but stable - Hemoccult for all stools, negative - PPIs Right leg pain - pain at thigh and knee - MRI: right lateral disc bulge at L5-S1 which abuts the exiting right L5 nerve root. - Tramadol prn Chest Discomfort | Atypical Chest Pain - resolved - CXR, Troponin, and EKG negative - Reproducible w/ sternal pressure, likely MSK in nature Chronic Conditions: - Anemia: Chronic, at baseline - Hypothyroidism: continue levothyroxine - HTN: continue home antihypertensives - CAD s/p CHANTAL to LAD: Aspirin & Ticagrelor held d/t reported melena, would resume if Hemoccult negative - HLD: continue statin - Tobacco use disorder: Ongoing, encouraged cessation, wheezing on exam, Albuterol PRN - Dysphagia: continue PPI - Depression w/ anxiety; continue Bupropion and Fluvoxamine Code: Full Diet: Diabetes DVT prophylaxis: Lovenox sq Dispo: PCU/Tele d/t severe electrolyte anomalies Admission and Anticipated Discharge Date Admission Date: August 26, 2023 Supervising Physician Co-Signing Physician Notes I personally examined the patient and verified all real points of history and exam, discussed case, and agree with decision making with Dr Clarke Wahl and Latoya Alvarez MS4 Belly pain slightly better, still persists though. Did have a small bowel movement earlier, feels like she may be having another soon. Extensive discussion on sugars, medication management, high sugars causing often permanent and irreversible damage versus low sugars causing transient although troubling symptoms. Vitals noted, in general she is awake alert pleasantly anxious but no distress. HEENT normocephalic atraumatic mucous membranes moist. Breathing unlabored no accessory muscle use good effort. Skin without rashes pallor or icterus. Neuro without focal deficits. Abdominal painwhile she does not show fecal impaction or massive fecal load, she still has CT evidence of retained stool and history that fits most with chronic constipation/IBS and a degree of intermittent overflow diarrhea (most recently not) Belly pain is improved a little with bowel movements. Continue bowel regimen, continue to educate, continue to encourage bowel regimen at home. Uncontrolled diabetesseems to be worried about low sugars. Discussed with patient quite plainly that low sugars generally feel far worse, but high sugars are what caused irreversible damage. Extensive discussion twice during the same visit outlining medication management and what we are doing/how the medications workdirectly addressing her fears that metformin would cause her sugars to bottom out. Giving trial for a "harm reduction strategy" and that she is not really taking her insulin as prescribedadmits to taking at least 10 units less at each dose than what she is recommended, and is hard to tell how much less she is actually taking or how often she skips doses entirely. Was open and honest with the patient that we are trying to build a regimen that at least has her sugars better than she has been, in a way that might be easier for her to adhere to. Given her anxiety on things, we will likely need to follow her in the hospital on a regimen for at least a day or 2 before sending her home so that she does not stop the regimen out of fear of bottoming out. Lumbar radiculopathyno surgical indications at this time. Escalate gabapentin for better pain control. Outpatient decompression/traction, possibly outpatient steroid injection. DVT prophylaxisLovenox Subjective Yolanda was seen this morning. Still complained about belly pain and leg pain. Nausea resolving. No BMs since the admission (7 days now). Patient declining the enema yesterday. Review of Systems Review of Systems: as per HPI Physical Exam Constitutional: WD/WN, vitals as above ENMT: external ear and nose normal, oropharynx normal Respiratory: normal respiratory effort, lungs clear to auscultation Cardiovascular: RRR, no murmur, no edema Gastrointestinal (Abdomen): Inspection/Auscultation: normal bowel sounds; abdomen not distended Percussion/Palpation: abdomen soft; no abdominal mass Results & Data Results & Data Vital Signs (Past 12 Hours) Vital Signs Temp Pulse Resp BP BP Pulse Ox O2 Del Method 09/02/23 06:48 36.8 C 88 16 165/82 H 93 Room Air 09/02/23 02:15 36.6 C 70 18 144/75 H 97 Room Air 09/01/23 20:40 36.5 C 74 17 161/89 H 94 Room Air Resident Activity Tracking Resident Involvement: Resident Care Provided Care Provided: Adult Hospital Medicine (6) CAD (coronary artery disease) Associated angina: unspecified whether angina present Coronary Disease- Associated Artery/Lesion type: [place] artery [place] vs. transplanted heart: [place] heart Qualified Code(s): I25.10 - Atherosclerotic heart disease of [place] coronary artery without angina pectoris
[2023-09-02 07:56] LABS: Basophils # (auto) 0.04 K/uL (0.00-0.20); Basophils % (auto) 0.5 %; Eosinophils # (auto) 0.74 K/uL (0.00-0.50); Hematocrit (blood only) 33.9 % (37.0-47.0); Immature Granulocytes # (auto) 0.01 K/uL (0.01-0.20); Immature Granulocytes % (auto) 0.1 %; Lymphocytes # (auto) 1.97 K/uL (1.20-3.40); Mean Corpuscular Hemoglobin 26.9 pg (25.0-34.0); Mean Corpuscular Hgb Conc 32.4 g/dL (32.0-36.0); Mean Corpuscular Volume 82.9 fL (80.0-100.0); Mean Platelet Volume 10.5 fL (9.4-12.4); Monocytes # (auto) 0.62 K/uL (0.11-0.59); Monocytes % (auto) 7.5 %; Neutrophils # (auto) 4.84 K/uL (1.40-6.50); Neutrophils % (auto) 58.9 %; Platelet Count 219 K/uL (130-400); RDW Coefficient of Variation 14.6 % (11.5-14.5); RDW Standard Deviation 44.1 fL (36.4-46.3); Red Blood Count 4.09 M/uL (4.20-5.40); White Blood Count 8.22 K/ul (4.8-10.8)
[2023-09-02 08:10] LABS: BUN Creatinine Ratio 10.9 (10-20); Calcium 8.8 mg/dl (8.6-10.3); Creatinine Clr Calc Pharmacy 56.2 ml/min; Est GFR (African American) 68.6 ml/min; Est GFR (Non-African American) 59.2 ml/min; Magnesium 1.3 mg/dl (1.7-2.4)
[2023-09-02] MEDS ORDERED: LANTUS PER UNIT CHARGE SC SCH (09:00)
[2023-09-02] MEDS ORDERED: ESCITALOPRAM OXALATE 10 MG TAB PO SCH (09:00)
[2023-09-02] MEDS: MAGNESIUM SULFATE / D5W 1 GM/100 ML BAG IV SCH (10:04)
[2023-09-02] MEDS: metFORMIN HCL 500 MG TAB PO SCH ×2 (16:22→16:27)
[2023-09-02] MEDS: GLIMEPIRIDE 2 MG TAB PO SCH (16:27)
--- NOTE | 2023-09-02 17:12 | Billing Data ---
Date of Service September 02, 2023 Coding Level of Care Code 35401 SUB INP/OBS CARE MIN
[2023-09-02] MEDS: GABAPENTIN 300 MG CAP PO SCH (21:15)
--- NOTE | 2023-09-03 07:45 | Hospitalist Progress Note ---
"Date of Service September 03, 2023 Assessment & Plan (1) Acute hypokalemia: (2) Hypomagnesemia: (3) Diarrhea: (4) Intractable nausea and vomiting: (5) Diabetes mellitus type 2 in obese: (6) CAD (coronary artery disease): (7) Hypertension: (8) Severe protein-calorie malnutrition: (9) Anxiety: (10) Depression: (11) Tobacco abuse: (12) Knee pain: Plan Yolanda is a 62F w/ PMH of T2DM w/ neuropathy, HTN, CAD s/p CHANTAL to LAD, chronic constipation, tobacco use disorder, tremor, vertigo, dysphagia, depression w/ anxiety, psoriasis, and failure to thrive in adult a/w protein calorie malnutrition who presented to ED for chest discomfort and was found to have profound electrolyte abnormalities. Abdominal pain| +/- Gastroparesis in setting of T2DM Constipation/ Nausea - multiple recent admissions in setting of DM +/- gastroparesis - Hx of uncontrolled T2DM - KUB: no obstruction, stool burden - CT abdomen: No acute infectious or inflammatory findings. Mild colonic diverticulosis. Stool burden - On Bowel Regimen: Miralax BID, Colace BID, Senna, Dulcolax enema ordered - Nausea: Compazine Q6 hrs - Will do a trial of Golytely - Continue to monitor T2DM - uncontrolled - A1C: 12.0 - Trial of Metformin and Amaryl - Amaryl increased to 4 mg daily - Metformin 1,000 mg BID - BSG SSI - Novolog Electrolyte Anomalies Hypokalemia - Resolved Hypomagnesemia - resolved - Past history of hypokalemia and hypomagnesemia, no outpatient supplementation - Electrolyte anomalies previously resulting in cardiac arrest/VTach/Torsades - Potassium 40 mEq daily - Replaced as needed -BMP, Mg, Phosphorus AM Epigastric Pain - resolved - Hemoglobin chronically low, but stable - Hemoccult for all stools, negative - PPIs Right leg pain - pain at thigh and knee - MRI: right lateral disc bulge at L5-S1 which abuts the exiting right L5 nerve root. - Tramadol prn - Would benefit from outpatient follow up for steroids injection Chest Discomfort | Atypical Chest Pain - resolved - CXR, Troponin, and EKG negative - Reproducible w/ sternal pressure, likely MSK in nature Chronic Conditions: - Anemia: Chronic, at baseline - Hypothyroidism: continue levothyroxine - HTN: continue home antihypertensives - CAD s/p CHANTAL to LAD: Aspirin & Ticagrelor held d/t reported melena, would r esume if Hemoccult negative - HLD: continue statin - Tobacco use disorder: Ongoing, encouraged cessation, wheezing on exam, Albuterol PRN - Dysphagia: continue PPI - Depression w/ anxiety; continue Bupropion and Fluvoxamine Code: Full Diet: Diabetes DVT prophylaxis: Lovenox sq Dispo: MEd surge Admission and Anticipated Discharge Date Admission Date: August 26, 2023 Supervising Physician Co-Signing Physician Notes I personally examined the patient and verified all real points of history and exam, discussed case, and agree with decision making with Dr Clarke Wahl and Latoya Alvarez MS4 Feels about the same. Nauseated again last night. Ate well today. Only a small bowel movement. Extensive discussions again about diagnoses and plans. Vitals noted, in general she is awake alert pleasantly anxious but no distress. HEENT normocephalic atraumatic mucous membranes moist. Breathing unlabored no accessory muscle use good effort. Skin without rashes pallor or icterus. Neuro without focal deficits. Abdominal painwhile she does not show fecal impaction or massive fecal load, she still has CT evidence of retained stool and history that fits most with chronic constipation/IBS and a degree of intermittent overflow diarrhea (most recently not) Belly pain is improved a little with bowel movements. given slow progress in her general reticence to continue any type of a truly aggressive bowel regimen at homeGoLytely bowel prep today with the hopes that if we are able to clear her bowels it may be easier for her to maintain lower doses of a bowel regimen to prevent constipation once she is home Uncontrolled diabetesseems to be worried about low sugars. ongoing patient education. Sugar control is obviously suboptimal, but given that she is on far less insulin (and does not really take her insulin remotely as prescribed at home) and is on a regimen of oral medicines that she hopefully would be more able to follow through with at homethe fact that her glycemic control is more or less the same as it was at home but with the building of a regimen she may be more apt to follow through with his probably circuitous progress. Obviously glycemic control is still far from goaldouble glimepiride to 4 mg daily, add Januvia. Ongoing education Lumbar radiculopathyno surgical indications at this time. Escalated gabapentin for better pain controlno appearance of sedation today. Outpatient decompression/traction, possibly outpatient steroid injection. anxiety/depression - seems to be the main driving factor getting in the way of her being able to take care of herself, whether it relates to her bowels, her diabetes, etc. Adjust medications. Continue to encourage social interaction, as it seems a lot of this is driven by loneliness DVT prophylaxisLovenox Subjective Yolanda was seen this morning found awake and alert. Had a vomit last night. Good appetite during the day. Still complained about belly pain and leg pain. Nausea resolving. No BMs since the admission (8 days now). Patient declining the enema yesterday. Currently on Miralax, Senna and Colace. Review of Systems Review of Systems: as per HPI Physical Exam Constitutional: WD/WN, vitals as above ENMT: external ear and nose normal, oropharynx normal Respiratory: normal respiratory effort, lungs clear to auscultation Cardiovascular: RRR, no murmur, no edema Gastrointestinal (Abdomen): Inspection/Auscultation: normal bowel sounds; abdomen not distended Percussion/Palpation: abdomen soft; abdomen nontender and no abdominal mass Results & Data Results & Data Vital Signs (Past 12 Hours) Vital Signs Temp Pulse Pulse Resp BP Pulse Ox O2 Del Method 09/03/23 07:43 36.6 C 86 15 130/90 94 Room Air 09/02/23 21:15 Room Air 09/02/23 20:40 36.6 C 80 18 157/91 H 96 Room Air Resident Activity Tracking Resident Involvement: Resident Care Provided Care Provided: Adult Hospital Medicine (6) CAD (coronary artery disease) Associated angina: unspecified whether angina present Coronary Disease- Associated Artery/Lesion type: [place] artery [place] vs. transplanted heart: [place] heart Qualified Code(s): I25.10 - Atherosclerotic heart disease of [place] coronary artery without angina pectoris"
[2023-09-03 08:09] LABS: Basophils # (auto) 0.04 K/uL (0.00-0.20); Basophils % (auto) 0.4 %; Eosinophils # (auto) 0.76 K/uL (0.00-0.50); Eosinophils % (auto) 7.2 %; Hematocrit (blood only) 36.3 % (37.0-47.0); Hemoglobin 11.5 g/dl (12.0-16.0); Immature Granulocytes # (auto) 0.04 K/uL (0.01-0.20); Immature Granulocytes % (auto) 0.4 %; Lymphocytes # (auto) 2.32 K/uL (1.20-3.40); Lymphocytes % (auto) 21.9 %; Mean Corpuscular Hemoglobin 26.6 pg (25.0-34.0); Mean Corpuscular Hgb Conc 31.7 g/dL (32.0-36.0); Mean Corpuscular Volume 83.8 fL (80.0-100.0); Mean Platelet Volume 10.8 fL (9.4-12.4); Monocytes # (auto) 0.67 K/uL (0.11-0.59); Monocytes % (auto) 6.3 %; Neutrophils # (auto) 6.75 K/uL (1.40-6.50); Neutrophils % (auto) 63.8 %; Platelet Count 256 K/uL (130-400); RDW Coefficient of Variation 14.9 % (11.5-14.5); RDW Standard Deviation 45.2 fL (36.4-46.3); Red Blood Count 4.33 M/uL (4.20-5.40); White Blood Count 10.58 K/ul (4.8-10.8)
[2023-09-03] MEDS: POLYETHYLENE (MIRALAX) 17 GM PACK PO SCH (08:31)
[2023-09-03 08:45] LABS: Calcium 8.9 mg/dl (8.6-10.3); Creatinine Clr Calc Pharmacy 48.5 ml/min; Est GFR (African American) 57.4 ml/min; Est GFR (Non-African American) 49.6 ml/min; Magnesium 1.9 mg/dl (1.7-2.4); Potassium 4.9 mmol/L (3.5-5.1)
[2023-09-03] MEDS: LAVAGE SOLUTION 4000ML PO SCH (15:57)
--- NOTE | 2023-09-03 16:35 | Billing Data ---
Date of Service September 03, 2023 Coding Level of Care Code 48330 SUB INP/OBS CARE MIN
--- NOTE | 2023-09-03 16:35 | Billing Data ---
Date of Service September 03, 2023 Coding Level of Care Code 60724 SUB INP/OBS CARE MIN
[2023-09-03] MEDS: SITagliptin PHOSPHATE 100 MG TAB PO SCH (16:52)
[2023-09-03] MEDS ORDERED: EMPAGLIFLOZIN 10 MG TAB PO SCH (17:00)
[2023-09-03] MEDS ORDERED: fluvoxaMINE MALEATE 50 MG TAB PO SCH (21:00)
[2023-09-04 08:12] LABS: BUN Creatinine Ratio 11.7 (10-20); Calcium 9.4 mg/dl (8.6-10.3); Creatinine Clr Calc Pharmacy 51.1 ml/min; Est GFR (African American) 61.2 ml/min; Est GFR (Non-African American) 52.8 ml/min; Magnesium 1.5 mg/dl (1.7-2.4); Potassium 4.7 mmol/L (3.5-5.1)
[2023-09-04] MEDS: DICLOFENAC SOD 1% GEL 100 GM TUBE EXT SCH (08:16)
[2023-09-04] MEDS: GLIMEPIRIDE 2 MG TAB PO SCH (08:17)
[2023-09-04] MEDS: ESCITALOPRAM OXALATE 20 MG TAB PO SCH (08:17)
[2023-09-04 08:19] LABS: Troponin I High Sensitivity 4.9 pg/ml (0-14)
--- NOTE | 2023-09-04 09:36 | Electrocardiogram Report ---
Test Reason : Blood Pressure : / mmHG Vent. Rate : 090 BPM Atrial Rate : 090 BPM P-R Int : 150 ms QRS Dur : 072 ms QT Int : 374 ms P-R-T Axes : 045 044 045 degrees QTc Int : 457 ms Normal sinus rhythm Low voltage QRS Nonspecific ST abnormality Abnormal ECG When compared with ECG of 27-AUG-2023 00:31, T wave inversion no longer evident in Inferior leads T wave inversion no longer evident in Lateral leads Confirmed by King Paul ([id number] on 09/04/2023 9:35:51 AM Referred By: REFERRED SELF Confirmed By:King Paul
--- NOTE | 2023-09-04 09:59 | Hospitalist Progress Note ---
"Date of Service September 04, 2023 Assessment & Plan (1) Acute hypokalemia: (2) Hypomagnesemia: (3) Diarrhea: (4) Intractable nausea and vomiting: (5) Diabetes mellitus type 2 in obese: (6) CAD (coronary artery disease): (7) Hypertension: (8) Severe protein-calorie malnutrition: (9) Anxiety: (10) Depression: (11) Tobacco abuse: (12) Knee pain: Plan Yolanda is a 62F w/ PMH of T2DM w/ neuropathy, HTN, CAD s/p CHANTAL to LAD, chronic constipation, tobacco use disorder, tremor, vertigo, dysphagia, depression w/ anxiety, psoriasis, and failure to thrive in adult a/w protein calorie malnutrition who presented to ED for chest discomfort and was found to have profound electrolyte abnormalities. Abdominal pain| +/- Gastroparesis in setting of T2DM Constipation/ Nausea - multiple recent admissions in setting of DM +/- gastroparesis - Hx of uncontrolled T2DM - KUB: no obstruction, stool burden - CT abdomen: No acute infectious or inflammatory findings. Mild colonic diverticulosis. Stool burden - On Bowel Regimen: Miralax BID, Colace BID, Senna, Dulcolax enema ordered - Nausea: Compazine Q6 hrs - Continue to monitor T2DM - uncontrolled - A1C: 12.0 - Patient not adherant to home insulin. Currently trying to build a good regimen at home - Amaryl increased to 4 mg daily - Metformin 1,000 mg BID - Ongoing education - BSG SSI - Novolog Electrolyte Anomalies Hypokalemia - Resolved Hypomagnesemia - resolved - Past history of hypokalemia and hypomagnesemia, no outpatient supplementation - Electrolyte anomalies previously resulting in cardiac arrest/VTach/Torsades - Continue Potassium 40 mEq daily - Replaced as needed -BMP, Mg, Phosphorus AM Epigastric Pain - resolved - Hemoglobin chronically low, but stable - Hemoccult for all stools, negative - PPIs Right leg pain - pain at thigh and knee - MRI: right lateral disc bulge at L5-S1 which abuts the exiting right L5 nerve root. - Tramadol prn - Would benefit from outpatient follow up for steroids injection Chest Discomfort | Atypical Chest Pain - resolved - CXR, Troponin, and EKG negative - Reproducible w/ sternal pressure, likely MSK in nature - New pain today, reproducible, negative troponin and EKG Chronic Conditions: - Anemia: Chronic, at baseline - Hypothyroidism: continue levothyroxine - HTN: continue home antihypertensives - CAD s/p CHANTAL to LAD: Aspirin & Ticagrelor held d/t reported melena, would resume if Hemoccult negative - HLD: continue statin - Tobacco use disorder: Ongoing, encouraged cessation, wheezing on exam, Albuterol PRN - Dysphagia: continue PPI - Depression w/ anxiety; continue Bupropion and Fluvoxamine Code: Full Diet: Diabetes DVT prophylaxis: Lovenox sq Dispo: Med surge Admission and Anticipated Discharge Date Admission Date: August 26, 2023 Supervising Physician Co-Signing Physician Notes I personally examined the patient and verified all real points of history and exam, discussed case, and agree with decision making with Dr Clarke Wahl had a lot of bowel movements. Still having some diarrhea. Anxious about going home because of having diarrhea, seems amenable to the idea of going home tomorrow. Vitals noted, in general she is awake alert pleasantly anxious but no distress. HEENT normocephalic atraumatic mucous membranes moist. Breathing unlabored no accessory muscle use good effort. Skin without rashes pallor or icterus. Neuro without focal deficits. Abdominal pain has appeared to be constipation/IBS related with intermittent overflow diarrheashe is now status post bowel prep. Maintenance regimen with MiraLAX and hopefully be easier for her to maintain. Discussed this again. Uncontrolled diabetes Poor home control due to concern about low sugars. ongoing patient education. Sugar control is obviously suboptimal, but given that she is on far less insulin (and does not really take her insulin remotely as prescribed at home) and is on a regimen of oral medicines that she hopefully would be more able to follow through with at home will anticipate home on an oral regimen and ongoing education and follow-up Lumbar radiculopathyno surgical indications at this time. Escalated gabapentin for better pain controlno appearance of sedation today. Outpatient decompression/traction, possibly outpatient steroid injection. anxiety/depression - seems to be the main driving factor getting in the way of her being able to take care of herself, whether it relates to her bowels, her diabetes, etc. Adjust medications. Continue to encourage social interaction, as it seems a lot of this is driven by loneliness DVT prophylaxisLovenox hopefully home tomorrow Subjective Yolanda was seen this morning found awake and alert. Golytely was given yesterday. Had couple of BMs yesterday and overnight. Feels about the same. Chest pain this morning that is reproducible. Review of Systems Review of Systems: as per HPI Physical Exam Constitutional: WD/WN, vitals as above ENMT: external ear and nose normal, oropharynx normal Respiratory: normal respiratory effort, lungs clear to auscultation Cardiovascular: RRR, no murmur, no edema Gastrointestinal (Abdomen): Inspection/Auscultation: normal bowel sounds; abdomen not distended Percussion/Palpation: abdomen soft; abdomen nontender and no abdominal mass Results & Data Results & Data Vital Signs (Past 12 Hours) Vital Signs Temp Pulse Resp BP Pulse Ox O2 Del Method 09/04/23 07:15 Room Air 09/04/23 06:59 36.5 C 98 H 18 139/71 93 Room Air Resident Activity Tracking Resident Involvement: Resident Care Provided Care Provided: Adult Hospital Medicine (6) CAD (coronary artery disease) Associated angina: unspecified whether angina present Coronary Disease- Associated Artery/Lesion type: [place] artery [place] vs. transplanted heart: [place] heart Qualified Code(s): I25.10 - Atherosclerotic heart disease of [place] coronary artery without angina pectoris"
[2023-09-04] MEDS: MAGNESIUM SULFATE / D5W 1 GM/100 ML BAG IV SCH (10:19)
[2023-09-04] MEDS ORDERED: POLYETHYLENE (MIRALAX) 17 GM PACK PO PRN (18:51)
--- NOTE | 2023-09-04 18:57 | Billing Data ---
Date of Service September 04, 2023 Coding Level of Care Code 67944 SUB INP/OBS CARE
--- NOTE | 2023-09-05 18:47 | Billing Data ---
Date of Service September 05, 2023 Coding Level of Care Code 39998 IN/OBS DISCH 30 MIN/LESS
--- NOTE | 2023-09-06 08:01 | Hospitalist Progress Note ---
"Date of Service September 06, 2023 Assessment & Plan (1) Acute hypokalemia: (2) Hypomagnesemia: (3) Diarrhea: (4) Intractable nausea and vomiting: (5) Diabetes mellitus type 2 in obese: (6) CAD (coronary artery disease): (7) Hypertension: (8) Severe protein-calorie malnutrition: (9) Anxiety: (10) Depression: (11) Tobacco abuse: (12) Knee pain: Plan Yolanda is a 62F w/ PMH of T2DM w/ neuropathy, HTN, CAD s/p CHANTAL to LAD, chronic constipation, tobacco use disorder, tremor, vertigo, dysphagia, depression w/ anxiety, psoriasis, and failure to thrive in adult a/w protein calorie malnutrition who presented to ED for chest discomfort and was found to have profound electrolyte abnormalities. Abdominal pain| +/- Gastroparesis in setting of T2DM Constipation/ Nausea - multiple recent admissions in setting of DM +/- gastroparesis - Hx of uncontrolled T2DM - KUB: no obstruction, stool burden - CT abdomen: No acute infectious or inflammatory findings. Mild colonic diverticulosis. Stool burden - On Bowel Regimen: Miralax BID, Colace BID, Senna, Dulcolax enema ordered - Nausea: Compazine Q6 hrs - Continue to monitor T2DM - uncontrolled - A1C: 12.0 - Patient not adherant to home insulin. Currently trying to build a good regimen at home - Amaryl increased to 4 mg daily - Metformin 1,000 mg BID - Ongoing education - BSG SSI - Novolog Electrolyte Anomalies Hypokalemia - Resolved Hypomagnesemia - resolved - Past history of hypokalemia and hypomagnesemia, no outpatient supplementation - Electrolyte anomalies previously resulting in cardiac arrest/VTach/Torsades - Continue Potassium 40 mEq daily - Replaced as needed -BMP, Mg, Phosphorus AM Epigastric Pain - resolved - Hemoglobin chronically low, but stable - Hemoccult for all stools, negative - PPIs Right leg pain - pain at thigh and knee - MRI: right lateral disc bulge at L5-S1 which abuts the exiting right L5 nerve root. - Tramadol prn - Would benefit from outpatient follow up for steroids injection Chest Discomfort | Atypical Chest Pain - resolved - CXR, Troponin, and EKG negative - Reproducible w/ sternal pressure, likely MSK in nature - New pain today, reproducible, negative troponin and EKG Chronic Conditions: - Anemia: Chronic, at baseline - Hypothyroidism: continue levothyroxine - HTN: continue home antihypertensives - CAD s/p CHANTAL to LAD: Aspirin & Ticagrelor held d/t reported melena, would resume if Hemoccult negative - HLD: continue statin - Tobacco use disorder: Ongoing, encouraged cessation, wheezing on exam, Albuterol PRN - Dysphagia: continue PPI - Depression w/ anxiety; continue Bupropion and Fluvoxamine Code: Full Diet: Diabetes DVT prophylaxis: Lovenox sq Dispo: Med surge Admission and Anticipated Discharge Date Admission Date: August 26, 2023 Review of Systems Review of Systems: as per HPI Results & Data Results & Data Vital Signs (Past 12 Hours) Vital Signs Temp Pulse Resp BP BP Pulse Ox O2 Del Method 09/06/23 07:03 36.7 C 89 16 127/81 94 Room Air 09/05/23 20:47 36.5 C 88 20 143/80 H 95 Room Air (6) CAD (coronary artery disease) Coronary Disease-Associated Artery/Lesion type: [place] artery [place] vs. transplanted heart: [place] heart Associated angina: unspecified whether angina present Qualified Code(s): I25.10 - Atherosclerotic heart disease of [place] coronary artery without angina pectoris"
--- NOTE | 2023-09-06 11:07 | Discharge Summary ---
Date of Service September 06, 2023 Admission HPI Per Admitting Provider Yolanda is a 62F w/ PMH of T2DM w/ neuropathy, HTN, CAD s/p CHANTAL to LAD, chronic constipation, tobacco use disorder, tremor, vertigo, dysphagia, depression w/ anxiety, psoriasis, and failure to thrive in adult a/w protein calorie malnutrition who presented to ED for chest discomfort and was found to have profound electrolyte abnormalities. ED: K Esa x 2, Mg x 1 g HPI: Chest discomfort and nausea for the last 3 days, has been having difficulty eating, no emesis. Has had diarrhea the last two days, has been moving bowels 5 times per day, notes her stools are dark but not black, denies BRBPM. Is having epigastric pain, was told in the past she had gastroparesis, but most recent GI visits have said this is not gastroparesis. Endorses occasional heartburn. No URI sx. Did start having difficulty breathing over the last 2-3 days, has felt like she was more tight/wheezy than usual. No hx of asthma or COPD, still smoking 5+ cigarettes in a day. Does endorses dizziness over the last 2-3 days, feels like when she gets up to walk she is unstable/unbalanced. Feels like her legs have been giving out on her. Has had hypokalemia in the past which required defibrillation. Had been on potassium and magnesium supplements but they were discontinued outpatient. Admission Exam Per Admitting Provider Gen: NAD, alert, interactive HEENT: Supple, no LAD, no thyromegaly, no JVD Resp:Non-labored, bilateral expiratory wheezing, otherwise CTAB CV:RRR, normal S1/S2, no M/R/G, sternal TTP Abd: Soft, non-distended, epigastric TTP, normoactive bowels, no masses Extr: 2+ dp bilaterally, 1+ LE edema Skin: No rashes lesions or erythema Principal Diagnosis Constipation Discharge Exam General: Alert and oriented, no acute distress, HEENT: Normocephalic, moist oral mucosa, Cardio: Regular rate and rhythm, Resp: Lungs clear to auscultation b/l, no wheezes or rhonchi, GI: Soft, nondistended, bowel sounds active, Skin: Warm, pink, dry, Discharge Data Allergies Allergy/AdvReac Type Severity Reaction Status Date / Time dulaglutide [From Trulicity] AdvReac Intermediate stomach Verified 05/09/23 13:03 pain albiglutide [From Tanzeum] AdvReac Unknown CAN'T Verified 05/09/23 13:03 REMEMBER Ordered Studies 08/30/23 12:18 CT Abd and Pelvis [CT abd pelvis oral and IV con] Routine 08/30/23 13:55 US venous doppler LE BI Routine 09/01/23 16:34 MRI Spine [MR lumbar spine wo con] Routine Hospital Course (1) Acute hypokalemia: (2) Hypomagnesemia: (3) Diarrhea: (4) Intractable nausea and vomiting: (5) Diabetes mellitus type 2 in obese: (6) CAD (coronary artery disease): (7) Hypertension: (8) Severe protein-calorie malnutrition: (9) Anxiety: (10) Depression: (11) Tobacco abuse: (12) Knee pain: Johanna Guerrero is a 62F w/ PMH of T2DM w/ neuropathy, HTN, CAD s/p CHANTAL to LAD, chronic constipation, tobacco use disorder, tremor, vertigo, dysphagia, depression w/ anxiety, psoriasis, and failure to thrive in adult a/w protein calorie malnutrition who presented to ED for chest discomfort and was found to have profound electrolyte abnormalities. Abdominal pain in the setting of constipation +/- gastroparesis - multiple recent admissions in setting of DM +/- gastroparesis, with hx of uncontrolled T2DM - KUB: no obstruction, stool burden noted, CT abdomen: No acute infectious or inflammatory findings. Mild colonic diverticulosis. Stool burden noted - pt given a bowel regime of Miralax BID, Colace BID, Senna, Dulcolax enema, then golytely - pt was able to have many bowel movements throughout yesterday and notes improvement in her pain, so most likely she was very constipated +/- gastroparesis as cause of her acute abdominal pain and pt should continue miralax with daily dosing based on previous days bowel movements to prevent fu rther recurrence of constipation DMT2, uncontrolled - Last HA1c; 12.0 on 08/26 - Patient not adherent to home insulin. Currently trying to build a good regimen at home - plan to D/C on glimepiride and metformin for initial sugar control Right leg pain - pain from back goes down R thigh to stop just above R knee - MRI: right lateral disc bulge at L5-S1 which abuts the exiting right L5 nerve root - Would benefit from outpatient follow up for steroids injection - will increase gabapentin from 200 mg BID dosing to 600 mg BID to continue higher dosing on discharge Total Time Total Time Spent Total Time Spent (In Minutes): >30. Discharge Plan Discharge Items Patient Disposition: Home - Self-Care Reason For Visit: HYPOKALEMIA,HYPOMAGNESEMIA Discharge Diagnosis: constipation Activity: Resume your previous activity Non-emergency contact: Primary Care Provider Call non-emergency contact if: you have any medication questions and your symptoms worsen Follow-up/Referrals: Jc Zaman, [Primary Care Provider] - Diet: Carb Consistent or DM2 Addtl Attending Provider Instructions: abdominal pain/nausea/diarrhea -as has been the case for the last several months, the most likely culprit for all these symptoms is chronic constipation (you could also have some degree of your intestines not working right from such high sugars, but if that's going on at all, fortunately in your case if this is part of your belly symptoms, testing would suggest it's not at all likely to be permanent, and would likely improve with even somewhat decent sugar control over time) ---but - the main thing that we've seen that appears to be causing your GI symptoms is the chronic constipation ---->since we did the bowel prep, you're now going to be "cleaned out" at this point - so instead of having to get all the stool out, it should be easier to just not get constipated again ---->remember that for most people constipation is a sign that their intestines move slowly all the time - so getting cleaned out here DOES NOT mean that the constipation is forever fixed-- if you don't stay on top of it (see below) things will probably get right back to being pretty constipated over a few weeks -the easiest way to keep from getting backed up again will be to take miralax (polyethylene glycol) on a regular basis. i'd have you start with 2 capfuls (34 grams) once a day - but then take each day's dose based on your bowel movement the day before (so that would mean taking 2 doses a day, and then if you didn't have a bowel movement yesterday, you'd take 3-4 doses (51-68 grams) today. figure a safe range to "dial up or down" would be anywhere between 0 doses (if you had a lot of diarrhea the day before) and 5 doses (if you've not had a bowel movement for 2+ days). if you aren't having a bowel movement with 5 doses, that would be worth a call to the office - not that it would really mean that you're in trouble, but it would definitely be a time to seek more professional guidance) diabetes -your diabetes right now is under terrible control, and the worst control you've had in several years - i hate to be so blunt about it, but because you fear having a low sugar so much, i have to remind you that high sugars clogging arteries, leading to future heart attacks/strokes/kidney disease/blindness/nerve damage is a FAR BIGGER threat to your life than low sugars (which generally do feel terrible when they happen but almost never lead to serious consequences themselves (unless it's something like the low sugar leading to feeling "out of it" and the "feeling out of it" leads to a fall)) -remember that a truly normal sugar is about 70-100 fasting, and by about 2 hours after eating would be about 70-120. a reasonable rule for "high sugars clog arteries" is that any time your sugar is above about 150-160 you're doing some degree of permanent damage (obviously higher is worse) -also remember that you've had lots of normal/close to normal sugar readings over the last few days, and you only felt shaky AFTER you saw what the sugar was (showing you that feeling shaky these times was not from the sugar causing it, but from you getting nervous AFTER you saw what the sugar was) -because being anxious about even normal sugars is leading you to take too little insulin, which then makes you run "artery clogging" high, we've tried to make your regimen more simple with just a few pills. they're working surprisingly better than i would have expected (probably because of being on a lower carbohydrate diet than you are at home in addition to the medications) -for now we're sending you home on: metformin 1000mg twice a day - as we've discussed several times, metformin has really good statistics on helping diabetics do better overall - and how it works is "making your muscles less addicted to insulin" so they can process the insulin/carbs you eat more quickly and effectively. it also does slow down how your liver makes sugar/dumps sugar into your bloodsteam some - but it does not cause low sugars glimeperide 4mg once a day - again as we've discussed several times - this medicine "squeezes insulin out of your pancreas" and makes it make more insulin to get the carbohydrates of of your bloodstream and into your muscles. because it lasts for about 12-14 hours after you take, it, if you take it in the morning it will really only be effective during the time of day you're awake/eating meal s/etc and is pretty unlikely to cause a low sugar, but it can. with where your sugars have been right now, that's really unlikely (you can make a safe guess that even if it's working better than i would hope, at most it's going to lower your sugar about 100 points below what you'd be running if you didn't take it - and honestly it's probably more going to lower things less that that) - but what that would mean is that if you start taking care of yourself better (eating less carbs and exercising daily) it could then become a problem if your sugars are getting close to perfect (where i see meds like this cause people to have low sugars is more once their A1c readings are in the 7-8 range or lower - yours is 12) - but if you start taking care of yourself better, it would be the first medicine to go! eating/exercise -for most people, type 2 diabetes is about 80% caused by their eating and exercise habits. ---->if you look at your sugars after you eat something, you'll see that different foods cause different spikes in your glucose. foods that are higher in simple carbs (breads, pastas, potatoes, rice, sugary foods, sugary drinks) will cause a much faster and much higher spike than foods that don't have simple carbs. when your sugar spikes high, your pancreas has to make more insulin to get that food out of your blood stream. this spike in insulin lets your muscles become more "addicted to insulin" and makes you "a worse diabetic". --->what's beautiful about that is that if you get rid of simple carbs, you can actually go a long way to "fixing" your diabetes (or at least putting it into remission) - so really try hard to get rid of simple carbs in your diet (and an easy way to do that is to see what foods really spike your sugar and then stop eating them) -20-30 minutes of light cardiovascular exercise (nothing crazier than taking a walk) can also make your muscles "less addicted" to insulin over the long haul. it's not just that exercise fink more sugar when you're exercising (it does) but that regular exercise fundamentally changes your metabolism in a way that makes you "less diabetic" - so in a perfect world you'd take at least a half hour walk every day. this can be absolutely game-changing when it comes to diabetes (and actually regular exercise can also be game changing when it comes to anxiety) pinched nerve -the pain in your leg is because of a pinched nerve in your back caused by a bulging disc -the first thing to remember is that something like 80% of people will be able to heal these things themselves over time....it's just that "time" is usually a year or two (remember i told you about my 's disc bulge in her neck that not only got better as far as the neck and arm pain, but for unrelated reasons a few years later she needed another MRI of her neck and the disc itself looked totally normal again) -- so because of this the goal is to help you feel OK and give this time, so that hopefully we never need you to even meet a spine surgeon -we've got you on gabapentin 600mg twice a day (a "low-medium dose" - it's a medicine that can go as high as 1000mg three times a day if we need to go that big over time) to help quiet the pain - it never makes pain a "zero" it just takes the edge off it -we'll want you to get set up for a specific kind of traction called decompression therapy - traction/decompression stretches your spine out and buys the nerve more breathing room, and sometimes helps pull the disc back in place. i couldn't find anyone closer to you that definitely does decompression, so i would recommend Dr Barnes of [facility], or Dr Anthony of [facility] - they're both in [place] -we'll get a referral underway for [facility] to see you to talk about nerve injections that can also help. my hope will actually be that time, gabapentin, and decompression have helped enough that by the time you have a pain management appointment you don't actually need them anymore; but since it takes time to get in with them we'll get things "set in motion" so that if/when you do actually need them there's not a long delay anxiety -this is by far your biggest problem, and what really leads to you not taking care of yourself -medicines don't help a ton - maybe 20% at best - but we did adjust your medicines to try to help how we can (stopped the fluvoxamine and started lexapro; and sometimes the gabapentin can help take the edge off anxiety too) -i'd really recommend some kind of counselling -i'd 100% recommend knocking on Shirely's door or going to the senior center, or doing something to not be alone - God builds this to be a "team sport" so when people are isolated usually they don't do well at all -exercise can help a good deal with anxiety - which is double the reason to take a walk every day (anxiety and diabetes) -try really hard to let your brain slow down. even when you can't stop the anxious thinking, also try to think about things slowly and logically too - you'll often find that when you're thinking about things anxiously, the anxious thinking is not only not logical - it's often totally off base/not at all in touch with reality! follow up with Dr Zaman next week, and have him check follow up labwork at that appointment take care of yourself!!! Pending Studies at Discharge: No Stand-Alone Forms: My [employer], Smoking Cessation Medications and DC Order Prescriptions: New metformin 500 mg Tablet 1,000 mg PO BIDM Qty: 60 0RF glimepiride 2 mg Tablet 4 mg PO QAM Qty: 30 0RF gabapentin 300 mg Capsule 600 mg PO BID Qty: 60 0RF escitalopram oxalate 20 mg Tablet 20 mg PO QAM Qty: 30 0RF Continued folic acid 1 mg tablet 1 mg PO QAM Qty: 90 3RF bupropion HCl 150 mg tablet extended release 24 hr 150 mg PO QAM 90 Days Qty: 90 3RF Brilinta 90 mg tablet 90 mg PO BID Qty: 60 3RF (DME) pen needle, diabetic [BD Ultra-Fine Cary Pen Needle] 32 gauge x 5/32" needle See Dose Instructions .ROUTE .MEDSUPPLY Qty: 200 11RF Dose Instruction: As directed Rx Instructions: use 2 times daily or as directed by physician to monitor blood sugar (DME) blood-glucose meter [Prodigy Autocode Meter] Kit See Rx Instructions .Route Rx Instructions: As directed aspirin 81 mg Tablet,Delayed Release (Dr/Ec) 81 mg PO QAM Qty: 30 0RF Rx Instructions: Over the counter pantoprazole 40 mg tablet,delayed release (DR/EC) 40 mg PO QAM Rx Instructions: TAKE ONE TABLET BY MOUTH ONCE DAILY acetaminophen [Pharbetol] 500 mg Tablet 1,000 mg PO Q8H PRN (Reason: Pain) atorvastatin 80 mg tablet 80 mg PO HS spironolactone 25 mg tablet 12.5 mg PO QAM diclofenac sodium [Voltaren Arthritis Pain] 1 % gel 2 g EXT QID PRN (Reason: Pain) levothyroxine 88 mcg tablet 88 mcg PO DAILYBB Changed polyethylene glycol 3350 [Miralax] 17 gram powder in packet 34 g PO DAILY Qty: 0 0RF Discontinued gabapentin 100 mg capsule 200 mg PO BID 30 Days Qty: 120 3RF fluvoxamine 50 mg tablet 50 mg PO HS Humulin R U-500 (Conc) Kwikpen 500 unit/mL (3 mL) insulin pen 10 - 20 unit SUBCUT BID Rx Instructions: ORDERED 35U BID BUT PT SAYS SHE DOESNT NEED THAT MUCH Discharge Orders: Discharge Order (Routine); Ordered 09/06/23 Ordered By: Anabel Shah Admission Data Admit Date/Time: 08/26/23 23:30 Attending Provider: Harry Hinojosa Admit Provider: Shakira Stoner Primary Care Provider: Jc Zaman Other Interventions: Discharge Summary Assessment (RN) Last Done: 09/06/23 12:44 Supervising Physician Co-Signing Physician Notes I personally examined the patient and verified all real points of history and exam, discussed case, and agree with decision making with Dr Shah feels ok stomach a little upset. extensive discussion with patient about diagnoses and treatment. Also personally prepared discharge instructions taking probably 30-40 minutes to ensure detailed instructions for each of her problems. Vitals noted, in general she is awake alert pleasantly anxious but no distress. HEENT normocephalic atraumatic mucous membranes moist. Breathing unlabored no accessory muscle use good effort. Skin without rashes pallor or icterus. Neuro without focal deficits. Abdominal pain has appeared to be constipation/IBS related with intermittent overflow diarrheashe is now status post bowel prep. Maintenance regimen with MiraLAX and hopefully be easier for her to maintain. Discussed this again. Uncontrolled diabetes Poor home control due to concern about low sugars. ongoing patient education. Sugar control is not yet perfect but surprisingly better than expected, home on oral regimen, close glucose monitoring (requested that she ask her PCP about possibly getting a continuous glucose monitor) Lumbar radiculopathyno surgical indications at this time. Escalated gabapentin for better pain controlno appearance of sedation since. Outpatient decompression/traction, possibly outpatient steroid injection. anxiety/depression - seems to be the main driving factor getting in the way of her being able to take care of herself, whether it relates to her bowels, her diabetes, etc. Adjusted medications (lexapro instead of fluvoxamine). Continue to encourage social interaction, as it seems a lot of this is driven by loneliness DVT prophylaxisLovenox home today Resident Activity Tracking Resident Involvement: Resident Care Provided Care Provided: Adult Hospital Medicine
--- NOTE | 2023-09-06 18:49 | Billing Data ---
Date of Service September 06, 2023 Coding Level of Care Code 13764 INP/OBS DISCH >30 MIN
--- NOTE | 2023-09-06 18:49 | Billing Data ---
Date of Service September 06, 2023 Coding Level of Care Code 41589 INP/OBS DISCH >30 MIN
== END 2023-09-06 15:10 | disposition home or self-care (01) | DRG 73 ==
LOC: ED 19:24 → 2S 23:30 → SUATTDRO 23:30 → 2S 23:54 → 3W 09-01 20:30

== ENCOUNTER 2023-09-06 19:48 | Inpatient (IN) ==
--- NOTE | 2023-09-06 20:23 | Emergency Department Note ---
Impression & Plan Hyponatremia, Fall, Weakness, Leukocytosis, Hyperkalemia ED Provider Note NAME: ELIAN SORENSEN AGE: 62 SEX: F : 1960 ARRIVES VIA: Ambulance INFORMANT: Patient ED PROVIDER(S): Harry Baltazar DO CHIEF COMPLAINT: Fall HPI: Patient is a 62-year-old female with a past medical history of prolonged QT, hypomanic, CAD, hypertension, hyperglycemia who presents to the ER following being discharged home today. Since being home she has fallen twice. She did not hit her head. She has fallen onto her both knees. She denies any headache or change in vision. No chest pain or shortness of breath. No nausea, vomiting, or diarrhea. No dysuria, urgency, or frequency. ADDITIONAL HISTORY OBTAINED: Per HPI Chronic Medical/Social Conditions Affecting Care: Per HPI PAST MEDICAL HISTORY:See Below PAST SURGICAL HISTORY:See Below FAMILY HISTORY:See Below SOCIAL HISTORY:See Below HOME MEDICATIONS:See Below ALLERGIES:See Below VITALS:See Below PHYSICAL EXAMINATION: GENERAL: alert, well appearing, well nourished, no distress, non-toxic HEAD: normal cephalic, atraumatic EYE EXAM: normal conjunctiva, PERRL and EOM's grossly intact OROPHARYNX: no exudate, no erythema, lips, buccal mucosa, and tongue normal and mucous membranes are moist NECK: supple, no nuchal rigidity, no adenopathy, non-tender CHEST: stable to compression anteriorly and posteriorly LUNGS: clear to auscultation. Normal chest wall mechanics HEART: no murmurs, S1 normal and S2 normal ABDOMEN: abdomen soft, non-tender, normo-active bowel sounds, no masses, no rebound or guarding. PELVIS: stable to compression anteriorly and posteriorly BACK: Back is symmetrical on inspection and there is no deformity, no midline tenderness, no CVA tenderness. UPPER EXTREMITIES: full active and passive range of motion of all joints without tenderness to palpation with exception of bilateral knees with bruising over the right knee. Right knee with bruising over the medial patella. Skins intact. LOWER EXTREMITIES: full active and passive range of motion of all joints without tenderness to palpation NEURO EXAM: Normal sensorium, cranial nerves II-XII grossly intact, normal speech, no gross weakness of arms, no gross weakness of legs. GCS: 15. MEDICAL DECISION MAKING: Patient is a 62-year-old female who presents ER for above-stated complaint. IV was established blood work was obtained. Labs show mild leukocytosis of 20,000. No significant anemia. BMP with hyponatremia 127 and a slight hyperkalemia at 5.8. Mag was mildly low at 1.2. UA was ordered but pending upon admission. Chest x-ray was unremarkable. Patient has no other complaints at this time. X- rays of the knees were negative. Patient was discussed with the hospitalist admitted for further workup. She was just discharged from earlier today. External records were reviewed from last admission including discharge which showed a sodium of 135. Patient was updated bedside discussed with hospitalist for further evaluation management treatment. Consults/Care Managements Discussions: Per [facility] Triage Nursing notes reviewed. Limited review of prior medical records performed Vital Signs: reviewed and remarkable for tachy Differential diagnosis: Differential diagnoses include major intracranial, cervical, spinal, thoracic, abdominal, pelvic and neurologic injury. Fracture, contusion, sprain, strain, laceration, abrasions included as well. ER treatment provided: See below Diagnostics interpreted by me include EKG and cardiac monitoring as listed below: -Cardiac Monitoring: An order was placed for continuous cardiac monitoring. The monitor shows a rate of 90 with sinus rhythm. -ECG: none -Laboratory studies:Interpreted by me as stated above in MDM and shown below. Imaging studies: Xrays: As interpreted by me: Portable AP upright 1 view of the chest shows no focal infiltrate X-ray shows no acute fracture or dislocation X-ray of the left knee shows no acute fracture or dislocation CTs show: none Procedures:none Critical Care: None Past Med/Surg History Problem List (Updated 09/06/23 @ 23:56 by Harry Baltazar DO) Hyperkalemia (Acute) Leukocytosis (Acute) Weakness (Acute) Fall (Acute) Hyponatremia (Acute) Tobacco use Hyperkalemia Falls Knee pain (Acute) Diarrhea (Acute) Prolonged QT interval (Acute) Acute hypokalemia (Acute) Hypomagnesemia (Acute) Chest pain (Acute) Intractable nausea and vomiting (Acute) Hyperglycemia due to type 2 diabetes mellitus (Acute) Hypomagnesemia (Acute) Respiratory syncytial virus infection (Acute) Hypertension CAD (coronary artery disease) No remaining occlusive disease after 2 LAD drug eluting stents 10/22/20. Follows with Dr. Harris RSV (respiratory syncytial virus infection) SAMRA (acute kidney injury) Constipation Acute dehydration (Acute) Nausea & vomiting (Acute) Acute hypokalemia (Acute) Hyperglycemia (Acute) Hypomagnesemia (Acute) Chest pain (Acute) Chronic constipation Nausea (Acute) Abdominal pain, epigastric (Acute) Vitamin D deficiency Diabetes mellitus type 2 in obese Elevated creatine kinase Fall Elevated troponin Shock Fall (Acute) Hypocalcemia (Acute) Ventricular tachycardia (Acute) Respiratory arrest before cardiac arrest (Acute) Hypokalemia (Acute) Hypomagnesemia (Acute) Acute non-ST elevation myocardial infarction (NSTEMI) (Acute) Cigarette smoker Hyperglycemia due to type 2 diabetes mellitus UTI (urinary tract infection) (Acute) Tremor (Chronic) Hypomagnesemia (Acute) Hypokalemia (Acute) Dyspnea (Acute) Noncompliance (Chronic) Non compliance with medical treatment (Chronic) Delusional disorder Diarrhea (Chronic) Severe protein-calorie malnutrition Vertigo Hypomagnesemia Hypokalemia Dysphagia Early satiety Depression Anxiety (Chronic) Vitamin B12 deficiency Serum gamma globulin increased Psoriasis Obesity Low back pain Drug-induced tremor Arthralgia of multiple sites Tobacco abuse (Chronic) Diabetes type 2, uncontrolled IDDM Postmenopausal bleeding Thickened endometrium Mass of soft tissue Cervical mass Acute non-ST elevation myocardial infarction (NSTEMI) (Acute) Status post insertion of drug-eluting stent into left anterior descending (LAD) artery Chronic vulvitis S/P coronary artery stent placement (Chronic) 2 CHANTAL to LAD 10/22/2020 Thoracic spine pain Right upper quadrant abdominal pain (Acute) Diabetic nephropathy associated with type 2 diabetes mellitus Albuminuria Acute hyperglycemia (Acute) Fatigue Back pain Failure to thrive in adult Left upper quadrant pain Medical History CAD (coronary artery disease) Hypertension Hypothyroidism Chronic constipation Diabetes mellitus GERD (gastroesophageal reflux disease) Hyponatremia Vitamin D deficiency Diabetes mellitus type 2 in obese Acute on chronic combined systolic and diastolic CHF (congestive heart failure) Bradycardia with 41-50 beats per minute Hypokalemia Hypomagnesemia Accelerated hypertension Albuminuria Diabetic nephropathy associated with type 2 diabetes mellitus Depression Osteoarthritis Chronic headaches NSTEMI (non-ST elevated myocardial infarction) Vulvitis Dyslipidemia Tobacco abuse Obesity Anxiety Surgical History History of cardiac catheterization S/P coronary artery stent placement History of cholecystectomy History of dental surgery History of tonsillectomy Family History Unknown Diabetes Thyroid disorder Father Diabetes Other No family history of adverse response to anesthesia Denies family history of Ovarian cancer Prostate cancer Breast cancer Colorectal cancer Uterine cancer Social History (Updated 05/09/23 @ 13:14 by Holly Coleman LPN) Smoking Status: Current every day smoker Tobacco Type: Cigarettes packs per day: 0.5; Cigarettes Per Day: 5/ day; Second Hand Exposure: No; Do You Dip or Chew Tobacco: No; Hx Alcohol Use: No Hx Substance Use: No Preferred Language: Wolof Communication Ability: Effective Visual Impairment: No Limitations Delinquency Prevention Officer Required: No Beliefs That Will Affect Care: None marital status: Single Current Living Situation: Alone Current Living Situation Comment: lives in trailer current occupational status: disabled How many Children do You have: 0 Feels Safe at Home: Yes Safety Concerns Comment: Gets nervous sometimes because she lives alone, gets shaky from anxiety Diet: regular caffeine: Yes Dental Care, Regularly: No Physical Activity Frequency: Does not Exercise Seatbelt Use: always Sunscreen Use: No Assistive Devices: Walker Allergies Allergies Allergy/AdvReac Type Severity Reaction Status Date / Time dulaglutide [From Trulicity] AdvReac Intermediate stomach Verified 09/06/23 20:51 pain albiglutide [From Tanzeum] AdvReac Unknown CAN'T Verified 09/06/23 20:51 REMEMBER Home Meds Home Medications Medication Instructions Recorded Confirmed blood-glucose meter ([employer] 10/15/21 08/26/23 Autocode Meter kit) pantoprazole 40 mg tablet,delayed 40 mg PO QAM 12/19/22 09/06/23 release acetaminophen 500 mg tablet 1,000 mg PO Q8H PRN Pain 01/23/23 09/06/23 (Pharbetol) atorvastatin 80 mg tablet 80 mg PO HS 01/23/23 09/06/23 spironolactone 25 mg tablet 12.5 mg PO QAM 01/23/23 09/06/23 diclofenac sodium 1 % topical gel 2 g EXT QID PRN Pain 02/28/23 09/06/23 (Voltaren Arthritis Pain) levothyroxine 88 mcg tablet 88 mcg PO DAILYBB 02/28/23 09/06/23 Previous Rx's Medication Instructions Recorded aspirin 81 mg tablet,delayed 81 mg PO QAM #30 tabs 10/29/22 release folic acid 1 mg tablet 1 mg PO QAM #90 tabs 04/07/23 bupropion HCl 150 mg 24 hr tablet, 150 mg PO QAM 90 days #90 tabs 05/05/23 extended release ticagrelor 90 mg tablet (Brilinta) 90 mg PO BID #60 tabs 08/11/23 pen needle, diabetic 32 gauge x #200 ea 08/22/23" (BD Ultra-Fine Cary Pen Needle) escitalopram oxalate 20 mg tablet 20 mg PO QAM #30 tabs 09/06/23 gabapentin 300 mg capsule 600 mg (2 x 300 mg) PO BID #60 caps 09/06/23 glimepiride 2 mg tablet 4 mg (2 x 2 mg) PO QAM #30 tabs 09/06/23 metformin 500 mg tablet 1,000 mg (2 x 500 mg) PO BIDM #60 09/06/23 tabs polyethylene glycol 3350 17 gram 34 g PO DAILY Constipation #0 ea 09/06/23 oral powder packet (Miralax) Results & Data (ED) Vital Signs Vital Signs - 24 hr 09/06/23 19:52 09/06/23 20:21 09/06/23 20:21 Temperature 36.8 C Temperature Source Oral Pulse Rate 112 H Pulse Rate [Apical] 105 H Pulse Rhythm Regular Pulse Rhythm [Apical] Regular Pulse Strength Normal Pulse Strength [Apical] Normal Respiratory Rate 19 19 Respiratory Effort / Characteristics Non-Labored Spontaneous Non-Labored Spontaneous Respiratory Depth Normal Normal Respiratory Pattern Regular Regular Blood Pressure 134/80 Blood Pressure [Left Arm] 134/90 Blood Pressure Mean 98 Blood Pressure Mean [Left Arm] 104 Pulse Oximetry 98 95 92 Oxygen Delivery Method Room Air Room Air Room Air Sepsis Recent Fever Within 48 Hours No Sepsis New/Unexplained Change in Mental Status N/A Sepsis Action Taken by Nursing No Action Required 09/06/23 20:44 09/06/23 21:58 Temperature Temperature Source Pulse Rate 107 H Pulse Rate [Apical] 89 Pulse Rhythm Pulse Rhythm [Apical] Pulse Strength Pulse Strength [Apical] Respiratory Rate 17 Respiratory Effort / Characteristics Non-Labored Spontaneous Respiratory Depth Normal Respiratory Pattern Blood Pressure Blood Pressure [Left Arm] 130/55 L Blood Pressure Mean Blood Pressure Mean [Left Arm] 80 Pulse Oximetry 94 Oxygen Delivery Method Room Air Sepsis Recent Fever Within 48 Hours Sepsis New/Unexplained Change in Mental Status Sepsis Action Taken by Nursing Laboratory Data 09/06/23 20:15 09/06/23 20:15 Lab Results 09/06/23 Range/Units 20:15 WBC 20.12 H (4.8-10.8) K/ul RBC 4.60 (4.20-5.40) M/uL Hgb 12.5 (12.0-16.0) g/dl Hct 38.1 (37.0-47.0) % MCV 82.8 (80.0-100.0) fL MCH 27.2 (25.0-34.0) pg MCHC 32.8 (32.0-36.0) g/dL RDW Std Deviation 44.0 (36.4-46.3) fL RDW Coeff of Umair 14.8 H (11.5-14.5) % Plt Count 309 (130-400) K/uL MPV 11.0 (9.4-12.4) fL Immature Gran % (Auto) 0.5 % Neut % (Auto) 84.0 % Lymph % (Auto) 7.7 % Lane % (Auto) 6.1 % Eos % (Auto) 1.5 % Baso % (Auto) 0.2 % Neut # (Auto) 16.89 H (1.40-6.50) K/uL Lymph # (Auto) 1.54 (1.20-3.40) K/uL Lane # (Auto) 1.23 H (0.11-0.59) K/uL Eos # (Auto) 0.30 (0.00-0.50) K/uL Baso # (Auto) 0.05 (0.00-0.20) K/uL Immature Gran # (Auto) 0.11 (0.01-0.20) K/uL Sodium 127 L (136-145) mmol/L Potassium 5.8 H (3.5-5.1) mmol/L Chloride 95 L (98-107) mmol/L Carbon Dioxide 21 (21-32) mmol/L Anion Gap 11 (3-11) BUN 15 (6-23) mg/dl Creatinine 1.37 H (0.6-1.2) mg/dl Est Cr Clr Drug Dosing 41.7 ml/min Est GFR ( Amer) 47.5 ml/min Est GFR (Non-Af Amer) 40.9 ml/min BUN/Creatinine Ratio 10.9 (10-20) Glucose 222 H (70-99(Fasting)) mg/dl Osmolality 279 L (280-300) mOsm/kg Calcium 9.8 (8.6-10.3) mg/dl Magnesium 1.2 L (1.7-2.4) mg/dl Total Bilirubin 0.5 (0.2-1.0) mg/dl AST 15 (13-39) U/L ALT 14 (7-52) U/L Alkaline Phosphatase 117 H (34-104) U/L Total Protein 7.3 (6.0-8.3) gm/dl Albumin 3.9 (3.4-5.0) gm/dl Globulin 3.4 (2.5-4.0) gm/dl Albumin/Globulin Ratio 1.1 (0.9-2) Administered Medications Sodium Chloride (Nss) 500 mls @ 80 mls/hr IV .[id number] [facility] Stop: 09/07/23 04:59 Last Admin: 09/06/23 22:55 Dose: 80 mls/hr Documented By: TITO Magnesium Sulfate/Dextrose (Magnesium Sulfate / D5w) 1 gm in 100 mls @ 50 mls/hr IV Q2H [facility] Stop: 09/07/23 04:44 Last Admin: 09/06/23 22:51 Dose: 50 mls/hr Documented By: TITO Discontinued Medications Lactated Ringer's (Lr) 1,000 mls @ 80 mls/hr IV .[id number] [facility] Stop: 09/07/23 10:44 Last Admin: 09/06/23 22:49 Dose: Not Given Documented By: TITO Discharge Plan Visit Data Chief Complaint: Fall Stated Complaint: FALL FROM STANDING ON TO KNEES/PAIN SWELLING ED Provider: Harry Baltazar Discharge Problem: Hyponatremia, Fall, Weakness, Leukocytosis, Hyperkalemia Discharge Instructions Interventions: ED Discharge Assessment Last Done: 09/06/23 23:13 Discharge Problem: Fall Qualifiers: Encounter type: initial encounter Qualified Code(s): W19.XXXA - Unspecified fall, initial encounter Leukocytosis Qualifiers: Leukocytosis type: unspecified Qualified Code(s): D72.829 - Elevated white blood cell count, unspecified
[2023-09-06 20:33] LABS: Basophils # (auto) 0.05 K/uL (0.00-0.20); Basophils % (auto) 0.2 %; Eosinophils % (auto) 1.5 %; Hematocrit (blood only) 38.1 % (37.0-47.0); Hemoglobin 12.5 g/dl (12.0-16.0); Immature Granulocytes # (auto) 0.11 K/uL (0.01-0.20); Immature Granulocytes % (auto) 0.5 %; Lymphocytes # (auto) 1.54 K/uL (1.20-3.40); Lymphocytes % (auto) 7.7 %; Mean Corpuscular Hemoglobin 27.2 pg (25.0-34.0); Mean Corpuscular Hgb Conc 32.8 g/dL (32.0-36.0); Mean Corpuscular Volume 82.8 fL (80.0-100.0); Monocytes # (auto) 1.23 K/uL (0.11-0.59); Monocytes % (auto) 6.1 %; Neutrophils # (auto) 16.89 K/uL (1.40-6.50); Platelet Count 309 K/uL (130-400); RDW Coefficient of Variation 14.8 % (11.5-14.5); White Blood Count 20.12 K/ul (4.8-10.8)
[2023-09-06 20:48] LABS: Albumin Globulin Ratio 1.1 (0.9-2); Albumin Level 3.9 gm/dl (3.4-5.0); BUN Creatinine Ratio 10.9 (10-20); Bilirubin,Total 0.5 mg/dl (0.2-1.0); Calcium 9.8 mg/dl (8.6-10.3); Creatinine Clr Calc Pharmacy 41.7 ml/min; Est GFR (African American) 47.5 ml/min; Est GFR (Non-African American) 40.9 ml/min; Globulin 3.4 gm/dl (2.5-4.0); Potassium 5.8 mmol/L (3.5-5.1); Total Protein 7.3 gm/dl (6.0-8.3)
--- NOTE | 2023-09-06 21:24 | History & Physical Report ---
Date of Service September 06, 2023 Assessment & Plan (1) Falls: Plan: Falls x 2 after hospital discharge on 09/05 Patient lives with a walker at baseline Patient reports that her legs gave out on both occasions; no head strike; no LOC Right/left knee x-rays ordered, pending Fall precautions PT/OT evaluations appreciated A.m. CBC, BMP, mag (2) SAMRA (acute kidney injury): Plan: Mild; BUN 15, creatinine 1.37 (baseline 1.11), EGFR 40.9 Avoid nephrotoxic agents for possible Unclear if secondary to dehydration or medications Gentle IVF resuscitation with NSS at 80mL/hr x 500mL, and recheck a.m. BMP (3) Hyperglycemia due to type 2 diabetes mellitus: Plan: Last A1c at 12.0% on 08/27/2023 Glucose 222 on admission Hold metformin, glimepiride SSI; with target BSG range 110-140mg/dL, CF 50, carb ratio 15 T2DM diet BSG ACHS Adjust regimen as needed (4) Leukocytosis: Plan: Leukocytosis at 20 on arrival with a neutrophilic predominance; afebrile Unclear source Clinically, patient denies infectious symptoms; increased fatigue and weakness, and only new symptom is a dry cough that patient reports started yesterday on 09/04 Suspect viral URI at this time CXR ordered, pending Biofire ordered, pending Urinalysis ordered, pending Procalcitonin ordered, pending (5) Hyperkalemia: Plan: K 5.8 on arrival; no prior history of hyperkalemia Repeat BMP ordered for overnight Signed out, with plan to give calcium gluconate, D5, and insulin if K >6.0 Trend BMPs (6) Tobacco use: Plan: Current everyday tobacco cigarette smoker Continue to encourage cessation (7) Hyponatremia: Plan: Na 127 on arrival Urine Osm, Urine Na, Serum Osm ordered, pending IVF (as above) (8) Hypomagnesemia: Plan: Magnesium 1.2 on arrival Magnesium sulfate 1 g IV x 3 Hold Protonix Recheck a.m. mag (9) CAD (coronary artery disease): Plan: S/p CHANTAL Continue aspirin and Brilinta Plan Disposition: Admit to [facility] telemetry Full code T2DM diet VTE PPx: Heparin 5000u SQ q12h History of Present Illness Chief Complaint: Fall x 2 Primary Care Provider: Jc Zaman DO Yolanda is a 62-year-old female with PMH of T2DM, CAD s/p CHANTAL, NSTEMI, tobacco use , vertigo, depression, anxiety, psoriasis, and FTT. She presented on 09/05 after falling twice at home. Patient was just discharged from [facility] this morning. Upon discharge, she went to the [employer] store with her brother, and reports that she fell out of the parking lot when she was trying to get back into her brother's car. She then fell again at home while trying to stand up from the couch. Both times, the patient reports that her legs gave out on her. She denies head strike, LOC, or fainting. She ambulates with a walker at baseline. She also notes that she has been dizzy/lightheaded on her feet recently and has been feeling off balance. Patient reports that she has been having pain in her right leg since the fall specifically her right knee and a dorsal aspect of her right foot, but notes that it was swollen prior to the fall. She endorses generalized pain in her legs bilaterally, which she describes to constant pain; 10/10 at worst. She did not take any pain medicine prior to coming to the hospital. The only medication she took outside of the hospital was metformin; she reports that she took all other medications prior to leaving hospital. Patient is mildly tachycardic around 107 bpm at time of admission; vitals otherwise stable. ED course: ROS: Patient endorses fatigue, feeling off balance, dizziness, lightheadedness, nausea, dry cough (new, started yesterday), and lower extremity pain/weakness bilaterally. Patient denies fever, chills, sweating, headache, changes in vision, chest pain, pleuritic CP, SOB, hemoptysis, abdominal pain, vomiting, changes in urinary or bowel habits, burning with urination, dysuria, blood in urine or stool. Please see Dr. Gaytan's attestation for any changes to treatment plan. Allergies Allergy/AdvReac Type Severity Reaction Status Date / Time dulaglutide [From Trulicity] AdvReac Intermediate stomach Verified 09/06/23 20:51 pain albiglutide [From Tanzeum] AdvReac Unknown CAN'T Verified 09/06/23 20:51 REMEMBER Home Medications Medication Instructions Recorded Confirmed Type blood-glucose meter (Prodigy 10/15/21 08/26/23 History Autocode Meter kit) aspirin 81 mg tablet,delayed 81 mg PO QAM #30 tabs 10/29/22 09/06/23 Rx release pantoprazole 40 mg tablet,delayed 40 mg PO QAM 12/19/22 09/06/23 History release acetaminophen 500 mg tablet 1,000 mg PO Q8H PRN Pain 01/23/23 09/06/23 History (Pharbetol) atorvastatin 80 mg tablet 80 mg PO HS 01/23/23 09/06/23 History spironolactone 25 mg tablet 12.5 mg PO QAM 01/23/23 09/06/23 History diclofenac sodium 1 % topical gel 2 g EXT QID PRN Pain 02/28/23 09/06/23 History (Voltaren Arthritis Pain) levothyroxine 88 mcg tablet 88 mcg PO DAILYBB 02/28/23 09/06/23 History folic acid 1 mg tablet 1 mg PO QAM #90 tabs 04/07/23 09/06/23 Rx bupropion HCl 150 mg 24 hr tablet, 150 mg PO QAM 90 days #90 tabs 05/05/23 09/06/23 Rx extended release ticagrelor 90 mg tablet (Brilinta) 90 mg PO BID #60 tabs 08/11/23 09/06/23 Rx pen needle, diabetic 32 gauge x #200 ea 08/22/23 08/26/23 Rx 5/32" (BD Ultra-Fine [place] Pen Needle) escitalopram oxalate 20 mg tablet 20 mg PO QAM #30 tabs 09/06/23 09/06/23 Rx gabapentin 300 mg capsule 600 mg (2 x 300 mg) PO BID #60 caps 09/06/23 09/06/23 Rx glimepiride 2 mg tablet 4 mg (2 x 2 mg) PO QAM #30 tabs 09/06/23 09/06/23 Rx metformin 500 mg tablet 1,000 mg (2 x 500 mg) PO BIDM #60 09/06/23 09/06/23 Rx tabs polyethylene glycol 3350 17 gram 34 g PO DAILY Constipation #0 ea 09/06/23 09/06/23 Rx oral powder packet (Miralax) Past Med/Surg History Problem List (Updated 09/06/23 @ 23:56 by Harry Baltazar, DO) Hyperkalemia (Acute) Leukocytosis (Acute) Weakness (Acute) Fall (Acute) Hyponatremia (Acute) Tobacco use Hyperkalemia Falls Knee pain (Acute) Diarrhea (Acute) Prolonged QT interval (Acute) Acute hypokalemia (Acute) Hypomagnesemia (Acute) Chest pain (Acute) Intractable nausea and vomiting (Acute) Hyperglycemia due to type 2 diabetes mellitus (Acute) Hypomagnesemia (Acute) Respiratory syncytial virus infection (Acute) Hypertension CAD (coronary artery disease) No remaining occlusive disease after 2 LAD drug eluting stents 10/22/20. Follows with Dr. Harris RSV (respiratory syncytial virus infection) SAMRA (acute kidney injury) Constipation Acute dehydration (Acute) Nausea & vomiting (Acute) Acute hypokalemia (Acute) Hyperglycemia (Acute) Hypomagnesemia (Acute) Chest pain (Acute) Chronic constipation Nausea (Acute) Abdominal pain, epigastric (Acute) Vitamin D deficiency Diabetes mellitus type 2 in obese Elevated creatine kinase Fall Elevated troponin Shock Fall (Acute) Hypocalcemia (Acute) Ventricular tachycardia (Acute) Respiratory arrest before cardiac arrest (Acute) Hypokalemia (Acute) Hypomagnesemia (Acute) Acute non-ST elevation myocardial infarction (NSTEMI) (Acute) Cigarette smoker Hyperglycemia due to type 2 diabetes mellitus UTI (urinary tract infection) (Acute) Tremor (Chronic) Hypomagnesemia (Acute) Hypokalemia (Acute) Dyspnea (Acute) Noncompliance (Chronic) Non compliance with medical treatment (Chronic) Delusional disorder Diarrhea (Chronic) Severe protein-calorie malnutrition Vertigo Hypomagnesemia Hypokalemia Dysphagia Early satiety Depression Anxiety (Chronic) Vitamin B12 deficiency Serum gamma globulin increased Psoriasis Obesity Low back pain Drug-induced tremor Arthralgia of multiple sites Tobacco abuse (Chronic) Diabetes type 2, uncontrolled IDDM Postmenopausal bleeding Thickened endometrium Mass of soft tissue Cervical mass Acute non-ST elevation myocardial infarction (NSTEMI) (Acute) Status post insertion of drug-eluting stent into left anterior descending (LAD) artery Chronic vulvitis S/P coronary artery stent placement (Chronic) 2 CHANTAL to LAD 10/22/2020 Thoracic spine pain Right upper quadrant abdominal pain (Acute) Diabetic nephropathy associated with type 2 diabetes mellitus Albuminuria Acute hyperglycemia (Acute) Fatigue Back pain Failure to thrive in adult Left upper quadrant pain Medical History CAD (coronary artery disease) Hypertension Hypothyroidism Chronic constipation Diabetes mellitus GERD (gastroesophageal reflux disease) Hyponatremia Vitamin D deficiency Diabetes mellitus type 2 in obese Acute on chronic combined systolic and diastolic CHF (congestive heart failure) Bradycardia with 41-50 beats per minute Hypokalemia Hypomagnesemia Accelerated hypertension Albuminuria Diabetic nephropathy associated with type 2 diabetes mellitus Depression Osteoarthritis Chronic headaches NSTEMI (non-ST elevated myocardial infarction) Vulvitis Dyslipidemia Tobacco abuse Obesity Anxiety Surgical History History of cardiac catheterization S/P coronary artery stent placement History of cholecystectomy History of dental surgery History of tonsillectomy Family History Unknown Diabetes Thyroid disorder Father Diabetes Other No family history of adverse response to anesthesia Denies family history of Ovarian cancer Prostate cancer Breast cancer Colorectal cancer Uterine cancer Social History (Updated 05/09/23 @ 13:14 by Holly Coleman LPN) Smoking Status: Current every day smoker Tobacco Type: Cigarettes packs per day: 0.5; Cigarettes Per Day: 5/ day; Second Hand Exposure: No; Do You Dip or Chew Tobacco: No; Hx Alcohol Use: No Hx Substance Use: No Preferred Language: Scottish Communication Ability: Effective Visual Impairment: No Limitations Fibreglass Lay Up Worker Required: No Beliefs That Will Affect Care: None marital status: Single Current Living Situation: Alone Current Living Situation Comment: lives in trailer current occupational status: disabled How many Children do You have: 0 Feels Safe at Home: Yes Safety Concerns: Feels Safe At This Time Safety Concerns Comment: Gets nervous sometimes because she lives alone, gets shaky from anxiety Diet: regular caffeine: Yes Dental Care, Regularly: No Physical Activity Frequency: Does not Exercise Seatbelt Use: always Sunscreen Use: No Assistive Devices: Walker Review of Systems Review of Systems: See HPI above Physical Exam Physical Exam: General: no acute distress; non-toxic appearing; well-nourished; cooperative; SpO2 94% on RA HEENT: normocephalic, atraumatic; no scleral icterus; PERRLA w/ EOMs intact; vision and hearing grossly intact; both ears are full of cerumen and difficult to visualize the TM bilaterally Neck: supple; no lymphadenopathy; trachea midline Skin: Superficial abrasions on the left knee; bruise on the dorsal aspect of the right foot; warm, dry without signs of tenting; no cyanosis CV: chest wall NTP; RR, tachycardic around 105 bpm; S1/S2 normal; no murmurs/rubs/gallops; pulses intact and symmetric at radial, DP, and PT Lungs: no acute respiratory distress; symmetrical chest wall expansion; clear breath sounds across all lung bradley w/o adventitious sounds; no wheezing ABD: Soft, NTP; BS present; no rebound/guarding; no distention MSK: no tics or fasciculations; +1 pitting edema noted in the LEs b/l, nonerythematous Neuro: A&Ox3; normal mood and affect; fluent speech; no focal deficits; sensation grossly intact in the LEs b/l Results & Data Results & Data Vital Signs (Past 12 Hours) Vital Signs Temp Pulse Pulse Resp BP BP Pulse Ox 09/06/23 20:21 105 H 19 134/90 92 09/06/23 20:21 95 09/06/23 19:52 36.8 C 112 H 19 134/80 98 O2 Del Method 09/06/23 20:21 Room Air 09/06/23 20:21 Room Air 09/06/23 19:52 Room Air Laboratory Results Abnormal lab results 09/06/23 Range/Units 20:15 WBC 20.12 H (4.8-10.8) K/ul RDW Coeff of Umair 14.8 H (11.5-14.5) % Neut # (Auto) 16.89 H (1.40-6.50) K/uL [place] # (Auto) 1.23 H (0.11-0.59) K/uL Sodium 127 L (136-145) mmol/L Potassium 5.8 H (3.5-5.1) mmol/L Chloride 95 L (98-107) mmol/L Creatinine 1.37 H (0.6-1.2) mg/dl Glucose 222 H (70-99(Fasting)) mg/dl Alkaline Phosphatase 117 H (34-104) U/L Supervising Physician Co-Signing Physician Notes Attending addendum: I have physically seen this patient, have supervised the WEN's activities, and agree with the H&P unless as otherwise noted. Assessment and Plan: Falls- Patient reports 2 falls since hospital discharge earlier on today on 09/05, with first getting in and out of a car, the second getting up off her sofa No injury noted She reports her legs just became generally weak Consult PT/OT Patient should be considered for inpatient rehab Acute kidney injury- Creatinine 1.37, with base 1.11 IV fluids with NSS at 80 mL/h x 500 mL Recheck BMP Hyponatremia- Associated with diabetes mellitus Follow serially with rehydration Hyperglycemia due to diabetes mellitus- Glucose 222 on admission Hold metformin and glimepiride Placed on Accu-Cheks with NovoLog SSI as noted PG Care Time/CCT Total # of Minutes Spent Total Time Spent with Patient: Total time spent is greater than 50% in coordination of care (as documented) at patient's floor/unit and/or counseling patient: C[place] [address] INT INP/OBS CARE 3/75MIN Patient Type Established Medical Decision Making High Complexity Diagnoses Falls R29.6 SAMRA (acute kidney injury) N17.9 Hyperglycemia due to type 2 diabetes mellitus E11.65; Z79.4 Diabetes mellitus rat exterminator insulin use: with shelter use Leukocytosis D72.829 Hyperkalemia E87.5 Tobacco use Z72.0 Hyponatremia E87.1 Hypomagnesemia E83.42 Coronary artery disease involving [place] coronary artery of [place] heart, unspecified whether angina present I25.10 Associated angina: unspecified whether angina present Coronary Disease-Associated Artery/Lesion type: [place] artery [place] vs. transplanted heart: [place] heart (3) Hyperglycemia due to type 2 diabetes mellitus Diabetes mellitus rat exterminator insulin use: with rat exterminator use Qualified Code(s): E11.65 - Type 2 diabetes mellitus with hyperglycemia; Z79.4 - rodent exterminator (current) use of insulin (9) CAD (coronary artery disease) Associated angina: unspecified whether angina present Coronary Disease- Associated Artery/Lesion type: [place] artery [place] vs. transplanted heart: [place] heart Qualified Code(s): I25.10 - Atherosclerotic heart disease of [place] coronary artery without angina pectoris
[2023-09-06 22:28] LABS: Magnesium 1.2 mg/dl (1.7-2.4)
[2023-09-06] MEDS: LACTATED RINGER'S 1,000 ML IV SCH (22:49)
[2023-09-06] MEDS: MAGNESIUM SULFATE / D5W 1 GM/100 ML BAG IV SCH (22:51)
[2023-09-06] MEDS: SODIUM CHLORIDE 0.9% 500 ML IV SCH (22:55)
[2023-09-06] MEDS ORDERED: CARBOHYDRATES FOR HYPOGLYCEMIA PO PRN (23:55)
[2023-09-06] MEDS ORDERED: GLUCOSE 40% GEL 15 GM TUBE PO PRN (23:55)
[2023-09-06] MEDS ORDERED: GLUCAGON FOR INJ 1 MG VIAL SQ PRN (23:55)
[2023-09-06] MEDS ORDERED: GLUCOSE 10 TAB/TUBE PO PRN (23:55)
[2023-09-06] MEDS ORDERED: DICLOFENAC SOD 1% GEL 100 GM TUBE EXT PRN (23:55)
[2023-09-06] MEDS ORDERED: DEXTROSE 50% 50 ML SYRINGE IV PRN (23:55)
[2023-09-07 00:20] LABS: Adenovirus PCR Not Detected (NotDetected); Bordetella parapertussis PCR Not Detected (NotDetected); Bordetella pertussis PCR Not Detected (NotDetected); Chlamydia pneumoniae PCR Not Detected (NotDetected); Coronavirus 229E PCR Not Detected (NotDetected); Coronavirus CoV-2 (COVID19)PCR Not Detected (NotDetected); Coronavirus HKU1 PCR Not Detected (NotDetected); Coronavirus NL63 PCR Not Detected (NotDetected); Coronavirus OC43PCR Not Detected (NotDetected); Human Metapneumovirus PCR Not Detected (NotDetected); Influenza A PCR Not Detected (NotDetected); Influenza B PCR Not Detected (NotDetected); Mycoplasma pneumoniae PCR Not Detected (NotDetected); Parainfluenza Virus 1 PCR Not Detected (NotDetected); Parainfluenza Virus 2 PCR Not Detected (NotDetected); Parainfluenza Virus 3 PCR Not Detected (NotDetected); Parainfluenza Virus 4 PCR Not Detected (NotDetected); Respiratory Syncytial VirusPCR Not Detected (NotDetected); Rhinovirus/Enterovirus PCR Not Detected (NotDetected)
[2023-09-07 00:24] LABS: BUN Creatinine Ratio 11.3 (10-20); Calcium 9.6 mg/dl (8.6-10.3); Creatinine Clr Calc Pharmacy 40.2 ml/min; Est GFR (African American) 45.4 ml/min; Est GFR (Non-African American) 39.2 ml/min; Potassium 4.8 mmol/L (3.5-5.1)
[2023-09-07] MEDS: ACETAMINOPHEN 325 MG TAB PO PRN (01:24)
[2023-09-07] MEDS: HEPARIN SOD 5,000 UNIT/0.5 ML VIAL SQ SCH (01:25)
[2023-09-07] MEDS: GABAPENTIN 600 MG TAB PO SCH (01:25)
[2023-09-07] MEDS: LEVOTHYROXINE SODIUM 88 MCG TABLET PO SCH (06:05)
[2023-09-07 06:30] LABS: Basophils # (auto) 0.04 K/uL (0.00-0.20); Basophils % (auto) 0.3 %; Eosinophils # (auto) 0.39 K/uL (0.00-0.50); Hemoglobin 11.1 g/dl (12.0-16.0); Immature Granulocytes # (auto) 0.06 K/uL (0.01-0.20); Immature Granulocytes % (auto) 0.5 %; Lymphocytes # (auto) 2.41 K/uL (1.20-3.40); Lymphocytes % (auto) 18.4 %; Mean Corpuscular Hemoglobin 27.3 pg (25.0-34.0); Mean Corpuscular Hgb Conc 32.6 g/dL (32.0-36.0); Mean Corpuscular Volume 83.5 fL (80.0-100.0); Mean Platelet Volume 10.5 fL (9.4-12.4); Monocytes # (auto) 1.14 K/uL (0.11-0.59); Monocytes % (auto) 8.7 %; Neutrophils # (auto) 9.06 K/uL (1.40-6.50); Neutrophils % (auto) 69.1 %; Platelet Count 244 K/uL (130-400); RDW Coefficient of Variation 14.8 % (11.5-14.5); RDW Standard Deviation 44.7 fL (36.4-46.3); Red Blood Count 4.07 M/uL (4.20-5.40)
[2023-09-07 06:32] LABS: BUN Creatinine Ratio 12.2 (10-20); Calcium 9.3 mg/dl (8.6-10.3); Creatinine Clr Calc Pharmacy 39.8 ml/min; Est GFR (African American) 46.6 ml/min; Est GFR (Non-African American) 40.2 ml/min; Magnesium 2.5 mg/dl (1.7-2.4); Potassium 4.9 mmol/L (3.5-5.1)
--- NOTE | 2023-09-07 07:02 | Hospitalist Progress Note ---
Date of Service September 07, 2023 Assessment & Plan (1) Hyperkalemia: (2) Leukocytosis: (3) Fall: (4) Hyponatremia: (5) Tobacco use: (6) Hyperkalemia: (7) Falls: (8) Knee pain: (9) Hypomagnesemia: (10) CAD (coronary artery disease): (11) SAMRA (acute kidney injury): (12) Acute dehydration: (13) Chronic constipation: Plan Pt is a 62 yo female with a PMH of T2DM w/ neuropathy, HTN, CAD s/p CHANTAL to LAD, chronic constipation, tobacco use disorder, tremor, vertigo, dysphagia, depression w/ anxiety, psoriasis, and failure to thrive in adult a/w protein calorie malnutrition who presented the hospital recently for chest discomfort and hypokalemia, stayed for abdominal discomfort secondary to significant constipation who was discharged 09/05 and re-presented to the hospital on 09/05 for ground level falls due to weakness and failure to thrive. Falls Failure to thrive in adult -ground level falls x 2 after hospital discharge on 09/05 while out with her brother - Patient lives with a walker at baseline - Patient reports that her legs gave out on both occasions; no head strike; no LOC, no presyncopal symptoms - Right/left knee x-rays; mild degenerative changes, small R knee effusion, no fractures - PT/OT evaluations pending but anticipate rehab need SAMRA - Mild; BUN 15, creatinine 1.4 (baseline 1.1) on admission - Avoid nephrotoxic agents for possible - Unclear if secondary to dehydration or medications - stable 1.39 today Leukocytosis - Leukocytosis at 20 on arrival with a neutrophilic predominance; afebrile, improved to 13 today - Unclear source, clinically, patient denies infectious symptoms; increased fatigue and weakness, and only new symptom is a dry cough that patient reports started on 09/04 - Suspect viral URI at this time vs UTI - CXR ordered, neg - Biofire ordered; neg - Procalcitonin; 0.05 - pt afebrile overnight, VSS, and white count improved so will await cx results and defer AB at this time Type 2 DM, uncontrolled - Last A1c at 12.0% on 08/27/2023 - Hold home metformin, glimepiride - SSI; with target BSG range 110-140mg/dL, CF 50, carb ratio 15 Tobacco use - Current everyday tobacco cigarette smoker - Continue to encourage cessation Electrolyte abnormalities - noted to have hyponatremia on admission 127, improved to 130 today - noted to have hyperkalemia 5.8 on admission, improved to 4.9 - noted to have hypomagnesemia 1.2 on admission which was repleted and now 2.5 CAD (coronary artery disease) - S/p CHANTAL - Continue aspirin and Brilinta Admission and Anticipated Discharge Date Admission Date: September 06, 2023 Supervising Physician Co-Signing Physician Notes I personally examined the patient and verified all real points of history and exam, discussed case, and agree with decision making with Dr Pablo Mcpherson and jason. Seen right after OT has finished seeing herthey are recommending rehab. Vitals noted, in general she is awake and alert pleasant no distress. HEENT normocephalic atraumatic mucous membranes moist. Breathing unlabored no accessory muscle use good effort. Skin shows no rashes no pallor or icterus. Neuro without focal deficits. Falls/weaknessPT/OT eval and treat. Anticipate rehab placement. Elevated creatinine/electrolyte abnormalitiesseems to have gotten dehydrated fairly quickly. Mostly improved with IV fluids. Continue to follow. Encourage oral intake. DVT prophylaxisheparin subcu Subjective Pt is a 62 yo female with a PMH of T2DM w/ neuropathy, HTN, CAD s/p CHANTAL to LAD, chronic constipation, tobacco use disorder, tremor, vertigo, dysphagia, depression w/ anxiety, psoriasis, and failure to thrive in adult a/w protein calorie malnutrition who presented the hospital recently for chest discomfort and hypokalemia, stayed for abdominal discomfort secondary to significant constipation who was discharged 09/05 and re-presented to the hospital on 09/05 for ground level falls due to weakness and failure to thrive. Today, pt states she is feeling okay. She states most of the pain she is experiencing is pain in her knees since when she fell yesterday both times she fell onto her knees on concrete. Otherwise, no questions or complaints at this time. No chest pain or SOB. No fever or chills. She is tolerating diet without issue. Review of Systems Review of Systems: Per HPI. Physical Exam Physical Exam: General:Alert and oriented, no acute distress, comfortable appearing HEENT: Normocephalic, moist oral mucosa, Cardio: Regular rate and rhythm, no murmur, Resp:Lungs clear to auscultation b/l, no wheezes or rhonchi, GI: Soft, bowel sounds active Skin: Warm, pink, dry, superficial scrape that is scabbed over outside L knee, knees both tender to palpation on medial and lateral margins, no bruising noted Results & Data Results & Data Vital Signs (Past 12 Hours) Vital Signs Temp Pulse Pulse Pulse Resp BP BP 09/07/23 04:12 36.4 C L 72 16 113/72 09/07/23 00:00 36.7 C 107 H 18 109/71 09/06/23 23:55 09/06/23 23:52 102 H 09/06/23 21:58 89 17 130/55 L 09/06/23 20:44 107 H 09/06/23 20:21 105 H 19 134/90 09/06/23 20:21 09/06/23 19:52 36.8 C 112 H 19 134/80 Pulse Ox Pulse Ox O2 Del Method O2 Del Method 09/07/23 04:12 94 Room Air 09/07/23 00:00 92 Room Air 09/06/23 23:55 92 Room Air 09/06/23 23:52 09/06/23 21:58 94 Room Air 09/06/23 20:44 09/06/23 20:21 92 Room Air 09/06/23 20:21 95 Room Air 09/06/23 19:52 98 Room Air Resident Activity Tracking Resident Involvement: Resident Care Provided Care Provided: Adult Hospital Medicine (2) Leukocytosis Leukocytosis type: unspecified Qualified Code(s): D72.829 - Elevated white blood cell count, unspecified (3) Fall Encounter type: initial encounter Qualified Code(s): W19.XXXA - Unspecified fall, initial encounter (9) CAD (coronary artery disease) Associated angina: unspecified whether angina present Coronary Disease- Associated Artery/Lesion type: [place] artery [place] vs. transplanted heart: [place] heart Qualified Code(s): I25.10 - Atherosclerotic heart disease of [place] coronary artery without angina pectoris
[2023-09-07 07:43] LABS: Appearance Urine Clear (Clear); Bacteria Urine Automated 4+ (None Seen); Bilirubin Urine Negative (Negative); Blood Urine Negative (Negative); Color Urine Yellow; Epithelial Cell Urine Auto 0-2 /hpf (0-2); Glucose Urine UA Negative (Negative); Ketones Urine Negative (Negative); Leukocyte Esterase Urine 1+ (Negative); Nitrite Urine Negative (Negative); Protein Urine Negative (Negative); RBC Urine Automated 0-2 /hpf (0-2); Specific Gravity Urine 1.009 (1.000-1.030); Urobilinogen Urine Negative (Negative); WBC Urine Automated 21-50 /hpf (0-5)
--- NOTE | 2023-09-07 08:00 | XRay Report ---
XR knee LT 3V, XR knee RT 1 or 2V routine CLINICAL HISTORY: l knee pain COMPARISON STUDY: Bilateral knees 02/21/2016. FINDINGS: No fracture or dislocation within the right or left knee. Vascular calcifications are noted . No soft tissue swelling. Mild degenerative changes again noted. There is a small right knee effusio n. IMPRESSION: 1. No fractures within the right or left knee. 2. Small right knee effusion. 3. Mild degenerative changes again noted. ACT 112: Negative or not required by law. Electronically signed by: Omid Pedroza M.D. 09/07/2023 7:59 AM
--- NOTE | 2023-09-07 08:00 | XRay Report ---
XR chest 1V portable HISTORY: ?pna COMPARISON: Chest 08/26/2023. FINDINGS: The lungs are clear. Cardiac silhouette is normal in size. No pleural effusions. No pneumot horax. IMPRESSION: No acute process. ACT 112: Negative or not required by law. Electronically signed by: Omid Pedroza M.D. 09/07/2023 7:59 AM
[2023-09-07] MEDS: buPROPion XL 150 MG TABCR PO SCH (08:19)
[2023-09-07] MEDS: ESCITALOPRAM OXALATE 20 MG TAB PO SCH (08:19)
[2023-09-07] MEDS: FOLIC ACID 1 MG TAB PO SCH (08:19)
[2023-09-07] MEDS: TICAGRELOR 90 MG TAB PO SCH (08:19)
[2023-09-07] MEDS: ASPIRIN 81 MG ECTAB PO SCH (08:19)
[2023-09-07] MEDS: POLYETHYLENE (MIRALAX) 17 GM PACK PO SCH (08:20)
[2023-09-07] MEDS: INSULIN ASPART PER UNIT CHARGE SC SCH (09:04)
[2023-09-07] MEDS ORDERED: MoRPHine SULFATE 4 MG/ML 1 ML CARP\\VIAL IV PRN (11:19)
[2023-09-07] MEDS: MoRPHine SULFATE 2 MG/ML CARP IV PRN (12:03)
--- NOTE | 2023-09-07 15:47 | Billing Data ---
Date of Service September 07, 2023 Coding Level of Care Code 88421 SUB INP/OBS CARE
[2023-09-07] MEDS: ATORVASTATIN 40 MG TAB PO SCH (20:42)
[2023-09-08 06:56] LABS: Basophils # (auto) 0.05 K/uL (0.00-0.20); Basophils % (auto) 0.6 %; Eosinophils # (auto) 0.59 K/uL (0.00-0.50); Eosinophils % (auto) 7.1 %; Hematocrit (blood only) 35.4 % (37.0-47.0); Hemoglobin 11.7 g/dl (12.0-16.0); Immature Granulocytes # (auto) 0.06 K/uL (0.01-0.20); Immature Granulocytes % (auto) 0.7 %; Lymphocytes # (auto) 1.81 K/uL (1.20-3.40); Lymphocytes % (auto) 21.8 %; Mean Corpuscular Hemoglobin 27.5 pg (25.0-34.0); Mean Corpuscular Hgb Conc 33.1 g/dL (32.0-36.0); Mean Corpuscular Volume 83.1 fL (80.0-100.0); Mean Platelet Volume 10.4 fL (9.4-12.4); Monocytes # (auto) 0.82 K/uL (0.11-0.59); Monocytes % (auto) 9.9 %; Neutrophils # (auto) 4.98 K/uL (1.40-6.50); Neutrophils % (auto) 59.9 %; Platelet Count 247 K/uL (130-400); RDW Coefficient of Variation 14.7 % (11.5-14.5); RDW Standard Deviation 44.4 fL (36.4-46.3); Red Blood Count 4.26 M/uL (4.20-5.40); White Blood Count 8.31 K/ul (4.8-10.8)
--- NOTE | 2023-09-08 07:17 | Hospitalist Progress Note ---
Date of Service September 08, 2023 Assessment & Plan (1) Hyperkalemia: (2) Leukocytosis: (3) Fall: (4) Hyponatremia: (5) Tobacco use: (6) Falls: (7) Knee pain: (8) Hypomagnesemia: (9) CAD (coronary artery disease): (10) SAMRA (acute kidney injury): (11) Acute dehydration: (12) Chronic constipation: Plan Pt is a 62 yo female with a PMH of T2DM w/ neuropathy, HTN, CAD s/p CHANTAL to LAD, chronic constipation, tobacco use disorder, tremor, vertigo, dysphagia, depression w/ anxiety, psoriasis, and failure to thrive in adult a/w protein calorie malnutrition who presented the hospital recently for chest discomfort and hypokalemia, stayed for abdominal discomfort secondary to significant constipation who was discharged 09/05 and re-presented to the hospital on 09/05 for ground level falls due to weakness and failure to thrive. Falls Failure to thrive in adult - ground level falls x 2 after hospital discharge on 09/05 while out with her brother - Patient lives with a walker at baseline - Patient reports that her legs gave out on both occasions; no head strike; no LOC, no presyncopal symptoms - Right/left knee x-rays; mild degenerative changes, small R knee effusion, no fractures - PT/OT: rehabilitation recommended - Case management following, placement pending SAMRA - Resolved: - Mild; BUN 15, creatinine 1.4 (baseline 1.1) on admission - Avoid nephrotoxic agents for possible - Unclear if secondary to dehydration or medications - Cr 1.09 today Leukocytosis - Leukocytosis at 20 on arrival with a neutrophilic predominance; afebrile, improved to 8.31 today - Unclear source, clinically, patient denies infectious symptoms; increased fatigue and weakness, and only new symptom is a dry cough that patient reports started on 09/04 - Urine culture positive for E. coli, asymptomatic at this time so will will not treat - CXR ordered, neg - Biofire ordered; neg - Procalcitonin; 0.05 - pt afebrile overnight, VSS, and white count improved Type 2 DM, uncontrolled - Last A1c at 12.0% on 08/27/2023 - Hold home metformin, glimepiride - SSI; with target BSG range 110-140mg/dL, CF 50, carb ratio 15 Tobacco use - Current everyday tobacco cigarette smoker - Continue to encourage cessation Electrolyte abnormalities - noted to have hyponatremia on admission 127, improved to 132 today - noted to have hyperkalemia 5.8 on admission, improved to 4.4 - noted to have hypomagnesemia 1.2 on admission which was repleted and now 2.5 CAD (coronary artery disease) - S/p CHANTAL - Continue aspirin and Brilinta Dispo: Med-Surg with Tele FEN/GI: CC/DM2 VTE ppx: Heparin Admission and Anticipated Discharge Date Admission Date: September 06, 2023 Supervising Physician Co-Signing Physician Notes Attending Physician Supervision Note: I independently interviewed and examined the patient and verified the real history and physical, reviewed labs and image studies and agree with findings and care plan noted above. Continues to have knee pain. Right more than left. Has not been able to get out of bed due to pain. Appetite okay. Nausea is chronic. Comfortable in bed. Alert Unable to flex either knees. Right knee slightly more swollen than left. No erythema. Fall -reported feeling weak in her legs. WBC on admission 20k - likely from poor PO intake or reactive. -Awaiting rehab placement -voltaren gel for knee pain SAMRA - Resolved with IV hydration Hyponatremia- Na 132. follow. Hyperglycemia due to diabetes mellitus- holding home meds - metformin/glimepiride resume metformin at lower dose and continue titrating up. SCD Subjective Pt is a 62 yo female with a PMH of T2DM w/ neuropathy, HTN, CAD s/p CHANTAL to LAD, chronic constipation, tobacco use disorder, tremor, vertigo, dysphagia, depression w/ anxiety, psoriasis, and failure to thrive in adult a/w protein calorie malnutrition who presented the hospital recently for chest discomfort and hypokalemia, stayed for abdominal discomfort secondary to significant constipation who was discharged 09/05 and re-presented to the hospital on 09/05 for ground level falls due to weakness and failure to thrive. Today, Yolanda is experiencing pain in her knees and ankle. Is also feeling somewhat nauseated, but states that this is her normal stomach pain. Had a bowel movement yesterday, was mostly unformed stool. Otherwise, no chest pain or SOB. No fever or chills. She is tolerating diet without issue. Was encouraged to ambulate more, but does have weakness. No pain with urination or urinary frequency. Review of Systems Review of Systems: Per HPI. Physical Exam Physical Exam: General:Alert and oriented, no acute distress, comfortable appearing HEENT: Normocephalic, moist oral mucosa, Cardio: Regular rate and rhythm, no murmurs, rubs, or gallops. Resp:Lungs clear to auscultation bilaterally, no wheezes or rhonchi. GI: Soft, bowel sounds active Skin: Warm, pink, dry, superficial scrape that is scabbed over outside L knee, knees both tender to palpation on medial and lateral margins. Mild bruising on feet. Results & Data Results & Data Vital Signs (Past 12 Hours) Vital Signs Temp Pulse Pulse Resp BP Pulse Ox O2 Del Method 09/08/23 06:53 75 09/08/23 04:21 36.6 C 80 16 138/76 93 Room Air 09/08/23 00:01 79 09/07/23 23:55 09/07/23 23:00 36.6 C 83 18 152/75 H 94 Room Air 09/07/23 19:57 36.6 C 81 16 136/66 94 Room Air O2 Del Method 09/08/23 06:53 09/08/23 04:21 09/08/23 00:01 09/07/23 23:55 Room Air 09/07/23 23:00 09/07/23 19:57 Resident Activity Tracking Resident Involvement: Resident Care Provided Care Provided: Adult Hospital Medicine (2) Leukocytosis Leukocytosis type: unspecified Qualified Code(s): D72.829 - Elevated white blood cell count, unspecified (3) Fall Encounter type: initial encounter Qualified Code(s): W19.XXXA - Unspecified fall, initial encounter (9) CAD (coronary artery disease) Associated angina: unspecified whether angina present Coronary Disease- Associated Artery/Lesion type: [place] artery [place] vs. transplanted heart: [place] heart Qualified Code(s): I25.10 - Atherosclerotic heart disease of [place] coronary artery without angina pectoris
[2023-09-08 07:25] LABS: BUN Creatinine Ratio 13.8 (10-20); Calcium 9.3 mg/dl (8.6-10.3); Creatinine Clr Calc Pharmacy 50.2 ml/min; Est GFR (African American) 62.6 ml/min; Potassium 4.4 mmol/L (3.5-5.1)
[2023-09-08] MEDS: traMADol HCL 50 MG TABLET PO PRN (17:54)
[2023-09-08] MEDS: DICLOFENAC SOD 1% GEL 100 GM TUBE EXT SCH (17:55)
--- NOTE | 2023-09-08 23:08 | Electrocardiogram Report ---
Test Reason : Blood Pressure : / mmHG Vent. Rate : 111 BPM Atrial Rate : 111 BPM P-R Int : 156 ms QRS Dur : 072 ms QT Int : 342 ms P-R-T Axes : 033 022 073 degrees QTc Int : 465 ms Sinus tachycardia Cannot rule out Anterior infarct , age undetermined Abnormal ECG When compared with ECG of 04-SEP-2023 07:21, Nonspecific T wave abnormality no longer evident in Inferior leads Confirmed by Macho Gates ([id number]) on 09/08/2023 11:08:13 PM Referred By: REFERRED SELF Confirmed By:Macho Gates
[2023-09-09 06:36] LABS: Basophils # (auto) 0.06 K/uL (0.00-0.20); Basophils % (auto) 0.7 %; Eosinophils # (auto) 0.75 K/uL (0.00-0.50); Eosinophils % (auto) 8.4 %; Hematocrit (blood only) 36.5 % (37.0-47.0); Hemoglobin 11.9 g/dl (12.0-16.0); Immature Granulocytes # (auto) 0.06 K/uL (0.01-0.20); Immature Granulocytes % (auto) 0.7 %; Lymphocytes # (auto) 2.47 K/uL (1.20-3.40); Lymphocytes % (auto) 27.6 %; Mean Corpuscular Hgb Conc 32.6 g/dL (32.0-36.0); Mean Corpuscular Volume 82.8 fL (80.0-100.0); Mean Platelet Volume 10.5 fL (9.4-12.4); Monocytes # (auto) 0.72 K/uL (0.11-0.59); Neutrophils % (auto) 54.6 %; Platelet Count 269 K/uL (130-400); RDW Coefficient of Variation 14.9 % (11.5-14.5); RDW Standard Deviation 44.8 fL (36.4-46.3); Red Blood Count 4.41 M/uL (4.20-5.40); White Blood Count 8.96 K/ul (4.8-10.8)
[2023-09-09 06:59] LABS: BUN Creatinine Ratio 14.8 (10-20); Calcium 9.2 mg/dl (8.6-10.3); Creatinine Clr Calc Pharmacy 48.3 ml/min; Est GFR (African American) 58.6 ml/min; Est GFR (Non-African American) 50.6 ml/min; Potassium 4.4 mmol/L (3.5-5.1)
[2023-09-09] MEDS: metFORMIN HCL ER 500 MG TABCR PO SCH (08:39)
--- NOTE | 2023-09-09 10:16 | Hospitalist Progress Note ---
Date of Service September 09, 2023 Assessment & Plan (1) Hyperkalemia: (2) Leukocytosis: (3) Fall: (4) Hyponatremia: (5) Tobacco use: (6) Falls: (7) Knee pain: (8) Hypomagnesemia: (9) CAD (coronary artery disease): (10) SAMRA (acute kidney injury): (11) Acute dehydration: (12) Chronic constipation: Plan Pt is a 62 yo female with a PMH of T2DM w/ neuropathy, HTN, CAD s/p CHANTAL to LAD, chronic constipation, tobacco use disorder, tremor, vertigo, dysphagia, depression w/ anxiety, psoriasis, and failure to thrive in adult a/w protein calorie malnutrition who presented the hospital recently for chest discomfort and hypokalemia, stayed for abdominal discomfort secondary to significant constipation who was discharged 09/05 and re-presented to the hospital on 09/05 for ground level falls due to weakness and failure to thrive. Falls Failure to thrive in adult - ground level falls x 2 after hospital discharge on 09/05 while out with her brother - Patient lives with a walker at baseline - Patient reports that her legs gave out on both occasions; no head strike; no LOC, no presyncopal symptoms - Right/left knee x-rays; mild degenerative changes, small R knee effusion, no fractures - PT/OT: rehabilitation recommended - Case management following, placement pending SAMRA - Resolved: - Mild; BUN 15, creatinine 1.4 (baseline 1.1) on admission - Avoid nephrotoxic agents - Unclear if secondary to dehydration or medications - AM Cr 1.15 Leukocytosis - Leukocytosis at 20 on arrival with a neutrophilic predominance; afebrile, improved to 8.96 today - Urine culture positive for E. coli, asymptomatic at this time so will will not treat - CXR ordered, neg - Biofire ordered; neg - Procalcitonin; 0.05 - pt afebrile overnight, VSS, and white count improved Type 2 DM, uncontrolled - Last A1c at 12.0% on 08/27/2023 - Hold home metformin, glimepiride - SSI; with target BSG range 110-140mg/dL, CF 50, carb ratio 15 Tobacco use - Current everyday tobacco cigarette smoker - Continue to encourage cessation Electrolyte abnormalities - noted to have hyponatremia on admission 127, improved to 132 today - noted to have hyperkalemia 5.8 on admission, improved to 4.4 - noted to have hypomagnesemia 1.2 on admission, s/p repletion CAD (coronary artery disease) - S/p CHANTAL - Continue aspirin and Brilinta Dispo: Med-Surg with Tele FEN/GI: CC/DM2 VTE ppx: Heparin Admission and Anticipated Discharge Date Admission Date: September 06, 2023 Supervising Physician Co-Signing Physician Notes Attending Physician Supervision Note: I independently interviewed and examined the patient and verified the real history and physical, reviewed labs and image studies and agree with findings and care plan noted above. Fall -reported feeling weak in her legs. WBC on admission 20k - likely from poor PO intake or reactive. -Awaiting rehab placement -voltaren gel for knee pain SAMRA - Resolved with IV hydration Hyponatremia- Na 132. follow. Hyperglycemia due to diabetes mellitus- holding home meds - glimepiride resumed metformin. follow blood sugar. SCD Subjective Pt is a 62 yo female with a PMH of T2DM w/ neuropathy, HTN, CAD s/p CHANTAL to LAD, chronic constipation, tobacco use disorder, tremor, vertigo, dysphagia, depression w/ anxiety, psoriasis, and failure to thrive in adult a/w protein calorie malnutrition who presented the hospital recently for chest discomfort and hypokalemia, stayed for abdominal discomfort secondary to significant constipation who was discharged 09/05 and re-presented to the hospital on 09/05 for ground level falls due to weakness and failure to thrive. No acute overnight events, patient continues to endorse right knee and foot pain, relieved with Tramadol, minimal improvement with Voltaren gel alone. Still denies urinary sx. Review of Systems Review of Systems: Per HPI. Physical Exam Physical Exam: General: Alert and oriented. No acute distress Cardiac: Regular rate and rhythm, no murmurs appreciated Respiratory: Lungs clear to auscultation bilaterally, No increased work of breathing Abdominal: Soft, non-tender, non-distended. Bowel sounds present. Results & Data Results & Data Vital Signs (Past 12 Hours) Vital Signs Temp Pulse Pulse Resp BP Pulse Ox O2 Del Method 09/09/23 08:33 Room Air 09/09/23 08:11 36.5 C 78 16 129/89 96 Room Air 09/09/23 07:00 72 09/09/23 02:35 36.6 C 77 18 103/67 97 Room Air 09/08/23 22:43 85 09/08/23 22:43 O2 Del Method 09/09/23 08:33 09/09/23 08:11 09/09/23 07:00 09/09/23 02:35 09/08/23 22:43 09/08/23 22:43 Room Air Resident Activity Tracking Resident Involvement: Resident Care Provided Care Provided: Adult Hospital Medicine (2) Leukocytosis Leukocytosis type: unspecified Qualified Code(s): D72.829 - Elevated white blood cell count, unspecified (3) Fall Encounter type: initial encounter Qualified Code(s): W19.XXXA - Unspecified fall, initial encounter (9) CAD (coronary artery disease) Associated angina: unspecified whether angina present Coronary Disease- Associated Artery/Lesion type: [place] artery [place] vs. transplanted heart: [place] heart Qualified Code(s): I25.10 - Atherosclerotic heart disease of [place] coronary artery without angina pectoris
[2023-09-09] MEDS: metFORMIN HCL 500 MG TAB PO ONE (17:39)
[2023-09-10 06:29] LABS: Hematocrit (blood only) 35.1 % (37.0-47.0); Hemoglobin 11.7 g/dl (12.0-16.0); Mean Corpuscular Hemoglobin 27.4 pg (25.0-34.0); Mean Corpuscular Hgb Conc 33.3 g/dL (32.0-36.0); Mean Corpuscular Volume 82.2 fL (80.0-100.0); Mean Platelet Volume 10.7 fL (9.4-12.4); Platelet Count 262 K/uL (130-400); RDW Coefficient of Variation 14.8 % (11.5-14.5); RDW Standard Deviation 44.2 fL (36.4-46.3); Red Blood Count 4.27 M/uL (4.20-5.40)
[2023-09-10 06:53] LABS: BUN Creatinine Ratio 15.5 (10-20); Calcium 9.1 mg/dl (8.6-10.3); Creatinine Clr Calc Pharmacy 47.9 ml/min; Est GFR (Non-African American) 50.1 ml/min; Potassium 4.5 mmol/L (3.5-5.1)
[2023-09-10] MEDS: metFORMIN HCL ER 500 MG TABCR PO SCH (08:12)
--- NOTE | 2023-09-10 13:33 | Hospitalist Progress Note ---
Date of Service September 10, 2023 Assessment & Plan (1) Hyperkalemia: (2) Leukocytosis: (3) Fall: (4) Hyponatremia: (5) Tobacco use: (6) Falls: (7) Knee pain: (8) Hypomagnesemia: (9) CAD (coronary artery disease): (10) SAMRA (acute kidney injury): (11) Acute dehydration: (12) Chronic constipation: Plan Pt is a 62 yo female with a PMH of T2DM w/ neuropathy, HTN, CAD s/p CHANTAL to LAD, chronic constipation, tobacco use disorder, tremor, vertigo, dysphagia, depression w/ anxiety, psoriasis, and failure to thrive in adult a/w protein calorie malnutrition who presented the hospital recently for chest discomfort and hypokalemia, stayed for abdominal discomfort secondary to significant constipation who was discharged 09/05 and re-presented to the hospital on 09/05 for ground level falls due to weakness and failure to thrive. Falls Failure to thrive in adult - ground level falls x 2 after hospital discharge on 09/05 while out with her brother - Patient lives with a walker at baseline - Patient reports that her legs gave out on both occasions; no head strike; no LOC, no presyncopal symptoms - Right/left knee x-rays; mild degenerative changes, small R knee effusion, no fractures - PT/OT: rehabilitation recommended - Case management following, placement pending SAMRA - Resolved: - Mild; BUN 15, creatinine 1.4 (baseline 1.1) on admission - Avoid nephrotoxic agents - Unclear if secondary to dehydration or medications - AM Cr 1.16 Leukocytosis - Resolved: - Leukocytosis at 20 on arrival with a neutrophilic predominance - Urine culture positive for E. coli, asymptomatic at this time so will will not treat - CXR ordered, neg - Biofire ordered; neg - Procalcitonin; 0.05 - pt afebrile overnight, VSS - AM WBC count 8.6 Type 2 DM, uncontrolled - Last A1c at 12.0% on 08/27/2023 - Hold home metformin, glimepiride - SSI; with target BSG range 110-140mg/dL, CF 50, carb ratio 15 Tobacco use - Current everyday tobacco cigarette smoker - Continue to encourage cessation Electrolyte abnormalities - noted to have hyponatremia on admission 127, improved to 132 today - noted to have hyperkalemia 5.8 on admission, improved to 4.5 - noted to have hypomagnesemia 1.2 on admission, s/p repletion CAD (coronary artery disease) - S/p CHANTAL - Continue aspirin and Brilinta Dispo: Med-Surg with Tele FEN/GI: CC/DM2 VTE ppx: Heparin Admission and Anticipated Discharge Date Admission Date: September 06, 2023 Supervising Physician Co-Signing Physician Notes Attending Physician Supervision Note: I independently interviewed and examined the patient and verified the real history and physical, reviewed labs and image studies and agree with findings and care plan noted above. Fall -reported feeling weak in her legs. WBC on admission 20k - likely from poor PO intake or reactive - resolved. -Awaiting rehab placement -voltaren gel, tramadol for knee pain SAMRA - Resolved with IV hydration Hyponatremia- Na stable at 132. Hyperglycemia due to diabetes mellitus- resumed metformin 09/07. glimepiride 09/09 SCD Subjective Pt is a 62 yo female with a PMH of T2DM w/ neuropathy, HTN, CAD s/p CHANTAL to LAD, chronic constipation, tobacco use disorder, tremor, vertigo, dysphagia, depression w/ anxiety, psoriasis, and failure to thrive in adult a/w protein calorie malnutrition who presented the hospital recently for chest discomfort and hypokalemia, stayed for abdominal discomfort secondary to significant constipation who was discharged 09/05 and re-presented to the hospital on 09/05 for ground level falls due to weakness and failure to thrive. No acute overnight events, patient continues to endorse right knee and foot pain, partial relief with combination of Tramadol, Tylenol, and Voltaren gel. Able to ambulate at least from bed to and from bathroom. Denies urinary sx. Denies fever/chills. Review of Systems Review of Systems: Per HPI. Physical Exam Physical Exam: General: Alert and oriented. No acute distress Cardiac: Regular rate and rhythm, no murmurs appreciated Respiratory: Lungs clear to auscultation bilaterally, No increased work of breathing Abdominal: Soft, non-tender, non-distended. Bowel sounds present. Results & Data Results & Data Vital Signs (Past 12 Hours) Vital Signs Temp Pulse Pulse Resp BP Pulse Ox O2 Del Method 09/10/23 11:27 36.4 C L 85 16 139/84 93 Room Air 09/10/23 08:30 Room Air 09/10/23 07:46 36.5 C 78 15 146/80 H 96 Room Air 09/10/23 07:00 76 09/10/23 03:43 36.9 C 71 16 119/69 94 Room Air 09/10/23 02:00 85 Resident Activity Tracking Resident Involvement: Resident Care Provided Care Provided: Adult Hospital Medicine (2) Leukocytosis Leukocytosis type: unspecified Qualified Code(s): D72.829 - Elevated white blood cell count, unspecified (3) Fall Encounter type: initial encounter Qualified Code(s): W19.XXXA - Unspecified fall, initial encounter (9) CAD (coronary artery disease) Associated angina: unspecified whether angina present Coronary Disease- Associated Artery/Lesion type: [place] artery [place] vs. transplanted heart: [place] heart Qualified Code(s): I25.10 - Atherosclerotic heart disease of [place] coronary artery without angina pectoris
[2023-09-10] MEDS: metFORMIN HCL 500 MG TAB PO ONE (16:45)
[2023-09-10] MEDS ORDERED: Nursing to Pharmacy Communication SCH (21:00)
[2023-09-10] MEDS: ALUMINUM/MAGNESIUM/SIMETH (MAALOX MAX) 30 ML UDC PO PRN (23:41)
[2023-09-11 06:01] LABS: Hematocrit (blood only) 36.5 % (37.0-47.0); Mean Corpuscular Hgb Conc 32.9 g/dL (32.0-36.0); Mean Corpuscular Volume 82.2 fL (80.0-100.0); Mean Platelet Volume 10.7 fL (9.4-12.4); Platelet Count 278 K/uL (130-400); RDW Coefficient of Variation 14.6 % (11.5-14.5); RDW Standard Deviation 44.1 fL (36.4-46.3); Red Blood Count 4.44 M/uL (4.20-5.40); White Blood Count 11.18 K/ul (4.8-10.8)
[2023-09-11 06:18] LABS: BUN Creatinine Ratio 16.7 (10-20); Calcium 9.2 mg/dl (8.6-10.3); Creatinine Clr Calc Pharmacy 48.9 ml/min; Est GFR (African American) 59.3 ml/min; Est GFR (Non-African American) 51.1 ml/min; Potassium 4.5 mmol/L (3.5-5.1)
[2023-09-11] MEDS: GLIMEPIRIDE 2 MG TAB PO SCH (08:14)
--- NOTE | 2023-09-11 15:39 | Hospitalist Progress Note ---
Date of Service September 11, 2023 Assessment & Plan (1) Hyperkalemia: (2) Leukocytosis: (3) Fall: (4) Hyponatremia: (5) Tobacco use: (6) Falls: (7) Knee pain: (8) Hypomagnesemia: (9) CAD (coronary artery disease): (10) SAMRA (acute kidney injury): (11) Acute dehydration: (12) Chronic constipation: Plan Pt is a 62 yo female with a PMH of T2DM w/ neuropathy, HTN, CAD s/p CHANTAL to LAD, chronic constipation, tobacco use disorder, tremor, vertigo, dysphagia, depression w/ anxiety, psoriasis, and failure to thrive in adult a/w protein calorie malnutrition who presented the hospital recently for chest discomfort and hypokalemia, stayed for abdominal discomfort secondary to significant constipation who was discharged 09/05 and re-presented to the hospital on 09/05 for ground level falls due to weakness and failure to thrive. Falls Failure to thrive in adult - ground level falls x 2 after hospital discharge on 09/05 while out with her brother - Patient lives with a walker at baseline - Patient reports that her legs gave out on both occasions; no head strike; no LOC, no presyncopal symptoms - Right/left knee x-rays; mild degenerative changes, small R knee effusion, no fractures - PT/OT: placement recommended - Case management following, SNF placement pending Hyponatremia: - AM Na 128, likely secondary to Tramadol initiation, possibly mildly depressed due to mild hyperglycemia - Pt asymptomatic, clinically stable - continue to monitor SAMRA - Resolved: - Mild; BUN 15, creatinine 1.4 (baseline 1.1) on admission - Avoid nephrotoxic agents - Unclear if secondary to dehydration or medications - AM Cr 1.14 Leukocytosis - Resolved: - Leukocytosis at 20 on arrival with a neutrophilic predominance - Urine culture positive for E. coli, asymptomatic at this time so will will not treat - CXR ordered, neg - Biofire ordered; neg - Procalcitonin; 0.05 - pt afebrile overnight, VSS Type 2 DM, uncontrolled - Last A1c at 12.0% on 08/27/2023 - Home metformin, glimepiride resumed - SSI; with target BSG range 110-140mg/dL, CF 50, carb ratio 15 Tobacco use - Current everyday tobacco cigarette smoker - Continue to encourage cessation Electrolyte abnormalities - noted to have hyponatremia on admission 127, improved to 132 today - noted to have hyperkalemia 5.8 on admission, improved to 4.5 - noted to have hypomagnesemia 1.2 on admission, s/p repletion CAD (coronary artery disease) - S/p CHANTAL - Continue aspirin and Brilinta Dispo: Med-Surg with Tele FEN/GI: CC/DM2 VTE ppx: Heparin Admission and Anticipated Discharge Date Admission Date: September 06, 2023 Supervising Physician Co-Signing Physician Notes Attending Physician Supervision Note: I independently interviewed and examined the patient and verified the real history and physical, reviewed labs and image studies and agree with findings and care plan noted above. Fall -reported feeling weak in her legs. WBC on admission 20k - likely from poor PO intake or reactive - resolved. -Awaiting rehab placement -voltaren gel, tramadol for knee pain SAMRA - Resolved with IV hydration Hyponatremia- associated with hyperglycemia. continue with blood sugar control. Hyperglycemia due to diabetes mellitus- resumed metformin and glimepiride. if persistently high in am - will further increase glimepiride dose. SCD Subjective Pt is a 62 yo female with a PMH of T2DM w/ neuropathy, HTN, CAD s/p CHANTAL to LAD, chronic constipation, tobacco use disorder, tremor, vertigo, dysphagia, depression w/ anxiety, psoriasis, and failure to thrive in adult a/w protein calorie malnutrition who presented the hospital recently for chest discomfort and hypokalemia, stayed for abdominal discomfort secondary to significant constipation who was discharged 09/05 and re-presented to the hospital on 09/05 for ground level falls due to weakness and failure to thrive. No acute overnight events, patient continues to endorse right knee and foot pain that seemed to be more sore after PT yesterday, partial relief with combination of Tramadol, Tylenol, and Voltaren gel. Able to ambulate around the floor, occasional feeling of weakness but no falls, denies feeling of knees buckling. Denies urinary sx. Denies fever/chills. Review of Systems Review of Systems: Per HPI. Physical Exam Physical Exam: General: Alert and oriented. No acute distress Cardiac: Regular rate and rhythm, no murmurs appreciated Respiratory: Lungs clear to auscultation bilaterally, No increased work of breathing Abdominal: Soft, non-tender, non-distended. Bowel sounds present. Results & Data Results & Data Vital Signs (Past 12 Hours) Vital Signs Temp Pulse Pulse Resp BP Pulse Ox O2 Del Method 09/11/23 15:30 36.5 C 83 18 121/79 99 Room Air 09/11/23 15:29 90 09/11/23 11:38 36.7 C 86 18 104/69 98 Room Air 09/11/23 08:03 36.5 C 90 18 126/82 97 Room Air 09/11/23 07:22 78 Resident Activity Tracking Resident Involvement: Resident Care Provided Care Provided: Adult Hospital Medicine (2) Leukocytosis Leukocytosis type: unspecified Qualified Code(s): D72.829 - Elevated white blood cell count, unspecified (3) Fall Encounter type: initial encounter Qualified Code(s): W19.XXXA - Unspecified fall, initial encounter (9) CAD (coronary artery disease) Associated angina: unspecified whether angina present Coronary Disease- Associated Artery/Lesion type: [place] artery [place] vs. transplanted heart: [place] heart Qualified Code(s): I25.10 - Atherosclerotic heart disease of [place] coronary artery without angina pectoris
[2023-09-11] MEDS: ONDANSETRON INJ 2 MG/ML 2 ML VIAL IV PRN (19:43)
[2023-09-12 06:52] LABS: Hematocrit (blood only) 36.7 % (37.0-47.0); Hemoglobin 11.9 g/dl (12.0-16.0); Mean Corpuscular Hemoglobin 26.9 pg (25.0-34.0); Mean Corpuscular Hgb Conc 32.4 g/dL (32.0-36.0); Mean Platelet Volume 10.7 fL (9.4-12.4); Platelet Count 290 K/uL (130-400); RDW Coefficient of Variation 14.3 % (11.5-14.5); RDW Standard Deviation 42.7 fL (36.4-46.3); Red Blood Count 4.42 M/uL (4.20-5.40); White Blood Count 10.24 K/ul (4.8-10.8)
[2023-09-12 07:14] LABS: BUN Creatinine Ratio 16.7 (10-20); Calcium 9.4 mg/dl (8.6-10.3); Creatinine Clr Calc Pharmacy 54.5 ml/min; Est GFR (African American) 67.8 ml/min; Est GFR (Non-African American) 58.5 ml/min; Potassium 4.4 mmol/L (3.5-5.1)
[2023-09-12] MEDS: FAMOTIDINE 40 MG TABLET PO ONE (15:51)
--- NOTE | 2023-09-12 15:57 | Hospitalist Progress Note ---
Date of Service September 12, 2023 Assessment & Plan (1) Hyperkalemia: (2) Leukocytosis: (3) Fall: (4) Hyponatremia: (5) Tobacco use: (6) Falls: (7) Knee pain: (8) Hypomagnesemia: (9) CAD (coronary artery disease): (10) SAMRA (acute kidney injury): (11) Acute dehydration: (12) Chronic constipation: Plan Pt is a 62 yo female with a PMH of T2DM w/ neuropathy, HTN, CAD s/p CHANTAL to LAD, chronic constipation, tobacco use disorder, tremor, vertigo, dysphagia, depression w/ anxiety, psoriasis, and failure to thrive in adult a/w protein calorie malnutrition who presented the hospital recently for chest discomfort and hypokalemia, stayed for abdominal discomfort secondary to significant constipation who was discharged 09/05 and re-presented to the hospital on 09/05 for ground level falls due to weakness and failure to thrive. Falls Failure to thrive in adult - ground level falls x 2 after hospital discharge on 09/05 while out with her brother - Patient lives with a walker at baseline - Patient reports that her legs gave out on both occasions; no head strike; no LOC, no presyncopal symptoms - Right/left knee x-rays; mild degenerative changes, small R knee effusion, no fractures - PT/OT: placement recommended - Case management following, SNF placement pending - auth still pending for [facility] Hyponatremia: - AM Na 130, likely secondary to Tramadol initiation, possibly mildly depressed due to mild hyperglycemia - Pt asymptomatic, clinically stable - continue to monitor SAMRA - Resolved: - Mild; BUN 15, creatinine 1.4 (baseline 1.1) on admission - Avoid nephrotoxic agents - Unclear if secondary to dehydration or medications - AM Cr 1.02 Leukocytosis - Resolved: - Leukocytosis at 20 on arrival with a neutrophilic predominance, has since normalized - Urine culture positive for E. coli, asymptomatic at this time so will will not treat - CXR ordered, neg - Biofire ordered; neg - Procalcitonin; 0.05 - pt afebrile overnight, VSS Type 2 DM, uncontrolled - Last A1c at 12.0% on 08/27/2023 - Home metformin, glimepiride resumed - will try administering Metformin in divided doses (500mg BID) - SSI; with target BSG range 110-140mg/dL, CF 50, carb ratio 15 Tobacco use - Current everyday tobacco cigarette smoker - Continue to encourage cessation Electrolyte abnormalities - noted to have hyponatremia on admission 127, improved to 130 today - noted to have hyperkalemia 5.8 on admission, improved to 4.4 - noted to have hypomagnesemia 1.2 on admission, s/p repletion CAD (coronary artery disease) - S/p CHANTAL - Continue aspirin and Brilinta Dispo: Med-Surg with Tele FEN/GI: CC/DM2 VTE ppx: Heparin Admission and Anticipated Discharge Date Admission Date: September 06, 2023 Supervising Physician Co-Signing Physician Notes Attending Physician Supervision Note: I independently interviewed and examined the patient and verified the real history and physical, reviewed labs and image studies and agree with findings and care plan noted above. Fall -reported feeling weak in her legs. WBC on admission 20k - likely from poor PO intake or reactive - resolved. -Awaiting rehab placement -voltaren gel, tramadol for knee pain SAMRA - Resolved with IV hydration Hyponatremia- associated with hyperglycemia. continue with blood sugar control. Hyperglycemia due to diabetes mellitus- resumed metformin and glimepiride. - High am and lower evening readings - will split metformin to 500mgs bid instead of 1000mgs daily. follow. SCD Subjective Pt is a 62 yo female with a PMH of T2DM w/ neuropathy, HTN, CAD s/p CHANTAL to LAD, chronic constipation, tobacco use disorder, tremor, vertigo, dysphagia, depression w/ anxiety, psoriasis, and failure to thrive in adult a/w protein calorie malnutrition who presented the hospital recently for chest discomfort and hypokalemia, stayed for abdominal discomfort secondary to significant constipation who was discharged 09/05 and re-presented to the hospital on 09/05 for ground level falls due to weakness and failure to thrive. No acute overnight events, patient continues to endorse right knee and foot pain, partial relief with combination of Tramadol, Tylenol, and Voltaren gel. Able to ambulate around the floor, occasional feeling of weakness but no falls, denies feeling of knees buckling. Denies urinary sx. Denies fever/chills. Placement pending. Review of Systems Review of Systems: Per HPI. Physical Exam Physical Exam: General: Alert and oriented. No acute distress Cardiac: Regular rate and rhythm, no murmurs appreciated Respiratory: Lungs clear to auscultation bilaterally, No increased work of breathing Abdominal: Soft, non-tender, non-distended. Bowel sounds present. Results & Data Results & Data Vital Signs (Past 12 Hours) Vital Signs Temp Pulse Pulse Resp BP Pulse Ox O2 Del Method 09/12/23 15:22 37.0 C 88 18 111/71 94 Room Air 09/12/23 12:00 36.6 C 77 20 113/73 94 Room Air 09/12/23 11:04 76 Resident Activity Tracking Resident Involvement: Resident Care Provided Care Provided: Adult Hospital Medicine (2) Leukocytosis Leukocytosis type: unspecified Qualified Code(s): D72.829 - Elevated white blood cell count, unspecified (3) Fall Encounter type: initial encounter Qualified Code(s): W19.XXXA - Unspecified fall, initial encounter (9) CAD (coronary artery disease) Associated angina: unspecified whether angina present Coronary Disease- Associated Artery/Lesion type: [place] artery [place] vs. transplanted heart: [place] heart Qualified Code(s): I25.10 - Atherosclerotic heart disease of [place] coronary artery without angina pectoris
[2023-09-12] MEDS: metFORMIN HCL ER 500 MG TABCR PO SCH (18:11)
--- NOTE | 2023-09-13 11:58 | Hospitalist Progress Note ---
Date of Service September 13, 2023 Assessment & Plan (1) Hyperkalemia: (2) Leukocytosis: (3) Fall: (4) Hyponatremia: (5) Tobacco use: (6) Falls: (7) Knee pain: (8) Hypomagnesemia: (9) CAD (coronary artery disease): (10) SAMRA (acute kidney injury): (11) Acute dehydration: (12) Chronic constipation: Plan Pt is a 62 yo female with a PMH of T2DM w/ neuropathy, HTN, CAD s/p CHANTAL to LAD, chronic constipation, tobacco use disorder, tremor, vertigo, dysphagia, depression w/ anxiety, psoriasis, and failure to thrive in adult a/w protein calorie malnutrition who presented the hospital recently for chest discomfort and hypokalemia, stayed for abdominal discomfort secondary to significant constipation who was discharged 09/05 and re-presented to the hospital on 09/05 for ground level falls due to weakness and failure to thrive. Falls Failure to thrive in adult - ground level falls x 2 after hospital discharge on 09/05 while out with her brother - Patient lives with a walker at baseline - Patient reports that her legs gave out on both occasions; no head strike; no LOC, no presyncopal symptoms - Right/left knee x-rays; mild degenerative changes, small R knee effusion, no fractures - PT/OT: placement recommended - Case management following, SNF placement pending - auth still pending for [facility] Hyponatremia, mild - Stable: - Likely secondary to Tramadol, possibly mildly depressed due to mild hyp erglycemia - Pt asymptomatic, clinically stable - continue to monitor SAMRA - Resolved: - Mild; BUN 15, creatinine 1.4 (baseline 1.1) on admission - Avoid nephrotoxic agents - Unclear if secondary to dehydration or medications Leukocytosis - Resolved: - Leukocytosis at 20 on arrival with a neutrophilic predominance, has since norm alized - Urine culture positive for E. coli, asymptomatic at this time so will will not treat - CXR ordered, neg - Biofire ordered; neg - Procalcitonin; 0.05 - pt afebrile overnight, VSS Type 2 DM, uncontrolled - Last A1c at 12.0% on 08/27/2023 - Home metformin, glimepiride resumed - will increase Metformin to 1000mg QAM + 500mg QPM - SSI; with target BSG range 110-140mg/dL, CF 50, carb ratio 15 Tobacco use - Current everyday tobacco cigarette smoker - Continue to encourage cessation Electrolyte abnormalities - noted to have hyponatremia on admission 127, improved - noted to have hyperkalemia 5.8 on admission, improved - noted to have hypomagnesemia 1.2 on admission, s/p repletion CAD (coronary artery disease) - S/p CHANTAL - Continue aspirin and Brilinta Dispo: Med-Surg with Tele FEN/GI: CC/DM2 VTE ppx: Heparin Admission and Anticipated Discharge Date Admission Date: September 06, 2023 Supervising Physician Co-Signing Physician Notes Attending Physician Supervision Note: I independently interviewed and examined the patient and verified the real history and physical, reviewed labs and image studies and agree with findings and care plan noted above. Fall -reported feeling weak in her legs. WBC on admission 20k - likely from poor PO intake or reactive - resolved. -Awaiting rehab placement -voltaren gel, tramadol for knee pain SAMRA - Resolved with IV hydration Hyponatremia- associated with hyperglycemia. continue with blood sugar control. Hyperglycemia due to diabetes mellitus- resumed metformin and glimepiride. - increase am dose metformin to 1000mgs. continue evening dose to 500mgs. SCD Subjective Pt is a 62 yo female with a PMH of T2DM w/ neuropathy, HTN, CAD s/p CHANTAL to LAD, chronic constipation, tobacco use disorder, tremor, vertigo, dysphagia, depression w/ anxiety, psoriasis, and failure to thrive in adult a/w protein calorie malnutrition who presented the hospital recently for chest discomfort and hypokalemia, stayed for abdominal discomfort secondary to significant constipation who was discharged 09/05 and re-presented to the hospital on 09/05 for ground level falls due to weakness and failure to thrive. No acute overnight events, patient continues to endorse right knee and foot pain, largely relieved with combination of Tramadol, Tylenol, and Voltaren gel. Able to ambulate around the floor, occasional feeling of weakness but no falls, denies feeling of knees buckling. Denies urinary sx. Denies fever/chills. SNF auth still pending. Review of blood sugars significant for ongoing AM readings in the 200s. Review of Systems Review of Systems: Per HPI. Physical Exam Physical Exam: General: Alert and oriented. No acute distress Cardiac: Regular rate and rhythm, no murmurs appreciated Respiratory: Lungs clear to auscultation bilaterally, No increased work of breathing Abdominal: Soft, non-tender, non-distended. Bowel sounds present. Results & Data Results & Data Vital Signs (Past 12 Hours) Vital Signs Temp Pulse Pulse Resp BP BP Pulse Ox 09/13/23 11:13 36.7 C 95 H 18 122/77 96 09/13/23 07:25 79 09/13/23 07:22 36.7 C 76 18 108/65 97 09/13/23 02:45 36.5 C 72 18 115/75 97 O2 Del Method 09/13/23 11:13 Room Air 09/13/23 07:25 09/13/23 07:22 Room Air 09/13/23 02:45 Room Air Resident Activity Tracking Resident Involvement: Resident Care Provided Care Provided: Adult Hospital Medicine (2) Leukocytosis Leukocytosis type: unspecified Qualified Code(s): D72.829 - Elevated white blood cell count, unspecified (3) Fall Encounter type: initial encounter Qualified Code(s): W19.XXXA - Unspecified fall, initial encounter (9) CAD (coronary artery disease) Associated angina: unspecified whether angina present Coronary Disease- Associated Artery/Lesion type: [place] artery [place] vs. transplanted heart: [place] heart Qualified Code(s): I25.10 - Atherosclerotic heart disease of [place] coronary artery without angina pectoris
[2023-09-13] MEDS: metFORMIN HCL ER 500 MG TABCR PO SCH (21:44)
[2023-09-13] MEDS: FAMOTIDINE 20 MG TAB PO ONE (23:17)
[2023-09-14] MEDS: metFORMIN HCL ER 500 MG TABCR PO SCH (08:48)
--- NOTE | 2023-09-14 13:58 | Hospitalist Progress Note ---
Date of Service September 14, 2023 Assessment & Plan (1) Hyperkalemia: (2) Leukocytosis: (3) Fall: (4) Hyponatremia: (5) Tobacco use: (6) Falls: (7) Knee pain: (8) Hypomagnesemia: (9) CAD (coronary artery disease): (10) SAMRA (acute kidney injury): (11) Acute dehydration: (12) Chronic constipation: Plan Pt is a 62 yo female with a PMH of T2DM w/ neuropathy, HTN, CAD s/p CHANTAL to LAD, chronic constipation, tobacco use disorder, tremor, vertigo, dysphagia, depression w/ anxiety, psoriasis, and failure to thrive in adult a/w protein calorie malnutrition who presented the hospital recently for chest discomfort and hypokalemia, stayed for abdominal discomfort secondary to significant constipation who was discharged 09/05 and re-presented to the hospital on 09/05 for ground level falls due to weakness and failure to thrive. Falls Failure to thrive in adult - ground level falls x 2 after hospital discharge on 09/05 while out with her brother - Patient lives with a walker at baseline - Patient reports that her legs gave out on both occasions; no head strike; no LOC, no presyncopal symptoms - Right/left knee x-rays; mild degenerative changes, small R knee effusion, no fractures - PT/OT: placement recommended - Case management following, SNF placement pending - auth still pending for [facility] Hyponatremia, mild - Stable: - Likely secondary to Tramadol, possibly mildly depressed due to mild hyp erglycemia - Pt asymptomatic, clinically stable - continue to monitor SAMRA - Resolved: - Mild; BUN 15, creatinine 1.4 (baseline 1.1) on admission - Avoid nephrotoxic agents - Unclear if secondary to dehydration or medications Leukocytosis - Resolved: - Leukocytosis at 20 on arrival with a neutrophilic predominance, has since norm alized - Urine culture positive for E. coli, asymptomatic at this time so will will not treat - CXR ordered, neg - Biofire ordered; neg - Procalcitonin; 0.05 - pt afebrile overnight, VSS Type 2 DM, uncontrolled - Last A1c at 12.0% on 08/27/2023 - Home metformin, glimepiride resumed - Continue with increased Metformin dose (1000mg QAM + 500mg QPM) - SSI; with target BSG range 110-140mg/dL, CF 50, carb ratio 15 Tobacco use - Current everyday tobacco cigarette smoker - Continue to encourage cessation Electrolyte abnormalities - noted to have hyponatremia on admission 127, improved - noted to have hyperkalemia 5.8 on admission, improved - noted to have hypomagnesemia 1.2 on admission, s/p repletion CAD (coronary artery disease) - S/p CHANTAL - Continue aspirin and Brilinta Dispo: Med-Surg with Tele FEN/GI: CC/DM2 VTE ppx: Heparin Admission and Anticipated Discharge Date Admission Date: September 06, 2023 Supervising Physician Co-Signing Physician Notes Attending Physician Supervision Note: I independently interviewed and examined the patient and verified the real history and physical, reviewed labs and image studies and agree with findings and care plan noted above. Fall -reported feeling weak in her legs. WBC on admission 20k - likely from poor PO intake or reactive - resolved. -Awaiting rehab placement -voltaren gel, tramadol for knee pain SAMRA - Resolved with IV hydration Hyponatremia- associated with hyperglycemia. continue with blood sugar control. Hyperglycemia due to diabetes mellitus- resumed metformin and glimepiride. - increase am dose metformin to 1000mgs. continue evening dose to 500mgs. -Glucose level high in am despite increase metformin - likely from late night snack. -Discussed not having late night snack. -Follow blood glucose levels. SCD Subjective Pt is a 62 yo female with a PMH of T2DM w/ neuropathy, HTN, CAD s/p CHANTAL to LAD, chronic constipation, tobacco use disorder, tremor, vertigo, dysphagia, depression w/ anxiety, psoriasis, and failure to thrive in adult a/w protein calorie malnutrition who presented the hospital recently for chest discomfort and hypokalemia, stayed for abdominal discomfort secondary to significant constipation who was discharged 09/05 and re-presented to the hospital on 09/05 for ground level falls due to weakness and failure to thrive. No acute overnight events, patient continues to endorse right knee and foot pain, largely relieved with combination of Tramadol, Tylenol, and Voltaren gel. Able to ambulate around the floor, occasional feeling of weakness but no falls, denies feeling of knees buckling. Denies urinary sx. Denies fever/chills. SNF auth still pending. Review of Systems Review of Systems: Per HPI. Physical Exam Physical Exam: General: Alert and oriented. No acute distress Cardiac: Regular rate and rhythm, no murmurs appreciated Respiratory: Lungs clear to auscultation bilaterally, No increased work of breathing Abdominal: Soft, non-tender, non-distended. Bowel sounds present. Results & Data Results & Data Vital Signs (Past 12 Hours) Vital Signs Temp Pulse Pulse Resp BP BP Pulse Ox 09/14/23 11:05 36.8 C 88 18 123/76 97 09/14/23 07:58 09/14/23 07:49 36.6 C 86 18 127/77 97 09/14/23 07:00 66 09/14/23 04:05 36.7 C 74 18 105/68 98 O2 Del Method 09/14/23 11:05 Room Air 09/14/23 07:58 Room Air 09/14/23 07:49 Room Air 09/14/23 07:00 09/14/23 04:05 Room Air Resident Activity Tracking Resident Involvement: Resident Care Provided Care Provided: Adult Hospital Medicine (2) Leukocytosis Leukocytosis type: unspecified Qualified Code(s): D72.829 - Elevated white blood cell count, unspecified (3) Fall Encounter type: initial encounter Qualified Code(s): W19.XXXA - Unspecified fall, initial encounter (9) CAD (coronary artery disease) Associated angina: unspecified whether angina present Coronary Disease- Associated Artery/Lesion type: [place] artery [place] vs. transplanted heart: [place] heart Qualified Code(s): I25.10 - Atherosclerotic heart disease of [place] coronary artery without angina pectoris
[2023-09-14] MEDS: FAMOTIDINE 40 MG TABLET PO ONE (19:49)
--- NOTE | 2023-09-15 12:59 | Hospitalist Progress Note ---
Date of Service September 15, 2023 Assessment & Plan (1) Hyperkalemia: (2) Leukocytosis: (3) Fall: (4) Hyponatremia: (5) Tobacco use: (6) Falls: (7) Knee pain: (8) Hypomagnesemia: (9) CAD (coronary artery disease): (10) SAMRA (acute kidney injury): (11) Acute dehydration: (12) Chronic constipation: Plan Pt is a 62 yo female with a PMH of T2DM w/ neuropathy, HTN, CAD s/p CHANTAL to LAD, chronic constipation, tobacco use disorder, tremor, vertigo, dysphagia, depression w/ anxiety, psoriasis, and failure to thrive in adult a/w protein calorie malnutrition who presented the hospital recently for chest discomfort and hypokalemia, stayed for abdominal discomfort secondary to significant constipation who was discharged 09/05 and re-presented to the hospital on 09/05 for ground level falls due to weakness and failure to thrive. Falls Failure to thrive in adult - ground level falls x 2 after hospital discharge on 09/05 while out with her brother - Patient lives with a walker at baseline - Patient reports that her legs gave out on both occasions; no head strike; no LOC, no presyncopal symptoms - Right/left knee x-rays; mild degenerative changes, small R knee effusion, no fractures - PT/OT: placement recommended - Case management following, SNF placement pending - auth still pending for [facility] Hyponatremia, mild - Resolved: - Likely secondary to Tramadol, possibly mildly depressed due to mild h yperglycemia - Pt asymptomatic, clinically stable - continue to monitor SAMRA - Resolved: - Mild; BUN 15, creatinine 1.4 (baseline 1.1) on admission - Avoid nephrotoxic agents - Unclear if secondary to dehydration or medications Leukocytosis - Resolved: - Leukocytosis at 20 on arrival with a neutrophilic predominance, has since no rmalized - Urine culture positive for E. coli, asymptomatic at this time so will will not treat - CXR ordered, neg - Biofire ordered; neg - Procalcitonin; 0.05 - pt afebrile overnight, VSS Type 2 DM, uncontrolled - Last A1c at 12.0% on 08/27/2023 - Home metformin, glimepiride resumed - Continue with increased Metformin dose (1000mg QAM + 500mg QPM) - SSI; with target BSG range 110-140mg/dL, CF 50, carb ratio 15 Tobacco use - Current everyday tobacco cigarette smoker - Continue to encourage cessation Electrolyte abnormalities -Resolved CAD (coronary artery disease) - S/p CHANTAL - Continue aspirin and Brilinta Dispo: Med-Surg with Tele FEN/GI: CC/DM2 VTE ppx: Heparin Admission and Anticipated Discharge Date Admission Date: September 06, 2023 Supervising Physician Co-Signing Physician Notes I personally examined the patient and verified all real points of history and exam, discussed case, and agree with decision making with Dr Mamadou Mcpherson -reported feeling weak in her legs. WBC on admission 20k - likely from poor PO intake or reactive - resolved. -Awaiting rehab placement - for SNF tomorrow -voltaren gel, tramadol for knee pain SAMRA - Resolved with IV hydration (was probably bowel prep > PO intake) Hyponatremia- associated with hyperglycemia. continue with blood sugar control. Hyperglycemia due to diabetes mellitus- resumed metformin and glimepiride. - seems a little less afraid of euglycemia than last week SCD Subjective Pt is a 62 yo female with a PMH of T2DM w/ neuropathy, HTN, CAD s/p CHANTAL to LAD, chronic constipation, tobacco use disorder, tremor, vertigo, dysphagia, depression w/ anxiety, psoriasis, and failure to thrive in adult a/w protein calorie malnutrition who presented the hospital recently for chest discomfort and hypokalemia, stayed for abdominal discomfort secondary to significant constipation who was discharged 09/05 and re-presented to the hospital on 09/05 for ground level falls due to weakness and failure to thrive. No acute overnight events, patient continues to endorse right knee and foot pain, largely relieved with combination of Tramadol, Tylenol, and Voltaren gel. Able to ambulate around the floor, occasional feeling of weakness but no falls, denies feeling of knees buckling. Denies urinary sx. Denies fever/chills. CM followign re: dispo planning, auth still pending. Review of Systems Review of Systems: Per HPI. Physical Exam Physical Exam: General: Alert and oriented. No acute distress Cardiac: Regular rate and rhythm, no murmurs appreciated Respiratory: Lungs clear to auscultation bilaterally, No increased work of breathing Abdominal: Soft, non-tender, non-distended. Bowel sounds present. Results & Data Results & Data Vital Signs (Past 12 Hours) Vital Signs Temp Pulse Pulse Resp BP BP Pulse Ox 09/15/23 11:20 36.7 C 78 20 119/73 97 09/15/23 11:05 09/15/23 07:35 36.4 C L 81 17 113/73 97 09/15/23 07:10 67 09/15/23 03:46 36.6 C 67 18 114/72 97 O2 Del Method 09/15/23 11:20 Room Air 09/15/23 11:05 Room Air 09/15/23 07:35 Room Air 09/15/23 07:10 09/15/23 03:46 Room Air Resident Activity Tracking Resident Involvement: Resident Care Provided Care Provided: Adult Hospital Medicine (2) Leukocytosis Leukocytosis type: unspecified Qualified Code(s): D72.829 - Elevated white blood cell count, unspecified (3) Fall Encounter type: initial encounter Qualified Code(s): W19.XXXA - Unspecified fall, initial encounter (9) CAD (coronary artery disease) Associated angina: unspecified whether angina present Coronary Disease- Associated Artery/Lesion type: [place] artery [place] vs. transplanted heart: [place] heart Qualified Code(s): I25.10 - Atherosclerotic heart disease of [place] coronary artery without angina pectoris
--- NOTE | 2023-09-15 16:35 | Billing Data ---
Date of Service September 15, 2023 Coding Level of Care Code 98250 SUB INP/OBS CARE
--- NOTE | 2023-09-16 05:35 | Electrocardiogram Report ---
Test Reason : Blood Pressure : / mmHG Vent. Rate : 087 BPM Atrial Rate : 087 BPM P-R Int : 164 ms QRS Dur : 074 ms QT Int : 366 ms P-R-T Axes : 050 045 064 degrees QTc Int : 440 ms Normal sinus rhythm Possible Septal infarct (cited on or before 06-SEP-2023) Abnormal ECG When compared with ECG of 06-SEP-2023 19:54, Nonspecific T wave abnormality, worse in Lateral leads Confirmed by Jose R Flores ([id number]) on 09/16/2023 5:35:19 AM Referred By: REFERRED SELF Confirmed By:Jose R Flores
[2023-09-16] MEDS: FAMOTIDINE 20 MG TAB PO PRN (06:16)
--- NOTE | 2023-09-16 07:24 | Discharge Summary ---
Date of Service September 16, 2023 Admission HPI Per Admitting Provider Yolanda is a 62-year-old female with PMH of T2DM, CAD s/p CHANTAL, NSTEMI, tobacco use, vertigo, depression, anxiety, psoriasis, and FTT. She presented on 09/05 after falling twice at home. Patient was just discharged from [facility] this morning. Upon discharge, she went to the [employer] store with her brother, and reports that she fell out of the parking lot when she was trying to get back into her brother's car. She then fell again at home while trying to stand up from the couch. Both times, the patient reports that her legs gave out on her. She denies head strike, LOC, or fainting. She ambulates with a walker at baseline. She also notes that she has been dizzy/lightheaded on her feet recently and has been feeling off balance. Patient reports that she has been having pain in her right leg since the fall specifically her right knee and a dorsal aspect of her right foot, but notes that it was swollen prior to the fall. She endorses generalized pain in her legs bilaterally, which she describes to constant pain; 10/10 at worst. She did not take any pain medicine prior to coming to the hospital. The only medication she took outside of the hospital was metformin; she reports that she took all other medications prior to leaving hospital. Patient is mildly tachycardic around 107 bpm at time of admission; vitals otherwise stable. ED course: ROS: Patient endorses fatigue, feeling off balance, dizziness, lightheadedness, nausea, dry cough (new, started yesterday), and lower extremity pain/weakness bilaterally. Patient denies fever, chills, sweating, headache, changes in vision, chest pain, pleuritic CP, SOB, hemoptysis, abdominal pain, vomiting, changes in urinary or bowel habits, burning with urination, dysuria, blood in urine or stool. Please see Dr. Gaytan's attestation for any changes to treatment plan. Admission Exam Per Admitting Provider General: no acute distress; non-toxic appearing; well-nourished; cooperative; SpO2 94% on RA HEENT: normocephalic, atraumatic; no scleral icterus; PERRLA w/ EOMs intact; vision and hearing grossly intact; both ears are full of cerumen and difficult to visualize the TM bilaterally Neck: supple; no lymphadenopathy; trachea midline Skin: Superficial abrasions on the left knee; bruise on the dorsal aspect of the right foot; warm, dry without signs of tenting; no cyanosis CV: chest wall NTP; RR, tachycardic around 105 bpm; S1/S2 normal; no murmurs/rubs/gallops; pulses intact and symmetric at radial, DP, and PT Lungs: no acute respiratory distress; symmetrical chest wall expansion; clear breath sounds across all lung bradley w/o adventitious sounds; no wheezing ABD: Soft, NTP; BS present; no rebound/guarding; no distention MSK: no tics or fasciculations; +1 pitting edema noted in the LEs b/l, nonerythematous Neuro: A&Ox3; normal mood and affect; fluent speech; no focal deficits; sensation grossly intact in the LEs b/l Principal Diagnosis Fall, weakness Discharge Exam General: Alert and oriented. No acute distress Cardiac: Regular rate and rhythm, no murmurs appreciated Respiratory: Lungs clear to auscultation bilaterally, No increased work of breathing Abdominal: Soft, non-tender, non-distended. Bowel sounds present. Discharge Data Allergies Allergy/AdvReac Type Severity Reaction Status Date / Time dulaglutide [From Trulicity] AdvReac Intermediate stomach Verified 09/06/23 20:51 pain albiglutide [From Tanzeum] AdvReac Unknown CAN'T Verified 09/06/23 20:51 REMEMBER Consultations 09/06/23 21:16 ED Decision to Admit Stat Hospital Course (1) Hyperkalemia: (2) Leukocytosis: (3) Fall: (4) Hyponatremia: (5) Tobacco use: (6) Falls: (7) Knee pain: (8) Hypomagnesemia: (9) CAD (coronary artery disease): (10) SAMRA (acute kidney injury): (11) Acute dehydration: (12) Chronic constipation: Plan Pt is a 62 yo female with a PMH of T2DM w/ neuropathy, HTN, CAD s/p CHANTAL to LAD, chronic constipation, tobacco use disorder, tremor, vertigo, dysphagia, depression w/ anxiety, psoriasis, and failure to thrive in adult a/w protein calorie malnutrition who presented the hospital recently for chest discomfort and hypokalemia, stayed for abdominal discomfort secondary to significant constipation who was discharged 09/05 and re-presented to the hospital on 09/05 for ground level falls due to weakness and failure to thrive. Falls Failure to thrive in adult - ground level falls x 2 after hospital discharge on 09/05 while out with her brother - Patient lives with a walker at baseline - Patient reported that her legs gave out on both occasions; no head strike; no LOC, no presyncopal symptoms - Right/left knee x-rays; mild degenerative changes, small R knee effusion, no fractures - PT/OT: placement recommended - discharged to [facility] Hyponatremia, mild - Resolved: - Likely secondary to Tramadol, possibly mildly depressed due to mild hyperglycemia - Pt asymptomatic, clinically stable SAMRA - Resolved: - Mild; BUN 15, creatinine 1.4 (baseline 1.1) on admission Leukocytosis - Resolved: - Leukocytosis at 20 on arrival with a neutrophilic predominance, has since normalized - Urine culture positive for E. coli, asymptomatic at this time so will will not treat - CXR neg - Biofire ordered; neg Type 2 DM, uncontrolled - Last A1c at 12.0% on 08/27/2023 - Home metformin, glimepiride resumed - Metformin dose increased (1000mg QAM + 500mg QPM) Tobacco use - Current everyday tobacco cigarette smoker - Continue to encourage cessation Electrolyte abnormalities -Resolved CAD (coronary artery disease) - S/p CHANTAL - Continue aspirin and Brilinta Total Time Total Time Spent Total Time Spent (In Minutes): <30 Discharge Plan Discharge Items Patient Disposition: Transfer [facility] Fac Reason For Visit: FALLS X 2 Discharge Diagnosis: Weakness, Falls Activity: As commented below Activity Comment: activity progression as tolerated and as directec by therapy Non-emergency contact: Primary Care Provider Call non-emergency contact if: your symptoms worsen, your pain is not controlled and you have a fever Follow-up/Referrals: Jc Zaman, [Primary Care Provider] - Diet: Carb Consistent or DM2 Addtl Attending Provider Instructions: Pt is a 62 yo female with a PMH of T2DM w/ neuropathy, HTN, CAD s/p CHANTAL to LAD, chronic constipation, tobacco use disorder, tremor, vertigo, dysphagia, depression w/ anxiety, psoriasis, and failure to thrive in adult a/w protein calorie malnutrition who presented the hospital recently for chest discomfort and hypokalemia, stayed for abdominal discomfort secondary to significant constipation who was discharged 09/05 and re-presented to the hospital on 09/05 for ground level falls due to weakness and failure to thrive. Falls Failure to thrive in adult - ground level falls x 2 after hospital discharge on 09/05 while out with her brother - Patient lives with a walker at baseline - Patient reports that her legs gave out on both occasions; no head strike; no LOC, no presyncopal symptoms - Right/left knee x-rays; mild degenerative changes, small R knee effusion, no fractures - Pain control with Tylenol, Voltaren gel, q6h prn Tramadol Hyponatremia, Mild: - Na 130, likely secondary to Tramadol initiation, possibly mildly depressed due to mild hyperglycemia - Pt asymptomatic, clinically stable SAMRA - Resolved: - Mild; BUN 15, creatinine 1.4 (baseline 1.1) on admission - AM Cr 1.02 Leukocytosis - Resolved: - Leukocytosis at 20 on arrival with a neutrophilic predominance - Urine culture positive for E. coli, asymptomatic therefore tx deferred - CXR neg - Biofire neg - Procalcitonin; 0.05 - pt afebrile, VSS Type 2 DM, uncontrolled - Last A1c at 12.0% on 08/27/2023 - Home metformin, glimepiride resumed - Metformin dose increased to 1000mg QAM + 500mg QPM Tobacco use - Current everyday tobacco cigarette smoker - Continue to encourage cessation Electrolyte abnormalities - Resolved CAD (coronary artery disease) - S/p CHANTAL - Continue aspirin and Brilinta Pending Studies at Discharge: No Stand-Alone Forms: My [facility] Skilled Items Patient informed of condition?: Yes DNR: No Discharge Level of Care: Skilled Communicable Disease: No Discharge Prognosis: Stable Lines: None Urinary Catheter: No Medications and DC Order Prescriptions: Continued folic acid 1 mg tablet 1 mg PO QAM Qty: 90 3RF bupropion HCl 150 mg tablet extended release 24 hr 150 mg PO QAM 90 Days Qty: 90 3RF Brilinta 90 mg tablet 90 mg PO BID Qty: 60 3RF (DME) pen needle, diabetic [BD Ultra-Fine Cary Pen Needle] 32 gauge x 5/32" needle See Dose Instructions .ROUTE .MEDSUPPLY Qty: 200 11RF Dose Instruction: As directed Rx Instructions: use 2 times daily or as directed by physician to monitor blood sugar (DME) blood-glucose meter [[employer] Autocode Meter] Kit See Rx Instructions .Route Rx Instructions: As directed aspirin 81 mg Tablet,Delayed Release (Dr/Ec) 81 mg PO QAM Qty: 30 0RF Rx Instructions: Over the counter pantoprazole 40 mg tablet,delayed release (DR/EC) 40 mg PO QAM Rx Instructions: TAKE ONE TABLET BY MOUTH ONCE DAILY acetaminophen [Pharbetol] 500 mg Tablet 1,000 mg PO Q8H PRN (Reason: Pain) atorvastatin 80 mg tablet 80 mg PO HS spironolactone 25 mg tablet 12.5 mg PO QAM diclofenac sodium [Voltaren Arthritis Pain] 1 % gel 2 g EXT QID PRN (Reason: Pain) levothyroxine 88 mcg tablet 88 mcg PO DAILYBB metformin 500 mg Tablet 1,000 mg PO BIDM Qty: 60 0RF glimepiride 2 mg Tablet 4 mg PO QAM Qty: 30 0RF gabapentin 300 mg Capsule 600 mg PO BID Qty: 60 0RF escitalopram oxalate 20 mg Tablet 20 mg PO QAM Qty: 30 0RF polyethylene glycol 3350 [Miralax] 17 gram powder in packet 34 g PO DAILY Qty: 0 0RF Discharge Orders: Discharge Order (Routine); Ordered 09/16/23 Ordered By: Sanchez Cedillo Admission Data Admit Date/Time: 09/06/23 22:00 Attending Provider: Harry Hinojosa Admit Provider: Laurent Gaytan Primary Care Provider: Jc Zaman Other Providers: Harry Hinojosa; [facility]; [place]; [facility]; Laurent Gaytan Other Interventions: Discharge Summary Assessment (RN) Last Done: 09/16/23 09:56 Supervising Physician Co-Signing Physician Notes I personally examined the patient and verified all real points of history and exam, discussed case, and agree with decision making with Dr Cedillo for SNF today. no new complaints. Fall -reported feeling weak in her legs. WBC on admission 20k - likely from poor PO intake or reactive - resolved. -for SNF today -voltaren gel, tramadol for knee pain SAMRA - Resolved with IV hydration (was probably bowel prep > PO intake). follow BMP periodically Hyponatremia- associated with hyperglycemia. continue with blood sugar control. Hyperglycemia due to diabetes mellitus- resumed metformin and glimepiride. - seems a little less afraid of euglycemia than last week stable for centre care Resident Activity Tracking Resident Involvement: Resident Care Provided Care Provided: Adult Hospital Medicine
--- NOTE | 2023-09-16 19:11 | Billing Data ---
Date of Service September 16, 2023 Coding Level of Care Code 55701 IN/OBS DISCH 30 MIN/LESS
--- NOTE | 2023-09-18 09:10 | Coding Query ---
CODING QUERY To promote full compliance with coding requirements relating to patient care, provider participation is requested in all cases of railroad carman uncertainty. Please assist us with the question(s) below: Coding Question(s): Pt adm with repeat falls , weakness ,mild SAMRA, Failure to thrive & protein calorie malnutrition. Please document, if known or suspected, the etiology of patient's weakness. Thanks for your help! Timur Sears [facility] Physician's Response(s): Principal Diagnosis: "that condition established after study, to be chiefly responsible for occasioning the admission of the patient to the hospital for care." Co-Existing Principal Diagnosis: "when two or more diagnoses equally meet the criteria for principal diagnosis as determined by the circumstances of admission, diagnostic work up, and/or therapy provided, and the Alphabetic Index, Tabular List, or another coding guideline does not provide sequencing direction, any one of the diagnoses may be sequenced first." "When the physician has documented what appears to be a current diagnosis in the body of the record, but has not included the diagnosis in the final diagnostic statement, the physician should be asked whether the diagnosis should be added." (Source Coding Clinic 2 QTR90. p3-4) FLORIAN
== END 2023-09-16 14:09 | DRG 683 ==
LOC: ED 19:48 → 2N 22:00 → SUATTDRO 22:00 → 2N 23:13

== ENCOUNTER 2023-10-04 10:56 | Inpatient (IN) ==
[2023-10-04 11:25] LABS: Basophils # (auto) 0.04 K/uL (0.00-0.20); Basophils % (auto) 0.3 %; Eosinophils # (auto) 0.14 K/uL (0.00-0.50); Hematocrit (blood only) 33.2 % (37.0-47.0); Hemoglobin 11.7 g/dl (12.0-16.0); Immature Granulocytes # (auto) 0.11 K/uL (0.01-0.20); Immature Granulocytes % (auto) 0.8 %; Lymphocytes # (auto) 1.69 K/uL (1.20-3.40); Mean Corpuscular Hemoglobin 27.5 pg (25.0-34.0); Mean Corpuscular Hgb Conc 35.2 g/dL (32.0-36.0); Mean Corpuscular Volume 78.1 fL (80.0-100.0); Mean Platelet Volume 9.8 fL (9.4-12.4); Monocytes # (auto) 0.95 K/uL (0.11-0.59); Monocytes % (auto) 6.7 %; Neutrophils # (auto) 11.17 K/uL (1.40-6.50); Neutrophils % (auto) 79.2 %; Platelet Count 323 K/uL (130-400); RDW Coefficient of Variation 13.6 % (11.5-14.5); RDW Standard Deviation 39.1 fL (36.4-46.3); Red Blood Count 4.25 M/uL (4.20-5.40)
[2023-10-04] MEDS: ONDANSETRON INJ 2 MG/ML 2 ML VIAL IV STA (11:40)
[2023-10-04 11:41] LABS: Albumin Globulin Ratio 1.3 (0.9-2); Albumin Level 3.9 gm/dl (3.4-5.0); Bilirubin,Total 0.6 mg/dl (0.2-1.0); Calcium 6.8 mg/dl (8.6-10.3); Creatinine Clr Calc Pharmacy 34.6 ml/min; Est GFR (Non-African American) 34.5 ml/min; Potassium 4.1 mmol/L (3.5-5.1); Total Protein 6.9 gm/dl (6.0-8.3)
--- NOTE | 2023-10-04 11:45 | XRay Report ---
SINGLE VIEW CHEST CLINICAL HISTORY: Nausea FINDINGS: An AP, portable, upright chest radiograph is compared to study dated 09/06/2023. The cardiom ediastinal silhouette is unremarkable. There is mild bibasilar scarring/atelectasis. The lungs and pl eural spaces are clear. No pneumothorax is seen. The skeletal structures are osteopenic. The bony tho rax is grossly intact. IMPRESSION: No active disease in the chest. ACT 112: Negative or not required by law. Electronically signed by: Lalito Cisse M.D. 10/04/2023 11:43 AM
--- NOTE | 2023-10-04 11:46 | Emergency Department Note ---
Impression & Plan Nausea vomiting and diarrhea, SAMRA (acute kidney injury), Acute hyponatremia, Hypomagnesemia, UTI (urinary tract infection) ED Provider Note NAME: ELIAN SORENSEN AGE: 63 SEX: F : 1960 ARRIVES VIA: Ambulance INFORMANT: Patient, ED PROVIDER(S): King Amin DO CHIEF COMPLAINT: Abdominal pain HPI: The patient is a 63-year-old female who presented to the emergency department for an evaluation of nausea and abdominal pain. The patient states that she has had similar episodes multiple times. She was in our facility last month for similar complaints. At that time she had a complete workup including a CT of the abdomen pelvis. No definite cause for symptoms could be found. The patient presents back to the emergency department today because of 2 days of worsening symptoms. She denies having any hematemesis or GI bleeding. She denies having any chest pain or difficulty with leg swelling. She has had significant amounts of diarrhea. She denies having any rectal bleeding. ROS: See above HPI for pertinent positives & negatives. A total of 10 systems reviewed and were otherwise negative. PAST MEDICAL HISTORY: See Below PAST SURGICAL HISTORY: See Below FAMILY HISTORY: See Below SOCIAL HISTORY: See Below HOME MEDICATIONS: See Below ALLERGIES: See Below VITALS: See Below PHYSICAL EXAMINATION: GENERAL: Patient is awake alert in no acute distress patient is resting comfortably and showing no signs of anxiety EYES: The conjunctivae are clear. The pupils are round and reactive. EARS, NOSE, MOUTH AND THROAT: The nose is without any evidence of any deformity. NECK: The neck is nontender and supple. RESPIRATORY: Normal respiratory effort is noted there is no evidence of wheezing rhonchi or rales CARDIOVASCULAR: Regular rate and rhythm noted there no murmurs rubs or gallops normal S1 normal S2. GASTROINTESTINAL: The abdomen was soft and nondistended. There is diffuse tenderness to palpation but no guarding or rigidity. MUSCULOSKELETAL/EXTREMITIES: There is no evidence of gross deformity full range of motion is noted in the hips and shoulders. SKIN: There is no obvious evidence of any rash. There are no petechiae, pallor or cyanosis noted. NEUROLOGIC: Patient is awake alert and oriented x3 strength is symmetric patellar reflexes are 2+ bilaterally MEDICAL DECISION MAKING: The patient is a 63-year-old female who presented to the emergency department for an evaluation of nausea vomiting and diarrhea. The patient did have abdominal pain but abdominal exam was not consistent with acute surgical abdomen. I discussed the patient's laboratory and radiographic studies with her. She was found to have an elevated white blood cell count as well as multiple electrolyte abnormalities. Because of her elevated white blood cell count I did repeat her CAT scan. She was treated with IV fluids. Because of her findings I discussed her condition with the on-call [facility] hospitalist. They have agreed to evaluate the patient in the emergency department for further management and disposition. Triage Nursing notes reviewed. Prior medical records reviewed Vital Signs: reviewed and remarkable for no significant abnormalities Differential diagnosis: Gastroenteritis, food borne illness, infections, appendicitis, diverticulitis, inflammatory bowel disease, obstruction, GI bleed, biliary pathology, volvulus, as well as other pathologies. ER treatment provided: See below Diagnostics interpreted by me: ECG: EKG was obtained in the emergency department. My interpretation is normal sinus rhythm at 89 bpm. There is no ectopy. There is no acute ST segment abnormalities noted. This was compared to a tracing from September 12, 2023. No changes were noted. Cardiac Monitoring: An order was placed for continuous cardiac monitoring. The monitor shows a rate of 73 bpm with sinus rhythm. Laboratory studies: As stated above and show below. Imaging studies: See below. Radiographic imaging was reviewed by myself Consultation(s): I discussed this case with Dr. Ibanez who is [facility]. Past Med/Surg History Problem List (Updated 10/04/23 @ 13:43 by Omid Torres PA-C) Acute hyponatremia (Acute) SAMRA (acute kidney injury) (Acute) Nausea vomiting and diarrhea (Acute) Hyperkalemia (Acute) Leukocytosis (Acute) Weakness (Acute) Fall (Acute) Hyponatremia (Acute) Tobacco use Hyperkalemia Falls Knee pain (Acute) Diarrhea (Acute) Prolonged QT interval (Acute) Acute hypokalemia (Acute) Hypomagnesemia (Acute) Chest pain (Acute) Intractable nausea and vomiting (Acute) Hyperglycemia due to type 2 diabetes mellitus (Acute) Hypomagnesemia (Acute) Respiratory syncytial virus infection (Acute) Hypertension CAD (coronary artery disease) No remaining occlusive disease after 2 LAD drug eluting stents 10/22/20. Follows with Dr. Harris RSV (respiratory syncytial virus infection) SAMRA (acute kidney injury) Constipation Acute dehydration (Acute) Nausea & vomiting (Acute) Acute hypokalemia (Acute) Hyperglycemia (Acute) Hypomagnesemia (Acute) Chest pain (Acute) Chronic constipation Nausea (Acute) Abdominal pain, epigastric (Acute) Vitamin D deficiency Diabetes mellitus type 2 in obese Elevated creatine kinase Fall Elevated troponin Shock Fall (Acute) Hypocalcemia (Acute) Ventricular tachycardia (Acute) Respiratory arrest before cardiac arrest (Acute) Hypokalemia (Acute) Hypomagnesemia (Acute) Acute non-ST elevation myocardial infarction (NSTEMI) (Acute) Cigarette smoker Hyperglycemia due to type 2 diabetes mellitus UTI (urinary tract infection) (Acute) Tremor (Chronic) Hypomagnesemia (Acute) Hypokalemia (Acute) Dyspnea (Acute) Noncompliance (Chronic) Non compliance with medical treatment (Chronic) Delusional disorder Diarrhea (Chronic) Severe protein-calorie malnutrition Vertigo Hypomagnesemia Hypokalemia Dysphagia Early satiety Depression Anxiety (Chronic) Vitamin B12 deficiency Serum gamma globulin increased Psoriasis Obesity Low back pain Drug-induced tremor Arthralgia of multiple sites Tobacco abuse (Chronic) Diabetes type 2, uncontrolled IDDM Postmenopausal bleeding Thickened endometrium Mass of soft tissue Cervical mass Acute non-ST elevation myocardial infarction (NSTEMI) (Acute) Status post insertion of drug-eluting stent into left anterior descending (LAD) artery Chronic vulvitis S/P coronary artery stent placement (Chronic) 2 CHANTAL to LAD 10/22/2020 Thoracic spine pain Right upper quadrant abdominal pain (Acute) Diabetic nephropathy associated with type 2 diabetes mellitus Albuminuria Acute hyperglycemia (Acute) Fatigue Back pain Failure to thrive in adult Left upper quadrant pain Medical History (Updated 10/04/23 @ 13:43 by Omid Torres PA-C) Hypothyroidism Diabetes mellitus GERD (gastroesophageal reflux disease) Acute on chronic combined systolic and diastolic CHF (congestive heart failure) Bradycardia with 41-50 beats per minute Accelerated hypertension Depression Osteoarthritis Chronic headaches NSTEMI (non-ST elevated myocardial infarction) 10/22/2020 s/p 2 CHANTAL Vulvitis Dyslipidemia Surgical History History of cardiac catheterization 10/22/2020 Dominant: Right Left Main (% Stenosis): Normal LAD (% Stenosis): Proximal (99) and Mid (75) Circumflex (% Stenosis): Normal (luminal irregularities) RCA (% Stenosis): Normal (Luminal irregularities) 2 CHANTAL to LAD History of cholecystectomy History of dental surgery History of tonsillectomy Family History Unknown Diabetes Thyroid disorder Father Diabetes Other No family history of adverse response to anesthesia Denies family history of Ovarian cancer Prostate cancer Breast cancer Colorectal cancer Uterine cancer Social History Smoking Status: Never smoker Tobacco Type: Cigarettes packs per day: 0.5; Cigarettes Per Day: 5/ day; Second Hand Exposure: No; Do You Dip or Chew Tobacco: No; Hx Alcohol Use: No Hx Substance Use: No Preferred Language: Irish Communication Ability: Effective Visual Impairment: No Limitations Label Stamper Required: No Beliefs That Will Affect Care: None marital status: Single Current Living Situation: Alone Current Living Situation Comment: lives in trailer current occupational status: disabled How many Children do You have: 0 Feels Safe at Home: Yes Safety Concerns Comment: Gets nervous sometimes because she lives alone, gets shaky from anxiety Diet: regular caffeine: Yes Dental Care, Regularly: No Physical Activity Frequency: Does not Exercise Seatbelt Use: always Sunscreen Use: No Assistive Devices: Walker Allergies Allergies Allergy/AdvReac Type Severity Reaction Status Date / Time dulaglutide [From Trulicity] AdvReac Intermediate stomach Verified 09/06/23 20:51 pain albiglutide [From Tanzeum] AdvReac Unknown CAN'T Verified 09/06/23 20:51 REMEMBER Home Meds Home Medications Medication Instructions Recorded Confirmed blood-glucose meter ([employer] 10/15/21 08/26/23 Autocode Meter kit) pantoprazole 40 mg tablet,delayed 40 mg PO QAM 12/19/22 10/04/23 release acetaminophen 500 mg tablet 1,000 mg PO Q8H PRN Pain 01/23/23 10/04/23 (Pharbetol) atorvastatin 80 mg tablet 80 mg PO HS 01/23/23 10/04/23 spironolactone 25 mg tablet 12.5 mg PO QAM 01/23/23 10/04/23 diclofenac sodium 1 % topical gel 2 g EXT QID PRN Pain 02/28/23 10/04/23 (Voltaren Arthritis Pain) levothyroxine 88 mcg tablet 88 mcg PO DAILYBB 02/28/23 10/04/23 famotidine 20 mg tablet 20 mg PO DIRECTED PRN Acid 10/04/23 10/04/23 Reflux gabapentin 100 mg capsule 200 mg PO BID 10/04/23 10/04/23 glimepiride 2 mg tablet 4 mg PO UD 10/04/23 10/04/23 tramadol 50 mg tablet 50 mg PO Q6H PRN Pain 10/04/23 10/04/23 Previous Rx's Medication Instructions Recorded aspirin 81 mg tablet,delayed 81 mg PO QAM #30 tabs 10/29/22 release folic acid 1 mg tablet 1 mg PO QAM #90 tabs 04/07/23 bupropion HCl 150 mg 24 hr tablet, 150 mg PO QAM 90 days #90 tabs 05/05/23 extended release ticagrelor 90 mg tablet (Brilinta) 90 mg PO BID #60 tabs 08/11/23 pen needle, diabetic 32 gauge x #200 ea 08/22/23 532" (BD Ultra-Fine Cary Pen Needle) escitalopram oxalate 20 mg tablet 20 mg PO QAM #30 tabs 09/06/23 metformin 500 mg tablet 1,000 mg (2 x 500 mg) PO BIDM #60 09/06/23 tabs polyethylene glycol 3350 17 gram 34 g PO DAILY Constipation #0 ea 09/06/23 oral powder packet (Miralax) Results & Data (ED) Vital Signs Vital Signs - 24 hr 10/04/23 11:00 10/04/23 11:00 10/04/23 11:00 Temperature Temperature Source Pulse Rate Pulse Rate [Finger] 86 Pulse Rate from SpO2 Sensor 86 Pulse Rhythm Pulse Strength Respiratory Rate 18 Respiratory Effort / Characteristics Non-Labored Respiratory Depth Normal Respiratory Pattern Regular Blood Pressure 106/76 Blood Pressure [Left Arm] 106/76 Blood Pressure Mean 86 Blood Pressure Mean [Left Arm] 86 Blood Pressure Position Pulse Oximetry 99 98 Oxygen Delivery Method Room Air Sepsis Recent Fever Within 48 Hours Sepsis New/Unexplained Change in Mental Status Sepsis Action Taken by Nursing 10/04/23 11:02 10/04/23 11:07 10/04/23 11:07 Temperature 36.9 C Temperature Source Oral Pulse Rate 86 Pulse Rate [Finger] Pulse Rate from SpO2 Sensor Pulse Rhythm Regular Pulse Strength Normal Respiratory Rate 20 Respiratory Effort / Characteristics Non-Labored Non-Labored Respiratory Depth Normal Normal Respiratory Pattern Regular Regular Blood Pressure 106/76 Blood Pressure [Left Arm] Blood Pressure Mean 86 Blood Pressure Mean [Left Arm] Blood Pressure Position Lying Pulse Oximetry 98 Oxygen Delivery Method Room Air Room Air Room Air Sepsis Recent Fever Within 48 Hours No Sepsis New/Unexplained Change in Mental Status N/A Sepsis Action Taken by Nursing No Action Required 10/04/23 11:16 10/04/23 11:30 10/04/23 11:31 Temperature Temperature Source Pulse Rate Pulse Rate [Finger] Pulse Rate from SpO2 Sensor 89 Pulse Rhythm Pulse Strength Respiratory Rate Respiratory Effort / Characteristics Respiratory Depth Respiratory Pattern Blood Pressure 110/72 Blood Pressure [Left Arm] Blood Pressure Mean 78 Blood Pressure Mean [Left Arm] Blood Pressure Position Pulse Oximetry 97 99 Oxygen Delivery Method Room Air Sepsis Recent Fever Within 48 Hours Sepsis New/Unexplained Change in Mental Status Sepsis Action Taken by Nursing 10/04/23 11:33 10/04/23 11:40 10/04/23 11:54 Temperature Temperature Source Pulse Rate 80 78 Pulse Rate [Finger] Pulse Rate from SpO2 Sensor 78 78 Pulse Rhythm Pulse Strength Respiratory Rate 15 Respiratory Effort / Characteristics Respiratory Depth Respiratory Pattern Blood Pressure Blood Pressure [Left Arm] Blood Pressure Mean Blood Pressure Mean [Left Arm] Blood Pressure Position Pulse Oximetry 99 100 Oxygen Delivery Method Sepsis Recent Fever Within 48 Hours Sepsis New/Unexplained Change in Mental Status Sepsis Action Taken by Nursing 10/04/23 12:00 10/04/23 12:03 10/04/23 12:39 Temperature Temperature Source Pulse Rate 78 77 Pulse Rate [Finger] Pulse Rate from SpO2 Sensor 78 77 Pulse Rhythm Pulse Strength Respiratory Rate 20 13 Respiratory Effort / Characteristics Respiratory Depth Respiratory Pattern Blood Pressure 114/60 Blood Pressure [Left Arm] Blood Pressure Mean 86 Blood Pressure Mean [Left Arm] Blood Pressure Position Pulse Oximetry 99 99 Oxygen Delivery Method Sepsis Recent Fever Within 48 Hours Sepsis New/Unexplained Change in Mental Status Sepsis Action Taken by Nursing 10/04/23 12:49 10/04/23 12:49 10/04/23 12:54 Temperature Temperature Source Pulse Rate 75 Pulse Rate [Finger] Pulse Rate from SpO2 Sensor 75 Pulse Rhythm Pulse Strength Respiratory Rate 16 Respiratory Effort / Characteristics Respiratory Depth Respiratory Pattern Blood Pressure 117/72 117/72 Blood Pressure [Left Arm] Blood Pressure Mean 86 86 Blood Pressure Mean [Left Arm] Blood Pressure Position Pulse Oximetry 100 Oxygen Delivery Method Sepsis Recent Fever Within 48 Hours Sepsis New/Unexplained Change in Mental Status Sepsis Action Taken by Nursing 10/04/23 13:00 10/04/23 13:00 10/04/23 13:00 Temperature Temperature Source Pulse Rate Pulse Rate [Finger] Pulse Rate from SpO2 Sensor Pulse Rhythm Pulse Strength Respiratory Rate Respiratory Effort / Characteristics Respiratory Depth Respiratory Pattern Blood Pressure 123/75 123/75 123/75 Blood Pressure [Left Arm] Blood Pressure Mean 94 94 94 Blood Pressure Mean [Left Arm] Blood Pressure Position Pulse Oximetry Oxygen Delivery Method Sepsis Recent Fever Within 48 Hours Sepsis New/Unexplained Change in Mental Status Sepsis Action Taken by Nursing 10/04/23 13:09 10/04/23 13:30 10/04/23 13:30 Temperature Temperature Source Pulse Rate 80 Pulse Rate [Finger] Pulse Rate from SpO2 Sensor 78 Pulse Rhythm Pulse Strength Respiratory Rate 19 Respiratory Effort / Characteristics Respiratory Depth Respiratory Pattern Blood Pressure 109/71 109/71 Blood Pressure [Left Arm] Blood Pressure Mean 82 82 Blood Pressure Mean [Left Arm] Blood Pressure Position Pulse Oximetry 100 Oxygen Delivery Method Sepsis Recent Fever Within 48 Hours Sepsis New/Unexplained Change in Mental Status Sepsis Action Taken by Nursing 10/04/23 13:30 10/04/23 13:57 10/04/23 14:00 Temperature Temperature Source Pulse Rate 73 73 Pulse Rate [Finger] Pulse Rate from SpO2 Sensor 73 72 Pulse Rhythm Pulse Strength Respiratory Rate 20 20 Respiratory Effort / Characteristics Respiratory Depth Respiratory Pattern Blood Pressure 119/71 Blood Pressure [Left Arm] Blood Pressure Mean 98 Blood Pressure Mean [Left Arm] Blood Pressure Position Pulse Oximetry 99 98 Oxygen Delivery Method Sepsis Recent Fever Within 48 Hours Sepsis New/Unexplained Change in Mental Status Sepsis Action Taken by [facility] Medications Current Medication List: was personally reviewed by me Laboratory Data Attestation: I reviewed the patient's lab results. 10/04/23 11:10 10/04/23 14:11 Lab Results 10/04/23 10/04/23 10/04/23 Range/Units 11:10 11:45 13:13 WBC 14.10 H (4.8-10.8) K/ul RBC 4.25 (4.20-5.40) M/uL Hgb 11.7 L (12.0-16.0) g/dl Hct 33.2 L (37.0-47.0) % MCV 78.1 L (80.0-100.0) fL MCH 27.5 (25.0-34.0) pg MCHC 35.2 (32.0-36.0) g/dL RDW Std Deviation 39.1 (36.4-46.3) fL RDW Coeff of Umair 13.6 (11.5-14.5) % Plt Count 323 (130-400) K/uL MPV 9.8 (9.4-12.4) fL Immature Gran % (Auto) 0.8 % Neut % (Auto) 79.2 % Lymph % (Auto) 12.0 % Emanuel % (Auto) 6.7 % Eos % (Auto) 1.0 % Baso % (Auto) 0.3 % Neut # (Auto) 11.17 H (1.40-6.50) K/uL Lymph # (Auto) 1.69 (1.20-3.40) K/uL Emanuel # (Auto) 0.95 H (0.11-0.59) K/uL Eos # (Auto) 0.14 (0.00-0.50) K/uL Baso # (Auto) 0.04 (0.00-0.20) K/uL Immature Gran # (Auto) 0.11 (0.01-0.20) K/uL VBG pH (7.36-7.41) VBG pCO2 (38-50) mmHg VBG pO2 mmHg VBG HCO3 mmol/L VBG O2 Saturation % VBG Base Excess mEq/L Sodium 123 L (136-145) mmol/L Potassium 4.1 (3.5-5.1) mmol/L Chloride 87 L (98-107) mmol/L Carbon Dioxide 17 L (21-32) mmol/L Anion Gap 19 H (3-11) BUN 11 (6-23) mg/dl Creatinine 1.57 H (0.6-1.2) mg/dl Est Cr Clr Drug Dosing 34.6 ml/min Est GFR ( Amer) 40.0 ml/min Est GFR (Non-Af Amer) 34.5 ml/min BUN/Creatinine Ratio 7.0 L (10-20) Glucose 250 H (70-99(Fasting)) mg/dl Osmolality 263 L (280-300) mOsm/kg Lactate 3.9 H* (0.4-2.0) mmol/L Calcium 6.8 L (8.6-10.3) mg/dl Phosphorus 3.6 (2.5-4.9) mg/dl Magnesium 0.5 L* (1.7-2.4) mg/dl Total Bilirubin 0.6 (0.2-1.0) mg/dl AST 9 L (13-39) U/L ALT 10 (7-52) U/L Alkaline Phosphatase 115 H (34-104) U/L Troponin I High Sens 4.9 (0-14) pg/ml Total Protein 6.9 (6.0-8.3) gm/dl Albumin 3.9 (3.4-5.0) gm/dl Globulin 3.0 (2.5-4.0) gm/dl Albumin/Globulin Ratio 1.3 (0.9-2) Lipase 8 L (11-82) U/L Urine Color Yellow Urine Appearance Cloudy A (Clear) Urine pH 5.5 (4.5-7.5) Ur Specific Liberty 1.008 (1.000-1.030) Urine Protein Negative (Negative) Urine Glucose (UA) Trace H (Negative) Urine Ketones Negative (Negative) Urine Blood Negative (Negative) Urine Nitrite Negative (Negative) Urine Bilirubin Negative (Negative) Urine Urobilinogen Negative (Negative) Ur Leukocyte Esterase 2+ H (Negative) Urine WBC (Auto) 21-50 H (0-5) /hpf Urine RBC (Auto) 0-2 (0-2) /hpf U Hyaline Cast (Auto) 3-5 H (0-2) /lpf U Epithel Cells (Auto) 3-5 H (0-2) /hpf Urine Bacteria (Auto) 4+ H (None Seen) Urine Osmolality 199 L (500-800) mOsm/kg Ur Random Sodium 48 mmol/L 10/04/23 Range/Units 14:11 WBC (4.8-10.8) K/ul RBC (4.20-5.40) M/uL Hgb (12.0-16.0) g/dl Hct (37.0-47.0) % MCV (80.0-100.0) fL MCH (25.0-34.0) pg MCHC (32.0-36.0) g/dL RDW Std Deviation (36.4-46.3) fL RDW Coeff of Umair (11.5-14.5) % Plt Count (130-400) K/uL MPV (9.4-12.4) fL Immature Gran % (Auto) % Neut % (Auto) % Lymph % (Auto) % Emanuel % (Auto) % Eos % (Auto) % Baso % (Auto) % Neut # (Auto) (1.40-6.50) K/uL Lymph # (Auto) (1.20-3.40) K/uL Emanuel # (Auto) (0.11-0.59) K/uL Eos # (Auto) (0.00-0.50) K/uL Baso # (Auto) (0.00-0.20) K/uL Immature Gran # (Auto) (0.01-0.20) K/uL VBG pH 7.43 H (7.36-7.41) VBG pCO2 33 L (38-50) mmHg VBG pO2 29 mmHg VBG HCO3 22 mmol/L VBG O2 Saturation < 60.0 % VBG Base Excess -1.9 mEq/L Sodium 124 L (136-145) mmol/L Potassium 3.5 (3.5-5.1) mmol/L Chloride 91 L (98-107) mmol/L Carbon Dioxide 20 L (21-32) mmol/L Anion Gap 13 H (3-11) BUN 11 (6-23) mg/dl Creatinine 1.44 H (0.6-1.2) mg/dl Est Cr Clr Drug Dosing 37.7 ml/min Est GFR ( Amer) 44.4 ml/min Est GFR (Non-Af Amer) 38.3 ml/min BUN/Creatinine Ratio 7.6 L (10-20) Glucose 194 H (70-99(Fasting)) mg/dl Osmolality (280-300) mOsm/kg Lactate (0.4-2.0) mmol/L Calcium 6.2 L (8.6-10.3) mg/dl Phosphorus 3.3 (2.5-4.9) mg/dl Magnesium 1.4 L (1.7-2.4) mg/dl Total Bilirubin (0.2-1.0) mg/dl AST (13-39) U/L ALT (7-52) U/L Alkaline Phosphatase (34-104) U/L Troponin I High Sens (0-14) pg/ml Total Protein (6.0-8.3) gm/dl Albumin (3.4-5.0) gm/dl Globulin (2.5-4.0) gm/dl Albumin/Globulin Ratio (0.9-2) Lipase (11-82) U/L Urine Color Urine Appearance (Clear) Urine pH (4.5-7.5) Ur Specific Liberty (1.000-1.030) Urine Protein (Negative) Urine Glucose (UA) (Negative) Urine Ketones (Negative) Urine Blood (Negative) Urine Nitrite (Negative) Urine Bilirubin (Negative) Urine Urobilinogen (Negative) Ur Leukocyte Esterase (Negative) Urine WBC (Auto) (0-5) /hpf Urine RBC (Auto) (0-2) /hpf U Hyaline Cast (Auto) (0-2) /lpf U Epithel Cells (Auto) (0-2) /hpf Urine Bacteria (Auto) (None Seen) Urine Osmolality (500-800) mOsm/kg Ur Random Sodium mmol/L Administered Medications Magnesium Sulfate/Dextrose (Magnesium Sulfate / D5w) 1 gm in 100 mls @ 50 mls/hr IV Q2H [facility] Stop: 10/04/23 17:59 Last Admin: 10/04/23 14:09 Dose: 50 mls/hr Documented By: BRIDGETTE Lactated Ringer's (Lr) 1,000 mls @ 110 mls/hr IV .Q9H6M [facility] Stop: 10/05/23 10:40 Last Admin: 10/04/23 15:04 Dose: 110 mls/hr Documented By: BRIDGETTE Discontinued Medications Sodium Chloride (Nss) 1,000 mls @ 999 mls/hr IV .Q1H1M [facility] Stop: 10/04/23 12:56 Last Admin: 10/04/23 12:32 Dose: Not Given Documented By: BRIDGETTE Magnesium Sulfate/Dextrose (Magnesium Sulfate / D5w) 1 gm in 100 mls @ 200 mls/hr IV Q30M [facility] Stop: 10/04/23 13:37 Last Infusion: 10/04/23 14:10 Dose: Infused Documented By: Admin: 10/04/23 13:32 Dose: 200 mls/hr Documented By: Infusion: 10/04/23 13:28 Dose: Infused Documented By: Admin: 10/04/23 12:58 Dose: 200 mls/hr Documented By: BRIDGETTE Ceftriaxone Sodium (Rocephin) 2,000 mg in 50 mls @ 100 mls/hr IV NOW STA Stop: 10/04/23 13:08 Last Infusion: 10/04/23 13:15 Dose: Infused Documented By: Admin: 10/04/23 12:45 Dose: 100 mls/hr Documented By: BRIDGETTE Sodium Chloride (Nss) 1,000 mls @ 999 mls/hr IV .Q1H1M ONE Stop: 10/04/23 14:06 Last Admin: 10/04/23 13:32 Dose: 999 mls/hr Documented By: MARTA Calcium Gluconate () 1,000 mg in 60 mls @ 240 mls/hr IV NOW STA Stop: 10/04/23 13:21 Last Admin: 10/04/23 13:43 Dose: Not Given Documented By: BRIDGETTE Ondansetron HCl (Ondansetron Inj 2 Mg/Ml 2 Ml Vial) 4 mg IV NOW STA Stop: 10/04/23 11:12 Last Admin: 10/04/23 11:40 Dose: 4 mg Documented By: BRIDGETTE Imaging Data Attestation: I personally reviewed and interpreted this imaging study as follows: My Impression: 1 view chest x-ray was obtained in the emergency department. My interpretation is no free air or definite infiltrate, final report below. CT of the abdomen and pelvis was obtained in the emergency department. My interpretation is no free air or signs of bowel obstruction, final report below. Radiologist's Impression: Chest X-Ray 10/04/23 11:11 SINGLE VIEW CHEST CLINICAL HISTORY: Nausea FINDINGS: An AP, portable, upright chest radiograph is compared to study dated 09/06/2023. The cardiomediastinal silhouette is unremarkable. There is mild bibasilar scarring/atelectasis. The lungs and pleural spaces are clear. No pneumothorax is seen. The skeletal structures are osteopenic. The bony thorax is grossly intact. IMPRESSION: No active disease in the chest. ACT 112: Negative or not required by law. Electronically signed by: Lalito Cisse M.D. 10/04/2023 11:43 AM KUB X-Ray 10/04/23 11:11 KUB CLINICAL HISTORY: Nausea. FINDINGS: An AP, portable, supine abdominal radiograph was compared to study dated 08/28/2023 and correlated with abdominal CT dated 08/30/2023. Cholecystectomy clips are seen in the right upper quadrant. There is no bowel obstruction. No evidence of intraperitoneal free air is seen on this supine image. There are no abnormal abdominal calcifications. Vascular calcifications are seen in the pelvis. The skeletal structures are osteopenic and appear intact. Lumbosacral spondylosis is noted. IMPRESSION: No acute abnormality is identified. Electronically signed by: Lalito Cisse M.D. 10/04/2023 11:42 AM Abdomen/Pelvis CT 10/04/23 11:59 CT SCAN OF THE ABDOMEN AND PELVIS WITHOUT IV CONTRAST CLINICAL HISTORY: Vomiting. COMPARISON STUDY: Abdominal CT dated 08/30/2023. TECHNIQUE: CT scan of the abdomen and pelvis is performed from the lung bases to the proximal femora. Images are reviewed in the axial, sagittal, and coronal planes. IV contrast was not administered for this examination as per the referring clinician. Note that the examination was performed in suboptimal fashion without oral and IV contrast. A dose lowering technique was utilized adhering to the principles of ALARA. CT DOSE: 1168.36 mGy.cm FINDINGS: Lung bases: The heart is normal in size and without pericardial effusion. The lung bases are clear. There is a small hiatal hernia. Liver: The unenhanced liver is normal in size, contour, and attenuation. There is no intrahepatic biliary ductal dilatation. Gallbladder: Surgically absent noting clips in the gallbladder fossa. Spleen: Normal in size and attenuation. Pancreas: The unenhanced pancreas is atrophic and grossly unremarkable. Adrenal glands: Unremarkable. Kidneys: The unenhanced kidneys are normal in size and without hydronephrosis. No renal calculi are identified and no ureteral stone is seen. A 1.6 cm cyst is noted on the left. Abdominal vasculature: The abdominal aorta is normal in course and caliber noting moderate atherosclerotic calcification. Bowel: There is moderate colonic diverticulosis without CT evidence of acute diverticulitis. No bowel obstruction is identified. There is mild to moderate colonic fecal retention. The appendix is well-visualized and normal. Peritoneum: There is no intraperitoneal free air or abdominal ascites. There is a fat-containing supraumbilical hernia as seen on axial image #99. Lymphadenopathy: None. Pelvic viscera: The bladder is decompressed and grossly unremarkable. There are calcified uterine fibroids. No adnexal lesion is seen. Skeletal structures: The skeletal structures are osteopenic. There is mild lumbosacral spondylosis. Sclerotic change is noted in the sacroiliac joints and symphysis. No lytic or blastic lesions are seen. Fat necrosis is again seen overlying the right proximal femur. IMPRESSION: 1. No acute infectious or inflammatory findings are identified in the abdomen or pelvis. 2. Colonic diverticulosis without CT evidence of acute diverticulitis. 3. Additional findings as above. ACT 112: Negative or not required by law. Electronically signed by: Lalito Cisse M.D. 10/04/2023 2:14 PM Discharge Plan Visit Data Chief Complaint: Shortness of Breath/Dyspnea ED Provider: King Amin Discharge Problem: Nausea vomiting and diarrhea, SAMRA (acute kidney injury), Acute hyponatremia, Hypomagnesemia, UTI (urinary tract infection) Patient Disposition: Being Evaluated by Hospitalist Forms Stand Alone Forms: My [facility] Prescriptions Prescriptions: No Action folic acid 1 mg tablet 1 mg PO QAM Qty: 90 3RF bupropion HCl 150 mg tablet extended release 24 hr 150 mg PO QAM 90 Days Qty: 90 3RF Brilinta 90 mg tablet 90 mg PO BID Qty: 60 3RF (DME) pen needle, diabetic [BD Ultra-Fine [place] Pen Needle] 32 gauge x 5/32" needle See Dose Instructions .ROUTE .MEDSUPPLY Qty: 200 11RF Dose Instruction: As directed Rx Instructions: use 2 times daily or as directed by physician to monitor blood sugar (DME) blood-glucose meter [[employer] Autocode Meter] Kit See Rx Instructions .Route Rx Instructions: As directed aspirin 81 mg Tablet,Delayed Release (Dr/Ec) 81 mg PO QAM Qty: 30 0RF Rx Instructions: Over the counter pantoprazole 40 mg tablet,delayed release (DR/EC) 40 mg PO QAM Rx Instructions: TAKE ONE TABLET BY MOUTH ONCE DAILY acetaminophen [Pharbetol] 500 mg Tablet 1,000 mg PO Q8H PRN (Reason: Pain) atorvastatin 80 mg tablet 80 mg PO HS spironolactone 25 mg tablet 12.5 mg PO QAM diclofenac sodium [Voltaren Arthritis Pain] 1 % gel 2 g EXT QID PRN (Reason: Pain) levothyroxine 88 mcg tablet 88 mcg PO DAILYBB metformin 500 mg Tablet 1,000 mg PO BIDM Qty: 60 0RF Rx Instructions: pt isnt sure of dose. Filled 09/05 15 day supply as two tabs po bid escitalopram oxalate 20 mg Tablet 20 mg PO QAM Qty: 30 0RF polyethylene glycol 3350 [Miralax] 17 gram powder in packet 34 g PO DAILY Qty: 0 0RF tramadol 50 mg tablet 50 mg PO Q6H PRN (Reason: Pain) famotidine 20 mg tablet 20 mg PO DIRECTED PRN (Reason: Acid Reflux) gabapentin 100 mg capsule 200 mg PO BID Rx Instructions: bid glimepiride 2 mg tablet 4 mg PO UD Rx Instructions: 4 mg po qam pt isnt sure of this medication, it didnt sound familiar. Filled 09/05 for 15 day supply Referrals Referrals: Jc Zaman DO [Primary Care Provider] -
[2023-10-04 11:48] LABS: Troponin I High Sensitivity 4.9 pg/ml (0-14)
[2023-10-04 12:07] LABS: Appearance Urine Cloudy (Clear); Bacteria Urine Automated 4+ (None Seen); Bilirubin Urine Negative (Negative); Blood Urine Negative (Negative); Color Urine Yellow; Glucose Urine UA Trace (Negative); Ketones Urine Negative (Negative); Leukocyte Esterase Urine 2+ (Negative); Nitrite Urine Negative (Negative); Protein Urine Negative (Negative); RBC Urine Automated 0-2 /hpf (0-2); Specific Gravity Urine 1.008 (1.000-1.030); Urobilinogen Urine Negative (Negative); WBC Urine Automated 21-50 /hpf (0-5); pH Urine 5.5 (4.5-7.5)
--- NOTE | 2023-10-04 12:27 | History & Physical Report ---
Date of Service October 04, 2023 Assessment & Plan (1) Nausea vomiting and diarrhea: Plan: New onset lower transverse abdominal pain & N/V/D x [address] A/P ordered without acute infectious or inflammatory findings PCR stool/C. difficile ordered, pending IV antiemetics PRN Acetaminophen PRN for pain/fever A.m. CBC, CMP, mag (2) UTI (urinary tract infection): Plan: Leukocytosis at 14.10 with neutrophil predominance UA positive on arrival Most recent UCx on 09/06 grew pansensitive E. coli Rocephin 2000 mg IV Follow current UCx (3) Hypomagnesemia: Plan: Magnesium 0.5 on arrival Suspect secondary to GI losses/UTI Magnesium sulfate 1 g IV x 4 Hold Protonix Trend mag q4h (4) Hypocalcemia: Plan: Calcium 6.8 on arrival; (corrects to 6.9 with albumin 3.9) Correct hypomagnesemia and continue to trend calcium with BMPs Additional calcium gluconate to be given if refractory Vitamin D3 level ordered, pending Most recently low at 8.5 on 12/23/2022 Will plan to start on vitamin D supplementation 25mcg p.o. daily (5) Acute hyponatremia: Plan: Na 123 on arrival Suspect secondary to acute UTI Serum Osm low at 263 Urine Osm low at 199 Elevated Urine Sodium at 48, consistent with SIADH However, this could also be secondary to sodium wasting in the setting of hypomagnesemia Will trial fluids to treat SAMRA/UTI and closely monitor BMP Trend BMP q4h (6) SAMRA (acute kidney injury): Plan: BUN 11, creatinine 1.57 (baseline 1.02), EGFR 34.5 Avoid nephrotoxic agents for possible Suspect secondary to UTI and dehydration Antibiotics and fluids (as above) (7) Hyperglycemia due to type 2 diabetes mellitus: Plan: Last A1c at 12.0% on 08/27/2023 Glucose 250 on admission Hold metformin, glimepiride SSI; with target BSG range 110-140mg/dL, CF 50, carb ratio 15 T2DM diet BSG ACHS Adjust regimen as needed (8) CAD (coronary artery disease): Plan: S/p CHANTAL Continue aspirin and Brilinta (9) Cigarette smoker: Plan: Current everyday tobacco cigarette smoker Patient reports that she tried to quit smoking 3 days ago Continue to encourage cessation Plan Disposition: Admit to PCU telemetry Full code Clear liquid diet and advance as tolerated VTE PPx: Heparin 5000u SQ q12h History of Present Illness Chief Complaint: SOB/Dyspnea Primary Care Provider: Jc Zaman DO Yolanda is a 63-year-old female with PMH of CAD s/p CHANTAL, T2DM, anxiety, depression, psoriasis, vertigo, NSTEMI, recurrent falls, and FTT. She presented on 10/03 via ambulance for abdominal pain, diarrhea, nausea, and vomiting x 2 days. Patient reports that her pain came on gradually on 10/01. Her abdominal pain is located in the lower quadrants transversely across the bladder. She describes it as a constant, throbbing pain; 9/10 at present. Laying in different positions does not exacerbate the pain. She tried to eat last night, but immediately threw up afterwards. Additionally, she has been having diarrhea the past 2 days. History of gallbladder surgery; she denies any other abdominal surgeries. She did not take her regular morning medications today as she was unable to keep them down; only recent change medication is that she was started back on metformin about a month ago. Patient did fall at [facility] recently; she is on sure when exactly this happened; no head strike; no recent trauma to the head/neck/abdomen/pelvis. She does have a history of recurrent falls and reports that her knees tend to "buckle". She denies history of UTIs in the past. Patient's vitals are stable time of admission. ED course: NSS 1000 mL IV Zofran 4 mg IV ROS: Patient endorses hot and cold intolerance, dizziness, lightheadedness, headache, productive cough (clear), SOB at rest, orthopnea, lower transverse abdominal pain, nausea, vomiting, liquidy diarrhea, and suprapubic tenderness. Patient denies fever, night sweats, chest pain, chest palpitations, hemoptysis, hematemesis, blood in the stool or urine, burning with urination, increased urinary frequency, melena, new onset back pain, or numbness or tingling in the arms or legs. Allergies Allergy/AdvReac Type Severity Reaction Status Date / Time dulaglutide [From Trulicity] AdvReac Intermediate stomach Verified 09/06/23 20:51 pain albiglutide [From Tanzeum] AdvReac Unknown CAN'T Verified 09/06/23 20:51 REMEMBER Home Medications Medication Instructions Recorded Confirmed Type blood-glucose meter ([employer] 10/15/21 08/26/23 History Autocode Meter kit) aspirin 81 mg tablet,delayed 81 mg PO QAM #30 tabs 10/29/22 10/04/23 Rx release pantoprazole 40 mg tablet,delayed 40 mg PO QAM 12/19/22 10/04/23 History release acetaminophen 500 mg tablet 1,000 mg PO Q8H PRN Pain 01/23/23 10/04/23 History (Pharbetol) atorvastatin 80 mg tablet 80 mg PO HS 01/23/23 10/04/23 History spironolactone 25 mg tablet 12.5 mg PO QAM 01/23/23 10/04/23 History diclofenac sodium 1 % topical gel 2 g EXT QID PRN Pain 02/28/23 10/04/23 History (Voltaren Arthritis Pain) levothyroxine 88 mcg tablet 88 mcg PO DAILYBB 02/28/23 10/04/23 History folic acid 1 mg tablet 1 mg PO QAM #90 tabs 04/07/23 10/04/23 Rx bupropion HCl 150 mg 24 hr tablet, 150 mg PO QAM 90 days #90 tabs 05/05/23 10/04/23 Rx extended release ticagrelor 90 mg tablet (Brilinta) 90 mg PO BID #60 tabs 08/11/23 10/04/23 Rx pen needle, diabetic 32 gauge x #200 ea 08/22/23 08/26/23 Rx 5/32" (BD Ultra-Fine Cary Pen Needle) escitalopram oxalate 20 mg tablet 20 mg PO QAM #30 tabs 09/06/23 10/04/23 Rx metformin 500 mg tablet 1,000 mg (2 x 500 mg) PO BIDM #60 09/06/23 10/04/23 Rx tabs polyethylene glycol 3350 17 gram 34 g PO DAILY Constipation #0 ea 09/06/23 10/04/23 Rx oral powder packet (Miralax) famotidine 20 mg tablet 20 mg PO DIRECTED PRN Acid 10/04/23 10/04/23 History Reflux gabapentin 100 mg capsule 200 mg PO BID 10/04/23 10/04/23 History glimepiride 2 mg tablet 4 mg PO UD 10/04/23 10/04/23 History tramadol 50 mg tablet 50 mg PO Q6H PRN Pain 10/04/23 10/04/23 History Past Med/Surg History Problem List (Updated 10/04/23 @ 13:43 by Omid Torres PA-C) Acute hyponatremia (Acute) SAMRA (acute kidney injury) (Acute) Nausea vomiting and diarrhea (Acute) Hyperkalemia (Acute) Leukocytosis (Acute) Weakness (Acute) Fall (Acute) Hyponatremia (Acute) Tobacco use Hyperkalemia Falls Knee pain (Acute) Diarrhea (Acute) Prolonged QT interval (Acute) Acute hypokalemia (Acute) Hypomagnesemia (Acute) Chest pain (Acute) Intractable nausea and vomiting (Acute) Hyperglycemia due to type 2 diabetes mellitus (Acute) Hypomagnesemia (Acute) Respiratory syncytial virus infection (Acute) Hypertension CAD (coronary artery disease) No remaining occlusive disease after 2 LAD drug eluting stents 10/22/20. Follows with Dr. Harris RSV (respiratory syncytial virus infection) SAMRA (acute kidney injury) Constipation Acute dehydration (Acute) Nausea & vomiting (Acute) Acute hypokalemia (Acute) Hyperglycemia (Acute) Hypomagnesemia (Acute) Chest pain (Acute) Chronic constipation Nausea (Acute) Abdominal pain, epigastric (Acute) Vitamin D deficiency Diabetes mellitus type 2 in obese Elevated creatine kinase Fall Elevated troponin Shock Fall (Acute) Hypocalcemia (Acute) Ventricular tachycardia (Acute) Respiratory arrest before cardiac arrest (Acute) Hypokalemia (Acute) Hypomagnesemia (Acute) Acute non-ST elevation myocardial infarction (NSTEMI) (Acute) Cigarette smoker Hyperglycemia due to type 2 diabetes mellitus UTI (urinary tract infection) (Acute) Tremor (Chronic) Hypomagnesemia (Acute) Hypokalemia (Acute) Dyspnea (Acute) Noncompliance (Chronic) Non compliance with medical treatment (Chronic) Delusional disorder Diarrhea (Chronic) Severe protein-calorie malnutrition Vertigo Hypomagnesemia Hypokalemia Dysphagia Early satiety Depression Anxiety (Chronic) Vitamin B12 deficiency Serum gamma globulin increased Psoriasis Obesity Low back pain Drug-induced tremor Arthralgia of multiple sites Tobacco abuse (Chronic) Diabetes type 2, uncontrolled IDDM Postmenopausal bleeding Thickened endometrium Mass of soft tissue Cervical mass Acute non-ST elevation myocardial infarction (NSTEMI) (Acute) Status post insertion of drug-eluting stent into left anterior descending (LAD) artery Chronic vulvitis S/P coronary artery stent placement (Chronic) 2 CHANTAL to LAD 10/22/2020 Thoracic spine pain Right upper quadrant abdominal pain (Acute) Diabetic nephropathy associated with type 2 diabetes mellitus Albuminuria Acute hyperglycemia (Acute) Fatigue Back pain Failure to thrive in adult Left upper quadrant pain Medical History (Updated 10/04/23 @ 13:43 by Omid Torres PA-C) Hypothyroidism Diabetes mellitus GERD (gastroesophageal reflux disease) Acute on chronic combined systolic and diastolic CHF (congestive heart failure) Bradycardia with 41-50 beats per minute Accelerated hypertension Depression Osteoarthritis Chronic headaches NSTEMI (non-ST elevated myocardial infarction) 10/22/2020 s/p 2 CHANTAL Vulvitis Dyslipidemia Surgical History History of cardiac catheterization 10/22/2020 Dominant: Right Left Main (% Stenosis): Normal LAD (% Stenosis): Proximal (99) and Mid (75) Circumflex (% Stenosis): Normal (luminal irregularities) RCA (% Stenosis): Normal (Luminal irregularities) 2 CHANTAL to LAD History of cholecystectomy History of dental surgery History of tonsillectomy Family History Unknown Diabetes Thyroid disorder Father Diabetes Other No family history of adverse response to anesthesia Denies family history of Ovarian cancer Prostate cancer Breast cancer Colorectal cancer Uterine cancer Social History Smoking Status: Never smoker Tobacco Type: Cigarettes packs per day: 0.5; Cigarettes Per Day: 5/ day; Second Hand Exposure: No; Do You Dip or Chew Tobacco: No; Hx Alcohol Use: No Hx Substance Use: No Preferred Language: Sammarinese Communication Ability: Effective Visual Impairment: No Limitations [employer] Required: No Beliefs That Will Affect Care: None marital status: Single Current Living Situation: Alone Current Living Situation Comment: lives in trailer current occupational status: disabled How many Children do You have: 0 Feels Safe at Home: Yes Safety Concerns Comment: Gets nervous sometimes because she lives alone, gets shaky from anxiety Diet: regular caffeine: Yes Dental Care, Regularly: No Physical Activity Frequency: Does not Exercise Seatbelt Use: always Sunscreen Use: No Assistive Devices: Walker Review of Systems Review of Systems: See HPI above Physical Exam Physical Exam: General: no acute distress; anxious; lethargic; non-toxic appearing; cooperative; SpO2 99% on RA HEENT: normocephalic, atraumatic; no scleral icterus; PERRLA; vision and hearing grossly intact Neck: supple; no lymphadenopathy; trachea midline Skin: warm, dry without signs of tenting; no cyanosis; no rashes, bruising, lesions, or erythema noted CV: chest wall NTP; RRR; S1/S2 normal; no murmurs/rubs/gallops; pulses intact and symmetric at radial, DP, and PT Lungs: no acute respiratory distress; symmetrical chest wall expansion; clear breath sounds across all lung bradley w/o adventitious sounds; no wheezing ABD: Abdomen is mildly TTP in all 4 quadrants, but specifically TTP in the suprapubic region; BS present; no rebound/guarding; moderate distention secondary to body habitus; purple bruising on the left lower quadrant Back: Positive CVA tenderness bilaterally MSK: no tics or fasciculations; no edema noted in the LEs b/l, nonerythematous Neuro: A&Ox3; normal mood and affect; fluent speech; no focal deficits; sensation grossly intact in the LEs b/l Results & Data Results & Data Vital Signs (Past 12 Hours) Vital Signs Temp Pulse Pulse Resp BP BP Pulse Ox 10/04/23 11:40 80 10/04/23 11:31 110/72 10/04/23 11:30 99 10/04/23 11:16 97 10/04/23 11:07 10/04/23 11:07 10/04/23 11:02 36.9 C 86 20 106/76 98 10/04/23 11:00 86 18 106/76 98 10/04/23 11:00 106/76 10/04/23 11:00 99 O2 Del Method 10/04/23 11:40 10/04/23 11:31 10/04/23 11:30 10/04/23 11:16 Room Air 10/04/23 11:07 Room Air 10/04/23 11:07 Room Air 10/04/23 11:02 Room Air 10/04/23 11:00 Room Air 10/04/23 11:00 10/04/23 11:00 Laboratory Results Abnormal lab results 08/17/24 08/17/24 Range/Units 11:10 11:45 WBC 14.10 H (4.8-10.8) K/ul Hgb 11.7 L (12.0-16.0) g/dl Hct 33.2 L (37.0-47.0) % MCV 78.1 L (80.0-100.0) fL Neut # (Auto) 11.17 H (1.40-6.50) K/uL Powell # (Auto) 0.95 H (0.11-0.59) K/uL Sodium 123 L (136-145) mmol/L Chloride 87 L (98-107) mmol/L Carbon Dioxide 17 L (21-32) mmol/L Anion Gap 19 H (3-11) Creatinine 1.57 H (0.6-1.2) mg/dl BUN/Creatinine Ratio 7.0 L (10-20) Glucose 250 H (70-99(Fasting)) mg/dl Osmolality 263 L (280-300) mOsm/kg Calcium 6.8 L (8.6-10.3) mg/dl AST 9 L (13-39) U/L Alkaline Phosphatase 115 H (34-104) U/L Lipase 8 L (11-82) U/L Urine Appearance Cloudy A (Clear) Urine Glucose (UA) Trace H (Negative) Ur Leukocyte Esterase 2+ H (Negative) Urine WBC (Auto) 21-50 H (0-5) /hpf U Hyaline Cast (Auto) 3-5 H (0-2) /lpf U Epithel Cells (Auto) 3-5 H (0-2) /hpf Urine Bacteria (Auto) 4+ H (None Seen) Urine Osmolality 199 L (500-800) mOsm/kg ECG Additional Comments: EKG revealed NSR at 83 bpm; QTc 469 Code Status & VTE Plan Code Status Full code Supervising Physician Co-Signing Physician Notes Patient seen and examined, chart reviewed, case discussed with Omid Torres PA-C and I agree with the assessment and plan as above except as otherwise noted Labs and images reviewed Alison is a 63-year-old female with past medical history of type II DM poorly controlled A1c greater than 10, CAD with history of LAD PCI, tobacco use, hyponatremia, depression/anxiety, failure to thrive, recurrent falls and recent [facility] for generalized weakness with history of rapid readmissions for falls after discharge from rehab who presents to the ER with nausea/vomiting/abdominal pain similar to what she experienced last month. Has been suspected to have diabetic gastroparesis. No GI bleeding. She has had loose bowels/nonbloody diarrhea. She has a leukocytosis of 14 without left shift. She is with acute on chronic hyponatremia, sodium 123. Clinically examines like Pyelo with some suprapubic tenderness, and bilateral CVA tenderness to percussion. UTI, Suspected pyelo Started on Rocephin last culture positive for pansensitive E. coli UA is overtly infected appearing 4+ bacteria, 2+ leukocyte esterase, nitrate negative. Minimal contamination epis 35 CT pending on admission. PT has had pain spreading into her back with CVA tenderness. Lactate ordered following admission consultation. Subsequently elevated at 3.9. Additional NSS bolus given. Lactate downtrending. Nausea/vomiting/diarrhea With history of suspected diabetic gastroparesis Suspect acutely due to UTI +/- Pyelo treated as noted Hyponatremia Acute on chronic. Sodium 123. Clinically volume contracted, patient is not volume overloaded on exam. Urine sodium is elevated at 48 however this is not reliable due to severe hypomagnesemia of 0.5. Clinically is slightly hypovolemic with an SAMRA and nausea/vomiting/diarrhea, will complete 1 L NSS started on ER assessment and repeat BMP, and then continue BMP every 4 hours. If sodium is dropping consistent with clinical SIADH after fluids then will need to fluid restrict +/- 3% saline as needed h owever, suspect hypovolemic hyponatremia and electrolyte depletion which hopefully will improve w/ fluid tx. Phosphorus added SAMRA Volume contracted Baseline creatinine around 1.2 Admitting creatinine 1.57 Fluids as noted, renally dose medications, trend BMP Management of chronic issues as above. PG Care Time/CCT Total # of Minutes Spent Total Time Spent with Patient: Total time spent is greater than 50% in coordination of care (as documented) at patient's floor/unit and/or counseling patient: Coding [place] [address] INT INP/OBS CARE 3/75MIN Patient Type Established History Comprehensive Exam Comprehensive Medical Decision Making High Complexity Diagnoses Nausea vomiting and diarrhea R11.2; R19.7 UTI (urinary tract infection) N39.0 Hypomagnesemia E83.42 Hypocalcemia E83.51 Acute hyponatremia E87.1 SAMRA (acute kidney injury) N17.9 Type 2 diabetes mellitus with hyperglycemia, without long-term current use of insulin E11.65 Diabetes mellitus chcf insulin use: without intermediate accountant use Coronary artery disease involving tangirnaq coronary artery of tangirnaq heart, unspecified whether angina present I25.10 Associated angina: unspecified whether angina present Coronary Disease-Associated Artery/Lesion type: tangirnaq artery [place] vs. transplanted heart: tangirnaq heart Cigarette smoker F17.210 (7) Hyperglycemia due to type 2 diabetes mellitus Diabetes mellitus chcf insulin use: without intermediate accountant use Qualified Code(s): E11.65 - Type 2 diabetes mellitus with hyperglycemia (8) CAD (coronary artery disease) Associated angina: unspecified whether angina present Coronary Disease- Associated Artery/Lesion type: tangirnaq artery [place] vs. transplanted heart: tangirnaq heart Qualified Code(s): I25.10 - Atherosclerotic heart disease of tangirnaq coronary artery without angina pectoris
[2023-10-04] MEDS: SODIUM CHLORIDE 0.9% 1,000 ML IV ONE ×2 (12:32→13:32)
[2023-10-04 12:39] LABS: Magnesium 0.5 mg/dl (1.7-2.4)
[2023-10-04] MEDS: cefTRIAXone SODIUM 2,000 MG/50 ML BAG IV STA (12:45)
[2023-10-04] MEDS: MAGNESIUM SULFATE / D5W 1 GM/100 ML BAG IV SCH ×2 (12:58→14:09)
[2023-10-04] MEDS ORDERED: SODIUM CHLORIDE 0.9% 500 ML IV ONE (13:05)
[2023-10-04] MEDS: CALCIUM GLUCONATE 1,000 MG/60 ML BAG IV STA ×2 (13:43→15:32)
--- NOTE | 2023-10-04 14:16 | CT Scan Report ---
CT SCAN OF THE ABDOMEN AND PELVIS WITHOUT IV CONTRAST CLINICAL HISTORY: Vomiting. COMPARISON STUDY: Abdominal CT dated 08/30/2023. TECHNIQUE: CT scan of the abdomen and pelvis is performed from the lung bases to the proximal femora. Images are reviewed in the axial, sagittal, and coronal planes. IV contrast was not administered for this examination as per the referring clinician. Note that the examination was performed in suboptim al fashion without oral and IV contrast. A dose lowering technique was utilized ad[facility] to the [facility] [place]. CT DOSE: 1168.36 mGy.cm FINDINGS: Lung bases: The heart is normal in size and without pericardial effusion. The lung bases are clear. T here is a small hiatal hernia. Liver: The unenhanced liver is normal in size, contour, and attenuation. There is no intrahepatic mariana iary ductal dilatation. Gallbladder: Surgically absent noting clips in the gallbladder fossa. Spleen: Normal in size and attenuation. Pancreas: The unenhanced pancreas is atrophic and grossly unremarkable. Adrenal glands: Unremarkable. Kidneys: The unenhanced kidneys are normal in size and without hydronephrosis. No renal calculi are i dentified and no ureteral stone is seen. A 1.6 cm cyst is noted on the left. Abdominal vasculature: The abdominal aorta is normal in course and caliber noting moderate atheroscle rotic calcification. Bowel: There is moderate colonic diverticulosis without CT evidence of acute diverticulitis. No bowel obstruction is identified. There is mild to moderate colonic fecal retention. The appendix is well- visualized and normal. Peritoneum: There is no intraperitoneal free air or abdominal ascites. There is a fat-containing supr aumbilical hernia as seen on axial image #99. Lymphadenopathy: None. Pelvic viscera: The bladder is decompressed and grossly unremarkable. There are calcified uterine fib roids. No adnexal lesion is seen. Skeletal structures: The skeletal structures are osteopenic. There is mild lumbosacral spondylosis. S clerotic change is noted in the sacroiliac joints and symphysis. No lytic or blastic lesions are seen . Fat necrosis is again seen overlying the right proximal femur. IMPRESSION: 1. No acute infectious or inflammatory findings are identified in the abdomen or pelvis. 2. Colonic diverticulosis without CT evidence of acute diverticulitis. 3. Additional findings as above. ACT 112: Negative or not required by law. Electronically signed by: Lalito Cisse M.D. 10/04/2023 2:14 PM
[2023-10-04 14:20] LABS: Base Excess VBG -1.9 mEq/L; HCO3 VBG 22 mmol/L; Oxygen Saturation VBG < 60.0 %; PCO2 VBG 33 mmHg (38-50); PO2 VBG 29 mmHg; pH VBG 7.43 (7.36-7.41)
[2023-10-04 14:43] LABS: BUN Creatinine Ratio 7.6 (10-20); Calcium 6.2 mg/dl (8.6-10.3); Creatinine Clr Calc Pharmacy 37.7 ml/min; Est GFR (African American) 44.4 ml/min; Est GFR (Non-African American) 38.3 ml/min; Magnesium 1.4 mg/dl (1.7-2.4); Phosphorus 3.3 mg/dl (2.5-4.9); Potassium 3.5 mmol/L (3.5-5.1)
--- NOTE | 2023-10-04 14:57 | Electrocardiogram Report ---
Test Reason : Blood Pressure : */* mmHG Vent. Rate : 89 BPM Atrial Rate : 89 BPM P-R Int : 142 ms QRS Dur : 58 ms QT Int : 386 ms P-R-T Axes : 29 32 71 degrees QTcB Int : 469 ms Normal sinus rhythm Low voltage QRS Possible Old Septal infarct Borderline ECG When compared with ECG of 12-Sep-2023 15:08, No significant change Confirmed by Garcia Harris ([id number]) on 10/04/2023 2:57:37 PM Referred By: REFERRED SELF Confirmed By: Garcia Harris
[2023-10-04] MEDS: LACTATED RINGER'S 1,000 ML IV SCH (15:04)
[2023-10-04] MEDS ORDERED: GLUCAGON FOR INJ 1 MG VIAL SQ PRN (16:05)
[2023-10-04] MEDS ORDERED: GLUCOSE 40% GEL 15 GM TUBE PO PRN (16:05)
[2023-10-04] MEDS ORDERED: GLUCOSE 10 TAB/TUBE PO PRN (16:05)
[2023-10-04] MEDS ORDERED: CARBOHYDRATES FOR HYPOGLYCEMIA PO PRN (16:05)
[2023-10-04] MEDS ORDERED: DEXTROSE 50% 50 ML SYRINGE IV PRN (16:05)
[2023-10-04] MEDS: SODIUM CHLORIDE 0.9% 500 ML IV ONE (16:13)
[2023-10-04] MEDS: traMADol HCL 50 MG TABLET PO PRN (17:08)
[2023-10-04] MEDS: CHOLECALCIFEROL 25 MCG (1000 UNITS) TAB PO ONE (17:08)
[2023-10-04] MEDS: INSULIN ASPART PER UNIT CHARGE SC SCH (17:08)
[2023-10-04] MEDS: ACETAMINOPHEN 500 MG TAB PO PRN (18:22)
[2023-10-04] MEDS: ONDANSETRON INJ 2 MG/ML 2 ML VIAL IV PRN (18:22)
[2023-10-04 19:27] LABS: Adenovirus F 40/41 PCR Not Detected (NotDetected); Astrovirus PCR Not Detected (NotDetected); Campylobacter PCR Not Detected (NotDetected); Cryptosporidium PCR Not Detected (NotDetected); Cyclospora cayetanensis PCR Not Detected (NotDetected); Entamoeba histolytica PCR Not Detected (NotDetected); Enteroaggregative E.coli(EAEC) Not Detected (NotDetected); Enteropathogenic E.coli (EPEC) Not Detected (NotDetected); Enterotoxigenic E.coli (ETEC) Not Detected (NotDetected); Giardia lamblia PCR Not Detected (NotDetected); Norovirus GI/GII PCR Not Detected (NotDetected); Plesiomonas shigelloides PCR Not Detected (NotDetected); Rotavirus A PCR Not Detected (NotDetected); Salmonella PCR Not Detected (NotDetected); Sapovirus PCR Not Detected (NotDetected); Shiga-like Toxin E.coli (STEC) Not Detected (NotDetected); Shigella/Enteroinvasive E.coli Not Detected (NotDetected); Vibrio cholerae PCR Not Detected (NotDetected); Vibrio species PCR Not Detected (NotDetected); Yersinia enterocolitica PCR Not Detected (NotDetected)
[2023-10-04 20:33] LABS: BUN Creatinine Ratio 7.3 (10-20); Calcium 6.9 mg/dl (8.6-10.3); Creatinine Clr Calc Pharmacy 43.6 ml/min; Est GFR (African American) 53.2 ml/min; Est GFR (Non-African American) 45.9 ml/min; Magnesium 1.9 mg/dl (1.7-2.4); Potassium 3.2 mmol/L (3.5-5.1)
[2023-10-04] MEDS: ATORVASTATIN 40 MG TAB PO SCH (21:34)
[2023-10-04] MEDS: TICAGRELOR 90 MG TAB PO SCH (21:34)
[2023-10-04] MEDS: GABAPENTIN 100 MG CAP PO SCH (21:36)
[2023-10-04] MEDS: HEPARIN SOD 5,000 UNIT/0.5 ML VIAL SQ SCH (21:36)
[2023-10-04] MEDS: POTASSIUM CHLORIDE / WTR 10 MEQ/100 ML PLCT IV SCH (21:54)
[2023-10-04] MEDS: POTASSIUM CHLORIDE CRTAB 20 MEQ TABCR PO STA (22:56)
[2023-10-04 23:43] LABS: BUN Creatinine Ratio 7.8 (10-20); Creatinine Clr Calc Pharmacy 46.6 ml/min; Est GFR (African American) 57.6 ml/min; Est GFR (Non-African American) 49.7 ml/min; Magnesium 1.7 mg/dl (1.7-2.4); Potassium 3.4 mmol/L (3.5-5.1)
[2023-10-05] MEDS: LEVOTHYROXINE SODIUM 88 MCG TABLET PO SCH (05:49)
[2023-10-05 06:47] LABS: Basophils # (auto) 0.04 K/uL (0.00-0.20); Basophils % (auto) 0.4 %; Eosinophils # (auto) 0.17 K/uL (0.00-0.50); Eosinophils % (auto) 1.5 %; Hematocrit (blood only) 29.3 % (37.0-47.0); Hemoglobin 10.4 g/dl (12.0-16.0); Immature Granulocytes # (auto) 0.07 K/uL (0.01-0.20); Immature Granulocytes % (auto) 0.6 %; Lymphocytes # (auto) 1.41 K/uL (1.20-3.40); Lymphocytes % (auto) 12.7 %; Mean Corpuscular Hemoglobin 28.1 pg (25.0-34.0); Mean Corpuscular Hgb Conc 35.5 g/dL (32.0-36.0); Mean Corpuscular Volume 79.2 fL (80.0-100.0); Mean Platelet Volume 10.2 fL (9.4-12.4); Monocytes # (auto) 0.69 K/uL (0.11-0.59); Monocytes % (auto) 6.2 %; Neutrophils # (auto) 8.73 K/uL (1.40-6.50); Neutrophils % (auto) 78.6 %; Platelet Count 269 K/uL (130-400); RDW Coefficient of Variation 13.7 % (11.5-14.5); RDW Standard Deviation 39.9 fL (36.4-46.3); White Blood Count 11.11 K/ul (4.8-10.8)
[2023-10-05 07:15] LABS: Albumin Globulin Ratio 1.4 (0.9-2); Albumin Level 3.4 gm/dl (3.4-5.0); BUN Creatinine Ratio 7.3 (10-20); Bilirubin,Total 0.5 mg/dl (0.2-1.0); Calcium 7.1 mg/dl (8.6-10.3); Creatinine Clr Calc Pharmacy 60.1 ml/min; Est GFR (African American) 72.4 ml/min; Est GFR (Non-African American) 62.5 ml/min; Globulin 2.5 gm/dl (2.5-4.0); Magnesium 1.6 mg/dl (1.7-2.4); Potassium 4.1 mmol/L (3.5-5.1); Total Protein 5.9 gm/dl (6.0-8.3)
[2023-10-05] MEDS: POLYETHYLENE (MIRALAX) 17 GM PACK PO SCH (08:58)
[2023-10-05] MEDS: SPIRONOLACTONE 12.5 MG TAB PO SCH (08:58)
[2023-10-05] MEDS: buPROPion XL 150 MG TABCR PO SCH (08:58)
[2023-10-05] MEDS: ESCITALOPRAM OXALATE 20 MG TAB PO SCH (08:58)
[2023-10-05] MEDS: FOLIC ACID 1 MG TAB PO SCH (08:58)
[2023-10-05] MEDS: ASPIRIN 81 MG ECTAB PO SCH (08:58)
[2023-10-05] MEDS: MAGNESIUM SULFATE / D5W 1 GM/100 ML BAG IV SCH (09:09)
[2023-10-05] MEDS: CALCIUM CARBONATE 500 MG CHEWABLE TAB PO SCH (09:10)
[2023-10-05] MEDS: CHOLECALCIFEROL 25 MCG (1000 UNITS) TAB PO SCH (10:33)
[2023-10-05] MEDS: cefTRIAXone SODIUM 2,000 MG/50 ML BAG IV SCH (12:12)
--- NOTE | 2023-10-05 13:58 | Hospitalist Progress Note ---
Date of Service October 05, 2023 Assessment & Plan (1) Nausea vomiting and diarrhea: Plan: Has a long history of severe esophageal dysfunction with chronic vomiting and dysphagia. SHe has had EGD that only showed mild gastritis in 2021, a normal gastric emptying study in 02/2023, and a video swallow that showed the esophageal dysmotility. SHe has been seen by Speech and advised to remain completely upright while eating, to eat a slippery diet, small amounts, etc. Pt was unaware of this diagnosis or the recommendations from speech tx and in fact doesn't recall ever seeing a Speech therapist. She presented here with lower abdominal pain & N/V/D x 2 days. No fever but has a leukocytosis and evidence of UTI on urinalysis. Urine culture growing gram- negative rods She has diarrhea but takes MiraLAX 34 g a day for chronic diarrhea. She does think that she has had an increase in amount of loose stools since starting metformin a month ago. I do not believe she has an infectious diarrhea and her stool studies were negative for such CT A/P without acute infectious or inflammatory findings Received IV fluids x 2 L and now discontinued -Advised sitting upright with all meals, slippery diet once advanced to solid foods-continue clear liquids for now at patient's request and advance diet as tolerated -Continue antiemetics as needed -Hold MiraLAX for diarrhea -Switch metformin to metformin XR on discharge for less GI side effects -Hold home spironolactone (2) UTI (urinary tract infection): Plan: Leukocytosis at 14.10 with neutrophil predominance UA positive Most recent UCx on 09/06 grew pansensitive E. coli and urine culture here now is growing gram-negative rods-ID and sensitivity pending -Continue Rocephin 2000 mg IV -Follow current UCx (3) Acute hyponatremia: Plan: Na 123 on arrival with baseline sodium around 130-134 over the last month or so Serum Osm low at 263, urine Osm 199, urine Sodium at 48 but likely falsely elevated in the setting of diuretic use and sodium wasting in the setting of hypomagnesemia Sodium is now up to 129 after receiving isotonic IV fluids -Hold spironolactone -No further IV fluids needed -Follow BMP in the morning (4) Hypomagnesemia: Plan: Magnesium really low at 0.5 on arrival Suspect secondary to GI losses, poor p.o. intake, diuretic use, and PPI use She was given 4 g of IV magnesium on the day of admission and magnesium still low today but improved at 1.6 -Give 2 more grams of IV magnesium today and follow level in the morning -Hold Protonix and consider stopping altogether -Discontinue spironolactone permanently (5) Hypocalcemia: Plan: Calcium 6.8 on arrival with normal albumin. Vitamin D checked and very low at 13. Also with hypomagnesemia. She was given 2 g of IV calcium gluconate on arrival and sodium is improved but remains low at 7.1 -Continue correcting hypomagnesemia -Started vitamin D supplementation -Will start calcium supplementation p.o. -Follow BMP (6) SAMRA (acute kidney injury): Plan: BUN 11, creatinine 1.57 on arrival (baseline 1.02) Likely prerenal due to dehydration and diuretic use Received IV fluids and now creatinine improved to 0.96 -No further IV fluids needed -Hold spironolactone and would not restart (7) Hyperglycemia due to type 2 diabetes mellitus: Plan: Severely uncontrolled with last A1c at 12.0% on 08/27/2023, Glucose 250 on admission Holding metformin, glimepiride SSI; with target BSG range 110-140mg/dL, CF 50, carb ratio 15 T2DM diet, BSG ACHS Adjust regimen as needed Likely needs to go back on basal insulin as an outpatient with ongoing worsening diarrhea since starting metformin, will change to metformin XR on discharge (8) CAD (coronary artery disease): Plan: S/p CHANTAL -Continue aspirin and Brilinta, atorvastatin (9) Cigarette smoker: Plan: Current everyday tobacco cigarette smoker Patient reports that she tried to quit smoking 3 days ago -Continue to encourage cessation Plan Hypothyroidism height and most recent TSH normal in 08/2023, continue home levothyroxine Depression/anxiety-stable, continue home escitalopram and bupropion Disposition: Continued stay on PCU telemetry, ordered PT/OT consults as she was just discharged from rehab 6 days prior to this admission VTE PPx: Heparin 5000u SQ q12h Admission and Anticipated Discharge Date Admission Date: October 04, 2023 Subjective Patient reports she is tolerating clear liquids today but she is fearful to advance her diet. No further abdominal pain. She has been having more diarrhea since starting metformin about a month ago and wonders if it is from this. She previously used to always be constipated and continues to take MiraLAX 34 g/day. She did refuse the MiraLAX this morning as she is having more diarrhea than usual. Nursing reports the patient is independent in the room Telemetry with normal sinus rhythm with rates in 60s to 80s Physical Exam Constitutional: WD/WN, vitals as above + obese Respiratory: normal respiratory effort, lungs clear to auscultation Cardiovascular: RRR, no murmur, no edema Gastrointestinal (Abdomen): normal bowel sounds, soft, nontender, no hepatosplenomegaly Psychiatric: A+Ox3, euthymic affect Results & Data Results & Data Vital Signs (Past 12 Hours) Vital Signs Temp Pulse Pulse Resp BP Pulse Ox O2 Del Method 10/05/23 11:21 36.7 C 66 24 119/64 99 Room Air 10/05/23 07:23 36.8 C 69 24 118/76 98 Room Air 10/05/23 06:02 68 10/05/23 04:06 36.5 C 73 17 108/68 98 Room Air Laboratory Results CBC, BMP, lactate, LFTs, magnesium, urine culture reviewed PG Care Time/CCT Total # of Minutes Spent Total Time Spent with Patient: Total time spent is greater than 50% in coordination of care (as documented) at patient's floor/unit and/or counseling patient: Coding Level of Care Code 05979 SUB INP/OBS CARE 3/50MIN Diagnoses Nausea vomiting and diarrhea R11.2; R19.7 UTI (urinary tract infection) N39.0 Acute hyponatremia E87.1 Hypomagnesemia E83.42 Hypocalcemia E83.51 SAMRA (acute kidney injury) N17.9 Type 2 diabetes mellitus with hyperglycemia, without long-term current use of insulin E11.65 Diabetes mellitus termination clerk insulin use: without termination clerk use Coronary artery disease involving [place] coronary artery of [place] heart, unspecified whether angina present I25.10 Associated angina: unspecified whether angina present Coronary Disease-Associated Artery/Lesion type: [place] artery [place] vs. transplanted heart: [place] heart Cigarette smoker F17.210 (7) Hyperglycemia due to type 2 diabetes mellitus Diabetes mellitus intermediate insulin use: without intermediate use Qualified Code(s): E11.65 - Type 2 diabetes mellitus with hyperglycemia (8) CAD (coronary artery disease) Associated angina: unspecified whether angina present Coronary Disease- Associated Artery/Lesion type: [place] artery [place] vs. transplanted heart: [place] heart Qualified Code(s): I25.10 - Atherosclerotic heart disease of [place] coronary artery without angina pectoris
[2023-10-06 06:46] LABS: Basophils # (auto) 0.03 K/uL (0.00-0.20); Basophils % (auto) 0.3 %; Eosinophils # (auto) 0.24 K/uL (0.00-0.50); Eosinophils % (auto) 2.3 %; Hematocrit (blood only) 32.6 % (37.0-47.0); Immature Granulocytes # (auto) 0.06 K/uL (0.01-0.20); Immature Granulocytes % (auto) 0.6 %; Lymphocytes # (auto) 1.82 K/uL (1.20-3.40); Lymphocytes % (auto) 17.1 %; Mean Corpuscular Hemoglobin 27.7 pg (25.0-34.0); Mean Corpuscular Hgb Conc 33.7 g/dL (32.0-36.0); Mean Corpuscular Volume 82.1 fL (80.0-100.0); Mean Platelet Volume 10.3 fL (9.4-12.4); Monocytes % (auto) 6.6 %; Neutrophils # (auto) 7.77 K/uL (1.40-6.50); Neutrophils % (auto) 73.1 %; Platelet Count 275 K/uL (130-400); RDW Coefficient of Variation 14.2 % (11.5-14.5); RDW Standard Deviation 42.3 fL (36.4-46.3); Red Blood Count 3.97 M/uL (4.20-5.40); White Blood Count 10.62 K/ul (4.8-10.8)
[2023-10-06 07:06] LABS: Albumin Globulin Ratio 1.3 (0.9-2); Albumin Level 3.4 gm/dl (3.4-5.0); BUN Creatinine Ratio 5.4 (10-20); Bilirubin,Total 0.3 mg/dl (0.2-1.0); Calcium 7.9 mg/dl (8.6-10.3); Creatinine Clr Calc Pharmacy 62.7 ml/min; Est GFR (African American) 76.3 ml/min; Est GFR (Non-African American) 65.8 ml/min; Globulin 2.6 gm/dl (2.5-4.0); Magnesium 1.6 mg/dl (1.7-2.4); Potassium 3.8 mmol/L (3.5-5.1)
[2023-10-06] MEDS: GLIMEPIRIDE 2 MG TAB PO SCH (09:17)
[2023-10-06] MEDS: MAGNESIUM OXIDE 400 MG TAB PO SCH (09:17)
--- NOTE | 2023-10-06 11:52 | Hospitalist Progress Note ---
Date of Service October 06, 2023 Assessment & Plan (1) Nausea vomiting and diarrhea: Plan: Nausea has resolved. She continues to have intermittent loose stools but I suspect this may be due to underlying constipation. Colace has been started. Supportive care (2) UTI (urinary tract infection): Plan: Pansensitive E. coli isolated. Currently on Rocephin, day 2. (3) Acute hyponatremia: Plan: With hypoosmolarity on admission. Sodium has improved to 130 and will eventually normalize. Continue current treatment plan. Spironolactone will be discontinued permanently. (4) Hypomagnesemia: Plan: Partially corrected with parenteral replacement. Now on oral replacement. Serial labs. Protonix has been discontinued. (5) Hypocalcemia: Plan: Calcium 6.8 on arrival with normal albumin. Vitamin D deficiency noted. She is now on replacement therapy. (6) SAMRA (acute kidney injury): Plan: Mild on admission. Creatinine has now normalized with IV fluids. Monitor intake and output. Spironolactone has been discontinued permanently. (7) Hyperglycemia due to type 2 diabetes mellitus: Plan: last A1c at 12.0% on 08/27/2023. ADA diet. Sliding scale coverage. Glimepiride has been restarted today, October 05. Will switch metformin to XR formulation at the time of discharge. (8) CAD (coronary artery disease): Plan: With history of drug-eluting stent placement. Stable. Continue current medical management (9) Cigarette smoker: Plan: Smoking cessation recommended. Plan Hopeful discharge to home tomorrow, October 06 Admission and Anticipated Discharge Date Admission Date: October 04, 2023 Subjective Alert and oriented. No distress. She continues to have intermittent loose stools but this could be due to underlying constipation which caused her nausea. Pansensitive E. coli isolated in the urine. She is currently on day 2 of intravenous Rocephin therapy. Creatinine has normalized to 0.9. Sodium much improved from admission, now 130. Oral magnesium supplementation started. She will remain off spironolactone and Protonix indefinitely. Glimepiride has been restarted. Will resume metformin and XR formulation at discharge. She is now on oral potassium. Colace has been started. Hopefully she can go home tomorrow, October 06. Review of Systems 2 Review of Systems: Constitutionalno fever or chills ENTno blurred vision, no double vision, no epistaxis, no sore throat Respiratoryno cough, no wheezing, no shortness of breath Cardiacno palpitations, no chest pain, no syncope Jada nausea, vomiting,melena, hematochezia. Intermittent loose stools GUno urinary retention, no urinary incontinence, no dysuria, no hematuria Musculoskeletalno joint pain, no muscle tenderness Skinno bruising, no rashes, no pruritus Neurono isolated weakness, no paresthesia, no weakness Psychno depression, no anxiety Physical Exam 2 Physical Exam: General-alert and oriented x3, no fever, no chills HEENT-head atraumatic and normocephalic, pupils equal and reactive to light, extraocular muscles intact Neck-no lymphadenopathy or thyromegaly, trachea midline Chest-clear to auscultation. No rales, wheezing or rhonchi Cardiac-regular rate and rhythm, normal S1 and S2 Abdomen-normal bowel sounds, no hepatosplenomegaly Extremities-no cyanosis, clubbing, or edema Neuro-cranial nerves II through XII intact, motor and sensory function within normal limits, strength symmetrical, no focal deficits Psych-normal affect, normal mood Results & Data Results & Data Vital Signs (Past 12 Hours) Vital Signs Temp Pulse Pulse Resp BP Pulse Ox O2 Del Method 10/06/23 08:12 83 10/06/23 07:41 36.7 C 90 18 128/84 99 Room Air 10/06/23 04:22 36.7 C 67 19 111/73 96 Room Air 10/06/23 02:29 81 Laboratory Results 10/06/23 05:40 10/06/23 05:40 PG Care Time/CCT Total # of Minutes Spent Total Time Spent with Patient: Total time spent is greater than 50% in coordination of care (as documented) at patient's floor/unit and/or counseling patient: Coding Level of Care Code 84565 SUB INP/OBS CARE 3/50MIN Diagnoses Nausea vomiting and diarrhea R11.2; R19.7 UTI (urinary tract infection) N39.0 Acute hyponatremia E87.1 Hypomagnesemia E83.42 Hypocalcemia E83.51 SAMRA (acute kidney injury) N17.9 Type 2 diabetes mellitus with hyperglycemia, without long-term current use of insulin E11.65 Diabetes mellitus usp insulin use: without usp use Coronary artery disease involving [place] coronary artery of [place] heart, unspecified whether angina present I25.10 Coronary Disease-Associated Artery/Lesion type: [place] artery [place] vs. transplanted heart: [place] heart Associated angina: unspecified whether angina present Cigarette smoker F17.210 (7) Hyperglycemia due to type 2 diabetes mellitus Diabetes mellitus terminal supervisor insulin use: without terminal supervisor use Qualified Code(s): E11.65 - Type 2 diabetes mellitus with hyperglycemia (8) CAD (coronary artery disease) Coronary Disease-Associated Artery/Lesion type: [place] artery [place] vs. transplanted heart: [place] heart Associated angina: unspecified whether angina present Qualified Code(s): I25.10 - Atherosclerotic heart disease of [place] coronary artery without angina pectoris
[2023-10-06] MEDS: POTASSIUM CHLORIDE 10 MEQ TABCR PO SCH (11:59)
[2023-10-06] MEDS: DOCUSATE SODIUM 100 MG CAP PO SCH (11:59)
[2023-10-07 06:50] LABS: Basophils # (auto) 0.03 K/uL (0.00-0.20); Basophils % (auto) 0.3 %; Hematocrit (blood only) 31.6 % (37.0-47.0); Hemoglobin 10.8 g/dl (12.0-16.0); Immature Granulocytes # (auto) 0.05 K/uL (0.01-0.20); Immature Granulocytes % (auto) 0.5 %; Lymphocytes # (auto) 2.47 K/uL (1.20-3.40); Lymphocytes % (auto) 24.5 %; Mean Corpuscular Hemoglobin 28.1 pg (25.0-34.0); Mean Corpuscular Hgb Conc 34.2 g/dL (32.0-36.0); Mean Corpuscular Volume 82.3 fL (80.0-100.0); Monocytes # (auto) 0.67 K/uL (0.11-0.59); Monocytes % (auto) 6.6 %; Neutrophils # (auto) 6.57 K/uL (1.40-6.50); Neutrophils % (auto) 65.1 %; Platelet Count 286 K/uL (130-400); RDW Coefficient of Variation 14.2 % (11.5-14.5); RDW Standard Deviation 42.1 fL (36.4-46.3); Red Blood Count 3.84 M/uL (4.20-5.40); White Blood Count 10.09 K/ul (4.8-10.8)
[2023-10-07 06:58] LABS: Albumin Globulin Ratio 1.3 (0.9-2); Albumin Level 3.5 gm/dl (3.4-5.0); BUN Creatinine Ratio 7.8 (10-20); Bilirubin,Total 0.3 mg/dl (0.2-1.0); Calcium 8.6 mg/dl (8.6-10.3); Est GFR (African American) 66.5 ml/min; Est GFR (Non-African American) 57.4 ml/min; Globulin 2.7 gm/dl (2.5-4.0); Magnesium 1.3 mg/dl (1.7-2.4); Potassium 4.4 mmol/L (3.5-5.1); Total Protein 6.2 gm/dl (6.0-8.3)
[2023-10-07 07:17] VITALS: RESP 16
[2023-10-07] MEDS: MAGNESIUM SULFATE / D5W 1 GM/100 ML BAG IV ONE (10:56)
--- NOTE | 2023-10-07 12:48 | Discharge Summary ---
Discharge Summary Date of Service October 07, 2023 Principal Dx & Hospital Course #1 = Principal Diagnosis (1) Nausea vomiting and diarrhea: Nausea has resolved. She continues to have intermittent loose stools but I suspect this may be due to underlying constipation. Colace has been started. Supportive care (2) UTI (urinary tract infection): Pansensitive E. coli isolated. Treated with Rocephin while hospitalized. She will continue oral Keflex at discharge for 3 more days. (3) Acute hyponatremia: With hypoosmolarity on admission. Sodium continues to improve to 132 today, October 06. She is asymptomatic. Spironolactone will be discontinued permanently as a possible contributing agent. (4) Hypomagnesemia: Partially corrected with parenteral replacement. Now on oral replacement. Serial labs. Protonix has been discontinued. (5) Hypocalcemia: Calcium 6.8 on arrival with normal albumin. Vitamin D deficiency noted. She is now on replacement therapy. (6) SAMRA (acute kidney injury): Mild on admission. Creatinine has now normalized with IV fluids. Monitor intake and output. Spironolactone has been discontinued permanently. (7) Hyperglycemia due to type 2 diabetes mellitus: last A1c at 12.0% on 08/27/2023. ADA diet. Sliding scale coverage. Glimepiride has been restarted on October 05. Will switch metformin to XR formulation at the time of discharge. (8) CAD (coronary artery disease): With history of drug-eluting stent placement. Stable. Continue current medical management (9) Cigarette smoker: Smoking cessation recommended. Plan Home today, October 06, with home health services. Admission HPI Per Admitting Provider Yolanda is a 63-year-old female with PMH of CAD s/p CHANTAL, T2DM, anxiety, depression, psoriasis, vertigo, NSTEMI, recurrent falls, and FTT. She presented on 10/03 via ambulance for abdominal pain, diarrhea, nausea, and vomiting x 2 days. Patient reports that her pain came on gradually on 10/01. Her abdominal pain is located in the lower quadrants transversely across the bladder. She describes it as a constant, throbbing pain; 9/10 at present. Laying in different positions does not exacerbate the pain. She tried to eat last night, but immediately threw up afterwards. Additionally, she has been having diarrhea the past 2 days. History of gallbladder surgery; she denies any other abdominal surgeries. She did not take her regular morning medications today as she was unable to keep them down; only recent change medication is that she was started back on metformin about a month ago. Patient did fall at [facility] recently; she is on sure when exactly this happened; no head strike; no recent trauma to the head/neck/abdomen/pelvis. She does have a history of recurrent falls and reports that her knees tend to "buckle". She denies history of UTIs in the past. Patient's vitals are stable time of admission. ED course: NSS 1000 mL IV Zofran 4 mg IV ROS: Patient endorses hot and cold intolerance, dizziness, lightheadedness, headache, productive cough (clear), SOB at rest, orthopnea, lower transverse abdominal pain, nausea, vomiting, liquidy diarrhea, and suprapubic tenderness. Patient denies fever, night sweats, chest pain, chest palpitations, hemoptysis, hematemesis, blood in the stool or urine, burning with urination, increased u rinary frequency, melena, new onset back pain, or numbness or tingling in the arms or legs. Discharge Exam General-alert and oriented x3, no fever, no chills HEENT-head atraumatic and normocephalic, pupils equal and reactive to light, extraocular muscles intact Neck-no lymphadenopathy or thyromegaly, trachea midline Chest-clear to auscultation. No rales, wheezing or rhonchi Cardiac-regular rate and rhythm, normal S1 and S2 Abdomen-normal bowel sounds, no hepatosplenomegaly Extremities-no cyanosis, clubbing, or edema Neuro-cranial nerves II through XII intact, motor and sensory function within normal limits, strength symmetrical, no focal deficits Psych-normal affect, normal mood Discharge Plan Discharge Items Patient Disposition: Home - Home Health Services Reason For Visit: UTI, HYPOMAG, HYPONA Discharge Diagnosis: E. coli UTI, abdominal pain with nausea vomiting and diarrhea without obstruction, hypoosmolar hyponatremia, vitamin D deficiency with hypocalcemia, hypomagnesemia, acute kidney injury Activity: Resume your previous activity Non-emergency contact: Primary Care Provider Call non-emergency contact if: you have any medication questions and your symp toms worsen Follow-up/Referrals: Jc Zaman, [Primary Care Provider] - Diet: Carb Consistent or DM2 and Heart Healthy Addtl Attending Provider Instructions: Take cephalexin oral antibiotic for 3 more days. Metformin has been switched to the long-acting XR formulation. Spironolactone has been discontinued. Take Colace 100 mg twice a day for stool softener. Stop spironolactone. Stop Protonix as this can contribute to low magnesium levels. Take vitamin D daily. Take potassium daily. All prescriptions have been sent to your pharmacy Pending Studies at Discharge: No Stand-Alone Forms: My [facility], Smoking Cessation Medications and DC Order Prescriptions: New magnesium oxide 400 mg (241.3 mg magnesium) Tablet 400 mg PO BID Qty: 60 0RF docusate sodium 100 mg Capsule 100 mg PO BID Qty: 60 0RF cephalexin 250 mg capsule 250 mg PO TID Qty: 10 0RF metformin 1,000 mg tablet,ER mariann.retention 24 hr 1,000 mg PO BID Qty: 60 0RF cholecalciferol (vitamin D3) 25 mcg (1,000 unit) Capsule 25 mcg PO QAM Qty: 0 0RF calcium carbonate [Tums] 200 mg calcium (500 mg) Tablet,Chewable 1,500 mg PO DAILY Qty: 0 0RF Continued folic acid 1 mg tablet 1 mg PO QAM Qty: 90 3RF bupropion HCl 150 mg tablet extended release 24 hr 150 mg PO QAM 90 Days Qty: 90 3RF Brilinta 90 mg tablet 90 mg PO BID Qty: 60 3RF (DME) pen needle, diabetic [BD Ultra-Fine [place] Pen Needle] 32 gauge x 5/32" needle See Dose Instructions .ROUTE .MEDSUPPLY Qty: 200 11RF Dose Instruction: As directed Rx Instructions: use 2 times daily or as directed by physician to monitor blood sugar (DME) blood-glucose meter [Prod[employer] Autocode Meter] Kit See Rx Instructions .Route Rx Instructions: As directed aspirin 81 mg Tablet,Delayed Release (Dr/Ec) 81 mg PO QAM Qty: 30 0RF Rx Instructions: Over the counter acetaminophen [Pharbetol] 500 mg Tablet 1,000 mg PO Q8H PRN (Reason: Pain) atorvastatin 80 mg tablet 80 mg PO HS diclofenac sodium [Voltaren Arthritis Pain] 1 % gel 2 g EXT QID PRN (Reason: Pain) levothyroxine 88 mcg tablet 88 mcg PO DAILYBB escitalopram oxalate 20 mg Tablet 20 mg PO QAM Qty: 30 0RF polyethylene glycol 3350 [Miralax] 17 gram powder in packet 34 g PO DAILY Qty: 0 0RF tramadol 50 mg tablet 50 mg PO Q6H PRN (Reason: Pain) famotidine 20 mg tablet 20 mg PO DIRECTED PRN (Reason: Acid Reflux) gabapentin 100 mg capsule 200 mg PO BID Rx Instructions: bid glimepiride 2 mg tablet 4 mg PO UD Rx Instructions: 4 mg po qam pt isnt sure of this medication, it didnt sound familiar. Filled 09/05 for 15 day supply Discontinued pantoprazole 40 mg tablet,delayed release (DR/EC) 40 mg PO QAM Rx Instructions: TAKE ONE TABLET BY MOUTH ONCE DAILY spironolactone 25 mg tablet 12.5 mg PO QAM metformin 500 mg Tablet 1,000 mg PO BIDM Qty: 60 0RF Rx Instructions: pt isnt sure of dose. Filled 09/05 15 day supply as two tabs po bid Discharge Orders: Discharge Order (Routine); Ordered 10/07/23 Ordered By: Heriberto Domingo Admission Data Admit Date/Time: 10/04/23 14:21 Attending Provider: Heriberto Domingo Admit Provider: Eh Guerrero Primary Care Provider: Jc Zaman Other Providers: Eh Guerrero Hospital Stay Data Consultations 10/04/23 12:16 ED Decision to Admit Stat Diagnostic Imagining Performed 10/04/23 11:59 CT abd pelvis wo con Stat Pending Results Patient Have Any Pending Studies at Discharge: No Discharge Instructions Given to Patient (Per Discharging Provider) Take cephalexin oral antibiotic for 3 more days. Metformin has been switched to the long-acting XR formulation. Spironolactone has been discontinued. Take Colace 100 mg twice a day for stool softener. Stop spironolactone. Stop Protonix as this can contribute to low magnesium levels. Take vitamin D daily. Take potassium daily. All prescriptions have been sent to your pharmacy Total Time Total Time Spent Total Time Spent (In Minutes): 45 minutes Coding Level of Care Code 77886 INP/OBS DISCH >30 MIN Diagnoses Nausea vomiting and diarrhea R11.2; R19.7 UTI (urinary tract infection) N39.0 Acute hyponatremia E87.1 Hypomagnesemia E83.42 Hypocalcemia E83.51 SAMRA (acute kidney injury) N17.9 Type 2 diabetes mellitus with hyperglycemia, without long-term current use of insulin E11.65 Diabetes mellitus fci insulin use: without longwall machine operator helper use Coronary artery disease involving [place] coronary artery of [place] heart, unspecified whether angina present I25.10 Coronary Disease-Associated Artery/Lesion type: [place] artery [place] vs. transplanted heart: [place] heart Associated angina: unspecified whether angina present Cigarette smoker F17.210
[2023-10-07 15:44] VITALS: BP 150/74; PULSE 65; TEMP 97.9; O2SAT 97
[2023-10-07] MEDS: cephALEXin 250 MG CAP PO ONE (18:28)
[2023-10-07] MEDS ORDERED: cephALEXin 250 MG CAP PO SCH (21:00)
[2023-10-08] MEDS ORDERED: cephALEXin 250 MG CAP PO SCH (09:00)
== END 2023-10-07 18:35 | disposition home health service (06) | DRG 690 ==
LOC: ED 10:56 → SUATTDRO 14:21 → 2E 14:21 → 3W 10-06 23:16

== ENCOUNTER 2023-12-25 18:38 | Inpatient (IN) ==
--- NOTE | 2023-12-25 19:14 | Emergency Department Note ---
Impression & Plan Acute hyperglycemia, Hypomagnesemia, Nausea & vomiting, Abdominal pain, Hypokalemia ED Provider Note NAME: ELIAN SORENSEN AGE: 63 SEX: F : 1960 ARRIVES VIA: Ambulance INFORMANT: Patient, ED PROVIDER(S): Sincere Gatiac MD CHIEF COMPLAINT: [Nausea vomiting, abdominal pain, elevated blood sugar MEDICAL DECISION MAKING: Patient presented due to concern for nausea vomiting and abdominal pain with elevated blood sugar. IV was established and blood work was obtained. Patient was ordered IV fluids and antiemetics. Patient with white count 11.5 with hemoglobin 11.8. Platelet count is unremarkable. The patient's kidney function unremarkable potassium is significantly low at 2.2. Magnesium level ordered along with potassium. Troponin negative. Lipase and LFTs are unremarkable. Patient CT of the abdomen and pelvis does not show any acute findings. I did speak the on-call hospitalist service Dr. Liang and the patient was admitted to the medicine service. Additional replacement of electrolytes deferred to the inpatient team. Magnesium low at 1. Of note the patient did have EKG with T wave inversions and depressions but the patient denies any chest pains. The patient had complained of some shortness of breath. Negative troponin. In light of the patient's significant electrolyte abnormalities this may be related to that low potassium and low magnesium. Discussion w/ other healthcare providers: Dr. Liang inpatient medicine service Prior /Outside records reviewed: None Differential diagnosis: Gastroenteritis, food borne illness, infection, appendicitis, diverticulitis, inflammatory bowel disease, obstruction among others were considered. Diagnostics, as interpreted by me: ECG: Sinus rhythm, rate of 86, normal CA and QRS QTc prolonged, normal axis, slight ST depressions in the lateral leads. T wave inversion also in lead III. This is an acute change from comparison October 04, 2023. Cardiac monitoring: An order was placed for continuous cardiac monitoring. The monitor shows a rate of 85 with sinus rhythm. Patient was placed on pulse oximetry Medical decision rules: None Imaging studies: I informally interpreted the patient's CT abdomen pelvis does not show obvious bowel obstruction with formal report to follow. HPI:Patient presents due to concern for abdominal pain and elevated blood sugar. The patient states that she has had associated nausea and vomiting for the last 2 days. Patient states that she has had a cough nonproductive and some associated shortness of breath. Patient does feel better at rest. Patient denies any recent falls or trauma. The patient denies any leg swelling. Patient does have associated upper abdominal pain. Patient denies any blood in the vomit she denies any alcohol use. PAST MEDICAL HISTORY: See Below PAST SURGICAL HISTORY: See Below SOCIAL HISTORY: See Below HOME MEDICATIONS: See Below ALLERGIES: See Below VITALS: See Below PHYSICAL EXAMINATION: GENERAL: NAD, non-toxic. EYE EXAM: Normal conjunctiva. PERRL, no anisocoria and EOM's grossly intact w/o pain. OROPHARYNX: Dry mucous membranes. NECK: Trachea midline, no stridor. Supple, no nuchal rigidity, no adenopathy, non-tender. No signs of meningismus. FROM of the neck with good chin to chest and neck extension. LUNGS: Clear to auscultation. Normal chest wall mechanics. HEART: NSR, no MRG. ABDOMEN: Abdomen soft, well-healed incisional scar noted over the right upper abdomen, epigastric pain without lower abdominal pain no masses, no rebound or guarding. BACK: No CVA TTP. SKIN: No rashes and no bruising. UPPER EXTREMITIES: Upper extremities are grossly normal. LOWER EXTREMITIES: Grossly normal, no edema. NEURO EXAM: A&O x3, cranial nerves II-XII grossly intact, normal speech, moves all 4 extremities. Past Med/Surg History Problem List (Updated 12/30/23 @ 10:37 by Sincere Gatica MD) Hypokalemia (Acute) Abdominal pain (Acute) Nausea & vomiting (Acute) Hypomagnesemia (Acute) Acute hyperglycemia (Acute) Diarrhea SAMRA (acute kidney injury) (Acute) Tobacco use Prolonged QT interval (Acute) Hyperglycemia due to type 2 diabetes mellitus (Acute) Hypomagnesemia (Acute) Hypertension Chronic constipation Vitamin D deficiency Diabetes mellitus type 2 in obese Hyperglycemia due to type 2 diabetes mellitus Noncompliance (Chronic) Non compliance with medical treatment (Chronic) Delusional disorder Severe protein-calorie malnutrition Vertigo Dysphagia Early satiety Depression Anxiety (Chronic) Vitamin B12 deficiency Serum gamma globulin increased Psoriasis Obesity Low back pain Drug-induced tremor Arthralgia of multiple sites Tobacco abuse (Chronic) Diabetes type 2, uncontrolled IDDM Postmenopausal bleeding Thickened endometrium Mass of soft tissue Cervical mass Status post insertion of drug-eluting stent into left anterior descending (LAD) artery Chronic vulvitis S/P coronary artery stent placement (Chronic) 2 CHANTAL to LAD 10/22/2020 Diabetic nephropathy associated with type 2 diabetes mellitus Back pain Failure to thrive in adult Medical History Ventricular tachycardia Weakness Fall Cigarette smoker CAD (coronary artery disease) No remaining occlusive disease after 2 LAD drug eluting stents 10/22/20. Follows with Dr. Harris Hypothyroidism Diabetes mellitus GERD (gastroesophageal reflux disease) Acute on chronic combined systolic and diastolic CHF (congestive heart failure) Bradycardia with 41-50 beats per minute Accelerated hypertension Depression Osteoarthritis Chronic headaches NSTEMI (non-ST elevated myocardial infarction) 10/22/2020 s/p 2 CHANTAL Vulvitis Dyslipidemia Surgical History History of cardiac catheterization 10/22/2020 Dominant: Right Left Main (% Stenosis): Normal LAD (% Stenosis): Proximal (99) and Mid (75) Circumflex (% Stenosis): Normal (luminal irregularities) RCA (% Stenosis): Normal (Luminal irregularities) 2 CHANTAL to LAD History of cholecystectomy History of dental surgery History of tonsillectomy Family History Unknown Diabetes Thyroid disorder Father Diabetes Other No family history of adverse response to anesthesia Denies family history of Ovarian cancer Prostate cancer Breast cancer Colorectal cancer Uterine cancer Social History Smoking Status: Current every day smoker Tobacco Type: Cigarettes Age Started Using Tobacco: 24; Age Quit Using Tobacco: 1; packs per day: 0.5; Cigarettes Per Day: 5; Second Hand Exposure: No; Do You Dip or Chew Tobacco: No; Tobacco Cessation Education Requested by Patient: No Hx Alcohol Use: No Hx Substance Use: No Preferred Language: Kazakh Communication Ability: Effective Visual Impairment: No Limitations Online Marketing Strategist Required: No Beliefs That Will Affect Care: None marital status: Single Current Living Situation: Alone Current Living Situation Comment: lives in trailer current occupational status: disabled How many Children do You have: 0 Other Information That Helps Us Care for You: No Feels Safe at Home: Yes Safety Concerns: Feels Safe At This Time Safety Concerns Comment: Gets nervous sometimes because she lives alone, gets shaky from anxiety Diet: regular caffeine: Yes Dental Care, Regularly: No Physical Activity Frequency: Does not Exercise Seatbelt Use: always Sunscreen Use: No Assistive Devices: Walker Allergies Allergies Allergy/AdvReac Type Severity Reaction Status Date / Time dulaglutide [From Trulicity] AdvReac Intermediate stomach Verified 11/14/23 13:47 pain albiglutide [From Tanzeum] AdvReac Unknown CAN'T Verified 11/14/23 13:47 REMEMBER Home Meds Home Medications Medication Instructions Recorded Confirmed blood-glucose meter (Prodigy 10/15/21 12/01/23 Autocode Meter kit) acetaminophen 500 mg tablet 1,000 mg PO Q8H PRN Pain 01/23/23 12/01/23 (Pharbetol) atorvastatin 80 mg tablet 80 mg PO HS 01/23/23 12/01/23 diclofenac sodium 1 % topical gel 2 g EXT QID PRN Pain 02/28/23 12/01/23 (Voltaren Arthritis Pain) levothyroxine 88 mcg tablet 88 mcg PO DAILYBB 02/28/23 12/01/23 famotidine 20 mg tablet 20 mg PO DIRECTED PRN Acid 10/04/23 12/01/23 Reflux gabapentin 100 mg capsule 200 mg PO BID 10/04/23 12/01/23 tramadol 50 mg tablet 50 mg PO Q6H PRN Pain 10/04/23 12/01/23 Previous Rx's Medication Instructions Recorded aspirin 81 mg tablet,delayed 81 mg PO QAM #30 tabs 10/29/22 release folic acid 1 mg tablet 1 mg PO QAM #90 tabs 04/07/23 bupropion HCl 150 mg 24 hr tablet, 150 mg PO QAM 90 days #90 tabs 05/05/23 extended release ticagrelor 90 mg tablet (Brilinta) 90 mg PO BID #60 tabs 08/11/23 pen needle, diabetic 32 gauge x #200 ea 08/22/23" (BD Ultra-Fine Cary Pen Needle) escitalopram oxalate 20 mg tablet 20 mg PO QAM #30 tabs 09/06/23 polyethylene glycol 3350 17 gram 34 g PO DAILY Constipation #0 ea 09/06/23 oral powder packet (Miralax) cholecalciferol (vitamin D3) 25 25 mcg PO QAM #0 caps 10/07/23 mcg (1,000 unit) capsule metformin 500 mg tablet,extended 1,000 mg (2 x 500 mg) PO BID #360 10/23/23 release 24 hr tabs glimepiride 2 mg tablet 4 mg (2 x 2 mg) PO UD 90 days #180 11/16/23 tabs sitagliptin phosphate 100 mg 100 mg PO DAILY 90 days #90 tabs 11/16/23 tablet (Januvia) magnesium oxide 400 mg (241.3 mg 1,200 mg (3 x 400 mg (241.3 mg 11/18/23 magnesium) tablet magnesium)) PO DAILY #270 tabs docusate sodium 100 mg capsule 100 mg PO BID #60 caps 12/26/23 gabapentin 300 mg capsule 600 mg (2 x 300 mg) PO BID #60 caps 12/26/23 Results & Data (ED) Vital Signs Vital Signs - 24 hr 12/25/23 18:44 Temperature 36.9 C Temperature Source Oral Pulse Rate 92 H Respiratory Rate 18 Respiratory Effort / Characteristics Non-Labored Respiratory Depth Normal Blood Pressure 162/94 H Blood Pressure Mean 116 Pulse Oximetry 97 Oxygen Delivery Method Room Air Sepsis New/Unexplained Change in Mental Status No Sepsis Action Taken by Nursing No Action Required Home Medications Current Medication List: was personally reviewed by me Laboratory Data Attestation: I reviewed the patient's lab results. 12/28/23 05:49 12/28/23 05:49 Lab Results 12/25/23 12/25/23 Range/Units 18:40 19:58 WBC 11.53 H (4.8-10.8) K/ul RBC 4.14 L (4.20-5.40) M/uL Hgb 11.8 L (12.0-16.0) g/dl POC Hgb 10.5 L (12.0-16.0) g/dl Hct 34.7 L (37.0-47.0) % POC Hct 31 L (37-47) % MCV 83.8 (80.0-100.0) fL MCH 28.5 (25.0-34.0) pg MCHC 34.0 (32.0-36.0) g/dL RDW Std Deviation 40.7 (36.4-46.3) fL RDW Coeff of Umair 13.2 (11.5-14.5) % Plt Count 324 (130-400) K/uL MPV 9.9 (9.4-12.4) fL Immature Gran % (Auto) 0.3 % Neut % (Auto) 74.0 % Lymph % (Auto) 18.5 % Dickinson % (Auto) 6.3 % Eos % (Auto) 0.6 % Baso % (Auto) 0.3 % Neut # (Auto) 8.53 H (1.40-6.50) K/uL Lymph # (Auto) 2.13 (1.20-3.40) K/uL Dickinson # (Auto) 0.73 H (0.11-0.59) K/uL Eos # (Auto) 0.07 (0.00-0.50) K/uL Baso # (Auto) 0.03 (0.00-0.20) K/uL Immature Gran # (Auto) 0.04 (0.01-0.20) K/uL POC Sodium 136 (135-144) mmol/L Sodium 135 L (136-145) mmol/L POC Potassium 2.0 L* (3.3-5.0) mmol/L Potassium 2.2 L* (3.5-5.1) mmol/L POC Chloride 88 L (101-112) mmol/L Chloride 91 L (98-107) mmol/L Carbon Dioxide 28 (21-32) mmol/L POC Total CO2 27 (24-31) mmol/L Anion Gap 16 H (3-11) POC Anion Gap 24.0 (16-25) mmol/L POC BUN 7 (7-18) mg/dl BUN 10 (6-23) mg/dl Creatinine 0.95 (0.6-1.2) mg/dl POC Creatinine 0.9 (0.6-1.3) mg/dl Est Cr Clr Drug Dosing 56.6 ml/min eGFR 66.90 BUN/Creatinine Ratio 10.5 (10-20) Glucose 400 H* (70-99(Fasting)) mg/dl POC Glucose (other) 356 H* (70-99) mg/dl Calcium 7.7 L (8.6-10.3) mg/dl POC Ioniz Calcium Bessy 0.90 L (1.12-1.32) mmol/l Magnesium 1.0 L (1.7-2.4) mg/dl Total Bilirubin 0.5 (0.2-1.0) mg/dl AST 10 L (13-39) U/L ALT 9 (7-52) U/L Alkaline Phosphatase 126 H (34-104) U/L Troponin I High Sens 8.1 (0-14) pg/ml Total Protein 7.1 (6.0-8.3) gm/dl Albumin 3.3 L (3.4-5.0) gm/dl Globulin 3.8 (2.5-4.0) gm/dl Albumin/Globulin Ratio 0.9 (0.9-2) Lipase 7 L (11-82) U/L Administered Medications Acetaminophen (Acetaminophen 325 Mg Tab) 650 mg PO Q4H PRN PRN Reason: Pain or Fever Stop: 01/24/24 22:31 Last Admin: 12/30/23 05:33 Dose: 650 mg Documented By: DIRECTOR STAGE Admin: 12/29/23 20:37 Dose: 650 mg Documented By: DIRECTOR STAGE Admin: 12/28/23 21:18 Dose: 650 mg Documented By: Admin: 12/28/23 05:49 Dose: 650 mg Documented By: Admin: 12/27/23 13:42 Dose: 650 mg Documented By: Admin: 12/26/23 21:18 Dose: 650 mg Documented By: Admin: 12/26/23 00:27 Dose: 650 mg Documented By: BRODY Aspirin (Aspirin 81 Mg Ectab) 81 mg PO [facility] Stop: 01/25/24 08:59 Last Admin: 12/30/23 07:56 Dose: 81 mg Documented By: Admin: 12/29/23 08:23 Dose: 81 mg Documented By: Admin: 12/28/23 08:28 Dose: 81 mg Documented By: Admin: 12/27/23 08:10 Dose: 81 mg Documented By: Admin: 12/26/23 08:33 Dose: 81 mg Documented By: MES Atorvastatin Calcium (Atorvastatin 40 Mg Tab) 80 mg PO HS [facility] Stop: 01/25/24 20:59 Last Admin: 12/29/23 20:33 Dose: 80 mg Documented By: DIRECTOR STAGE Admin: 12/28/23 20:52 Dose: 80 mg Documented By: Admin: 12/27/23 20:42 Dose: 80 mg Documented By: Admin: 12/26/23 20:37 Dose: 80 mg Documented By: BRODY Bupropion HCl (Bupropion Xl 150 Mg Tabcr) [facility] [place]: 01/25/24 08:59 Last Admin: 12/30/23 07:56 Dose: 150 mg Documented By: Admin: 12/29/23 08:22 Dose: 150 mg Documented By: Admin: 12/28/23 08:28 Dose: 150 mg Documented By: Admin: 12/27/23 08:09 Dose: 150 mg Documented By: Admin: 12/26/23 08:35 Dose: 150 mg Documented By: MES Diclofenac Sodium (Diclofenac Sod 1% Gel 100 Gm Tube) 2 gm EXT BID TONI; Protocol Stop: 01/26/24 13:29 Last Admin: 12/30/23 07:57 Dose: 2 gm Documented By: Admin: 12/29/23 20:34 Dose: 2 gm Documented By: Admin: 12/29/23 08:23 Dose: 2 gm Documented By: Admin: 12/28/23 20:53 Dose: 2 gm Documented By: Admin: 12/28/23 08:29 Dose: 2 gm Documented By: Admin: 12/27/23 20:43 Dose: 2 gm Documented By: Admin: 12/27/23 13:39 Dose: 2 gm Documented By: ANDRE Escitalopram Oxalate (Escitalopram Oxalate 20 Mg Tab) 20 mg PO [facility] Stop: 01/25/24 08:59 Last Admin: 12/30/23 07:57 Dose: 20 mg Documented By: Admin: 12/29/23 08:23 Dose: 20 mg Documented By: Admin: 12/28/23 08:28 Dose: 20 mg Documented By: Admin: 12/27/23 08:09 Dose: 20 mg Documented By: Admin: 12/26/23 08:35 Dose: 20 mg Documented By: MES Folic Acid (Folic Acid 1 Mg Tab) 1 mg PO [facility] Stop: 01/25/24 08:59 Last Admin: 12/30/23 07:55 Dose: 1 mg Documented By: Admin: 12/29/23 08:23 Dose: 1 mg Documented By: Admin: 12/28/23 08:28 Dose: 1 mg Documented By: Admin: 12/27/23 08:09 Dose: 1 mg Documented By: Admin: 12/26/23 08:34 Dose: 1 mg Documented By: ANDRE Gabapentin (Gabapentin 100 Mg Cap) 200 mg PO BID TONI Stop: 01/25/24 08:59 Last Admin: 12/30/23 07:57 Dose: 200 mg Documented By: Admin: 12/29/23 20:34 Dose: 200 mg Documented By: Admin: 12/29/23 08:23 Dose: 200 mg Documented By: Admin: 12/28/23 20:52 Dose: 200 mg Documented By: Admin: 12/28/23 08:28 Dose: 200 mg Documented By: Admin: 12/27/23 20:42 Dose: 200 mg Documented By: Admin: 12/27/23 08:09 Dose: 200 mg Documented By: Admin: 12/26/23 20:37 Dose: 200 mg Documented By: Admin: 12/26/23 08:33 Dose: 200 mg Documented By: ANDRE Insulin Aspart (Insulin Aspart Per Unit Charge) 0 units SC ACHS TONI Stop: 01/25/24 00:00 Last Admin: 12/30/23 08:39 Dose: 1 units Documented By: GABRIELLE Co-signed By: TRU Admin: 12/29/23 20:34 Dose: Not Given Documented By: Admin: 12/29/23 17:21 Dose: 3 units Documented By: EMANUEL Co-signed By: ANDRE Admin: 12/29/23 12:27 Dose: 1 units Documented By: EMANUEL Co-signed By: KRISTINE Admin: 12/29/23 08:28 Dose: 9 units Documented By: EMANUEL Co-signed By: KRISTINE Admin: 12/28/23 20:53 Dose: 2 units Documented By: FOUZIA Co-signed By: SAL Admin: 12/28/23 17:07 Dose: 4 units Documented By: ARIN Co-signed By: KRISTINE Admin: 12/28/23 12:22 Dose: 3 units Documented By: ARIN Co-signed By: KRISTINE Admin: 12/28/23 08:36 Dose: 11 units Documented By: ARIN Co-signed By: REUBEN Admin: 12/27/23 20:43 Dose: 2 units Documented By: BRODY Co-signed By: SOCO Admin: 12/27/23 17:32 Dose: 4 units Documented By: MES Co-signed By: JOSTIN Admin: 12/27/23 12:41 Dose: 7 units Documented By: MES Co-signed By: LOKESH Admin: 12/27/23 08:29 Dose: 7 units Documented By: MES Co-signed By: ARIN Admin: 12/26/23 20:34 Dose: 2 units Documented By: BRODY Co-signed By: SOCO Admin: 12/26/23 18:26 Dose: 4 units Documented By: MES Co-signed By: MARIA ANTONIA Admin: 12/26/23 12:33 Dose: 8 units Documented By: MES Co-signed By: AASean Admin: 12/26/23 08:44 Dose: 6 units Documented By: MES Co-signed By: ARIN Admin: 12/26/23 00:27 Dose: 6 units Documented By: BRODY Co-signed By: GOLD Levothyroxine Sodium (Levothyroxine Sodium 88 Mcg Tablet) 88 mcg PO DAILYBB TONI Stop: 01/25/24 06:29 Last Admin: 12/30/23 05:32 Dose: 88 mcg Documented By: Admin: 12/29/23 05:54 Dose: 88 mcg Documented By: Admin: 12/28/23 05:47 Dose: 88 mcg Documented By: Admin: 12/27/23 06:14 Dose: 88 mcg Documented By: Admin: 12/26/23 06:10 Dose: 88 mcg Documented By: BRODY Magnesium Oxide (Magnesium Oxide 400 Mg Tab) 1,200 mg PO BID TONI Stop: 01/27/24 08:59 Last Admin: 12/30/23 07:56 Dose: 1,200 mg Documented By: Admin: 12/29/23 20:33 Dose: 1,200 mg Documented By: DIRECTOR STAGE Admin: 12/29/23 08:22 Dose: 1,200 mg Documented By: Admin: 12/28/23 20:52 Dose: 1,200 mg Documented By: Admin: 12/28/23 08:40 Dose: Not Given Documented By: ARIN Meclizine HCl (Meclizine 12.5 Mg Tab) 12.5 mg PO Q8 PRN PRN Reason: Dizziness or Vertigo Stop: 01/26/24 12:53 Last Admin: 12/29/23 05:57 Dose: 12.5 mg Documented By: Admin: 12/28/23 21:18 Dose: 12.5 mg Documented By: Admin: 12/28/23 12:23 Dose: 12.5 mg Documented By: Admin: 12/27/23 22:00 Dose: 12.5 mg Documented By: Admin: 12/27/23 13:37 Dose: 12.5 mg Documented By: MES Meclizine HCl (Meclizine 12.5 Mg Tab) 12.5 mg PO TID TONI Stop: 01/28/24 13:59 Last Admin: 12/30/23 07:54 Dose: 12.5 mg Documented By: Admin: 12/29/23 20:34 Dose: 12.5 mg Documented By: DIRECTOR STAGE Admin: 12/29/23 13:31 Dose: 12.5 mg Documented By: PK Metformin HCl (Metformin Hcl Er 500 Mg Tabcr) 1,000 mg PO BIDM TONI Stop: 01/28/24 10:14 Last Admin: 12/30/23 07:55 Dose: 1,000 mg Documented By: Admin: 12/29/23 17:22 Dose: 1,000 mg Documented By: Admin: 12/29/23 12:13 Dose: 1,000 mg Documented By: PK Ondansetron HCl (Ondansetron Inj 2 Mg/Ml 2 Ml Vial) 4 mg IV Q6H PRN PRN Reason: Nausea Stop: 01/24/24 22:31 Last Admin: 12/30/23 07:52 Dose: 4 mg Documented By: Admin: 12/29/23 07:21 Dose: 4 mg Documented By: Admin: 12/28/23 07:26 Dose: 4 mg Documented By: Admin: 12/26/23 16:55 Dose: 4 mg Documented By: MES Polyethylene Glycol (Polyethylene (Miralax) 17 Gm Pack) 17 gm PO DAILY PRN PRN Reason: Constipation Stop: 01/26/24 12:53 Last Admin: 12/30/23 09:23 Dose: 17 gm Documented By: Admin: 12/27/23 16:52 Dose: 17 gm Documented By: ANDRE Ticagrelor (Ticagrelor 90 Mg Tab) 90 mg PO BID TONI Stop: 01/25/24 08:59 Last Admin: 12/30/23 09:23 Dose: 90 mg Documented By: Admin: 12/29/23 20:33 Dose: 90 mg Documented By: Admin: 12/29/23 09:41 Dose: 90 mg Documented By: Admin: 12/28/23 20:52 Dose: 90 mg Documented By: Admin: 12/28/23 08:28 Dose: 90 mg Documented By: Admin: 12/27/23 20:42 Dose: 90 mg Documented By: Admin: 12/27/23 08:09 Dose: 90 mg Documented By: Admin: 12/26/23 20:37 Dose: 90 mg Documented By: Admin: 12/26/23 08:35 Dose: 90 mg Documented By: ANDRE Tramadol HCl (Tramadol Hcl 50 Mg Tablet) 50 mg PO Q6H PRN PRN Reason: Moderate Pain (Scale 4, 5, 6) Stop: 01/24/24 22:31 Last Admin: 12/27/23 23:50 Dose: 50 mg Documented By: ALEXIA Vitamin D (Cholecalciferol 25 Mcg (1000 Units) Tab) 25 mcg PO QAM TONI Stop: 01/25/24 08:59 Last Admin: 12/30/23 07:55 Dose: 25 mcg Documented By: Admin: 12/29/23 08:22 Dose: 25 mcg Documented By: Admin: 12/28/23 08:28 Dose: 25 mcg Documented By: Admin: 12/27/23 08:09 Dose: 25 mcg Documented By: Admin: 12/26/23 08:35 Dose: 25 mcg Documented By: ANDRE Discontinued Medications Fentanyl Citrate (Fentanyl Citrate Pf 100 Mcg/2 Ml Vial) 25 mcg IV NOW ONE Stop: 12/25/23 19:32 Last Admin: 12/25/23 19:46 Dose: 25 mcg Documented By: MARY Potassium Chloride (K Esa / Wtr) 10 meq in 100 mls @ 100 mls/hr IV Q1H TONI; Protocol Stop: 12/25/23 23:59 Last Admin: 12/25/23 21:34 Dose: Not Given Documented By: MARY Calcium Gluconate () 1,000 mg in 60 mls @ 240 mls/hr IV NOW STA Stop: 12/25/23 21:00 Last Infusion: 12/25/23 21:40 Dose: Infused Documented By: Admin: 12/25/23 21:21 Dose: 240 mls/hr Documented By: GAYLAGlenroy Potassium Chloride/Sodium Chloride (Normal Saline W/20 Meq Kcl) 20 meq in 1,000 mls @ 100 mls/hr IV .Q10H TONI Stop: 12/26/23 14:14 Last Infusion: 12/26/23 15:27 Dose: Infused Documented By: Admin: 12/26/23 04:50 Dose: 100 mls/hr Documented By: BRODY Magnesium Sulfate/Dextrose (Magnesium Sulfate / D5w) 1 gm in 100 mls @ 50 mls/hr IV Q2H TONI Stop: 12/26/23 12:14 Last Infusion: 12/26/23 13:09 Dose: Infused Documented By: Admin: 12/26/23 10:33 Dose: 50 mls/hr Documented By: Infusion: 12/26/23 10:31 Dose: Infused Documented By: Admin: 12/26/23 08:31 Dose: 50 mls/hr Documented By: Infusion: 12/26/23 08:10 Dose: Infused Documented By: Admin: 12/26/23 06:10 Dose: 50 mls/hr Documented By: Infusion: 12/26/23 06:10 Dose: Infused Documented By: Admin: 12/26/23 04:50 Dose: 50 mls/hr Documented By: BRODY Ioversol (Optiray 320 100ml) 94 ml IV ONCE ONE Stop: 12/25/23 20:28 Last Admin: 12/25/23 20:27 Dose: 94 ml Documented By: CAMILLA Magnesium Oxide (Magnesium Oxide 400 Mg Tab) 1,200 mg PO DAILY TONI Stop: 01/25/24 08:59 Last Admin: 12/28/23 08:28 Dose: 1,200 mg Documented By: Admin: 12/27/23 08:09 Dose: 1,200 mg Documented By: Admin: 12/26/23 08:33 Dose: 1,200 mg Documented By: MES Ondansetron HCl (Ondansetron Inj 2 Mg/Ml 2 Ml Vial) 4 mg IV NOW STA Stop: 12/25/23 19:32 Last Admin: 12/25/23 19:44 Dose: 4 mg Documented By: HB Potassium Chloride (Potassium Chloride Crtab 20 Meq Tabcr) 40 meq PO NOW STA Stop: 12/25/23 21:18 Last Admin: 12/25/23 21:28 Dose: 40 meq Documented By: TJS Potassium Chloride (Potassium Chloride Crtab 20 Meq Tabcr) 40 meq PO ONE ONE Stop: 12/25/23 22:01 Last Admin: 12/25/23 22:06 Dose: 40 meq Documented By: HB Potassium Chloride (Potassium Chloride Crtab 20 Meq Tabcr) 40 meq PO NOW STA Stop: 12/26/23 08:25 Last Admin: 12/26/23 08:42 Dose: 40 meq Documented By: MES Simethicone (Simethicone 80 Mg Chew) 40 mg PO NOW ONE Stop: 12/29/23 16:46 Last Admin: 12/29/23 16:35 Dose: 40 mg Documented By: PK Imaging Data Radiologist's Impression: Abdomen/Pelvis CT 12/25/23 19:30 Exam(s): CT ABDOMEN + PELVIS With Contrast IV Amt: 94 ML OPTIRAY 320 EXAM: CT Abdomen and Pelvis With Intravenous Contrast CLINICAL HISTORY: Reason for exam: mid ab pain, n/v. TECHNIQUE: Axial computed tomography images of the abdomen and pelvis with intravenous contrast. CTDI is 26.72 mGy and DLP is 1190.88 mGy-cm. Automated exposure control was utilized for the study. A dose lowering technique was utilized adhering to the principles of ALARA. CONTRAST: Patient received 94 ML OPTIRAY 320 of IV contrast COMPARISON: 10/04/23 FINDINGS: Lung bases: Unremarkable. ABDOMEN: Liver: Unremarkable. No mass. Gallbladder and bile ducts: Cholecystectomy. No ductal dilation. Pancreas: Unremarkable. No mass. No ductal dilation. Spleen: Unremarkable. No splenomegaly. Adrenals: Unremarkable. No mass. Kidneys and ureters: Symmetric renal enhancement. No hydronephrosis. Small simple left kidney cyst; no follow-up indicated. Stomach and bowel: No bowel obstruction. Distal colonic diverticulosis. No mucosal thickening. PELVIS: Appendix: Normal appendix. Bladder: Unremarkable. No mass. Reproductive: Calcified right-sided uterine fibroid. ABDOMEN and PELVIS: Intraperitoneal space: Unremarkable. No free air, significant free fluid, or fluid collection. Bones/joints: No acute fracture. No dislocation. Soft tissues: Unremarkable. Vasculature: Atherosclerosis of the aorta without aneurysm. Lymph nodes: Unremarkable. No enlarged lymph nodes. IMPRESSION: No acute findings in the abdomen or pelvis. Electronically signed by: Wallace Longo M.D. 12/25/23 22:37 PM Discharge Plan Visit Data Chief Complaint: Illness ED Provider: Sincere Gatica Discharge Problem: Acute hyperglycemia, Hypomagnesemia, Nausea & vomiting, Abdominal pain, Hypokalemia Patient Disposition: Admitted As Inpatient Discharge Instructions Interventions: ED Discharge Assessment Last Done: 12/25/23 22:48 Discharge Problem: Nausea & vomiting Qualifiers: Vomiting type: unspecified Qualified Code(s): R11.2 - Nausea with vomiting, unspecified Abdominal pain Qualifiers: Abdominal location: epigastric Qualified Code(s): R10.13 - Epigastric pain
[2023-12-25] MEDS: ONDANSETRON INJ 2 MG/ML 2 ML VIAL IV STA (19:44)
[2023-12-25] MEDS: fentaNYL citrate PF 100 MCG/2 ML VIAL IV ONE (19:46)
[2023-12-25 19:49] LABS: Basophils # (auto) 0.03 K/uL (0.00-0.20); Basophils % (auto) 0.3 %; Eosinophils # (auto) 0.07 K/uL (0.00-0.50); Eosinophils % (auto) 0.6 %; Hematocrit (blood only) 34.7 % (37.0-47.0); Hemoglobin 11.8 g/dl (12.0-16.0); Immature Granulocytes # (auto) 0.04 K/uL (0.01-0.20); Immature Granulocytes % (auto) 0.3 %; Lymphocytes # (auto) 2.13 K/uL (1.20-3.40); Lymphocytes % (auto) 18.5 %; Mean Corpuscular Hemoglobin 28.5 pg (25.0-34.0); Mean Corpuscular Volume 83.8 fL (80.0-100.0); Mean Platelet Volume 9.9 fL (9.4-12.4); Monocytes # (auto) 0.73 K/uL (0.11-0.59); Monocytes % (auto) 6.3 %; Neutrophils # (auto) 8.53 K/uL (1.40-6.50); Platelet Count 324 K/uL (130-400); RDW Coefficient of Variation 13.2 % (11.5-14.5); RDW Standard Deviation 40.7 fL (36.4-46.3); Red Blood Count 4.14 M/uL (4.20-5.40); White Blood Count 11.53 K/ul (4.8-10.8)
[2023-12-25 20:09] LABS: Albumin Globulin Ratio 0.9 (0.9-2); Albumin Level 3.3 gm/dl (3.4-5.0); BUN Creatinine Ratio 10.5 (10-20); Bilirubin,Total 0.5 mg/dl (0.2-1.0); Calcium 7.7 mg/dl (8.6-10.3); Creatinine Clr Calc Pharmacy 56.6 ml/min; Globulin 3.8 gm/dl (2.5-4.0); Potassium 2.2 mmol/L (3.5-5.1); Total Protein 7.1 gm/dl (6.0-8.3)
[2023-12-25 20:11] LABS: iSTAT Creatinine 0.9 mg/dl (0.6-1.3); iSTAT Hemoglobin 10.5 g/dl (12.0-16.0); iSTAT Ionized Calcium 0.9 mmol/l (1.12-1.32)
[2023-12-25 20:14] LABS: Troponin I High Sensitivity 8.1 pg/ml (0-14)
[2023-12-25] MEDS: OPTIRAY 320 100ml IV ONE (20:27)
[2023-12-25] MEDS: CALCIUM GLUCONATE 1,000 MG/60 ML BAG IV STA (21:21)
[2023-12-25] MEDS: POTASSIUM CHLORIDE CRTAB 20 MEQ TABCR PO STA (21:28)
[2023-12-25] MEDS: POTASSIUM CHLORIDE / WTR 10 MEQ/100 ML PLCT IV SCH (21:34)
--- NOTE | 2023-12-25 21:38 | History & Physical Report ---
Date of Service December 25, 2023 Assessment & Plan (1) Hypomagnesemia: (2) Hypokalemia: (3) Hyperglycemia due to type 2 diabetes mellitus: (4) Abdominal pain: (5) Diarrhea: Plan Electrolyte disturbances- Potassium 2.2 on admission, will receive Klor-Con 40 mEq p.o. x 2, then NSS + KCl 20 mill equivalents at 100 mL/h Magnesium 1.0, will give magnesium sulfate 4 g IV, and then recheck laboratories CT scan of abdomen pelvis is negative, the patient reports issues with abdominal discomfort and has briefly some loose stools May have an element of diabetic gastroparesis associated And also related to hyperglycemia and uncontrolled diabetes mellitus Hyperglycemia in diabetes mellitus- Glucose 400 admission, will hold Januvia, semaglutide, metformin and glimepiride Placed on Accu-Cheks with NovoLog SSI IV fluids as noted above Medical noncompliance- Likely plays a significant part History of Present Illness Chief Complaint: The patient presents to the emergency department via ambulance due to concern regarding abdominal pain, diarrhea, lightheadedness and dizziness that began about 3 days ago, and is now worsened for the past 24 hours. She feels generally weak and fatigued, and feels off balance when trying to walk. Primary Care Provider: Jc Zaman, The patient is a 63-year-old female with a past medical history including tobacco use, hyperglycemia, vitamin D deficiency, diabetes mellitus, medical noncompliance, delusional disorder, coronary disease status post coronary artery stent placement. Patient presents to the emergency department with symptoms as noted above. Allergies Allergy/AdvReac Type Severity Reaction Status Date / Time dulaglutide [From Trulicity] AdvReac Intermediate stomach Verified 11/14/23 13:47 pain albiglutide [From Tanzeum] AdvReac Unknown CAN'T Verified 11/14/23 13:47 REMEMBER Home Medications Medication Instructions Recorded Confirmed Type blood-glucose meter (Prodigy 10/15/21 12/01/23 History Autocode Meter kit) aspirin 81 mg tablet,delayed 81 mg PO QAM #30 tabs 10/29/22 12/01/23 Rx release acetaminophen 500 mg tablet 1,000 mg PO Q8H PRN Pain 01/23/23 12/01/23 History (Pharbetol) atorvastatin 80 mg tablet 80 mg PO HS 01/23/23 12/01/23 History diclofenac sodium 1 % topical gel 2 g EXT QID PRN Pain 02/28/23 12/01/23 History (Voltaren Arthritis Pain) levothyroxine 88 mcg tablet 88 mcg PO DAILYBB 02/28/23 12/01/23 History folic acid 1 mg tablet 1 mg PO QAM #90 tabs 04/07/23 12/01/23 Rx bupropion HCl 150 mg 24 hr tablet, 150 mg PO QAM 90 days #90 tabs 05/05/23 12/01/23 Rx extended release ticagrelor 90 mg tablet (Brilinta) 90 mg PO BID #60 tabs 08/11/23 12/01/23 Rx pen needle, diabetic 32 gauge x #200 ea 08/22/23 12/01/23 Rx 5/32" (BD Ultra-Fine Cary Pen Needle) escitalopram oxalate 20 mg tablet 20 mg PO QAM #30 tabs 09/06/23 12/01/23 Rx polyethylene glycol 3350 17 gram 34 g PO DAILY Constipation #0 ea 09/06/23 12/01/23 Rx oral powder packet (Miralax) famotidine 20 mg tablet 20 mg PO DIRECTED PRN Acid 10/04/23 12/01/23 History Reflux gabapentin 100 mg capsule 200 mg PO BID 10/04/23 12/01/23 History tramadol 50 mg tablet 50 mg PO Q6H PRN Pain 10/04/23 12/01/23 History cholecalciferol (vitamin D3) 25 25 mcg PO QAM #0 caps 10/07/23 12/01/23 Rx mcg (1,000 unit) capsule metformin 500 mg tablet,extended 1,000 mg (2 x 500 mg) PO BID #360 10/23/23 12/01/23 Rx release 24 hr tabs glimepiride 2 mg tablet 4 mg (2 x 2 mg) PO UD 90 days #180 11/16/23 12/01/23 Rx tabs sitagliptin phosphate 100 mg 100 mg PO DAILY 90 days #90 tabs 11/16/23 12/01/23 Rx tablet (Januvia) magnesium oxide 400 mg (241.3 mg 1,200 mg (3 x 400 mg (241.3 mg 11/18/23 12/01/23 Rx magnesium) tablet magnesium)) PO DAILY #270 tabs docusate sodium 100 mg capsule 100 mg PO BID #60 caps 12/23/23 Rx gabapentin 300 mg capsule 600 mg (2 x 300 mg) PO BID #60 caps 12/23/23 Rx Past Med/Surg History Problem List (Updated 12/26/23 @ 04:09 by Laurent Gaytan MD) Diarrhea SAMRA (acute kidney injury) (Acute) Tobacco use Prolonged QT interval (Acute) Hyperglycemia due to type 2 diabetes mellitus (Acute) Hypomagnesemia (Acute) Hypertension Chronic constipation Vitamin D deficiency Diabetes mellitus type 2 in obese Hyperglycemia due to type 2 diabetes mellitus Noncompliance (Chronic) Non compliance with medical treatment (Chronic) Delusional disorder Severe protein-calorie malnutrition Vertigo Dysphagia Early satiety Depression Anxiety (Chronic) Vitamin B12 deficiency Serum gamma globulin increased Psoriasis Obesity Low back pain Drug-induced tremor Arthralgia of multiple sites Tobacco abuse (Chronic) Diabetes type 2, uncontrolled IDDM Postmenopausal bleeding Thickened endometrium Mass of soft tissue Cervical mass Status post insertion of drug-eluting stent into left anterior descending (LAD) artery Chronic vulvitis S/P coronary artery stent placement (Chronic) 2 CHANTAL to LAD 10/22/2020 Diabetic nephropathy associated with type 2 diabetes mellitus Back pain Failure to thrive in adult Medical History (Updated 12/26/23 @ 04:09 by Laurent Gaytan MD) Ventricular tachycardia Weakness Fall Cigarette smoker CAD (coronary artery disease) No remaining occlusive disease after 2 LAD drug eluting stents 10/22/20. Follows with Dr. Harris Hypothyroidism Diabetes mellitus GERD (gastroesophageal reflux disease) Acute on chronic combined systolic and diastolic CHF (congestive heart failure) Bradycardia with 41-50 beats per minute Accelerated hypertension Depression Osteoarthritis Chronic headaches NSTEMI (non-ST elevated myocardial infarction) 10/22/2020 s/p 2 CHANTAL Vulvitis Dyslipidemia Surgical History History of cardiac catheterization 10/22/2020 Dominant: Right Left Main (% Stenosis): Normal LAD (% Stenosis): Proximal (99) and Mid (75) Circumflex (% Stenosis): Normal (luminal irregularities) RCA (% Stenosis): Normal (Luminal irregularities) 2 CHANTAL to LAD History of cholecystectomy History of dental surgery History of tonsillectomy Family History Unknown Diabetes Thyroid disorder Father Diabetes Other No family history of adverse response to anesthesia Denies family history of Ovarian cancer Prostate cancer Breast cancer Colorectal cancer Uterine cancer Social History (Updated 10/24/23 @ 13:10 by Adelia Wyatt LPN) Smoking Status: Current every day smoker Tobacco Type: Cigarettes Age Started Using Tobacco: 24; Age Quit Using Tobacco: 1; packs per day: 0.5; Cigarettes Per Day: 5; Second Hand Exposure: No; Do You Dip or Chew Tobacco: No; Tobacco Cessation Education Requested by Patient: No Hx Alcohol Use: No Hx Substance Use: No Preferred Language: Lithuanian Communication Ability: Effective Visual Impairment: No Limitations [employer] Professor Required: No Beliefs That Will Affect Care: None marital status: Single Current Living Situation: Alone Current Living Situation Comment: lives in trailer current occupational status: disabled How many Children do You have: 0 Other Information That Helps Us Care for You: No Feels Safe at Home: Yes Safety Concerns: Feels Safe At This Time Safety Concerns Comment: Gets nervous sometimes because she lives alone, gets shaky from anxiety Diet: regular caffeine: Yes Dental Care, Regularly: No Physical Activity Frequency: Does not Exercise Seatbelt Use: always Sunscreen Use: No Assistive Devices: Glasses and Walker Review of Systems Review of Systems: The patient denies chest pain, palpitations, cough, lower extremity swelling, sore throat, fevers, chills, sweats, vomiting, blood in urine or stool, dysuria, urinary frequency or urgency, lightheadedness, dizziness, headache, memory loss, loss of consciousness, rash, abnormal bruising or bleeding, focal or weakness, numbness or tingling in arms or legs, generalized arthralgias or myalgias, back or neck pain, or night sweats. The review of systems is otherwise negative other than for that already noted above, and at least 10 systems have been reviewed. Physical Exam Physical Exam: The patient is awake, alert and oriented 3, well developed and well nourished, normocephalic and atraumatic, lying in bed and in no acute distress. HEENT--PERRL, EOMI, mucous membranes and oropharynx dry. Neck--supple. No JVD. No bruits. Thyroid normal, trachea midline, no adenopathy. Heart--normal S1 and S2. No murmurs, rubs or gallops. Lungs--clear bilaterally, no respiratory distress, no accessory muscle use. Abdomen--normal bowel sounds and soft. Nontender. Nondistended Extremities--no cyanosis or clubbing. No edema. Dermatologic--normal skin turgor, normal color, no abnormal lymph nodes, no rash. Neurologic--cranial nerves II through XII grossly intact. Rheumatologic--normal range of motion. Psychiatric--normal affect. Results & Data Results & Data Vital Signs (Past 12 Hours) Vital Signs Temp Pulse Resp BP Pulse Ox O2 Del Method 12/25/23 19:56 84 12/25/23 19:28 95 Room Air 12/25/23 18:44 36.9 C 92 H 18 162/94 H 97 Room Air Laboratory Results Laboratory Results WBC 11.53 K/ul (4.8-10.8) H 12/25/23 18:40 RBC 4.14 M/uL (4.20-5.40) L 12/25/23 18:40 Hgb 11.8 g/dl (12.0-16.0) L 12/25/23 18:40 POC Hgb 10.5 g/dl (12.0-16.0) L 12/25/23 19:58 Hct 34.7 % (37.0-47.0) L 12/25/23 18:40 POC Hct 31 % (37-47) L 12/25/23 19:58 MCV 83.8 fL (80.0-100.0) 12/25/23 18:40 MCH 28.5 pg (25.0-34.0) 12/25/23 18:40 MCHC 34.0 g/dL (32.0-36.0) 12/25/23 18:40 RDW Std Deviation 40.7 fL (36.4-46.3) 12/25/23 18:40 RDW Coeff of Umair 13.2 % (11.5-14.5) 12/25/23 18:40 Plt Count 324 K/uL (130-400) 12/25/23 18:40 MPV 9.9 fL (9.4-12.4) 12/25/23 18:40 Immature Gran % (Auto) 0.3 % 12/25/23 18:40 Neut % (Auto) 74.0 % 12/25/23 18:40 Lymph % (Auto) 18.5 % 12/25/23 18:40 Christian % (Auto) 6.3 % 12/25/23 18:40 Eos % (Auto) 0.6 % 12/25/23 18:40 Baso % (Auto) 0.3 % 12/25/23 18:40 Neut # (Auto) 8.53 K/uL (1.40-6.50) H 12/25/23 18:40 Lymph # (Auto) 2.13 K/uL (1.20-3.40) 12/25/23 18:40 Christian # (Auto) 0.73 K/uL (0.11-0.59) H 12/25/23 18:40 Eos # (Auto) 0.07 K/uL (0.00-0.50) 12/25/23 18:40 Baso # (Auto) 0.03 K/uL (0.00-0.20) 12/25/23 18:40 Immature Gran # (Auto) 0.04 K/uL (0.01-0.20) 12/25/23 18:40 POC Sodium 136 mmol/L (135-144) 12/25/23 19:58 Sodium 135 mmol/L (136-145) L 12/25/23 18:40 POC Potassium 2.0 mmol/L (3.3-5.0) L* 12/25/23 19:58 Potassium 2.2 mmol/L (3.5-5.1) L* 12/25/23 18:40 POC Chloride 88 mmol/L (101-112) L 12/25/23 19:58 Chloride 91 mmol/L (98-107) L 12/25/23 18:40 Carbon Dioxide 28 mmol/L (21-32) 12/25/23 18:40 POC Total CO2 27 mmol/L (24-31) 12/25/23 19:58 Anion Gap 16 (3-11) H 12/25/23 18:40 POC Anion Gap 24.0 mmol/L (16-25) 12/25/23 19:58 POC BUN 7 mg/dl (7-18) 12/25/23 19:58 BUN 10 mg/dl (6-23) 12/25/23 18:40 Creatinine 0.95 mg/dl (0.6-1.2) 12/25/23 18:40 POC Creatinine 0.9 mg/dl (0.6-1.3) 12/25/23 19:58 Est Cr Clr Drug Dosing 56.6 ml/min 12/25/23 18:40 eGFR 66.90 12/25/23 18:40 BUN/Creatinine Ratio 10.5 (10-20) 12/25/23 18:40 Glucose 400 mg/dl (70-99(Fasting)) H* 12/25/23 18:40 POC Glucose 248 mg/dl (70-99) H 12/26/23 00:18 POC Glucose (other) 356 mg/dl (70-99) H* 12/25/23 19:58 Calcium 7.7 mg/dl (8.6-10.3) L 12/25/23 18:40 POC Ioniz Calcium Bessy 0.90 mmol/l (1.12-1.32) L 12/25/23 19:58 Magnesium 1.0 mg/dl (1.7-2.4) L 12/25/23 18:40 Total Bilirubin 0.5 mg/dl (0.2-1.0) 12/25/23 18:40 AST 10 U/L (13-39) L 12/25/23 18:40 ALT 9 U/L (7-52) 12/25/23 18:40 Alkaline Phosphatase 126 U/L (34-104) H 12/25/23 18:40 Troponin I High Sens 8.1 pg/ml (0-14) 12/25/23 18:40 Total Protein 7.1 gm/dl (6.0-8.3) 12/25/23 18:40 Albumin 3.3 gm/dl (3.4-5.0) L 12/25/23 18:40 Globulin 3.8 gm/dl (2.5-4.0) 12/25/23 18:40 Albumin/Globulin Ratio 0.9 (0.9-2) 12/25/23 18:40 Lipase 7 U/L (11-82) L 12/25/23 18:40 Impressions Abdomen/Pelvis CT 12/25/23 19:30 Exam(s): CT ABDOMEN + PELVIS With Contrast IV Amt: 94 ML OPTIRAY 320 EXAM: CT Abdomen and Pelvis With Intravenous Contrast CLINICAL HISTORY: Reason for exam: mid ab pain, n/v. TECHNIQUE: Axial computed tomography images of the abdomen and pelvis with intravenous contrast. CTDI is 26.72 mGy and DLP is 1190.88 mGy-cm. Automated exposure control was utilized for the study. A dose lowering technique was utilized adhering to the principles of ALARA. CONTRAST: Patient received 94 ML OPTIRAY 320 of IV contrast COMPARISON: 10/04/23 FINDINGS: Lung bases: Unremarkable. ABDOMEN: Liver: Unremarkable. No mass. Gallbladder and bile ducts: Cholecystectomy. No ductal dilation. Pancreas: Unremarkable. No mass. No ductal dilation. Spleen: Unremarkable. No splenomegaly. Adrenals: Unremarkable. No mass. Kidneys and ureters: Symmetric renal enhancement. No hydronephrosis. Small simple left kidney cyst; no follow-up indicated. Stomach and bowel: No bowel obstruction. Distal colonic diverticulosis. No mucosal thickening. PELVIS: Appendix: Normal appendix. Bladder: Unremarkable. No mass. Reproductive: Calcified right-sided uterine fibroid. ABDOMEN and PELVIS: Intraperitoneal space: Unremarkable. No free air, significant free fluid, or fluid collection. Bones/joints: No acute fracture. No dislocation. Soft tissues: Unremarkable. Vasculature: Atherosclerosis of the aorta without aneurysm. Lymph nodes: Unremarkable. No enlarged lymph nodes. IMPRESSION: No acute findings in the abdomen or pelvis. Electronically signed by: Wallace Longo M.D. 12/25/23 22:37 PM Code Status & VTE Plan Code Status Full code VTE Prophylaxis Plan VTE Prophylaxis will be ordered: Yes PG Care Time/CCT Total # of Minutes Spent Total Time Spent with Patient: Total time spent is greater than 50% in coordination of care (as documented) at patient's floor/unit and/or counseling patient: Coding Level of Care Code 82717 INT INP/OBS CARE 3/75MIN Diagnoses Hypomagnesemia E83.42 Hypokalemia E87.6 Hyperglycemia due to type 2 diabetes mellitus E11.65; Z79.4 Diabetes mellitus oysterman insulin use: with fci use Abdominal pain R10.84 Abdominal location: generalized Diarrhea R19.7 (3) Hyperglycemia due to type 2 diabetes mellitus Diabetes mellitus oysterman insulin use: with oysterman use Qualified Code(s): E11.65 - Type 2 diabetes mellitus with hyperglycemia; Z79.4 - half-way (current) use of insulin (4) Abdominal pain Abdominal location: generalized Qualified Code(s): R10.84 - Generalized abdominal pain
[2023-12-25] MEDS: POTASSIUM CHLORIDE CRTAB 20 MEQ TABCR PO ONE (22:06)
[2023-12-25] MEDS ORDERED: GLUCOSE 40% GEL 15 GM TUBE PO PRN (22:32)
[2023-12-25] MEDS ORDERED: GLUCOSE 10 TAB/TUBE PO PRN (22:32)
[2023-12-25] MEDS ORDERED: GLUCAGON FOR INJ 1 MG VIAL SQ PRN (22:32)
[2023-12-25] MEDS ORDERED: CARBOHYDRATES FOR HYPOGLYCEMIA PO PRN (22:32)
[2023-12-25] MEDS ORDERED: DEXTROSE 50% 50 ML SYRINGE IV PRN (22:32)
--- NOTE | 2023-12-25 22:38 | CT Scan Report ---
Exam(s): CT ABDOMEN + PELVIS With Contrast IV Amt: 94 ML OPTIRAY 320 EXAM: CT Abdomen and Pelvis With Intravenous Contrast CLINICAL HISTORY: Reason for exam: mid ab pain, n/v. TECHNIQUE: Axial computed tomography images of the abdomen and pelvis with intravenous contrast. CTDI is 26.72 mGy and DLP is 1190.88 mGy-cm. Automated exposure control was utilized for the study. A dose lowering technique was utilized adhering to the principles of ALARA. CONTRAST: Patient received 94 ML OPTIRAY 320 of IV contrast COMPARISON: 10/04/23 FINDINGS: Lung bases: Unremarkable. ABDOMEN: Liver: Unremarkable. No mass. Gallbladder and bile ducts: Cholecystectomy. No ductal dilation. Pancreas: Unremarkable. No mass. No ductal dilation. Spleen: Unremarkable. No splenomegaly. Adrenals: Unremarkable. No mass. Kidneys and ureters: Symmetric renal enhancement. No hydronephrosis. Small simple left kidney cyst; no follow-up indicated. Stomach and bowel: No bowel obstruction. Distal colonic diverticulosis. No mucosal thickening. PELVIS: Appendix: Normal appendix. Bladder: Unremarkable. No mass. Reproductive: Calcified right-sided uterine fibroid. ABDOMEN and PELVIS: Intraperitoneal space: Unremarkable. No free air, significant free fluid, or fluid collection. Bones/joints: No acute fracture. No dislocation. Soft tissues: Unremarkable. Vasculature: Atherosclerosis of the aorta without aneurysm. Lymph nodes: Unremarkable. No enlarged lymph nodes. IMPRESSION: No acute findings in the abdomen or pelvis. Electronically signed by: Wallace Longo M.D. 12/25/23 22:37 PM
[2023-12-26] MEDS: INSULIN ASPART PER UNIT CHARGE SC SCH (00:27)
[2023-12-26] MEDS: ACETAMINOPHEN 325 MG TAB PO PRN (00:27)
[2023-12-26] MEDS: MAGNESIUM SULFATE / D5W 1 GM/100 ML BAG IV SCH (04:50)
[2023-12-26] MEDS: NSS + 20MEQ KCL 20 MEQ/1,000 ML BAG IV SCH (04:50)
[2023-12-26] MEDS: LEVOTHYROXINE SODIUM 88 MCG TABLET PO SCH (06:10)
[2023-12-26 06:40] LABS: Albumin Level 2.9 gm/dl (3.4-5.0); Calcium 7.6 mg/dl (8.6-10.3); Creatinine Clr Calc Pharmacy 59.3 ml/min; Magnesium 1.3 mg/dl (1.7-2.4); Phosphorus 3.9 mg/dl (2.5-4.9); Potassium 2.8 mmol/L (3.5-5.1)
[2023-12-26 06:41] LABS: Basophils # (auto) 0.03 K/uL (0.00-0.20); Basophils % (auto) 0.4 %; Eosinophils # (auto) 0.18 K/uL (0.00-0.50); Eosinophils % (auto) 2.2 %; Hematocrit (blood only) 30.6 % (37.0-47.0); Hemoglobin 10.7 g/dl (12.0-16.0); Immature Granulocytes # (auto) 0.03 K/uL (0.01-0.20); Immature Granulocytes % (auto) 0.4 %; Lymphocytes # (auto) 2.15 K/uL (1.20-3.40); Lymphocytes % (auto) 25.7 %; Mean Corpuscular Hemoglobin 29.1 pg (25.0-34.0); Mean Corpuscular Volume 83.2 fL (80.0-100.0); Monocytes # (auto) 0.61 K/uL (0.11-0.59); Monocytes % (auto) 7.3 %; Neutrophils # (auto) 5.36 K/uL (1.40-6.50); Platelet Count 286 K/uL (130-400); RDW Coefficient of Variation 13.3 % (11.5-14.5); RDW Standard Deviation 40.7 fL (36.4-46.3); Red Blood Count 3.68 M/uL (4.20-5.40); White Blood Count 8.36 K/ul (4.8-10.8)
[2023-12-26 07:15] LABS: Estimated Average Glucose 260 mg/dl; Hemoglobin A1C 10.7 % (4.5-5.6)
[2023-12-26] MEDS: GABAPENTIN 100 MG CAP PO SCH (08:33)
[2023-12-26] MEDS: MAGNESIUM OXIDE 400 MG TAB PO SCH (08:33)
[2023-12-26] MEDS: ASPIRIN 81 MG ECTAB PO SCH (08:33)
[2023-12-26] MEDS: FOLIC ACID 1 MG TAB PO SCH (08:34)
[2023-12-26] MEDS: TICAGRELOR 90 MG TAB PO SCH (08:35)
[2023-12-26] MEDS: buPROPion XL 150 MG TABCR PO SCH (08:35)
[2023-12-26] MEDS: ESCITALOPRAM OXALATE 20 MG TAB PO SCH (08:35)
[2023-12-26] MEDS: CHOLECALCIFEROL 25 MCG (1000 UNITS) TAB PO SCH (08:35)
[2023-12-26] MEDS: POTASSIUM CHLORIDE CRTAB 20 MEQ TABCR PO STA (08:42)
[2023-12-26] MEDS ORDERED: GABAPENTIN 300 MG CAP PO SCH (09:00)
--- NOTE | 2023-12-26 13:34 | Electrocardiogram Report ---
Test Reason : Blood Pressure : */* mmHG Vent. Rate : 86 BPM Atrial Rate : 86 BPM P-R Int : 154 ms QRS Dur : 70 ms QT Int : 426 ms P-R-T Axes : 44 26 17 degrees QTcB Int : 509 ms Normal sinus rhythm T wave abnormality, consider anterolateral ischemia Abnormal ECG When compared with ECG of 04-Oct-2023 11:02, T wave inversion now evident in Inferior leads T wave inversion now evident in Anterolateral leads Confirmed by King Paul ([id number]) on 12/26/2023 1:34:22 PM Referred By: REFERRED SELF Confirmed By: King Paul
--- NOTE | 2023-12-26 15:53 | Hospitalist Progress Note ---
Date of Service December 26, 2023 Assessment & Plan (1) Hypomagnesemia: (2) Hypokalemia: (3) Hyperglycemia due to type 2 diabetes mellitus: (4) Abdominal pain: (5) Diarrhea: Plan Electrolyte disturbances- Potassium 2.2 on admission Replating Magnesium 1.0, Repleted CT scan of abdomen pelvis is negative, the patient reports issues with abdominal discomfort and has briefly some loose stools May have an element of diabetic gastroparesis associated And also related to hyperglycemia and uncontrolled diabetes mellitus Hyperglycemia in diabetes mellitus- Glucose 400 admission, will hold Januvia, semaglutide, metformin and glimepiride Placed on Accu-Cheks with NovoLog SSI IV fluids as noted above Medical noncompliance- Likely plays a significant part Admission and Anticipated Discharge Date Admission Date: December 25, 2023 Subjective Patient was seen and examined at 12:35 PM. She says that she is still nauseous and has some belly pain. Review of Systems Review of Systems: All systems reviewed & are unremarkable except as noted in Subjective Physical Exam Physical Exam: General: Awake, conversant. Chronically ill-appearing. Heart: S1, S2/regular rate and rhythm, no murmur rubs or gallops Lungs: Clear to auscultation bilaterally. Normal effort Abdomen: Soft/nondistended. Mild tenderness to palpation diffusely all over abdomen. No hepatosplenomegaly Extremities: No clubbing/cyanosis. No edema Behavior: Appropriate, cooperative Results & Data Results & Data Vital Signs (Past 12 Hours) Vital Signs Temp Pulse Resp BP Pulse Ox O2 Del Method 12/26/23 15:05 36.5 C 90 18 125/63 96 Room Air 12/26/23 07:51 36.7 C 89 20 115/68 98 Room Air Laboratory Results Abnormal lab results 12/25/23 12/25/23 12/26/23 Range/Units 18:40 19:58 00:18 WBC 11.53 H (4.8-10.8) K/ul RBC 4.14 L (4.20-5.40) M/uL Hgb 11.8 L (12.0-16.0) g/dl POC Hgb 10.5 L (12.0-16.0) g/dl Hct 34.7 L (37.0-47.0) % POC Hct 31 L (37-47) % Neut # (Auto) 8.53 H (1.40-6.50) K/uL [place] # (Auto) 0.73 H (0.11-0.59) K/uL Sodium 135 L (136-145) mmol/L POC Potassium 2.0 L* (3.3-5.0) mmol/L Potassium 2.2 L* (3.5-5.1) mmol/L POC Chloride 88 L (101-112) mmol/L Chloride 91 L (98-107) mmol/L Anion Gap 16 H (3-11) Glucose 400 H* (70-99(Fasting)) mg/dl POC Glucose 248 H (70-99) mg/dl POC Glucose (other) 356 H* (70-99) mg/dl Hemoglobin A1c (4.5-5.6) % Calcium 7.7 L (8.6-10.3) mg/dl POC Ioniz Calcium Bessy 0.90 L (1.12-1.32) mmol/l Magnesium 1.0 L (1.7-2.4) mg/dl AST 10 L (13-39) U/L Alkaline Phosphatase 126 H (34-104) U/L Albumin 3.3 L (3.4-5.0) gm/dl Lipase 7 L (11-82) U/L 12/26/23 12/26/23 12/26/23 Range/Units 05:41 07:20 10:10 WBC (4.8-10.8) K/ul RBC 3.68 L (4.20-5.40) M/uL Hgb 10.7 L (12.0-16.0) g/dl POC Hgb (12.0-16.0) g/dl Hct 30.6 L (37.0-47.0) % POC Hct (37-47) % Neut # (Auto) (1.40-6.50) K/uL [place] # (Auto) 0.61 H (0.11-0.59) K/uL Sodium (136-145) mmol/L POC Potassium (3.3-5.0) mmol/L Potassium 2.8 L D (3.5-5.1) mmol/L POC Chloride (101-112) mmol/L Chloride (98-107) mmol/L Anion Gap (3-11) Glucose 140 H (70-99(Fasting)) mg/dl POC Glucose 184 H 269 H (70-99) mg/dl POC Glucose (other) (70-99) mg/dl Hemoglobin A1c 10.7 H (4.5-5.6) % Calcium 7.6 L (8.6-10.3) mg/dl POC Ioniz Calcium Bessy (1.12-1.32) mmol/l Magnesium 1.3 L (1.7-2.4) mg/dl AST (13-39) U/L Alkaline Phosphatase (34-104) U/L Albumin 2.9 L (3.4-5.0) gm/dl Lipase (11-82) U/L 12/26/23 Range/Units 11:11 WBC (4.8-10.8) K/ul RBC (4.20-5.40) M/uL Hgb (12.0-16.0) g/dl POC Hgb (12.0-16.0) g/dl Hct (37.0-47.0) % POC Hct (37-47) % Neut # (Auto) (1.40-6.50) K/uL [place] # (Auto) (0.11-0.59) K/uL Sodium (136-145) mmol/L POC Potassium (3.3-5.0) mmol/L Potassium (3.5-5.1) mmol/L POC Chloride (101-112) mmol/L Chloride (98-107) mmol/L Anion Gap (3-11) Glucose (70-99(Fasting)) mg/dl POC Glucose 259 H (70-99) mg/dl POC Glucose (other) (70-99) mg/dl Hemoglobin A1c (4.5-5.6) % Calcium (8.6-10.3) mg/dl POC Ioniz Calcium Bessy (1.12-1.32) mmol/l Magnesium (1.7-2.4) mg/dl AST (13-39) U/L Alkaline Phosphatase (34-104) U/L Albumin (3.4-5.0) gm/dl Lipase (11-82) U/L Diagnostic Findings Abnormal lab results 12/25/23 12/25/23 12/26/23 Range/Units 18:40 19:58 00:18 WBC 11.53 H (4.8-10.8) K/ul RBC 4.14 L (4.20-5.40) M/uL Hgb 11.8 L (12.0-16.0) g/dl POC Hgb 10.5 L (12.0-16.0) g/dl Hct 34.7 L (37.0-47.0) % POC Hct 31 L (37-47) % Neut # (Auto) 8.53 H (1.40-6.50) K/uL [place] # (Auto) 0.73 H (0.11-0.59) K/uL Sodium 135 L (136-145) mmol/L POC Potassium 2.0 L* (3.3-5.0) mmol/L Potassium 2.2 L* (3.5-5.1) mmol/L POC Chloride 88 L (101-112) mmol/L Chloride 91 L (98-107) mmol/L Anion Gap 16 H (3-11) Glucose 400 H* (70-99(Fasting)) mg/dl POC Glucose 248 H (70-99) mg/dl POC Glucose (other) 356 H* (70-99) mg/dl Hemoglobin A1c (4.5-5.6) % Calcium 7.7 L (8.6-10.3) mg/dl POC Ioniz Calcium Bessy 0.90 L (1.12-1.32) mmol/l Magnesium 1.0 L (1.7-2.4) mg/dl AST 10 L (13-39) U/L Alkaline Phosphatase 126 H (34-104) U/L Albumin 3.3 L (3.4-5.0) gm/dl Lipase 7 L (11-82) U/L 12/26/23 12/26/23 12/26/23 Range/Units 05:41 07:20 10:10 WBC (4.8-10.8) K/ul RBC 3.68 L (4.20-5.40) M/uL Hgb 10.7 L (12.0-16.0) g/dl POC Hgb (12.0-16.0) g/dl Hct 30.6 L (37.0-47.0) % POC Hct (37-47) % Neut # (Auto) (1.40-6.50) K/uL [place] # (Auto) 0.61 H (0.11-0.59) K/uL Sodium (136-145) mmol/L POC Potassium (3.3-5.0) mmol/L Potassium 2.8 L D (3.5-5.1) mmol/L POC Chloride (101-112) mmol/L Chloride (98-107) mmol/L Anion Gap (3-11) Glucose 140 H (70-99(Fasting)) mg/dl POC Glucose 184 H 269 H (70-99) mg/dl POC Glucose (other) (70-99) mg/dl Hemoglobin A1c 10.7 H (4.5-5.6) % Calcium 7.6 L (8.6-10.3) mg/dl POC Ioniz Calcium Bessy (1.12-1.32) mmol/l Magnesium 1.3 L (1.7-2.4) mg/dl AST (13-39) U/L Alkaline Phosphatase (34-104) U/L Albumin 2.9 L (3.4-5.0) gm/dl Lipase (11-82) U/L 12/26/23 Range/Units 11:11 WBC (4.8-10.8) K/ul RBC (4.20-5.40) M/uL Hgb (12.0-16.0) g/dl POC Hgb (12.0-16.0) g/dl Hct (37.0-47.0) % POC Hct (37-47) % Neut # (Auto) (1.40-6.50) K/uL [place] # (Auto) (0.11-0.59) K/uL Sodium (136-145) mmol/L POC Potassium (3.3-5.0) mmol/L Potassium (3.5-5.1) mmol/L POC Chloride (101-112) mmol/L Chloride (98-107) mmol/L Anion Gap (3-11) Glucose (70-99(Fasting)) mg/dl POC Glucose 259 H (70-99) mg/dl POC Glucose (other) (70-99) mg/dl Hemoglobin A1c (4.5-5.6) % Calcium (8.6-10.3) mg/dl POC Ioniz Calcium Bessy (1.12-1.32) mmol/l Magnesium (1.7-2.4) mg/dl AST (13-39) U/L Alkaline Phosphatase (34-104) U/L Albumin (3.4-5.0) gm/dl Lipase (11-82) U/L PG Care Time/CCT Total # of Minutes Spent Total Time Spent with Patient: Total time spent is greater than 50% in coordination of care (as documented) at patient's floor/unit and/or counseling patient: Coding Level of Care Code 93113 SUB INP/OBS CARE 2/35MIN Diagnoses Hypomagnesemia E83.42 Hypokalemia E87.6 Hyperglycemia due to type 2 diabetes mellitus E11.65; Z79.4 Diabetes mellitus long term care social worker insulin use: with long term care social worker use Abdominal pain R10.84 Abdominal location: generalized Diarrhea R19.7 (3) Hyperglycemia due to type 2 diabetes mellitus Diabetes mellitus fpc insulin use: with long term care social worker use Qualified Code(s): E11.65 - Type 2 diabetes mellitus with hyperglycemia; 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
[2023-12-26] MEDS: ONDANSETRON INJ 2 MG/ML 2 ML VIAL IV PRN (16:55)
[2023-12-26] MEDS: ATORVASTATIN 40 MG TAB PO SCH (20:37)
[2023-12-27 07:01] LABS: Basophils # (auto) 0.02 K/uL (0.00-0.20); Basophils % (auto) 0.3 %; Eosinophils % (auto) 2.6 %; Hematocrit (blood only) 32.6 % (37.0-47.0); Immature Granulocytes # (auto) 0.03 K/uL (0.01-0.20); Immature Granulocytes % (auto) 0.4 %; Lymphocytes # (auto) 1.68 K/uL (1.20-3.40); Lymphocytes % (auto) 22.2 %; Mean Corpuscular Hemoglobin 29.3 pg (25.0-34.0); Mean Corpuscular Hgb Conc 33.7 g/dL (32.0-36.0); Mean Corpuscular Volume 86.7 fL (80.0-100.0); Monocytes # (auto) 0.54 K/uL (0.11-0.59); Monocytes % (auto) 7.1 %; Neutrophils # (auto) 5.09 K/uL (1.40-6.50); Neutrophils % (auto) 67.4 %; Platelet Count 280 K/uL (130-400); RDW Coefficient of Variation 13.6 % (11.5-14.5); RDW Standard Deviation 42.8 fL (36.4-46.3); Red Blood Count 3.76 M/uL (4.20-5.40); White Blood Count 7.56 K/ul (4.8-10.8)
[2023-12-27 07:39] LABS: Albumin Level 2.9 gm/dl (3.4-5.0); BUN Creatinine Ratio 10.4 (10-20); Creatinine Clr Calc Pharmacy 69.3 ml/min; Magnesium 1.9 mg/dl (1.7-2.4); Phosphorus 3.7 mg/dl (2.5-4.9); Potassium 3.6 mmol/L (3.5-5.1)
[2023-12-27] MEDS: MECLIZINE 12.5 MG TAB PO PRN (13:37)
[2023-12-27] MEDS: DICLOFENAC SOD 1% GEL 100 GM TUBE EXT SCH (13:39)
--- NOTE | 2023-12-27 14:12 | Hospitalist Progress Note ---
Date of Service December 27, 2023 Assessment & Plan (1) Hypomagnesemia: (2) Hypokalemia: (3) Hyperglycemia due to type 2 diabetes mellitus: (4) Abdominal pain: (5) Diarrhea: Plan Electrolyte disturbances- Potassium 2.2 on admission Repleted Magnesium 1.0, Repleted CT scan of abdomen pelvis is negative, the patient reports issues with abdominal discomfort and has briefly some loose stools May have an element of diabetic gastroparesis associated And also related to hyperglycemia and uncontrolled diabetes mellitus Patient has been encouraged to have small frequent meals Hyperglycemia in diabetes mellitus- Glucose 400 admission, will hold Januvia, semaglutide, metformin and glimepiride Placed on Accu-Cheks with NovoLog SSI Medical noncompliance- Likely plays a significant part Admission and Anticipated Discharge Date Admission Date: December 25, 2023 Subjective Patient was seen and examined at 10:25 AM. Still complaining of nausea, dizziness. She was able to keep her food down today. She was encouraged to have small frequent meals Review of Systems Review of Systems: All systems reviewed & are unremarkable except as noted in Subjective Physical Exam Physical Exam: General: Awake, conversant. Chronically ill-appearing. Heart: S1, S2/regular rate and rhythm, no murmur rubs or gallops Lungs: Clear to auscultation bilaterally. Normal effort Abdomen: Soft/nondistended. Mild tenderness to palpation diffusely all over abdomen. No hepatosplenomegaly Extremities: No clubbing/cyanosis. No edema Behavior: Appropriate, cooperative Results & Data Results & Data Vital Signs (Past 12 Hours) Vital Signs Temp Pulse Pulse Resp BP Pulse Ox O2 Del Method 12/27/23 11:56 36.7 C 84 20 141/74 H 93 Room Air 12/27/23 08:14 36.9 C 89 18 130/74 94 Room Air 12/27/23 07:00 89 12/27/23 02:43 36.7 C 82 18 111/70 93 Room Air PG Care Time/CCT Total # of Minutes Spent Total Time Spent with Patient: Total time spent is greater than 50% in coordination of care (as documented) at patient's floor/unit and/or counseling patient: Coding Level of Care Code 41088 SUB INP/OBS CARE 2/35MIN Diagnoses Hypomagnesemia E83.42 Hypokalemia E87.6 Hyperglycemia due to type 2 diabetes mellitus E11.65; Z79.4 Diabetes mellitus shelter insulin use: with shelter use Abdominal pain R10.84 Abdominal location: generalized Diarrhea R19.7 (3) Hyperglycemia due to type 2 diabetes mellitus Diabetes mellitus shelter insulin use: with terminologist use Qualified Code(s): E11.65 - Type 2 diabetes mellitus with hyperglycemia; Z79.4 - halfway (current) use of insulin (4) Abdominal pain Abdominal location: generalized Qualified Code(s): R10.84 - Generalized abdominal pain
[2023-12-27] MEDS: POLYETHYLENE (MIRALAX) 17 GM PACK PO PRN (16:52)
[2023-12-27] MEDS: traMADol HCL 50 MG TABLET PO PRN (23:50)
[2023-12-28 06:13] LABS: Basophils # (auto) 0.02 K/uL (0.00-0.20); Basophils % (auto) 0.2 %; Eosinophils # (auto) 0.24 K/uL (0.00-0.50); Eosinophils % (auto) 2.9 %; Hematocrit (blood only) 32.4 % (37.0-47.0); Hemoglobin 10.8 g/dl (12.0-16.0); Immature Granulocytes # (auto) 0.04 K/uL (0.01-0.20); Immature Granulocytes % (auto) 0.5 %; Lymphocytes # (auto) 1.89 K/uL (1.20-3.40); Lymphocytes % (auto) 22.9 %; Mean Corpuscular Hgb Conc 33.3 g/dL (32.0-36.0); Mean Corpuscular Volume 86.9 fL (80.0-100.0); Mean Platelet Volume 9.6 fL (9.4-12.4); Monocytes % (auto) 7.3 %; Neutrophils # (auto) 5.47 K/uL (1.40-6.50); Neutrophils % (auto) 66.2 %; Platelet Count 270 K/uL (130-400); RDW Coefficient of Variation 13.3 % (11.5-14.5); RDW Standard Deviation 42.1 fL (36.4-46.3); Red Blood Count 3.73 M/uL (4.20-5.40); White Blood Count 8.26 K/ul (4.8-10.8)
[2023-12-28 06:36] LABS: Albumin Level 2.9 gm/dl (3.4-5.0); BUN Creatinine Ratio 11.7 (10-20); Calcium 8.2 mg/dl (8.6-10.3); Creatinine Clr Calc Pharmacy 69.4 ml/min; Magnesium 1.4 mg/dl (1.7-2.4); Phosphorus 4.2 mg/dl (2.5-4.9); Potassium 3.8 mmol/L (3.5-5.1)
[2023-12-28] MEDS: MAGNESIUM OXIDE 400 MG TAB PO SCH (08:40)
--- NOTE | 2023-12-28 14:31 | Hospitalist Progress Note ---
Date of Service December 28, 2023 Assessment & Plan (1) Hypomagnesemia: (2) Hypokalemia: (3) Hyperglycemia due to type 2 diabetes mellitus: (4) Abdominal pain: (5) Diarrhea: Plan Electrolyte disturbances- Potassium 2.2 on admission Repleted Magnesium 1.0, Repleted CT scan of abdomen pelvis is negative, the patient reports issues with abdominal discomfort and has briefly some loose stools May have an element of diabetic gastroparesis associated And also related to hyperglycemia and uncontrolled diabetes mellitus Patient has been encouraged to have small frequent meals. Patient seems to be noncompliant Hyperglycemia in diabetes mellitus- Glucose 400 admission, will hold Januvia, semaglutide, metformin and glimepiride Placed on Accu-Cheks with NovoLog SSI Medical noncompliance- Likely plays a significant part Admission and Anticipated Discharge Date Admission Date: December 25, 2023 Subjective Patient was seen at 11:15 AM. She says she threw up last night. Denies any chest pain or shortness of breath. Review of Systems Review of Systems: All systems reviewed & are unremarkable except as noted in Subjective Physical Exam Physical Exam: General: Awake, conversant. Chronically ill-appearing. Heart: S1, S2/regular rate and rhythm, no murmur rubs or gallops Lungs: Clear to auscultation bilaterally. Normal effort Abdomen: Soft/nondistended. Mild tenderness to palpation diffusely all over abdomen. No hepatosplenomegaly Extremities: No clubbing/cyanosis. No edema Behavior: Appropriate, cooperative Results & Data Results & Data Vital Signs (Past 12 Hours) Vital Signs Temp Pulse Pulse Resp BP Pulse Ox O2 Del Method 12/28/23 12:02 36.8 C 75 18 127/78 94 Room Air 12/28/23 11:40 Room Air 12/28/23 08:08 36.8 C 87 20 139/74 92 Room Air 12/28/23 07:32 77 12/28/23 03:07 36.7 C 81 18 104/67 93 Room Air Laboratory Results Abnormal lab results 12/27/23 12/27/23 12/28/23 Range/Units 16:10 20:13 05:49 RBC 3.73 L (4.20-5.40) M/uL Hgb 10.8 L (12.0-16.0) g/dl Hct 32.4 L (37.0-47.0) % [place] # (Auto) 0.60 H (0.11-0.59) K/uL Glucose 225 H (70-99(Fasting)) mg/dl POC Glucose 162 H 164 H (70-99) mg/dl Calcium 8.2 L (8.6-10.3) mg/dl Magnesium 1.4 L (1.7-2.4) mg/dl Albumin 2.9 L (3.4-5.0) gm/dl 12/28/23 12/28/23 Range/Units 07:42 11:47 RBC (4.20-5.40) M/uL Hgb (12.0-16.0) g/dl Hct (37.0-47.0) % [place] # (Auto) (0.11-0.59) K/uL Glucose (70-99(Fasting)) mg/dl POC Glucose 284 H 130 H (70-99) mg/dl Calcium (8.6-10.3) mg/dl Magnesium (1.7-2.4) mg/dl Albumin (3.4-5.0) gm/dl PG Care Time/CCT Total # of Minutes Spent Total Time Spent with Patient: Total time spent is greater than 50% in coordination of care (as documented) at patient's floor/unit and/or counseling patient: Coding Level of Care Code 84745 SUB INP/OBS CARE 2/35MIN Diagnoses Hypomagnesemia E83.42 Hypokalemia E87.6 Hyperglycemia due to type 2 diabetes mellitus E11.65; Z79.4 Diabetes mellitus termite renewal inspector insulin use: with termite renewal inspector use Abdominal pain R10.84 Abdominal location: generalized Diarrhea R19.7 (3) Hyperglycemia due to type 2 diabetes mellitus Diabetes mellitus termite renewal inspector insulin use: with custodial use Qualified Code(s): E11.65 - Type 2 diabetes mellitus with hyperglycemia; Z79.4 - intermission coordinator (current) use of insulin (4) Abdominal pain Abdominal location: generalized Qualified Code(s): R10.84 - Generalized abdominal pain
[2023-12-29] MEDS ORDERED: SITagliptin PHOSPHATE 100 MG TAB PO SCH (09:55)
[2023-12-29] MEDS ORDERED: INSULIN ASPART PER UNIT CHARGE SC SCH (11:30)
[2023-12-29] MEDS: metFORMIN HCL ER 500 MG TABCR PO SCH (12:13)
[2023-12-29] MEDS: MECLIZINE 12.5 MG TAB PO SCH (13:31)
--- NOTE | 2023-12-29 16:11 | Hospitalist Progress Note ---
Date of Service December 29, 2023 Assessment & Plan (1) Hypomagnesemia: Plan: Corrected with replacement therapy. Serial lab (2) Hypokalemia: Plan: Corrected with replacement therapy. Serial labs (3) Hyperglycemia due to type 2 diabetes mellitus: Plan: Metformin and sitagliptin have been restarted. ADA diet. Continue sliding scale coverage (4) Abdominal pain: Plan: Present on admission. Now resolved (5) Diarrhea: Plan: Present on admission. Now resolved Plan Hopeful discharge to home with home health services tomorrow, December 29 Admission and Anticipated Discharge Date Admission Date: December 25, 2023 Subjective Alert and oriented. She is having vertigo symptoms consistent with acute labyrinthitis. Meclizine scheduled dosing has been ordered. Will avoid parenteral steroids now due to type 2 diabetes with glucose 234 this morning. Metformin and sitagliptin have been restarted. Continue sliding scale coverage. OT and PT assessments have been requested. Hopefully she can go home with home health services within the next day or 2. Review of Systems 2 Review of Systems: Constitutionalno fever or chills ENTno blurred vision, no double vision, no epistaxis, no sore throat Respiratoryno cough, no wheezing, no shortness of breath Cardiacno palpitations, no chest pain, no syncope Jada nausea, vomiting, diarrhea, melena, hematochezia GUno urinary retention, no urinary incontinence, no dysuria, no hematuria Musculoskeletalno joint pain, no muscle tenderness Skinno bruising, no rashes, no pruritus Neurono isolated weakness, no paresthesia, no weakness. She does have vertigo with movement Psychno depression, no anxiety Physical Exam 2 Physical Exam: General-alert and oriented x3, no fever, no chills HEENT-head atraumatic and normocephalic, pupils equal and reactive to light, extraocular muscles intact Neck-no lymphadenopathy or thyromegaly, trachea midline Chest-clear to auscultation. No rales, wheezing or rhonchi Cardiac-regular rate and rhythm, normal S1 and S2 Abdomen-normal bowel sounds, no hepatosplenomegaly Extremities-no cyanosis, clubbing, or edema Neuro-cranial nerves II through XII intact, motor and sensory function within normal limits, strength symmetrical, no focal deficits Psych-normal affect, normal mood Results & Data Results & Data Vital Signs (Past 12 Hours) Vital Signs Temp Pulse Pulse Resp BP Pulse Ox O2 Del Method 12/29/23 15:33 36.9 C 81 12 118/78 92 Room Air 12/29/23 12:25 37.2 C 82 18 117/73 95 Room Air 12/29/23 07:40 37.2 C 86 17 155/93 H 90 Room Air 12/29/23 07:32 37.6 C H 81 14 148/54 H 93 Room Air 12/29/23 07:32 86 Laboratory Results 12/28/23 05:49 12/28/23 05:49 PG Care Time/CCT Total # of Minutes Spent Total Time Spent with Patient: Total time spent is greater than 50% in coordination of care (as documented) at patient's floor/unit and/or counseling patient: Coding Level of Care Code 36824 SUB INP/OBS CARE 3/50MIN Diagnoses Hypomagnesemia E83.42 Hypokalemia E87.6 Hyperglycemia due to type 2 diabetes mellitus E11.65; Z79.4 Diabetes mellitus fpc insulin use: with fpc use Abdominal pain R10.84 Abdominal location: generalized Diarrhea R19.7 (3) Hyperglycemia due to type 2 diabetes mellitus Diabetes mellitus fpc insulin use: with sign shop supervisor use Qualified Code(s): E11.65 - Type 2 diabetes mellitus with hyperglycemia; Z79.4 - switch operators supervisor (current) use of insulin (4) Abdominal pain Abdominal location: generalized Qualified Code(s): R10.84 - Generalized abdominal pain
[2023-12-29] MEDS: SIMETHICONE 80 MG CHEW PO ONE (16:35)
[2023-12-30] MEDS: predniSONE 10 MG TABLET PO SCH (15:18)
--- NOTE | 2023-12-30 16:13 | Hospitalist Progress Note ---
Date of Service December 30, 2023 Assessment & Plan (1) Hypomagnesemia: Plan: Corrected with replacement therapy. Serial lab (2) Hypokalemia: Plan: Corrected with replacement therapy. Serial labs (3) Hyperglycemia due to type 2 diabetes mellitus: Plan: Metformin and sitagliptin have been restarted. ADA diet. Continue sliding scale coverage (4) Abdominal pain: Plan: Present on admission. Now resolved (5) Diarrhea: Plan: Present on admission. Now resolved (6) Vertigo: Plan: Probably acute labyrinthitis etiology but brain MRI scan ordered to rule out midbrain CVA that could cause similar symptoms. Continue scheduled meclizine dosing. Oral prednisone added. Supportive care Plan Hopeful discharge to home with home health services tomorrowDecember 30 Admission and Anticipated Discharge Date Admission Date: December 25, 2023 Subjective Alert and oriented. No new problems. Vertigo continues. Will start oral prednisone and continue scheduled meclizine dosing. Brain MRI ordered to rule out ischemic midbrain CVA that could cause the vertigo. Hopefully she can go home with home health services tomorrow, December 30 Review of Systems 2 Review of Systems: Constitutionalno fever or chills ENTno blurred vision, no double vision, no epistaxis, no sore throat Respiratoryno cough, no wheezing, no shortness of breath Cardiacno palpitations, no chest pain, no syncope Jada nausea, vomiting, diarrhea, melena, hematochezia GUno urinary retention, no urinary incontinence, no dysuria, no hematuria Musculoskeletalno joint pain, no muscle tenderness Skinno bruising, no rashes, no pruritus Neurono isolated weakness, no paresthesia, no weakness. She continues to have vertigo with movement Psychno depression, no anxiety Physical Exam 2 Physical Exam: General-alert and oriented x3, no fever, no chills HEENT-head atraumatic and normocephalic, pupils equal and reactive to light, extraocular muscles intact. No discernible nystagmus Neck-no lymphadenopathy or thyromegaly, trachea midline Chest-clear to auscultation. No rales, wheezing or rhonchi Cardiac-regular rate and rhythm, normal S1 and S2 Abdomen-normal bowel sounds, no hepatosplenomegaly Extremities-no cyanosis, clubbing, or edema Neuro-cranial nerves II through XII intact, motor and sensory function within normal limits, strength symmetrical, no focal deficits Psych-normal affect, normal mood Results & Data Results & Data Vital Signs (Past 12 Hours) Vital Signs Temp Pulse Pulse Resp BP Pulse Ox O2 Del Method 12/30/23 15:27 37.2 C 75 16 126/81 94 Room Air 12/30/23 11:18 36.9 C 81 16 137/86 97 Room Air 12/30/23 07:58 36.5 C 74 18 125/63 96 Room Air 12/30/23 07:00 107 H Laboratory Results 12/28/23 05:49 12/28/23 05:49 PG Care Time/CCT Total # of Minutes Spent Total Time Spent with Patient: Total time spent is greater than 50% in coordination of care (as documented) at patient's floor/unit and/or counseling patient: Coding Level of Care Code 76035 SUB INP/OBS CARE 3/50MIN Diagnoses Hypomagnesemia E83.42 Hypokalemia E87.6 Hyperglycemia due to type 2 diabetes mellitus E11.65; Z79.4 Diabetes mellitus ferry terminal agent insulin use: with nursing home use Abdominal pain R10.84 Abdominal location: generalized Diarrhea R19.7 Vertigo R42 (3) Hyperglycemia due to type 2 diabetes mellitus Diabetes mellitus nursing home insulin use: with ferry terminal agent use Qualified Code(s): E11.65 - Type 2 diabetes mellitus with hyperglycemia; Z79.4 - shelter (current) use of insulin (4) Abdominal pain Abdominal location: generalized Qualified Code(s): R10.84 - Generalized abdominal pain
[2023-12-30] MEDS: LORazepam 1 MG TAB PO STA ×2 (19:25→19:37)
--- NOTE | 2023-12-30 21:24 | Magnetic Resonance Report ---
Exam(s): MRI HEAD Without Contrast EXAM: MR Head Without Intravenous Contrast CLINICAL HISTORY: Reason for exam: vertigo. TECHNIQUE: Magnetic resonance images of the head/brain without intravenous contrast in multiple planes. COMPARISON: 12/19/22 FINDINGS: Brain: Generalized parenchymal volume loss. Periventricular and scattered deep cerebral white matter foci of flair signal hyperintensity, most likely mild chronic small vessel ischemic change. Proximal intracranial flow voids appear normal. No acute intracranial hemorrhage or abnormal extra-axial fluid collection. No mass-effect or midline shift. No diffusion restriction to suggest acute cerebral ischemia. Ventricles: Unremarkable. No hydrocephalus. Bones/joints: Unremarkable. No acute fracture. Sinuses: Unremarkable as visualized. Mastoid air cells: Unremarkable as visualized. No mastoid effusion. Orbits: Unremarkable as visualized. IMPRESSION: No acute findings in the head/brain. Electronically signed by: Wallace Longo M.D. 12/30/23 21:23 PM
[2023-12-31 07:09] LABS: BUN Creatinine Ratio 10.9 (10-20); Creatinine Clr Calc Pharmacy 51.7 ml/min; Potassium 4.7 mmol/L (3.5-5.1)
--- NOTE | 2023-12-31 11:26 | Electrocardiogram Report ---
Test Reason : Blood Pressure : */* mmHG Vent. Rate : 82 BPM Atrial Rate : 82 BPM P-R Int : 150 ms QRS Dur : 70 ms QT Int : 390 ms P-R-T Axes : 50 42 29 degrees QTcB Int : 455 ms Normal sinus rhythm Low voltage QRS Borderline ECG When compared with ECG of 25-Dec-2023 19:47, T wave inversion no longer evident in Anterior leads QT has shortened Confirmed by Macho Gates ([id number]) on 12/31/2023 11:26:05 AM Referred By: REFERRED SELF Confirmed By: Macho Gates
--- NOTE | 2023-12-31 12:39 | Hospitalist Progress Note ---
Date of Service December 31, 2023 Assessment & Plan (1) Hypomagnesemia: Plan: Corrected with replacement therapy. Serial lab (2) Hypokalemia: Plan: Corrected with replacement therapy. Serial labs (3) Hyperglycemia due to type 2 diabetes mellitus: Plan: Metformin and sitagliptin have been restarted. ADA diet. Continue sliding scale coverage (4) Abdominal pain: Plan: Present on admission. Now resolved (5) Diarrhea: Plan: Present on admission. Now resolved (6) Vertigo: Plan: Appears to be of acute laryngitis etiology. Brain MRI scan is negative for CVA. Continue scheduled meclizine and prednisone dosing. Supportive care Plan Hopeful discharge to home with home health services tomorrow, December 31 Admission and Anticipated Discharge Date Admission Date: December 25, 2023 Subjective Alert and oriented. Fortunately the brain MRI scan is negative for acute ischemic CVA. She remains on prednisone and meclizine which will be discontinued when her symptoms of vertigo resolve. She states that she cannot go home today because she does not have a ride home. Hopefully this can be accomplished tomorrow, December 31 Review of Systems 2 Review of Systems: Constitutionalno fever or chills ENTno blurred vision, no double vision, no epistaxis, no sore throat Respiratoryno cough, no wheezing, no shortness of breath Cardiacno palpitations, no chest pain, no syncope Jada nausea, vomiting, diarrhea, melena, hematochezia GUno urinary retention, no urinary incontinence, no dysuria, no hematuria Musculoskeletalno joint pain, no muscle tenderness Skinno bruising, no rashes, no pruritus Neurono isolated weakness, no paresthesia, no weakness. She continues to have vertigo with movement Psychno depression, no anxiety Physical Exam 2 Physical Exam: General-alert and oriented x3, no fever, no chills HEENT-head atraumatic and normocephalic, pupils equal and reactive to light, extraocular muscles intact. No discernible nystagmus Neck-no lymphadenopathy or thyromegaly, trachea midline Chest-clear to auscultation. No rales, wheezing or rhonchi Cardiac-regular rate and rhythm, normal S1 and S2 Abdomen-normal bowel sounds, no hepatosplenomegaly Extremities-no cyanosis, clubbing, or edema Neuro-cranial nerves II through XII intact, motor and sensory function within normal limits, strength symmetrical, no focal deficits Psych-normal affect, normal mood Results & Data Results & Data Vital Signs (Past 12 Hours) Vital Signs Temp Pulse Pulse Resp BP Pulse Ox O2 Del Method 12/31/23 11:15 36.6 C 94 H 18 120/74 97 Room Air 12/31/23 07:50 36.6 C 104 H 20 132/61 96 Room Air 12/31/23 07:19 Room Air 12/31/23 06:56 96 H 12/31/23 03:41 36.8 C 100 H 19 128/76 92 Room Air Laboratory Results 12/28/23 05:49 12/31/23 05:41 PG Care Time/CCT Total # of Minutes Spent Total Time Spent with Patient: Total time spent is greater than 50% in coordination of care (as documented) at patient's floor/unit and/or counseling patient: Coding Level of Care Code 02136 SUB INP/OBS CARE 2/35MIN Diagnoses Hypomagnesemia E83.42 Hypokalemia E87.6 Hyperglycemia due to type 2 diabetes mellitus E11.65; Z79.4 Diabetes mellitus termite control service representative insulin use: with senior living use Abdominal pain R10.84 Abdominal location: generalized Diarrhea R19.7 Vertigo R42 (3) Hyperglycemia due to type 2 diabetes mellitus Diabetes mellitus senior living insulin use: with termite control service representative use Qualified Code(s): E11.65 - Type 2 diabetes mellitus with hyperglycemia; Z79.4 - [facility] (current) use of insulin (4) Abdominal pain Abdominal location: generalized Qualified Code(s): R10.84 - Generalized abdominal pain
[2024-01-01 07:55] VITALS: O2SAT 97
--- NOTE | 2024-01-01 10:44 | Discharge Summary ---
Discharge Summary Date of Service January 01, 2024 Principal Dx & Hospital Course #1 = Principal Diagnosis (1) Hypomagnesemia: Corrected with replacement therapy. Serial lab (2) Hypokalemia: Corrected with replacement therapy. Serial labs (3) Hyperglycemia due to type 2 diabetes mellitus: Metformin and sitagliptin have been restarted. ADA diet. Continue sliding scale coverage (4) Abdominal pain: Present on admission. Now resolved (5) Diarrhea: Present on admission. Now resolved (6) Vertigo: Appears to be of acute laryngitis etiology. Brain MRI scan is negative for CVA. Treated while hospitalized with scheduled meclizine and prednisone dosing. Continue treatment at discharge. Supportive care Plan Home today, December 31 Admission HPI Per Admitting Provider The patient is a 63-year-old female with a past medical history including tobacco use, hyperglycemia, vitamin D deficiency, diabetes mellitus, medical noncompliance, delusional disorder, coronary disease status post coronary artery stent placement. Patient presents to the emergency department with symptoms as noted above. Discharge Exam General-alert and oriented x3, no fever, no chills HEENT-head atraumatic and normocephalic, pupils equal and reactive to light, extraocular muscles intact. No discernible nystagmus Neck-no lymphadenopathy or thyromegaly, trachea midline Chest-clear to auscultation. No rales, wheezing or rhonchi Cardiac-regular rate and rhythm, normal S1 and S2 Abdomen-normal bowel sounds, no hepatosplenomegaly Extremities-no cyanosis, clubbing, or edema Neuro-cranial nerves II through XII intact, motor and sensory function within normal limits, strength symmetrical, no focal deficits Psych-normal affect, normal mood Discharge Plan Discharge Items Patient Disposition: Home - Home Health Services Reason For Visit: HYPOKALEMIA Discharge Diagnosis: Vertigo due to suspected acute lab arthritis, hypomagnesemia, hypokalemia Activity: Resume your previous activity Non-emergency contact: Primary Care Provider Call non-emergency contact if: your symptoms worsen Follow-up/Referrals: Jc Zaman DO [Primary Care Provider] - Diet: Carb Consistent or DM2 Addtl Attending Provider Instructions: Take meclizine 3 times a day until dizziness completely resolves. Take prednisone in a tapering dose fashion as directed. Prescriptions have been sent to your pharmacy. Pending Studies at Discharge: No Stand-Alone Forms: My [facility], Smoking Cessation Medications and DC Order Prescriptions: New prednisone 10 mg Tablet See Rx Instructions .ROUTE .COMPLEX Qty: 12 0RF Rx Instructions: 10 mg orally 3 times a day for 2 days, then 10 mg twice a day for 2 days, then 10 mg once a day for 2 days, then stop meclizine 12.5 mg Tablet 12.5 mg PO TID Qty: 20 0RF Continued folic acid 1 mg tablet 1 mg PO QAM Qty: 90 3RF bupropion HCl 150 mg tablet extended release 24 hr 150 mg PO QAM 90 Days Qty: 90 3RF Brilinta 90 mg tablet 90 mg PO BID Qty: 60 3RF (DME) pen needle, diabetic [BD Ultra-Fine Cary Pen Needle] 32 gauge x 5/32" needle See Dose Instructions .ROUTE .MEDSUPPLY Qty: 200 11RF Dose Instruction: As directed Rx Instructions: use 2 times daily or as directed by physician to monitor blood sugar metformin 500 mg tablet extended release 24 hr 1,000 mg PO BID Qty: 360 3RF Januvia 100 mg tablet 100 mg PO DAILY 90 Days Qty: 90 3RF glimepiride 2 mg tablet 4 mg PO UD 90 Days Qty: 180 2RF Rx Instructions: 4 mg po qam magnesium oxide 400 mg (241.3 mg magnesium) tablet 1,200 mg PO DAILY Qty: 270 1RF docusate sodium 100 mg capsule 100 mg PO BID Qty: 60 0RF gabapentin 300 mg capsule 600 mg PO BID Qty: 60 2RF (DME) blood-glucose meter [Prodigy Autocode Meter] Kit See Rx Instructions .Route Rx Instructions: As directed Rybelsus 3 mg tablet 0RF aspirin 81 mg Tablet,Delayed Release (Dr/Ec) 81 mg PO QAM Qty: 30 0RF Rx Instructions: Over the counter acetaminophen [Pharbetol] 500 mg Tablet 1,000 mg PO Q8H PRN (Reason: Pain) atorvastatin 80 mg tablet 80 mg PO HS diclofenac sodium [Voltaren Arthritis Pain] 1 % gel 2 g EXT QID PRN (Reason: Pain) levothyroxine 88 mcg tablet 88 mcg PO DAILYBB escitalopram oxalate 20 mg Tablet 20 mg PO QAM Qty: 30 0RF polyethylene glycol 3350 [Miralax] 17 gram powder in packet 34 g PO DAILY Qty: 0 0RF tramadol 50 mg tablet 50 mg PO Q6H PRN (Reason: Pain) famotidine 20 mg tablet 20 mg PO DIRECTED PRN (Reason: Acid Reflux) gabapentin 100 mg capsule 200 mg PO BID Rx Instructions: bid cholecalciferol (vitamin D3) 25 mcg (1,000 unit) Capsule 25 mcg PO QAM Qty: 0 0RF Discharge Orders: Discharge Order (Routine); Ordered 01/01/24 Ordered By: Heriberto Richardson/Other Patient Handouts: Managing Type 2 Diabetes Admission Data Admit Date/Time: 12/25/23 21:37 Attending Provider: Heriberto Domingo Admit Provider: Laurent Gaytan Primary Care Provider: Jc Zaman Other Providers: Laurent Gaytan; [facility] Hospital Stay Data Consultations 12/25/23 22:22 ED Decision to Admit Stat Diagnostic Imagining Performed 12/25/23 19:30 CT abd pelvis IV con only Stat 12/30/23 11:39 MRI Brain [MR brain wo con] Urgent Pending Results Patient Have Any Pending Studies at Discharge: No Discharge Instructions Given to Patient (Per Discharging Provider) Take meclizine 3 times a day until dizziness completely resolves. Take prednisone in a tapering dose fashion as directed. Prescriptions have been sent to your pharmacy. Total Time Total Time Spent Total Time Spent (In Minutes): 50 minutes Coding Level of Care Code 30200 INP/OBS DISCH >30 MIN Diagnoses Hypomagnesemia E83.42 Hypokalemia E87.6 Hyperglycemia due to type 2 diabetes mellitus E11.65; Z79.4 Diabetes mellitus group home insulin use: with group home use Abdominal pain R10.84 Abdominal location: generalized Diarrhea R19.7 Vertigo R42
[2024-01-01 11:45] VITALS: PULSE 88; RESP 18; TEMP 98.1
[2024-01-01 14:28] VITALS: BP 129/76
== END 2024-01-01 16:02 | disposition home health service (06) | DRG 641 ==
LOC: ED 18:38 → SUATTDRO 21:37 → 2S 21:37

== ENCOUNTER 2024-03-24 13:13 | Inpatient (IN) ==
--- NOTE | 2024-03-24 14:02 | Emergency Department Note ---
History of Present Illness General Chief complaint: Shoulder Pain Stated complaint: SHOULDER PAIN Time Seen by Provider: 03/24/24 13:47 History of Present Illness Maximum Pain Intensity: 10 This is a 63-year-old female that presents to the emergency department via EMS with complaints of "left shoulder pain". The patient notes that she sustained a fall on Friday and was seen here. She notes that she was diagnosed with a left shoulder fracture and placed in a shoulder immobilizer. She notes that she lives alone and is having trouble caring for herself. She notes trouble managing the pain as well. She states that the oxycodone at home has been minimally helpful. The patient denies any new injuries or new trauma since her evaluation this past Friday. She denies any fevers or chills. No chest pain or shortness of breath. No headache. No current numbness/tingling in the arm. Home Medications Medication Instructions Recorded Confirmed Type blood-glucose meter (Prodigy 10/15/21 03/24/24 History Autocode Meter kit) aspirin 81 mg tablet,delayed 81 mg PO QAM #30 tabs 10/29/22 03/24/24 Rx release diclofenac sodium 1 % topical gel 2 g EXT QID PRN Pain 02/28/23 03/24/24 History (Voltaren Arthritis Pain) levothyroxine 88 mcg tablet 88 mcg PO DAILYBB 02/28/23 03/24/24 History folic acid 1 mg tablet 1 mg PO QAM #90 tabs 04/07/23 03/24/24 Rx bupropion HCl 150 mg 24 hr tablet, 150 mg PO QAM 90 days #90 tabs 05/05/23 03/24/24 Rx extended release pen needle, diabetic 32 gauge x #200 ea 08/22/23 03/24/24 Rx 5/32" (BD Ultra-Fine Cary Pen Needle) famotidine 20 mg tablet 20 mg PO DAILY PRN Acid Reflux 10/04/23 03/24/24 History tramadol 50 mg tablet 50 mg PO Q6H PRN Pain 10/04/23 03/24/24 History cholecalciferol (vitamin D3) 25 25 mcg PO QAM #0 caps 10/07/23 03/24/24 Rx mcg (1,000 unit) capsule metformin 500 mg tablet,extended 1,000 mg (2 x 500 mg) PO BID #360 10/23/23 03/24/24 Rx release 24 hr tabs escitalopram oxalate 20 mg tablet 20 mg PO QAM #30 tabs 01/05/24 03/24/24 Rx atorvastatin 80 mg tablet 80 mg PO HS #90 tabs 02/13/24 03/24/24 Rx gabapentin 300 mg capsule 600 mg (2 x 300 mg) PO BID #60 caps 02/13/24 03/24/24 Rx ticagrelor 90 mg tablet (Brilinta) 90 mg PO BID #60 tabs 02/13/24 03/24/24 Rx oxycodone 5 mg tablet 5 mg PO Q6H PRN pain #10 tabs 03/22/24 03/24/24 Rx glimepiride 2 mg tablet 4 mg PO QAM 03/24/24 03/24/24 History magnesium oxide 400 mg (241.3 mg 1,200 mg PO QAM 03/24/24 03/24/24 History magnesium) tablet meclizine 12.5 mg tablet 12.5 mg PO TID PRN Dizziness 03/24/24 03/24/24 History polyethylene glycol 3350 17 gram 17 g PO DAILY PRN Constipation 03/24/24 03/24/24 History oral powder packet (Miralax) semaglutide 7 mg tablet 7 mg PO QAM 03/24/24 03/24/24 History sitagliptin phosphate 100 mg 100 mg PO QAM 03/24/24 03/24/24 History tablet (Januvia) Allergies Allergy/AdvReac Type Severity Reaction Status Date / Time dulaglutide [From Trulicity] AdvReac Intermediate stomach Verified 01/08/24 13:57 pain albiglutide [From Tanzeum] AdvReac Unknown CAN'T Verified 01/08/24 13:57 REMEMBER Past Med/Surg History Problem List (Updated 03/24/24 @ 17:18 by Sachin Rm PA-C) Activity of daily living alteration (Acute) Inadequate pain control (Acute) Left humeral fracture (Acute ~03/22/24) Fall (Acute) Fracture of head of humerus (Acute 03/22/24) displaced fracture of the left humeral head/proximal humeral shaft from a fall. Vertigo Hypokalemia (Acute) Abdominal pain (Acute) Nausea & vomiting (Acute) Hypomagnesemia (Acute) Acute hyperglycemia (Acute) Diarrhea SAMRA (acute kidney injury) (Acute) Tobacco use Prolonged QT interval (Acute) Hyperglycemia due to type 2 diabetes mellitus (Acute) Hypertension Chronic constipation Vitamin D deficiency Diabetes mellitus type 2 in obese Hyperglycemia due to type 2 diabetes mellitus Noncompliance (Chronic) Non compliance with medical treatment (Chronic) Delusional disorder Severe protein-calorie malnutrition Vertigo Dysphagia Early satiety Depression Anxiety (Chronic) Vitamin B12 deficiency Serum gamma globulin increased Psoriasis Obesity Low back pain Drug-induced tremor Arthralgia of multiple sites Tobacco abuse (Chronic) Diabetes type 2, uncontrolled IDDM Postmenopausal bleeding Thickened endometrium Mass of soft tissue Cervical mass Status post insertion of drug-eluting stent into left anterior descending (LAD) artery Chronic vulvitis S/P coronary artery stent placement (Chronic) 2 CHANTAL to LAD 10/22/2020 Diabetic nephropathy associated with type 2 diabetes mellitus Back pain Failure to thrive in adult Medical History Ventricular tachycardia Weakness Fall Cigarette smoker CAD (coronary artery disease) No remaining occlusive disease after 2 LAD drug eluting stents 10/22/20. Follows with Dr. Harris Hypothyroidism Diabetes mellitus GERD (gastroesophageal reflux disease) Acute on chronic combined systolic and diastolic CHF (congestive heart failure) Bradycardia with 41-50 beats per minute Accelerated hypertension Depression Osteoarthritis Chronic headaches NSTEMI (non-ST elevated myocardial infarction) 10/22/2020 s/p 2 CHANTAL Vulvitis Dyslipidemia Surgical History History of cardiac catheterization 10/22/2020 Dominant: Right Left Main (% Stenosis): Normal LAD (% Stenosis): Proximal (99) and Mid (75) Circumflex (% Stenosis): Normal (luminal irregularities) RCA (% Stenosis): Normal (Luminal irregularities) 2 CHANTAL to LAD History of cholecystectomy History of dental surgery History of tonsillectomy Family History Unknown Diabetes Thyroid disorder Father Diabetes Other No family history of adverse response to anesthesia Denies family history of Ovarian cancer Prostate cancer Breast cancer Colorectal cancer Uterine cancer Social History Smoking Status: Former smoker Tobacco Type: Cigarettes Age Started Using Tobacco: 24; Age Quit Using Tobacco: 1; packs per day: 0.5; Cigarettes Per Day: 5; Second Hand Exposure: No; Do You Dip or Chew Tobacco: No; Hx Alcohol Use: No Hx Substance Use: No Preferred Language: Albanian Communication Ability: Effective Visual Impairment: No Limitations Translator Interpreter Required: No Beliefs That Will Affect Care: None marital status: Single Current Living Situation: Alone Current Living Situation Comment: lives in trailer current occupational status: disabled How many Children do You have: 0 Feels Safe at Home: Yes Safety Concerns Comment: Gets nervous sometimes because she lives alone, gets shaky from anxiety Diet: regular caffeine: Yes Dental Care, Regularly: No Physical Activity Frequency: Does not Exercise Seatbelt Use: always Sunscreen Use: No Assistive Devices: Walker Review of Systems A total of 10 systems reviewed and were otherwise negative Physical Exam Vital Signs Vital Signs - 24 hr 03/24/24 13:30 03/24/24 17:30 Temperature 36.7 C Temperature Source Temporal Artery Scan Pulse Rate 108 H Pulse Rate [Right Finger] 90 Respiratory Rate 18 17 Respiratory Effort / Characteristics Non-Labored Spontaneous Respiratory Depth Normal Blood Pressure 166/94 H Blood Pressure [Right Arm] 139/97 Blood Pressure Mean 118 Blood Pressure Mean [Right Arm] 111 Blood Pressure Position [Right Arm] Semi-fowlers Pulse Oximetry 99 100 Oxygen Delivery Method Room Air Room Air Sepsis Recent Fever Within 48 Hours No Sepsis New/Unexplained Change in Mental Status N/A Sepsis Action Taken by Nursing No Action Required VITAL SIGNS - Vital signs and nursing notes were reviewed. Tachycardic, hypertensive, otherwise stable. GENERAL -63-year-old female appearing her stated age who is in no acute distress. Communicates well with provider and answers questions appropriately. SKIN - Without rashes. No meningeal or petechial rash. Edema noted to the left proximal humerus region with a small amount of anterior ecchymosis. No break in the integument. HEAD - NC/AT. EYES - PERRL with EOMI bilaterally. Sclera anicteric. EARS - No deformities of external structures noted on gross examination bilaterally. NOSE - Midline and without cyanosis. No epistaxis or purulent drainage noted. MOUTH/OROPHARYNX - Without perioral cyanosis. NECK - Neck with FROM. No nuchal rigidity. LUNGS - Chest wall symmetric without accessory muscle use, intercostals retractions, or central cyanosis. Normal vesicular breath sounds CTA B/L. No wheezes, rales, or rhonchi appreciated. CARDIAC - RRR EXTREMITIES - No clubbing or peripheral cyanosis. Left shoulder immobilizer in place. Left shoulder tender. Left upper extremity appropriately warm and well- perfused. +5/5 strength noted in UE/LE bilaterally. NEUROLOGIC - Cranial nerves II through XII grossly intact. PSYCH -alert, oriented and pleasant on exam.. Course Administered Medications Atorvastatin Calcium (Atorvastatin 40 Mg Tab) 80 mg PO HS TONI Stop: 04/23/24 20:59 Last Admin: 03/24/24 21:51 Dose: 80 mg Documented By: JESSICA Gabapentin (Gabapentin 300 Mg Cap) 600 mg PO BID TONI Stop: 04/23/24 20:59 Last Admin: 03/24/24 21:51 Dose: 600 mg Documented By: JESSICA Insulin Aspart (Insulin Aspart Per Unit Charge) 0 units SC ACHS TONI Stop: 04/23/24 20:59 Last Admin: 03/24/24 21:51 Dose: 10 units Documented By: JESSICA Co-signed By: MARIEL Insulin Glargine (Lantus Per Unit Charge) 10 units SQ BID TONI Stop: 04/23/24 20:59 Last Admin: 03/24/24 21:51 Dose: 10 units Documented By: JESSICA Co-signed By: MARIEL Oxycodone HCl (Oxycodone Hcl Ir 5 Mg Tab (Immediate Release)) 5 mg PO Q6H PRN PRN Reason: Pain Stop: 04/07/24 20:04 Last Admin: 03/24/24 20:24 Dose: 5 mg Documented By: JESSICA Ticagrelor (Ticagrelor 90 Mg Tab) 90 mg PO BID TONI Stop: 04/23/24 20:59 Last Admin: 03/24/24 21:51 Dose: 90 mg Documented By: JESSICA Discontinued Medications Acetaminophen (Acetaminophen 500 Mg Tab) 1,000 mg PO NOW STA Stop: 03/24/24 18:13 Last Admin: 03/24/24 18:29 Dose: 1,000 mg Documented By: VELMA Miscellaneous (Patient's Height &/Or Weight Needed) 1 each N/A Q2H STA Stop: 03/24/24 20:31 Last Admin: 03/24/24 20:50 Dose: 1 each Documented By: JESSICA Oxycodone HCl (Oxycodone Hcl Ir 5 Mg Tab (Immediate Release)) 5 mg PO NOW STA Stop: 03/24/24 14:36 Last Admin: 03/24/24 14:42 Dose: 5 mg Documented By: GRECIA Medical Decision Making Laboratory Data 03/24/24 18:22 03/24/24 18:22 Imaging Data Radiologist's Impression: Humerus X-Ray 03/24/24 16:20 Clinical History: Fall 3 views of the left humerus are submitted for review. Findings: There is an acute comminuted fracture of the left humeral head and neck with mild displacement of fracture fragments No subluxation or dislocation is seen. No significant arthritic changes are noted. No other osseous abnormality is identified. There are no radiopaque foreign bodies. Impression: Acute fracture of the left humeral head and neck Electronically signed by Alexander Rg 03-24-2024 4:43 PM MDM Narrative Patient was seen and evaluated as above in room D06. Review was performed of triage nursing notes and vital signs. I did review pertinent previous visits and patient history. After obtaining a thorough history and physical examination the above work up was performed. Patient presents to us today for evaluation of ongoing left shoulder pain. She notes that she was seen here on Friday for evaluation of a fall and diagnosed with a fracture to the left proximal humerus. She was placed in an arm sling. She notes trouble at home as she lives alone. She is inquiring whether or not she could be admitted to the hospital. On examination the patient does have tenderness in the left shoulder area. There is no evidence of dislocation on my assessment. I did review the x-rays from her recent visit regarding the shoulder and elbow. The elbow was without fracture. Left shoulder x-rays did reveal impacted, displaced fracture of the left humeral head/proximal humeral shaft. At that time there was no evidence of glenohumeral dislocation. Patient notes that since discharge she has had trouble managing pain but there has been no new injury. She notes the left shoulder feels the same. She is neurovascularly intact throughout the left upper extremity on my assessment. I do believe the patient would benefit from further care whether that be in the hospital setting or short-term rehab. In working with our case management service, plan at this time would be admission to the hospital with consideration for acute rehab. Laboratory studies were obtained. I did obtain left humerus x-rays and these are similar to previous without sign of dislocation. Case discussed with the hospitalist service. Please refer to further documentation regarding her stay. GCS: 15 In the evaluation and treatment of this patient the following differential diagnoses were entertained: Fracture, dislocation, subluxation, contusion, sprain, strain, among others. Impression & Plan Left humeral fracture, Inadequate pain control, Activity of daily living alteration Discharge Plan Visit Data Chief Complaint: Shoulder Pain Stated Complaint: SHOULDER PAIN ED Provider: Sean Zaidi ED Midlevel Provider: Sachin Rm Discharge Problem: Left humeral fracture, Inadequate pain control, Activity of daily living alteration Patient Disposition: Admitted As Inpatient Condition: Good Discharge Instructions Interventions: ED Discharge Assessment Last Done: 03/24/24 19:33
[2024-03-24] MEDS: oxyCODONE HCL IR 5 MG TAB (IMMEDIATE RELEASE) PO STA (14:42)
--- NOTE | 2024-03-24 16:43 | XRay Report ---
Clinical History: Fall 3 views of the left humerus are submitted for review. Findings: There is an acute comminuted fracture of the left humeral head and neck with mild displacement of fracture fragments No subluxation or dislocation is seen. No significant arthritic changes are noted. No other osseous abnormality is identified. There are no radiopaque foreign bodies. Impression: Acute fracture of the left humeral head and neck Electronically signed by Alexander Rg 03-24-2024 4:43 PM
--- NOTE | 2024-03-24 17:08 | History & Physical Report ---
Date of Service March 24, 2024 Assessment & Plan (1) Left humeral fracture: (2) Hyperglycemia due to type 2 diabetes mellitus: (3) CAD (coronary artery disease): Johanna Guerrero is a 63F with a PMHx of Diabetes, CAD status post stent placement, chronic hypomagnesemia, hypothyroidism who presents to the ER with shoulder pain and inability on ADLs. Patient was seen in the ER on 03/22 for mechanical fall resulting in a left proximal humerus fracture, was placed in a sling given p.o. oxycodone for home and instructed to have orthopedic follow-up. Patient did not go to any orthopedic follow-up appointment to presents to the ER instead. #Left humerus fracture Occurred on 03/22, [facility] contacted by ED during this visit and recommend sling and outpatient follow up Pain Control: Prn tylenol and oxycodone PT/OT - anticipate pt will need rehab placement Labs still not drawn at time of admission. #DMT2 Last A1c 10.7. Home regimen: glimepiride, Januvia, metformin and PO semaglutide - HELD 10u Lantus BID + SSI CF 30, CR 10 suspect could benefit from insulin regimen at discharge. Repeat A1c ordered #CAD Status post stent placement. Continue statin and ASA and Brilinta Mental health - continue wellbutrin, lexapro Hypothyroidcontinue Synthroid Dispo: Admit to med/surg, needs two midnight stay for rehab DVT prophy: Lovenox CODE STATUS: full code History of Present Illness Primary Care Provider: Jc Zaman, DO Guerrero is a 63F with a PMHx of Diabetes, CAD status post stent placement, chronic hypomagnesemia, hypothyroidism who presents to the ER with shoulder pain and inability on ADLs. Patient was seen in the ER on 03/22 for mechanical fall resulting in a left proximal humerus fracture, was placed in a sling given p.o. oxycodone for home and instructed to have orthopedic follow-up. Patient did not go to any orthopedic follow-up appointment to presents to the ER instead. Poor appetite last few days. One episode of diarrhea yesterday, but this is not out of the ordinary for her. Reports pain in her arm, has been taking Advil and oxycodone at home. Pain radiates down the arm, and reports numbness and tingling. Has not had ortho outpatient for this yet. Took her pills this morning. Checks BSG at home - normally run 300-400s. Allergies Allergy/AdvReac Type Severity Reaction Status Date / Time dulaglutide [From [facility]] AdvReac Intermediate stomach Verified 01/08/24 13:57 pain albiglutide [From [facility]] AdvReac Unknown CAN'T Verified 01/08/24 13:57 REMEMBER Home Medications Medication Instructions Recorded Confirmed Type blood-glucose meter ([facility] 10/15/21 03/24/24 History Autocode Meter kit) aspirin 81 mg tablet,delayed 81 mg PO QAM #30 tabs 10/29/22 03/24/24 Rx release diclofenac sodium 1 % topical gel 2 g EXT QID PRN Pain 02/28/23 03/24/24 History (Voltaren Arthritis Pain) levothyroxine 88 mcg tablet 88 mcg PO DAILYBB 02/28/23 03/24/24 History folic acid 1 mg tablet 1 mg PO QAM #90 tabs 04/07/23 03/24/24 Rx bupropion HCl 150 mg 24 hr tablet, 150 mg PO QAM 90 days #90 tabs 05/05/23 03/24/24 Rx extended release pen needle, diabetic 32 gauge x #200 ea 08/22/23 03/24/24 Rx 5/32" (BD Ultra-Fine Cary Pen Needle) famotidine 20 mg tablet 20 mg PO DAILY PRN Acid Reflux 10/04/23 03/24/24 History tramadol 50 mg tablet 50 mg PO Q6H PRN Pain 10/04/23 03/24/24 History cholecalciferol (vitamin D3) 25 25 mcg PO QAM #0 caps 10/07/23 03/24/24 Rx mcg (1,000 unit) capsule metformin 500 mg tablet,extended 1,000 mg (2 x 500 mg) PO BID #360 10/23/23 03/24/24 Rx release 24 hr tabs escitalopram oxalate 20 mg tablet 20 mg PO QAM #30 tabs 01/05/24 03/24/24 Rx atorvastatin 80 mg tablet 80 mg PO HS #90 tabs 02/13/24 03/24/24 Rx gabapentin 300 mg capsule 600 mg (2 x 300 mg) PO BID #60 caps 02/13/24 03/24/24 Rx ticagrelor 90 mg tablet (Brilinta) 90 mg PO BID #60 tabs 02/13/24 03/24/24 Rx oxycodone 5 mg tablet 5 mg PO Q6H PRN pain #10 tabs 03/22/24 03/24/24 Rx glimepiride 2 mg tablet 4 mg PO QAM 03/24/24 03/24/24 History magnesium oxide 400 mg (241.3 mg 1,200 mg PO QAM 03/24/24 03/24/24 History magnesium) tablet meclizine 12.5 mg tablet 12.5 mg PO TID PRN Dizziness 03/24/24 03/24/24 History polyethylene glycol 3350 17 gram 17 g PO DAILY PRN Constipation 03/24/24 03/24/24 History oral powder packet (Miralax) semaglutide 7 mg tablet 7 mg PO QAM 03/24/24 03/24/24 History sitagliptin phosphate 100 mg 100 mg PO QAM 03/24/24 03/24/24 History tablet (Januvia) Past Med/Surg History Problem List Activity of daily living alteration (Acute) Inadequate pain control (Acute) Left humeral fracture (Acute ~03/22/24) Fall (Acute) Fracture of head of humerus (Acute 03/22/24) displaced fracture of the left humeral head/proximal humeral shaft from a fall. Vertigo Hypokalemia (Acute) Abdominal pain (Acute) Nausea & vomiting (Acute) Hypomagnesemia (Acute) Acute hyperglycemia (Acute) Diarrhea SAMRA (acute kidney injury) (Acute) Tobacco use Prolonged QT interval (Acute) Hyperglycemia due to type 2 diabetes mellitus (Acute) Hypertension Chronic constipation Vitamin D deficiency Diabetes mellitus type 2 in obese Hyperglycemia due to type 2 diabetes mellitus Noncompliance (Chronic) Non compliance with medical treatment (Chronic) Delusional disorder Severe protein-calorie malnutrition Vertigo Dysphagia Early satiety Depression Anxiety (Chronic) Vitamin B12 deficiency Serum gamma globulin increased Psoriasis Obesity Low back pain Drug-induced tremor Arthralgia of multiple sites Tobacco abuse (Chronic) Diabetes type 2, uncontrolled IDDM Postmenopausal bleeding Thickened endometrium Mass of soft tissue Cervical mass Status post insertion of drug-eluting stent into left anterior descending (LAD) artery Chronic vulvitis S/P coronary artery stent placement (Chronic) 2 CHANTAL to LAD 10/22/2020 Diabetic nephropathy associated with type 2 diabetes mellitus Back pain Failure to thrive in adult Medical History Ventricular tachycardia Weakness Fall Cigarette smoker CAD (coronary artery disease) No remaining occlusive disease after 2 LAD drug eluting stents 10/22/20. Follows with Dr. Harris Hypothyroidism Diabetes mellitus GERD (gastroesophageal reflux disease) Acute on chronic combined systolic and diastolic CHF (congestive heart failure) Bradycardia with 41-50 beats per minute Accelerated hypertension Depression Osteoarthritis Chronic headaches NSTEMI (non-ST elevated myocardial infarction) 10/22/2020 s/p 2 CHANTAL Vulvitis Dyslipidemia Surgical History History of cardiac catheterization 10/22/2020 Dominant: Right Left Main (% Stenosis): Normal LAD (% Stenosis): Proximal (99) and Mid (75) Circumflex (% Stenosis): Normal (luminal irregularities) RCA (% Stenosis): Normal (Luminal irregularities) 2 CHANTAL to LAD History of cholecystectomy History of dental surgery History of tonsillectomy Family History Unknown Diabetes Thyroid disorder Father Diabetes Other No family history of adverse response to anesthesia Denies family history of Ovarian cancer Prostate cancer Breast cancer Colorectal cancer Uterine cancer Social History Smoking Status: Former smoker Tobacco Type: Cigarettes Age Started Using Tobacco: 24; Age Quit Using Tobacco: 1; packs per day: 0.5; Cigarettes Per Day: 5; Smoking End Date: 2 months ago; Second Hand Exposure: No; Do You Dip or Chew Tobacco: No; Hx Alcohol Use: No Hx Substance Use: No Preferred Language: [place] Communication Ability: Effective Visual Impairment: No Limitations Senior Hris Analyst Required: No Beliefs That Will Affect Care: None marital status: Single Current Living Situation: Alone Current Living Situation Comment: lives in trailer current occupational status: disabled How many Children do You have: 0 Feels Safe at Home: Yes Safety Concerns: Feels Safe At This Time Safety Concerns Comment: Gets nervous sometimes because she lives alone, gets shaky from anxiety Diet: regular caffeine: Yes Dental Care, Regularly: No Physical Activity Frequency: Does not Exercise Seatbelt Use: always Sunscreen Use: No Assistive Devices: Walker Review of Systems Review of Systems: All systems reviewed & are unremarkable except as noted in Subjective Physical Exam Physical Exam: General: NAD, VS as above, lying in bed, flat affect Resp: normal respiratory effort, lungs clear to auscultation CV: RRR, no murmur, Abd: normal bowel sounds, non tender, no hepatosplenomegaly Extremities: left arm in sling, able to move fingers. Cooker Loader strength intact but causes pain. Neuro: A&O x3, Results & Data Results & Data Vital Signs (Past 12 Hours) Vital Signs Temp Pulse Resp BP Pulse Ox O2 Del Method 03/24/24 13:30 98.1 F 108 H 18 166/94 H 99 Room Air Diagnostic Findings shoulder xray reviewed Supervising Physician Co-Signing Physician Notes I personally saw and examined the patient. I independently reviewed the labs, EKG, imaging, problem list, medication list, past medical history and family history. I verified all real points and agree with Regina Ceballos PA-C with the following exceptions and/or additions: 63 year old female presents to ER as unable to complete activates of daily with her recent humeral fracture. No concerning symptoms prior to falling. O/E NV intact distal to fracture in left finger. A/P Consult orthopedics. PT/OT, plan for placement PG Care Time/CCT Total # of Minutes Spent Total Time Spent with Patient: Total time spent is greater than 50% in coordination of care (as documented) at patient's floor/unit and/or counseling patient: Coding Level of Care Code 57367 INT INP/OBS CARE MIN Diagnoses Left humeral fracture S42.302A Hyperglycemia due to type 2 diabetes mellitus E11.65; Z79.4 Diabetes mellitus mcfp insulin use: with mcfp use Coronary artery disease involving jackson coronary artery of jackson heart, unspecified whether angina present I25.10 Associated angina: unspecified whether angina present Coronary Disease-Associated Artery/Lesion type: [place] artery [place] vs. 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 transplanted heart: jackson heart Qualified Code(s): I25.10 - Atherosclerotic heart disease of jackson coronary artery without angina pectoris
[2024-03-24] MEDS: ACETAMINOPHEN 500 MG TAB PO STA (18:29)
[2024-03-24 18:45] LABS: Basophils # (auto) 0.03 K/uL (0.00-0.20); Basophils % (auto) 0.3 %; Eosinophils # (auto) 0.07 K/uL (0.00-0.50); Eosinophils % (auto) 0.6 %; Hemoglobin 10.2 g/dl (12.0-16.0); Immature Granulocytes # (auto) 0.05 K/uL (0.01-0.20); Immature Granulocytes % (auto) 0.4 %; Lymphocytes # (auto) 2.14 K/uL (1.20-3.40); Lymphocytes % (auto) 18.1 %; Mean Corpuscular Hemoglobin 27.9 pg (25.0-34.0); Mean Platelet Volume 10.3 fL (9.4-12.4); Monocytes # (auto) 1.03 K/uL (0.11-0.59); Monocytes % (auto) 8.7 %; Neutrophils # (auto) 8.51 K/uL (1.40-6.50); Neutrophils % (auto) 71.9 %; Platelet Count 326 K/uL (130-400); RDW Coefficient of Variation 12.6 % (11.5-14.5); RDW Standard Deviation 37.4 fL (36.4-46.3); Red Blood Count 3.66 M/uL (4.20-5.40); White Blood Count 11.83 K/ul (4.8-10.8)
--- NOTE | 2024-03-24 19:00 | Emergency Department Note ---
ED Visit Note I was consulted by the Advanced Practice Provider, Sachin Rm PA-C. I personally made/approved the management plan and take responsibility for the patient management. I performed a substantive portion of the visit. This includes the aspects of: -MDM -I independently interpreted the following studies: X-ray imaging of the left arm revealed a proximal humerus fracture I refer you to the EMR for further details. .
[2024-03-24 19:21] LABS: Alanine Aminotransferase 11 U/L (7-52); Albumin Globulin Ratio 0.8 (0.9-2); Alkaline Phosphatase 134 U/L (34-104); Anion Gap 11 (3-11); Aspartate Aminotransferase 6 U/L (13-39); BUN Creatinine Ratio 16.9 (10-20); Bilirubin,Total 0.7 mg/dl (0.2-1.0); Blood Urea Nitrogen 13 mg/dl (6-23); Carbon Dioxide 25 mmol/L (21-32); Chloride 95 mmol/L (98-107); Globulin 3.6 gm/dl (2.5-4.0); Glucose 334 mg/dl (70-99(Fasting)); Potassium 2.9 mmol/L (3.5-5.1); Sodium 131 mmol/L (136-145); Total Protein 6.6 gm/dl (6.0-8.3)
[2024-03-24] MEDS ORDERED: FAMOTIDINE 20 MG TAB PO PRN (20:05)
[2024-03-24] MEDS ORDERED: MECLIZINE 12.5 MG TAB PO PRN (20:05)
[2024-03-24] MEDS ORDERED: GLUCOSE 10 TAB/TUBE PO PRN (20:05)
[2024-03-24] MEDS ORDERED: CARBOHYDRATES FOR HYPOGLYCEMIA PO PRN (20:05)
[2024-03-24] MEDS ORDERED: ONDANSETRON INJ 2 MG/ML 2 ML VIAL IV PRN (20:05)
[2024-03-24] MEDS ORDERED: DEXTROSE 50% 50 ML SYRINGE IV PRN (20:05)
[2024-03-24] MEDS ORDERED: GLUCOSE 40% GEL 15 GM TUBE PO PRN (20:05)
[2024-03-24] MEDS ORDERED: GLUCAGON FOR INJ 1 MG VIAL SQ PRN (20:05)
[2024-03-24] MEDS: oxyCODONE HCL IR 5 MG TAB (IMMEDIATE RELEASE) PO PRN (20:24)
[2024-03-24] MEDS: Patient's HEIGHT &/or WEIGHT Needed STA (20:50)
[2024-03-24] MEDS: TICAGRELOR 90 MG TAB PO SCH (21:51)
[2024-03-24] MEDS: LANTUS PER UNIT CHARGE SQ SCH (21:51)
[2024-03-24] MEDS: INSULIN ASPART PER UNIT CHARGE SC SCH (21:51)
[2024-03-24] MEDS: ATORVASTATIN 40 MG TAB PO SCH (21:51)
[2024-03-24] MEDS: GABAPENTIN 300 MG CAP PO SCH (21:51)
[2024-03-24] MEDS: INSULIN HUMAN REGULAR PER UNIT 5 UNITS in SYRINGE 4.95 ML IV ONE (23:37)
[2024-03-25] MEDS: MoRPHine SULFATE 2 MG/ML CARP IV STA (00:34)
[2024-03-25] MEDS: ACETAMINOPHEN 500 MG TAB PO SCH (03:03)
[2024-03-25] MEDS: LEVOTHYROXINE SODIUM 88 MCG TABLET PO SCH (05:54)
[2024-03-25] MEDS: buPROPion XL 150 MG TABCR PO SCH (08:10)
[2024-03-25] MEDS: MAGNESIUM OXIDE 400 MG TAB PO SCH (08:10)
[2024-03-25] MEDS: ESCITALOPRAM OXALATE 20 MG TAB PO SCH (08:11)
[2024-03-25] MEDS: FOLIC ACID 1 MG TAB PO SCH (08:11)
[2024-03-25] MEDS: ENOXAPARIN INJ 40 MG/0.4 ML SYR SQ SCH (08:12)
[2024-03-25] MEDS: ASPIRIN 81 MG ECTAB PO SCH (08:12)
[2024-03-25 08:25] LABS: Estimated Average Glucose 292 mg/dl; Hemoglobin A1C 11.8 % (4.5-5.6)
--- NOTE | 2024-03-25 08:53 | Hospitalist Progress Note ---
Date of Service March 25, 2024 Assessment & Plan (1) Left humeral fracture: (2) Hyperglycemia due to type 2 diabetes mellitus: (3) CAD (coronary artery disease): (4) Vitamin B12 deficiency: (5) Vitamin D deficiency: (6) Hypomagnesemia: Plan Yolanda is a 63F with a PMHx of Diabetes, CAD status post stent placement, chronic hypomagnesemia, hypothyroidism who presents to the ER with shoulder pain and inability on ADLs. Patient was seen in the ER on 03/22 for mechanical fall resulting in a left proximal humerus fracture, was placed in a sling given p.o. oxycodone for home and instructed to have orthopedic follow-up. Patient did not go to any orthopedic follow-up appointment to presents to the ER instead. #Left humerus fracture Occurred on 03/22, to have outpt f/u [facility] ortho but returned back to ER for ongoing discomfort not well controlled on oral medications and difficulty caring for herself (lives alone). No new trauma/injury since ER visit 03/22, no new numbness/tingling Orthopedics consulted, opt for conservative management with sling/outpatient follow up. If issues with healing can consider surgery. Pain control: tylenol, oxycodone, morphine for breakthrough Bowel regimen: deferred for now w/ her chronic diarrhea, monitor to add as needed w/ pain control Vit D checked (to be on at baseline) --> LOW 9.8, reports has NOT had this recently. Started 125mcg PO and should be provided rx at dc to continue. encourage compliance Check UA for completeness given unclear fall/reported legs giving out B12 checked w/ neuropathy/falls, on gabapentin 600mg BID at baseline -B12 LOW 107 -IM daily while inpatient scheduled PT/OT consults pending and suspect need for rehab given inability to care for herself at home/lives alone. CM to follow, patient agreeable. #Electrolyte abnormalities: Hypokalemia/Hypomagnesemia/Hyponatremia Notable patient w/ chemistries on admission w/ K 2.9, no mag w/ prior hypomagnesemia and on mag oxide 1200mg PO daily w/ reports diarrhea at baseline despite her DM w/ A1c 11.8 and suspect increased diarrheal losses w/ mag oxide making electrolytes worse. 40meq PO Kcl ordered x 1 along with 2gm IV mag empirically and repeat BMP/Mag ordered which noted K 3.3 following PO and mag LOW 1.2 and additional 3gm IV ordered Given diarrhea on mag oxide, discontinue further mag oxide and started SLOW MAG BID EKG obtained given electrolyte abn/hx CAD and prior reports almost coding as on third floor --> NSR today but if any palpitations/CP/SOB to alert and low threshold to move to monitored bed. Na normal when corrected for Glu however THS checked/wnl BMP, Mag in AM #DMT2 Last A1c 10.7 -Reports doesn't check sugars regularly due to cost for Vince/monitor Home regimen: glimepiride, Januvia, metformin and PO semaglutide (suspect B12 def 2nd to metformin use) -- HOLD ON ADMISSION Glu 334 on admission, no anion gap elevation but electrolyte abn tx as above A1c worse at 11.8. Glycemic consulted for assistance, copious IV mag/dextrose replacement for assistance Will also consult DM educator, hopeful resumption of monitoring device/compliance in f/u Suspect need for start once daily insulin for better control Remains on gabapentin BID for neuropathy, B12 as above/IM replacement ordered Monitor BSGs/adjust SSI as needed #CAD Status post stent placement. Continue statin and ASA and Brilinta EKG obtained as above, no significant ST elevation/depression. No CP reported. Anxiety/Depression - continue Wellbutrin, Lexapro - Vit D/B12 as above, replacement ordered and should be continued Hypothyroid TSH checked/wnl and continued Synthroid at usual dosing B12 deficiency- IM/PO planned at mt Vit D deficiency- PO as above DVT proph: Lovenox SQ Dispo: continued inpatient stay, electrolyte replacement, pain control, therapy evals and eventual rehab planned at mt. CM to follow Admission and Anticipated Discharge Date Admission Date: March 24, 2024 Supervising Physician Co-Signing Physician Notes The patient was not seen by me. The chart was reviewed. Case discussed with MICKI Chowdary. Agree with assessment and plan Subjective Eval this afternoon around lunch, sitting up in bed eating lunch. Getting more potassium. Reports legs gave out w/ fall, did not loose consciousness. Denies urinary sx but UA ordered for eval given weakness. Prior hx low mag, on supplementation, chronic diarrhea. Discussed switch to SLOW MAG. Also discussed Vit D, low, she reports she ran out of supplementation. Will plan new rx at mt. Pain controlled with ordered medications at this time, ortho saw this morning. Agreeable to rehab but unsure where she would go. Discussed CM to f/u and discuss options. No CP/SOB, does have some dizziness at times. EKG obtained/stable. She notes almost was coded in past w/ low electrolytes -- noted to let staff know if having any CP/SOB/palpitations for repeat eval/telemetry monitoring. Also notable A1c >11. She reports not having great compliance w/ checking at home/devices too expensive. Discussed DM educator consult/likely benefit from once daily insulin and close follow up PCP/adjustments to her DM regimen. Questions/concerns addressed at this time. Physical Exam 2 Physical Exam: General: 63yo female, looks older than stated age, sitting up in bed eating lunch, sling in place to her LEFT shoulder, sensation intact HEENT: head atraumatic, normocephalic, mm slightly dry, trachea midline Resp: even/unlabored, slight diminished in the bases, no overt wheezing/rales, on room air CV: RRR, no significant m/r/g, no pitting edema/calf tenderness GI: +BS, soft/slight distension but no overt tenderness : no kiser MSK/Neuro: sling to left arm, flexion/extension of the wrist intact, limited ROM shoulder due to pain, pulses present, sensation intact Psych: AOx3, cooperative with exam Skin: scattered scabs, notable to L anterior knee, no surrounding cellulitis Results & Data Results & Data Vital Signs (Past 12 Hours) Vital Signs Temp Pulse Resp BP Pulse Ox O2 Del Method 03/25/24 06:35 36.8 C 88 16 99/62 L 98 Room Air Laboratory Results 03/25/24 09:53 03/25/24 09:53 Mag 1.2 B12 107 25-OH Vitamin D 9.6 TSH 3.023 Diagnostic Findings Humerus X-Ray 03/24/24 16:20 Clinical History: Fall 3 views of the left humerus are submitted for review. Findings: There is an acute comminuted fracture of the left humeral head and neck with mild displacement of fracture fragments No subluxation or dislocation is seen. No significant arthritic changes are noted. No other osseous abnormality is identified. There are no radiopaque foreign bodies. Impression: Acute fracture of the left humeral head and neck Electronically signed by Alexander Rg 03-24-2024 4:43 PM ECG Additional Comments: NSR, 76bpm, low voltage QRS but no significant ST elevation/depression PG Care Time/CCT Total # of Minutes Spent Total Time Spent with Patient: Total time spent is greater than 50% in coordination of care (as documented) at patient's floor/unit and/or counseling patient: Coding Level of Care Code 98840 SUB INP/OBS CARE 3/50MIN Diagnoses Left humeral fracture S42.302A Hyperglycemia due to type 2 diabetes mellitus E11.65; Z79.4 Diabetes mellitus usp insulin use: with ocean transportation intermediary use Coronary artery disease involving [place] coronary artery of [place] heart, unspecified whether angina present I25.10 Associated angina: unspecified whether angina present Coronary Disease-Associated Artery/Lesion type: [place] artery [place] vs. transplanted heart: [place] heart Vitamin B12 deficiency E53.8 Vitamin D deficiency E55.9 Hypomagnesemia E83.42 (2) Hyperglycemia due to type 2 diabetes mellitus Diabetes mellitus ocean transportation intermediary insulin use: with usp use Qualified Code(s): E11.65 - Type 2 diabetes mellitus with hyperglycemia; Z79.4 - senior care (current) use of insulin (3) CAD (coronary artery disease) Associated angina: unspecified whether angina present Coronary Disease- Associated Artery/Lesion type: [place] artery [place] vs. transplanted heart: n ative heart Qualified Code(s): I25.10 - Atherosclerotic heart disease of [place] coronary artery without angina pectoris
[2024-03-25] MEDS ORDERED: PHARMACY GLYCEMIC MGMT CONSULT PRN (08:55)
[2024-03-25] MEDS: POTASSIUM CHLORIDE CRTAB 20 MEQ TABCR PO STA ×2 (09:05→12:57)
--- NOTE | 2024-03-25 09:55 | Orthopedic Consultation ---
Date of Service March 25, 2024 Assessment & Plan (1) Fracture of head of humerus: She was educated on this fracture and treatment options. She said that she prefers nonoperative management if possible. I discussed nonoperative treatment with her. Continue sling for left upper extremity and no range of motion of the shoulder yet. Sling was adjusted. Recommend keeping the head of the bed elevated for comfort. She can remove the sling to work on elbow and wrist range of motion, as well as hygiene. Encouraged to keep working on finger motion. She will likely need longterm/rehab. Follow up with orthopedics with Dr. Mulligan or Dr. Ponce in approx 2 weeks. I did discuss the possibility for surgery if this doesn't heal, likely would be shoulder arthroplasty. History of Present Illness Reason for Consultation: . Requesting Physician: . Attending Physician: Heriberto Domingo MD .Yolanda is a 63 year old right hand dominant patient that fell 3 days ago while taking her garbage outside. She was seen in the ER on Wednesday 03/22, placed in a sling, discharged home and instructed to follow up as an outpatient with orthopedics. She was having significant shoulder pain and difficulty functioning alone and came back to the hospital, admitted yesterday. She complains of left shoulder pain. Fell on her knee but says that is okay. No other complaints. Allergies Allergy/AdvReac Type Severity Reaction Status Date / Time dulaglutide [From Trulicity] AdvReac Intermediate stomach Verified 01/08/24 13:57 pain albiglutide [From Tanzeum] AdvReac Unknown CAN'T Verified 01/08/24 13:57 REMEMBER Home Medications Medication Instructions Recorded Confirmed Type blood-glucose meter ([employer] 10/15/21 03/24/24 History Autocode Meter kit) aspirin 81 mg tablet,delayed 81 mg PO QAM #30 tabs 10/29/22 03/24/24 Rx release diclofenac sodium 1 % topical gel 2 g EXT QID PRN Pain 02/28/23 03/24/24 History (Voltaren Arthritis Pain) levothyroxine 88 mcg tablet 88 mcg PO DAILYBB 02/28/23 03/24/24 History folic acid 1 mg tablet 1 mg PO QAM #90 tabs 04/07/23 03/24/24 Rx bupropion HCl 150 mg 24 hr tablet, 150 mg PO QAM 90 days #90 tabs 05/05/23 03/24/24 Rx extended release pen needle, diabetic 32 gauge x #200 ea 08/22/23 03/24/24 Rx 5/32" (BD Ultra-Fine [place] Pen Needle) famotidine 20 mg tablet 20 mg PO DAILY PRN Acid Reflux 10/04/23 03/24/24 History tramadol 50 mg tablet 50 mg PO Q6H PRN Pain 10/04/23 03/24/24 History cholecalciferol (vitamin D3) 25 25 mcg PO QAM #0 caps 10/07/23 03/24/24 Rx mcg (1,000 unit) capsule metformin 500 mg tablet,extended 1,000 mg (2 x 500 mg) PO BID #360 10/23/23 03/24/24 Rx release 24 hr tabs escitalopram oxalate 20 mg tablet 20 mg PO QAM #30 tabs 01/05/24 03/24/24 Rx atorvastatin 80 mg tablet 80 mg PO HS #90 tabs 02/13/24 03/24/24 Rx gabapentin 300 mg capsule 600 mg (2 x 300 mg) PO BID #60 caps 02/13/24 03/24/24 Rx ticagrelor 90 mg tablet (Brilinta) 90 mg PO BID #60 tabs 02/13/24 03/24/24 Rx oxycodone 5 mg tablet 5 mg PO Q6H PRN pain #10 tabs 03/22/24 03/24/24 Rx glimepiride 2 mg tablet 4 mg PO QAM 03/24/24 03/24/24 History magnesium oxide 400 mg (241.3 mg 1,200 mg PO QAM 03/24/24 03/24/24 History magnesium) tablet meclizine 12.5 mg tablet 12.5 mg PO TID PRN Dizziness 03/24/24 03/24/24 History polyethylene glycol 3350 17 gram 17 g PO DAILY PRN Constipation 03/24/24 03/24/24 History oral powder packet (Miralax) semaglutide 7 mg tablet 7 mg PO QAM 03/24/24 03/24/24 History sitagliptin phosphate 100 mg 100 mg PO QAM 03/24/24 03/24/24 History tablet (Januvia) Past Med/Surg History Problem List Activity of daily living alteration (Acute) Inadequate pain control (Acute) Left humeral fracture (Acute ~03/22/24) Fall (Acute) Fracture of head of humerus (Acute 03/22/24) displaced fracture of the left humeral head/proximal humeral shaft from a fall. Vertigo Hypokalemia (Acute) Abdominal pain (Acute) Nausea & vomiting (Acute) Hypomagnesemia (Acute) Acute hyperglycemia (Acute) Diarrhea SAMRA (acute kidney injury) (Acute) Tobacco use Prolonged QT interval (Acute) Hyperglycemia due to type 2 diabetes mellitus (Acute) Hypertension Chronic constipation Vitamin D deficiency Diabetes mellitus type 2 in obese Hyperglycemia due to type 2 diabetes mellitus Noncompliance (Chronic) Non compliance with medical treatment (Chronic) Delusional disorder Severe protein-calorie malnutrition Vertigo Dysphagia Early satiety Depression Anxiety (Chronic) Vitamin B12 deficiency Serum gamma globulin increased Psoriasis Obesity Low back pain Drug-induced tremor Arthralgia of multiple sites Tobacco abuse (Chronic) Diabetes type 2, uncontrolled IDDM Postmenopausal bleeding Thickened endometrium Mass of soft tissue Cervical mass Status post insertion of drug-eluting stent into left anterior descending (LAD) artery Chronic vulvitis S/P coronary artery stent placement (Chronic) 2 CHANTAL to LAD 10/22/2020 Diabetic nephropathy associated with type 2 diabetes mellitus Back pain Failure to thrive in adult Medical History Ventricular tachycardia Weakness Fall Cigarette smoker CAD (coronary artery disease) No remaining occlusive disease after 2 LAD drug eluting stents 10/22/20. Follows with Dr. Harris Hypothyroidism Diabetes mellitus GERD (gastroesophageal reflux disease) Acute on chronic combined systolic and diastolic CHF (congestive heart failure) Bradycardia with 41-50 beats per minute Accelerated hypertension Depression Osteoarthritis Chronic headaches NSTEMI (non-ST elevated myocardial infarction) 10/22/2020 s/p 2 CHANTAL Vulvitis Dyslipidemia Surgical History History of cardiac catheterization 10/22/2020 Dominant: Right Left Main (% Stenosis): Normal LAD (% Stenosis): Proximal (99) and Mid (75) Circumflex (% Stenosis): Normal (luminal irregularities) RCA (% Stenosis): Normal (Luminal irregularities) 2 CHANTAL to LAD History of cholecystectomy History of dental surgery History of tonsillectomy Family History Unknown Diabetes Thyroid disorder Father Diabetes Other No family history of adverse response to anesthesia Denies family history of Ovarian cancer Prostate cancer Breast cancer Colorectal cancer Uterine cancer Social History Smoking Status: Former smoker Tobacco Type: Cigarettes Age Started Using Tobacco: 24; Age Quit Using Tobacco: 1; packs per day: 0.5; Cigarettes Per Day: 5; Smoking End Date: 2 months ago; Second Hand Exposure: No; Do You Dip or Chew Tobacco: No; Hx Alcohol Use: No Hx Substance Use: No Preferred Language: Nigerian Communication Ability: Effective Visual Impairment: No Limitations Asset Recovery Specialist Required: No Beliefs That Will Affect Care: None marital status: Single Current Living Situation: Alone Current Living Situation Comment: lives in trailer current occupational status: disabled How many Children do You have: 0 Feels Safe at Home: Yes Safety Concerns: Feels Safe At This Time Safety Concerns Comment: Gets nervous sometimes because she lives alone, gets shaky from anxiety Diet: regular caffeine: Yes Dental Care, Regularly: No Physical Activity Frequency: Does not Exercise Seatbelt Use: always Sunscreen Use: No Assistive Devices: Walker Review of Systems All systems reviewed & are unremarkable except as noted in HPI & below. Physical Exam .alert and oriented. NAD LUE: Sling is not on the arm appropriately. She is tender around the proximal humerus. She can flex and extend her wrist and fingers. NVI. She has shoulder pain with limited movement of her arm. Results & Data Results & Data Laboratory Results . Diagnostic Findings . xrays of the shoulder on 03/22 and the left humerus taken 03/24 show a displaced comminuted proximal humerus fracture. PG Care Time/CCT Total # of Minutes Spent Total Time Spent with Patient: Total time spent is greater than 50% in coordination of care (as documented) at patient's floor/unit and/or counseling patient: Coding Level of Care Code 72008 IN/OBS CONSULT LVL 3,45M Diagnoses Fracture of head of humerus S42.292A Encounter type: initial encounter Fracture type: closed Laterality: left (1) Fracture of head of humerus Encounter type: initial encounter Fracture type: closed Laterality: left Qualified Code(s): S42.292A - Other displaced fracture of upper end of left humerus, initial encounter for closed fracture
[2024-03-25] MEDS: MAGNESIUM SULFATE / D5W 1 GM/100 ML BAG IV SCH ×3 (10:17→14:15)
[2024-03-25 10:23] LABS: Basophils # (auto) 0.03 K/uL (0.00-0.20); Basophils % (auto) 0.3 %; Eosinophils # (auto) 0.28 K/uL (0.00-0.50); Eosinophils % (auto) 2.5 %; Hematocrit (blood only) 29.3 % (37.0-47.0); Hemoglobin 9.9 g/dl (12.0-16.0); Immature Granulocytes # (auto) 0.05 K/uL (0.01-0.20); Immature Granulocytes % (auto) 0.4 %; Lymphocytes # (auto) 1.71 K/uL (1.20-3.40); Lymphocytes % (auto) 15.3 %; Mean Corpuscular Hemoglobin 27.7 pg (25.0-34.0); Mean Corpuscular Hgb Conc 33.8 g/dL (32.0-36.0); Mean Corpuscular Volume 81.8 fL (80.0-100.0); Mean Platelet Volume 10.2 fL (9.4-12.4); Monocytes # (auto) 0.78 K/uL (0.11-0.59); Neutrophils # (auto) 8.31 K/uL (1.40-6.50); Neutrophils % (auto) 74.5 %; Platelet Count 332 K/uL (130-400); RDW Coefficient of Variation 12.6 % (11.5-14.5); RDW Standard Deviation 37.7 fL (36.4-46.3); Red Blood Count 3.58 M/uL (4.20-5.40); White Blood Count 11.16 K/ul (4.8-10.8)
[2024-03-25 10:35] LABS: BUN Creatinine Ratio 16.9 (10-20); Calcium 8.4 mg/dl (8.6-10.3); Creatinine Clr Calc Pharmacy 71.2 ml/min; Magnesium 1.2 mg/dl (1.7-2.4); Potassium 3.3 mmol/L (3.5-5.1)
[2024-03-25 10:49] LABS: Thyroid Stimulating Hormone 3.023 uIu/ml (0.300-4.500)
[2024-03-25] MEDS: CYANOCOBALAMIN 1000 MCG/ML VIAL IM SCH (12:57)
[2024-03-25] MEDS: CHOLECALCIFEROL 125 MCG (5,000 UNITS) TAB PO SCH (12:57)
--- NOTE | 2024-03-25 13:47 | Pharmacy Report ---
Pharmacy Glycemic Short Note 2 - Date of Service March 25, 2024 - Glycemic Short BSG Results (Last 24 hours): 03/24/24 03/24/24 03/24/24 18:22 18:32 20:20 Glucose 334 H* POC Glucose 341 H* 352 H* 03/24/24 03/24/24 03/24/24 20:24 22:53 22:56 Glucose POC Glucose 365 H* 358 H* 339 H* 03/25/24 03/25/24 03/25/24 00:51 07:40 09:53 Glucose 206 H POC Glucose 102 H 133 H 03/25/24 11:46 Glucose POC Glucose 257 H OUTPATIENT ANTIDIABETIC REGIMEN: * Per patient: * Metformin 1000 mg PO BIDM * Semaglutide 7 mg PO daily * Glimepiride 4 mg PO daily HbA1c: 11.8% (03/24/24) ASSESSMENT: * LH is a 63 year old female admitted with left humerus fracture * History of T2DM, known to pharmacy glycemic service due to numerous consultations in the past * Patient was previously on insulin as an outpatient, but per patient this has now been discontinued * Patient prefers nonoperative management of fracture at this time- diet ordered PLAN FOR INPATIENT GLYCEMIC CONTROL: * Hold outpatient oral diabetes medications * Basal insulin * Lantus 10 units SC daily * Lantus 0-5 units SC HS (see EHR for details) * Bolus insulin * NovoLog per scale ACHS or Q6hrs while NPO * Goal Range: Low 120 mg/dL - High 150 mg/dL * Correction Factor: 25 mg/dL/unit * Nutritional / Prandial insulin per carb ratio of 1 unit per 8 grams CHO consumed
[2024-03-25] MEDS: MoRPHine SULFATE 2 MG/ML CARP IV PRN (18:01)
[2024-03-25] MEDS: MAGNESIUM CHLORIDE W/CALCIUM 64MG DELAYED REL TAB PO SCH (20:20)
[2024-03-25] MEDS: LANTUS PER UNIT CHARGE SQ SCH (20:58)
[2024-03-26] MEDS: oxyCODONE HCL IR 5 MG TAB (IMMEDIATE RELEASE) PO PRN (05:53)
[2024-03-26 08:44] LABS: Basophils # (auto) 0.03 K/uL (0.00-0.20); Basophils % (auto) 0.3 %; Eosinophils # (auto) 0.26 K/uL (0.00-0.50); Eosinophils % (auto) 2.7 %; Hematocrit (blood only) 28.2 % (37.0-47.0); Hemoglobin 9.2 g/dl (12.0-16.0); Immature Granulocytes # (auto) 0.04 K/uL (0.01-0.20); Immature Granulocytes % (auto) 0.4 %; Lymphocytes # (auto) 1.71 K/uL (1.20-3.40); Lymphocytes % (auto) 17.4 %; Mean Corpuscular Hemoglobin 27.7 pg (25.0-34.0); Mean Corpuscular Hgb Conc 32.6 g/dL (32.0-36.0); Mean Corpuscular Volume 84.9 fL (80.0-100.0); Mean Platelet Volume 10.3 fL (9.4-12.4); Monocytes # (auto) 0.82 K/uL (0.11-0.59); Monocytes % (auto) 8.4 %; Neutrophils # (auto) 6.95 K/uL (1.40-6.50); Neutrophils % (auto) 70.8 %; Platelet Count 324 K/uL (130-400); RDW Coefficient of Variation 12.8 % (11.5-14.5); RDW Standard Deviation 38.4 fL (36.4-46.3); Red Blood Count 3.32 M/uL (4.20-5.40); White Blood Count 9.81 K/ul (4.8-10.8)
--- NOTE | 2024-03-26 08:54 | Hospitalist Progress Note ---
Date of Service March 26, 2024 Assessment & Plan (1) Left humeral fracture: (2) Hyperglycemia due to type 2 diabetes mellitus: (3) CAD (coronary artery disease): (4) Vitamin B12 deficiency: (5) Vitamin D deficiency: (6) Hypomagnesemia: Plan Yolanda is a 63F with a PMHx of Diabetes, CAD status post stent placement, chronic hypomagnesemia, hypothyroidism who presents to the ER with shoulder pain and inability on ADLs. Patient was seen in the ER on 03/22 for mechanical fall resulting in a left proximal humerus fracture, was placed in a sling given p.o. oxycodone for home and instructed to have orthopedic follow-up. Patient did not go to any orthopedic follow-up appointment to presents to the ER instead. #Left humerus fracture Occurred on 03/22, to have outpt f/u [facility] ortho but returned back to ER for ongoing discomfort not well controlled on oral medications and difficulty caring for herself (lives alone). No new trauma/injury since ER visit 03/22, no new numbness/tingling Orthopedics consulted, opt for conservative management with sling/outpatient follow up. HOWEVER MAY NOW CONSIDER SURGERY Pain control: APAP, oxycodone 5-10mg per pain scale, 1mg IV morphine for breakthrough Bowel regimen as needed: chronic diarrhea resolved w/ switch mag oxide to slow mag Continue sling, ice, elevation Topical voltaren to knees UA not infected appearing, WBC normalizing without abx PT/OT consulted and CM to follow, needs rehab as unsafe at home/lives alone. Pt agreeable. DVT proph: lovenox SQ once daily, pepcid added for GI proph but given hgb 9.2 will change to PPI. Iron studies w/ low trans% sat, ferritin 39.6 and can plan Venofer IV. #Electrolyte abnormalities: Hypokalemia/Hypomagnesemia/Hyponatremia K 2.9 on admission, mag added and LOW 1.2 Copious PO/IV replacement ordered, chronic diarrhea noted on mag oxide 1200mg daily and changed to SLOW MAG BID (should be continue SLOW MAG at dc) EKG w/o significant abn, no CP/SOB reported TSH wnl K improved/stable 4.3 today and mag 2.2. Continue slow mag BID, montior BMP/Mag in AM #DMT2 Glu 334 on admission, no anion gap elevation but electrolyte abn tx as above Last A1c 10.7 -Reports doesn't check sugars regularly due to cost for Vince/monitor. Repeat A1c WORSE at 11.8 Home regimen: glimepiride, Januvia, metformin and PO semaglutide (suspect B12 def 2nd to metformin use) -- HOLD ON ADMISSION Glycemic on consult, appreciate assistance *BSG to 300s last evening, likely from copious IV mag w/ dextrose but also uncontrolled DM. Currently BSG 277/monitor/adjustment as needed Suspect benefit once daily insulin at ok, DM educator consult pending. Rec consider endocrinology ref in f/u PCP for better control if desired #CAD Status post stent placement. Continue statin and ASA and Brilinta EKG obtained as above, no significant ST elevation/depression. No CP reported. Anxiety/Depression continue Wellbutrin, Lexapro Vit D/B12 low and replacement has been ordered/should be continued at ok Hypothyroid TSH checked/wnl and continued Synthroid at usual dosing Vit D deficiency Vit D checked (to be on at baseline) --> LOW 9.8, reports has NOT had this recently. Started 125mcg PO and should be provided rx at ok to continue. encourage compliance B12 deficiency B12 checked w/ neuropathy/falls, on gabapentin 600mg BID at baseline --> B12 LOW 107 -IM daily while inpatient scheduled DVT proph: Lovenox SQ continued, monitor for any bleeding. Dispo: continued inpatient stay, PT/OT consults/rehab planned. Ortho to f/u if decides for surgical correction. PPI once daily given hgb/monitor fecal occult blood. No adbominal pain/increased reflux reported but is slightly lower. Consideration for Venofer IV, will order 200mg IV x1, CBC in AM Admission and Anticipated Discharge Date Admission Date: March 24, 2024 Supervising Physician Co-Signing Physician Notes The patient was not seen by me. The chart was reviewed. Case discussed with MICKI Chowdary. Agree with assessment and plan Subjective Eval this morning, pain stable at present time but requiring morphine on occasion. Feels tired. Electrolytes stable, reports formed BM today. Switched to SLOW mag and will plan to continue. Hgb 9.2 but no bleeding reported. On aspirin/Brilinta at baseline and given IV mag x 5 bags yesterday. Will plan to monitor/added Protonix daily. Will check iron studies/monitor for any bleeding. No CP/SOB reported. Does have some leg edema, trace pitting, some bilateral cramping/calf discomfort at times. Uses topical voltaren at times to knees, will have RN provide as well as new ice for her shoulder. Physical Exam 2 Physical Exam: General: 63yo female, looks older than stated age, sitting up in bed eating lunch, sling in place to her LEFT shoulder, sensation intact, difficulty with ROM 2nd to pain but sensation intact to hand/pulses present HEENT: head atraumatic, normocephalic, mm improved, trachea midline Resp: even/unlabored, slight diminished in the bases, no overt wheezing/rales, on room air CV: RRR, no significant m/r/g, no pitting edema/calf tenderness GI: +BS, soft/slight distension but no overt tenderness : no kiser MSK/Neuro: sling to left arm, flexion/extension of the wrist intact, limited ROM shoulder due to pain, pulses present, sensation intact bilateral leg cramping reported but pulses present, no increased edema r vs l Psych: AOx3, cooperative with exam Skin: scattered scabs, notable to L anterior knee, no surrounding cellulitis Results & Data Results & Data Vital Signs (Past 12 Hours) Vital Signs Temp Pulse Resp BP Pulse Ox O2 Del Method 03/26/24 07:28 36.8 C 68 16 114/74 94 Room Air Laboratory Results 03/26/24 07:44 03/26/24 07:44 Mag 2.2 Iron 56, TIBC 266, Transferrin 190, Trans % sat 21, ferritin 39.6 Folate >22.4 ALP 144 PG Care Time/CCT Total # of Minutes Spent Total Time Spent with Patient: Total time spent is greater than 50% in coordination of care (as documented) at patient's floor/unit and/or counseling patient: Coding Level of Care Code 55947 SUB INP/OBS CARE 3/50MIN Diagnoses Left humeral fracture S42.302A Hyperglycemia due to type 2 diabetes mellitus E11.65; Z79.4 Diabetes mellitus mcc insulin use: with mcc use Coronary artery disease involving [place] coronary artery of [place] heart, unspecified whether angina present I25.10 Associated angina: unspecified whether angina present Coronary Disease-Associated Artery/Lesion type: [place] artery [place] vs. transplanted heart: [place] heart Vitamin B12 deficiency E53.8 Vitamin D deficiency E55.9 Hypomagnesemia E83.42 (2) Hyperglycemia due to type 2 diabetes mellitus Diabetes mellitus mcc insulin use: with mcc use Qualified Code(s): E11.65 - Type 2 diabetes mellitus with hyperglycemia; Z79.4 - nursing home (current) use of insulin (3) CAD (coronary artery disease) Associated angina: unspecified whether angina present Coronary Disease- Associated Artery/Lesion type: [place] artery [place] vs. transplanted heart: n ative heart Qualified Code(s): I25.10 - Atherosclerotic heart disease of [place] coronary artery without angina pectoris
[2024-03-26] MEDS: LANTUS PER UNIT CHARGE SQ SCH (09:06)
[2024-03-26 09:19] LABS: Albumin Globulin Ratio 0.8 (0.9-2); Albumin Level 2.6 gm/dl (3.4-5.0); BUN Creatinine Ratio 18.4 (10-20); Bilirubin,Total 0.5 mg/dl (0.2-1.0); Calcium 8.1 mg/dl (8.6-10.3); Creatinine Clr Calc Pharmacy 72.1 ml/min; Globulin 3.3 gm/dl (2.5-4.0); Magnesium 2.2 mg/dl (1.7-2.4); Phosphorus 3.5 mg/dl (2.5-4.9); Potassium 4.3 mmol/L (3.5-5.1); Total Protein 5.9 gm/dl (6.0-8.3)
[2024-03-26] MEDS: PANTOprazole 40 MG TAB PO SCH (09:45)
[2024-03-26] MEDS: FAMOTIDINE 20 MG TAB PO SCH (09:45)
[2024-03-26 09:48] LABS: Appearance Urine Clear (Clear); Bilirubin Urine Negative (Negative); Blood Urine Negative (Negative); Color Urine Yellow; Glucose Urine UA 3+ (Negative); Ketones Urine Negative (Negative); Leukocyte Esterase Urine Negative (Negative); Nitrite Urine Negative (Negative); Protein Urine Negative (Negative); Specific Gravity Urine 1.018 (1.000-1.030); Urobilinogen Urine Negative (Negative); pH Urine 5.5 (4.5-7.5)
[2024-03-26 10:46] LABS: Ferritin 39.6 ng/ml (8-388)
--- NOTE | 2024-03-26 10:50 | Pharmacy Report ---
Pharmacy Glycemic Short Note 2 - Date of Service March 26, 2024 - Glycemic Short BSG Results (Last 24 hours): 03/25/24 03/25/24 03/25/24 11:46 16:23 20:40 Glucose POC Glucose 257 H 100 H 301 H* 03/25/24 03/26/24 03/26/24 20:43 07:27 07:44 Glucose 256 H POC Glucose 306 H* 273 H OUTPATIENT ANTIDIABETIC REGIMEN: * Per patient: * Metformin 1000 mg PO BIDM * Semaglutide 7 mg PO daily * Glimepiride 4 mg PO daily HbA1c: 11.8% (03/24/24) ASSESSMENT: 03/26/24: * BSGs very labile yesterday, ranging 100-306 mg/dL * Received 34 units of insulin (15 units of basal and 19 units of prandial/correctional bolus) * Will still be conservative with insulin changes given prior documentation of hypoglycemia fearfulness * Overnight checks added per CDE recommendation 03/25/24: * LH is a 63 year old female admitted with left humerus fracture * History of T2DM, known to pharmacy glycemic service due to numerous consultations in the past * Patient was previously on insulin as an outpatient, but per patient this has now been discontinued * Patient prefers nonoperative management of fracture at this time- diet ordered PLAN FOR INPATIENT GLYCEMIC CONTROL: * Hold outpatient oral diabetes medications * Basal insulin * Lantus 15 units SC daily * Bolus insulin * NovoLog per scale ACHS or Q6hrs while NPO * Goal Range: Low 120 mg/dL - High 180 mg/dL * Correction Factor: 30 mg/dL/unit, 40 mg/dL/unit with overnight checks * Nutritional / Prandial insulin per carb ratio of 1 unit per 8 grams CHO consumed
--- NOTE | 2024-03-26 11:17 | Orthopedic Progress Note ---
Date of Service March 26, 2024 Assessment & Plan (1) Fracture of head of humerus: She had questions about further management. We discussed surgery (shoulder replacement) vs nonoperative care. She is unsure about proceeding with surgery and is going to think about it more. Continue sling for LUE. okay to remove for elbow and wrist ROM. d/c planning: looking into rehab should follow up with ortho in 1-2 weeks Subjective . 63 year old with left proximal humerus fx. Having significant shoulder pain. Unsure if she wants to proceed with surgery for this. Review of Systems All systems reviewed & are unremarkable except as noted in HPI & below. Physical Exam . alert and oriented. NAD Left arm: sling on appropriately. Able to flex/extend wrist and fingers. NVI Results & Data Results & Data Laboratory Results . Diagnostic Findings . PG Care Time/CCT Total # of Minutes Spent Total Time Spent with Patient: Total time spent is greater than 50% in coordination of care (as documented) at patient's floor/unit and/or counseling patient: Coding Level of Care Code 86411 SUB INP/OBS CARE 03/13MIN Diagnoses Fracture of head of humerus S42.292A Encounter type: initial encounter Fracture type: closed Laterality: left (1) Fracture of head of humerus Encounter type: initial encounter Fracture type: closed Laterality: left Qualified Code(s): S42.292A - Other displaced fracture of upper end of left humerus, initial encounter for closed fracture
[2024-03-26] MEDS: DICLOFENAC SOD 1% GEL 100 GM TUBE EXT SCH (13:35)
[2024-03-26] MEDS: IRON SUCROSE 200 MG in SODIUM CHLORIDE 0.9% 100 ML IV ONE (17:16)
[2024-03-27] MEDS: INSULIN ASPART PER UNIT CHARGE SC SCH (00:10)
[2024-03-27 07:17] LABS: Albumin Globulin Ratio 0.8 (0.9-2); Albumin Level 2.7 gm/dl (3.4-5.0); BUN Creatinine Ratio 19.3 (10-20); Bilirubin,Total 0.6 mg/dl (0.2-1.0); Calcium 8.5 mg/dl (8.6-10.3); Creatinine Clr Calc Pharmacy 62.3 ml/min; Globulin 3.4 gm/dl (2.5-4.0); Magnesium 1.8 mg/dl (1.7-2.4); Potassium 4.8 mmol/L (3.5-5.1); Total Protein 6.1 gm/dl (6.0-8.3)
[2024-03-27 07:27] LABS: Hematocrit (blood only) 28.7 % (37.0-47.0); Hemoglobin 9.3 g/dl (12.0-16.0); Mean Corpuscular Hemoglobin 27.8 pg (25.0-34.0); Mean Corpuscular Hgb Conc 32.4 g/dL (32.0-36.0); Mean Corpuscular Volume 85.7 fL (80.0-100.0); Mean Platelet Volume 10.4 fL (9.4-12.4); Platelet Count 331 K/uL (130-400); RDW Coefficient of Variation 12.8 % (11.5-14.5); RDW Standard Deviation 39.2 fL (36.4-46.3); Red Blood Count 3.35 M/uL (4.20-5.40); White Blood Count 10.44 K/ul (4.8-10.8)
--- NOTE | 2024-03-27 08:19 | Hospitalist Progress Note ---
Date of Service March 27, 2024 Assessment & Plan (1) Left humeral fracture: (2) Hyperglycemia due to type 2 diabetes mellitus: (3) CAD (coronary artery disease): (4) Vitamin B12 deficiency: (5) Vitamin D deficiency: (6) Hypomagnesemia: Plan Yolanda is a 63F with a PMHx of Diabetes, CAD status post stent placement, chronic hypomagnesemia, hypothyroidism who presents to the ER with shoulder pain and inability on ADLs. Patient was seen in the ER on 03/22 for mechanical fall resulting in a left proximal humerus fracture, was placed in a sling given p.o. oxycodone for home and instructed to have orthopedic follow-up. Patient did not go to any orthopedic follow-up appointment to presents to the ER instead. #Left humerus fracture Occurred on 03/22, to have outpt f/u [facility] ortho but returned back to ER for ongoing discomfort not well controlled on oral medications and difficulty caring for herself (lives alone). No new trauma/injury since ER visit 03/22, no new numbness/tingling Orthopedics consulted, opt for conservative management with sling/outpatient follow up. HOWEVER MAY NOW CONSIDER SURGERY Pain control: APAP, oxycodone 5-10mg per pain scale, 1mg IV morphine for breakthrough Tylenol changed to PRN from q8h scheduled given LFT (s/p albertina) Bowel regimen as needed: chronic diarrhea resolved w/ switch mag oxide to slow mag Continue sling, ice, elevation Topical voltaren to knees UA not infected appearing, WBC normalizing without abx PT/OT consulted and CM to follow, needs rehab as unsafe at home/lives alone. Pt agreeable and referrals to [facility] in place DVT proph: lovenox SQ once daily , Protonix added for GI proph Iron studies w/ low trans% sat, ferritin 39.6 and given Venofer 200mg x 1, plan to start PO iron and can continue #Electrolyte abnormalities: Hypokalemia/Hypomagnesemia/Hyponatremia K 2.9 on admission, mag added and LOW 1.2 and reports chronic diarrhea noted on mag oxide 1200mg daily. Copious PO/IV replacement ordered, switched mag oxide to SLOW MAG BID. EKG obtained as not on admission, no significant abn noted and no CP/SOB reported. Na stable 133, wnl w/ Glu 193. TSH wnl K stable 4.8, mag 1.8 and continue slow mag BID (rx at me) and monitor BMP/Mag in Am to see if needing to increase mag replacement #DMT2 Glu 334 on admission, no anion gap elevation but electrolyte abn tx as above. On glimepiride, Januvia, metformin and PO semaglutide at baseline A1c 10.7--> worse at 11.8, suspect med compliance/diet Glycemic consulted, DM educator Suspect benefit from once daily insulin at [facility] and close f/u at [facility] w/ PCP vs ref to endocrinology #CAD Status post stent placement and remains on ASA/Brilinta, lipitor 80mg. No CP/SOB reported Anxiety/Depression continue Wellbutrin, Lexapro Vit D/B12 low and replacement has been ordered/should be continued at [facility] Hypothyroid TSH checked/wnl and continued Synthroid at usual dosing Vit D deficiency Vit D checked (to be on at baseline, not having) --> LOW 9.8, reports has NOT had this recently. Started 125mcg PO and should be provided rx at [facility] to continue. encourage compliance B12 deficiency B12 checked w/ neuropathy/falls, on gabapentin 600mg BID at baseline --> B12 LOW 107. Has received IM x 3 inpatient, will transition to 1000mcg PO daily and should be continued at [facility] especially with ongoing metformin use DVT proph: Lovenox SQ continued, monitor for any bleeding. Dispo: continued inpatient stay and referrals pending for [facility], CM following. PO iron started/continues on mag oxide. WBC normalized. Admission and Anticipated Discharge Date Admission Date: March 24, 2024 Supervising Physician Co-Signing Physician Notes The patient was not seen by me. The chart was reviewed. Case discussed with MICKI Chowdary. Agree with assessment and plan Subjective Eval this morning, medicated for pain/controlled with ordered meds. Diarrhea slowed/resolved, does have some on occasion but not like it was. Last BM documented 2/ but reports has moved daily. Electrolytes stable. Has chronic cramping/RLS symptoms, iron 56 but ferritin only 39 and Venofer IV x 1 yesterday/plan to start daily. Plan to check overnight sleep study given possible underlying KEMI/poor sleep as well. Ongoing placement for rehab at [facility] as lives alone. No CP/SOB, on RA 94% Questions/concerns addressed at this time. Physical Exam 2 Physical Exam: General: 63yo female, looks older than stated age, sitting up in bed eating lunch, sling in place to her LEFT shoulder, sensation intact, difficulty with ROM 2nd to pain but sensation intact to hand/pulses present HEENT: head atraumatic, normocephalic, mm improved, trachea midline Resp: even/unlabored, slight diminished in the bases, no overt wheezing/rales, on room air 96% CV: RRR, no significant m/r/g, no pitting edema/calf tenderness GI: +BS, soft, no overt tenderness : no kiser MSK/Neuro: sling to left arm, flexion/extension of the wrist intact, limited ROM shoulder due to pain, pulses present, sensation intact bilateral leg cramping reported but pulses present, no increased edema r vs l Psych: AOx3, cooperative with exam Skin: scattered scabs, notable to L anterior knee, no surrounding cellulitis Results & Data Results & Data Vital Signs (Past 12 Hours) Vital Signs Temp Pulse Resp BP Pulse Ox O2 Del Method 03/27/24 07:02 36.8 C 73 18 124/71 94 Room Air Laboratory Results 03/27/24 06:27 03/27/24 06:27 <Mag 1.8 AST 52 ALP 274 PG Care Time/CCT Total # of Minutes Spent Total Time Spent with Patient: Total time spent is greater than 50% in coordination of care (as documented) at patient's floor/unit and/or counseling patient: Coding Level of Care Code 16861 SUB INP/OBS CARE 3/50MIN Diagnoses Left humeral fracture S42.302A Hyperglycemia due to type 2 diabetes mellitus E11.65; Z79.4 Diabetes mellitus intermodal dispatcher insulin use: with intermodal dispatcher use Coronary artery disease involving [place] coronary artery of [place] heart, unspecified whether angina present I25.10 Associated angina: unspecified whether angina present Coronary Disease-Associated Artery/Lesion type: [place] artery [place] vs. transplanted heart: [place] heart Vitamin B12 deficiency E53.8 Vitamin D deficiency E55.9 Hypomagnesemia E83.42 (2) Hyperglycemia due to type 2 diabetes mellitus Diabetes mellitus fdc insulin use: with fdc use Qualified Code(s): E11.65 - Type 2 diabetes mellitus with hyperglycemia; Z79.4 - snf (current) use of insulin (3) CAD (coronary artery disease) Associated angina: unspecified whether angina present Coronary Disease- Associated Artery/Lesion type: [place] artery [place] [facility] Qualified Code(s): I25.10 - Atherosclerotic heart disease of [place] coronary artery without angina pectoris
[2024-03-27] MEDS: FERROUS SULFATE 325 MG TAB PO SCH (12:42)
[2024-03-27] MEDS: LANTUS PER UNIT CHARGE SQ SCH (21:00)
[2024-03-28 06:48] LABS: Hematocrit (blood only) 29.2 % (37.0-47.0); Hemoglobin 9.6 g/dl (12.0-16.0); Mean Corpuscular Hemoglobin 28.1 pg (25.0-34.0); Mean Corpuscular Hgb Conc 32.9 g/dL (32.0-36.0); Mean Corpuscular Volume 85.4 fL (80.0-100.0); Mean Platelet Volume 9.9 fL (9.4-12.4); Platelet Count 347 K/uL (130-400); RDW Coefficient of Variation 12.9 % (11.5-14.5); RDW Standard Deviation 39.4 fL (36.4-46.3); Red Blood Count 3.42 M/uL (4.20-5.40); White Blood Count 10.81 K/ul (4.8-10.8)
[2024-03-28 07:04] LABS: Albumin Level 2.8 gm/dl (3.4-5.0); BUN Creatinine Ratio 21.3 (10-20); Bilirubin Direct 0.2 mg/dl (0-0.2); Bilirubin,Total 0.5 mg/dl (0.2-1.0); Calcium 8.9 mg/dl (8.6-10.3); Creatinine Clr Calc Pharmacy 68.5 ml/min; Magnesium 1.5 mg/dl (1.7-2.4); Potassium 4.8 mmol/L (3.5-5.1); Total Protein 6.3 gm/dl (6.0-8.3)
--- NOTE | 2024-03-28 08:09 | Hospitalist Progress Note ---
Date of Service March 28, 2024 Assessment & Plan (1) Left humeral fracture: Plan: Yolanda is a 63F with a PMHx of Diabetes, CAD status post stent placement, chronic hypomagnesemia, hypothyroidism who presents to the ER with shoulder pain and inability on ADLs. Patient was seen in the ER on 03/22 for mechanical fall resulting in a left proximal humerus fracture, was placed in a sling given p.o. oxycodone for home and instructed to have orthopedic follow-up. Patient did not go to any orthopedic follow-up appointment to presents to the ER instead. #Left humerus fracture Occurred on 03/22, to have outpt f/u [facility] ortho but returned back to ER for ongoing discomfort not well controlled on oral medications and difficulty caring for herself (lives alone). No new trauma/injury since ER visit 03/22, no new numbness/tingling Ortho consult, sling in place. Possible eventual surgery Pain control: tylenol changed to prn given LFT elevation (no belly pain, is s/p albertina), oxycodone 5-10mg prn, morphine decreased to 0.5mg prn for breakthrough and can adjust as needed Continue ice, elevation Ongoing pain today, slightly worse swelling to shoulder and prior imaging noting impacted/displaced fracture left humeral head/proximal humeral shaft without dislocation but did note soft tissue swelling and will obtain CT imaging for further eval/possible fluid collection and will have ortho f/u pending imaging reports as WBC normalized prior without abx however slight elevation today ?2nd infection vs hematoma vs stress from fracture/pain, has been afebrile. UA did not appear infected. PT/OT consulted and will need rehab at [facility] as unsafe at home/lives alone and ref to [facility] DVT proph: Lovenox SQ once daily, PPI for GI proph Monitor labs/exam in AM (2) Hyperglycemia due to type 2 diabetes mellitus: Plan: Elevated Glu 334 on admission, A1c worse at 11.8 from prior 10.7 and on glimepiride, Januvia, metformin and PO semaglutide at baseline which have been held on admission Glycemic consulted BSGs acceptable 180-240s and appreciate glycemic assistance. DM educator consult pending. Suspect benefit insulin at [facility], possible endocrinology referral (3) CAD (coronary artery disease): Plan: Status post stent placement and remains on ASA/Brilinta, Lipitor 80mg. No CP reported (4) Vitamin B12 deficiency: Plan: B12 checked w/ neuropathy/falls, on gabapentin 600mg BID at baseline --> B12 LOW 107. Has received IM x 3 inpatient, now transitioned to 1000mcg PO daily and should be continued at [facility] (5) Vitamin D deficiency: Plan: Vit D checked (to be on at baseline, not having) --> LOW 9.8, reports has NOT had this recently. Started 125mcg PO -- encourage compliance in f/u, will need new rx at [facility] (6) Hypomagnesemia: Plan: chronic, checked and low on admission, on mag oxide 1200mg po daily but w/ reports chronic diarrhea and suspect worsened w/ mag oxide switched to slow mag BID and less diarrhea reported but checked again w/ AM labs to ensure not needing to increase PO and was again low and IV replacement ordered and increased slow mag to TID F/u BMP/Mag in AM, K also stabilized and will monitor w/ continued mag replacement. ?underlying mag wasting. ?consider ref to nephro at [facility] (7) Hypothyroidism: Plan: continue Synthroid at usual dosing, TSH wnl on check (8) Iron deficiency: Plan: iron stores ok but ferritin low 39 and was given Venofer 200mg IV x 1, started PO iron once daily. No bleeding reported (did order fecal occult prior but was not obtained but note could be falsely positive now that started on PO iron) Plan Anxiety/Depression continue Wellbutrin, Lexapro. Vit D/B12 low and replacement has been ordered/should be continued at [facility] DVT proph: Lovenox SQ continued, PPI for GI proph. Monitor to hold if any hematoma on CT imaging/etc but no bleeding in stool reported/observed and UA w/o blood Dispo: continued inpatient stay, ongoing pain control/electrolyte replacement. CT shoulder/humerus for today and plan for f/u with ortho in AM. PO iron started and converted B12 to PO. referrals pending for [facility] following Admission and Anticipated Discharge Date Admission Date: March 24, 2024 Supervising Physician Co-Signing Physician Notes The patient was not seen by me. The chart was reviewed. Case discussed with MICKI Chowdary. Agree with assessment and plan Subjective EVal this morning, pain to shoulder/not improved, agile scrum coach strength about the same/sensation intact but increased swelling/discomfort at shoulder and discussed CT imaging, agreeable. Will f/u with ortho following imaging as prior shoulder xray w/ impacted/displaced fracture left humeral head/proximal humeral shaft without dislocation but did note soft tissue swelling. Decent appetite, to get morphine for uncontrolled pain. Moving bowels. Physical Exam 2 Physical Exam: General: 63yo female, looks older than stated age, sitting up in bed eating breakfast, NAD, reporting ongoing pain to her left shoulder HEENT: head atraumatic, normocephalic, mm improved, trachea midline Resp: even/unlabored, slight diminished in the bases, no overt wheezing/rales, on room air 96% CV: RRR, no significant m/r/g, no pitting edema/calf tenderness GI: +BS, soft, no overt tenderness : no kiser MSK/Neuro: sling to left arm, increased swelling to shoulder/upper left arm but pulses present/sensation intact and fingers mobile/improvement in agile scrum coach strength Psych: AOx3, cooperative with exam Skin: scattered scabs, notable to L anterior knee, no surrounding cellulitis Results & Data Results & Data Vital Signs (Past 12 Hours) Vital Signs Temp Pulse Pulse Resp BP Pulse Ox Pulse Ox 03/28/24 07:35 36.7 C 81 16 108/56 L 95 03/28/24 02:30 75 97 03/27/24 22:22 77 97 03/27/24 20:21 36.9 C 80 17 130/88 94 O2 Del Method O2 Del Method 03/28/24 07:35 Room Air 03/28/24 02:30 Room Air 03/27/24 22:22 Room Air 03/27/24 20:21 Room Air Laboratory Results 03/28/24 06:16 03/28/24 06:16 Mag 1.5 TB 0.5, AST 23, ALT 20, ALP 240 Albumin 2.8 Diagnostic Findings Chest X-Ray 03/28/24 08:08 XR chest 1V portable HISTORY: 63 years-old Female leukocytosis COMPARISON: Chest x-ray 10/04/2023, humerus radiographs to March 24, 2024. TECHNIQUE: AP view the chest FINDINGS: Cardiac silhouette is enlarged. Mild chronic interstitial coarsening. No pneumothorax, pleural effusion or airspace consolidation. Spondylitic spurring in the spine. Acute, comminuted, impacted and displaced left proximal humeral fracture again noted. IMPRESSION: 1. Cardiomegaly without acute process. 2. Acute proximal left humeral fracture redemonstrated. ACT 112: Negative or not required by law. The above report was generated using voice recognition software. It may contain grammatical, syntax or spelling errors. Electronically signed by: Willard Cooper M.D. 03/28/2024 9:28 AM PG Care Time/CCT Total # of Minutes Spent Total Time Spent with Patient: Total time spent is greater than 50% in coordination of care (as documented) at patient's floor/unit and/or counseling patient: Coding Level of Care Code 88453 SUB INP/OBS CARE 350MIN Diagnoses Left humeral fracture S42.302A Hyperglycemia due to type 2 diabetes mellitus E11.65; Z79.4 Diabetes mellitus termite treater helper insulin use: with termite treater helper use Coronary artery disease involving [place] coronary artery of [place] heart, unspecified whether angina present I25.10 Associated angina: unspecified whether angina present Coronary Disease-Associated Artery/Lesion type: [place] artery [place] vs. transplanted heart: [place] heart Vitamin B12 deficiency E53.8 Vitamin D deficiency E55.9 Hypomagnesemia E83.42 Hypothyroidism, unspecified type E03.9 Hypothyroidism type: unspecified Iron deficiency E61.1 (2) Hyperglycemia due to type 2 diabetes mellitus Diabetes mellitus termite treater helper insulin use: with half-way use Qualified Code(s): E11.65 - Type 2 diabetes mellitus with hyperglycemia; Z79.4 - exterminator helper termite (current) use of insulin (3) CAD (coronary artery disease) Associated angina: unspecified whether angina present Coronary Disease- Associated Artery/Lesion type: [place] artery [place] vs. transplanted heart: n ative heart Qualified Code(s): I25.10 - Atherosclerotic heart disease of [place] coronary artery without angina pectoris (7) Hypothyroidism Hypothyroidism type: unspecified Qualified Code(s): E03.9 - Hypothyroidism, unspecified
[2024-03-28] MEDS: CYANOCOBALAMIN (B-12) 500 MCG TABLET PO SCH (08:34)
[2024-03-28] MEDS: MAGNESIUM SULFATE / D5W 1 GM/100 ML BAG IV SCH (09:27)
--- NOTE | 2024-03-28 09:30 | XRay Report ---
XR chest 1V portable HISTORY: 63 years-old Female leukocytosis COMPARISON: Chest x-ray 10/04/2023, humerus radiographs to March 24, 2024. TECHNIQUE: AP view the chest FINDINGS: Cardiac silhouette is enlarged. Mild chronic interstitial coarsening. No pneumothorax, pleural effusi on or airspace consolidation. Spondylitic spurring in the spine. Acute, comminuted, impacted and disp laced left proximal humeral fracture again noted. IMPRESSION: 1. Cardiomegaly without acute process. 2. Acute proximal left humeral fracture redemonstrated. ACT 112: Negative or not required by law. The above report was generated using voice recognition software. It may contain grammatical, syntax o r spelling errors. Electronically signed by: Willard Cooper M.D. 03/28/2024 9:28 AM
[2024-03-28] MEDS: MoRPHine SULFATE 2 MG/ML CARP IV PRN (10:26)
[2024-03-28] MEDS: MAGNESIUM CHLORIDE W/CALCIUM 64MG DELAYED REL TAB PO SCH (12:04)
[2024-03-28 14:49] LABS: Appearance Urine Clear (Clear); Bacteria Urine Automated None Seen (None Seen); Bilirubin Urine Negative (Negative); Blood Urine Negative (Negative); Cast Urine Automated 0-2 /lpf (0-2); Color Urine Yellow; Glucose Urine UA 3+ (Negative); Ketones Urine Negative (Negative); Leukocyte Esterase Urine 1+ (Negative); Nitrite Urine Negative (Negative); Protein Urine Negative (Negative); RBC Urine Automated 0-2 /hpf (0-2); Specific Gravity Urine 1.016 (1.000-1.030); Urobilinogen Urine Negative (Negative); pH Urine 5.5 (4.5-7.5)
--- NOTE | 2024-03-28 15:35 | CT Scan Report ---
INDICATION: Follow-up fracture. Shoulder pain. COMPARISON: No relevant priors available. TECHNIQUE: Axial CT images of the left humerus and left shoulder were obtained following IV contrast administration. Coronal and sagittal reformations were reviewed. FINDINGS: Comminuted, impacted left humeral head/proximal shaft fracture. Inferior subluxation of the shoulder joint likely related to soft tissue swelling/small joint effusion. Remaining osseous structures intact. No drainable fluid collection. No lytic or blastic bony lesions. No evidence of cortical erosion. Visualized portions of the thoracic aorta, left subclavian, brachial arteries and visualized portions of the radial/ulnar arteries are patent without significant stenosis or dissection/occlusion. Soft tissue swelling. Visualized lung bradley unremarkable. IMPRESSION: Comminuted, impacted left humeral head/proximal shaft fracture. Inferior subluxation of the shoulder joint likely related to soft tissue swelling/small joint effusion. Electronically signed by Danilo Arias 03-28-2024 3:34 PM
--- NOTE | 2024-03-29 08:33 | Hospitalist Progress Note ---
Date of Service March 29, 2024 Assessment & Plan (1) Left humeral fracture: Plan: Yolanda is a 63F with a PMHx of Diabetes, CAD status post stent placement, chronic hypomagnesemia, hypothyroidism who presents to the ER with shoulder pain and inability on ADLs. Patient was seen in the ER on 03/22 for mechanical fall resulting in a left proximal humerus fracture, was placed in a sling given p.o. oxycodone for home and instructed to have orthopedic follow-up. Patient did not go to any orthopedic follow-up appointment to presents to the ER instead. Occurred on 03/22, to have outpt f/u [facility] ortho but returned back to ER for ongoing discomfort not well controlled on oral medications and difficulty caring for herself (lives alone). No new trauma/injury since ER visit 03/22, no new numbness/tingling #Left humerus fracture Xray on admission noted Acute fracture of the left humeral head and neck . Ortho consulted/sling in place. CT obtained given ongoing /worse pain on 03/28 and noted "Comminuted, impacted left humeral head/proximal shaft fracture. Inferior subluxation of the shoulder joint likely related to soft tissue swelling/small joint effusion" Messaged ortho for review, consideration for surgery.Dr Mulligan to review OR schedule/case, possibly later this week pending inpatient stay Continue ice, elevation, sling. Pain control being provided with APAP/Oxycodone, low dose morphine for breakthrough Moving her bowels, last BM 03/28 reported (not documented however) PT/OT consults, Lovenox SQ for DVT proph (2) Hyperglycemia due to type 2 diabetes mellitus: Plan: Elevated Glu 334 on admission A1c worse at 11.8 from prior 10.7 and on glimepiride, Januvia, metformin and PO semaglutide at baseline which have been held on admission. DM diet Glycemic consulted and BSGs acceptable for A1c 11.8 and DM educator consulted. Likely would benefit from once daily insulin at [place]/ref to endocrinology [place] (3) CAD (coronary artery disease): Plan: Status post stent placement and remains on ASA/Brilinta, Lipitor 80mg. Monitor for any issues. (4) Vitamin B12 deficiency: Plan: B12 checked w/ neuropathy/falls, on gabapentin 600mg BID at baseline--> B12 LOW 107. Has received IM x 3 inpatient, now transitioned to 1000mcg PO daily and should be continued at [place] (5) Vitamin D deficiency: Plan: Vit D checked (to be on at baseline, not having) --> LOW 9.8, reports has NOT had this recently. Started 125mcg PO -- encourage compliance in f/u, will need new rx at [place] (6) Hypomagnesemia: Plan: chronic lows, on mag oxide but also reported diarrhea, likely worsened mag loss stopped mag oxide, placed on SLOW MAG BID and was low at 1.5 on 03/28 and increased PO to TID and stable at 1.9 on AM labs. Monitor in AM but if again low consider additional urine testing to see about mag wasting/consider ref to nephro outpt (7) Hypothyroidism: Plan: TSH upper limits of normal but in range and continues current home dosing (8) Iron deficiency: Plan: iron stores ok but ferritin low 39 and was given Venofer 200mg IV x 1 and started PO iron once daily. No bleeding reported (did order fecal occult prior but was not obtained but note could be falsely positive now that started on PO iron) however hgb lower on todays labs (noting had been getting copious IV mag replacement/some aspect of dilution suspcted as well) Monitor repeat blood counts this afternoon/have increased PPI to BID for GI proph on ASA/Brilinta at baseline Plan DVT proph: Lovenox SQ continued, PPI for GI proph. Dispo: continued inpatient stay, pain control/ortho repeat eval and likely eventual surgery. CM following/ref to [facility] and [facility] in place Monitor for any worsened bleeding/anemia, no blood in stool or dark tarry stools reported and no blood on UA. Fecal occult ordered but does have low ferritin/PO iron being provided and on Lovenox SQ for DVT proph but may need to consider holding pending repeat counts/exam Admission and Anticipated Discharge Date Admission Date: March 24, 2024 Supervising Physician Co-Signing Physician Notes The patient was not seen by me. The chart was reviewed. Case discussed with MICKI Chowdary. Agree with assessment and plan Subjective Eval this morning, ongoing pain to shoulder. Have asked ortho to see, reports does not believe has been around. Has gotten tylenol/oxycodone, requesting dose of morphine. Does have some epigastric/reflux discomfort, no overt tenderness/guarding but will adjust PPI to BID for now/monitor response. Last BM 03/28 reported, added colace BID. Message to orthopedics for follow up discussion. Questions/concerns addressed at this time. Physical Exam 2 Physical Exam: General: 63yo female resting in bed, reports ongoing pain to her left shoulder, sling in place, NAD but requesting pain medication HEENT: head atraumatic, normocephalic, mmm, trachea midline Resp: even/unlabored, no wheezing/rales, on room air CV: RRR, no significant m/r/g, equal b/l le edema, pulses present, no increased warmth/tenderness. does have scab anterior L knee GI: +BS, soft/NT no kiser MSK/Neuro: LEFT sling in place, slight increased swelling to shoulder/tenderness to palpation, no overt hematoma/erythema guarded with any movement to shoulder but able to wiggle fingers, sensation intact. 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 TECHNIQUE: AP view the chest FINDINGS: Cardiac silhouette is enlarged. Mild chronic interstitial coarsening. No pneumothorax, pleural effusion or airspace consolidation. Spondylitic spurring in the spine. Acute, comminuted, impacted and displaced left proximal humeral fracture again noted. IMPRESSION: 1. Cardiomegaly without acute process. 2. Acute proximal left humeral fracture redemonstrated. ACT 112: Negative or not required by law. The above report was generated using voice recognition software. It may contain grammatical, syntax or spelling errors. Electronically signed by: Willard Cooper M.D. 03/28/2024 9:[address] 03/28/24 11:01 INDICATION: Follow-up fracture. Shoulder pain. COMPARISON: No relevant priors available. TECHNIQUE: Axial CT images of the left humerus and left shoulder were obtained following IV contrast administration. Coronal and sagittal reformations were reviewed. FINDINGS: Comminuted, impacted left humeral head/proximal shaft fracture. Inferior subluxation of the shoulder joint likely related to soft tissue swelling/small joint effusion. Remaining osseous structures intact. No drainable fluid collection. No lytic or blastic bony lesions. No evidence of cortical erosion. Visualized portions of the thoracic aorta, left subclavian, brachial arteries and visualized portions of the radial/ulnar arteries are patent without significant stenosis or dissection/occlusion. Soft tissue swelling. Visualized lung bradley unremarkable. IMPRESSION: Comminuted, impacted left humeral head/proximal shaft fracture. Inferior subluxation of the shoulder joint likely related to soft tissue swelling/small joint effusion. Electronically signed by Danilo Arias 03-28-2024 3:[address] 03/28/24 11:01 INDICATION: Follow-up fracture. Shoulder pain. COMPARISON: No relevant priors available. TECHNIQUE: Axial CT images of the left humerus and left shoulder were obtained following IV contrast administration. Coronal and sagittal reformations were reviewed. FINDINGS: Comminuted, impacted left humeral head/proximal shaft fracture. Inferior subluxation of the shoulder joint likely related to soft tissue swelling/small joint effusion. Remaining osseous structures intact. No drainable fluid collection. No lytic or blastic bony lesions. No evidence of cortical erosion. Visualized portions of the thoracic aorta, left subclavian, brachial arteries and visualized portions of the radial/ulnar arteries are patent without significant stenosis or dissection/occlusion. Soft tissue swelling. Visualized lung bradley unremarkable. IMPRESSION: Comminuted, impacted left humeral head/proximal shaft fracture. Inferior subluxation of the shoulder joint likely related to soft tissue swelling/small joint effusion. Electronically signed by Danilo Arias 03-28-2024 3:34 PM PG Care Time/CCT Total # of Minutes Spent Total Time Spent with Patient: Total time spent is greater than 50% in coordination of care (as documented) at patient's floor/unit and/or counseling patient: Coding Level of Care Code 66054 SUB INP/OBS CARE 3/50MIN Diagnoses Left humeral fracture S42.302A Hyperglycemia due to type 2 diabetes mellitus E11.65; Z79.4 Diabetes mellitus alf insulin use: with alf use Coronary artery disease involving [place] coronary artery of [place] heart, unspecified whether angina present I25.10 Associated angina: unspecified whether angina present Coronary Disease-Associated Artery/Lesion type: [place] artery [place] vs. 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 transplanted heart: n ative heart Qualified Code(s): I25.10 - Atherosclerotic heart disease of [place] coronary artery without angina pectoris (7) Hypothyroidism Hypothyroidism type: unspecified Qualified Code(s): E03.9 - Hypothyroidism, unspecified
[2024-03-29 08:40] LABS: Basophils # (auto) 0.03 K/uL (0.00-0.20); Basophils % (auto) 0.3 %; Eosinophils # (auto) 0.24 K/uL (0.00-0.50); Eosinophils % (auto) 2.8 %; Hemoglobin 9.2 g/dl (12.0-16.0); Immature Granulocytes # (auto) 0.04 K/uL (0.01-0.20); Immature Granulocytes % (auto) 0.5 %; Lymphocytes # (auto) 1.98 K/uL (1.20-3.40); Lymphocytes % (auto) 23.1 %; Mean Corpuscular Hemoglobin 28.3 pg (25.0-34.0); Mean Corpuscular Hgb Conc 32.9 g/dL (32.0-36.0); Mean Corpuscular Volume 86.2 fL (80.0-100.0); Mean Platelet Volume 9.9 fL (9.4-12.4); Monocytes % (auto) 8.2 %; Neutrophils # (auto) 5.59 K/uL (1.40-6.50); Neutrophils % (auto) 65.1 %; Platelet Count 385 K/uL (130-400); RDW Coefficient of Variation 12.9 % (11.5-14.5); RDW Standard Deviation 39.7 fL (36.4-46.3); Red Blood Count 3.25 M/uL (4.20-5.40); White Blood Count 8.58 K/ul (4.8-10.8)
[2024-03-29 08:52] LABS: Albumin Level 2.8 gm/dl (3.4-5.0); BUN Creatinine Ratio 16.9 (10-20); Bilirubin Direct 0.2 mg/dl (0-0.2); Bilirubin,Total 0.5 mg/dl (0.2-1.0); Calcium 8.9 mg/dl (8.6-10.3); Creatinine Clr Calc Pharmacy 61.6 ml/min; Magnesium 1.9 mg/dl (1.7-2.4); Potassium 4.3 mmol/L (3.5-5.1); Total Protein 6.4 gm/dl (6.0-8.3)
[2024-03-29] MEDS: LANTUS PER UNIT CHARGE SQ SCH ×2 (09:31→21:45)
[2024-03-29] MEDS: ACETAMINOPHEN 500 MG TAB PO PRN (09:49)
[2024-03-29] MEDS: DOCUSATE SODIUM 100 MG CAP PO SCH (11:35)
--- NOTE | 2024-03-29 12:14 | Orthopedic Progress Note ---
Date of Service March 29, 2024 Assessment & Plan (1) Fracture of head of humerus: Reviewed the CT scan results with the patient, which demonstrates the comminuted, impacted left proximal humerus fracture, with inferior subluxation of the glenohumeral joint patient is now interested in surgical intervention for the left proximal humerus fracture. We further discussed her options, to include the most highly recommended surgical option of a reverse left total shoulder arthroplasty. Discussed that this would allow her to get back to use of her left shoulder and be more functional on a sooner timeline than allowing a fracture to heal. Additionally, this would likely also provide her with better pain relief, and in hopefully a more expedient manner. Case has been indirectly discussed with Dr. Mulligan, who would be the likely performing surgeon. We talked about her options perioperatively, and it seems that she will need some inpatient rehab services. Case management has placed referrals to [facility] and [facility]. We will have further discussion with the patient once a more definitive timeline for the treatment plan has been determined. At this point, if she remains inpatient for a few days this week, then possibly her surgery could be accomplished on or Friday, but if she is transferred to rehab prior to then, then she could follow-up as an outpatient in [place] [facility], and surgery can be scheduled at that time. Subjective 63-year-old female patient states that she is continuing to have quite significant left shoulder pain. After thinking things over, and experiencing the pain recently with even slight movements, she now feels that she would like to proceed with surgical intervention. Patient says that she lives alone; her brother does live in the area, but he works, so could not be with her very often for help. Review of Systems All systems reviewed & are unremarkable except as noted in HPI & below. Physical Exam GENERAL: AA&Ox3, NAD. Pleasant, affect is calm. Sitting upright in bed with simple sling donned to left shoulder/upper extremity; sling well-fitting. RESPIRATORY: Normal respiratory effort with no signs of distress. CHEST/AXILLA: Chest movement symmetrical. No deformities noted. CARDIOVASCULAR: No edema noted. SKIN: [place], warm and dry. MS/EXTREMITY: + wrist/digit AROM. Median/Ulnar/Radial nerve distributions intact to sensory/motor. Radial pulse intact, 2+. Patient holds her left shoulder in a protective, guarded manner. Results & Data Results & Data Laboratory Results . Diagnostic Findings Humerus CT 03/28/24 11:01 INDICATION: Follow-up fracture. Shoulder pain. COMPARISON: No relevant priors available. TECHNIQUE: Axial CT images of the left humerus and left shoulder were obtained following IV contrast administration. Coronal and sagittal reformations were reviewed. FINDINGS: Comminuted, impacted left humeral head/proximal shaft fracture. Inferior subluxation of the shoulder joint likely related to soft tissue swelling/small joint effusion. Remaining osseous structures intact. No drainable fluid collection. No lytic or blastic bony lesions. No evidence of cortical erosion. Visualized portions of the thoracic aorta, left subclavian, brachial arteries and visualized portions of the radial/ulnar arteries are patent without significant stenosis or dissection/occlusion. Soft tissue swelling. Visualized lung bradley unremarkable. IMPRESSION: Comminuted, impacted left humeral head/proximal shaft fracture. Inferior subluxation of the shoulder joint likely related to soft tissue swelling/small joint effusion. Electronically signed by Danilo Arias 03-28-2024 3:[address] 03/28/24 11:01 INDICATION: Follow-up fracture. Shoulder pain. COMPARISON: No relevant priors available. TECHNIQUE: Axial CT images of the left humerus and left shoulder were obtained following IV contrast administration. Coronal and sagittal reformations were reviewed. FINDINGS: Comminuted, impacted left humeral head/proximal shaft fracture. Inferior subluxation of the shoulder joint likely related to soft tissue swelling/small joint effusion. Remaining osseous structures intact. No drainable fluid collection. No lytic or blastic bony lesions. No evidence of cortical erosion. Visualized portions of the thoracic aorta, left subclavian, brachial arteries and visualized portions of the radial/ulnar arteries are patent without significant stenosis or dissection/occlusion. Soft tissue swelling. Visualized lung bradley unremarkable. IMPRESSION: Comminuted, impacted left humeral head/proximal shaft fracture. Inferior subluxation of the shoulder joint likely related to soft tissue swelling/small joint effusion. Electronically signed by Danilo Arias 03-28-2024 3:34 PM PG Care Time/CCT Total # of Minutes Spent Total Time Spent with Patient: Total time spent is greater than 50% in coordination of care (as documented) at patient's floor/unit and/or counseling patient: Coding [place] [address] SUB INP/OBS CARE 2/35MIN Patient Type Established History Expanded Problem Focused Exam Expanded Problem Focused Medical Decision Making Moderate Complexity Diagnoses Fracture of head of humerus S42.292A Encounter type: initial encounter Fracture type: closed Laterality: left (1) Fracture of head of humerus Encounter type: initial encounter Fracture type: closed Laterality: left Qualified Code(s): S42.292A - Other displaced fracture of upper end of left humerus, initial encounter for closed fracture
--- NOTE | 2024-03-29 13:56 | Pharmacy Report ---
Pharmacy Glycemic Short Note 2 - Date of Service March 29, 2024 - Glycemic Short BSG Results (Last 24 hours): 03/28/24 03/28/24 03/29/24 16:31 20:07 00:01 Glucose POC Glucose 179 H 221 H 238 H 03/29/24 03/29/24 03/29/24 03:53 07:48 07:53 Glucose 199 H POC Glucose 218 H 213 H 03/29/24 11:29 Glucose POC Glucose 276 H OUTPATIENT ANTIDIABETIC REGIMEN: * Per patient: * Metformin 1000 mg PO BIDM * Semaglutide 7 mg PO daily * Glimepiride 4 mg PO daily HbA1c: 11.8% (03/24/24) ASSESSMENT: 03/29/24: * Yolanda received 40 units of insulin yesterday (20 were bolus) * Fasting BSG this AM elevated, will increase basal this AM and allow for a 20% increase this evening if BSGs still elevated * Correction factor tightened due to BSGs persistently in the 200s, hesitant to adjust too much and cause hypoglycemia. Carbohydrate ratio tightened 2 days ago, consider tightening tomorrow if BSGs remain significantly elevated. * No glycemic stressors noted at this time. 03/26/24: * BSGs very labile yesterday, ranging 100-306 mg/dL * Received 34 units of insulin (15 units of basal and 19 units of prandial/correctional bolus) * Will still be conservative with insulin changes given prior documentation of hypoglycemia fearfulness * Overnight checks added per CDE recommendation 03/25/24: * LH is a 63 year old female admitted with left humerus fracture * History of T2DM, known to pharmacy glycemic service due to numerous consultations in the past * Patient was previously on insulin as an outpatient, but per patient this has now been discontinued * Patient prefers nonoperative management of fracture at this time- diet ordered PLAN FOR INPATIENT GLYCEMIC CONTROL: * Hold outpatient oral diabetes medications * Basal insulin * Lantus 15 units SC daily * Bolus insulin * NovoLog per scale ACHS or Q6hrs while NPO * Goal Range: Low 120 mg/dL - High 180 mg/dL * Correction Factor: 25 mg/dL/unit, 40 mg/dL/unit with overnight checks * Nutritional / Prandial insulin per carb ratio of 1 unit per 7 grams CHO consumed
[2024-03-29 17:59] LABS: Hematocrit (blood only) 28.4 % (37.0-47.0); Hemoglobin 9.1 g/dl (12.0-16.0)
[2024-03-29] MEDS: SUCRALFATE 1 GM/10 ML UDC PO SCH (20:20)
[2024-03-29] MEDS: PANTOprazole 40 MG TAB PO SCH (20:20)
[2024-03-30 07:52] LABS: Hematocrit (blood only) 27.1 % (37.0-47.0); Hemoglobin 8.9 g/dl (12.0-16.0); Mean Corpuscular Hemoglobin 28.1 pg (25.0-34.0); Mean Corpuscular Hgb Conc 32.8 g/dL (32.0-36.0); Mean Corpuscular Volume 85.5 fL (80.0-100.0); Mean Platelet Volume 9.7 fL (9.4-12.4); Platelet Count 387 K/uL (130-400); RDW Standard Deviation 39.6 fL (36.4-46.3); Red Blood Count 3.17 M/uL (4.20-5.40); White Blood Count 8.13 K/ul (4.8-10.8)
[2024-03-30 08:14] LABS: BUN Creatinine Ratio 18.8 (10-20); Calcium 8.4 mg/dl (8.6-10.3); Creatinine Clr Calc Pharmacy 64.5 ml/min; Magnesium 1.6 mg/dl (1.7-2.4); Potassium 4.5 mmol/L (3.5-5.1)
--- NOTE | 2024-03-30 13:05 | Orthopedic Progress Note ---
Date of Service March 30, 2024 Assessment & Plan (1) Fracture of head of humerus: Assessment: Fracture of the proximal humerus. Plan: Overall, she is doing well today with decently well pain control to the left shoulder. At this point in time, she wishes to proceed with surgical intervention to the left shoulder which includes a reverse total shoulder arthroplasty. Dr. Mulligan is willing to proceed with this on . She is willing to remain in the hospital until to receive this surgery if the medical team as okay with this. She does live alone so she may need to get a rehab after surgery. This should still be in the works to hopefully streamline this process after her surgical intervention on . She should be n.p.o. starting Friday night. Postsurgical expectation discussed today in great detail. I discussed the risk, benefits, alternatives to reverse total shoulder arthroplasty in great detail with ample bilateral patient ask any questions stating concerns. All question concerns were answered with patient satisfaction she wishes to proceed with the surgery. She should remain in the sling at this time. No weightbearing to the left upper extremity. continue current pain management regimen. Will continue to follow. Subjective . Patient is a 63-year-old female who has a proximal humerus fracture to the left shoulder. She originally was getting get this treated nonoperatively but has since decided to proceed with with wanting operative fixation to the left shoulder while she is inpatient. She notes that today she is doing quite well today with decent pain control. She notes that any sort of movement causes discomfort throughout the left arm. She is currently in her sling as directed. She has been up and out of bed without any significant issues. She denies any neck pain, distal extremity pain, numbness/ting, or paresthesias. She denies any other concerns today. Review of Systems All systems reviewed & are unremarkable except as noted in HPI & below. Physical Exam . GENERAL: AA&Ox3, NAD. Pleasant, affect is calm. Sitting upright in bed with simple sling donned to left shoulder/upper extremity; sling well-fitting. RESPIRATORY: Normal respiratory effort with no signs of distress. CHEST/AXILLA: Chest movement symmetrical. No deformities noted. CARDIOVASCULAR: No edema noted. SKIN: [place], warm and dry. MS/EXTREMITY: + wrist/digit AROM. Median/Ulnar/Radial nerve distributions intact to sensory/motor. Radial pulse intact, 2+. Patient holds her left shoulder in a protective, guarded manner. Results & Data Results & Data Laboratory Results . Diagnostic Findings . PG Care Time/CCT Total # of Minutes Spent Total Time Spent with Patient: Total time spent is greater than 50% in coordination of care (as documented) at patient's floor/unit and/or counseling patient: Coding Level of Care Code 08048 SUB INP/OBS CARE 2/35MIN Diagnoses Fracture of head of humerus S42.292A Encounter type: initial encounter Fracture type: closed Laterality: left (1) Fracture of head of humerus Encounter type: initial encounter Fracture type: closed Laterality: left Qualified Code(s): S42.292A - Other displaced fracture of upper end of left humerus, initial encounter for closed fracture
--- NOTE | 2024-03-30 19:22 | Hospitalist Progress Note ---
Date of Service March 30, 2024 Assessment & Plan (1) Left humeral fracture: Plan: Yolanda is a 63F with a PMHx of Diabetes, CAD status post stent placement, chronic hypomagnesemia, hypothyroidism who presents to the ER with shoulder pain and inability on ADLs. Patient was seen in the ER on 03/22 for mechanical fall resulting in a left proximal humerus fracture, was placed in a sling given p.o. oxycodone for home and instructed to have orthopedic follow-up. Patient did not go to any orthopedic follow-up appointment to presented to the ER for for ongoing discomfort not well controlled on oral medications and difficulty caring for herself (lives alone). No new trauma/injury since ER visit 03/22, no new numbness/tingling. #Left humerus fracture Xray on admission noted Acute fracture of the left humeral head and neck CT obtained given ongoing /worse pain on 03/28 and noted "Comminuted, impacted left humeral head/proximal shaft fracture. Inferior subluxation of the shoulder joint likely related to soft tissue swelling/small joint effusion" Ortho consulted Surgery anticipated for 04/01/24. Continue LUE sling in the meantime. No weightbearing to the left upper extremity Continue ice, elevation, sling Pain control being provided with Tylenol/Oxycodone, low dose morphine for breakthrough Moving her bowels, last BM 03/28 reported (not documented however) PT/OT consulted, anticipate rehab placement after surgery (2) Hyperglycemia due to type 2 diabetes mellitus: Plan: Elevated glucose 334 on admission A1c worse at 11.8 from prior 10.7 and on glimepiride, Januvia, metformin and PO semaglutide at baseline which have been held on admission. DM diet Glycemic consulted and BSGs acceptable for A1c 11.8 and DM educator consulted Likely would benefit from once daily insulin at ak/ref to endocrinology at ak (3) CAD (coronary artery disease): Plan: Status post stent placement and remains on ASA/Brilinta, Lipitor 80mg (4) Vitamin B12 deficiency: Plan: B12 checked w/ neuropathy/falls, on gabapentin 600mg BID at baseline--> B12 LOW 107. Has received IM x 3 inpatient, now transitioned to 1000mcg PO daily and should be continued at ak (5) Vitamin D deficiency: Plan: Vit D checked (to be on at baseline, not having) --> LOW 9.8, reports has NOT had this recently Started 125mcg PO -- encourage compliance in f/u, will need new rx at dc (6) Hypomagnesemia: Plan: Chronic lows, on mag oxide but also reported diarrhea, likely worsened mag loss Stopped mag oxide, placed on SLOW MAG BID and was low at 1.5 on 03/28 and increased PO to TID If remains low consider additional urine testing to see about mag wasting/consider ref to nephro outpt (7) Hypothyroidism: Plan: TSH upper limits of normal but in range and continues current home dosing (8) Iron deficiency: Plan: iron stores ok but ferritin low 39 and was given Venofer 200mg IV x 1 and started PO iron once daily. No bleeding reported (did order fecal occult prior but was not obtained but note could be falsely positive now that started on PO iron) Hgb remains low -- acute on chronic. Could be dilutional effect from IV fluids and iatrogenic from lab draws. Continue to montior Increased PPI to BID for GI proph on ASA/Brilinta at baseline Plan DVT proph: Lovenox SQ continued, PPI for GI proph Dispo: Surgery anticipated for 04/01/24 with ortho team. Likely will need rehab placement following surgery. Referrals to [facility] and [facility] in place Admission and Anticipated Discharge Date Admission Date: March 24, 2024 Supervising Physician Co-Signing Physician Notes Attending Attestation - Chart reviewed, care plan d/w MICKI Tran. I agree w/ the real components of her documentation. Appreciate ortho consult & recs. Planning surgery on L humerus fx this , 04/01. Demetrius Mancilla MD Subjective Patient seen and evaluated at bedside. She reports her pain is well-controlled at this time, but states pain radiates to her left shoulder with movement. She denies any numbness/tingling in her LUE. Discussed the plan for surgery with ortho on 04/01 with rehab placement after. No additional complaints or concerns at this time. Physical Exam Physical Exam: General: No acute distress, nondiaphoretic, well-developed, well-nourished. Skin: The skin was without rashes, erythema, edema, or bruising. Cardiac: Regular rate and rhythm without murmurs gallops or rubs. Pulm: Clear to auscultation bilaterally without wheezes, rales or rhonchi. No respiratory distress. 94% on room air. Abdominal: Soft, nontender, nondistended. Bowel sounds present. Neuro: A&O x3. No focal neurological deficits. MSK: LUE in sling. Tender to palpation of left shoulder with guarding. Wiggles left fingers without difficulty. Sensation intact to fingers. Radial pulse present. Cap refill <3 seconds. Results & Data Results & Data Vital Signs (Past 12 Hours) Vital Signs Temp Pulse Resp BP Pulse Ox O2 Del Method 03/30/24 14:40 98.1 F 78 18 110/61 94 Room Air 03/30/24 08:00 Room Air 03/30/24 07:55 97.9 F 79 18 134/71 97 Room Air Laboratory Results Reviewed CBC Reviewed BMP/mag PG Care Time/CCT Total # of Minutes Spent Total Time Spent with Patient: Total time spent is greater than 50% in coordination of care (as documented) at patient's floor/unit and/or counseling patient: Coding Level of Care Code 22882 SUB INP/OBS CARE 2/35MIN Diagnoses Left humeral fracture S42.302A Hyperglycemia due to type 2 diabetes mellitus E11.65; Z79.4 Diabetes mellitus buttermaker insulin use: with buttermaker use Coronary artery disease involving [place] coronary artery of [place] heart, unspecified whether angina present I25.10 Associated angina: unspecified whether angina present Coronary Disease-Associated Artery/Lesion type: [place] artery [place] vs. transplanted heart: [place] heart Vitamin B12 deficiency E53.8 Vitamin D deficiency E55.9 Hypomagnesemia E83.42 Hypothyroidism, unspecified type E03.9 Hypothyroidism type: unspecified Iron deficiency E61.1 (2) Hyperglycemia due to type 2 diabetes mellitus Diabetes mellitus fci insulin use: with buttermaker use Qualified Code(s): E11.65 - Type 2 diabetes mellitus with hyperglycemia; Z79.4 - buttermaker (current) use of insulin (3) CAD (coronary artery disease) Associated angina: unspecified whether angina present Coronary Disease- Associated Artery/Lesion type: [place] artery [place] vs. transplanted heart: [place] heart Qualified Code(s): I25.10 - Atherosclerotic heart disease of [place] coronary artery without angina pectoris (7) Hypothyroidism Hypothyroidism type: unspecified Qualified Code(s): E03.9 - Hypothyroidism, unspecified
[2024-03-31 08:12] LABS: Hemoglobin 8.9 g/dl (12.0-16.0); Mean Corpuscular Hemoglobin 28.5 pg (25.0-34.0); Mean Corpuscular Volume 86.5 fL (80.0-100.0); Mean Platelet Volume 9.5 fL (9.4-12.4); Platelet Count 430 K/uL (130-400); RDW Coefficient of Variation 13.4 % (11.5-14.5); RDW Standard Deviation 41.2 fL (36.4-46.3); Red Blood Count 3.12 M/uL (4.20-5.40); White Blood Count 7.38 K/ul (4.8-10.8)
[2024-03-31] MEDS: INSULIN ASPART PER UNIT CHARGE SC SCH ×2 (08:31→21:57)
[2024-03-31] MEDS: LANTUS PER UNIT CHARGE SQ ONE (08:32)
[2024-03-31 08:33] LABS: BUN Creatinine Ratio 20.4 (10-20); Calcium 8.3 mg/dl (8.6-10.3); Creatinine Clr Calc Pharmacy 58.9 ml/min; Magnesium 1.5 mg/dl (1.7-2.4)
--- NOTE | 2024-03-31 09:26 | Orthopedic Progress Note ---
Date of Service March 31, 2024 Assessment & Plan (1) Fracture of head of humerus: Assessment: Fracture of the proximal humerus. Plan: Overall, she is doing decently well today with okay pain control. She is currently n.p.o. for surgery this afternoon. She still wishes to proceed with surgery. Postoperative expectations were discussed in full. Will proceed later this afternoon with surgery. She verbalized understanding and agrees with this plan. Subjective .Yolanda was seen this morning resting comfortably with mild discomfort still to the left shoulder. She is currently n.p.o. awaiting surgery this afternoon. She has no questions or concerns today. She is anxiously awaiting for surgical intervention. She denies any other concerns today. Review of Systems All systems reviewed & are unremarkable except as noted in HPI & below. Physical Exam . . GENERAL: AA&Ox3, NAD. Pleasant, affect is calm. Sitting upright in bed with simple sling donned to left shoulder/upper extremity; sling well-fitting. RESPIRATORY: Normal respiratory effort with no signs of distress. CHEST/AXILLA: Chest movement symmetrical. No deformities noted. CARDIOVASCULAR: No edema noted. SKIN: [place], warm and dry. MS/EXTREMITY: + wrist/digit AROM. Median/Ulnar/Radial nerve distributions intact to sensory/motor. Radial pulse intact, 2+. Patient holds her left shoulder in a protective, guarded manner. Results & Data Results & Data Laboratory Results . Diagnostic Findings . PG Care Time/CCT Total # of Minutes Spent Total Time Spent with Patient: Total time spent is greater than 50% in coordination of care (as documented) at patient's floor/unit and/or counseling patient: Coding Level of Care Code 24122 SUB INP/OBS CARE 03/13MIN Diagnoses Fracture of head of humerus S42.292A Encounter type: initial encounter Fracture type: closed Laterality: left (1) Fracture of head of humerus Encounter type: initial encounter Fracture type: closed Laterality: left Qualified Code(s): S42.292A - Other displaced fracture of upper end of left humerus, initial encounter for closed fracture
--- NOTE | 2024-03-31 12:47 | History & Physical Bridge Note ---
Date of Service March 31, 2024 History & Physical Bridge Note I have examined the patient, reviewed the History & Physical and in the interval since the performance of the History & Physical I have noted the following changes of clinical significance: no changes noted
[2024-03-31] MEDS ORDERED: BUPIVACAINE 0.5 % 5 MG/1 ML PF 10ML VIAL ONE (13:04)
[2024-03-31] MEDS ORDERED: PROPOFOL IV EMULSION 10 MG/ML 20 ML VIAL IV ONE (14:16)
[2024-03-31] MEDS ORDERED: ROCURONIUM BROMIDE 10 MG/ML 5 ML VIAL IV ONE (14:17)
[2024-03-31] MEDS ORDERED: LIDOCAINE 2% 2 ML VIAL/AMP(20MG/ML) INFIL ONE (14:17)
[2024-03-31] MEDS ORDERED: MIDAZOLAM HCL 1 MG/ML 2ML VIAL ONE (14:19)
[2024-03-31] MEDS ORDERED: fentaNYL citrate PF 100 MCG/2 ML VIAL ONE (14:19)
--- NOTE | 2024-03-31 14:25 | Anesthesiology Consultation ---
Date of Service March 31, 2024 Assessment & Plan Chart Review Chart Review: Acceptable Risk for Surgery and Patient NOT seen in Pre Admission Testing Consults Requested none ASA ASA3 Proposed Anesthesia Anesthesia Type: General Regional Regional Laterality: Left Site: Interscalene Risk / Benefits Reviewed With: PT / POA / Parent / Guardian, Accepts Plan and Informed Consent Obtained Additional Notes Dr Mluligan aware of dual antiplatelet therapy and OK to proceed. Will check type and sreen prior to surgery. History Surgery Operation Date: 03/31/24 13:10 Proposed Procedures p Fracture Reverse Left Shoulder Replacement - Declan Mulligan, DO Height/Weight Height: 5 ft 1 in Weight: 81.057 kg Allergies Allergy/AdvReac Type Severity Reaction Status Date / Time dulaglutide [From Trulicity] AdvReac Intermediate stomach Verified 01/08/24 13:57 pain albiglutide [From Tanzeum] AdvReac Unknown CAN'T Verified 01/08/24 13:57 REMEMBER Medications Home Medications Medication Instructions Recorded Confirmed Last Taken blood-glucose meter (Prodigy 10/15/21 03/24/24 Unknown Autocode Meter kit) aspirin 81 mg tablet,delayed 81 mg PO QAM #30 tabs 10/29/22 03/24/24 09/06/23 release diclofenac sodium 1 % topical gel 2 g EXT QID PRN Pain 02/28/23 03/24/24 03/23/24 (Voltaren Arthritis Pain) levothyroxine 88 mcg tablet 88 mcg PO DAILYBB 02/28/23 03/24/24 03/24/24 folic acid 1 mg tablet 1 mg PO QAM #90 tabs 04/07/23 03/24/24 03/24/24 bupropion HCl 150 mg 24 hr tablet, 150 mg PO QAM 90 days #90 tabs 05/05/23 03/24/24 03/24/24 extended release pen needle, diabetic 32 gauge x #200 ea 08/22/23 03/24/24 Unknown " (BD Ultra-Fine [place] Pen Needle) famotidine 20 mg tablet 20 mg PO DAILY PRN Acid Reflux 10/04/23 03/24/24 Unknown tramadol 50 mg tablet 50 mg PO Q6H PRN Pain 10/04/23 03/24/24 Unknown cholecalciferol (vitamin D3) 25 25 mcg PO QAM #0 caps 10/07/23 03/24/24 Unknown mcg (1,000 unit) capsule metformin 500 mg tablet,extended 1,000 mg (2 x 500 mg) PO BID #360 10/23/23 03/24/24 03/24/24 release 24 hr tabs am dose escitalopram oxalate 20 mg tablet 20 mg PO QAM #30 tabs 01/05/24 03/24/24 03/24/24 atorvastatin 80 mg tablet 80 mg PO HS #90 tabs 02/13/24 03/24/24 03/23/24 gabapentin 300 mg capsule 600 mg (2 x 300 mg) PO BID #60 caps 02/13/24 03/24/24 03/23/24 ticagrelor 90 mg tablet (Brilinta) 90 mg PO BID #60 tabs 02/13/24 03/24/24 03/24/24 oxycodone 5 mg tablet 5 mg PO Q6H PRN pain #10 tabs 03/22/24 03/24/24 03/23/24 glimepiride 2 mg tablet 4 mg PO QAM 03/24/24 03/24/24 03/24/24 magnesium oxide 400 mg (241.3 mg 1,200 mg PO QAM 03/24/24 03/24/24 03/24/24 magnesium) tablet meclizine 12.5 mg tablet 12.5 mg PO TID PRN Dizziness 03/24/24 03/24/24 Unknown polyethylene glycol 3350 17 gram 17 g PO DAILY PRN Constipation 03/24/24 03/24/24 Unknown oral powder packet (Miralax) semaglutide 7 mg tablet 7 mg PO QAM 03/24/24 03/24/24 03/24/24 sitagliptin phosphate 100 mg 100 mg PO QAM 03/24/24 03/24/24 Unknown tablet (Januvia) Active Medications Generic Name Dose Route Start Last Admin Trade Name Freq PRN Reason Stop Dose Admin Acetaminophen 1,000 mg 03/27/24 08:17 03/29/24 09:49 Acetaminophen 500 Mg Tab PO 04/24/24 01:59 1,000 mg Q8H PRN Administration pain or fever Aspirin 81 mg 03/25/24 09:00 03/31/24 09:40 Aspirin 81 Mg Ectab PO 04/24/24 08:59 Not Given QAM TONI Atorvastatin Calcium 80 mg 03/24/24 21:00 03/30/24 21:39 Atorvastatin 40 Mg Tab PO 04/23/24 20:59 80 mg HS TONI Administration Bupropion HCl 150 mg 03/25/24 09:00 03/31/24 08:34 Bupropion Xl 150 Mg Tabcr PO 04/24/24 08:59 150 mg QAM TONI Administration Cyanocobalamin 1,000 mcg 03/28/24 09:00 03/31/24 08:33 Cyanocobalamin (B-12) 500 Mcg Tablet PO 04/27/24 08:59 Not Given QAM TONI Diclofenac Sodium 2 gm 03/26/24 14:00 03/31/24 09:41 Diclofenac Sod 1% Gel 100 Gm Tube EXT 04/25/24 13:59 Not Given TID [facility] Protocol Docusate Sodium 100 mg 03/29/24 10:45 03/31/24 08:34 Docusate Sodium 100 Mg Cap PO 04/28/24 10:44 100 mg BID TONI Administration Enoxaparin Sodium 40 mg 03/25/24 09:00 03/31/24 09:41 Enoxaparin Inj 40 Mg/0.4 Ml Syr SQ 04/24/24 08:59 Not Given QAM [facility] Escitalopram Oxalate 20 mg 03/25/24 09:00 03/31/24 08:38 Escitalopram Oxalate 20 Mg Tab PO 04/24/24 08:59 20 mg QAM [facility] Administration Famotidine 20 mg 03/26/24 09:00 03/31/24 08:34 Famotidine 20 Mg Tab PO 04/25/24 08:59 20 mg DAILY TONI Administration Ferrous Sulfate 325 mg 03/27/24 12:00 03/31/24 08:38 Ferrous Sulfate 325 Mg Tab PO 04/26/24 11:59 Not Given QAM TONI Folic Acid 1 mg 03/25/24 09:00 03/31/24 08:38 Folic Acid 1 Mg Tab PO 04/24/24 08:59 1 mg QAM [facility] Administration Gabapentin 600 mg 03/24/24 21:00 03/31/24 08:36 Gabapentin 300 Mg Cap PO 04/23/24 20:59 600 mg BID TONI Administration Insulin Aspart 0 units 03/31/24 08:00 03/31/24 12:41 Insulin Aspart Per Unit Charge SC 04/30/24 07:59 2 units Q6 TONI Administration Insulin Glargine 0 units 03/29/24 21:00 03/30/24 21:42 Lantus Per Unit Charge SQ 04/28/24 20:59 5 units HS TONI Administration Protocol Levothyroxine Sodium 88 mcg 03/25/24 06:30 03/31/24 05:54 Levothyroxine Sodium 88 Mcg Tablet PO 04/24/24 06:29 88 mcg DAILYBB TONI Administration Magnesium Chloride 64 mg 03/28/24 09:00 03/31/24 08:34 Magnesium Chloride W/Calcium 64mg Delayed Rel Tab PO 04/27/24 08:59 64 mg TID TONI Administration Morphine Sulfate 0.5 mg 03/27/24 11:56 03/31/24 08:31 Morphine Sulfate 2 Mg/Ml Carp IV 04/08/24 17:40 0.5 mg Q6H PRN Administration Severe Pain (Scale 7, 8, 9,10) Oxycodone HCl 5 - 10 mg 03/25/24 17:41 03/30/24 22:28 Oxycodone Hcl Ir 5 Mg Tab (Immediate Release) PO 04/08/24 17:40 10 mg Q4H PRN Administration Pain Pantoprazole Sodium 40 mg 03/29/24 21:00 03/31/24 08:36 Pantoprazole 40 Mg Tab PO 04/28/24 20:59 40 mg BID TONI Administration Sucralfate 1 gm 03/29/24 21:00 03/31/24 12:41 Sucralfate 1 Gm/10 Ml Udc PO 04/28/24 20:59 1 gm QID TONI Administration Ticagrelor 90 mg 03/24/24 21:00 03/31/24 09:41 Ticagrelor 90 Mg Tab PO 04/23/24 20:59 Not Given BID TONI Vitamin D 125 mcg 03/25/24 11:30 03/31/24 08:33 Cholecalciferol 125 Mcg (5,000 Units) Tab PO 04/24/24 11:29 Not Given QAM TONI NPO Date Last Intake of Fluids: 03/30/24 Time Last Intake of Fluids: 21:00 Date Last Intake of Solids: 03/30/24 Time Last Intake of Solids: 17:00 Past Medical History Medical History Ventricular tachycardia Weakness Fall Cigarette smoker CAD (coronary artery disease) No remaining occlusive disease after 2 LAD drug eluting stents 10/22/20. Follows with Dr. Harris Hypothyroidism Diabetes mellitus GERD (gastroesophageal reflux disease) Acute on chronic combined systolic and diastolic CHF (congestive heart failure) Bradycardia with 41-50 beats per minute Accelerated hypertension Depression Osteoarthritis Chronic headaches NSTEMI (non-ST elevated myocardial infarction) 10/22/2020 s/p 2 CHANTAL Vulvitis Dyslipidemia Exercise / Class Metabolic Activity II 4-5 Yardwork/Stairs/Walk up hill Past Family History Family History Unknown Diabetes Thyroid disorder Father Diabetes Other No family history of adverse response to anesthesia Denies family history of Ovarian cancer Prostate cancer Breast cancer Colorectal cancer Uterine cancer Past Surgical History Surgical History History of cardiac catheterization 10/22/2020 Dominant: Right Left Main (% Stenosis): Normal LAD (% Stenosis): Proximal (99) and Mid (75) Circumflex (% Stenosis): Normal (luminal irregularities) RCA (% Stenosis): Normal (Luminal irregularities) 2 CHANTAL to LAD History of cholecystectomy History of dental surgery History of tonsillectomy Past Anesthesia History No Hx of Anesthesia Complications and No Family Hx of Anesthesia Complications History of PONV No Hx of PONV and No Hx of Motion Sickness Social History Smoking Status: Former smoker tobacco type: cigarettes Smoking cigarettes per day: 5 Do You Dip or Chew Tobacco: No Smoking End Date: 2 months ago Hx Alcohol Use: No Hx Substance Use: No substance use type: does not use Physical Exam Vital Signs Last Vital Signs Temp 37 C 03/31/24 13:35 Pulse 73 03/31/24 13:35 Resp 20 03/31/24 13:35 BP 142/78 H 03/31/24 13:35 Pulse Ox 94 03/31/24 13:35 O2 Del Method Room Air 03/31/24 13:35 ENMT Mouth: + poor dentition Thyromental Distance: > or= 3.5 Finger Breadths Mallampati Class: II Neck normal visual inspection Respiratory normal respiratory effort Auscultation: lungs clear to auscultation bilaterally Cardiovascular Rate/Rhythm: regular rate and regular rhythm Psychiatric Orientation: alert Testing Laboratory Results 03/31/24 07:27 03/31/24 07:27 Hemoglobin A1c 11.8 % (4.5-5.6) H 03/24/24 18:22 Urine Color Yellow 03/28/24 14:30 Urine Appearance Clear (Clear) 03/28/24 14:30 Urine pH 5.5 (4.5-7.5) 03/28/24 14:30 Ur Specific [place] 1.016 (1.000-1.030) 03/28/24 14:30 Urine Protein Negative (Negative) 03/28/24 14:30 Urine Glucose (UA) 3+ (Negative) H 03/28/24 14:30 Urine Ketones Negative (Negative) 03/28/24 14:30 Urine Nitrite Negative (Negative) 03/28/24 14:30 Ur Leukocyte Esterase 1+ (Negative) H 03/28/24 14:30 Urine WBC (Auto) 11-20 /hpf (0-5) H 03/28/24 14:30 Urine RBC (Auto) 0-2 /hpf (0-2) 03/28/24 14:30 U Hyaline Cast (Auto) 0-2 /lpf (0-2) 03/28/24 14:30 U Epithel Cells (Auto) 11-20 /hpf (0-2) H 03/28/24 14:30 Urine Bacteria (Auto) None Seen (None Seen) 03/28/24 14:30 03/28/24 14:30 Urine Culture - Final Urine,Clean Catch More than three types of organisms present, all high counts mixed probable skin talon - No further identifications or sensitivities to follow. 03/31/24 03/31/24 03/31/24 11:46 07:48 03:58 POC Glucose 222 H 195 H 214 H
[2024-03-31] MEDS ORDERED: ONDANSETRON INJ 2 MG/ML 2 ML VIAL IV PRN (14:26)
[2024-03-31] MEDS ORDERED: ATROPINE SULFATE 0.1 MG/ML 10ML SYR IV PRN (14:26)
[2024-03-31] MEDS ORDERED: ePHEDrine sulfate 50 MG/ML AMP IV PRN (14:26)
[2024-03-31] MEDS ORDERED: fentaNYL citrate PF 100 MCG/2 ML VIAL IV PRN (14:26)
[2024-03-31] MEDS ORDERED: PROMETHAZINE HCL 6.25 MG in SODIUM CHLORIDE 0.9% 50 ML IV PRN (14:26)
[2024-03-31] MEDS: TRANEXAMIC ACID / 0.7% NACL 1,000 MG/100 ML BAG IV SCH ×2 (14:48→16:13)
[2024-03-31] MEDS: ceFAZolin 2000MG 2,000 MG/15 ML SYR IV SCH ×2 (15:05→23:36)
[2024-03-31] MEDS ORDERED: ePHEDrine sulfate 50 MG/5 ML SYR ONE (15:24)
[2024-03-31] MEDS ORDERED: ONDANSETRON INJ 2 MG/ML 2 ML VIAL ONE ×2 (15:41)
[2024-03-31] MEDS ORDERED: DEXAMETHASONE SOD INJ 4 MG/ML VIAL ONE (15:41)
[2024-03-31] MEDS ORDERED: PHENYLEPHRINE HCL 10 MG/ML VIAL ONE (15:50)
[2024-03-31] MEDS: ORTHO JOINT ANESTHETIC ONE (16:07)
[2024-03-31] MEDS: ROPIVACAINE 0.5% HCL/PF 246 MG, Ketorolac (*for OR use only*) 30 MG, EPINEPHrine 30MG/3... INFIL SCH (16:24)
[2024-03-31] MEDS ORDERED: GLYCOPYRROLATE 0.2 MG/ML VIAL ONE ×2 (16:27)
[2024-03-31] MEDS ORDERED: NEOSTIGMINE METHYLSULFATE 1 MG/ML 10ML VIAL ONE (16:27)
--- NOTE | 2024-03-31 16:47 | Operative Report ---
PG Post Operative Report Pre & Post Diagnosis Operation Date: 03/31/24 13:10 Pre-Op Diagnosis: Four-part left proximal humerus fracture with tendinopathy long head of the biceps tendon Post-Op Diagnosis: Four-part left proximal humerus fracture with tendinopathy long head of the biceps tendon I identified the patient and participated in the time-out.: Yes Procedure Operation Date: 03/31/24 13:10 Actual Procedures p Fracture Reverse Left Shoulder Replacement(Left) with open biceps tenodesis as a distinct and separate procedure (modifier 59)- Declan Mulligan DO Surgeon Declan Mulligan DO Stripping Cutter And Winder None Estimated Blood Loss 150 Findings Consistent with Post-Op Diagnosis Specimens Left humeral head Description of Procedure A CPT code modifier 59: The long head of the biceps tendon was frayed and damaged secondary to the fracture. A tenodesis was opted. This was a separate and distinct portion of the procedure. For these reasons, a CPT code modifier 59 will be added to this case. Implants used: I used a Biomet Comprehensive fracture reverse total shoulder arthroplasty s ystem with a size 8 press fit standard fracture humeral stem, a +6 offset humeral tray and a standard humeral bearing, a 25 mm baseplate with a 6.5 mm central screw and superior and inferior locking screws, and a size 36 mm eccentric glenosphere. Yolanda arrived at [facility] for the above procedure. She was seen in the preoperative holding area and the operative extremity was identified and signed. She was given a preoperative antibiotic, TXA, and an interscalene nerve block. She was taken back to the operating room, laid on table in supine position, and put under general anesthesia. She was then put into the beachchair position. The shoulder was then prepped and draped in sterile fashion. A timeout was done and the patient and the operative extremity was properly identified. A deltopectoral approach was used. Dissection was taken down through the fascia and the deltoid was retracted laterally and the conjoined tendon was retracted medially. The fracture was easily exposed. The biceps groove was opened up and the biceps tendon was examined extensively. The biceps tendon demonstrated fraying and damage secondary to the trauma and fracture. The long head of the biceps tendon was then tenodesed to the upper border of the pectoralis major. This was a separate and distinct portion of the procedure. An oscillating saw and osteotome were then used to separate the lesser tuberosity fragment and the greater tuberosity fragment from the humeral head. The humeral head was then removed. Time was then spent shaping the greater and lesser tuberosities. Four #5 FiberWire sutures were passed through the infraspinatus at its articular junction. These would later be used for a repair of the rotator cuff around the prosthesis. The glenoid was then easily exposed. Time was spent doing a complete circumferential capsular release. The glenoid guide was then placed in the inferior aspect of the glenoid. A 3.2 mm Steinmann pin was then placed into the glenoid vault at 10 of inclination. The glenoid baseplate was then reamed. The final size 25 mm baseplate was then impacted in the place. A 6.5 mm central screw was then placed followed by superior and inferior locking screws. A 36 mm eccentric glenosphere was then impacted into place. Surrounding soft tissues were then injected with 100 cc an orthopedic pain control cocktail. The proximal humerus was then exposed. A canal finding reamer was sent down the center of the humeral canal. Sequential reaming up to a size 8 reamer was done. A 8 trial humeral stem was then impacted into place at 25 degrees of retroversion. A +6 offset humeral tray was then placed on the humeral trial stem and the shoulder was reduced. The shoulder was brought through a full range of motion and felt to be stable. Two #5 FiberWire sutures were passed through the humeral shaft for later rotator cuff and tuberosity fixation. The final size 8 standard fracture humeral stem was then impacted into place. A standard humeral bearing was snapped onto a +6 offset humeral tray. The humeral tray was then impacted on the humeral stem. The shoulder was then reduced. The shoulder was brought through a full range of motion and felt to be stable. 2 of the FiberWire sutures were passed through the holes of the fracture stem and passed around the stem to reduce the greater tuberosity. 2 additional sutures were passed through holes of the fracture stem and passed around the stem to reduce the lesser tuberosity. The 2 humeral shaft sutures were used to pull down the lesser tuberosity and the greater tuberosity to keep them from migrating medially. The shoulder was brought through a full range of motion. I was happy with the overall reduction of the tuberosities and the motion of the shoulder. A dilute betadyne lavage was then done for 3 minutes. The joint was then irrigated with normal saline solution. Hemostasis was obtained. The interval was closed with 2-0 Vicryl suture. The skin was then closed with 2-0 Vicryl and rere. A Silverlon dressing was placed and the arm was rested in a regular arm sling. She was then extubated and transferred to a hospital bed. She taken to the postanesthesia care unit in stable condition. She tolerated the procedure well. I attest to the content of the Intraoperative Record and any orders documented therein. Any exceptions are noted below.
--- NOTE | 2024-03-31 16:52 | Hospitalist Progress Note ---
Date of Service March 31, 2024 Assessment & Plan (1) Left humeral fracture: Plan: Yolanda is a 63F with a PMHx of Diabetes, CAD status post stent placement, chronic hypomagnesemia, hypothyroidism who presents to the ER with shoulder pain and inability on ADLs. Patient was seen in the ER on 03/22 for mechanical fall resulting in a left proximal humerus fracture, was placed in a sling given p.o. oxycodone for home and instructed to have orthopedic follow-up. Patient did not go to any orthopedic follow-up appointment to presented to the ER for for ongoing discomfort not well controlled on oral medications and difficulty caring for herself (lives alone). No new trauma/injury since ER visit 03/22, no new numbness/tingling. #Left humerus fracture Xray on admission noted Acute fracture of the left humeral head and neck CT obtained given ongoing /worse pain on 03/28 and noted "Comminuted, impacted left humeral head/proximal shaft fracture. Inferior subluxation of the shoulder joint likely related to soft tissue swelling/small joint effusion" Ortho consulted Reverse left shoulder replacement on 03/31/[address] Mulligan. Defer to Ortho for activity level/restrictions postop Pain control being provided with Tylenol/Oxycodone, low dose morphine for breakthrough Moving her bowels, last BM 03/31 PT/OT consulted, anticipate rehab placement after surgery (2) Hyperglycemia due to type 2 diabetes mellitus: Plan: Elevated glucose 334 on admission A1c worse at 11.8 from prior 10.7 and on glimepiride, Januvia, metformin and PO semaglutide at baseline, held on admission Glycemic consulted and BSGs acceptable for A1c 11.8 and DM educator consulted Likely would benefit from once daily insulin at al/ref to endocrinology at al (3) CAD (coronary artery disease): Plan: Status post stent placement and remains on ASA/Brilinta, Lipitor 80mg (4) Vitamin B12 deficiency: Plan: B12 checked w/ neuropathy/falls, on gabapentin 600mg BID at baseline--> B12 LOW 107. Has received IM x 3 inpatient, now transitioned to 1000mcg PO daily and should be continued at al (5) Vitamin D deficiency: Plan: Vit D checked (to be on at baseline, not having) --> LOW 9.8, reports has NOT had this recently Started 125mcg PO -- encourage compliance in f/u, will need new rx at dc (6) Hypomagnesemia: Plan: Chronic lows, on mag oxide but also reported diarrhea, likely worsened mag loss Stopped mag oxide, placed on SLOW MAG BID and was low at 1.5 on 03/28 and increased PO to TID Refractory hypomagnesemia persist despite repletion. Ordered 24-hour urine magnesium, send out lab If renal wasting, recommend amiloride. Consider referral to nephrology outpatient (7) Hypothyroidism: Plan: TSH upper limits of normal but in range and continues current home dosing (8) Iron deficiency: Plan: iron stores ok but ferritin low 39 and was given Venofer 200mg IV x 1 and started PO iron once daily. No bleeding reported (did order fecal occult prior but was not obtained but note could be falsely positive now that started on PO iron) Hgb remains low -- acute on chronic. Could be dilutional effect from IV fluids and iatrogenic from lab draws. Continue to montior Increased PPI to BID for GI proph on ASA/Brilinta at baseline Plan DVT proph: Lovenox SQ continued, PPI for GI proph Dispo: Surgery today, 03/31, with Dr. Mulligan. Likely will need rehab placement following surgery. Referrals to [facility] and [facility] in place Ordered 24-hour urine magnesium Admission and Anticipated Discharge Date Admission Date: March 24, 2024 Supervising Physician Co-Signing Physician Notes Attending Attestation - Chart reviewed, care plan d/w MICKI Tran. I agree w/ the real components of her documentation. To OR today for L humerus fx repair with Dr Mulligan; appreciate his assistance. Low mag - agree with work-up as noted. Demetrius Mancilla MD Subjective Patient seen and evaluated at bedside. She reports left shoulder pain. She notes she is anxious regarding her surgery - reassurance provided. She also reports she had a bowel movement this morning. No additional complaints or concerns at this time. Physical Exam Physical Exam: General: No acute distress, nondiaphoretic, well-developed, well-nourished. Cardiac: Regular rate and rhythm without murmurs gallops or rubs. Pulm: Clear to auscultation bilaterally without wheezes, rales or rhonchi. No respiratory distress. 94% on room air. Abdominal: Soft, nontender, nondistended. Bowel sounds present. Neuro: A&O x3. No focal neurological deficits. MSK: LUE in sling. Tender to palpation of left shoulder with guarding. Wiggles left fingers without difficulty. Sensation intact to fingers. Radial pulse present. Cap refill <3 seconds. Results & Data Results & Data Vital Signs (Past 12 Hours) Vital Signs Temp Pulse Pulse Resp BP Pulse Ox O2 Del Method 03/31/24 13:35 98.6 F 73 20 142/78 H 94 Room Air 03/31/24 07:30 98.2 F 66 18 107/65 96 Room Air Laboratory Results Reviewed CBC Reviewed BMP/mag PG Care Time/CCT Total # of Minutes Spent Total Time Spent with Patient: Total time spent is greater than 50% in coordination of care (as documented) at patient's floor/unit and/or counseling patient: Coding Level of Care Code 60142 SUB INP/OBS CARE 235MIN Diagnoses Left humeral fracture S42.302A Hyperglycemia due to type 2 diabetes mellitus E11.65; Z79.4 Diabetes mellitus skilled nursing insulin use: with skilled nursing use Coronary artery disease involving [place] coronary artery of [place] heart, unspecified whether angina present I25.10 Associated angina: unspecified whether angina present Coronary Disease-Associated Artery/Lesion type: [place] artery [place] vs. transplanted heart: [place] heart Vitamin B12 deficiency E53.8 Vitamin D deficiency E55.9 Hypomagnesemia E83.42 Hypothyroidism, unspecified type E03.9 Hypothyroidism type: unspecified Iron deficiency E61.1 (2) Hyperglycemia due to type 2 diabetes mellitus Diabetes mellitus skilled nursing insulin use: with skilled nursing use Qualified Code(s): E11.65 - Type 2 diabetes mellitus with hyperglycemia; Z79.4 - child care sitter (current) use of insulin (3) CAD (coronary artery disease) Associated angina: unspecified whether angina present Coronary Disease- Associated Artery/Lesion type: [place] artery [place] vs. transplanted heart: [place] heart Qualified Code(s): I25.10 - Atherosclerotic heart disease of [place] coronary artery without angina pectoris (7) Hypothyroidism Hypothyroidism type: unspecified Qualified Code(s): E03.9 - Hypothyroidism, unspecified
--- NOTE | 2024-03-31 17:26 | XRay Report ---
EXAM: Radiographs of the Left Shoulder Complete 2 Views INDICATION: Postop check. TECHNIQUE: 2 views of the left shoulder. COMPARISON: No relevant prior studies available. FINDINGS: Bones/joints: Shoulder arthroplasty component well-seated and intact. No dislocation or fracture. Soft tissues: Expected postoperative gas and swelling in the operative bed noted. Lungs and pleural spaces: There is atelectasis in both lung bases. IMPRESSION: 1. Satisfactory appearance of left shoulder arthroplasty. No acute abnormality. 2. Bilateral basilar atelectasis. ACT 112: Negative or not required by law. Electronically signed by Dorothea Johns 03-31-2024 5:25 PM
[2024-03-31] MEDS: BUPIVACAINE LIPOSOME 1.3% 133 MG/10 ML VIAL ONE (17:33)
[2024-03-31] MEDS: ceFAZolin 2,000 MG/15 ML IV PUSH IV ONE (17:34)
[2024-03-31] MEDS: TRANEXAMIC ACID / 0.7% NACL 1000MG/100ML BAG IV ONE (17:34)
--- NOTE | 2024-03-31 17:34 | Anesthesiology Progress Note ---
Date of Service March 31, 2024 Anesthesia Post Procedure Vital Signs Vital Signs: Temp Pulse Pulse Pulse Resp BP Pulse Ox 03/31/24 17:20 93 H 20 151/89 H 98 03/31/24 17:10 94 H 22 147/85 H 100 03/31/24 17:00 90 20 138/81 97 03/31/24 16:51 36.0 C L 89 18 138/72 97 03/31/24 13:35 37 C 73 20 142/78 H 94 03/31/24 07:30 36.8 C 66 18 107/65 96 03/30/24 20:00 36.6 C 83 16 138/82 95 O2 Del Method O2 Flow Rate 03/31/24 17:20 Nasal Cannula 2 03/31/24 17:10 Oxymask 4 03/31/24 17:00 Oxymask 8 03/31/24 16:51 Oxymask 8 03/31/24 13:35 Room Air 03/31/24 07:30 Room Air 03/30/24 20:00 Room Air Pain Intensity Left Shoulder: Pain Intensity: 8 Left Arm: Pain Intensity: 8 Transfer of Care Handoff Completed per policy Notes Mental Status: alert / awake / arousable and participated in evaluation Patient Amnestic to Procedure: Yes Nausea / Vomiting: adequately controlled Pain: adequately controlled Airway Patency, RR, SpO2: stable & adequate BP & HR: stable & adequate Hydration State: stable & adequate Anesthetic Complications: no major complications apparent and Pt Satisfied with anesthetic care
[2024-03-31] MEDS ORDERED: NALOXONE HCL 0.4 MG/1 ML VIAL/CARP IV PRN (17:50)
[2024-03-31] MEDS ORDERED: ceFAZolin 1000MG 1,000 MG/7.5 ML SYR IV SCH (23:00)
[2024-04-01] MEDS: INSULIN ASPART PER UNIT CHARGE SC SCH (02:07)
[2024-04-01 07:20] LABS: Basophils # (auto) 0.02 K/uL (0.00-0.20); Basophils % (auto) 0.2 %; Eosinophils # (auto) 0.01 K/uL (0.00-0.50); Eosinophils % (auto) 0.1 %; Hematocrit (blood only) 24.1 % (37.0-47.0); Hemoglobin 7.8 g/dl (12.0-16.0); Immature Granulocytes # (auto) 0.09 K/uL (0.01-0.20); Immature Granulocytes % (auto) 0.9 %; Lymphocytes # (auto) 1.44 K/uL (1.20-3.40); Lymphocytes % (auto) 15.1 %; Mean Corpuscular Hgb Conc 32.4 g/dL (32.0-36.0); Mean Corpuscular Volume 86.4 fL (80.0-100.0); Mean Platelet Volume 9.4 fL (9.4-12.4); Monocytes # (auto) 0.77 K/uL (0.11-0.59); Monocytes % (auto) 8.1 %; Neutrophils # (auto) 7.19 K/uL (1.40-6.50); Neutrophils % (auto) 75.6 %; Platelet Count 403 K/uL (130-400); RDW Coefficient of Variation 13.5 % (11.5-14.5); RDW Standard Deviation 41.1 fL (36.4-46.3); Red Blood Count 2.79 M/uL (4.20-5.40); White Blood Count 9.52 K/ul (4.8-10.8)
[2024-04-01 07:48] LABS: BUN Creatinine Ratio 21.6 (10-20); Calcium 8.3 mg/dl (8.6-10.3); Creatinine Clr Calc Pharmacy 53.7 ml/min; Magnesium 1.6 mg/dl (1.7-2.4); Potassium 4.3 mmol/L (3.5-5.1)
[2024-04-01 07:55] LABS: RBC Morphology Unremarkable
--- NOTE | 2024-04-01 08:13 | Orthopedic Progress Note ---
Date of Service April 01, 2024 Assessment & Plan (1) Left humeral fracture: POD 1 from left fracture reverse total shoulder replacement. Having some pain but reasonably controlled. I reassured her of the numbness and that this is likely related to the nerve block. Continue sling LUE PT/OT d/c planning: likely will need rehab/[facility]. Dressing can stay in place 7 [address] will discuss with Dr Isaak Bruno . 63 year old patient POD 1 from left fracture reverse shoulder replacement. Complains of pain but said it is improved from her preop level. Still some numbness in hand. Review of Systems All systems reviewed & are unremarkable except as noted in HPI & below. Physical Exam .alert and oriented. NAD. VSS. Hgb 7.8 today Left arm: sling in place. Dressing clean, dry, intact. Able to flex and extend her wrist and fingers. Reports some diminished sensation in fingers. Brisk refill. Results & Data Results & Data Laboratory Results . Diagnostic Findings . PG Care Time/CCT Total # of Minutes Spent Total Time Spent with Patient: Total time spent is greater than 50% in coordination of care (as documented) at patient's floor/unit and/or counseling patient: Coding Level of Care Code 69832 Post Operative Follow-Up Diagnoses Left humeral fracture S42.302A
[2024-04-01] MEDS: LANTUS PER UNIT CHARGE SQ SCH (08:29)
--- NOTE | 2024-04-01 17:53 | Hospitalist Progress Note ---
Date of Service April 01, 2024 Assessment & Plan (1) Left humeral fracture: Plan: Yolanda is a 63F with a PMHx of Diabetes, CAD status post stent placement, chronic hypomagnesemia, hypothyroidism who presents to the ER with shoulder pain and inability on ADLs. Patient was seen in the ER on 03/22 for mechanical fall resulting in a left proximal humerus fracture, was placed in a sling given p.o. oxycodone for home and instructed to have orthopedic follow-up. Patient did not go to any orthopedic follow-up appointment to presented to the ER for for ongoing discomfort not well controlled on oral medications and difficulty caring for herself (lives alone). No new trauma/injury since ER visit 03/22, no new numbness/tingling. #Left humerus fracture Xray on admission noted Acute fracture of the left humeral head and neck CT obtained given ongoing /worse pain on 03/28 and noted "Comminuted, impacted left humeral head/proximal shaft fracture. Inferior subluxation of the shoulder joint likely related to soft tissue swelling/small joint effusion" Ortho consulted Reverse left shoulder replacement on 03/31/[address] Mulligan. Defer to Ortho for activity level/restrictions postop Lightheadedness/hypotension postop, suspect secondary to acute blood loss anemia, pain meds Pain control being provided with Tylenol/Oxycodone, low dose morphine for breakthrough Last BM 03/31, hypoactive bowel sounds postop without passing flatus or BM - monitor PT/OT consulted, anticipate rehab placement after surgery (2) Hyperglycemia due to type 2 diabetes mellitus: Plan: Elevated glucose 334 on admission A1c worse at 11.8 from prior 10.7 and on glimepiride, Januvia, metformin and PO semaglutide at baseline, held on admission Glycemic consulted and BSGs acceptable for A1c 11.8 and DM educator consulted Likely would benefit from once daily insulin at az/ref to endocrinology at az (3) CAD (coronary artery disease): Plan: Status post stent placement and remains on ASA/Brilinta, Lipitor 80mg (4) Vitamin B12 deficiency: Plan: B12 checked w/ neuropathy/falls, on gabapentin 600mg BID at baseline--> B12 LOW 107. Has received IM x 3 inpatient, now transitioned to 1000mcg PO daily and should be continued at az (5) Vitamin D deficiency: Plan: Vit D checked (to be on at baseline, not having) --> LOW 9.8, reports has NOT had this recently Started 125mcg PO -- encourage compliance in f/u, will need new rx at dc (6) Hypomagnesemia: Plan: Chronic lows, on mag oxide but also reported diarrhea, likely worsened mag loss Stopped mag oxide, placed on SLOW MAG BID and was low at 1.5 on 03/28 and increased PO to TID Refractory hypomagnesemia persist despite repletion. Ordered 24-hour urine magnesium, send out lab If renal wasting, recommend amiloride. Consider referral to nephrology outpatient (7) Hypothyroidism: Plan: TSH upper limits of normal but in range and continues current home dosing (8) Iron deficiency: Plan: iron stores ok but ferritin low 39 and was given Venofer 200mg IV x 1 and started PO iron once daily. No bleeding reported (did order fecal occult prior but was not obtained but note could be falsely positive now that started on PO iron) Hgb remains low -- acute on chronic. Could be dilutional effect from IV fluids and iatrogenic from lab draws. Continue to montior Increased PPI to BID for GI proph on ASA/Brilinta at baseline Plan DVT proph: Lovenox SQ continued, PPI for GI proph Dispo: Referrals to [facility] and [facility] in place Admission and Anticipated Discharge Date Admission Date: March 24, 2024 Supervising Physician Co-Signing Physician Notes Attending Attestation - Chart reviewed, care plan d/w MICKI Tran. I agree w/ the real components of her documentation. POD #1 - s/p Fracture Reverse Left Shoulder Replacement with open biceps tenodesis - appreciate Dr Mulligan's assistance. mild acute blood loss anemia in setting of chronic anemia - 1 gram drop overnight. repeat H/H in am. BPs noted to be low-normal today -- low threshold for PRBCs. Demetrius Mancilla MD Subjective Patient seen and evaluated bedside. She reports some left shoulder/arm soreness, but pain is fairly controlled. She notes she experienced lightheadedness with ambulation earlier that resolved with rest, no further lightheadedness since then. She denies any headache, nausea, shortness of breath, chest pain, abdominal pain. She has been urinating without difficulty since surgery, but has not yet passed gas or had a bowel movement. Waiting on rehab placement. No additional complaints or concerns at this time. Physical Exam Physical Exam: General: No acute distress, nondiaphoretic, well-developed, well-nourished. Cardiac: Regular rate and rhythm without murmurs gallops or rubs. Pulm: Clear to auscultation bilaterally without wheezes, rales or rhonchi. No respiratory distress. 93% on room air. Abdominal: Soft, nontender, slightly distended. Bowel sounds hypoactive. Neuro: A&O x3. No focal neurological deficits. MSK: LUE in sling. Tender to palpation of left shoulder with guarding. Wiggles left fingers without difficulty. Sensation intact to fingers. Radial pulse present. Cap refill <3 seconds. Results & Data Results & Data Vital Signs (Past 12 Hours) Vital Signs Temp Pulse Resp BP Pulse Ox O2 Del Method 04/01/24 15:41 98.1 F 69 18 91/61 L 93 Room Air 04/01/24 11:56 97.9 F 74 18 104/60 94 Room Air 04/01/24 07:26 97.5 F L 70 16 110/66 93 Room Air Laboratory Results Reviewed CBC with differential Reviewed BMP, mag PG Care Time/CCT Total # of Minutes Spent Total Time Spent with Patient: Total time spent is greater than 50% in coordination of care (as documented) at patient's floor/unit and/or counseling patient: Coding Level of Care Code 31319 SUB INP/OBS CARE 235MIN Diagnoses Left humeral fracture S42.302A Hyperglycemia due to type 2 diabetes mellitus E11.65; Z79.4 Diabetes mellitus terminal makeup operator insulin use: with terminal makeup operator use Coronary artery disease involving [place] coronary artery of [place] heart, unspecified whether angina present I25.10 Associated angina: unspecified whether angina present Coronary Disease-Associated Artery/Lesion type: [place] artery [place] vs. transplanted heart: [place] heart Vitamin B12 deficiency E53.8 Vitamin D deficiency E55.9 Hypomagnesemia E83.42 Hypothyroidism, unspecified type E03.9 Hypothyroidism type: unspecified Iron deficiency E61.1 (2) Hyperglycemia due to type 2 diabetes mellitus Diabetes mellitus terminal makeup operator insulin use: with shelter use Qualified Code(s): E11.65 - Type 2 diabetes mellitus with hyperglycemia; Z79.4 - prison (current) use of insulin (3) CAD (coronary artery disease) Associated angina: unspecified whether angina present Coronary Disease- Associated Artery/Lesion type: [place] artery [place] vs. transplanted heart: [place] heart Qualified Code(s): I25.10 - Atherosclerotic heart disease of [place] coronary artery without angina pectoris (7) Hypothyroidism Hypothyroidism type: unspecified Qualified Code(s): E03.9 - Hypothyroidism, unspecified
[2024-04-02] MEDS: INSULIN ASPART PER UNIT CHARGE SC SCH (00:09)
[2024-04-02 08:43] LABS: Hematocrit (blood only) 25.1 % (37.0-47.0)
--- NOTE | 2024-04-02 09:17 | Orthopedic Progress Note ---
Date of Service April 02, 2024 Assessment & Plan (1) Fracture of head of humerus: POD 2 from left fracture reverse total shoulder replacement. -Continue sling left upper extremity. Please make sure it is fitting her appropriately and not sliding down her arm. Continue to work with -PT/OT -d/c planning: Per case management note on 04/01/2024, [facility] will have a bed for her early next week -Dressing can stay in place 7 days unless there is saturation or it is falling off. -Follow-up with Dr. Mulligan's clinic in 2 to 3 weeks. Subjective Operation Date: 03/31/24 13:10 Actual Procedures p Fracture Reverse Left Shoulder Replacement(Left) with open biceps tenodesis as a distinct and separate procedure (modifier 59)- Declan Mulligan, DO Postop day 2 from a left reverse shoulder replacement due to a left proximal humerus fracture. Patient is doing okay. States that she is having more pain than usual in her left shoulder.Per last case management note, patient was updated that [facility] will have a bed. This update was on either Friday or Friday, 04/01/2024. Review of Systems All systems reviewed & are unremarkable except as noted in HPI & below. Physical Exam General: Alert and oriented. In no acute distress. Left shoulder: I did readjust her sling at today's visit. She is neurovascularly intact in the left upper extremity. Her dressing check was satisfactory it is dry and intact. Results & Data Results & Data Laboratory Results . Diagnostic Findings . PG Care Time/CCT Total # of Minutes Spent Total Time Spent with Patient: Total time spent is greater than 50% in coordination of care (as documented) at patient's floor/unit and/or counseling patient: Coding Level of Care Code 02382 Post Operative Follow-Up Diagnoses Fracture of head of humerus S42.292A Encounter type: initial encounter Fracture type: closed Laterality: left (1) Fracture of head of humerus Encounter type: initial encounter Fracture type: closed Laterality: left Qualified Code(s): S42.292A - Other displaced fracture of upper end of left humerus, initial encounter for closed fracture
--- NOTE | 2024-04-02 13:42 | Pharmacy Report ---
Pharmacy Glycemic Short Note 2 - Date of Service April 02, 2024 - Glycemic Short BSG Results (Last 24 hours): 04/01/24 04/01/24 04/01/24 17:00 17:01 17:16 POC Glucose 59 L* 61 L* 66 L* 04/01/24 04/01/24 04/02/24 17:26 20:28 00:05 POC Glucose 73 208 H 208 H 04/02/24 04/02/24 04/02/24 04:05 07:41 11:44 POC Glucose 169 H 215 H 173 H OUTPATIENT ANTIDIABETIC REGIMEN: * Per patient: * Metformin 1000 mg PO BIDM * Semaglutide 7 mg PO daily * Glimepiride 4 mg PO daily HbA1c: 11.8% (03/24/24) ASSESSMENT: 04/02: * Patient received total of 49 units of insulin yesterday, of which 25 units were basal insulin * BSGs trending down last evening at dinner, hypoglycemic at 59 mg/dL therefore will loosen novolog today * Fasting BSG 215 mg/dL - will continue similar Lantus, will have scale for HS. Limited PO intake noted today 03/29/24: * Yolanda received 40 units of insulin yesterday (20 were bolus) * Fasting BSG this AM elevated, will increase basal this AM and allow for a 20% increase this evening if BSGs still elevated * Correction factor tightened due to BSGs persistently in the 200s, hesitant to adjust too much and cause hypoglycemia. Carbohydrate ratio tightened 2 days ago, consider tightening tomorrow if BSGs remain significantly elevated. * No glycemic stressors noted at this time. 03/26/24: * BSGs very labile yesterday, ranging 100-306 mg/dL * Received 34 units of insulin (15 units of basal and 19 units of prandial/correctional bolus) * Will still be conservative with insulin changes given prior documentation of hypoglycemia fearfulness * Overnight checks added per CDE recommendation 03/25/24: * LH is a 63 year old female admitted with left humerus fracture * History of T2DM, known to pharmacy glycemic service due to numerous consultations in the past * Patient was previously on insulin as an outpatient, but per patient this has now been discontinued * Patient prefers nonoperative management of fracture at this time- diet ordered PLAN FOR INPATIENT GLYCEMIC CONTROL: * Hold outpatient oral diabetes medications * Basal insulin * Lantus 20 units SC daily * Lantus 0-5 units HS * Bolus insulin * NovoLog per scale ACHS or Q6hrs while NPO * Goal Range: Low 120 mg/dL - High 180 mg/dL * Correction Factor: 25 mg/dL/unit * Nutritional / Prandial insulin per carb ratio of 1 unit per 10 grams CHO consumed
--- NOTE | 2024-04-02 18:21 | Hospitalist Progress Note ---
Date of Service April 02, 2024 Assessment & Plan (1) Left humeral fracture: Plan: Yolanda is a 63F with a PMHx of Diabetes, CAD status post stent placement, chronic hypomagnesemia, hypothyroidism who presents to the ER with shoulder pain and inability on ADLs. Patient was seen in the ER on 03/22 for mechanical fall resulting in a left proximal humerus fracture, was placed in a sling given p.o. oxycodone for home and instructed to have orthopedic follow-up. Patient did not go to any orthopedic follow-up appointment to presented to the ER for for ongoing discomfort not well controlled on oral medications and difficulty caring for herself (lives alone). No new trauma/injury since ER visit 03/22, no new numbness/tingling. #Left humerus fracture Xray on admission noted Acute fracture of the left humeral head and neck CT obtained given ongoing /worse pain on 03/28 and noted "Comminuted, impacted left humeral head/proximal shaft fracture. Inferior subluxation of the shoulder joint likely related to soft tissue swelling/small joint effusion" Ortho consulted Reverse left shoulder replacement on 03/31/[address] Mulligan. Defer to Ortho for activity level/restrictions postop Lightheadedness/hypotension postop, suspect secondary to acute blood loss anemia, pain meds Pain control being provided with Tylenol/Oxycodone, low dose morphine for breakthrough Last BM 03/31, now passing flatus postop PT/OT recommend rehab; referrals made but unfortunately no bed until after the weekend (2) Hyperglycemia due to type 2 diabetes mellitus: Plan: Elevated glucose 334 on admission A1c worse at 11.8 from prior 10.7 and on glimepiride, Januvia, metformin and PO semaglutide at baseline, held on admission Glycemic consulted and BSGs acceptable for A1c 11.8 and DM educator consulted Likely would benefit from once daily insulin at ca/ref to endocrinology at ca (3) Hypomagnesemia: Plan: Chronic lows, on mag oxide but also reported diarrhea, likely worsened mag loss Stopped mag oxide, placed on SLOW MAG BID and was low at 1.5 on 03/28 and increased PO to TID Refractory hypomagnesemia persist despite repletion. Ordered 24-hour urine magnesium, send out lab If renal wasting, recommend amiloride. Consider referral to nephrology outpatient (4) CAD (coronary artery disease): Plan: Status post stent placement and remains on ASA/Brilinta, Lipitor 80mg (5) Vitamin B12 deficiency: Plan: B12 checked w/ neuropathy/falls, on gabapentin 600mg BID at baseline--> B12 LOW 107. Has received IM x 3 inpatient, now transitioned to 1000mcg PO daily and should be continued at dc (6) Vitamin D deficiency: Plan: Vit D checked (to be on at baseline, not having) --> LOW 9.8, reports has NOT had this recently Started 125mcg PO -- encourage compliance in f/u, will need new rx at dc (7) Hypothyroidism: Plan: TSH upper limits of normal but in range and continues current home dosing (8) Iron deficiency: Plan: iron stores ok but ferritin low 39 and was given Venofer 200mg IV x 1 and started PO iron once daily. No bleeding reported (did order fecal occult prior but was not obtained but note could be falsely positive now that started on PO iron) Hgb remains low -- acute on chronic. Could be dilutional effect from IV fluids and iatrogenic from lab draws. Continue to montior Increased PPI to BID for GI proph on ASA/Brilinta at baseline Plan DVT proph: Lovenox SQ continued, PPI for GI proph Dispo: Referrals to [facility] in place; no bed availability at this time Admission and Anticipated Discharge Date Admission Date: March 24, 2024 Supervising Physician Co-Signing Physician Notes Attending Attestation - Chart reviewed, care plan d/w MICKI Tran. I agree w/ the real components of her documentation. POD #2 - s/p Fracture Reverse Left Shoulder Replacement with open biceps tenodesis - appreciate Dr Mulligan's assistance. mild acute blood loss anemia in setting of chronic anemia - 1 gram drop vangie- operatively. cont ferrous sulfate daily. Low-normal BPs yesterday are improved today. Dispo planning. Demetrius Mancilla MD Subjective Patient seen and evaluated at bedside. Continues to have some left shoulder/arm discomfort. She believes her nerve block is worn off. She does state that her pain regimen controls her pain well enough. She is now passing gas, though no bowel movement yet. Discussed that unfortunately it does not sound like rehab will have bed availability until early next week. She is understanding. No additional complaints or concerns at this time. Physical Exam Physical Exam: General: No acute distress, nondiaphoretic, well-developed, well-nourished. Cardiac: Regular rate and rhythm without murmurs gallops or rubs. Pulm: Clear to auscultation bilaterally without wheezes, rales or rhonchi. No respiratory distress. 93% on room air. Abdominal: Soft, nontender, slightly distended. Bowel sounds hypoactive. Neuro: A&O x3. No focal neurological deficits. MSK: LUE in sling. Tender to palpation of left shoulder with guarding. Wiggles left fingers without difficulty. Sensation intact to fingers. Radial pulse present. Cap refill <3 seconds. Results & Data Results & Data Vital Signs (Past 12 Hours) Vital Signs Temp Pulse Resp BP Pulse Ox O2 Del Method 04/02/24 15:07 98.2 F 91 H 16 118/67 95 Room Air 04/02/24 07:13 98.4 F 88 16 118/69 93 Room Air Laboratory Results Reviewed H&H, mag PG Care Time/CCT Total # of Minutes Spent Total Time Spent with Patient: Total time spent is greater than 50% in coordination of care (as documented) at patient's floor/unit and/or counseling patient: Coding Level of Care Code 79254 SUB INP/OBS CARE 235MIN Diagnoses Left humeral fracture S42.302A Hyperglycemia due to type 2 diabetes mellitus E11.65; Z79.4 Diabetes mellitus long term care social worker insulin use: with long term care social worker use Hypomagnesemia E83.42 Coronary artery disease involving [place] coronary artery of [place] heart, unspecified whether angina present I25.10 Associated angina: unspecified whether angina present Coronary Disease-Associated Artery/Lesion type: [place] artery [place] vs. transplanted heart: [place] heart Vitamin B12 deficiency E53.8 Vitamin D deficiency E55.9 Hypothyroidism, unspecified type E03.9 Hypothyroidism type: unspecified Iron deficiency E61.1 (2) Hyperglycemia due to type 2 diabetes mellitus Diabetes mellitus [facility] insulin use: with long term care social worker use Qualified Code(s): E11.65 - Type 2 diabetes mellitus with hyperglycemia; Z79.4 - [facility] (current) use of insulin (4) CAD (coronary artery disease) Associated angina: unspecified whether angina present Coronary Disease- Associated Artery/Lesion type: [place] artery [place] vs. transplanted heart: [place] heart Qualified Code(s): I25.10 - Atherosclerotic heart disease of [place] coronary artery without angina pectoris (7) Hypothyroidism Hypothyroidism type: unspecified Qualified Code(s): E03.9 - Hypothyroidism, unspecified
[2024-04-03] MEDS: POLYETHYLENE (MIRALAX) 17 GM PACK PO PRN (05:03)
--- NOTE | 2024-04-03 17:34 | Hospitalist Progress Note ---
Date of Service April 03, 2024 Assessment & Plan (1) Left humeral fracture: Plan: Yolanda is a 63F with a PMHx of Diabetes, CAD status post stent placement, chronic hypomagnesemia, hypothyroidism who presents to the ER with shoulder pain and inability on ADLs. Patient was seen in the ER on 03/22 for mechanical fall resulting in a left proximal humerus fracture, was placed in a sling given p.o. oxycodone for home and instructed to have orthopedic follow-up. Patient did not go to any orthopedic follow-up appointment to presented to the ER for for ongoing discomfort not well controlled on oral medications and difficulty caring for herself (lives alone). No new trauma/injury since ER visit 03/22, no new numbness/tingling. #Left humerus fracture Xray on admission noted Acute fracture of the left humeral head and neck CT obtained given ongoing /worse pain on 03/28 and noted "Comminuted, impacted left humeral head/proximal shaft fracture. Inferior subluxation of the shoulder joint likely related to soft tissue swelling/small joint effusion" Ortho consulted Reverse left shoulder replacement on 03/31/[address] Mulligan. Defer to Ortho for activity level/restrictions postop Lightheadedness/hypotension postop, suspect secondary to acute blood loss anemia, pain meds Pain control being provided with Tylenol/Oxycodone, low dose morphine for breakthrough Last BM 03/31, now passing flatus postop MiraLAX available PRN; Dulcolax x 1 ordered 04/03 PT/OT recommend rehab; referrals made but unfortunately no bed until after the weekend (2) Hyperglycemia due to type 2 diabetes mellitus: Plan: Elevated glucose 334 on admission A1c worse at 11.8 from prior 10.7 and on glimepiride, Januvia, metformin and PO semaglutide at baseline, held on admission Glycemic consulted and BSGs acceptable for A1c 11.8 and DM educator consulted Likely would benefit from once daily insulin at mi/ref to endocrinology at mi (3) Hypomagnesemia: Plan: Chronic lows, on mag oxide but also reported diarrhea, likely worsened mag loss Stopped mag oxide, placed on SLOW MAG BID and was low at 1.5 on 03/28 and increased PO to TID Refractory hypomagnesemia persist despite repletion. Ordered 24-hour urine magnesium, send out lab If renal wasting, recommend amiloride. Consider referral to nephrology outpatient (4) CAD (coronary artery disease): Plan: Status post stent placement and remains on ASA/Brilinta, Lipitor 80mg (5) Vitamin B12 deficiency: Plan: B12 checked w/ neuropathy/falls, on gabapentin 600mg BID at baseline--> B12 LOW 107. Has received IM x 3 inpatient, now transitioned to 1000mcg PO daily and should be continued at mi (6) Vitamin D deficiency: Plan: Vit D checked (to be on at baseline, not having) --> LOW 9.8, reports has NOT had this recently Started 125mcg PO -- encourage compliance in f/u, will need new rx at mi (7) Hypothyroidism: Plan: TSH upper limits of normal but in range and continues current home dosing (8) Iron deficiency: Plan: iron stores ok but ferritin low 39 and was given Venofer 200mg IV x 1 and started PO iron once daily. No bleeding reported (did order fecal occult prior but was not obtained but note could be falsely positive now that started on PO iron) Hgb remains low -- acute on chronic. Could be dilutional effect from IV fluids and iatrogenic from lab draws. Continue to montior Increased PPI to BID for GI proph on ASA/Brilinta at baseline Plan DVT proph: Lovenox SQ continued, PPI for GI proph Dispo: Accepted at [facility], no bed availability at this time. Anticipate bed availability early upcoming week Admission and Anticipated Discharge Date Admission Date: March 24, 2024 Supervising Physician Co-Signing Physician Notes Attending Attestation - Chart reviewed, care plan d/w MICKI Tran. I agree w/ the real components of her documentation. POD #3 - s/p Fracture Reverse Left Shoulder Replacement with open biceps tenodesis - appreciate Dr Mulligan's assistance. Consider additional IV iron for her iron deficiency anemia. Dispo planning. Demetrius Mancilla MD Subjective Patient seen and evaluated bedside. She reports some soreness still in her left upper extremity, but denies significant pain, numbness, or tingling. She reports she is passing gas but has not yet had a bowel movement; she believes that she is constipated. We discussed that she will remain inpatient until a bed becomes available at [facility], hopefully early this upcoming week. No additional complaints or concerns at this time. Physical Exam Physical Exam: General: No acute distress, nondiaphoretic, well-developed, well-nourished. Cardiac: Regular rate and rhythm without murmurs gallops or rubs. Pulm: Clear to auscultation bilaterally without wheezes, rales or rhonchi. No respiratory distress. 97% on room air. Abdominal: Soft, nontender, slightly distended. Bowel sounds active. Neuro: A&O x3. No focal neurological deficits. MSK: LUE in sling. Tender to palpation of left shoulder with guarding. Wiggles left fingers without difficulty. Sensation intact to fingers. Radial pulse present. Cap refill <3 seconds. Results & Data Results & Data Vital Signs (Past 12 Hours) Vital Signs Temp Pulse Resp BP Pulse Ox O2 Del Method 04/03/24 14:51 97.9 F 79 16 104/67 97 Room Air 04/03/24 07:38 98.1 F 91 H 18 146/88 H 94 Room Air 04/03/24 07:30 Room Air PG Care Time/CCT Total # of Minutes Spent Total Time Spent with Patient: Total time spent is greater than 50% in coordination of care (as documented) at patient's floor/unit and/or counseling patient: Coding Level of Care Code 76133 SUB INP/OBS CARE 2/35MIN Diagnoses Left humeral fracture S42.302A Hyperglycemia due to type 2 diabetes mellitus E11.65; Z79.4 Diabetes mellitus pen[facility]ent[facility] insulin use: with superintendent marine oil terminal use Hypomagnesemia E83.42 Coronary artery disease involving [place] coronary artery of [place] heart, unspecified whether angina present I25.10 Associated angina: unspecified whether angina present Coronary Disease-Associated Artery/Lesion type: [place] artery [place] vs. transplanted heart: [place] heart Vitamin B12 deficiency E53.8 Vitamin D deficiency E55.9 Hypothyroidism, unspecified type E03.9 Hypothyroidism type: unspecified Iron deficiency E61.1 (2) Hyperglycemia due to type 2 diabetes mellitus Diabetes mellitus superintendent marine oil terminal insulin use: with superintendent marine oil terminal use Qualified Code(s): E11.65 - Type 2 diabetes mellitus with hyperglycemia; Z79.4 - [facility] (current) use of insulin (4) CAD (coronary artery disease) Associated angina: unspecified whether angina present Coronary Disease- Associated Artery/Lesion type: [place] artery [place] vs. transplanted heart: [place] heart Qualified Code(s): I25.10 - Atherosclerotic heart disease of [place] coronary artery without angina pectoris (7) Hypothyroidism Hypothyroidism type: unspecified Qualified Code(s): E03.9 - Hypothyroidism, unspecified
[2024-04-03] MEDS: bisacodyL 5 MG TABEC PO ONE (17:45)
[2024-04-04] MEDS: DOCUSATE SODIUM 100 MG CAP PO ONE (11:20)
[2024-04-04 15:13] VITALS: RESP 18
--- NOTE | 2024-04-04 19:03 | Hospitalist Progress Note ---
Date of Service April 04, 2024 Assessment & Plan (1) Left humeral fracture: Plan: Yolanda is a 63F with a PMHx of Diabetes, CAD status post stent placement, chronic hypomagnesemia, hypothyroidism who presents to the ER with shoulder pain and inability on ADLs. Patient was seen in the ER on 03/22 for mechanical fall resulting in a left proximal humerus fracture, was placed in a sling given p.o. oxycodone for home and instructed to have orthopedic follow-up. Patient did not go to any orthopedic follow-up appointment to presented to the ER for for ongoing discomfort not well controlled on oral medications and difficulty caring for herself (lives alone). No new trauma/injury since ER visit 03/22, no new numbness/tingling. #Left humerus fracture Xray on admission noted Acute fracture of the left humeral head and neck CT obtained given ongoing /worse pain on 03/28 and noted "Comminuted, impacted left humeral head/proximal shaft fracture. Inferior subluxation of the shoulder joint likely related to soft tissue swelling/small joint effusion" Ortho consulted Reverse left shoulder replacement on 03/31/[address] Mulligan. Defer to Ortho for activity level/restrictions postop Lightheadedness/hypotension postop, suspect secondary to acute blood loss anemia, pain meds Pain control being provided with Tylenol/Oxycodone, low dose morphine for breakthrough Last BM 03/31, now passing flatus postop and having small BMs Continue docusate BID, MiraLAX available PRN PT/OT recommend rehab; referrals made but unfortunately no bed until after the weekend (2) Hyperglycemia due to type 2 diabetes mellitus: Plan: Elevated glucose 334 on admission A1c worse at 11.8 from prior 10.7 and on glimepiride, Januvia, metformin and PO semaglutide at baseline, held on admission Glycemic consulted and BSGs acceptable for A1c 11.8 and DM educator consulted Likely would benefit from once daily insulin at ms/ref to endocrinology at ms (3) Hypomagnesemia: Plan: Chronic lows, on mag oxide but also reported diarrhea, likely worsened mag loss Stopped mag oxide, placed on SLOW MAG BID and was low at 1.5 on 03/28 and increased PO to TID Refractory hypomagnesemia persist despite repletion. Ordered 24-hour urine magnesium, send out lab If renal wasting, recommend amiloride. Consider referral to nephrology outpatient (4) CAD (coronary artery disease): Plan: Status post stent placement and remains on ASA/Brilinta, Lipitor 80mg (5) Vitamin B12 deficiency: Plan: B12 checked w/ neuropathy/falls, on gabapentin 600mg BID at baseline--> B12 LOW 107. Has received IM x 3 inpatient, now transitioned to 1000mcg PO daily and should be continued at dc (6) Vitamin D deficiency: Plan: Vit D checked (to be on at baseline, not having) --> LOW 9.8, reports has NOT had this recently Started 125mcg PO -- encourage compliance in f/u, will need new rx at dc (7) Hypothyroidism: Plan: TSH upper limits of normal but in range and continues current home dosing (8) Iron deficiency: Plan: iron stores ok but ferritin low 39 and was given Venofer 200mg IV x 1 and started PO iron once daily. No bleeding reported (did order fecal occult prior but was not obtained but note could be falsely positive now that started on PO iron) Hgb remains low -- acute on chronic. Could be dilutional effect from IV fluids and iatrogenic from lab draws. Continue to montior Increased PPI to BID for GI proph on ASA/Brilinta at baseline Plan DVT proph: Lovenox SQ continued, PPI for GI proph Dispo: [facility] at [facility], no bed availability at this time. Anticipate bed availability early upcoming week Admission and Anticipated Discharge Date Admission Date: March 24, 2024 Supervising Physician Co-Signing Physician Notes Attending Attestation - Chart reviewed, care plan d/w MICKI Tran. I agree w/ the real components of her documentation. POD #4 - s/p Fracture Reverse Left Shoulder Replacement with open biceps tenodesis - appreciate Dr Mulligan's assistance. Given her anemia recheck a CBC in am tomorrow. Demetrius Mancilla MD Subjective Patient seen and evaluated at bedside. She reports that her left shoulder pain is controlled with medication. She reports her LUE is sore at rest and 6/10 pain with movement/activity. She reports some small BMs today but still feels somewhat constipated. Encouraged patient to take MiraLAX. Continue inpatient stay while awaiting rehab placement. No additional complaints or concerns at this time. Physical Exam Physical Exam: General: No acute distress, nondiaphoretic, well-developed, well-nourished. Cardiac: Regular rate and rhythm without murmurs gallops or rubs. Pulm: Clear to auscultation bilaterally without wheezes, rales or rhonchi. No respiratory distress. 97% on room air. Abdominal: Soft, nontender, slightly distended. Bowel sounds active. Neuro: A&O x3. No focal neurological deficits. MSK: LUE in sling. Wiggles left fingers without difficulty. Sensation intact to fingers. Radial pulse present. Cap refill <3 seconds. Results & Data Results & Data Vital Signs (Past 12 Hours) Vital Signs Temp Pulse Pulse Resp BP Pulse Ox O2 Del Method 04/04/24 15:11 97.9 F 59 L 18 97/63 L 97 Room Air 04/04/24 11:25 98.1 F 67 67 14 100/59 L 93 Room Air PG Care Time/CCT Total # of Minutes Spent Total Time Spent with Patient: Total time spent is greater than 50% in coordination of care (as documented) at patient's floor/unit and/or counseling patient: Coding Level of Care Code 51648 SUB INP/OBS CARE 03/13MIN Diagnoses Left humeral fracture S42.302A Hyperglycemia due to type 2 diabetes mellitus E11.65; Z79.4 Diabetes mellitus director long term care insulin use: with director long term care use Hypomagnesemia E83.42 Coronary artery disease involving [place] coronary artery of stebbins heart, unspecified whether angina present I25.10 Associated angina: unspecified whether angina present Coronary Disease-Associated Artery/Lesion type: stebbins artery [place] vs. transplanted heart: stebbins heart Vitamin B12 deficiency E53.8 Vitamin D deficiency E55.9 Hypothyroidism, unspecified type E03.9 Hypothyroidism type: unspecified Iron deficiency E61.1 (2) Hyperglycemia due to type 2 diabetes mellitus Diabetes mellitus intermediate insulin use: with intermediate use Qualified Code(s): E11.65 - Type 2 diabetes mellitus with hyperglycemia; Z79.4 - skilled nursing (current) use of insulin (4) CAD (coronary artery disease) Associated angina: unspecified whether angina present Coronary Disease- Associated Artery/Lesion type: [place]ebbins artery [place] vs. transplanted heart: stebbins heart Qualified Code(s): I25.10 - Atherosclerotic heart disease of [place] coronary artery without angina pectoris (7) Hypothyroidism Hypothyroidism type: unspecified Qualified Code(s): E03.9 - Hypothyroidism, unspecified
[2024-04-04 19:17] VITALS: O2SAT 95
[2024-04-05 07:41] VITALS: BP 115/67; PULSE 79; TEMP 98.1
[2024-04-05 07:59] LABS: Hematocrit (blood only) 25.4 % (37.0-47.0); Mean Corpuscular Hemoglobin 27.3 pg (25.0-34.0); Mean Corpuscular Hgb Conc 31.5 g/dL (32.0-36.0); Mean Corpuscular Volume 86.7 fL (80.0-100.0); Mean Platelet Volume 9.5 fL (9.4-12.4); Platelet Count 414 K/uL (130-400); RDW Coefficient of Variation 13.9 % (11.5-14.5); RDW Standard Deviation 43.8 fL (36.4-46.3); Red Blood Count 2.93 M/uL (4.20-5.40); White Blood Count 8.61 K/ul (4.8-10.8)
[2024-04-05 08:09] LABS: BUN Creatinine Ratio 17.1 (10-20); Calcium 8.4 mg/dl (8.6-10.3); Creatinine Clr Calc Pharmacy 66.9 ml/min; Magnesium 1.6 mg/dl (1.7-2.4); Potassium 3.8 mmol/L (3.5-5.1)
--- NOTE | 2024-04-05 13:20 | Pharmacy Report ---
Pharmacy Glycemic Short Note 2 - Date of Service April 05, 2024 - Glycemic Short BSG Results (Last 24 hours): 04/04/24 04/04/24 04/05/24 16:32 20:51 00:24 Glucose POC Glucose 136 H 108 H 102 H 04/05/24 04/05/24 04/05/24 04:47 07:22 11:50 Glucose 131 H POC Glucose 149 H 169 H OUTPATIENT ANTIDIABETIC REGIMEN: * Per patient: * Metformin 1000 mg PO BIDM * Semaglutide 7 mg PO daily * Glimepiride 4 mg PO daily HbA1c: 11.8% (03/24/24) ASSESSMENT: 04/05/24: * Blood sugars mostly well-controlled yesterday with second day of increased basal insulin * Do not anticipate any changes to glycemic regimen today * Patient awaiting placement * Keeping overnight checks on board per patient preference 04/02: * Patient received total of 49 units of insulin yesterday, of which 25 units were basal insulin * BSGs trending down last evening at dinner, hypoglycemic at 59 mg/dL therefore will loosen novolog today * Fasting BSG 215 mg/dL - will continue similar Lantus, will have scale for HS. Limited PO intake noted today 03/29/24: * Yolanda received 40 units of insulin yesterday (20 were bolus) * Fasting BSG this AM elevated, will increase basal this AM and allow for a 20% increase this evening if BSGs still elevated * Correction factor tightened due to BSGs persistently in the 200s, hesitant to adjust too much and cause hypoglycemia. Carbohydrate ratio tightened 2 days ago, consider tightening tomorrow if BSGs remain significantly elevated. * No glycemic stressors noted at this time. 03/26/24: * BSGs very labile yesterday, ranging 100-306 mg/dL * Received 34 units of insulin (15 units of basal and 19 units of prandial/correctional bolus) * Will still be conservative with insulin changes given prior documentation of hypoglycemia fearfulness * Overnight checks added per CDE recommendation 03/25/24: * LH is a 63 year old female admitted with left humerus fracture * History of T2DM, known to pharmacy glycemic service due to numerous consultations in the past * Patient was previously on insulin as an outpatient, but per patient this has now been discontinued * Patient prefers nonoperative management of fracture at this time- diet ordered PLAN FOR INPATIENT GLYCEMIC CONTROL: * Hold outpatient oral diabetes medications * Basal insulin * Lantus 20 units SC daily * Bolus insulin * NovoLog per scale ACHS or Q6hrs while NPO * Goal Range: Low 120 mg/dL - High 180 mg/dL * Correction Factor: 25 mg/dL/unit * Nutritional / Prandial insulin per carb ratio of 1 unit per 10 grams CHO consumed
--- NOTE | 2024-04-05 16:32 | Discharge Summary ---
Discharge Summary Date of Service April 05, 2024 Principal Dx & Hospital Course #1 = Principal Diagnosis (1) Left humeral fracture: Yolanda is a 63F with a PMHx of Diabetes, CAD status post stent placement, chronic hypomagnesemia, hypothyroidism who presents to the ER with shoulder pain and inability on ADLs. Patient was seen in the ER on 03/22 for mechanical fall resulting in a left proximal humerus fracture, was placed in a sling given p.o. oxycodone for home and instructed to have orthopedic follow-up. Patient did not go to any orthopedic follow-up appointment to presented to the ER for for ongoing discomfort not well controlled on oral medications and difficulty caring for herself (lives alone). No new trauma/injury since ER visit 03/22, no new numbness/tingling. #Left humerus fracture Xray on admission noted Acute fracture of the left humeral head and neck CT obtained given ongoing /worse pain on 03/28 and noted "Comminuted, impacted left humeral head/proximal shaft fracture. Inferior subluxation of the shoulder joint likely related to soft tissue swelling/small joint effusion" Ortho consulted Reverse left shoulder replacement on 03/31/[address] Mulligan. Defer to Ortho for activity level/restrictions postop Pain regimen with Tylenol for mild pain, Oxycodone 5-10 mg PO q4h prn mod-severe pain Continue docusate BID, MiraLAX available PRN -- passed gas and had small BMs postop PT/OT recommended rehab Discharged to [facility] 04/05 (2) Hyperglycemia due to type 2 diabetes mellitus: Elevated glucose 334 on admission A1c worse at 11.8 from prior 10.7 and on glimepiride, Januvia, metformin and PO semaglutide at baseline, held on admission Glycemic consulted and BSGs acceptable for A1c 11.8 and DM educator consulted Discharged on Lantus insulin 20 units daily -- adjust regimen as needed outpatient (3) Hypomagnesemia: Chronic lows, on mag oxide but also reported diarrhea, likely worsened mag loss Stopped mag oxide, and started/continued on Slow Mag TID Refractory hypomagnesemia persist despite repletion. Ordered 24-hour urine magnesium, send out lab -- defer to PCP to f/u on results If renal wasting, recommend amiloride. Consider referral to nephrology outpatient (4) CAD (coronary artery disease): Status post stent placement and remains on ASA/Brilinta, Lipitor 80mg (5) Vitamin B12 deficiency: B12 checked w/ neuropathy/falls, on gabapentin 600mg BID at baseline--> B12 LOW 107. Has received IM x 3 inpatient, transitioned to/continued on 1000mcg PO daily (6) Vitamin D deficiency: Vit D checked (to be on at baseline, not having) --> LOW 9.8, reports has NOT had this recently Started/continued 125mcg PO (7) Hypothyroidism: TSH upper limits of normal but in range and continues current home dosing (8) Iron deficiency: iron stores ok but ferritin low 39 and was given Venofer 200mg IV x 1 and started PO iron once daily. No bleeding reported (did order fecal occult prior but was not obtained but note could be falsely positive now that started on PO iron) Hgb remains low but stable -- acute on chronic Plan DVT proph: Lovenox SQ continued, PPI for GI proph Dispo: Discharged to [facility] 04/05 Notes For Next Care Provider Monitor blood sugar and adjust regimen as needed -- discharged on Lantus insulin 20 units daily Follow-up on 24 hour urine magnesium -- if renal wasting, recommend amiloride Medication Changes From Visit Started the following: Vitamin B12 daily Docusate twice daily Lovenox 40 mg daily Ferrous sulfate daily Lantus insulin 20 units daily SlowMag 3 times daily Pantoprazole twice daily Held the following: Diabetic oral meds Admission HPI Per Admitting Provider Yolanda is a 63F with a PMHx of Diabetes, CAD status post stent placement, chronic hypomagnesemia, hypothyroidism who presents to the ER with shoulder pain and inability on ADLs. Patient was seen in the ER on 03/22 for mechanical fall resulting in a left proximal humerus fracture, was placed in a sling given p.o. oxycodone for home and instructed to have orthopedic follow-up. Patient did not go to any orthopedic follow-up appointment to presents to the ER instead. Poor appetite last few days. One episode of diarrhea yesterday, but this is not out of the ordinary for her. Reports pain in her arm, has been taking Advil and oxycodone at home. Pain radiates down the arm, and reports numbness and tingling. Has not had ortho outpatient for this yet. Took her pills this morning. Checks BSG at home - normally run 300-400s. Discharge Exam General: No acute distress, nondiaphoretic, well-developed, well-nourished. Cardiac: Regular rate and rhythm without murmurs gallops or rubs. Pulm: Clear to auscultation bilaterally without wheezes, rales or rhonchi. No respiratory distress. 95% on room air. Abdominal: Soft, nontender, slightly distended. Bowel sounds active. Neuro: A&O x3. No focal neurological deficits. MSK: LUE in sling. Wiggles left fingers without difficulty. Sensation intact to fingers. Radial pulse present. Cap refill <3 seconds. Discharge Plan Discharge Items Patient Disposition: Transfer Group Home Fac Reason For Visit: HUMERUS FRACTURE, PLACEMENT Discharge Diagnosis: Left humerus fracture s/p reverse left shoulder replacement on 03/31/2024 Condition on Discharge: Good Activity: Per Instructions section Non-emergency contact: Primary Care Provider and Surgeon Call non-emergency contact if: you have any medication questions, your symptoms worsen and your pain is not controlled Follow-up/Referrals: Jc Zaman, [Primary Care Provider] - (Follow-up in 1-2 weeks) Diet: Carb Consistent or DM2 Addtl Attending Provider Instructions: Yolanda, You were admitted to the hospital due to a left proximal humerus fracture that required surgical intervention. You had a reverse left shoulder replacement on 03/31/[address] Mulligan. You have recovered from surgery well and will continue to recover at rehab. Your magnesium levels were low so your medications were adjusted and your magnesium level has improved. Additionally, your blood sugars were very elevated. Your A1c was 11.8%, which means an average blood sugar of 292 for the past 90 days. Blood sugar control is very important both in long-term health, but also short term with recovery from surgery. Upon discharge from the hospital: * Follow the instructions from orthopedic surgery as listed below. * Take Lantus Insulin 20 units daily. Adjust regimen as needed with your providers. * Continue daily Lovenox injections for DVT prophylaxis. * Follow other medication orders as prescribed. It was a pleasure taking care of you while you were in the hospital! Addtl Legal Document Specialist Provider Instructions: Activity and Therapy Recommendations: * Start therapy next week * Wear your sling for 3 weeks, unless otherwise instructed. You may remove your sling to shower and to dress, but otherwise, you should be in your sling at all times, including while sleeping * The shoulder replacement is very stable and you can use your hand while in the sling * You were shown a series of exercises in the hospital. Do these exercises daily including the exercises you were shown in physical therapy. Medications: * Narcotic You will likely be sent home from the hospital with a prescription for the narcotic pain medication that worked best throughout your stay. * Cefadroxil -take the antibiotic twice a day for 10 days to help prevent infection. * Other medications may be prescribed for specific circumstances. If you have any questions, please call the office at . * Resume previous home medications unless otherwise instructed Dressing Care: Leave the Silverlon dressing in place for 7 days. After 7 days you may remove the dressing. If the incision is not draining then you may leave the rere open to air. If there is a little bit of drainage or if the rere are getting stuck on your clothing then cover the incision with a dry dressing. The rere will be removed at your 2 week follow-up appointment. Showering: You may shower with the Silverlon dressing in place. Do not let the shower spray hit the dressing directly. Pat the Silverlon dressing dry. If the dressing becomes wet underneath, then simply remove the dressing. Keep the incision dry until you are 7 days out from the day of surgery. After 7 days you may remove the Silverlon dressing and shower with the rere exposed. Let soapy water run over the rere and pat them dry. Do not scrub or soak the incision. Diet: You may resume your previous diet. Things To Watch For: * Drainage from the incision site that occurs more than one week after your surgery. * Increased redness at the incision site. * Fever above 102 degrees Fahrenheit. * Unusual chest pain or shortness of breath. * Call [facility] at with any of the above problems Follow-Up Visit: Follow-up with Dr. Mulligan's office 2-3 weeks after your day of surgery. We will remove your rere and answer any questions. Please call the office to set up an appointment for a time that works for you. More detailed instructions as well as Frequently Asked Questions were provided in a folder by our office when you signed-up for surgery. Please review these instructions when you get home. If you have any further questions or concerns, please feel free to call the office at [phone] Pending Studies at Discharge: No Stand-Alone Forms: My [facility] Skilled Items Patient informed of condition?: Yes DNR: No Discharge Level of Care: Acute rehab Communicable Disease: No Discharge Prognosis: Stable Lines: None Urinary Catheter: No Medications and DC Order Prescriptions: New enoxaparin [Lovenox] 40 mg/0.4 mL Syringe 40 mg subcut QAM Qty: 4 0RF ferrous sulfate 325 mg (65 mg iron) Tablet,Delayed Release (Dr/Ec) 325 mg PO QAM Qty: 30 0RF oxycodone 5 mg Tablet 5 - 10 mg PO Q4H PRN (Reason: moderate-severe pain) Qty: 20 0RF insulin glargine [Lantus U-100 Insulin] 100 unit/mL Solution 20 unit subcut DAILY Qty: 10 0RF pantoprazole 40 mg Tablet,Delayed Release (Dr/Ec) 40 mg PO BID Qty: 30 0RF docusate sodium 100 mg Capsule 100 mg PO BID Qty: 30 0RF magnesium chloride [Mag 64] 64 mg Tablet,Delayed Release (Dr/Ec) 64 mg PO TID Qty: 90 0RF cyanocobalamin (vitamin B-12) 500 mcg Tablet 1,000 mcg PO QAM Qty: 30 0RF Continued folic acid 1 mg tablet 1 mg PO QAM Qty: 90 3RF bupropion HCl 150 mg tablet extended release 24 hr 150 mg PO QAM 90 Days Qty: 90 3RF (DME) pen needle, diabetic [BD Ultra-Fine Cary Pen Needle] 32 gauge x 5/32" needle See Dose Instructions .ROUTE .MEDSUPPLY Qty: 200 11RF Dose Instruction: As directed Rx Instructions: use 2 times daily or as directed by physician to monitor blood sugar gabapentin 300 mg capsule 600 mg PO BID Qty: 60 6RF atorvastatin 80 mg tablet 80 mg PO HS Qty: 90 3RF Brilinta 90 mg tablet 90 mg PO BID Qty: 60 3RF (DME) blood-glucose meter [[employer]ix Autocode Meter] Kit See Rx Instructions .Route Rx Instructions: As directed escitalopram oxalate 20 mg tablet 20 mg PO QAM Qty: 30 0RF aspirin 81 mg Tablet,Delayed Release (Dr/Ec) 81 mg PO QAM Qty: 30 0RF Rx Instructions: Over the counter diclofenac sodium [Voltaren Arthritis Pain] 1 % gel 2 g EXT QID PRN (Reason: Pain) levothyroxine 88 mcg tablet 88 mcg PO DAILYBB polyethylene glycol 3350 [Miralax] 17 gram powder in packet 17 g PO DAILY PRN (Reason: Constipation) meclizine 12.5 mg tablet 12.5 mg PO TID PRN (Reason: Dizziness) famotidine 20 mg tablet 20 mg PO DAILY PRN (Reason: Acid Reflux) Qty: 0 0RF tramadol 50 mg tablet 50 mg PO Q6H PRN (Reason: Pain) Rx Instructions: needs to refill at present cholecalciferol (vitamin D3) 25 mcg (1,000 unit) Capsule 25 mcg PO QAM Qty: 0 0RF oxycodone 5 mg tablet 5 mg PO Q6H PRN (Reason: pain) Qty: 10 0RF Held metformin 500 mg tablet extended release 24 hr 1,000 mg PO BID Qty: 360 3RF Hold Instructions: Provider's Order Januvia 100 mg tablet 100 mg PO QAM Hold Instructions: Provider's Order semaglutide 7 mg tablet 7 mg PO QAM Hold Instructions: Provider's Order Discontinued glimepiride 2 mg tablet 4 mg PO QAM Rx Instructions: 4 mg po qam magnesium oxide 400 mg (241.3 mg magnesium) tablet 1,200 mg PO QAM Discharge Orders: Discharge Order (Routine); Ordered 04/05/24 Ordered By: Emma Tran Admission Data Admit Date/Time: 03/24/24 17:38 Attending Provider: Demetrius Mancilla Admit Provider: Demetrius Fair Primary Care Provider: Jc Zaman Other Providers: [facility]; Declan Mulligan Other Interventions: Discharge Summary Assessment (RN) Last Done: 04/05/24 13:59 Hospital Stay Data Consultations 03/24/24 16:20 ED Decision to Admit Stat 03/25/24 08:54 Consult Orthopedic Surgery Routine Procedures Performed Operation Date: 03/31/24 13:10 Actual Procedures p Fracture Reverse Left Shoulder Replacement(Left) - Declan A Isaak, DO Diagnostic Imagining Performed 03/28/24 11:01 CT humerus LT w con Routine CT shoulder LT w con Routine 03/31/24 14:26 US - OR guided needle placemen Routine Pending Results Patient Have Any Pending Studies at Discharge: No Discharge Instructions Given to Patient (Per Discharging Provider) Blaine Guerrero were admitted to the hospital due to a left proximal humerus fracture that required surgical intervention. You had a reverse left shoulder replacement on 03/31/[address] Mulligan. You have recovered from surgery well and will continue to recover at rehab. Your magnesium levels were low so your medications were adjusted and your magnesium level has improved. Additionally, your blood sugars were very elevated. Your A1c was 11.8%, which means an average blood sugar of 292 for the past 90 days. Blood sugar control is very important both in long-term health, but also short term with recovery from surgery. Upon discharge from the hospital: * Follow the instructions from orthopedic surgery as listed below. * Take Lantus Insulin 20 units daily. Adjust regimen as needed with your providers. * Continue daily Lovenox injections for DVT prophylaxis. * Follow other medication orders as prescribed. It was a pleasure taking care of you while you were in the hospital! Supervising Physician Co-Signing Physician Notes Attending Attestation and Discharge Note: Chart reviewed, discharge care plan d/w MICKI Tran. I agree w/ the real components of her discharge documentation. Of note - I did not perform a bedside visit or physical exam on day of discharge. 63yo female with h/o uncontrolled type 2 diabetes, CAD status post stent placement, chronic hypomagnesemia, hypothyroidism who presented to the ER with left shoulder pain and difficulty performing ADLs. She had been dx with a left humerus head fracture on 03/22/24 after suffering a fall. She had been in a sling for immobilization since that initial ER visit on 03/22/24. She came back to the hospital because of the pain & difficulty doing normal activities at home. Upon admission she initially told the hospitalist & orthopedic teams that she wanted nonoperative Rx. However, later in the stay she changed her mind, instead opting for surgical intervention. Thus, on 03/31/24, she underwent Reverse Left Shoulder Replacement with open biceps tenodesis by Dr Declan Mulligan - [facility]. Stay was complicated by acute/chronic anemia. Discharge hemoglobin was 8. Baseline hemoglobin about 10-11. She does have iron deficiency based on Fe studies and received a dose of IV venofer while here. She was asked to continue ferrous sulfate supplementation upon discharge. B12 level was also low at 107 and she will take oral B12 supplementation. Recommend 6 months minimum of oral B12. With respect to her glycemic control - her BSGs improved considerably while here with an intensive insulin regimen. Finally, for her chronic hypomagnesemia -- 24-hour urine collection for magnesium was obtained to rule out renal wasting. This was pending at discharge. She is transferring to SNF at discharge for rehab. Demetrius Mancilla MD Total Time Total Time Spent Total Time Spent (In Minutes): Greater than 30 minutes spent completing this discharge process including direct patient care, medication reconciliation, documentation, review of labs and images, and coordination of care. Coding Level of Care Code 52220 INP/OBS DISCH >30 MIN Diagnoses Left humeral fracture S42.302A Hyperglycemia due to type 2 diabetes mellitus E11.65; Z79.4 Diabetes mellitus shelter insulin use: with shelter use Hypomagnesemia E83.42 Coronary artery disease involving [place] coronary artery of [place] heart, unspecified whether angina present I25.10 Associated angina: unspecified whether angina present Coronary Disease-Associated Artery/Lesion type: [place] artery [place] vs. transplanted heart: [place] heart Vitamin B12 deficiency E53.8 Vitamin D deficiency E55.9 Hypothyroidism, unspecified type E03.9 Hypothyroidism type: unspecified Iron deficiency E61.1
== END 2024-04-05 14:59 | DRG 483 ==
LOC: ED 13:13 → 3W 17:38 → SUATTDRO 17:38 → 3W 19:33